=== PATIENT | male | born 1945 ===

== ENCOUNTER 2017-11-23 15:23 | Inpatient (IN) | payer MEDICARE, OTHER ==
--- NOTE | 2017-11-23 16:34 | RAD ---
Date of service: 11/23/2017 PROCEDURE: CHEST RADIOGRAPH, 1 VIEW HISTORY: Detox/Psy COMPARISON: None available. FINDINGS: LUNGS: Clear. PLEURA: No pneumothorax or pleural fluid seen. CARDIOVASCULAR: Atherosclerotic aortic calcifications. Cardiomediastinal silhouette enlarged. OSSEOUS STRUCTURES: Degenerative changes. VISUALIZED UPPER ABDOMEN: Normal. OTHER FINDINGS: None. IMPRESSION: No active disease.
--- NOTE | 2017-11-23 17:21 | C.PDOC ---
History Of Present Illness 72 y/o male,w/PMhx of dementia, brought to ER from shelter for evaluation of agitation. Patient denies having other complaints. Of note, HPI is limited because patient has dementia. Time Seen by Provider: 11/23/17 15:46 Chief Complaint (Nursing): Psychiatric Evaluation History Per: Patient History/Exam Limitations: clinical condition Onset/Duration Of Symptoms: Days Current Symptoms Are (Timing): Still Present Severity: Moderate Past Medical History Reviewed: Historical Data, Nursing Documentation, Vital Signs Vital Signs: Last Vital Signs Temp 97.6 F 11/23/17 16:14 Pulse 126 H 11/23/17 16:14 Resp 20 11/23/17 16:14 BP 98/71 L 11/23/17 16:14 Pulse Ox 100 11/23/17 18:14 - Medical History PMH: Anemia Surgical History: No Surg Hx Family History: States: No Known Family Hx - Social History Hx Alcohol Use: No Hx Substance Use: No - Immunization History Hx Tetanus Toxoid Vaccination: No Hx Influenza Vaccination: No Review Of Systems Review Of Systems: ROS cannot be obtained secondary to pt's inabilty to answer questions. Physical Exam - Physical Exam Appears: Other (alert, not oriented x3) Skin: Normal Color, Warm, Dry Head: Atraumatic, Normacephalic Eye(s): bilateral: Normal Inspection Nose: Normal Oral Mucosa: Moist Neck: Supple Chest: Symmetrical Cardiovascular: Rhythm Regular Respiratory: Normal Breath Sounds, No Rales, No Rhonchi, No Wheezing Gastrointestinal/Abdominal: Normal Exam, Soft, No Tenderness, No Guarding, No Rebound Neurological/Psych: Other (alert, not oriented x3) ED Course And Treatment - Laboratory Results Result Diagrams: 11/23/17 17:29 11/23/17 17:29 ECG: Interpreted By Me, Viewed By Me ECG Rhythm: Atrial Fibrillation Interpretation Of ECG: Afib with normal intervals, normal axises, and non- specific ST/ T wave changes Rate From EC O2 Sat by Pulse Oximetry: 100 (RA) Pulse Ox Interpretation: Normal - Radiology CXR: Interpreted by Me, Viewed By Me CXR Interpretation: Yes: No Acute Disease Medical Decision Making Medical Decision Making: Assessment: Aggressive Behavior Plan: --Labs --UA --EKG --CXR --CT- Head Disposition Discussed With : Reza Hernandes Doctor Will See Patient In The: Hospital Counseled Patient/Family Regarding: Studies Performed, Diagnosis - Disposition Disposition: HOSPITALIZED Disposition Time: 18:13 Condition: FAIR - Clinical Impression Clinical Impression: Change in mental status, UTI (urinary tract infection) - Scribe Statement The provider has reviewed the documentation as recorded by the Scribe Dharmesh Reddy Provider Attestation: All medical record entries made by the Scribe were at my direction and personally dictated by me. I have reviewed the chart and agree that the record accurately reflects my personal performance of the history, physical exam, medical decision making, and the department course for this patient. I have also personally directed, reviewed, and agree with the discharge instructions and disposition.
[2017-11-23 17:35] LABS: BASO # 0.1 K/uL (0.0-0.2); EOS # 0.1 K/uL (0.0-0.7); EOS % 1.7 % (0.0-4.0); HEMOGLOBIN 9.3 g/dL (12.0-18.0); LYMPH # 1.4 K/uL (1.0-4.3); LYMPH % 22.9 % (20.0-40.0); MEAN CELL VOLUME 86.1 fL (80.0-94.0); MEAN CORPUSCULAR HEMOGLOBIN 27.6 pg (27.0-31.0); MEAN PLATELET VOLUME 6.6 fL (7.2-11.7); MONO # 0.7 K/uL (0.0-0.8); MONO % 11.3 % (0.0-10.0); NEUT # 3.7 K/uL (1.8-7.0); NEUT % 63.1 % (50.0-75.0); NRBC % 0.1 % (0.0-2.0); RBC 3.39 Mil/uL (4.40-5.90); RED CELL DISTRIBUTION WIDTH 14.5 % (11.5-14.5); WHITE BLOOD COUNT 5.9 K/uL (4.8-10.8)
[2017-11-23 17:56] LABS: SQUAMOUS EPITHIAL 3 /hpf (0-5); URINE BILIRUBIN NEGATIVE (NEGATIVE); URINE BLOOD 2+ (NEGATIVE); URINE CLARITY Turbid (Clear); URINE COLOR Yellow (YELLOW); URINE GLUCOSE (UA) NORMAL (Normal); URINE LEUKOCYTE ESTERASE 3+ Leu/uL (Negative); URINE PROTEIN 2+ mg/dL (NEGATIVE); URINE UROBILINOGEN NORMAL mg/dL (0.2-1.0); WBC CLUMPS MANY /hpf
[2017-11-23 18:10] LABS: ALBUMIN 4.1 g/dL (3.5-5.0); ALT/SGPT 22 U/L (21-72); AST/SGOT 17 U/L (17-59); BLOOD UREA NITROGEN 77 mg/dL (9-20); CALCIUM 9.3 mg/dl (8.6-10.4); GFR AFRICAN-AMERICAN 16; GFR NON-AFRICAN AMERICAN 13
[2017-11-23 18:16] LABS: BARBITURATES, UR NEGATIVE (NEGATIVE); BENZODIAZEPINES, UR NEGATIVE (NEGATIVE); OPIATES, UR NEGATIVE (NEGATIVE); PHENCYCLIDINE, UR NEGATIVE (NEGATIVE)
--- NOTE | 2017-11-23 18:18 | CT ---
Date of service: 11/23/2017 PROCEDURE: CT HEAD WITHOUT CONTRAST. HISTORY: dizziness COMPARISON: None available. TECHNIQUE: Axial computed tomography images were obtained through the head/brain without intravenous contrast. Coronal and sagittal reconstructed images. Radiation dose: Total exam DLP = 1036.70 mGy-cm. This CT exam was performed using one or more of the following dose reduction techniques: Automated exposure control, adjustment of the mA and/or kV according to patient size, and/or use of iterative reconstruction technique. FINDINGS: HEMORRHAGE: No intracranial hemorrhage. BRAIN: No mass effect or edema. Cortical and cerebellar atrophy, periventricular small vessel disease. Small discrete infarcts 2 left cerebellar hemisphere, mesial temporal region on the left, internal capsule on the right. VENTRICLES: Unremarkable. No hydrocephalus. CALVARIUM: Unremarkable. PARANASAL SINUSES: Unremarkable as visualized. No significant inflammatory changes. MASTOID AIR CELLS: Unremarkable as visualized. No inflammatory changes. OTHER FINDINGS: None. IMPRESSION: No acute intracranial abnormalities. No significant findings to account for the clinical presentation. Additional benign and/or incidental findings described above.
[2017-11-23] MEDS ORDERED: Dextrose 50% SYRINGE Inj (50 ml) IV STA (18:23)
[2017-11-23] MEDS ORDERED: (Novolin R) Insulin Human Regular 100 units/ml vial IV ONE (18:23)
[2017-11-23] MEDS ORDERED: Calcium Gluconate 4.65 mEq/10 ml Inj IVP ONE (18:23)
[2017-11-23] MEDS ORDERED: Sod Polystyrene Sulf 15 gm/60 ml Susp PO ONE (18:23)
[2017-11-23] MEDS ORDERED: Calcium Gluconate 4.65 mEq/10 ml Inj ONE (18:50)
[2017-11-23] MEDS ORDERED: (Novolin R) Insulin Human Regular 100 units/ml vial ONE (18:50)
[2017-11-23] MEDS ORDERED: Dextrose 50% SYRINGE Inj (50 ml) ONE (18:51)
[2017-11-23] MEDS ORDERED: cefTRIAXone IV 1 gm in Dextros 50 ML IVPB ONE (18:58)
[2017-11-23] MEDS ORDERED: Sod Polystyrene Sulf 15 gm/60 ml Susp ONE (19:06)
--- NOTE | 2017-11-23 22:39 | CP.PCM.HP ---
Past Patient History - Past Social History Smoking Status: unknown - NEUROLOGICAL Other/Comment: AMS, Convulsions,Dementia - ENDOCRINE/METABOLIC Other/Comment: hyperglycemia, - HEMATOLOGICAL/ONCOLOGICAL Hx Anemia: Yes - PSYCHIATRIC Hx Substance Use: No - SURGICAL HISTORY Other/Comment: unable to obtain informations - ANESTHESIA Hx Anesthesia: No Hx Anesthesia Reactions: No Meds Allergies/Adverse Reactions: Allergies Allergy/AdvReac Type Severity Reaction Status Date / Time No Known Allergies Allergy Unverified 11/23/17 15:49 Results - Vital Signs Recent Vital Signs: Last Vital Signs Temp 36.3 F L 11/23/17 22:15 Pulse 86 11/23/17 22:15 Resp 18 11/23/17 22:15 BP 131/63 11/23/17 22:15 Pulse Ox 96 11/23/17 22:15 - Labs Result Diagrams: 11/23/17 17:29 11/23/17 17:29 Labs: Laboratory Results - last 24 hr 11/23/17 11/23/17 11/23/17 17:29 17:29 17:29 WBC 5.9 RBC 3.39 L Hgb 9.3 L Hct 29.2 L MCV 86.1 MCH 27.6 MCHC 32.0 L RDW 14.5 Plt Count 304 MPV 6.6 L Neut % (Auto) 63.1 Lymph % (Auto) 22.9 [place] % (Auto) 11.3 H Eos % (Auto) 1.7 Baso % (Auto) 1.0 Neut # (Auto) 3.7 Lymph # (Auto) 1.4 [place] # (Auto) 0.7 Eos # (Auto) 0.1 Baso # (Auto) 0.1 Sodium 140 Potassium 6.3 H* Chloride 107 Carbon Dioxide 17 L Anion Gap 23 H BUN 77 H Creatinine 4.5 H Est GFR ( Amer) 16 Est GFR (Non-Af Amer) 13 POC Glucose (mg/dL) Random Glucose 158 H Calcium 9.3 Total Bilirubin 0.4 AST 17 ALT 22 Alkaline Phosphatase 126 Troponin I 0.0120 Total Protein 8.3 Albumin 4.1 Globulin 4.2 H Albumin/Globulin Ratio 1.0 Urine Color Urine Clarity Urine pH Ur Specific [place] Urine Protein Urine Glucose (UA) Urine Ketones Urine Blood Urine Nitrate Urine Bilirubin Urine Urobilinogen Ur Leukocyte Esterase Urine WBC (Auto) Urine RBC (Auto) Urine WBC Clumps (Auto) Ur Squamous Epith Cells Urine Opiates Screen Urine Methadone Screen Ur Barbiturates Screen Valproic Acid 11.5 L Ur Phencyclidine Scrn Ur Amphetamines Screen U Benzodiazepines Scrn U Oth Cocaine Metabols U Cannabinoids Screen Alcohol, Quantitative < 10 11/23/17 11/23/17 11/23/17 17:48 17:48 19:30 WBC RBC Hgb Hct MCV MCH MCHC RDW Plt Count MPV Neut % (Auto) Lymph % (Auto) [place] % (Auto) Eos % (Auto) Baso % (Auto) Neut # (Auto) Lymph # (Auto) [place] # (Auto) Eos # (Auto) Baso # (Auto) Sodium Potassium Chloride Carbon Dioxide Anion Gap BUN Creatinine Est GFR ( Amer) Est GFR (Non-Af Amer) POC Glucose (mg/dL) 194 H Random Glucose Calcium Total Bilirubin AST ALT Alkaline Phosphatase Troponin I Total Protein Albumin Globulin Albumin/Globulin Ratio Urine Color Yellow Urine Clarity Turbid Urine pH 6.0 Ur Specific [place] 1.011 Urine Protein 2+ H Urine Glucose (UA) Normal Urine Ketones Negative Urine Blood 2+ H Urine Nitrate Negative Urine Bilirubin Negative Urine Urobilinogen Normal Ur Leukocyte Esterase 3+ H Urine WBC (Auto) 5922 H Urine RBC (Auto) 15 H Urine WBC Clumps (Auto) Many H Ur Squamous Epith Cells 3 Urine Opiates Screen Negative Urine Methadone Screen Negative Ur Barbiturates Screen Negative Valproic Acid Ur Phencyclidine Scrn Negative Ur Amphetamines Screen Negative U Benzodiazepines Scrn Negative U Oth Cocaine Metabols Negative U Cannabinoids Screen Negative Alcohol, Quantitative
[2017-11-24 00:57] LABS: ALBUMIN 4.1 g/dL (3.5-5.0); CALCIUM 9.4 mg/dl (8.6-10.4)
[2017-11-24] MEDS ORDERED: Enoxaparin 40 mg Syringe SC SCH (10:00)
--- NOTE | 2017-11-24 11:11 | PCM.PSYCH ---
Initial Psychiatric Evaluation - Initial Psychiatric Evaluation Type of Admission: Voluntary Legal Status: Capacity History of Present Illness and Precipitating Events: Patient is a 72 year old male that was brought to the hospital yesterday from the [facility] because of agitation. Psychiatry was consulted for patient's change in mental status. The patient was seen at bedside with a staff member who translated into Serbian. A mini mental status exam was attempted however the patient did not respond to the questions. The patient repeatedly kept asking for cigarettes in response to questioning. He is not oriented to place and time. The patient was not able to provide any history as a result. As per staff the patient has been agitated and irritated. He was not able to feed himself and is currently assigned to a one to one because of fall risk. The staff informed that the patient has a UTI and is being treated. Current Medications: Active Medications Generic Name Dose Route Start Last Admin Trade Name Freq PRN Reason Stop Dose Admin Diphenhydramine HCl 25 mg 11/24/17 02:19 Benadryl IVP Q8 PRN Agitation Heparin Sodium (Porcine) 5,000 units 11/24/17 10:00 11/24/17 10:40 Heparin SC 5,000 units Q12 NEL Administration Ceftriaxone Sodium 1 gm/ 100 mls @ 100 mls/hr 11/24/17 10:00 11/24/17 10:42 Sodium Chloride IVPB 100 mls/hr DAILY NEL Administration Protocol Insulin Human Regular 0 unit 11/24/17 11:30 Novolin R SC ACHS NEL Protocol Lorazepam 1 mg 11/24/17 01:58 11/24/17 02:14 Ativan IVP 1 mg Q8H PRN Administration Anxiety Past Psychiatric History - Past Psychiatric History Pertinent Medical Hx (Current Medical&Sleep Prob, Allergies): Allergies Allergy/AdvReac Type Severity Reaction Status Date / Time No Known Allergies Allergy Unverified 11/23/17 15:49 Acetaminophen [Tylenol] 11/24/17 Divalproex [Depakote Sprinkles] 200 mg PO HS 11/24/17 Famotidine [Pepcid] 11/24/17 Insulin Detemir [Levemir] 11/24/17 Insulin Human Regular [HumuLIN R] 100 units SC STAT 11/24/17 LORazepam [Ativan] 1 mg PO 11/24/17 Lactobacillus Rhamnosus GG [Culturelle] 11/24/17 Magnesium Hydroxide [Milk Of Magnesia] 11/24/17 Metoprolol Tartrate [Lopressor] 1 tab PO Q12 11/24/17 Mirtazapine [Remeron] 1 PO DAILY 11/24/17 Risperidone [Risperdal] 11/24/17 Tamsulosin [Flomax] 0.4 mg PO DAILY 11/24/17 Ubidecarenone [Coenzyme Q-10] 200 mg PO 11/24/17 metFORMIN [glucOPHAGE] 11/24/17 Review of Systems - Review of Systems Systems not reviewed;Unavailable: Dementia Mental Status Examination - Affect Affect: Flat - Motor Activity Motor Activity: Psychomotor Retardation - Reliability in Providing Information Reliability in Providing Information: Poor, due to cognitve impairment - Mood Mood: Depressed - Cognitive Functions Orientation: Person Sensorium: Lethargic Estimate of Intelligence: Below average Judgement: Imparied, as evidence by: Lack of insight into illness - Risk Risk: Falls, Diminished functioning DSM 5 DX - DSM 5 DSM 5 Diagnosis: Acute altered mental status Dementia - Recommended/Plan of Treatment Treatment Recommendations and Plan of Treatment: Start Depakote 125 mg BID Ativan 1 mg Q8 Mirtazapine 7.5 mg Risperdal 1 mg Monitor patient's mental status Continue antibiotic treatment of UTI
[2017-11-24] MEDS ORDERED: (Novolin R) Insulin Human Regular 100 units/ml vial SC SCH (11:30)
[2017-11-24] MEDS ORDERED: Dextrose 50% SYRINGE Inj (50 ml) IV PRN (13:34)
[2017-11-24] MEDS ORDERED: Glucagon Recombinant 1 mg Inj IM PRN (13:34)
[2017-11-24] MEDS: (Novolog) Insulin Aspart, Recombinant 100 u/ml 10 ml vial SC SCH ×2 (17:14→22:13)
[2017-11-24] MEDS: Divalproex 125 mg Sprinkle Capsule PO SCH (18:04)
--- NOTE | 2017-11-24 20:49 | CP.PCM.PN ---
Subjective - Date & Time of Evaluation Date of Evaluation: 11/24/17 Time of Evaluation: 11:00 - Subjective Subjective: clinically same Objective - Vital Signs/Intake and Output Vital Signs (last 24 hours): Temp Pulse Resp BP Pulse Ox 98.1 F 93 H 20 109/74 100 11/24/17 07:00 11/24/17 07:55 11/24/17 07:00 11/24/17 18:07 11/24/17 07:00 Intake and Output: 11/24/17 11/25/17 18:59 06:59 Intake Total 460 Balance 460 - Medications Medications: Current Medications Acetaminophen (Tylenol 325mg Tab) 650 mg PO Q6 PRN PRN Reason: Pain, Mild (1-3) Dextrose (Dextrose 50% Inj) 0 ml IV STAT PRN; Protocol PRN Reason: Hypoglycemia Protocol Dextrose (Glutose 15) 15 gm PO ONCE PRN; Protocol PRN Reason: Hypoglycemia Protocol Diphenhydramine HCl (Benadryl) 25 mg IVP Q8 PRN PRN Reason: Agitation Divalproex Sodium (Depakote Sprinkles) 125 mg PO BID [facility] Last Admin: 11/24/17 18:04 Dose: 125 mg Famotidine (Pepcid) 20 mg PO DAILY [facility] Glucagon (Glucagen Diagnostic Kit) 1 mg IM STAT PRN; Protocol PRN Reason: Hypoglycemia Protocol Heparin Sodium (Porcine) (Heparin) 5,000 units SC Q12 [facility] Last Admin: 11/24/17 10:40 Dose: 5,000 units Ceftriaxone Sodium 1 gm/ (Sodium Chloride) 100 mls @ 100 mls/hr IVPB DAILY [facility] PRN Reason: Protocol Last Admin: 11/24/17 10:42 Dose: 100 mls/hr Dextrose (Dextrose 5% In Water 1000 Ml) 1,000 mls @ 0 mls/hr IV .Q0M PRN; Protocol; Per Protocol PRN Reason: Hypoglycemia Protocol Insulin Aspart (Novolog) 0 unit SC ACHS [facility] PRN Reason: Protocol Last Admin: 11/24/17 17:14 Dose: Not Given Insulin Glargine (Lantus) 15 unit SC HS [facility] Lorazepam (Ativan) 1 mg IVP Q8H PRN PRN Reason: Anxiety Last Admin: 11/24/17 15:01 Dose: 1 mg Metoprolol Tartrate (Lopressor) 25 mg PO BID [facility] Last Admin: 11/24/17 18:07 Dose: 25 mg Mirtazapine (Remeron) 7.5 mg PO HS NEL Risperidone (Risperdal Tab) 1 mg PO DAILY NEL Tamsulosin HCl (Flomax) 0.4 mg PO DAILY [facility] - Labs Labs: 11/23/17 17:29 11/23/17 23:18 - Constitutional Appears: Well - Head Exam Head Exam: ATRAUMATIC, NORMAL INSPECTION, NORMOCEPHALIC - Eye Exam Eye Exam: EOMI, Normal appearance, PERRL Pupil Exam: NORMAL ACCOMODATION, PERRL - ENT Exam ENT Exam: Mucous Membranes Moist, Normal Exam - Neck Exam Neck Exam: Full ROM, Normal Inspection. absent: Lymphadenopathy - Respiratory Exam Respiratory Exam: Decreased Breath Sounds - Cardiovascular Exam Cardiovascular Exam: REGULAR RHYTHM, +S1, +S2 - GI/Abdominal Exam GI & Abdominal Exam: Soft, Diminished Bowel Sounds - Rectal Exam Rectal Exam: Deferred Assessment and Plan - Assessment and Plan (Free Text) Plan: gram neg prudence id ending on rocephin as ordered
[2017-11-24] MEDS ORDERED: Divalproex 125 mg Sprinkle Capsule PO SCH (22:00)
[2017-11-24] MEDS: (Lantus) Insulin Glargine, Recombinant SC SCH (22:24)
[2017-11-25] MEDS: (Novolog) Insulin Aspart, Recombinant 100 u/ml 10 ml vial SC SCH ×4 (07:20→21:45)
[2017-11-25 08:50] LABS: BASO # 0.1 K/uL (0.0-0.2); BASO % 0.9 % (0.0-2.0); EOS # 0.2 K/uL (0.0-0.7); EOS % 2.4 % (0.0-4.0); HEMOGLOBIN 10.8 g/dL (12.0-18.0); LYMPH % 15.1 % (20.0-40.0); MEAN CELL VOLUME 84.9 fL (80.0-94.0); MEAN CORPUSCULAR HEMOGLOBIN 28.5 pg (27.0-31.0); MEAN CORPUSCULAR HGB CONC 33.6 g/dL (33.0-37.0); MEAN PLATELET VOLUME 7.2 fL (7.2-11.7); MONO # 0.7 K/uL (0.0-0.8); MONO % 10.1 % (0.0-10.0); NEUT # 4.9 K/uL (1.8-7.0); NEUT % 71.5 % (50.0-75.0); RBC 3.79 Mil/uL (4.40-5.90); RED CELL DISTRIBUTION WIDTH 14.1 % (11.5-14.5); WHITE BLOOD COUNT 6.9 K/uL (4.8-10.8)
[2017-11-25 09:04] LABS: CALCIUM 9.3 mg/dl (8.6-10.4)
--- NOTE | 2017-11-25 12:20 | CARD ---
APPROVED REPORT Date of service: 11/23/2017 EKG Measurement Heart [id number] <Conclusion> Atrial flutter with variable AV block Nonspecific ST and T wave abnormality Abnormal ECG
[2017-11-25] MEDS: Divalproex 125 mg Sprinkle Capsule PO SCH ×2 (12:50→19:11)
--- NOTE | 2017-11-25 14:31 | CP.PCM.PN ---
Subjective - Date & Time of Evaluation Date of Evaluation: 11/25/17 Time of Evaluation: 11:30 - Subjective Subjective: clinically same Objective - Vital Signs/Intake and Output Vital Signs (last 24 hours): Temp Pulse Resp BP Pulse Ox 97.7 F 120 H 18 102/84 99 11/25/17 07:30 11/25/17 11:36 11/25/17 07:30 11/25/17 11:38 11/25/17 07:30 Intake and Output: 11/25/17 11/25/17 06:59 18:59 Intake Total 400 Balance 400 - Medications Medications: Current Medications Acetaminophen (Tylenol 325mg Tab) 650 mg PO Q6 PRN PRN Reason: Pain, Mild (1-3) Dextrose (Dextrose 50% Inj) 0 ml IV STAT PRN; Protocol PRN Reason: Hypoglycemia Protocol Dextrose (Glutose 15) 15 gm PO ONCE PRN; Protocol PRN Reason: Hypoglycemia Protocol Diphenhydramine HCl (Benadryl) 25 mg IVP Q8 PRN PRN Reason: Agitation Divalproex Sodium (Depakote Sprinkles) 125 mg PO BID [facility] Last Admin: 11/25/17 12:50 Dose: 125 mg Famotidine (Pepcid) 20 mg PO DAILY [facility] Last Admin: 11/25/17 11:38 Dose: 20 mg Glucagon (Glucagen Diagnostic Kit) 1 mg IM STAT PRN; Protocol PRN Reason: Hypoglycemia Protocol Heparin Sodium (Porcine) (Heparin) 5,000 units SC Q12 [facility] Last Admin: 11/25/17 11:39 Dose: 5,000 units Ceftriaxone Sodium 1 gm/ (Sodium Chloride) 100 mls @ 100 mls/hr IVPB DAILY [facility] PRN Reason: Protocol Last Admin: 11/25/17 11:39 Dose: 100 mls/hr Dextrose (Dextrose 5% In Water 1000 Ml) 1,000 mls @ 0 mls/hr IV .Q0M PRN; Protocol; Per Protocol PRN Reason: Hypoglycemia Protocol Insulin Aspart (Novolog) 0 unit SC ACHS [facility] PRN Reason: Protocol Last Admin: 11/25/17 11:52 Dose: Not Given Insulin Glargine (Lantus) 15 unit SC HS [facility] Last Admin: 11/24/17 22:24 Dose: 15 unit Lorazepam (Ativan) 1 mg IVP Q8H PRN PRN Reason: Anxiety Last Admin: 11/25/17 02:47 Dose: 1 mg Metoprolol Tartrate (Lopressor) 25 mg PO BID [facility] Last Admin: 11/25/17 11:38 Dose: 25 mg Mirtazapine (Remeron) 7.5 mg PO HS [facility] Last Admin: 11/24/17 21:35 Dose: 7.5 mg Risperidone (Risperdal Tab) 1 mg PO DAILY [facility] Last Admin: 11/25/17 11:38 Dose: 1 mg Tamsulosin HCl (Flomax) 0.4 mg PO DAILY [facility] Last Admin: 11/25/17 11:38 Dose: 0.4 mg - Labs Labs: 11/25/17 08:32 11/25/17 08:32 - Constitutional Appears: Well - Head Exam Head Exam: ATRAUMATIC, NORMAL INSPECTION, NORMOCEPHALIC - Eye Exam Eye Exam: EOMI, Normal appearance, PERRL Pupil Exam: NORMAL ACCOMODATION, PERRL - ENT Exam ENT Exam: Mucous Membranes Moist, Normal Exam - Neck Exam Neck Exam: Full ROM, Normal Inspection. absent: Lymphadenopathy - Respiratory Exam Respiratory Exam: Decreased Breath Sounds - Cardiovascular Exam Cardiovascular Exam: REGULAR RHYTHM, +S1, +S2 - GI/Abdominal Exam GI & Abdominal Exam: Soft, Diminished Bowel Sounds - Rectal Exam Rectal Exam: Deferred
--- NOTE | 2017-11-25 14:39 | CP.PCM.CON ---
History of Present Illness - History of Present Illness History of Present Illness: dictated Past Patient History - Past Medical History & Family History Past Medical History?: Yes - Past Social History Smoking Status: Unknown If Ever Smoked - PULMONARY Hx Respiratory Disorders: Yes - NEUROLOGICAL Hx Neurological Disorder: Yes Hx Dementia: Yes Other/Comment: AMS, Convulsions,Dementia - HEENT Hx HEENT Problems: No - RENAL Hx Chronic Kidney Disease: No - ENDOCRINE/METABOLIC Hx Endocrine Disorders: Yes Hx Diabetes Mellitus Type 2: Yes Other/Comment: hyperglycemia, - HEMATOLOGICAL/ONCOLOGICAL Hx Blood Disorders: Yes Hx Anemia: Yes - INTEGUMENTARY Hx Dermatological Problems: No - MUSCULOSKELETAL/RHEUMATOLOGICAL Hx Falls: No - GASTROINTESTINAL Hx Gastrointestinal Disorders: No - GENITOURINARY/GYNECOLOGICAL Hx Genitourinary Disorders: No - PSYCHIATRIC Hx Psychophysiologic Disorder: No Hx Substance Use: No - SURGICAL HISTORY Hx Surgeries: No Other/Comment: unable to obtain informations - ANESTHESIA Hx Anesthesia: No Hx Anesthesia Reactions: No Meds Allergies/Adverse Reactions: Allergies Allergy/AdvReac Type Severity Reaction Status Date / Time No Known Allergies Allergy Unverified 11/23/17 15:49 - Medications Medications: Current Medications Acetaminophen (Tylenol 325mg Tab) 650 mg PO Q6 PRN PRN Reason: Pain, Mild (1-3) Dextrose (Dextrose 50% Inj) 0 ml IV STAT PRN; Protocol PRN Reason: Hypoglycemia Protocol Dextrose (Glutose 15) 15 gm PO ONCE PRN; Protocol PRN Reason: Hypoglycemia Protocol Diphenhydramine HCl (Benadryl) 25 mg IVP Q8 PRN PRN Reason: Agitation Divalproex Sodium (Depakote Sprinkles) 125 mg PO BID [facility] Last Admin: 11/25/17 12:50 Dose: 125 mg Famotidine (Pepcid) 20 mg PO DAILY NEL Last Admin: 11/25/17 11:38 Dose: 20 mg Glucagon (Glucagen Diagnostic Kit) 1 mg IM STAT PRN; Protocol PRN Reason: Hypoglycemia Protocol Heparin Sodium (Porcine) (Heparin) 5,000 units SC Q12 NEL Last Admin: 11/25/17 11:39 Dose: 5,000 units Ceftriaxone Sodium 1 gm/ (Sodium Chloride) 100 mls @ 100 mls/hr IVPB DAILY NEL PRN Reason: Protocol Last Admin: 11/25/17 11:39 Dose: 100 mls/hr Dextrose (Dextrose 5% In Water 1000 Ml) 1,000 mls @ 0 mls/hr IV .Q0M PRN; Protocol; Per Protocol PRN Reason: Hypoglycemia Protocol Insulin Aspart (Novolog) 0 unit SC ACHS [facility] PRN Reason: Protocol Last Admin: 11/25/17 11:52 Dose: Not Given Insulin Glargine (Lantus) 15 unit SC HS [facility] Last Admin: 11/24/17 22:24 Dose: 15 unit Lorazepam (Ativan) 1 mg IVP Q8H PRN PRN Reason: Anxiety Last Admin: 11/25/17 02:47 Dose: 1 mg Metoprolol Tartrate (Lopressor) 25 mg PO BID [facility] Last Admin: 11/25/17 11:38 Dose: 25 mg Mirtazapine (Remeron) 7.5 mg PO HS [facility] Last Admin: 11/24/17 21:35 Dose: 7.5 mg Risperidone (Risperdal Tab) 1 mg PO DAILY [facility] Last Admin: 11/25/17 11:38 Dose: 1 mg Tamsulosin HCl (Flomax) 0.4 mg PO DAILY [facility] Last Admin: 11/25/17 11:38 Dose: 0.4 mg Results - Vital Signs Recent Vital Signs: Last Vital Signs Temp 97.7 F 11/25/17 07:30 Pulse 120 H 11/25/17 11:36 Resp 18 11/25/17 07:30 BP 102/84 11/25/17 11:38 Pulse Ox 99 11/25/17 07:30 - Labs Result Diagrams: 11/25/17 08:32 11/25/17 08:32 Labs: Laboratory Results - last 24 hr 11/24/17 11/25/17 11/25/17 21:33 06:20 08:32 WBC 6.9 RBC 3.79 L Hgb 10.8 L Hct 32.2 L MCV 84.9 MCH 28.5 MCHC 33.6 RDW 14.1 Plt Count 319 MPV 7.2 Neut % (Auto) 71.5 Lymph % (Auto) 15.1 L [place] % (Auto) 10.1 H Eos % (Auto) 2.4 Baso % (Auto) 0.9 Neut # (Auto) 4.9 Lymph # (Auto) 1.0 [place] # (Auto) 0.7 Eos # (Auto) 0.2 Baso # (Auto) 0.1 Sodium Potassium Chloride Carbon Dioxide Anion Gap BUN Creatinine Est GFR ( Amer) Est GFR (Non-Af Amer) POC Glucose (mg/dL) 183 H 137 H Random Glucose Calcium 11/25/17 11/25/17 08:32 11:47 WBC RBC Hgb Hct MCV MCH MCHC RDW Plt Count MPV Neut % (Auto) Lymph % (Auto) [place] % (Auto) Eos % (Auto) Baso % (Auto) Neut # (Auto) Lymph # (Auto) [place] # (Auto) Eos # (Auto) Baso # (Auto) Sodium 144 Potassium 5.6 H Chloride 113 H Carbon Dioxide 16 L Anion Gap 22 H BUN 66 H Creatinine 2.4 H Est GFR ( Amer) 32 Est GFR (Non-Af Amer) 27 POC Glucose (mg/dL) 142 H Random Glucose 136 H Calcium 9.3
[2017-11-25] MEDS ORDERED: Vancomycin 1 gm/NS 200 ml 1 GM/200 ML BAG IVPB SCH (15:00)
[2017-11-25] MEDS ORDERED: DAPTOMYCIN IV SCH (15:45)
[2017-11-25] MEDS ORDERED: SODIUM CHLORIDE 0.9% IV SCH (15:45)
[2017-11-25] MEDS: Ciprofloxacin 400mg/200ml D5W 400 MG/200 ML BAG IVPB SCH (17:03)
[2017-11-25] MEDS ORDERED: Sod Polystyrene Sulf 15 gm/60 ml Susp PO ONE ×2 (18:28→18:42)
--- NOTE | 2017-11-25 18:30 | PQF ---
PROVIDER RESPONSE TEXT: Acute Kidney Failure with Acute Tubular Necrosis REVIEWER QUERY TEXT: Kidney Failure, Acute - Associated Conditions Please specify the associated condition (including probable or suspected) Such as: -- Acute Tubular Necrosis -- Cortical Necrosis -- Papillary or Medullary Necrosis -- Traumatic Anuria -- None are likely contributors -- Other, please specify The patient's Clinical Indicators include: ?72 y/o male, brought to ER for agitation. Of note, HPI is limited because patient has dementia?. BUN: 77 - Crea: 4.5 - GFR: 16 Creat: 4.5/3.9/2.4 Please consider verify and document JOY as below, if agree. Query created by: Adolph Bello on 11/25/2017 11:38 AM Electronically signed by: Reza STAHL 11/25/2017 6:27 PM
[2017-11-25] MEDS: (Lantus) Insulin Glargine, Recombinant SC SCH (21:51)
--- NOTE | 2017-11-26 08:18 | CON ---
DATE: 11/25/2017 INFECTIOUS DISEASE CONSULT REQUESTED BY: Mir Hernandes MD HISTORY OF PRESENT ILLNESS: The patient is a 72-year-old male. He comes from the care home. He is sent here because he was getting very agitated and was having change of mental status. The patient is arousable, but he does not respond to any questions. The patient is on one-to-one right now. He was seen by the Psych. He is not oriented to place or time. I am asked to see him because his blood cultures came out positive, and there is a urine culture which needs to be treated at this time. The patient is not able to give any history. Most of the history is taken from the chart. He was sent here for psych eval and has dementia. PAST MEDICAL HISTORY: Unknown. Endocrine bear, he has hyperglycemia, history of anemia. No substance abuse. He was brought here with agitation. No anesthesia. FAMILY HISTORY: Not known. SOCIAL HISTORY: Negative for smoking and drinking, but it seems he was asking for cigarettes before according to the psychiatrist's notes, so I am not sure if he smokes. So he is one-to-one at this time. ALLERGIES: NOT ALLERGIC TO ANY MEDICINE. His vitals In the ER was 36.3, 86, 18, 131/63, he had pulse of 96. Blood cultures are positive at this time and urine culture is positive. He does have a TAXUS catheter which was placed, and drug screen was done which was negative. His urine showed 2+ blood, and 5922 wbc's, so he really has a UTI. MEDICATIONS: I have placed him on Cipro at this time and daptomycin as the cultures are positive, and he is also on IV dextrose, he is not on it, but it is written. He is on Benadryl for agitation p.o. every 8 hours, on Depakote 125 mg p.o. b.i.d., famotidine (Pepcid), heparin subcu, NovoLog, Lantus, Lopressor, Remeron, Risperdal 1 mg daily. He is on tamsulosin. So he does have a history of BPH it seems. He was getting Rocephin before I saw him. PHYSICAL EXAMINATION: VITAL SIGNS: His temperature is 97.3, heart rate of 118, blood pressure 118/72, respirations are 20. GENERAL: He is confused and not responding to any questions, but he is arousable. HEENT: Head is atraumatic, normocephalic. Tongue is moist. NECK: Supple. LUNGS: Clear. No crackles or rales present. HEART: S1, S2 are regular. Tachycardia present. ABDOMEN: Soft, nontender. No guarding, no rigidity present. EXTREMITIES: Have no edema, clubbing, or cyanosis. He does have a TAXUS catheter at this time. LABORATORY DATA: White count is 6.9, hemoglobin 10.8, hematocrit 32.2, platelet count is 319. Sodium is 144, potassium is 5.6, chloride is 113, CO2 is 16, anion gap is 22, and his creatinine is 2.4. His sugar was 142, and calcium is 9.3. Cultures came out, and both blood cultures are positive for GPC, both sets, which was venous and urine has Enterobacter cloacae, and this Enterobacter cloacae was resistant to cefazolin, cefepime, Zosyn, Bactrim, and intermediate to nitrofurantoin, and is sensitive to gentamicin and Cipro, but I cannot give him any gentamicin. I have continued on Cipro and that also once a day because of his renal failure, and he also had a head CT and a chest x-ray. The chest x-ray shows no active disease. The head CT shows no acute intracranial abnormality. IMPRESSION: This patient is admitted with altered mental status, agitation, history of dementia, also has two sets of blood cultures positive. He comes from the care home. It is unclear whether they are real or contaminant. We will repeat the cultures at this time and start him on daptomycin and it seems he has no history of any surgeries that are listed, and he has no pacemaker, and he has only a peripheral intravenous. We will follow, wait for the identification and sensitivity. I have not ordered an echocardiogram at this time, but we will do so and also he has urine culture positive for Enterobacter and he has prostate hypertrophy. We will continue with Cipro intravenous. We will follow. He is diabetic, and he is on coverage. He is on heparin subcutaneous for deep venous thrombosis prophylaxis. We will follow with Dr. Mir Hernandes, and we will also order an echocardiogram since two sets are positive. We are waiting for the identification and sensitivity of the organisms. 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 Teresa Barnett MD
[2017-11-26] MEDS: (Novolog) Insulin Aspart, Recombinant 100 u/ml 10 ml vial SC SCH ×4 (08:36→21:43)
[2017-11-26] MEDS: Divalproex 125 mg Sprinkle Capsule PO SCH ×2 (11:09→18:14)
[2017-11-26] MEDS: Dextrose 5%/0.45% NS 1,000 ML IV SCH (11:12)
--- NOTE | 2017-11-26 17:21 | CP.PCM.PN ---
Subjective - Date & Time of Evaluation Date of Evaluation: 11/26/17 Time of Evaluation: 04:25 - Subjective Subjective: dictated Objective - Vital Signs/Intake and Output Vital Signs (last 24 hours): Temp Pulse Resp BP Pulse Ox 97.8 F 96 H 20 112/72 98 11/26/17 15:55 11/26/17 15:55 11/26/17 15:55 11/26/17 11:08 11/26/17 15:55 Intake and Output: 11/26/17 11/26/17 06:59 18:59 Intake Total 700 Balance 700 - Medications Medications: Current Medications Acetaminophen (Tylenol 325mg Tab) 650 mg PO Q6 PRN PRN Reason: Pain, Mild (1-3) Last Admin: 11/25/17 21:50 Dose: 650 mg Dextrose (Dextrose 50% Inj) 0 ml IV STAT PRN; Protocol PRN Reason: Hypoglycemia Protocol Dextrose (Glutose 15) 15 gm PO ONCE PRN; Protocol PRN Reason: Hypoglycemia Protocol Diphenhydramine HCl (Benadryl) 25 mg IVP Q8 PRN PRN Reason: Agitation Divalproex Sodium (Depakote Sprinkles) 125 mg PO BID [facility] Last Admin: 11/26/17 11:09 Dose: 125 mg Famotidine (Pepcid) 20 mg PO DAILY [facility] Last Admin: 11/26/17 11:09 Dose: 20 mg Glucagon (Glucagen Diagnostic Kit) 1 mg IM STAT PRN; Protocol PRN Reason: Hypoglycemia Protocol Heparin Sodium (Porcine) (Heparin) 5,000 units SC Q12 [facility] Last Admin: 11/26/17 11:09 Dose: 5,000 units Dextrose (Dextrose 5% In Water 1000 Ml) 1,000 mls @ 0 mls/hr IV .Q0M PRN; Protocol; Per Protocol PRN Reason: Hypoglycemia Protocol Ciprofloxacin (Cipro 400mg/200ml Dsw) 400 mg in 200 mls @ 133 mls/hr IVPB Q24H [facility] PRN Reason: Protocol Last Admin: 11/25/17 17:03 Dose: 133 mls/hr Daptomycin 468 mg/ Sodium (Chloride) 100 mls @ 100 mls/hr IV Q48H [facility] PRN Reason: Protocol Stop: 11/30/17 15:46 Last Admin: 11/25/17 18:00 Dose: 100 mls/hr Dextrose/Sodium Chloride (Dextrose 5%/0.45% Ns 1000 Ml) 1,000 mls @ 60 mls/hr IV .[id number] [facility] Last Admin: 11/26/17 11:12 Dose: 60 mls/hr Insulin Aspart (Novolog) 0 unit SC [facility] PRN Reason: Protocol Last Admin: 11/26/17 12:39 Dose: 2 unit Insulin Glargine (Lantus) 15 unit SC [facility] Last Admin: 11/25/17 21:51 Dose: 15 unit Metoprolol Tartrate (Lopressor) 25 mg PO BID [facility] Last Admin: 11/26/17 11:08 Dose: 25 mg Mirtazapine (Remeron) 7.5 mg PO [facility] Last Admin: 11/25/17 22:26 Dose: 7.5 mg Risperidone (Risperdal Tab) 1 mg PO DAILY [facility] Last Admin: 11/26/17 11:08 Dose: 1 mg Tamsulosin HCl (Flomax) 0.4 mg PO DAILY [facility] Last Admin: 11/26/17 11:09 Dose: 0.4 mg - Labs Labs: 11/25/17 08:32 11/26/17 11:05
[2017-11-26] MEDS: Ciprofloxacin 400mg/200ml D5W 400 MG/200 ML BAG IVPB SCH (18:13)
--- NOTE | 2017-11-26 20:44 | CP.PCM.PN ---
Subjective - Date & Time of Evaluation Date of Evaluation: 11/26/17 Time of Evaluation: 12:15 - Subjective Subjective: clinically same Objective - Vital Signs/Intake and Output Vital Signs (last 24 hours): Temp Pulse Resp BP Pulse Ox 97.8 F 96 H 20 113/74 98 11/26/17 15:55 11/26/17 15:55 11/26/17 15:55 11/26/17 18:13 11/26/17 15:55 - Medications Medications: Current Medications Acetaminophen (Tylenol 325mg Tab) 650 mg PO Q6 PRN PRN Reason: Pain, Mild (1-3) Last Admin: 11/25/17 21:50 Dose: 650 mg Dextrose (Dextrose 50% Inj) 0 ml IV STAT PRN; Protocol PRN Reason: Hypoglycemia Protocol Dextrose (Glutose 15) 15 gm PO ONCE PRN; Protocol PRN Reason: Hypoglycemia Protocol Diphenhydramine HCl (Benadryl) 25 mg IVP Q8 PRN PRN Reason: Agitation Divalproex Sodium (Depakote Sprinkles) 125 mg PO BID [facility] Last Admin: 11/26/17 18:14 Dose: 125 mg Famotidine (Pepcid) 20 mg PO DAILY [facility] Last Admin: 11/26/17 11:09 Dose: 20 mg Glucagon (Glucagen Diagnostic Kit) 1 mg IM STAT PRN; Protocol PRN Reason: Hypoglycemia Protocol Heparin Sodium (Porcine) (Heparin) 5,000 units SC Q12 [facility] Last Admin: 11/26/17 11:09 Dose: 5,000 units Dextrose (Dextrose 5% In Water 1000 Ml) 1,000 mls @ 0 mls/hr IV .Q0M PRN; Protocol; Per Protocol PRN Reason: Hypoglycemia Protocol Ciprofloxacin (Cipro 400mg/200ml Dsw) 400 mg in 200 mls @ 133 mls/hr IVPB Q24H [facility] PRN Reason: Protocol Last Admin: 11/26/17 18:13 Dose: 133 mls/hr Dextrose/Sodium Chloride (Dextrose 5%/0.45% Ns 1000 Ml) 1,000 mls @ 60 mls/hr IV .[id number] [facility] Last Admin: 11/26/17 11:12 Dose: 60 mls/hr Insulin Aspart (Novolog) 0 unit SC ACHS [facility] PRN Reason: Protocol Last Admin: 11/26/17 17:30 Dose: 2 unit Insulin Glargine (Lantus) 15 unit SC HS [facility] Last Admin: 11/25/17 21:51 Dose: 15 unit Metoprolol Tartrate (Lopressor) 25 mg PO BID [facility] Last Admin: 11/26/17 18:13 Dose: 25 mg Mirtazapine (Remeron) 7.5 mg PO HS [facility] Last Admin: 11/25/17 22:26 Dose: 7.5 mg Risperidone (Risperdal Tab) 1 mg PO DAILY [facility] Last Admin: 11/26/17 11:08 Dose: 1 mg Tamsulosin HCl (Flomax) 0.4 mg PO DAILY [facility] Last Admin: 11/26/17 11:09 Dose: 0.4 mg - Labs Labs: 11/25/17 08:32 11/26/17 11:05
[2017-11-26] MEDS ORDERED: Sod Polystyrene Sulf 15 gm/60 ml Susp PO ONE (21:11)
[2017-11-26] MEDS: (Lantus) Insulin Glargine, Recombinant SC SCH (22:00)
--- NOTE | 2017-11-26 22:40 | PN ---
DATE: 11/26/2017 SUBJECTIVE: The patient is confused. He remains in bed. He is comfortable otherwise. PHYSICAL EXAMINATION: VITAL SIGNS: T-max is 97.8, pulse is 96, respirations are 20, saturation is 98%. HEENT: Head is atraumatic, normocephalic. NECK: Supple. LUNGS: Clear. HEART: S1, S2 are regular. ABDOMEN: Soft, nontender. He has a [place] catheter. EXTREMITIES: Have no edema. LABORATORY DATA: Labs are noted. Labs show white count from yesterday 5.4. Creatinine is 2.5, it remains high. He had blood cultures, which grew coagulase-negative staph, probably skin contaminant. Repeat cultures are negative from 11/25/2017, which we did prior to giving two anaerobic bottles. Enterobacter was present in the urine, which we are covering with Cipro at this time, but he has renal insufficiency. He had a head CT and chest x-ray which are negative. He is on medications. ASSESSMENT AND PLAN: He has history of benign prostatic hypertrophy. He is on Flomax. So, at this time, I will continue with his probably daptomycin. Chest x-ray shows no active disease. I doubt he has coagulase-negative staphylococci causing infection at this time. We will discontinue daptomycin and continue the Cipro for the Enterobacter. We will follow. We will follow with the primary. The patient was transferred because of altered mental status, agitation, and has urinary tract infection and benign prostatic hypertrophy. He is to be followed by Psychiatry. Teresa Barnett MD
[2017-11-27] MEDS: Dextrose 5%/0.45% NS 1,000 ML IV SCH ×2 (01:40→05:40)
[2017-11-27] MEDS: (Novolog) Insulin Aspart, Recombinant 100 u/ml 10 ml vial SC SCH ×4 (07:52→22:13)
[2017-11-27] MEDS: DiphenhydrAMINE 50 mg/ml Inj IVP PRN (09:13)
[2017-11-27] MEDS: Divalproex 125 mg Sprinkle Capsule PO SCH ×2 (11:39→17:45)
[2017-11-27 12:32] LABS: CALCIUM 9.1 mg/dl (8.6-10.4)
--- NOTE | 2017-11-27 13:37 | CP.PCM.PN ---
Subjective - Date & Time of Evaluation Date of Evaluation: 11/27/17 Time of Evaluation: 01:20 - Subjective Subjective: dictated Objective - Vital Signs/Intake and Output Vital Signs (last 24 hours): Temp Pulse Resp BP Pulse Ox 97.6 F 125 H 18 126/70 100 11/27/17 08:15 11/27/17 08:15 11/27/17 08:15 11/27/17 09:09 11/27/17 08:15 Intake and Output: 11/27/17 11/27/17 06:59 18:59 Intake Total 1630 Output Total 2100 Balance -470 - Medications Medications: Current Medications Acetaminophen (Tylenol 325mg Tab) 650 mg PO Q6 PRN PRN Reason: Pain, Mild (1-3) Last Admin: 11/25/17 21:50 Dose: 650 mg Dextrose (Dextrose 50% Inj) 0 ml IV STAT PRN; Protocol PRN Reason: Hypoglycemia Protocol Dextrose (Glutose 15) 15 gm PO ONCE PRN; Protocol PRN Reason: Hypoglycemia Protocol Diphenhydramine HCl (Benadryl) 25 mg IVP Q8 PRN PRN Reason: Agitation Last Admin: 11/27/17 09:13 Dose: 25 mg Divalproex Sodium (Depakote Sprinkles) 125 mg PO BID [facility] Last Admin: 11/27/17 11:39 Dose: 125 mg Famotidine (Pepcid) 20 mg PO DAILY [facility] Last Admin: 11/27/17 09:11 Dose: 20 mg Glucagon (Glucagen Diagnostic Kit) 1 mg IM STAT PRN; Protocol PRN Reason: Hypoglycemia Protocol Dextrose (Dextrose 5% In Water 1000 Ml) 1,000 mls @ 0 mls/hr IV .Q0M PRN; Protocol; Per Protocol PRN Reason: Hypoglycemia Protocol Ciprofloxacin (Cipro 400mg/200ml Dsw) 400 mg in 200 mls @ 133 mls/hr IVPB Q24H [facility] PRN Reason: Protocol Last Admin: 11/26/17 18:13 Dose: 133 mls/hr Dextrose/Sodium Chloride (Dextrose 5%/0.45% Ns 1000 Ml) 1,000 mls @ 60 mls/hr IV .[id number] [facility] Last Admin: 11/27/17 05:40 Dose: 60 mls/hr Insulin Aspart (Novolog) 0 unit SC ACHS [facility] PRN Reason: Protocol Last Admin: 11/27/17 12:05 Dose: 2 unit Insulin Glargine (Lantus) 15 unit SC HS [facility] Last Admin: 11/26/17 22:00 Dose: 15 unit Metoprolol Tartrate (Lopressor) 25 mg PO BID [facility] Last Admin: 11/27/17 09:09 Dose: 25 mg Mirtazapine (Remeron) 7.5 mg PO HS [facility] Last Admin: 11/26/17 22:49 Dose: 7.5 mg Risperidone (Risperdal Tab) 1 mg PO DAILY [facility] Last Admin: 11/27/17 09:08 Dose: 1 mg Tamsulosin HCl (Flomax) 0.4 mg PO DAILY [facility] Last Admin: 11/27/17 09:08 Dose: 0.4 mg - Labs Labs: 11/25/17 08:32 11/27/17 12:07
--- NOTE | 2017-11-27 15:02 | CP.PCM.PN ---
Subjective - Date & Time of Evaluation Date of Evaluation: 11/27/17 Time of Evaluation: 11:00 - Subjective Subjective: clinically same Objective - Vital Signs/Intake and Output Vital Signs (last 24 hours): Temp Pulse Resp BP Pulse Ox 97.6 F 125 H 18 126/70 100 11/27/17 08:15 11/27/17 08:15 11/27/17 08:15 11/27/17 09:09 11/27/17 08:15 Intake and Output: 11/27/17 11/27/17 06:59 18:59 Intake Total 1630 Output Total 2100 Balance -470 - Medications Medications: Current Medications Acetaminophen (Tylenol 325mg Tab) 650 mg PO Q6 PRN PRN Reason: Pain, Mild (1-3) Last Admin: 11/25/17 21:50 Dose: 650 mg Dextrose (Dextrose 50% Inj) 0 ml IV STAT PRN; Protocol PRN Reason: Hypoglycemia Protocol Dextrose (Glutose 15) 15 gm PO ONCE PRN; Protocol PRN Reason: Hypoglycemia Protocol Diphenhydramine HCl (Benadryl) 25 mg IVP Q8 PRN PRN Reason: Agitation Last Admin: 11/27/17 09:13 Dose: 25 mg Divalproex Sodium (Depakote Sprinkles) 125 mg PO BID [facility] Last Admin: 11/27/17 11:39 Dose: 125 mg Famotidine (Pepcid) 20 mg PO DAILY [facility] Last Admin: 11/27/17 09:11 Dose: 20 mg Glucagon (Glucagen Diagnostic Kit) 1 mg IM STAT PRN; Protocol PRN Reason: Hypoglycemia Protocol Ciprofloxacin (Cipro 400mg/200ml Dsw) 400 mg in 200 mls @ 133 mls/hr IVPB Q24H [facility] PRN Reason: Protocol Last Admin: 11/26/17 18:13 Dose: 133 mls/hr Dextrose/Sodium Chloride (Dextrose 5%/0.45% Ns 1000 Ml) 1,000 mls @ 60 mls/hr IV .[id number] [facility] Last Admin: 11/27/17 05:40 Dose: 60 mls/hr Insulin Aspart (Novolog) 0 unit SC ACHS [facility] PRN Reason: Protocol Last Admin: 11/27/17 12:05 Dose: 2 unit Insulin Glargine (Lantus) 15 unit SC HS [facility] Last Admin: 11/26/17 22:00 Dose: 15 unit Metoprolol Tartrate (Lopressor) 25 mg PO BID [facility] Last Admin: 11/27/17 09:09 Dose: 25 mg Mirtazapine (Remeron) 7.5 mg PO HS [facility] Last Admin: 11/26/17 22:49 Dose: 7.5 mg Risperidone (Risperdal Tab) 1 mg PO DAILY [facility] Last Admin: 11/27/17 09:08 Dose: 1 mg Tamsulosin HCl (Flomax) 0.4 mg PO DAILY [facility] Last Admin: 11/27/17 09:08 Dose: 0.4 mg - Labs Labs: 11/25/17 08:32 11/27/17 12:07 - Constitutional Appears: Well - Head Exam Head Exam: ATRAUMATIC, NORMAL INSPECTION, NORMOCEPHALIC - Eye Exam Eye Exam: EOMI, Normal appearance, PERRL Pupil Exam: NORMAL ACCOMODATION, PERRL - ENT Exam ENT Exam: Mucous Membranes Moist, Normal Exam - Neck Exam Neck Exam: Full ROM, Normal Inspection. absent: Lymphadenopathy - Respiratory Exam Respiratory Exam: Decreased Breath Sounds - Cardiovascular Exam Cardiovascular Exam: REGULAR RHYTHM, +S1, +S2 - GI/Abdominal Exam GI & Abdominal Exam: Soft, Diminished Bowel Sounds - Rectal Exam Rectal Exam: Deferred
[2017-11-27] MEDS: Ciprofloxacin 400mg/200ml D5W 400 MG/200 ML BAG IVPB SCH (16:03)
--- NOTE | 2017-11-27 18:24 | PN ---
DATE: 11/27/2017 SUBJECTIVE: The patient is lying in bed. He has taken off his clothes. He is confused. He does not communicate to me or focused when I am talking to him. PHYSICAL EXAMINATION: VITAL SIGNS: Otherwise, he is afebrile. T-max is 97.6, heart rate is 125, has increased, blood pressure 104/63, respirations are 18. HEENT: Head is atraumatic and normocephalic. NECK: Supple. LUNGS: Clear. HEART: S1 and S2 regular. ABDOMEN: Soft and nontender. EXTREMITIES: Has no edema. LABORATORY DATA: White count is . There is a chemistry today, which shows BUN is 59, creatinine remains at 2.5. His blood cultures were negative with daptomycin and he has UTI for which he is getting antibiotic with his Cipro 400 once a day. We will order UA, urine, C and S if possible to repeat. ASSESSMENT AND PLAN: We will continue with Cipro at this time. He did come in with agitation and is being followed by the Psychiatry. He has renal insufficiency acute, which is chronic and he is getting intravenous fluids for that. Teresa Barnett MD
[2017-11-27] MEDS: (Lantus) Insulin Glargine, Recombinant SC SCH (22:45)
[2017-11-28] MEDS: (Novolog) Insulin Aspart, Recombinant 100 u/ml 10 ml vial SC SCH ×4 (08:00→22:14)
[2017-11-28] MEDS: Divalproex 125 mg Sprinkle Capsule PO SCH ×2 (09:56→17:50)
[2017-11-28] MEDS: DiphenhydrAMINE 50 mg/ml Inj IVP PRN (10:52)
[2017-11-28] MEDS: Dextrose 5%/0.45% NS 1,000 ML IV SCH (13:16)
--- NOTE | 2017-11-28 14:28 | CARD ---
APPROVED REPORT Date of service: 11/26/2017 EXAM: Two-dimensional and M-mode echocardiogram with Doppler and color Doppler. Other Information Quality : GoodRhythm : INDICATION Infection:Rule out subacute bacterial endocarditis 2D DIMENSIONS IVSd1.3 (0.7-1.1cm)LVDd5.0 (3.9-5.9cm) PWd1.0 (0.7-1.1cm)LVDs4.3 (2.5-4.0cm) FS (%) 13.0 %LVEF (%)27.8 (>50%) M-Mode DIMENSIONS RVDd1.63 (2.1-3.2cm)Left Atrium (MM)4.50 (2.5-4.0cm) IVSd1.32 (0.7-1.1cm)Aortic Root2.91 (2.2-3.7cm) LVDd5.17 (4.0-5.6cm)Aortic Cusp Exc.1.67 (1.5-2.0cm) PWd1.04 (0.7-1.1cm)FS (%) 13 % LVDs4.51 (2.0-3.8cm)LVEF (%)27 (>50%) Mitral Valve MV E Kvlwwicn39.9cm/sE/A ratio0.0 TDI E/Lateral E'0.0E/Medial E'0.0 Tricuspid Valve TR Peak [id number]/sTR Peak [id number] <Conclusion> tds.pt appears in a,fib, poor window. la is moderately dilated. normal size ra,rv & lv. mild concnetric lvh., severe global lv systolic dysfunciton with lvef of <20%. lv diastolic funciton is undetermined. sclerotic mitral & calcified trileaflet aortic valve. mild mr,tr with normal pulmonary systolic pressures of 15 mm of hg. no pericardial effusion seen.
[2017-11-28] MEDS: Ciprofloxacin 400mg/200ml D5W 400 MG/200 ML BAG IVPB SCH (14:50)
--- NOTE | 2017-11-28 16:50 | CP.PCM.PN ---
Subjective - Date & Time of Evaluation Date of Evaluation: 11/28/17 Time of Evaluation: 16:46 - Subjective Subjective: CHART REVIEWED. PT SEEN AND EXAMINED, COVERING DR Wade OSULLIVNA. PT CONFUSED. ROS ; UNOBTAINABLE. Objective - Vital Signs/Intake and Output Vital Signs (last 24 hours): Temp Pulse Resp BP Pulse Ox 98 F 71 20 112/74 96 11/28/17 15:00 11/28/17 15:00 11/28/17 15:00 11/28/17 15:00 11/28/17 15:00 - Medications Medications: Current Medications Acetaminophen (Tylenol 325mg Tab) 650 mg PO Q6 PRN PRN Reason: Pain, Mild (1-3) Last Admin: 11/25/17 21:50 Dose: 650 mg Dextrose (Dextrose 50% Inj) 0 ml IV STAT PRN; Protocol PRN Reason: Hypoglycemia Protocol Dextrose (Glutose 15) 15 gm PO ONCE PRN; Protocol PRN Reason: Hypoglycemia Protocol Diphenhydramine HCl (Benadryl) 25 mg IVP Q8 PRN PRN Reason: Agitation Last Admin: 11/28/17 10:52 Dose: 25 mg Divalproex Sodium (Depakote Sprinkles) 125 mg PO BID [facility] Last Admin: 11/28/17 09:56 Dose: 125 mg Famotidine (Pepcid) 20 mg PO DAILY [facility] Last Admin: 11/28/17 09:56 Dose: 20 mg Glucagon (Glucagen Diagnostic Kit) 1 mg IM STAT PRN; Protocol PRN Reason: Hypoglycemia Protocol Ciprofloxacin (Cipro 400mg/200ml Dsw) 400 mg in 200 mls @ 133 mls/hr IVPB Q24H [facility] PRN Reason: Protocol Last Admin: 11/28/17 14:50 Dose: 133 mls/hr Dextrose/Sodium Chloride (Dextrose 5%/0.45% Ns 1000 Ml) 1,000 mls @ 60 mls/hr IV .[id number] [facility] Last Admin: 11/28/17 13:16 Dose: Not Given Insulin Aspart (Novolog) 0 unit SC ACHS [facility] PRN Reason: Protocol Last Admin: 11/28/17 13:06 Dose: Not Given Insulin Glargine (Lantus) 15 unit SC HS [facility] Last Admin: 11/27/17 22:45 Dose: 15 unit Metoprolol Tartrate (Lopressor) 25 mg PO BID [facility] Last Admin: 11/28/17 09:56 Dose: 25 mg Mirtazapine (Remeron) 7.5 mg PO HS [facility] Last Admin: 11/27/17 22:45 Dose: 7.5 mg Risperidone (Risperdal Tab) 1 mg PO DAILY [facility] Last Admin: 11/28/17 09:56 Dose: 1 mg Tamsulosin HCl (Flomax) 0.4 mg PO DAILY [facility] Last Admin: 11/28/17 09:55 Dose: 0.4 mg - Labs Labs: 11/25/17 08:32 11/27/17 12:07 - Constitutional Appears: Agitated, Chronically Ill - Head Exam Head Exam: ATRAUMATIC, NORMOCEPHALIC - Eye Exam Eye Exam: EOMI, Normal appearance - Neck Exam Neck Exam: Normal Inspection - Respiratory Exam Respiratory Exam: Decreased Breath Sounds - Cardiovascular Exam Cardiovascular Exam: RRR, +S1, +S2 - GI/Abdominal Exam GI & Abdominal Exam: Soft - Rectal Exam Rectal Exam: Deferred - Extremities Exam Extremities Exam: absent: Pedal Edema - Neurological Exam Neurological Exam: absent: Oriented x3 Additional comments: MOVES EXT. - Psychiatric Exam Psychiatric exam: Agitated Assessment and Plan (1) JOY (acute kidney injury) Status: Acute (2) Anemia Status: Acute (3) Dementia Status: Acute (4) Afib Status: Acute - Assessment and Plan (Free Text) Assessment: RESP STATUS UNLABORED, CONT PULM TOILET., ADEQ OXYGENATION., CXR REVIEWED. CONT IVF. CONT AB PER ID., ON 1;1. PROG POOR. DISCUSSED WITH STAFF.
[2017-11-28] MEDS: (Lantus) Insulin Glargine, Recombinant SC SCH (22:25)
[2017-11-29] MEDS: (Novolog) Insulin Aspart, Recombinant 100 u/ml 10 ml vial SC SCH ×4 (08:25→21:50)
[2017-11-29] MEDS: Divalproex 125 mg Sprinkle Capsule PO SCH ×2 (10:54→18:26)
[2017-11-29 11:33] LABS: BASO % 0.3 % (0.0-2.0); EOS # 0.3 K/uL (0.0-0.7); EOS % 4.9 % (0.0-4.0); HEMOGLOBIN 9.8 g/dL (12.0-18.0); LYMPH # 1.5 K/uL (1.0-4.3); LYMPH % 21.3 % (20.0-40.0); MEAN CELL VOLUME 85.9 fL (80.0-94.0); MEAN CORPUSCULAR HEMOGLOBIN 33.9 pg (27.0-31.0); MEAN CORPUSCULAR HGB CONC 39.5 g/dL (33.0-37.0); MEAN PLATELET VOLUME 8.2 fL (7.2-11.7); MONO # 0.4 K/uL (0.0-0.8); MONO % 5.8 % (0.0-10.0); NEUT # 4.8 K/uL (1.8-7.0); NEUT % 67.7 % (50.0-75.0); NRBC % 0.3 % (0.0-2.0); RBC 2.9 Mil/uL (4.40-5.90); RED CELL DISTRIBUTION WIDTH 14.9 % (11.5-14.5); WHITE BLOOD COUNT 7.1 K/uL (4.8-10.8)
[2017-11-29 11:44] LABS: CALCIUM 8.8 mg/dl (8.6-10.4)
--- NOTE | 2017-11-29 13:27 | CP.PCM.PN ---
Subjective - Date & Time of Evaluation Date of Evaluation: 11/29/17 Time of Evaluation: 13:24 - Subjective Subjective: COVERING DR Wade OSULLIVAN PT AWAKE., CONFUSED., NO DISTRES. ROS; UNOBTAINABLE. Objective - Vital Signs/Intake and Output Vital Signs (last 24 hours): Temp Pulse Resp BP Pulse Ox 97.5 F L 94 H 18 101/54 L 98 11/29/17 07:15 11/29/17 07:15 11/29/17 07:15 11/29/17 10:53 11/29/17 07:15 - Medications Medications: Current Medications Acetaminophen (Tylenol 325mg Tab) 650 mg PO Q6 PRN PRN Reason: Pain, Mild (1-3) Last Admin: 11/25/17 21:50 Dose: 650 mg Ciprofloxacin (Cipro) 500 mg PO Q24H [facility] Dextrose (Dextrose 50% Inj) 0 ml IV STAT PRN; Protocol PRN Reason: Hypoglycemia Protocol Dextrose (Glutose 15) 15 gm PO ONCE PRN; Protocol PRN Reason: Hypoglycemia Protocol Diphenhydramine HCl (Benadryl) 25 mg IVP Q8 PRN PRN Reason: Agitation Last Admin: 11/28/17 10:52 Dose: 25 mg Divalproex Sodium (Depakote Sprinkles) 125 mg PO BID [facility] Last Admin: 11/29/17 10:54 Dose: 125 mg Famotidine (Pepcid) 20 mg PO DAILY [facility] Last Admin: 11/29/17 10:53 Dose: 20 mg Glucagon (Glucagen Diagnostic Kit) 1 mg IM STAT PRN; Protocol PRN Reason: Hypoglycemia Protocol Insulin Aspart (Novolog) 0 unit SC ACHS [facility] PRN Reason: Protocol Last Admin: 11/29/17 08:25 Dose: Not Given Insulin Glargine (Lantus) 15 unit SC HS [facility] Last Admin: 11/28/17 22:25 Dose: 15 unit Lorazepam (Ativan) 1 mg PO TID PRN PRN Reason: Agitation Metoprolol Tartrate (Lopressor) 25 mg PO BID [facility] Last Admin: 11/29/17 10:53 Dose: 25 mg Mirtazapine (Remeron) 7.5 mg PO HS [facility] Last Admin: 11/28/17 22:15 Dose: 7.5 mg Risperidone (Risperdal Tab) 1 mg PO DAILY [facility] Last Admin: 11/29/17 10:53 Dose: 1 mg Tamsulosin HCl (Flomax) 0.4 mg PO DAILY [facility] Last Admin: 11/29/17 10:53 Dose: 0.4 mg - Labs Labs: 11/29/17 11:18 11/29/17 11:18 - Constitutional Appears: No Acute Distress, Cachectic, Chronically Ill - Head Exam Head Exam: ATRAUMATIC, NORMOCEPHALIC - Eye Exam Eye Exam: EOMI, Normal appearance - ENT Exam ENT Exam: Mucous Membranes Moist - Neck Exam Neck Exam: Normal Inspection - Respiratory Exam Respiratory Exam: Decreased Breath Sounds. absent: Wheezes, Respiratory Distress - Cardiovascular Exam Cardiovascular Exam: RRR, +S1, +S2 - GI/Abdominal Exam GI & Abdominal Exam: Soft - Rectal Exam Rectal Exam: Deferred - Extremities Exam Extremities Exam: absent: Calf Tenderness, Pedal Edema - Neurological Exam Neurological Exam: Awake. absent: Oriented x3 Additional comments: NONFOCAL - Psychiatric Exam Psychiatric exam: Agitated - Skin Skin Exam: absent: Rash Assessment and Plan (1) JOY (acute kidney injury) Status: Acute (2) Anemia Status: Acute (3) Dementia Status: Acute (4) Afib Status: Acute - Assessment and Plan (Free Text) Assessment: RESP STATUS NO SIG CHANGE., CONT PULM TOILET., AFEBRILE ON AB., CXR REVIEWED. ON , PROG POOR. DISCUSSED WITH STAFF.
[2017-11-29] MEDS ORDERED: Sod Polystyrene Sulf 15 gm/60 ml Susp PO ONE (15:30)
--- NOTE | 2017-11-29 19:11 | CP.PCM.PN ---
Subjective - Date & Time of Evaluation Date of Evaluation: 11/29/17 Time of Evaluation: 02:30 - Subjective Subjective: dictated Objective - Vital Signs/Intake and Output Vital Signs (last 24 hours): Temp Pulse Resp BP Pulse Ox 97.4 F L 60 20 138/74 100 11/29/17 15:34 11/29/17 15:34 11/29/17 15:34 11/29/17 18:27 11/29/17 15:34 - Medications Medications: Current Medications Acetaminophen (Tylenol 325mg Tab) 650 mg PO Q6 PRN PRN Reason: Pain, Mild (1-3) Last Admin: 11/25/17 21:50 Dose: 650 mg Ciprofloxacin (Cipro) 500 mg PO Q24H [facility] Last Admin: 11/29/17 18:27 Dose: 500 mg Dextrose (Dextrose 50% Inj) 0 ml IV STAT PRN; Protocol PRN Reason: Hypoglycemia Protocol Dextrose (Glutose 15) 15 gm PO ONCE PRN; Protocol PRN Reason: Hypoglycemia Protocol Diphenhydramine HCl (Benadryl) 25 mg IVP Q8 PRN PRN Reason: Agitation Last Admin: 11/28/17 10:52 Dose: 25 mg Divalproex Sodium (Depakote Sprinkles) 125 mg PO BID [facility] Last Admin: 11/29/17 18:26 Dose: 125 mg Famotidine (Pepcid) 20 mg PO DAILY [facility] Last Admin: 11/29/17 10:53 Dose: 20 mg Glucagon (Glucagen Diagnostic Kit) 1 mg IM STAT PRN; Protocol PRN Reason: Hypoglycemia Protocol Insulin Aspart (Novolog) 0 unit SC [facility] PRN Reason: Protocol Last Admin: 11/29/17 13:23 Dose: 4 unit Insulin Glargine (Lantus) 15 unit SC HS [facility] Last Admin: 11/28/17 22:25 Dose: 15 unit Lorazepam (Ativan) 1 mg PO TID PRN PRN Reason: Agitation Last Admin: 11/29/17 18:26 Dose: 1 mg Metoprolol Tartrate (Lopressor) 25 mg PO BID [facility] Last Admin: 11/29/17 18:27 Dose: 25 mg Mirtazapine (Remeron) 7.5 mg PO HS [facility] Last Admin: 11/28/17 22:15 Dose: 7.5 mg Risperidone (Risperdal Tab) 1 mg PO DAILY [facility] Last Admin: 11/29/17 10:53 Dose: 1 mg Tamsulosin HCl (Flomax) 0.4 mg PO DAILY [facility] Last Admin: 11/29/17 10:53 Dose: 0.4 mg - Labs Labs: 11/29/17 11:18 11/29/17 11:18
[2017-11-29] MEDS: (Lantus) Insulin Glargine, Recombinant SC SCH (22:02)
--- NOTE | 2017-11-30 00:50 | PN ---
DATE: 11/29/2017 SUBJECTIVE: The patient is lying in bed. He is on one to one. He does not want to communicate. Remains confused. Offers no new complaints. OBJECTIVE: VITAL SIGNS: His temperature is 97.4, pulse 60, blood pressure 114/80, respirations are 20. HEENT: Head is atraumatic, normocephalic. NECK: Supple. LUNGS: Clear. HEART: S1, S2 is regular. ABDOMEN: Soft, nontender. No guarding, no rigidity present. EXTREMITIES: Have no edema. MEDICATION: Cipro was made p.o. by the pharmacy. LABORATORY DATA: White count is 7.1, hemoglobin 9.8, hematocrit 24.9, platelet count is 308. His potassium was 5.4 today and creatinine is 2.9. ASSESSMENT AND PLAN: He remains with renal insufficiency. He has no Mendes catheter at this time. His sugar was before 298, but now it is 131. I had requested a urine culture, but I guess he did not give one and he is on Cipro from the time I have been seeing him which is on the , so he got 5 days of Cipro. We will give it for two more days and then it can be discontinued. The patient remains with his altered mental status, confusion and is on one to one and needs to be followed up with Psychiatry. Teresa Barnett MD
[2017-11-30] MEDS: Dextrose 5%/0.45% NS 1,000 ML IV SCH (03:40)
[2017-11-30] MEDS: (Novolog) Insulin Aspart, Recombinant 100 u/ml 10 ml vial SC SCH ×4 (08:28→21:49)
--- NOTE | 2017-11-30 10:18 | CP.PCM.PN ---
Subjective - Date & Time of Evaluation Date of Evaluation: 11/30/17 Time of Evaluation: 10:16 - Subjective Subjective: COVERING DR Wade OSULLIVAN. PT CONFUSED. NO DISTRESS. ROS; UNOBTAINABLE. Objective - Vital Signs/Intake and Output Vital Signs (last 24 hours): Temp Pulse Resp BP Pulse Ox 97.3 F L 123 H 20 137/80 99 11/30/17 07:30 11/30/17 07:30 11/30/17 07:30 11/30/17 07:30 11/30/17 07:30 - Medications Medications: Current Medications Acetaminophen (Tylenol 325mg Tab) 650 mg PO Q6 PRN PRN Reason: Pain, Mild (1-3) Last Admin: 11/25/17 21:50 Dose: 650 mg Ciprofloxacin (Cipro) 500 mg PO Q24H [facility] Last Admin: 11/29/17 18:27 Dose: 500 mg Dextrose (Dextrose 50% Inj) 0 ml IV STAT PRN; Protocol PRN Reason: Hypoglycemia Protocol Dextrose (Glutose 15) 15 gm PO ONCE PRN; Protocol PRN Reason: Hypoglycemia Protocol Diphenhydramine HCl (Benadryl) 25 mg IVP Q8 PRN PRN Reason: Agitation Last Admin: 11/28/17 10:52 Dose: 25 mg Divalproex Sodium (Depakote Sprinkles) 125 mg PO BID [facility] Last Admin: 11/29/17 18:26 Dose: 125 mg Famotidine (Pepcid) 20 mg PO DAILY [facility] Last Admin: 11/29/17 10:53 Dose: 20 mg Glucagon (Glucagen Diagnostic Kit) 1 mg IM STAT PRN; Protocol PRN Reason: Hypoglycemia Protocol Insulin Aspart (Novolog) 0 unit SC [facility] PRN Reason: Protocol Last Admin: 11/30/17 08:28 Dose: Not Given Insulin Glargine (Lantus) 15 unit SC HS [facility] Last Admin: 11/29/17 22:02 Dose: 15 unit Lorazepam (Ativan) 1 mg PO TID PRN PRN Reason: Agitation Last Admin: 11/29/17 18:26 Dose: 1 mg Metoprolol Tartrate (Lopressor) 25 mg PO BID [facility] Last Admin: 11/29/17 18:27 Dose: 25 mg Mirtazapine (Remeron) 7.5 mg PO HS [facility] Last Admin: 11/29/17 22:01 Dose: 7.5 mg Risperidone (Risperdal Tab) 1 mg PO DAILY [facility] Last Admin: 11/29/17 10:53 Dose: 1 mg Tamsulosin HCl (Flomax) 0.4 mg PO DAILY [facility] Last Admin: 11/29/17 10:53 Dose: 0.4 mg - Labs Labs: 11/29/17 11:18 11/29/17 11:18 - Constitutional Appears: No Acute Distress, Cachectic, Chronically Ill - Head Exam Head Exam: ATRAUMATIC, NORMOCEPHALIC - Eye Exam Eye Exam: Normal appearance - ENT Exam ENT Exam: Mucous Membranes Moist - Neck Exam Neck Exam: Normal Inspection - Respiratory Exam Respiratory Exam: Decreased Breath Sounds. absent: Respiratory Distress - Cardiovascular Exam Cardiovascular Exam: Irregular Rhythm, +S1, +S2 - GI/Abdominal Exam GI & Abdominal Exam: Soft - Rectal Exam Rectal Exam: Deferred - Extremities Exam Extremities Exam: absent: Calf Tenderness, Pedal Edema - Back Exam Back Exam: absent: CVA tenderness (L), CVA tenderness (R) - Neurological Exam Additional comments: CONFUSED, MOVES EXT. - Psychiatric Exam Psychiatric exam: Agitated - Skin Skin Exam: absent: Rash Assessment and Plan (1) JOY (acute kidney injury) Status: Acute (2) Anemia Status: Acute (3) Dementia Status: Acute (4) Afib Status: Acute - Assessment and Plan (Free Text) Assessment: RESP STATUS UNLABORED., CONT PULM TOILET., ASP PRECAUTIONS., CXR REVIEWED. ON IVF., RENAL EVAL. PROG POOR. ON 1;1 . DISCUSSED WITH STAFF.
[2017-11-30] MEDS: Divalproex 125 mg Sprinkle Capsule PO SCH ×2 (10:58→18:08)
--- NOTE | 2017-11-30 13:24 | CP.PCM.PN ---
Subjective - Date & Time of Evaluation Date of Evaluation: 11/30/17 Time of Evaluation: 12:40 - Subjective Subjective: dictated Objective - Vital Signs/Intake and Output Vital Signs (last 24 hours): Temp Pulse Resp BP Pulse Ox 97.3 F L 123 H 20 139/74 99 11/30/17 07:30 11/30/17 07:30 11/30/17 07:30 11/30/17 10:58 11/30/17 07:30 - Medications Medications: Current Medications Acetaminophen (Tylenol 325mg Tab) 650 mg PO Q6 PRN PRN Reason: Pain, Mild (1-3) Last Admin: 11/25/17 21:50 Dose: 650 mg Ciprofloxacin (Cipro) 500 mg PO Q24H [facility] Last Admin: 11/29/17 18:27 Dose: 500 mg Dextrose (Dextrose 50% Inj) 0 ml IV STAT PRN; Protocol PRN Reason: Hypoglycemia Protocol Dextrose (Glutose 15) 15 gm PO ONCE PRN; Protocol PRN Reason: Hypoglycemia Protocol Diphenhydramine HCl (Benadryl) 25 mg IVP Q8 PRN PRN Reason: Agitation Last Admin: 11/28/17 10:52 Dose: 25 mg Divalproex Sodium (Depakote Sprinkles) 125 mg PO BID [facility] Last Admin: 11/30/17 10:58 Dose: 125 mg Famotidine (Pepcid) 20 mg PO DAILY [facility] Last Admin: 11/30/17 10:59 Dose: 20 mg Glucagon (Glucagen Diagnostic Kit) 1 mg IM STAT PRN; Protocol PRN Reason: Hypoglycemia Protocol Insulin Aspart (Novolog) 0 unit SC [facility] PRN Reason: Protocol Last Admin: 11/30/17 12:32 Dose: 2 unit Insulin Glargine (Lantus) 15 unit SC [facility] Last Admin: 11/29/17 22:02 Dose: 15 unit Lorazepam (Ativan) 1 mg PO TID PRN PRN Reason: Agitation Last Admin: 11/29/17 18:26 Dose: 1 mg Metoprolol Tartrate (Lopressor) 25 mg PO BID [facility] Last Admin: 11/30/17 10:58 Dose: 25 mg Mirtazapine (Remeron) 7.5 mg PO [facility] Last Admin: 11/29/17 22:01 Dose: 7.5 mg Risperidone (Risperdal Tab) 1 mg PO DAILY [facility] Last Admin: 11/30/17 10:58 Dose: 1 mg Tamsulosin HCl (Flomax) 0.4 mg PO DAILY [facility] Last Admin: 11/30/17 10:58 Dose: 0.4 mg - Labs Labs: 11/29/17 11:18 11/29/17 11:18
[2017-11-30 14:16] LABS: BASO # 0.1 K/uL (0.0-0.2); BASO % 1.2 % (0.0-2.0); EOS # 0.2 K/uL (0.0-0.7); EOS % 3.9 % (0.0-4.0); HEMOGLOBIN 10.2 g/dL (12.0-18.0); LYMPH # 1.3 K/uL (1.0-4.3); LYMPH % 23.2 % (20.0-40.0); MEAN CELL VOLUME 85.2 fL (80.0-94.0); MEAN CORPUSCULAR HEMOGLOBIN 28.5 pg (27.0-31.0); MEAN CORPUSCULAR HGB CONC 33.4 g/dL (33.0-37.0); MEAN PLATELET VOLUME 7.3 fL (7.2-11.7); MONO # 0.4 K/uL (0.0-0.8); MONO % 7.2 % (0.0-10.0); NEUT # 3.6 K/uL (1.8-7.0); NEUT % 64.5 % (50.0-75.0); RBC 3.59 Mil/uL (4.40-5.90); RED CELL DISTRIBUTION WIDTH 14.5 % (11.5-14.5); WHITE BLOOD COUNT 5.5 K/uL (4.8-10.8)
[2017-11-30 14:26] LABS: CALCIUM 9.2 mg/dl (8.6-10.4)
[2017-11-30] MEDS ORDERED: Sod Polystyrene Sulf 15 gm/60 ml Susp PO ONE (15:30)
--- NOTE | 2017-11-30 19:03 | PN ---
DATE: 11/30/2017 SUBJECTIVE: The patient remains confused. He is trying to get out of bed and we tried to hold him back and he is trying to hit people. PHYSICAL EXAMINATION: VITAL SIGNS: T-max is 97.3, heart rate 123, blood pressure 137/80, and respirations are 20. GENERAL: He appears to be in no acute respiratory distress. HEENT: Head is atraumatic. NECK: Supple. LUNGS: Clear. HEART: S1 and S2 is regular. He is agitated and so his heart rate went up. ABDOMEN: Soft and nontender. EXTREMITIES: Have no edema. MEDICATION: He has received Cipro for several days, now I will discontinue it. They were not able to collect urine because he is aggressive and does not unable to get that. LABORATORY DATA: Labs were done yesterday. White count is okay. Potassium is 5.8 and creatinine is 2.9. ASSESSMENT AND PLAN: He has renal insufficiency. He will be seen by a renal attending. We will follow. The patient has urinary tract infection probably a contaminant. He has no metal in his body and no wires and I will follow. Teresa Barnett MD
[2017-11-30] MEDS: (Lantus) Insulin Glargine, Recombinant SC SCH (21:35)
[2017-12-01 07:16] LABS: BASO # 0.1 K/uL (0.0-0.2); BASO % 1.3 % (0.0-2.0); EOS # 0.3 K/uL (0.0-0.7); EOS % 4.8 % (0.0-4.0); HEMOGLOBIN 10.6 g/dL (12.0-18.0); LYMPH # 1.5 K/uL (1.0-4.3); LYMPH % 23.8 % (20.0-40.0); MEAN CELL VOLUME 85.3 fL (80.0-94.0); MEAN CORPUSCULAR HEMOGLOBIN 28.3 pg (27.0-31.0); MEAN CORPUSCULAR HGB CONC 33.2 g/dL (33.0-37.0); MEAN PLATELET VOLUME 7.4 fL (7.2-11.7); MONO # 0.5 K/uL (0.0-0.8); MONO % 7.9 % (0.0-10.0); NEUT # 3.9 K/uL (1.8-7.0); NEUT % 62.2 % (50.0-75.0); RBC 3.74 Mil/uL (4.40-5.90); RED CELL DISTRIBUTION WIDTH 14.6 % (11.5-14.5); WHITE BLOOD COUNT 6.3 K/uL (4.8-10.8)
[2017-12-01 07:26] LABS: CALCIUM 9.6 mg/dl (8.6-10.4)
--- NOTE | 2017-12-01 08:16 | CP.PCM.CON ---
History of Present Illness - History of Present Illness History of Present Illness: 72 yo male with history of dementia, diabetes, bph, colostomy. Resides in [place], admitted several days ago for deliurium superimposed on dementia. Currently being treated for UTI. Pt with creatinine of 4.5 on admit, now at 2.9. Unknown previous renal status.Pt also with hyperkalemic metabolic acidosis. Pt noted to have colostomy as well. Unable to obtain history from patient due to mental status. Currently not on nephrotoxic medicines. Review of Systems - Review of Systems Systems not reviewed;Unavailable: Dementia Past Patient History - Past Medical History & Family History Past Medical History?: Yes - Past Social History Smoking Status: Unknown If Ever Smoked Home Situation {Lives}: [facility] - PULMONARY Hx Respiratory Disorders: Yes - NEUROLOGICAL Hx Neurological Disorder: Yes Hx Dementia: Yes Other/Comment: AMS, Convulsions,Dementia - HEENT Hx HEENT Problems: No - RENAL Hx Chronic Kidney Disease: No - ENDOCRINE/METABOLIC Hx Diabetes Mellitus Type 2: Yes - HEMATOLOGICAL/ONCOLOGICAL Hx Blood Disorders: Yes Hx Anemia: Yes - INTEGUMENTARY Hx Dermatological Problems: No - MUSCULOSKELETAL/RHEUMATOLOGICAL Hx Falls: No - GASTROINTESTINAL Hx Gastrointestinal Disorders: No Hx Colostomy: Yes - GENITOURINARY/GYNECOLOGICAL Hx Genitourinary Disorders: No - PSYCHIATRIC Hx Psychophysiologic Disorder: No Hx Substance Use: No - SURGICAL HISTORY Hx Surgeries: No Other/Comment: unable to obtain informations - ANESTHESIA Hx Anesthesia: No Hx Anesthesia Reactions: No Meds Allergies/Adverse Reactions: Allergies Allergy/AdvReac Type Severity Reaction Status Date / Time No Known Allergies Allergy Unverified 11/23/17 15:49 - Medications Medications: Current Medications Acetaminophen (Tylenol 325mg Tab) 650 mg PO Q6 PRN PRN Reason: Pain, Mild (1-3) Last Admin: 11/25/17 21:50 Dose: 650 mg Ciprofloxacin (Cipro) 500 mg PO Q24H [facility] PRN Reason: Protocol Last Admin: 11/30/17 15:55 Dose: 500 mg Dextrose (Dextrose 50% Inj) 0 ml IV STAT PRN; Protocol PRN Reason: Hypoglycemia Protocol Dextrose (Glutose 15) 15 gm PO ONCE PRN; Protocol PRN Reason: Hypoglycemia Protocol Diphenhydramine HCl (Benadryl) 25 mg IVP Q8 PRN PRN Reason: Agitation Last Admin: 11/28/17 10:52 Dose: 25 mg Divalproex Sodium (Depakote Sprinkles) 125 mg PO BID [facility] Last Admin: 11/30/17 18:08 Dose: 125 mg Famotidine (Pepcid) 20 mg PO DAILY [facility] Last Admin: 11/30/17 10:59 Dose: 20 mg Glucagon (Glucagen Diagnostic Kit) 1 mg IM STAT PRN; Protocol PRN Reason: Hypoglycemia Protocol Sodium Chloride (Sodium Chloride 0.45%) 1,000 mls @ 75 mls/hr IV .[id number] [facility] Insulin Aspart (Novolog) 0 unit SC ACHS [facility] PRN Reason: Protocol Last Admin: 11/30/17 21:49 Dose: Not Given Insulin Glargine (Lantus) 15 unit SC [facility] Last Admin: 11/30/17 21:35 Dose: 15 unit Lorazepam (Ativan) 1 mg PO TID PRN PRN Reason: Agitation Last Admin: 11/30/17 15:48 Dose: 1 mg Metoprolol Tartrate (Lopressor) 25 mg PO BID [facility] Last Admin: 11/30/17 18:07 Dose: 25 mg Mirtazapine (Remeron) 7.5 mg PO HS [facility] Last Admin: 11/30/17 21:35 Dose: 7.5 mg Risperidone (Risperdal Tab) 1 mg PO DAILY [facility] Last Admin: 11/30/17 10:58 Dose: 1 mg Sodium Bicarbonate (Sodium Bicarbonate Tab) 650 mg PO Q6 [facility] Tamsulosin HCl (Flomax) 0.4 mg PO DAILY [facility] Last Admin: 11/30/17 10:58 Dose: 0.4 mg Physical Exam - Constitutional Appears: No Acute Distress, Chronically Ill - Head Exam Head Exam: ATRAUMATIC, NORMAL INSPECTION - Eye Exam Eye Exam: EOMI, Normal appearance - ENT Exam ENT Exam: Mucous Membranes Moist - Neck Exam Neck exam: Positive for: Full Rom. Negative for: Lymphadenopathy - Respiratory Exam Respiratory Exam: Clear to Auscultation Bilateral. absent: Accessory Muscle Use - Cardiovascular Exam Cardiovascular Exam: REGULAR RHYTHM. absent: Rubs - GI/Abdominal Exam GI & Abdominal Exam: Distended. absent: Tenderness Additional comments: ostomy with large amount of stool - Extremities Exam Extremities exam: Negative for: pedal edema - Neurological Exam Neurological exam: Alert - Psychiatric Exam Psychiatric exam: Agitated Results - Vital Signs Recent Vital Signs: Last Vital Signs Temp 97.8 F 11/30/17 23:10 Pulse 122 H 11/30/17 23:10 Resp 20 11/30/17 23:10 BP 108/69 11/30/17 23:10 Pulse Ox 99 11/30/17 23:10 - Labs Result Diagrams: 12/01/17 07:01 12/01/17 07:01 Labs: Laboratory Results - last 24 hr 11/30/17 11/30/17 11/30/17 11:16 13:45 13:45 WBC 5.5 RBC 3.59 L Hgb 10.2 L Hct 30.6 L MCV 85.2 MCH 28.5 MCHC 33.4 RDW 14.5 Plt Count 318 MPV 7.3 Neut % (Auto) 64.5 Lymph % (Auto) 23.2 [place] % (Auto) 7.2 Eos % (Auto) 3.9 Baso % (Auto) 1.2 Neut # (Auto) 3.6 Lymph # (Auto) 1.3 [place] # (Auto) 0.4 Eos # (Auto) 0.2 Baso # (Auto) 0.1 Sodium 140 Potassium 5.9 H Chloride 109 H Carbon Dioxide 15 L Anion Gap 22 H BUN 67 H Creatinine 2.8 H Est GFR ( Amer) 27 Est GFR (Non-Af Amer) 22 POC Glucose (mg/dL) 169 H Random Glucose 184 H Calcium 9.2 11/30/17 12/01/17 12/01/17 16:42 07:01 07:01 WBC 6.3 RBC 3.74 L Hgb 10.6 L Hct 31.9 L MCV 85.3 MCH 28.3 MCHC 33.2 RDW 14.6 H Plt Count 331 MPV 7.4 Neut % (Auto) 62.2 Lymph % (Auto) 23.8 [place] % (Auto) 7.9 Eos % (Auto) 4.8 H Baso % (Auto) 1.3 Neut # (Auto) 3.9 Lymph # (Auto) 1.5 [place] # (Auto) 0.5 Eos # (Auto) 0.3 Baso # (Auto) 0.1 Sodium 141 Potassium 5.7 H Chloride 110 H Carbon Dioxide 17 L Anion Gap 20 BUN 72 H Creatinine 2.9 H Est GFR ( Amer) 26 Est GFR (Non-Af Amer) 21 POC Glucose (mg/dL) 189 H Random Glucose 117 H Calcium 9.6 Assessment & Plan - Assessment and Plan (Free Text) Assessment: suspected kristy on ckd check us of bladder and kidney type 4 rta, check urine electrolytes k restrict in diet start oral hco3 ivf, suspect losses due to ostomy
[2017-12-01] MEDS: (Novolog) Insulin Aspart, Recombinant 100 u/ml 10 ml vial SC SCH ×4 (08:24→21:58)
[2017-12-01] MEDS: Divalproex 125 mg Sprinkle Capsule PO SCH ×2 (11:28→17:38)
[2017-12-01] MEDS: Sodium Chloride 0.45% 1,000 ML IV SCH ×2 (11:52→23:50)
--- NOTE | 2017-12-01 12:17 | CP.PCM.PN ---
Subjective - Date & Time of Evaluation Date of Evaluation: 12/01/17 Time of Evaluation: 12:14 - Subjective Subjective: COVERING DR Wade OSULLIVAN PT AWAKE, NO DISTRESS. ROS; UNOBTAINABLE. Objective - Vital Signs/Intake and Output Vital Signs (last 24 hours): Temp Pulse Resp BP Pulse Ox 97.2 F L 114 H 20 155/82 H 98 12/01/17 07:00 12/01/17 07:00 12/01/17 07:00 12/01/17 11:22 12/01/17 07:00 - Medications Medications: Current Medications Acetaminophen (Tylenol 325mg Tab) 650 mg PO Q6 PRN PRN Reason: Pain, Mild (1-3) Last Admin: 11/25/17 21:50 Dose: 650 mg Ciprofloxacin (Cipro) 500 mg PO Q24H [facility] PRN Reason: Protocol Last Admin: 11/30/17 15:55 Dose: 500 mg Dextrose (Dextrose 50% Inj) 0 ml IV STAT PRN; Protocol PRN Reason: Hypoglycemia Protocol Dextrose (Glutose 15) 15 gm PO ONCE PRN; Protocol PRN Reason: Hypoglycemia Protocol Diphenhydramine HCl (Benadryl) 25 mg IVP Q8 PRN PRN Reason: Agitation Last Admin: 11/28/17 10:52 Dose: 25 mg Divalproex Sodium (Depakote Sprinkles) 125 mg PO BID [facility] Last Admin: 12/01/17 11:28 Dose: 125 mg Famotidine (Pepcid) 20 mg PO DAILY [facility] Last Admin: 12/01/17 11:21 Dose: 20 mg Glucagon (Glucagen Diagnostic Kit) 1 mg IM STAT PRN; Protocol PRN Reason: Hypoglycemia Protocol Sodium Chloride (Sodium Chloride 0.45%) 1,000 mls @ 75 mls/hr IV .[id number] [facility] Last Admin: 12/01/17 11:52 Dose: 75 mls/hr Insulin Aspart (Novolog) 0 unit SC ACHS [facility] PRN Reason: Protocol Last Admin: 12/01/17 08:24 Dose: Not Given Insulin Glargine (Lantus) 15 unit SC HS [facility] Last Admin: 11/30/17 21:35 Dose: 15 unit Lorazepam (Ativan) 1 mg PO TID PRN PRN Reason: Agitation Last Admin: 12/01/17 11:22 Dose: 1 mg Metoprolol Tartrate (Lopressor) 25 mg PO BID [facility] Last Admin: 12/01/17 11:22 Dose: 25 mg Mirtazapine (Remeron) 7.5 mg PO HS [facility] Last Admin: 11/30/17 21:35 Dose: 7.5 mg Risperidone (Risperdal Tab) 1 mg PO DAILY [facility] Last Admin: 12/01/17 11:22 Dose: 1 mg Sodium Bicarbonate (Sodium Bicarbonate Tab) 650 mg PO Q6 [facility] Last Admin: 12/01/17 11:22 Dose: 650 mg Tamsulosin HCl (Flomax) 0.4 mg PO DAILY [facility] Last Admin: 12/01/17 11:22 Dose: 0.4 mg - Labs Labs: 12/01/17 07:01 12/01/17 07:01 - Constitutional Appears: No Acute Distress, Cachectic, Chronically Ill - Head Exam Head Exam: ATRAUMATIC, NORMOCEPHALIC - Eye Exam Eye Exam: EOMI, Normal appearance - ENT Exam ENT Exam: Mucous Membranes Moist - Neck Exam Neck Exam: Normal Inspection - Respiratory Exam Respiratory Exam: absent: Wheezes, Respiratory Distress - Cardiovascular Exam Cardiovascular Exam: RRR, +S1, +S2 - GI/Abdominal Exam GI & Abdominal Exam: Soft. absent: Tenderness - Rectal Exam Rectal Exam: Deferred - Extremities Exam Extremities Exam: absent: Calf Tenderness, Pedal Edema - Back Exam Back Exam: absent: CVA tenderness (L), CVA tenderness (R) - Neurological Exam Neurological Exam: Awake, CN II-XII Intact. absent: Oriented x3 - Psychiatric Exam Psychiatric exam: Flat Affect - Skin Skin Exam: absent: Rash Assessment and Plan (1) JOY (acute kidney injury) Status: Acute (2) Anemia Status: Acute (3) Dementia Status: Acute (4) Afib Status: Acute - Assessment and Plan (Free Text) Assessment: RESP STATUS NO SIG CHANGE . AFEBRILE. CONT PULM TOILET., ADEQ OXYGENATION., CXR REVIEWED. RENAL EVAL APPRECIATED., W/U IN PROGRESS. PROG POOR., ON 1. DISCUSSED WITH STAFF AT LENGTH.
--- NOTE | 2017-12-01 13:40 | US ---
Date of service: 12/01/2017 PROCEDURE: Ultrasound of the Kidneys HISTORY: renal failure COMPARISON: None available. TECHNIQUE: Sonogram of the kidneys. FINDINGS: RIGHT KIDNEY: Measures: 10.6 x 5.8 x 5.5 cm. Moderate hydronephrosis identified without renal parenchymal cystic or solid mass appreciable. There is poor corticomedullary differentiation which may indicate an element of intrinsic medical renal disease. Overall renal size is normal with smooth peripheral contour identified. No perinephric fluid collection appreciable. LEFT KIDNEY: Measures: 11.0 x 5.5 x 5.3 cm. Moderate hydronephrosis identified without renal parenchymal cyst or solid mass appreciable. There is poor corticomedullary differentiation which may indicate an element of intrinsic medical renal disease. Overall renal size is normal with smooth peripheral contour identified. No perinephric fluid collection appreciable. OTHER FINDINGS: Interrogation of the urinary bladder reveals no intracystic urolithiasis grossly. Urinary bladder is distended to 380 cc volume with left focal diffuse prominent mural thickening appreciable. Patient was unable to void and postvoid residual was consequently not obtained. IMPRESSION: Moderate bilateral hydronephrosis is identified of indeterminate cause, potentially as a function of hydrostatic pressure from a distended urinary bladder. This is not definite. The patient is unable to void and postvoid residual was not performed as result. No urolithiasis identified throughout urinary bladder or either kidney with renal parenchyma remarkable for potential intrinsic medical renal disease as described above.
[2017-12-01 14:51] LABS: SQUAMOUS EPITHIAL < 1 /hpf (0-5); URINE BILIRUBIN NEGATIVE (NEGATIVE); URINE BLOOD 3+ (NEGATIVE); URINE CLARITY Hazy (Clear); URINE COLOR Yellow (YELLOW); URINE GLUCOSE (UA) NORMAL (Normal); URINE HYALINE CAST 0-2 /lpf (0-2); URINE LEUKOCYTE ESTERASE 3+ Leu/uL (Negative); URINE PROTEIN 1+ mg/dL (NEGATIVE); URINE UROBILINOGEN NORMAL mg/dL (0.2-1.0)
[2017-12-01] MEDS ORDERED: Sod Polystyrene Sulf 15 gm/60 ml Susp PO ONE ×2 (14:51→16:12)
--- NOTE | 2017-12-01 19:04 | CP.PCM.PN ---
Subjective - Date & Time of Evaluation Date of Evaluation: 12/01/17 Time of Evaluation: 03:00 - Subjective Subjective: dictated Objective - Vital Signs/Intake and Output Vital Signs (last 24 hours): Temp Pulse Resp BP Pulse Ox 97.4 F L 114 H 20 142/86 98 12/01/17 15:02 12/01/17 15:02 12/01/17 15:02 12/01/17 17:38 12/01/17 07:00 Intake and Output: 12/01/17 12/02/17 18:59 06:59 Intake Total 600 Output Total 300 Balance 300 - Medications Medications: Current Medications Acetaminophen (Tylenol 325mg Tab) 650 mg PO Q6 PRN PRN Reason: Pain, Mild (1-3) Last Admin: 11/25/17 21:50 Dose: 650 mg Ciprofloxacin (Cipro) 500 mg PO Q24H NEL PRN Reason: Protocol Last Admin: 12/01/17 16:28 Dose: 500 mg Dextrose (Dextrose 50% Inj) 0 ml IV STAT PRN; Protocol PRN Reason: Hypoglycemia Protocol Dextrose (Glutose 15) 15 gm PO ONCE PRN; Protocol PRN Reason: Hypoglycemia Protocol Diphenhydramine HCl (Benadryl) 25 mg IVP Q8 PRN PRN Reason: Agitation Last Admin: 11/28/17 10:52 Dose: 25 mg Divalproex Sodium (Depakote Sprinkles) 125 mg PO BID [facility] Last Admin: 12/01/17 17:38 Dose: 125 mg Famotidine (Pepcid) 20 mg PO DAILY [facility] Last Admin: 12/01/17 11:21 Dose: 20 mg Glucagon (Glucagen Diagnostic Kit) 1 mg IM STAT PRN; Protocol PRN Reason: Hypoglycemia Protocol Sodium Chloride (Sodium Chloride 0.45%) 1,000 mls @ 75 mls/hr IV .[id number] [facility] Last Admin: 12/01/17 11:52 Dose: 75 mls/hr Insulin Aspart (Novolog) 0 unit SC ACHS NEL PRN Reason: Protocol Last Admin: 12/01/17 17:37 Dose: 3 unit Insulin Glargine (Lantus) 15 unit SC HS [facility] Last Admin: 11/30/17 21:35 Dose: 15 unit Lorazepam (Ativan) 1 mg PO TID PRN PRN Reason: Agitation Last Admin: 12/01/17 11:22 Dose: 1 mg Metoprolol Tartrate (Lopressor) 25 mg PO BID [facility]EL Last Admin: 12/01/17 17:38 Dose: 25 mg Mirtazapine (Remeron) 7.5 mg PO HS [facility] Last Admin: 11/30/17 21:35 Dose: 7.5 mg Risperidone (Risperdal Tab) 1 mg PO DAILY [facility] Last Admin: 12/01/17 11:22 Dose: 1 mg Sodium Bicarbonate (Sodium Bicarbonate Tab) 650 mg PO Q6 [facility]EL Last Admin: 12/01/17 17:38 Dose: 650 mg Tamsulosin HCl (Flomax) 0.4 mg PO DAILY [facility] Last Admin: 12/01/17 11:22 Dose: 0.4 mg - Labs Labs: 12/01/17 07:01 12/01/17 07:01
--- NOTE | 2017-12-01 20:44 | PCM.PYCHPN ---
Psychiatric Progress Note - Psychiatric Progress Note Patient seen today, length of contact: 16 min Patient Chief Complaint: No c/c Seen for psych follow up per PA's request for clearance Problems Identified/Issues Discussed: The pt is seen, chart reviewed He is still delirious: he was talking to his visual hallucinations up in the ceiling when met He does not make sense He is disoriented Likely due to renal failure Medication Change: Yes (use ativan rarely) Medical Record Reviewed: Yes Mental Status Examination - Cognitive Function Orientation: Situation (totaly disoriented) Memory: Impaired Attention: Poor Concentration: Poor Association: Loose Fund of Knowledge: Poor - Mood Mood: Other (labile) - Affect Affect: Flat - Speech Speech: Slurred - Formal Thought Process Formal Thought Process: Loosening of associations Goal/Treatment Plan - Goal/Treatment Plan Need for Continued Stay: Other (medical treatment) Progress Toward Problem(s) and Goals/Treatment Plan: prn meds for agitation 1:1 for safety Continue medical treatment Not ready for d/c
[2017-12-01] MEDS: (Lantus) Insulin Glargine, Recombinant SC SCH (21:24)
--- NOTE | 2017-12-02 00:38 | PN ---
DATE: 12/01/2017 SUBJECTIVE: The patient was seen by the software installation engineer today. The patient remains with agitation. He remains agitated. He yells and he says bad words. However, they were trying to pull them down and get a straight cath to get a UA and urine culture. PHYSICAL EXAMINATION: VITAL SIGNS: T-max is 97.4, heart rate of 114, blood pressure 142/86, respirations are 20. HEENT: Head is atraumatic, normocephalic. NECK: Supple. LUNGS: Clear. HEART: S1, S2 tachycardic. ABDOMEN: Soft, nontender. He resist exam. EXTREMITIES: Have no edema. He does have a colostomy bag. He was getting Cipro since admission, and I have continued it before the UTI as he had Enterobacter, and we will await for the urine culture if the urine culture is collected. Otherwise, I was planning to discontinue antibiotics. Actually, they did get the urine when I am writing and urine still has 3+ leukocytes, wbc's 278, rbc's are 103. The patient remains on Cipro at this time with renal insufficiency, dementia, benign prostatic hypertrophy, and we will await for the culture report and Cipro was made p.o. as he was not letting them give it. We will follow. I am not sure if he took the pills or not. He does have a followup with psychiatrist as needed. Teresa Barnett MD
[2017-12-02] MEDS: (Novolog) Insulin Aspart, Recombinant 100 u/ml 10 ml vial SC SCH ×4 (08:38→22:01)
--- NOTE | 2017-12-02 09:52 | CP.PCM.PN ---
Subjective - Date & Time of Evaluation Date of Evaluation: 12/02/17 Time of Evaluation: 09:49 - Subjective Subjective: remains poorly responsive ostomy noted JOY sl improved with IV fluids, oral bicarb Renal US shows bilat hydro, but also changed consistent with CKD Objective - Vital Signs/Intake and Output Vital Signs (last 24 hours): Temp Pulse Resp BP Pulse Ox 97.8 F 115 H 20 114/78 99 12/02/17 07:15 12/02/17 07:15 12/02/17 07:15 12/02/17 07:15 12/02/17 07:15 Intake and Output: 12/02/17 12/02/17 06:59 18:59 Intake Total 1550 Output Total 50 Balance 1500 - Medications Medications: Current Medications Acetaminophen (Tylenol 325mg Tab) 650 mg PO Q6 PRN PRN Reason: Pain, Mild (1-3) Last Admin: 11/25/17 21:50 Dose: 650 mg Ciprofloxacin (Cipro) 500 mg PO Q24H NEL PRN Reason: Protocol Last Admin: 12/01/17 16:28 Dose: 500 mg Dextrose (Dextrose 50% Inj) 0 ml IV STAT PRN; Protocol PRN Reason: Hypoglycemia Protocol Dextrose (Glutose 15) 15 gm PO ONCE PRN; Protocol PRN Reason: Hypoglycemia Protocol Diphenhydramine HCl (Benadryl) 25 mg IVP Q8 PRN PRN Reason: Agitation Last Admin: 11/28/17 10:52 Dose: 25 mg Divalproex Sodium (Depakote Sprinkles) 125 mg PO BID [facility] Last Admin: 12/01/17 17:38 Dose: 125 mg Famotidine (Pepcid) 20 mg PO DAILY [facility] Last Admin: 12/01/17 11:21 Dose: 20 mg Glucagon (Glucagen Diagnostic Kit) 1 mg IM STAT PRN; Protocol PRN Reason: Hypoglycemia Protocol Sodium Chloride (Sodium Chloride 0.45%) 1,000 mls @ 75 mls/hr IV .[id number] [facility] Last Admin: 12/01/17 23:50 Dose: Not Given Insulin Aspart (Novolog) 0 unit SC ACHS NEL PRN Reason: Protocol Last Admin: 12/02/17 08:38 Dose: Not Given Insulin Glargine (Lantus) 15 unit SC HS [facility] Last Admin: 07/18/18 21:24 Dose: 15 unit Lorazepam (Ativan) 1 mg PO TID PRN PRN Reason: Agitation Last Admin: 12/01/17 21:42 Dose: 1 mg Metoprolol Tartrate (Lopressor) 25 mg PO BID [facility] Last Admin: 12/01/17 17:38 Dose: 25 mg Mirtazapine (Remeron) 7.5 mg PO HS [facility] Last Admin: 12/01/17 21:24 Dose: 7.5 mg Risperidone (Risperdal Tab) 1 mg PO DAILY [facility] Last Admin: 12/01/17 11:22 Dose: 1 mg Sodium Bicarbonate (Sodium Bicarbonate Tab) 650 mg PO Q6 [facility] Last Admin: 12/02/17 06:43 Dose: Not Given Tamsulosin HCl (Flomax) 0.4 mg PO DAILY [facility] Last Admin: 12/01/17 11:22 Dose: 0.4 mg - Labs Labs: 12/01/17 07:01 12/01/17 07:01 - Constitutional Appears: No Acute Distress, Cachectic, Chronically Ill - Head Exam Head Exam: ATRAUMATIC, NORMAL INSPECTION - Eye Exam Eye Exam: EOMI, Normal appearance - Neck Exam Neck Exam: Normal Inspection. absent: Tenderness - Respiratory Exam Respiratory Exam: Clear to Ausculation Bilateral, NORMAL BREATHING PATTERN - Cardiovascular Exam Cardiovascular Exam: REGULAR RHYTHM, +S1 - GI/Abdominal Exam GI & Abdominal Exam: Soft. absent: Tenderness - Extremities Exam Extremities Exam: Normal Inspection. absent: Tenderness - Neurological Exam Neurological Exam: Altered - Psychiatric Exam Psychiatric exam: Flat Affect - Skin Skin Exam: Dry, Warm Assessment and Plan (1) CKD (chronic kidney disease) stage 4, GFR 15-29 ml/min Status: Acute (2) JOY (acute kidney injury) Status: Acute (3) Dementia Status: Acute (4) Bilateral hydronephrosis Status: Acute - Assessment and Plan (Free Text) Plan: Increase fluid rehydration, na bicarb renal functio nuclear scan- evaluate significance of hydro- likely has CKD 4 though follow up hyperkalemia
[2017-12-02] MEDS: Divalproex 125 mg Sprinkle Capsule PO SCH ×2 (11:21→17:58)
[2017-12-02] MEDS: DiphenhydrAMINE 50 mg/ml Inj IVP PRN (11:21)
[2017-12-02] MEDS: Sodium Chloride 0.45% 1,000 ML IV SCH ×2 (11:22→22:20)
[2017-12-02 14:02] LABS: CALCIUM 9.2 mg/dl (8.6-10.4)
--- NOTE | 2017-12-02 14:54 | CP.PCM.PN ---
Subjective - Date & Time of Evaluation Date of Evaluation: 12/02/17 Time of Evaluation: 09:45 - Subjective Subjective: clinically same Objective - Vital Signs/Intake and Output Vital Signs (last 24 hours): Temp Pulse Resp BP Pulse Ox 97.8 F 115 H 20 119/78 99 12/02/17 07:15 12/02/17 07:15 12/02/17 07:15 12/02/17 11:13 12/02/17 07:15 Intake and Output: 12/02/17 12/02/17 06:59 18:59 Intake Total 1550 Output Total 50 Balance 1500 - Medications Medications: Current Medications Acetaminophen (Tylenol 325mg Tab) 650 mg PO Q6 PRN PRN Reason: Pain, Mild (1-3) Last Admin: 11/25/17 21:50 Dose: 650 mg Ciprofloxacin (Cipro) 500 mg PO Q24H NEL PRN Reason: Protocol Last Admin: 12/01/17 16:28 Dose: 500 mg Dextrose (Dextrose 50% Inj) 0 ml IV STAT PRN; Protocol PRN Reason: Hypoglycemia Protocol Dextrose (Glutose 15) 15 gm PO ONCE PRN; Protocol PRN Reason: Hypoglycemia Protocol Diphenhydramine HCl (Benadryl) 25 mg IVP Q8 PRN PRN Reason: Agitation Last Admin: 12/02/17 11:21 Dose: 25 mg Divalproex Sodium (Depakote Sprinkles) 125 mg PO BID [facility] Last Admin: 12/02/17 11:21 Dose: 125 mg Famotidine (Pepcid) 20 mg PO DAILY [facility] Last Admin: 12/02/17 11:13 Dose: 20 mg Glucagon (Glucagen Diagnostic Kit) 1 mg IM STAT PRN; Protocol PRN Reason: Hypoglycemia Protocol Sodium Chloride (Sodium Chloride 0.45%) 1,000 mls @ 100 mls/hr IV .Q10H [facility] Last Admin: 12/02/17 11:22 Dose: 100 mls/hr Insulin Aspart (Novolog) 0 unit SC ACHS NEL PRN Reason: Protocol Last Admin: 12/02/17 12:41 Dose: Not Given Insulin Glargine (Lantus) 15 unit SC HS [facility] Last Admin: 12/01/17 21:24 Dose: 15 unit Lorazepam (Ativan) 1 mg PO TID PRN PRN Reason: Agitation Last Admin: 12/02/17 11:13 Dose: 1 mg Metoprolol Tartrate (Lopressor) 25 mg PO BID [facility] Last Admin: 12/02/17 11:13 Dose: 25 mg Mirtazapine (Remeron) 7.5 mg PO HS [facility] Last Admin: 12/01/17 21:24 Dose: 7.5 mg Risperidone (Risperdal Tab) 1 mg PO DAILY [facility] Last Admin: 12/02/17 11:14 Dose: 1 mg Sodium Bicarbonate (Sodium Bicarbonate Tab) 650 mg PO Q6 [facility] Last Admin: 12/02/17 11:14 Dose: 650 mg Tamsulosin HCl (Flomax) 0.4 mg PO DAILY [facility] Last Admin: 12/02/17 11:14 Dose: 0.4 mg - Labs Labs: 12/01/17 07:01 12/02/17 13:41 - Constitutional Appears: Well - Head Exam Head Exam: ATRAUMATIC, NORMAL INSPECTION, NORMOCEPHALIC - Eye Exam Eye Exam: EOMI, Normal appearance, PERRL Pupil Exam: NORMAL ACCOMODATION, PERRL - ENT Exam ENT Exam: Mucous Membranes Moist, Normal Exam - Neck Exam Neck Exam: Full ROM, Normal Inspection. absent: Lymphadenopathy - Respiratory Exam Respiratory Exam: Decreased Breath Sounds - Cardiovascular Exam Cardiovascular Exam: REGULAR RHYTHM, +S1, +S2 - GI/Abdominal Exam GI & Abdominal Exam: Soft, Diminished Bowel Sounds - Rectal Exam Rectal Exam: Deferred
[2017-12-02] MEDS ORDERED: Sod Polystyrene Sulf 15 gm/60 ml Susp PO ONE ×2 (17:43→19:51)
[2017-12-02] MEDS: (Lantus) Insulin Glargine, Recombinant SC SCH (22:02)
[2017-12-03] MEDS: (Novolog) Insulin Aspart, Recombinant 100 u/ml 10 ml vial SC SCH ×4 (07:20→21:29)
[2017-12-03] MEDS: Divalproex 125 mg Sprinkle Capsule PO SCH ×2 (09:50→18:26)
[2017-12-03 11:36] LABS: ALBUMIN 3.9 g/dL (3.5-5.0); CALCIUM 8.9 mg/dl (8.6-10.4)
[2017-12-03] MEDS ORDERED: Sod Polystyrene Sulf 15 gm/60 ml Susp PO ONE (11:57)
[2017-12-03] MEDS: Sodium Chloride 0.45% 1,000 ML IV SCH ×2 (12:40→18:38)
--- NOTE | 2017-12-03 13:37 | CP.PCM.PN ---
Subjective - Date & Time of Evaluation Date of Evaluation: 12/03/17 Time of Evaluation: 13:34 - Subjective Subjective: appears same renal function stable with IV fluids and oral bicarb renal function scan ordered - awaiting results bilateral hydro likely chronic azotemia, lytes stable Objective - Vital Signs/Intake and Output Vital Signs (last 24 hours): Temp Pulse Resp BP Pulse Ox 97.4 F L 94 H 20 107/61 98 12/02/17 15:07 12/03/17 09:46 12/02/17 15:07 12/03/17 09:54 12/02/17 15:07 - Medications Medications: Current Medications Acetaminophen (Tylenol 325mg Tab) 650 mg PO Q6 PRN PRN Reason: Pain, Mild (1-3) Last Admin: 11/25/17 21:50 Dose: 650 mg Ciprofloxacin (Cipro) 500 mg PO Q24H NEL PRN Reason: Protocol Last Admin: 12/02/17 16:21 Dose: 500 mg Dextrose (Dextrose 50% Inj) 0 ml IV STAT PRN; Protocol PRN Reason: Hypoglycemia Protocol Dextrose (Glutose 15) 15 gm PO ONCE PRN; Protocol PRN Reason: Hypoglycemia Protocol Diphenhydramine HCl (Benadryl) 25 mg IVP Q8 PRN PRN Reason: Agitation Last Admin: 12/02/17 11:21 Dose: 25 mg Divalproex Sodium (Depakote Sprinkles) 125 mg PO BID [facility] Last Admin: 12/03/17 09:50 Dose: 125 mg Famotidine (Pepcid) 20 mg PO DAILY [facility] Last Admin: 12/03/17 09:50 Dose: 20 mg Glucagon (Glucagen Diagnostic Kit) 1 mg IM STAT PRN; Protocol PRN Reason: Hypoglycemia Protocol Sodium Chloride (Sodium Chloride 0.45%) 1,000 mls @ 100 mls/hr IV .Q10H [facility] Last Admin: 12/03/17 12:40 Dose: 100 mls/hr Insulin Aspart (Novolog) 0 unit SC ACHS NEL PRN Reason: Protocol Last Admin: 12/03/17 11:54 Dose: Not Given Insulin Glargine (Lantus) 15 unit SC HS [facility] Last Admin: 12/02/17 22:02 Dose: Not Given Lorazepam (Ativan) 1 mg PO TID PRN PRN Reason: Agitation Last Admin: 12/02/17 11:13 Dose: 1 mg Metoprolol Tartrate (Lopressor) 25 mg PO BID [facility] Last Admin: 12/03/17 09:54 Dose: 25 mg Mirtazapine (Remeron) 7.5 mg PO HS [facility] Last Admin: 12/02/17 22:17 Dose: 7.5 mg Risperidone (Risperdal Tab) 1 mg PO DAILY [facility] Last Admin: 12/03/17 09:50 Dose: Not Given Sodium Bicarbonate (Sodium Bicarbonate Tab) 650 mg PO Q6 [facility] Last Admin: 12/03/17 12:29 Dose: 650 mg Tamsulosin HCl (Flomax) 0.4 mg PO DAILY [facility] Last Admin: 12/03/17 09:50 Dose: 0.4 mg - Labs Labs: 12/01/17 07:01 12/03/17 11:05 - Constitutional Appears: No Acute Distress, Chronically Ill - Head Exam Head Exam: ATRAUMATIC, NORMAL INSPECTION - Eye Exam Eye Exam: EOMI, Normal appearance - Neck Exam Neck Exam: Normal Inspection. absent: Tenderness - Respiratory Exam Respiratory Exam: Clear to Ausculation Bilateral, NORMAL BREATHING PATTERN - Cardiovascular Exam Cardiovascular Exam: REGULAR RHYTHM, +S1 - GI/Abdominal Exam GI & Abdominal Exam: Soft. absent: Tenderness - Extremities Exam Extremities Exam: Normal Inspection. absent: Tenderness - Neurological Exam Neurological Exam: Awake, CN II-XII Intact - Skin Skin Exam: Dry, Warm Assessment and Plan (1) CKD (chronic kidney disease) stage 4, GFR 15-29 ml/min Status: Acute (2) JOY (acute kidney injury) Status: Acute (3) Dementia Status: Acute (4) Bilateral hydronephrosis Status: Acute - Assessment and Plan (Free Text) Plan: repeat chemistries IV fluids, oral bicarb renal function scan same other meds
--- NOTE | 2017-12-03 18:15 | NM ---
Date of service: 12/02/2017 PROCEDURE: Nuclear medicine Renal Scan HISTORY: evaluate function, has hydro COMPARISON: Comparison is made with the previous ultrasound of the kidneys dated 12/01/2017 TECHNIQUE: 21.3 mCi of technetium DTPA was administered intravenously. Sequential flow images of the kidneys were obtained for 90 secs, 3 secs a frame. Perfusion images were performed over 30 mins, 1 min/frame. Finally, delayed images were obtained 30 mins post tracer injection. FINDINGS: There is delayed in the tracer uptake by the right kidney. There is also delayed in the excoriation of the radial activity in the collecting system on the right comparing to the left. The right kidney appears smaller than the left. Peak Time (mins): LEFT and RIGHT kidneys: 14.5 and 22.5, respectively. Differential Perfusion: LEFT and RIGHT kidneys: 54 percent and 46 percent, respectively. IMPRESSION: Mild delayed tracer uptake and excretion by the right kidney compared to the left. Mild decrease in the right kidney function comparing to the left.
--- NOTE | 2017-12-03 20:15 | CP.PCM.PN ---
Subjective - Date & Time of Evaluation Date of Evaluation: 12/03/17 Time of Evaluation: 02:25 - Subjective Subjective: dictated Objective - Vital Signs/Intake and Output Vital Signs (last 24 hours): Temp Pulse Resp BP Pulse Ox 97.6 F 118 H 20 132/63 97 12/03/17 15:00 12/03/17 15:00 12/03/17 15:00 12/03/17 18:27 12/03/17 15:00 Intake and Output: 12/03/17 12/04/17 18:59 06:59 Intake Total 1050 Output Total 475 Balance 575 - Medications Medications: Current Medications Acetaminophen (Tylenol 325mg Tab) 650 mg PO Q6 PRN PRN Reason: Pain, Mild (1-3) Last Admin: 11/25/17 21:50 Dose: 650 mg Ciprofloxacin (Cipro) 500 mg PO Q24H NEL PRN Reason: Protocol Last Admin: 12/03/17 14:40 Dose: 500 mg Dextrose (Dextrose 50% Inj) 0 ml IV STAT PRN; Protocol PRN Reason: Hypoglycemia Protocol Dextrose (Glutose 15) 15 gm PO ONCE PRN; Protocol PRN Reason: Hypoglycemia Protocol Diphenhydramine HCl (Benadryl) 25 mg IVP Q8 PRN PRN Reason: Agitation Last Admin: 12/02/17 11:21 Dose: 25 mg Divalproex Sodium (Depakote Sprinkles) 125 mg PO BID [facility] Last Admin: 12/03/17 18:26 Dose: 125 mg Famotidine (Pepcid) 20 mg PO DAILY [facility] Last Admin: 12/03/17 09:50 Dose: 20 mg Glucagon (Glucagen Diagnostic Kit) 1 mg IM STAT PRN; Protocol PRN Reason: Hypoglycemia Protocol Sodium Chloride (Sodium Chloride 0.45%) 1,000 mls @ 100 mls/hr IV .Q10H [facility] Last Admin: 12/03/17 18:38 Dose: Not Given Insulin Aspart (Novolog) 0 unit SC ACHS NEL PRN Reason: Protocol Last Admin: 12/03/17 18:25 Dose: 2 unit Insulin Glargine (Lantus) 15 unit SC HS [facility] Last Admin: 12/02/17 22:02 Dose: Not Given Lorazepam (Ativan) 1 mg PO TID PRN PRN Reason: Agitation Last Admin: 12/03/17 16:49 Dose: 1 mg Metoprolol Tartrate (Lopressor) 25 mg PO BID [facility] Last Admin: 12/03/17 18:27 Dose: 25 mg Mirtazapine (Remeron) 7.5 mg PO HS [facility] Last Admin: 12/02/17 22:17 Dose: 7.5 mg Risperidone (Risperdal Tab) 1 mg PO DAILY [facility] Last Admin: 12/03/17 09:50 Dose: Not Given Sodium Bicarbonate (Sodium Bicarbonate Tab) 650 mg PO Q6 [facility] Last Admin: 12/03/17 18:26 Dose: 650 mg Tamsulosin HCl (Flomax) 0.4 mg PO DAILY [facility] Last Admin: 12/03/17 09:50 Dose: 0.4 mg - Labs Labs: 12/01/17 07:01 12/03/17 11:05
--- NOTE | 2017-12-03 20:49 | CP.PCM.PN ---
Subjective - Date & Time of Evaluation Date of Evaluation: 12/03/17 Time of Evaluation: 09:15 - Subjective Subjective: clinically same Objective - Vital Signs/Intake and Output Vital Signs (last 24 hours): Temp Pulse Resp BP Pulse Ox 97.6 F 118 H 20 132/63 97 12/03/17 15:00 12/03/17 15:00 12/03/17 15:00 12/03/17 18:27 12/03/17 15:00 Intake and Output: 12/03/17 12/04/17 18:59 06:59 Intake Total 1050 Output Total 475 Balance 575 - Medications Medications: Current Medications Acetaminophen (Tylenol 325mg Tab) 650 mg PO Q6 PRN PRN Reason: Pain, Mild (1-3) Last Admin: 11/25/17 21:50 Dose: 650 mg Ciprofloxacin (Cipro) 500 mg PO Q24H NEL PRN Reason: Protocol Last Admin: 12/03/17 14:40 Dose: 500 mg Dextrose (Dextrose 50% Inj) 0 ml IV STAT PRN; Protocol PRN Reason: Hypoglycemia Protocol Dextrose (Glutose 15) 15 gm PO ONCE PRN; Protocol PRN Reason: Hypoglycemia Protocol Diphenhydramine HCl (Benadryl) 25 mg IVP Q8 PRN PRN Reason: Agitation Last Admin: 12/02/17 11:21 Dose: 25 mg Divalproex Sodium (Depakote Sprinkles) 125 mg PO BID [facility] Last Admin: 12/03/17 18:26 Dose: 125 mg Famotidine (Pepcid) 20 mg PO DAILY [facility] Last Admin: 12/03/17 09:50 Dose: 20 mg Glucagon (Glucagen Diagnostic Kit) 1 mg IM STAT PRN; Protocol PRN Reason: Hypoglycemia Protocol Sodium Chloride (Sodium Chloride 0.45%) 1,000 mls @ 100 mls/hr IV .Q10H [facility] Last Admin: 12/03/17 18:38 Dose: Not Given Insulin Aspart (Novolog) 0 unit SC ACHS NEL PRN Reason: Protocol Last Admin: 12/03/17 18:25 Dose: 2 unit Insulin Glargine (Lantus) 15 unit SC HS [facility] Last Admin: 12/02/17 22:02 Dose: Not Given Lorazepam (Ativan) 1 mg PO TID PRN PRN Reason: Agitation Last Admin: 12/03/17 16:49 Dose: 1 mg Metoprolol Tartrate (Lopressor) 25 mg PO BID [facility] Last Admin: 12/03/17 18:27 Dose: 25 mg Mirtazapine (Remeron) 7.5 mg PO HS [facility] Last Admin: 12/02/17 22:17 Dose: 7.5 mg Risperidone (Risperdal Tab) 1 mg PO DAILY [facility] Last Admin: 12/03/17 09:50 Dose: Not Given Sodium Bicarbonate (Sodium Bicarbonate Tab) 650 mg PO Q6 [facility] Last Admin: 12/03/17 18:26 Dose: 650 mg Tamsulosin HCl (Flomax) 0.4 mg PO DAILY [facility] Last Admin: 12/03/17 09:50 Dose: 0.4 mg - Labs Labs: 12/01/17 07:01 12/03/17 11:05 - Constitutional Appears: Well - Head Exam Head Exam: ATRAUMATIC, NORMAL INSPECTION, NORMOCEPHALIC - Eye Exam Eye Exam: EOMI, Normal appearance, PERRL Pupil Exam: NORMAL ACCOMODATION, PERRL - ENT Exam ENT Exam: Mucous Membranes Moist, Normal Exam - Neck Exam Neck Exam: Full ROM, Normal Inspection. absent: Lymphadenopathy - Respiratory Exam Respiratory Exam: Decreased Breath Sounds - Cardiovascular Exam Cardiovascular Exam: REGULAR RHYTHM, +S1, +S2 - GI/Abdominal Exam GI & Abdominal Exam: Soft, Diminished Bowel Sounds - Rectal Exam Rectal Exam: Deferred
[2017-12-03] MEDS: (Lantus) Insulin Glargine, Recombinant SC SCH (22:18)
--- NOTE | 2017-12-03 23:56 | PN ---
DATE: 12/03/2017 SUBJECTIVE: The patient still remains confused and agitated. He is restrained and is on one to one. OBJECTIVE: VITAL SIGNS: T-max is 97.6, heart rate of 118, blood pressure 107/70, respirations are 20. HEENT: Head is atraumatic, normocephalic. NECK: Supple, limited exam. LUNGS: Clear. HEART: S1, S2 is regular. He has a colostomy bag. EXTREMITIES: Have no edema. LABORATORY DATA: Labs are noted. Urine culture came out negative. Blood cultures are negative. He did the coagulase negative which was probably a contaminant and had a urine culture which had Enterobacter. IMAGING STUDIES: He had a renal scan result, which is back now and he has bilateral hydronephrosis, which the renal attending think that is chronic. He did a renal scan and the renal scan shows mild delayed trace uptake in its region by the right kidney compared to the left. The left is 54% and right is 46% and mild decrease in the right kidney functions. ASSESSMENT AND PLAN: So, both kidneys are functioning. He has probably chronic hydronephrosis. He is on Cipro and he has been on Cipro antibiotic since he came to the hospital. So, we will continue for now and discuss the plan with the renal attending. Teresa Barnett MD
[2017-12-04] MEDS: Sodium Chloride 0.45% 1,000 ML IV SCH ×2 (01:57→21:45)
[2017-12-04] MEDS: (Novolog) Insulin Aspart, Recombinant 100 u/ml 10 ml vial SC SCH ×4 (07:41→21:40)
--- NOTE | 2017-12-04 07:59 | CP.PCM.PN ---
Subjective - Date & Time of Evaluation Date of Evaluation: 12/04/17 Time of Evaluation: 07:56 - Subjective Subjective: Azotemia about same Renal scan in conjunction with ultrasound likely significant for CKD- from chronic hydro BP controlled pt alert, no new complaint K remains elevated despite IV fluids and oral bicarb Objective - Vital Signs/Intake and Output Vital Signs (last 24 hours): Temp Pulse Resp BP Pulse Ox 97.8 F 81 20 100/57 L 97 12/03/17 23:10 12/03/17 23:10 12/03/17 23:10 12/03/17 23:10 12/03/17 23:10 Intake and Output: 12/04/17 12/04/17 06:59 18:59 Intake Total 1120 Output Total 400 Balance 720 - Medications Medications: Current Medications Acetaminophen (Tylenol 325mg Tab) 650 mg PO Q6 PRN PRN Reason: Pain, Mild (1-3) Last Admin: 11/25/17 21:50 Dose: 650 mg Ciprofloxacin (Cipro) 500 mg PO Q24H [facility] PRN Reason: Protocol Last Admin: 12/03/17 14:40 Dose: 500 mg Dextrose (Dextrose 50% Inj) 0 ml IV STAT PRN; Protocol PRN Reason: Hypoglycemia Protocol Dextrose (Glutose 15) 15 gm PO ONCE PRN; Protocol PRN Reason: Hypoglycemia Protocol Diphenhydramine HCl (Benadryl) 25 mg IVP Q8 PRN PRN Reason: Agitation Last Admin: 12/02/17 11:21 Dose: 25 mg Divalproex Sodium (Depakote Sprinkles) 125 mg PO BID [facility] Last Admin: 12/03/17 18:26 Dose: 125 mg Famotidine (Pepcid) 20 mg PO DAILY [facility] Last Admin: 12/03/17 09:50 Dose: 20 mg Glucagon (Glucagen Diagnostic Kit) 1 mg IM STAT PRN; Protocol PRN Reason: Hypoglycemia Protocol Sodium Chloride (Sodium Chloride 0.45%) 1,000 mls @ 100 mls/hr IV .Q10H [facility] Last Admin: 12/04/17 01:57 Dose: Not Given Insulin Aspart (Novolog) 0 unit SC ACHS [facility] PRN Reason: Protocol Last Admin: 12/04/17 07:41 Dose: Not Given Insulin Glargine (Lantus) 15 unit SC HS [facility] Last Admin: 12/03/17 22:18 Dose: 15 unit Lorazepam (Ativan) 1 mg PO TID PRN PRN Reason: Agitation Last Admin: 12/03/17 16:49 Dose: 1 mg Metoprolol Tartrate (Lopressor) 25 mg PO BID [facility] Last Admin: 12/03/17 18:27 Dose: 25 mg Mirtazapine (Remeron) 7.5 mg PO HS [facility] Last Admin: 12/03/17 22:18 Dose: 7.5 mg Risperidone (Risperdal Tab) 1 mg PO DAILY [facility] Last Admin: 12/03/17 09:50 Dose: Not Given Sodium Bicarbonate (Sodium Bicarbonate Tab) 650 mg PO Q6 [facility] Last Admin: 12/04/17 06:06 Dose: 650 mg Tamsulosin HCl (Flomax) 0.4 mg PO DAILY [facility] Last Admin: 12/03/17 09:50 Dose: 0.4 mg - Labs Labs: 12/01/17 07:01 12/03/17 11:05 - Constitutional Appears: No Acute Distress, Chronically Ill - Head Exam Head Exam: ATRAUMATIC, NORMAL INSPECTION - Eye Exam Eye Exam: EOMI, Normal appearance - Neck Exam Neck Exam: Normal Inspection. absent: Tenderness - Respiratory Exam Respiratory Exam: Clear to Ausculation Bilateral, NORMAL BREATHING PATTERN - Cardiovascular Exam Cardiovascular Exam: REGULAR RHYTHM, +S1 - GI/Abdominal Exam GI & Abdominal Exam: Soft. absent: Tenderness - Extremities Exam Extremities Exam: Normal Inspection. absent: Tenderness - Neurological Exam Neurological Exam: Awake, CN II-XII Intact - Skin Skin Exam: Dry, Warm Assessment and Plan (1) CKD (chronic kidney disease) stage 4, GFR 15-29 ml/min Status: Acute (2) JOY (acute kidney injury) Status: Acute (3) Dementia Status: Acute (4) Bilateral hydronephrosis Status: Acute - Assessment and Plan (Free Text) Plan: Add kayexalate follow up chemistries
[2017-12-04 08:04] LABS: ALB/GLOB RATIO 0.9 (1.0-2.1); ALBUMIN 3.6 g/dL (3.5-5.0); CALCIUM 8.7 mg/dl (8.6-10.4)
[2017-12-04] MEDS: Sod Polystyrene Sulf 15 gm/60 ml Susp PO SCH (10:01)
[2017-12-04] MEDS: Divalproex 125 mg Sprinkle Capsule PO SCH ×2 (10:02→18:47)
--- NOTE | 2017-12-04 15:32 | CP.PCM.PN ---
Subjective - Date & Time of Evaluation Date of Evaluation: 12/04/17 Time of Evaluation: 09:30 - Subjective Subjective: clinically same Objective - Vital Signs/Intake and Output Vital Signs (last 24 hours): Temp Pulse Resp BP Pulse Ox 97.7 F 77 20 111/61 96 12/04/17 07:00 12/04/17 07:00 12/04/17 07:00 12/04/17 10:02 12/04/17 07:00 Intake and Output: 12/04/17 12/04/17 06:59 18:59 Intake Total 1120 Output Total 400 Balance 720 - Medications Medications: Current Medications Acetaminophen (Tylenol 325mg Tab) 650 mg PO Q6 PRN PRN Reason: Pain, Mild (1-3) Last Admin: 11/25/17 21:50 Dose: 650 mg Ciprofloxacin (Cipro) 500 mg PO Q24H [facility] PRN Reason: Protocol Last Admin: 12/04/17 14:50 Dose: 500 mg Dextrose (Dextrose 50% Inj) 0 ml IV STAT PRN; Protocol PRN Reason: Hypoglycemia Protocol Dextrose (Glutose 15) 15 gm PO ONCE PRN; Protocol PRN Reason: Hypoglycemia Protocol Diphenhydramine HCl (Benadryl) 25 mg IVP Q8 PRN PRN Reason: Agitation Last Admin: 12/02/17 11:21 Dose: 25 mg Divalproex Sodium (Depakote Sprinkles) 125 mg PO BID [facility] Last Admin: 12/04/17 10:02 Dose: 125 mg Famotidine (Pepcid) 20 mg PO DAILY [facility] Last Admin: 12/04/17 10:02 Dose: 20 mg Glucagon (Glucagen Diagnostic Kit) 1 mg IM STAT PRN; Protocol PRN Reason: Hypoglycemia Protocol Sodium Chloride (Sodium Chloride 0.45%) 1,000 mls @ 100 mls/hr IV .Q10H [facility] Last Admin: 12/04/17 01:57 Dose: Not Given Insulin Aspart (Novolog) 0 unit SC ACHS NEL PRN Reason: Protocol Last Admin: 12/04/17 12:57 Dose: 2 unit Insulin Glargine (Lantus) 15 unit SC HS [facility] Last Admin: 12/03/17 22:18 Dose: 15 unit Lorazepam (Ativan) 1 mg PO TID PRN PRN Reason: Agitation Last Admin: 12/04/17 10:05 Dose: 1 mg Metoprolol Tartrate (Lopressor) 25 mg PO BID [facility] Last Admin: 12/04/17 10:02 Dose: 25 mg Mirtazapine (Remeron) 7.5 mg PO HS [facility] Last Admin: 12/03/17 22:18 Dose: 7.5 mg Risperidone (Risperdal Tab) 1 mg PO DAILY [facility] Last Admin: 12/04/17 10:01 Dose: 1 mg Sodium Bicarbonate (Sodium Bicarbonate Tab) 650 mg PO Q6 [facility] Last Admin: 12/04/17 12:57 Dose: 650 mg Sodium Polystyrene Sulfonate (Kayexalate Susp) 15 gm PO DAILY [facility] Last Admin: 12/04/17 10:01 Dose: 15 gm Tamsulosin HCl (Flomax) 0.4 mg PO DAILY [facility] Last Admin: 12/04/17 10:02 Dose: 0.4 mg - Labs Labs: 12/01/17 07:01 12/04/17 07:36 - Constitutional Appears: Well - Head Exam Head Exam: ATRAUMATIC, NORMAL INSPECTION, NORMOCEPHALIC - Eye Exam Eye Exam: EOMI, Normal appearance, PERRL Pupil Exam: NORMAL ACCOMODATION, PERRL - ENT Exam ENT Exam: Mucous Membranes Moist, Normal Exam - Neck Exam Neck Exam: Full ROM, Normal Inspection. absent: Lymphadenopathy - Respiratory Exam Respiratory Exam: Decreased Breath Sounds - Cardiovascular Exam Cardiovascular Exam: REGULAR RHYTHM, +S1, +S2 - GI/Abdominal Exam GI & Abdominal Exam: Soft, Diminished Bowel Sounds - Rectal Exam Rectal Exam: Deferred
[2017-12-04] MEDS: (Lantus) Insulin Glargine, Recombinant SC SCH (21:43)
[2017-12-05] MEDS: (Novolog) Insulin Aspart, Recombinant 100 u/ml 10 ml vial SC SCH ×4 (08:17→21:30)
[2017-12-05 09:27] LABS: ALB/GLOB RATIO 1.1 (1.0-2.1); ALBUMIN 3.9 g/dL (3.5-5.0)
[2017-12-05] MEDS: Divalproex 125 mg Sprinkle Capsule PO SCH ×2 (10:58→18:13)
[2017-12-05] MEDS: Sod Polystyrene Sulf 15 gm/60 ml Susp PO SCH (10:59)
[2017-12-05] MEDS: Sodium Chloride 0.45% 1,000 ML IV SCH ×2 (10:59→18:30)
--- NOTE | 2017-12-05 17:33 | CP.PCM.PN ---
Subjective - Date & Time of Evaluation Date of Evaluation: 12/05/17 Time of Evaluation: 08:45 - Subjective Subjective: clinically same Objective - Vital Signs/Intake and Output Vital Signs (last 24 hours): Temp Pulse Resp BP Pulse Ox 97.3 F L 123 H 22 144/79 96 12/05/17 16:00 12/05/17 16:00 12/05/17 16:00 12/05/17 16:00 12/05/17 16:00 Intake and Output: 12/05/17 12/05/17 06:59 18:59 Intake Total 1520 Output Total 2500 Balance -980 - Medications Medications: Current Medications Acetaminophen (Tylenol 325mg Tab) 650 mg PO Q6 PRN PRN Reason: Pain, Mild (1-3) Last Admin: 11/25/17 21:50 Dose: 650 mg Dextrose (Dextrose 50% Inj) 0 ml IV STAT PRN; Protocol PRN Reason: Hypoglycemia Protocol Dextrose (Glutose 15) 15 gm PO ONCE PRN; Protocol PRN Reason: Hypoglycemia Protocol Diphenhydramine HCl (Benadryl) 25 mg IVP Q8 PRN PRN Reason: Agitation Last Admin: 12/02/17 11:21 Dose: 25 mg Divalproex Sodium (Depakote Sprinkles) 125 mg PO BID [facility] Last Admin: 12/05/17 10:58 Dose: 125 mg Famotidine (Pepcid) 20 mg PO DAILY [facility] Last Admin: 12/05/17 11:24 Dose: Not Given Glucagon (Glucagen Diagnostic Kit) 1 mg IM STAT PRN; Protocol PRN Reason: Hypoglycemia Protocol Sodium Chloride (Sodium Chloride 0.45%) 1,000 mls @ 100 mls/hr IV .Q10H [facility] Last Admin: 12/05/17 10:59 Dose: 100 mls/hr Insulin Aspart (Novolog) 0 unit SC ACHS NEL PRN Reason: Protocol Last Admin: 12/05/17 12:18 Dose: Not Given Insulin Glargine (Lantus) 15 unit SC HS [facility] Last Admin: 12/04/17 21:43 Dose: 15 unit Lorazepam (Ativan) 1 mg PO TID PRN PRN Reason: Agitation Last Admin: 12/05/17 13:59 Dose: 1 mg Metoprolol Tartrate (Lopressor) 25 mg PO BID [facility] Last Admin: 12/05/17 10:58 Dose: 25 mg Mirtazapine (Remeron) 7.5 mg PO HS [facility] Last Admin: 12/04/17 21:44 Dose: 7.5 mg Risperidone (Risperdal Tab) 1 mg PO DAILY [facility] Last Admin: 12/05/17 10:58 Dose: 1 mg Sodium Bicarbonate (Sodium Bicarbonate Tab) 650 mg PO Q6 [facility] Last Admin: 12/05/17 10:59 Dose: 650 mg Sodium Polystyrene Sulfonate (Kayexalate Susp) 15 gm PO DAILY [facility] Last Admin: 12/05/17 10:59 Dose: 15 gm Tamsulosin HCl (Flomax) 0.4 mg PO DAILY [facility] Last Admin: 12/05/17 10:58 Dose: 0.4 mg - Labs Labs: 12/01/17 07:01 12/05/17 08:42 - Constitutional Appears: Well - Head Exam Head Exam: ATRAUMATIC, NORMAL INSPECTION, NORMOCEPHALIC - Eye Exam Eye Exam: EOMI, Normal appearance, PERRL Pupil Exam: NORMAL ACCOMODATION, PERRL - ENT Exam ENT Exam: Mucous Membranes Moist, Normal Exam - Neck Exam Neck Exam: Full ROM, Normal Inspection. absent: Lymphadenopathy - Respiratory Exam Respiratory Exam: Decreased Breath Sounds - Cardiovascular Exam Cardiovascular Exam: REGULAR RHYTHM, +S1, +S2 - GI/Abdominal Exam GI & Abdominal Exam: Soft, Diminished Bowel Sounds - Rectal Exam Rectal Exam: Deferred
[2017-12-05] MEDS: (Lantus) Insulin Glargine, Recombinant SC SCH (21:28)
[2017-12-05] MEDS: DiphenhydrAMINE 50 mg/ml Inj IVP PRN (21:29)
[2017-12-06] MEDS: Sodium Chloride 0.45% 1,000 ML IV SCH (04:00)
[2017-12-06] MEDS: (Novolog) Insulin Aspart, Recombinant 100 u/ml 10 ml vial SC SCH ×4 (07:30→21:20)
[2017-12-06] MEDS: Divalproex 125 mg Sprinkle Capsule PO SCH ×2 (10:06→18:16)
[2017-12-06] MEDS: Sod Polystyrene Sulf 15 gm/60 ml Susp PO SCH (10:06)
--- NOTE | 2017-12-06 11:31 | CP.PCM.PN ---
Subjective - Date & Time of Evaluation Date of Evaluation: 12/06/17 Time of Evaluation: 11:29 - Subjective Subjective: alert; no new complaint UO- 3100ml Azotemia improved with fluid hydration more alert Objective - Vital Signs/Intake and Output Vital Signs (last 24 hours): Temp Pulse Resp BP Pulse Ox 97.7 F 118 H 18 115/63 98 12/06/17 07:30 12/05/17 23:05 12/06/17 07:30 12/06/17 10:10 12/06/17 07:30 Intake and Output: 12/06/17 12/06/17 06:59 18:59 Intake Total 1600 Output Total 2325 Balance -725 - Medications Medications: Current Medications Acetaminophen (Tylenol 325mg Tab) 650 mg PO Q6 PRN PRN Reason: Pain, Mild (1-3) Last Admin: 11/25/17 21:50 Dose: 650 mg Ciprofloxacin (Cipro) 250 mg PO DAILY [facility] PRN Reason: Protocol Dextrose (Dextrose 50% Inj) 0 ml IV STAT PRN; Protocol PRN Reason: Hypoglycemia Protocol Last Admin: 12/06/17 06:53 Dose: 50 ml Dextrose (Glutose 15) 15 gm PO ONCE PRN; Protocol PRN Reason: Hypoglycemia Protocol Diphenhydramine HCl (Benadryl) 25 mg IVP Q8 PRN PRN Reason: Agitation Last Admin: 12/05/17 21:29 Dose: 25 mg Divalproex Sodium (Depakote Sprinkles) 125 mg PO BID [facility] Last Admin: 12/06/17 10:06 Dose: 125 mg Famotidine (Pepcid) 20 mg PO DAILY [facility] Last Admin: 12/06/17 10:05 Dose: 20 mg Glucagon (Glucagen Diagnostic Kit) 1 mg IM STAT PRN; Protocol PRN Reason: Hypoglycemia Protocol Sodium Chloride (Sodium Chloride 0.45%) 1,000 mls @ 100 mls/hr IV .Q10H [facility] Last Admin: 12/06/17 04:00 Dose: 100 mls/hr Insulin Aspart (Novolog) 0 unit SC ACHS [facility] PRN Reason: Protocol Last Admin: 12/06/17 07:30 Dose: Not Given Insulin Glargine (Lantus) 15 unit SC HS [facility] Last Admin: 12/05/17 21:28 Dose: 15 unit Metoprolol Tartrate (Lopressor) 25 mg PO BID [facility] Last Admin: 12/06/17 10:10 Dose: 25 mg Mirtazapine (Remeron) 7.5 mg PO HS [facility] Last Admin: 12/05/17 21:29 Dose: 7.5 mg Risperidone (Risperdal Tab) 1 mg PO DAILY [facility] Last Admin: 12/06/17 10:04 Dose: 1 mg Sodium Bicarbonate (Sodium Bicarbonate Tab) 650 mg PO Q6 [facility] Last Admin: 12/06/17 06:29 Dose: Not Given Sodium Polystyrene Sulfonate (Kayexalate Susp) 15 gm PO DAILY [facility] Last Admin: 12/06/17 10:06 Dose: 15 gm Tamsulosin HCl (Flomax) 0.4 mg PO DAILY [facility] Last Admin: 12/06/17 10:05 Dose: 0.4 mg - Labs Labs: 12/01/17 07:01 12/05/17 08:42 - Constitutional Appears: No Acute Distress, Chronically Ill - Head Exam Head Exam: ATRAUMATIC, NORMAL INSPECTION - Eye Exam Eye Exam: EOMI, Normal appearance - Neck Exam Neck Exam: Normal Inspection. absent: Tenderness - Respiratory Exam Respiratory Exam: Clear to Ausculation Bilateral, NORMAL BREATHING PATTERN - Cardiovascular Exam Cardiovascular Exam: REGULAR RHYTHM, +S1 - GI/Abdominal Exam GI & Abdominal Exam: Soft. absent: Tenderness - Extremities Exam Extremities Exam: Normal Inspection. absent: Tenderness - Neurological Exam Neurological Exam: Altered, CN II-XII Intact - Skin Skin Exam: Dry, Warm Assessment and Plan (1) CKD (chronic kidney disease) stage 4, GFR 15-29 ml/min Status: Acute (2) JOY (acute kidney injury) Status: Acute (3) Dementia Status: Acute (4) Bilateral hydronephrosis Status: Acute - Assessment and Plan (Free Text) Plan: Continue mild IV hydration, oral na bicarb BP controlled- continue to monitor monitor chemistries
[2017-12-06 11:54] LABS: ALB/GLOB RATIO 1.1 (1.0-2.1); ALBUMIN 3.7 g/dL (3.5-5.0); CALCIUM 9.2 mg/dl (8.6-10.4)
--- NOTE | 2017-12-06 13:44 | CP.PCM.PN ---
Subjective - Date & Time of Evaluation Date of Evaluation: 12/06/17 Time of Evaluation: 01:30 - Subjective Subjective: dictated Objective - Vital Signs/Intake and Output Vital Signs (last 24 hours): Temp Pulse Resp BP Pulse Ox 97.7 F 118 H 18 115/63 98 12/06/17 07:30 12/05/17 23:05 12/06/17 07:30 12/06/17 10:10 12/06/17 07:30 Intake and Output: 12/06/17 12/06/17 06:59 18:59 Intake Total 1600 Output Total 2325 Balance -725 - Medications Medications: Current Medications Acetaminophen (Tylenol 325mg Tab) 650 mg PO Q6 PRN PRN Reason: Pain, Mild (1-3) Last Admin: 11/25/17 21:50 Dose: 650 mg Ciprofloxacin (Cipro) 250 mg PO DAILY [facility] PRN Reason: Protocol Dextrose (Dextrose 50% Inj) 0 ml IV STAT PRN; Protocol PRN Reason: Hypoglycemia Protocol Last Admin: 12/06/17 06:53 Dose: 50 ml Dextrose (Glutose 15) 15 gm PO ONCE PRN; Protocol PRN Reason: Hypoglycemia Protocol Diphenhydramine HCl (Benadryl) 25 mg IVP Q8 PRN PRN Reason: Agitation Last Admin: 12/05/17 21:29 Dose: 25 mg Divalproex Sodium (Depakote Sprinkles) 125 mg PO BID [facility] Last Admin: 12/06/17 10:06 Dose: 125 mg Famotidine (Pepcid) 20 mg PO DAILY [facility] Last Admin: 12/06/17 10:05 Dose: 20 mg Glucagon (Glucagen Diagnostic Kit) 1 mg IM STAT PRN; Protocol PRN Reason: Hypoglycemia Protocol Sodium Chloride (Sodium Chloride 0.45%) 1,000 mls @ 100 mls/hr IV .Q10H [facility] Last Admin: 12/06/17 04:00 Dose: 100 mls/hr Insulin Aspart (Novolog) 0 unit SC ACHS [facility] PRN Reason: Protocol Last Admin: 12/06/17 12:27 Dose: Not Given Insulin Glargine (Lantus) 15 unit SC HS [facility] Last Admin: 12/05/17 21:28 Dose: 15 unit Metoprolol Tartrate (Lopressor) 25 mg PO BID [facility] Last Admin: 12/06/17 10:10 Dose: 25 mg Mirtazapine (Remeron) 7.5 mg PO HS [facility] Last Admin: 12/05/17 21:29 Dose: 7.5 mg Risperidone (Risperdal Tab) 1 mg PO DAILY [facility] Last Admin: 12/06/17 10:04 Dose: 1 mg Sodium Bicarbonate (Sodium Bicarbonate Tab) 650 mg PO Q6 [facility] Last Admin: 12/06/17 11:44 Dose: 650 mg Sodium Polystyrene Sulfonate (Kayexalate Susp) 15 gm PO DAILY [facility] Last Admin: 12/06/17 10:06 Dose: 15 gm Tamsulosin HCl (Flomax) 0.4 mg PO DAILY [facility] Last Admin: 12/06/17 10:05 Dose: 0.4 mg - Labs Labs: 12/01/17 07:01 12/06/17 11:22
--- NOTE | 2017-12-06 19:02 | CP.PCM.PN ---
Subjective - Date & Time of Evaluation Date of Evaluation: 12/06/17 Time of Evaluation: 08:45 - Subjective Subjective: clinically same Objective - Vital Signs/Intake and Output Vital Signs (last 24 hours): Temp Pulse Resp BP Pulse Ox 97.7 F 118 H 18 115/63 98 12/06/17 07:30 12/05/17 23:05 12/06/17 07:30 12/06/17 18:17 12/06/17 07:30 Intake and Output: 12/06/17 12/07/17 18:59 06:59 Intake Total 1160 Output Total 590 Balance 570 - Medications Medications: Current Medications Acetaminophen (Tylenol 325mg Tab) 650 mg PO Q6 PRN PRN Reason: Pain, Mild (1-3) Last Admin: 11/25/17 21:50 Dose: 650 mg Dextrose (Dextrose 50% Inj) 0 ml IV STAT PRN; Protocol PRN Reason: Hypoglycemia Protocol Last Admin: 12/06/17 06:53 Dose: 50 ml Dextrose (Glutose 15) 15 gm PO ONCE PRN; Protocol PRN Reason: Hypoglycemia Protocol Diphenhydramine HCl (Benadryl) 25 mg IVP Q8 PRN PRN Reason: Agitation Last Admin: 12/05/17 21:29 Dose: 25 mg Divalproex Sodium (Depakote Sprinkles) 125 mg PO BID [facility] Last Admin: 12/06/17 18:16 Dose: 125 mg Famotidine (Pepcid) 20 mg PO DAILY [facility] Last Admin: 12/06/17 10:05 Dose: 20 mg Glucagon (Glucagen Diagnostic Kit) 1 mg IM STAT PRN; Protocol PRN Reason: Hypoglycemia Protocol Sodium Chloride (Sodium Chloride 0.45%) 1,000 mls @ 100 mls/hr IV .Q10H [facility] Last Admin: 12/06/17 04:00 Dose: 100 mls/hr Insulin Aspart (Novolog) 0 unit SC ACHS [facility] PRN Reason: Protocol Last Admin: 12/06/17 12:27 Dose: Not Given Insulin Glargine (Lantus) 15 unit SC HS [facility] Last Admin: 12/05/17 21:28 Dose: 15 unit Metoprolol Tartrate (Lopressor) 25 mg PO BID [facility] Last Admin: 12/06/17 18:17 Dose: 25 mg Mirtazapine (Remeron) 7.5 mg PO HS [facility] Last Admin: 12/05/17 21:29 Dose: 7.5 mg Risperidone (Risperdal Tab) 1 mg PO DAILY [facility] Last Admin: 12/06/17 10:04 Dose: 1 mg Sodium Bicarbonate (Sodium Bicarbonate Tab) 650 mg PO Q6 [facility] Last Admin: 12/06/17 18:16 Dose: 650 mg Sodium Polystyrene Sulfonate (Kayexalate Susp) 15 gm PO DAILY [facility] Last Admin: 12/06/17 10:06 Dose: 15 gm Tamsulosin HCl (Flomax) 0.4 mg PO DAILY [facility] Last Admin: 12/06/17 10:05 Dose: 0.4 mg - Labs Labs: 12/01/17 07:01 12/06/17 11:22 - Constitutional Appears: Well - Head Exam Head Exam: ATRAUMATIC, NORMAL INSPECTION, NORMOCEPHALIC - Eye Exam Eye Exam: EOMI, Normal appearance, PERRL Pupil Exam: NORMAL ACCOMODATION, PERRL - ENT Exam ENT Exam: Mucous Membranes Moist, Normal Exam - Neck Exam Neck Exam: Full ROM, Normal Inspection. absent: Lymphadenopathy - Respiratory Exam Respiratory Exam: Decreased Breath Sounds - Cardiovascular Exam Cardiovascular Exam: REGULAR RHYTHM, +S1, +S2 - GI/Abdominal Exam GI & Abdominal Exam: Soft, Diminished Bowel Sounds - Rectal Exam Rectal Exam: Deferred
--- NOTE | 2017-12-06 19:47 | PN ---
DATE: 12/06/2017 PHYSICAL EXAMINATION: VITAL SIGNS: The patient is afebrile. Vitals are stable. HEENT: Head is atraumatic. NECK: Supple. LUNGS: Clear. HEART: S1 and S2 regular, but he does not allow to examine well. He is still with the __agitation___ and he is verbalizing in Vietnamese. EXTREMITIES: He is moving all his extremities. He is on one-to-one. LABORATORY DATA: His potassium is 5.5 and creatinine is 2. ASSESSMENT AND PLAN: I will discontinue the Cipro today as he does have chronic hydronephrosis and urine culture now is negative and blood cultures with coagulase negative Staph contaminant even though they were present in both of these. We will discontinue Cipro. The patient is still with hyperkalemia and needs to be monitored by the Renal and ___for__ agitation. Teresa Barnett MD MTDMaricarmen
[2017-12-06] MEDS: (Lantus) Insulin Glargine, Recombinant SC SCH (22:24)
[2017-12-07] MEDS: DiphenhydrAMINE 50 mg/ml Inj IVP PRN ×2 (00:10→16:54)
[2017-12-07] MEDS: Sodium Chloride 0.45% 1,000 ML IV SCH ×2 (00:10→09:58)
--- NOTE | 2017-12-07 07:53 | CP.PCM.PN ---
Subjective - Date & Time of Evaluation Date of Evaluation: 12/07/17 Time of Evaluation: 07:50 - Subjective Subjective: seen and examined labs noted renal scan noted has ostomy pt is confused, sitter reports adequate po intake. incontinent Objective - Vital Signs/Intake and Output Vital Signs (last 24 hours): Temp Pulse Resp BP Pulse Ox 97.8 F 123 H 20 113/76 98 12/06/17 23:20 12/06/17 23:20 12/06/17 23:20 12/06/17 23:20 12/06/17 23:20 Intake and Output: 12/07/17 12/07/17 06:59 18:59 Intake Total 1900 Output Total 1300 Balance 600 - Medications Medications: Current Medications Acetaminophen (Tylenol 325mg Tab) 650 mg PO Q6 PRN PRN Reason: Pain, Mild (1-3) Last Admin: 11/25/17 21:50 Dose: 650 mg Dextrose (Dextrose 50% Inj) 0 ml IV STAT PRN; Protocol PRN Reason: Hypoglycemia Protocol Last Admin: 12/06/17 06:53 Dose: 50 ml Dextrose (Glutose 15) 15 gm PO ONCE PRN; Protocol PRN Reason: Hypoglycemia Protocol Diphenhydramine HCl (Benadryl) 25 mg IVP Q8 PRN PRN Reason: Agitation Last Admin: 12/07/17 00:10 Dose: 25 mg Divalproex Sodium (Depakote Sprinkles) 125 mg PO BID [facility] Last Admin: 12/06/17 18:16 Dose: 125 mg Famotidine (Pepcid) 20 mg PO DAILY [facility] Last Admin: 12/06/17 10:05 Dose: 20 mg Glucagon (Glucagen Diagnostic Kit) 1 mg IM STAT PRN; Protocol PRN Reason: Hypoglycemia Protocol Sodium Chloride (Sodium Chloride 0.45%) 1,000 mls @ 100 mls/hr IV .Q10H [facility] Last Admin: 12/07/17 00:10 Dose: Not Given Insulin Aspart (Novolog) 0 unit SC ACHS [facility] PRN Reason: Protocol Last Admin: 12/06/17 21:20 Dose: Not Given Insulin Glargine (Lantus) 15 unit SC HS [facility] Last Admin: 12/06/17 22:24 Dose: 15 unit Metoprolol Tartrate (Lopressor) 25 mg PO BID [facility] Last Admin: 12/06/17 18:17 Dose: 25 mg Mirtazapine (Remeron) 7.5 mg PO HS [facility] Last Admin: 12/06/17 22:25 Dose: 7.5 mg Risperidone (Risperdal Tab) 1 mg PO DAILY [facility] Last Admin: 12/06/17 10:04 Dose: 1 mg Sodium Bicarbonate (Sodium Bicarbonate Tab) 650 mg PO Q6 [facility] Last Admin: 12/07/17 06:39 Dose: Not Given Sodium Polystyrene Sulfonate (Kayexalate Susp) 15 gm PO DAILY [facility] Last Admin: 12/06/17 10:06 Dose: 15 gm Tamsulosin HCl (Flomax) 0.4 mg PO DAILY [facility] Last Admin: 12/06/17 10:05 Dose: 0.4 mg - Labs Labs: 12/01/17 07:01 12/06/17 11:22 - Constitutional Appears: No Acute Distress, Chronically Ill - Head Exam Head Exam: NORMAL INSPECTION, NORMOCEPHALIC - Eye Exam Eye Exam: Normal appearance, PERRL - ENT Exam ENT Exam: Mucous Membranes Moist, Normal Exam - Neck Exam Neck Exam: Full ROM, Normal Inspection - Respiratory Exam Respiratory Exam: Clear to Ausculation Bilateral, NORMAL BREATHING PATTERN - Cardiovascular Exam Cardiovascular Exam: REGULAR RHYTHM, RRR - GI/Abdominal Exam GI & Abdominal Exam: Distended, Soft Additional comments: colostomy - Extremities Exam Extremities Exam: Normal Inspection - Neurological Exam Neurological Exam: Awake (confused) - Skin Skin Exam: Intact, Normal Color Assessment and Plan (1) Metabolic acidosis Status: Acute (2) Bilateral hydronephrosis Status: Acute (3) CKD (chronic kidney disease) stage 4, GFR 15-29 ml/min Status: Acute (4) Dementia Status: Acute (5) UTI (urinary tract infection) Status: Acute - Assessment and Plan (Free Text) Assessment: maintain po bicarb low k diet gentle iv fluids started on po kayexelate, watch k
[2017-12-07] MEDS: (Novolog) Insulin Aspart, Recombinant 100 u/ml 10 ml vial SC SCH ×4 (08:15→21:46)
[2017-12-07] MEDS: Divalproex 125 mg Sprinkle Capsule PO SCH ×2 (09:54→17:12)
[2017-12-07] MEDS: Sod Polystyrene Sulf 15 gm/60 ml Susp PO SCH (09:56)
[2017-12-07 11:23] LABS: ALB/GLOB RATIO 1.1 (1.0-2.1); ALBUMIN 3.7 g/dL (3.5-5.0); CALCIUM 8.9 mg/dl (8.6-10.4)
--- NOTE | 2017-12-07 18:00 | CP.PCM.PN ---
Subjective - Date & Time of Evaluation Date of Evaluation: 12/07/17 Time of Evaluation: 09:00 - Subjective Subjective: clinically same Objective - Vital Signs/Intake and Output Vital Signs (last 24 hours): Temp Pulse Resp BP Pulse Ox 98.1 F 126 H 20 131/72 96 12/07/17 15:06 12/07/17 15:06 12/07/17 15:06 12/07/17 17:15 12/07/17 15:06 Intake and Output: 12/07/17 12/07/17 06:59 18:59 Intake Total 1900 Output Total 1300 Balance 600 - Medications Medications: Current Medications Acetaminophen (Tylenol 325mg Tab) 650 mg PO Q6 PRN PRN Reason: Pain, Mild (1-3) Last Admin: 11/25/17 21:50 Dose: 650 mg Dextrose (Dextrose 50% Inj) 0 ml IV STAT PRN; Protocol PRN Reason: Hypoglycemia Protocol Last Admin: 12/06/17 06:53 Dose: 50 ml Dextrose (Glutose 15) 15 gm PO ONCE PRN; Protocol PRN Reason: Hypoglycemia Protocol Diphenhydramine HCl (Benadryl) 25 mg IVP Q8 PRN PRN Reason: Agitation Last Admin: 12/07/17 16:54 Dose: 25 mg Divalproex Sodium (Depakote Sprinkles) 125 mg PO BID [facility] Last Admin: 12/07/17 17:12 Dose: 125 mg Famotidine (Pepcid) 20 mg PO DAILY [facility] Last Admin: 12/07/17 09:59 Dose: 20 mg Glucagon (Glucagen Diagnostic Kit) 1 mg IM STAT PRN; Protocol PRN Reason: Hypoglycemia Protocol Sodium Chloride (Sodium Chloride 0.45%) 1,000 mls @ 100 mls/hr IV .Q10H [facility] Last Admin: 12/07/17 09:58 Dose: Not Given Insulin Aspart (Novolog) 0 unit SC ACHS [facility] PRN Reason: Protocol Last Admin: 12/07/17 17:12 Dose: 2 unit Insulin Glargine (Lantus) 15 unit SC HS [facility] Last Admin: 12/06/17 22:24 Dose: 15 unit Metoprolol Tartrate (Lopressor) 25 mg PO BID [facility] Last Admin: 12/07/17 17:15 Dose: 25 mg Mirtazapine (Remeron) 7.5 mg PO HS [facility] Last Admin: 12/06/17 22:25 Dose: 7.5 mg Risperidone (Risperdal Tab) 1 mg PO DAILY [facility] Last Admin: 12/07/17 09:55 Dose: 1 mg Sodium Bicarbonate (Sodium Bicarbonate Tab) 650 mg PO Q6 [facility] Last Admin: 12/07/17 17:12 Dose: 650 mg Sodium Polystyrene Sulfonate (Kayexalate Susp) 15 gm PO DAILY [facility] Last Admin: 12/07/17 09:56 Dose: 15 gm Tamsulosin HCl (Flomax) 0.4 mg PO DAILY [facility] Last Admin: 12/07/17 09:55 Dose: 0.4 mg - Labs Labs: 12/01/17 07:01 12/07/17 10:58 - Constitutional Appears: Well - Head Exam Head Exam: ATRAUMATIC, NORMAL INSPECTION, NORMOCEPHALIC - Eye Exam Eye Exam: EOMI, Normal appearance, PERRL Pupil Exam: NORMAL ACCOMODATION, PERRL - ENT Exam ENT Exam: Mucous Membranes Moist, Normal Exam - Neck Exam Neck Exam: Full ROM, Normal Inspection. absent: Lymphadenopathy - Respiratory Exam Respiratory Exam: Decreased Breath Sounds - Cardiovascular Exam Cardiovascular Exam: REGULAR RHYTHM, +S1, +S2 - GI/Abdominal Exam GI & Abdominal Exam: Soft, Diminished Bowel Sounds - Rectal Exam Rectal Exam: Deferred
[2017-12-07] MEDS: (Lantus) Insulin Glargine, Recombinant SC SCH (21:45)
--- NOTE | 2017-12-07 23:40 | PQF ---
PROVIDER RESPONSE TEXT: Acute on Chronic Systolic CHF REVIEWER QUERY TEXT: CHF Acuity and Type Congestive Heart Failure is documented in the Medical Record. Please document the type and acuity (in cludes probable or suspected) Such as: Type: -- Systolic -- Diastolic -- Combined -- Other, please specify Acuity: -- Acute -- Chronic -- Acute on chronic -- Other, please specify Also please document the underlying cause of the CHF (includes probable or suspected) The patient's Clinical Indicators include: LA is moderately dilated. Normal size RA,RV and LV. Mild concnetric LVH. Severe global LV systolic dysfunciton with LVEF of <20%. LV diastolic funciton is undetermined. Please consider verify and document Query created by: Adolph Bello on 12/07/2017 5:13 PM Electronically signed by: Reza STAHL 12/07/2017 11:37 PM
[2017-12-08] MEDS: Sodium Chloride 0.45% 1,000 ML IV SCH ×2 (06:26→12:50)
[2017-12-08 07:48] LABS: ALB/GLOB RATIO 1.1 (1.0-2.1); ALBUMIN 3.7 g/dL (3.5-5.0); CALCIUM 9.2 mg/dl (8.6-10.4)
[2017-12-08] MEDS: (Novolog) Insulin Aspart, Recombinant 100 u/ml 10 ml vial SC SCH ×4 (08:20→22:32)
[2017-12-08] MEDS: Sod Polystyrene Sulf 15 gm/60 ml Susp PO SCH (11:30)
[2017-12-08] MEDS: Divalproex 125 mg Sprinkle Capsule PO SCH ×2 (11:30→18:04)
--- NOTE | 2017-12-08 12:46 | CP.PCM.PN ---
Subjective - Date & Time of Evaluation Date of Evaluation: 12/08/17 Time of Evaluation: 12:44 - Subjective Subjective: Alert, same mental status UO- 1000ml Azotemia stable Has moderate ostomy losses- maintain on fluids, decrease rate Objective - Vital Signs/Intake and Output Vital Signs (last 24 hours): Temp Pulse Resp BP Pulse Ox 97.7 F 129 H 20 126/79 98 12/07/17 23:05 12/07/17 23:05 12/07/17 23:05 12/08/17 11:31 12/07/17 23:05 Intake and Output: 12/08/17 12/08/17 06:59 18:59 Intake Total 100 Output Total 250 Balance -150 - Medications Medications: Current Medications Acetaminophen (Tylenol 325mg Tab) 650 mg PO Q6 PRN PRN Reason: Pain, Mild (1-3) Last Admin: 11/25/17 21:50 Dose: 650 mg Dextrose (Dextrose 50% Inj) 0 ml IV STAT PRN; Protocol PRN Reason: Hypoglycemia Protocol Last Admin: 12/06/17 06:53 Dose: 50 ml Dextrose (Glutose 15) 15 gm PO ONCE PRN; Protocol PRN Reason: Hypoglycemia Protocol Diphenhydramine HCl (Benadryl) 25 mg IVP Q8 PRN PRN Reason: Agitation Last Admin: 12/07/17 16:54 Dose: 25 mg Divalproex Sodium (Depakote Sprinkles) 125 mg PO BID [facility] Last Admin: 12/08/17 11:30 Dose: 125 mg Famotidine (Pepcid) 20 mg PO DAILY [facility] Last Admin: 12/08/17 11:31 Dose: 20 mg Glucagon (Glucagen Diagnostic Kit) 1 mg IM STAT PRN; Protocol PRN Reason: Hypoglycemia Protocol Sodium Chloride (Sodium Chloride 0.45%) 1,000 mls @ 100 mls/hr IV .Q10H [facility] Last Admin: 12/08/17 06:26 Dose: Not Given Insulin Aspart (Novolog) 0 unit SC ACHS [facility] PRN Reason: Protocol Last Admin: 12/08/17 12:22 Dose: 2 unit Insulin Glargine (Lantus) 15 unit SC HS [facility] Last Admin: 12/07/17 21:45 Dose: 15 unit Metoprolol Tartrate (Lopressor) 25 mg PO BID [facility] Last Admin: 12/08/17 11:31 Dose: 25 mg Mirtazapine (Remeron) 7.5 mg PO HS [facility] Last Admin: 12/07/17 21:45 Dose: 7.5 mg Risperidone (Risperdal Tab) 1 mg PO DAILY [facility] Last Admin: 12/08/17 11:31 Dose: 1 mg Sodium Bicarbonate (Sodium Bicarbonate Tab) 650 mg PO Q6 [facility] Last Admin: 12/08/17 11:30 Dose: 650 mg Sodium Polystyrene Sulfonate (Kayexalate Susp) 15 gm PO DAILY [facility] Last Admin: 12/08/17 11:30 Dose: 15 gm Tamsulosin HCl (Flomax) 0.4 mg PO DAILY [facility] Last Admin: 12/08/17 11:31 Dose: 0.4 mg - Labs Labs: 12/01/17 07:01 12/08/17 07:27 - Constitutional Appears: No Acute Distress, Chronically Ill - Head Exam Head Exam: ATRAUMATIC, NORMAL INSPECTION - Eye Exam Eye Exam: EOMI, Normal appearance - Neck Exam Neck Exam: Normal Inspection. absent: Tenderness - Respiratory Exam Respiratory Exam: Clear to Ausculation Bilateral, NORMAL BREATHING PATTERN - Cardiovascular Exam Cardiovascular Exam: REGULAR RHYTHM, +S1 - GI/Abdominal Exam GI & Abdominal Exam: Soft. absent: Tenderness - Extremities Exam Extremities Exam: Normal Inspection. absent: Tenderness - Neurological Exam Neurological Exam: Altered - Skin Skin Exam: Dry, Warm Assessment and Plan (1) CKD (chronic kidney disease) stage 4, GFR 15-29 ml/min Status: Acute (2) JOY (acute kidney injury) Status: Acute (3) Dementia Status: Acute (4) Bilateral hydronephrosis Status: Acute - Assessment and Plan (Free Text) Plan: IV fluids- decrease rate continue na bicarb
--- NOTE | 2017-12-08 17:52 | CP.PCM.PN ---
Subjective - Date & Time of Evaluation Date of Evaluation: 12/08/17 Time of Evaluation: 08:40 - Subjective Subjective: clinically same Objective - Vital Signs/Intake and Output Vital Signs (last 24 hours): Temp Pulse Resp BP Pulse Ox 97.7 F 129 H 20 126/79 98 12/07/17 23:05 12/07/17 23:05 12/07/17 23:05 12/08/17 11:31 12/07/17 23:05 Intake and Output: 12/08/17 12/08/17 06:59 18:59 Intake Total 100 Output Total 250 Balance -150 - Medications Medications: Current Medications Acetaminophen (Tylenol 325mg Tab) 650 mg PO Q6 PRN PRN Reason: Pain, Mild (1-3) Last Admin: 11/25/17 21:50 Dose: 650 mg Dextrose (Dextrose 50% Inj) 0 ml IV STAT PRN; Protocol PRN Reason: Hypoglycemia Protocol Last Admin: 12/06/17 06:53 Dose: 50 ml Dextrose (Glutose 15) 15 gm PO ONCE PRN; Protocol PRN Reason: Hypoglycemia Protocol Diphenhydramine HCl (Benadryl) 25 mg IVP Q8 PRN PRN Reason: Agitation Last Admin: 12/07/17 16:54 Dose: 25 mg Divalproex Sodium (Depakote Sprinkles) 125 mg PO BID [facility] Last Admin: 12/08/17 11:30 Dose: 125 mg Famotidine (Pepcid) 20 mg PO DAILY [facility] Last Admin: 12/08/17 11:31 Dose: 20 mg Glucagon (Glucagen Diagnostic Kit) 1 mg IM STAT PRN; Protocol PRN Reason: Hypoglycemia Protocol Sodium Chloride (Sodium Chloride 0.45%) 1,000 mls @ 50 mls/hr IV .Q20H [facility] Last Admin: 12/08/17 12:50 Dose: 50 mls/hr Insulin Aspart (Novolog) 0 unit SC ACHS [facility] PRN Reason: Protocol Last Admin: 12/08/17 17:16 Dose: Not Given Insulin Glargine (Lantus) 15 unit SC HS [facility] Last Admin: 12/07/17 21:45 Dose: 15 unit Metoprolol Tartrate (Lopressor) 25 mg PO BID [facility] Last Admin: 12/08/17 11:31 Dose: 25 mg Mirtazapine (Remeron) 7.5 mg PO HS [facility] Last Admin: 12/07/17 21:45 Dose: 7.5 mg Risperidone (Risperdal Tab) 1 mg PO DAILY [facility] Last Admin: 12/08/17 11:31 Dose: 1 mg Sodium Bicarbonate (Sodium Bicarbonate Tab) 650 mg PO Q6 [facility] Last Admin: 12/08/17 11:30 Dose: 650 mg Sodium Polystyrene Sulfonate (Kayexalate Susp) 15 gm PO DAILY [facility] Last Admin: 12/08/17 11:30 Dose: 15 gm Tamsulosin HCl (Flomax) 0.4 mg PO DAILY [facility] Last Admin: 12/08/17 11:31 Dose: 0.4 mg - Labs Labs: 12/01/17 07:01 12/08/17 07:27 - Constitutional Appears: Well - Head Exam Head Exam: ATRAUMATIC, NORMAL INSPECTION, NORMOCEPHALIC - Eye Exam Eye Exam: EOMI, Normal appearance, PERRL Pupil Exam: NORMAL ACCOMODATION, PERRL - ENT Exam ENT Exam: Mucous Membranes Moist, Normal Exam - Neck Exam Neck Exam: Full ROM, Normal Inspection. absent: Lymphadenopathy - Respiratory Exam Respiratory Exam: Decreased Breath Sounds - Cardiovascular Exam Cardiovascular Exam: REGULAR RHYTHM, +S1, +S2 - GI/Abdominal Exam GI & Abdominal Exam: Soft, Diminished Bowel Sounds - Rectal Exam Rectal Exam: Deferred
[2017-12-08] MEDS: DiphenhydrAMINE 50 mg/ml Inj IVP PRN (22:28)
[2017-12-08] MEDS: (Lantus) Insulin Glargine, Recombinant SC SCH (22:41)
[2017-12-09] MEDS: (Novolog) Insulin Aspart, Recombinant 100 u/ml 10 ml vial SC SCH ×4 (07:19→22:04)
[2017-12-09 08:14] LABS: BASO # 0.1 K/uL (0.0-0.2); BASO % 1.2 % (0.0-2.0); EOS # 0.3 K/uL (0.0-0.7); HEMOGLOBIN 9.6 g/dL (12.0-18.0); LYMPH # 1.3 K/uL (1.0-4.3); LYMPH % 22.3 % (20.0-40.0); MEAN CELL VOLUME 84.9 fL (80.0-94.0); MEAN PLATELET VOLUME 7.6 fL (7.2-11.7); MONO # 0.6 K/uL (0.0-0.8); MONO % 10.6 % (0.0-10.0); NEUT # 3.5 K/uL (1.8-7.0); NEUT % 59.9 % (50.0-75.0); RBC 3.44 Mil/uL (4.40-5.90); RED CELL DISTRIBUTION WIDTH 14.8 % (11.5-14.5); WHITE BLOOD COUNT 5.8 K/uL (4.8-10.8)
[2017-12-09 08:27] LABS: CALCIUM 9.2 mg/dl (8.6-10.4)
--- NOTE | 2017-12-09 09:17 | CP.PCM.PN ---
Subjective - Date & Time of Evaluation Date of Evaluation: 12/09/17 Time of Evaluation: 09:15 - Subjective Subjective: Appears same UO not recorded chemistries acceptable BP controlled Objective - Vital Signs/Intake and Output Vital Signs (last 24 hours): Temp Pulse Resp BP Pulse Ox 98.1 F 101 H 20 122/68 98 12/09/17 07:30 12/09/17 07:30 12/09/17 07:30 12/09/17 07:30 12/09/17 07:30 Intake and Output: 12/09/17 12/09/17 06:59 18:59 Intake Total 650 Output Total 300 Balance 350 - Medications Medications: Current Medications Acetaminophen (Tylenol 325mg Tab) 650 mg PO Q6 PRN PRN Reason: Pain, Mild (1-3) Last Admin: 11/25/17 21:50 Dose: 650 mg Dextrose (Dextrose 50% Inj) 0 ml IV STAT PRN; Protocol PRN Reason: Hypoglycemia Protocol Last Admin: 12/06/17 06:53 Dose: 50 ml Dextrose (Glutose 15) 15 gm PO ONCE PRN; Protocol PRN Reason: Hypoglycemia Protocol Diphenhydramine HCl (Benadryl) 25 mg IVP Q8 PRN PRN Reason: Agitation Last Admin: 12/08/17 22:28 Dose: 25 mg Divalproex Sodium (Depakote Sprinkles) 125 mg PO BID [facility] Last Admin: 12/08/17 18:04 Dose: 125 mg Famotidine (Pepcid) 20 mg PO DAILY [facility] Last Admin: 12/08/17 11:31 Dose: 20 mg Glucagon (Glucagen Diagnostic Kit) 1 mg IM STAT PRN; Protocol PRN Reason: Hypoglycemia Protocol Sodium Chloride (Sodium Chloride 0.45%) 1,000 mls @ 50 mls/hr IV .Q20H [facility] Last Admin: 12/08/17 12:50 Dose: 50 mls/hr Insulin Aspart (Novolog) 0 unit SC ACHS [facility] PRN Reason: Protocol Last Admin: 12/09/17 07:19 Dose: Not Given Insulin Glargine (Lantus) 15 unit SC HS [facility] Last Admin: 12/08/17 22:41 Dose: 15 unit Metoprolol Tartrate (Lopressor) 25 mg PO BID [facility] Last Admin: 12/08/17 18:05 Dose: 25 mg Mirtazapine (Remeron) 7.5 mg PO HS [facility] Last Admin: 12/08/17 22:28 Dose: 7.5 mg Risperidone (Risperdal Tab) 1 mg PO DAILY [facility] Last Admin: 12/08/17 11:31 Dose: 1 mg Sodium Bicarbonate (Sodium Bicarbonate Tab) 650 mg PO Q6 [facility] Last Admin: 12/09/17 06:41 Dose: 650 mg Sodium Polystyrene Sulfonate (Kayexalate Susp) 15 gm PO DAILY [facility] Last Admin: 12/08/17 11:30 Dose: 15 gm Tamsulosin HCl (Flomax) 0.4 mg PO DAILY [facility] Last Admin: 12/08/17 11:31 Dose: 0.4 mg - Labs Labs: 12/09/17 08:05 12/09/17 08:05 - Constitutional Appears: No Acute Distress, Chronically Ill - Head Exam Head Exam: ATRAUMATIC, NORMAL INSPECTION - Eye Exam Eye Exam: EOMI, Normal appearance - Neck Exam Neck Exam: Normal Inspection. absent: Tenderness - Respiratory Exam Respiratory Exam: Clear to Ausculation Bilateral, NORMAL BREATHING PATTERN - Cardiovascular Exam Cardiovascular Exam: REGULAR RHYTHM, +S1 - GI/Abdominal Exam GI & Abdominal Exam: Soft. absent: Tenderness - Extremities Exam Extremities Exam: Normal Inspection. absent: Tenderness - Neurological Exam Neurological Exam: Awake, CN II-XII Intact - Skin Skin Exam: Dry, Warm Assessment and Plan (1) CKD (chronic kidney disease) stage 4, GFR 15-29 ml/min Status: Acute (2) JOY (acute kidney injury) Status: Acute (3) Dementia Status: Acute (4) Bilateral hydronephrosis Status: Acute - Assessment and Plan (Free Text) Plan: Same fluids, na bicarb monitor chemistries
[2017-12-09] MEDS: Divalproex 125 mg Sprinkle Capsule PO SCH ×2 (10:28→17:44)
[2017-12-09] MEDS: Sod Polystyrene Sulf 15 gm/60 ml Susp PO SCH (10:54)
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
--- NOTE | 2017-12-09 16:57 | CP.PCM.PN ---
Subjective - Date & Time of Evaluation Date of Evaluation: 12/09/17 Time of Evaluation: 09:20 - Subjective Subjective: clinically same Objective - Vital Signs/Intake and Output Vital Signs (last 24 hours): Temp Pulse Resp BP Pulse Ox 98.1 F 134 H 20 101/67 98 12/09/17 15:25 12/09/17 15:25 12/09/17 15:25 12/09/17 15:25 12/09/17 07:30 Intake and Output: 12/09/17 12/09/17 06:59 18:59 Intake Total 650 Output Total 300 Balance 350 - Medications Medications: Current Medications Acetaminophen (Tylenol 325mg Tab) 650 mg PO Q6 PRN PRN Reason: Pain, Mild (1-3) Last Admin: 11/25/17 21:50 Dose: 650 mg Benztropine Mesylate (Cogentin) 0.5 mg PO BID [facility] Dextrose (Dextrose 50% Inj) 0 ml IV STAT PRN; Protocol PRN Reason: Hypoglycemia Protocol Last Admin: 12/06/17 06:53 Dose: 50 ml Dextrose (Glutose 15) 15 gm PO ONCE PRN; Protocol PRN Reason: Hypoglycemia Protocol Diphenhydramine HCl (Benadryl) 25 mg IVP Q8 PRN PRN Reason: Agitation Last Admin: 12/08/17 22:28 Dose: 25 mg Divalproex Sodium (Depakote Sprinkles) 125 mg PO BID [facility] Last Admin: 12/09/17 10:28 Dose: 125 mg Famotidine (Pepcid) 20 mg PO DAILY [facility] Last Admin: 12/09/17 10:28 Dose: 20 mg Glucagon (Glucagen Diagnostic Kit) 1 mg IM STAT PRN; Protocol PRN Reason: Hypoglycemia Protocol Sodium Chloride (Sodium Chloride 0.45%) 1,000 mls @ 50 mls/hr IV .Q20H [facility] Last Admin: 12/08/17 12:50 Dose: 50 mls/hr Insulin Aspart (Novolog) 0 unit SC ACHS [facility] PRN Reason: Protocol Last Admin: 12/09/17 12:48 Dose: 2 unit Insulin Glargine (Lantus) 15 unit SC HS [facility] Last Admin: 12/08/17 22:41 Dose: 15 unit Metoprolol Tartrate (Lopressor) 25 mg PO BID [facility] Last Admin: 12/09/17 10:29 Dose: 25 mg Mirtazapine (Remeron) 7.5 mg PO HS [facility] Last Admin: 12/08/17 22:28 Dose: 7.5 mg Risperidone (Risperdal Tab) 1 mg PO BID [facility] Sodium Bicarbonate (Sodium Bicarbonate Tab) 650 mg PO Q6 [facility] Last Admin: 12/09/17 12:48 Dose: 650 mg Sodium Polystyrene Sulfonate (Kayexalate Susp) 15 gm PO DAILY [facility] Last Admin: 12/09/17 10:54 Dose: 15 gm Tamsulosin HCl (Flomax) 0.4 mg PO DAILY [facility] Last Admin: 12/09/17 10:28 Dose: 0.4 mg - Labs Labs: 12/09/17 08:05 12/09/17 08:05 - Constitutional Appears: Well - Head Exam Head Exam: ATRAUMATIC, NORMAL INSPECTION, NORMOCEPHALIC - Eye Exam Eye Exam: EOMI, Normal appearance, PERRL Pupil Exam: NORMAL ACCOMODATION, PERRL - ENT Exam ENT Exam: Mucous Membranes Moist, Normal Exam - Neck Exam Neck Exam: Full ROM, Normal Inspection. absent: Lymphadenopathy - Respiratory Exam Respiratory Exam: Decreased Breath Sounds - Cardiovascular Exam Cardiovascular Exam: REGULAR RHYTHM, +S1, +S2 - GI/Abdominal Exam GI & Abdominal Exam: Soft, Diminished Bowel Sounds - Rectal Exam Rectal Exam: Deferred
[2017-12-09] MEDS: (Lantus) Insulin Glargine, Recombinant SC SCH (22:03)
[2017-12-10] MEDS: Sodium Chloride 0.45% 1,000 ML IV SCH ×2 (05:56→05:57)
[2017-12-10] MEDS: (Novolog) Insulin Aspart, Recombinant 100 u/ml 10 ml vial SC SCH ×4 (08:34→21:32)
[2017-12-10] MEDS: Sod Polystyrene Sulf 15 gm/60 ml Susp PO SCH (10:41)
[2017-12-10] MEDS: Divalproex 125 mg Sprinkle Capsule PO SCH ×2 (10:41→18:15)
--- NOTE | 2017-12-10 13:19 | CP.PCM.PN ---
Subjective - Date & Time of Evaluation Date of Evaluation: 12/10/17 Time of Evaluation: 13:17 - Subjective Subjective: Alert; maintained on IV fluids No new changes; cannot verbalize much repeat chemistries stable- azotemia same, metabolic acidosis improved Objective - Vital Signs/Intake and Output Vital Signs (last 24 hours): Temp Pulse Resp BP Pulse Ox 98.2 F 60 20 122/68 97 12/09/17 23:00 12/09/17 23:00 12/09/17 23:00 12/10/17 10:43 12/09/17 23:00 Intake and Output: 12/10/17 12/10/17 06:59 18:59 Intake Total 400 Output Total 800 Balance -400 - Medications Medications: Current Medications Acetaminophen (Tylenol 325mg Tab) 650 mg PO Q6 PRN PRN Reason: Pain, Mild (1-3) Last Admin: 11/25/17 21:50 Dose: 650 mg Benztropine Mesylate (Cogentin) 0.5 mg PO BID [facility] Last Admin: 12/10/17 10:43 Dose: 0.5 mg Dextrose (Dextrose 50% Inj) 0 ml IV STAT PRN; Protocol PRN Reason: Hypoglycemia Protocol Last Admin: 12/06/17 06:53 Dose: 50 ml Dextrose (Glutose 15) 15 gm PO ONCE PRN; Protocol PRN Reason: Hypoglycemia Protocol Diphenhydramine HCl (Benadryl) 25 mg IVP Q8 PRN PRN Reason: Agitation Last Admin: 12/08/17 22:28 Dose: 25 mg Divalproex Sodium (Depakote Sprinkles) 125 mg PO BID [facility] Last Admin: 12/10/17 10:41 Dose: 125 mg Famotidine (Pepcid) 20 mg PO DAILY [facility] Last Admin: 12/10/17 10:41 Dose: 20 mg Glucagon (Glucagen Diagnostic Kit) 1 mg IM STAT PRN; Protocol PRN Reason: Hypoglycemia Protocol Sodium Chloride (Sodium Chloride 0.45%) 1,000 mls @ 50 mls/hr IV .Q20H [facility] Last Admin: 12/10/17 05:57 Dose: Not Given Insulin Aspart (Novolog) 0 unit SC ACHS [facility] PRN Reason: Protocol Last Admin: 12/10/17 12:07 Dose: Not Given Insulin Glargine (Lantus) 15 unit SC HS [facility] Last Admin: 12/09/17 22:03 Dose: 15 unit Metoprolol Tartrate (Lopressor) 25 mg PO BID [facility] Last Admin: 12/10/17 10:43 Dose: 25 mg Mirtazapine (Remeron) 7.5 mg PO HS [facility] Last Admin: 12/09/17 22:00 Dose: 7.5 mg Risperidone (Risperdal Tab) 1 mg PO BID [facility] Last Admin: 12/10/17 10:41 Dose: 1 mg Sodium Bicarbonate (Sodium Bicarbonate Tab) 650 mg PO Q6 [facility] Last Admin: 12/10/17 12:56 Dose: 650 mg Sodium Polystyrene Sulfonate (Kayexalate Susp) 15 gm PO DAILY [facility] Last Admin: 12/10/17 10:41 Dose: 15 gm Tamsulosin HCl (Flomax) 0.4 mg PO DAILY [facility] Last Admin: 12/10/17 10:41 Dose: 0.4 mg - Labs Labs: 12/09/17 08:05 12/09/17 08:05 - Constitutional Appears: No Acute Distress, Chronically Ill - Head Exam Head Exam: ATRAUMATIC, NORMAL INSPECTION - Eye Exam Eye Exam: EOMI, Normal appearance - Neck Exam Neck Exam: Normal Inspection. absent: Tenderness - Respiratory Exam Respiratory Exam: Clear to Ausculation Bilateral, NORMAL BREATHING PATTERN - Cardiovascular Exam Cardiovascular Exam: REGULAR RHYTHM, +S1 - GI/Abdominal Exam GI & Abdominal Exam: Soft. absent: Tenderness - Extremities Exam Extremities Exam: Normal Inspection. absent: Tenderness - Neurological Exam Neurological Exam: Altered, CN II-XII Intact - Skin Skin Exam: Dry, Warm Assessment and Plan (1) CKD (chronic kidney disease) stage 4, GFR 15-29 ml/min Status: Acute (2) JOY (acute kidney injury) Status: Acute (3) Dementia Status: Acute (4) Bilateral hydronephrosis Status: Acute - Assessment and Plan (Free Text) Plan: Same IV fluids- mild hydration serial chemistries same meds
--- NOTE | 2017-12-10 19:01 | CP.PCM.PN ---
Subjective - Date & Time of Evaluation Date of Evaluation: 12/10/17 Time of Evaluation: 09:00 - Subjective Subjective: clinically same Objective - Vital Signs/Intake and Output Vital Signs (last 24 hours): Temp Pulse Resp BP Pulse Ox 98.2 F 60 20 103/74 97 12/09/17 23:00 12/09/17 23:00 12/09/17 23:00 12/10/17 18:15 12/09/17 23:00 Intake and Output: 12/10/17 12/10/17 06:59 18:59 Intake Total 400 Output Total 800 Balance -400 - Medications Medications: Current Medications Acetaminophen (Tylenol 325mg Tab) 650 mg PO Q6 PRN PRN Reason: Pain, Mild (1-3) Last Admin: 11/25/17 21:50 Dose: 650 mg Benztropine Mesylate (Cogentin) 0.5 mg PO BID [facility] Last Admin: 12/10/17 18:15 Dose: 0.5 mg Dextrose (Dextrose 50% Inj) 0 ml IV STAT PRN; Protocol PRN Reason: Hypoglycemia Protocol Last Admin: 12/06/17 06:53 Dose: 50 ml Dextrose (Glutose 15) 15 gm PO ONCE PRN; Protocol PRN Reason: Hypoglycemia Protocol Diphenhydramine HCl (Benadryl) 25 mg IVP Q8 PRN PRN Reason: Agitation Last Admin: 12/08/17 22:28 Dose: 25 mg Divalproex Sodium (Depakote Sprinkles) 125 mg PO BID [facility] Last Admin: 12/10/17 18:15 Dose: 125 mg Famotidine (Pepcid) 20 mg PO DAILY [facility] Last Admin: 12/10/17 10:41 Dose: 20 mg Glucagon (Glucagen Diagnostic Kit) 1 mg IM STAT PRN; Protocol PRN Reason: Hypoglycemia Protocol Sodium Chloride (Sodium Chloride 0.45%) 1,000 mls @ 50 mls/hr IV .Q20H [facility] Last Admin: 12/10/17 05:57 Dose: Not Given Insulin Aspart (Novolog) 0 unit SC ACHS [facility] PRN Reason: Protocol Last Admin: 12/10/17 18:29 Dose: 3 unit Insulin Glargine (Lantus) 15 unit SC HS [facility] Last Admin: 12/09/17 22:03 Dose: 15 unit Metoprolol Tartrate (Lopressor) 25 mg PO BID [facility] Last Admin: 12/10/17 18:15 Dose: 25 mg Mirtazapine (Remeron) 7.5 mg PO HS [facility] Last Admin: 12/09/17 22:00 Dose: 7.5 mg Risperidone (Risperdal Tab) 1 mg PO BID [facility] Last Admin: 12/10/17 18:15 Dose: 1 mg Sodium Bicarbonate (Sodium Bicarbonate Tab) 650 mg PO Q6 [facility] Last Admin: 12/10/17 18:15 Dose: 650 mg Sodium Polystyrene Sulfonate (Kayexalate Susp) 15 gm PO DAILY [facility] Last Admin: 12/10/17 10:41 Dose: 15 gm Tamsulosin HCl (Flomax) 0.4 mg PO DAILY [facility] Last Admin: 12/10/17 10:41 Dose: 0.4 mg - Labs Labs: 12/09/17 08:05 12/09/17 08:05 - Constitutional Appears: Well - Head Exam Head Exam: ATRAUMATIC, NORMAL INSPECTION, NORMOCEPHALIC - Eye Exam Eye Exam: EOMI, Normal appearance, PERRL Pupil Exam: NORMAL ACCOMODATION, PERRL - ENT Exam ENT Exam: Mucous Membranes Moist, Normal Exam - Neck Exam Neck Exam: Full ROM, Normal Inspection. absent: Lymphadenopathy - Respiratory Exam Respiratory Exam: Decreased Breath Sounds - Cardiovascular Exam Cardiovascular Exam: REGULAR RHYTHM, +S1, +S2 - GI/Abdominal Exam GI & Abdominal Exam: Diminished Bowel Sounds - Rectal Exam Rectal Exam: Deferred
[2017-12-10] MEDS: (Lantus) Insulin Glargine, Recombinant SC SCH (22:07)
[2017-12-11] MEDS: Sodium Chloride 0.45% 1,000 ML IV SCH (01:15)
[2017-12-11] MEDS: (Novolog) Insulin Aspart, Recombinant 100 u/ml 10 ml vial SC SCH ×4 (08:44→21:37)
[2017-12-11] MEDS: Sod Polystyrene Sulf 15 gm/60 ml Susp PO SCH (09:45)
[2017-12-11] MEDS: Divalproex 125 mg Sprinkle Capsule PO SCH ×2 (09:46→17:48)
--- NOTE | 2017-12-11 10:18 | CP.PCM.PN ---
Subjective - Date & Time of Evaluation Date of Evaluation: 12/11/17 Time of Evaluation: 10:15 - Subjective Subjective: pt seen and examined on 1:1 observation alta in mits confused on IV fluids- 1/2 NS ROS- unable to obtain as patient confused Objective - Vital Signs/Intake and Output Vital Signs (last 24 hours): Temp Pulse Resp BP Pulse Ox 97.4 F L 120 H 20 151/78 H 98 12/11/17 08:00 12/11/17 08:00 12/11/17 08:00 12/11/17 09:45 12/11/17 08:00 Intake and Output: 12/11/17 12/11/17 06:59 18:59 Intake Total 650 Output Total 600 Balance 50 - Medications Medications: Current Medications Acetaminophen (Tylenol 325mg Tab) 650 mg PO Q6 PRN PRN Reason: Pain, Mild (1-3) Last Admin: 11/25/17 21:50 Dose: 650 mg Benztropine Mesylate (Cogentin) 0.5 mg PO BID [facility] Last Admin: 12/11/17 09:45 Dose: 0.5 mg Dextrose (Dextrose 50% Inj) 0 ml IV STAT PRN; Protocol PRN Reason: Hypoglycemia Protocol Last Admin: 12/06/17 06:53 Dose: 50 ml Dextrose (Glutose 15) 15 gm PO ONCE PRN; Protocol PRN Reason: Hypoglycemia Protocol Diphenhydramine HCl (Benadryl) 25 mg IVP Q8 PRN PRN Reason: Agitation Last Admin: 12/08/17 22:28 Dose: 25 mg Divalproex Sodium (Depakote Sprinkles) 125 mg PO BID [facility] Last Admin: 12/11/17 09:46 Dose: 125 mg Famotidine (Pepcid) 20 mg PO DAILY [facility] Last Admin: 12/11/17 09:45 Dose: 20 mg Glucagon (Glucagen Diagnostic Kit) 1 mg IM STAT PRN; Protocol PRN Reason: Hypoglycemia Protocol Sodium Chloride (Sodium Chloride 0.45%) 1,000 mls @ 50 mls/hr IV .Q20H [facility] Last Admin: 12/11/17 01:15 Dose: 50 mls/hr Insulin Aspart (Novolog) 0 unit SC ACHS [facility] PRN Reason: Protocol Last Admin: 12/11/17 08:44 Dose: 3 unit Insulin Glargine (Lantus) 15 unit SC HS [facility] Last Admin: 12/10/17 22:07 Dose: 15 unit Metoprolol Tartrate (Lopressor) 25 mg PO BID [facility] Last Admin: 12/11/17 09:45 Dose: 25 mg Mirtazapine (Remeron) 7.5 mg PO HS [facility] Last Admin: 12/10/17 22:07 Dose: 7.5 mg Risperidone (Risperdal Tab) 1 mg PO BID [facility] Last Admin: 12/11/17 09:45 Dose: 1 mg Sodium Bicarbonate (Sodium Bicarbonate Tab) 650 mg PO Q6 [facility] Last Admin: 12/11/17 06:09 Dose: 650 mg Sodium Polystyrene Sulfonate (Kayexalate Susp) 15 gm PO DAILY [facility] Last Admin: 12/11/17 09:45 Dose: 15 gm Tamsulosin HCl (Flomax) 0.4 mg PO DAILY [facility] Last Admin: 12/11/17 09:45 Dose: 0.4 mg - Labs Labs: 12/09/17 08:05 12/09/17 08:05 - Constitutional Appears: Non-toxic, Chronically Ill - Head Exam Head Exam: ATRAUMATIC, NORMOCEPHALIC - Eye Exam Eye Exam: EOMI, PERRL - ENT Exam ENT Exam: Mucous Membranes Moist - Neck Exam Neck Exam: Full ROM - Respiratory Exam Respiratory Exam: Clear to Ausculation Bilateral. absent: Rhonchi, Wheezes - Cardiovascular Exam Cardiovascular Exam: REGULAR RHYTHM, +S1, +S2 - GI/Abdominal Exam GI & Abdominal Exam: Soft. absent: Tenderness - Extremities Exam Extremities Exam: absent: Joint Swelling, Pedal Edema - Neurological Exam Neurological Exam: Awake. absent: Alert, Oriented x3 - Psychiatric Exam Psychiatric exam: Flat Affect - Skin Skin Exam: Dry, Warm Assessment and Plan (1) Anemia Status: Acute (2) CKD (chronic kidney disease) stage 4, GFR 15-29 ml/min Status: Acute (3) Dementia Status: Acute (4) Metabolic acidosis Status: Acute - Assessment and Plan (Free Text) Plan: Cr stable acidosis improve off iv bicarb maintain low rate fluids no labs for 2 days- check labs
[2017-12-11] MEDS: DiphenhydrAMINE 50 mg/ml Inj IVP PRN ×2 (10:31→16:35)
--- NOTE | 2017-12-11 18:13 | CP.PCM.PN ---
Subjective - Date & Time of Evaluation Date of Evaluation: 12/11/17 Time of Evaluation: 09:40 - Subjective Subjective: clinically same Objective - Vital Signs/Intake and Output Vital Signs (last 24 hours): Temp Pulse Resp BP Pulse Ox 97.8 F 125 H 20 132/75 95 12/11/17 15:12 12/11/17 15:12 12/11/17 15:12 12/11/17 17:48 12/11/17 15:12 Intake and Output: 12/11/17 12/11/17 06:59 18:59 Intake Total 650 Output Total 600 1700 Balance 50 -1700 - Medications Medications: Current Medications Acetaminophen (Tylenol 325mg Tab) 650 mg PO Q6 PRN PRN Reason: Pain, Mild (1-3) Last Admin: 11/25/17 21:50 Dose: 650 mg Benztropine Mesylate (Cogentin) 0.5 mg PO BID [facility] Last Admin: 12/11/17 17:48 Dose: 0.5 mg Dextrose (Dextrose 50% Inj) 0 ml IV STAT PRN; Protocol PRN Reason: Hypoglycemia Protocol Last Admin: 12/06/17 06:53 Dose: 50 ml Dextrose (Glutose 15) 15 gm PO ONCE PRN; Protocol PRN Reason: Hypoglycemia Protocol Diphenhydramine HCl (Benadryl) 25 mg IVP Q8 PRN PRN Reason: Agitation Last Admin: 12/11/17 16:35 Dose: 25 mg Divalproex Sodium (Depakote Sprinkles) 125 mg PO BID [facility] Last Admin: 12/11/17 17:48 Dose: 125 mg Famotidine (Pepcid) 20 mg PO DAILY [facility] Last Admin: 12/11/17 09:45 Dose: 20 mg Glucagon (Glucagen Diagnostic Kit) 1 mg IM STAT PRN; Protocol PRN Reason: Hypoglycemia Protocol Insulin Aspart (Novolog) 0 unit SC [facility] PRN Reason: Protocol Last Admin: 12/11/17 17:48 Dose: 2 unit Insulin Glargine (Lantus) 15 unit SC [facility] Last Admin: 12/10/17 22:07 Dose: 15 unit Metoprolol Tartrate (Lopressor) 25 mg PO BID [facility] Last Admin: 12/11/17 17:48 Dose: 25 mg Mirtazapine (Remeron) 7.5 mg PO HS [facility] Last Admin: 12/10/17 22:07 Dose: 7.5 mg Risperidone (Risperdal Tab) 1 mg PO BID [facility] Last Admin: 12/11/17 17:48 Dose: 1 mg Sodium Bicarbonate (Sodium Bicarbonate Tab) 650 mg PO Q6 [facility] Last Admin: 12/11/17 17:48 Dose: 650 mg Sodium Polystyrene Sulfonate (Kayexalate Susp) 15 gm PO DAILY [facility] Last Admin: 12/11/17 09:45 Dose: 15 gm Tamsulosin HCl (Flomax) 0.4 mg PO DAILY [facility] Last Admin: 12/11/17 09:45 Dose: 0.4 mg - Labs Labs: 12/09/17 08:05 12/09/17 08:05 - Constitutional Appears: Well - Head Exam Head Exam: ATRAUMATIC, NORMAL INSPECTION, NORMOCEPHALIC - Eye Exam Eye Exam: EOMI, Normal appearance, PERRL Pupil Exam: NORMAL ACCOMODATION, PERRL - ENT Exam ENT Exam: Mucous Membranes Moist, Normal Exam - Neck Exam Neck Exam: Full ROM, Normal Inspection. absent: Lymphadenopathy - Respiratory Exam Respiratory Exam: Decreased Breath Sounds - Cardiovascular Exam Cardiovascular Exam: REGULAR RHYTHM, +S1, +S2 - GI/Abdominal Exam GI & Abdominal Exam: Soft, Diminished Bowel Sounds - Rectal Exam Rectal Exam: Deferred
[2017-12-11] MEDS: (Lantus) Insulin Glargine, Recombinant SC SCH (21:42)
[2017-12-12] MEDS: DiphenhydrAMINE 50 mg/ml Inj IVP PRN ×2 (00:34→16:44)
[2017-12-12] MEDS: (Novolog) Insulin Aspart, Recombinant 100 u/ml 10 ml vial SC SCH ×4 (07:24→21:15)
[2017-12-12 08:48] LABS: CALCIUM 9.2 mg/dl (8.6-10.4)
[2017-12-12] MEDS: Sod Polystyrene Sulf 15 gm/60 ml Susp PO SCH (09:39)
[2017-12-12] MEDS: Divalproex 125 mg Sprinkle Capsule PO SCH ×2 (09:39→17:43)
--- NOTE | 2017-12-12 14:46 | CP.PCM.PN ---
Subjective - Date & Time of Evaluation Date of Evaluation: 12/12/17 Time of Evaluation: 11:00 - Subjective Subjective: clinically same Objective - Vital Signs/Intake and Output Vital Signs (last 24 hours): Temp Pulse Resp BP Pulse Ox 98.1 F 84 20 115/75 94 L 12/12/17 00:00 12/12/17 00:00 12/12/17 00:00 12/12/17 09:39 12/12/17 00:00 Intake and Output: 12/12/17 12/12/17 06:59 18:59 Intake Total 400 800 Output Total 400 Balance 0 800 - Medications Medications: Current Medications Acetaminophen (Tylenol 325mg Tab) 650 mg PO Q6 PRN PRN Reason: Pain, Mild (1-3) Last Admin: 11/25/17 21:50 Dose: 650 mg Benztropine Mesylate (Cogentin) 0.5 mg PO BID [facility] Last Admin: 12/12/17 09:38 Dose: 0.5 mg Dextrose (Dextrose 50% Inj) 0 ml IV STAT PRN; Protocol PRN Reason: Hypoglycemia Protocol Last Admin: 12/06/17 06:53 Dose: 50 ml Dextrose (Glutose 15) 15 gm PO ONCE PRN; Protocol PRN Reason: Hypoglycemia Protocol Diphenhydramine HCl (Benadryl) 25 mg IVP Q8 PRN PRN Reason: Agitation Last Admin: 12/12/17 00:34 Dose: 25 mg Divalproex Sodium (Depakote Sprinkles) 125 mg PO BID [facility] Last Admin: 12/12/17 09:39 Dose: 125 mg Famotidine (Pepcid) 20 mg PO DAILY [facility] Last Admin: 12/12/17 09:38 Dose: 20 mg Glucagon (Glucagen Diagnostic Kit) 1 mg IM STAT PRN; Protocol PRN Reason: Hypoglycemia Protocol Insulin Aspart (Novolog) 0 unit SC [facility] PRN Reason: Protocol Last Admin: 12/12/17 12:58 Dose: 2 unit Insulin Glargine (Lantus) 15 unit SC HS [facility] Last Admin: 12/11/17 21:42 Dose: 15 unit Metoprolol Tartrate (Lopressor) 25 mg PO BID [facility] Last Admin: 12/12/17 09:39 Dose: 25 mg Mirtazapine (Remeron) 7.5 mg PO HS [facility] Last Admin: 12/11/17 21:42 Dose: 7.5 mg Risperidone (Risperdal Tab) 1 mg PO BID [facility] Last Admin: 12/12/17 09:39 Dose: 1 mg Sodium Bicarbonate (Sodium Bicarbonate Tab) 650 mg PO Q6 [facility] Last Admin: 12/12/17 13:00 Dose: 650 mg Sodium Polystyrene Sulfonate (Kayexalate Susp) 15 gm PO DAILY [facility] Last Admin: 12/12/17 09:39 Dose: 15 gm Tamsulosin HCl (Flomax) 0.4 mg PO DAILY [facility] Last Admin: 12/12/17 09:39 Dose: 0.4 mg - Labs Labs: 12/09/17 08:05 12/12/17 08:10 - Constitutional Appears: Well - Head Exam Head Exam: ATRAUMATIC, NORMAL INSPECTION, NORMOCEPHALIC - Eye Exam Eye Exam: EOMI, Normal appearance, PERRL Pupil Exam: NORMAL ACCOMODATION, PERRL - ENT Exam ENT Exam: Mucous Membranes Moist, Normal Exam - Neck Exam Neck Exam: Full ROM, Normal Inspection. absent: Lymphadenopathy - Respiratory Exam Respiratory Exam: Decreased Breath Sounds - Cardiovascular Exam Cardiovascular Exam: REGULAR RHYTHM, +S1, +S2 - GI/Abdominal Exam GI & Abdominal Exam: Soft, Diminished Bowel Sounds - Rectal Exam Rectal Exam: Deferred
[2017-12-12] MEDS: (Lantus) Insulin Glargine, Recombinant SC SCH (21:53)
[2017-12-13] MEDS: (Novolog) Insulin Aspart, Recombinant 100 u/ml 10 ml vial SC SCH ×4 (08:24→21:21)
[2017-12-13] MEDS: Sod Polystyrene Sulf 15 gm/60 ml Susp PO SCH (10:48)
[2017-12-13] MEDS: Divalproex 125 mg Sprinkle Capsule PO SCH ×2 (10:48→17:45)
[2017-12-13] MEDS: Sodium Chloride 0.45% 1,000 ML IV SCH ×2 (10:52→15:49)
--- NOTE | 2017-12-13 11:06 | CP.PCM.PN ---
Subjective - Date & Time of Evaluation Date of Evaluation: 12/13/17 Time of Evaluation: 11:04 - Subjective Subjective: Appears same CKD degree same lytes acceptable same confused mental status Objective - Vital Signs/Intake and Output Vital Signs (last 24 hours): Temp Pulse Resp BP Pulse Ox 97.5 F L 86 20 112/82 96 12/13/17 07:45 12/13/17 07:45 12/13/17 07:45 12/13/17 10:47 12/13/17 07:45 Intake and Output: 12/13/17 12/13/17 06:59 18:59 Intake Total 550 Output Total 1600 Balance -1050 - Medications Medications: Current Medications Acetaminophen (Tylenol 325mg Tab) 650 mg PO Q6 PRN PRN Reason: Pain, Mild (1-3) Last Admin: 11/25/17 21:50 Dose: 650 mg Benztropine Mesylate (Cogentin) 0.5 mg PO BID [facility] Last Admin: 12/13/17 10:48 Dose: 0.5 mg Dextrose (Dextrose 50% Inj) 0 ml IV STAT PRN; Protocol PRN Reason: Hypoglycemia Protocol Last Admin: 12/06/17 06:53 Dose: 50 ml Dextrose (Glutose 15) 15 gm PO ONCE PRN; Protocol PRN Reason: Hypoglycemia Protocol Diphenhydramine HCl (Benadryl) 25 mg IVP Q8 PRN PRN Reason: Agitation Last Admin: 12/12/17 16:44 Dose: 25 mg Divalproex Sodium (Depakote Sprinkles) 125 mg PO BID [facility] Last Admin: 12/13/17 10:48 Dose: 125 mg Famotidine (Pepcid) 20 mg PO DAILY [facility] Last Admin: 12/13/17 10:46 Dose: 20 mg Glucagon (Glucagen Diagnostic Kit) 1 mg IM STAT PRN; Protocol PRN Reason: Hypoglycemia Protocol Insulin Aspart (Novolog) 0 unit SC [facility] PRN Reason: Protocol Last Admin: 12/13/17 08:24 Dose: Not Given Insulin Glargine (Lantus) 15 unit SC HS [facility] Last Admin: 12/12/17 21:53 Dose: 15 unit Metoprolol Tartrate (Lopressor) 25 mg PO BID [facility] Last Admin: 12/13/17 10:47 Dose: 25 mg Mirtazapine (Remeron) 7.5 mg PO HS [facility] Last Admin: 12/12/17 21:53 Dose: 7.5 mg Risperidone (Risperdal Tab) 1 mg PO BID [facility] Last Admin: 12/13/17 10:48 Dose: 1 mg Sodium Bicarbonate (Sodium Bicarbonate Tab) 650 mg PO Q6 [facility] Last Admin: 12/13/17 06:33 Dose: Not Given Sodium Polystyrene Sulfonate (Kayexalate Susp) 15 gm PO DAILY [facility] Last Admin: 12/13/17 10:48 Dose: 15 gm Tamsulosin HCl (Flomax) 0.4 mg PO DAILY [facility] Last Admin: 12/13/17 10:47 Dose: 0.4 mg - Labs Labs: 12/09/17 08:05 12/12/17 08:10 - Constitutional Appears: No Acute Distress, Confused, Chronically Ill - Head Exam Head Exam: ATRAUMATIC, NORMAL INSPECTION - Eye Exam Eye Exam: EOMI, Normal appearance - Neck Exam Neck Exam: Tenderness. absent: Normal Inspection - Respiratory Exam Respiratory Exam: Clear to Ausculation Bilateral, NORMAL BREATHING PATTERN - Cardiovascular Exam Cardiovascular Exam: REGULAR RHYTHM, +S1 - GI/Abdominal Exam GI & Abdominal Exam: Soft. absent: Tenderness - Extremities Exam Extremities Exam: Normal Inspection. absent: Tenderness - Neurological Exam Neurological Exam: Altered, CN II-XII Intact - Skin Skin Exam: Dry, Warm Assessment and Plan (1) CKD (chronic kidney disease) stage 4, GFR 15-29 ml/min Status: Acute (2) JOY (acute kidney injury) Status: Acute (3) Dementia Status: Acute (4) Bilateral hydronephrosis Status: Acute - Assessment and Plan (Free Text) Plan: Same mild hydrattion due to excess ostomy losses same oral bicarb monitor; renal function periodically
--- NOTE | 2017-12-13 19:08 | CP.PCM.PN ---
Subjective - Date & Time of Evaluation Date of Evaluation: 12/13/17 Time of Evaluation: 09:20 - Subjective Subjective: clinically same Objective - Vital Signs/Intake and Output Vital Signs (last 24 hours): Temp Pulse Resp BP Pulse Ox 98.5 F 132 H 20 113/66 99 12/13/17 15:00 12/13/17 15:00 12/13/17 15:00 12/13/17 17:45 12/13/17 15:00 Intake and Output: 12/13/17 12/14/17 18:59 06:59 Intake Total 550 Output Total 500 Balance 50 - Medications Medications: Current Medications Acetaminophen (Tylenol 325mg Tab) 650 mg PO Q6 PRN PRN Reason: Pain, Mild (1-3) Last Admin: 11/25/17 21:50 Dose: 650 mg Benztropine Mesylate (Cogentin) 0.5 mg PO BID [facility] Last Admin: 12/13/17 17:45 Dose: 0.5 mg Dextrose (Dextrose 50% Inj) 0 ml IV STAT PRN; Protocol PRN Reason: Hypoglycemia Protocol Last Admin: 12/06/17 06:53 Dose: 50 ml Dextrose (Glutose 15) 15 gm PO ONCE PRN; Protocol PRN Reason: Hypoglycemia Protocol Diphenhydramine HCl (Benadryl) 25 mg IVP Q8 PRN PRN Reason: Agitation Last Admin: 12/12/17 16:44 Dose: 25 mg Divalproex Sodium (Depakote Sprinkles) 125 mg PO BID [facility] Last Admin: 12/13/17 17:45 Dose: 125 mg Famotidine (Pepcid) 20 mg PO DAILY [facility] Last Admin: 12/13/17 10:46 Dose: 20 mg Glucagon (Glucagen Diagnostic Kit) 1 mg IM STAT PRN; Protocol PRN Reason: Hypoglycemia Protocol Sodium Chloride (Sodium Chloride 0.45%) 1,000 mls @ 50 mls/hr IV .Q20H [facility] Last Admin: 12/13/17 15:49 Dose: 50 mls/hr Insulin Aspart (Novolog) 0 unit SC ACHS [facility] PRN Reason: Protocol Last Admin: 12/13/17 16:44 Dose: Not Given Insulin Glargine (Lantus) 15 unit SC HS [facility] Last Admin: 12/12/17 21:53 Dose: 15 unit Metoprolol Tartrate (Lopressor) 25 mg PO BID [facility] Last Admin: 12/13/17 17:45 Dose: 25 mg Mirtazapine (Remeron) 7.5 mg PO HS [facility] Last Admin: 12/12/17 21:53 Dose: 7.5 mg Risperidone (Risperdal Tab) 1 mg PO BID [facility] Last Admin: 12/13/17 17:54 Dose: 1 mg Sodium Bicarbonate (Sodium Bicarbonate Tab) 650 mg PO Q6 [facility] Last Admin: 12/13/17 17:45 Dose: 650 mg Sodium Polystyrene Sulfonate (Kayexalate Susp) 15 gm PO DAILY [facility] Last Admin: 12/13/17 10:48 Dose: 15 gm Tamsulosin HCl (Flomax) 0.4 mg PO DAILY [facility] Last Admin: 12/13/17 10:47 Dose: 0.4 mg - Labs Labs: 12/09/17 08:05 12/12/17 08:10 - Constitutional Appears: Well - Head Exam Head Exam: ATRAUMATIC, NORMAL INSPECTION, NORMOCEPHALIC - Eye Exam Eye Exam: EOMI, Normal appearance, PERRL Pupil Exam: NORMAL ACCOMODATION, PERRL - ENT Exam ENT Exam: Mucous Membranes Moist, Normal Exam - Neck Exam Neck Exam: Full ROM, Normal Inspection. absent: Lymphadenopathy - Respiratory Exam Respiratory Exam: Decreased Breath Sounds - Cardiovascular Exam Cardiovascular Exam: REGULAR RHYTHM, +S1, +S2 - GI/Abdominal Exam GI & Abdominal Exam: Soft, Diminished Bowel Sounds - Rectal Exam Rectal Exam: Deferred
[2017-12-13] MEDS: (Lantus) Insulin Glargine, Recombinant SC SCH (21:21)
[2017-12-14] MEDS: (Novolog) Insulin Aspart, Recombinant 100 u/ml 10 ml vial SC SCH ×4 (08:24→21:10)
[2017-12-14] MEDS: Sod Polystyrene Sulf 15 gm/60 ml Susp PO SCH (09:33)
[2017-12-14] MEDS: Divalproex 125 mg Sprinkle Capsule PO SCH ×2 (09:43→17:41)
--- NOTE | 2017-12-14 10:40 | CP.PCM.PN ---
Subjective - Date & Time of Evaluation Date of Evaluation: 12/14/17 Time of Evaluation: 10:39 - Subjective Subjective: seen and examined pt is confused no labs today on iv fluids Objective - Vital Signs/Intake and Output Vital Signs (last 24 hours): Temp Pulse Resp BP Pulse Ox 97.7 F 112 H 20 113/81 96 12/14/17 08:47 12/14/17 08:47 12/14/17 08:47 12/14/17 09:33 12/14/17 08:47 Intake and Output: 12/14/17 12/14/17 06:59 18:59 Intake Total 870 Output Total 200 Balance 670 - Medications Medications: Current Medications Acetaminophen (Tylenol 325mg Tab) 650 mg PO Q6 PRN PRN Reason: Pain, Mild (1-3) Last Admin: 11/25/17 21:50 Dose: 650 mg Benztropine Mesylate (Cogentin) 0.5 mg PO BID [facility] Last Admin: 12/14/17 09:33 Dose: 0.5 mg Dextrose (Dextrose 50% Inj) 0 ml IV STAT PRN; Protocol PRN Reason: Hypoglycemia Protocol Last Admin: 12/06/17 06:53 Dose: 50 ml Dextrose (Glutose 15) 15 gm PO ONCE PRN; Protocol PRN Reason: Hypoglycemia Protocol Diphenhydramine HCl (Benadryl) 25 mg IVP Q8 PRN PRN Reason: Agitation Last Admin: 12/12/17 16:44 Dose: 25 mg Divalproex Sodium (Depakote Sprinkles) 125 mg PO BID [facility] Last Admin: 12/14/17 09:43 Dose: 125 mg Famotidine (Pepcid) 20 mg PO DAILY [facility] Last Admin: 12/14/17 09:44 Dose: 20 mg Glucagon (Glucagen Diagnostic Kit) 1 mg IM STAT PRN; Protocol PRN Reason: Hypoglycemia Protocol Sodium Chloride (Sodium Chloride 0.45%) 1,000 mls @ 50 mls/hr IV .Q20H [facility] Last Admin: 12/13/17 15:49 Dose: 50 mls/hr Insulin Aspart (Novolog) 0 unit SC A[facility]S [facility] PRN Reason: Protocol Last Admin: 12/14/17 08:24 Dose: Not Given Insulin Glargine (Lantus) 15 unit SC HS [facility] Last Admin: 12/13/17 21:21 Dose: 15 unit Metoprolol Tartrate (Lopressor) 25 mg PO BID [facility] Last Admin: 12/14/17 09:33 Dose: 25 mg Mirtazapine (Remeron) 7.5 mg PO HS [facility] Last Admin: 12/13/17 21:21 Dose: 7.5 mg Risperidone (Risperdal Tab) 1 mg PO BID [facility] Last Admin: 12/14/17 09:33 Dose: 1 mg Sodium Bicarbonate (Sodium Bicarbonate Tab) 650 mg PO Q6 [facility] Last Admin: 12/14/17 05:52 Dose: 650 mg Tamsulosin HCl (Flomax) 0.4 mg PO DAILY [facility] Last Admin: 12/14/17 09:33 Dose: 0.4 mg - Labs Labs: 12/09/17 08:05 12/12/17 08:10 - Constitutional Appears: Non-toxic, No Acute Distress, Chronically Ill - Head Exam Head Exam: NORMAL INSPECTION, NORMOCEPHALIC - Eye Exam Eye Exam: Normal appearance, PERRL - ENT Exam ENT Exam: Mucous Membranes Moist, Normal Exam - Neck Exam Neck Exam: Normal Inspection - Respiratory Exam Respiratory Exam: Clear to Ausculation Bilateral, NORMAL BREATHING PATTERN - Cardiovascular Exam Cardiovascular Exam: REGULAR RHYTHM, RRR - GI/Abdominal Exam GI & Abdominal Exam: Soft, Normal Bowel Sounds - Extremities Exam Extremities Exam: Normal Inspection - Neurological Exam Neurological Exam: Altered, Awake. absent: Alert - Skin Skin Exam: Dry, Intact, Warm Assessment and Plan (1) Metabolic acidosis Status: Acute (2) Bilateral hydronephrosis Status: Acute (3) CKD (chronic kidney disease) stage 4, GFR 15-29 ml/min Status: Acute (4) Dementia Status: Acute (5) UTI (urinary tract infection) Status: Acute - Assessment and Plan (Free Text) Assessment: pending labs today dc kayexelate monitor daily chems on iv fluids
[2017-12-14 11:06] LABS: BASO # 0.1 K/uL (0.0-0.2); BASO % 1.4 % (0.0-2.0); EOS # 0.3 K/uL (0.0-0.7); EOS % 5.7 % (0.0-4.0); HEMOGLOBIN 9.3 g/dL (12.0-18.0); LYMPH # 1.1 K/uL (1.0-4.3); LYMPH % 22.1 % (20.0-40.0); MEAN CELL VOLUME 84.6 fL (80.0-94.0); MEAN CORPUSCULAR HEMOGLOBIN 28.1 pg (27.0-31.0); MEAN CORPUSCULAR HGB CONC 33.2 g/dL (33.0-37.0); MEAN PLATELET VOLUME 7.5 fL (7.2-11.7); MONO # 0.8 K/uL (0.0-0.8); MONO % 15.9 % (0.0-10.0); NEUT # 2.7 K/uL (1.8-7.0); NEUT % 54.9 % (50.0-75.0); NRBC % 0.1 % (0.0-2.0); RBC 3.31 Mil/uL (4.40-5.90); RED CELL DISTRIBUTION WIDTH 14.6 % (11.5-14.5); WHITE BLOOD COUNT 4.8 K/uL (4.8-10.8)
[2017-12-14 11:20] LABS: CALCIUM 8.8 mg/dl (8.6-10.4)
[2017-12-14] MEDS: Sodium Chloride 0.45% 1,000 ML IV SCH ×2 (13:17→17:40)
--- NOTE | 2017-12-14 17:37 | CP.PCM.PN ---
Subjective - Date & Time of Evaluation Date of Evaluation: 12/14/17 Time of Evaluation: 08:40 - Subjective Subjective: clinically same Objective - Vital Signs/Intake and Output Vital Signs (last 24 hours): Temp Pulse Resp BP Pulse Ox 97.5 F L 139 H 20 109/63 96 12/14/17 15:08 12/14/17 15:08 12/14/17 15:08 12/14/17 15:08 12/14/17 08:47 Intake and Output: 12/14/17 12/14/17 06:59 18:59 Intake Total 870 Output Total 200 Balance 670 - Medications Medications: Current Medications Acetaminophen (Tylenol 325mg Tab) 650 mg PO Q6 PRN PRN Reason: Pain, Mild (1-3) Last Admin: 11/25/17 21:50 Dose: 650 mg Benztropine Mesylate (Cogentin) 0.5 mg PO BID [facility] Last Admin: 12/14/17 09:33 Dose: 0.5 mg Dextrose (Dextrose 50% Inj) 0 ml IV STAT PRN; Protocol PRN Reason: Hypoglycemia Protocol Last Admin: 12/06/17 06:53 Dose: 50 ml Dextrose (Glutose 15) 15 gm PO ONCE PRN; Protocol PRN Reason: Hypoglycemia Protocol Diphenhydramine HCl (Benadryl) 25 mg IVP Q8 PRN PRN Reason: Agitation Last Admin: 12/12/17 16:44 Dose: 25 mg Divalproex Sodium (Depakote Sprinkles) 250 mg PO BID [facility] Famotidine (Pepcid) 20 mg PO DAILY [facility] Last Admin: 12/14/17 09:44 Dose: 20 mg Glucagon (Glucagen Diagnostic Kit) 1 mg IM STAT PRN; Protocol PRN Reason: Hypoglycemia Protocol Sodium Chloride (Sodium Chloride 0.45%) 1,000 mls @ 50 mls/hr IV .Q20H [facility] Last Admin: 12/14/17 13:17 Dose: Not Given Insulin Aspart (Novolog) 0 unit SC ACHS [facility] PRN Reason: Protocol Last Admin: 12/14/17 12:33 Dose: 2 unit Insulin Glargine (Lantus) 15 unit SC HS [facility] Last Admin: 12/13/17 21:21 Dose: 15 unit Metoprolol Tartrate (Lopressor) 25 mg PO BID [facility] Last Admin: 12/14/17 09:33 Dose: 25 mg Risperidone (Risperdal Tab) 1 mg PO BID [facility] Last Admin: 12/14/17 09:33 Dose: 1 mg Sodium Bicarbonate (Sodium Bicarbonate Tab) 650 mg PO Q6 [facility] Last Admin: 12/14/17 12:34 Dose: 650 mg Tamsulosin HCl (Flomax) 0.4 mg PO DAILY [facility] Last Admin: 12/14/17 09:33 Dose: 0.4 mg - Labs Labs: 12/14/17 11:00 12/14/17 11:00 - Constitutional Appears: Well - Head Exam Head Exam: ATRAUMATIC, NORMAL INSPECTION, NORMOCEPHALIC - Eye Exam Eye Exam: EOMI, Normal appearance, PERRL Pupil Exam: NORMAL ACCOMODATION, PERRL - ENT Exam ENT Exam: Mucous Membranes Moist, Normal Exam - Neck Exam Neck Exam: Full ROM, Normal Inspection. absent: Lymphadenopathy - Respiratory Exam Respiratory Exam: Decreased Breath Sounds - Cardiovascular Exam Cardiovascular Exam: REGULAR RHYTHM, +S1, +S2 - GI/Abdominal Exam GI & Abdominal Exam: Soft, Diminished Bowel Sounds - Rectal Exam Rectal Exam: Deferred
[2017-12-14] MEDS: DiphenhydrAMINE 50 mg/ml Inj IVP PRN (17:41)
[2017-12-14] MEDS: (Lantus) Insulin Glargine, Recombinant SC SCH (21:58)
[2017-12-15] MEDS: (Novolog) Insulin Aspart, Recombinant 100 u/ml 10 ml vial SC SCH ×3 (08:06→17:39)
[2017-12-15] MEDS: Sodium Chloride 0.45% 1,000 ML IV SCH ×2 (08:07→18:00)
[2017-12-15 08:25] LABS: CALCIUM 8.8 mg/dl (8.6-10.4)
[2017-12-15] MEDS: Divalproex 125 mg Sprinkle Capsule PO SCH ×2 (09:57→18:28)
--- NOTE | 2017-12-15 10:32 | CP.PCM.PN ---
Subjective - Date & Time of Evaluation Date of Evaluation: 12/15/17 Time of Evaluation: 07:00 - Subjective Subjective: PGY2 Progress note for Dr. Hernandes Patient seen and examined at bedside and in no acute distress. Patient responds " I don't know" when asked where he is or his name. Patient is smiling, but looking into hallway and will not maintain eye contact. ROS unobtainable due to patient's current status. Objective - Vital Signs/Intake and Output Vital Signs (last 24 hours): Temp Pulse Resp BP Pulse Ox 97.4 F L 70 20 109/78 94 L 12/15/17 08:28 12/15/17 08:28 12/15/17 08:28 12/15/17 09:58 12/15/17 08:28 Intake and Output: 12/15/17 12/15/17 06:59 18:59 Intake Total 2100 Output Total 600 Balance 1500 - Medications Medications: Current Medications Acetaminophen (Tylenol 325mg Tab) 650 mg PO Q6 PRN PRN Reason: Pain, Mild (1-3) Last Admin: 11/25/17 21:50 Dose: 650 mg Benztropine Mesylate (Cogentin) 0.5 mg PO BID [facility] Last Admin: 12/15/17 09:57 Dose: 0.5 mg Dextrose (Dextrose 50% Inj) 0 ml IV STAT PRN; Protocol PRN Reason: Hypoglycemia Protocol Last Admin: 12/06/17 06:53 Dose: 50 ml Dextrose (Glutose 15) 15 gm PO ONCE PRN; Protocol PRN Reason: Hypoglycemia Protocol Diphenhydramine HCl (Benadryl) 25 mg IVP Q8 PRN PRN Reason: Agitation Last Admin: 12/14/17 17:41 Dose: 25 mg Divalproex Sodium (Depakote Sprinkles) 250 mg PO BID [facility] Last Admin: 12/15/17 09:57 Dose: 250 mg Famotidine (Pepcid) 20 mg PO DAILY [facility] Last Admin: 12/15/17 09:58 Dose: 20 mg Glucagon (Glucagen Diagnostic Kit) 1 mg IM STAT PRN; Protocol PRN Reason: Hypoglycemia Protocol Sodium Chloride (Sodium Chloride 0.45%) 1,000 mls @ 50 mls/hr IV .Q20H [facility] Last Admin: 12/15/17 08:07 Dose: Not Given Insulin Aspart (Novolog) [address] [facility] PRN Reason: Protocol Last Admin: 12/15/17 08:06 Dose: Not Given Insulin Glargine (Lantus) 15 unit SC [facility] Last Admin: 12/14/17 21:58 Dose: 15 unit Metoprolol Tartrate (Lopressor) 25 mg PO BID [facility] Last Admin: 12/15/17 09:58 Dose: 25 mg Risperidone (Risperdal Tab) 1 mg PO BID [facility] Last Admin: 12/15/17 09:58 Dose: 1 mg Sodium Bicarbonate (Sodium Bicarbonate Tab) 650 mg PO Q6 [facility] Last Admin: 12/15/17 06:07 Dose: 650 mg Tamsulosin HCl (Flomax) 0.4 mg PO DAILY [facility] Last Admin: 12/15/17 09:58 Dose: 0.4 mg - Labs Labs: 12/14/17 11:00 12/15/17 07:56 - Constitutional Appears: Non-toxic, No Acute Distress - Head Exam Head Exam: ATRAUMATIC, NORMAL INSPECTION, NORMOCEPHALIC - Eye Exam Eye Exam: EOMI, Normal appearance - ENT Exam ENT Exam: Mucous Membranes Moist - Respiratory Exam Respiratory Exam: Clear to Ausculation Bilateral, NORMAL BREATHING PATTERN - Cardiovascular Exam Cardiovascular Exam: REGULAR RHYTHM, RRR, +S1, +S2 - GI/Abdominal Exam GI & Abdominal Exam: Soft, Normal Bowel Sounds. absent: Tenderness Additional comments: ostomy - Extremities Exam Extremities Exam: Normal Inspection - Neurological Exam Neurological Exam: Alert, Awake. absent: Oriented x3 - Psychiatric Exam Psychiatric exam: Normal Affect, Normal Mood Assessment and Plan - Assessment and Plan (Free Text) Assessment: CKD, stage 4 1/2 NS at 50 cc/ hr Sodium Bicarb 650mg po q6h monitor electrolytes UTI, resolved urine cultures on 12/01: negative blood cultures 11/25: negative HTN Lopressor 25mg po BID Dementia Depakote 250mg po BID Cogentin .5mg po BID Risperidone 1mg po BID DMII Accuchecks ISS Lantus 15 u sc hypoglycemia protocol BPH Flomax .4mg po daily Prophylaxis Pepcid 20mg po daily 1/2 NS at 50 cc/ hr
--- NOTE | 2017-12-15 14:24 | CP.PCM.PN ---
Subjective - Date & Time of Evaluation Date of Evaluation: 12/15/17 Time of Evaluation: 14:22 - Subjective Subjective: Same confusional state remains on fluids Azotemia about same HTN controlled Objective - Vital Signs/Intake and Output Vital Signs (last 24 hours): Temp Pulse Resp BP Pulse Ox 97.4 F L 70 20 109/78 94 L 12/15/17 08:28 12/15/17 08:28 12/15/17 08:28 12/15/17 09:58 12/15/17 08:28 Intake and Output: 12/15/17 12/15/17 06:59 18:59 Intake Total 2100 Output Total 600 Balance 1500 - Medications Medications: Current Medications Acetaminophen (Tylenol 325mg Tab) 650 mg PO Q6 PRN PRN Reason: Pain, Mild (1-3) Last Admin: 11/25/17 21:50 Dose: 650 mg Benztropine Mesylate (Cogentin) 0.5 mg PO BID [facility] Last Admin: 12/15/17 09:57 Dose: 0.5 mg Dextrose (Dextrose 50% Inj) 0 ml IV STAT PRN; Protocol PRN Reason: Hypoglycemia Protocol Last Admin: 12/06/17 06:53 Dose: 50 ml Dextrose (Glutose 15) 15 gm PO ONCE PRN; Protocol PRN Reason: Hypoglycemia Protocol Diphenhydramine HCl (Benadryl) 25 mg IVP Q8 PRN PRN Reason: Agitation Last Admin: 12/14/17 17:41 Dose: 25 mg Divalproex Sodium (Depakote Sprinkles) 250 mg PO BID [facility] Last Admin: 12/15/17 09:57 Dose: 250 mg Famotidine (Pepcid) 20 mg PO DAILY [facility] Last Admin: 12/15/17 09:58 Dose: 20 mg Glucagon (Glucagen Diagnostic Kit) 1 mg IM STAT PRN; Protocol PRN Reason: Hypoglycemia Protocol Sodium Chloride (Sodium Chloride 0.45%) 1,000 mls @ 50 mls/hr IV .Q20H [facility] Last Admin: 12/15/17 08:07 Dose: Not Given Insulin Aspart (Novolog) 0 unit SC ACHS [facility] PRN Reason: Protocol Last Admin: 12/15/17 12:20 Dose: 2 unit Insulin Glargine (Lantus) 15 unit SC HS [facility] Last Admin: 07/31/18 21:58 Dose: 15 unit Metoprolol Tartrate (Lopressor) 25 mg PO BID [facility] Last Admin: 12/15/17 09:58 Dose: 25 mg Risperidone (Risperdal Tab) 1 mg PO BID [facility] Last Admin: 12/15/17 09:58 Dose: 1 mg Sodium Bicarbonate (Sodium Bicarbonate Tab) 650 mg PO Q6 [facility] Last Admin: 12/15/17 12:20 Dose: 650 mg Tamsulosin HCl (Flomax) 0.4 mg PO DAILY [facility] Last Admin: 12/15/17 09:58 Dose: 0.4 mg - Labs Labs: 12/14/17 11:00 12/15/17 07:56 - Constitutional Appears: No Acute Distress, Chronically Ill - Head Exam Head Exam: ATRAUMATIC, NORMAL INSPECTION - Eye Exam Eye Exam: EOMI, Normal appearance - Neck Exam Neck Exam: Normal Inspection. absent: Tenderness - Respiratory Exam Respiratory Exam: Clear to Ausculation Bilateral, NORMAL BREATHING PATTERN - Cardiovascular Exam Cardiovascular Exam: REGULAR RHYTHM, +S1 - GI/Abdominal Exam GI & Abdominal Exam: Soft. absent: Tenderness - Extremities Exam Extremities Exam: Normal Inspection. absent: Tenderness - Neurological Exam Neurological Exam: Altered, CN II-XII Intact - Skin Skin Exam: Dry, Warm Assessment and Plan (1) CKD (chronic kidney disease) stage 4, GFR 15-29 ml/min Status: Acute (2) JOY (acute kidney injury) Status: Acute (3) Dementia Status: Acute (4) Bilateral hydronephrosis Status: Acute - Assessment and Plan (Free Text) Plan: Mild IV hydration periodically follow labs
[2017-12-15] MEDS: DiphenhydrAMINE 50 mg/ml Inj IVP PRN (18:28)
--- NOTE | 2017-12-15 19:25 | CP.PCM.PN ---
Subjective - Date & Time of Evaluation Date of Evaluation: 12/15/17 Time of Evaluation: 08:40 - Subjective Subjective: clinically same Objective - Vital Signs/Intake and Output Vital Signs (last 24 hours): Temp Pulse Resp BP Pulse Ox 97.9 F 125 H 20 121/74 96 12/15/17 15:10 12/15/17 15:10 12/15/17 15:10 12/15/17 18:28 12/15/17 15:10 - Medications Medications: Current Medications Acetaminophen (Tylenol 325mg Tab) 650 mg PO Q6 PRN PRN Reason: Pain, Mild (1-3) Last Admin: 11/25/17 21:50 Dose: 650 mg Benztropine Mesylate (Cogentin) 0.5 mg PO BID [facility] Last Admin: 12/15/17 18:28 Dose: 0.5 mg Dextrose (Dextrose 50% Inj) 0 ml IV STAT PRN; Protocol PRN Reason: Hypoglycemia Protocol Last Admin: 12/06/17 06:53 Dose: 50 ml Dextrose (Glutose 15) 15 gm PO ONCE PRN; Protocol PRN Reason: Hypoglycemia Protocol Diphenhydramine HCl (Benadryl) 25 mg IVP Q8 PRN PRN Reason: Agitation Last Admin: 12/15/17 18:28 Dose: 25 mg Divalproex Sodium (Depakote Sprinkles) 250 mg PO BID [facility] Last Admin: 12/15/17 18:28 Dose: 250 mg Famotidine (Pepcid) 20 mg PO DAILY [facility] Last Admin: 12/15/17 09:58 Dose: 20 mg Glucagon (Glucagen Diagnostic Kit) 1 mg IM STAT PRN; Protocol PRN Reason: Hypoglycemia Protocol Sodium Chloride (Sodium Chloride 0.45%) 1,000 mls @ 50 mls/hr IV .Q20H [facility] Last Admin: 12/15/17 08:07 Dose: Not Given Insulin Aspart (Novolog) 0 unit SC ACHS [facility] PRN Reason: Protocol Last Admin: 12/15/17 17:39 Dose: Not Given Insulin Glargine (Lantus) 15 unit SC HS [facility] Last Admin: 12/14/17 21:58 Dose: 15 unit Metoprolol Tartrate (Lopressor) 25 mg PO BID [facility] Last Admin: 12/15/17 18:28 Dose: 25 mg Risperidone (Risperdal Tab) 1 mg PO BID [facility] Last Admin: 12/15/17 18:28 Dose: 1 mg Sodium Bicarbonate (Sodium Bicarbonate Tab) 650 mg PO Q6 [facility] Last Admin: 12/15/17 18:28 Dose: 650 mg Tamsulosin HCl (Flomax) 0.4 mg PO DAILY [facility] Last Admin: 12/15/17 09:58 Dose: 0.4 mg - Labs Labs: 12/14/17 11:00 12/15/17 07:56 - Constitutional Appears: Non-toxic - Head Exam Head Exam: NORMAL INSPECTION - Eye Exam Eye Exam: Normal appearance - ENT Exam ENT Exam: Mucous Membranes Moist - Neck Exam Neck Exam: Normal Inspection - Respiratory Exam Respiratory Exam: Decreased Breath Sounds - Cardiovascular Exam Cardiovascular Exam: REGULAR RHYTHM - GI/Abdominal Exam GI & Abdominal Exam: Diminished Bowel Sounds - Rectal Exam Rectal Exam: Deferred
[2017-12-15] MEDS: (Lantus) Insulin Glargine, Recombinant SC SCH (23:02)
[2017-12-16] MEDS: DiphenhydrAMINE 50 mg/ml Inj IVP PRN ×2 (02:30→11:08)
[2017-12-16] MEDS: Sodium Chloride 0.45% 1,000 ML IV SCH ×2 (05:15→10:05)
[2017-12-16 06:19] LABS: BASO # 0.1 K/uL (0.0-0.2); BASO % 1.7 % (0.0-2.0); EOS # 0.3 K/uL (0.0-0.7); EOS % 5.5 % (0.0-4.0); HEMOGLOBIN 8.9 g/dL (12.0-18.0); LYMPH # 1.2 K/uL (1.0-4.3); LYMPH % 23.6 % (20.0-40.0); MEAN CELL VOLUME 84.3 fL (80.0-94.0); MEAN CORPUSCULAR HEMOGLOBIN 28.2 pg (27.0-31.0); MEAN CORPUSCULAR HGB CONC 33.4 g/dL (33.0-37.0); MEAN PLATELET VOLUME 6.9 fL (7.2-11.7); MONO # 0.7 K/uL (0.0-0.8); MONO % 13.5 % (0.0-10.0); NEUT # 2.8 K/uL (1.8-7.0); NEUT % 55.7 % (50.0-75.0); NRBC % 0.1 % (0.0-2.0); RBC 3.16 Mil/uL (4.40-5.90); RED CELL DISTRIBUTION WIDTH 14.5 % (11.5-14.5); WHITE BLOOD COUNT 5.1 K/uL (4.8-10.8)
[2017-12-16 06:39] LABS: ALB/GLOB RATIO 1.1 (1.0-2.1); ALBUMIN 3.7 g/dL (3.5-5.0); CALCIUM 9.1 mg/dl (8.6-10.4)
--- NOTE | 2017-12-16 07:22 | CP.PCM.PN ---
Subjective - Date & Time of Evaluation Date of Evaluation: 12/16/17 Time of Evaluation: 07:22 - Subjective Subjective: PGY2- Progress note for Dr. Wade Hernandes Patient was seen and examined at bedside in no acute distress. Patient is awake , but disoriented and does not follow commands. Review of systems is limited due to patient's mental status. Objective - Vital Signs/Intake and Output Vital Signs (last 24 hours): Temp Pulse Resp BP Pulse Ox 98.6 F 112 H 20 107/71 97 12/15/17 23:10 12/15/17 23:10 12/15/17 23:10 12/15/17 23:10 12/15/17 23:10 Intake and Output: 12/16/17 12/16/17 06:59 18:59 Intake Total 1200 Output Total 550 Balance 650 - Medications Medications: Current Medications Acetaminophen (Tylenol 325mg Tab) 650 mg PO Q6 PRN PRN Reason: Pain, Mild (1-3) Last Admin: 11/25/17 21:50 Dose: 650 mg Benztropine Mesylate (Cogentin) 0.5 mg PO BID [facility] Last Admin: 12/15/17 18:28 Dose: 0.5 mg Dextrose (Dextrose 50% Inj) 0 ml IV STAT PRN; Protocol PRN Reason: Hypoglycemia Protocol Last Admin: 12/06/17 06:53 Dose: 50 ml Dextrose (Glutose 15) 15 gm PO ONCE PRN; Protocol PRN Reason: Hypoglycemia Protocol Diphenhydramine HCl (Benadryl) 25 mg IVP Q8 PRN PRN Reason: Agitation Last Admin: 12/16/17 02:30 Dose: 25 mg Divalproex Sodium (Depakote Sprinkles) 250 mg PO BID [facility] Last Admin: 12/15/17 18:28 Dose: 250 mg Famotidine (Pepcid) 20 mg PO DAILY [facility] Last Admin: 12/15/17 09:58 Dose: 20 mg Glucagon (Glucagen Diagnostic Kit) 1 mg IM STAT PRN; Protocol PRN Reason: Hypoglycemia Protocol Sodium Chloride (Sodium Chloride 0.45%) 1,000 mls @ 50 mls/hr IV .Q20H [facility] Last Admin: 12/16/17 05:15 Dose: Not Given Insulin Aspart (Novolog) 0 unit SC ACHS [facility] PRN Reason: Protocol Last Admin: 12/15/17 17:39 Dose: Not Given Insulin Glargine (Lantus) 15 unit SC HS [facility] Last Admin: 12/15/17 23:02 Dose: 15 unit Metoprolol Tartrate (Lopressor) 25 mg PO BID [facility] Last Admin: 12/15/17 18:28 Dose: 25 mg Risperidone (Risperdal Tab) 1 mg PO BID [facility] Last Admin: 12/15/17 18:28 Dose: 1 mg Sodium Bicarbonate (Sodium Bicarbonate Tab) 650 mg PO Q6 [facility] Last Admin: 12/16/17 05:09 Dose: 650 mg Tamsulosin HCl (Flomax) 0.4 mg PO DAILY [facility] Last Admin: 12/15/17 09:58 Dose: 0.4 mg - Labs Labs: 12/16/17 06:11 12/16/17 06:11 - Constitutional Appears: No Acute Distress - Head Exam Head Exam: ATRAUMATIC, NORMAL INSPECTION - Eye Exam Eye Exam: EOMI, Normal appearance - ENT Exam ENT Exam: Mucous Membranes Moist - Respiratory Exam Respiratory Exam: Clear to Ausculation Bilateral, NORMAL BREATHING PATTERN. absent: Rales, Rhonchi, Wheezes, Respiratory Distress - Cardiovascular Exam Cardiovascular Exam: REGULAR RHYTHM, +S1, +S2 - GI/Abdominal Exam GI & Abdominal Exam: Soft, Normal Bowel Sounds. absent: Distended, Firm, Tenderness Additional comments: Colostomy bag in place; stool noted. - Extremities Exam Extremities Exam: Normal Inspection. absent: Pedal Edema, Tenderness - Neurological Exam Neurological Exam: Awake. absent: Oriented x3 - Psychiatric Exam Psychiatric exam: Normal Affect - Skin Skin Exam: Dry, Intact, Normal Color, Warm Additional comments: no sacral wounds noted Assessment and Plan - Assessment and Plan (Free Text) Plan: CKD, stage 4 1/2 NS at 50 cc/ hr Sodium Bicarb 650mg PO q6h Monitor electrolytes HTN Well controlled Lopressor 25mg po BID Dementia Depakote 250mg po BID Cogentin .5mg po BID Risperidone 1mg po BID DMII Accuchecks ISS Lantus 15 u sc HS Hypoglycemia protocol UTI, resolved Urine cultures on 12/01: negative Blood cultures 11/25: negative BPH Flomax .4mg po daily Prophylaxis Pepcid 20mg po daily 1/2 NS at 50 cc/ hr Case discussed with Dr. Wade Hernandes. Management per Dr. Wade Hernandes.
[2017-12-16] MEDS: (Novolog) Insulin Aspart, Recombinant 100 u/ml 10 ml vial SC SCH ×4 (07:49→22:01)
--- NOTE | 2017-12-16 09:49 | CP.PCM.PN ---
Subjective - Date & Time of Evaluation Date of Evaluation: 12/16/17 Time of Evaluation: 09:46 - Subjective Subjective: appears same reviewed labs- chemistries same no new changes HTN controlled Objective - Vital Signs/Intake and Output Vital Signs (last 24 hours): Temp Pulse Resp BP Pulse Ox 98 F 87 20 122/80 97 12/16/17 08:12 12/16/17 08:12 12/16/17 08:12 12/16/17 08:12 12/16/17 08:12 Intake and Output: 12/16/17 12/16/17 06:59 18:59 Intake Total 1200 Output Total 550 Balance 650 - Medications Medications: Current Medications Acetaminophen (Tylenol 325mg Tab) 650 mg PO Q6 PRN PRN Reason: Pain, Mild (1-3) Last Admin: 11/25/17 21:50 Dose: 650 mg Benztropine Mesylate (Cogentin) 0.5 mg PO BID [facility] Last Admin: 12/15/17 18:28 Dose: 0.5 mg Dextrose (Dextrose 50% Inj) 0 ml IV STAT PRN; Protocol PRN Reason: Hypoglycemia Protocol Last Admin: 12/06/17 06:53 Dose: 50 ml Dextrose (Glutose 15) 15 gm PO ONCE PRN; Protocol PRN Reason: Hypoglycemia Protocol Diphenhydramine HCl (Benadryl) 25 mg IVP Q8 PRN PRN Reason: Agitation Last Admin: 12/16/17 02:30 Dose: 25 mg Divalproex Sodium (Depakote Sprinkles) 250 mg PO BID [facility] Last Admin: 12/15/17 18:28 Dose: 250 mg Famotidine (Pepcid) 20 mg PO DAILY [facility] Last Admin: 12/15/17 09:58 Dose: 20 mg Glucagon (Glucagen Diagnostic Kit) 1 mg IM STAT PRN; Protocol PRN Reason: Hypoglycemia Protocol Sodium Chloride (Sodium Chloride 0.45%) 1,000 mls @ 50 mls/hr IV .Q20H [facility] Last Admin: 12/16/17 05:15 Dose: Not Given Insulin Aspart (Novolog) 0 unit SC ACHS [facility] PRN Reason: Protocol Last Admin: 12/16/17 07:49 Dose: Not Given Insulin Glargine (Lantus) 15 unit SC HS [facility] Last Admin: 12/15/17 23:02 Dose: 15 unit Metoprolol Tartrate (Lopressor) 25 mg PO BID [facility] Last Admin: 12/15/17 18:28 Dose: 25 mg Risperidone (Risperdal Tab) 1 mg PO BID [facility] Last Admin: 12/15/17 18:28 Dose: 1 mg Sodium Bicarbonate (Sodium Bicarbonate Tab) 650 mg PO Q6 [facility] Last Admin: 12/16/17 05:09 Dose: 650 mg Tamsulosin HCl (Flomax) 0.4 mg PO DAILY [facility] Last Admin: 12/15/17 09:58 Dose: 0.4 mg - Labs Labs: 12/16/17 06:11 12/16/17 06:11 - Constitutional Appears: No Acute Distress, Confused, Chronically Ill - Head Exam Head Exam: ATRAUMATIC, NORMAL INSPECTION - Eye Exam Eye Exam: EOMI, Normal appearance - Neck Exam Neck Exam: Normal Inspection. absent: Tenderness - Respiratory Exam Respiratory Exam: Clear to Ausculation Bilateral, NORMAL BREATHING PATTERN - Cardiovascular Exam Cardiovascular Exam: REGULAR RHYTHM, +S1 - GI/Abdominal Exam GI & Abdominal Exam: Soft. absent: Tenderness - Extremities Exam Extremities Exam: Normal Inspection. absent: Tenderness - Neurological Exam Neurological Exam: Awake, CN II-XII Intact - Skin Skin Exam: Dry, Warm Assessment and Plan (1) CKD (chronic kidney disease) stage 4, GFR 15-29 ml/min Status: Acute (2) JOY (acute kidney injury) Status: Acute (3) Dementia Status: Acute (4) Bilateral hydronephrosis Status: Acute - Assessment and Plan (Free Text) Plan: same mild hydration, same oral bicarb periodically follow lytes
[2017-12-16] MEDS: Divalproex 125 mg Sprinkle Capsule PO SCH ×2 (09:57→18:27)
--- NOTE | 2017-12-16 20:15 | CP.PCM.PN ---
Subjective - Date & Time of Evaluation Date of Evaluation: 12/16/17 Time of Evaluation: 09:00 - Subjective Subjective: clinically same Objective - Vital Signs/Intake and Output Vital Signs (last 24 hours): Temp Pulse Resp BP Pulse Ox 97.9 F 110 H 20 125/74 95 12/16/17 15:27 12/16/17 15:27 12/16/17 15:27 12/16/17 18:27 12/16/17 15:27 Intake and Output: 12/16/17 12/17/17 18:59 06:59 Intake Total 224 Balance 224 - Medications Medications: Current Medications Acetaminophen (Tylenol 325mg Tab) 650 mg PO Q6 PRN PRN Reason: Pain, Mild (1-3) Last Admin: 11/25/17 21:50 Dose: 650 mg Benztropine Mesylate (Cogentin) 0.5 mg PO BID [facility] Last Admin: 12/16/17 18:27 Dose: 0.5 mg Dextrose (Dextrose 50% Inj) 0 ml IV STAT PRN; Protocol PRN Reason: Hypoglycemia Protocol Last Admin: 12/06/17 06:53 Dose: 50 ml Dextrose (Glutose 15) 15 gm PO ONCE PRN; Protocol PRN Reason: Hypoglycemia Protocol Diphenhydramine HCl (Benadryl) 25 mg IVP Q8 PRN PRN Reason: Agitation Last Admin: 12/16/17 11:08 Dose: 25 mg Divalproex Sodium (Depakote Sprinkles) 250 mg PO BID [facility] Last Admin: 12/16/17 18:27 Dose: 250 mg Famotidine (Pepcid) 20 mg PO DAILY [facility] Last Admin: 12/16/17 09:57 Dose: 20 mg Glucagon (Glucagen Diagnostic Kit) 1 mg IM STAT PRN; Protocol PRN Reason: Hypoglycemia Protocol Sodium Chloride (Sodium Chloride 0.45%) 1,000 mls @ 50 mls/hr IV .Q20H [facility] Last Admin: 12/16/17 10:05 Dose: 50 mls/hr Insulin Aspart (Novolog) 0 unit SC ACHS [facility] PRN Reason: Protocol Last Admin: 12/16/17 16:50 Dose: Not Given Insulin Glargine (Lantus) 15 unit SC HS [facility] Last Admin: 12/15/17 23:02 Dose: 15 unit Metoprolol Tartrate (Lopressor) 25 mg PO BID [facility] Last Admin: 12/16/17 18:27 Dose: 25 mg Risperidone (Risperdal Tab) 1 mg PO BID [facility] Last Admin: 12/16/17 18:27 Dose: 1 mg Sodium Bicarbonate (Sodium Bicarbonate Tab) 650 mg PO Q6 [facility] Last Admin: 12/16/17 18:27 Dose: 650 mg Tamsulosin HCl (Flomax) 0.4 mg PO DAILY [facility] Last Admin: 12/16/17 09:57 Dose: 0.4 mg - Labs Labs: 12/16/17 06:11 12/16/17 06:11 - Constitutional Appears: Well - Head Exam Head Exam: ATRAUMATIC, NORMAL INSPECTION, NORMOCEPHALIC - Eye Exam Eye Exam: EOMI, Normal appearance, PERRL Pupil Exam: NORMAL ACCOMODATION, PERRL - ENT Exam ENT Exam: Mucous Membranes Moist, Normal Exam - Neck Exam Neck Exam: Full ROM, Normal Inspection. absent: Lymphadenopathy - Respiratory Exam Respiratory Exam: Decreased Breath Sounds - Cardiovascular Exam Cardiovascular Exam: REGULAR RHYTHM, +S1, +S2 - GI/Abdominal Exam GI & Abdominal Exam: Soft, Diminished Bowel Sounds - Rectal Exam Rectal Exam: Deferred
[2017-12-16] MEDS: (Lantus) Insulin Glargine, Recombinant SC SCH (22:00)
[2017-12-17] MEDS: Sodium Chloride 0.45% 1,000 ML IV SCH ×2 (05:29→13:05)
[2017-12-17 06:49] LABS: BASO # 0.1 K/uL (0.0-0.2); BASO % 0.8 % (0.0-2.0); EOS # 0.1 K/uL (0.0-0.7); EOS % 1.4 % (0.0-4.0); HEMOGLOBIN 9.2 g/dL (12.0-18.0); LYMPH # 0.6 K/uL (1.0-4.3); LYMPH % 6.2 % (20.0-40.0); MEAN CELL VOLUME 84.1 fL (80.0-94.0); MEAN CORPUSCULAR HGB CONC 33.2 g/dL (33.0-37.0); MEAN PLATELET VOLUME 7.2 fL (7.2-11.7); MONO # 0.8 K/uL (0.0-0.8); MONO % 7.7 % (0.0-10.0); NEUT # 8.6 K/uL (1.8-7.0); NEUT % 83.9 % (50.0-75.0); PLATELET COUNT 316 K/uL (130-400); RBC 3.28 Mil/uL (4.40-5.90); RED CELL DISTRIBUTION WIDTH 14.6 % (11.5-14.5); WHITE BLOOD COUNT 10.2 K/uL (4.8-10.8)
[2017-12-17 07:03] LABS: ALBUMIN 3.7 g/dL (3.5-5.0); CALCIUM 8.9 mg/dl (8.6-10.4)
[2017-12-17] MEDS: (Novolog) Insulin Aspart, Recombinant 100 u/ml 10 ml vial SC SCH ×4 (08:30→22:13)
[2017-12-17 09:46] LABS: BANDS 12 % (0-2); BASOPHIL 1 % (0-2); LYMPHOCYTE 7 % (20-40); MONOCYTE 7 % (0-10); NEUTROPHIL 73 % (50-75); TOTAL CELLS COUNTED 100
[2017-12-17 09:50] LABS: PLATELET ESTIMATE NORMAL (NORMAL)
[2017-12-17 09:51] LABS: POIKILOCYTOSIS SLIGHT; TOXIC GRANULATION PRESENT
[2017-12-17] MEDS: Divalproex 125 mg Sprinkle Capsule PO SCH ×2 (10:14→18:29)
--- NOTE | 2017-12-17 12:59 | CP.PCM.PN ---
Subjective - Date & Time of Evaluation Date of Evaluation: 12/17/17 Time of Evaluation: 12:56 - Subjective Subjective: Not eating well today and lethargic Not verbalizing HTN stable Azotemia stable- has improved with hydration Objective - Vital Signs/Intake and Output Vital Signs (last 24 hours): Temp Pulse Resp BP Pulse Ox 99.2 F 133 H 18 110/74 97 12/17/17 08:40 12/17/17 08:40 12/17/17 08:40 12/17/17 08:50 12/17/17 08:40 Intake and Output: 12/17/17 12/17/17 06:59 18:59 Intake Total 640 120 Balance 640 120 - Medications Medications: Current Medications Acetaminophen (Tylenol 325mg Tab) 650 mg PO Q6 PRN PRN Reason: Pain, Mild (1-3) Last Admin: 11/25/17 21:50 Dose: 650 mg Benztropine Mesylate (Cogentin) 0.5 mg PO BID [facility] Last Admin: 12/17/17 10:51 Dose: Not Given Dextrose (Dextrose 50% Inj) 0 ml IV STAT PRN; Protocol PRN Reason: Hypoglycemia Protocol Last Admin: 12/06/17 06:53 Dose: 50 ml Dextrose (Glutose 15) 15 gm PO ONCE PRN; Protocol PRN Reason: Hypoglycemia Protocol Diphenhydramine HCl (Benadryl) 25 mg IVP Q8 PRN PRN Reason: Agitation Last Admin: 12/16/17 11:08 Dose: 25 mg Divalproex Sodium (Depakote Sprinkles) 250 mg PO BID [facility] Last Admin: 12/17/17 10:14 Dose: Not Given Famotidine (Pepcid) 20 mg PO DAILY [facility] Last Admin: 12/17/17 10:50 Dose: 20 mg Glucagon (Glucagen Diagnostic Kit) 1 mg IM STAT PRN; Protocol PRN Reason: Hypoglycemia Protocol Sodium Chloride (Sodium Chloride 0.45%) 1,000 mls @ 50 mls/hr IV .Q20H [facility] Last Admin: 12/17/17 05:29 Dose: 50 mls/hr Insulin Aspart (Novolog) 0 unit SC ACHS [facility] PRN Reason: Protocol Last Admin: 12/17/17 12:26 Dose: Not Given Insulin Glargine (Lantus) 15 unit SC HS [facility] Last Admin: 12/16/17 22:00 Dose: Not Given Metoprolol Tartrate (Lopressor) 25 mg PO BID [facility] Last Admin: 12/17/17 10:14 Dose: Not Given Risperidone (Risperdal Tab) 1 mg PO BID [facility] Last Admin: 12/17/17 10:52 Dose: Not Given Sodium Bicarbonate (Sodium Bicarbonate Tab) 650 mg PO Q6 [facility] Last Admin: 12/17/17 12:27 Dose: Not Given Tamsulosin HCl (Flomax) 0.4 mg PO DAILY [facility] Last Admin: 12/17/17 10:50 Dose: 0.4 mg - Labs Labs: 12/17/17 06:35 12/17/17 06:35 - Constitutional Appears: Cachectic, Chronically Ill - Head Exam Head Exam: ATRAUMATIC, NORMAL INSPECTION - Eye Exam Eye Exam: EOMI, Normal appearance - Neck Exam Neck Exam: Normal Inspection. absent: Tenderness - Respiratory Exam Respiratory Exam: Clear to Ausculation Bilateral, NORMAL BREATHING PATTERN - Cardiovascular Exam Cardiovascular Exam: REGULAR RHYTHM, +S1 - GI/Abdominal Exam GI & Abdominal Exam: Soft. absent: Tenderness - Extremities Exam Extremities Exam: Normal Inspection. absent: Tenderness - Neurological Exam Neurological Exam: Alert, CN II-XII Intact - Skin Skin Exam: Dry, Warm Assessment and Plan (1) CKD (chronic kidney disease) stage 4, GFR 15-29 ml/min Status: Acute (2) JOY (acute kidney injury) Status: Acute (3) Dementia Status: Acute (4) Bilateral hydronephrosis Status: Acute - Assessment and Plan (Free Text) Plan: Same mild fluid hydration oral bicarb monitor mental status
--- NOTE | 2017-12-17 13:42 | RAD ---
Date of service: 12/17/2017 HISTORY: leukocytosis COMPARISON: 11/23/2017. FINDINGS: LUNGS: The lungs are well inflated. There is mild pulmonary venous congestion. PLEURA: No significant pleural effusion identified, no pneumothorax apparent. CARDIOVASCULAR: There is moderate cardiomegaly. OSSEOUS STRUCTURES: No significant abnormalities. VISUALIZED UPPER ABDOMEN: Normal. OTHER FINDINGS: None. IMPRESSION: Moderate cardiomegaly and mild pulmonary venous congestion. No active pulmonary disease.
[2017-12-17 13:46] LABS: HEMOGLOBIN 8.9 g/dL (12.0-18.0); MEAN CORPUSCULAR HEMOGLOBIN 27.9 pg (27.0-31.0); MEAN CORPUSCULAR HGB CONC 33.3 g/dL (33.0-37.0); MEAN PLATELET VOLUME 6.8 fL (7.2-11.7); RBC 3.17 Mil/uL (4.40-5.90); RED CELL DISTRIBUTION WIDTH 15.1 % (11.5-14.5); WHITE BLOOD COUNT 9.2 K/uL (4.8-10.8)
[2017-12-17] MEDS ORDERED: Cefepime IV 2 gm in Dextrose 2 GM/100 ML BAG IVPB ONE (14:00)
[2017-12-17 14:04] LABS: ALBUMIN 3.6 g/dL (3.5-5.0); CALCIUM 8.2 mg/dl (8.6-10.4)
[2017-12-17] MEDS ORDERED: Sod Polystyrene Sulf 15 gm/60 ml Susp PO ONE ×2 (14:21→16:30)
--- NOTE | 2017-12-17 14:43 | CP.PCM.PN ---
Subjective - Date & Time of Evaluation Date of Evaluation: 12/17/17 Time of Evaluation: 02:40 - Subjective Subjective: dictated Objective - Vital Signs/Intake and Output Vital Signs (last 24 hours): Temp Pulse Resp BP Pulse Ox 99.7 F H 77 20 101/61 96 12/17/17 13:15 12/17/17 13:15 12/17/17 13:15 12/17/17 13:15 12/17/17 13:15 Intake and Output: 12/17/17 12/17/17 06:59 18:59 Intake Total 640 120 Balance 640 120 - Medications Medications: Current Medications Acetaminophen (Tylenol 325mg Tab) 650 mg PO Q6 PRN PRN Reason: Pain, Mild (1-3) Last Admin: 11/25/17 21:50 Dose: 650 mg Benztropine Mesylate (Cogentin) 0.5 mg PO BID [facility] Last Admin: 12/17/17 10:51 Dose: Not Given Dextrose (Dextrose 50% Inj) 0 ml IV STAT PRN; Protocol PRN Reason: Hypoglycemia Protocol Last Admin: 12/06/17 06:53 Dose: 50 ml Dextrose (Glutose 15) 15 gm PO ONCE PRN; Protocol PRN Reason: Hypoglycemia Protocol Diphenhydramine HCl (Benadryl) 25 mg IVP Q8 PRN PRN Reason: Agitation Last Admin: 12/16/17 11:08 Dose: 25 mg Divalproex Sodium (Depakote Sprinkles) 250 mg PO BID [facility] Last Admin: 12/17/17 10:14 Dose: Not Given Famotidine (Pepcid) 20 mg PO DAILY [facility] Last Admin: 12/17/17 10:50 Dose: 20 mg Glucagon (Glucagen Diagnostic Kit) 1 mg IM STAT PRN; Protocol PRN Reason: Hypoglycemia Protocol Sodium Chloride (Sodium Chloride 0.45%) 1,000 mls @ 80 mls/hr IV .[id number] [facility] Last Admin: 12/17/17 13:05 Dose: 80 mls/hr Linezolid (Zyvox 600mg/300ml D5w) 600 mg in 300 mls @ 200 mls/hr IVPB Q12H [facility] PRN Reason: Protocol Ciprofloxacin (Cipro 400mg/200ml Dsw) 400 mg in 200 mls @ 133 mls/hr IVPB Q24H [facility] PRN Reason: Protocol Acetaminophen 1,000 mg/ (Miscellaneous) 100 mls @ 400 mls/hr IV Q6 PRN PRN Reason: Fever >100.4 F Stop: 12/18/17 14:42 Insulin Aspart (Novolog) 0 unit SC ACHS [facility] PRN Reason: Protocol Last Admin: 12/17/17 12:26 Dose: Not Given Insulin Glargine (Lantus) 15 unit SC HS [facility] Last Admin: 12/16/17 22:00 Dose: Not Given Metoprolol Tartrate (Lopressor) 25 mg PO BID [facility] Last Admin: 12/17/17 10:14 Dose: Not Given Risperidone (Risperdal Tab) 1 mg PO BID [facility] Last Admin: 12/17/17 10:52 Dose: Not Given Sodium Bicarbonate (Sodium Bicarbonate Tab) 650 mg PO Q6 [facility] Last Admin: 12/17/17 12:27 Dose: Not Given Sodium Polystyrene Sulfonate (Kayexalate Susp) 15 gm PO ONCE ONE Stop: 12/17/17 16:31 Tamsulosin HCl (Flomax) 0.4 mg PO DAILY [facility] Last Admin: 12/17/17 10:50 Dose: 0.4 mg - Labs Labs: 12/17/17 13:37 12/17/17 13:37
[2017-12-17] MEDS ORDERED: Ciprofloxacin 400mg/200ml D5W 400 MG/200 ML BAG IVPB SCH (15:00)
[2017-12-17] MEDS ORDERED: Linezolid 600 mg in D5W 300 ml 600 MG/300 ML BAG IVPB SCH (15:30)
[2017-12-17] MEDS: Ciprofloxacin 400mg/200ml D5W 400 MG/200 ML BAG IVPB SCH (17:40)
[2017-12-17] MEDS: Linezolid 600 mg in D5W 300 ml 600 MG/300 ML BAG IVPB SCH (18:40)
--- NOTE | 2017-12-17 19:37 | CP.PCM.PN ---
Subjective - Date & Time of Evaluation Date of Evaluation: 12/17/17 Time of Evaluation: 09:00 - Subjective Subjective: clinically same Objective - Vital Signs/Intake and Output Vital Signs (last 24 hours): Temp Pulse Resp BP Pulse Ox 99.7 F H 115 H 20 100/64 95 12/17/17 15:00 12/17/17 15:00 12/17/17 15:00 12/17/17 18:30 12/17/17 15:00 Intake and Output: 12/17/17 12/18/17 18:59 06:59 Intake Total 630 Output Total 150 Balance 480 - Medications Medications: Current Medications Acetaminophen (Tylenol 325mg Tab) 650 mg PO Q6 PRN PRN Reason: Pain, Mild (1-3) Last Admin: 11/25/17 21:50 Dose: 650 mg Benztropine Mesylate (Cogentin) 0.5 mg PO BID [facility] Last Admin: 12/17/17 18:28 Dose: Not Given Dextrose (Dextrose 50% Inj) 0 ml IV STAT PRN; Protocol PRN Reason: Hypoglycemia Protocol Last Admin: 12/06/17 06:53 Dose: 50 ml Dextrose (Glutose 15) 15 gm PO ONCE PRN; Protocol PRN Reason: Hypoglycemia Protocol Diphenhydramine HCl (Benadryl) 25 mg IVP Q8 PRN PRN Reason: Agitation Last Admin: 12/16/17 11:08 Dose: 25 mg Divalproex Sodium (Depakote Sprinkles) 250 mg PO BID [facility] Last Admin: 12/17/17 18:29 Dose: Not Given Famotidine (Pepcid) 20 mg PO DAILY [facility] Last Admin: 12/17/17 10:50 Dose: 20 mg Glucagon (Glucagen Diagnostic Kit) 1 mg IM STAT PRN; Protocol PRN Reason: Hypoglycemia Protocol Sodium Chloride (Sodium Chloride 0.45%) 1,000 mls @ 80 mls/hr IV .[id number] [facility] Last Admin: 12/17/17 13:05 Dose: 80 mls/hr Acetaminophen (Ofirmev) 100 mls @ 400 mls/hr IV Q6 PRN PRN Reason: Fever >100.4 F Stop: 12/18/17 16:01 Ciprofloxacin (Cipro 400mg/200ml Dsw) 400 mg in 200 mls @ 133 mls/hr IVPB Q24H [facility] PRN Reason: Protocol Last Admin: 12/17/17 17:40 Dose: 133 mls/hr Linezolid (Zyvox 600mg/300ml D5w) 600 mg in 300 mls @ 200 mls/hr IVPB Q12H [facility] PRN Reason: Protocol Last Admin: 12/17/17 18:40 Dose: 200 mls/hr Insulin Aspart (Novolog) 0 unit SC ACHS [facility] PRN Reason: Protocol Last Admin: 12/17/17 16:27 Dose: Not Given Insulin Glargine (Lantus) 15 unit SC HS [facility] Last Admin: 12/16/17 22:00 Dose: Not Given Metoprolol Tartrate (Lopressor) 25 mg PO BID [facility] Last Admin: 12/17/17 18:30 Dose: Not Given Risperidone (Risperdal Tab) 1 mg PO BID [facility] Last Admin: 12/17/17 18:29 Dose: Not Given Sodium Bicarbonate (Sodium Bicarbonate Tab) 650 mg PO Q6 [facility] Last Admin: 12/17/17 18:28 Dose: Not Given Tamsulosin HCl (Flomax) 0.4 mg PO DAILY [facility] Last Admin: 12/17/17 10:50 Dose: 0.4 mg - Labs Labs: 12/17/17 13:37 12/17/17 13:37 - Constitutional Appears: Well - Head Exam Head Exam: ATRAUMATIC, NORMAL INSPECTION, NORMOCEPHALIC - Eye Exam Eye Exam: EOMI, Normal appearance, PERRL Pupil Exam: NORMAL ACCOMODATION, PERRL - ENT Exam ENT Exam: Mucous Membranes Moist, Normal Exam - Neck Exam Neck Exam: Full ROM, Normal Inspection. absent: Lymphadenopathy - Respiratory Exam Respiratory Exam: Decreased Breath Sounds - Cardiovascular Exam Cardiovascular Exam: REGULAR RHYTHM, +S1, +S2 - GI/Abdominal Exam GI & Abdominal Exam: Soft, Diminished Bowel Sounds - Rectal Exam Rectal Exam: Deferred
[2017-12-17] MEDS: (Lantus) Insulin Glargine, Recombinant SC SCH (22:13)
[2017-12-17 23:03] LABS: URINE BACTERIA MOD (<OCC)
[2017-12-17 23:04] LABS: URINE BILIRUBIN NEGATIVE (NEGATIVE); URINE BLOOD 2+ (NEGATIVE); URINE CLARITY Hazy (Clear); URINE COLOR Yellow (YELLOW); URINE GLUCOSE (UA) NORMAL (Normal); URINE LEUKOCYTE ESTERASE 3+ Leu/uL (Negative); URINE PROTEIN 1+ mg/dL (NEGATIVE); URINE UROBILINOGEN NORMAL mg/dL (0.2-1.0)
[2017-12-18] MEDS: Sodium Chloride 0.45% 1,000 ML IV SCH ×2 (00:01→01:28)
--- NOTE | 2017-12-18 02:18 | PN ---
Copied To: Teresa Barnett MD Attending MD: Teresa Barnett MD DATE: 12/17/2017 SUBJECTIVE: I received a call from the nurse that he has been running fevers. I had stopped seeing him as he was off antibiotics. It was more of a psych problems that he had, and he also had renal insufficiency. Today, I went to see him. PHYSICAL EXAMINATION: VITAL SIGNS: He had a fever of 100.3, and now, it is 99.7; pulse is 115; blood pressure of 100/64; respirations 20. GENERAL: The patient was very drowsy, poorly responsive. He appeared to be as if he was sleeping with oxygen on. He was in no distress. HEENT: Head is atraumatic. NECK: Supple. JVP flat. LUNGS: Clear. HEART: S1, S2 are regular. ABDOMEN: Soft, nontender. He has a colostomy bag in the right lower quadrant. EXTREMITIES: Had no edema. In the forearm, he had an area of redness with some induration which may be a previous IV site, which was red and warm, and may be the source of fever. LABORATORY DATA: At this time, we did labs. White count is 9.2, hemoglobin 8.9, hematocrit 26.7, platelet count is 293, and his sodium was 138, potassium 5.4, chlorides are 106, BUN is 20, creatinine was 2.5, random sugar was 181, and alk phos is 123. He had Enterobacter in the urine before, as I decided to put him back on Cipro, and I gave him Zyvox because he has severe renal insufficiency and he is being followed by renal attending, so we gave him Zyvox and Cipro at this time, and did a chest x-ray. Chest x-ray did not show any infiltrate, and the patient is with phlebitis which may be giving him fevers, and if his mental status does not improve or he does not wake up, I think, we should get a CAT scan of the head. ASSESSMENT AND PLAN: He has renal insufficiency. He did have a urinary tract infection. He has a change in mental status, and we will follow. Teresa Barnett MD
[2017-12-18] MEDS: Linezolid 600 mg in D5W 300 ml 600 MG/300 ML BAG IVPB SCH ×2 (06:02→19:07)
[2017-12-18] MEDS: (Novolog) Insulin Aspart, Recombinant 100 u/ml 10 ml vial SC SCH ×4 (08:06→22:06)
[2017-12-18] MEDS: Divalproex 125 mg Sprinkle Capsule PO SCH ×2 (10:00→17:32)
--- NOTE | 2017-12-18 10:15 | CT ---
Date of service: 12/18/2017 PROCEDURE: CT HEAD WITHOUT CONTRAST. HISTORY: LETHARGIC COMPARISON: Noncontrast head CT 11/23/2017. TECHNIQUE: Axial computed tomography images were obtained through the head/brain without intravenous contrast. Radiation dose: Total exam DLP = 995.85 mGy-cm. This CT exam was performed using one or more of the following dose reduction techniques: Automated exposure control, adjustment of the mA and/or kV according to patient size, and/or use of iterative reconstruction technique. FINDINGS: HEMORRHAGE: No intracranial hemorrhage. BRAIN: Good corticomedullary differentiation is seen. Reiterated diffuse cerebral atrophy and chronic microangiopathy. No suspicious extra-axial fluid collection is identified and the midline brain anatomy appears grossly nonfocal as imaged there is no mass effect identified. Chronic lacune reiterated superior right basal ganglia as well as left cerebellum. VENTRICLES: Unremarkable. No hydrocephalus. CALVARIUM: Unremarkable. PARANASAL SINUSES: Unremarkable as visualized. No significant inflammatory changes. MASTOID AIR CELLS: Unremarkable as visualized. No inflammatory changes. OTHER FINDINGS: None. IMPRESSION: Stable age related neuro degenerative changes lag. Chronic lacune right basal ganglia and left cerebellum.
--- NOTE | 2017-12-18 10:24 | CP.PCM.PN ---
Subjective - Date & Time of Evaluation Date of Evaluation: 12/18/17 Time of Evaluation: 10:20 - Subjective Subjective: More lethargic, not eating much now Lethargy possibly from psych meds? Renal function worse Will need increase IV fluids Objective - Vital Signs/Intake and Output Vital Signs (last 24 hours): Temp Pulse Resp BP Pulse Ox 98.2 F 100 H 20 99/63 L 98 12/18/17 07:40 12/18/17 07:40 12/18/17 07:40 12/18/17 07:40 12/18/17 07:40 Intake and Output: 12/18/17 12/18/17 06:59 18:59 Intake Total 1500 Output Total 500 Balance 1000 - Medications Medications: Current Medications Acetaminophen (Tylenol 325mg Tab) 650 mg PO Q6 PRN PRN Reason: Pain, Mild (1-3) Last Admin: 11/25/17 21:50 Dose: 650 mg Benztropine Mesylate (Cogentin) 0.5 mg PO BID [facility] Last Admin: 12/17/17 18:28 Dose: Not Given Dextrose (Dextrose 50% Inj) 0 ml IV STAT PRN; Protocol PRN Reason: Hypoglycemia Protocol Last Admin: 12/06/17 06:53 Dose: 50 ml Dextrose (Glutose 15) 15 gm PO ONCE PRN; Protocol PRN Reason: Hypoglycemia Protocol Diphenhydramine HCl (Benadryl) 25 mg IVP Q8 PRN PRN Reason: Agitation Last Admin: 12/16/17 11:08 Dose: 25 mg Divalproex Sodium (Depakote Sprinkles) 250 mg PO BID [facility] Last Admin: 12/17/17 18:29 Dose: Not Given Famotidine (Pepcid) 20 mg PO DAILY [facility] Last Admin: 12/17/17 10:50 Dose: 20 mg Glucagon (Glucagen Diagnostic Kit) 1 mg IM STAT PRN; Protocol PRN Reason: Hypoglycemia Protocol Sodium Chloride (Sodium Chloride 0.45%) 1,000 mls @ 80 mls/hr IV .[id number] [facility] Last Admin: 12/18/17 01:28 Dose: Not Given Acetaminophen (Ofirmev) 100 mls @ 400 mls/hr IV Q6 PRN PRN Reason: Fever >100.4 F Stop: 12/18/17 16:01 Ciprofloxacin (Cipro 400mg/200ml Dsw) 400 mg in 200 mls @ 133 mls/hr IVPB Q24H [facility] PRN Reason: Protocol Last Admin: 12/17/17 17:40 Dose: 133 mls/hr Linezolid (Zyvox 600mg/300ml D5w) 600 mg in 300 mls @ 200 mls/hr IVPB Q12H [facility] PRN Reason: Protocol Last Admin: 12/18/17 06:02 Dose: 200 mls/hr Insulin Aspart (Novolog) 0 unit SC ACHS [facility] PRN Reason: Protocol Last Admin: 12/18/17 08:06 Dose: Not Given Insulin Glargine (Lantus) 15 unit SC HS [facility] Last Admin: 12/17/17 22:13 Dose: Not Given Metoprolol Tartrate (Lopressor) 25 mg PO BID [facility] Last Admin: 12/17/17 18:30 Dose: Not Given Risperidone (Risperdal Tab) 1 mg PO BID [facility] Last Admin: 12/17/17 18:29 Dose: Not Given Sodium Bicarbonate (Sodium Bicarbonate Tab) 650 mg PO Q6 [facility] Last Admin: 12/18/17 05:35 Dose: Not Given Tamsulosin HCl (Flomax) 0.4 mg PO DAILY [facility] Last Admin: 12/17/17 10:50 Dose: 0.4 mg - Labs Labs: 12/17/17 13:37 12/17/17 13:37 - Constitutional Appears: No Acute Distress, Confused - Head Exam Head Exam: ATRAUMATIC, NORMAL INSPECTION - Neck Exam Neck Exam: Normal Inspection. absent: Tenderness - Respiratory Exam Respiratory Exam: Clear to Ausculation Bilateral, NORMAL BREATHING PATTERN - Cardiovascular Exam Cardiovascular Exam: REGULAR RHYTHM, +S1 - GI/Abdominal Exam GI & Abdominal Exam: Soft. absent: Tenderness - Extremities Exam Extremities Exam: Normal Inspection. absent: Tenderness - Neurological Exam Neurological Exam: Altered - Skin Skin Exam: Dry, Warm Assessment and Plan (1) CKD (chronic kidney disease) stage 4, GFR 15-29 ml/min Status: Acute (2) JOY (acute kidney injury) Status: Acute (3) Dementia Status: Acute (4) Bilateral hydronephrosis Status: Acute - Assessment and Plan (Free Text) Plan: Increase IV fluid rate- add na bicarb IV' hold oral bicarb Repeat chemistries psych follow up about meds
[2017-12-18] MEDS ORDERED: SODIUM BICARBONATE IV SCH (10:27)
[2017-12-18] MEDS ORDERED: SODIUM CHLORIDE IV SCH (10:27)
[2017-12-18 12:07] LABS: HEMOGLOBIN 8.6 g/dL (12.0-18.0); MEAN CELL VOLUME 84.1 fL (80.0-94.0); MEAN CORPUSCULAR HEMOGLOBIN 28.2 pg (27.0-31.0); MEAN CORPUSCULAR HGB CONC 33.6 g/dL (33.0-37.0); MEAN PLATELET VOLUME 7.4 fL (7.2-11.7); RBC 3.06 Mil/uL (4.40-5.90); RED CELL DISTRIBUTION WIDTH 15.1 % (11.5-14.5)
[2017-12-18 12:09] LABS: WHITE BLOOD COUNT 4.5 K/uL (4.8-10.8)
[2017-12-18 12:40] LABS: CALCIUM 8.6 mg/dl (8.6-10.4)
--- NOTE | 2017-12-18 13:10 | CP.PCM.PN ---
Subjective - Date & Time of Evaluation Date of Evaluation: 12/18/17 Time of Evaluation: 09:00 - Subjective Subjective: clinically same Objective - Vital Signs/Intake and Output Vital Signs (last 24 hours): Temp Pulse Resp BP Pulse Ox 98.9 F 100 H 20 108/65 98 12/18/17 12:30 12/18/17 12:30 12/18/17 12:30 12/18/17 12:30 12/18/17 12:30 Intake and Output: 12/18/17 12/18/17 06:59 18:59 Intake Total 1500 Output Total 500 Balance 1000 - Medications Medications: Current Medications Acetaminophen (Tylenol 325mg Tab) 650 mg PO Q6 PRN PRN Reason: Pain, Mild (1-3) Last Admin: 11/25/17 21:50 Dose: 650 mg Benztropine Mesylate (Cogentin) 0.5 mg PO BID [facility] Last Admin: 12/18/17 10:00 Dose: Not Given Dextrose (Dextrose 50% Inj) 0 ml IV STAT PRN; Protocol PRN Reason: Hypoglycemia Protocol Last Admin: 12/06/17 06:53 Dose: 50 ml Dextrose (Glutose 15) 15 gm PO ONCE PRN; Protocol PRN Reason: Hypoglycemia Protocol Diphenhydramine HCl (Benadryl) 25 mg IVP Q8 PRN PRN Reason: Agitation Last Admin: 12/16/17 11:08 Dose: 25 mg Divalproex Sodium (Depakote Sprinkles) 125 mg PO BID [facility] Famotidine (Pepcid) 20 mg PO DAILY [facility] Last Admin: 12/17/17 10:50 Dose: 20 mg Glucagon (Glucagen Diagnostic Kit) 1 mg IM STAT PRN; Protocol PRN Reason: Hypoglycemia Protocol Acetaminophen (Ofirmev) 100 mls @ 400 mls/hr IV Q6 PRN PRN Reason: Fever >100.4 F Stop: 12/18/17 16:01 Ciprofloxacin (Cipro 400mg/200ml Dsw) 400 mg in 200 mls @ 133 mls/hr IVPB Q24H [facility] PRN Reason: Protocol Last Admin: 12/17/17 17:40 Dose: 133 mls/hr Linezolid (Zyvox 600mg/300ml D5w) 600 mg in 300 mls @ 200 mls/hr IVPB Q12H [facility] PRN Reason: Protocol Last Admin: 12/18/17 06:02 Dose: 200 mls/hr Sodium Bicarbonate 50 ml/ (Sodium Chloride) 1,000 mls @ 125 mls/hr IV .Q8H [facility] Insulin Aspart (Novolog) 0 unit SC ACHS [facility] PRN Reason: Protocol Last Admin: 12/18/17 12:35 Dose: Not Given Insulin Glargine (Lantus) 15 unit SC HS [facility] Last Admin: 12/17/17 22:13 Dose: Not Given Metoprolol Tartrate (Lopressor) 25 mg PO BID [facility] Last Admin: 12/18/17 10:00 Dose: Not Given Risperidone (Risperdal Tab) 0.5 mg PO BID [facility] Tamsulosin HCl (Flomax) 0.4 mg PO DAILY [facility] Last Admin: 12/17/17 10:50 Dose: 0.4 mg - Labs Labs: 12/18/17 11:56 12/18/17 11:56 - Constitutional Appears: Well - Head Exam Head Exam: ATRAUMATIC, NORMAL INSPECTION, NORMOCEPHALIC - Eye Exam Eye Exam: EOMI, Normal appearance, PERRL Pupil Exam: NORMAL ACCOMODATION, PERRL - ENT Exam ENT Exam: Mucous Membranes Moist, Normal Exam - Neck Exam Neck Exam: Full ROM, Normal Inspection. absent: Lymphadenopathy - Respiratory Exam Respiratory Exam: Decreased Breath Sounds - Cardiovascular Exam Cardiovascular Exam: REGULAR RHYTHM, +S1, +S2 - GI/Abdominal Exam GI & Abdominal Exam: Soft, Diminished Bowel Sounds - Rectal Exam Rectal Exam: Deferred
[2017-12-18] MEDS: SODIUM BICARBONATE IV SCH ×2 (13:34→21:06)
[2017-12-18] MEDS: SODIUM CHLORIDE IV SCH ×2 (13:34→21:06)
--- NOTE | 2017-12-18 13:58 | CP.PCM.PN ---
Subjective - Date & Time of Evaluation Date of Evaluation: 12/18/17 Time of Evaluation: 12:00 - Subjective Subjective: dictated Objective - Vital Signs/Intake and Output Vital Signs (last 24 hours): Temp Pulse Resp BP Pulse Ox 98.9 F 100 H 20 108/65 98 12/18/17 12:30 12/18/17 12:30 12/18/17 12:30 12/18/17 12:30 12/18/17 12:30 Intake and Output: 12/18/17 12/18/17 06:59 18:59 Intake Total 1500 Output Total 500 Balance 1000 - Medications Medications: Current Medications Acetaminophen (Tylenol 325mg Tab) 650 mg PO Q6 PRN PRN Reason: Pain, Mild (1-3) Last Admin: 12/18/17 13:31 Dose: 650 mg Benztropine Mesylate (Cogentin) 0.5 mg PO BID [facility] Last Admin: 12/18/17 10:00 Dose: Not Given Dextrose (Dextrose 50% Inj) 0 ml IV STAT PRN; Protocol PRN Reason: Hypoglycemia Protocol Last Admin: 12/06/17 06:53 Dose: 50 ml Dextrose (Glutose 15) 15 gm PO ONCE PRN; Protocol PRN Reason: Hypoglycemia Protocol Diphenhydramine HCl (Benadryl) 25 mg IVP Q8 PRN PRN Reason: Agitation Last Admin: 12/16/17 11:08 Dose: 25 mg Divalproex Sodium (Depakote Sprinkles) 125 mg PO BID [facility] Famotidine (Pepcid) 20 mg PO DAILY [facility] Last Admin: 12/18/17 13:32 Dose: 20 mg Glucagon (Glucagen Diagnostic Kit) 1 mg IM STAT PRN; Protocol PRN Reason: Hypoglycemia Protocol Acetaminophen (Ofirmev) 100 mls @ 400 mls/hr IV Q6 PRN PRN Reason: Fever >100.4 F Stop: 12/18/17 16:01 Ciprofloxacin (Cipro 400mg/200ml Dsw) 400 mg in 200 mls @ 133 mls/hr IVPB Q24H [facility] PRN Reason: Protocol Last Admin: 12/17/17 17:40 Dose: 133 mls/hr Linezolid (Zyvox 600mg/300ml D5w) 600 mg in 300 mls @ 200 mls/hr IVPB Q12H [facility] PRN Reason: Protocol Last Admin: 12/18/17 06:02 Dose: 200 mls/hr Sodium Bicarbonate 50 ml/ (Sodium Chloride) 1,000 mls @ 125 mls/hr IV .Q8H [facility] Last Admin: 12/18/17 13:34 Dose: 125 mls/hr Insulin Aspart (Novolog) 0 unit SC ACHS [facility] PRN Reason: Protocol Last Admin: 12/18/17 12:35 Dose: Not Given Insulin Glargine (Lantus) 15 unit SC HS [facility] Last Admin: 12/17/17 22:13 Dose: Not Given Metoprolol Tartrate (Lopressor) 25 mg PO BID [facility] Last Admin: 12/18/17 10:00 Dose: Not Given Risperidone (Risperdal Tab) 0.5 mg PO BID [facility] Tamsulosin HCl (Flomax) 0.4 mg PO DAILY [facility] Last Admin: 12/18/17 13:33 Dose: 0.4 mg - Labs Labs: 12/18/17 11:56 12/18/17 11:56
[2017-12-18] MEDS: Ciprofloxacin 400mg/200ml D5W 400 MG/200 ML BAG IVPB SCH (17:31)
--- NOTE | 2017-12-18 19:35 | PN ---
Copied To: Teresa Barnett MD Attending MD: Teresa Barnett MD DATE: 12/18/2017 SUBJECTIVE: The patient is more awake now. The nurse told me that he went for CAT scan before, and the CAT scan shows atrophic changes and not much change. He is more awake at this time but falls of to sleep. He also tells me that the psychiatrist is decreasing his psych meds, maybe they are also causing him to be very drowsy, but he fell off to sleep in front of me. PHYSICAL EXAMINATION: VITAL SIGNS: Temperature is 98.9 today. He is afebrile. His pulse is 100, blood pressure 108/65, respirations 20. HEENT: Head is atraumatic. NECK: Supple. LUNGS: Clear. No crackles or rales present. HEART: S1 and S2 present. ABDOMEN: Soft, nontender. Colostomy is present. EXTREMITIES: Left forearm, there is an area which is red and cellulitic and may have an abscess underneath, and we are keeping an eye on that. No edema, clubbing, or cyanosis as such other than this problem. LABORATORY DATA: Labs are noted. Labs show white count is 4.5, hemoglobin 8.6, hematocrit 25.7, and platelet count is 271,000. Sodium is 136, potassium 4.5, chloride 105, CO2 19, anion gap is 16, creatinine has increased to 2.7, BUN is 45. His blood culture came out negative but the urine had a lot of wbc's and 3+ leukocytes. Bacteria moderate. It may grow some bacteria. ASSESSMENT AND PLAN: Right now, the patient is on Zyvox and Cipro, and he is also on bicarb drip and getting 50 every eight hours and we will follow. He has psych issues. Teresa Barnett MD
[2017-12-18] MEDS: (Lantus) Insulin Glargine, Recombinant SC SCH (22:05)
[2017-12-19] MEDS: SODIUM CHLORIDE IV SCH (05:52)
[2017-12-19] MEDS: SODIUM BICARBONATE IV SCH ×3 (05:52→23:02)
[2017-12-19] MEDS: Linezolid 600 mg in D5W 300 ml 600 MG/300 ML BAG IVPB SCH ×2 (06:02→19:38)
[2017-12-19] MEDS: (Novolog) Insulin Aspart, Recombinant 100 u/ml 10 ml vial SC SCH ×4 (08:11→22:37)
[2017-12-19 09:12] LABS: ALBUMIN 3.6 g/dL (3.5-5.0); CALCIUM 8.8 mg/dl (8.6-10.4)
[2017-12-19] MEDS: Divalproex 125 mg Sprinkle Capsule PO SCH ×2 (09:20→18:06)
[2017-12-19] MEDS: DiphenhydrAMINE 50 mg/ml Inj IVP PRN (09:21)
[2017-12-19] MEDS: SODIUM CHLORIDE 0.45% IV SCH ×2 (13:15→23:02)
--- NOTE | 2017-12-19 13:31 | CP.PCM.PN ---
Subjective - Date & Time of Evaluation Date of Evaluation: 12/19/17 Time of Evaluation: 09:00 - Subjective Subjective: clinically same Objective - Vital Signs/Intake and Output Vital Signs (last 24 hours): Temp Pulse Resp BP Pulse Ox 97.5 F L 90 20 113/73 95 12/19/17 07:35 12/19/17 07:35 12/19/17 07:35 12/19/17 09:21 12/19/17 07:35 Intake and Output: 12/19/17 12/19/17 06:59 18:59 Intake Total 1240 Balance 1240 - Medications Medications: Current Medications Acetaminophen (Tylenol 325mg Tab) 650 mg PO Q6 PRN PRN Reason: Pain, Mild (1-3) Last Admin: 12/18/17 13:31 Dose: 650 mg Benztropine Mesylate (Cogentin) 0.5 mg PO BID [facility] Last Admin: 12/19/17 09:20 Dose: 0.5 mg Dextrose (Dextrose 50% Inj) 0 ml IV STAT PRN; Protocol PRN Reason: Hypoglycemia Protocol Last Admin: 12/06/17 06:53 Dose: 50 ml Dextrose (Glutose 15) 15 gm PO ONCE PRN; Protocol PRN Reason: Hypoglycemia Protocol Diphenhydramine HCl (Benadryl) 25 mg IVP Q8 PRN PRN Reason: Agitation Last Admin: 12/19/17 09:21 Dose: 25 mg Divalproex Sodium (Depakote Sprinkles) 125 mg PO BID [facility] Last Admin: 12/19/17 09:20 Dose: 125 mg Famotidine (Pepcid) 20 mg PO DAILY [facility] Last Admin: 12/19/17 09:21 Dose: 20 mg Glucagon (Glucagen Diagnostic Kit) 1 mg IM STAT PRN; Protocol PRN Reason: Hypoglycemia Protocol Ciprofloxacin (Cipro 400mg/200ml Dsw) 400 mg in 200 mls @ 133 mls/hr IVPB Q24H [facility] PRN Reason: Protocol Last Admin: 12/18/17 17:31 Dose: 133 mls/hr Linezolid (Zyvox 600mg/300ml D5w) 600 mg in 300 mls @ 200 mls/hr IVPB Q12H [facility] PRN Reason: Protocol Last Admin: 12/19/17 06:02 Dose: 200 mls/hr Sodium Bicarbonate 50 meq/ (Sodium Chloride) 1,000 mls @ 125 mls/hr IV .Q8H [facility] Insulin Aspart (Novolog) 0 unit SC ACHS [facility] PRN Reason: Protocol Last Admin: 12/19/17 12:45 Dose: 2 unit Insulin Glargine (Lantus) 15 unit SC HS [facility] Last Admin: 12/18/17 22:05 Dose: Not Given Metoprolol Tartrate (Lopressor) 25 mg PO BID [facility] Last Admin: 12/19/17 09:21 Dose: 25 mg Risperidone (Risperdal Tab) 0.5 mg PO BID [facility] Last Admin: 12/19/17 09:20 Dose: 0.5 mg Tamsulosin HCl (Flomax) 0.4 mg PO DAILY [facility] Last Admin: 12/19/17 09:21 Dose: 0.4 mg - Labs Labs: 12/18/17 11:56 12/19/17 08:41 - Constitutional Appears: Well - Head Exam Head Exam: ATRAUMATIC, NORMAL INSPECTION, NORMOCEPHALIC - Eye Exam Eye Exam: EOMI, Normal appearance, PERRL Pupil Exam: NORMAL ACCOMODATION, PERRL - ENT Exam ENT Exam: Mucous Membranes Moist, Normal Exam - Neck Exam Neck Exam: Full ROM, Normal Inspection. absent: Lymphadenopathy - Respiratory Exam Respiratory Exam: Decreased Breath Sounds - Cardiovascular Exam Cardiovascular Exam: REGULAR RHYTHM, +S1, +S2 - GI/Abdominal Exam GI & Abdominal Exam: Soft, Diminished Bowel Sounds - Rectal Exam Rectal Exam: Deferred
--- NOTE | 2017-12-19 18:30 | CP.PCM.PN ---
Subjective - Date & Time of Evaluation Date of Evaluation: 12/19/17 Time of Evaluation: 02:40 - Subjective Subjective: dictated Objective - Vital Signs/Intake and Output Vital Signs (last 24 hours): Temp Pulse Resp BP Pulse Ox 97.5 F L 90 20 113/73 95 12/19/17 07:35 12/19/17 07:35 12/19/17 07:35 12/19/17 09:21 12/19/17 07:35 Intake and Output: 12/19/17 12/19/17 06:59 18:59 Intake Total 1240 Balance 1240 - Medications Medications: Current Medications Acetaminophen (Tylenol 325mg Tab) 650 mg PO Q6 PRN PRN Reason: Pain, Mild (1-3) Last Admin: 12/18/17 13:31 Dose: 650 mg Benztropine Mesylate (Cogentin) 0.5 mg PO BID [facility] Last Admin: 12/19/17 09:20 Dose: 0.5 mg Dextrose (Dextrose 50% Inj) 0 ml IV STAT PRN; Protocol PRN Reason: Hypoglycemia Protocol Last Admin: 12/06/17 06:53 Dose: 50 ml Dextrose (Glutose 15) 15 gm PO ONCE PRN; Protocol PRN Reason: Hypoglycemia Protocol Diphenhydramine HCl (Benadryl) 25 mg IVP Q8 PRN PRN Reason: Agitation Last Admin: 12/19/17 09:21 Dose: 25 mg Divalproex Sodium (Depakote Sprinkles) 125 mg PO BID [facility] Last Admin: 12/19/17 09:20 Dose: 125 mg Famotidine (Pepcid) 20 mg PO DAILY [facility] Last Admin: 12/19/17 09:21 Dose: 20 mg Glucagon (Glucagen Diagnostic Kit) 1 mg IM STAT PRN; Protocol PRN Reason: Hypoglycemia Protocol Ciprofloxacin (Cipro 400mg/200ml Dsw) 400 mg in 200 mls @ 133 mls/hr IVPB Q24H [facility] PRN Reason: Protocol Last Admin: 12/18/17 17:31 Dose: 133 mls/hr Linezolid (Zyvox 600mg/300ml D5w) 600 mg in 300 mls @ 200 mls/hr IVPB Q12H [facility] PRN Reason: Protocol Last Admin: 12/19/17 06:02 Dose: 200 mls/hr Sodium Bicarbonate 50 meq/ (Sodium Chloride) 1,000 mls @ 125 mls/hr IV .Q8H [facility] Last Admin: 12/19/17 13:15 Dose: 125 mls/hr Insulin Aspart (Novolog) [address] [facility] PRN Reason: Protocol Last Admin: 12/19/17 12:45 Dose: 2 unit Insulin Glargine (Lantus) 15 unit SC HS [facility] Last Admin: 12/18/17 22:05 Dose: Not Given Metoprolol Tartrate (Lopressor) 25 mg PO BID [facility] Last Admin: 12/19/17 09:21 Dose: 25 mg Risperidone (Risperdal Tab) 0.5 mg PO BID [facility] Last Admin: 12/19/17 09:20 Dose: 0.5 mg Tamsulosin HCl (Flomax) 0.4 mg PO DAILY [facility] Last Admin: 12/19/17 09:21 Dose: 0.4 mg - Labs Labs: 12/18/17 11:56 12/19/17 08:41
[2017-12-19] MEDS: Ciprofloxacin 400mg/200ml D5W 400 MG/200 ML BAG IVPB SCH (21:04)
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
[2017-12-19] MEDS: (Lantus) Insulin Glargine, Recombinant SC SCH (23:03)
[2017-12-20] MEDS: SODIUM CHLORIDE 0.45% IV SCH ×2 (06:15→18:35)
[2017-12-20] MEDS: SODIUM BICARBONATE IV SCH ×2 (06:15→18:35)
[2017-12-20] MEDS: Linezolid 600 mg in D5W 300 ml 600 MG/300 ML BAG IVPB SCH (07:03)
[2017-12-20] MEDS: (Novolog) Insulin Aspart, Recombinant 100 u/ml 10 ml vial SC SCH ×4 (09:09→23:24)
[2017-12-20] MEDS: Divalproex 125 mg Sprinkle Capsule PO SCH ×2 (09:31→17:09)
--- NOTE | 2017-12-20 12:50 | CP.PCM.PN ---
Subjective - Date & Time of Evaluation Date of Evaluation: 12/20/17 Time of Evaluation: 12:48 - Subjective Subjective: more alert no new complaints eating well now creat still higher at 2.5 lytes acceptable Objective - Vital Signs/Intake and Output Vital Signs (last 24 hours): Temp Pulse Resp BP Pulse Ox 98.0 F 99 H 20 141/84 97 12/20/17 07:00 12/20/17 07:00 12/20/17 07:00 12/20/17 09:30 12/20/17 07:00 - Medications Medications: Current Medications Acetaminophen (Tylenol 325mg Tab) 650 mg PO Q6 PRN PRN Reason: Pain, Mild (1-3) Last Admin: 12/18/17 13:31 Dose: 650 mg Benztropine Mesylate (Cogentin) 0.5 mg PO BID [facility] Last Admin: 12/20/17 09:31 Dose: 0.5 mg Dextrose (Dextrose 50% Inj) 0 ml IV STAT PRN; Protocol PRN Reason: Hypoglycemia Protocol Last Admin: 12/06/17 06:53 Dose: 50 ml Dextrose (Glutose 15) 15 gm PO ONCE PRN; Protocol PRN Reason: Hypoglycemia Protocol Diphenhydramine HCl (Benadryl) 25 mg IVP Q8 PRN PRN Reason: Agitation Last Admin: 12/19/17 09:21 Dose: 25 mg Divalproex Sodium (Depakote Sprinkles) 125 mg PO BID [facility] Last Admin: 12/20/17 09:31 Dose: 125 mg Famotidine (Pepcid) 20 mg PO DAILY [facility] Last Admin: 12/20/17 09:31 Dose: 20 mg Glucagon (Glucagen Diagnostic Kit) 1 mg IM STAT PRN; Protocol PRN Reason: Hypoglycemia Protocol Ciprofloxacin (Cipro 400mg/200ml Dsw) 400 mg in 200 mls @ 133 mls/hr IVPB Q24H [facility] PRN Reason: Protocol Last Admin: 12/19/17 21:04 Dose: 133 mls/hr Sodium Bicarbonate 50 meq/ (Sodium Chloride) 1,000 mls @ 125 mls/hr IV .Q8H [facility] Last Admin: 12/20/17 06:15 Dose: 125 mls/hr Insulin Aspart (Novolog) 0 unit SC ACHS [facility] PRN Reason: Protocol Last Admin: 12/20/17 12:24 Dose: 6 unit Insulin Glargine (Lantus) 15 unit SC HS [facility] Last Admin: 12/19/17 23:03 Dose: 15 unit Linezolid (Zyvox) 600 mg PO Q12H [facility] Metoprolol Tartrate (Lopressor) 25 mg PO BID [facility] Last Admin: 12/20/17 09:30 Dose: 25 mg Risperidone (Risperdal Tab) 0.5 mg PO BID [facility] Last Admin: 12/20/17 09:31 Dose: 0.5 mg Tamsulosin HCl (Flomax) 0.4 mg PO DAILY [facility] Last Admin: 12/20/17 09:31 Dose: 0.4 mg - Labs Labs: 12/18/17 11:56 12/19/17 08:41 - Constitutional Appears: Non-toxic, No Acute Distress, Confused, Chronically Ill - Head Exam Head Exam: NORMAL INSPECTION, NORMOCEPHALIC - Eye Exam Eye Exam: EOMI, Normal appearance - Neck Exam Neck Exam: Normal Inspection. absent: Tenderness - Respiratory Exam Respiratory Exam: Clear to Ausculation Bilateral, NORMAL BREATHING PATTERN - Cardiovascular Exam Cardiovascular Exam: REGULAR RHYTHM, +S1 - GI/Abdominal Exam GI & Abdominal Exam: Soft. absent: Tenderness - Neurological Exam Neurological Exam: Alert, CN II-XII Intact - Skin Skin Exam: Dry, Warm Assessment and Plan (1) CKD (chronic kidney disease) stage 4, GFR 15-29 ml/min Status: Acute (2) JOY (acute kidney injury) Status: Acute (3) Dementia Status: Acute (4) Bilateral hydronephrosis Status: Acute - Assessment and Plan (Free Text) Plan: Same fluids for now If azotemia improves then decrease IV fluids
[2017-12-20] MEDS: Ciprofloxacin 400mg/200ml D5W 400 MG/200 ML BAG IVPB SCH (16:47)
--- NOTE | 2017-12-20 18:47 | CP.PCM.PN ---
Subjective - Date & Time of Evaluation Date of Evaluation: 12/20/17 Time of Evaluation: 02:15 - Subjective Subjective: dictated Objective - Vital Signs/Intake and Output Vital Signs (last 24 hours): Temp Pulse Resp BP Pulse Ox 98.0 F 99 H 20 154/95 H 97 12/20/17 07:00 12/20/17 07:00 12/20/17 07:00 12/20/17 17:13 12/20/17 07:00 Intake and Output: 12/20/17 12/20/17 06:59 18:59 Intake Total 750 Balance 750 - Medications Medications: Current Medications Acetaminophen (Tylenol 325mg Tab) 650 mg PO Q6 PRN PRN Reason: Pain, Mild (1-3) Last Admin: 12/18/17 13:31 Dose: 650 mg Benztropine Mesylate (Cogentin) 0.5 mg PO BID [facility] Last Admin: 12/20/17 17:09 Dose: 0.5 mg Dextrose (Dextrose 50% Inj) 0 ml IV STAT PRN; Protocol PRN Reason: Hypoglycemia Protocol Last Admin: 12/06/17 06:53 Dose: 50 ml Dextrose (Glutose 15) 15 gm PO ONCE PRN; Protocol PRN Reason: Hypoglycemia Protocol Diphenhydramine HCl (Benadryl) 25 mg IVP Q8 PRN PRN Reason: Agitation Last Admin: 12/19/17 09:21 Dose: 25 mg Divalproex Sodium (Depakote Sprinkles) 125 mg PO BID [facility] Last Admin: 12/20/17 17:09 Dose: 125 mg Famotidine (Pepcid) 20 mg PO DAILY [facility] Last Admin: 12/20/17 09:31 Dose: 20 mg Glucagon (Glucagen Diagnostic Kit) 1 mg IM STAT PRN; Protocol PRN Reason: Hypoglycemia Protocol Ciprofloxacin (Cipro 400mg/200ml Dsw) 400 mg in 200 mls @ 133 mls/hr IVPB Q24H [facility] PRN Reason: Protocol Last Admin: 12/20/17 16:47 Dose: 133 mls/hr Sodium Bicarbonate 50 meq/ (Sodium Chloride) 1,000 mls @ 125 mls/hr IV .Q8H [facility] Last Admin: 12/20/17 18:35 Dose: 125 mls/hr Insulin Aspart (Novolog) 0 unit SC ACHS [facility] PRN Reason: Protocol Last Admin: 12/20/17 17:47 Dose: Not Given Insulin Glargine (Lantus) 15 unit SC HS [facility] Last Admin: 12/19/17 23:03 Dose: 15 unit Linezolid (Zyvox) 600 mg PO Q12H [facility] Last Admin: 12/20/17 18:34 Dose: 600 mg Metoprolol Tartrate (Lopressor) 25 mg PO BID [facility] Last Admin: 12/20/17 17:13 Dose: 25 mg Risperidone (Risperdal Tab) 0.5 mg PO BID [facility] Last Admin: 12/20/17 17:09 Dose: 0.5 mg Tamsulosin HCl (Flomax) 0.4 mg PO DAILY [facility] Last Admin: 12/20/17 09:31 Dose: 0.4 mg - Labs Labs: 12/18/17 11:56 12/19/17 08:41
--- NOTE | 2017-12-20 19:18 | CP.PCM.PN ---
Subjective - Date & Time of Evaluation Date of Evaluation: 12/20/17 Time of Evaluation: 09:20 - Subjective Subjective: clinically same Objective - Vital Signs/Intake and Output Vital Signs (last 24 hours): Temp Pulse Resp BP Pulse Ox 98.0 F 99 H 20 154/95 H 97 12/20/17 07:00 12/20/17 07:00 12/20/17 07:00 12/20/17 17:13 12/20/17 07:00 Intake and Output: 12/20/17 12/21/17 18:59 06:59 Intake Total 750 Balance 750 - Medications Medications: Current Medications Acetaminophen (Tylenol 325mg Tab) 650 mg PO Q6 PRN PRN Reason: Pain, Mild (1-3) Last Admin: 12/18/17 13:31 Dose: 650 mg Benztropine Mesylate (Cogentin) 0.5 mg PO BID [facility] Last Admin: 12/20/17 17:09 Dose: 0.5 mg Dextrose (Dextrose 50% Inj) 0 ml IV STAT PRN; Protocol PRN Reason: Hypoglycemia Protocol Last Admin: 12/06/17 06:53 Dose: 50 ml Dextrose (Glutose 15) 15 gm PO ONCE PRN; Protocol PRN Reason: Hypoglycemia Protocol Diphenhydramine HCl (Benadryl) 25 mg IVP Q8 PRN PRN Reason: Agitation Last Admin: 12/19/17 09:21 Dose: 25 mg Divalproex Sodium (Depakote Sprinkles) 125 mg PO BID [facility] Last Admin: 12/20/17 17:09 Dose: 125 mg Famotidine (Pepcid) 20 mg PO DAILY [facility] Last Admin: 12/20/17 09:31 Dose: 20 mg Glucagon (Glucagen Diagnostic Kit) 1 mg IM STAT PRN; Protocol PRN Reason: Hypoglycemia Protocol Sodium Bicarbonate 50 meq/ (Sodium Chloride) 1,000 mls @ 125 mls/hr IV .Q8H [facility] Last Admin: 12/20/17 18:35 Dose: 125 mls/hr Insulin Aspart (Novolog) 0 unit SC ACHS [facility] PRN Reason: Protocol Last Admin: 12/20/17 17:47 Dose: Not Given Insulin Glargine (Lantus) 15 unit SC HS [facility] Last Admin: 12/19/17 23:03 Dose: 15 unit Linezolid (Zyvox) 600 mg PO Q12H [facility] Last Admin: 12/20/17 18:34 Dose: 600 mg Metoprolol Tartrate (Lopressor) 25 mg PO BID [facility] Last Admin: 12/20/17 17:13 Dose: 25 mg Risperidone (Risperdal Tab) 0.5 mg PO BID [facility] Last Admin: 12/20/17 17:09 Dose: 0.5 mg Tamsulosin HCl (Flomax) 0.4 mg PO DAILY [facility] Last Admin: 12/20/17 09:31 Dose: 0.4 mg - Labs Labs: 12/18/17 11:56 12/19/17 08:41 - Constitutional Appears: Well - Head Exam Head Exam: ATRAUMATIC, NORMAL INSPECTION, NORMOCEPHALIC - Eye Exam Eye Exam: EOMI, Normal appearance, PERRL Pupil Exam: NORMAL ACCOMODATION, PERRL - ENT Exam ENT Exam: Mucous Membranes Moist, Normal Exam - Neck Exam Neck Exam: Full ROM, Normal Inspection. absent: Lymphadenopathy - Respiratory Exam Respiratory Exam: Decreased Breath Sounds - Cardiovascular Exam Cardiovascular Exam: REGULAR RHYTHM, +S1, +S2 - GI/Abdominal Exam GI & Abdominal Exam: Soft, Diminished Bowel Sounds - Rectal Exam Rectal Exam: Deferred
[2017-12-20] MEDS: (Lantus) Insulin Glargine, Recombinant SC SCH (22:23)
--- NOTE | 2017-12-21 01:12 | PN ---
Copied To: Teresa Barnett MD Attending MD: Teresa Barnett MD DATE: 12/20/2017 SUBJECTIVE: The patient was more alert today. He was making some sense in talking, and he said he ate well. He denied any pain anywhere. His forearm had IV site which was ballooning, so we have to switch it off but his right upper arm abscess was improving. There was a small area of induration left. PHYSICAL EXAMINATION: GENERAL: He was still on one-to-one. VITAL SIGNS: T-max is 98, pulse 99, blood pressure 141/84, respirations are 20. HEAD: Atraumatic. NECK: Supple. LUNGS: Clear. HEART: S1 and S2, regular. ABDOMEN: Soft, had a limited exam. EXTREMITIES: No edema. MEDICATIONS: He is on Cipro and Zyvox at this time. LABORATORY DATA: Cultures: Urine culture came out enterococcus faecalis, and he is on Zyvox. So we will discontinue the Cipro at this time, and will follow. The patient still has renal insufficiency and renal attending is following. The patient received Zyvox if is active but I want to see. I started it from 12/17/2017, so it is the third day of Zyvox at this time, and we will continue that and discontinue the Cipro. We will follow. The patient has urinary tract infection. His behavior is also getting a little better. He does have renal insufficiency and has psych disorder. Teresa Barnett MD
[2017-12-21] MEDS: SODIUM CHLORIDE 0.45% IV SCH (04:42)
[2017-12-21] MEDS: SODIUM BICARBONATE IV SCH (04:42)
[2017-12-21 07:53] LABS: ALBUMIN 3.5 g/dL (3.5-5.0); CALCIUM 8.7 mg/dl (8.6-10.4)
[2017-12-21] MEDS: (Novolog) Insulin Aspart, Recombinant 100 u/ml 10 ml vial SC SCH ×5 (08:27→21:15)
--- NOTE | 2017-12-21 10:14 | CP.PCM.PN ---
Subjective - Date & Time of Evaluation Date of Evaluation: 12/21/17 Time of Evaluation: 10:13 - Subjective Subjective: pt seen and examined confused per sitter- good uop incontinent labs noted Objective - Vital Signs/Intake and Output Vital Signs (last 24 hours): Temp Pulse Resp BP Pulse Ox 97.6 F 123 H 20 137/82 98 12/21/17 07:35 12/21/17 07:35 12/21/17 07:35 12/21/17 07:35 12/21/17 07:35 Intake and Output: 12/21/17 12/21/17 06:59 18:59 Intake Total 1100 Balance 1100 - Medications Medications: Current Medications Acetaminophen (Tylenol 325mg Tab) 650 mg PO Q6 PRN PRN Reason: Pain, Mild (1-3) Last Admin: 12/18/17 13:31 Dose: 650 mg Benztropine Mesylate (Cogentin) 0.5 mg PO BID [facility] Last Admin: 12/20/17 17:09 Dose: 0.5 mg Dextrose (Dextrose 50% Inj) 0 ml IV STAT PRN; Protocol PRN Reason: Hypoglycemia Protocol Last Admin: 12/06/17 06:53 Dose: 50 ml Dextrose (Glutose 15) 15 gm PO ONCE PRN; Protocol PRN Reason: Hypoglycemia Protocol Diphenhydramine HCl (Benadryl) 25 mg IVP Q8 PRN PRN Reason: Agitation Last Admin: 12/19/17 09:21 Dose: 25 mg Divalproex Sodium (Depakote Sprinkles) 125 mg PO BID [facility] Last Admin: 12/20/17 17:09 Dose: 125 mg Famotidine (Pepcid) 20 mg PO DAILY [facility] Last Admin: 12/20/17 09:31 Dose: 20 mg Glucagon (Glucagen Diagnostic Kit) 1 mg IM STAT PRN; Protocol PRN Reason: Hypoglycemia Protocol Insulin Aspart (Novolog) 0 unit SC ACHS [facility] PRN Reason: Protocol Last Admin: 12/21/17 08:27 Dose: Not Given Insulin Glargine (Lantus) 15 unit SC HS [facility] Last Admin: 12/20/17 22:23 Dose: 15 unit Linezolid (Zyvox) 600 mg PO Q12H [facility] Last Admin: 12/21/17 08:49 Dose: 600 mg Metoprolol Tartrate (Lopressor) 25 mg PO BID [facility] Last Admin: 12/20/17 17:13 Dose: 25 mg Risperidone (Risperdal Tab) 0.5 mg PO BID [facility] Last Admin: 12/20/17 17:09 Dose: 0.5 mg Tamsulosin HCl (Flomax) 0.4 mg PO DAILY [facility] Last Admin: 12/20/17 09:31 Dose: 0.4 mg - Labs Labs: 12/18/17 11:56 12/21/17 07:22 - Constitutional Appears: Non-toxic, No Acute Distress, Chronically Ill - Head Exam Head Exam: NORMAL INSPECTION, NORMOCEPHALIC - Eye Exam Eye Exam: Normal appearance, PERRL - ENT Exam ENT Exam: Mucous Membranes Moist, Normal Exam - Neck Exam Neck Exam: Normal Inspection - Respiratory Exam Respiratory Exam: Clear to Ausculation Bilateral, NORMAL BREATHING PATTERN - Cardiovascular Exam Cardiovascular Exam: REGULAR RHYTHM, RRR - GI/Abdominal Exam GI & Abdominal Exam: Distended (colostomy), Soft - Extremities Exam Extremities Exam: Normal Inspection - Neurological Exam Neurological Exam: Awake - Skin Skin Exam: Dry, Intact Assessment and Plan (1) Metabolic acidosis Status: Acute (2) Bilateral hydronephrosis Status: Acute (3) CKD (chronic kidney disease) stage 4, GFR 15-29 ml/min Status: Acute (4) Dementia Status: Acute (5) UTI (urinary tract infection) Status: Acute - Assessment and Plan (Free Text) Assessment: improving renal function dc bicarb, lower if fluids
[2017-12-21] MEDS: Divalproex 125 mg Sprinkle Capsule PO SCH ×2 (10:51→17:40)
[2017-12-21] MEDS: Sodium Chloride 0.45% 1,000 ML IV SCH (14:32)
--- NOTE | 2017-12-21 16:00 | CP.PCM.PN ---
Subjective - Date & Time of Evaluation Date of Evaluation: 12/17/17 Time of Evaluation: 16:00 - Subjective Subjective: DISCUSSED WITH DR. Wade OSULLIVAN POSSIBLE D/C TODAY TO [facility] AT . PER DR. OSULLIVAN, PT TO BE D/C ONLY IF CLEARED BY PSYCH. DR. DAI ON THE CASE; LAST NOTE WRITTEN ON 12/09/17. I [address] SHAH OF POSSIBLE D/C BUT HE IS NOT CLEARING THE PT TODAY FOR D/C. HE WILL F/U WITH THE PT AND MAKE FURTHER RECS. DR. OSULLIVAN , SW, AND CM MADE AWARE OF HOLD IN D/C UNTIL PSYCH CLEARS. NO FURTHER ORDERS. Objective - Vital Signs/Intake and Output Vital Signs (last 24 hours): Temp Pulse Resp BP Pulse Ox 97.6 F 123 H 20 137/82 98 12/21/17 07:35 12/21/17 07:35 12/21/17 07:35 12/21/17 10:50 12/21/17 07:35 Intake and Output: 12/21/17 12/21/17 06:59 18:59 Intake Total 1100 800 Balance 1100 800 - Medications Medications: Current Medications Acetaminophen (Tylenol 325mg Tab) 650 mg PO Q6 PRN PRN Reason: Pain, Mild (1-3) Last Admin: 12/18/17 13:31 Dose: 650 mg Benztropine Mesylate (Cogentin) 0.5 mg PO BID [facility] Last Admin: 12/21/17 10:51 Dose: 0.5 mg Dextrose (Dextrose 50% Inj) 0 ml IV STAT PRN; Protocol PRN Reason: Hypoglycemia Protocol Last Admin: 12/06/17 06:53 Dose: 50 ml Dextrose (Glutose 15) 15 gm PO ONCE PRN; Protocol PRN Reason: Hypoglycemia Protocol Diphenhydramine HCl (Benadryl) 25 mg IVP Q8 PRN PRN Reason: Agitation Last Admin: 12/19/17 09:21 Dose: 25 mg Divalproex Sodium (Depakote Sprinkles) 125 mg PO BID [facility] Last Admin: 12/21/17 10:51 Dose: 125 mg Famotidine (Pepcid) 20 mg PO DAILY [facility] Last Admin: 12/21/17 10:50 Dose: 20 mg Glucagon (Glucagen Diagnostic Kit) 1 mg IM STAT PRN; Protocol PRN Reason: Hypoglycemia Protocol Sodium Chloride (Sodium Chloride 0.45%) 1,000 mls @ 60 mls/hr IV .[id number] [facility] Last Admin: 12/21/17 14:32 Dose: 60 mls/hr Insulin Aspart (Novolog) 0 unit SC [facility] PRN Reason: Protocol Last Admin: 12/21/17 12:00 Dose: Not Given Insulin Glargine (Lantus) 15 unit SC HS [facility] Last Admin: 12/20/17 22:23 Dose: 15 unit Linezolid (Zyvox) 600 mg PO Q12H [facility] Last Admin: 12/21/17 08:49 Dose: 600 mg Metoprolol Tartrate (Lopressor) 25 mg PO BID [facility] Last Admin: 12/21/17 10:50 Dose: 25 mg Risperidone (Risperdal Tab) 0.5 mg PO BID [facility] Last Admin: 12/21/17 10:51 Dose: 0.5 mg Tamsulosin HCl (Flomax) 0.4 mg PO DAILY [facility] Last Admin: 12/21/17 10:50 Dose: 0.4 mg - Labs Labs: 12/18/17 11:56 12/21/17 07:22
--- NOTE | 2017-12-21 20:37 | CP.PCM.PN ---
Subjective - Date & Time of Evaluation Date of Evaluation: 12/21/17 Time of Evaluation: 10:20 - Subjective Subjective: clinically same Objective - Vital Signs/Intake and Output Vital Signs (last 24 hours): Temp Pulse Resp BP Pulse Ox 97.6 F 65 20 117/75 100 12/21/17 15:00 12/21/17 15:00 12/21/17 15:00 12/21/17 17:42 12/21/17 15:00 Intake and Output: 12/21/17 12/22/17 18:59 06:59 Intake Total 800 Balance 800 - Medications Medications: Current Medications Acetaminophen (Tylenol 325mg Tab) 650 mg PO Q6 PRN PRN Reason: Pain, Mild (1-3) Last Admin: 12/18/17 13:31 Dose: 650 mg Benztropine Mesylate (Cogentin) 0.5 mg PO BID [facility] Last Admin: 12/21/17 17:41 Dose: 0.5 mg Dextrose (Dextrose 50% Inj) 0 ml IV STAT PRN; Protocol PRN Reason: Hypoglycemia Protocol Last Admin: 12/06/17 06:53 Dose: 50 ml Dextrose (Glutose 15) 15 gm PO ONCE PRN; Protocol PRN Reason: Hypoglycemia Protocol Diphenhydramine HCl (Benadryl) 25 mg IVP Q8 PRN PRN Reason: Agitation Last Admin: 12/19/17 09:21 Dose: 25 mg Divalproex Sodium (Depakote Sprinkles) 125 mg PO BID [facility] Last Admin: 12/21/17 17:40 Dose: 125 mg Famotidine (Pepcid) 20 mg PO DAILY [facility] Last Admin: 12/21/17 10:50 Dose: 20 mg Glucagon (Glucagen Diagnostic Kit) 1 mg IM STAT PRN; Protocol PRN Reason: Hypoglycemia Protocol Sodium Chloride (Sodium Chloride 0.45%) 1,000 mls @ 60 mls/hr IV .[id number] [facility] Last Admin: 12/21/17 14:32 Dose: 60 mls/hr Insulin Aspart (Novolog) 0 unit SC ACHS [facility] PRN Reason: Protocol Last Admin: 12/21/17 17:41 Dose: 2 unit Insulin Glargine (Lantus) 15 unit SC HS [facility] Last Admin: 12/20/17 22:23 Dose: 15 unit Linezolid (Zyvox) 600 mg PO Q12H [facility] Last Admin: 12/21/17 19:03 Dose: 600 mg Metoprolol Tartrate (Lopressor) 25 mg PO BID [facility] Last Admin: 12/21/17 17:42 Dose: 25 mg Risperidone (Risperdal Tab) 0.5 mg PO BID [facility] Last Admin: 12/21/17 17:41 Dose: 0.5 mg Tamsulosin HCl (Flomax) 0.4 mg PO DAILY [facility] Last Admin: 12/21/17 10:50 Dose: 0.4 mg - Labs Labs: 12/18/17 11:56 12/21/17 07:22 - Constitutional Appears: Well - Head Exam Head Exam: ATRAUMATIC, NORMAL INSPECTION, NORMOCEPHALIC - Eye Exam Eye Exam: EOMI, Normal appearance, PERRL Pupil Exam: NORMAL ACCOMODATION, PERRL - ENT Exam ENT Exam: Mucous Membranes Moist, Normal Exam - Neck Exam Neck Exam: Full ROM, Normal Inspection. absent: Lymphadenopathy - Respiratory Exam Respiratory Exam: Decreased Breath Sounds - Cardiovascular Exam Cardiovascular Exam: REGULAR RHYTHM, +S1, +S2 - GI/Abdominal Exam GI & Abdominal Exam: Soft, Diminished Bowel Sounds - Rectal Exam Rectal Exam: Deferred
[2017-12-21] MEDS: (Lantus) Insulin Glargine, Recombinant SC SCH (21:16)
[2017-12-22] MEDS: Sodium Chloride 0.45% 1,000 ML IV SCH ×2 (07:15→21:30)
[2017-12-22] MEDS: (Novolog) Insulin Aspart, Recombinant 100 u/ml 10 ml vial SC SCH ×4 (07:54→21:28)
[2017-12-22] MEDS: Divalproex 125 mg Sprinkle Capsule PO SCH ×2 (09:46→17:48)
--- NOTE | 2017-12-22 12:36 | CP.PCM.PN ---
Subjective - Date & Time of Evaluation Date of Evaluation: 12/22/17 Time of Evaluation: 10:40 - Subjective Subjective: clinically same Objective - Vital Signs/Intake and Output Vital Signs (last 24 hours): Temp Pulse Resp BP Pulse Ox 97.8 F 100 H 18 108/71 100 12/22/17 07:00 12/22/17 07:00 12/22/17 07:00 12/22/17 09:46 12/22/17 07:00 Intake and Output: 12/22/17 12/22/17 06:59 18:59 Intake Total 720 Output Total 550 Balance 170 - Medications Medications: Current Medications Acetaminophen (Tylenol 325mg Tab) 650 mg PO Q6 PRN PRN Reason: Pain, Mild (1-3) Last Admin: 12/18/17 13:31 Dose: 650 mg Benztropine Mesylate (Cogentin) 0.5 mg PO BID [facility] Last Admin: 12/22/17 09:50 Dose: 0.5 mg Dextrose (Dextrose 50% Inj) 0 ml IV STAT PRN; Protocol PRN Reason: Hypoglycemia Protocol Last Admin: 12/06/17 06:53 Dose: 50 ml Dextrose (Glutose 15) 15 gm PO ONCE PRN; Protocol PRN Reason: Hypoglycemia Protocol Diphenhydramine HCl (Benadryl) 25 mg IVP Q8 PRN PRN Reason: Agitation Last Admin: 12/19/17 09:21 Dose: 25 mg Divalproex Sodium (Depakote Sprinkles) 125 mg PO BID [facility] Last Admin: 12/22/17 09:46 Dose: 125 mg Famotidine (Pepcid) 20 mg PO DAILY [facility] Last Admin: 12/22/17 09:51 Dose: 20 mg Glucagon (Glucagen Diagnostic Kit) 1 mg IM STAT PRN; Protocol PRN Reason: Hypoglycemia Protocol Sodium Chloride (Sodium Chloride 0.45%) 1,000 mls @ 60 mls/hr IV .[id number] [facility] Last Admin: 12/21/17 14:32 Dose: 60 mls/hr Insulin Aspart (Novolog) 0 unit SC ACHS [facility] PRN Reason: Protocol Last Admin: 12/22/17 11:49 Dose: 3 unit Insulin Glargine (Lantus) 15 unit SC HS [facility] Last Admin: 12/21/17 21:16 Dose: Not Given Linezolid (Zyvox) 600 mg PO Q12H [facility] Last Admin: 12/22/17 06:14 Dose: 600 mg Metoprolol Tartrate (Lopressor) 25 mg PO BID [facility] Last Admin: 12/22/17 09:46 Dose: 25 mg Risperidone (Risperdal Tab) 0.5 mg PO BID [facility] Last Admin: 12/22/17 09:46 Dose: 0.5 mg Tamsulosin HCl (Flomax) 0.4 mg PO DAILY [facility] Last Admin: 12/22/17 09:46 Dose: 0.4 mg - Labs Labs: 12/18/17 11:56 12/21/17 07:22
--- NOTE | 2017-12-22 13:04 | CP.PCM.PN ---
Subjective - Date & Time of Evaluation Date of Evaluation: 12/22/17 Time of Evaluation: 13:03 - Subjective Subjective: alert, eating better JOY improved maintained on mild IV hydrationno new complaint Objective - Vital Signs/Intake and Output Vital Signs (last 24 hours): Temp Pulse Resp BP Pulse Ox 97.8 F 100 H 18 108/71 100 12/22/17 07:00 12/22/17 07:00 12/22/17 07:00 12/22/17 09:46 12/22/17 07:00 Intake and Output: 12/22/17 12/22/17 06:59 18:59 Intake Total 720 Output Total 550 Balance 170 - Medications Medications: Current Medications Acetaminophen (Tylenol 325mg Tab) 650 mg PO Q6 PRN PRN Reason: Pain, Mild (1-3) Last Admin: 12/18/17 13:31 Dose: 650 mg Benztropine Mesylate (Cogentin) 0.5 mg PO BID [facility] Last Admin: 12/22/17 09:50 Dose: 0.5 mg Dextrose (Dextrose 50% Inj) 0 ml IV STAT PRN; Protocol PRN Reason: Hypoglycemia Protocol Last Admin: 12/06/17 06:53 Dose: 50 ml Dextrose (Glutose 15) 15 gm PO ONCE PRN; Protocol PRN Reason: Hypoglycemia Protocol Diphenhydramine HCl (Benadryl) 25 mg IVP Q8 PRN PRN Reason: Agitation Last Admin: 12/19/17 09:21 Dose: 25 mg Divalproex Sodium (Depakote Sprinkles) 125 mg PO BID [facility] Last Admin: 12/22/17 09:46 Dose: 125 mg Famotidine (Pepcid) 20 mg PO DAILY [facility] Last Admin: 12/22/17 09:51 Dose: 20 mg Glucagon (Glucagen Diagnostic Kit) 1 mg IM STAT PRN; Protocol PRN Reason: Hypoglycemia Protocol Sodium Chloride (Sodium Chloride 0.45%) 1,000 mls @ 60 mls/hr IV .[id number] [facility] Last Admin: 12/21/17 14:32 Dose: 60 mls/hr Insulin Aspart (Novolog) 0 unit SC ACHS [facility] PRN Reason: Protocol Last Admin: 12/22/17 11:49 Dose: 3 unit Insulin Glargine (Lantus) 15 unit SC HS [facility] Last Admin: 12/21/17 21:16 Dose: Not Given Linezolid (Zyvox) 600 mg PO Q12H [facility] Last Admin: 12/22/17 06:14 Dose: 600 mg Metoprolol Tartrate (Lopressor) 25 mg PO BID [facility] Last Admin: 12/22/17 09:46 Dose: 25 mg Risperidone (Risperdal Tab) 0.5 mg PO BID [facility] Last Admin: 12/22/17 09:46 Dose: 0.5 mg Tamsulosin HCl (Flomax) 0.4 mg PO DAILY [facility] Last Admin: 12/22/17 09:46 Dose: 0.4 mg - Labs Labs: 12/18/17 11:56 12/21/17 07:22 - Constitutional Appears: No Acute Distress, Chronically Ill - Head Exam Head Exam: ATRAUMATIC, NORMAL INSPECTION - Eye Exam Eye Exam: EOMI, Normal appearance - Neck Exam Neck Exam: Normal Inspection. absent: Tenderness - Respiratory Exam Respiratory Exam: Clear to Ausculation Bilateral, NORMAL BREATHING PATTERN - Cardiovascular Exam Cardiovascular Exam: REGULAR RHYTHM, +S1 - GI/Abdominal Exam GI & Abdominal Exam: Soft. absent: Tenderness - Extremities Exam Extremities Exam: Normal Inspection. absent: Tenderness - Neurological Exam Neurological Exam: Awake, CN II-XII Intact - Skin Skin Exam: Dry, Warm Assessment and Plan (1) CKD (chronic kidney disease) stage 4, GFR 15-29 ml/min Status: Acute (2) JOY (acute kidney injury) Status: Acute (3) Dementia Status: Acute (4) Bilateral hydronephrosis Status: Acute - Assessment and Plan (Free Text) Plan: mild IV hydration periodically follow up chemistries
[2017-12-22] MEDS: DiphenhydrAMINE 50 mg/ml Inj IVP PRN ×2 (14:41→22:49)
--- NOTE | 2017-12-22 15:11 | CP.PCM.PN ---
Subjective - Date & Time of Evaluation Date of Evaluation: 12/22/17 Time of Evaluation: 15:00 - Subjective Subjective: [employer] NOT[employer] Patient seen today, awake, alert, calm, eating good as per nursing staff, calm today , no agitation noted, sleeping most of time d/W Dr. Granados, recommends to d/c mittens and monitor patient if pt not combative without mittens can be discharged back to [place] in am Discussed with RN Objective - Vital Signs/Intake and Output Vital Signs (last 24 hours): Temp Pulse Resp BP Pulse Ox 97.8 F 100 H 18 108/71 100 12/22/17 07:00 12/22/17 07:00 12/22/17 07:00 12/22/17 09:46 12/22/17 07:00 Intake and Output: 12/22/17 12/22/17 06:59 18:59 Intake Total 720 880 Output Total 550 100 Balance 170 780 - Medications Medications: Current Medications Acetaminophen (Tylenol 325mg Tab) 650 mg PO Q6 PRN PRN Reason: Pain, Mild (1-3) Last Admin: 12/18/17 13:31 Dose: 650 mg Benztropine Mesylate (Cogentin) 0.5 mg PO BID [facility] Last Admin: 12/22/17 09:50 Dose: 0.5 mg Dextrose (Dextrose 50% Inj) 0 ml IV STAT PRN; Protocol PRN Reason: Hypoglycemia Protocol Last Admin: 12/06/17 06:53 Dose: 50 ml Dextrose (Glutose 15) 15 gm PO ONCE PRN; Protocol PRN Reason: Hypoglycemia Protocol Diphenhydramine HCl (Benadryl) 25 mg IVP Q8 PRN PRN Reason: Agitation Last Admin: 12/22/17 14:41 Dose: 25 mg Divalproex Sodium (Depakote Sprinkles) 125 mg PO BID [facility] Last Admin: 12/22/17 09:46 Dose: 125 mg Famotidine (Pepcid) 20 mg PO DAILY [facility] Last Admin: 12/22/17 09:51 Dose: 20 mg Glucagon (Glucagen Diagnostic Kit) 1 mg IM STAT PRN; Protocol PRN Reason: Hypoglycemia Protocol Sodium Chloride (Sodium Chloride 0.45%) 1,000 mls @ 60 mls/hr IV .[id number] [facility] Last Admin: 12/22/17 07:15 Dose: 60 mls/hr Insulin Aspart (Novolog) 0 unit SC [facility] PRN Reason: Protocol Last Admin: 12/22/17 11:49 Dose: 3 unit Insulin Glargine (Lantus) 15 unit SC [facility] Last Admin: 12/21/17 21:16 Dose: Not Given Linezolid (Zyvox) 600 mg PO Q12H [facility] Last Admin: 12/22/17 06:14 Dose: 600 mg Metoprolol Tartrate (Lopressor) 25 mg PO BID [facility] Last Admin: 12/22/17 09:46 Dose: 25 mg Risperidone (Risperdal Tab) 0.5 mg PO BID [facility] Last Admin: 12/22/17 09:46 Dose: 0.5 mg Tamsulosin HCl (Flomax) 0.4 mg PO DAILY [facility] Last Admin: 12/22/17 09:46 Dose: 0.4 mg - Labs Labs: 12/18/17 11:56 12/21/17 07:22
[2017-12-22] MEDS: (Lantus) Insulin Glargine, Recombinant SC SCH (21:30)
--- NOTE | 2017-12-22 22:33 | CP.PCM.PN ---
Subjective - Date & Time of Evaluation Date of Evaluation: 12/22/17 Time of Evaluation: 14:30 - Subjective Subjective: dictated Objective - Vital Signs/Intake and Output Vital Signs (last 24 hours): Temp Pulse Resp BP Pulse Ox 97.2 F L 122 H 20 138/79 100 12/22/17 15:00 12/22/17 15:00 12/22/17 15:00 12/22/17 17:48 12/22/17 15:00 Intake and Output: 12/22/17 12/23/17 18:59 06:59 Intake Total 880 630 Output Total 100 1800 Balance 780 -1170 - Medications Medications: Current Medications Acetaminophen (Tylenol 325mg Tab) 650 mg PO Q6 PRN PRN Reason: Pain, Mild (1-3) Last Admin: 12/18/17 13:31 Dose: 650 mg Benztropine Mesylate (Cogentin) 0.5 mg PO BID [facility] Last Admin: 12/22/17 17:48 Dose: 0.5 mg Dextrose (Dextrose 50% Inj) 0 ml IV STAT PRN; Protocol PRN Reason: Hypoglycemia Protocol Last Admin: 12/06/17 06:53 Dose: 50 ml Dextrose (Glutose 15) 15 gm PO ONCE PRN; Protocol PRN Reason: Hypoglycemia Protocol Diphenhydramine HCl (Benadryl) 25 mg IVP Q8 PRN PRN Reason: Agitation Last Admin: 12/22/17 14:41 Dose: 25 mg Divalproex Sodium (Depakote Sprinkles) 125 mg PO BID [facility] Last Admin: 12/22/17 17:48 Dose: 125 mg Famotidine (Pepcid) 20 mg PO DAILY [facility] Last Admin: 12/22/17 09:51 Dose: 20 mg Glucagon (Glucagen Diagnostic Kit) 1 mg IM STAT PRN; Protocol PRN Reason: Hypoglycemia Protocol Sodium Chloride (Sodium Chloride 0.45%) 1,000 mls @ 60 mls/hr IV .[id number] [facility] Last Admin: 12/22/17 21:30 Dose: 60 mls/hr Insulin Aspart (Novolog) 0 unit SC ACHS [facility] PRN Reason: Protocol Last Admin: 12/22/17 21:28 Dose: Not Given Insulin Glargine (Lantus) 15 unit SC HS [facility] Last Admin: 12/22/17 21:30 Dose: 15 unit Linezolid (Zyvox) 600 mg PO Q12H [facility] Last Admin: 12/22/17 19:30 Dose: 600 mg Metoprolol Tartrate (Lopressor) 25 mg PO BID [facility] Last Admin: 12/22/17 17:48 Dose: 25 mg Risperidone (Risperdal Tab) 0.5 mg PO BID [facility] Last Admin: 12/22/17 17:48 Dose: 0.5 mg Tamsulosin HCl (Flomax) 0.4 mg PO DAILY [facility] Last Admin: 12/22/17 09:46 Dose: 0.4 mg - Labs Labs: 12/18/17 11:56 12/21/17 07:22
--- NOTE | 2017-12-23 04:02 | PN ---
Copied To: Teresa Barnett MD Attending MD: Teresa Barnett MD DATE: 12/22/2017 SUBJECTIVE: The patient was seen today. He was nice. He was smiling and he looked good. It was lot of personality change today. PHYSICAL EXAMINATION: VITAL SIGNS: T-max is 97.2. However, his heart rate reported here is 122. Blood pressure 138/79, respirations are 20. He still had . HEENT: Head is atraumatic. NECK: Supple. LUNGS: Clear. HEART: S1 and S2, tachy. ABDOMEN: Soft. He has a colostomy bag. EXTREMITIES: No edema. It was a limited exam, as he does not allow much. LABORATORY DATA: I would repeat his labs tomorrow if possible, so that he could be discharged as I see that there are recommendations by the psychiatrist and he did receive medications. Zyvox for the urine and I am not sure if they would be able to send another urine, but definitely he looks better except for the tachycardia. I want to see the labs tomorrow. ASSESSMENT AND PLAN: He has been agitated most of the time. Renal failure, status post colostomy and he had urinary tract infection initially with Enterobacter and now Gram-positive cocci, which is Enterococcus. He is on Cogentin, though. Teresa Barnett MD
[2017-12-23 08:06] LABS: BASO # 0.1 K/uL (0.0-0.2); BASO % 1.3 % (0.0-2.0); EOS # 0.2 K/uL (0.0-0.7); EOS % 5.1 % (0.0-4.0); HEMOGLOBIN 8.3 g/dL (12.0-18.0); LYMPH % 23.1 % (20.0-40.0); MEAN CELL VOLUME 84.5 fL (80.0-94.0); MEAN CORPUSCULAR HEMOGLOBIN 27.8 pg (27.0-31.0); MEAN PLATELET VOLUME 7.1 fL (7.2-11.7); MONO # 0.5 K/uL (0.0-0.8); MONO % 11.3 % (0.0-10.0); NEUT # 2.7 K/uL (1.8-7.0); NEUT % 59.2 % (50.0-75.0); NRBC % 0.1 % (0.0-2.0); RBC 2.96 Mil/uL (4.40-5.90); RED CELL DISTRIBUTION WIDTH 14.5 % (11.5-14.5); WHITE BLOOD COUNT 4.5 K/uL (4.8-10.8)
[2017-12-23 08:27] LABS: ALB/GLOB RATIO 1.1 (1.0-2.1); ALBUMIN 3.6 g/dL (3.5-5.0); CALCIUM 8.7 mg/dl (8.6-10.4)
[2017-12-23] MEDS: (Novolog) Insulin Aspart, Recombinant 100 u/ml 10 ml vial SC SCH ×4 (08:30→21:42)
--- NOTE | 2017-12-23 09:48 | CP.PCM.PN ---
Subjective - Date & Time of Evaluation Date of Evaluation: 12/23/17 Time of Evaluation: 09:46 - Subjective Subjective: appears same increase ostomy output remains on mild IV hydration Azotemia same lytes acceptable Objective - Vital Signs/Intake and Output Vital Signs (last 24 hours): Temp Pulse Resp BP Pulse Ox 97.2 F L 80 18 137/80 99 12/23/17 08:08 12/23/17 08:08 12/23/17 08:08 12/23/17 08:08 12/23/17 08:08 Intake and Output: 12/23/17 12/23/17 06:59 18:59 Intake Total 1110 Output Total 1800 Balance -690 - Medications Medications: Current Medications Acetaminophen (Tylenol 325mg Tab) 650 mg PO Q6 PRN PRN Reason: Pain, Mild (1-3) Last Admin: 12/18/17 13:31 Dose: 650 mg Benztropine Mesylate (Cogentin) 0.5 mg PO BID [facility] Last Admin: 12/22/17 17:48 Dose: 0.5 mg Dextrose (Dextrose 50% Inj) 0 ml IV STAT PRN; Protocol PRN Reason: Hypoglycemia Protocol Last Admin: 12/06/17 06:53 Dose: 50 ml Dextrose (Glutose 15) 15 gm PO ONCE PRN; Protocol PRN Reason: Hypoglycemia Protocol Diphenhydramine HCl (Benadryl) 25 mg IVP Q8 PRN PRN Reason: Agitation Last Admin: 12/22/17 22:49 Dose: 25 mg Divalproex Sodium (Depakote Sprinkles) 125 mg PO BID [facility] Last Admin: 12/22/17 17:48 Dose: 125 mg Famotidine (Pepcid) 20 mg PO DAILY [facility] Last Admin: 12/22/17 09:51 Dose: 20 mg Glucagon (Glucagen Diagnostic Kit) 1 mg IM STAT PRN; Protocol PRN Reason: Hypoglycemia Protocol Sodium Chloride (Sodium Chloride 0.45%) 1,000 mls @ 60 mls/hr IV .[id number] [facility] Last Admin: 12/22/17 21:30 Dose: 60 mls/hr Insulin Aspart (Novolog) 0 unit SC ACHS [facility] PRN Reason: Protocol Last Admin: 12/23/17 08:30 Dose: 2 unit Insulin Glargine (Lantus) 15 unit SC HS [facility] Last Admin: 12/22/17 21:30 Dose: 15 unit Linezolid (Zyvox) 600 mg PO Q12H [facility] Last Admin: 12/23/17 06:20 Dose: 600 mg Metoprolol Tartrate (Lopressor) 25 mg PO BID [facility] Last Admin: 12/22/17 17:48 Dose: 25 mg Risperidone (Risperdal Tab) 0.5 mg PO BID [facility] Last Admin: 12/22/17 17:48 Dose: 0.5 mg Tamsulosin HCl (Flomax) 0.4 mg PO DAILY [facility] Last Admin: 12/22/17 09:46 Dose: 0.4 mg - Labs Labs: 12/23/17 07:48 12/23/17 07:48 - Constitutional Appears: No Acute Distress, Confused - Head Exam Head Exam: NORMAL INSPECTION, NORMOCEPHALIC - Eye Exam Eye Exam: EOMI, Normal appearance - Neck Exam Neck Exam: Normal Inspection. absent: Tenderness - Respiratory Exam Respiratory Exam: Clear to Ausculation Bilateral, NORMAL BREATHING PATTERN - Cardiovascular Exam Cardiovascular Exam: REGULAR RHYTHM, +S1 - GI/Abdominal Exam GI & Abdominal Exam: Soft. absent: Tenderness - Extremities Exam Extremities Exam: Normal Inspection. absent: Tenderness - Neurological Exam Neurological Exam: Awake, CN II-XII Intact - Skin Skin Exam: Dry, Warm Assessment and Plan (1) CKD (chronic kidney disease) stage 4, GFR 15-29 ml/min Status: Acute (2) JOY (acute kidney injury) Status: Acute (3) Dementia Status: Acute (4) Bilateral hydronephrosis Status: Acute - Assessment and Plan (Free Text) Plan: Same IV hydration Check iron stores as anemia worse
[2017-12-23] MEDS: Divalproex 125 mg Sprinkle Capsule PO SCH ×2 (10:50→18:03)
[2017-12-23 12:50] LABS: URINE BACTERIA FEW (<OCC); URINE BILIRUBIN NEGATIVE (NEGATIVE); URINE BLOOD 2+ (NEGATIVE); URINE CLARITY Hazy (Clear); URINE COLOR Yellow (YELLOW); URINE GLUCOSE (UA) NORMAL (Normal); URINE LEUKOCYTE ESTERASE 3+ Leu/uL (Negative); URINE PROTEIN 1+ mg/dL (NEGATIVE); URINE UROBILINOGEN NORMAL mg/dL (0.2-1.0)
[2017-12-23] MEDS: Sodium Chloride 0.45% 1,000 ML IV SCH (17:07)
--- NOTE | 2017-12-23 17:21 | CP.PCM.PN ---
Subjective - Date & Time of Evaluation Date of Evaluation: 12/23/17 Time of Evaluation: 08:00 - Subjective Subjective: clinically same Objective - Vital Signs/Intake and Output Vital Signs (last 24 hours): Temp Pulse Resp BP Pulse Ox 97.2 F L 61 18 125/67 99 12/23/17 08:08 12/23/17 10:50 12/23/17 08:08 12/23/17 10:50 12/23/17 08:08 Intake and Output: 12/23/17 12/23/17 06:59 18:59 Intake Total 1110 Output Total 1800 Balance -690 - Medications Medications: Current Medications Acetaminophen (Tylenol 325mg Tab) 650 mg PO Q6 PRN PRN Reason: Pain, Mild (1-3) Last Admin: 12/18/17 13:31 Dose: 650 mg Benztropine Mesylate (Cogentin) 0.5 mg PO BID [facility] Last Admin: 12/23/17 10:50 Dose: 0.5 mg Dextrose (Dextrose 50% Inj) 0 ml IV STAT PRN; Protocol PRN Reason: Hypoglycemia Protocol Last Admin: 12/06/17 06:53 Dose: 50 ml Dextrose (Glutose 15) 15 gm PO ONCE PRN; Protocol PRN Reason: Hypoglycemia Protocol Diphenhydramine HCl (Benadryl) 25 mg IVP Q8 PRN PRN Reason: Agitation Last Admin: 12/22/17 22:49 Dose: 25 mg Divalproex Sodium (Depakote Sprinkles) 125 mg PO BID [facility] Last Admin: 12/23/17 10:50 Dose: 125 mg Famotidine (Pepcid) 20 mg PO DAILY [facility] Last Admin: 12/23/17 10:50 Dose: 20 mg Glucagon (Glucagen Diagnostic Kit) 1 mg IM STAT PRN; Protocol PRN Reason: Hypoglycemia Protocol Sodium Chloride (Sodium Chloride 0.45%) 1,000 mls @ 60 mls/hr IV .[id number] [facility] Last Admin: 12/23/17 17:07 Dose: 60 mls/hr Insulin Aspart (Novolog) 0 unit SC ACHS [facility] PRN Reason: Protocol Last Admin: 12/23/17 16:25 Dose: Not Given Insulin Glargine (Lantus) 15 unit SC HS [facility] Last Admin: 12/22/17 21:30 Dose: 15 unit Linezolid (Zyvox) 600 mg PO Q12H [facility] Last Admin: 12/23/17 06:20 Dose: 600 mg Metoprolol Tartrate (Lopressor) 25 mg PO BID [facility] Last Admin: 12/23/17 10:50 Dose: 25 mg Risperidone (Risperdal Tab) 0.5 mg PO BID [facility] Last Admin: 12/23/17 10:50 Dose: 0.5 mg Tamsulosin HCl (Flomax) 0.4 mg PO DAILY [facility] Last Admin: 12/23/17 10:50 Dose: 0.4 mg - Labs Labs: 12/23/17 07:48 12/23/17 07:48 - Constitutional Appears: Well - Head Exam Head Exam: ATRAUMATIC, NORMAL INSPECTION, NORMOCEPHALIC - Eye Exam Eye Exam: EOMI, Normal appearance, PERRL Pupil Exam: NORMAL ACCOMODATION, PERRL - ENT Exam ENT Exam: Mucous Membranes Moist, Normal Exam - Neck Exam Neck Exam: Full ROM, Normal Inspection. absent: Lymphadenopathy - Respiratory Exam Respiratory Exam: Decreased Breath Sounds - Cardiovascular Exam Cardiovascular Exam: REGULAR RHYTHM, +S1, +S2 - GI/Abdominal Exam GI & Abdominal Exam: Soft, Diminished Bowel Sounds - Rectal Exam Rectal Exam: Deferred
--- NOTE | 2017-12-23 20:10 | CP.PCM.PN ---
Subjective - Date & Time of Evaluation Date of Evaluation: 12/23/17 Time of Evaluation: 16:15 - Subjective Subjective: dictated Objective - Vital Signs/Intake and Output Vital Signs (last 24 hours): Temp Pulse Resp BP Pulse Ox 97.2 F L 110 H 20 129/76 99 12/23/17 08:08 12/23/17 17:58 12/23/17 17:58 12/23/17 18:03 12/23/17 08:08 - Medications Medications: Current Medications Acetaminophen (Tylenol 325mg Tab) 650 mg PO Q6 PRN PRN Reason: Pain, Mild (1-3) Last Admin: 12/18/17 13:31 Dose: 650 mg Benztropine Mesylate (Cogentin) 0.5 mg PO BID [facility] Last Admin: 12/23/17 18:03 Dose: 0.5 mg Dextrose (Dextrose 50% Inj) 0 ml IV STAT PRN; Protocol PRN Reason: Hypoglycemia Protocol Last Admin: 12/06/17 06:53 Dose: 50 ml Dextrose (Glutose 15) 15 gm PO ONCE PRN; Protocol PRN Reason: Hypoglycemia Protocol Diphenhydramine HCl (Benadryl) 25 mg IVP Q8 PRN PRN Reason: Agitation Last Admin: 12/22/17 22:49 Dose: 25 mg Divalproex Sodium (Depakote Sprinkles) 125 mg PO BID [facility] Last Admin: 12/23/17 18:03 Dose: 125 mg Famotidine (Pepcid) 20 mg PO DAILY [facility] Last Admin: 12/23/17 10:50 Dose: 20 mg Glucagon (Glucagen Diagnostic Kit) 1 mg IM STAT PRN; Protocol PRN Reason: Hypoglycemia Protocol Sodium Chloride (Sodium Chloride 0.45%) 1,000 mls @ 60 mls/hr IV .[id number] [facility] Last Admin: 12/23/17 17:07 Dose: 60 mls/hr Insulin Aspart (Novolog) 0 unit SC ACHS [facility] PRN Reason: Protocol Last Admin: 12/23/17 16:25 Dose: Not Given Insulin Glargine (Lantus) 15 unit SC HS [facility] Last Admin: 12/22/17 21:30 Dose: 15 unit Linezolid (Zyvox) 600 mg PO Q12H [facility] Last Admin: 12/23/17 19:32 Dose: 600 mg Metoprolol Tartrate (Lopressor) 25 mg PO BID [facility] Last Admin: 12/23/17 18:03 Dose: 25 mg Risperidone (Risperdal Tab) 0.5 mg PO BID [facility] Last Admin: 12/23/17 18:03 Dose: 0.5 mg Tamsulosin HCl (Flomax) 0.4 mg PO DAILY [facility] Last Admin: 12/23/17 10:50 Dose: 0.4 mg - Labs Labs: 12/23/17 07:48 12/23/17 07:48
[2017-12-23] MEDS: (Lantus) Insulin Glargine, Recombinant SC SCH (21:43)
--- NOTE | 2017-12-24 00:38 | PN ---
Copied To: Teresa Barnett MD Attending MD: Teresa Barnett MD DATE: 12/23/2017 SUBJECTIVE: The patient was being on one-to-one. He was in a different room today, still on isolation, single room. PHYSICAL EXAMINATION: GENERAL: He was drowsy. HEENT: Head was atraumatic. NECK: Supple. LUNGS: Clear. HEART: S1, S2 are regular. ABDOMEN: Soft. He did have a [place] catheter, and the bag had urine present. EXTREMITIES: Had no edema. LABORATORY DATA: Labs are noted. Labs show white count is 4.5, hemoglobin 8.3, hematocrit 25, platelet count is 271. BUN is 27, creatinine is now 1.8. UA was also done and it shows 2+ blood, 3+ leukocytes, wbc's 519. ASSESSMENT AND PLAN: Still remains with lot of pyuria. I think, he probably has chronic obstruction, but his kidney functions are better, so he is continuing to have persistent pyuria. Remains confused and on one-to-one. We will follow urine culture report and continue Zyvox for now. He has renal failure. We will follow. Teresa Barnett MD
[2017-12-24] MEDS: Sodium Chloride 0.45% 1,000 ML IV SCH (04:45)
[2017-12-24 07:38] LABS: HEMOGLOBIN 8.3 g/dL (12.0-18.0); MEAN CELL VOLUME 84.2 fL (80.0-94.0); MEAN CORPUSCULAR HEMOGLOBIN 27.9 pg (27.0-31.0); MEAN CORPUSCULAR HGB CONC 33.1 g/dL (33.0-37.0); MEAN PLATELET VOLUME 6.8 fL (7.2-11.7); RBC 2.98 Mil/uL (4.40-5.90); RED CELL DISTRIBUTION WIDTH 14.5 % (11.5-14.5); WHITE BLOOD COUNT 4.8 K/uL (4.8-10.8)
[2017-12-24] MEDS: Divalproex 125 mg Sprinkle Capsule PO SCH ×2 (10:33→17:02)
[2017-12-24] MEDS: (Novolog) Insulin Aspart, Recombinant 100 u/ml 10 ml vial SC SCH ×4 (10:33→23:43)
--- NOTE | 2017-12-24 12:20 | CP.PCM.PN ---
Subjective - Date & Time of Evaluation Date of Evaluation: 12/24/17 Time of Evaluation: 12:18 - Subjective Subjective: alert, confused as before\ eating well no new chemistries today HTN controlled Objective - Vital Signs/Intake and Output Vital Signs (last 24 hours): Temp Pulse Resp BP Pulse Ox 97.6 F 70 20 132/78 95 12/23/17 23:15 12/23/17 23:15 12/23/17 23:15 12/24/17 10:32 12/23/17 23:15 Intake and Output: 12/24/17 12/24/17 06:59 18:59 Intake Total 720 Output Total 700 Balance 20 - Medications Medications: Current Medications Acetaminophen (Tylenol 325mg Tab) 650 mg PO Q6 PRN PRN Reason: Pain, Mild (1-3) Last Admin: 12/18/17 13:31 Dose: 650 mg Benztropine Mesylate (Cogentin) 0.5 mg PO BID [facility] Last Admin: 12/24/17 10:33 Dose: 0.5 mg Dextrose (Dextrose 50% Inj) 0 ml IV STAT PRN; Protocol PRN Reason: Hypoglycemia Protocol Last Admin: 12/06/17 06:53 Dose: 50 ml Dextrose (Glutose 15) 15 gm PO ONCE PRN; Protocol PRN Reason: Hypoglycemia Protocol Diphenhydramine HCl (Benadryl) 25 mg IVP Q8 PRN PRN Reason: Agitation Last Admin: 12/22/17 22:49 Dose: 25 mg Divalproex Sodium (Depakote Sprinkles) 125 mg PO BID [facility] Last Admin: 12/24/17 10:33 Dose: 125 mg Famotidine (Pepcid) 20 mg PO DAILY [facility] Last Admin: 12/24/17 10:32 Dose: 20 mg Glucagon (Glucagen Diagnostic Kit) 1 mg IM STAT PRN; Protocol PRN Reason: Hypoglycemia Protocol Sodium Chloride (Sodium Chloride 0.45%) 1,000 mls @ 60 mls/hr IV .[id number] [facility] Last Admin: 12/24/17 04:45 Dose: Not Given Insulin Aspart (Novolog) 0 unit SC ACHS [facility] PRN Reason: Protocol Last Admin: 12/24/17 12:05 Dose: 2 unit Insulin Glargine (Lantus) 15 unit SC HS [facility] Last Admin: 12/23/17 21:43 Dose: Not Given Linezolid (Zyvox) 600 mg PO Q12H [facility] Last Admin: 12/24/17 07:10 Dose: 600 mg Metoprolol Tartrate (Lopressor) 25 mg PO BID [facility] Last Admin: 12/24/17 10:32 Dose: 25 mg Risperidone (Risperdal Tab) 0.5 mg PO BID [facility] Last Admin: 12/24/17 10:32 Dose: 0.5 mg Tamsulosin HCl (Flomax) 0.4 mg PO DAILY [facility] Last Admin: 12/24/17 10:33 Dose: 0.4 mg - Labs Labs: 12/24/17 07:33 12/23/17 07:48 - Constitutional Appears: No Acute Distress, Chronically Ill - Head Exam Head Exam: ATRAUMATIC, NORMAL INSPECTION - Eye Exam Eye Exam: EOMI, Normal appearance - Neck Exam Neck Exam: Normal Inspection. absent: Tenderness - Respiratory Exam Respiratory Exam: Clear to Ausculation Bilateral, NORMAL BREATHING PATTERN - Cardiovascular Exam Cardiovascular Exam: REGULAR RHYTHM, +S1 - GI/Abdominal Exam GI & Abdominal Exam: Soft. absent: Tenderness - Extremities Exam Extremities Exam: Normal Inspection. absent: Tenderness - Neurological Exam Neurological Exam: Alert, CN II-XII Intact - Skin Skin Exam: Dry, Warm Assessment and Plan (1) CKD (chronic kidney disease) stage 4, GFR 15-29 ml/min Status: Acute (2) JOY (acute kidney injury) Status: Acute (3) Dementia Status: Acute (4) Bilateral hydronephrosis Status: Acute - Assessment and Plan (Free Text) Plan: recheck chemistries same mild fluid hydration
[2017-12-24] MEDS: DiphenhydrAMINE 50 mg/ml Inj IVP PRN (16:30)
--- NOTE | 2017-12-24 19:33 | CP.PCM.PN ---
Subjective - Date & Time of Evaluation Date of Evaluation: 12/24/17 Time of Evaluation: 07:45 - Subjective Subjective: clinically same Objective - Vital Signs/Intake and Output Vital Signs (last 24 hours): Temp Pulse Resp BP Pulse Ox 97.9 F 86 20 144/84 100 12/24/17 16:14 12/24/17 16:14 12/24/17 16:14 12/24/17 17:03 12/24/17 16:14 Intake and Output: 12/24/17 12/25/17 18:59 06:59 Intake Total 300 Output Total 500 Balance -200 - Medications Medications: Current Medications Acetaminophen (Tylenol 325mg Tab) 650 mg PO Q6 PRN PRN Reason: Pain, Mild (1-3) Last Admin: 12/18/17 13:31 Dose: 650 mg Benztropine Mesylate (Cogentin) 0.5 mg PO BID [facility] Last Admin: 12/24/17 17:03 Dose: 0.5 mg Dextrose (Dextrose 50% Inj) 0 ml IV STAT PRN; Protocol PRN Reason: Hypoglycemia Protocol Last Admin: 12/06/17 06:53 Dose: 50 ml Dextrose (Glutose 15) 15 gm PO ONCE PRN; Protocol PRN Reason: Hypoglycemia Protocol Diphenhydramine HCl (Benadryl) 25 mg IVP Q8 PRN PRN Reason: Agitation Last Admin: 12/24/17 16:30 Dose: 25 mg Divalproex Sodium (Depakote Sprinkles) 125 mg PO BID [facility] Last Admin: 12/24/17 17:02 Dose: 125 mg Famotidine (Pepcid) 20 mg PO DAILY [facility] Last Admin: 12/24/17 10:32 Dose: 20 mg Glucagon (Glucagen Diagnostic Kit) 1 mg IM STAT PRN; Protocol PRN Reason: Hypoglycemia Protocol Sodium Chloride (Sodium Chloride 0.45%) 1,000 mls @ 60 mls/hr IV .[id number] [facility] Last Admin: 12/24/17 04:45 Dose: Not Given Insulin Aspart (Novolog) 0 unit SC ACHS [facility] PRN Reason: Protocol Last Admin: 12/24/17 17:02 Dose: 2 unit Insulin Glargine (Lantus) 15 unit SC HS [facility] Last Admin: 12/23/17 21:43 Dose: Not Given Linezolid (Zyvox) 600 mg PO Q12H [facility] Last Admin: 12/24/17 19:14 Dose: 600 mg Metoprolol Tartrate (Lopressor) 25 mg PO BID [facility] Last Admin: 12/24/17 17:03 Dose: 25 mg Risperidone (Risperdal Tab) 0.5 mg PO BID [facility] Last Admin: 12/24/17 17:02 Dose: 0.5 mg Tamsulosin HCl (Flomax) 0.4 mg PO DAILY [facility] Last Admin: 12/24/17 10:33 Dose: 0.4 mg - Labs Labs: 12/24/17 07:33 12/23/17 07:48 - Constitutional Appears: Well - Head Exam Head Exam: ATRAUMATIC, NORMAL INSPECTION, NORMOCEPHALIC - Eye Exam Eye Exam: EOMI, Normal appearance, PERRL Pupil Exam: NORMAL ACCOMODATION, PERRL - ENT Exam ENT Exam: Mucous Membranes Moist, Normal Exam - Neck Exam Neck Exam: Full ROM, Normal Inspection. absent: Lymphadenopathy - Respiratory Exam Respiratory Exam: Decreased Breath Sounds - Cardiovascular Exam Cardiovascular Exam: REGULAR RHYTHM, +S1, +S2 - GI/Abdominal Exam GI & Abdominal Exam: Soft, Diminished Bowel Sounds - Rectal Exam Rectal Exam: Deferred
--- NOTE | 2017-12-24 22:11 | CP.PCM.PN ---
Subjective - Date & Time of Evaluation Date of Evaluation: 12/31/17 Time of Evaluation: 15:00 - Subjective Subjective: dictated Objective - Vital Signs/Intake and Output Vital Signs (last 24 hours): Temp Pulse Resp BP Pulse Ox 97.9 F 86 20 144/84 100 12/24/17 16:14 12/24/17 16:14 12/24/17 16:14 12/24/17 17:03 12/24/17 16:14 Intake and Output: 12/24/17 12/25/17 18:59 06:59 Intake Total 300 Output Total 500 Balance -200 - Medications Medications: Current Medications Acetaminophen (Tylenol 325mg Tab) 650 mg PO Q6 PRN PRN Reason: Pain, Mild (1-3) Last Admin: 12/18/17 13:31 Dose: 650 mg Benztropine Mesylate (Cogentin) 0.5 mg PO BID [facility] Last Admin: 12/24/17 17:03 Dose: 0.5 mg Dextrose (Dextrose 50% Inj) 0 ml IV STAT PRN; Protocol PRN Reason: Hypoglycemia Protocol Last Admin: 12/06/17 06:53 Dose: 50 ml Dextrose (Glutose 15) 15 gm PO ONCE PRN; Protocol PRN Reason: Hypoglycemia Protocol Diphenhydramine HCl (Benadryl) 25 mg IVP Q8 PRN PRN Reason: Agitation Last Admin: 12/24/17 16:30 Dose: 25 mg Divalproex Sodium (Depakote Sprinkles) 125 mg PO BID [facility] Last Admin: 12/24/17 17:02 Dose: 125 mg Famotidine (Pepcid) 20 mg PO DAILY [facility] Last Admin: 12/24/17 10:32 Dose: 20 mg Glucagon (Glucagen Diagnostic Kit) 1 mg IM STAT PRN; Protocol PRN Reason: Hypoglycemia Protocol Insulin Aspart (Novolog) 0 unit SC ACHS [facility] PRN Reason: Protocol Last Admin: 12/24/17 17:02 Dose: 2 unit Insulin Glargine (Lantus) 15 unit SC HS [facility] Last Admin: 12/23/17 21:43 Dose: Not Given Metoprolol Tartrate (Lopressor) 25 mg PO BID [facility] Last Admin: 12/24/17 17:03 Dose: 25 mg Risperidone (Risperdal Tab) 0.5 mg PO BID [facility] Last Admin: 12/24/17 17:02 Dose: 0.5 mg Tamsulosin HCl (Flomax) 0.4 mg PO DAILY [facility] Last Admin: 12/24/17 10:33 Dose: 0.4 mg - Labs Labs: 12/24/17 07:33 12/23/17 07:48
[2017-12-24] MEDS: (Lantus) Insulin Glargine, Recombinant SC SCH (23:42)
--- NOTE | 2017-12-25 01:22 | PN ---
Copied To: Teresa Barnett MD Attending MD: Teresa Barnett MD DATE: 12/24/2017 SUBJECTIVE: The patient remains awake. He was agitated. He was cursing the nurse, and his mental status still remains lousy. PHYSICAL EXAMINATION: VITAL SIGNS: T-max is 97.9, pulse 86, blood pressure 145/86, respirations are 20. GENERAL: He does not follow whatever we tell him to do. HEENT: Head is atraumatic. NECK: Supple. LUNGS: Mostly clear. HEART: S1 and S2 are regular. ABDOMEN: Soft and nontender. Has a colostomy bag. EXTREMITIES: Have no edema. LABORATORY DATA: His urine culture came out negative now, and I am going to discontinue the Zyvox. White count is 4.8, hemoglobin 8.3, hematocrit 25.1, and platelet count is 282. ASSESSMENT AND PLAN: The patient received Zyvox for Enterococcus faecalis in the urine and is afebrile and stable at this time and will be off antibiotics. The patient has urinary tract infection. He has renal failure. He has psychiatric issues with agitation. He is status post colostomy. Teresa Barnett MD
[2017-12-25] MEDS: (Novolog) Insulin Aspart, Recombinant 100 u/ml 10 ml vial SC SCH ×4 (08:12→21:54)
[2017-12-25] MEDS: Divalproex 125 mg Sprinkle Capsule PO SCH ×2 (09:42→17:45)
--- NOTE | 2017-12-25 11:11 | CP.PCM.PN ---
Subjective - Date & Time of Evaluation Date of Evaluation: 12/25/17 Time of Evaluation: 11:15 - Subjective Subjective: bp stable afebrile no new chems awake comfortable not answering questions or following commands ate reakfast according to aide ROS not obtainable.not answering questions Objective - Vital Signs/Intake and Output Vital Signs (last 24 hours): Temp Pulse Resp BP Pulse Ox 97.6 F 120 H 22 122/74 98 12/25/17 08:40 12/25/17 08:40 12/25/17 08:40 12/25/17 09:42 12/25/17 08:40 Intake and Output: 12/25/17 12/25/17 06:59 18:59 Intake Total 120 240 Output Total 400 Balance 120 -160 - Medications Medications: Current Medications Acetaminophen (Tylenol 325mg Tab) 650 mg PO Q6 PRN PRN Reason: Pain, Mild (1-3) Last Admin: 12/18/17 13:31 Dose: 650 mg Benztropine Mesylate (Cogentin) 0.5 mg PO BID [facility] Last Admin: 12/25/17 09:42 Dose: 0.5 mg Dextrose (Dextrose 50% Inj) 0 ml IV STAT PRN; Protocol PRN Reason: Hypoglycemia Protocol Last Admin: 12/06/17 06:53 Dose: 50 ml Dextrose (Glutose 15) 15 gm PO ONCE PRN; Protocol PRN Reason: Hypoglycemia Protocol Diphenhydramine HCl (Benadryl) 25 mg IVP Q8 PRN PRN Reason: Agitation Last Admin: 12/24/17 16:30 Dose: 25 mg Divalproex Sodium (Depakote Sprinkles) 125 mg PO BID [facility] Last Admin: 12/25/17 09:42 Dose: 125 mg Famotidine (Pepcid) 20 mg PO DAILY [facility] Last Admin: 12/25/17 09:42 Dose: 20 mg Glucagon (Glucagen Diagnostic Kit) 1 mg IM STAT PRN; Protocol PRN Reason: Hypoglycemia Protocol Insulin Aspart (Novolog) 0 unit SC ACHS [facility] PRN Reason: Protocol Last Admin: 12/25/17 08:12 Dose: Not Given Insulin Glargine (Lantus) 15 unit SC HS [facility] Last Admin: 12/24/17 23:42 Dose: Not Given Metoprolol Tartrate (Lopressor) 25 mg PO BID [facility] Last Admin: 12/25/17 09:42 Dose: 25 mg Risperidone (Risperdal Tab) 0.5 mg PO BID [facility] Last Admin: 12/25/17 09:42 Dose: 0.5 mg Tamsulosin HCl (Flomax) 0.4 mg PO DAILY [facility] Last Admin: 12/25/17 09:42 Dose: 0.4 mg - Labs Labs: 12/24/17 07:33 12/23/17 07:48 - Constitutional Appears: No Acute Distress - Eye Exam Eye Exam: Normal appearance - Respiratory Exam Respiratory Exam: Clear to Ausculation Bilateral - Cardiovascular Exam Cardiovascular Exam: REGULAR RHYTHM - GI/Abdominal Exam GI & Abdominal Exam: Soft. absent: Distended, Tenderness Additional comments: colostomy in place - Extremities Exam Extremities Exam: absent: Calf Tenderness - Back Exam Back Exam: absent: CVA tenderness (L) Assessment and Plan (1) JOY (acute kidney injury) Status: Acute (2) CKD (chronic kidney disease) stage 4, GFR 15-29 ml/min Status: Acute (3) Dementia Status: Acute - Assessment and Plan (Free Text) Plan: reorder chems continue supportive care
[2017-12-25 11:59] LABS: ALB/GLOB RATIO 1.1 (1.0-2.1); ALBUMIN 3.7 g/dL (3.5-5.0); CALCIUM 9.1 mg/dl (8.6-10.4)
--- NOTE | 2017-12-25 15:29 | CP.PCM.PN ---
Subjective - Date & Time of Evaluation Date of Evaluation: 12/25/17 Time of Evaluation: 07:00 - Subjective Subjective: clinically same Objective - Vital Signs/Intake and Output Vital Signs (last 24 hours): Temp Pulse Resp BP Pulse Ox 97.6 F 120 H 22 122/74 98 12/25/17 08:40 12/25/17 08:40 12/25/17 08:40 12/25/17 09:42 12/25/17 08:40 Intake and Output: 12/25/17 12/25/17 06:59 18:59 Intake Total 120 240 Output Total 400 Balance 120 -160 - Medications Medications: Current Medications Acetaminophen (Tylenol 325mg Tab) 650 mg PO Q6 PRN PRN Reason: Pain, Mild (1-3) Last Admin: 12/18/17 13:31 Dose: 650 mg Benztropine Mesylate (Cogentin) 0.5 mg PO BID [facility] Last Admin: 12/25/17 09:42 Dose: 0.5 mg Dextrose (Dextrose 50% Inj) 0 ml IV STAT PRN; Protocol PRN Reason: Hypoglycemia Protocol Last Admin: 12/06/17 06:53 Dose: 50 ml Dextrose (Glutose 15) 15 gm PO ONCE PRN; Protocol PRN Reason: Hypoglycemia Protocol Diphenhydramine HCl (Benadryl) 25 mg IVP Q8 PRN PRN Reason: Agitation Last Admin: 12/24/17 16:30 Dose: 25 mg Divalproex Sodium (Depakote Sprinkles) 125 mg PO BID [facility] Last Admin: 12/25/17 09:42 Dose: 125 mg Famotidine (Pepcid) 20 mg PO DAILY [facility] Last Admin: 12/25/17 09:42 Dose: 20 mg Glucagon (Glucagen Diagnostic Kit) 1 mg IM STAT PRN; Protocol PRN Reason: Hypoglycemia Protocol Insulin Aspart (Novolog) 0 unit SC ACHS [facility] PRN Reason: Protocol Last Admin: 12/25/17 12:58 Dose: 2 unit Insulin Glargine (Lantus) 15 unit SC HS [facility] Last Admin: 12/24/17 23:42 Dose: Not Given Metoprolol Tartrate (Lopressor) 25 mg PO BID [facility] Last Admin: 12/25/17 09:42 Dose: 25 mg Risperidone (Risperdal Tab) 0.5 mg PO BID [facility] Last Admin: 12/25/17 09:42 Dose: 0.5 mg Tamsulosin HCl (Flomax) 0.4 mg PO DAILY [facility] Last Admin: 12/25/17 09:42 Dose: 0.4 mg - Labs Labs: 12/24/17 07:33 12/25/17 11:30 - Constitutional Appears: Well - Head Exam Head Exam: ATRAUMATIC, NORMAL INSPECTION, NORMOCEPHALIC - Eye Exam Eye Exam: EOMI, Normal appearance, PERRL Pupil Exam: NORMAL ACCOMODATION, PERRL - ENT Exam ENT Exam: Mucous Membranes Moist, Normal Exam - Neck Exam Neck Exam: Full ROM, Normal Inspection. absent: Lymphadenopathy - Respiratory Exam Respiratory Exam: Decreased Breath Sounds - Cardiovascular Exam Cardiovascular Exam: REGULAR RHYTHM, +S1, +S2 - GI/Abdominal Exam GI & Abdominal Exam: Soft, Diminished Bowel Sounds - Rectal Exam Rectal Exam: Deferred
[2017-12-25] MEDS: (Lantus) Insulin Glargine, Recombinant SC SCH (21:51)
[2017-12-26 01:07] VITALS: RESP 20
[2017-12-26] MEDS: (Novolog) Insulin Aspart, Recombinant 100 u/ml 10 ml vial SC SCH ×4 (07:57→22:13)
[2017-12-26] MEDS: Divalproex 125 mg Sprinkle Capsule PO SCH ×2 (09:36→17:14)
--- NOTE | 2017-12-26 12:50 | CP.PCM.PN ---
Subjective - Date & Time of Evaluation Date of Evaluation: 12/26/17 Time of Evaluation: 07:00 - Subjective Subjective: clinically same Objective - Vital Signs/Intake and Output Vital Signs (last 24 hours): Temp Pulse Resp BP Pulse Ox 97.9 F 76 20 131/84 98 12/26/17 07:00 12/26/17 07:00 12/26/17 07:00 12/26/17 09:35 12/26/17 07:00 Intake and Output: 12/26/17 12/26/17 06:59 18:59 Intake Total 200 220 Output Total 300 Balance 200 -80 - Medications Medications: Current Medications Acetaminophen (Tylenol 325mg Tab) 650 mg PO Q6 PRN PRN Reason: Pain, Mild (1-3) Last Admin: 12/18/17 13:31 Dose: 650 mg Benztropine Mesylate (Cogentin) 0.5 mg PO BID [facility] Last Admin: 12/26/17 09:36 Dose: 0.5 mg Dextrose (Dextrose 50% Inj) 0 ml IV STAT PRN; Protocol PRN Reason: Hypoglycemia Protocol Last Admin: 12/06/17 06:53 Dose: 50 ml Dextrose (Glutose 15) 15 gm PO ONCE PRN; Protocol PRN Reason: Hypoglycemia Protocol Diphenhydramine HCl (Benadryl) 25 mg IVP Q8 PRN PRN Reason: Agitation Last Admin: 12/24/17 16:30 Dose: 25 mg Divalproex Sodium (Depakote Sprinkles) 125 mg PO BID [facility] Last Admin: 12/26/17 09:36 Dose: 125 mg Famotidine (Pepcid) 20 mg PO DAILY [facility] Last Admin: 12/26/17 09:36 Dose: 20 mg Glucagon (Glucagen Diagnostic Kit) 1 mg IM STAT PRN; Protocol PRN Reason: Hypoglycemia Protocol Insulin Aspart (Novolog) 0 unit SC ACHS [facility] PRN Reason: Protocol Last Admin: 12/26/17 12:05 Dose: 2 unit Insulin Glargine (Lantus) 15 unit SC HS [facility] Last Admin: 12/25/17 21:51 Dose: 15 unit Metoprolol Tartrate (Lopressor) 25 mg PO BID [facility] Last Admin: 12/26/17 09:35 Dose: 25 mg Risperidone (Risperdal Tab) 0.5 mg PO BID [facility] Last Admin: 12/26/17 09:37 Dose: 0.5 mg Tamsulosin HCl (Flomax) 0.4 mg PO DAILY [facility] Last Admin: 12/26/17 09:35 Dose: 0.4 mg - Labs Labs: 12/24/17 07:33 12/25/17 11:30 - Constitutional Appears: Well - Head Exam Head Exam: ATRAUMATIC, NORMAL INSPECTION, NORMOCEPHALIC - Eye Exam Eye Exam: EOMI, Normal appearance, PERRL Pupil Exam: NORMAL ACCOMODATION, PERRL - ENT Exam ENT Exam: Mucous Membranes Moist, Normal Exam - Neck Exam Neck Exam: Full ROM, Normal Inspection. absent: Lymphadenopathy - Respiratory Exam Respiratory Exam: Decreased Breath Sounds - Cardiovascular Exam Cardiovascular Exam: REGULAR RHYTHM, +S1, +S2 - GI/Abdominal Exam GI & Abdominal Exam: Soft, Diminished Bowel Sounds - Rectal Exam Rectal Exam: Deferred
[2017-12-26] MEDS: (Lantus) Insulin Glargine, Recombinant SC SCH (22:13)
[2017-12-27] MEDS: (Novolog) Insulin Aspart, Recombinant 100 u/ml 10 ml vial SC SCH ×4 (07:30→21:35)
[2017-12-27] MEDS: Divalproex 125 mg Sprinkle Capsule PO SCH ×2 (11:00→17:36)
--- NOTE | 2017-12-27 12:13 | CP.PCM.PN ---
Subjective - Date & Time of Evaluation Date of Evaluation: 12/27/17 Time of Evaluation: 12:11 - Subjective Subjective: Remains confused, cannot answer questions No dyspnea, n, v, fevers, diarrhea Eats ok as per aide creat stable at 1.9 BP controlled Objective - Vital Signs/Intake and Output Vital Signs (last 24 hours): Temp Pulse Resp BP Pulse Ox 98.2 F 113 H 20 125/84 98 12/27/17 07:05 12/27/17 07:05 12/27/17 07:05 12/27/17 11:00 12/27/17 07:05 Intake and Output: 12/27/17 12/27/17 06:59 18:59 Intake Total 300 Output Total 400 Balance -100 - Medications Medications: Current Medications Acetaminophen (Tylenol 325mg Tab) 650 mg PO Q6 PRN PRN Reason: Pain, Mild (1-3) Last Admin: 12/18/17 13:31 Dose: 650 mg Benztropine Mesylate (Cogentin) 0.5 mg PO BID [facility] Last Admin: 12/27/17 11:00 Dose: 0.5 mg Dextrose (Dextrose 50% Inj) 0 ml IV STAT PRN; Protocol PRN Reason: Hypoglycemia Protocol Last Admin: 12/06/17 06:53 Dose: 50 ml Dextrose (Glutose 15) 15 gm PO ONCE PRN; Protocol PRN Reason: Hypoglycemia Protocol Diphenhydramine HCl (Benadryl) 25 mg IVP Q8 PRN PRN Reason: Agitation Last Admin: 12/24/17 16:30 Dose: 25 mg Divalproex Sodium (Depakote Sprinkles) 125 mg PO BID [facility] Last Admin: 12/27/17 11:00 Dose: 125 mg Famotidine (Pepcid) 20 mg PO DAILY [facility] Last Admin: 12/27/17 11:00 Dose: 20 mg Glucagon (Glucagen Diagnostic Kit) 1 mg IM STAT PRN; Protocol PRN Reason: Hypoglycemia Protocol Insulin Aspart (Novolog) [address] [facility] PRN Reason: Protocol Last Admin: 12/27/17 07:30 Dose: Not Given Insulin Glargine (Lantus) 15 unit SC HS [facility] Last Admin: 12/26/17 22:13 Dose: 15 unit Metoprolol Tartrate (Lopressor) 25 mg PO BID [facility] Last Admin: 12/27/17 11:00 Dose: 25 mg Risperidone (Risperdal Tab) 0.5 mg PO BID [facility] Last Admin: 12/27/17 11:00 Dose: 0.5 mg Tamsulosin HCl (Flomax) 0.4 mg PO DAILY [facility] Last Admin: 12/27/17 11:00 Dose: 0.4 mg - Labs Labs: 12/24/17 07:33 12/25/17 11:30 - Constitutional Appears: No Acute Distress, Chronically Ill - Head Exam Head Exam: ATRAUMATIC, NORMAL INSPECTION - Eye Exam Eye Exam: EOMI, Normal appearance - Neck Exam Neck Exam: Normal Inspection. absent: Tenderness - Respiratory Exam Respiratory Exam: Clear to Ausculation Bilateral, NORMAL BREATHING PATTERN - Cardiovascular Exam Cardiovascular Exam: REGULAR RHYTHM, +S1 - GI/Abdominal Exam GI & Abdominal Exam: Soft. absent: Tenderness - Extremities Exam Extremities Exam: Normal Inspection. absent: Tenderness - Neurological Exam Neurological Exam: Altered - Skin Skin Exam: Dry, Warm Assessment and Plan (1) CKD (chronic kidney disease) stage 4, GFR 15-29 ml/min Status: Acute (2) JOY (acute kidney injury) Status: Acute (3) Dementia Status: Acute (4) Bilateral hydronephrosis Status: Acute - Assessment and Plan (Free Text) Plan: Continue to monitor BP and renal function, lytes
--- NOTE | 2017-12-27 13:06 | PCM.PYCHPN ---
Psychiatric Progress Note - Psychiatric Progress Note Patient seen today, length of contact: 16 min Patient Chief Complaint: yeni Problems Identified/Issues Discussed: Patient seen and evaluated, chart reviewed and discussed with the nurse. Pt was seen with the help of a orchestra conductor. Pt remained disorganized and at times internally preoccupied, imitable and agitated. He appeared delusional and paranoid. He is wearing soft gloves. Patient is compliant with medications and denies any side effects. Symptoms are improving but pt needs more time to stabilize. Support and psychoeducation given. Medication Change: Yes (use ativan rarely) Medical Record Reviewed: Yes Mental Status Examination - Cognitive Function Orientation: Person Attention: Poor Concentration: Poor Association: Loose Fund of Knowledge: Poor - Mood Mood: Depressed - Affect Affect: Flat - Speech Speech: Slurred - Formal Thought Process Formal Thought Process: Loosening of associations - Suicidal Ideation Suicidal Ideation: No - Homicidal Ideation Homicidal Ideation: No Goal/Treatment Plan - Goal/Treatment Plan Need for Continued Stay: Other (medical treatment) Progress Toward Problem(s) and Goals/Treatment Plan: -Depakote 125 mg BID -Ativan 1 mg Q 6 prn -Start Seroquel 50 mg PO qHS -D/C Cogentin 0.5 mg po BID -D/C Risperdal 0.5 mg DC Remeron -Monitor patient's mental status
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
--- NOTE | 2017-12-27 17:44 | CP.PCM.PN ---
Subjective - Date & Time of Evaluation Date of Evaluation: 12/27/17 Time of Evaluation: 07:00 - Subjective Subjective: clinically same Objective - Vital Signs/Intake and Output Vital Signs (last 24 hours): Temp Pulse Resp BP Pulse Ox 97.2 F L 122 H 20 122/76 98 12/27/17 15:39 12/27/17 15:39 12/27/17 15:39 12/27/17 17:35 12/27/17 15:39 Intake and Output: 12/27/17 12/27/17 06:59 18:59 Intake Total 300 280 Output Total 400 300 Balance -100 -20 - Medications Medications: Current Medications Acetaminophen (Tylenol 325mg Tab) 650 mg PO Q6 PRN PRN Reason: Pain, Mild (1-3) Last Admin: 12/18/17 13:31 Dose: 650 mg Dextrose (Dextrose 50% Inj) 0 ml IV STAT PRN; Protocol PRN Reason: Hypoglycemia Protocol Last Admin: 12/06/17 06:53 Dose: 50 ml Dextrose (Glutose 15) 15 gm PO ONCE PRN; Protocol PRN Reason: Hypoglycemia Protocol Diphenhydramine HCl (Benadryl) 25 mg IVP Q8 PRN PRN Reason: Agitation Last Admin: 12/24/17 16:30 Dose: 25 mg Divalproex Sodium (Depakote Sprinkles) 125 mg PO BID [facility] Last Admin: 12/27/17 17:36 Dose: 125 mg Famotidine (Pepcid) 20 mg PO DAILY [facility] Last Admin: 12/27/17 11:00 Dose: 20 mg Glucagon (Glucagen Diagnostic Kit) 1 mg IM STAT PRN; Protocol PRN Reason: Hypoglycemia Protocol Insulin Aspart (Novolog) 0 unit SC [facility] PRN Reason: Protocol Last Admin: 12/27/17 16:57 Dose: Not Given Insulin Glargine (Lantus) 15 unit SC HS [facility] Last Admin: 12/26/17 22:13 Dose: 15 unit Lorazepam (Ativan) 0.5 mg PO Q6 PRN PRN Reason: Agitation Metoprolol Tartrate (Lopressor) 25 mg PO BID [facility] Last Admin: 12/27/17 17:35 Dose: 25 mg Quetiapine Fumarate (Seroquel) 50 mg PO HS [facility] Tamsulosin HCl (Flomax) 0.4 mg PO DAILY [facility] Last Admin: 12/27/17 11:00 Dose: 0.4 mg - Labs Labs: 12/24/17 07:33 12/25/17 11:30 - Constitutional Appears: Well - Head Exam Head Exam: ATRAUMATIC, NORMAL INSPECTION, NORMOCEPHALIC - Eye Exam Eye Exam: EOMI, Normal appearance, PERRL Pupil Exam: NORMAL ACCOMODATION, PERRL - ENT Exam ENT Exam: Mucous Membranes Moist, Normal Exam - Neck Exam Neck Exam: Full ROM, Normal Inspection. absent: Lymphadenopathy - Respiratory Exam Respiratory Exam: Decreased Breath Sounds - Cardiovascular Exam Cardiovascular Exam: REGULAR RHYTHM, +S1, +S2 - GI/Abdominal Exam GI & Abdominal Exam: Soft, Diminished Bowel Sounds - Rectal Exam Rectal Exam: Deferred
[2017-12-27] MEDS: (Lantus) Insulin Glargine, Recombinant SC SCH (21:27)
[2017-12-28] MEDS: (Novolog) Insulin Aspart, Recombinant 100 u/ml 10 ml vial SC SCH ×4 (08:17→21:22)
[2017-12-28] MEDS: Divalproex 125 mg Sprinkle Capsule PO SCH ×2 (10:42→17:26)
--- NOTE | 2017-12-28 13:10 | CP.PCM.PN ---
Subjective - Date & Time of Evaluation Date of Evaluation: 12/28/17 Time of Evaluation: 13:08 - Subjective Subjective: seen and examined confused unable to provide any history afebrile, bp noted no labs today Objective - Vital Signs/Intake and Output Vital Signs (last 24 hours): Temp Pulse Resp BP Pulse Ox 98.0 F 74 20 127/77 96 12/28/17 08:28 12/28/17 08:28 12/28/17 08:28 12/28/17 10:41 12/28/17 08:28 Intake and Output: 12/28/17 12/28/17 06:59 18:59 Intake Total 180 Output Total 100 Balance 80 - Medications Medications: Current Medications Acetaminophen (Tylenol 325mg Tab) 650 mg PO Q6 PRN PRN Reason: Pain, Mild (1-3) Last Admin: 12/18/17 13:31 Dose: 650 mg Dextrose (Dextrose 50% Inj) 0 ml IV STAT PRN; Protocol PRN Reason: Hypoglycemia Protocol Last Admin: 12/06/17 06:53 Dose: 50 ml Dextrose (Glutose 15) 15 gm PO ONCE PRN; Protocol PRN Reason: Hypoglycemia Protocol Diphenhydramine HCl (Benadryl) 25 mg IVP Q8 PRN PRN Reason: Agitation Last Admin: 12/24/17 16:30 Dose: 25 mg Divalproex Sodium (Depakote Sprinkles) 125 mg PO BID [facility] Last Admin: 12/28/17 10:42 Dose: 125 mg Famotidine (Pepcid) 20 mg PO DAILY [facility] Last Admin: 12/28/17 10:42 Dose: 20 mg Glucagon (Glucagen Diagnostic Kit) 1 mg IM STAT PRN; Protocol PRN Reason: Hypoglycemia Protocol Insulin Aspart (Novolog) 0 unit SC [facility] PRN Reason: Protocol Last Admin: 12/28/17 12:00 Dose: Not Given Insulin Glargine (Lantus) 15 unit SC [facility] Last Admin: 12/27/17 21:27 Dose: 15 unit Lorazepam (Ativan) 0.5 mg PO Q6 PRN PRN Reason: Agitation Metoprolol Tartrate (Lopressor) 25 mg PO BID [facility] Last Admin: 12/28/17 10:41 Dose: 25 mg Quetiapine Fumarate (Seroquel) 50 mg PO [facility] Last Admin: 12/27/17 21:26 Dose: 50 mg Tamsulosin HCl (Flomax) 0.4 mg PO DAILY [facility] Last Admin: 12/28/17 10:42 Dose: 0.4 mg - Labs Labs: 12/24/17 07:33 12/25/17 11:30 - Constitutional Appears: Non-toxic, No Acute Distress, Chronically Ill - Head Exam Head Exam: NORMAL INSPECTION, NORMOCEPHALIC - Eye Exam Eye Exam: Normal appearance, PERRL - ENT Exam ENT Exam: Mucous Membranes Moist, Normal Exam - Neck Exam Neck Exam: Full ROM, Normal Inspection - Respiratory Exam Respiratory Exam: Clear to Ausculation Bilateral, NORMAL BREATHING PATTERN - Cardiovascular Exam Cardiovascular Exam: REGULAR RHYTHM, RRR - GI/Abdominal Exam GI & Abdominal Exam: Distended, Soft, Normal Bowel Sounds - Extremities Exam Extremities Exam: Normal Inspection - Neurological Exam Neurological Exam: Awake. absent: Alert, Oriented x3 - Skin Skin Exam: Dry, Intact Assessment and Plan (1) Metabolic acidosis Status: Acute (2) Bilateral hydronephrosis Status: Acute (3) CKD (chronic kidney disease) stage 4, GFR 15-29 ml/min Status: Acute (4) Dementia Status: Acute (5) UTI (urinary tract infection) Status: Acute - Assessment and Plan (Free Text) Assessment: labs ordered for tomorrow, follow chems bp acceptable
--- NOTE | 2017-12-28 19:08 | CP.PCM.PN ---
Subjective - Date & Time of Evaluation Date of Evaluation: 12/28/17 Time of Evaluation: 07:00 - Subjective Subjective: clinically same Objective - Vital Signs/Intake and Output Vital Signs (last 24 hours): Temp Pulse Resp BP Pulse Ox 97.3 F L 99 H 20 109/76 98 12/28/17 15:00 12/28/17 15:00 12/28/17 15:00 12/28/17 17:27 12/28/17 15:00 Intake and Output: 12/28/17 12/29/17 18:59 06:59 Intake Total 360 Output Total 50 Balance 310 - Medications Medications: Current Medications Acetaminophen (Tylenol 325mg Tab) 650 mg PO Q6 PRN PRN Reason: Pain, Mild (1-3) Last Admin: 12/18/17 13:31 Dose: 650 mg Dextrose (Dextrose 50% Inj) 0 ml IV STAT PRN; Protocol PRN Reason: Hypoglycemia Protocol Last Admin: 12/06/17 06:53 Dose: 50 ml Dextrose (Glutose 15) 15 gm PO ONCE PRN; Protocol PRN Reason: Hypoglycemia Protocol Diphenhydramine HCl (Benadryl) 25 mg IVP Q8 PRN PRN Reason: Agitation Last Admin: 12/24/17 16:30 Dose: 25 mg Divalproex Sodium (Depakote Sprinkles) 125 mg PO BID [facility] Last Admin: 12/28/17 17:26 Dose: 125 mg Famotidine (Pepcid) 20 mg PO DAILY [facility] Last Admin: 12/28/17 10:42 Dose: 20 mg Glucagon (Glucagen Diagnostic Kit) 1 mg IM STAT PRN; Protocol PRN Reason: Hypoglycemia Protocol Insulin Aspart (Novolog) 0 unit SC [facility] PRN Reason: Protocol Last Admin: 12/28/17 17:26 Dose: Not Given Insulin Glargine (Lantus) 15 unit SC HS [facility] Last Admin: 12/27/17 21:27 Dose: 15 unit Lorazepam (Ativan) 0.5 mg PO Q6 PRN PRN Reason: Agitation Metoprolol Tartrate (Lopressor) 25 mg PO BID [facility] Last Admin: 12/28/17 17:27 Dose: 25 mg Quetiapine Fumarate (Seroquel) 50 mg PO HS [facility] Last Admin: 12/27/17 21:26 Dose: 50 mg Tamsulosin HCl (Flomax) 0.4 mg PO DAILY [facility] Last Admin: 12/28/17 10:42 Dose: 0.4 mg - Labs Labs: 12/24/17 07:33 12/25/17 11:30 - Constitutional Appears: Well - Head Exam Head Exam: ATRAUMATIC, NORMAL INSPECTION, NORMOCEPHALIC - Eye Exam Eye Exam: EOMI, Normal appearance, PERRL Pupil Exam: NORMAL ACCOMODATION, PERRL - ENT Exam ENT Exam: Mucous Membranes Moist, Normal Exam - Neck Exam Neck Exam: Full ROM, Normal Inspection. absent: Lymphadenopathy - Respiratory Exam Respiratory Exam: Decreased Breath Sounds - Cardiovascular Exam Cardiovascular Exam: REGULAR RHYTHM, +S1, +S2 - GI/Abdominal Exam GI & Abdominal Exam: Soft, Diminished Bowel Sounds - Rectal Exam Rectal Exam: Deferred
[2017-12-28] MEDS: (Lantus) Insulin Glargine, Recombinant SC SCH (21:44)
[2017-12-29 07:16] LABS: BASO # 0.1 K/uL (0.0-0.2); BASO % 0.6 % (0.0-2.0); EOS # 0.2 K/uL (0.0-0.7); EOS % 1.7 % (0.0-4.0); HEMOGLOBIN 9.3 g/dL (12.0-18.0); LYMPH # 1.2 K/uL (1.0-4.3); LYMPH % 12.5 % (20.0-40.0); MEAN CELL VOLUME 83.5 fL (80.0-94.0); MEAN CORPUSCULAR HEMOGLOBIN 28.4 pg (27.0-31.0); MEAN CORPUSCULAR HGB CONC 34.1 g/dL (33.0-37.0); MEAN PLATELET VOLUME 6.8 fL (7.2-11.7); MONO # 1.6 K/uL (0.0-0.8); NEUT # 6.5 K/uL (1.8-7.0); NEUT % 68.2 % (50.0-75.0); NRBC % 0.2 % (0.0-2.0); RBC 3.27 Mil/uL (4.40-5.90); RED CELL DISTRIBUTION WIDTH 14.9 % (11.5-14.5)
[2017-12-29 07:19] LABS: WHITE BLOOD COUNT 9.6 K/uL (4.8-10.8)
[2017-12-29 07:40] LABS: ALB/GLOB RATIO 1.2 (1.0-2.1); ALBUMIN 4.2 g/dL (3.5-5.0); CALCIUM 9.3 mg/dl (8.6-10.4)
[2017-12-29] MEDS: (Novolog) Insulin Aspart, Recombinant 100 u/ml 10 ml vial SC SCH ×4 (08:26→21:31)
[2017-12-29] MEDS: Divalproex 125 mg Sprinkle Capsule PO SCH ×2 (10:51→17:47)
--- NOTE | 2017-12-29 13:09 | CP.PCM.PN ---
Subjective - Date & Time of Evaluation Date of Evaluation: 12/29/17 Time of Evaluation: 13:06 - Subjective Subjective: on respirator via trach wearing mittens on hands on 1:1 labs noted s/p HD yesterday unable to obtain ROS Objective - Vital Signs/Intake and Output Vital Signs (last 24 hours): Temp Pulse Resp BP Pulse Ox 98.7 F 110 H 20 111/70 96 12/29/17 07:00 12/29/17 07:00 12/29/17 07:00 12/29/17 10:52 12/29/17 07:00 Intake and Output: 12/29/17 12/29/17 06:59 18:59 Intake Total 150 Output Total 100 Balance 50 - Medications Medications: Current Medications Acetaminophen (Tylenol 325mg Tab) 650 mg PO Q6 PRN PRN Reason: Pain, Mild (1-3) Last Admin: 12/18/17 13:31 Dose: 650 mg Dextrose (Dextrose 50% Inj) 0 ml IV STAT PRN; Protocol PRN Reason: Hypoglycemia Protocol Last Admin: 12/06/17 06:53 Dose: 50 ml Dextrose (Glutose 15) 15 gm PO ONCE PRN; Protocol PRN Reason: Hypoglycemia Protocol Diphenhydramine HCl (Benadryl) 25 mg IVP Q8 PRN PRN Reason: Agitation Last Admin: 12/24/17 16:30 Dose: 25 mg Divalproex Sodium (Depakote Sprinkles) 125 mg PO BID [facility] Last Admin: 12/29/17 10:51 Dose: 125 mg Famotidine (Pepcid) 20 mg PO DAILY [facility] Last Admin: 12/29/17 10:51 Dose: 20 mg Glucagon (Glucagen Diagnostic Kit) 1 mg IM STAT PRN; Protocol PRN Reason: Hypoglycemia Protocol Insulin Aspart (Novolog) 0 unit SC [facility] PRN Reason: Protocol Last Admin: 12/29/17 12:23 Dose: 2 unit Insulin Glargine (Lantus) 15 unit SC [facility] Last Admin: 12/28/17 21:44 Dose: Not Given Lorazepam (Ativan) 0.5 mg PO Q6 PRN PRN Reason: Agitation Metoprolol Tartrate (Lopressor) 25 mg PO BID [facility] Last Admin: 12/29/17 10:52 Dose: 25 mg Quetiapine Fumarate (Seroquel) 50 mg PO HS [facility] Last Admin: 12/28/17 21:22 Dose: 50 mg Tamsulosin HCl (Flomax) 0.4 mg PO DAILY [facility] Last Admin: 12/29/17 10:51 Dose: 0.4 mg - Labs Labs: 12/29/17 07:11 12/29/17 07:11 - Constitutional Appears: Confused, Chronically Ill - Head Exam Head Exam: ATRAUMATIC - Neck Exam Additional comments: trach + - Respiratory Exam Respiratory Exam: Decreased Breath Sounds. absent: Accessory Muscle Use - GI/Abdominal Exam GI & Abdominal Exam: Soft, Normal Bowel Sounds. absent: Tenderness - Neurological Exam Neurological Exam: Awake. absent: Oriented x3 Assessment and Plan - Assessment and Plan (Free Text) Plan: vent dependent creatinine quite low hold on HD for now establish dialysis requirements HD unit made aware to hold
--- NOTE | 2017-12-29 17:27 | CP.PCM.PN ---
Subjective - Date & Time of Evaluation Date of Evaluation: 12/29/17 Time of Evaluation: 07:00 - Subjective Subjective: clinically same Objective - Vital Signs/Intake and Output Vital Signs (last 24 hours): Temp Pulse Resp BP Pulse Ox 98.6 F 128 H 20 137/76 97 12/29/17 16:00 12/29/17 16:00 12/29/17 16:00 12/29/17 16:00 12/29/17 16:00 Intake and Output: 12/29/17 12/29/17 06:59 18:59 Intake Total 150 360 Output Total 100 250 Balance 50 110 - Medications Medications: Current Medications Acetaminophen (Tylenol 325mg Tab) 650 mg PO Q6 PRN PRN Reason: Pain, Mild (1-3) Last Admin: 12/18/17 13:31 Dose: 650 mg Dextrose (Dextrose 50% Inj) 0 ml IV STAT PRN; Protocol PRN Reason: Hypoglycemia Protocol Last Admin: 12/06/17 06:53 Dose: 50 ml Dextrose (Glutose 15) 15 gm PO ONCE PRN; Protocol PRN Reason: Hypoglycemia Protocol Diphenhydramine HCl (Benadryl) 25 mg IVP Q8 PRN PRN Reason: Agitation Last Admin: 12/24/17 16:30 Dose: 25 mg Divalproex Sodium (Depakote Sprinkles) 125 mg PO BID [facility] Last Admin: 12/29/17 10:51 Dose: 125 mg Famotidine (Pepcid) 20 mg PO DAILY [facility] Last Admin: 12/29/17 10:51 Dose: 20 mg Glucagon (Glucagen Diagnostic Kit) 1 mg IM STAT PRN; Protocol PRN Reason: Hypoglycemia Protocol Insulin Aspart (Novolog) 0 unit SC [facility] PRN Reason: Protocol Last Admin: 12/29/17 12:23 Dose: 2 unit Insulin Glargine (Lantus) 15 unit SC HS [facility] Last Admin: 12/28/17 21:44 Dose: Not Given Lorazepam (Ativan) 0.5 mg PO Q6 PRN PRN Reason: Agitation Metoprolol Tartrate (Lopressor) 25 mg PO BID [facility] Last Admin: 12/29/17 10:52 Dose: 25 mg Quetiapine Fumarate (Seroquel) 50 mg PO HS [facility] Last Admin: 12/28/17 21:22 Dose: 50 mg Tamsulosin HCl (Flomax) 0.4 mg PO DAILY [facility] Last Admin: 12/29/17 10:51 Dose: 0.4 mg - Labs Labs: 12/29/17 07:11 12/29/17 07:11 - Constitutional Appears: Well - Head Exam Head Exam: ATRAUMATIC, NORMAL INSPECTION, NORMOCEPHALIC - Eye Exam Eye Exam: EOMI, Normal appearance, PERRL Pupil Exam: NORMAL ACCOMODATION, PERRL - ENT Exam ENT Exam: Mucous Membranes Moist, Normal Exam - Neck Exam Neck Exam: Full ROM, Normal Inspection. absent: Lymphadenopathy - Respiratory Exam Respiratory Exam: Decreased Breath Sounds - Cardiovascular Exam Cardiovascular Exam: REGULAR RHYTHM, +S1, +S2 - GI/Abdominal Exam GI & Abdominal Exam: Soft, Diminished Bowel Sounds - Rectal Exam Rectal Exam: Deferred
[2017-12-29] MEDS: (Lantus) Insulin Glargine, Recombinant SC SCH (21:35)
[2017-12-30] MEDS: (Novolog) Insulin Aspart, Recombinant 100 u/ml 10 ml vial SC SCH ×4 (08:30→21:37)
[2017-12-30 08:33] LABS: BASO # 0.1 K/uL (0.0-0.2); BASO % 0.4 % (0.0-2.0); EOS % 0.3 % (0.0-4.0); HEMOGLOBIN 9.2 g/dL (12.0-18.0); LYMPH # 1.1 K/uL (1.0-4.3); LYMPH % 8.7 % (20.0-40.0); MEAN CELL VOLUME 83.7 fL (80.0-94.0); MEAN CORPUSCULAR HEMOGLOBIN 27.4 pg (27.0-31.0); MEAN CORPUSCULAR HGB CONC 32.8 g/dL (33.0-37.0); MEAN PLATELET VOLUME 7.1 fL (7.2-11.7); MONO # 1.9 K/uL (0.0-0.8); MONO % 14.7 % (0.0-10.0); NEUT # 9.7 K/uL (1.8-7.0); NEUT % 75.9 % (50.0-75.0); PLATELET COUNT 291 K/uL (130-400); RBC 3.35 Mil/uL (4.40-5.90); RED CELL DISTRIBUTION WIDTH 15.3 % (11.5-14.5); WHITE BLOOD COUNT 12.8 K/uL (4.8-10.8)
[2017-12-30 09:07] LABS: ALBUMIN 3.9 g/dL (3.5-5.0); CALCIUM 9.3 mg/dl (8.6-10.4)
--- NOTE | 2017-12-30 09:19 | CP.PCM.PN ---
Subjective - Date & Time of Evaluation Date of Evaluation: 12/30/17 Time of Evaluation: 09:17 - Subjective Subjective: More lethargic, not eating well Creat increasing again Unable to converse Objective - Vital Signs/Intake and Output Vital Signs (last 24 hours): Temp Pulse Resp BP Pulse Ox 98.5 F 119 H 20 112/69 95 12/30/17 08:45 12/30/17 08:45 12/30/17 08:45 12/30/17 08:45 12/30/17 08:45 Intake and Output: 12/30/17 12/30/17 06:59 18:59 Intake Total 250 Output Total 200 Balance 50 - Medications Medications: Current Medications Acetaminophen (Tylenol 325mg Tab) 650 mg PO Q6 PRN PRN Reason: Pain, Mild (1-3) Last Admin: 12/18/17 13:31 Dose: 650 mg Dextrose (Dextrose 50% Inj) 0 ml IV STAT PRN; Protocol PRN Reason: Hypoglycemia Protocol Last Admin: 12/06/17 06:53 Dose: 50 ml Dextrose (Glutose 15) 15 gm PO ONCE PRN; Protocol PRN Reason: Hypoglycemia Protocol Diphenhydramine HCl (Benadryl) 25 mg IVP Q8 PRN PRN Reason: Agitation Last Admin: 12/24/17 16:30 Dose: 25 mg Divalproex Sodium (Depakote Sprinkles) 125 mg PO BID [facility] Last Admin: 12/29/17 17:47 Dose: 125 mg Famotidine (Pepcid) 20 mg PO DAILY [facility] Last Admin: 12/29/17 10:51 Dose: 20 mg Glucagon (Glucagen Diagnostic Kit) 1 mg IM STAT PRN; Protocol PRN Reason: Hypoglycemia Protocol Insulin Aspart (Novolog) 0 unit SC [facility] PRN Reason: Protocol Last Admin: 12/30/17 08:30 Dose: 2 unit Insulin Glargine (Lantus) 15 unit SC [facility] Last Admin: 12/29/17 21:35 Dose: 15 unit Lorazepam (Ativan) 0.5 mg PO Q6 PRN PRN Reason: Agitation Metoprolol Tartrate (Lopressor) 25 mg PO BID [facility] Last Admin: 12/29/17 17:47 Dose: 25 mg Quetiapine Fumarate (Seroquel) 50 mg PO HS [facility] Last Admin: 12/29/17 21:35 Dose: 50 mg Tamsulosin HCl (Flomax) 0.4 mg PO DAILY [facility] Last Admin: 12/29/17 10:51 Dose: 0.4 mg - Labs Labs: 12/30/17 08:27 12/30/17 08:27 - Constitutional Appears: Confused, Cachectic, Chronically Ill - Head Exam Head Exam: ATRAUMATIC, NORMAL INSPECTION - Neck Exam Neck Exam: Normal Inspection. absent: Tenderness - Respiratory Exam Respiratory Exam: Clear to Ausculation Bilateral - Cardiovascular Exam Cardiovascular Exam: REGULAR RHYTHM, +S1 - GI/Abdominal Exam GI & Abdominal Exam: Soft. absent: Tenderness - Extremities Exam Extremities Exam: Normal Inspection. absent: Tenderness - Neurological Exam Neurological Exam: Altered - Skin Skin Exam: Dry, Warm Assessment and Plan (1) CKD (chronic kidney disease) stage 4, GFR 15-29 ml/min Status: Acute (2) JOY (acute kidney injury) Status: Acute (3) Dementia Status: Acute (4) Bilateral hydronephrosis Status: Acute - Assessment and Plan (Free Text) Plan: Resume IV fluids repeat labs
[2017-12-30] MEDS ORDERED: Sodium Chloride 0.45% 1,000 ML IV SCH (09:30)
[2017-12-30 09:31] LABS: EOSINOPHIL 1 % (0-4); LYMPHOCYTE 9 % (20-40); MONOCYTE 12 % (0-10); NEUTROPHIL 78 % (50-75); TOTAL CELLS COUNTED 100
[2017-12-30 09:32] LABS: ANISOCYTOSIS SLIGHT; HYPOCHROMIC SLIGHT; PLATELET ESTIMATE NORMAL (NORMAL); POIKILOCYTOSIS SLIGHT; TARGET CELLS SLIGHT
[2017-12-30] MEDS: Divalproex 125 mg Sprinkle Capsule PO SCH ×2 (11:00→17:19)
--- NOTE | 2017-12-30 12:20 | CP.PCM.CON ---
History of Present Illness - History of Present Illness History of Present Illness: We have been asked to see this patient by Dr. Leticia Hernandes for evaluation of tachycardia on EKG. He is not in any distress No volume overload noted No signs of pallor, cyanosis Normal cardiac auscultation No fever or chills History unobtainable from patient due to baseline AMS PMHX: PSYCH History Dementia HTN DM Anemia CKD UTI + Colsostomy Unknown cardiac history.\ Unknown social history Review of Systems - Review of Systems Systems not reviewed;Unavailable: Other (Unable to obtain hx due to AMS) Past Patient History - Past Medical History & Family History Past Medical History?: Yes - Past Social History Smoking Status: Unknown If Ever Smoked Home Situation {Lives}: Intermediate - PULMONARY Hx Respiratory Disorders: Yes - NEUROLOGICAL Hx Neurological Disorder: Yes Hx Dementia: Yes Other/Comment: AMS, Convulsions,Dementia - HEENT Hx HEENT Problems: No - RENAL Hx Chronic Kidney Disease: No - ENDOCRINE/METABOLIC Hx Diabetes Mellitus Type 2: Yes - HEMATOLOGICAL/ONCOLOGICAL Hx Blood Disorders: Yes Hx Anemia: Yes - INTEGUMENTARY Hx Dermatological Problems: No - MUSCULOSKELETAL/RHEUMATOLOGICAL Hx Falls: No - GASTROINTESTINAL Hx Gastrointestinal Disorders: No Hx Colostomy: Yes - GENITOURINARY/GYNECOLOGICAL Hx Genitourinary Disorders: No - PSYCHIATRIC Hx Psychophysiologic Disorder: No Hx Substance Use: No - SURGICAL HISTORY Hx Surgeries: No Other/Comment: unable to obtain informations - ANESTHESIA Hx Anesthesia: No Hx Anesthesia Reactions: No Meds Home Medications: Home Medication List Medication Instructions Recorded Confirmed Type Divalproex [Depakote Sprinkles] 125 mg PO BID capsule 12/30/17 Rx Insulin Aspart, Recombinant 0 unit SC ACHS unit 12/30/17 Rx [Novolog] Insulin Glargine, Recombina 15 unit SC HS unit 12/30/17 Rx [Lantus] QUEtiapine [SEROquel] 50 mg PO HS tab 12/30/17 Rx Allergies/Adverse Reactions: Allergies Allergy/AdvReac Type Severity Reaction Status Date / Time No Known Allergies Allergy Unverified 11/23/17 15:49 - Medications Medications: Current Medications Acetaminophen (Tylenol 325mg Tab) 650 mg PO Q6 PRN PRN Reason: Pain, Mild (1-3) Last Admin: 12/18/17 13:31 Dose: 650 mg Dextrose (Dextrose 50% Inj) 0 ml IV STAT PRN; Protocol PRN Reason: Hypoglycemia Protocol Last Admin: 12/06/17 06:53 Dose: 50 ml Dextrose (Glutose 15) 15 gm PO ONCE PRN; Protocol PRN Reason: Hypoglycemia Protocol Diphenhydramine HCl (Benadryl) 25 mg IVP Q8 PRN PRN Reason: Agitation Last Admin: 12/24/17 16:30 Dose: 25 mg Divalproex Sodium (Depakote Sprinkles) 125 mg PO BID [facility] Last Admin: 12/30/17 11:00 Dose: 125 mg Famotidine (Pepcid) 20 mg PO DAILY [facility] Last Admin: 12/30/17 11:00 Dose: 20 mg Glucagon (Glucagen Diagnostic Kit) 1 mg IM STAT PRN; Protocol PRN Reason: Hypoglycemia Protocol Sodium Chloride (Sodium Chloride 0.45%) 1,000 mls @ 75 mls/hr IV .[id number] [facility] Last Admin: 12/30/17 10:00 Dose: Not Given Insulin Aspart (Novolog) 0 unit SC ACHS [facility] PRN Reason: Protocol Last Admin: 12/30/17 08:30 Dose: 2 unit Insulin Glargine (Lantus) 15 unit SC HS [facility] Last Admin: 12/29/17 21:35 Dose: 15 unit Lorazepam (Ativan) 0.5 mg PO Q6 PRN PRN Reason: Agitation Metoprolol Tartrate (Lopressor) 25 mg PO BID [facility] Last Admin: 12/30/17 11:00 Dose: 25 mg Quetiapine Fumarate (Seroquel) 50 mg PO HS [facility] Last Admin: 12/29/17 21:35 Dose: 50 mg Tamsulosin HCl (Flomax) 0.4 mg PO DAILY [facility] Last Admin: 12/30/17 11:00 Dose: 0.4 mg Physical Exam - Head Exam Head Exam: ATRAUMATIC, NORMAL INSPECTION, NORMOCEPHALIC - Eye Exam Eye Exam: Normal appearance - ENT Exam ENT Exam: Mucous Membranes Moist, Normal Oropharynx - Neck Exam Neck exam: Positive for: Normal Inspection - Respiratory Exam Respiratory Exam: Clear to Auscultation Bilateral. absent: Rhonchi, Wheezes - Cardiovascular Exam Cardiovascular Exam: Tachycardia, REGULAR RHYTHM, +S1, +S2. absent: Gallop, Rubs, +S4, Systolic Murmur - GI/Abdominal Exam GI & Abdominal Exam: Soft. absent: Tenderness - Extremities Exam Extremities exam: Positive for: normal inspection. Negative for: calf tenderness, pedal edema - Neurological Exam Neurological exam: Altered - Skin Skin Exam: Normal Color, Warm Results - Vital Signs Recent Vital Signs: Last Vital Signs Temp 98.5 F 12/30/17 08:45 Pulse 119 H 12/30/17 08:45 Resp 20 12/30/17 08:45 BP 112/69 12/30/17 11:00 Pulse Ox 95 12/30/17 08:45 - Labs Result Diagrams: 12/30/17 08:27 12/30/17 08:27 Labs: Laboratory Results - last 24 hr 12/29/17 12/29/17 12/30/17 16:45 21:14 07:31 WBC RBC Hgb Hct MCV MCH MCHC RDW Plt Count MPV Neut % (Auto) Lymph % (Auto) [place] % (Auto) Eos % (Auto) Baso % (Auto) Neut # (Auto) Lymph # (Auto) [place] # (Auto) Eos # (Auto) Baso # (Auto) Neutrophils % (Manual) Lymphocytes % (Manual) Monocytes % (Manual) Eosinophils % (Manual) Platelet Estimate Hypochromasia (manual) Poikilocytosis (manual Anisocytosis (manual) Target Cells Sodium Potassium Chloride Carbon Dioxide Anion Gap BUN Creatinine Est GFR ( Amer) Est GFR (Non-Af Amer) POC Glucose (mg/dL) 162 H 160 H 152 H Random Glucose Calcium Total Bilirubin AST ALT Alkaline Phosphatase Total Protein Albumin Globulin Albumin/Globulin Ratio 12/30/17 12/30/17 12/30/17 08:27 08:27 11:17 WBC 12.8 H RBC 3.35 L Hgb 9.2 L Hct 28.0 L MCV 83.7 MCH 27.4 MCHC 32.8 L RDW 15.3 H Plt Count 291 MPV 7.1 L Neut % (Auto) 75.9 H Lymph % (Auto) 8.7 L [place] % (Auto) 14.7 H Eos % (Auto) 0.3 Baso % (Auto) 0.4 Neut # (Auto) 9.7 H Lymph # (Auto) 1.1 [place] # (Auto) 1.9 H Eos # (Auto) 0.0 Baso # (Auto) 0.1 Neutrophils % (Manual) 78 H Lymphocytes % (Manual) 9 L Monocytes % (Manual) 12 H Eosinophils % (Manual) 1 Platelet Estimate Normal Hypochromasia (manual) Slight Poikilocytosis (manual Slight Anisocytosis (manual) Slight Target Cells Slight Sodium 145 Potassium 4.2 Chloride 107 Carbon Dioxide 23 Anion Gap 19 BUN 41 H Creatinine 2.5 H Est GFR ( Amer) 31 Est GFR (Non-Af Amer) 26 POC Glucose (mg/dL) 129 H Random Glucose 138 H Calcium 9.3 Total Bilirubin 0.8 AST 16 L D ALT 30 Alkaline Phosphatase 137 H Total Protein 7.7 Albumin 3.9 Globulin 3.8 Albumin/Globulin Ratio 1.0 - EKG Data EKG Interpreted by: Myself EKG shows normal: Sinus rhythm, ST-T waves (non-specific changes) Rate: Tachycardia Assessment & Plan - Assessment and Plan (Free Text) Assessment: 72 y/o man with psyhiatric history and dementia who originally presented on 11/23 for UTI and delerium/dementia/AMS He was found to have elevated creatinine 4.5 now 2.5 seen by nephrology. TACHYCARDIA > sinus tachy on EKG > may related to multifactorial issues (UTI/inc sympathetic tone/dehydration/ anemia) He is on metoprolol 25: suggest inc to 50 plan echo to eval cardiac structure and function and wall motion
--- NOTE | 2017-12-30 16:21 | CP.PCM.PN ---
Subjective - Date & Time of Evaluation Date of Evaluation: 12/30/17 Time of Evaluation: 11:00 - Subjective Subjective: confused, awake, no agitation, po intake is fair. Objective - Vital Signs/Intake and Output Vital Signs (last 24 hours): Temp Pulse Resp BP Pulse Ox 99.4 F 119 H 20 117/69 94 L 12/30/17 15:00 12/30/17 15:00 12/30/17 15:00 12/30/17 15:00 12/30/17 15:00 Intake and Output: 12/30/17 12/30/17 06:59 18:59 Intake Total 250 Output Total 200 Balance 50 - Medications Medications: Current Medications Acetaminophen (Tylenol 325mg Tab) 650 mg PO Q6 PRN PRN Reason: Pain, Mild (1-3) Last Admin: 12/18/17 13:31 Dose: 650 mg Dextrose (Dextrose 50% Inj) 0 ml IV STAT PRN; Protocol PRN Reason: Hypoglycemia Protocol Last Admin: 12/06/17 06:53 Dose: 50 ml Dextrose (Glutose 15) 15 gm PO ONCE PRN; Protocol PRN Reason: Hypoglycemia Protocol Diphenhydramine HCl (Benadryl) 25 mg IVP Q8 PRN PRN Reason: Agitation Last Admin: 12/24/17 16:30 Dose: 25 mg Divalproex Sodium (Depakote Sprinkles) 125 mg PO BID [facility] Last Admin: 12/30/17 11:00 Dose: 125 mg Famotidine (Pepcid) 20 mg PO DAILY [facility] Last Admin: 12/30/17 11:00 Dose: 20 mg Glucagon (Glucagen Diagnostic Kit) 1 mg IM STAT PRN; Protocol PRN Reason: Hypoglycemia Protocol Sodium Chloride (Sodium Chloride 0.45%) 1,000 mls @ 75 mls/hr IV .[id number] [facility] Last Admin: 12/30/17 10:00 Dose: Not Given Insulin Aspart (Novolog) 0 unit SC ACHS [facility] PRN Reason: Protocol Last Admin: 12/30/17 12:00 Dose: Not Given Insulin Glargine (Lantus) 15 unit SC HS [facility] Last Admin: 12/29/17 21:35 Dose: 15 unit Lorazepam (Ativan) 0.5 mg PO Q6 PRN PRN Reason: Agitation Metoprolol Tartrate (Lopressor) 50 mg PO BID [facility] Quetiapine Fumarate (Seroquel) 50 mg PO HS [facility] Last Admin: 12/29/17 21:35 Dose: 50 mg Tamsulosin HCl (Flomax) 0.4 mg PO DAILY [facility] Last Admin: 12/30/17 11:00 Dose: 0.4 mg - Labs Labs: 12/30/17 08:27 12/30/17 08:27 Assessment and Plan - Assessment and Plan (Free Text) Assessment: Patient with dementia, colostomy, inpatient for 37days, sleepy but arousable . No acute agitation noted. Oral intake is fair, cleared by psyche for discharge to [facility].
--- NOTE | 2017-12-30 19:59 | CP.PCM.PN ---
Subjective - Date & Time of Evaluation Date of Evaluation: 12/30/17 Time of Evaluation: 07:00 - Subjective Subjective: clinically same Objective - Vital Signs/Intake and Output Vital Signs (last 24 hours): Temp Pulse Resp BP Pulse Ox 99.4 F 119 H 20 132/72 94 L 12/30/17 15:00 12/30/17 15:00 12/30/17 15:00 12/30/17 16:18 12/30/17 15:00 Intake and Output: 12/30/17 12/31/17 18:59 06:59 Intake Total 200 Output Total 100 Balance 100 - Medications Medications: Current Medications Acetaminophen (Tylenol 325mg Tab) 650 mg PO Q6 PRN PRN Reason: Pain, Mild (1-3) Last Admin: 12/18/17 13:31 Dose: 650 mg Dextrose (Dextrose 50% Inj) 0 ml IV STAT PRN; Protocol PRN Reason: Hypoglycemia Protocol Last Admin: 12/06/17 06:53 Dose: 50 ml Dextrose (Glutose 15) 15 gm PO ONCE PRN; Protocol PRN Reason: Hypoglycemia Protocol Diphenhydramine HCl (Benadryl) 25 mg IVP Q8 PRN PRN Reason: Agitation Last Admin: 12/24/17 16:30 Dose: 25 mg Divalproex Sodium (Depakote Sprinkles) 125 mg PO BID [facility] Last Admin: 12/30/17 17:19 Dose: 125 mg Famotidine (Pepcid) 20 mg PO DAILY [facility] Last Admin: 12/30/17 11:00 Dose: 20 mg Glucagon (Glucagen Diagnostic Kit) 1 mg IM STAT PRN; Protocol PRN Reason: Hypoglycemia Protocol Sodium Chloride (Sodium Chloride 0.45%) 1,000 mls @ 75 mls/hr IV .[id number] [facility] Last Admin: 12/30/17 10:00 Dose: Not Given Insulin Aspart (Novolog) 0 unit SC ACHS [facility] PRN Reason: Protocol Last Admin: 12/30/17 16:39 Dose: Not Given Insulin Glargine (Lantus) 15 unit SC HS [facility] Last Admin: 12/29/17 21:35 Dose: 15 unit Lorazepam (Ativan) 0.5 mg PO Q6 PRN PRN Reason: Agitation Metoprolol Tartrate (Lopressor) 50 mg PO BID [facility] Last Admin: 12/30/17 17:19 Dose: Not Given Quetiapine Fumarate (Seroquel) 50 mg PO HS [facility] Last Admin: 12/29/17 21:35 Dose: 50 mg Tamsulosin HCl (Flomax) 0.4 mg PO DAILY [facility] Last Admin: 12/30/17 11:00 Dose: 0.4 mg - Labs Labs: 12/30/17 08:27 12/30/17 08:27 - Constitutional Appears: Well - Head Exam Head Exam: ATRAUMATIC, NORMAL INSPECTION, NORMOCEPHALIC - Eye Exam Eye Exam: EOMI, Normal appearance, PERRL Pupil Exam: NORMAL ACCOMODATION, PERRL - ENT Exam ENT Exam: Mucous Membranes Moist, Normal Exam - Neck Exam Neck Exam: Full ROM, Normal Inspection. absent: Lymphadenopathy - Respiratory Exam Respiratory Exam: Decreased Breath Sounds - Cardiovascular Exam Cardiovascular Exam: REGULAR RHYTHM, +S1, +S2 - GI/Abdominal Exam GI & Abdominal Exam: Soft, Diminished Bowel Sounds - Rectal Exam Rectal Exam: Deferred
[2017-12-30] MEDS: (Lantus) Insulin Glargine, Recombinant SC SCH (22:16)
[2017-12-31 00:11] VITALS: BP 129/71; PULSE 109; TEMP 99.1; O2SAT 95
--- NOTE | 2017-12-31 00:14 | PCM.PYCHPN ---
Psychiatric Progress Note - Psychiatric Progress Note Patient seen today, length of contact: 16 min Patient Chief Complaint: yeni.' Problems Identified/Issues Discussed: Patient seen and evaluated, chart reviewed and discussed with the nurse. Pt was seen with the help of a department chair. Pt appeared more organized and less internally preoccupied than before. As per the staff, he was less imitable and agitated than before, so soft restraints were removed. Patient is compliant with medications and denies any side effects. Symptoms are improving but pt needs more time to stabilize. Support and psychoeducation given. Medication Change: No Medical Record Reviewed: Yes Mental Status Examination - Cognitive Function Orientation: Person Memory: Impaired Attention: WNL Concentration: Poor Association: Loose Fund of Knowledge: Poor - Mood Mood: Depressed, Anxious - Affect Affect: Flat - Speech Speech: Slurred - Formal Thought Process Formal Thought Process: Loosening of associations - Suicidal Ideation Suicidal Ideation: No - Homicidal Ideation Homicidal Ideation: No Goal/Treatment Plan - Goal/Treatment Plan Need for Continued Stay: Other (medical treatment) Progress Toward Problem(s) and Goals/Treatment Plan: Depakote 125 mg BID Ativan 0.5 mg Q8 Seroquel 50 mg PO QHS Monitor patient's mental status Pt psychiatrically stable and clear for discharge to the half-way.
== END 2017-12-30 23:55 | DRG 871 ==
LOC: C.ER 15:23 → C.9E 18:12 → C.6T 22:11 → C.5S 12-23 03:28 → C.3T 12-24 22:44
PROVIDERS: ADMIT Internal Medicine Nephrology; ATTEND Internal Medicine Nephrology
DX: A41.9 Sepsis, unspecified organism (principal); I50.23 Acute on chronic systolic (congestive) heart failure; N39.0 Urinary tract infection, site not specified; N18.4 Chronic kidney disease, stage 4 (severe); L02.413 Cutaneous abscess of right upper limb; I13.0 Hypertensive heart and chronic kidney disease with heart failure and stage 1 through stage 4 chronic kidney disease, or unspecified chronic kidney disease; E87.2 Acidosis; I48.91 Unspecified atrial fibrillation; N40.0 Benign prostatic hyperplasia without lower urinary tract symptoms; Z78.1 Physical restraint status; Z79.4 Long term (current) use of insulin; Z91.81 History of falling; Z93.3 Colostomy status; E87.5 Hyperkalemia; F03.90 Unspecified dementia, unspecified severity, without behavioral disturbance, psychotic disturbance, mood disturbance, and anxiety; E86.0 Dehydration; E11.22 Type 2 diabetes mellitus with diabetic chronic kidney disease; D64.9 Anemia, unspecified

== ENCOUNTER 2018-01-13 16:58 | Inpatient (IN) | payer MEDICARE, OTHER ==
[2018-01-13 17:51] LABS: BASO # 0.1 K/uL (0.0-0.2); BASO % 0.5 % (0.0-2.0); EOS # 0.1 K/uL (0.0-0.7); EOS % 0.4 % (0.0-4.0); HEMOGLOBIN 10.6 g/dL (12.0-18.0); LYMPH # 1.1 K/uL (1.0-4.3); LYMPH % 7.4 % (20.0-40.0); MEAN CELL VOLUME 83.1 fL (80.0-94.0); MEAN CORPUSCULAR HEMOGLOBIN 27.2 pg (27.0-31.0); MEAN CORPUSCULAR HGB CONC 32.7 g/dL (33.0-37.0); MEAN PLATELET VOLUME 7.4 fL (7.2-11.7); MONO # 0.8 K/uL (0.0-0.8); MONO % 5.3 % (0.0-10.0); NEUT # 13.3 K/uL (1.8-7.0); NEUT % 86.4 % (50.0-75.0); NRBC % 0.1 % (0.0-2.0); PLATELET COUNT 691 K/uL (130-400); RED CELL DISTRIBUTION WIDTH 17.2 % (11.5-14.5); WHITE BLOOD COUNT 15.4 K/uL (4.8-10.8)
[2018-01-13 17:52] LABS: VENOUS BLOOD GAS BASE EXCESS -11.6 mmol/L (0.0-2.0); VENOUS BLOOD GAS PCO2 28 mmHg (40-60); VENOUS BLOOD GAS PO2 78 mm/Hg (30-55); VENOUS BLOOD PH 7.29 (7.32-7.43)
[2018-01-13 17:58] LABS: INR 1.3
[2018-01-13] MEDS ORDERED: Lactated Ringer's 2,000 ML ONE (17:58)
--- NOTE | 2018-01-13 18:01 | RAD ---
Date of service: 01/13/2018 PROCEDURE: CHEST RADIOGRAPH, 1 VIEW HISTORY: Possible sepsis COMPARISON: Chest radiograph dated 12/17/2017. FINDINGS: LUNGS: Clear. PLEURA: No pneumothorax or pleural fluid seen. CARDIOVASCULAR: Atherosclerotic aortic calcifications. Cardiomediastinal silhouette stably enlarged. OSSEOUS STRUCTURES: Unchanged. VISUALIZED UPPER ABDOMEN: Normal. OTHER FINDINGS: None. IMPRESSION: No active disease.
[2018-01-13 18:18] LABS: ALB/GLOB RATIO 0.7 (1.0-2.1); ALBUMIN 4.2 g/dL (3.5-5.0); CALCIUM 11.1 mg/dl (8.6-10.4)
--- NOTE | 2018-01-13 18:29 | C.PDOC ---
Chief Complaint (Nursing): Altered Mental Status Past Medical History Vital Signs: Last Vital Signs Temp 97 F L 01/13/18 18:03 Pulse 133 H 01/13/18 18:03 Resp 22 01/13/18 18:03 BP 120/70 01/13/18 18:03 Pulse Ox 99 01/13/18 18:03 - Medical History PMH: Anemia, Dementia Denies: Chronic Kidney Disease - Social History Hx Alcohol Use: No Hx Substance Use: No - Immunization History Hx Tetanus Toxoid Vaccination: No Hx Influenza Vaccination: No Hx Pneumococcal Vaccination: No ED Course And Treatment - Laboratory Results Result Diagrams: 01/13/18 17:42 01/13/18 17:42 O2 Sat by Pulse Oximetry: 99 Disposition - Disposition Forms: [employer] ([place]ian)
--- NOTE | 2018-01-13 18:31 | C.PDOC ---
History Of Present Illness 72 y/o male, w/PMhx of diabetes and dementia, brought to ER from senior care for evaluation after he refused to eat and take his medications. Patient has a colostomy bag for an unknown reason. Of note, HPI is limited because patient is nonverbal. Chief Complaint (Nursing): Altered Mental Status History Per: Patient History/Exam Limitations: Other (non-verbal) Onset/Duration Of Symptoms: Days Current Symptoms Are (Timing): Still Present Past Medical History Reviewed: Historical Data, Nursing Documentation, Vital Signs Vital Signs: Last Vital Signs Temp 98.3 F 01/19/18 08:00 Pulse 61 01/19/18 08:00 Resp 18 01/19/18 08:00 BP 121/55 L 01/19/18 08:00 Pulse Ox 100 01/19/18 08:00 - Medical History PMH: Anemia, Dementia Denies: Chronic Kidney Disease Surgical History: No Surg Hx Family History: States: No Known Family Hx - Social History Hx Alcohol Use: No Hx Substance Use: No - Immunization History Hx Tetanus Toxoid Vaccination: No Hx Influenza Vaccination: No Hx Pneumococcal Vaccination: No Review Of Systems Review Of Systems: ROS cannot be obtained secondary to pt's inabilty to answer questions. Physical Exam - Physical Exam Appears: No Acute Distress, Other (awake, nonverbal, obtunded) Skin: Normal Color, Warm, Dry Head: Atraumatic, Normacephalic Eye(s): bilateral: Normal Inspection, Other (pinpoint pupils, non- reactive to light) Nose: Normal Oral Mucosa: Moist Neck: Supple Chest: Symmetrical Cardiovascular: Rhythm Regular Respiratory: Normal Breath Sounds, No Rales, No Rhonchi, No Wheezing Gastrointestinal/Abdominal: Soft, No Tenderness, No Guarding, No Rebound, Other (RLQ- colostomy bag) Extremity: No Normal ROM (left arm-contracted), No Pedal Edema Neurological/Psych: Oriented x3, Normal Speech ED Course And Treatment - Laboratory Results Result Diagrams: 01/19/18 05:54 01/19/18 05:54 O2 Sat by Pulse Oximetry: 99 (RA) Pulse Ox Interpretation: Normal - Other Rad CXR X-Ray: Viewed By Me, Read By Radiologist Interpretation: Date of service: 01/13/2018. PROCEDURE: CHEST RADIOGRAPH, 1 VIEW. HISTORY: Possible sepsis. COMPARISON: Chest radiograph dated 2017. FINDINGS: LUNGS: Clear. PLEURA: No pneumothorax or pleural fluid seen. CARDIOVASCULAR: Atherosclerotic aortic calcifications. Cardiomediastinal silhouette stably enlarged. OSSEOUS STRUCTURES: Unchanged. VISUALIZED UPPER ABDOMEN: Normal. OTHER FINDINGS: None. IMPRESSION: No active disease. - CT Scan/US CT-Head Other Rad Studies (CT/US): Read By Radiologist, Radiology Report Reviewed CT/US Interpretation: Date of service: 01/13/2018. PROCEDURE: CT HEAD WITHOUT CONTRAST. HISTORY: possible sepsis. COMPARISON: CT head dated 2017. TECHNIQUE: Axial computed tomography images were obtained through the head/brain without intravenous contrast. Radiation dose: Total exam DLP = 863.4 mGy-cm. This CT exam was performed using one or more of the following dose reduction techniques: Automated exposure control, adjustment of the mA and/ or kV according to patient size, and/or use of iterative reconstruction technique. FINDINGS: HEMORRHAGE: No intracranial hemorrhage. BRAIN: No mass effect or edema. Atrophy. Chronic microvascular ischemic changes. Bilateral basal ganglia lacunar infarctions redemonstrated. 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 VENTRICLES: Unremarkable. No hydrocephalus. CALVARIUM: Unremarkable. PARANASAL SINUSES: Left frontal sinus osteoma redemonstrated. No significant inflammatory changes. MASTOID AIR CELLS: Unremarkable as visualized. No inflammatory changes. OTHER FINDINGS: None. IMPRESSION: No acute intracranial pathology. Age- related changes. No significant interval change. Medical Decision Making Medical Decision Making: Impression: Stroke vs DKA Plan: --Labs --ECG --CXR -- CT- Head Disposition - Disposition Disposition: HOSPITALIZED Disposition Time: 20:27 Condition: CRITICAL - POA Core Measure Indicators: Code Sepsis - Clinical Impression Clinical Impression: Change in mental status, UTI (urinary tract infection), JOY (acute kidney injury), Electrolyte imbalance - Scribe Statement The provider has reviewed the documentation as recorded by the Juanibraza Reddy Provider Attestation: All medical record entries made by the Scribe were at my direction and personally dictated by me. I have reviewed the chart and agree that the record accurately reflects my personal performance of the history, physical exam, medical decision making, and the department course for this patient. I have also personally directed, reviewed, and agree with the discharge instructions and disposition.
--- NOTE | 2018-01-13 18:36 | CT ---
Date of service: 01/13/2018 PROCEDURE: CT HEAD WITHOUT CONTRAST. HISTORY: possible sepsis COMPARISON: CT head dated 12/18/2017 TECHNIQUE: Axial computed tomography images were obtained through the head/brain without intravenous contrast. Radiation dose: Total exam DLP = 863.4 mGy-cm. This CT exam was performed using one or more of the following dose reduction techniques: Automated exposure control, adjustment of the mA and/or kV according to patient size, and/or use of iterative reconstruction technique. FINDINGS: HEMORRHAGE: No intracranial hemorrhage. BRAIN: No mass effect or edema. Atrophy. Chronic microvascular ischemic changes. Bilateral basal ganglia lacunar infarctions redemonstrated. 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 VENTRICLES: Unremarkable. No hydrocephalus. CALVARIUM: Unremarkable. PARANASAL SINUSES: Left frontal sinus osteoma redemonstrated. No significant inflammatory changes. MASTOID AIR CELLS: Unremarkable as visualized. No inflammatory changes. OTHER FINDINGS: None. IMPRESSION: No acute intracranial pathology. Age-related changes. No significant interval change.
[2018-01-13 18:38] LABS: BANDS 1 % (0-2); EOSINOPHIL 1 % (0-4); LYMPHOCYTE 10 % (20-40); MONOCYTE 3 % (0-10); NEUTROPHIL 85 % (50-75); TOTAL CELLS COUNTED 100
[2018-01-13 18:39] LABS: PLATELET CLUMPS PRESENT; PLATELET ESTIMATE MARKEDLY INCREASED (NORMAL)
[2018-01-13 18:42] LABS: HYPOCHROMIC SLIGHT
[2018-01-13] MEDS ORDERED: Naloxone 0.4 mg/ml Inj (Adult) IVP ONE (18:44)
[2018-01-13] MEDS ORDERED: Sodium Bicarbonate (8.4%) 50 Meq Syringe IVP ONE (18:51)
[2018-01-13] MEDS ORDERED: Dextrose 50% SYRINGE Inj (50 ml) IV STA (18:51)
[2018-01-13] MEDS ORDERED: (Novolin R) Insulin Human Regular 100 units/ml vial IV ONE (18:52)
[2018-01-13 18:56] LABS: URINE BILIRUBIN NEGATIVE (NEGATIVE); URINE BLOOD 3+ (NEGATIVE); URINE CLARITY Turbid (Clear); URINE COLOR Amber (YELLOW); URINE GLUCOSE (UA) NORMAL (Normal); URINE LEUKOCYTE ESTERASE 3+ Leu/uL (Negative); URINE PROTEIN 2+ mg/dL (NEGATIVE); URINE UROBILINOGEN NORMAL mg/dL (0.2-1.0); WBC CLUMPS MANY /hpf
[2018-01-13] MEDS ORDERED: Sod Polystyrene Sulf 15 gm/60 ml Susp PO ONE (18:56)
[2018-01-13] MEDS ORDERED: Sodium Chloride 0.9% 1,000 ML IV SCH (19:00)
[2018-01-13] MEDS ORDERED: Sodium Bicarbonate 8.4% 150 MEQ in Dextrose 5% In Water 1,000 ML IV SCH (19:00)
[2018-01-13] MEDS ORDERED: Naloxone 0.4 mg/ml Inj (Adult) ONE (19:00)
[2018-01-13] MEDS ORDERED: Albuterol-Ipratrop 3 mg / 0.5 (3 ml) UD INH SCH (20:00)
[2018-01-13 20:10] LABS: ALB/GLOB RATIO 0.9 (1.0-2.1); ALBUMIN 3.3 g/dL (3.5-5.0)
[2018-01-13 20:10] LABS: OSMOLALITY,URINE 475 mosm/kg (300-1000)
[2018-01-13 20:20] LABS: BARBITURATES, UR NEGATIVE (NEGATIVE); BENZODIAZEPINES, UR NEGATIVE (NEGATIVE); OPIATES, UR NEGATIVE (NEGATIVE); PHENCYCLIDINE, UR NEGATIVE (NEGATIVE)
[2018-01-13 20:26] LABS: VENOUS BLOOD GAS PCO2 42 mmHg (40-60); VENOUS BLOOD GAS PO2 19 mm/Hg (30-55); VENOUS BLOOD PH 7.24 (7.32-7.43)
[2018-01-13] MEDS ORDERED: cefTRIAXone IV 1 gm in Dextros 50 ML IVPB STA (20:37)
[2018-01-13 21:15] LABS: CK-MB 2.69 ng/mL (0.0-3.38); TROPONIN I 0.073 ng/mL (0.00-0.120)
--- NOTE | 2018-01-13 21:42 | CP.PCM.HP ---
History of Present Illness - History of Present Illness History of Present Illness: 72-year-old male patient with PMH of diabetes, anemia, dementia was brought to the ER from [facility] for evaluation after he refused to take his medications and to eat. Further HPI of the patient is limited as the patient is nonverbal. Present on Admission - Present on Admission Any Indicators Present on Admission: No Past Patient History - Infectious Disease Hx of Infectious Diseases: None - Past Medical History & Family History Past Medical History?: Yes - Past Social History Smoking Status: Unknown If Ever Smoked - PULMONARY Hx Respiratory Disorders: Yes - NEUROLOGICAL Hx Dementia: Yes - HEENT Hx HEENT Problems: No - RENAL Hx Chronic Kidney Disease: No - ENDOCRINE/METABOLIC Hx Diabetes Mellitus Type 2: Yes - HEMATOLOGICAL/ONCOLOGICAL Hx Anemia: Yes - INTEGUMENTARY Hx Dermatological Problems: No - MUSCULOSKELETAL/RHEUMATOLOGICAL Hx Falls: No - GASTROINTESTINAL Hx Gastrointestinal Disorders: No Hx Colostomy: Yes - GENITOURINARY/GYNECOLOGICAL Hx Genitourinary Disorders: No - PSYCHIATRIC Hx Substance Use: No - SURGICAL HISTORY Hx Surgeries: No Other/Comment: unable to obtain informations - ANESTHESIA Hx Anesthesia: No Hx Anesthesia Reactions: No Meds Allergies/Adverse Reactions: Allergies Allergy/AdvReac Type Severity Reaction Status Date / Time No Known Allergies Allergy Verified 01/13/18 17:08 Results - Vital Signs Recent Vital Signs: Last Vital Signs Temp 98.1 F 01/13/18 21:07 Pulse 130 H 01/13/18 21:07 Resp 16 01/13/18 21:07 BP 127/78 01/13/18 21:07 Pulse Ox 95 01/13/18 20:07 - Labs Result Diagrams: 02/15/18 16:30 02/15/18 16:30 Labs: Laboratory Results - last 24 hr 01/13/18 01/13/18 01/13/18 17:08 17:42 17:42 WBC 15.4 H RBC 3.90 L Hgb 10.6 L Hct 32.4 L MCV 83.1 MCH 27.2 MCHC 32.7 L RDW 17.2 H Plt Count 691 H D MPV 7.4 Neut % (Auto) 86.4 H Lymph % (Auto) 7.4 L [place] % (Auto) 5.3 Eos % (Auto) 0.4 Baso % (Auto) 0.5 Neut # (Auto) 13.3 H Lymph # (Auto) 1.1 [place] # (Auto) 0.8 Eos # (Auto) 0.1 Baso # (Auto) 0.1 Neutrophils % (Manual) 85 H Band Neutrophils % 1 Lymphocytes % (Manual) 10 L Monocytes % (Manual) 3 Eosinophils % (Manual) 1 Platelet Estimate Markedly increased H Plt Clumps, EDTA Present Hypochromasia (manual) Slight PT 14.0 H INR 1.3 APTT 30 pO2 VBG pH VBG pCO2 VBG HCO3 VBG Total CO2 VBG O2 Sat (Calc) VBG Base Excess VBG Potassium Glucose Lactate FiO2 Crit Value Called To Crit Value Called By Crit Value Read Back Blood Gas Notified Time Sodium Potassium Chloride Carbon Dioxide Anion Gap BUN Creatinine Est GFR ( Amer) Est GFR (Non-Af Amer) POC Glucose (mg/dL) 153 H Random Glucose Lactic Acid Calcium Phosphorus Magnesium Total Bilirubin AST ALT Alkaline Phosphatase Ammonia Total Creatine Kinase CK-MB (Mass) Troponin I Total Protein Albumin Globulin Albumin/Globulin Ratio Venous Blood Potassium Urine Color Urine Clarity Urine pH Ur Specific [place] Urine Protein Urine Glucose (UA) Urine Ketones Urine Blood Urine Nitrate Urine Bilirubin Urine Urobilinogen Ur Leukocyte Esterase Urine WBC (Auto) Urine RBC (Auto) Urine WBC Clumps (Auto) Urine Osmolality Ur Random Creatinine Ur Random Sodium Ur Random Urea Nitrogn Urine Opiates Screen Urine Methadone Screen Ur Barbiturates Screen Valproic Acid Ur Phencyclidine Scrn Ur Amphetamines Screen U Benzodiazepines Scrn U Oth Cocaine Metabols U Cannabinoids Screen 01/13/18 01/13/18 01/13/18 17:42 17:42 17:45 WBC RBC Hgb Hct MCV MCH MCHC RDW Plt Count MPV Neut % (Auto) Lymph % (Auto) [place] % (Auto) Eos % (Auto) Baso % (Auto) Neut # (Auto) Lymph # (Auto) [place] # (Auto) Eos # (Auto) Baso # (Auto) Neutrophils % (Manual) Band Neutrophils % Lymphocytes % (Manual) Monocytes % (Manual) Eosinophils % (Manual) Platelet Estimate Plt Clumps, EDTA Hypochromasia (manual) PT INR APTT pO2 78 H VBG pH 7.29 L VBG pCO2 28 L VBG HCO3 15.8 VBG Total CO2 14.4 L VBG O2 Sat (Calc) 96.8 H VBG Base Excess -11.6 L VBG Potassium 8.0 H* Glucose 184 H Lactate 1.3 FiO2 Crit Value Called To Renny broderick do Crit Value Called By José Miguel jain improvement intern Crit Value Read Back Y Blood Gas Notified Time 1755 Sodium 156 H 150.0 H Potassium 8.0 H* D Chloride 114 H 117.0 H Carbon Dioxide 9 L* D Anion Gap 40 H BUN 219 H* D Creatinine 10.7 H* D Est GFR ( Amer) 6 Est GFR (Non-Af Amer) 5 POC Glucose (mg/dL) Random Glucose 195 H Lactic Acid Calcium 11.1 H Phosphorus 12.0 H Magnesium 4.2 H Total Bilirubin 0.7 AST 55 ALT 68 Alkaline Phosphatase 322 H D Ammonia 17 Total Creatine Kinase CK-MB (Mass) Troponin I Total Protein 9.9 H Albumin 4.2 Globulin 5.8 H Albumin/Globulin Ratio 0.7 L Venous Blood Potassium 8.0 H* Urine Color Urine Clarity Urine pH Ur Specific [place] Urine Protein Urine Glucose (UA) Urine Ketones Urine Blood Urine Nitrate Urine Bilirubin Urine Urobilinogen Ur Leukocyte Esterase Urine WBC (Auto) Urine RBC (Auto) Urine WBC Clumps (Auto) Urine Osmolality Ur Random Creatinine Ur Random Sodium Ur Random Urea Nitrogn Urine Opiates Screen Urine Methadone Screen Ur Barbiturates Screen Valproic Acid Ur Phencyclidine Scrn Ur Amphetamines Screen U Benzodiazepines Scrn U Oth Cocaine Metabols U Cannabinoids Screen 01/13/18 01/13/18 01/13/18 18:47 19:42 19:53 WBC RBC Hgb Hct MCV MCH MCHC RDW Plt Count MPV Neut % (Auto) Lymph % (Auto) [place] % (Auto) Eos % (Auto) Baso % (Auto) Neut # (Auto) Lymph # (Auto) [place] # (Auto) Eos # (Auto) Baso # (Auto) Neutrophils % (Manual) Band Neutrophils % Lymphocytes % (Manual) Monocytes % (Manual) Eosinophils % (Manual) Platelet Estimate Plt Clumps, EDTA Hypochromasia (manual) PT INR APTT pO2 VBG pH VBG pCO2 VBG HCO3 VBG Total CO2 VBG O2 Sat (Calc) VBG Base Excess VBG Potassium Glucose Lactate FiO2 Crit Value Called To Crit Value Called By Crit Value Read Back Blood Gas Notified Time Sodium 153 H Potassium 5.7 H Chloride 116 H Carbon Dioxide 15 L Anion Gap 27 H BUN 212 H* Creatinine 9.0 H* Est GFR ( Amer) 7 Est GFR (Non-Af Amer) 6 POC Glucose (mg/dL) Random Glucose 294 H Lactic Acid Calcium 9.0 Phosphorus Magnesium Total Bilirubin 0.6 AST 38 ALT 43 Alkaline Phosphatase 216 H D Ammonia Total Creatine Kinase CK-MB (Mass) Troponin I Total Protein 7.2 Albumin 3.3 L D Globulin 3.9 Albumin/Globulin Ratio 0.9 L Venous Blood Potassium Urine Color No Urine Clarity Turbid Urine pH 6.0 Ur Specific [place] 1.015 Urine Protein 2+ H Urine Glucose (UA) Normal Urine Ketones Negative Urine Blood 3+ H Urine Nitrate Negative Urine Bilirubin Negative Urine Urobilinogen Normal Ur Leukocyte Esterase 3+ H Urine WBC (Auto) 2628 H Urine RBC (Auto) 78 H Urine WBC Clumps (Auto) Many H Urine Osmolality 475 Ur Random Creatinine 94.0 Ur Random Sodium 64 Ur Random Urea Nitrogn 476 Urine Opiates Screen Negative Urine Methadone Screen Negative Ur Barbiturates Screen Negative Valproic Acid Ur Phencyclidine Scrn Negative Ur Amphetamines Screen Negative U Benzodiazepines Scrn Negative U Oth Cocaine Metabols Negative U Cannabinoids Screen Negative 01/13/18 01/13/18 01/13/18 20:20 20:30 21:10 WBC RBC Hgb Hct MCV MCH MCHC RDW Plt Count MPV Neut % (Auto) Lymph % (Auto) [place] % (Auto) Eos % (Auto) Baso % (Auto) Neut # (Auto) Lymph # (Auto) [place] # (Auto) Eos # (Auto) Baso # (Auto) Neutrophils % (Manual) Band Neutrophils % Lymphocytes % (Manual) Monocytes % (Manual) Eosinophils % (Manual) Platelet Estimate Plt Clumps, EDTA Hypochromasia (manual) PT INR APTT pO2 19 L VBG pH 7.24 L VBG pCO2 42 VBG HCO3 15.8 VBG Total CO2 19.3 L VBG O2 Sat (Calc) 41.6 VBG Base Excess -9.0 L VBG Potassium 5.9 H Glucose 225 H Lactate 2.0 FiO2 21.0 Crit Value Called To Crit Value Called By Crit Value Read Back Blood Gas Notified Time Sodium 153.0 H Potassium Chloride 122.0 H Carbon Dioxide Anion Gap BUN Creatinine Est GFR ( Amer) Est GFR (Non-Af Amer) POC Glucose (mg/dL) Random Glucose Lactic Acid Calcium Phosphorus Magnesium Total Bilirubin AST ALT Alkaline Phosphatase Ammonia 22 D Total Creatine Kinase 1091 H CK-MB (Mass) 2.69 Troponin I 0.0730 Total Protein Albumin Globulin Albumin/Globulin Ratio Venous Blood Potassium 5.9 H Urine Color Urine Clarity Urine pH Ur Specific [place] Urine Protein Urine Glucose (UA) Urine Ketones Urine Blood Urine Nitrate Urine Bilirubin Urine Urobilinogen Ur Leukocyte Esterase Urine WBC (Auto) Urine RBC (Auto) Urine WBC Clumps (Auto) Urine Osmolality Ur Random Creatinine Ur Random Sodium Ur Random Urea Nitrogn Urine Opiates Screen Urine Methadone Screen Ur Barbiturates Screen Valproic Acid Ur Phencyclidine Scrn Ur Amphetamines Screen U Benzodiazepines Scrn U Oth Cocaine Metabols U Cannabinoids Screen 01/13/18 01/13/18 21:12 21:12 WBC RBC Hgb Hct MCV MCH MCHC RDW Plt Count MPV Neut % (Auto) Lymph % (Auto) [place] % (Auto) Eos % (Auto) Baso % (Auto) Neut # (Auto) Lymph # (Auto) [place] # (Auto) Eos # (Auto) Baso # (Auto) Neutrophils % (Manual) Band Neutrophils % Lymphocytes % (Manual) Monocytes % (Manual) Eosinophils % (Manual) Platelet Estimate Plt Clumps, EDTA Hypochromasia (manual) PT INR APTT pO2 VBG pH VBG pCO2 VBG HCO3 VBG Total CO2 VBG O2 Sat (Calc) VBG Base Excess VBG Potassium Glucose Lactate FiO2 Crit Value Called To Crit Value Called By Crit Value Read Back Blood Gas Notified Time Sodium Potassium Chloride Carbon Dioxide Anion Gap BUN Creatinine Est GFR ( Amer) Est GFR (Non-Af Amer) POC Glucose (mg/dL) Random Glucose Lactic Acid 1.9 Calcium Phosphorus Magnesium Total Bilirubin AST ALT Alkaline Phosphatase Ammonia Total Creatine Kinase CK-MB (Mass) Troponin I Total Protein Albumin Globulin Albumin/Globulin Ratio Venous Blood Potassium Urine Color Urine Clarity Urine pH Ur Specific [place] Urine Protein Urine Glucose (UA) Urine Ketones Urine Blood Urine Nitrate Urine Bilirubin Urine Urobilinogen Ur Leukocyte Esterase Urine WBC (Auto) Urine RBC (Auto) Urine WBC Clumps (Auto) Urine Osmolality Ur Random Creatinine Ur Random Sodium Ur Random Urea Nitrogn Urine Opiates Screen Urine Methadone Screen Ur Barbiturates Screen Valproic Acid < 10.0 L Ur Phencyclidine Scrn Ur Amphetamines Screen U Benzodiazepines Scrn U Oth Cocaine Metabols U Cannabinoids Screen Assessment & Plan (1) JOY (acute kidney injury) Status: Acute (2) Change in mental status Status: Acute (3) Electrolyte imbalance Status: Acute (4) MRSA (methicillin resistant Staphylococcus aureus) septicemia Status: Acute (5) NSTEMI (non-ST elevated myocardial infarction) Status: Acute (6) Prophylactic measure Status: Acute (7) UTI (urinary tract infection) Status: Acute (8) CHF (congestive heart failure) Status: Chronic (9) CKD (chronic kidney disease) Status: Chronic (10) Diabetes mellitus Status: Chronic (11) Afib Status: Acute (12) Anemia Status: Acute (13) Bilateral hydronephrosis Status: Acute (14) CKD (chronic kidney disease) stage 4, GFR 15-29 ml/min Status: Acute (15) Metabolic acidosis Status: Acute (16) Dementia Status: Chronic - Assessment and Plan (Free Text) Plan: Patient seen and examined at bedside Labs and meds reviewed Leukocytosis Low hemoglobin Monitor H&H CT head report noted No acute intracranial pathology Chest x-ray shows no active disease Core sepsis Multiple cultures Monitor vitals Follow-up with labs
[2018-01-14] MEDS ORDERED: Aztreonam 1 GM in Sodium Chloride 0.9% 100 ML IVPB SCH
[2018-01-14] MEDS: Albuterol-Ipratrop 3 mg / 0.5 (3 ml) UD INH SCH ×4 (00:25→05:38)
--- NOTE | 2018-01-14 01:15 | CP.PCM.CON ---
History of Present Illness - History of Present Illness History of Present Illness: 72 y/o male admitted from residential with AMS. PAtient was drowsy, not able to provide any history. Incidental fingind revealed high creatinine nad high potassium. ICU consulted for above. PMX: dementia, DM, BPH, CKD Psurg hx: s/p colostomy allergeis: NKDA ROS: limited 2nd patient's mental status Patient previously admitted to [facility] for similar clinial scenario Review of Systems - Review of Systems Review of Systems: limited ROS 2nd AMS Past Patient History - Infectious Disease Hx of Infectious Diseases: None - Tetanus Immunizations Tetanus Immunization: Unknown - Past Medical History & Family History Past Medical History?: Yes - Past Social History Smoking Status: Unknown If Ever Smoked - PULMONARY Hx Respiratory Disorders: Yes - NEUROLOGICAL Hx Dementia: Yes - HEENT Hx HEENT Problems: No - RENAL Hx Chronic Kidney Disease: No - ENDOCRINE/METABOLIC Hx Diabetes Mellitus Type 2: Yes - HEMATOLOGICAL/ONCOLOGICAL Hx Anemia: Yes - INTEGUMENTARY Hx Dermatological Problems: No - MUSCULOSKELETAL/RHEUMATOLOGICAL Hx Falls: No - GASTROINTESTINAL Hx Gastrointestinal Disorders: No Hx Colostomy: Yes - GENITOURINARY/GYNECOLOGICAL Hx Genitourinary Disorders: No - PSYCHIATRIC Hx Substance Use: No - SURGICAL HISTORY Hx Surgeries: No Other/Comment: unable to obtain informations - ANESTHESIA Hx Anesthesia: No Hx Anesthesia Reactions: No Meds Allergies/Adverse Reactions: Allergies Allergy/AdvReac Type Severity Reaction Status Date / Time No Known Allergies Allergy Verified 01/13/18 17:08 - Medications Medications: Current Medications Albuterol/Ipratropium (Duoneb 3 Mg/0.5 Mg (3 Ml) Ud) 3 ml INH RQ2 NEL Stop: 01/14/18 06:01 Last Admin: 01/14/18 00:25 Dose: 3 ml Sodium Bicarbonate 150 meq/ (Dextrose) 1,150 mls @ 75 mls/hr IV .[id number] [facility] Last Admin: 01/13/18 20:03 Dose: 75 mls/hr Sodium Chloride (Sodium Chloride 0.9%) 1,000 mls @ 150 mls/hr IV .[id number] [facility] Last Admin: 01/13/18 19:13 Dose: 150 mls/hr Aztreonam 1 gm/ Sodium (Chloride) 100 mls @ 200 mls/hr IVPB Q24H NEL PRN Reason: Protocol Last Admin: 01/14/18 00:20 Dose: 200 mls/hr Meropenem 500 mg/ Sodium (Chloride) 100 mls @ 100 mls/hr IVPB Q24H NEL PRN Reason: Protocol Tamsulosin HCl (Flomax) 0.4 mg PO DAILY NEL Physical Exam - Head Exam Head Exam: ATRAUMATIC, NORMAL INSPECTION, NORMOCEPHALIC - Eye Exam Eye Exam: EOMI Pupil Exam: PERRL - ENT Exam ENT Exam: Mucous Membranes Dry - Respiratory Exam Respiratory Exam: Clear to Auscultation Bilateral, NORMAL BREATHING PATTERN - Cardiovascular Exam Cardiovascular Exam: +S1, +S2, Systolic Murmur - GI/Abdominal Exam GI & Abdominal Exam: Normal Bowel Sounds, Soft Additional comments: (+)ostomy tube - Extremities Exam Extremities exam: Positive for: normal inspection. Negative for: tenderness - Skin Skin Exam: Normal Color Results - Vital Signs Recent Vital Signs: Last Vital Signs Temp 98.1 F 01/13/18 21:07 Pulse 130 H 01/13/18 21:07 Resp 16 01/13/18 21:07 BP 127/78 01/13/18 21:07 Pulse Ox 95 01/13/18 20:07 - Labs Result Diagrams: 01/13/18 17:42 01/13/18 19:42 Labs: Laboratory Results - last 24 hr 01/13/18 01/13/18 01/13/18 17:08 17:42 17:42 WBC 15.4 H RBC 3.90 L Hgb 10.6 L Hct 32.4 L MCV 83.1 MCH 27.2 MCHC 32.7 L RDW 17.2 H Plt Count 691 H D MPV 7.4 Neut % (Auto) 86.4 H Lymph % (Auto) 7.4 L Pope % (Auto) 5.3 Eos % (Auto) 0.4 Baso % (Auto) 0.5 Neut # (Auto) 13.3 H Lymph # (Auto) 1.1 Pope # (Auto) 0.8 Eos # (Auto) 0.1 Baso # (Auto) 0.1 Neutrophils % (Manual) 85 H Band Neutrophils % 1 Lymphocytes % (Manual) 10 L Monocytes % (Manual) 3 Eosinophils % (Manual) 1 Platelet Estimate Markedly increased H Plt Clumps, EDTA Present Hypochromasia (manual) Slight PT 14.0 H INR 1.3 APTT 30 pO2 VBG pH VBG pCO2 VBG HCO3 VBG Total CO2 VBG O2 Sat (Calc) VBG Base Excess VBG Potassium Glucose Lactate FiO2 Crit Value Called To Crit Value Called By Crit Value Read Back Blood Gas Notified Time Sodium Potassium Chloride Carbon Dioxide Anion Gap BUN Creatinine Est GFR ( Amer) Est GFR (Non-Af Amer) POC Glucose (mg/dL) 153 H Random Glucose Serum Osmolality Lactic Acid Calcium Phosphorus Magnesium Total Bilirubin AST ALT Alkaline Phosphatase Ammonia Total Creatine Kinase CK-MB (Mass) Troponin I NT-Pro-B Natriuret Pep Total Protein Albumin Globulin Albumin/Globulin Ratio TSH 3rd Generation Venous Blood Potassium Urine Color Urine Clarity Urine pH Ur Specific [place] Urine Protein Urine Glucose (UA) Urine Ketones Urine Blood Urine Nitrate Urine Bilirubin Urine Urobilinogen Ur Leukocyte Esterase Urine WBC (Auto) Urine RBC (Auto) Urine WBC Clumps (Auto) Urine Osmolality Ur Random Creatinine Ur Random Sodium Ur Random Urea Nitrogn Urine Opiates Screen Urine Methadone Screen Ur Barbiturates Screen Valproic Acid Ur Phencyclidine Scrn Ur Amphetamines Screen U Benzodiazepines Scrn U Oth Cocaine Metabols U Cannabinoids Screen 01/13/18 01/13/18 01/13/18 17:42 17:42 17:45 WBC RBC Hgb Hct MCV MCH MCHC RDW Plt Count MPV Neut % (Auto) Lymph % (Auto) Pope % (Auto) Eos % (Auto) Baso % (Auto) Neut # (Auto) Lymph # (Auto) Pope # (Auto) Eos # (Auto) Baso # (Auto) Neutrophils % (Manual) Band Neutrophils % Lymphocytes % (Manual) Monocytes % (Manual) Eosinophils % (Manual) Platelet Estimate Plt Clumps, EDTA Hypochromasia (manual) PT INR APTT pO2 78 H VBG pH 7.29 L VBG pCO2 28 L VBG HCO3 15.8 VBG Total CO2 14.4 L VBG O2 Sat (Calc) 96.8 H VBG Base Excess -11.6 L VBG Potassium 8.0 H* Glucose 184 H Lactate 1.3 FiO2 Crit Value Called To Renny broderick do Crit Value Called By José Miguel jain cement mixer Crit Value Read Back Y Blood Gas Notified Time 1755 Sodium 156 H 150.0 H Potassium 8.0 H* D Chloride 114 H 117.0 H Carbon Dioxide 9 L* D Anion Gap 40 H BUN 219 H* D Creatinine 10.7 H* D Est GFR ( Amer) 6 Est GFR (Non-Af Amer) 5 POC Glucose (mg/dL) Random Glucose 195 H Serum Osmolality Lactic Acid Calcium 11.1 H Phosphorus 12.0 H Magnesium 4.2 H Total Bilirubin 0.7 AST 55 ALT 68 Alkaline Phosphatase 322 H D Ammonia 17 Total Creatine Kinase CK-MB (Mass) Troponin I NT-Pro-B Natriuret Pep Total Protein 9.9 H Albumin 4.2 Globulin 5.8 H Albumin/Globulin Ratio 0.7 L TSH 3rd Generation Venous Blood Potassium 8.0 H* Urine Color Urine Clarity Urine pH Ur Specific [place] Urine Protein Urine Glucose (UA) Urine Ketones Urine Blood Urine Nitrate Urine Bilirubin Urine Urobilinogen Ur Leukocyte Esterase Urine WBC (Auto) Urine RBC (Auto) Urine WBC Clumps (Auto) Urine Osmolality Ur Random Creatinine Ur Random Sodium Ur Random Urea Nitrogn Urine Opiates Screen Urine Methadone Screen Ur Barbiturates Screen Valproic Acid Ur Phencyclidine Scrn Ur Amphetamines Screen U Benzodiazepines Scrn U Oth Cocaine Metabols U Cannabinoids Screen 01/13/18 01/13/18 01/13/18 18:47 19:42 19:53 WBC RBC Hgb Hct MCV MCH MCHC RDW Plt Count MPV Neut % (Auto) Lymph % (Auto) Pope % (Auto) Eos % (Auto) Baso % (Auto) Neut # (Auto) Lymph # (Auto) Pope # (Auto) Eos # (Auto) Baso # (Auto) Neutrophils % (Manual) Band Neutrophils % Lymphocytes % (Manual) Monocytes % (Manual) Eosinophils % (Manual) Platelet Estimate Plt Clumps, EDTA Hypochromasia (manual) PT INR APTT pO2 VBG pH VBG pCO2 VBG HCO3 VBG Total CO2 VBG O2 Sat (Calc) VBG Base Excess VBG Potassium Glucose Lactate FiO2 Crit Value Called To Crit Value Called By Crit Value Read Back Blood Gas Notified Time Sodium 153 H Potassium 5.7 H Chloride 116 H Carbon Dioxide 15 L Anion Gap 27 H BUN 212 H* Creatinine 9.0 H* Est GFR ( Amer) 7 Est GFR (Non-Af Amer) 6 POC Glucose (mg/dL) Random Glucose 294 H Serum Osmolality Lactic Acid Calcium 9.0 Phosphorus Magnesium Total Bilirubin 0.6 AST 38 ALT 43 Alkaline Phosphatase 216 H D Ammonia Total Creatine Kinase CK-MB (Mass) Troponin I NT-Pro-B Natriuret Pep Total Protein 7.2 Albumin 3.3 L D Globulin 3.9 Albumin/Globulin Ratio 0.9 L TSH 3rd Generation Venous Blood Potassium Urine Color No Urine Clarity Turbid Urine pH 6.0 Ur Specific [place] 1.015 Urine Protein 2+ H Urine Glucose (UA) Normal Urine Ketones Negative Urine Blood 3+ H Urine Nitrate Negative Urine Bilirubin Negative Urine Urobilinogen Normal Ur Leukocyte Esterase 3+ H Urine WBC (Auto) 2628 H Urine RBC (Auto) 78 H Urine WBC Clumps (Auto) Many H Urine Osmolality 475 Ur Random Creatinine 94.0 Ur Random Sodium 64 Ur Random Urea Nitrogn 476 Urine Opiates Screen Negative Urine Methadone Screen Negative Ur Barbiturates Screen Negative Valproic Acid Ur Phencyclidine Scrn Negative Ur Amphetamines Screen Negative U Benzodiazepines Scrn Negative U Oth Cocaine Metabols Negative U Cannabinoids Screen Negative 01/13/18 01/13/18 01/13/18 20:20 20:30 21:10 WBC RBC Hgb Hct MCV MCH MCHC RDW Plt Count MPV Neut % (Auto) Lymph % (Auto) Pope % (Auto) Eos % (Auto) Baso % (Auto) Neut # (Auto) Lymph # (Auto) Pope # (Auto) Eos # (Auto) Baso # (Auto) Neutrophils % (Manual) Band Neutrophils % Lymphocytes % (Manual) Monocytes % (Manual) Eosinophils % (Manual) Platelet Estimate Plt Clumps, EDTA Hypochromasia (manual) PT INR APTT pO2 19 L VBG pH 7.24 L VBG pCO2 42 VBG HCO3 15.8 VBG Total CO2 19.3 L VBG O2 Sat (Calc) 41.6 VBG Base Excess -9.0 L VBG Potassium 5.9 H Glucose 225 H Lactate 2.0 FiO2 21.0 Crit Value Called To Crit Value Called By Crit Value Read Back Blood Gas Notified Time Sodium 153.0 H Potassium Chloride 122.0 H Carbon Dioxide Anion Gap BUN Creatinine Est GFR ( Amer) Est GFR (Non-Af Amer) POC Glucose (mg/dL) Random Glucose Serum Osmolality Lactic Acid Calcium Phosphorus Magnesium Total Bilirubin AST ALT Alkaline Phosphatase Ammonia 22 D Total Creatine Kinase 1091 H CK-MB (Mass) 2.69 Troponin I 0.0730 NT-Pro-B Natriuret Pep Total Protein Albumin Globulin Albumin/Globulin Ratio TSH 3rd Generation Venous Blood Potassium 5.9 H Urine Color Urine Clarity Urine pH Ur Specific [place] Urine Protein Urine Glucose (UA) Urine Ketones Urine Blood Urine Nitrate Urine Bilirubin Urine Urobilinogen Ur Leukocyte Esterase Urine WBC (Auto) Urine RBC (Auto) Urine WBC Clumps (Auto) Urine Osmolality Ur Random Creatinine Ur Random Sodium Ur Random Urea Nitrogn Urine Opiates Screen Urine Methadone Screen Ur Barbiturates Screen Valproic Acid Ur Phencyclidine Scrn Ur Amphetamines Screen U Benzodiazepines Scrn U Oth Cocaine Metabols U Cannabinoids Screen 01/13/18 01/13/18 01/13/18 21:12 21:12 22:34 WBC RBC Hgb Hct MCV MCH MCHC RDW Plt Count MPV Neut % (Auto) Lymph % (Auto) Pope % (Auto) Eos % (Auto) Baso % (Auto) Neut # (Auto) Lymph # (Auto) Pope # (Auto) Eos # (Auto) Baso # (Auto) Neutrophils % (Manual) Band Neutrophils % Lymphocytes % (Manual) Monocytes % (Manual) Eosinophils % (Manual) Platelet Estimate Plt Clumps, EDTA Hypochromasia (manual) PT INR APTT pO2 VBG pH VBG pCO2 VBG HCO3 VBG Total CO2 VBG O2 Sat (Calc) VBG Base Excess VBG Potassium Glucose Lactate FiO2 Crit Value Called To Crit Value Called By Crit Value Read Back Blood Gas Notified Time Sodium Potassium Chloride Carbon Dioxide Anion Gap BUN Creatinine Est GFR ( Amer) Est GFR (Non-Af Amer) POC Glucose (mg/dL) Random Glucose Serum Osmolality Lactic Acid 1.9 1.7 Calcium Phosphorus Magnesium Total Bilirubin AST ALT Alkaline Phosphatase Ammonia Total Creatine Kinase CK-MB (Mass) Troponin I NT-Pro-B Natriuret Pep Total Protein Albumin Globulin Albumin/Globulin Ratio TSH 3rd Generation Venous Blood Potassium Urine Color Urine Clarity Urine pH Ur Specific [place] Urine Protein Urine Glucose (UA) Urine Ketones Urine Blood Urine Nitrate Urine Bilirubin Urine Urobilinogen Ur Leukocyte Esterase Urine WBC (Auto) Urine RBC (Auto) Urine WBC Clumps (Auto) Urine Osmolality Ur Random Creatinine Ur Random Sodium Ur Random Urea Nitrogn Urine Opiates Screen Urine Methadone Screen Ur Barbiturates Screen Valproic Acid < 10.0 L Ur Phencyclidine Scrn Ur Amphetamines Screen U Benzodiazepines Scrn U Oth Cocaine Metabols U Cannabinoids Screen 01/13/18 01/13/18 22:34 22:34 WBC RBC Hgb Hct MCV MCH MCHC RDW Plt Count MPV Neut % (Auto) Lymph % (Auto) Pope % (Auto) Eos % (Auto) Baso % (Auto) Neut # (Auto) Lymph # (Auto) Pope # (Auto) Eos # (Auto) Baso # (Auto) Neutrophils % (Manual) Band Neutrophils % Lymphocytes % (Manual) Monocytes % (Manual) Eosinophils % (Manual) Platelet Estimate Plt Clumps, EDTA Hypochromasia (manual) PT INR APTT pO2 VBG pH VBG pCO2 VBG HCO3 VBG Total CO2 VBG O2 Sat (Calc) VBG Base Excess VBG Potassium Glucose Lactate FiO2 Crit Value Called To Crit Value Called By Crit Value Read Back Blood Gas Notified Time Sodium Potassium Chloride Carbon Dioxide Anion Gap BUN Creatinine Est GFR ( Amer) Est GFR (Non-Af Amer) POC Glucose (mg/dL) Random Glucose Serum Osmolality 410 H Lactic Acid Calcium Phosphorus Magnesium Total Bilirubin AST ALT Alkaline Phosphatase Ammonia Total Creatine Kinase CK-MB (Mass) Troponin I NT-Pro-B Natriuret Pep 8010 H Total Protein Albumin Globulin Albumin/Globulin Ratio TSH 3rd Generation 2.63 Venous Blood Potassium Urine Color Urine Clarity Urine pH Ur Specific [place] Urine Protein Urine Glucose (UA) Urine Ketones Urine Blood Urine Nitrate Urine Bilirubin Urine Urobilinogen Ur Leukocyte Esterase Urine WBC (Auto) Urine RBC (Auto) Urine WBC Clumps (Auto) Urine Osmolality Ur Random Creatinine Ur Random Sodium Ur Random Urea Nitrogn Urine Opiates Screen Urine Methadone Screen Ur Barbiturates Screen Valproic Acid Ur Phencyclidine Scrn Ur Amphetamines Screen U Benzodiazepines Scrn U Oth Cocaine Metabols U Cannabinoids Screen - EKG Data EKG shows normal: Sinus rhythm Rate: Tachycardia Assessment & Plan - Assessment and Plan (Free Text) Assessment: -Hyperpotassmia:will start with IV calcium gluconate, oral kayexelate, IV glucose and IV insulin + IV bicarb, obtain urine osmol, US abdomen and urine lytes JOY:suspeect acute on chronic renal failure:base line creatinine ~2.5 -AMS;uremia -Leukocytosis: likely sepsis, kendrick culture, start doxycycline, zosyn 2.25 q8hrs and serial lactic, source likely urine -Chronic systolic heart failure: check echo, BNP and trop q8hrs, repeat EKG, not a candidate for ACEi nd renal failure -dvt ppx heparin sq -BGM q6hrs, IS aspart -Hypernatremia/hyperosmolar state- suspect 2nd dehydration, will start oral diet when mental statu more awake -PUD ppx protonix -will keep NPO until mental status improves -AMS: check utox, patient was on valproic acid, check level -US abdomen pending patient's has significant electrolyte imbalance requring ICU monitoring. cc time 50 minutes Multiple diagnostic testing pending. Prognosis poor - Date & Time Date: 01/13/18 Time: 22:00
[2018-01-14] MEDS: Meropenem 500 MG in Sodium Chloride 0.9% 100 ML IVPB SCH (01:25)
[2018-01-14] MEDS ORDERED: Piperacillin/Tazobact 2.25 gm Inj IV SCH (01:30)
[2018-01-14] MEDS: Sodium Chloride 0.45% 1,000 ML IV SCH ×2 (02:25→22:44)
[2018-01-14] MEDS: Sodium Bicarbonate 8.4% 150 MEQ in Dextrose 5% In Water 1,000 ML IV SCH ×2 (02:35→12:18)
[2018-01-14 06:32] LABS: CK-MB 2.93 ng/mL (0.0-3.38); TROPONIN I 0.071 ng/mL (0.00-0.120)
[2018-01-14 06:43] LABS: ALB/GLOB RATIO 0.9 (1.0-2.1); ALBUMIN 3.5 g/dL (3.5-5.0); CALCIUM 9.1 mg/dl (8.6-10.4)
[2018-01-14 06:44] LABS: BASO % 0.1 % (0.0-2.0); EOS # 0.2 K/uL (0.0-0.7); EOS % 1.7 % (0.0-4.0); LYMPH # 0.8 K/uL (1.0-4.3); LYMPH % 8.5 % (20.0-40.0); MEAN CELL VOLUME 82.2 fL (80.0-94.0); MEAN CORPUSCULAR HEMOGLOBIN 26.2 pg (27.0-31.0); MEAN CORPUSCULAR HGB CONC 31.9 g/dL (33.0-37.0); MEAN PLATELET VOLUME 7.7 fL (7.2-11.7); MONO # 0.5 K/uL (0.0-0.8); MONO % 5.2 % (0.0-10.0); NEUT # 8.3 K/uL (1.8-7.0); NEUT % 84.5 % (50.0-75.0); PLATELET COUNT 448 K/uL (130-400); RED CELL DISTRIBUTION WIDTH 17.2 % (11.5-14.5); WHITE BLOOD COUNT 9.8 K/uL (4.8-10.8)
[2018-01-14] MEDS: (Novolog) Insulin Aspart, Recombinant 100 u/ml 10 ml vial SC SCH ×3 (06:50→18:15)
[2018-01-14 06:53] LABS: HEMOGLOBIN 8.1 g/dL (12.0-18.0)
[2018-01-14 07:15] LABS: BASO % 0.4 % (0.0-2.0); EOS # 0.2 K/uL (0.0-0.7); EOS % 1.6 % (0.0-4.0); HEMOGLOBIN 8.2 g/dL (12.0-18.0); LYMPH # 1.2 K/uL (1.0-4.3); LYMPH % 11.9 % (20.0-40.0); MEAN CELL VOLUME 82.7 fL (80.0-94.0); MEAN CORPUSCULAR HEMOGLOBIN 26.5 pg (27.0-31.0); MEAN PLATELET VOLUME 7.5 fL (7.2-11.7); MONO # 0.6 K/uL (0.0-0.8); MONO % 5.8 % (0.0-10.0); NEUT # 8.4 K/uL (1.8-7.0); NEUT % 80.3 % (50.0-75.0); RBC 3.11 Mil/uL (4.40-5.90); RED CELL DISTRIBUTION WIDTH 17.2 % (11.5-14.5); WHITE BLOOD COUNT 10.5 K/uL (4.8-10.8)
--- NOTE | 2018-01-14 08:23 | US ---
Abdominal ultrasound History: Abdominal pain. Comparison: None available. Technique: Real-time sonography was performed through the abdomen. Findings: Liver: 18.5 centimeters in length. Increased echogenicity of the hepatic parenchymal cortex suggestive for fatty infiltration versus hepatic parenchymal disease. Clinical correlation. Gallbladder: No calculi or sludge. Top normal wall thickness of 3 millimeters. Negative sonographic Voss's sign. Common bile duct measures 3.8 millimeters, within normal limits. Limited visualization of the pancreas. Spleen measures 10.9 centimeters in length, within normal limits. Limited visualization of the aorta and IVC. Mildly ectatic abdominal aorta noted distally measuring up to 2.9 centimeters. Right kidney: 10.7 x 4.2 x 4.2 centimeters. No calculi or hydronephrosis. Lower pole hypoechoic cysts measuring 1.4 x 2.0 x 1.9 centimeters and 1.4 x 1.3 x 1.4 centimeters. Left Kidney: 10.7 x 5.3 x 4.7 centimeters. No calculi or hydronephrosis. Mid to upper pole hypoechoic cyst measuring 2.2 x 2.3 x 2.3 centimeters. Impression: Limited study secondary to portable technique. Increased echogenicity of the hepatic parenchymal cortex suggestive for fatty infiltration versus hepatic parenchymal disease. Clinical correlation. Top normal wall thickness of the gallbladder measuring 3 millimeters. Clinical correlation. Limited visualization of the pancreas. Mildly ectatic and prominent distal abdominal aorta measuring up to 2.9 centimeters. Clinical correlation. Bilateral renal cysts. These findings were preliminarily reported at 11:41 p.m. on 01/13/[address] Shanell Moore from [facility].
[2018-01-14 08:36] LABS: ANISOCYTOSIS SLIGHT; HYPOCHROMIC SLIGHT; LYMPHOCYTE 9 % (20-40); MONOCYTE 5 % (0-10); NEUTROPHIL 85 % (50-75); PLATELET ESTIMATE SLIGHTLY INCREASED (NORMAL); REACTIVE LYMPHOCYTES 1 % (0-0); TOTAL CELLS COUNTED 100
--- NOTE | 2018-01-14 09:04 | CP.CCUPN ---
CCU Subjective - Physician Review Subjective (Free Text): 01/14/18 13:08 ICU Progress note Patient seen and examined at bedside. Unable to get history from patient, unsure if secondary to patient's history of dementia. 01/14/18 17:17 CCU Objective - Vital Signs / Intake & Output Vital Signs (Last 4 hours): Vital Signs Pulse Resp BP Pulse Ox 01/14/18 07:01 92/53 L 01/14/18 07:00 130 H 23 100 01/14/18 06:01 131 H 17 95/62 L 97 Intake and Output (Last 8hrs): Intake & Output 01/13/18 01/14/18 01/14/18 22:59 06:59 14:59 Intake Total 225 1075 100 Output Total 275 1975 100 Balance -50 -900 0 Weight 145 lb 11.609 oz Intake: Intake, IV Amount 225 1075 100 Left Forearm 75 475 50 Left Forearm Y-site 150 600 50 Output: Urine 275 1974 Urethral (Mendes) 275 1974 Stool 100 Other: Voiding Method Indwelling Catheter - Physical Exam Physical Exam Limitations: Positive for: Altered Mental Status, Other (History of dementia) Head: Positive for: Atraumatic, Normocephalic Pupils: Positive for: PERRL Extroacular Muscles: Positive for: Other (Unable to assess extraocular movement since patient unable to follow commands) Mouth: Positive for: Dry Neck: Positive for: Normal Range of Motion Respiratory/Chest: Positive for: Decreased Breath Sounds. Negative for: Respiratory Distress, Accessory Muscle Use Cardiovascular: Positive for: Normal S1, S2 Abdomen: Positive for: Normal Bowel Sounds, Other ((+) ostomy bag noted in right lower quadrant. no evidence of infection around ostomy site. ). Negative for: Tenderness Upper Extremity: Positive for: NORMAL PULSES, Capillary Refill < 2s Lower Extremity: Positive for: NORMAL PULSES, Capillary Refill < 2 s. Negative for: CALF TENDERNESS Skin: Positive for: Warm, Dry Psychiatric: Positive for: Other (Unable to determine since patient is demented and altered. ) - Medications Active Medications: Active Medications Generic Name Dose Route Start Last Admin Trade Name Freq PRN Reason Stop Dose Admin Heparin Sodium (Porcine) 5,000 units 01/14/18 01:45 01/14/18 02:30 Heparin SC 5,000 units Q12H NEL Administration Aztreonam 1 gm/ Sodium 100 mls @ 200 mls/hr 01/14/18 00:00 01/14/18 00:20 Chloride IVPB 200 mls/hr Q24H NEL Administration Protocol Meropenem 500 mg/ Sodium 100 mls @ 100 mls/hr 01/14/18 01:00 01/14/18 01:25 Chloride IVPB 100 mls/hr Q24H NEL Administration Protocol Sodium Chloride 1,000 mls @ 50 mls/hr 01/14/18 01:45 01/14/18 02:25 Sodium Chloride 0.45% IV 50 mls/hr .Q20H NEL Administration Sodium Bicarbonate 150 meq/ 1,150 mls @ 50 mls/hr 01/14/18 02:36 01/14/18 02: 35 Dextrose IV 50 mls/hr .Q23H NEL Administration Insulin Aspart 0 unit 01/14/18 06:00 01/14/18 06:50 Novolog SC 2 u Q6 NEL Administration Protocol Pantoprazole Sodium 40 mg 01/14/18 01:45 01/14/18 02:30 Protonix Inj IVP 40 mg Q12H NEL Administration Tamsulosin HCl 0.4 mg 01/14/18 10:00 Flomax PO DAILY NEL - Patient Studies Lab Studies: Lab Studies 01/14/18 01/14/18 01/14/18 Range/Units 07:06 06:05 06:02 WBC 10.5 9.8 (4.8-10.8) K/uL RBC 3.11 L 3.10 L (4.40-5.90) Mil/uL Hgb 8.2 L 8.1 L D (12.0-18.0) g/dL Hct 25.7 L 25.5 L (35.0-51.0) % MCV 82.7 82.2 (80.0-94.0) fL MCH 26.5 L 26.2 L (27.0-31.0) pg MCHC 32.0 L 31.9 L (33.0-37.0) g/dL RDW 17.2 H 17.2 H (11.5-14.5) % Plt Count 470 H 448 H D (130-400) K/uL MPV 7.5 7.7 (7.2-11.7) fL Neut % (Auto) 80.3 H 84.5 H (50.0-75.0) % Lymph % (Auto) 11.9 L 8.5 L (20.0-40.0) % Tyrrell % (Auto) 5.8 5.2 (0.0-10.0) % Eos % (Auto) 1.6 1.7 (0.0-4.0) % Baso % (Auto) 0.4 0.1 (0.0-2.0) % Neut # (Auto) 8.4 H 8.3 H (1.8-7.0) K/uL Lymph # (Auto) 1.2 0.8 L (1.0-4.3) K/uL Tyrrell # (Auto) 0.6 0.5 (0.0-0.8) K/uL Eos # (Auto) 0.2 0.2 (0.0-0.7) K/uL Baso # (Auto) 0.0 0.0 (0.0-0.2) K/uL Neutrophils % (Manual) 85 H (50-75) % Band Neutrophils % (0-2) % Lymphocytes % (Manual) 9 L (20-40) % Reactive Lymphs % 1 H (0-0) % Monocytes % (Manual) 5 (0-10) % Eosinophils % (Manual) (0-4) % Platelet Estimate Slightly increased H (NORMAL) Plt Clumps, EDTA Hypochromasia (manual) Slight Anisocytosis (manual) Slight PT (9.7-12.2) SECONDS INR APTT (21-34) SECONDS pO2 (30-55) mm/Hg VBG pH (7.32-7.43) VBG pCO2 (40-60) mmHg VBG HCO3 mmol/L VBG Total CO2 (22-28) mmol/L VBG O2 Sat (Calc) (40-65) % VBG Base Excess (0.0-2.0) mmol/L VBG Potassium (3.6-5.2) mmol/L Glucose (75-110) mg/dl Lactate (0.7-2.1) mmol/L FiO2 % Crit Value Called To Crit Value Called By Crit Value Read Back Blood Gas Notified Time Sodium (132-148) mmol/L Potassium (3.6-5.2) mmol/L Chloride (98-107) mmol/L Carbon Dioxide (22-30) mmol/L Anion Gap (10-20) BUN (9-20) mg/dL Creatinine (0.8-1.5) mg/dL Est GFR ( Amer) Est GFR (Non-Af Amer) POC Glucose (mg/dL) (65-110) mg/dL Random Glucose (75-110) mg/dL Serum Osmolality (272-300) mosm/kg Lactic Acid 1.4 (0.7-2.1) mmol/L Calcium (8.6-10.4) mg/dl Phosphorus (2.5-4.5) mg/dL Magnesium (1.6-2.3) mg/dL Total Bilirubin (0.2-1.3) mg/dL AST (17-59) U/L ALT (21-72) U/L Alkaline Phosphatase (38-126) U/L Ammonia (9-33) umol/L Total Creatine Kinase (55-170) U/L CK-MB (Mass) (0.0-3.38) ng/mL Troponin I (0.00-0.120) ng/mL NT-Pro-B Natriuret Pep (0-900) pg/mL Total Protein (6.3-8.3) g/dL Albumin (3.5-5.0) g/dL Globulin (2.2-3.9) gm/dL Albumin/Globulin Ratio (1.0-2.1) TSH 3rd Generation (0.46-4.68) mIU/L Venous Blood Potassium (3.6-5.2) mmol/L Urine Color (YELLOW) Urine Clarity (Clear) Urine pH (5.0-8.0) Ur Specific Morgan (1.003-1.030) Urine Protein (NEGATIVE) mg/dL Urine Glucose (UA) (Normal) mg/dL Urine Ketones (NEGATIVE) mg/dL Urine Blood (NEGATIVE) Urine Nitrate (NEGATIVE) Urine Bilirubin (NEGATIVE) Urine Urobilinogen (0.2-1.0) mg/dL Ur Leukocyte Esterase (Negative) Shazia/uL Urine WBC (Auto) (0-5) /hpf Urine RBC (Auto) (0-3) /hpf Urine WBC Clumps (Auto) (NONE) /hpf Urine Osmolality (300-1000) mosm/kg Ur Random Creatinine mg/dL Ur Random Sodium mmol/L Ur Random Urea Nitrogn mg/dL Urine Opiates Screen (NEGATIVE) Urine Methadone Screen (NEGATIVE) Ur Barbiturates Screen (NEGATIVE) Valproic Acid (50.0-100.0) ug/mL Ur Phencyclidine Scrn (NEGATIVE) Ur Amphetamines Screen (NEGATIVE) U Benzodiazepines Scrn (NEGATIVE) U Oth Cocaine Metabols (NEGATIVE) U Cannabinoids Screen (NEGATIVE) 01/14/18 01/13/18 01/13/18 Range/Units 06:01 22:34 22:34 WBC (4.8-10.8) K/uL RBC (4.40-5.90) Mil/uL Hgb (12.0-18.0) g/dL Hct (35.0-51.0) % MCV (80.0-94.0) fL MCH (27.0-31.0) pg MCHC (33.0-37.0) g/dL RDW (11.5-14.5) % Plt Count (130-400) K/uL MPV (7.2-11.7) fL Neut % (Auto) (50.0-75.0) % Lymph % (Auto) (20.0-40.0) % Tyrrell % (Auto) (0.0-10.0) % Eos % (Auto) (0.0-4.0) % Baso % (Auto) (0.0-2.0) % Neut # (Auto) (1.8-7.0) K/uL Lymph # (Auto) (1.0-4.3) K/uL Tyrrell # (Auto) (0.0-0.8) K/uL Eos # (Auto) (0.0-0.7) K/uL Baso # (Auto) (0.0-0.2) K/uL Neutrophils % (Manual) (50-75) % Band Neutrophils % (0-2) % Lymphocytes % (Manual) (20-40) % Reactive Lymphs % (0-0) % Monocytes % (Manual) (0-10) % Eosinophils % (Manual) (0-4) % Platelet Estimate (NORMAL) Plt Clumps, EDTA Hypochromasia (manual) Anisocytosis (manual) PT (9.7-12.2) SECONDS INR APTT (21-34) SECONDS pO2 (30-55) mm/Hg VBG pH (7.32-7.43) VBG pCO2 (40-60) mmHg VBG HCO3 mmol/L VBG Total CO2 (22-28) mmol/L VBG O2 Sat (Calc) (40-65) % VBG Base Excess (0.0-2.0) mmol/L VBG Potassium (3.6-5.2) mmol/L Glucose (75-110) mg/dl Lactate (0.7-2.1) mmol/L FiO2 % Crit Value Called To Crit Value Called By Crit Value Read Back Blood Gas Notified Time Sodium 159 H (132-148) mmol/L Potassium 4.9 (3.6-5.2) mmol/L Chloride 119 H (98-107) mmol/L Carbon Dioxide 19 L (22-30) mmol/L Anion Gap 25 H (10-20) BUN 179 H* (9-20) mg/dL Creatinine 7.6 H* (0.8-1.5) mg/dL Est GFR ( Amer) 9 Est GFR (Non-Af Amer) 7 POC Glucose (mg/dL) (65-110) mg/dL Random Glucose 251 H (75-110) mg/dL Serum Osmolality 410 H (272-300) mosm/kg Lactic Acid (0.7-2.1) mmol/L Calcium 9.1 (8.6-10.4) mg/dl Phosphorus 8.2 H (2.5-4.5) mg/dL Magnesium 3.1 H (1.6-2.3) mg/dL Total Bilirubin 0.5 (0.2-1.3) mg/dL AST 66 H D (17-59) U/L ALT 47 (21-72) U/L Alkaline Phosphatase 212 H (38-126) U/L Ammonia (9-33) umol/L Total Creatine Kinase 977 H (55-170) U/L CK-MB (Mass) 2.93 (0.0-3.38) ng/mL Troponin I 0.0710 (0.00-0.120) ng/mL NT-Pro-B Natriuret Pep 8010 H (0-900) pg/mL Total Protein 7.5 (6.3-8.3) g/dL Albumin 3.5 (3.5-5.0) g/dL Globulin 4.0 H (2.2-3.9) gm/dL Albumin/Globulin Ratio 0.9 L (1.0-2.1) TSH 3rd Generation 2.63 (0.46-4.68) mIU/L Venous Blood Potassium (3.6-5.2) mmol/L Urine Color (YELLOW) Urine Clarity (Clear) Urine pH (5.0-8.0) Ur Specific Morgan (1.003-1.030) Urine Protein (NEGATIVE) mg/dL Urine Glucose (UA) (Normal) mg/dL Urine Ketones (NEGATIVE) mg/dL Urine Blood (NEGATIVE) Urine Nitrate (NEGATIVE) Urine Bilirubin (NEGATIVE) Urine Urobilinogen (0.2-1.0) mg/dL Ur Leukocyte Esterase (Negative) Shazia/uL Urine WBC (Auto) (0-5) /hpf Urine RBC (Auto) (0-3) /hpf Urine WBC Clumps (Auto) (NONE) /hpf Urine Osmolality (300-1000) mosm/kg Ur Random Creatinine mg/dL Ur Random Sodium mmol/L Ur Random Urea Nitrogn mg/dL Urine Opiates Screen (NEGATIVE) Urine Methadone Screen (NEGATIVE) Ur Barbiturates Screen (NEGATIVE) Valproic Acid (50.0-100.0) ug/mL Ur Phencyclidine Scrn (NEGATIVE) Ur Amphetamines Screen (NEGATIVE) U Benzodiazepines Scrn (NEGATIVE) U Oth Cocaine Metabols (NEGATIVE) U Cannabinoids Screen (NEGATIVE) 01/13/18 01/13/18 01/13/18 Range/Units 22:34 21:12 21:12 WBC (4.8-10.8) K/uL RBC (4.40-5.90) Mil/uL Hgb (12.0-18.0) g/dL Hct (35.0-51.0) % MCV (80.0-94.0) fL MCH (27.0-31.0) pg MCHC (33.0-37.0) g/dL RDW (11.5-14.5) % Plt Count (130-400) K/uL MPV (7.2-11.7) fL Neut % (Auto) (50.0-75.0) % Lymph % (Auto) (20.0-40.0) % Tyrrell % (Auto) (0.0-10.0) % Eos % (Auto) (0.0-4.0) % Baso % (Auto) (0.0-2.0) % Neut # (Auto) (1.8-7.0) K/uL Lymph # (Auto) (1.0-4.3) K/uL Tyrrell # (Auto) (0.0-0.8) K/uL Eos # (Auto) (0.0-0.7) K/uL Baso # (Auto) (0.0-0.2) K/uL Neutrophils % (Manual) (50-75) % Band Neutrophils % (0-2) % Lymphocytes % (Manual) (20-40) % Reactive Lymphs % (0-0) % Monocytes % (Manual) (0-10) % Eosinophils % (Manual) (0-4) % Platelet Estimate (NORMAL) Plt Clumps, EDTA Hypochromasia (manual) Anisocytosis (manual) PT (9.7-12.2) SECONDS INR APTT (21-34) SECONDS pO2 (30-55) mm/Hg VBG pH (7.32-7.43) VBG pCO2 (40-60) mmHg VBG HCO3 mmol/L VBG Total CO2 (22-28) mmol/L VBG O2 Sat (Calc) (40-65) % VBG Base Excess (0.0-2.0) mmol/L VBG Potassium (3.6-5.2) mmol/L Glucose (75-110) mg/dl Lactate (0.7-2.1) mmol/L FiO2 % Crit Value Called To Crit Value Called By Crit Value Read Back Blood Gas Notified Time Sodium (132-148) mmol/L Potassium (3.6-5.2) mmol/L Chloride (98-107) mmol/L Carbon Dioxide (22-30) mmol/L Anion Gap (10-20) BUN (9-20) mg/dL Creatinine (0.8-1.5) mg/dL Est GFR ( Amer) Est GFR (Non-Af Amer) POC Glucose (mg/dL) (65-110) mg/dL Random Glucose (75-110) mg/dL Serum Osmolality (272-300) mosm/kg Lactic Acid 1.7 1.9 (0.7-2.1) mmol/L Calcium (8.6-10.4) mg/dl Phosphorus (2.5-4.5) mg/dL Magnesium (1.6-2.3) mg/dL Total Bilirubin (0.2-1.3) mg/dL AST (17-59) U/L ALT (21-72) U/L Alkaline Phosphatase (38-126) U/L Ammonia (9-33) umol/L Total Creatine Kinase (55-170) U/L CK-MB (Mass) (0.0-3.38) ng/mL Troponin I (0.00-0.120) ng/mL NT-Pro-B Natriuret Pep (0-900) pg/mL Total Protein (6.3-8.3) g/dL Albumin (3.5-5.0) g/dL Globulin (2.2-3.9) gm/dL Albumin/Globulin Ratio (1.0-2.1) TSH 3rd Generation (0.46-4.68) mIU/L Venous Blood Potassium (3.6-5.2) mmol/L Urine Color (YELLOW) Urine Clarity (Clear) Urine pH (5.0-8.0) Ur Specific Morgan (1.003-1.030) Urine Protein (NEGATIVE) mg/dL Urine Glucose (UA) (Normal) mg/dL Urine Ketones (NEGATIVE) mg/dL Urine Blood (NEGATIVE) Urine Nitrate (NEGATIVE) Urine Bilirubin (NEGATIVE) Urine Urobilinogen (0.2-1.0) mg/dL Ur Leukocyte Esterase (Negative) Shazia/uL Urine WBC (Auto) (0-5) /hpf Urine RBC (Auto) (0-3) /hpf Urine WBC Clumps (Auto) (NONE) /hpf Urine Osmolality (300-1000) mosm/kg Ur Random Creatinine mg/dL Ur Random Sodium mmol/L Ur Random Urea Nitrogn mg/dL Urine Opiates Screen (NEGATIVE) Urine Methadone Screen (NEGATIVE) Ur Barbiturates Screen (NEGATIVE) Valproic Acid < 10.0 L (50.0-100.0) ug/mL Ur Phencyclidine Scrn (NEGATIVE) Ur Amphetamines Screen (NEGATIVE) U Benzodiazepines Scrn (NEGATIVE) U Oth Cocaine Metabols (NEGATIVE) U Cannabinoids Screen (NEGATIVE) 08/30/18 08/30/18 08/30/18 Range/Units 21:10 20:30 20:20 WBC (4.8-10.8) K/uL RBC (4.40-5.90) Mil/uL Hgb (12.0-18.0) g/dL Hct (35.0-51.0) % MCV (80.0-94.0) fL MCH (27.0-31.0) pg MCHC (33.0-37.0) g/dL RDW (11.5-14.5) % Plt Count (130-400) K/uL MPV (7.2-11.7) fL Neut % (Auto) (50.0-75.0) % Lymph % (Auto) (20.0-40.0) % Tyrrell % (Auto) (0.0-10.0) % Eos % (Auto) (0.0-4.0) % Baso % (Auto) (0.0-2.0) % Neut # (Auto) (1.8-7.0) K/uL Lymph # (Auto) (1.0-4.3) K/uL Tyrrell # (Auto) (0.0-0.8) K/uL Eos # (Auto) (0.0-0.7) K/uL Baso # (Auto) (0.0-0.2) K/uL Neutrophils % (Manual) (50-75) % Band Neutrophils % (0-2) % Lymphocytes % (Manual) (20-40) % Reactive Lymphs % (0-0) % Monocytes % (Manual) (0-10) % Eosinophils % (Manual) (0-4) % Platelet Estimate (NORMAL) Plt Clumps, EDTA Hypochromasia (manual) Anisocytosis (manual) PT (9.7-12.2) SECONDS INR APTT (21-34) SECONDS pO2 19 L (30-55) mm/Hg VBG pH 7.24 L (7.32-7.43) VBG pCO2 42 (40-60) mmHg VBG HCO3 15.8 mmol/L VBG Total CO2 19.3 L (22-28) mmol/L VBG O2 Sat (Calc) 41.6 (40-65) % VBG Base Excess -9.0 L (0.0-2.0) mmol/L VBG Potassium 5.9 H (3.6-5.2) mmol/L Glucose 225 H (75-110) mg/dl Lactate 2.0 (0.7-2.1) mmol/L FiO2 21.0 % Crit Value Called To Crit Value Called By Crit Value Read Back Blood Gas Notified Time Sodium 153.0 H (132-148) mmol/L Potassium (3.6-5.2) mmol/L Chloride 122.0 H (98-107) mmol/L Carbon Dioxide (22-30) mmol/L Anion Gap (10-20) BUN (9-20) mg/dL Creatinine (0.8-1.5) mg/dL Est GFR ( Amer) Est GFR (Non-Af Amer) POC Glucose (mg/dL) (65-110) mg/dL Random Glucose (75-110) mg/dL Serum Osmolality (272-300) mosm/kg Lactic Acid (0.7-2.1) mmol/L Calcium (8.6-10.4) mg/dl Phosphorus (2.5-4.5) mg/dL Magnesium (1.6-2.3) mg/dL Total Bilirubin (0.2-1.3) mg/dL AST (17-59) U/L ALT (21-72) U/L Alkaline Phosphatase (38-126) U/L Ammonia 22 D (9-33) umol/L Total Creatine Kinase 1091 H (55-170) U/L CK-MB (Mass) 2.69 (0.0-3.38) ng/mL Troponin I 0.0730 (0.00-0.120) ng/mL NT-Pro-B Natriuret Pep (0-900) pg/mL Total Protein (6.3-8.3) g/dL Albumin (3.5-5.0) g/dL Globulin (2.2-3.9) gm/dL Albumin/Globulin Ratio (1.0-2.1) TSH 3rd Generation (0.46-4.68) mIU/L Venous Blood Potassium 5.9 H (3.6-5.2) mmol/L Urine Color (YELLOW) Urine Clarity (Clear) Urine pH (5.0-8.0) Ur Specific Morgan (1.003-1.030) Urine Protein (NEGATIVE) mg/dL Urine Glucose (UA) (Normal) mg/dL Urine Ketones (NEGATIVE) mg/dL Urine Blood (NEGATIVE) Urine Nitrate (NEGATIVE) Urine Bilirubin (NEGATIVE) Urine Urobilinogen (0.2-1.0) mg/dL Ur Leukocyte Esterase (Negative) Shazia/uL Urine WBC (Auto) (0-5) /hpf Urine RBC (Auto) (0-3) /hpf Urine WBC Clumps (Auto) (NONE) /hpf Urine Osmolality (300-1000) mosm/kg Ur Random Creatinine mg/dL Ur Random Sodium mmol/L Ur Random Urea Nitrogn mg/dL Urine Opiates Screen (NEGATIVE) Urine Methadone Screen (NEGATIVE) Ur Barbiturates Screen (NEGATIVE) Valproic Acid (50.0-100.0) ug/mL Ur Phencyclidine Scrn (NEGATIVE) Ur Amphetamines Screen (NEGATIVE) U Benzodiazepines Scrn (NEGATIVE) U Oth Cocaine Metabols (NEGATIVE) U Cannabinoids Screen (NEGATIVE) 01/13/18 01/13/18 01/13/18 Range/Units 19:53 19:42 18:47 WBC (4.8-10.8) K/uL RBC (4.40-5.90) Mil/uL Hgb (12.0-18.0) g/dL Hct (35.0-51.0) % MCV (80.0-94.0) fL MCH (27.0-31.0) pg MCHC (33.0-37.0) g/dL RDW (11.5-14.5) % Plt Count (130-400) K/uL MPV (7.2-11.7) fL Neut % (Auto) (50.0-75.0) % Lymph % (Auto) (20.0-40.0) % Tyrrell % (Auto) (0.0-10.0) % Eos % (Auto) (0.0-4.0) % Baso % (Auto) (0.0-2.0) % Neut # (Auto) (1.8-7.0) K/uL Lymph # (Auto) (1.0-4.3) K/uL Tyrrell # (Auto) (0.0-0.8) K/uL Eos # (Auto) (0.0-0.7) K/uL Baso # (Auto) (0.0-0.2) K/uL Neutrophils % (Manual) (50-75) % Band Neutrophils % (0-2) % Lymphocytes % (Manual) (20-40) % Reactive Lymphs % (0-0) % Monocytes % (Manual) (0-10) % Eosinophils % (Manual) (0-4) % Platelet Estimate (NORMAL) Plt Clumps, EDTA Hypochromasia (manual) Anisocytosis (manual) PT (9.7-12.2) SECONDS INR APTT (21-34) SECONDS pO2 (30-55) mm/Hg VBG pH (7.32-7.43) VBG pCO2 (40-60) mmHg VBG HCO3 mmol/L VBG Total CO2 (22-28) mmol/L VBG O2 Sat (Calc) (40-65) % VBG Base Excess (0.0-2.0) mmol/L VBG Potassium (3.6-5.2) mmol/L Glucose (75-110) mg/dl Lactate (0.7-2.1) mmol/L FiO2 % Crit Value Called To Crit Value Called By Crit Value Read Back Blood Gas Notified Time Sodium 153 H (132-148) mmol/L Potassium 5.7 H (3.6-5.2) mmol/L Chloride 116 H (98-107) mmol/L Carbon Dioxide 15 L (22-30) mmol/L Anion Gap 27 H (10-20) BUN 212 H* (9-20) mg/dL Creatinine 9.0 H* (0.8-1.5) mg/dL Est GFR ( Amer) 7 Est GFR (Non-Af Amer) 6 POC Glucose (mg/dL) (65-110) mg/dL Random Glucose 294 H (75-110) mg/dL Serum Osmolality (272-300) mosm/kg Lactic Acid (0.7-2.1) mmol/L Calcium 9.0 (8.6-10.4) mg/dl Phosphorus (2.5-4.5) mg/dL Magnesium (1.6-2.3) mg/dL Total Bilirubin 0.6 (0.2-1.3) mg/dL AST 38 (17-59) U/L ALT 43 (21-72) U/L Alkaline Phosphatase 216 H D (38-126) U/L Ammonia (9-33) umol/L Total Creatine Kinase (55-170) U/L CK-MB (Mass) (0.0-3.38) ng/mL Troponin I (0.00-0.120) ng/mL NT-Pro-B Natriuret Pep (0-900) pg/mL Total Protein 7.2 (6.3-8.3) g/dL Albumin 3.3 L D (3.5-5.0) g/dL Globulin 3.9 (2.2-3.9) gm/dL Albumin/Globulin Ratio 0.9 L (1.0-2.1) TSH 3rd Generation (0.46-4.68) mIU/L Venous Blood Potassium (3.6-5.2) mmol/L Urine Color No (YELLOW) Urine Clarity Turbid (Clear) Urine pH 6.0 (5.0-8.0) Ur Specific Morgan 1.015 (1.003-1.030) Urine Protein 2+ H (NEGATIVE) mg/dL Urine Glucose (UA) Normal (Normal) mg/dL Urine Ketones Negative (NEGATIVE) mg/dL Urine Blood 3+ H (NEGATIVE) Urine Nitrate Negative (NEGATIVE) Urine Bilirubin Negative (NEGATIVE) Urine Urobilinogen Normal (0.2-1.0) mg/dL Ur Leukocyte Esterase 3+ H (Negative) Shazia/uL Urine WBC (Auto) 2628 H (0-5) /hpf Urine RBC (Auto) 78 H (0-3) /hpf Urine WBC Clumps (Auto) Many H (NONE) /hpf Urine Osmolality 475 (300-1000) mosm/kg Ur Random Creatinine 94.0 mg/dL Ur Random Sodium 64 mmol/L Ur Random Urea Nitrogn 476 mg/dL Urine Opiates Screen Negative (NEGATIVE) Urine Methadone Screen Negative (NEGATIVE) Ur Barbiturates Screen Negative (NEGATIVE) Valproic Acid (50.0-100.0) ug/mL Ur Phencyclidine Scrn Negative (NEGATIVE) Ur Amphetamines Screen Negative (NEGATIVE) U Benzodiazepines Scrn Negative (NEGATIVE) U Oth Cocaine Metabols Negative (NEGATIVE) U Cannabinoids Screen Negative (NEGATIVE) 01/13/18 01/13/18 01/13/18 Range/Units 17:45 17:42 17:42 WBC (4.8-10.8) K/uL RBC (4.40-5.90) Mil/uL Hgb (12.0-18.0) g/dL Hct (35.0-51.0) % MCV (80.0-94.0) fL MCH (27.0-31.0) pg MCHC (33.0-37.0) g/dL RDW (11.5-14.5) % Plt Count (130-400) K/uL MPV (7.2-11.7) fL Neut % (Auto) (50.0-75.0) % Lymph % (Auto) (20.0-40.0) % Tyrrell % (Auto) (0.0-10.0) % Eos % (Auto) (0.0-4.0) % Baso % (Auto) (0.0-2.0) % Neut # (Auto) (1.8-7.0) K/uL Lymph # (Auto) (1.0-4.3) K/uL Tyrrell # (Auto) (0.0-0.8) K/uL Eos # (Auto) (0.0-0.7) K/uL Baso # (Auto) (0.0-0.2) K/uL Neutrophils % (Manual) (50-75) % Band Neutrophils % (0-2) % Lymphocytes % (Manual) (20-40) % Reactive Lymphs % (0-0) % Monocytes % (Manual) (0-10) % Eosinophils % (Manual) (0-4) % Platelet Estimate (NORMAL) Plt Clumps, EDTA Hypochromasia (manual) Anisocytosis (manual) PT (9.7-12.2) SECONDS INR APTT (21-34) SECONDS pO2 78 H (30-55) mm/Hg VBG pH 7.29 L (7.32-7.43) VBG pCO2 28 L (40-60) mmHg VBG HCO3 15.8 mmol/L VBG Total CO2 14.4 L (22-28) mmol/L VBG O2 Sat (Calc) 96.8 H (40-65) % VBG Base Excess -11.6 L (0.0-2.0) mmol/L VBG Potassium 8.0 H* (3.6-5.2) mmol/L Glucose 184 H (75-110) mg/dl Lactate 1.3 (0.7-2.1) mmol/L FiO2 % Crit Value Called To Renny broderick do Crit Value Called By José Miguel jain [employer] sales specialist Crit Value Read Back Y Blood Gas Notified Time 1755 Sodium 150.0 H 156 H (132-148) mmol/L Potassium 8.0 H* D (3.6-5.2) mmol/L Chloride 117.0 H 114 H (98-107) mmol/L Carbon Dioxide 9 L* D (22-30) mmol/L Anion Gap 40 H (10-20) BUN 219 H* D (9-20) mg/dL Creatinine 10.7 H* D (0.8-1.5) mg/dL Est GFR ( Amer) 6 Est GFR (Non-Af Amer) 5 POC Glucose (mg/dL) (65-110) mg/dL Random Glucose 195 H (75-110) mg/dL Serum Osmolality (272-300) mosm/kg Lactic Acid (0.7-2.1) mmol/L Calcium 11.1 H (8.6-10.4) mg/dl Phosphorus 12.0 H (2.5-4.5) mg/dL Magnesium 4.2 H (1.6-2.3) mg/dL Total Bilirubin 0.7 (0.2-1.3) mg/dL AST 55 (17-59) U/L ALT 68 (21-72) U/L Alkaline Phosphatase 322 H D (38-126) U/L Ammonia 17 (9-33) umol/L Total Creatine Kinase (55-170) U/L CK-MB (Mass) (0.0-3.38) ng/mL Troponin I (0.00-0.120) ng/mL NT-Pro-B Natriuret Pep (0-900) pg/mL Total Protein 9.9 H (6.3-8.3) g/dL Albumin 4.2 (3.5-5.0) g/dL Globulin 5.8 H (2.2-3.9) gm/dL Albumin/Globulin Ratio 0.7 L (1.0-2.1) TSH 3rd Generation (0.46-4.68) mIU/L Venous Blood Potassium 8.0 H* (3.6-5.2) mmol/L Urine Color (YELLOW) Urine Clarity (Clear) Urine pH (5.0-8.0) Ur Specific Morgan (1.003-1.030) Urine Protein (NEGATIVE) mg/dL Urine Glucose (UA) (Normal) mg/dL Urine Ketones (NEGATIVE) mg/dL Urine Blood (NEGATIVE) Urine Nitrate (NEGATIVE) Urine Bilirubin (NEGATIVE) Urine Urobilinogen (0.2-1.0) mg/dL Ur Leukocyte Esterase (Negative) Shazia/uL Urine WBC (Auto) (0-5) /hpf Urine RBC (Auto) (0-3) /hpf Urine WBC Clumps (Auto) (NONE) /hpf Urine Osmolality (300-1000) mosm/kg Ur Random Creatinine mg/dL Ur Random Sodium mmol/L Ur Random Urea Nitrogn mg/dL Urine Opiates Screen (NEGATIVE) Urine Methadone Screen (NEGATIVE) Ur Barbiturates Screen (NEGATIVE) Valproic Acid (50.0-100.0) ug/mL Ur Phencyclidine Scrn (NEGATIVE) Ur Amphetamines Screen (NEGATIVE) U Benzodiazepines Scrn (NEGATIVE) U Oth Cocaine Metabols (NEGATIVE) U Cannabinoids Screen (NEGATIVE) 01/13/18 01/13/18 01/13/18 Range/Units 17:42 17:42 17:08 WBC 15.4 H (4.8-10.8) K/uL RBC 3.90 L (4.40-5.90) Mil/uL Hgb 10.6 L (12.0-18.0) g/dL Hct 32.4 L (35.0-51.0) % MCV 83.1 (80.0-94.0) fL MCH 27.2 (27.0-31.0) pg MCHC 32.7 L (33.0-37.0) g/dL RDW 17.2 H (11.5-14.5) % Plt Count 691 H D (130-400) K/uL MPV 7.4 (7.2-11.7) fL Neut % (Auto) 86.4 H (50.0-75.0) % Lymph % (Auto) 7.4 L (20.0-40.0) % Tyrrell % (Auto) 5.3 (0.0-10.0) % Eos % (Auto) 0.4 (0.0-4.0) % Baso % (Auto) 0.5 (0.0-2.0) % Neut # (Auto) 13.3 H (1.8-7.0) K/uL Lymph # (Auto) 1.1 (1.0-4.3) K/uL Tyrrell # (Auto) 0.8 (0.0-0.8) K/uL Eos # (Auto) 0.1 (0.0-0.7) K/uL Baso # (Auto) 0.1 (0.0-0.2) K/uL Neutrophils % (Manual) 85 H (50-75) % Band Neutrophils % 1 (0-2) % Lymphocytes % (Manual) 10 L (20-40) % Reactive Lymphs % (0-0) % Monocytes % (Manual) 3 (0-10) % Eosinophils % (Manual) 1 (0-4) % Platelet Estimate Markedly increased H (NORMAL) Plt Clumps, EDTA Present Hypochromasia (manual) Slight Anisocytosis (manual) PT 14.0 H (9.7-12.2) SECONDS INR 1.3 APTT 30 (21-34) SECONDS pO2 (30-55) mm/Hg VBG pH (7.32-7.43) VBG pCO2 (40-60) mmHg VBG HCO3 mmol/L VBG Total CO2 (22-28) mmol/L VBG O2 Sat (Calc) (40-65) % VBG Base Excess (0.0-2.0) mmol/L VBG Potassium (3.6-5.2) mmol/L Glucose (75-110) mg/dl Lactate (0.7-2.1) mmol/L FiO2 % Crit Value Called To Crit Value Called By Crit Value Read Back Blood Gas Notified Time Sodium (132-148) mmol/L Potassium (3.6-5.2) mmol/L Chloride (98-107) mmol/L Carbon Dioxide (22-30) mmol/L Anion Gap (10-20) BUN (9-20) mg/dL Creatinine (0.8-1.5) mg/dL Est GFR ( Amer) Est GFR (Non-Af Amer) POC Glucose (mg/dL) 153 H (65-110) mg/dL Random Glucose (75-110) mg/dL Serum Osmolality (272-300) mosm/kg Lactic Acid (0.7-2.1) mmol/L Calcium (8.6-10.4) mg/dl Phosphorus (2.5-4.5) mg/dL Magnesium (1.6-2.3) mg/dL Total Bilirubin (0.2-1.3) mg/dL AST (17-59) U/L ALT (21-72) U/L Alkaline Phosphatase (38-126) U/L Ammonia (9-33) umol/L Total Creatine Kinase (55-170) U/L CK-MB (Mass) (0.0-3.38) ng/mL Troponin I (0.00-0.120) ng/mL NT-Pro-B Natriuret Pep (0-900) pg/mL Total Protein (6.3-8.3) g/dL Albumin (3.5-5.0) g/dL Globulin (2.2-3.9) gm/dL Albumin/Globulin Ratio (1.0-2.1) TSH 3rd Generation (0.46-4.68) mIU/L Venous Blood Potassium (3.6-5.2) mmol/L Urine Color (YELLOW) Urine Clarity (Clear) Urine pH (5.0-8.0) Ur Specific Morgan (1.003-1.030) Urine Protein (NEGATIVE) mg/dL Urine Glucose (UA) (Normal) mg/dL Urine Ketones (NEGATIVE) mg/dL Urine Blood (NEGATIVE) Urine Nitrate (NEGATIVE) Urine Bilirubin (NEGATIVE) Urine Urobilinogen (0.2-1.0) mg/dL Ur Leukocyte Esterase (Negative) Shazia/uL Urine WBC (Auto) (0-5) /hpf Urine RBC (Auto) (0-3) /hpf Urine WBC Clumps (Auto) (NONE) /hpf Urine Osmolality (300-1000) mosm/kg Ur Random Creatinine mg/dL Ur Random Sodium mmol/L Ur Random Urea Nitrogn mg/dL Urine Opiates Screen (NEGATIVE) Urine Methadone Screen (NEGATIVE) Ur Barbiturates Screen (NEGATIVE) Valproic Acid (50.0-100.0) ug/mL Ur Phencyclidine Scrn (NEGATIVE) Ur Amphetamines Screen (NEGATIVE) U Benzodiazepines Scrn (NEGATIVE) U Oth Cocaine Metabols (NEGATIVE) U Cannabinoids Screen (NEGATIVE) Laboratory Results - last 24 hr 01/13/18 01/13/18 01/13/18 17:08 17:42 17:42 WBC 15.4 H RBC 3.90 L Hgb 10.6 L Hct 32.4 L MCV 83.1 MCH 27.2 MCHC 32.7 L RDW 17.2 H Plt Count 691 H D MPV 7.4 Neut % (Auto) 86.4 H Lymph % (Auto) 7.4 L Tyrrell % (Auto) 5.3 Eos % (Auto) 0.4 Baso % (Auto) 0.5 Neut # (Auto) 13.3 H Lymph # (Auto) 1.1 Tyrrell # (Auto) 0.8 Eos # (Auto) 0.1 Baso # (Auto) 0.1 Neutrophils % (Manual) 85 H Band Neutrophils % 1 Lymphocytes % (Manual) 10 L Reactive Lymphs % Monocytes % (Manual) 3 Eosinophils % (Manual) 1 Platelet Estimate Markedly increased H Plt Clumps, EDTA Present Hypochromasia (manual) Slight Anisocytosis (manual) PT 14.0 H INR 1.3 APTT 30 pO2 VBG pH VBG pCO2 VBG HCO3 VBG Total CO2 VBG O2 Sat (Calc) VBG Base Excess VBG Potassium Glucose Lactate FiO2 Crit Value Called To Crit Value Called By Crit Value Read Back Blood Gas Notified Time Sodium Potassium Chloride Carbon Dioxide Anion Gap BUN Creatinine Est GFR ( Amer) Est GFR (Non-Af Amer) POC Glucose (mg/dL) 153 H Random Glucose Serum Osmolality Lactic Acid Calcium Phosphorus Magnesium Total Bilirubin AST ALT Alkaline Phosphatase Ammonia Total Creatine Kinase CK-MB (Mass) Troponin I NT-Pro-B Natriuret Pep Total Protein Albumin Globulin Albumin/Globulin Ratio TSH 3rd Generation Venous Blood Potassium Urine Color Urine Clarity Urine pH Ur Specific Morgan Urine Protein Urine Glucose (UA) Urine Ketones Urine Blood Urine Nitrate Urine Bilirubin Urine Urobilinogen Ur Leukocyte Esterase Urine WBC (Auto) Urine RBC (Auto) Urine WBC Clumps (Auto) Urine Osmolality Ur Random Creatinine Ur Random Sodium Ur Random Urea Nitrogn Urine Opiates Screen Urine Methadone Screen Ur Barbiturates Screen Valproic Acid Ur Phencyclidine Scrn Ur Amphetamines Screen U Benzodiazepines Scrn U Oth Cocaine Metabols U Cannabinoids Screen 01/13/18 01/13/18 01/13/18 17:42 17:42 17:45 WBC RBC Hgb Hct MCV MCH MCHC RDW Plt Count MPV Neut % (Auto) Lymph % (Auto) Tyrrell % (Auto) Eos % (Auto) Baso % (Auto) Neut # (Auto) Lymph # (Auto) Tyrrell # (Auto) Eos # (Auto) Baso # (Auto) Neutrophils % (Manual) Band Neutrophils % Lymphocytes % (Manual) Reactive Lymphs % Monocytes % (Manual) Eosinophils % (Manual) Platelet Estimate Plt Clumps, EDTA Hypochromasia (manual) Anisocytosis (manual) PT INR APTT pO2 78 H VBG pH 7.29 L VBG pCO2 28 L VBG HCO3 15.8 VBG Total CO2 14.4 L VBG O2 Sat (Calc) 96.8 H VBG Base Excess -11.6 L VBG Potassium 8.0 H* Glucose 184 H Lactate 1.3 FiO2 Crit Value Called To Renny broderick do Crit Value Called By José Miguel jain [employer] sales specialist Crit Value Read Back Y Blood Gas Notified Time 1755 Sodium 156 H 150.0 H Potassium 8.0 H* D Chloride 114 H 117.0 H Carbon Dioxide 9 L* D Anion Gap 40 H BUN 219 H* D Creatinine 10.7 H* D Est GFR ( Amer) 6 Est GFR (Non-Af Amer) 5 POC Glucose (mg/dL) Random Glucose 195 H Serum Osmolality Lactic Acid Calcium 11.1 H Phosphorus 12.0 H Magnesium 4.2 H Total Bilirubin 0.7 AST 55 ALT 68 Alkaline Phosphatase 322 H D Ammonia 17 Total Creatine Kinase CK-MB (Mass) Troponin I NT-Pro-B Natriuret Pep Total Protein 9.9 H Albumin 4.2 Globulin 5.8 H Albumin/Globulin Ratio 0.7 L TSH 3rd Generation Venous Blood Potassium 8.0 H* Urine Color Urine Clarity Urine pH Ur Specific Morgan Urine Protein Urine Glucose (UA) Urine Ketones Urine Blood Urine Nitrate Urine Bilirubin Urine Urobilinogen Ur Leukocyte Esterase Urine WBC (Auto) Urine RBC (Auto) Urine WBC Clumps (Auto) Urine Osmolality Ur Random Creatinine Ur Random Sodium Ur Random Urea Nitrogn Urine Opiates Screen Urine Methadone Screen Ur Barbiturates Screen Valproic Acid Ur Phencyclidine Scrn Ur Amphetamines Screen U Benzodiazepines Scrn U Oth Cocaine Metabols U Cannabinoids Screen 01/13/18 01/13/18 01/13/18 18:47 19:42 19:53 WBC RBC Hgb Hct MCV MCH MCHC RDW Plt Count MPV Neut % (Auto) Lymph % (Auto) Tyrrell % (Auto) Eos % (Auto) Baso % (Auto) Neut # (Auto) Lymph # (Auto) Tyrrell # (Auto) Eos # (Auto) Baso # (Auto) Neutrophils % (Manual) Band Neutrophils % Lymphocytes % (Manual) Reactive Lymphs % Monocytes % (Manual) Eosinophils % (Manual) Platelet Estimate Plt Clumps, EDTA Hypochromasia (manual) Anisocytosis (manual) PT INR APTT pO2 VBG pH VBG pCO2 VBG HCO3 VBG Total CO2 VBG O2 Sat (Calc) VBG Base Excess VBG Potassium Glucose Lactate FiO2 Crit Value Called To Crit Value Called By Crit Value Read Back Blood Gas Notified Time Sodium 153 H Potassium 5.7 H Chloride 116 H Carbon Dioxide 15 L Anion Gap 27 H BUN 212 H* Creatinine 9.0 H* Est GFR ( Amer) 7 Est GFR (Non-Af Amer) 6 POC Glucose (mg/dL) Random Glucose 294 H Serum Osmolality Lactic Acid Calcium 9.0 Phosphorus Magnesium Total Bilirubin 0.6 AST 38 ALT 43 Alkaline Phosphatase 216 H D Ammonia Total Creatine Kinase CK-MB (Mass) Troponin I NT-Pro-B Natriuret Pep Total Protein 7.2 Albumin 3.3 L D Globulin 3.9 Albumin/Globulin Ratio 0.9 L TSH 3rd Generation Venous Blood Potassium Urine Color No Urine Clarity Turbid Urine pH 6.0 Ur Specific Morgan 1.015 Urine Protein 2+ H Urine Glucose (UA) Normal Urine Ketones Negative Urine Blood 3+ H Urine Nitrate Negative Urine Bilirubin Negative Urine Urobilinogen Normal Ur Leukocyte Esterase 3+ H Urine WBC (Auto) 2628 H Urine RBC (Auto) 78 H Urine WBC Clumps (Auto) Many H Urine Osmolality 475 Ur Random Creatinine 94.0 Ur Random Sodium 64 Ur Random Urea Nitrogn 476 Urine Opiates Screen Negative Urine Methadone Screen Negative Ur Barbiturates Screen Negative Valproic Acid Ur Phencyclidine Scrn Negative Ur Amphetamines Screen Negative U Benzodiazepines Scrn Negative U Oth Cocaine Metabols Negative U Cannabinoids Screen Negative 01/13/18 01/13/18 01/13/18 20:20 20:30 21:10 WBC RBC Hgb Hct MCV MCH MCHC RDW Plt Count MPV Neut % (Auto) Lymph % (Auto) Tyrrell % (Auto) Eos % (Auto) Baso % (Auto) Neut # (Auto) Lymph # (Auto) Tyrrell # (Auto) Eos # (Auto) Baso # (Auto) Neutrophils % (Manual) Band Neutrophils % Lymphocytes % (Manual) Reactive Lymphs % Monocytes % (Manual) Eosinophils % (Manual) Platelet Estimate Plt Clumps, EDTA Hypochromasia (manual) Anisocytosis (manual) PT INR APTT pO2 19 L VBG pH 7.24 L VBG pCO2 42 VBG HCO3 15.8 VBG Total CO2 19.3 L VBG O2 Sat (Calc) 41.6 VBG Base Excess -9.0 L VBG Potassium 5.9 H Glucose 225 H Lactate 2.0 FiO2 21.0 Crit Value Called To Crit Value Called By Crit Value Read Back Blood Gas Notified Time Sodium 153.0 H Potassium Chloride 122.0 H Carbon Dioxide Anion Gap BUN Creatinine Est GFR ( Amer) Est GFR (Non-Af Amer) POC Glucose (mg/dL) Random Glucose Serum Osmolality Lactic Acid Calcium Phosphorus Magnesium Total Bilirubin AST ALT Alkaline Phosphatase Ammonia 22 D Total Creatine Kinase 1091 H CK-MB (Mass) 2.69 Troponin I 0.0730 NT-Pro-B Natriuret Pep Total Protein Albumin Globulin Albumin/Globulin Ratio TSH 3rd Generation Venous Blood Potassium 5.9 H Urine Color Urine Clarity Urine pH Ur Specific Morgan Urine Protein Urine Glucose (UA) Urine Ketones Urine Blood Urine Nitrate Urine Bilirubin Urine Urobilinogen Ur Leukocyte Esterase Urine WBC (Auto) Urine RBC (Auto) Urine WBC Clumps (Auto) Urine Osmolality Ur Random Creatinine Ur Random Sodium Ur Random Urea Nitrogn Urine Opiates Screen Urine Methadone Screen Ur Barbiturates Screen Valproic Acid Ur Phencyclidine Scrn Ur Amphetamines Screen U Benzodiazepines Scrn U Oth Cocaine Metabols U Cannabinoids Screen 01/13/18 01/13/18 01/13/18 21:12 21:12 22:34 WBC RBC Hgb Hct MCV MCH MCHC RDW Plt Count MPV Neut % (Auto) Lymph % (Auto) Tyrrell % (Auto) Eos % (Auto) Baso % (Auto) Neut # (Auto) Lymph # (Auto) Tyrrell # (Auto) Eos # (Auto) Baso # (Auto) Neutrophils % (Manual) Band Neutrophils % Lymphocytes % (Manual) Reactive Lymphs % Monocytes % (Manual) Eosinophils % (Manual) Platelet Estimate Plt Clumps, EDTA Hypochromasia (manual) Anisocytosis (manual) PT INR APTT pO2 VBG pH VBG pCO2 VBG HCO3 VBG Total CO2 VBG O2 Sat (Calc) VBG Base Excess VBG Potassium Glucose Lactate FiO2 Crit Value Called To Crit Value Called By Crit Value Read Back Blood Gas Notified Time Sodium Potassium Chloride Carbon Dioxide Anion Gap BUN Creatinine Est GFR ( Amer) Est GFR (Non-Af Amer) POC Glucose (mg/dL) Random Glucose Serum Osmolality Lactic Acid 1.9 1.7 Calcium Phosphorus Magnesium Total Bilirubin AST ALT Alkaline Phosphatase Ammonia Total Creatine Kinase CK-MB (Mass) Troponin I NT-Pro-B Natriuret Pep Total Protein Albumin Globulin Albumin/Globulin Ratio TSH 3rd Generation Venous Blood Potassium Urine Color Urine Clarity Urine pH Ur Specific Morgan Urine Protein Urine Glucose (UA) Urine Ketones Urine Blood Urine Nitrate Urine Bilirubin Urine Urobilinogen Ur Leukocyte Esterase Urine WBC (Auto) Urine RBC (Auto) Urine WBC Clumps (Auto) Urine Osmolality Ur Random Creatinine Ur Random Sodium Ur Random Urea Nitrogn Urine Opiates Screen Urine Methadone Screen Ur Barbiturates Screen Valproic Acid < 10.0 L Ur Phencyclidine Scrn Ur Amphetamines Screen U Benzodiazepines Scrn U Oth Cocaine Metabols U Cannabinoids Screen 01/13/18 01/13/18 01/14/18 22:34 22:34 06:01 WBC RBC Hgb Hct MCV MCH MCHC RDW Plt Count MPV Neut % (Auto) Lymph % (Auto) Tyrrell % (Auto) Eos % (Auto) Baso % (Auto) Neut # (Auto) Lymph # (Auto) Tyrrell # (Auto) Eos # (Auto) Baso # (Auto) Neutrophils % (Manual) Band Neutrophils % Lymphocytes % (Manual) Reactive Lymphs % Monocytes % (Manual) Eosinophils % (Manual) Platelet Estimate Plt Clumps, EDTA Hypochromasia (manual) Anisocytosis (manual) PT INR APTT pO2 VBG pH VBG pCO2 VBG HCO3 VBG Total CO2 VBG O2 Sat (Calc) VBG Base Excess VBG Potassium Glucose Lactate FiO2 Crit Value Called To Crit Value Called By Crit Value Read Back Blood Gas Notified Time Sodium 159 H Potassium 4.9 Chloride 119 H Carbon Dioxide 19 L Anion Gap 25 H BUN 179 H* Creatinine 7.6 H* Est GFR ( Amer) 9 Est GFR (Non-Af Amer) 7 POC Glucose (mg/dL) Random Glucose 251 H Serum Osmolality 410 H Lactic Acid Calcium 9.1 Phosphorus 8.2 H Magnesium 3.1 H Total Bilirubin 0.5 AST 66 H D ALT 47 Alkaline Phosphatase 212 H Ammonia Total Creatine Kinase 977 H CK-MB (Mass) 2.93 Troponin I 0.0710 NT-Pro-B Natriuret Pep 8010 H Total Protein 7.5 Albumin 3.5 Globulin 4.0 H Albumin/Globulin Ratio 0.9 L TSH 3rd Generation 2.63 Venous Blood Potassium Urine Color Urine Clarity Urine pH Ur Specific Morgan Urine Protein Urine Glucose (UA) Urine Ketones Urine Blood Urine Nitrate Urine Bilirubin Urine Urobilinogen Ur Leukocyte Esterase Urine WBC (Auto) Urine RBC (Auto) Urine WBC Clumps (Auto) Urine Osmolality Ur Random Creatinine Ur Random Sodium Ur Random Urea Nitrogn Urine Opiates Screen Urine Methadone Screen Ur Barbiturates Screen Valproic Acid Ur Phencyclidine Scrn Ur Amphetamines Screen U Benzodiazepines Scrn U Oth Cocaine Metabols U Cannabinoids Screen 01/14/18 01/14/18 01/14/18 06:02 06:05 07:06 WBC 9.8 10.5 RBC 3.10 L 3.11 L Hgb 8.1 L D 8.2 L Hct 25.5 L 25.7 L MCV 82.2 82.7 MCH 26.2 L 26.5 L MCHC 31.9 L 32.0 L RDW 17.2 H 17.2 H Plt Count 448 H D 470 H MPV 7.7 7.5 Neut % (Auto) 84.5 H 80.3 H Lymph % (Auto) 8.5 L 11.9 L Tyrrell % (Auto) 5.2 5.8 Eos % (Auto) 1.7 1.6 Baso % (Auto) 0.1 0.4 Neut # (Auto) 8.3 H 8.4 H Lymph # (Auto) 0.8 L 1.2 Tyrrell # (Auto) 0.5 0.6 Eos # (Auto) 0.2 0.2 Baso # (Auto) 0.0 0.0 Neutrophils % (Manual) 85 H Band Neutrophils % Lymphocytes % (Manual) 9 L Reactive Lymphs % 1 H Monocytes % (Manual) 5 Eosinophils % (Manual) Platelet Estimate Slightly increased H Plt Clumps, EDTA Hypochromasia (manual) Slight Anisocytosis (manual) Slight PT INR APTT pO2 VBG pH VBG pCO2 VBG HCO3 VBG Total CO2 VBG O2 Sat (Calc) VBG Base Excess VBG Potassium Glucose Lactate FiO2 Crit Value Called To Crit Value Called By Crit Value Read Back Blood Gas Notified Time Sodium Potassium Chloride Carbon Dioxide Anion Gap BUN Creatinine Est GFR ( Amer) Est GFR (Non-Af Amer) POC Glucose (mg/dL) Random Glucose Serum Osmolality Lactic Acid 1.4 Calcium Phosphorus Magnesium Total Bilirubin AST ALT Alkaline Phosphatase Ammonia Total Creatine Kinase CK-MB (Mass) Troponin I NT-Pro-B Natriuret Pep Total Protein Albumin Globulin Albumin/Globulin Ratio TSH 3rd Generation Venous Blood Potassium Urine Color Urine Clarity Urine pH Ur Specific Morgan Urine Protein Urine Glucose (UA) Urine Ketones Urine Blood Urine Nitrate Urine Bilirubin Urine Urobilinogen Ur Leukocyte Esterase Urine WBC (Auto) Urine RBC (Auto) Urine WBC Clumps (Auto) Urine Osmolality Ur Random Creatinine Ur Random Sodium Ur Random Urea Nitrogn Urine Opiates Screen Urine Methadone Screen Ur Barbiturates Screen Valproic Acid Ur Phencyclidine Scrn Ur Amphetamines Screen U Benzodiazepines Scrn U Oth Cocaine Metabols U Cannabinoids Screen EKG/Cardiology Studies: Cardiology / EKG Studies 01/13/18 17:33 ELECTROCARDIOGRAM Stat Comment: Mode Of Transportation: Reason For Exam: Sepsis Patient Fingerstick Blood Sugar Results: 236 Review of Systems - Review of Systems Systems not reviewed;Unavailable: Altered Mental Status Critical Care Progress Note - Nutrition Nutrition: Nutrition Category Date Time Status NPO Diet [DIET] Diets 01/14/18 Breakfast Active Assessment/Plan - Assessment and Plan (Free Text) Assessment: 72 year old male with history of dementia, DM, BPH and CKD who was sent in from care home after he was found altered after he had been refusing to eat. Patient is altered and unable to provide history. Patient was found to be hyperkalemic, and in acute kidney injury with abnormal Cr and BUN. ICU consulted for management of significant electrolyte imbalances. Plan: Neuro: Altered mental status Head CT: No acute intracranial pathology. Age-related changes. No significant interval change. Keep NPO until mental status improves U Tox: negative Valproic acid <10.0 Cardiovascular: Chronic systolic heart failure proBNP 8010 Troponin 0.0730 -->0.0710 -->0.0550 f/u ECHO BP 88/56 NS 500 IV bolus x3 given Pulmonary: Currently on O2 via NC 2L CXR: no acute disease GI: Protonix 40mg Q12 IV Abd US Limited study secondary to portable technique. Increased echogenicity of the hepatic parenchymal cortex suggestive for fatty infiltration versus hepatic parenchymal disease. Clinical correlation. Top normal wall thickness of the gallbladder measuring 3 millimeters. Clinical correlation. Limited visualization of the pancreas. Mildly ectatic and prominent distal abdominal aorta measuring up to 2.9 centimeters. Clinical correlation. Bilateral renal cysts. These findings were preliminarily reported at 11:41 p.m. on 01/13/[address] Shanell Moore from [facility]. Stool occult negative for blood Renal: Acute kidney injury BUN 179 --> 157 Cr 7.6 -->6.2 Serum osmolarity 410 Urine osmolality 475 Ur random Cr 94 Urine Na 64 urine urea nitrogen 476 Continue to monitor Na levels Initial Na 159 K 4.9 --> Na 155 K 4.5 [place] 150mEq drip @ 50cc/hr 1/2 NS @ 50cc/hr Received 500ml IV bolus x3 ID white count 10.5 Dr. Barnett consulted, help appreciated Avelox 400mg IV, Meropenem as per ID Blood culture GP cocci urine culture prelim GP cocci, Vanco 1 g IV x1 given. UA: 3+ LE 3+ blood 2+ protein Lactate 1.3 --> 2.0 Heme H/H 8.2 /25.7 PT 14.0 INR 1.3 Endo Levemir 10unit SC HS Continue to monitor blood glucose levels. PPX:SCDs, Heparin 5000SC Q12 Case discussed with Dr. Stern
[2018-01-14] MEDS ORDERED: Sodium Chloride 0.9% 500 ML IV ONE ×3 (09:36→17:31)
[2018-01-14] MEDS ORDERED: Vancomycin 1 gm/NS 200 ml 1 GM/200 ML BAG IVPB ONE (12:00)
[2018-01-14 13:51] LABS: CALCIUM 7.9 mg/dl (8.6-10.4)
[2018-01-14 13:58] LABS: CK-MB 2.14 ng/mL (0.0-3.38); TROPONIN I 0.055 ng/mL (0.00-0.120)
--- NOTE | 2018-01-14 14:28 | CP.PCM.CON ---
History of Present Illness - History of Present Illness History of Present Illness: dictated Past Patient History - Infectious Disease Hx of Infectious Diseases: None - Tetanus Immunizations Tetanus Immunization: Unknown - Past Medical History & Family History Past Medical History?: Yes - Past Social History Smoking Status: Unknown If Ever Smoked - CARDIAC Hx Cardiac Disorders: Yes Hx Hypertension: Yes - PULMONARY Hx Respiratory Disorders: Yes - NEUROLOGICAL Hx Dementia: Yes - HEENT Hx HEENT Problems: No - RENAL Hx Chronic Kidney Disease: No - ENDOCRINE/METABOLIC Hx Diabetes Mellitus Type 2: Yes - HEMATOLOGICAL/ONCOLOGICAL Hx Anemia: Yes - INTEGUMENTARY Hx Dermatological Problems: No - MUSCULOSKELETAL/RHEUMATOLOGICAL Hx Falls: No - GASTROINTESTINAL Hx Gastrointestinal Disorders: No Hx Colostomy: Yes - GENITOURINARY/GYNECOLOGICAL Hx Genitourinary Disorders: No - PSYCHIATRIC Hx Substance Use: No - SURGICAL HISTORY Hx Surgeries: No Other/Comment: unable to obtain informations - ANESTHESIA Hx Anesthesia: No Hx Anesthesia Reactions: No Meds Allergies/Adverse Reactions: Allergies Allergy/AdvReac Type Severity Reaction Status Date / Time No Known Allergies Allergy Verified 01/13/18 17:08 - Medications Medications: Current Medications Heparin Sodium (Porcine) (Heparin) 5,000 units SC Q12H [facility] Last Admin: 01/14/18 13:36 Dose: 5,000 units Meropenem 500 mg/ Sodium (Chloride) 100 mls @ 100 mls/hr IVPB Q24H NEL PRN Reason: Protocol Last Admin: 01/14/18 01:25 Dose: 100 mls/hr Sodium Chloride (Sodium Chloride 0.45%) 1,000 mls @ 50 mls/hr IV .Q20H [facility] Last Admin: 01/14/18 02:25 Dose: 50 mls/hr Sodium Bicarbonate 150 meq/ (Dextrose) 1,150 mls @ 50 mls/hr IV .Q23H [facility] Last Admin: 01/14/18 12:18 Dose: 50 mls/hr Moxifloxacin HCl (Avelox Iv 400mg/250ml Ns) 400 mg in 250 mls @ 167 mls/hr IVPB Q24H NEL PRN Reason: Protocol Insulin Aspart (Novolog) 0 unit SC Q6 NEL PRN Reason: Protocol Last Admin: 01/14/18 12:47 Dose: 4 u Pantoprazole Sodium (Protonix Inj) 40 mg IVP Q12H [facility] Last Admin: 01/14/18 13:36 Dose: 40 mg Tamsulosin HCl (Flomax) 0.4 mg PO DAILY [facility] Last Admin: 01/14/18 10:13 Dose: Not Given Results - Vital Signs Recent Vital Signs: Last Vital Signs Temp 97.4 F L 01/14/18 08:00 Pulse 127 H 01/14/18 12:01 Resp 18 01/14/18 12:01 BP 103/56 L 01/14/18 12:01 Pulse Ox 100 01/14/18 12:01 - Labs Result Diagrams: 01/14/18 07:06 01/14/18 13:19 Labs: Laboratory Results - last 24 hr 01/13/18 01/13/18 01/13/18 17:08 17:42 17:42 WBC 15.4 H RBC 3.90 L Hgb 10.6 L Hct 32.4 L MCV 83.1 MCH 27.2 MCHC 32.7 L RDW 17.2 H Plt Count 691 H D MPV 7.4 Neut % (Auto) 86.4 H Lymph % (Auto) 7.4 L [place] % (Auto) 5.3 Eos % (Auto) 0.4 Baso % (Auto) 0.5 Neut # (Auto) 13.3 H Lymph # (Auto) 1.1 [place] # (Auto) 0.8 Eos # (Auto) 0.1 Baso # (Auto) 0.1 Neutrophils % (Manual) 85 H Band Neutrophils % 1 Lymphocytes % (Manual) 10 L Reactive Lymphs % Monocytes % (Manual) 3 Eosinophils % (Manual) 1 Platelet Estimate Markedly increased H Plt Clumps, EDTA Present Hypochromasia (manual) Slight Anisocytosis (manual) PT 14.0 H INR 1.3 APTT 30 pO2 VBG pH VBG pCO2 VBG HCO3 VBG Total CO2 VBG O2 Sat (Calc) VBG Base Excess VBG Potassium Glucose Lactate FiO2 Crit Value Called To Crit Value Called By Crit Value Read Back Blood Gas Notified Time Sodium Potassium Chloride Carbon Dioxide Anion Gap BUN Creatinine Est GFR ( Amer) Est GFR (Non-Af Amer) POC Glucose (mg/dL) 153 H Random Glucose Serum Osmolality Lactic Acid Calcium Phosphorus Magnesium Total Bilirubin AST ALT Alkaline Phosphatase Ammonia Total Creatine Kinase CK-MB (Mass) Troponin I NT-Pro-B Natriuret Pep Total Protein Albumin Globulin Albumin/Globulin Ratio TSH 3rd Generation Venous Blood Potassium Urine Color Urine Clarity Urine pH Ur Specific Deputy Urine Protein Urine Glucose (UA) Urine Ketones Urine Blood Urine Nitrate Urine Bilirubin Urine Urobilinogen Ur Leukocyte Esterase Urine WBC (Auto) Urine RBC (Auto) Urine WBC Clumps (Auto) Urine Osmolality Ur Random Creatinine Ur Random Sodium Ur Random Urea Nitrogn Stool Occult Blood Urine Opiates Screen Urine Methadone Screen Ur Barbiturates Screen Valproic Acid Ur Phencyclidine Scrn Ur Amphetamines Screen U Benzodiazepines Scrn U Oth Cocaine Metabols U Cannabinoids Screen 01/13/18 01/13/18 01/13/18 17:42 17:42 17:45 WBC RBC Hgb Hct MCV MCH MCHC RDW Plt Count MPV Neut % (Auto) Lymph % (Auto) [place] % (Auto) Eos % (Auto) Baso % (Auto) Neut # (Auto) Lymph # (Auto) [place] # (Auto) Eos # (Auto) Baso # (Auto) Neutrophils % (Manual) Band Neutrophils % Lymphocytes % (Manual) Reactive Lymphs % Monocytes % (Manual) Eosinophils % (Manual) Platelet Estimate Plt Clumps, EDTA Hypochromasia (manual) Anisocytosis (manual) PT INR APTT pO2 78 H VBG pH 7.29 L VBG pCO2 28 L VBG HCO3 15.8 VBG Total CO2 14.4 L VBG O2 Sat (Calc) 96.8 H VBG Base Excess -11.6 L VBG Potassium 8.0 H* Glucose 184 H Lactate 1.3 FiO2 Crit Value Called To Renny broderick do Crit Value Called By José Miguel jain area representative Crit Value Read Back Y Blood Gas Notified Time 1755 Sodium 156 H 150.0 H Potassium 8.0 H* D Chloride 114 H 117.0 H Carbon Dioxide 9 L* D Anion Gap 40 H BUN 219 H* D Creatinine 10.7 H* D Est GFR ( Amer) 6 Est GFR (Non-Af Amer) 5 POC Glucose (mg/dL) Random Glucose 195 H Serum Osmolality Lactic Acid Calcium 11.1 H Phosphorus 12.0 H Magnesium 4.2 H Total Bilirubin 0.7 AST 55 ALT 68 Alkaline Phosphatase 322 H D Ammonia 17 Total Creatine Kinase CK-MB (Mass) Troponin I NT-Pro-B Natriuret Pep Total Protein 9.9 H Albumin 4.2 Globulin 5.8 H Albumin/Globulin Ratio 0.7 L TSH 3rd Generation Venous Blood Potassium 8.0 H* Urine Color Urine Clarity Urine pH Ur Specific Deputy Urine Protein Urine Glucose (UA) Urine Ketones Urine Blood Urine Nitrate Urine Bilirubin Urine Urobilinogen Ur Leukocyte Esterase Urine WBC (Auto) Urine RBC (Auto) Urine WBC Clumps (Auto) Urine Osmolality Ur Random Creatinine Ur Random Sodium Ur Random Urea Nitrogn Stool Occult Blood Urine Opiates Screen Urine Methadone Screen Ur Barbiturates Screen Valproic Acid Ur Phencyclidine Scrn Ur Amphetamines Screen U Benzodiazepines Scrn U Oth Cocaine Metabols U Cannabinoids Screen 01/13/18 01/13/18 01/13/18 18:47 19:42 19:53 WBC RBC Hgb Hct MCV MCH MCHC RDW Plt Count MPV Neut % (Auto) Lymph % (Auto) [place] % (Auto) Eos % (Auto) Baso % (Auto) Neut # (Auto) Lymph # (Auto) [place] # (Auto) Eos # (Auto) Baso # (Auto) Neutrophils % (Manual) Band Neutrophils % Lymphocytes % (Manual) Reactive Lymphs % Monocytes % (Manual) Eosinophils % (Manual) Platelet Estimate Plt Clumps, EDTA Hypochromasia (manual) Anisocytosis (manual) PT INR APTT pO2 VBG pH VBG pCO2 VBG HCO3 VBG Total CO2 VBG O2 Sat (Calc) VBG Base Excess VBG Potassium Glucose Lactate FiO2 Crit Value Called To Crit Value Called By Crit Value Read Back Blood Gas Notified Time Sodium 153 H Potassium 5.7 H Chloride 116 H Carbon Dioxide 15 L Anion Gap 27 H BUN 212 H* Creatinine 9.0 H* Est GFR ( Amer) 7 Est GFR (Non-Af Amer) 6 POC Glucose (mg/dL) Random Glucose 294 H Serum Osmolality Lactic Acid Calcium 9.0 Phosphorus Magnesium Total Bilirubin 0.6 AST 38 ALT 43 Alkaline Phosphatase 216 H D Ammonia Total Creatine Kinase CK-MB (Mass) Troponin I NT-Pro-B Natriuret Pep Total Protein 7.2 Albumin 3.3 L D Globulin 3.9 Albumin/Globulin Ratio 0.9 L TSH 3rd Generation Venous Blood Potassium Urine Color No Urine Clarity Turbid Urine pH 6.0 Ur Specific Deputy 1.015 Urine Protein 2+ H Urine Glucose (UA) Normal Urine Ketones Negative Urine Blood 3+ H Urine Nitrate Negative Urine Bilirubin Negative Urine Urobilinogen Normal Ur Leukocyte Esterase 3+ H Urine WBC (Auto) 2628 H Urine RBC (Auto) 78 H Urine WBC Clumps (Auto) Many H Urine Osmolality 475 Ur Random Creatinine 94.0 Ur Random Sodium 64 Ur Random Urea Nitrogn 476 Stool Occult Blood Urine Opiates Screen Negative Urine Methadone Screen Negative Ur Barbiturates Screen Negative Valproic Acid Ur Phencyclidine Scrn Negative Ur Amphetamines Screen Negative U Benzodiazepines Scrn Negative U Oth Cocaine Metabols Negative U Cannabinoids Screen Negative 01/13/18 01/13/18 01/13/18 20:20 20:30 21:10 WBC RBC Hgb Hct MCV MCH MCHC RDW Plt Count MPV Neut % (Auto) Lymph % (Auto) [place] % (Auto) Eos % (Auto) Baso % (Auto) Neut # (Auto) Lymph # (Auto) [place] # (Auto) Eos # (Auto) Baso # (Auto) Neutrophils % (Manual) Band Neutrophils % Lymphocytes % (Manual) Reactive Lymphs % Monocytes % (Manual) Eosinophils % (Manual) Platelet Estimate Plt Clumps, EDTA Hypochromasia (manual) Anisocytosis (manual) PT INR APTT pO2 19 L VBG pH 7.24 L VBG pCO2 42 VBG HCO3 15.8 VBG Total CO2 19.3 L VBG O2 Sat (Calc) 41.6 VBG Base Excess -9.0 L VBG Potassium 5.9 H Glucose 225 H Lactate 2.0 FiO2 21.0 Crit Value Called To Crit Value Called By Crit Value Read Back Blood Gas Notified Time Sodium 153.0 H Potassium Chloride 122.0 H Carbon Dioxide Anion Gap BUN Creatinine Est GFR ( Amer) Est GFR (Non-Af Amer) POC Glucose (mg/dL) Random Glucose Serum Osmolality Lactic Acid Calcium Phosphorus Magnesium Total Bilirubin AST ALT Alkaline Phosphatase Ammonia 22 D Total Creatine Kinase 1091 H CK-MB (Mass) 2.69 Troponin I 0.0730 NT-Pro-B Natriuret Pep Total Protein Albumin Globulin Albumin/Globulin Ratio TSH 3rd Generation Venous Blood Potassium 5.9 H Urine Color Urine Clarity Urine pH Ur Specific Deputy Urine Protein Urine Glucose (UA) Urine Ketones Urine Blood Urine Nitrate Urine Bilirubin Urine Urobilinogen Ur Leukocyte Esterase Urine WBC (Auto) Urine RBC (Auto) Urine WBC Clumps (Auto) Urine Osmolality Ur Random Creatinine Ur Random Sodium Ur Random Urea Nitrogn Stool Occult Blood Urine Opiates Screen Urine Methadone Screen Ur Barbiturates Screen Valproic Acid Ur Phencyclidine Scrn Ur Amphetamines Screen U Benzodiazepines Scrn U Oth Cocaine Metabols U Cannabinoids Screen 01/13/18 01/13/18 01/13/18 21:12 21:12 22:34 WBC RBC Hgb Hct MCV MCH MCHC RDW Plt Count MPV Neut % (Auto) Lymph % (Auto) [place] % (Auto) Eos % (Auto) Baso % (Auto) Neut # (Auto) Lymph # (Auto) [place] # (Auto) Eos # (Auto) Baso # (Auto) Neutrophils % (Manual) Band Neutrophils % Lymphocytes % (Manual) Reactive Lymphs % Monocytes % (Manual) Eosinophils % (Manual) Platelet Estimate Plt Clumps, EDTA Hypochromasia (manual) Anisocytosis (manual) PT INR APTT pO2 VBG pH VBG pCO2 VBG HCO3 VBG Total CO2 VBG O2 Sat (Calc) VBG Base Excess VBG Potassium Glucose Lactate FiO2 Crit Value Called To Crit Value Called By Crit Value Read Back Blood Gas Notified Time Sodium Potassium Chloride Carbon Dioxide Anion Gap BUN Creatinine Est GFR ( Amer) Est GFR (Non-Af Amer) POC Glucose (mg/dL) Random Glucose Serum Osmolality Lactic Acid 1.9 1.7 Calcium Phosphorus Magnesium Total Bilirubin AST ALT Alkaline Phosphatase Ammonia Total Creatine Kinase CK-MB (Mass) Troponin I NT-Pro-B Natriuret Pep Total Protein Albumin Globulin Albumin/Globulin Ratio TSH 3rd Generation Venous Blood Potassium Urine Color Urine Clarity Urine pH Ur Specific Deputy Urine Protein Urine Glucose (UA) Urine Ketones Urine Blood Urine Nitrate Urine Bilirubin Urine Urobilinogen Ur Leukocyte Esterase Urine WBC (Auto) Urine RBC (Auto) Urine WBC Clumps (Auto) Urine Osmolality Ur Random Creatinine Ur Random Sodium Ur Random Urea Nitrogn Stool Occult Blood Urine Opiates Screen Urine Methadone Screen Ur Barbiturates Screen Valproic Acid < 10.0 L Ur Phencyclidine Scrn Ur Amphetamines Screen U Benzodiazepines Scrn U Oth Cocaine Metabols U Cannabinoids Screen 01/13/18 01/13/18 01/14/18 22:34 22:34 00:04 WBC RBC Hgb Hct MCV MCH MCHC RDW Plt Count MPV Neut % (Auto) Lymph % (Auto) [place] % (Auto) Eos % (Auto) Baso % (Auto) Neut # (Auto) Lymph # (Auto) [place] # (Auto) Eos # (Auto) Baso # (Auto) Neutrophils % (Manual) Band Neutrophils % Lymphocytes % (Manual) Reactive Lymphs % Monocytes % (Manual) Eosinophils % (Manual) Platelet Estimate Plt Clumps, EDTA Hypochromasia (manual) Anisocytosis (manual) PT INR APTT pO2 VBG pH VBG pCO2 VBG HCO3 VBG Total CO2 VBG O2 Sat (Calc) VBG Base Excess VBG Potassium Glucose Lactate FiO2 Crit Value Called To Crit Value Called By Crit Value Read Back Blood Gas Notified Time Sodium Potassium Chloride Carbon Dioxide Anion Gap BUN Creatinine Est GFR ( Amer) Est GFR (Non-Af Amer) POC Glucose (mg/dL) 185 H Random Glucose Serum Osmolality 410 H Lactic Acid Calcium Phosphorus Magnesium Total Bilirubin AST ALT Alkaline Phosphatase Ammonia Total Creatine Kinase CK-MB (Mass) Troponin I NT-Pro-B Natriuret Pep 8010 H Total Protein Albumin Globulin Albumin/Globulin Ratio TSH 3rd Generation 2.63 Venous Blood Potassium Urine Color Urine Clarity Urine pH Ur Specific Deputy Urine Protein Urine Glucose (UA) Urine Ketones Urine Blood Urine Nitrate Urine Bilirubin Urine Urobilinogen Ur Leukocyte Esterase Urine WBC (Auto) Urine RBC (Auto) Urine WBC Clumps (Auto) Urine Osmolality Ur Random Creatinine Ur Random Sodium Ur Random Urea Nitrogn Stool Occult Blood Urine Opiates Screen Urine Methadone Screen Ur Barbiturates Screen Valproic Acid Ur Phencyclidine Scrn Ur Amphetamines Screen U Benzodiazepines Scrn U Oth Cocaine Metabols U Cannabinoids Screen 01/14/18 01/14/18 01/14/18 05:58 06:01 06:02 WBC 9.8 RBC 3.10 L Hgb 8.1 L D Hct 25.5 L MCV 82.2 MCH 26.2 L MCHC 31.9 L RDW 17.2 H Plt Count 448 H D MPV 7.7 Neut % (Auto) 84.5 H Lymph % (Auto) 8.5 L [place] % (Auto) 5.2 Eos % (Auto) 1.7 Baso % (Auto) 0.1 Neut # (Auto) 8.3 H Lymph # (Auto) 0.8 L [place] # (Auto) 0.5 Eos # (Auto) 0.2 Baso # (Auto) 0.0 Neutrophils % (Manual) 85 H Band Neutrophils % Lymphocytes % (Manual) 9 L Reactive Lymphs % 1 H Monocytes % (Manual) 5 Eosinophils % (Manual) Platelet Estimate Slightly increased H Plt Clumps, EDTA Hypochromasia (manual) Slight Anisocytosis (manual) Slight PT INR APTT pO2 VBG pH VBG pCO2 VBG HCO3 VBG Total CO2 VBG O2 Sat (Calc) VBG Base Excess VBG Potassium Glucose Lactate FiO2 Crit Value Called To Crit Value Called By Crit Value Read Back Blood Gas Notified Time Sodium 159 H Potassium 4.9 Chloride 119 H Carbon Dioxide 19 L Anion Gap 25 H BUN 179 H* Creatinine 7.6 H* Est GFR ( Amer) 9 Est GFR (Non-Af Amer) 7 POC Glucose (mg/dL) 236 H Random Glucose 251 H Serum Osmolality Lactic Acid Calcium 9.1 Phosphorus 8.2 H Magnesium 3.1 H Total Bilirubin 0.5 AST 66 H D ALT 47 Alkaline Phosphatase 212 H Ammonia Total Creatine Kinase 977 H CK-MB (Mass) 2.93 Troponin I 0.0710 NT-Pro-B Natriuret Pep Total Protein 7.5 Albumin 3.5 Globulin 4.0 H Albumin/Globulin Ratio 0.9 L TSH 3rd Generation Venous Blood Potassium Urine Color Urine Clarity Urine pH Ur Specific Deputy Urine Protein Urine Glucose (UA) Urine Ketones Urine Blood Urine Nitrate Urine Bilirubin Urine Urobilinogen Ur Leukocyte Esterase Urine WBC (Auto) Urine RBC (Auto) Urine WBC Clumps (Auto) Urine Osmolality Ur Random Creatinine Ur Random Sodium Ur Random Urea Nitrogn Stool Occult Blood Urine Opiates Screen Urine Methadone Screen Ur Barbiturates Screen Valproic Acid Ur Phencyclidine Scrn Ur Amphetamines Screen U Benzodiazepines Scrn U Oth Cocaine Metabols U Cannabinoids Screen 01/14/18 01/14/18 01/14/18 06:05 07:06 09:11 WBC 10.5 RBC 3.11 L Hgb 8.2 L Hct 25.7 L MCV 82.7 MCH 26.5 L MCHC 32.0 L RDW 17.2 H Plt Count 470 H MPV 7.5 Neut % (Auto) 80.3 H Lymph % (Auto) 11.9 L [place] % (Auto) 5.8 Eos % (Auto) 1.6 Baso % (Auto) 0.4 Neut # (Auto) 8.4 H Lymph # (Auto) 1.2 [place] # (Auto) 0.6 Eos # (Auto) 0.2 Baso # (Auto) 0.0 Neutrophils % (Manual) Band Neutrophils % Lymphocytes % (Manual) Reactive Lymphs % Monocytes % (Manual) Eosinophils % (Manual) Platelet Estimate Plt Clumps, EDTA Hypochromasia (manual) Anisocytosis (manual) PT INR APTT pO2 VBG pH VBG pCO2 VBG HCO3 VBG Total CO2 VBG O2 Sat (Calc) VBG Base Excess VBG Potassium Glucose Lactate FiO2 Crit Value Called To Crit Value Called By Crit Value Read Back Blood Gas Notified Time Sodium Potassium Chloride Carbon Dioxide Anion Gap BUN Creatinine Est GFR ( Amer) Est GFR (Non-Af Amer) POC Glucose (mg/dL) Random Glucose Serum Osmolality Lactic Acid 1.4 1.8 Calcium Phosphorus Magnesium Total Bilirubin AST ALT Alkaline Phosphatase Ammonia Total Creatine Kinase CK-MB (Mass) Troponin I NT-Pro-B Natriuret Pep Total Protein Albumin Globulin Albumin/Globulin Ratio TSH 3rd Generation Venous Blood Potassium Urine Color Urine Clarity Urine pH Ur Specific Deputy Urine Protein Urine Glucose (UA) Urine Ketones Urine Blood Urine Nitrate Urine Bilirubin Urine Urobilinogen Ur Leukocyte Esterase Urine WBC (Auto) Urine RBC (Auto) Urine WBC Clumps (Auto) Urine Osmolality Ur Random Creatinine Ur Random Sodium Ur Random Urea Nitrogn Stool Occult Blood Urine Opiates Screen Urine Methadone Screen Ur Barbiturates Screen Valproic Acid Ur Phencyclidine Scrn Ur Amphetamines Screen U Benzodiazepines Scrn U Oth Cocaine Metabols U Cannabinoids Screen 01/14/18 01/14/18 01/14/18 12:24 13:19 13:19 WBC RBC Hgb Hct MCV MCH MCHC RDW Plt Count MPV Neut % (Auto) Lymph % (Auto) [place] % (Auto) Eos % (Auto) Baso % (Auto) Neut # (Auto) Lymph # (Auto) [place] # (Auto) Eos # (Auto) Baso # (Auto) Neutrophils % (Manual) Band Neutrophils % Lymphocytes % (Manual) Reactive Lymphs % Monocytes % (Manual) Eosinophils % (Manual) Platelet Estimate Plt Clumps, EDTA Hypochromasia (manual) Anisocytosis (manual) PT INR APTT pO2 VBG pH VBG pCO2 VBG HCO3 VBG Total CO2 VBG O2 Sat (Calc) VBG Base Excess VBG Potassium Glucose Lactate FiO2 Crit Value Called To Crit Value Called By Crit Value Read Back Blood Gas Notified Time Sodium 155 H Potassium 4.5 Chloride 109 H Carbon Dioxide 29 Anion Gap 21 H BUN Creatinine 6.2 H Est GFR ( Amer) 11 Est GFR (Non-Af Amer) 9 POC Glucose (mg/dL) 341 H Random Glucose Serum Osmolality Lactic Acid Calcium 7.9 L Phosphorus Magnesium Total Bilirubin AST ALT Alkaline Phosphatase Ammonia Total Creatine Kinase 645 H CK-MB (Mass) 2.14 Troponin I 0.0550 NT-Pro-B Natriuret Pep Total Protein Albumin Globulin Albumin/Globulin Ratio TSH 3rd Generation Venous Blood Potassium Urine Color Urine Clarity Urine pH Ur Specific Deputy Urine Protein Urine Glucose (UA) Urine Ketones Urine Blood Urine Nitrate Urine Bilirubin Urine Urobilinogen Ur Leukocyte Esterase Urine WBC (Auto) Urine RBC (Auto) Urine WBC Clumps (Auto) Urine Osmolality Ur Random Creatinine Ur Random Sodium Ur Random Urea Nitrogn Stool Occult Blood Negative Urine Opiates Screen Urine Methadone Screen Ur Barbiturates Screen Valproic Acid Ur Phencyclidine Scrn Ur Amphetamines Screen U Benzodiazepines Scrn U Oth Cocaine Metabols U Cannabinoids Screen
[2018-01-14] MEDS ORDERED: Dextrose 50% SYRINGE Inj (50 ml) IV PRN (15:10)
[2018-01-14] MEDS ORDERED: Glucagon Recombinant 1 mg Inj IM PRN (15:10)
[2018-01-14] MEDS ORDERED: Moxifloxacin IV 400mg/250ml NS 400 MG/250 ML BAG IVPB SCH (16:00)
[2018-01-14] MEDS: Moxifloxacin IV 400mg/250ml NS 400 MG/250 ML BAG IVPB SCH (17:12)
[2018-01-14 19:06] LABS: CALCIUM 8.5 mg/dl (8.6-10.4)
--- NOTE | 2018-01-14 19:30 | CP.PCM.PN ---
Subjective - Date & Time of Evaluation Date of Evaluation: 01/14/18 Time of Evaluation: 10:45 - Subjective Subjective: clinically same Objective - Vital Signs/Intake and Output Vital Signs (last 24 hours): Temp Pulse Resp BP Pulse Ox 97.5 F L 126 H 18 92/55 L 100 01/14/18 16:00 01/14/18 17:59 01/14/18 17:59 01/14/18 17:59 01/14/18 17:59 Intake and Output: 01/14/18 01/15/18 18:59 06:59 Intake Total 2900 Output Total 1850 Balance 1050 - Medications Medications: Current Medications Dextrose (Dextrose 50% Inj) 0 ml IV STAT PRN; Protocol PRN Reason: Hypoglycemia Protocol Dextrose (Glutose 15) 0 gm PO ONCE PRN; Protocol PRN Reason: Hypoglycemia Protocol Glucagon (Glucagen Diagnostic Kit) 0 mg IM STAT PRN; Protocol PRN Reason: Hypoglycemia Protocol Heparin Sodium (Porcine) (Heparin) 5,000 units SC Q12H [facility]S [facility]CLUDE 234 BEDS AT [facility] Last Admin: 01/14/18 13:36 Dose: 5,000 units Meropenem 500 mg/ Sodium (Chloride) 100 mls @ 100 mls/hr IVPB Q24H NEL PRN Reason: Protocol Last Admin: 01/14/18 01:25 Dose: 100 mls/hr Sodium Chloride (Sodium Chloride 0.45%) 1,000 mls @ 50 mls/hr IV .Q20H COUNTS INCLUDE 234 BEDS AT THE [facility] Last Admin: 01/14/18 02:25 Dose: 50 mls/hr Sodium Bicarbonate 150 meq/ (Dextrose) 1,150 mls @ 50 mls/hr IV .Q23H COUNTS INCLUDE 234 BEDS AT THE [facility] Last Admin: 01/14/18 12:18 Dose: 50 mls/hr Dextrose (Dextrose 5% In Water 1000 Ml) 1,000 mls @ 0 mls/hr IV .Q0M PRN; Protocol; Per Protocol PRN Reason: Hypoglycemia Protocol Moxifloxacin HCl (Avelox Iv 400mg/250ml Ns) 400 mg in 250 mls @ 167 mls/hr IVPB Q24H NEL PRN Reason: Protocol Last Admin: 01/14/18 17:12 Dose: 167 mls/hr Insulin Aspart (Novolog) 0 unit SC Q6 NEL PRN Reason: Protocol Last Admin: 01/14/18 18:15 Dose: 2 u Insulin Detemir (Levemir) [address] [facility] Pantoprazole Sodium (Protonix Inj) 40 mg IVP Q12H COUNTS INCLUDE 234 BEDS AT THE [facility] Last Admin: 01/14/18 13:36 Dose: 40 mg Tamsulosin HCl (Flomax) 0.4 mg PO DAILY COUNTS INCLUDE 234 BEDS AT THE [facility] Last Admin: 01/14/18 10:13 Dose: Not Given - Labs Labs: 01/14/18 07:06 01/14/18 18:33 PT 14.0 SECONDS (9.7-12.2) H 01/13/18 17:42 INR 1.3 01/13/18 17:42 APTT 30 SECONDS (21-34) 01/13/18 17:42 - Constitutional Appears: Well - Head Exam Head Exam: ATRAUMATIC, NORMAL INSPECTION, NORMOCEPHALIC - Eye Exam Eye Exam: EOMI, Normal appearance, PERRL Pupil Exam: NORMAL ACCOMODATION, PERRL - ENT Exam ENT Exam: Mucous Membranes Moist, Normal Exam - Neck Exam Neck Exam: Full ROM, Normal Inspection. absent: Lymphadenopathy - Respiratory Exam Respiratory Exam: Decreased Breath Sounds - Cardiovascular Exam Cardiovascular Exam: REGULAR RHYTHM, +S1, +S2 - GI/Abdominal Exam GI & Abdominal Exam: Soft, Diminished Bowel Sounds - Rectal Exam Rectal Exam: Deferred Assessment and Plan (1) JOY (acute kidney injury) Status: Acute (2) Change in mental status Status: Acute (3) Electrolyte imbalance Status: Acute (4) MRSA (methicillin resistant Staphylococcus aureus) septicemia Status: Acute (5) NSTEMI (non-ST elevated myocardial infarction) Status: Acute (6) Prophylactic measure Status: Acute (7) UTI (urinary tract infection) Status: Acute (8) CHF (congestive heart failure) Status: Chronic (9) CKD (chronic kidney disease) Status: Chronic (10) Diabetes mellitus Status: Chronic (11) Afib Status: Acute (12) Anemia Status: Acute (13) Bilateral hydronephrosis Status: Acute (14) CKD (chronic kidney disease) stage 4, GFR 15-29 ml/min Status: Acute (15) Metabolic acidosis Status: Acute (16) Dementia Status: Chronic - Assessment and Plan (Free Text) Plan: patient seen and examined at bedside meds and labs reviewed ams low Hb O2 via NC Rqastogi consult antibiotics accuchecks tight glycemic control prednisone tacrolimus blood pressure control dvt/gi px fup with labs
--- NOTE | 2018-01-14 19:49 | CARD ---
APPROVED REPORT Date of service: 01/13/2018 EKG Measurement Heart [id number] HI [id number] [id number] <Conclusion> Svt,probably flutter ST & T wave abnormality, consider lateral ischemia Abnormal ECG
[2018-01-14] MEDS ORDERED: Albumin Human 5% (12.5 gm/250 ml) IV SCH (20:30)
[2018-01-14] MEDS: Insulin Detemir 100 units/ml Vial (Levemir) SC SCH (22:51)
[2018-01-15] MEDS: (Novolog) Insulin Aspart, Recombinant 100 u/ml 10 ml vial SC SCH ×4 (00:57→18:51)
[2018-01-15] MEDS: Meropenem 500 MG in Sodium Chloride 0.9% 100 ML IVPB SCH (01:01)
[2018-01-15] MEDS: Sodium Bicarbonate 8.4% 150 MEQ in Dextrose 5% In Water 1,000 ML IV SCH (02:38)
[2018-01-15 07:19] LABS: BASO % 0.5 % (0.0-2.0); EOS # 0.2 K/uL (0.0-0.7); EOS % 2.8 % (0.0-4.0); LYMPH # 0.7 K/uL (1.0-4.3); LYMPH % 8.6 % (20.0-40.0); MEAN CELL VOLUME 81.7 fL (80.0-94.0); MEAN CORPUSCULAR HEMOGLOBIN 26.5 pg (27.0-31.0); MEAN CORPUSCULAR HGB CONC 32.5 g/dL (33.0-37.0); MEAN PLATELET VOLUME 7.8 fL (7.2-11.7); MONO # 0.4 K/uL (0.0-0.8); MONO % 4.5 % (0.0-10.0); NEUT # 6.9 K/uL (1.8-7.0); NEUT % 83.6 % (50.0-75.0); NRBC % 0.2 % (0.0-2.0); PLATELET COUNT 357 K/uL (130-400); RBC 2.44 Mil/uL (4.40-5.90); WHITE BLOOD COUNT 8.3 K/uL (4.8-10.8)
[2018-01-15 07:22] LABS: ALBUMIN 3.6 g/dL (3.5-5.0); CALCIUM 8.6 mg/dl (8.6-10.4)
[2018-01-15 07:24] LABS: HEMOGLOBIN 6.5 g/dL (12.0-18.0)
[2018-01-15 09:19] LABS: EOSINOPHIL 1 % (0-4); LYMPHOCYTE 11 % (20-40); MONOCYTE 1 % (0-10); NEUTROPHIL 87 % (50-75); TOTAL CELLS COUNTED 100
[2018-01-15 09:20] LABS: ANISOCYTOSIS SLIGHT; PLATELET ESTIMATE NORMAL (NORMAL)
[2018-01-15 09:21] LABS: HYPOCHROMIC SLIGHT
--- NOTE | 2018-01-15 10:48 | CP.PCM.PN ---
Subjective - Date & Time of Evaluation Date of Evaluation: 01/15/18 Time of Evaluation: 10:45 - Subjective Subjective: clinically same Objective - Vital Signs/Intake and Output Vital Signs (last 24 hours): Temp Pulse Resp BP Pulse Ox 97.4 F L 128 H 13 102/61 100 01/15/18 08:00 01/15/18 10:00 01/15/18 10:00 01/15/18 10:00 01/15/18 10:00 Intake and Output: 01/15/18 01/15/18 06:59 18:59 Intake Total 2350 400 Output Total 1780 250 Balance 570 150 - Medications Medications: Current Medications Dextrose (Dextrose 50% Inj) 0 ml IV STAT PRN; Protocol PRN Reason: Hypoglycemia Protocol Dextrose (Glutose 15) 0 gm PO ONCE PRN; Protocol PRN Reason: Hypoglycemia Protocol Glucagon (Glucagen Diagnostic Kit) 0 mg IM STAT PRN; Protocol PRN Reason: Hypoglycemia Protocol Heparin Sodium (Porcine) (Heparin) 5,000 units SC Q12H [facility] Last Admin: 01/15/18 02:22 Dose: 5,000 units Meropenem 500 mg/ Sodium (Chloride) 100 mls @ 100 mls/hr IVPB Q24H [facility] PRN Reason: Protocol Last Admin: 01/15/18 01:01 Dose: 100 mls/hr Sodium Chloride (Sodium Chloride 0.45%) 1,000 mls @ 50 mls/hr IV .Q20H [facility] Last Admin: 01/14/18 22:44 Dose: 50 mls/hr Sodium Bicarbonate 150 meq/ (Dextrose) 1,150 mls @ 50 mls/hr IV .Q23H [facility] Last Admin: 01/15/18 02:38 Dose: 50 mls/hr Dextrose (Dextrose 5% In Water 1000 Ml) 1,000 mls @ 0 mls/hr IV .Q0M PRN; Protocol; Per Protocol PRN Reason: Hypoglycemia Protocol Moxifloxacin HCl (Avelox Iv 400mg/250ml Ns) 400 mg in 250 mls @ 167 mls/hr IVPB Q24H [facility] PRN Reason: Protocol Last Admin: 01/14/18 17:12 Dose: 167 mls/hr Albumin Human (Albutein 5% 500 Ml) 500 mls @ 250 mls/hr IVPB Q6H [facility] Stop: 01/15/18 16:59 Last Admin: 01/15/18 10:18 Dose: 250 mls/hr Daptomycin 400 mg/ Sodium (Chloride) 100 mls @ 100 mls/hr IV Q48H [facility] PRN Reason: Protocol Stop: 01/19/18 23:01 Last Admin: 01/14/18 23:46 Dose: 100 mls/hr Insulin Aspart (Novolog) 0 unit SC Q6 [facility] PRN Reason: Protocol Last Admin: 01/15/18 06:47 Dose: Not Given Insulin Detemir (Levemir) 10 unit SC HS [facility] Last Admin: 01/14/18 22:51 Dose: 10 u Pantoprazole Sodium (Protonix Inj) 40 mg IVP Q12H [facility] Last Admin: 01/15/18 02:21 Dose: 40 mg Tamsulosin HCl (Flomax) 0.4 mg PO DAILY [facility] Last Admin: 01/15/18 10:05 Dose: 0.4 mg - Labs Labs: 01/15/18 06:34 01/15/18 06:28 PT 14.0 SECONDS (9.7-12.2) H 01/13/18 17:42 INR 1.3 01/13/18 17:42 APTT 30 SECONDS (21-34) 01/13/18 17:42 - Constitutional Appears: Well - Head Exam Head Exam: ATRAUMATIC, NORMAL INSPECTION, NORMOCEPHALIC - Eye Exam Eye Exam: EOMI, Normal appearance, PERRL Pupil Exam: NORMAL ACCOMODATION, PERRL - ENT Exam ENT Exam: Mucous Membranes Moist, Normal Exam - Neck Exam Neck Exam: Full ROM, Normal Inspection. absent: Lymphadenopathy - Respiratory Exam Respiratory Exam: Decreased Breath Sounds - Cardiovascular Exam Cardiovascular Exam: REGULAR RHYTHM, +S1, +S2 - GI/Abdominal Exam GI & Abdominal Exam: Soft, Diminished Bowel Sounds - Rectal Exam Rectal Exam: Deferred Assessment and Plan (1) JOY (acute kidney injury) Status: Acute (2) Change in mental status Status: Acute (3) Electrolyte imbalance Status: Acute (4) MRSA (methicillin resistant Staphylococcus aureus) septicemia Status: Acute (5) NSTEMI (non-ST elevated myocardial infarction) Status: Acute (6) Prophylactic measure Status: Acute (7) UTI (urinary tract infection) Status: Acute (8) CHF (congestive heart failure) Status: Chronic (9) CKD (chronic kidney disease) Status: Chronic (10) Diabetes mellitus Status: Chronic (11) Afib Status: Acute (12) Anemia Status: Acute (13) Bilateral hydronephrosis Status: Acute (14) CKD (chronic kidney disease) stage 4, GFR 15-29 ml/min Status: Acute (15) Metabolic acidosis Status: Acute (16) Dementia Status: Chronic - Assessment and Plan (Free Text) Plan: pt seen and examined at bedside overnight events noted very low Hb pRBC transfusion if consented O2 via NC ID followup antibiotics accuchecks tight glycemic control prednisone tacrolimus blood pressure control dvt/gi px fup with labs cardio followup
--- NOTE | 2018-01-15 11:38 | CP.CCUPN ---
<Raimundo Yost - Last Filed: 01/15/18 11:27> CCU Subjective - Physician Review Subjective (Free Text): 01/15/18 11:38 Patient seen and examined at bedside in ICU. Remains altered, speaking incoherently. No acute events reported overnight. This AM, labs acutely concerning for Hgb 6.5, downtrending from 10.6 on arrival 01/03/18. Fecal occult blood negative, and in setting of poor PO intake/significant metabolic derangement while continuing to receive IVF, possibly represents dilutional drop 2/2 correction of hemoconcentration, rather than acute bleed. Remains tachycardic at 120's, consistently at this rate since presentation. BP remains 90's/60's, consistent within the range patient has displayed for last 36 hours ( 90's-110's/40's-70's). Call placed out to legally-appointed guardian to obtain telephone consent for blood transfusion as patient lacks capacity to consent himself, and this is a non-emergent transfusion; still awaiting call-back. If patient becomes hemodynamically unstable begins to actively bleed, will transfuse under assumed consent for emergency condition. CCU Objective - Vital Signs / Intake & Output Vital Signs (Last 4 hours): Vital Signs Temp Pulse Resp BP Pulse Ox 01/15/18 11:00 128 H 11 L 99/63 L 100 01/15/18 10:00 128 H 13 102/61 100 01/15/18 09:01 129 H 14 102/60 100 01/15/18 09:00 129 H 15 100 01/15/18 08:00 97.4 F L 128 H 12 102/61 100 Intake and Output (Last 8hrs): Intake & Output 01/14/18 01/15/18 01/15/18 22:59 06:59 14:59 Intake Total 1800 1500 500 Output Total 1175 1355 250 Balance 625 145 250 Weight 66.31 kg Intake: Intake, IV Amount 1800 1500 500 Left Forearm 1250 700 Left Forearm Y-site 150 400 250 Right Hand 50 Right Wrist 350 400 250 Output: Urine 1025 1325 250 Urethral ([place]es) 1025 1325 250 Stool 150 30 Other: # Bowel Movements 0 - Physical Exam Physical Exam Limitations: Positive for: Other (altered mental status, weakness , not following any commands) Head: Positive for: Atraumatic, Normocephalic Pupils: Negative for: Pinpoint Extroacular Muscles: Positive for: Other (Unable to assess extraocular movement since patient unable to follow commands, but able to track staff across room, so some EOMI intact) Conjunctiva: Positive for: Normal. Negative for: Injected, Icteric Mouth: Positive for: Moist Mucous Membranes. Negative for: Drooling Nose (External): Positive for: Atraumatic. Negative for: Abrasion, Contusion, Laceration Nose (Internal): Positive for: No Active Bleeding. Negative for: Epistaxis Neck: Positive for: Normal Range of Motion (passive ROM intact, not following commands to assess active ROM), Trachea Midline. Negative for: JVD Respiratory/Chest: Positive for: Clear to Auscultation, Other (limited exam as not following commands to take deep breaths, but no appreciable rales/wheezes/ ronchi). Negative for: Respiratory Distress, Accessory Muscle Use, Wheezes, Rales, Rhonchi Cardiovascular: Positive for: Normal S1, S2, Peripheal Pulses Present (+2 dorsalis pedis bilaterally, unable to assess bilateral radials due to mitts), Tachycardic. Negative for: Irregular Rhythm, Bradycardic Abdomen: Positive for: Normal Bowel Sounds, Other (ostomy bag at RLQ, ostomy appears pink/patent, no surrounding erythema). Negative for: Distention Upper Extremity: Positive for: Other (wearing mitts to prevent pulling IVs). Negative for: Cyanosis, Edema, Swelling, Erythema, Deformity Lower Extremity: Positive for: Normal Inspection, NORMAL PULSES, Capillary Refill < 2 s. Negative for: Edema, CALF TENDERNESS, Cyanosis, Swelling, Erythema, Deformity Neurological: Positive for: Motor Func Grossly Intact (not following commands, but no obvious deficits apparent in spontaneous movements of extremities, no facial droop appreciated). Negative for: GCS=15 (GCS 12 ([id number])) Skin: Positive for: Warm, Dry Psychiatric: Positive for: Other (Unable to determine since patient is demented and altered, speaking unintelligibly or with inappropriate words) - Medications Active Medications: Active Medications Generic Name Dose Route Start Last Admin Trade Name Freq PRN Reason Stop Dose Admin Dextrose 0 ml 01/14/18 15:10 Dextrose 50% Inj IV STAT PRN Hypoglycemia Protocol Protocol Dextrose 0 gm 01/14/18 15:10 Glutose 15 PO ONCE PRN Hypoglycemia Protocol Protocol Glucagon 0 mg 01/14/18 15:10 Glucagen Diagnostic Kit IM STAT PRN Hypoglycemia Protocol Protocol Heparin Sodium (Porcine) 5,000 units 01/14/18 01:45 01/15/18 02:22 Heparin SC 5,000 units Q12H NEL Administration Meropenem 500 mg/ Sodium 100 mls @ 100 mls/hr 01/14/18 01:00 01/15/18 01:01 Chloride IVPB 100 mls/hr Q24H NEL Administration Protocol Sodium Chloride 1,000 mls @ 50 mls/hr 01/14/18 01:45 01/14/18 22:44 Sodium Chloride 0.45% IV 50 mls/hr .Q20H NEL Administration Sodium Bicarbonate 150 meq/ 1,150 mls @ 50 mls/hr 01/14/18 02:36 01/15/18 02: 38 Dextrose IV 50 mls/hr .Q23H NEL Administration Dextrose 1,000 mls @ 0 mls/hr 01/14/18 15:10 Dextrose 5% In Water 1000 Ml IV .Q0M PRN Hypoglycemia Protocol Protocol Per Protocol Moxifloxacin HCl 400 mg in 250 mls @ 167 mls/hr 01/14/18 17:00 01/14/18 17:12 Avelox Iv 400mg/250ml Ns IVPB 167 mls/hr Q24H NEL Administration Protocol Albumin Human 500 mls @ 250 mls/hr 01/14/18 21:00 01/15/18 10:18 Albutein 5% 500 Ml IVPB 01/15/18 16:59 250 mls/hr Q6H NEL Administration Daptomycin 400 mg/ Sodium 100 mls @ 100 mls/hr 01/14/18 23:00 01/14/18 23:46 Chloride IV 01/19/18 23:01 100 mls/hr Q48H NEL Administration Protocol Insulin Aspart 0 unit 01/14/18 06:00 01/15/18 06:47 Novolog SC Not Given Q6 NEL Protocol Insulin Detemir 10 unit 01/14/18 22:00 01/14/18 22:51 Levemir SC 10 u HS NEL Administration Pantoprazole Sodium 40 mg 01/14/18 01:45 01/15/18 02:21 Protonix Inj IVP 40 mg Q12H NEL Administration Tamsulosin HCl 0.4 mg 01/14/18 10:00 01/15/18 10:05 Flomax PO 0.4 mg DAILY NEL Administration - Patient Studies Lab Studies: Microbiology Studies 01/13/18 19:53 Urine Culture - Final Urine Methicillin Resistant S Aureus 01/13/18 17:40 Blood Culture - Preliminary Blood Gram Positive Cocci Gram Stain - Final 01/13/18 17:40 S.aureus & Coag-Neg Staph PNA FISH - Final Blood Blood Culture - Preliminary Gram Positive Cocci Gram Stain - Final Lab Studies 01/15/18 01/15/18 01/15/18 Range/Units 06:34 06:33 06:28 WBC 8.3 (4.8-10.8) K/uL RBC 2.44 L (4.40-5.90) Mil/uL Hgb 6.5 L* (12.0-18.0) g/dL Hct 20.0 L (35.0-51.0) % MCV 81.7 (80.0-94.0) fL MCH 26.5 L (27.0-31.0) pg MCHC 32.5 L (33.0-37.0) g/dL RDW 17.0 H (11.5-14.5) % Plt Count 357 D (130-400) K/uL MPV 7.8 (7.2-11.7) fL Neut % (Auto) 83.6 H (50.0-75.0) % Lymph % (Auto) 8.6 L (20.0-40.0) % [place] % (Auto) 4.5 (0.0-10.0) % Eos % (Auto) 2.8 (0.0-4.0) % Baso % (Auto) 0.5 (0.0-2.0) % Neut # (Auto) 6.9 (1.8-7.0) K/uL Lymph # (Auto) 0.7 L (1.0-4.3) K/uL [place] # (Auto) 0.4 (0.0-0.8) K/uL Eos # (Auto) 0.2 (0.0-0.7) K/uL Baso # (Auto) 0.0 (0.0-0.2) K/uL Neutrophils % (Manual) 87 H (50-75) % Lymphocytes % (Manual) 11 L (20-40) % Monocytes % (Manual) 1 (0-10) % Eosinophils % (Manual) 1 (0-4) % Platelet Estimate Normal (NORMAL) Hypochromasia (manual) Slight Anisocytosis (manual) Slight Sodium 161 H* (132-148) mmol/L Potassium 4.0 (3.6-5.2) mmol/L Chloride 118 H (98-107) mmol/L Carbon Dioxide 26 (22-30) mmol/L Anion Gap 21 H (10-20) BUN 133 H* (9-20) mg/dL Creatinine 4.4 H (0.8-1.5) mg/dL Est GFR ( Amer) 16 Est GFR (Non-Af Amer) 13 POC Glucose (mg/dL) (65-110) mg/dL Random Glucose 106 (75-110) mg/dL Calcium 8.6 (8.6-10.4) mg/dl Magnesium 2.4 H (1.6-2.3) mg/dL Total Bilirubin 0.5 (0.2-1.3) mg/dL AST 29 (17-59) U/L ALT 33 (21-72) U/L Alkaline Phosphatase 146 H D (38-126) U/L Total Creatine Kinase (55-170) U/L CK-MB (Mass) (0.0-3.38) ng/mL Troponin I (0.00-0.120) ng/mL Total Protein 7.2 (6.3-8.3) g/dL Albumin 3.6 (3.5-5.0) g/dL Globulin 3.6 (2.2-3.9) gm/dL Albumin/Globulin Ratio 1.0 (1.0-2.1) Stool Occult Blood (NEGATIVE) Random Vancomycin 10.0 ug/mL 01/14/18 01/14/18 01/14/18 Range/Units 22:49 18:33 17:57 WBC (4.8-10.8) K/uL RBC (4.40-5.90) Mil/uL Hgb (12.0-18.0) g/dL Hct (35.0-51.0) % MCV (80.0-94.0) fL MCH (27.0-31.0) pg MCHC (33.0-37.0) g/dL RDW (11.5-14.5) % Plt Count (130-400) K/uL MPV (7.2-11.7) fL Neut % (Auto) (50.0-75.0) % Lymph % (Auto) (20.0-40.0) % [place] % (Auto) (0.0-10.0) % Eos % (Auto) (0.0-4.0) % Baso % (Auto) (0.0-2.0) % Neut # (Auto) (1.8-7.0) K/uL Lymph # (Auto) (1.0-4.3) K/uL [place] # (Auto) (0.0-0.8) K/uL Eos # (Auto) (0.0-0.7) K/uL Baso # (Auto) (0.0-0.2) K/uL Neutrophils % (Manual) (50-75) % Lymphocytes % (Manual) (20-40) % Monocytes % (Manual) (0-10) % Eosinophils % (Manual) (0-4) % Platelet Estimate (NORMAL) Hypochromasia (manual) Anisocytosis (manual) Sodium 159 H (132-148) mmol/L Potassium 4.9 (3.6-5.2) mmol/L Chloride 118 H (98-107) mmol/L Carbon Dioxide 23 (22-30) mmol/L Anion Gap 22 H (10-20) BUN 154 H* (9-20) mg/dL Creatinine 5.8 H (0.8-1.5) mg/dL Est GFR ( Amer) 12 Est GFR (Non-Af Amer) 10 POC Glucose (mg/dL) 194 H 246 H (65-110) mg/dL Random Glucose 246 H (75-110) mg/dL Calcium 8.5 L (8.6-10.4) mg/dl Magnesium (1.6-2.3) mg/dL Total Bilirubin (0.2-1.3) mg/dL AST (17-59) U/L ALT (21-72) U/L Alkaline Phosphatase (38-126) U/L Total Creatine Kinase (55-170) U/L CK-MB (Mass) (0.0-3.38) ng/mL Troponin I (0.00-0.120) ng/mL Total Protein (6.3-8.3) g/dL Albumin (3.5-5.0) g/dL Globulin (2.2-3.9) gm/dL Albumin/Globulin Ratio (1.0-2.1) Stool Occult Blood (NEGATIVE) Random Vancomycin ug/mL 01/14/18 01/14/18 01/14/18 Range/Units 13:19 13:19 12:24 WBC (4.8-10.8) K/uL RBC (4.40-5.90) Mil/uL Hgb (12.0-18.0) g/dL Hct (35.0-51.0) % MCV (80.0-94.0) fL MCH (27.0-31.0) pg MCHC (33.0-37.0) g/dL RDW (11.5-14.5) % Plt Count (130-400) K/uL MPV (7.2-11.7) fL Neut % (Auto) (50.0-75.0) % Lymph % (Auto) (20.0-40.0) % [place] % (Auto) (0.0-10.0) % Eos % (Auto) (0.0-4.0) % Baso % (Auto) (0.0-2.0) % Neut # (Auto) (1.8-7.0) K/uL Lymph # (Auto) (1.0-4.3) K/uL [place] # (Auto) (0.0-0.8) K/uL Eos # (Auto) (0.0-0.7) K/uL Baso # (Auto) (0.0-0.2) K/uL Neutrophils % (Manual) (50-75) % Lymphocytes % (Manual) (20-40) % Monocytes % (Manual) (0-10) % Eosinophils % (Manual) (0-4) % Platelet Estimate (NORMAL) Hypochromasia (manual) Anisocytosis (manual) Sodium 155 H (132-148) mmol/L Potassium 4.5 (3.6-5.2) mmol/L Chloride 109 H (98-107) mmol/L Carbon Dioxide 29 (22-30) mmol/L Anion Gap 21 H (10-20) BUN 157 H* (9-20) mg/dL Creatinine 6.2 H (0.8-1.5) mg/dL Est GFR ( Amer) 11 Est GFR (Non-Af Amer) 9 POC Glucose (mg/dL) 341 H (65-110) mg/dL Random Glucose 574 H* D (75-110) mg/dL Calcium 7.9 L (8.6-10.4) mg/dl Magnesium (1.6-2.3) mg/dL Total Bilirubin (0.2-1.3) mg/dL AST (17-59) U/L ALT (21-72) U/L Alkaline Phosphatase (38-126) U/L Total Creatine Kinase 645 H (55-170) U/L CK-MB (Mass) 2.14 (0.0-3.38) ng/mL Troponin I 0.0550 (0.00-0.120) ng/mL Total Protein (6.3-8.3) g/dL Albumin (3.5-5.0) g/dL Globulin (2.2-3.9) gm/dL Albumin/Globulin Ratio (1.0-2.1) Stool Occult Blood Negative (NEGATIVE) Random Vancomycin ug/mL Laboratory Results - last 24 hr 01/14/18 01/14/18 01/14/18 12:24 13:19 13:19 WBC RBC Hgb Hct MCV MCH MCHC RDW Plt Count MPV Neut % (Auto) Lymph % (Auto) [place] % (Auto) Eos % (Auto) Baso % (Auto) Neut # (Auto) Lymph # (Auto) [place] # (Auto) Eos # (Auto) Baso # (Auto) Neutrophils % (Manual) Lymphocytes % (Manual) Monocytes % (Manual) Eosinophils % (Manual) Platelet Estimate Hypochromasia (manual) Anisocytosis (manual) Sodium 155 H Potassium 4.5 Chloride 109 H Carbon Dioxide 29 Anion Gap 21 H BUN 157 H* Creatinine 6.2 H Est GFR ( Amer) 11 Est GFR (Non-Af Amer) 9 POC Glucose (mg/dL) 341 H Random Glucose 574 H* D Calcium 7.9 L Magnesium Total Bilirubin AST ALT Alkaline Phosphatase Total Creatine Kinase 645 H CK-MB (Mass) 2.14 Troponin I 0.0550 Total Protein Albumin Globulin Albumin/Globulin Ratio Stool Occult Blood Negative Random Vancomycin 01/14/18 01/14/18 01/14/18 17:57 18:33 22:49 WBC RBC Hgb Hct MCV MCH MCHC RDW Plt Count MPV Neut % (Auto) Lymph % (Auto) [place] % (Auto) Eos % (Auto) Baso % (Auto) Neut # (Auto) Lymph # (Auto) [place] # (Auto) Eos # (Auto) Baso # (Auto) Neutrophils % (Manual) Lymphocytes % (Manual) Monocytes % (Manual) Eosinophils % (Manual) Platelet Estimate Hypochromasia (manual) Anisocytosis (manual) Sodium 159 H Potassium 4.9 Chloride 118 H Carbon Dioxide 23 Anion Gap 22 H BUN 154 H* Creatinine 5.8 H Est GFR ( Amer) 12 Est GFR (Non-Af Amer) 10 POC Glucose (mg/dL) 246 H 194 H Random Glucose 246 H Calcium 8.5 L Magnesium Total Bilirubin AST ALT Alkaline Phosphatase Total Creatine Kinase CK-MB (Mass) Troponin I Total Protein Albumin Globulin Albumin/Globulin Ratio Stool Occult Blood Random Vancomycin 01/15/18 01/15/18 01/15/18 06:28 06:33 06:34 WBC 8.3 RBC 2.44 L Hgb 6.5 L* Hct 20.0 L MCV 81.7 MCH 26.5 L MCHC 32.5 L RDW 17.0 H Plt Count 357 D MPV 7.8 Neut % (Auto) 83.6 H Lymph % (Auto) 8.6 L [place] % (Auto) 4.5 Eos % (Auto) 2.8 Baso % (Auto) 0.5 Neut # (Auto) 6.9 Lymph # (Auto) 0.7 L [place] # (Auto) 0.4 Eos # (Auto) 0.2 Baso # (Auto) 0.0 Neutrophils % (Manual) 87 H Lymphocytes % (Manual) 11 L Monocytes % (Manual) 1 Eosinophils % (Manual) 1 Platelet Estimate Normal Hypochromasia (manual) Slight Anisocytosis (manual) Slight Sodium 161 H* Potassium 4.0 Chloride 118 H Carbon Dioxide 26 Anion Gap 21 H BUN 133 H* Creatinine 4.4 H Est GFR ( Amer) 16 Est GFR (Non-Af Amer) 13 POC Glucose (mg/dL) Random Glucose 106 Calcium 8.6 Magnesium 2.4 H Total Bilirubin 0.5 AST 29 ALT 33 Alkaline Phosphatase 146 H D Total Creatine Kinase CK-MB (Mass) Troponin I Total Protein 7.2 Albumin 3.6 Globulin 3.6 Albumin/Globulin Ratio 1.0 Stool Occult Blood Random Vancomycin 10.0 Fingerstick Blood Sugar Results: 112 Review of Systems - Review of Systems Systems not reviewed;Unavailable: Dementia Critical Care Progress Note - Nutrition Nutrition: Nutrition Category Date Time Status NPO Diet [DIET] Diets 01/14/18 Breakfast Active Assessment/Plan - Assessment and Plan (Free Text) Assessment: 72 year old male with history of dementia, DM, BPH and CKD who was sent in from [facility] after he was found altered after he had been refusing to eat. Patient is altered and unable to provide history. Patient was found to be hyperkalemic, and in acute kidney injury with abnormal Cr and BUN. ICU consulted for management of significant electrolyte imbalances. JOY is improving, but electrolyte abnormalities continue to persist, and patient has acute anemia with Hgb < 7 on AM labs today. Plan: Neuro: -Altered mental status -Head CT: No acute intracranial pathology. Age-related changes. No significant interval change. -Keep NPO until mental status improves -U Tox: negative -Valproic acid <10.0, unsurprising in context of patient refusing meds at [facility] Cardiovascular: -Chronic systolic heart failure, admission proBNP 8010 -Troponin 0.0730 -->0.0710 -->0.0550 -Echo obtained, pending read -BP improved, 90's-110's/40's-70's in 24 hr period; remains tachycardic in 120's -Continue NS 50cc/hr, albumin 5%/500ml q6 (bag 3 of 4 currently) -Strict I's and O's; put out 3350cc yesterday via [place], already excreted 1075 cc urine today (at last check) -Hgb downtrending (10.6 -> 8.2 -> 6.5) while on fluids, maintaining same HR and BP and stool occult negative for blood, so more likely dilutional component than bleeding; pending consent from court-appointed guardian to transfuse 1 unit pRBCs Pulmonary: -Currently on O2 via NC 2L, satting well -CXR: no acute disease GI: -Protonix 40mg Q12 IV -Abd US: Limited study; Increased echogenicity of the hepatic parenchymal cortex suggestive for fatty infiltration versus hepatic parenchymal disease; top normal wall thickness of the gallbladder measuring 3 millimeters; mildly ectatic and prominent distal abdominal aorta measuring up to 2.9 centimeters; bilateral renal cysts -Stool occult negative for blood Renal: -Acute kidney injury on CKD, likely 2/2 refusing PO intake; improving -BUN 219 on admission, 133 today -Cr 10.7 on admission, 4.4 today -Serum osmolarity 410, Urine osmolality 475 -Ur random Cr 94 Urine Na 64 urine urea nitrogen 476 -Known hx of CKD, so FeNa unreliable -Initial Na 156, K 8 --> today: Na 161, K 4; Na worsening despite 1/2 NS and albumin DDAVP not currently an option due to eGFR < 50 (Creatinine Clearance via Cockcroft-Gault for this pt is 14) -continue Bicarb 150mEq drip @ 50cc/hr, 1/2 NS @ 50cc/hr ID -WBCs improved to 8.3 today -ID (Dr. Barnett) consulted, help appreciated -continue Avelox 400mg IV, Meropenem as per ID -Blood cx x1 positive for G+ cocci in chains, Blood cx x1 positive for G+ cocci in clusters, and urine culture positive for MRSA > 100k CFUs -UA: 3+ LE 3+ blood 2+ protein -VBG lactate 1.3 --> 2.0 (on 01/13), serum lactate 1.8 (on 01/14) Heme -H/H decreased to 6.5/20 -no signs of acute bleeding (consistent HR and BP for last 24 hrs), stool occult negative, more likely dilutional effect from IVF in patient who was likely hemoconcetrated 2/2 minimal PO intake -pending consent from state-appointed guardian for blood transfusion, will transfuse 1 unit pRBCs when obtained and will follow up H&H after Endo -continue Levemir 10unit SC HS, continue accuchecks Dispo: ICU, pending consent for blood transfusion for Hgb 6.5, continuing management for persistent metabolic derangements and JOY on CKD FEN: NPO, 1/2 NS 50cc/hr, Bicarb drip at 50cc/hr Access: Peripheral IVs Consults: ICU, ID Ppx: Protonix for GI, SCDs for DVT (no AC in setting of anemia requiring transfusion) Code Status: Unknown, so Full by default Reviewed and discussed with attending, Dr. Greenfield. <Joaquin Greenfield - Last Filed: 01/17/18 12:03> CCU Objective - Vital Signs / Intake & Output Vital Signs (Last 4 hours): Vital Signs Pulse Resp BP Pulse Ox 01/17/18 11:58 57 L 25 H 136/50 L 100 01/17/18 11:00 60 12 98 01/17/18 10:58 58 L 19 146/57 L 99 01/17/18 10:00 60 19 99 01/17/18 09:58 63 21 143/54 L 100 01/17/18 09:00 63 10 L 99 01/17/18 08:58 58 L 17 137/87 100 Intake and Output (Last 8hrs): Intake & Output 01/16/18 01/17/18 01/17/18 22:59 06:59 14:59 Intake Total 900 1000 200 Output Total 640 725 175 Balance 260 275 25 Weight 164 lb 3 oz Intake: Intake, IV Amount 900 1000 200 Left Forearm 100 150 Left Forearm Y-site 400 400 100 Right Hand 50 Right Wrist 400 400 100 Output: Urine 640 675 175 Urethral ([place]) 640 675 175 Stool 50 - Medications Active Medications: Active Medications Generic Name Dose Route Start Last Admin Trade Name Freq PRN Reason Stop Dose Admin Dextrose 0 ml 01/14/18 15:10 Dextrose 50% Inj IV STAT PRN Hypoglycemia Protocol Protocol Dextrose 0 gm 01/14/18 15:10 Glutose 15 PO ONCE PRN Hypoglycemia Protocol Protocol Glucagon 0 mg 01/14/18 15:10 Glucagen Diagnostic Kit IM STAT PRN Hypoglycemia Protocol Protocol Heparin Sodium (Porcine) 5,000 units 01/14/18 01:45 01/17/18 02:19 Heparin SC 5,000 units Q12H NEL Administration Dextrose 1,000 mls @ 0 mls/hr 01/14/18 15:10 Dextrose 5% In Water 1000 Ml IV .Q0M PRN Hypoglycemia Protocol Protocol Per Protocol Daptomycin 400 mg/ Sodium 100 mls @ 100 mls/hr 01/14/18 23:00 01/16/18 23:49 Chloride IV 01/19/18 23:01 100 mls/hr Q48H NEL Administration Protocol Desmopressin Acetate 26 mcg/ 56.5 mls @ 100 mls/hr 01/17/18 11:58 Sodium Chloride IV 01/17/18 12:27 ONCE ONE Dextrose 500 mls @ 50 mls/hr 01/17/18 12:00 Dextrose 5% In Water IV 01/19/18 12:01 .Q10H NEL Insulin Aspart 0 unit 01/14/18 06:00 01/17/18 05:54 Novolog SC Not Given Q6 [facility] Protocol Insulin Detemir 10 unit 01/14/18 22:00 01/16/18 21:58 Levemir SC 10 u HS NEL Administration Pantoprazole Sodium 40 mg 01/18/18 10:00 Protonix Inj IVP DAILY [facility] Tamsulosin HCl 0.4 mg 01/14/18 10:00 01/17/18 10:23 Flomax PO 0.4 mg DAILY NEL Administration - Patient Studies Lab Studies: Microbiology Studies 01/13/18 17:40 S.aureus & Coag-Neg Staph PNA FISH - Final Blood Blood Culture - Final Enterococcus Faecalis Methicillin Resistant S Aureus Gram Stain - Final 01/13/18 17:40 Blood Culture - Final Blood Methicillin Resistant S Aureus Gram Stain - Final Lab Studies 01/17/18 01/17/18 01/17/18 Range/Units 11:49 06:36 06:33 WBC 11.3 H (4.8-10.8) K/uL RBC 2.90 L (4.40-5.90) Mil/uL Hgb 7.7 L (12.0-18.0) g/dL Hct 24.7 L (35.0-51.0) % MCV 85.0 D (80.0-94.0) fL MCH 26.5 L (27.0-31.0) pg MCHC 31.2 L (33.0-37.0) g/dL RDW 16.5 H (11.5-14.5) % Plt Count 337 (130-400) K/uL MPV 8.0 (7.2-11.7) fL Neut % (Auto) 86.1 H (50.0-75.0) % Lymph % (Auto) 6.9 L (20.0-40.0) % [place] % (Auto) 5.5 (0.0-10.0) % Eos % (Auto) 0.5 (0.0-4.0) % Baso % (Auto) 1.0 (0.0-2.0) % Neut # (Auto) 9.7 H (1.8-7.0) K/uL Lymph # (Auto) 0.8 L (1.0-4.3) K/uL [place] # (Auto) 0.6 (0.0-0.8) K/uL Eos # (Auto) 0.1 (0.0-0.7) K/uL Baso # (Auto) 0.1 (0.0-0.2) K/uL Neutrophils % (Manual) 84 H (50-75) % Band Neutrophils % 3 H (0-2) % Lymphocytes % (Manual) 7 L (20-40) % Monocytes % (Manual) 5 (0-10) % Eosinophils % (Manual) 1 (0-4) % Platelet Estimate Normal (NORMAL) Hypochromasia (manual) Slight Anisocytosis (manual) Slight Sodium 163 H* (132-148) mmol/L Potassium 3.3 L (3.6-5.2) mmol/L Chloride 115 H (98-107) mmol/L Carbon Dioxide 34 H (22-30) mmol/L Anion Gap 17 (10-20) BUN 67 H (9-20) mg/dL Creatinine 2.6 H (0.8-1.5) mg/dL Est GFR ( Amer) 30 Est GFR (Non-Af Amer) 24 POC Glucose (mg/dL) 140 H (65-110) mg/dL Random Glucose 153 H (75-110) mg/dL Calcium 9.0 (8.6-10.4) mg/dl Phosphorus (2.5-4.5) mg/dL Magnesium 2.0 (1.6-2.3) mg/dL Total Bilirubin 0.8 (0.2-1.3) mg/dL AST 38 (17-59) U/L ALT 25 (21-72) U/L Alkaline Phosphatase 128 H (38-126) U/L Total Protein 7.7 (6.3-8.3) g/dL Albumin 3.8 (3.5-5.0) g/dL Globulin 3.9 (2.2-3.9) gm/dL Albumin/Globulin Ratio 1.0 (1.0-2.1) Opiates (GC/MS) Methadone (GC/MS) Propoxyphenes Barbiturates Phencyclidine (PCP) Amphetamines Benzodiazepines Cocaine & Metabolite Marijuana Drugs of Abuse Comment 01/17/18 01/16/18 01/16/18 Range/Units 05:21 23:59 21:01 WBC (4.8-10.8) K/uL RBC (4.40-5.90) Mil/uL Hgb (12.0-18.0) g/dL Hct (35.0-51.0) % MCV (80.0-94.0) fL MCH (27.0-31.0) pg MCHC (33.0-37.0) g/dL RDW (11.5-14.5) % Plt Count (130-400) K/uL MPV (7.2-11.7) fL Neut % (Auto) (50.0-75.0) % Lymph % (Auto) (20.0-40.0) % [place] % (Auto) (0.0-10.0) % Eos % (Auto) (0.0-4.0) % Baso % (Auto) (0.0-2.0) % Neut # (Auto) (1.8-7.0) K/uL Lymph # (Auto) (1.0-4.3) K/uL [place] # (Auto) (0.0-0.8) K/uL Eos # (Auto) (0.0-0.7) K/uL Baso # (Auto) (0.0-0.2) K/uL Neutrophils % (Manual) (50-75) % Band Neutrophils % (0-2) % Lymphocytes % (Manual) (20-40) % Monocytes % (Manual) (0-10) % Eosinophils % (Manual) (0-4) % Platelet Estimate (NORMAL) Hypochromasia (manual) Anisocytosis (manual) Sodium (132-148) mmol/L Potassium (3.6-5.2) mmol/L Chloride (98-107) mmol/L Carbon Dioxide (22-30) mmol/L Anion Gap (10-20) BUN (9-20) mg/dL Creatinine (0.8-1.5) mg/dL Est GFR ( Amer) Est GFR (Non-Af Amer) POC Glucose (mg/dL) 154 H 185 H 182 H (65-110) mg/dL Random Glucose (75-110) mg/dL Calcium (8.6-10.4) mg/dl Phosphorus (2.5-4.5) mg/dL Magnesium (1.6-2.3) mg/dL Total Bilirubin (0.2-1.3) mg/dL AST (17-59) U/L ALT (21-72) U/L Alkaline Phosphatase (38-126) U/L Total Protein (6.3-8.3) g/dL Albumin (3.5-5.0) g/dL Globulin (2.2-3.9) gm/dL Albumin/Globulin Ratio (1.0-2.1) Opiates (GC/MS) Methadone (GC/MS) Propoxyphenes Barbiturates Phencyclidine (PCP) Amphetamines Benzodiazepines Cocaine & Metabolite Marijuana Drugs of Abuse Comment 01/16/18 01/16/18 01/16/18 Range/Units 18:06 17:30 13:33 WBC (4.8-10.8) K/uL RBC (4.40-5.90) Mil/uL Hgb (12.0-18.0) g/dL Hct (35.0-51.0) % MCV (80.0-94.0) fL MCH (27.0-31.0) pg MCHC (33.0-37.0) g/dL RDW (11.5-14.5) % Plt Count (130-400) K/uL MPV (7.2-11.7) fL Neut % (Auto) (50.0-75.0) % Lymph % (Auto) (20.0-40.0) % [place] % (Auto) (0.0-10.0) % Eos % (Auto) (0.0-4.0) % Baso % (Auto) (0.0-2.0) % Neut # (Auto) (1.8-7.0) K/uL Lymph # (Auto) (1.0-4.3) K/uL [place] # (Auto) (0.0-0.8) K/uL Eos # (Auto) (0.0-0.7) K/uL Baso # (Auto) (0.0-0.2) K/uL Neutrophils % (Manual) (50-75) % Band Neutrophils % (0-2) % Lymphocytes % (Manual) (20-40) % Monocytes % (Manual) (0-10) % Eosinophils % (Manual) (0-4) % Platelet Estimate (NORMAL) Hypochromasia (manual) Anisocytosis (manual) Sodium 160 H* (132-148) mmol/L Potassium 3.8 3.3 L (3.6-5.2) mmol/L Chloride 114 H (98-107) mmol/L Carbon Dioxide 29 (22-30) mmol/L Anion Gap 20 (10-20) BUN 77 H (9-20) mg/dL Creatinine 3.0 H (0.8-1.5) mg/dL Est GFR ( Amer) 25 Est GFR (Non-Af Amer) 21 POC Glucose (mg/dL) 213 H (65-110) mg/dL Random Glucose 205 H (75-110) mg/dL Calcium 8.7 8.9 (8.6-10.4) mg/dl Phosphorus 4.0 (2.5-4.5) mg/dL Magnesium 1.9 (1.6-2.3) mg/dL Total Bilirubin (0.2-1.3) mg/dL AST (17-59) U/L ALT (21-72) U/L Alkaline Phosphatase (38-126) U/L Total Protein (6.3-8.3) g/dL Albumin 3.8 (3.5-5.0) g/dL Globulin (2.2-3.9) gm/dL Albumin/Globulin Ratio (1.0-2.1) Opiates (GC/MS) Methadone (GC/MS) Propoxyphenes Barbiturates Phencyclidine (PCP) Amphetamines Benzodiazepines Cocaine & Metabolite Marijuana Drugs of Abuse Comment 01/16/18 01/13/18 Range/Units 12:06 22:34 WBC (4.8-10.8) K/uL RBC (4.40-5.90) Mil/uL Hgb (12.0-18.0) g/dL Hct (35.0-51.0) % MCV (80.0-94.0) fL MCH (27.0-31.0) pg MCHC (33.0-37.0) g/dL RDW (11.5-14.5) % Plt Count (130-400) K/uL MPV (7.2-11.7) fL Neut % (Auto) (50.0-75.0) % Lymph % (Auto) (20.0-40.0) % [place] % (Auto) (0.0-10.0) % Eos % (Auto) (0.0-4.0) % Baso % (Auto) (0.0-2.0) % Neut # (Auto) (1.8-7.0) K/uL Lymph # (Auto) (1.0-4.3) K/uL [place] # (Auto) (0.0-0.8) K/uL Eos # (Auto) (0.0-0.7) K/uL Baso # (Auto) (0.0-0.2) K/uL Neutrophils % (Manual) (50-75) % Band Neutrophils % (0-2) % Lymphocytes % (Manual) (20-40) % Monocytes % (Manual) (0-10) % Eosinophils % (Manual) (0-4) % Platelet Estimate (NORMAL) Hypochromasia (manual) Anisocytosis (manual) Sodium (132-148) mmol/L Potassium (3.6-5.2) mmol/L Chloride (98-107) mmol/L Carbon Dioxide (22-30) mmol/L Anion Gap (10-20) BUN (9-20) mg/dL Creatinine (0.8-1.5) mg/dL Est GFR ( Amer) Est GFR (Non-Af Amer) POC Glucose (mg/dL) 185 H (65-110) mg/dL Random Glucose (75-110) mg/dL Calcium (8.6-10.4) mg/dl Phosphorus (2.5-4.5) mg/dL Magnesium (1.6-2.3) mg/dL Total Bilirubin (0.2-1.3) mg/dL AST (17-59) U/L ALT (21-72) U/L Alkaline Phosphatase (38-126) U/L Total Protein (6.3-8.3) g/dL Albumin (3.5-5.0) g/dL Globulin (2.2-3.9) gm/dL Albumin/Globulin Ratio (1.0-2.1) Opiates (GC/MS) negative Methadone (GC/MS) negative Propoxyphenes negative Barbiturates negative Phencyclidine (PCP) negative Amphetamines negative Benzodiazepines negative Cocaine & Metabolite negative Marijuana negative Drugs of Abuse Comment See note Laboratory Results - last 24 hr 01/13/18 01/16/18 01/16/18 22:34 12:06 13:33 WBC RBC Hgb Hct MCV MCH MCHC RDW Plt Count MPV Neut % (Auto) Lymph % (Auto) [place] % (Auto) Eos % (Auto) Baso % (Auto) Neut # (Auto) Lymph # (Auto) [place] # (Auto) Eos # (Auto) Baso # (Auto) Neutrophils % (Manual) Band Neutrophils % Lymphocytes % (Manual) Monocytes % (Manual) Eosinophils % (Manual) Platelet Estimate Hypochromasia (manual) Anisocytosis (manual) Sodium 160 H* Potassium 3.3 L Chloride 114 H Carbon Dioxide 29 Anion Gap 20 BUN 77 H Creatinine 3.0 H Est GFR ( Amer) 25 Est GFR (Non-Af Amer) 21 POC Glucose (mg/dL) 185 H Random Glucose 205 H Calcium 8.9 Phosphorus Magnesium Total Bilirubin AST ALT Alkaline Phosphatase Total Protein Albumin Globulin Albumin/Globulin Ratio Opiates (GC/MS) negative Methadone (GC/MS) negative Propoxyphenes negative Barbiturates negative Phencyclidine (PCP) negative Amphetamines negative Benzodiazepines negative Cocaine & Metabolite negative Marijuana negative Drugs of Abuse Comment See note 01/16/18 01/16/18 01/16/18 17:30 18:06 21:01 WBC RBC Hgb Hct MCV MCH MCHC RDW Plt Count MPV Neut % (Auto) Lymph % (Auto) [place] % (Auto) Eos % (Auto) Baso % (Auto) Neut # (Auto) Lymph # (Auto) [place] # (Auto) Eos # (Auto) Baso # (Auto) Neutrophils % (Manual) Band Neutrophils % Lymphocytes % (Manual) Monocytes % (Manual) Eosinophils % (Manual) Platelet Estimate Hypochromasia (manual) Anisocytosis (manual) Sodium Potassium 3.8 Chloride Carbon Dioxide Anion Gap BUN Creatinine Est GFR ( Amer) Est GFR (Non-Af Amer) POC Glucose (mg/dL) 213 H 182 H Random Glucose Calcium 8.7 Phosphorus 4.0 Magnesium 1.9 Total Bilirubin AST ALT Alkaline Phosphatase Total Protein Albumin 3.8 Globulin Albumin/Globulin Ratio Opiates (GC/MS) Methadone (GC/MS) Propoxyphenes Barbiturates Phencyclidine (PCP) Amphetamines Benzodiazepines Cocaine & Metabolite Marijuana Drugs of Abuse Comment 01/16/18 01/17/18 01/17/18 23:59 05:21 06:33 WBC RBC Hgb Hct MCV MCH MCHC RDW Plt Count MPV Neut % (Auto) Lymph % (Auto) [place] % (Auto) Eos % (Auto) Baso % (Auto) Neut # (Auto) Lymph # (Auto) [place] # (Auto) Eos # (Auto) Baso # (Auto) Neutrophils % (Manual) Band Neutrophils % Lymphocytes % (Manual) Monocytes % (Manual) Eosinophils % (Manual) Platelet Estimate Hypochromasia (manual) Anisocytosis (manual) Sodium 163 H* Potassium 3.3 L Chloride 115 H Carbon Dioxide 34 H Anion Gap 17 BUN 67 H Creatinine 2.6 H Est GFR ( Amer) 30 Est GFR (Non-Af Amer) 24 POC Glucose (mg/dL) 185 H 154 H Random Glucose 153 H Calcium 9.0 Phosphorus Magnesium 2.0 Total Bilirubin 0.8 AST 38 ALT 25 Alkaline Phosphatase 128 H Total Protein 7.7 Albumin 3.8 Globulin 3.9 Albumin/Globulin Ratio 1.0 Opiates (GC/MS) Methadone (GC/MS) Propoxyphenes Barbiturates Phencyclidine (PCP) Amphetamines Benzodiazepines Cocaine & Metabolite Marijuana Drugs of Abuse Comment 01/17/18 01/17/18 06:36 11:49 WBC 11.3 H RBC 2.90 L Hgb 7.7 L Hct 24.7 L MCV 85.0 D MCH 26.5 L MCHC 31.2 L RDW 16.5 H Plt Count 337 MPV 8.0 Neut % (Auto) 86.1 H Lymph % (Auto) 6.9 L [place] % (Auto) 5.5 Eos % (Auto) 0.5 Baso % (Auto) 1.0 Neut # (Auto) 9.7 H Lymph # (Auto) 0.8 L [place] # (Auto) 0.6 Eos # (Auto) 0.1 Baso # (Auto) 0.1 Neutrophils % (Manual) 84 H Band Neutrophils % 3 H Lymphocytes % (Manual) 7 L Monocytes % (Manual) 5 Eosinophils % (Manual) 1 Platelet Estimate Normal Hypochromasia (manual) Slight Anisocytosis (manual) Slight Sodium Potassium Chloride Carbon Dioxide Anion Gap BUN Creatinine Est GFR ( Amer) Est GFR (Non-Af Amer) POC Glucose (mg/dL) 140 H Random Glucose Calcium Phosphorus Magnesium Total Bilirubin AST ALT Alkaline Phosphatase Total Protein Albumin Globulin Albumin/Globulin Ratio Opiates (GC/MS) Methadone (GC/MS) Propoxyphenes Barbiturates Phencyclidine (PCP) Amphetamines Benzodiazepines Cocaine & Metabolite Marijuana Drugs of Abuse Comment EKG/Cardiology Studies: Cardiology / EKG Studies 01/16/18 17:43 EKG [ELECTROCARDIOGRAM] Stat Comment: Mode Of Transportation: Reason For Exam: abrupt bradycardia, possible AV block Critical Care Progress Note - Nutrition Nutrition: Nutrition Category Date Time Status NPO Diet [DIET] Diets 01/14/18 Breakfast Active Attending/Attestation - Attestation I have personally seen and examined this patient.: Yes I have fully participated in the care of the patient.: Yes I have reviewed all pertinent clinical information: Yes
--- NOTE | 2018-01-15 12:50 | CON ---
Copied To: Teresa Barnett MD Attending MD: Teresa Barnett MD DATE: 01/14/2018 INFECTIOUS DISEASE CONSULT REQUESTED BY: Mir Hernandes MD This consult was requested of Dr. Conner and I am covering him. HISTORY OF PRESENT ILLNESS: This patient is a 72-year-old male. He has a history of diabetes and dementia. He was here before also. He refuses to take his medication and he had similar problems in the past. He is transferred because of altered mental status and he has some psych issues. He has a colostomy bag and it is unclear. He came in with severe renal insufficiency, altered mental status. He verbalizes, but in the past he has been agitated and has had one-to-one in the past and has had UTIs in the past and I had seen him on infectious disease consult before. PAST MEDICAL HISTORY: Significant for anemia, dementia and there is no history of chronic kidney disease, but his kidney functions have been worse and he does have chronic kidney insufficiency that I know, but not as bad as he came with. PAST SURGICAL HISTORY: No previous surgeries except for a colostomy bag. FAMILY HISTORY: Not known. SOCIAL HISTORY: Negative for smoking or drinking. I would like to see my own consult from the last admissions and the patient was having fevers and came in with I think he had a high lactic acid level. There is an altered mental status and was admitted to the ICU as he was acutely ill. REVIEW OF SYSTEM: We are not able to obtain them due to inability to get any response from him. He is very drowsy and obtunded, may be because his renal functions are so worsened. LABORATORY DATA: He has a BUN of 219, creatinine of 10.7, glucose of 195. Sodium of 156, potassium was 8 and he was given all the cocktail to decrease the hyperkalemia last night and also his white count was 15.4, platelets was 691, hence ID consult was obtained and he had a chest x-ray, which showed no active disease and he had a CT ultrasound, which showed no acute intracranial pathology, age related changes. MEDICATIONS: Now he is on albumin, he is on dextrose, he is on glucagon, these are not given, but there, heparin subcu every 12 hours. He is on insulin coverage. We restarted him on meropenem and moxifloxacin as they called me with the blood culture having GPCs in groups and then they again called that he has in clusters. He had received a dose of vancomycin today I am told and he is on meropenem and moxifloxacin and he did receive Azactam before which I discontinued and I was told he received a vancomycin 1 g this morning at 12:19, so he is well covered at this time. PHYSICAL EXAMINATION: VITAL SIGNS: He is lethargic, on oxygen, heart rate of 127, blood pressure 96/69, temperature of 97.4, and 100% saturation on nasal O2. HEENT: Head is atraumatic, normocephalic. Eyes are barely opened reacting to light, but unable to assess any eye movements, but mouth is totally dry. NECK: Supple. LUNGS: Decreased breath sounds bilaterally. No crackles or rales heard. HEART: S1 and S2 is regular. No murmur appreciated. ABDOMEN: Soft. There is an ostomy, colostomy bag on the right lower quadrant. No guarding. No rigidity present. No tenderness. EXTREMITIES: Have no edema, clubbing or cyanosis present. SKIN: Warm to touch. He does have psych issues in the past. Labs are noted. White count today is 10.5, hemoglobin 8.2, hematocrit 25.7, platelet count is 470, band neutrophils are 85, bands are 9. Sodium was 159 yesterday and it is now repeated. BUN was 179, creatinine was 7.6 now, the BUN is 154, creatinine is 5.8 and glucose is 246, calcium is 8.5, and total CPK 645. Stool occult blood is negative. Micro bear, the blood cultures, urine culture everything is positive for GPCs and he is in severe dehydration, renal failure and he has a colostomy bag. probably from the urine. He has Enterococcus faecalis, blood culture positive and critical value, so right now it seems to be Enterococcus. I am going to put him on Cubicin and we will follow. He may have VRE and his weight is 140 pounds. We will give him . We will follow. Prognosis remains guarded and we will follow with you. Teresa Barnett MD
[2018-01-15 17:02] LABS: BASO # 0.1 K/uL (0.0-0.2); BASO % 1.4 % (0.0-2.0); EOS # 0.1 K/uL (0.0-0.7); EOS % 1.5 % (0.0-4.0); LYMPH # 0.8 K/uL (1.0-4.3); LYMPH % 9.2 % (20.0-40.0); MEAN CELL VOLUME 83.9 fL (80.0-94.0); MEAN CORPUSCULAR HEMOGLOBIN 27.8 pg (27.0-31.0); MEAN CORPUSCULAR HGB CONC 33.2 g/dL (33.0-37.0); MEAN PLATELET VOLUME 7.2 fL (7.2-11.7); MONO # 0.3 K/uL (0.0-0.8); MONO % 3.6 % (0.0-10.0); NEUT # 7.7 K/uL (1.8-7.0); NEUT % 84.3 % (50.0-75.0); NRBC % 0.1 % (0.0-2.0); PLATELET COUNT 329 K/uL (130-400); RBC 2.34 Mil/uL (4.40-5.90); RED CELL DISTRIBUTION WIDTH 16.9 % (11.5-14.5); WHITE BLOOD COUNT 9.1 K/uL (4.8-10.8)
--- NOTE | 2018-01-15 18:05 | CT ---
Date of service: 01/15/2018 PROCEDURE: CT Chest, Abdomen and Pelvis without intravenous contrast HISTORY: Sepsis COMPARISON: None available. TECHNIQUE: Radiation dose: Total exam DLP = 943.86 the mGy-cm. This CT exam was performed using one or more of the following dose reduction techniques: Automated exposure control, adjustment of the mA and/or kV according to patient size, and/or use of iterative reconstruction technique. FINDINGS: CT CHEST WITHOUT CONTRAST: LUNGS: Bibasilar atelectasis left greater than right. Developing lower lobe infiltrates could be excluded followup radiographs. MEDIASTINUM: Heart is enlarged. No significant pericardial effusion. Central airways midline and patent. No large central endoluminal lesions. LYMPH NODES: There are multiple small nonspecific mediastinal lymph nodes evaluation for hilar adenopathy limited due the lack of circulating intravenous contrast material. PLEURA: Unremarkable. No pneumothorax. No pleural fluid. BONES: Mild multilevel degenerative spondylosis of the thoracic spine. There are no acute compression fractures no retropulsed fragments. No destructive lesions are identified. OTHER FINDINGS: Changes of bilateral gynecomastia. TheNone. CT ABDOMEN AND PELVIS: LIVER: Liver is upper limits of normal measuring nearly 18 cm in CC dimension. No obvious hepatic mass or collection GALLBLADDER AND BILE DUCTS: The gallbladder is physiologically distended. No obvious intraluminal gallbladder calculi. PANCREAS: Pancreas appears atrophic and fatty replaced. SPLEEN: Unremarkable. ADRENALS: No obvious adrenal lesions. KIDNEYS AND URETERS: The kidneys demonstrate relatively symmetric size. There is an exophytic cyst seen arising from anterolateral cortex upper/midpole left kidney with a smaller cyst posterolateral cortex upper pole. . The ureter urothelium in both renal pelves and proximal ureters are thickened in appearance suggesting UTI. Clinical correlation with urinalysis recommended. VASCULATURE: Unremarkable. No aortic aneurysm. BOWEL: Un evaluation of the bowel is limited due to the lack of oral contrast material. The stomach is incompletely distended. Visualized loops of small bowel exhibit normal contour and caliber. No evidence of acute mechanical small bowel obstruction. There is an ostomy site in the right lower quadrant of the abdomen with metallic clips in the perirectal region. Clinical correlation recommended surgical history. . . APPENDIX: Appendix is not visualized on this exam PERITONEUM: Unremarkable. No free fluid. No free air. LYMPH NODES: Unremarkable. No enlarged lymph nodes. BLADDER: The urinary bladder is collapsed about an in situ Mendes catheter. Urinary bladder wall is quite thickened in part due to collapse and likely muscular hypertrophy however the possibility of a urinary tract infection must be considered given the presence of a intraluminal air that a could be secondary to infection or instrumentation. Clinical correlation with urinalysis. REPRODUCTIVE: Prostate gland is mildly enlarged. BONES: No acute fracture. OTHER FINDINGS: None. IMPRESSION: There is marked wall thickening of the urinary bladder with intraluminal urinary bladder air in part due to the presence of an in situ unclamped Mendes catheter however the possibility of a UTI must be considered. There is also on dense appearance of the urothelium in both renal pelves and proximal ureters also suggesting UTI. Clinical correlation with urinalysis recommended. . Bibasilar atelectasis right greater than left. Rule out developing infiltrate. Cardiomegaly. See above discussion for additional details and findings. Right lower quadrant ostomy. Clinical correlation with surgical history recommended
[2018-01-15 18:27] LABS: EOSINOPHIL 1 % (0-4); LYMPHOCYTE 9 % (20-40); MONOCYTE 6 % (0-10); NEUTROPHIL 84 % (50-75); TOTAL CELLS COUNTED 100
[2018-01-15 18:28] LABS: HYPOCHROMIC SLIGHT; PLATELET ESTIMATE NORMAL (NORMAL)
[2018-01-15] MEDS: Moxifloxacin IV 400mg/250ml NS 400 MG/250 ML BAG IVPB SCH (21:16)
[2018-01-15] MEDS: Sodium Chloride 0.45% 1,000 ML IV SCH (21:19)
--- NOTE | 2018-01-15 22:36 | CP.PCM.PN ---
Subjective - Date & Time of Evaluation Date of Evaluation: 01/15/18 Time of Evaluation: 17:20 - Subjective Subjective: dictated Objective - Vital Signs/Intake and Output Vital Signs (last 24 hours): Temp Pulse Resp BP Pulse Ox 97.5 F L 112 H 18 125/71 100 01/15/18 20:00 01/15/18 21:00 01/15/18 21:00 01/15/18 20:58 01/15/18 21:00 Intake and Output: 01/15/18 01/16/18 18:59 06:59 Intake Total 1230 595 Output Total 2475 350 Balance -1245 245 - Medications Medications: Current Medications Dextrose (Dextrose 50% Inj) 0 ml IV STAT PRN; Protocol PRN Reason: Hypoglycemia Protocol Dextrose (Glutose 15) 0 gm PO ONCE PRN; Protocol PRN Reason: Hypoglycemia Protocol Glucagon (Glucagen Diagnostic Kit) 0 mg IM STAT PRN; Protocol PRN Reason: Hypoglycemia Protocol Heparin Sodium (Porcine) (Heparin) 5,000 units SC Q12H [facility] Last Admin: 01/15/18 15:19 Dose: Not Given Meropenem 500 mg/ Sodium (Chloride) 100 mls @ 100 mls/hr IVPB Q24H [facility] PRN Reason: Protocol Last Admin: 01/15/18 01:01 Dose: 100 mls/hr Sodium Chloride (Sodium Chloride 0.45%) 1,000 mls @ 50 mls/hr IV .Q20H [facility] Last Admin: 01/15/18 21:19 Dose: 50 mls/hr Sodium Bicarbonate 150 meq/ (Dextrose) 1,150 mls @ 50 mls/hr IV .Q23H [facility] Last Admin: 01/15/18 02:38 Dose: 50 mls/hr Dextrose (Dextrose 5% In Water 1000 Ml) 1,000 mls @ 0 mls/hr IV .Q0M PRN; Protocol; Per Protocol PRN Reason: Hypoglycemia Protocol Moxifloxacin HCl (Avelox Iv 400mg/250ml Ns) 400 mg in 250 mls @ 167 mls/hr IVPB Q24H [facility] PRN Reason: Protocol Last Admin: 01/15/18 21:16 Dose: 167 mls/hr Daptomycin 400 mg/ Sodium (Chloride) 100 mls @ 100 mls/hr IV Q48H [facility] PRN Reason: Protocol Stop: 01/19/18 23:01 Last Admin: 01/14/18 23:46 Dose: 100 mls/hr Insulin Aspart (Novolog) 0 unit SC Q6 [facility] PRN Reason: Protocol Last Admin: 01/15/18 18:51 Dose: Not Given Insulin Detemir (Levemir) 10 unit SC HS [facility] Last Admin: 01/14/18 22:51 Dose: 10 u Pantoprazole Sodium (Protonix Inj) 40 mg IVP Q12H [facility] Last Admin: 01/15/18 15:29 Dose: 40 mg Tamsulosin HCl (Flomax) 0.4 mg PO DAILY [facility] Last Admin: 01/15/18 10:05 Dose: 0.4 mg - Labs Labs: 01/15/18 16:59 01/15/18 06:28 PT 14.0 SECONDS (9.7-12.2) H 01/13/18 17:42 INR 1.3 01/13/18 17:42 APTT 30 SECONDS (21-34) 01/13/18 17:42
[2018-01-15 22:55] LABS: HEMOGLOBIN 6.5 g/dL (12.0-18.0)
[2018-01-15] MEDS: Insulin Detemir 100 units/ml Vial (Levemir) SC SCH (22:56)
[2018-01-16] MEDS: Meropenem 500 MG in Sodium Chloride 0.9% 100 ML IVPB SCH (01:00)
--- NOTE | 2018-01-16 01:00 | PN ---
Copied To: Teresa Barnett MD Attending MD: Teresa Barnett MD DATE: 01/15/2018 SUBJECTIVE: The patient remains afebrile. He is opening his eyes. He does not appear to be in much respiratory distress at this time even though he has oxygen on. PHYSICAL EXAMINATION: VITAL SIGNS: T-max is 97.5, heart rate of 110, blood pressure is 126/78 and respirations are 12. HEENT: Head is atraumatic and normocephalic. NECK: Supple. LUNGS: Clear. Decreased breath sounds bilaterally. ABDOMEN: Soft and nontender. He has a colostomy bag. Mendes catheter is present. EXTREMITIES: Have no edema. LABORATORY DATA: Labs are noted, White count is 9.1, hemoglobin 6.5, hematocrit 19.6, platelet count is 329. He remains severely anemic. Sodium 161, potassium 4, chloride 118, CO2 is 26, BUN 133, creatinine is 4.4. So, he came in with severe renal failure and with sepsis and his blood culture is positive and blood culture is GPCs in clusters, final ID is pending on one set. The blood culture showed enterococcus by PNA FISH and ID and sensitivity of which was pending and the urine culture is MRSA. ASSESSMENT AND PLAN: So he has methicillin-resistant Staphylococcus aureus and he has enterococcus and I had left him on his medications. He is on daptomycin at this time 400 every 48 hours for the enterococcus and I left him on meropenem and Avelox. We are waiting for the further ID and sensitivity of the organisms and since he with severe uremia and came in with high potassium, renal failures, septic shock and has blood cultures positive. Echocardiogram is pending. We will continue IV antibiotics and we will deescalate once we know the sensitivity of the organism. The patient is also severely anemic, may need transfusion. Teresa Barnett MD
[2018-01-16] MEDS: Sodium Bicarbonate 8.4% 150 MEQ in Dextrose 5% In Water 1,000 ML IV SCH ×2 (02:29→23:48)
[2018-01-16] MEDS: (Novolog) Insulin Aspart, Recombinant 100 u/ml 10 ml vial SC SCH ×4 (06:00→18:41)
[2018-01-16 06:59] LABS: ALB/GLOB RATIO 1.1 (1.0-2.1)
[2018-01-16 07:25] LABS: BASO % 0.3 % (0.0-2.0); EOS # 0.1 K/uL (0.0-0.7); HEMOGLOBIN 8.1 g/dL (12.0-18.0); LYMPH # 0.8 K/uL (1.0-4.3); LYMPH % 7.1 % (20.0-40.0); MEAN CORPUSCULAR HEMOGLOBIN 26.9 pg (27.0-31.0); MEAN CORPUSCULAR HGB CONC 32.4 g/dL (33.0-37.0); MONO # 0.6 K/uL (0.0-0.8); NEUT # 9.7 K/uL (1.8-7.0); NEUT % 86.6 % (50.0-75.0); PLATELET COUNT 365 K/uL (130-400); RBC 3.02 Mil/uL (4.40-5.90); RED CELL DISTRIBUTION WIDTH 16.4 % (11.5-14.5); WHITE BLOOD COUNT 11.2 K/uL (4.8-10.8)
[2018-01-16 08:19] LABS: EOSINOPHIL 1 % (0-4); LYMPHOCYTE 9 % (20-40); MONOCYTE 7 % (0-10); NEUTROPHIL 83 % (50-75); TOTAL CELLS COUNTED 100
[2018-01-16 08:20] LABS: ANISOCYTOSIS SLIGHT; HYPOCHROMIC SLIGHT; OVALOCYTES SLIGHT; PLATELET ESTIMATE NORMAL (NORMAL); POIKILOCYTOSIS SLIGHT; POLYCHROMIC SLIGHT
[2018-01-16 08:21] LABS: BURR CELLS SLIGHT
[2018-01-16] MEDS ORDERED: SODIUM CHLORIDE 0.9% IV ONE (08:53)
[2018-01-16] MEDS ORDERED: DESMOPRESSIN IV ONE (08:53)
[2018-01-16 12:58] VITALS: PULSE 132
[2018-01-16] MEDS ORDERED: Digoxin 500 mcg/2ml (0.5 mg/2ml) Inj IVP ONE ×2 (13:00→17:22)
--- NOTE | 2018-01-16 13:41 | CP.CCUPN ---
<Raimundo Yost - Last Filed: 01/16/18 17:19> CCU Subjective - Physician Review Subjective (Free Text): 01/16/18 17:19 Patient seen and examined at bedside in ICU. Remains altered, now moaning incoherently, few words. No acute events reported overnight. Hgb improved today s/p 1 unit pRBC transfusion, Hgb 8.1. Patient's BPs borderline hypotensive early this AM, but improved now. CCU Objective - Vital Signs / Intake & Output Vital Signs (Last 4 hours): Vital Signs Pulse Resp BP Pulse Ox 01/16/18 13:28 117/68 01/16/18 13:27 126 H 23 99 01/16/18 13:14 132 H 17 111/68 98 01/16/18 13:00 132 H 18 99 01/16/18 12:58 133 H 18 110/66 99 01/16/18 12:43 133 H 13 116/66 98 01/16/18 12:28 133 H 19 106/67 99 01/16/18 12:13 132 H 18 110/62 98 01/16/18 12:00 133 H 16 98 01/16/18 11:58 133 H 22 104/58 L 98 01/16/18 11:43 132 H 16 109/63 98 01/16/18 11:28 133 H 16 100/61 98 01/16/18 11:13 132 H 19 89/59 L 98 01/16/18 11:00 132 H 23 98 01/16/18 10:58 133 H 13 94/58 L 98 01/16/18 10:43 133 H 15 95/52 L 98 01/16/18 10:28 134 H 14 94/57 L 97 01/16/18 10:13 132 H 26 H 91/54 L 99 01/16/18 10:00 137 H 17 99 01/16/18 09:58 136 H 23 97/55 L 99 01/16/18 09:43 136 H 26 H 100/55 L 99 Intake and Output (Last 8hrs): Intake & Output 01/15/18 01/16/18 01/16/18 22:59 06:59 14:59 Intake Total 1545 800 700 Output Total 1800 1200 635 Balance -255 -400 65 Weight 66.48 kg Intake: Intake, IV Amount 900 800 700 Left Forearm 200 100 Left Forearm Y-site 300 350 350 Right Wrist 400 350 350 Blood Product 320 Red Blood Cells Cpd As1 0 Lr Unit [id number] Other 325 Red Blood Cells Cpd As1 325 Lr Unit [id number] Output: Urine 1800 1150 635 Urethral (Mendes) 1800 1150 635 Stool 50 - Physical Exam Head: Positive for: Atraumatic, Normocephalic Pupils: Positive for: PERRL. Negative for: Sluggish, Non-Reactive Extroacular Muscles: Negative for: EOMI (not following commands for EOMI testing ) Conjunctiva: Positive for: Normal. Negative for: Injected, Icteric Mouth: Positive for: Moist Mucous Membranes. Negative for: Drooling Nose (External): Positive for: Atraumatic. Negative for: Abrasion, Contusion, Laceration Nose (Internal): Positive for: No Active Bleeding. Negative for: Epistaxis Neck: Positive for: Normal Range of Motion (passive ROM intact, not following commands to assess active ROM), Trachea Midline. Negative for: JVD Respiratory/Chest: Positive for: Clear to Auscultation, Other (limited exam as not following commands to take deep breaths, but no appreciable rales/wheezes/ ronchi). Negative for: Respiratory Distress, Accessory Muscle Use, Wheezes, Rales, Rhonchi Cardiovascular: Positive for: Normal S1, S2, Peripheal Pulses Present (+2 dorsalis pedis and radials bilaterally), Tachycardic. Negative for: Irregular Rhythm, Bradycardic Abdomen: Positive for: Normal Bowel Sounds, Other (ostomy bag at RLQ, ostomy appears pink/patent, no surrounding erythema). Negative for: Distention Upper Extremity: Positive for: NORMAL PULSES, Other (wearing mitts to prevent pulling IVs). Negative for: Cyanosis, Edema, Swelling, Erythema, Deformity Lower Extremity: Positive for: Normal Inspection, NORMAL PULSES. Negative for: Edema, CALF TENDERNESS, Cyanosis, Swelling, Erythema, Deformity Neurological: Positive for: Motor Func Grossly Intact (not following commands, but no obvious deficits apparent in spontaneous movements of extremities, no facial droop appreciated). Negative for: GCS=15 (GCS 9 ([id number])) Skin: Positive for: Warm, Dry Psychiatric: Positive for: Other (Unable to determine since patient is demented and altered, speaking unintelligibly or with inappropriate words) - Medications Active Medications: Active Medications Generic Name Dose Route Start Last Admin Trade Name Freq PRN Reason Stop Dose Admin Dextrose 0 ml 01/14/18 15:10 Dextrose 50% Inj IV STAT PRN Hypoglycemia Protocol Protocol Dextrose 0 gm 01/14/18 15:10 Glutose 15 PO ONCE PRN Hypoglycemia Protocol Protocol Glucagon 0 mg 01/14/18 15:10 Glucagen Diagnostic Kit IM STAT PRN Hypoglycemia Protocol Protocol Heparin Sodium (Porcine) 5,000 units 01/14/18 01:45 01/16/18 12:58 Heparin SC 5,000 units Q12H NEL Administration Meropenem 500 mg/ Sodium 100 mls @ 100 mls/hr 01/14/18 01:00 01/16/18 01:00 Chloride IVPB 100 mls/hr Q24H NEL Administration Protocol Sodium Chloride 1,000 mls @ 50 mls/hr 01/14/18 01:45 01/15/18 21:19 Sodium Chloride 0.45% IV 50 mls/hr .Q20H NEL Administration Sodium Bicarbonate 150 meq/ 1,150 mls @ 50 mls/hr 01/14/18 02:36 01/16/18 02: 29 Dextrose IV 50 mls/hr .Q23H NEL Administration Dextrose 1,000 mls @ 0 mls/hr 01/14/18 15:10 Dextrose 5% In Water 1000 Ml IV .Q0M PRN Hypoglycemia Protocol Protocol Per Protocol Moxifloxacin HCl 400 mg in 250 mls @ 167 mls/hr 01/14/18 17:00 01/15/18 21:16 Avelox Iv 400mg/250ml Ns IVPB 167 mls/hr Q24H NEL Administration Protocol Daptomycin 400 mg/ Sodium 100 mls @ 100 mls/hr 01/14/18 23:00 01/14/18 23:46 Chloride IV 01/19/18 23:01 100 mls/hr Q48H NEL Administration Protocol Insulin Aspart 0 unit 01/14/18 06:00 01/16/18 12:41 Novolog SC Not Given Q6 NEL Protocol Insulin Detemir 10 unit 01/14/18 22:00 01/15/18 22:56 Levemir SC Not Given HS NEL Pantoprazole Sodium 40 mg 01/14/18 01:45 09/02/18 02:31 Protonix Inj IVP 40 mg Q12H NEL Administration Tamsulosin HCl 0.4 mg 01/14/18 10:00 01/16/18 09:37 Flomax PO Not Given DAILY NEL - Patient Studies Lab Studies: Microbiology Studies 01/13/18 17:40 S.aureus & Coag-Neg Staph PNA FISH - Final Blood Blood Culture - Final Enterococcus Faecalis Methicillin Resistant S Aureus Gram Stain - Final 01/13/18 17:40 Blood Culture - Final Blood Methicillin Resistant S Aureus Gram Stain - Final 01/14/18 06:07 MRSA Culture (Admit) - Final Nose MRSA DETECTED Lab Studies 01/16/18 01/16/18 01/16/18 Range/Units 12:06 06:32 06:32 WBC 11.2 H (4.8-10.8) K/uL RBC 3.02 L (4.40-5.90) Mil/uL Hgb 8.1 L (12.0-18.0) g/dL Hct 25.1 L (35.0-51.0) % MCV 83.0 (80.0-94.0) fL MCH 26.9 L (27.0-31.0) pg MCHC 32.4 L (33.0-37.0) g/dL RDW 16.4 H (11.5-14.5) % Plt Count 365 (130-400) K/uL MPV 8.0 (7.2-11.7) fL Neut % (Auto) 86.6 H (50.0-75.0) % Lymph % (Auto) 7.1 L (20.0-40.0) % [place] % (Auto) 5.0 (0.0-10.0) % Eos % (Auto) 1.0 (0.0-4.0) % Baso % (Auto) 0.3 (0.0-2.0) % Neut # (Auto) 9.7 H (1.8-7.0) K/uL Lymph # (Auto) 0.8 L (1.0-4.3) K/uL [place] # (Auto) 0.6 (0.0-0.8) K/uL Eos # (Auto) 0.1 (0.0-0.7) K/uL Baso # (Auto) 0.0 (0.0-0.2) K/uL Neutrophils % (Manual) 83 H (50-75) % Lymphocytes % (Manual) 9 L (20-40) % Monocytes % (Manual) 7 (0-10) % Eosinophils % (Manual) 1 (0-4) % Platelet Estimate Normal (NORMAL) Polychromasia Slight Hypochromasia (manual) Slight Poikilocytosis (manual Slight Anisocytosis (manual) Slight Ovalocytes Slight Teresa Cells Slight Sodium 162 H* (132-148) mmol/L Potassium 3.2 L (3.6-5.2) mmol/L Chloride 115 H (98-107) mmol/L Carbon Dioxide 30 (22-30) mmol/L Anion Gap 20 (10-20) BUN 87 H (9-20) mg/dL Creatinine 3.1 H (0.8-1.5) mg/dL Est GFR ( Amer) 24 Est GFR (Non-Af Amer) 20 POC Glucose (mg/dL) 185 H (65-110) mg/dL Random Glucose 127 H (75-110) mg/dL Calcium 9.0 (8.6-10.4) mg/dl Magnesium 2.0 (1.6-2.3) mg/dL Total Bilirubin 0.8 (0.2-1.3) mg/dL AST 28 (17-59) U/L ALT 28 (21-72) U/L Alkaline Phosphatase 139 H (38-126) U/L Total Protein 7.7 (6.3-8.3) g/dL Albumin 4.0 (3.5-5.0) g/dL Globulin 3.7 (2.2-3.9) gm/dL Albumin/Globulin Ratio 1.1 (1.0-2.1) Blood Type Antibody Screen 01/16/18 01/15/18 01/15/18 Range/Units 05:22 23:33 21:06 WBC (4.8-10.8) K/uL RBC (4.40-5.90) Mil/uL Hgb (12.0-18.0) g/dL Hct (35.0-51.0) % MCV (80.0-94.0) fL MCH (27.0-31.0) pg MCHC (33.0-37.0) g/dL RDW (11.5-14.5) % Plt Count (130-400) K/uL MPV (7.2-11.7) fL Neut % (Auto) (50.0-75.0) % Lymph % (Auto) (20.0-40.0) % [place] % (Auto) (0.0-10.0) % Eos % (Auto) (0.0-4.0) % Baso % (Auto) (0.0-2.0) % Neut # (Auto) (1.8-7.0) K/uL Lymph # (Auto) (1.0-4.3) K/uL [place] # (Auto) (0.0-0.8) K/uL Eos # (Auto) (0.0-0.7) K/uL Baso # (Auto) (0.0-0.2) K/uL Neutrophils % (Manual) (50-75) % Lymphocytes % (Manual) (20-40) % Monocytes % (Manual) (0-10) % Eosinophils % (Manual) (0-4) % Platelet Estimate (NORMAL) Polychromasia Hypochromasia (manual) Poikilocytosis (manual Anisocytosis (manual) Ovalocytes Teresa Cells Sodium (132-148) mmol/L Potassium (3.6-5.2) mmol/L Chloride (98-107) mmol/L Carbon Dioxide (22-30) mmol/L Anion Gap (10-20) BUN (9-20) mg/dL Creatinine (0.8-1.5) mg/dL Est GFR ( Amer) Est GFR (Non-Af Amer) POC Glucose (mg/dL) 118 H 93 97 (65-110) mg/dL Random Glucose (75-110) mg/dL Calcium (8.6-10.4) mg/dl Magnesium (1.6-2.3) mg/dL Total Bilirubin (0.2-1.3) mg/dL AST (17-59) U/L ALT (21-72) U/L Alkaline Phosphatase (38-126) U/L Total Protein (6.3-8.3) g/dL Albumin (3.5-5.0) g/dL Globulin (2.2-3.9) gm/dL Albumin/Globulin Ratio (1.0-2.1) Blood Type Antibody Screen 01/15/18 01/15/18 01/15/18 Range/Units 18:41 16:59 13:39 WBC 9.1 (4.8-10.8) K/uL RBC 2.34 L (4.40-5.90) Mil/uL Hgb 6.5 L* (12.0-18.0) g/dL Hct 19.6 L (35.0-51.0) % MCV 83.9 D (80.0-94.0) fL MCH 27.8 (27.0-31.0) pg MCHC 33.2 (33.0-37.0) g/dL RDW 16.9 H (11.5-14.5) % Plt Count 329 (130-400) K/uL MPV 7.2 (7.2-11.7) fL Neut % (Auto) 84.3 H (50.0-75.0) % Lymph % (Auto) 9.2 L (20.0-40.0) % [place] % (Auto) 3.6 (0.0-10.0) % Eos % (Auto) 1.5 (0.0-4.0) % Baso % (Auto) 1.4 (0.0-2.0) % Neut # (Auto) 7.7 H (1.8-7.0) K/uL Lymph # (Auto) 0.8 L (1.0-4.3) K/uL [place] # (Auto) 0.3 (0.0-0.8) K/uL Eos # (Auto) 0.1 (0.0-0.7) K/uL Baso # (Auto) 0.1 (0.0-0.2) K/uL Neutrophils % (Manual) 84 H (50-75) % Lymphocytes % (Manual) 9 L (20-40) % Monocytes % (Manual) 6 (0-10) % Eosinophils % (Manual) 1 (0-4) % Platelet Estimate Normal (NORMAL) Polychromasia Hypochromasia (manual) Slight Poikilocytosis (manual Anisocytosis (manual) Ovalocytes Teresa Cells Sodium (132-148) mmol/L Potassium (3.6-5.2) mmol/L Chloride (98-107) mmol/L Carbon Dioxide (22-30) mmol/L Anion Gap (10-20) BUN (9-20) mg/dL Creatinine (0.8-1.5) mg/dL Est GFR ( Amer) Est GFR (Non-Af Amer) POC Glucose (mg/dL) 87 (65-110) mg/dL Random Glucose (75-110) mg/dL Calcium (8.6-10.4) mg/dl Magnesium (1.6-2.3) mg/dL Total Bilirubin (0.2-1.3) mg/dL AST (17-59) U/L ALT (21-72) U/L Alkaline Phosphatase (38-126) U/L Total Protein (6.3-8.3) g/dL Albumin (3.5-5.0) g/dL Globulin (2.2-3.9) gm/dL Albumin/Globulin Ratio (1.0-2.1) Blood Type O POSITIVE Antibody Screen Negative 01/15/18 Range/Units 11:57 WBC (4.8-10.8) K/uL RBC (4.40-5.90) Mil/uL Hgb (12.0-18.0) g/dL Hct (35.0-51.0) % MCV (80.0-94.0) fL MCH (27.0-31.0) pg MCHC (33.0-37.0) g/dL RDW (11.5-14.5) % Plt Count (130-400) K/uL MPV (7.2-11.7) fL Neut % (Auto) (50.0-75.0) % Lymph % (Auto) (20.0-40.0) % [place] % (Auto) (0.0-10.0) % Eos % (Auto) (0.0-4.0) % Baso % (Auto) (0.0-2.0) % Neut # (Auto) (1.8-7.0) K/uL Lymph # (Auto) (1.0-4.3) K/uL [place] # (Auto) (0.0-0.8) K/uL Eos # (Auto) (0.0-0.7) K/uL Baso # (Auto) (0.0-0.2) K/uL Neutrophils % (Manual) (50-75) % Lymphocytes % (Manual) (20-40) % Monocytes % (Manual) (0-10) % Eosinophils % (Manual) (0-4) % Platelet Estimate (NORMAL) Polychromasia Hypochromasia (manual) Poikilocytosis (manual Anisocytosis (manual) Ovalocytes [place] Cells Sodium (132-148) mmol/L Potassium (3.6-5.2) mmol/L Chloride (98-107) mmol/L Carbon Dioxide (22-30) mmol/L Anion Gap (10-20) BUN (9-20) mg/dL Creatinine (0.8-1.5) mg/dL Est GFR ( Amer) Est GFR (Non-Af Amer) POC Glucose (mg/dL) 76 (65-110) mg/dL Random Glucose (75-110) mg/dL Calcium (8.6-10.4) mg/dl Magnesium (1.6-2.3) mg/dL Total Bilirubin (0.2-1.3) mg/dL AST (17-59) U/L ALT (21-72) U/L Alkaline Phosphatase (38-126) U/L Total Protein (6.3-8.3) g/dL Albumin (3.5-5.0) g/dL Globulin (2.2-3.9) gm/dL Albumin/Globulin Ratio (1.0-2.1) Blood Type Antibody Screen Laboratory Results - last 24 hr 01/15/18 01/15/18 01/15/18 11:57 13:39 16:59 WBC 9.1 RBC 2.34 L Hgb 6.5 L* Hct 19.6 L MCV 83.9 D MCH 27.8 MCHC 33.2 RDW 16.9 H Plt Count 329 MPV 7.2 Neut % (Auto) 84.3 H Lymph % (Auto) 9.2 L [place] % (Auto) 3.6 Eos % (Auto) 1.5 Baso % (Auto) 1.4 Neut # (Auto) 7.7 H Lymph # (Auto) 0.8 L [place] # (Auto) 0.3 Eos # (Auto) 0.1 Baso # (Auto) 0.1 Neutrophils % (Manual) 84 H Lymphocytes % (Manual) 9 L Monocytes % (Manual) 6 Eosinophils % (Manual) 1 Platelet Estimate Normal Polychromasia Hypochromasia (manual) Slight Poikilocytosis (manual Anisocytosis (manual) Ovalocytes [place] Cells Sodium Potassium Chloride Carbon Dioxide Anion Gap BUN Creatinine Est GFR ( Amer) Est GFR (Non-Af Amer) POC Glucose (mg/dL) 76 Random Glucose Calcium Magnesium Total Bilirubin AST ALT Alkaline Phosphatase Total Protein Albumin Globulin Albumin/Globulin Ratio Blood Type O POSITIVE Antibody Screen Negative 01/15/18 01/15/18 01/15/18 18:41 21:06 23:33 WBC RBC Hgb Hct MCV MCH MCHC RDW Plt Count MPV Neut % (Auto) Lymph % (Auto) [place] % (Auto) Eos % (Auto) Baso % (Auto) Neut # (Auto) Lymph # (Auto) [place] # (Auto) Eos # (Auto) Baso # (Auto) Neutrophils % (Manual) Lymphocytes % (Manual) Monocytes % (Manual) Eosinophils % (Manual) Platelet Estimate Polychromasia Hypochromasia (manual) Poikilocytosis (manual Anisocytosis (manual) Ovalocytes Teresa Cells Sodium Potassium Chloride Carbon Dioxide Anion Gap BUN Creatinine Est GFR ( Amer) Est GFR (Non-Af Amer) POC Glucose (mg/dL) 87 97 93 Random Glucose Calcium Magnesium Total Bilirubin AST ALT Alkaline Phosphatase Total Protein Albumin Globulin Albumin/Globulin Ratio Blood Type Antibody Screen 01/16/18 01/16/18 01/16/18 05:22 06:32 06:32 WBC 11.2 H RBC 3.02 L Hgb 8.1 L Hct 25.1 L MCV 83.0 MCH 26.9 L MCHC 32.4 L RDW 16.4 H Plt Count 365 MPV 8.0 Neut % (Auto) 86.6 H Lymph % (Auto) 7.1 L [place] % (Auto) 5.0 Eos % (Auto) 1.0 Baso % (Auto) 0.3 Neut # (Auto) 9.7 H Lymph # (Auto) 0.8 L [place] # (Auto) 0.6 Eos # (Auto) 0.1 Baso # (Auto) 0.0 Neutrophils % (Manual) 83 H Lymphocytes % (Manual) 9 L Monocytes % (Manual) 7 Eosinophils % (Manual) 1 Platelet Estimate Normal Polychromasia Slight Hypochromasia (manual) Slight Poikilocytosis (manual Slight Anisocytosis (manual) Slight Ovalocytes Slight Teresa Cells Slight Sodium 162 H* Potassium 3.2 L Chloride 115 H Carbon Dioxide 30 Anion Gap 20 BUN 87 H Creatinine 3.1 H Est GFR ( Amer) 24 Est GFR (Non-Af Amer) 20 POC Glucose (mg/dL) 118 H Random Glucose 127 H Calcium 9.0 Magnesium 2.0 Total Bilirubin 0.8 AST 28 ALT 28 Alkaline Phosphatase 139 H Total Protein 7.7 Albumin 4.0 Globulin 3.7 Albumin/Globulin Ratio 1.1 Blood Type Antibody Screen 01/16/18 12:06 WBC RBC Hgb Hct MCV MCH MCHC RDW Plt Count MPV Neut % (Auto) Lymph % (Auto) [place] % (Auto) Eos % (Auto) Baso % (Auto) Neut # (Auto) Lymph # (Auto) [place] # (Auto) Eos # (Auto) Baso # (Auto) Neutrophils % (Manual) Lymphocytes % (Manual) Monocytes % (Manual) Eosinophils % (Manual) Platelet Estimate Polychromasia Hypochromasia (manual) Poikilocytosis (manual Anisocytosis (manual) Ovalocytes Teresa Cells Sodium Potassium Chloride Carbon Dioxide Anion Gap BUN Creatinine Est GFR ( Amer) Est GFR (Non-Af Amer) POC Glucose (mg/dL) 185 H Random Glucose Calcium Magnesium Total Bilirubin AST ALT Alkaline Phosphatase Total Protein Albumin Globulin Albumin/Globulin Ratio Blood Type Antibody Screen Fingerstick Blood Sugar Results: 118 Review of Systems - Review of Systems Systems not reviewed;Unavailable: Altered Mental Status Critical Care Progress Note - Nutrition Nutrition: Nutrition Category Date Time Status NPO Diet [DIET] Diets 01/14/18 Breakfast Active Assessment/Plan - Assessment and Plan (Free Text) Assessment: 72 year old male with history of dementia, DM, BPH and CKD [facility] was found altered after he had been refusing to eat. Patient is altered and unable to provide history. Patient was found to be hyperkalemic, and in acute kidney injury with abnormal Cr and BUN. ICU consulted for management of significant electrolyte imbalances. JOY is improving, but electrolyte abnormalities continue to persist. Hgb improved post- transfusion. Plan: Neuro: -Altered mental status -Head CT: No acute intracranial pathology. Age-related changes. No significant interval change. -Keep NPO until mental status improves -U Tox: negative -Valproic acid <10.0, unsurprising in context of patient refusing meds at [facility] Cardiovascular: -Chronic systolic heart failure, admission proBNP 8010 -Troponin 0.0730 -->0.0710 -->0.0550 -Echo notable for EF 15-20%, indeterminate diastolic function, severe LV global hypokinesia, moderately reduced RV systolic fxn, LA mildly dilated, mild MR/TR -Tachy to 130s persistently today with mildly decreased BP, appeared sinus tachy , Digoxin x1 0.25mg IV given for rate control, rate improved to 90's-110's, then abruptly decreased to 60's, irregular but with P waves on monitor Concerning for AV block, further digoxin held, STAT EKG ordered, will f/u STAT Mg, Phos, K, Ca, and Albumin levels ordered, will f/u -Strict I's and O's -Hgb improved from 6.5 to 8.1 s/p 1 unit pRBCs, no indication for further transfusion Pulmonary: -Currently on O2 via NC 2L, satting well -CXR: no acute disease GI: -Protonix 40mg Q12 IV -Abd US: Limited study; Increased echogenicity of the hepatic parenchymal cortex suggestive for fatty infiltration versus hepatic parenchymal disease; top normal wall thickness of the gallbladder measuring 3 millimeters; mildly ectatic and prominent distal abdominal aorta measuring up to 2.9 centimeters; bilateral renal cysts -Stool occult negative for blood Renal: -Acute kidney injury on CKD, likely 2/2 refusing PO intake; improving -BUN 219 on admission, 77 today -Cr 10.7 on admission, 3.0 today -Serum osmolarity 410, Urine osmolality 475 -Ur random Cr 94 Urine Na 64 urine urea nitrogen 476 -Known hx of CKD, so FeNa unreliable -Initial Na 156, K 8 --> today: Na 162, K 3.3; Na worsening despite 1/2 NS and albumin DDAVP not normally considered for GFR < 50, but given persistently worsening sodium, will trial 1 dose at 0.4 mcg/kg dosing and reassess -continue Bicarb 150mEq drip @ 50cc/hr, 1/2 NS @ 50cc/hr ID -WBCs increased to 11.2 today -ID (Dr. Barnett) consulted, help appreciated -switched to Daptomycin QOD, continue -Blood cx x2 positive for MRSA, 1x blood cx also positive for E faecalis, urine culture positive for MRSA > 100k CFUs -UA: 3+ LE 3+ blood 2+ protein -VBG lactate 1.3 --> 2.0 (on 01/13), serum lactate 1.8 (on 01/14) Heme -Hgb improved from 6.5 to 8.1 s/p 1 unit pRBCs, appropriate response -no signs of acute bleeding and stool occult negative, more likely dilutional effect from IVF in patient who was likely hemoconcetrated 2/2 minimal PO intake Endo -continue Levemir 10unit SC HS, continue accuchecks Dispo: ICU, s/p DDAVP, pending reassessment of sodium levels, pending STAT EKG for acute arrhythmia, FEN: NPO, 1/2 NS 50cc/hr, Bicarb drip at 50cc/hr Access: Peripheral IVs Consults: ICU, ID Ppx: Protonix for GI, SCDs for DVT (no AC in setting of anemia requiring transfusion) Code Status: Unknown, so Full by default Reviewed and discussed with attending, Dr. Greenfield. <Joaquin Greenfield - Last Filed: 01/17/18 12:04> CCU Objective - Vital Signs / Intake & Output Vital Signs (Last 4 hours): Vital Signs Pulse Resp BP Pulse Ox 01/17/18 11:58 57 L 25 H 136/50 L 100 01/17/18 11:00 60 12 98 01/17/18 10:58 58 L 19 146/57 L 99 01/17/18 10:00 60 19 99 01/17/18 09:58 63 21 143/54 L 100 01/17/18 09:00 63 10 L 99 01/17/18 08:58 58 L 17 137/87 100 Intake and Output (Last 8hrs): Intake & Output 01/16/18 01/17/18 01/17/18 22:59 06:59 14:59 Intake Total 900 1000 200 Output Total 640 725 175 Balance 260 275 25 Weight 164 lb 3 oz Intake: Intake, IV Amount 900 1000 200 Left Forearm 100 150 Left Forearm Y-site 400 400 100 Right Hand 50 Right Wrist 400 400 100 Output: Urine 640 675 175 Urethral ([place]) 640 675 175 Stool 50 - Medications Active Medications: Active Medications Generic Name Dose Route Start Last Admin Trade Name Freq PRN Reason Stop Dose Admin Dextrose 0 ml 01/14/18 15:10 Dextrose 50% Inj IV STAT PRN Hypoglycemia Protocol Protocol Dextrose 0 gm 01/14/18 15:10 Glutose 15 PO ONCE PRN Hypoglycemia Protocol Protocol Glucagon 0 mg 01/14/18 15:10 Glucagen Diagnostic Kit IM STAT PRN Hypoglycemia Protocol Protocol Heparin Sodium (Porcine) 5,000 units 01/14/18 01:45 01/17/18 02:19 Heparin SC 5,000 units Q12H NEL Administration Dextrose 1,000 mls @ 0 mls/hr 01/14/18 15:10 Dextrose 5% In Water 1000 Ml IV .Q0M PRN Hypoglycemia Protocol Protocol Per Protocol Daptomycin 400 mg/ Sodium 100 mls @ 100 mls/hr 01/14/18 23:00 01/16/18 23:49 Chloride IV 01/19/18 23:01 100 mls/hr Q48H NEL Administration Protocol Desmopressin Acetate 26 mcg/ 56.5 mls @ 100 mls/hr 01/17/18 12:15 Sodium Chloride IV 01/17/18 12:48 ONCE ONE Dextrose 500 mls @ 50 mls/hr 01/17/18 12:00 Dextrose 5% In Water IV 01/19/18 12:01 .Q10H NEL Insulin Aspart 0 unit 01/14/18 06:00 01/17/18 05:54 Novolog SC Not Given Q6 [facility] Protocol Insulin Detemir 10 unit 01/14/18 22:00 01/16/18 21:58 Levemir SC 10 u HS NEL Administration Pantoprazole Sodium 40 mg 01/18/18 10:00 Protonix Inj IVP DAILY NEL Tamsulosin HCl 0.4 mg 01/14/18 10:00 01/17/18 10:23 Flomax PO 0.4 mg DAILY NEL Administration - Patient Studies Lab Studies: Microbiology Studies 01/13/18 17:40 S.aureus & Coag-Neg Staph PNA FISH - Final Blood Blood Culture - Final Enterococcus Faecalis Methicillin Resistant S Aureus Gram Stain - Final 01/13/18 17:40 Blood Culture - Final Blood Methicillin Resistant S Aureus Gram Stain - Final Lab Studies 01/17/18 01/17/18 01/17/18 Range/Units 11:49 06:36 06:33 WBC 11.3 H (4.8-10.8) K/uL RBC 2.90 L (4.40-5.90) Mil/uL Hgb 7.7 L (12.0-18.0) g/dL Hct 24.7 L (35.0-51.0) % MCV 85.0 D (80.0-94.0) fL MCH 26.5 L (27.0-31.0) pg MCHC 31.2 L (33.0-37.0) g/dL RDW 16.5 H (11.5-14.5) % Plt Count 337 (130-400) K/uL MPV 8.0 (7.2-11.7) fL Neut % (Auto) 86.1 H (50.0-75.0) % Lymph % (Auto) 6.9 L (20.0-40.0) % [place] % (Auto) 5.5 (0.0-10.0) % Eos % (Auto) 0.5 (0.0-4.0) % Baso % (Auto) 1.0 (0.0-2.0) % Neut # (Auto) 9.7 H (1.8-7.0) K/uL Lymph # (Auto) 0.8 L (1.0-4.3) K/uL [place] # (Auto) 0.6 (0.0-0.8) K/uL Eos # (Auto) 0.1 (0.0-0.7) K/uL Baso # (Auto) 0.1 (0.0-0.2) K/uL Neutrophils % (Manual) 84 H (50-75) % Band Neutrophils % 3 H (0-2) % Lymphocytes % (Manual) 7 L (20-40) % Monocytes % (Manual) 5 (0-10) % Eosinophils % (Manual) 1 (0-4) % Platelet Estimate Normal (NORMAL) Hypochromasia (manual) Slight Anisocytosis (manual) Slight Sodium 163 H* (132-148) mmol/L Potassium 3.3 L (3.6-5.2) mmol/L Chloride 115 H (98-107) mmol/L Carbon Dioxide 34 H (22-30) mmol/L Anion Gap 17 (10-20) BUN 67 H (9-20) mg/dL Creatinine 2.6 H (0.8-1.5) mg/dL Est GFR ( Amer) 30 Est GFR (Non-Af Amer) 24 POC Glucose (mg/dL) 140 H (65-110) mg/dL Random Glucose 153 H (75-110) mg/dL Calcium 9.0 (8.6-10.4) mg/dl Phosphorus (2.5-4.5) mg/dL Magnesium 2.0 (1.6-2.3) mg/dL Total Bilirubin 0.8 (0.2-1.3) mg/dL AST 38 (17-59) U/L ALT 25 (21-72) U/L Alkaline Phosphatase 128 H (38-126) U/L Total Protein 7.7 (6.3-8.3) g/dL Albumin 3.8 (3.5-5.0) g/dL Globulin 3.9 (2.2-3.9) gm/dL Albumin/Globulin Ratio 1.0 (1.0-2.1) Opiates (GC/MS) Methadone (GC/MS) Propoxyphenes Barbiturates Phencyclidine (PCP) Amphetamines Benzodiazepines Cocaine & Metabolite Marijuana Drugs of Abuse Comment 01/17/18 01/16/18 01/16/18 Range/Units 05:21 23:59 21:01 WBC (4.8-10.8) K/uL RBC (4.40-5.90) Mil/uL Hgb (12.0-18.0) g/dL Hct (35.0-51.0) % MCV (80.0-94.0) fL MCH (27.0-31.0) pg MCHC (33.0-37.0) g/dL RDW (11.5-14.5) % Plt Count (130-400) K/uL MPV (7.2-11.7) fL Neut % (Auto) (50.0-75.0) % Lymph % (Auto) (20.0-40.0) % [place] % (Auto) (0.0-10.0) % Eos % (Auto) (0.0-4.0) % Baso % (Auto) (0.0-2.0) % Neut # (Auto) (1.8-7.0) K/uL Lymph # (Auto) (1.0-4.3) K/uL [place] # (Auto) (0.0-0.8) K/uL Eos # (Auto) (0.0-0.7) K/uL Baso # (Auto) (0.0-0.2) K/uL Neutrophils % (Manual) (50-75) % Band Neutrophils % (0-2) % Lymphocytes % (Manual) (20-40) % Monocytes % (Manual) (0-10) % Eosinophils % (Manual) (0-4) % Platelet Estimate (NORMAL) Hypochromasia (manual) Anisocytosis (manual) Sodium (132-148) mmol/L Potassium (3.6-5.2) mmol/L Chloride (98-107) mmol/L Carbon Dioxide (22-30) mmol/L Anion Gap (10-20) BUN (9-20) mg/dL Creatinine (0.8-1.5) mg/dL Est GFR ( Amer) Est GFR (Non-Af Amer) POC Glucose (mg/dL) 154 H 185 H 182 H (65-110) mg/dL Random Glucose (75-110) mg/dL Calcium (8.6-10.4) mg/dl Phosphorus (2.5-4.5) mg/dL Magnesium (1.6-2.3) mg/dL Total Bilirubin (0.2-1.3) mg/dL AST (17-59) U/L ALT (21-72) U/L Alkaline Phosphatase (38-126) U/L Total Protein (6.3-8.3) g/dL Albumin (3.5-5.0) g/dL Globulin (2.2-3.9) gm/dL Albumin/Globulin Ratio (1.0-2.1) Opiates (GC/MS) Methadone (GC/MS) Propoxyphenes Barbiturates Phencyclidine (PCP) Amphetamines Benzodiazepines Cocaine & Metabolite Marijuana Drugs of Abuse Comment 01/16/18 01/16/18 01/16/18 Range/Units 18:06 17:30 13:33 WBC (4.8-10.8) K/uL RBC (4.40-5.90) Mil/uL Hgb (12.0-18.0) g/dL Hct (35.0-51.0) % MCV (80.0-94.0) fL MCH (27.0-31.0) pg MCHC (33.0-37.0) g/dL RDW (11.5-14.5) % Plt Count (130-400) K/uL MPV (7.2-11.7) fL Neut % (Auto) (50.0-75.0) % Lymph % (Auto) (20.0-40.0) % [place] % (Auto) (0.0-10.0) % Eos % (Auto) (0.0-4.0) % Baso % (Auto) (0.0-2.0) % Neut # (Auto) (1.8-7.0) K/uL Lymph # (Auto) (1.0-4.3) K/uL [place] # (Auto) (0.0-0.8) K/uL Eos # (Auto) (0.0-0.7) K/uL Baso # (Auto) (0.0-0.2) K/uL Neutrophils % (Manual) (50-75) % Band Neutrophils % (0-2) % Lymphocytes % (Manual) (20-40) % Monocytes % (Manual) (0-10) % Eosinophils % (Manual) (0-4) % Platelet Estimate (NORMAL) Hypochromasia (manual) Anisocytosis (manual) Sodium 160 H* (132-148) mmol/L Potassium 3.8 3.3 L (3.6-5.2) mmol/L Chloride 114 H (98-107) mmol/L Carbon Dioxide 29 (22-30) mmol/L Anion Gap 20 (10-20) BUN 77 H (9-20) mg/dL Creatinine 3.0 H (0.8-1.5) mg/dL Est GFR ( Amer) 25 Est GFR (Non-Af Amer) 21 POC Glucose (mg/dL) 213 H (65-110) mg/dL Random Glucose 205 H (75-110) mg/dL Calcium 8.7 8.9 (8.6-10.4) mg/dl Phosphorus 4.0 (2.5-4.5) mg/dL Magnesium 1.9 (1.6-2.3) mg/dL Total Bilirubin (0.2-1.3) mg/dL AST (17-59) U/L ALT (21-72) U/L Alkaline Phosphatase (38-126) U/L Total Protein (6.3-8.3) g/dL Albumin 3.8 (3.5-5.0) g/dL Globulin (2.2-3.9) gm/dL Albumin/Globulin Ratio (1.0-2.1) Opiates (GC/MS) Methadone (GC/MS) Propoxyphenes Barbiturates Phencyclidine (PCP) Amphetamines Benzodiazepines Cocaine & Metabolite Marijuana Drugs of Abuse Comment 01/16/18 01/13/18 Range/Units 12:06 22:34 WBC (4.8-10.8) K/uL RBC (4.40-5.90) Mil/uL Hgb (12.0-18.0) g/dL Hct (35.0-51.0) % MCV (80.0-94.0) fL MCH (27.0-31.0) pg MCHC (33.0-37.0) g/dL RDW (11.5-14.5) % Plt Count (130-400) K/uL MPV (7.2-11.7) fL Neut % (Auto) (50.0-75.0) % Lymph % (Auto) (20.0-40.0) % [place] % (Auto) (0.0-10.0) % Eos % (Auto) (0.0-4.0) % Baso % (Auto) (0.0-2.0) % Neut # (Auto) (1.8-7.0) K/uL Lymph # (Auto) (1.0-4.3) K/uL [place] # (Auto) (0.0-0.8) K/uL Eos # (Auto) (0.0-0.7) K/uL Baso # (Auto) (0.0-0.2) K/uL Neutrophils % (Manual) (50-75) % Band Neutrophils % (0-2) % Lymphocytes % (Manual) (20-40) % Monocytes % (Manual) (0-10) % Eosinophils % (Manual) (0-4) % Platelet Estimate (NORMAL) Hypochromasia (manual) Anisocytosis (manual) Sodium (132-148) mmol/L Potassium (3.6-5.2) mmol/L Chloride (98-107) mmol/L Carbon Dioxide (22-30) mmol/L Anion Gap (10-20) BUN (9-20) mg/dL Creatinine (0.8-1.5) mg/dL Est GFR ( Amer) Est GFR (Non-Af Amer) POC Glucose (mg/dL) 185 H (65-110) mg/dL Random Glucose (75-110) mg/dL Calcium (8.6-10.4) mg/dl Phosphorus (2.5-4.5) mg/dL Magnesium (1.6-2.3) mg/dL Total Bilirubin (0.2-1.3) mg/dL AST (17-59) U/L ALT (21-72) U/L Alkaline Phosphatase (38-126) U/L Total Protein (6.3-8.3) g/dL Albumin (3.5-5.0) g/dL Globulin (2.2-3.9) gm/dL Albumin/Globulin Ratio (1.0-2.1) Opiates (GC/MS) negative Methadone (GC/MS) negative Propoxyphenes negative Barbiturates negative Phencyclidine (PCP) negative Amphetamines negative Benzodiazepines negative Cocaine & Metabolite negative Marijuana negative Drugs of Abuse Comment See note Laboratory Results - last 24 hr 01/13/18 01/16/18 01/16/18 22:34 12:06 13:33 WBC RBC Hgb Hct MCV MCH MCHC RDW Plt Count MPV Neut % (Auto) Lymph % (Auto) [place] % (Auto) Eos % (Auto) Baso % (Auto) Neut # (Auto) Lymph # (Auto) [place] # (Auto) Eos # (Auto) Baso # (Auto) Neutrophils % (Manual) Band Neutrophils % Lymphocytes % (Manual) Monocytes % (Manual) Eosinophils % (Manual) Platelet Estimate Hypochromasia (manual) Anisocytosis (manual) Sodium 160 H* Potassium 3.3 L Chloride 114 H Carbon Dioxide 29 Anion Gap 20 BUN 77 H Creatinine 3.0 H Est GFR ( Amer) 25 Est GFR (Non-Af Amer) 21 POC Glucose (mg/dL) 185 H Random Glucose 205 H Calcium 8.9 Phosphorus Magnesium Total Bilirubin AST ALT Alkaline Phosphatase Total Protein Albumin Globulin Albumin/Globulin Ratio Opiates (GC/MS) negative Methadone (GC/MS) negative Propoxyphenes negative Barbiturates negative Phencyclidine (PCP) negative Amphetamines negative Benzodiazepines negative Cocaine & Metabolite negative Marijuana negative Drugs of Abuse Comment See note 01/16/18 01/16/18 01/16/18 17:30 18:06 21:01 WBC RBC Hgb Hct MCV MCH MCHC RDW Plt Count MPV Neut % (Auto) Lymph % (Auto) [place] % (Auto) Eos % (Auto) Baso % (Auto) Neut # (Auto) Lymph # (Auto) [place] # (Auto) Eos # (Auto) Baso # (Auto) Neutrophils % (Manual) Band Neutrophils % Lymphocytes % (Manual) Monocytes % (Manual) Eosinophils % (Manual) Platelet Estimate Hypochromasia (manual) Anisocytosis (manual) Sodium Potassium 3.8 Chloride Carbon Dioxide Anion Gap BUN Creatinine Est GFR ( Amer) Est GFR (Non-Af Amer) POC Glucose (mg/dL) 213 H 182 H Random Glucose Calcium 8.7 Phosphorus 4.0 Magnesium 1.9 Total Bilirubin AST ALT Alkaline Phosphatase Total Protein Albumin 3.8 Globulin Albumin/Globulin Ratio Opiates (GC/MS) Methadone (GC/MS) Propoxyphenes Barbiturates Phencyclidine (PCP) Amphetamines Benzodiazepines Cocaine & Metabolite Marijuana Drugs of Abuse Comment 01/16/18 01/17/18 01/17/18 23:59 05:21 06:33 WBC RBC Hgb Hct MCV MCH MCHC RDW Plt Count MPV Neut % (Auto) Lymph % (Auto) [place] % (Auto) Eos % (Auto) Baso % (Auto) Neut # (Auto) Lymph # (Auto) [place] # (Auto) Eos # (Auto) Baso # (Auto) Neutrophils % (Manual) Band Neutrophils % Lymphocytes % (Manual) Monocytes % (Manual) Eosinophils % (Manual) Platelet Estimate Hypochromasia (manual) Anisocytosis (manual) Sodium 163 H* Potassium 3.3 L Chloride 115 H Carbon Dioxide 34 H Anion Gap 17 BUN 67 H Creatinine 2.6 H Est GFR ( Amer) 30 Est GFR (Non-Af Amer) 24 POC Glucose (mg/dL) 185 H 154 H Random Glucose 153 H Calcium 9.0 Phosphorus Magnesium 2.0 Total Bilirubin 0.8 AST 38 ALT 25 Alkaline Phosphatase 128 H Total Protein 7.7 Albumin 3.8 Globulin 3.9 Albumin/Globulin Ratio 1.0 Opiates (GC/MS) Methadone (GC/MS) Propoxyphenes Barbiturates Phencyclidine (PCP) Amphetamines Benzodiazepines Cocaine & Metabolite Marijuana Drugs of Abuse Comment 01/17/18 01/17/18 06:36 11:49 WBC 11.3 H RBC 2.90 L Hgb 7.7 L Hct 24.7 L MCV 85.0 D MCH 26.5 L MCHC 31.2 L RDW 16.5 H Plt Count 337 MPV 8.0 Neut % (Auto) 86.1 H Lymph % (Auto) 6.9 L [place] % (Auto) 5.5 Eos % (Auto) 0.5 Baso % (Auto) 1.0 Neut # (Auto) 9.7 H Lymph # (Auto) 0.8 L [place] # (Auto) 0.6 Eos # (Auto) 0.1 Baso # (Auto) 0.1 Neutrophils % (Manual) 84 H Band Neutrophils % 3 H Lymphocytes % (Manual) 7 L Monocytes % (Manual) 5 Eosinophils % (Manual) 1 Platelet Estimate Normal Hypochromasia (manual) Slight Anisocytosis (manual) Slight Sodium Potassium Chloride Carbon Dioxide Anion Gap BUN Creatinine Est GFR ( Amer) Est GFR (Non-Af Amer) POC Glucose (mg/dL) 140 H Random Glucose Calcium Phosphorus Magnesium Total Bilirubin AST ALT Alkaline Phosphatase Total Protein Albumin Globulin Albumin/Globulin Ratio Opiates (GC/MS) Methadone (GC/MS) Propoxyphenes Barbiturates Phencyclidine (PCP) Amphetamines Benzodiazepines Cocaine & Metabolite Marijuana Drugs of Abuse Comment EKG/Cardiology Studies: Cardiology / EKG Studies 01/16/18 17:43 EKG [ELECTROCARDIOGRAM] Stat Comment: Mode Of Transportation: Reason For Exam: abrupt bradycardia, possible AV block Critical Care Progress Note - Nutrition Nutrition: Nutrition Category Date Time Status NPO Diet [DIET] Diets 01/14/18 Breakfast Active Attending/Attestation - Attestation I have personally seen and examined this patient.: Yes I have fully participated in the care of the patient.: Yes I have reviewed all pertinent clinical information: Yes
[2018-01-16 14:00] LABS: CALCIUM 8.9 mg/dl (8.6-10.4)
--- NOTE | 2018-01-16 15:21 | CP.PCM.CON ---
History of Present Illness - History of Present Illness History of Present Illness: 72 y/o male, w/PMhx of diabetes and dementia, brought to ER from [place] [facility] for evaluation after he refused to eat and take his medications. Patient has a colostomy bag for an unknown reason. Of note, HPI is limited because patient is nonverbal. on Vanco/ merrem avelox blood growing MRSA and enterococcus CXR clear - Medical History PMH: Anemia, Dementia Denies: Chronic Kidney Disease Surgical History: No Surg Hx Family History: States: No Known Family Hx Review of Systems - Review of Systems All systems: reviewed and no additional remarkable complaints except Past Patient History - Infectious Disease Hx of Infectious Diseases: None - Tetanus Immunizations Tetanus Immunization: Unknown - Past Medical History & Family History Past Medical History?: Yes - Past Social History Smoking Status: Unknown If Ever Smoked - CARDIAC Hx Cardiac Disorders: Yes Hx Hypertension: Yes - PULMONARY Hx Respiratory Disorders: Yes - NEUROLOGICAL Hx Dementia: Yes - HEENT Hx HEENT Problems: No - RENAL Hx Chronic Kidney Disease: No - ENDOCRINE/METABOLIC Hx Diabetes Mellitus Type 2: Yes - HEMATOLOGICAL/ONCOLOGICAL Hx Anemia: Yes - INTEGUMENTARY Hx Dermatological Problems: No - MUSCULOSKELETAL/RHEUMATOLOGICAL Hx Falls: No - GASTROINTESTINAL Hx Gastrointestinal Disorders: No Hx Colostomy: Yes - GENITOURINARY/GYNECOLOGICAL Hx Genitourinary Disorders: No - PSYCHIATRIC Hx Substance Use: No - SURGICAL HISTORY Hx Surgeries: No Other/Comment: unable to obtain informations - ANESTHESIA Hx Anesthesia: No Hx Anesthesia Reactions: No Meds Allergies/Adverse Reactions: Allergies Allergy/AdvReac Type Severity Reaction Status Date / Time No Known Allergies Allergy Verified 01/13/18 17:08 - Medications Medications: Current Medications Dextrose (Dextrose 50% Inj) 0 ml IV STAT PRN; Protocol PRN Reason: Hypoglycemia Protocol Dextrose (Glutose 15) 0 gm PO ONCE PRN; Protocol PRN Reason: Hypoglycemia Protocol Glucagon (Glucagen Diagnostic Kit) 0 mg IM STAT PRN; Protocol PRN Reason: Hypoglycemia Protocol Heparin Sodium (Porcine) (Heparin) 5,000 units SC Q12H [facility] Last Admin: 01/16/18 12:58 Dose: 5,000 units Sodium Chloride (Sodium Chloride 0.45%) 1,000 mls @ 50 mls/hr IV .Q20H [facility] Last Admin: 01/15/18 21:19 Dose: 50 mls/hr Sodium Bicarbonate 150 meq/ (Dextrose) 1,150 mls @ 50 mls/hr IV .Q23H [facility] Last Admin: 01/16/18 02:29 Dose: 50 mls/hr Dextrose (Dextrose 5% In Water 1000 Ml) 1,000 mls @ 0 mls/hr IV .Q0M PRN; Protocol; Per Protocol PRN Reason: Hypoglycemia Protocol Daptomycin 400 mg/ Sodium (Chloride) 100 mls @ 100 mls/hr IV Q48H [facility] PRN Reason: Protocol Stop: 01/19/18 23:01 Last Admin: 01/14/18 23:46 Dose: 100 mls/hr Insulin Aspart (Novolog) 0 unit SC Q6 [facility] PRN Reason: Protocol Last Admin: 01/16/18 12:41 Dose: Not Given Insulin Detemir (Levemir) 10 unit SC HS [facility] Last Admin: 01/15/18 22:56 Dose: Not Given Pantoprazole Sodium (Protonix Inj) 40 mg IVP Q12H [facility] Last Admin: 01/16/18 02:31 Dose: 40 mg Tamsulosin HCl (Flomax) 0.4 mg PO DAILY [facility] Last Admin: 01/16/18 09:37 Dose: Not Given Physical Exam - Constitutional Appears: Confused, Cachectic, Chronically Ill - Head Exam Head Exam: ATRAUMATIC, NORMOCEPHALIC - Eye Exam Eye Exam: PERRL Pupil Exam: NORMAL ACCOMODATION - ENT Exam ENT Exam: Mucous Membranes Dry - Neck Exam Neck exam: Negative for: Lymphadenopathy - Respiratory Exam Respiratory Exam: Decreased Breath Sounds, Clear to Auscultation Bilateral - Cardiovascular Exam Cardiovascular Exam: REGULAR RHYTHM, +S1, +S2 - GI/Abdominal Exam GI & Abdominal Exam: Diminished Bowel Sounds, Distended, Soft. absent: Tenderness Additional comments: ostomy + - Rectal Exam Rectal Exam: Deferred - Exam Exam: NORMAL INSPECTION - Extremities Exam Extremities exam: Negative for: pedal edema - Back Exam Back exam: absent: CVA tenderness (L), CVA tenderness (R) - Neurological Exam Neurological exam: Altered - Psychiatric Exam Psychiatric exam: Depressed - Skin Skin Exam: Dry Results - Vital Signs Recent Vital Signs: Last Vital Signs Temp 98.9 F 01/16/18 08:00 Pulse 129 H 01/16/18 14:28 Resp 28 H 01/16/18 14:28 BP 119/72 01/16/18 14:28 Pulse Ox 98 01/16/18 14:28 - Labs Result Diagrams: 01/16/18 06:32 01/16/18 13:33 Labs: Laboratory Results - last 24 hr 01/15/18 01/15/18 01/15/18 11:57 13:39 16:59 WBC 9.1 RBC 2.34 L Hgb 6.5 L* Hct 19.6 L MCV 83.9 D MCH 27.8 MCHC 33.2 RDW 16.9 H Plt Count 329 MPV 7.2 Neut % (Auto) 84.3 H Lymph % (Auto) 9.2 L [place] % (Auto) 3.6 Eos % (Auto) 1.5 Baso % (Auto) 1.4 Neut # (Auto) 7.7 H Lymph # (Auto) 0.8 L [place] # (Auto) 0.3 Eos # (Auto) 0.1 Baso # (Auto) 0.1 Neutrophils % (Manual) 84 H Lymphocytes % (Manual) 9 L Monocytes % (Manual) 6 Eosinophils % (Manual) 1 Platelet Estimate Normal Polychromasia Hypochromasia (manual) Slight Poikilocytosis (manual Anisocytosis (manual) Ovalocytes [place] Cells Sodium Potassium Chloride Carbon Dioxide Anion Gap BUN Creatinine Est GFR ( Amer) Est GFR (Non-Af Amer) POC Glucose (mg/dL) 76 Random Glucose Calcium Magnesium Total Bilirubin AST ALT Alkaline Phosphatase Total Protein Albumin Globulin Albumin/Globulin Ratio Blood Type O POSITIVE Antibody Screen Negative 01/15/18 01/15/18 01/15/18 18:41 21:06 23:33 WBC RBC Hgb Hct MCV MCH MCHC RDW Plt Count MPV Neut % (Auto) Lymph % (Auto) [place] % (Auto) Eos % (Auto) Baso % (Auto) Neut # (Auto) Lymph # (Auto) [place] # (Auto) Eos # (Auto) Baso # (Auto) Neutrophils % (Manual) Lymphocytes % (Manual) Monocytes % (Manual) Eosinophils % (Manual) Platelet Estimate Polychromasia Hypochromasia (manual) Poikilocytosis (manual Anisocytosis (manual) Ovalocytes [place] Cells Sodium Potassium Chloride Carbon Dioxide Anion Gap BUN Creatinine Est GFR ( Amer) Est GFR (Non-Af Amer) POC Glucose (mg/dL) 87 97 93 Random Glucose Calcium Magnesium Total Bilirubin AST ALT Alkaline Phosphatase Total Protein Albumin Globulin Albumin/Globulin Ratio Blood Type Antibody Screen 01/16/18 01/16/18 01/16/18 05:22 06:32 06:32 WBC 11.2 H RBC 3.02 L Hgb 8.1 L Hct 25.1 L MCV 83.0 MCH 26.9 L MCHC 32.4 L RDW 16.4 H Plt Count 365 MPV 8.0 Neut % (Auto) 86.6 H Lymph % (Auto) 7.1 L [place] % (Auto) 5.0 Eos % (Auto) 1.0 Baso % (Auto) 0.3 Neut # (Auto) 9.7 H Lymph # (Auto) 0.8 L [place] # (Auto) 0.6 Eos # (Auto) 0.1 Baso # (Auto) 0.0 Neutrophils % (Manual) 83 H Lymphocytes % (Manual) 9 L Monocytes % (Manual) 7 Eosinophils % (Manual) 1 Platelet Estimate Normal Polychromasia Slight Hypochromasia (manual) Slight Poikilocytosis (manual Slight Anisocytosis (manual) Slight Ovalocytes Slight [place] Cells Slight Sodium 162 H* Potassium 3.2 L Chloride 115 H Carbon Dioxide 30 Anion Gap 20 BUN 87 H Creatinine 3.1 H Est GFR ( Amer) 24 Est GFR (Non-Af Amer) 20 POC Glucose (mg/dL) 118 H Random Glucose 127 H Calcium 9.0 Magnesium 2.0 Total Bilirubin 0.8 AST 28 ALT 28 Alkaline Phosphatase 139 H Total Protein 7.7 Albumin 4.0 Globulin 3.7 Albumin/Globulin Ratio 1.1 Blood Type Antibody Screen 01/16/18 01/16/18 12:06 13:33 WBC RBC Hgb Hct MCV MCH MCHC RDW Plt Count MPV Neut % (Auto) Lymph % (Auto) [place] % (Auto) Eos % (Auto) Baso % (Auto) Neut # (Auto) Lymph # (Auto) [place] # (Auto) Eos # (Auto) Baso # (Auto) Neutrophils % (Manual) Lymphocytes % (Manual) Monocytes % (Manual) Eosinophils % (Manual) Platelet Estimate Polychromasia Hypochromasia (manual) Poikilocytosis (manual Anisocytosis (manual) Ovalocytes [place] Cells Sodium 160 H* Potassium 3.3 L Chloride 114 H Carbon Dioxide 29 Anion Gap 20 BUN 77 H Creatinine 3.0 H Est GFR ( Amer) 25 Est GFR (Non-Af Amer) 21 POC Glucose (mg/dL) 185 H Random Glucose 205 H Calcium 8.9 Magnesium Total Bilirubin AST ALT Alkaline Phosphatase Total Protein Albumin Globulin Albumin/Globulin Ratio Blood Type Antibody Screen
--- NOTE | 2018-01-16 15:28 | CARD ---
APPROVED REPORT Date of service: 01/14/2018 EXAM: Two-dimensional and M-mode echocardiogram with Doppler and color Doppler. Other Information Quality : GoodRhythm : INDICATION Atrial Fibrillation GPC R/O ENDOCARDITIS 2D DIMENSIONS IVSd1.0 (0.7-1.1cm)LVDd4.8 (3.9-5.9cm) LVOT Diameter1.9 (1.8-2.4cm)PWd1.0 (0.7-1.1cm) LVDs4.4 (2.5-4.0cm)FS (%) 7.1 % LVEF (%)15.9 (>50%) M-Mode DIMENSIONS Left Atrium (MM)4.37 (2.5-4.0cm)Aortic Root3.40 (2.2-3.7cm) Aortic Cusp Exc.1.39 (1.5-2.0cm) Mitral Valve MV E Dgxfwlxf987.0cm/sMV A Bmrqshym34.5cm/sMV [id number] E/A ratio2.0MVA (PHT)3.97cm2 TDI E/Lateral E'0.0E/Medial E'0.0 Pulmonary Valve PV Peak Ekwncgrb03.7cm/sPV Peak Grad.2mmHg Tricuspid Valve TR Peak Cmsxsdrh781vb/sTR Peak [id number] LEFT VENTRICLE The left ventricle is normal size. There is normal left ventricular wall thickness. The Ejection Fraction is 15-20%. severe lv global hypokinesia. indeterminate diastolic funciton. RIGHT VENTRICLE The right ventricle is normal size. rv Systolic function is moderately reduced. ATRIA The left atrium is mildly dilated. The right atrium size is normal. The interatrial septum is intact with no evidence for an atrial septal defect. AORTIC VALVE The aortic valve is moderately calcified. The aortic valve is trileaflet. There is trace aortic regurgitation. MITRAL VALVE The mitral valve is mildly thickened. Mitral regurgitation is trace. TRICUSPID VALVE The tricuspid valve is normal in structure. There is mild tricuspid regurgitation. Right ventricular systolic pressure is estimated at 26 mmHg. There is no pulmonary hypertension. PULMONIC VALVE probably normal [place] The aortic root is normal size. The aortic root displays moderate sclerocalcific changes of the aortic root. The IVC is normal in size and collapses >50% with inspiration. PERICARDIAL EFFUSION There is no pericardial effusion. <Conclusion> The left ventricle is normal size. The Ejection Fraction is 15-20%. indeterminate diastolic funciton. severe lv global hypokinesia. rv Systolic function is moderately reduced. The left atrium is mildly dilated. There is mild tricuspid regurgitation. Right ventricular systolic pressure is estimated at 26 mmHg. There is no pulmonary hypertension. The aortic root is normal size. The aortic root displays moderate sclerocalcific changes of the aortic root. The IVC is normal in size and collapses >50% with inspiration.
[2018-01-16 18:26] LABS: ALBUMIN 3.8 g/dL (3.5-5.0); CALCIUM 8.7 mg/dl (8.6-10.4)
--- NOTE | 2018-01-16 19:55 | CP.PCM.PN ---
Subjective - Date & Time of Evaluation Date of Evaluation: 01/16/18 Time of Evaluation: 11:45 - Subjective Subjective: clinically same Objective - Vital Signs/Intake and Output Vital Signs (last 24 hours): Temp Pulse Resp BP Pulse Ox 98.3 F 88 12 103/43 L 98 01/16/18 16:00 01/16/18 19:00 01/16/18 19:00 01/16/18 18:58 01/16/18 19:00 Intake and Output: 01/16/18 01/17/18 18:59 06:59 Intake Total 1200 200 Output Total 1175 100 Balance 25 100 - Medications Medications: Current Medications Dextrose (Dextrose 50% Inj) 0 ml IV STAT PRN; Protocol PRN Reason: Hypoglycemia Protocol Dextrose (Glutose 15) 0 gm PO ONCE PRN; Protocol PRN Reason: Hypoglycemia Protocol Glucagon (Glucagen Diagnostic Kit) 0 mg IM STAT PRN; Protocol PRN Reason: Hypoglycemia Protocol Heparin Sodium (Porcine) (Heparin) 5,000 units SC Q12H [facility] Last Admin: 01/16/18 12:58 Dose: 5,000 units Sodium Chloride (Sodium Chloride 0.45%) 1,000 mls @ 50 mls/hr IV .Q20H [facility] Last Admin: 01/15/18 21:19 Dose: 50 mls/hr Sodium Bicarbonate 150 meq/ (Dextrose) 1,150 mls @ 50 mls/hr IV .Q23H [facility] Last Admin: 01/16/18 02:29 Dose: 50 mls/hr Dextrose (Dextrose 5% In Water 1000 Ml) 1,000 mls @ 0 mls/hr IV .Q0M PRN; Protocol; Per Protocol PRN Reason: Hypoglycemia Protocol Daptomycin 400 mg/ Sodium (Chloride) 100 mls @ 100 mls/hr IV Q48H [facility] PRN Reason: Protocol Stop: 01/19/18 23:01 Last Admin: 01/14/18 23:46 Dose: 100 mls/hr Potassium Chloride (Potassium Chloride 20 Meq/100 Ml) 20 meq in 100 mls @ 50 mls/hr IVPB Q3H [facility] Stop: 01/16/18 22:59 Last Admin: 01/16/18 18:41 Dose: 50 mls/hr Insulin Aspart (Novolog) 0 unit SC Q6 [facility] PRN Reason: Protocol Last Admin: 09/02/18 18:41 Dose: 2 u Insulin Detemir (Levemir) 10 unit SC [facility] Last Admin: 01/15/18 22:56 Dose: Not Given Pantoprazole Sodium (Protonix Inj) 40 mg IVP Q12H [facility] Last Admin: 01/16/18 15:31 Dose: 40 mg Tamsulosin HCl (Flomax) 0.4 mg PO DAILY [facility] Last Admin: 01/16/18 09:37 Dose: Not Given - Labs Labs: 01/16/18 06:32 01/16/18 18:06 PT 14.0 SECONDS (9.7-12.2) H 01/13/18 17:42 INR 1.3 01/13/18 17:42 APTT 30 SECONDS (21-34) 01/13/18 17:42 - Constitutional Appears: Well - Head Exam Head Exam: ATRAUMATIC, NORMAL INSPECTION, NORMOCEPHALIC - Eye Exam Eye Exam: EOMI, Normal appearance, PERRL Pupil Exam: NORMAL ACCOMODATION, PERRL - ENT Exam ENT Exam: Mucous Membranes Moist, Normal Exam - Neck Exam Neck Exam: Full ROM, Normal Inspection. absent: Lymphadenopathy - Respiratory Exam Respiratory Exam: Decreased Breath Sounds - Cardiovascular Exam Cardiovascular Exam: REGULAR RHYTHM, +S1, +S2 - GI/Abdominal Exam GI & Abdominal Exam: Soft, Diminished Bowel Sounds - Rectal Exam Rectal Exam: Deferred Assessment and Plan (1) JOY (acute kidney injury) Status: Acute (2) Change in mental status Status: Acute (3) Electrolyte imbalance Status: Acute (4) MRSA (methicillin resistant Staphylococcus aureus) septicemia Status: Acute (5) NSTEMI (non-ST elevated myocardial infarction) Status: Acute (6) Prophylactic measure Status: Acute (7) UTI (urinary tract infection) Status: Acute (8) CHF (congestive heart failure) Status: Chronic (9) CKD (chronic kidney disease) Status: Chronic (10) Diabetes mellitus Status: Chronic (11) Afib Status: Acute (12) Anemia Status: Acute (13) Bilateral hydronephrosis Status: Acute (14) CKD (chronic kidney disease) stage 4, GFR 15-29 ml/min Status: Acute (15) Metabolic acidosis Status: Acute (16) Dementia Status: Chronic - Assessment and Plan (Free Text) Plan: pt seen and examined at bedside overnight events noted non-verbal hypernatremia azotemia O2 via NC IV fluids ID followup daptomycin accuchecks tight glycemic control prednisone tacrolimus blood pressure control dvt/gi px fup with labs
[2018-01-16] MEDS: Insulin Detemir 100 units/ml Vial (Levemir) SC SCH (21:58)
[2018-01-16] MEDS: Sodium Chloride 0.45% 1,000 ML IV SCH (22:01)
[2018-01-17] MEDS: (Novolog) Insulin Aspart, Recombinant 100 u/ml 10 ml vial SC SCH ×4 (05:54→18:03)
[2018-01-17 06:53] LABS: BASO # 0.1 K/uL (0.0-0.2); EOS # 0.1 K/uL (0.0-0.7); EOS % 0.5 % (0.0-4.0); HEMOGLOBIN 7.7 g/dL (12.0-18.0); LYMPH # 0.8 K/uL (1.0-4.3); LYMPH % 6.9 % (20.0-40.0); MEAN CORPUSCULAR HEMOGLOBIN 26.5 pg (27.0-31.0); MEAN CORPUSCULAR HGB CONC 31.2 g/dL (33.0-37.0); MONO # 0.6 K/uL (0.0-0.8); MONO % 5.5 % (0.0-10.0); NEUT # 9.7 K/uL (1.8-7.0); NEUT % 86.1 % (50.0-75.0); PLATELET COUNT 337 K/uL (130-400); RED CELL DISTRIBUTION WIDTH 16.5 % (11.5-14.5); WHITE BLOOD COUNT 11.3 K/uL (4.8-10.8)
[2018-01-17 07:02] LABS: ALBUMIN 3.8 g/dL (3.5-5.0)
--- NOTE | 2018-01-17 07:03 | CP.PCM.CON ---
History of Present Illness - History of Present Illness History of Present Illness: Patient seen and evaluated Non verbal Not in distress Physical Examination - Constitutional Appears: Non-toxic, No Acute Distress - Head Exam Head Exam: ATRAUMATIC, NORMAL INSPECTION - Eye Exam Eye Exam: EOMI, Normal appearance, PERRL Pupil Exam: NORMAL ACCOMODATION - ENT Exam ENT Exam: Mucous Membranes Moist - Neck Exam Neck Exam: Full ROM - Respiratory Exam Respiratory Exam: NORMAL BREATHING PATTERN - Cardiovascular Exam Cardiovascular Exam: +S1, +S2 - GI/Abdominal Exam GI & Abdominal Exam: Soft, Normal Bowel Sounds - Extremities Exam Extremities Exam: Full ROM - Back Exam Back Exam: Full ROM, NORMAL INSPECTION - Neurological Exam Neurological Exam: Alert, Awake, Oriented x3 - Psychiatric Exam Psychiatric exam: Normal Affect, Normal Mood - Skin Skin Exam: Dry, Intact, Normal Color, Warm Past Patient History - Infectious Disease Hx of Infectious Diseases: None - Tetanus Immunizations Tetanus Immunization: Unknown - Past Medical History & Family History Past Medical History?: Yes - Past Social History Smoking Status: Unknown If Ever Smoked - CARDIAC Hx Cardiac Disorders: Yes Hx Hypertension: Yes - PULMONARY Hx Respiratory Disorders: Yes - NEUROLOGICAL Hx Dementia: Yes - HEENT Hx HEENT Problems: No - RENAL Hx Chronic Kidney Disease: No - ENDOCRINE/METABOLIC Hx Diabetes Mellitus Type 2: Yes - HEMATOLOGICAL/ONCOLOGICAL Hx Anemia: Yes - INTEGUMENTARY Hx Dermatological Problems: No - MUSCULOSKELETAL/RHEUMATOLOGICAL Hx Falls: No - GASTROINTESTINAL Hx Gastrointestinal Disorders: No Hx Colostomy: Yes - GENITOURINARY/GYNECOLOGICAL Hx Genitourinary Disorders: No - PSYCHIATRIC Hx Substance Use: No - SURGICAL HISTORY Hx Surgeries: No Other/Comment: unable to obtain informations - ANESTHESIA Hx Anesthesia: No Hx Anesthesia Reactions: No Meds Allergies/Adverse Reactions: Allergies Allergy/AdvReac Type Severity Reaction Status Date / Time No Known Allergies Allergy Verified 01/13/18 17:08 - Medications Medications: Current Medications Dextrose (Dextrose 50% Inj) 0 ml IV STAT PRN; Protocol PRN Reason: Hypoglycemia Protocol Dextrose (Glutose 15) 0 gm PO ONCE PRN; Protocol PRN Reason: Hypoglycemia Protocol Glucagon (Glucagen Diagnostic Kit) 0 mg IM STAT PRN; Protocol PRN Reason: Hypoglycemia Protocol Heparin Sodium (Porcine) (Heparin) 5,000 units SC Q12H NEL Last Admin: 01/17/18 02:19 Dose: 5,000 units Sodium Chloride (Sodium Chloride 0.45%) 1,000 mls @ 50 mls/hr IV .Q20H [facility] Last Admin: 01/16/18 22:01 Dose: 50 mls/hr Sodium Bicarbonate 150 meq/ (Dextrose) 1,150 mls @ 50 mls/hr IV .Q23H [facility] Last Admin: 01/16/18 23:48 Dose: 50 mls/hr Dextrose (Dextrose 5% In Water 1000 Ml) 1,000 mls @ 0 mls/hr IV .Q0M PRN; Protocol; Per Protocol PRN Reason: Hypoglycemia Protocol Daptomycin 400 mg/ Sodium (Chloride) 100 mls @ 100 mls/hr IV Q48H [facility] PRN Reason: Protocol Stop: 01/19/18 23:01 Last Admin: 01/16/18 23:49 Dose: 100 mls/hr Insulin Aspart (Novolog) 0 unit SC Q6 [facility] PRN Reason: Protocol Last Admin: 01/17/18 05:54 Dose: Not Given Insulin Detemir (Levemir) 10 unit SC HS [facility] Last Admin: 01/16/18 21:58 Dose: 10 u Pantoprazole Sodium (Protonix Inj) 40 mg IVP Q12H [facility] Last Admin: 01/17/18 02:18 Dose: 40 mg Tamsulosin HCl (Flomax) 0.4 mg PO DAILY [facility] Last Admin: 01/16/18 09:37 Dose: Not Given Results - Vital Signs Recent Vital Signs: Last Vital Signs Temp 98.5 F 01/17/18 04:00 Pulse 63 01/17/18 07:00 Resp 14 01/17/18 07:00 BP 142/56 L 01/17/18 06:39 Pulse Ox 98 01/17/18 07:00 - Labs Result Diagrams: 01/20/18 14:15 01/20/18 14:15 Labs: Laboratory Results - last 24 hr 01/16/18 01/16/18 01/16/18 06:32 12:06 13:33 WBC 11.2 H RBC 3.02 L Hgb 8.1 L Hct 25.1 L MCV 83.0 MCH 26.9 L MCHC 32.4 L RDW 16.4 H Plt Count 365 MPV 8.0 Neut % (Auto) 86.6 H Lymph % (Auto) 7.1 L Cedar % (Auto) 5.0 Eos % (Auto) 1.0 Baso % (Auto) 0.3 Neut # (Auto) 9.7 H Lymph # (Auto) 0.8 L Cedar # (Auto) 0.6 Eos # (Auto) 0.1 Baso # (Auto) 0.0 Neutrophils % (Manual) 83 H Lymphocytes % (Manual) 9 L Monocytes % (Manual) 7 Eosinophils % (Manual) 1 Platelet Estimate Normal Polychromasia Slight Hypochromasia (manual) Slight Poikilocytosis (manual Slight Anisocytosis (manual) Slight Ovalocytes Slight Palmer Cells Slight Sodium 160 H* Potassium 3.3 L Chloride 114 H Carbon Dioxide 29 Anion Gap 20 BUN 77 H Creatinine 3.0 H Est GFR ( Amer) 25 Est GFR (Non-Af Amer) 21 POC Glucose (mg/dL) 185 H Random Glucose 205 H Calcium 8.9 Phosphorus Magnesium Total Bilirubin AST ALT Alkaline Phosphatase Total Protein Albumin Globulin Albumin/Globulin Ratio 01/16/18 01/16/18 01/16/18 17:30 18:06 21:01 WBC RBC Hgb Hct MCV MCH MCHC RDW Plt Count MPV Neut % (Auto) Lymph % (Auto) Cedar % (Auto) Eos % (Auto) Baso % (Auto) Neut # (Auto) Lymph # (Auto) Cedar # (Auto) Eos # (Auto) Baso # (Auto) Neutrophils % (Manual) Lymphocytes % (Manual) Monocytes % (Manual) Eosinophils % (Manual) Platelet Estimate Polychromasia Hypochromasia (manual) Poikilocytosis (manual Anisocytosis (manual) Ovalocytes Palmer Cells Sodium Potassium 3.8 Chloride Carbon Dioxide Anion Gap BUN Creatinine Est GFR ( Amer) Est GFR (Non-Af Amer) POC Glucose (mg/dL) 213 H 182 H Random Glucose Calcium 8.7 Phosphorus 4.0 Magnesium 1.9 Total Bilirubin AST ALT Alkaline Phosphatase Total Protein Albumin 3.8 Globulin Albumin/Globulin Ratio 01/16/18 01/17/18 01/17/18 23:59 05:21 06:33 WBC RBC Hgb Hct MCV MCH MCHC RDW Plt Count MPV Neut % (Auto) Lymph % (Auto) Cedar % (Auto) Eos % (Auto) Baso % (Auto) Neut # (Auto) Lymph # (Auto) Cedar # (Auto) Eos # (Auto) Baso # (Auto) Neutrophils % (Manual) Lymphocytes % (Manual) Monocytes % (Manual) Eosinophils % (Manual) Platelet Estimate Polychromasia Hypochromasia (manual) Poikilocytosis (manual Anisocytosis (manual) Ovalocytes Teresa Cells Sodium 163 H* Potassium 3.3 L Chloride 115 H Carbon Dioxide 34 H Anion Gap 17 BUN 67 H Creatinine 2.6 H Est GFR ( Amer) 30 Est GFR (Non-Af Amer) 24 POC Glucose (mg/dL) 185 H 154 H Random Glucose 153 H Calcium 9.0 Phosphorus Magnesium 2.0 Total Bilirubin 0.8 AST 38 ALT 25 Alkaline Phosphatase 128 H Total Protein 7.7 Albumin 3.8 Globulin 3.9 Albumin/Globulin Ratio 1.0 01/17/18 06:36 WBC 11.3 H RBC 2.90 L Hgb 7.7 L Hct 24.7 L MCV 85.0 D MCH 26.5 L MCHC 31.2 L RDW 16.5 H Plt Count 337 MPV 8.0 Neut % (Auto) 86.1 H Lymph % (Auto) 6.9 L [place] % (Auto) 5.5 Eos % (Auto) 0.5 Baso % (Auto) 1.0 Neut # (Auto) 9.7 H Lymph # (Auto) 0.8 L [place] # (Auto) 0.6 Eos # (Auto) 0.1 Baso # (Auto) 0.1 Neutrophils % (Manual) Lymphocytes % (Manual) Monocytes % (Manual) Eosinophils % (Manual) Platelet Estimate Polychromasia Hypochromasia (manual) Poikilocytosis (manual Anisocytosis (manual) Ovalocytes Teresa Cells Sodium Potassium Chloride Carbon Dioxide Anion Gap BUN Creatinine Est GFR ( Amer) Est GFR (Non-Af Amer) POC Glucose (mg/dL) Random Glucose Calcium Phosphorus Magnesium Total Bilirubin AST ALT Alkaline Phosphatase Total Protein Albumin Globulin Albumin/Globulin Ratio Assessment & Plan - Assessment and Plan (Free Text) Assessment: Assessment and Plan (1) CHF (congestive heart failure) Assessment & Plan: EF approx 15-20% with noted severe LV global hypokinesia. Diastolic dysfunction cannot be determined. Moderately reduced systolic function. Refer to complete report. Will review whether patient has had a LifeVest before. Status: Chronic (2) Diabetes mellitus Assessment & Plan: On ISS Accuchecks Continued management Status: Chronic (3) Electrolyte imbalance Assessment & Plan: Replete as needed Status: Acute (4) Dementia Assessment & Plan: May need some form of maintenance therapy. Continued management per primary Status: Chronic (5) Prophylactic measure Assessment & Plan: PPI 40 mg IV daily SCDs Heparin 5,000 SC Q12 Status: Acute
[2018-01-17 09:47] LABS: ANISOCYTOSIS SLIGHT; BANDS 3 % (0-2); EOSINOPHIL 1 % (0-4); HYPOCHROMIC SLIGHT; LYMPHOCYTE 7 % (20-40); MONOCYTE 5 % (0-10); NEUTROPHIL 84 % (50-75); PLATELET ESTIMATE NORMAL (NORMAL); TOTAL CELLS COUNTED 100
--- NOTE | 2018-01-17 12:03 | CP.CCUPN ---
CCU Subjective - Physician Review Events Since Last Encounter (Free Text): 01/17/18 12:03 Patient with a history of dementia, diabetes, BPH, chronic kidney disease Status post colostomy. Patient admitted with GI bleed. Also admitted with the atrial flutter fibrillation. Also admitted with worsening renal failure Patient did recently transfusion 2 days ago. Currently patient has a regular heart rate, rate controlled well. He was having polyuria, after the DDAVP the urine output is slightly better. Patient sodium level is still on the high side Patient is alert awake today. Comfortable. Not in any distress. But he is confused Labs reviewed Assessment: 72 male with worsening hypernatremia, renal insufficiency. GI bleed Colostomy. Dementia. Hypertension We'll continue to monitor. One more dose of DDAVP Discontinue bicarbonate Start dextrose solution. Aspiration precaution. Will follow the patient Critical Care Time Spent (in minutes): 45 CCU Objective - Vital Signs / Intake & Output Vital Signs (Last 4 hours): Vital Signs Pulse Resp BP Pulse Ox 01/17/18 11:58 57 L 25 H 136/50 L 100 01/17/18 11:00 60 12 98 01/17/18 10:58 58 L 19 146/57 L 99 01/17/18 10:00 60 19 99 01/17/18 09:58 63 21 143/54 L 100 01/17/18 09:00 63 10 L 99 01/17/18 08:58 58 L 17 137/87 100 Intake and Output (Last 8hrs): Intake & Output 01/16/18 01/17/18 01/17/18 22:59 06:59 14:59 Intake Total 900 1000 200 Output Total 640 725 175 Balance 260 275 25 Weight 164 lb 3 oz Intake: Intake, IV Amount 900 1000 200 Left Forearm 100 150 Left Forearm Y-site 400 400 100 Right Hand 50 Right Wrist 400 400 100 Output: Urine 640 675 175 Urethral (Mendes) 640 675 175 Stool 50 - Physical Exam Head: Positive for: Atraumatic, Normocephalic Pupils: Positive for: PERRL. Negative for: Sluggish, Non-Reactive Extroacular Muscles: Negative for: EOMI (not following commands for EOMI testing ) Conjunctiva: Positive for: Normal. Negative for: Injected, Icteric Mouth: Positive for: Moist Mucous Membranes. Negative for: Drooling Nose (External): Positive for: Atraumatic. Negative for: Abrasion, Contusion, Laceration Nose (Internal): Positive for: No Active Bleeding. Negative for: Epistaxis Neck: Positive for: Normal Range of Motion (passive ROM intact, not following commands to assess active ROM), Trachea Midline. Negative for: JVD Respiratory/Chest: Positive for: Clear to Auscultation, Other (limited exam as not following commands to take deep breaths, but no appreciable rales/wheezes/ ronchi). Negative for: Respiratory Distress, Accessory Muscle Use, Wheezes, Rales, Rhonchi Cardiovascular: Positive for: Normal S1, S2, Peripheal Pulses Present (+2 dorsalis pedis and radials bilaterally), Tachycardic. Negative for: Irregular Rhythm, Bradycardic Abdomen: Positive for: Normal Bowel Sounds, Other (ostomy bag at RLQ, ostomy appears pink/patent, no surrounding erythema). Negative for: Distention Upper Extremity: Positive for: NORMAL PULSES, Other (wearing mitts to prevent pulling IVs). Negative for: Cyanosis, Edema, Swelling, Erythema, Deformity Lower Extremity: Positive for: Normal Inspection, NORMAL PULSES. Negative for: Edema, CALF TENDERNESS, Cyanosis, Swelling, Erythema, Deformity Neurological: Positive for: Motor Func Grossly Intact (not following commands, but no obvious deficits apparent in spontaneous movements of extremities, no facial droop appreciated). Negative for: GCS=15 (GCS 9 ([id number])) Skin: Positive for: Warm, Dry Psychiatric: Positive for: Other (Unable to determine since patient is demented and altered, speaking unintelligibly or with inappropriate words) - Medications Active Medications: Active Medications Generic Name Dose Route Start Last Admin Trade Name Freq PRN Reason Stop Dose Admin Dextrose 0 ml 01/14/18 15:10 Dextrose 50% Inj IV STAT PRN Hypoglycemia Protocol Protocol Dextrose 0 gm 01/14/18 15:10 Glutose 15 PO ONCE PRN Hypoglycemia Protocol Protocol Glucagon 0 mg 01/14/18 15:10 Glucagen Diagnostic Kit IM STAT PRN Hypoglycemia Protocol Protocol Heparin Sodium (Porcine) 5,000 units 01/14/18 01:45 01/17/18 02:19 Heparin SC 5,000 units Q12H NEL Administration Dextrose 1,000 mls @ 0 mls/hr 01/14/18 15:10 Dextrose 5% In Water 1000 Ml IV .Q0M PRN Hypoglycemia Protocol Protocol Per Protocol Daptomycin 400 mg/ Sodium 100 mls @ 100 mls/hr 01/14/18 23:00 01/16/18 23:49 Chloride IV 01/19/18 23:01 100 mls/hr Q48H NEL Administration Protocol Desmopressin Acetate 26 mcg/ 56.5 mls @ 100 mls/hr 01/17/18 11:58 Sodium Chloride IV 01/17/18 12:27 ONCE ONE Dextrose 500 mls @ 50 mls/hr 01/17/18 12:00 Dextrose 5% In Water IV 01/19/18 12:01 .Q10H NEL Insulin Aspart 0 unit 01/14/18 06:00 01/17/18 05:54 Novolog SC Not Given Q6 NEL Protocol Insulin Detemir 10 unit 01/14/18 22:00 01/16/18 21:58 Levemir SC 10 u HS NEL Administration Pantoprazole Sodium 40 mg 01/18/18 10:00 Protonix Inj IVP DAILY NEL Tamsulosin HCl 0.4 mg 01/14/18 10:00 01/17/18 10:23 Flomax PO 0.4 mg DAILY NEL Administration - Patient Studies Lab Studies: Microbiology Studies 01/13/18 17:40 S.aureus & Coag-Neg Staph PNA FISH - Final Blood Blood Culture - Final Enterococcus Faecalis Methicillin Resistant S Aureus Gram Stain - Final 01/13/18 17:40 Blood Culture - Final Blood Methicillin Resistant S Aureus Gram Stain - Final Lab Studies 01/17/18 01/17/18 01/17/18 Range/Units 11:49 06:36 06:33 WBC 11.3 H (4.8-10.8) K/uL RBC 2.90 L (4.40-5.90) Mil/uL Hgb 7.7 L (12.0-18.0) g/dL Hct 24.7 L (35.0-51.0) % MCV 85.0 D (80.0-94.0) fL MCH 26.5 L (27.0-31.0) pg MCHC 31.2 L (33.0-37.0) g/dL RDW 16.5 H (11.5-14.5) % Plt Count 337 (130-400) K/uL MPV 8.0 (7.2-11.7) fL Neut % (Auto) 86.1 H (50.0-75.0) % Lymph % (Auto) 6.9 L (20.0-40.0) % [place]cho % (Auto) 5.5 (0.0-10.0) % Eos % (Auto) 0.5 (0.0-4.0) % Baso % (Auto) 1.0 (0.0-2.0) % Neut # (Auto) 9.7 H (1.8-7.0) K/uL Lymph # (Auto) 0.8 L (1.0-4.3) K/uL [place] # (Auto) 0.6 (0.0-0.8) K/uL Eos # (Auto) 0.1 (0.0-0.7) K/uL Baso # (Auto) 0.1 (0.0-0.2) K/uL Neutrophils % (Manual) 84 H (50-75) % Band Neutrophils % 3 H (0-2) % Lymphocytes % (Manual) 7 L (20-40) % Monocytes % (Manual) 5 (0-10) % Eosinophils % (Manual) 1 (0-4) % Platelet Estimate Normal (NORMAL) Hypochromasia (manual) Slight Anisocytosis (manual) Slight Sodium 163 H* (132-148) mmol/L Potassium 3.3 L (3.6-5.2) mmol/L Chloride 115 H (98-107) mmol/L Carbon Dioxide 34 H (22-30) mmol/L Anion Gap 17 (10-20) BUN 67 H (9-20) mg/dL Creatinine 2.6 H (0.8-1.5) mg/dL Est GFR ( Amer) 30 Est GFR (Non-Af Amer) 24 POC Glucose (mg/dL) 140 H (65-110) mg/dL Random Glucose 153 H (75-110) mg/dL Calcium 9.0 (8.6-10.4) mg/dl Phosphorus (2.5-4.5) mg/dL Magnesium 2.0 (1.6-2.3) mg/dL Total Bilirubin 0.8 (0.2-1.3) mg/dL AST 38 (17-59) U/L ALT 25 (21-72) U/L Alkaline Phosphatase 128 H (38-126) U/L Total Protein 7.7 (6.3-8.3) g/dL Albumin 3.8 (3.5-5.0) g/dL Globulin 3.9 (2.2-3.9) gm/dL Albumin/Globulin Ratio 1.0 (1.0-2.1) Opiates (GC/MS) Methadone (GC/MS) Propoxyphenes Barbiturates Phencyclidine (PCP) Amphetamines Benzodiazepines Cocaine & Metabolite Marijuana Drugs of Abuse Comment 01/17/18 01/16/18 01/16/18 Range/Units 05:21 23:59 21:01 WBC (4.8-10.8) K/uL RBC (4.40-5.90) Mil/uL Hgb (12.0-18.0) g/dL Hct (35.0-51.0) % MCV (80.0-94.0) fL MCH (27.0-31.0) pg MCHC (33.0-37.0) g/dL RDW (11.5-14.5) % Plt Count (130-400) K/uL MPV (7.2-11.7) fL Neut % (Auto) (50.0-75.0) % Lymph % (Auto) (20.0-40.0) % [place] % (Auto) (0.0-10.0) % Eos % (Auto) (0.0-4.0) % Baso % (Auto) (0.0-2.0) % Neut # (Auto) (1.8-7.0) K/uL Lymph # (Auto) (1.0-4.3) K/uL [place] # (Auto) (0.0-0.8) K/uL Eos # (Auto) (0.0-0.7) K/uL Baso # (Auto) (0.0-0.2) K/uL Neutrophils % (Manual) (50-75) % Band Neutrophils % (0-2) % Lymphocytes % (Manual) (20-40) % Monocytes % (Manual) (0-10) % Eosinophils % (Manual) (0-4) % Platelet Estimate (NORMAL) Hypochromasia (manual) Anisocytosis (manual) Sodium (132-148) mmol/L Potassium (3.6-5.2) mmol/L Chloride (98-107) mmol/L Carbon Dioxide (22-30) mmol/L Anion Gap (10-20) BUN (9-20) mg/dL Creatinine (0.8-1.5) mg/dL Est GFR ( Amer) Est GFR (Non-Af Amer) POC Glucose (mg/dL) 154 H 185 H 182 H (65-110) mg/dL Random Glucose (75-110) mg/dL Calcium (8.6-10.4) mg/dl Phosphorus (2.5-4.5) mg/dL Magnesium (1.6-2.3) mg/dL Total Bilirubin (0.2-1.3) mg/dL AST (17-59) U/L ALT (21-72) U/L Alkaline Phosphatase (38-126) U/L Total Protein (6.3-8.3) g/dL Albumin (3.5-5.0) g/dL Globulin (2.2-3.9) gm/dL Albumin/Globulin Ratio (1.0-2.1) Opiates (GC/MS) Methadone (GC/MS) Propoxyphenes Barbiturates Phencyclidine (PCP) Amphetamines Benzodiazepines Cocaine & Metabolite Marijuana Drugs of Abuse Comment 01/16/18 01/16/18 01/16/18 Range/Units 18:06 17:30 13:33 WBC (4.8-10.8) K/uL RBC (4.40-5.90) Mil/uL Hgb (12.0-18.0) g/dL Hct (35.0-51.0) % MCV (80.0-94.0) fL MCH (27.0-31.0) pg MCHC (33.0-37.0) g/dL RDW (11.5-14.5) % Plt Count (130-400) K/uL MPV (7.2-11.7) fL Neut % (Auto) (50.0-75.0) % Lymph % (Auto) (20.0-40.0) % [place] % (Auto) (0.0-10.0) % Eos % (Auto) (0.0-4.0) % Baso % (Auto) (0.0-2.0) % Neut # (Auto) (1.8-7.0) K/uL Lymph # (Auto) (1.0-4.3) K/uL Concho # (Auto) (0.0-0.8) K/uL Eos # (Auto) (0.0-0.7) K/uL Baso # (Auto) (0.0-0.2) K/uL Neutrophils % (Manual) (50-75) % Band Neutrophils % (0-2) % Lymphocytes % (Manual) (20-40) % Monocytes % (Manual) (0-10) % Eosinophils % (Manual) (0-4) % Platelet Estimate (NORMAL) Hypochromasia (manual) Anisocytosis (manual) Sodium 160 H* (132-148) mmol/L Potassium 3.8 3.3 L (3.6-5.2) mmol/L Chloride 114 H (98-107) mmol/L Carbon Dioxide 29 (22-30) mmol/L Anion Gap 20 (10-20) BUN 77 H (9-20) mg/dL Creatinine 3.0 H (0.8-1.5) mg/dL Est GFR ( Amer) 25 Est GFR (Non-Af Amer) 21 POC Glucose (mg/dL) 213 H (65-110) mg/dL Random Glucose 205 H (75-110) mg/dL Calcium 8.7 8.9 (8.6-10.4) mg/dl Phosphorus 4.0 (2.5-4.5) mg/dL Magnesium 1.9 (1.6-2.3) mg/dL Total Bilirubin (0.2-1.3) mg/dL AST (17-59) U/L ALT (21-72) U/L Alkaline Phosphatase (38-126) U/L Total Protein (6.3-8.3) g/dL Albumin 3.8 (3.5-5.0) g/dL Globulin (2.2-3.9) gm/dL Albumin/Globulin Ratio (1.0-2.1) Opiates (GC/MS) Methadone (GC/MS) Propoxyphenes Barbiturates Phencyclidine (PCP) Amphetamines Benzodiazepines Cocaine & Metabolite Marijuana Drugs of Abuse Comment 01/16/18 01/13/18 Range/Units 12:06 22:34 WBC (4.8-10.8) K/uL RBC (4.40-5.90) Mil/uL Hgb (12.0-18.0) g/dL Hct (35.0-51.0) % MCV (80.0-94.0) fL MCH (27.0-31.0) pg MCHC (33.0-37.0) g/dL RDW (11.5-14.5) % Plt Count (130-400) K/uL MPV (7.2-11.7) fL Neut % (Auto) (50.0-75.0) % Lymph % (Auto) (20.0-40.0) % [place] % (Auto) (0.0-10.0) % Eos % (Auto) (0.0-4.0) % Baso % (Auto) (0.0-2.0) % Neut # (Auto) (1.8-7.0) K/uL Lymph # (Auto) (1.0-4.3) K/uL [place]cho # (Auto) (0.0-0.8) K/uL Eos # (Auto) (0.0-0.7) K/uL Baso # (Auto) (0.0-0.2) K/uL Neutrophils % (Manual) (50-75) % Band Neutrophils % (0-2) % Lymphocytes % (Manual) (20-40) % Monocytes % (Manual) (0-10) % Eosinophils % (Manual) (0-4) % Platelet Estimate (NORMAL) Hypochromasia (manual) Anisocytosis (manual) Sodium (132-148) mmol/L Potassium (3.6-5.2) mmol/L Chloride (98-107) mmol/L Carbon Dioxide (22-30) mmol/L Anion Gap (10-20) BUN (9-20) mg/dL Creatinine (0.8-1.5) mg/dL Est GFR ( Amer) Est GFR (Non-Af Amer) POC Glucose (mg/dL) 185 H (65-110) mg/dL Random Glucose (75-110) mg/dL Calcium (8.6-10.4) mg/dl Phosphorus (2.5-4.5) mg/dL Magnesium (1.6-2.3) mg/dL Total Bilirubin (0.2-1.3) mg/dL AST (17-59) U/L ALT (21-72) U/L Alkaline Phosphatase (38-126) U/L Total Protein (6.3-8.3) g/dL Albumin (3.5-5.0) g/dL Globulin (2.2-3.9) gm/dL Albumin/Globulin Ratio (1.0-2.1) Opiates (GC/MS) negative Methadone (GC/MS) negative Propoxyphenes negative Barbiturates negative Phencyclidine (PCP) negative Amphetamines negative Benzodiazepines negative Cocaine & Metabolite negative Marijuana negative Drugs of Abuse Comment See note Laboratory Results - last 24 hr 01/13/18 01/16/18 01/16/18 22:34 12:06 13:33 WBC RBC Hgb Hct MCV MCH MCHC RDW Plt Count MPV Neut % (Auto) Lymph % (Auto) [place] % (Auto) Eos % (Auto) Baso % (Auto) Neut # (Auto) Lymph # (Auto) [place] # (Auto) Eos # (Auto) Baso # (Auto) Neutrophils % (Manual) Band Neutrophils % Lymphocytes % (Manual) Monocytes % (Manual) Eosinophils % (Manual) Platelet Estimate Hypochromasia (manual) Anisocytosis (manual) Sodium 160 H* Potassium 3.3 L Chloride 114 H Carbon Dioxide 29 Anion Gap 20 BUN 77 H Creatinine 3.0 H Est GFR ( Amer) 25 Est GFR (Non-Af Amer) 21 POC Glucose (mg/dL) 185 H Random Glucose 205 H Calcium 8.9 Phosphorus Magnesium Total Bilirubin AST ALT Alkaline Phosphatase Total Protein Albumin Globulin Albumin/Globulin Ratio Opiates (GC/MS) negative Methadone (GC/MS) negative Propoxyphenes negative Barbiturates negative Phencyclidine (PCP) negative Amphetamines negative Benzodiazepines negative Cocaine & Metabolite negative Marijuana negative Drugs of Abuse Comment See note 01/16/18 01/16/18 01/16/18 17:30 18:06 21:01 WBC RBC Hgb Hct MCV MCH MCHC RDW Plt Count MPV Neut % (Auto) Lymph % (Auto) [place] % (Auto) Eos % (Auto) Baso % (Auto) Neut # (Auto) Lymph # (Auto) [place] # (Auto) Eos # (Auto) Baso # (Auto) Neutrophils % (Manual) Band Neutrophils % Lymphocytes % (Manual) Monocytes % (Manual) Eosinophils % (Manual) Platelet Estimate Hypochromasia (manual) Anisocytosis (manual) Sodium Potassium 3.8 Chloride Carbon Dioxide Anion Gap BUN Creatinine Est GFR ( Amer) Est GFR (Non-Af Amer) POC Glucose (mg/dL) 213 H 182 H Random Glucose Calcium 8.7 Phosphorus 4.0 Magnesium 1.9 Total Bilirubin AST ALT Alkaline Phosphatase Total Protein Albumin 3.8 Globulin Albumin/Globulin Ratio Opiates (GC/MS) Methadone (GC/MS) Propoxyphenes Barbiturates Phencyclidine (PCP) Amphetamines Benzodiazepines Cocaine & Metabolite Marijuana Drugs of Abuse Comment 01/16/18 01/17/18 01/17/18 23:59 05:21 06:33 WBC RBC Hgb Hct MCV MCH MCHC RDW Plt Count MPV Neut % (Auto) Lymph % (Auto) [place] % (Auto) Eos % (Auto) Baso % (Auto) Neut # (Auto) Lymph # (Auto) [place] # (Auto) Eos # (Auto) Baso # (Auto) Neutrophils % (Manual) Band Neutrophils % Lymphocytes % (Manual) Monocytes % (Manual) Eosinophils % (Manual) Platelet Estimate Hypochromasia (manual) Anisocytosis (manual) Sodium 163 H* Potassium 3.3 L Chloride 115 H Carbon Dioxide 34 H Anion Gap 17 BUN 67 H Creatinine 2.6 H Est GFR ( Amer) 30 Est GFR (Non-Af Amer) 24 POC Glucose (mg/dL) 185 H 154 H Random Glucose 153 H Calcium 9.0 Phosphorus Magnesium 2.0 Total Bilirubin 0.8 AST 38 ALT 25 Alkaline Phosphatase 128 H Total Protein 7.7 Albumin 3.8 Globulin 3.9 Albumin/Globulin Ratio 1.0 Opiates (GC/MS) Methadone (GC/MS) Propoxyphenes Barbiturates Phencyclidine (PCP) Amphetamines Benzodiazepines Cocaine & Metabolite Marijuana Drugs of Abuse Comment 01/17/18 01/17/18 06:36 11:49 WBC 11.3 H RBC 2.90 L Hgb 7.7 L Hct 24.7 L MCV 85.0 D MCH 26.5 L MCHC 31.2 L RDW 16.5 H Plt Count 337 MPV 8.0 Neut % (Auto) 86.1 H Lymph % (Auto) 6.9 L [place] % (Auto) 5.5 Eos % (Auto) 0.5 Baso % (Auto) 1.0 Neut # (Auto) 9.7 H Lymph # (Auto) 0.8 L [place] # (Auto) 0.6 Eos # (Auto) 0.1 Baso # (Auto) 0.1 Neutrophils % (Manual) 84 H Band Neutrophils % 3 H Lymphocytes % (Manual) 7 L Monocytes % (Manual) 5 Eosinophils % (Manual) 1 Platelet Estimate Normal Hypochromasia (manual) Slight Anisocytosis (manual) Slight Sodium Potassium Chloride Carbon Dioxide Anion Gap BUN Creatinine Est GFR ( Amer) Est GFR (Non-Af Amer) POC Glucose (mg/dL) 140 H Random Glucose Calcium Phosphorus Magnesium Total Bilirubin AST ALT Alkaline Phosphatase Total Protein Albumin Globulin Albumin/Globulin Ratio Opiates (GC/MS) Methadone (GC/MS) Propoxyphenes Barbiturates Phencyclidine (PCP) Amphetamines Benzodiazepines Cocaine & Metabolite Marijuana Drugs of Abuse Comment EKG/Cardiology Studies: Cardiology / EKG Studies 01/16/18 17:43 EKG [ELECTROCARDIOGRAM] Stat Comment: Mode Of Transportation: Reason For Exam: abrupt bradycardia, possible AV block Fingerstick Blood Sugar Results: 154 Critical Care Progress Note - Nutrition Nutrition: Nutrition Category Date Time Status NPO Diet [DIET] Diets 01/14/18 Breakfast Active
[2018-01-17] MEDS ORDERED: Digoxin 500 mcg/2ml (0.5 mg/2ml) Inj IVP SCH (18:00)
--- NOTE | 2018-01-17 19:18 | CP.PCM.PN ---
Subjective - Date & Time of Evaluation Date of Evaluation: 01/17/18 Time of Evaluation: 11:00 - Subjective Subjective: clinically same Objective - Vital Signs/Intake and Output Vital Signs (last 24 hours): Temp Pulse Resp BP Pulse Ox 98.7 F 70 13 151/59 H 95 01/17/18 16:00 01/17/18 19:00 01/17/18 19:00 01/17/18 18:58 01/17/18 19:00 Intake and Output: 01/17/18 01/18/18 18:59 06:59 Intake Total 900 50 Output Total 1285 90 Balance -385 -40 - Medications Medications: Current Medications Dextrose (Dextrose 50% Inj) 0 ml IV STAT PRN; Protocol PRN Reason: Hypoglycemia Protocol Dextrose (Glutose 15) 0 gm PO ONCE PRN; Protocol PRN Reason: Hypoglycemia Protocol Glucagon (Glucagen Diagnostic Kit) 0 mg IM STAT PRN; Protocol PRN Reason: Hypoglycemia Protocol Heparin Sodium (Porcine) (Heparin) 5,000 units SC Q12H [facility] Last Admin: 01/17/18 14:06 Dose: 5,000 units Dextrose (Dextrose 5% In Water 1000 Ml) 1,000 mls @ 0 mls/hr IV .Q0M PRN; Protocol; Per Protocol PRN Reason: Hypoglycemia Protocol Daptomycin 400 mg/ Sodium (Chloride) 100 mls @ 100 mls/hr IV Q48H [facility] PRN Reason: Protocol Stop: 01/19/18 23:01 Last Admin: 01/16/18 23:49 Dose: 100 mls/hr Dextrose (Dextrose 5% In Water) 500 mls @ 50 mls/hr IV .Q10H [facility] Stop: 01/19/18 12:31 Last Admin: 01/17/18 12:33 Dose: 50 mls/hr Insulin Aspart (Novolog) 0 unit SC Q6 [facility] PRN Reason: Protocol Last Admin: 01/17/18 18:03 Dose: 2 u Insulin Detemir (Levemir) 10 unit SC HS [facility] Last Admin: 01/16/18 21:58 Dose: 10 u Pantoprazole Sodium (Protonix Inj) 40 mg IVP DAILY [facility] Tamsulosin HCl (Flomax) 0.4 mg PO DAILY [facility] Last Admin: 01/17/18 12:05 Dose: Not Given - Labs Labs: 01/17/18 06:36 01/17/18 06:33 PT 14.0 SECONDS (9.7-12.2) H 01/13/18 17:42 INR 1.3 01/13/18 17:42 APTT 30 SECONDS (21-34) 01/13/18 17:42 - Constitutional Appears: Well - Head Exam Head Exam: ATRAUMATIC, NORMAL INSPECTION, NORMOCEPHALIC - Eye Exam Eye Exam: EOMI, Normal appearance, PERRL Pupil Exam: NORMAL ACCOMODATION, PERRL - ENT Exam ENT Exam: Mucous Membranes Moist, Normal Exam - Neck Exam Neck Exam: Full ROM, Normal Inspection. absent: Lymphadenopathy - Respiratory Exam Respiratory Exam: Decreased Breath Sounds - Cardiovascular Exam Cardiovascular Exam: REGULAR RHYTHM, +S1, +S2 - GI/Abdominal Exam GI & Abdominal Exam: Soft, Diminished Bowel Sounds - Rectal Exam Rectal Exam: Deferred Assessment and Plan (1) JOY (acute kidney injury) Status: Acute (2) Change in mental status Status: Acute (3) Electrolyte imbalance Status: Acute (4) MRSA (methicillin resistant Staphylococcus aureus) septicemia Status: Acute (5) NSTEMI (non-ST elevated myocardial infarction) Status: Acute (6) Prophylactic measure Status: Acute (7) UTI (urinary tract infection) Status: Acute (8) CHF (congestive heart failure) Status: Chronic (9) CKD (chronic kidney disease) Status: Chronic (10) Diabetes mellitus Status: Chronic (11) Afib Status: Acute (12) Anemia Status: Acute (13) Bilateral hydronephrosis Status: Acute (14) CKD (chronic kidney disease) stage 4, GFR 15-29 ml/min Status: Acute (15) Metabolic acidosis Status: Acute (16) Dementia Status: Chronic - Assessment and Plan (Free Text) Plan: pt seen and examined at bedside overnight events noted very low Hb hypernatremmia IV hydration ID followup antibiotics accuchecks tight glycemic control blood pressure control dvt/gi px fup with labs monitor electrolytes
[2018-01-17 20:28] LABS: BASO # 0.1 K/uL (0.0-0.2); BASO % 0.6 % (0.0-2.0); EOS # 0.1 K/uL (0.0-0.7); HEMOGLOBIN 8.4 g/dL (12.0-18.0); LYMPH # 0.8 K/uL (1.0-4.3); LYMPH % 6.2 % (20.0-40.0); MEAN CELL VOLUME 86.5 fL (80.0-94.0); MEAN CORPUSCULAR HGB CONC 31.3 g/dL (33.0-37.0); MEAN PLATELET VOLUME 7.7 fL (7.2-11.7); MONO # 0.4 K/uL (0.0-0.8); MONO % 3.5 % (0.0-10.0); NEUT # 10.9 K/uL (1.8-7.0); NEUT % 88.7 % (50.0-75.0); PLATELET COUNT 333 K/uL (130-400); RBC 3.12 Mil/uL (4.40-5.90); RED CELL DISTRIBUTION WIDTH 17.1 % (11.5-14.5); WHITE BLOOD COUNT 12.3 K/uL (4.8-10.8)
[2018-01-17 20:48] LABS: EOSINOPHIL 1 % (0-4); LYMPHOCYTE 5 % (20-40); MONOCYTE 1 % (0-10); NEUTROPHIL 93 % (50-75); PLATELET ESTIMATE NORMAL (NORMAL); TOTAL CELLS COUNTED 100
[2018-01-17 20:50] LABS: ANISOCYTOSIS SLIGHT; HYPOCHROMIC SLIGHT; MICROCYTOSIS SLIGHT; POIKILOCYTOSIS SLIGHT; TARGET CELLS SLIGHT
--- NOTE | 2018-01-17 21:03 | CP.PCM.PN ---
Subjective - Date & Time of Evaluation Date of Evaluation: 01/17/18 Time of Evaluation: 16:30 - Subjective Subjective: dictated Objective - Vital Signs/Intake and Output Vital Signs (last 24 hours): Temp Pulse Resp BP Pulse Ox 98.9 F 61 17 148/56 L 100 01/17/18 20:00 01/17/18 20:00 01/17/18 20:00 01/17/18 19:58 01/17/18 20:00 Intake and Output: 01/17/18 01/18/18 18:59 06:59 Intake Total 900 100 Output Total 1285 190 Balance -385 -90 - Medications Medications: Current Medications Dextrose (Dextrose 50% Inj) 0 ml IV STAT PRN; Protocol PRN Reason: Hypoglycemia Protocol Dextrose (Glutose 15) 0 gm PO ONCE PRN; Protocol PRN Reason: Hypoglycemia Protocol Glucagon (Glucagen Diagnostic Kit) 0 mg IM STAT PRN; Protocol PRN Reason: Hypoglycemia Protocol Heparin Sodium (Porcine) (Heparin) 5,000 units SC Q12H [facility] Last Admin: 01/17/18 14:06 Dose: 5,000 units Dextrose (Dextrose 5% In Water 1000 Ml) 1,000 mls @ 0 mls/hr IV .Q0M PRN; Protocol; Per Protocol PRN Reason: Hypoglycemia Protocol Daptomycin 400 mg/ Sodium (Chloride) 100 mls @ 100 mls/hr IV Q48H [facility] PRN Reason: Protocol Stop: 01/19/18 23:01 Last Admin: 01/16/18 23:49 Dose: 100 mls/hr Dextrose (Dextrose 5% In Water) 500 mls @ 50 mls/hr IV .Q10H [facility] Stop: 01/19/18 12:31 Last Admin: 01/17/18 12:33 Dose: 50 mls/hr Insulin Aspart (Novolog) 0 unit SC Q6 [facility] PRN Reason: Protocol Last Admin: 01/17/18 18:03 Dose: 2 u Insulin Detemir (Levemir) 10 unit SC HS [facility] Last Admin: 01/16/18 21:58 Dose: 10 u Pantoprazole Sodium (Protonix Inj) 40 mg IVP DAILY [facility] Tamsulosin HCl (Flomax) 0.4 mg PO DAILY [facility] Last Admin: 01/17/18 12:05 Dose: Not Given - Labs Labs: 01/17/18 20:25 01/17/18 06:33 PT 14.0 SECONDS (9.7-12.2) H 01/13/18 17:42 INR 1.3 01/13/18 17:42 APTT 30 SECONDS (21-34) 01/13/18 17:42
[2018-01-17] MEDS: Insulin Detemir 100 units/ml Vial (Levemir) SC SCH (21:37)
--- NOTE | 2018-01-17 23:28 | CP.PCM.PN ---
Subjective - Date & Time of Evaluation Date of Evaluation: 01/17/18 Time of Evaluation: 16:30 - Subjective Subjective: Patient seen and evaluated. No new events noted Physical Examination - Constitutional Appears: Non-toxic, No Acute Distress - Head Exam Head Exam: ATRAUMATIC, NORMAL INSPECTION - Eye Exam Eye Exam: EOMI, Normal appearance, PERRL Pupil Exam: NORMAL ACCOMODATION - ENT Exam ENT Exam: Mucous Membranes Moist - Neck Exam Neck Exam: Full ROM - Respiratory Exam Respiratory Exam: NORMAL BREATHING PATTERN - Cardiovascular Exam Cardiovascular Exam: +S1, +S2 - GI/Abdominal Exam GI & Abdominal Exam: Soft, Normal Bowel Sounds - Extremities Exam Extremities Exam: Full ROM - Back Exam Back Exam: Full ROM, NORMAL INSPECTION - Neurological Exam Neurological Exam: Alert, Awake, Oriented x3 - Psychiatric Exam Psychiatric exam: Normal Affect, Normal Mood - Skin Skin Exam: Dry, Intact, Normal Color, Warm Objective - Vital Signs/Intake and Output Vital Signs (last 24 hours): Temp Pulse Resp BP Pulse Ox 98.9 F 60 19 151/57 H 100 01/17/18 20:00 01/17/18 22:00 01/17/18 22:00 01/17/18 21:58 01/17/18 22:00 Intake and Output: 01/17/18 01/18/18 18:59 06:59 Intake Total 900 225 Output Total 1285 340 Balance -385 -115 - Medications Medications: Current Medications Dextrose (Dextrose 50% Inj) 0 ml IV STAT PRN; Protocol PRN Reason: Hypoglycemia Protocol Dextrose (Glutose 15) 0 gm PO ONCE PRN; Protocol PRN Reason: Hypoglycemia Protocol Glucagon (Glucagen Diagnostic Kit) 0 mg IM STAT PRN; Protocol PRN Reason: Hypoglycemia Protocol Heparin Sodium (Porcine) (Heparin) 5,000 units SC Q12H [facility] Last Admin: 01/17/18 14:06 Dose: 5,000 units Dextrose (Dextrose 5% In Water 1000 Ml) 1,000 mls @ 0 mls/hr IV .Q0M PRN; Protocol; Per Protocol PRN Reason: Hypoglycemia Protocol Daptomycin 400 mg/ Sodium (Chloride) 100 mls @ 100 mls/hr IV Q48H [facility] PRN Reason: Protocol Stop: 01/19/18 23:01 Last Admin: 01/16/18 23:49 Dose: 100 mls/hr Dextrose (Dextrose 5% In Water 1000 Ml) 1,000 mls @ 75 mls/hr IV .[id number] [facility] Last Admin: 01/17/18 22:58 Dose: 75 mls/hr Insulin Aspart (Novolog) 0 unit SC Q6 [facility] PRN Reason: Protocol Last Admin: 01/17/18 18:03 Dose: 2 u Insulin Detemir (Levemir) 10 unit SC HS [facility] Last Admin: 01/17/18 21:37 Dose: 10 u Pantoprazole Sodium (Protonix Inj) 40 mg IVP DAILY [facility] Tamsulosin HCl (Flomax) 0.4 mg PO DAILY [facility] Last Admin: 01/17/18 12:05 Dose: Not Given - Labs Labs: 01/17/18 20:25 01/17/18 06:33 PT 14.0 SECONDS (9.7-12.2) H 01/13/18 17:42 INR 1.3 01/13/18 17:42 APTT 30 SECONDS (21-34) 01/13/18 17:42 Assessment and Plan - Assessment and Plan (Free Text) Assessment: Assessment and Plan (1) CHF (congestive heart failure) Assessment & Plan: EF approx 15-20% with noted severe LV global hypokinesia. Diastolic dysfunction cannot be determined. Moderately reduced systolic function. Refer to complete report. Will review whether patient has had a LifeVest before. Status: Chronic (2) Diabetes mellitus Assessment & Plan: On ISS Accuchecks Continued management Status: Chronic (3) Electrolyte imbalance Assessment & Plan: Replete as needed Status: Acute (4) Dementia Assessment & Plan: May need some form of maintenance therapy. Continued management per primary Status: Chronic (5) Prophylactic measure Assessment & Plan: PPI 40 mg IV daily [facility] Heparin 5,000 SC Q12 Status: Acute
[2018-01-18] MEDS: (Novolog) Insulin Aspart, Recombinant 100 u/ml 10 ml vial SC SCH ×4 (00:47→18:24)
[2018-01-18 06:13] LABS: BASO % 0.3 % (0.0-2.0); EOS # 0.2 K/uL (0.0-0.7); EOS % 1.3 % (0.0-4.0); LYMPH # 0.7 K/uL (1.0-4.3); LYMPH % 5.6 % (20.0-40.0); MEAN CELL VOLUME 85.7 fL (80.0-94.0); MEAN CORPUSCULAR HEMOGLOBIN 27.4 pg (27.0-31.0); MEAN CORPUSCULAR HGB CONC 31.9 g/dL (33.0-37.0); MEAN PLATELET VOLUME 8.3 fL (7.2-11.7); MONO # 0.4 K/uL (0.0-0.8); MONO % 3.6 % (0.0-10.0); NEUT # 10.7 K/uL (1.8-7.0); NEUT % 89.2 % (50.0-75.0); PLATELET COUNT 309 K/uL (130-400); RBC 2.93 Mil/uL (4.40-5.90); RED CELL DISTRIBUTION WIDTH 17.1 % (11.5-14.5)
[2018-01-18 06:39] LABS: ALBUMIN 3.9 g/dL (3.5-5.0)
[2018-01-18 07:00] LABS: CALCIUM 9.4 mg/dl (8.6-10.4)
[2018-01-18 08:17] LABS: ANISOCYTOSIS SLIGHT; EOSINOPHIL 2 % (0-4); HYPOCHROMIC SLIGHT; LYMPHOCYTE 8 % (20-40); MONOCYTE 5 % (0-10); NEUTROPHIL 85 % (50-75); PLATELET ESTIMATE NORMAL (NORMAL); POIKILOCYTOSIS SLIGHT; TOTAL CELLS COUNTED 100
--- NOTE | 2018-01-18 08:56 | PN ---
Copied To: Teresa Barnett MD Attending MD: Teresa Barnett MD DATE: 01/17/2018 SUBJECTIVE: Patient remains lethargic. He has a history of dementia, BPH. He has a colostomy. At this time, he presented with MRSA septicemia and was seen by the Intensive Care Unit. They are saying that he was admitted with GI bleed, admitted with atrial flutter and fibrillation, admitted with worsening renal failure and he is having polyuria and they gave DDAVP and after that, the urine output is slightly better. Sodium level is still on the high side. PHYSICAL EXAMINATION: VITAL SIGNS: T-max is 98.9, pulse , blood pressure is 148/56, respirations are 17 and patient is on oxygen. GENERAL: He remains lethargic. NECK: Supple. LUNGS: Clear. HEART: S1 and S2 regular. ABDOMEN: Soft and nontender. Colostomy is present. He has a Mendes. EXTREMITIES: Have no edema. LABORATORY DATA: Labs are noted, but computer got disconnected now. PLAN: We will continue antibiotics. He is on daptomycin for Staph aureus, which was present in the urine also. We did CAT scan, the report of which I wanted to review; but disconnection is just giving me too much trouble. We will follow. We need to reconnect and we will look into the culture reports, and we will continue with daptomycin, and we will follow with the strategic planning consultant. Patient however has a history of dementia and still remains in a poor condition. Teresa Barnett MD
[2018-01-18] MEDS ORDERED: Sodium Chloride 0.45% 1,000 ML IV ONE (09:39)
--- NOTE | 2018-01-18 10:06 | CP.PCM.PN ---
<Paris Diamond - Last Filed: 01/18/18 17:05> Subjective - Date & Time of Evaluation Date of Evaluation: 01/18/18 Time of Evaluation: 12:05 - Subjective Subjective: Cardiology Progress Note- Dr. Thompson's service Patient seen and examined in no apparent acute distress. Patient apparently very drowsy per last nursing shift. Patient not able to comply with ROS at the moment due to altered mentation. Objective - Vital Signs/Intake and Output Vital Signs (last 24 hours): Temp Pulse Resp BP Pulse Ox 98.2 F 59 L 13 128/49 L 100 01/18/18 08:00 01/18/18 09:00 01/18/18 09:00 01/18/18 08:58 01/18/18 09:00 Intake and Output: 01/18/18 01/18/18 06:59 18:59 Intake Total 825 225 Output Total 1175 150 Balance -350 75 - Medications Medications: Current Medications Dextrose (Dextrose 50% Inj) 0 ml IV STAT PRN; Protocol PRN Reason: Hypoglycemia Protocol Dextrose (Glutose 15) 0 gm PO ONCE PRN; Protocol PRN Reason: Hypoglycemia Protocol Glucagon (Glucagen Diagnostic Kit) 0 mg IM STAT PRN; Protocol PRN Reason: Hypoglycemia Protocol Heparin Sodium (Porcine) (Heparin) 5,000 units SC Q12H [facility] Last Admin: 01/18/18 01:28 Dose: 5,000 units Dextrose (Dextrose 5% In Water 1000 Ml) 1,000 mls @ 0 mls/hr IV .Q0M PRN; Protocol; Per Protocol PRN Reason: Hypoglycemia Protocol Daptomycin 400 mg/ Sodium (Chloride) 100 mls @ 100 mls/hr IV Q48H [facility] PRN Reason: Protocol Stop: 01/19/18 23:01 Last Admin: 01/16/18 23:49 Dose: 100 mls/hr Dextrose (Dextrose 5% In Water 1000 Ml) 1,000 mls @ 75 mls/hr IV .[id number] [facility] Last Admin: 01/17/18 22:58 Dose: 75 mls/hr Sodium Chloride (Sodium Chloride 0.45%) 1,000 mls @ 100 mls/hr IV .Q10H [facility] Stop: 01/18/18 19:38 Last Admin: 01/18/18 09:50 Dose: 100 mls/hr Potassium Chloride (Potassium Chloride 10 Meq/100 Ml) 10 meq in 100 mls @ 100 mls/hr IVPB Q1H [facility] Stop: 01/18/18 13:59 Last Admin: 01/18/18 09:51 Dose: 100 mls/hr Insulin Aspart (Novolog) 0 unit SC Q6 [facility] PRN Reason: Protocol Last Admin: 01/18/18 05:56 Dose: 1 u Insulin Detemir (Levemir) 10 unit SC HS [facility] Last Admin: 01/17/18 21:37 Dose: 10 u Pantoprazole Sodium (Protonix Inj) 40 mg IVP DAILY [facility] Tamsulosin HCl (Flomax) 0.4 mg PO DAILY [facility] Last Admin: 01/17/18 12:05 Dose: Not Given - Labs Labs: 01/18/18 05:59 01/18/18 05:59 PT 14.0 SECONDS (9.7-12.2) H 01/13/18 17:42 INR 1.3 01/13/18 17:42 APTT 30 SECONDS (21-34) 01/13/18 17:42 - Constitutional Appears: Non-toxic, No Acute Distress - Head Exam Head Exam: ATRAUMATIC, NORMAL INSPECTION - Eye Exam Eye Exam: EOMI, Normal appearance, PERRL Pupil Exam: NORMAL ACCOMODATION - ENT Exam ENT Exam: Mucous Membranes Moist - Neck Exam Neck Exam: Full ROM - Respiratory Exam Respiratory Exam: NORMAL BREATHING PATTERN - Cardiovascular Exam Cardiovascular Exam: +S1, +S2 - GI/Abdominal Exam GI & Abdominal Exam: Soft, Normal Bowel Sounds - Extremities Exam Extremities Exam: Full ROM - Back Exam Back Exam: Full ROM, NORMAL INSPECTION - Neurological Exam Neurological Exam: Alert, Awake, Oriented x3 - Psychiatric Exam Psychiatric exam: Normal Affect, Normal Mood - Skin Skin Exam: Dry, Intact, Normal Color, Warm Assessment and Plan (1) CHF (congestive heart failure) Assessment & Plan: EF approx 15-20% with noted severe LV global hypokinesia. Diastolic dysfunction cannot be determined. Moderately reduced systolic function. Refer to complete report. Will review whether patient has had a LifeVest before. Status: Chronic (2) Diabetes mellitus Assessment & Plan: On ISS Accuchecks Continued management Status: Chronic (3) Electrolyte imbalance Assessment & Plan: Replete as needed Status: Acute (4) Dementia Assessment & Plan: May need some form of maintenance therapy. Continued management per primary Status: Chronic (5) Prophylactic measure Assessment & Plan: PPI 40 mg IV daily [facility] Heparin 5,000 SC Q12 Status: Acute <Real Thompson - Last Filed: 01/18/18 22:33> Objective - Vital Signs/Intake and Output Vital Signs (last 24 hours): Temp Pulse Resp BP Pulse Ox 87.6 F L 65 25 H 148/56 L 96 01/18/18 15:43 01/18/18 21:00 01/18/18 21:00 01/18/18 20:58 01/18/18 21:00 Intake and Output: 01/18/18 01/19/18 18:59 06:59 Intake Total 1725 535 Output Total 700 475 Balance 1025 60 - Medications Medications: Current Medications Dextrose (Dextrose 50% Inj) 0 ml IV STAT PRN; Protocol PRN Reason: Hypoglycemia Protocol Dextrose (Glutose 15) 0 gm PO ONCE PRN; Protocol PRN Reason: Hypoglycemia Protocol Glucagon (Glucagen Diagnostic Kit) 0 mg IM STAT PRN; Protocol PRN Reason: Hypoglycemia Protocol Heparin Sodium (Porcine) (Heparin) 5,000 units SC Q12H [facility] Last Admin: 01/18/18 13:17 Dose: 5,000 units Dextrose (Dextrose 5% In Water 1000 Ml) 1,000 mls @ 0 mls/hr IV .Q0M PRN; Protocol; Per Protocol PRN Reason: Hypoglycemia Protocol Daptomycin 400 mg/ Sodium (Chloride) 100 mls @ 100 mls/hr IV Q48H [facility] PRN Reason: Protocol Stop: 01/19/18 23:01 Last Admin: 01/18/18 22:16 Dose: 100 mls/hr Sodium Chloride (Sodium Chloride 0.45%) 1,000 mls @ 100 mls/hr IV .Q10H [facility] Last Admin: 01/18/18 21:13 Dose: 100 mls/hr Insulin Aspart (Novolog) 0 unit SC Q6 [facility] PRN Reason: Protocol Last Admin: 01/18/18 18:24 Dose: Not Given Insulin Detemir (Levemir) 10 unit SC HS [facility] Last Admin: 01/18/18 21:19 Dose: 10 u Pantoprazole Sodium (Protonix Inj) 40 mg IVP DAILY [facility] Last Admin: 01/18/18 13:20 Dose: 40 mg Tamsulosin HCl (Flomax) 0.4 mg PO DAILY [facility] Last Admin: 01/18/18 10:00 Dose: Not Given - Labs Labs: 01/18/18 05:59 01/18/18 15:38 PT 14.0 SECONDS (9.7-12.2) H 01/13/18 17:42 INR 1.3 01/13/18 17:42 APTT 30 SECONDS (21-34) 01/13/18 17:42 Assessment and Plan - Assessment and Plan (Free Text) Assessment: Patient seen and evaluated personally by me Plan of care d/w the resident and as documented
--- NOTE | 2018-01-18 10:30 | CP.CCUPN ---
<Gary Rajan - Last Filed: 01/18/18 16:16> CCU Subjective - Physician Review Subjective (Free Text): 01/14/18 13:08 ICU Progress note Patient seen and examined at bedside. Patient is unable to provide history and does not respond to questions. CCU Objective - Vital Signs / Intake & Output Vital Signs (Last 4 hours): Vital Signs Temp Pulse Resp BP Pulse Ox 01/18/18 09:00 59 L 13 100 01/18/18 08:58 60 17 128/49 L 100 01/18/18 08:00 98.2 F 60 10 L 135/54 L 100 01/18/18 07:58 58 L 19 135/54 L 01/18/18 07:00 66 17 100 01/18/18 06:59 56 L 9 L 140/52 L 98 Intake and Output (Last 8hrs): Intake & Output 01/17/18 01/18/18 01/18/18 22:59 06:59 14:59 Intake Total 425 600 225 Output Total 1010 835 150 Balance -585 -235 75 Weight 163 lb 2.273 oz Intake: Intake, IV Amount 425 600 225 Left Forearm Y-site 250 Left Hand 175 600 225 Output: Urine 810 535 150 Urethral (Mendes) 810 535 150 Stool 200 300 - Physical Exam Head: Positive for: Atraumatic, Normocephalic Pupils: Positive for: PERRL. Negative for: Sluggish, Non-Reactive Extroacular Muscles: Negative for: EOMI (not following commands for EOMI testing ) Conjunctiva: Positive for: Normal. Negative for: Injected, Icteric Mouth: Positive for: Moist Mucous Membranes. Negative for: Drooling Nose (External): Positive for: Atraumatic. Negative for: Abrasion, Contusion, Laceration Nose (Internal): Positive for: No Active Bleeding. Negative for: Epistaxis Neck: Negative for: JVD Respiratory/Chest: Positive for: Clear to Auscultation, Other (no notable rales/ wheezes/ronchi). Negative for: Respiratory Distress, Accessory Muscle Use, Wheezes, Rales, Rhonchi Cardiovascular: Positive for: Normal S1, S2, Peripheal Pulses Present (+2 dorsalis pedis and radials bilaterally), Tachycardic. Negative for: Irregular Rhythm, Bradycardic Abdomen: Positive for: Normal Bowel Sounds, Other (ostomy bag at RLQ, ostomy appears pink/patent, no surrounding erythema). Negative for: Distention Upper Extremity: Positive for: NORMAL PULSES. Negative for: Cyanosis, Edema, Swelling, Erythema, Deformity Lower Extremity: Positive for: Normal Inspection, NORMAL PULSES. Negative for: Edema, CALF TENDERNESS, Cyanosis, Swelling, Erythema, Deformity Neurological: Positive for: Motor Func Grossly Intact (not following commands. ) . Negative for: GCS=15 (GCS 9 ([id number])) Skin: Positive for: Warm, Dry Psychiatric: Positive for: Other (Unable to determine since patient is demented and altered) - Medications Active Medications: Active Medications Generic Name Dose Route Start Last Admin Trade Name Freq PRN Reason Stop Dose Admin Dextrose 0 ml 01/14/18 15:10 Dextrose 50% Inj IV STAT PRN Hypoglycemia Protocol Protocol Dextrose 0 gm 01/14/18 15:10 Glutose 15 PO ONCE PRN Hypoglycemia Protocol Protocol Glucagon 0 mg 01/14/18 15:10 Glucagen Diagnostic Kit IM STAT PRN Hypoglycemia Protocol Protocol Heparin Sodium (Porcine) 5,000 units 01/14/18 01:45 01/18/18 01:28 Heparin SC 5,000 units Q12H NEL Administration Dextrose 1,000 mls @ 0 mls/hr 01/14/18 15:10 Dextrose 5% In Water 1000 Ml IV .Q0M PRN Hypoglycemia Protocol Protocol Per Protocol Daptomycin 400 mg/ Sodium 100 mls @ 100 mls/hr 01/14/18 23:00 01/16/18 23:49 Chloride IV 01/19/18 23:01 100 mls/hr Q48H NEL Administration Protocol Dextrose 1,000 mls @ 75 mls/hr 01/17/18 22:00 01/17/18 22:58 Dextrose 5% In Water 1000 Ml IV 75 mls/hr .[id number] NEL Administration Sodium Chloride 1,000 mls @ 100 mls/hr 01/18/18 09:39 01/18/18 09:50 Sodium Chloride 0.45% IV 01/18/18 19:38 100 mls/hr .Q10H ONE Administration Potassium Chloride 10 meq in 100 mls @ 100 mls/hr 01/18/18 10:00 01/18/18 09: 51 Potassium Chloride 10 Meq/100 Ml IVPB 01/18/18 13:59 100 mls/hr Q1H NEL Administration Insulin Aspart 0 unit 01/14/18 06:00 01/18/18 05:56 Novolog SC 1 u Q6 NEL Administration Protocol Insulin Detemir 10 unit 01/14/18 22:00 01/17/18 21:37 Levemir SC 10 u HS NEL Administration Pantoprazole Sodium 40 mg 01/18/18 10:00 Protonix Inj IVP DAILY NEL Tamsulosin HCl 0.4 mg 01/14/18 10:00 01/17/18 12:05 Flomax PO Not Given DAILY NEL - Patient Studies Lab Studies: Lab Studies 01/18/18 01/18/18 01/18/18 Range/Units 05:59 05:59 04:59 WBC 12.0 H (4.8-10.8) K/uL RBC 2.93 L (4.40-5.90) Mil/uL Hgb 8.0 L (12.0-18.0) g/dL Hct 25.2 L (35.0-51.0) % MCV 85.7 (80.0-94.0) fL MCH 27.4 (27.0-31.0) pg MCHC 31.9 L (33.0-37.0) g/dL RDW 17.1 H (11.5-14.5) % Plt Count 309 (130-400) K/uL MPV 8.3 (7.2-11.7) fL Neut % (Auto) 89.2 H (50.0-75.0) % Lymph % (Auto) 5.6 L (20.0-40.0) % [place] % (Auto) 3.6 (0.0-10.0) % Eos % (Auto) 1.3 (0.0-4.0) % Baso % (Auto) 0.3 (0.0-2.0) % Neut # (Auto) 10.7 H (1.8-7.0) K/uL Lymph # (Auto) 0.7 L (1.0-4.3) K/uL [place] # (Auto) 0.4 (0.0-0.8) K/uL Eos # (Auto) 0.2 (0.0-0.7) K/uL Baso # (Auto) 0.0 (0.0-0.2) K/uL Neutrophils % (Manual) 85 H (50-75) % Lymphocytes % (Manual) 8 L (20-40) % Monocytes % (Manual) 5 (0-10) % Eosinophils % (Manual) 2 (0-4) % Platelet Estimate Normal (NORMAL) Hypochromasia (manual) Slight Poikilocytosis (manual Slight Anisocytosis (manual) Slight Microcytosis (manual) Target Cells Sodium 161 H* (132-148) mmol/L Potassium 3.2 L (3.6-5.2) mmol/L Chloride 114 H (98-107) mmol/L Carbon Dioxide 33 H (22-30) mmol/L Anion Gap 18 (10-20) BUN 52 H (9-20) mg/dL Creatinine 2.0 H (0.8-1.5) mg/dL Est GFR ( Amer) 40 Est GFR (Non-Af Amer) 33 POC Glucose (mg/dL) 170 H (65-110) mg/dL Random Glucose 171 H (75-110) mg/dL Calcium 9.4 (8.6-10.4) mg/dl Magnesium 2.0 (1.6-2.3) mg/dL Total Bilirubin 1.0 (0.2-1.3) mg/dL AST 47 (17-59) U/L ALT 28 (21-72) U/L Alkaline Phosphatase 138 H (38-126) U/L Total Protein 7.6 (6.3-8.3) g/dL Albumin 3.9 (3.5-5.0) g/dL Globulin 3.8 (2.2-3.9) gm/dL Albumin/Globulin Ratio 1.0 (1.0-2.1) 01/18/18 01/17/18 01/17/18 Range/Units 00:31 20:25 17:42 WBC 12.3 H (4.8-10.8) K/uL RBC 3.12 L (4.40-5.90) Mil/uL Hgb 8.4 L (12.0-18.0) g/dL Hct 27.0 L (35.0-51.0) % MCV 86.5 (80.0-94.0) fL MCH 27.0 (27.0-31.0) pg MCHC 31.3 L (33.0-37.0) g/dL RDW 17.1 H (11.5-14.5) % Plt Count 333 (130-400) K/uL MPV 7.7 (7.2-11.7) fL Neut % (Auto) 88.7 H (50.0-75.0) % Lymph % (Auto) 6.2 L (20.0-40.0) % [place] % (Auto) 3.5 (0.0-10.0) % Eos % (Auto) 1.0 (0.0-4.0) % Baso % (Auto) 0.6 (0.0-2.0) % Neut # (Auto) 10.9 H (1.8-7.0) K/uL Lymph # (Auto) 0.8 L (1.0-4.3) K/uL [place] # (Auto) 0.4 (0.0-0.8) K/uL Eos # (Auto) 0.1 (0.0-0.7) K/uL Baso # (Auto) 0.1 (0.0-0.2) K/uL Neutrophils % (Manual) 93 H (50-75) % Lymphocytes % (Manual) 5 L (20-40) % Monocytes % (Manual) 1 (0-10) % Eosinophils % (Manual) 1 (0-4) % Platelet Estimate Normal (NORMAL) Hypochromasia (manual) Slight Poikilocytosis (manual Slight Anisocytosis (manual) Slight Microcytosis (manual) Slight Target Cells Slight Sodium (132-148) mmol/L Potassium (3.6-5.2) mmol/L Chloride (98-107) mmol/L Carbon Dioxide (22-30) mmol/L Anion Gap (10-20) BUN (9-20) mg/dL Creatinine (0.8-1.5) mg/dL Est GFR ( Amer) Est GFR (Non-Af Amer) POC Glucose (mg/dL) 185 H 208 H (65-110) mg/dL Random Glucose (75-110) mg/dL Calcium (8.6-10.4) mg/dl Magnesium (1.6-2.3) mg/dL Total Bilirubin (0.2-1.3) mg/dL AST (17-59) U/L ALT (21-72) U/L Alkaline Phosphatase (38-126) U/L Total Protein (6.3-8.3) g/dL Albumin (3.5-5.0) g/dL Globulin (2.2-3.9) gm/dL Albumin/Globulin Ratio (1.0-2.1) 01/17/18 Range/Units 11:49 WBC (4.8-10.8) K/uL RBC (4.40-5.90) Mil/uL Hgb (12.0-18.0) g/dL Hct (35.0-51.0) % MCV (80.0-94.0) fL MCH (27.0-31.0) pg MCHC (33.0-37.0) g/dL RDW (11.5-14.5) % Plt Count (130-400) K/uL MPV (7.2-11.7) fL Neut % (Auto) (50.0-75.0) % Lymph % (Auto) (20.0-40.0) % [place] % (Auto) (0.0-10.0) % Eos % (Auto) (0.0-4.0) % Baso % (Auto) (0.0-2.0) % Neut # (Auto) (1.8-7.0) K/uL Lymph # (Auto) (1.0-4.3) K/uL [place] # (Auto) (0.0-0.8) K/uL Eos # (Auto) (0.0-0.7) K/uL Baso # (Auto) (0.0-0.2) K/uL Neutrophils % (Manual) (50-75) % Lymphocytes % (Manual) (20-40) % Monocytes % (Manual) (0-10) % Eosinophils % (Manual) (0-4) % Platelet Estimate (NORMAL) Hypochromasia (manual) Poikilocytosis (manual Anisocytosis (manual) Microcytosis (manual) Target Cells Sodium (132-148) mmol/L Potassium (3.6-5.2) mmol/L Chloride (98-107) mmol/L Carbon Dioxide (22-30) mmol/L Anion Gap (10-20) BUN (9-20) mg/dL Creatinine (0.8-1.5) mg/dL Est GFR ( Amer) Est GFR (Non-Af Amer) POC Glucose (mg/dL) 140 H (65-110) mg/dL Random Glucose (75-110) mg/dL Calcium (8.6-10.4) mg/dl Magnesium (1.6-2.3) mg/dL Total Bilirubin (0.2-1.3) mg/dL AST (17-59) U/L ALT (21-72) U/L Alkaline Phosphatase (38-126) U/L Total Protein (6.3-8.3) g/dL Albumin (3.5-5.0) g/dL Globulin (2.2-3.9) gm/dL Albumin/Globulin Ratio (1.0-2.1) Laboratory Results - last 24 hr 01/17/18 01/17/18 01/17/18 11:49 17:42 20:25 WBC 12.3 H RBC 3.12 L Hgb 8.4 L Hct 27.0 L MCV 86.5 MCH 27.0 MCHC 31.3 L RDW 17.1 H Plt Count 333 MPV 7.7 Neut % (Auto) 88.7 H Lymph % (Auto) 6.2 L [place] % (Auto) 3.5 Eos % (Auto) 1.0 Baso % (Auto) 0.6 Neut # (Auto) 10.9 H Lymph # (Auto) 0.8 L [place] # (Auto) 0.4 Eos # (Auto) 0.1 Baso # (Auto) 0.1 Neutrophils % (Manual) 93 H Lymphocytes % (Manual) 5 L Monocytes % (Manual) 1 Eosinophils % (Manual) 1 Platelet Estimate Normal Hypochromasia (manual) Slight Poikilocytosis (manual Slight Anisocytosis (manual) Slight Microcytosis (manual) Slight Target Cells Slight Sodium Potassium Chloride Carbon Dioxide Anion Gap BUN Creatinine Est GFR ( Amer) Est GFR (Non-Af Amer) POC Glucose (mg/dL) 140 H 208 H Random Glucose Calcium Magnesium Total Bilirubin AST ALT Alkaline Phosphatase Total Protein Albumin Globulin Albumin/Globulin Ratio 01/18/18 01/18/18 01/18/18 00:31 04:59 05:59 WBC 12.0 H RBC 2.93 L Hgb 8.0 L Hct 25.2 L MCV 85.7 MCH 27.4 MCHC 31.9 L RDW 17.1 H Plt Count 309 MPV 8.3 Neut % (Auto) 89.2 H Lymph % (Auto) 5.6 L [place] % (Auto) 3.6 Eos % (Auto) 1.3 Baso % (Auto) 0.3 Neut # (Auto) 10.7 H Lymph # (Auto) 0.7 L [place] # (Auto) 0.4 Eos # (Auto) 0.2 Baso # (Auto) 0.0 Neutrophils % (Manual) 85 H Lymphocytes % (Manual) 8 L Monocytes % (Manual) 5 Eosinophils % (Manual) 2 Platelet Estimate Normal Hypochromasia (manual) Slight Poikilocytosis (manual Slight Anisocytosis (manual) Slight Microcytosis (manual) Target Cells Sodium Potassium Chloride Carbon Dioxide Anion Gap BUN Creatinine Est GFR ( Amer) Est GFR (Non-Af Amer) POC Glucose (mg/dL) 185 H 170 H Random Glucose Calcium Magnesium Total Bilirubin AST ALT Alkaline Phosphatase Total Protein Albumin Globulin Albumin/Globulin Ratio 01/18/18 05:59 WBC RBC Hgb Hct MCV MCH MCHC RDW Plt Count MPV Neut % (Auto) Lymph % (Auto) [place] % (Auto) Eos % (Auto) Baso % (Auto) Neut # (Auto) Lymph # (Auto) [place] # (Auto) Eos # (Auto) Baso # (Auto) Neutrophils % (Manual) Lymphocytes % (Manual) Monocytes % (Manual) Eosinophils % (Manual) Platelet Estimate Hypochromasia (manual) Poikilocytosis (manual Anisocytosis (manual) Microcytosis (manual) Target Cells Sodium 161 H* Potassium 3.2 L Chloride 114 H Carbon Dioxide 33 H Anion Gap 18 BUN 52 H Creatinine 2.0 H Est GFR ( Amer) 40 Est GFR (Non-Af Amer) 33 POC Glucose (mg/dL) Random Glucose 171 H Calcium 9.4 Magnesium 2.0 Total Bilirubin 1.0 AST 47 ALT 28 Alkaline Phosphatase 138 H Total Protein 7.6 Albumin 3.9 Globulin 3.8 Albumin/Globulin Ratio 1.0 Fingerstick Blood Sugar Results: 170 Review of Systems - Review of Systems Systems not reviewed;Unavailable: Altered Mental Status Critical Care Progress Note - Nutrition Nutrition: Nutrition Category Date Time Status NPO Diet [DIET] Diets 01/14/18 Breakfast Active Assessment/Plan - Assessment and Plan (Free Text) Assessment: 72 year old male with history of dementia, DM, BPH and CKD who [facility] he was found altered after he had been refusing to eat. Patient is altered and unable to provide history. Patient was found to be hyperkalemic, and in acute kidney injury with abnormal Cr and BUN. ICU consulted for management of significant electrolyte imbalances. JOY is improving, but electrolyte abnormalities persist and patient is hypernatremic. Plan: Neuro: -Altered mental status -Head CT: No acute intracranial pathology. Age-related changes. No significant interval change. -Keep NPO until mental status improves -U Tox: negative -Valproic acid <10.0 Cardiovascular: -Chronic systolic heart failure, admission proBNP 8010 -Troponin 0.0730 -->0.0710 -->0.0550 -Echo notable for EF 15-20%, indeterminate diastolic function, severe LV global hypokinesia, moderately reduced RV systolic fxn, LA mildly dilated, mild MR/TR -HR currently in 50s -Strict I's and O's - Cardiology Dr. Thompson consulted, help appreciated Pulmonary: -Currently on O2 via NC 2L, satting well -CXR: no acute disease GI: -Protonix 40mg Q12 IV -Abd US: Limited study; Increased echogenicity of the hepatic parenchymal cortex suggestive for fatty infiltration versus hepatic parenchymal disease; top normal wall thickness of the gallbladder measuring 3 millimeters; mildly ectatic and prominent distal abdominal aorta measuring up to 2.9 centimeters; bilateral renal cysts -Stool occult negative for blood -CT chest abd/pelvis There is marked wall thickening of the urinary bladder with intraluminal urinary bladder air in part due to the presence of an in situ unclamped Mendes catheter however the possibility of a UTI must be considered. There is also on dense appearance of the urothelium in both renal pelves and proximal ureters also suggesting UTI. Clinical correlation with urinalysis recommended. . Bibasilar atelectasis right greater than left. Rule out developing infiltrate. Cardiomegaly. See above discussion for additional details and findings. Right lower quadrant ostomy. Clinical correlation with surgical history recommended Renal: -Acute kidney injury on CKD, improving currently -BUN 219 on admission, 52 today -Cr 10.7 on admission, 2.0 today -Serum osmolarity 410, Urine osmolality 475 -Ur random Cr 94 Urine Na 64 urine urea nitrogen 476 -Initial Na 156, K 8 --> today: Na 161, K 3.2; K repleted - 1/2 NS IV fluids, repeat BMP at 15:00 revealed Na at 157, improved from 161 earlier today ID -WBCs increased to 12.0 -ID (Dr. Barnett) consulted, help appreciated -switched to Daptomycin QOD, continue -Blood cx x2 positive for MRSA, 1x blood cx also positive for E faecalis, urine culture positive for MRSA > 100k CFUs -UA: 3+ LE 3+ blood 2+ protein -VBG lactate 1.3 --> 2.0 (on 01/13), serum lactate 1.8 (on 01/14) Heme -Hb currently stable at 8.0/Hct 25.2 -no signs of acute bleeding and stool occult negative Endo -continue Levemir 10unit SC HS, continue accuchecks PPX: Heparin 5000 unit SC Q12, Protonix 40mg IV Case discussed with Dr. Stern <Elder Stern S - Last Filed: 01/18/18 17:59> CCU Subjective - Physician Review Critical Care Time Spent (in minutes): 30 CCU Objective - Vital Signs / Intake & Output Vital Signs (Last 4 hours): Vital Signs Temp Pulse Resp BP Pulse Ox 01/18/18 16:00 57 L 18 99 01/18/18 15:58 50 L 11 L 150/54 L 98 01/18/18 15:46 54 L 23 136/52 L 96 01/18/18 15:43 87.6 F L 56 L 16 136/52 L 100 01/18/18 15:00 59 L 16 98 01/18/18 14:59 58 L 19 149/56 L 98 01/18/18 14:00 54 L 17 99 01/18/18 13:59 70 12 145/57 L 99 Intake and Output (Last 8hrs): Intake & Output 01/18/18 01/18/18 01/18/18 06:59 14:59 22:59 Intake Total 600 1325 300 Output Total 835 260 240 Balance -235 1065 60 Weight 163 lb 2.273 oz Intake: Intake, IV Amount 600 1125 300 Left Hand 600 725 300 piggyback left hand IV 400 Oral 0 0 Other 200 Output: Urine 535 260 240 Urethral (Mendes) 535 260 240 Stool 300 - Medications Active Medications: Active Medications Generic Name Dose Route Start Last Admin Trade Name Freq PRN Reason Stop Dose Admin Dextrose 0 ml 01/14/18 15:10 Dextrose 50% Inj IV STAT PRN Hypoglycemia Protocol Protocol Dextrose 0 gm 01/14/18 15:10 Glutose 15 PO ONCE PRN Hypoglycemia Protocol Protocol Glucagon 0 mg 01/14/18 15:10 Glucagen Diagnostic Kit IM STAT PRN Hypoglycemia Protocol Protocol Heparin Sodium (Porcine) 5,000 units 01/14/18 01:45 01/18/18 13:17 Heparin SC 5,000 units Q12H NEL Administration Dextrose 1,000 mls @ 0 mls/hr 01/14/18 15:10 Dextrose 5% In Water 1000 Ml IV .Q0M PRN Hypoglycemia Protocol Protocol Per Protocol Daptomycin 400 mg/ Sodium 100 mls @ 100 mls/hr 01/14/18 23:00 01/16/18 23:49 Chloride IV 01/19/18 23:01 100 mls/hr Q48H NEL Administration Protocol Sodium Chloride 1,000 mls @ 100 mls/hr 01/18/18 09:39 01/18/18 09:50 Sodium Chloride 0.45% IV 01/18/18 19:38 100 mls/hr .Q10H ONE Administration Insulin Aspart 0 unit 01/14/18 06:00 01/18/18 12:00 Novolog SC Not Given Q6 NEL Protocol Insulin Detemir 10 unit 01/14/18 22:00 01/17/18 21:37 Levemir SC 10 u HS NEL Administration Pantoprazole Sodium 40 mg 01/18/18 10:00 01/18/18 13:20 Protonix Inj IVP 40 mg DAILY NEL Administration Tamsulosin HCl 0.4 mg 01/14/18 10:00 01/18/18 10:00 Flomax PO Not Given DAILY NEL - Patient Studies Lab Studies: Lab Studies 01/18/18 01/18/18 01/18/18 Range/Units 17:32 15:38 11:52 WBC (4.8-10.8) K/uL RBC (4.40-5.90) Mil/uL Hgb (12.0-18.0) g/dL Hct (35.0-51.0) % MCV (80.0-94.0) fL MCH (27.0-31.0) pg MCHC (33.0-37.0) g/dL RDW (11.5-14.5) % Plt Count (130-400) K/uL MPV (7.2-11.7) fL Neut % (Auto) (50.0-75.0) % Lymph % (Auto) (20.0-40.0) % [place] % (Auto) (0.0-10.0) % Eos % (Auto) (0.0-4.0) % Baso % (Auto) (0.0-2.0) % Neut # (Auto) (1.8-7.0) K/uL Lymph # (Auto) (1.0-4.3) K/uL [place] # (Auto) (0.0-0.8) K/uL Eos # (Auto) (0.0-0.7) K/uL Baso # (Auto) (0.0-0.2) K/uL Neutrophils % (Manual) (50-75) % Lymphocytes % (Manual) (20-40) % Monocytes % (Manual) (0-10) % Eosinophils % (Manual) (0-4) % Platelet Estimate (NORMAL) Hypochromasia (manual) Poikilocytosis (manual Anisocytosis (manual) Microcytosis (manual) Target Cells Sodium 157 H (132-148) mmol/L Potassium 3.7 (3.6-5.2) mmol/L Chloride 113 H (98-107) mmol/L Carbon Dioxide 31 H (22-30) mmol/L Anion Gap 17 (10-20) BUN 46 H (9-20) mg/dL Creatinine 1.9 H (0.8-1.5) mg/dL Est GFR ( Amer) 42 Est GFR (Non-Af Amer) 35 POC Glucose (mg/dL) 133 H 133 H (65-110) mg/dL Random Glucose 135 H (75-110) mg/dL Calcium 9.3 (8.6-10.4) mg/dl Magnesium (1.6-2.3) mg/dL Total Bilirubin (0.2-1.3) mg/dL AST (17-59) U/L ALT (21-72) U/L Alkaline Phosphatase (38-126) U/L Total Protein (6.3-8.3) g/dL Albumin (3.5-5.0) g/dL Globulin (2.2-3.9) gm/dL Albumin/Globulin Ratio (1.0-2.1) 01/18/18 01/18/18 01/18/18 Range/Units 05:59 05:59 04:59 WBC 12.0 H (4.8-10.8) K/uL RBC 2.93 L (4.40-5.90) Mil/uL Hgb 8.0 L (12.0-18.0) g/dL Hct 25.2 L (35.0-51.0) % MCV 85.7 (80.0-94.0) fL MCH 27.4 (27.0-31.0) pg MCHC 31.9 L (33.0-37.0) g/dL RDW 17.1 H (11.5-14.5) % Plt Count 309 (130-400) K/uL MPV 8.3 (7.2-11.7) fL Neut % (Auto) 89.2 H (50.0-75.0) % Lymph % (Auto) 5.6 L (20.0-40.0) % [place] % (Auto) 3.6 (0.0-10.0) % Eos % (Auto) 1.3 (0.0-4.0) % Baso % (Auto) 0.3 (0.0-2.0) % Neut # (Auto) 10.7 H (1.8-7.0) K/uL Lymph # (Auto) 0.7 L (1.0-4.3) K/uL [place] # (Auto) 0.4 (0.0-0.8) K/uL Eos # (Auto) 0.2 (0.0-0.7) K/uL Baso # (Auto) 0.0 (0.0-0.2) K/uL Neutrophils % (Manual) 85 H (50-75) % Lymphocytes % (Manual) 8 L (20-40) % Monocytes % (Manual) 5 (0-10) % Eosinophils % (Manual) 2 (0-4) % Platelet Estimate Normal (NORMAL) Hypochromasia (manual) Slight Poikilocytosis (manual Slight Anisocytosis (manual) Slight Microcytosis (manual) Target Cells Sodium 161 H* (132-148) mmol/L Potassium 3.2 L (3.6-5.2) mmol/L Chloride 114 H (98-107) mmol/L Carbon Dioxide 33 H (22-30) mmol/L Anion Gap 18 (10-20) BUN 52 H (9-20) mg/dL Creatinine 2.0 H (0.8-1.5) mg/dL Est GFR ( Amer) 40 Est GFR (Non-Af Amer) 33 POC Glucose (mg/dL) 170 H (65-110) mg/dL Random Glucose 171 H (75-110) mg/dL Calcium 9.4 (8.6-10.4) mg/dl Magnesium 2.0 (1.6-2.3) mg/dL Total Bilirubin 1.0 (0.2-1.3) mg/dL AST 47 (17-59) U/L ALT 28 (21-72) U/L Alkaline Phosphatase 138 H (38-126) U/L Total Protein 7.6 (6.3-8.3) g/dL Albumin 3.9 (3.5-5.0) g/dL Globulin 3.8 (2.2-3.9) gm/dL Albumin/Globulin Ratio 1.0 (1.0-2.1) 01/18/18 01/17/18 01/17/18 Range/Units 00:31 20:25 17:42 WBC 12.3 H (4.8-10.8) K/uL RBC 3.12 L (4.40-5.90) Mil/uL Hgb 8.4 L (12.0-18.0) g/dL Hct 27.0 L (35.0-51.0) % MCV 86.5 (80.0-94.0) fL MCH 27.0 (27.0-31.0) pg MCHC 31.3 L (33.0-37.0) g/dL RDW 17.1 H (11.5-14.5) % Plt Count 333 (130-400) K/uL MPV 7.7 (7.2-11.7) fL Neut % (Auto) 88.7 H (50.0-75.0) % Lymph % (Auto) 6.2 L (20.0-40.0) % [place] % (Auto) 3.5 (0.0-10.0) % Eos % (Auto) 1.0 (0.0-4.0) % Baso % (Auto) 0.6 (0.0-2.0) % Neut # (Auto) 10.9 H (1.8-7.0) K/uL Lymph # (Auto) 0.8 L (1.0-4.3) K/uL [place] # (Auto) 0.4 (0.0-0.8) K/uL Eos # (Auto) 0.1 (0.0-0.7) K/uL Baso # (Auto) 0.1 (0.0-0.2) K/uL Neutrophils % (Manual) 93 H (50-75) % Lymphocytes % (Manual) 5 L (20-40) % Monocytes % (Manual) 1 (0-10) % Eosinophils % (Manual) 1 (0-4) % Platelet Estimate Normal (NORMAL) Hypochromasia (manual) Slight Poikilocytosis (manual Slight Anisocytosis (manual) Slight Microcytosis (manual) Slight Target Cells Slight Sodium (132-148) mmol/L Potassium (3.6-5.2) mmol/L Chloride (98-107) mmol/L Carbon Dioxide (22-30) mmol/L Anion Gap (10-20) BUN (9-20) mg/dL Creatinine (0.8-1.5) mg/dL Est GFR ( Amer) Est GFR (Non-Af Amer) POC Glucose (mg/dL) 185 H 208 H (65-110) mg/dL Random Glucose (75-110) mg/dL Calcium (8.6-10.4) mg/dl Magnesium (1.6-2.3) mg/dL Total Bilirubin (0.2-1.3) mg/dL AST (17-59) U/L ALT (21-72) U/L Alkaline Phosphatase (38-126) U/L Total Protein (6.3-8.3) g/dL Albumin (3.5-5.0) g/dL Globulin (2.2-3.9) gm/dL Albumin/Globulin Ratio (1.0-2.1) Laboratory Results - last 24 hr 01/17/18 01/17/18 01/18/18 17:42 20:25 00:31 WBC 12.3 H RBC 3.12 L Hgb 8.4 L Hct 27.0 L MCV 86.5 MCH 27.0 MCHC 31.3 L RDW 17.1 H Plt Count 333 MPV 7.7 Neut % (Auto) 88.7 H Lymph % (Auto) 6.2 L [place] % (Auto) 3.5 Eos % (Auto) 1.0 Baso % (Auto) 0.6 Neut # (Auto) 10.9 H Lymph # (Auto) 0.8 L [place] # (Auto) 0.4 Eos # (Auto) 0.1 Baso # (Auto) 0.1 Neutrophils % (Manual) 93 H Lymphocytes % (Manual) 5 L Monocytes % (Manual) 1 Eosinophils % (Manual) 1 Platelet Estimate Normal Hypochromasia (manual) Slight Poikilocytosis (manual Slight Anisocytosis (manual) Slight Microcytosis (manual) Slight Target Cells Slight Sodium Potassium Chloride Carbon Dioxide Anion Gap BUN Creatinine Est GFR ( Amer) Est GFR (Non-Af Amer) POC Glucose (mg/dL) 208 H 185 H Random Glucose Calcium Magnesium Total Bilirubin AST ALT Alkaline Phosphatase Total Protein Albumin Globulin Albumin/Globulin Ratio 01/18/18 01/18/18 01/18/18 04:59 05:59 05:59 WBC 12.0 H RBC 2.93 L Hgb 8.0 L Hct 25.2 L MCV 85.7 MCH 27.4 MCHC 31.9 L RDW 17.1 H Plt Count 309 MPV 8.3 Neut % (Auto) 89.2 H Lymph % (Auto) 5.6 L [place] % (Auto) 3.6 Eos % (Auto) 1.3 Baso % (Auto) 0.3 Neut # (Auto) 10.7 H Lymph # (Auto) 0.7 L [place] # (Auto) 0.4 Eos # (Auto) 0.2 Baso # (Auto) 0.0 Neutrophils % (Manual) 85 H Lymphocytes % (Manual) 8 L Monocytes % (Manual) 5 Eosinophils % (Manual) 2 Platelet Estimate Normal Hypochromasia (manual) Slight Poikilocytosis (manual Slight Anisocytosis (manual) Slight Microcytosis (manual) Target Cells Sodium 161 H* Potassium 3.2 L Chloride 114 H Carbon Dioxide 33 H Anion Gap 18 BUN 52 H Creatinine 2.0 H Est GFR ( Amer) 40 Est GFR (Non-Af Amer) 33 POC Glucose (mg/dL) 170 H Random Glucose 171 H Calcium 9.4 Magnesium 2.0 Total Bilirubin 1.0 AST 47 ALT 28 Alkaline Phosphatase 138 H Total Protein 7.6 Albumin 3.9 Globulin 3.8 Albumin/Globulin Ratio 1.0 01/18/18 01/18/18 01/18/18 11:52 15:38 17:32 WBC RBC Hgb Hct MCV MCH MCHC RDW Plt Count MPV Neut % (Auto) Lymph % (Auto) [place] % (Auto) Eos % (Auto) Baso % (Auto) Neut # (Auto) Lymph # (Auto) [place] # (Auto) Eos # (Auto) Baso # (Auto) Neutrophils % (Manual) Lymphocytes % (Manual) Monocytes % (Manual) Eosinophils % (Manual) Platelet Estimate Hypochromasia (manual) Poikilocytosis (manual Anisocytosis (manual) Microcytosis (manual) Target Cells Sodium 157 H Potassium 3.7 Chloride 113 H Carbon Dioxide 31 H Anion Gap 17 BUN 46 H Creatinine 1.9 H Est GFR ( Amer) 42 Est GFR (Non-Af Amer) 35 POC Glucose (mg/dL) 133 H 133 H Random Glucose 135 H Calcium 9.3 Magnesium Total Bilirubin AST ALT Alkaline Phosphatase Total Protein Albumin Globulin Albumin/Globulin Ratio Critical Care Progress Note - Nutrition Nutrition: Nutrition Category Date Time Status NPO Diet [DIET] Diets 01/14/18 Breakfast Active Attending/Attestation - Attestation I have personally seen and examined this patient.: Yes I have fully participated in the care of the patient.: Yes I have reviewed all pertinent clinical information: Yes Notes (Text): 01/18/18 17:58 patient seen and examined Significant improvement in renal function Patient started on half-normal saline for hyponatremia NG tube feeding and free water Continue present treatment for now
--- NOTE | 2018-01-18 15:48 | CARD ---
APPROVED REPORT Date of service: 01/16/2018 EKG Measurement Heart [id number] <Conclusion> Sinus rhythm with PVCs and junctional escape beats Nonspecific T wave abnormality Abnormal ECG
[2018-01-18 16:01] LABS: CALCIUM 9.3 mg/dl (8.6-10.4)
--- NOTE | 2018-01-18 19:27 | CP.PCM.PN ---
Subjective - Date & Time of Evaluation Date of Evaluation: 01/18/18 Time of Evaluation: 14:15 - Subjective Subjective: clinically same Objective - Vital Signs/Intake and Output Vital Signs (last 24 hours): Temp Pulse Resp BP Pulse Ox 87.6 F L 57 L 0 L 151/65 H 97 01/18/18 15:43 01/18/18 18:00 01/18/18 18:00 01/18/18 17:58 01/18/18 18:00 Intake and Output: 01/18/18 01/19/18 18:59 06:59 Intake Total 1725 Output Total 700 Balance 1025 - Medications Medications: Current Medications Dextrose (Dextrose 50% Inj) 0 ml IV STAT PRN; Protocol PRN Reason: Hypoglycemia Protocol Dextrose (Glutose 15) 0 gm PO ONCE PRN; Protocol PRN Reason: Hypoglycemia Protocol Glucagon (Glucagen Diagnostic Kit) 0 mg IM STAT PRN; Protocol PRN Reason: Hypoglycemia Protocol Heparin Sodium (Porcine) (Heparin) 5,000 units SC Q12H [facility] Last Admin: 01/18/18 13:17 Dose: 5,000 units Dextrose (Dextrose 5% In Water 1000 Ml) 1,000 mls @ 0 mls/hr IV .Q0M PRN; Protocol; Per Protocol PRN Reason: Hypoglycemia Protocol Daptomycin 400 mg/ Sodium (Chloride) 100 mls @ 100 mls/hr IV Q48H [facility] PRN Reason: Protocol Stop: 01/19/18 23:01 Last Admin: 01/16/18 23:49 Dose: 100 mls/hr Sodium Chloride (Sodium Chloride 0.45%) 1,000 mls @ 100 mls/hr IV .Q10H ONE Stop: 01/18/18 19:38 Last Admin: 01/18/18 09:50 Dose: 100 mls/hr Insulin Aspart (Novolog) 0 unit SC Q6 [facility] PRN Reason: Protocol Last Admin: 01/18/18 18:24 Dose: Not Given Insulin Detemir (Levemir) 10 unit SC HS [facility] Last Admin: 01/17/18 21:37 Dose: 10 u Pantoprazole Sodium (Protonix Inj) 40 mg IVP DAILY [facility] Last Admin: 01/18/18 13:20 Dose: 40 mg Tamsulosin HCl (Flomax) 0.4 mg PO DAILY [facility] Last Admin: 01/18/18 10:00 Dose: Not Given - Labs Labs: 01/18/18 05:59 01/18/18 15:38 PT 14.0 SECONDS (9.7-12.2) H 01/13/18 17:42 INR 1.3 01/13/18 17:42 APTT 30 SECONDS (21-34) 01/13/18 17:42 - Constitutional Appears: Well - Head Exam Head Exam: ATRAUMATIC, NORMAL INSPECTION, NORMOCEPHALIC - Eye Exam Eye Exam: EOMI, Normal appearance, PERRL Pupil Exam: NORMAL ACCOMODATION, PERRL - ENT Exam ENT Exam: Mucous Membranes Moist, Normal Exam - Neck Exam Neck Exam: Full ROM, Normal Inspection. absent: Lymphadenopathy - Respiratory Exam Respiratory Exam: Decreased Breath Sounds - Cardiovascular Exam Cardiovascular Exam: REGULAR RHYTHM, +S1, +S2 - GI/Abdominal Exam GI & Abdominal Exam: Soft, Diminished Bowel Sounds - Rectal Exam Rectal Exam: Deferred Assessment and Plan (1) JOY (acute kidney injury) Status: Acute (2) Change in mental status Status: Acute (3) Electrolyte imbalance Status: Acute (4) MRSA (methicillin resistant Staphylococcus aureus) septicemia Status: Acute (5) NSTEMI (non-ST elevated myocardial infarction) Status: Acute (6) Prophylactic measure Status: Acute (7) UTI (urinary tract infection) Status: Acute (8) CHF (congestive heart failure) Status: Chronic (9) CKD (chronic kidney disease) Status: Chronic (10) Diabetes mellitus Status: Chronic (11) Afib Status: Acute (12) Anemia Status: Acute (13) Bilateral hydronephrosis Status: Acute (14) CKD (chronic kidney disease) stage 4, GFR 15-29 ml/min Status: Acute (15) Metabolic acidosis Status: Acute (16) Dementia Status: Chronic - Assessment and Plan (Free Text) Plan: Patient seen and examined bedside,no apparent acute distress. 1) CHF- cardiology consulted, help appreciated -sever LV hypokinesia, EF 15-20% 2) DM- ISS accuchecks 3) electrolte imbalance- Na- 157, and decreasing GI and DVT ppx
[2018-01-18] MEDS: Sodium Chloride 0.45% 1,000 ML IV SCH (21:13)
[2018-01-18] MEDS: Insulin Detemir 100 units/ml Vial (Levemir) SC SCH (21:19)
[2018-01-19] MEDS: (Novolog) Insulin Aspart, Recombinant 100 u/ml 10 ml vial SC SCH ×4 (00:18→17:37)
[2018-01-19 06:00] LABS: BASO # 0.1 K/uL (0.0-0.2); BASO % 0.5 % (0.0-2.0); EOS # 0.3 K/uL (0.0-0.7); HEMOGLOBIN 8.4 g/dL (12.0-18.0); LYMPH % 7.8 % (20.0-40.0); MEAN CELL VOLUME 86.5 fL (80.0-94.0); MEAN CORPUSCULAR HEMOGLOBIN 27.1 pg (27.0-31.0); MEAN CORPUSCULAR HGB CONC 31.3 g/dL (33.0-37.0); MEAN PLATELET VOLUME 8.6 fL (7.2-11.7); MONO # 0.6 K/uL (0.0-0.8); MONO % 4.6 % (0.0-10.0); NEUT # 10.6 K/uL (1.8-7.0); NEUT % 85.1 % (50.0-75.0); PLATELET COUNT 314 K/uL (130-400); RBC 3.09 Mil/uL (4.40-5.90); RED CELL DISTRIBUTION WIDTH 17.1 % (11.5-14.5); WHITE BLOOD COUNT 12.5 K/uL (4.8-10.8)
[2018-01-19 06:24] LABS: ALBUMIN 3.9 g/dL (3.5-5.0); CALCIUM 9.4 mg/dl (8.6-10.4)
[2018-01-19] MEDS: Sodium Chloride 0.45% 1,000 ML IV SCH ×2 (07:00→16:43)
[2018-01-19] MEDS ORDERED: Potassium Chloride 20 mEq/15 ml LIQ UD PO ONE (07:29)
--- NOTE | 2018-01-19 07:46 | CP.PCM.PN ---
<Paris Diamond - Last Filed: 01/19/18 15:56> Subjective - Date & Time of Evaluation Date of Evaluation: 01/19/18 Time of Evaluation: 09:22 - Subjective Subjective: Cardiology Progress Note- Dr. Thompson's service Patient seen and examined in no apparent acute distress. Patient remains drowsy but arousable per nursing staff. Patient not able to comply with ROS at the moment due to altered mentation. Objective - Vital Signs/Intake and Output Vital Signs (last 24 hours): Temp Pulse Resp BP Pulse Ox 98.5 F 58 L 11 L 120/52 L 98 01/19/18 04:00 01/19/18 07:00 01/19/18 07:00 01/19/18 06:59 01/19/18 07:00 Intake and Output: 01/19/18 01/19/18 06:59 18:59 Intake Total 1840 135 Output Total 2365 Balance -525 135 - Medications Medications: Current Medications Dextrose (Dextrose 50% Inj) 0 ml IV STAT PRN; Protocol PRN Reason: Hypoglycemia Protocol Dextrose (Glutose 15) 0 gm PO ONCE PRN; Protocol PRN Reason: Hypoglycemia Protocol Glucagon (Glucagen Diagnostic Kit) 0 mg IM STAT PRN; Protocol PRN Reason: Hypoglycemia Protocol Heparin Sodium (Porcine) (Heparin) 5,000 units SC Q12H [facility] Last Admin: 01/19/18 01:49 Dose: 5,000 units Dextrose (Dextrose 5% In Water 1000 Ml) 1,000 mls @ 0 mls/hr IV .Q0M PRN; Protocol; Per Protocol PRN Reason: Hypoglycemia Protocol Daptomycin 400 mg/ Sodium (Chloride) 100 mls @ 100 mls/hr IV Q48H [facility] PRN Reason: Protocol Stop: 01/19/18 23:01 Last Admin: 01/18/18 22:16 Dose: 100 mls/hr Sodium Chloride (Sodium Chloride 0.45%) 1,000 mls @ 100 mls/hr IV .Q10H [facility] Last Admin: 01/19/18 07:00 Dose: 100 mls/hr Insulin Aspart (Novolog) 0 unit SC Q6 [facility] PRN Reason: Protocol Last Admin: 01/19/18 06:57 Dose: Not Given Insulin Detemir (Levemir) 10 unit SC [facility] Last Admin: 01/18/18 21:19 Dose: 10 u Pantoprazole Sodium (Protonix Inj) 40 mg IVP DAILY [facility] Last Admin: 01/18/18 13:20 Dose: 40 mg Tamsulosin HCl (Flomax) 0.4 mg PO DAILY [facility] Last Admin: 01/18/18 10:00 Dose: Not Given - Labs Labs: 01/19/18 05:54 01/19/18 05:54 PT 14.0 SECONDS (9.7-12.2) H 01/13/18 17:42 INR 1.3 01/13/18 17:42 APTT 30 SECONDS (21-34) 01/13/18 17:42 - Constitutional Appears: Non-toxic, Confused, Chronically Ill - Head Exam Head Exam: ATRAUMATIC - Eye Exam Eye Exam: PERRL - ENT Exam ENT Exam: Mucous Membranes Moist - Respiratory Exam Respiratory Exam: NORMAL BREATHING PATTERN - Cardiovascular Exam Cardiovascular Exam: +S1, +S2. absent: JVD - GI/Abdominal Exam GI & Abdominal Exam: Soft, Normal Bowel Sounds - Neurological Exam Neurological Exam: Altered - Skin Skin Exam: Dry, Warm Assessment and Plan (1) CHF (congestive heart failure) Status: Chronic (2) Diabetes mellitus Status: Chronic (3) Electrolyte imbalance Status: Acute (4) Dementia Status: Chronic (5) Prophylactic measure Status: Acute - Assessment and Plan (Free Text) Assessment: Bacteremia Assessment & Plan: MRSA positive blood/urine cultures On antibiotic therapy ID on the case. Status: Chronic CHF (congestive heart failure) Assessment & Plan: EF approx 15-20% with noted severe LV global hypokinesia. Diastolic dysfunction cannot be determined. Moderately reduced systolic function. Refer to complete report. Will review whether patient has had a LifeVest before. Will have to follow up with long term or patient's family members for more information. Will medically optimize in light of chronic illness. Has been hypotensive- closely monitor BP at this time - Recommendations to continue treating underlying infection. Continue Status: Chronic Diabetes mellitus Assessment & Plan: On ISS Accuchecks Continued management Status: Chronic Electrolyte imbalance Assessment & Plan: Replete as needed Status: Acute Dementia Assessment & Plan: May need some form of maintenance therapy. Continued management per primary Status: Chronic Prophylactic measure Assessment & Plan: PPI 40 mg IV daily SCDs Heparin 5,000 SC Q12 Status: Acute <Real Thompson - Last Filed: 01/19/18 22:00> Objective - Vital Signs/Intake and Output Vital Signs (last 24 hours): Temp Pulse Resp BP Pulse Ox 99.9 F H 73 14 104/41 L 97 01/19/18 20:00 01/19/18 20:00 01/19/18 20:00 01/19/18 19:58 01/19/18 20:00 Intake and Output: 01/19/18 01/20/18 18:59 06:59 Intake Total 1820 270 Output Total 815 25 Balance 1005 245 - Medications Medications: Current Medications Dextrose (Dextrose 50% Inj) 0 ml IV STAT PRN; Protocol PRN Reason: Hypoglycemia Protocol Dextrose (Glutose 15) 0 gm PO ONCE PRN; Protocol PRN Reason: Hypoglycemia Protocol Glucagon (Glucagen Diagnostic Kit) 0 mg IM STAT PRN; Protocol PRN Reason: Hypoglycemia Protocol Heparin Sodium (Porcine) (Heparin) 5,000 units SC Q12 [facility] Last Admin: 01/19/18 21:13 Dose: 5,000 units Sodium Chloride (Sodium Chloride 0.45%) 1,000 mls @ 100 mls/hr IV .Q10H [facility] Last Admin: 01/19/18 16:43 Dose: 100 mls/hr Daptomycin 400 mg/ Sodium (Chloride) 100 mls @ 100 mls/hr IV Q24H [facility] PRN Reason: Protocol Stop: 01/24/18 21:01 Last Admin: 01/19/18 21:00 Dose: 100 mls/hr Insulin Aspart (Novolog) 0 unit SC Q6 [facility] PRN Reason: Protocol Last Admin: 01/19/18 17:37 Dose: 1 u Insulin Detemir (Levemir) 10 unit SC HS [facility] Last Admin: 01/19/18 21:13 Dose: 10 u Pantoprazole Sodium (Protonix Inj) 40 mg IVP DAILY [facility] Last Admin: 01/19/18 09:57 Dose: 40 mg Tamsulosin HCl (Flomax) 0.4 mg PO DAILY [facility] Last Admin: 01/19/18 09:57 Dose: 0.4 mg - Labs Labs: 01/19/18 05:54 01/19/18 05:54 PT 14.0 SECONDS (9.7-12.2) H 01/13/18 17:42 INR 1.3 01/13/18 17:42 APTT 30 SECONDS (21-34) 01/13/18 17:42 Assessment and Plan - Assessment and Plan (Free Text) Assessment: Patient seen and evaluated personally by me. Plan of care d/w the medical coding instructor and as documented
[2018-01-19 08:28] LABS: ANISOCYTOSIS SLIGHT; EOSINOPHIL 1 % (0-4); HYPOCHROMIC SLIGHT; LYMPHOCYTE 8 % (20-40); MONOCYTE 3 % (0-10); NEUTROPHIL 88 % (50-75); PLATELET ESTIMATE NORMAL (NORMAL); POIKILOCYTOSIS SLIGHT; TOTAL CELLS COUNTED 100
[2018-01-19 08:29] LABS: LARGE PLATELETS PRESENT; OVALOCYTES SLIGHT; TARGET CELLS SLIGHT
--- NOTE | 2018-01-19 10:36 | CP.CCUPN ---
<Gary Rajan - Last Filed: 01/19/18 17:09> CCU Subjective - Physician Review Subjective (Free Text): 01/14/18 13:08 ICU Progress note Patient seen and examined at bedside. Patient is unable to provide history and does not respond to questions. Patient's eyes are open however he does not respond to commands. CCU Objective - Vital Signs / Intake & Output Vital Signs (Last 4 hours): Vital Signs Temp Pulse Resp BP Pulse Ox 01/19/18 10:33 99 01/19/18 08:00 98.3 F 54 L 28 H 121/55 L 96 01/19/18 07:00 58 L 11 L 98 01/19/18 06:59 66 27 H 120/52 L 97 Intake and Output (Last 8hrs): Intake & Output 01/18/18 01/19/18 01/19/18 22:59 06:59 14:59 Intake Total 1050 1190 270 Output Total 975 1830 Balance 75 -640 270 Weight 164 lb Intake: Intake, IV Amount 800 800 200 Left Hand 800 800 200 Oral 0 Tube Feeding 50 190 70 Other 200 200 Output: Urine 975 330 Urethral (Mendes) 975 330 Stool 1500 - Physical Exam Head: Positive for: Atraumatic, Normocephalic Pupils: Positive for: PERRL. Negative for: Sluggish, Non-Reactive Extroacular Muscles: Negative for: EOMI (not following commands for EOMI testing ) Conjunctiva: Positive for: Normal. Negative for: Injected, Icteric Mouth: Positive for: Moist Mucous Membranes. Negative for: Drooling Nose (External): Positive for: Atraumatic. Negative for: Abrasion, Contusion, Laceration Nose (Internal): Positive for: No Active Bleeding. Negative for: Epistaxis Neck: Negative for: JVD Respiratory/Chest: Positive for: Clear to Auscultation, Other (no notable rales/ wheezes/ronchi). Negative for: Respiratory Distress, Accessory Muscle Use, Wheezes, Rales, Rhonchi Cardiovascular: Positive for: Normal S1, S2, Peripheal Pulses Present (+2 dorsalis pedis and radials bilaterally). Negative for: Irregular Rhythm, Bradycardic Abdomen: Positive for: Normal Bowel Sounds, Other (ostomy bag at RLQ, ostomy appears pink/patent, no surrounding erythema). Negative for: Distention Upper Extremity: Positive for: NORMAL PULSES. Negative for: Cyanosis, Edema, Swelling, Erythema, Deformity Lower Extremity: Positive for: Normal Inspection, NORMAL PULSES. Negative for: Edema, CALF TENDERNESS, Cyanosis, Swelling, Erythema, Deformity Neurological: Positive for: Motor Func Grossly Intact (not following commands. ) . Negative for: GCS=15 (GCS 9 ([id number])) Skin: Positive for: Warm, Dry Psychiatric: Positive for: Other (Unable to determine since patient is not speaking) - Medications Active Medications: Active Medications Generic Name Dose Route Start Last Admin Trade Name Freq PRN Reason Stop Dose Admin Dextrose 0 ml 01/14/18 15:10 Dextrose 50% Inj IV STAT PRN Hypoglycemia Protocol Protocol Dextrose 0 gm 01/14/18 15:10 Glutose 15 PO ONCE PRN Hypoglycemia Protocol Protocol Glucagon 0 mg 01/14/18 15:10 Glucagen Diagnostic Kit IM STAT PRN Hypoglycemia Protocol Protocol Heparin Sodium (Porcine) 5,000 units 01/14/18 01:45 01/19/18 01:49 Heparin SC 5,000 units Q12H NEL Administration Dextrose 1,000 mls @ 0 mls/hr 01/14/18 15:10 Dextrose 5% In Water 1000 Ml IV .Q0M PRN Hypoglycemia Protocol Protocol Per Protocol Daptomycin 400 mg/ Sodium 100 mls @ 100 mls/hr 01/14/18 23:00 01/18/18 22:16 Chloride IV 01/19/18 23:01 100 mls/hr Q48H NEL Administration Protocol Sodium Chloride 1,000 mls @ 100 mls/hr 01/18/18 21:15 01/19/18 07:00 Sodium Chloride 0.45% IV 100 mls/hr .Q10H NEL Administration Potassium Chloride 20 meq in 100 mls @ 50 mls/hr 01/19/18 10:00 01/19/18 10: 03 Potassium Chloride 20 Meq/100 Ml IVPB 01/19/18 13:59 50 mls/hr Q2 NEL Administration Insulin Aspart 0 unit 01/14/18 06:00 01/19/18 06:57 Novolog SC Not Given Q6 NEL Protocol Insulin Detemir 10 unit 01/14/18 22:00 01/18/18 21:19 Levemir SC 10 u HS NEL Administration Pantoprazole Sodium 40 mg 01/18/18 10:00 01/19/18 09:57 Protonix Inj IVP 40 mg DAILY NEL Administration Tamsulosin HCl 0.4 mg 01/14/18 10:00 01/19/18 09:57 Flomax PO 0.4 mg DAILY NEL Administration - Patient Studies Lab Studies: Microbiology Studies 01/18/18 05:00 Blood Culture - Preliminary Blood-Venous NO GROWTH AFTER 24 HOURS 01/18/18 04:30 Blood Culture - Preliminary Blood-Venous NO GROWTH AFTER 24 HOURS Lab Studies 01/19/18 01/19/18 01/19/18 Range/Units 05:54 05:54 05:45 WBC 12.5 H (4.8-10.8) K/uL RBC 3.09 L (4.40-5.90) Mil/uL Hgb 8.4 L (12.0-18.0) g/dL Hct 26.7 L (35.0-51.0) % MCV 86.5 (80.0-94.0) fL MCH 27.1 (27.0-31.0) pg MCHC 31.3 L (33.0-37.0) g/dL RDW 17.1 H (11.5-14.5) % Plt Count 314 (130-400) K/uL MPV 8.6 (7.2-11.7) fL Neut % (Auto) 85.1 H (50.0-75.0) % Lymph % (Auto) 7.8 L (20.0-40.0) % [place] % (Auto) 4.6 (0.0-10.0) % Eos % (Auto) 2.0 (0.0-4.0) % Baso % (Auto) 0.5 (0.0-2.0) % Neut # (Auto) 10.6 H (1.8-7.0) K/uL Lymph # (Auto) 1.0 (1.0-4.3) K/uL [place] # (Auto) 0.6 (0.0-0.8) K/uL Eos # (Auto) 0.3 (0.0-0.7) K/uL Baso # (Auto) 0.1 (0.0-0.2) K/uL Neutrophils % (Manual) 88 H (50-75) % Lymphocytes % (Manual) 8 L (20-40) % Monocytes % (Manual) 3 (0-10) % Eosinophils % (Manual) 1 (0-4) % Platelet Estimate Normal (NORMAL) Large Platelets Present Hypochromasia (manual) Slight Poikilocytosis (manual Slight Anisocytosis (manual) Slight Target Cells Slight Ovalocytes Slight Sodium 154 H (132-148) mmol/L Potassium 3.1 L (3.6-5.2) mmol/L Chloride 113 H (98-107) mmol/L Carbon Dioxide 28 (22-30) mmol/L Anion Gap 17 (10-20) BUN 45 H (9-20) mg/dL Creatinine 1.7 H (0.8-1.5) mg/dL Est GFR ( Amer) 48 Est GFR (Non-Af Amer) 40 POC Glucose (mg/dL) 121 H (65-110) mg/dL Random Glucose 129 H (75-110) mg/dL Calcium 9.4 (8.6-10.4) mg/dl Phosphorus 2.0 L (2.5-4.5) mg/dL Magnesium 2.0 (1.6-2.3) mg/dL Total Bilirubin 0.9 (0.2-1.3) mg/dL AST 59 D (17-59) U/L ALT 40 (21-72) U/L Alkaline Phosphatase 160 H (38-126) U/L Total Protein 7.9 (6.3-8.3) g/dL Albumin 3.9 (3.5-5.0) g/dL Globulin 4.0 H (2.2-3.9) gm/dL Albumin/Globulin Ratio 1.0 (1.0-2.1) 01/18/18 01/18/18 01/18/18 Range/Units 17:32 15:38 11:52 WBC (4.8-10.8) K/uL RBC (4.40-5.90) Mil/uL Hgb (12.0-18.0) g/dL Hct (35.0-51.0) % MCV (80.0-94.0) fL MCH (27.0-31.0) pg MCHC (33.0-37.0) g/dL RDW (11.5-14.5) % Plt Count (130-400) K/uL MPV (7.2-11.7) fL Neut % (Auto) (50.0-75.0) % Lymph % (Auto) (20.0-40.0) % [place] % (Auto) (0.0-10.0) % Eos % (Auto) (0.0-4.0) % Baso % (Auto) (0.0-2.0) % Neut # (Auto) (1.8-7.0) K/uL Lymph # (Auto) (1.0-4.3) K/uL [place] # (Auto) (0.0-0.8) K/uL Eos # (Auto) (0.0-0.7) K/uL Baso # (Auto) (0.0-0.2) K/uL Neutrophils % (Manual) (50-75) % Lymphocytes % (Manual) (20-40) % Monocytes % (Manual) (0-10) % Eosinophils % (Manual) (0-4) % Platelet Estimate (NORMAL) Large Platelets Hypochromasia (manual) Poikilocytosis (manual Anisocytosis (manual) Target Cells Ovalocytes Sodium 157 H (132-148) mmol/L Potassium 3.7 (3.6-5.2) mmol/L Chloride 113 H (98-107) mmol/L Carbon Dioxide 31 H (22-30) mmol/L Anion Gap 17 (10-20) BUN 46 H (9-20) mg/dL Creatinine 1.9 H (0.8-1.5) mg/dL Est GFR ( Amer) 42 Est GFR (Non-Af Amer) 35 POC Glucose (mg/dL) 133 H 133 H (65-110) mg/dL Random Glucose 135 H (75-110) mg/dL Calcium 9.3 (8.6-10.4) mg/dl Phosphorus (2.5-4.5) mg/dL Magnesium (1.6-2.3) mg/dL Total Bilirubin (0.2-1.3) mg/dL AST (17-59) U/L ALT (21-72) U/L Alkaline Phosphatase (38-126) U/L Total Protein (6.3-8.3) g/dL Albumin (3.5-5.0) g/dL Globulin (2.2-3.9) gm/dL Albumin/Globulin Ratio (1.0-2.1) Laboratory Results - last 24 hr 01/18/18 01/18/18 01/18/18 11:52 15:38 17:32 WBC RBC Hgb Hct MCV MCH MCHC RDW Plt Count MPV Neut % (Auto) Lymph % (Auto) [place] % (Auto) Eos % (Auto) Baso % (Auto) Neut # (Auto) Lymph # (Auto) [place] # (Auto) Eos # (Auto) Baso # (Auto) Neutrophils % (Manual) Lymphocytes % (Manual) Monocytes % (Manual) Eosinophils % (Manual) Platelet Estimate Large Platelets Hypochromasia (manual) Poikilocytosis (manual Anisocytosis (manual) Target Cells Ovalocytes Sodium 157 H Potassium 3.7 Chloride 113 H Carbon Dioxide 31 H Anion Gap 17 BUN 46 H Creatinine 1.9 H Est GFR ( Amer) 42 Est GFR (Non-Af Amer) 35 POC Glucose (mg/dL) 133 H 133 H Random Glucose 135 H Calcium 9.3 Phosphorus Magnesium Total Bilirubin AST ALT Alkaline Phosphatase Total Protein Albumin Globulin Albumin/Globulin Ratio 01/19/18 01/19/18 01/19/18 05:45 05:54 05:54 WBC 12.5 H RBC 3.09 L Hgb 8.4 L Hct 26.7 L MCV 86.5 MCH 27.1 MCHC 31.3 L RDW 17.1 H Plt Count 314 MPV 8.6 Neut % (Auto) 85.1 H Lymph % (Auto) 7.8 L [place] % (Auto) 4.6 Eos % (Auto) 2.0 Baso % (Auto) 0.5 Neut # (Auto) 10.6 H Lymph # (Auto) 1.0 [place] # (Auto) 0.6 Eos # (Auto) 0.3 Baso # (Auto) 0.1 Neutrophils % (Manual) 88 H Lymphocytes % (Manual) 8 L Monocytes % (Manual) 3 Eosinophils % (Manual) 1 Platelet Estimate Normal Large Platelets Present Hypochromasia (manual) Slight Poikilocytosis (manual Slight Anisocytosis (manual) Slight Target Cells Slight Ovalocytes Slight Sodium 154 H Potassium 3.1 L Chloride 113 H Carbon Dioxide 28 Anion Gap 17 BUN 45 H Creatinine 1.7 H Est GFR ( Amer) 48 Est GFR (Non-Af Amer) 40 POC Glucose (mg/dL) 121 H Random Glucose 129 H Calcium 9.4 Phosphorus 2.0 L Magnesium 2.0 Total Bilirubin 0.9 AST 59 D ALT 40 Alkaline Phosphatase 160 H Total Protein 7.9 Albumin 3.9 Globulin 4.0 H Albumin/Globulin Ratio 1.0 Fingerstick Blood Sugar Results: 121 Review of Systems - Review of Systems Systems not reviewed;Unavailable: Altered Mental Status Critical Care Progress Note - Nutrition Nutrition: Nutrition Category Date Time Status NPO Diet [DIET] Diets 01/14/18 Breakfast Active Assessment/Plan - Assessment and Plan (Free Text) Assessment: 72 year old male with history of dementia, DM, BPH and CKD who was sent in from care home after he was found altered after he had been refusing to eat. Patient is altered and unable to provide history. Patient was found to be hyperkalemic, and in acute kidney injury with abnormal Cr and BUN. ICU consulted for management of significant electrolyte imbalances. JOY is improving, but electrolyte abnormalities persist. Plan: Neuro: -Altered mental status -Head CT: No acute intracranial pathology. Age-related changes. No significant interval change. -Keep NPO until mental status improves -U Tox: negative -Valproic acid <10.0 Cardiovascular: -Chronic systolic heart failure, admission proBNP 8010 -Troponin 0.0730 -->0.0710 -->0.0550 -Echo notable for EF 15-20%, indeterminate diastolic function, severe LV global hypokinesia, moderately reduced RV systolic fxn, LA mildly dilated, mild MR/TR -HR currently in 50s -Strict I's and O's -Cardiology Dr. Thompson consulted, help appreciated Pulmonary: -Currently on RA, saturating well. -CXR: no acute disease GI: -Protonix 40mg Q12 IV -Abd US: Limited study; Increased echogenicity of the hepatic parenchymal cortex suggestive for fatty infiltration versus hepatic parenchymal disease; top normal wall thickness of the gallbladder measuring 3 millimeters; mildly ectatic and prominent distal abdominal aorta measuring up to 2.9 centimeters; bilateral renal cysts -Stool occult negative for blood -CT chest abd/pelvis There is marked wall thickening of the urinary bladder with intraluminal urinary bladder air in part due to the presence of an in situ unclamped Mendes catheter however the possibility of a UTI must be considered. There is also on dense appearance of the urothelium in both renal pelves and proximal ureters also suggesting UTI. Clinical correlation with urinalysis recommended. . Bibasilar atelectasis right greater than left. Rule out developing infiltrate. Cardiomegaly. See above discussion for additional details and findings. Right lower quadrant ostomy. Clinical correlation with surgical history recommended Renal: -Acute kidney injury on CKD, improving currently -BUN 219 on admission, 45 today -Cr 10.7 on admission, 1.7 today -Serum osmolarity 410, Urine osmolality 475 -Ur random Cr 94 Urine Na 64 urine urea nitrogen 476 -Initial Na 156, K 8 --> today: Na 154, K 3.1; K repleted -Continue 1/2 NS IV fluids ID -WBCs 12.5 -ID (Dr. Barnett) consulted, help appreciated -switched to Daptomycin QOD, continue -Blood cx x2 positive for MRSA, 1x blood cx also positive for E faecalis, urine culture positive for MRSA > 100k CFUs -UA: 3+ LE 3+ blood 2+ protein -VBG lactate 1.3 --> 2.0 (on 01/13), serum lactate 1.8 (on 01/14) Heme -Hb currently stable at 8.4/Hct 26.7 -no signs of acute bleeding and stool occult negative Endo -continue Levemir 10unit SC HS, continue accuchecks PPX: Heparin 5000 unit SC Q12, Protonix 40mg IV Case discussed with Dr. Stern <Elder Stern - Last Filed: 01/19/18 18:00> CCU Subjective - Physician Review Critical Care Time Spent (in minutes): 30 CCU Objective - Vital Signs / Intake & Output Vital Signs (Last 4 hours): Vital Signs Temp Pulse Resp BP Pulse Ox 01/19/18 17:00 60 17 121/57 L 97 01/19/18 16:00 97.9 F 65 13 126/50 L 96 01/19/18 15:00 61 23 99/48 L 96 01/19/18 14:00 66 19 119/58 L 96 Intake and Output (Last 8hrs): Intake & Output 01/19/18 01/19/18 01/19/18 06:59 14:59 22:59 Intake Total 1190 1080 570 Output Total 1830 205 80 Balance -640 875 490 Weight 164 lb Intake: Intake, IV Amount 800 800 300 Left Hand 800 800 300 Tube Feeding 190 280 70 Other 200 200 Output: Urine 330 205 80 Urethral (Mendes) 330 205 80 Stool 1500 - Medications Active Medications: Active Medications Generic Name Dose Route Start Last Admin Trade Name Freq PRN Reason Stop Dose Admin Dextrose 0 ml 01/14/18 15:10 Dextrose 50% Inj IV STAT PRN Hypoglycemia Protocol Protocol Dextrose 0 gm 01/14/18 15:10 Glutose 15 PO ONCE PRN Hypoglycemia Protocol Protocol Glucagon 0 mg 01/14/18 15:10 Glucagen Diagnostic Kit IM STAT PRN Hypoglycemia Protocol Protocol Heparin Sodium (Porcine) 5,000 units 01/19/18 13:30 01/19/18 14:24 Heparin SC 5,000 units Q12 NEL Administration Dextrose 1,000 mls @ 0 mls/hr 01/14/18 15:10 Dextrose 5% In Water 1000 Ml IV .Q0M PRN Hypoglycemia Protocol Protocol Per Protocol Daptomycin 400 mg/ Sodium 100 mls @ 100 mls/hr 01/14/18 23:00 01/18/18 22:16 Chloride IV 01/19/18 23:01 100 mls/hr Q48H NEL Administration Protocol Sodium Chloride 1,000 mls @ 100 mls/hr 01/18/18 21:15 01/19/18 16:43 Sodium Chloride 0.45% IV 100 mls/hr .Q10H NEL Administration Insulin Aspart 0 unit 01/14/18 06:00 01/19/18 17:37 Novolog SC 1 u Q6 NEL Administration Protocol Insulin Detemir 10 unit 01/14/18 22:00 01/18/18 21:19 Levemir SC 10 u HS NEL Administration Pantoprazole Sodium 40 mg 01/18/18 10:00 01/19/18 09:57 Protonix Inj IVP 40 mg DAILY NEL Administration Tamsulosin HCl 0.4 mg 01/14/18 10:00 01/19/18 09:57 Flomax PO 0.4 mg DAILY NEL Administration - Patient Studies Lab Studies: Microbiology Studies 01/18/18 04:30 S.aureus & Coag-Neg Staph PNA FISH - Final Blood-Venous TEST NOT PERFORMED Blood Culture - Preliminary Gram Positive Cocci Gram Stain - Final 01/18/18 05:00 Blood Culture - Preliminary Blood-Venous NO GROWTH AFTER 24 HOURS Lab Studies 01/19/18 01/19/18 01/19/18 Range/Units 12:24 05:54 05:54 WBC 12.5 H (4.8-10.8) K/uL RBC 3.09 L (4.40-5.90) Mil/uL Hgb 8.4 L (12.0-18.0) g/dL Hct 26.7 L (35.0-51.0) % MCV 86.5 (80.0-94.0) fL MCH 27.1 (27.0-31.0) pg MCHC 31.3 L (33.0-37.0) g/dL RDW 17.1 H (11.5-14.5) % Plt Count 314 (130-400) K/uL MPV 8.6 (7.2-11.7) fL Neut % (Auto) 85.1 H (50.0-75.0) % Lymph % (Auto) 7.8 L (20.0-40.0) % [place] % (Auto) 4.6 (0.0-10.0) % Eos % (Auto) 2.0 (0.0-4.0) % Baso % (Auto) 0.5 (0.0-2.0) % Neut # (Auto) 10.6 H (1.8-7.0) K/uL Lymph # (Auto) 1.0 (1.0-4.3) K/uL [place] # (Auto) 0.6 (0.0-0.8) K/uL Eos # (Auto) 0.3 (0.0-0.7) K/uL Baso # (Auto) 0.1 (0.0-0.2) K/uL Neutrophils % (Manual) 88 H (50-75) % Lymphocytes % (Manual) 8 L (20-40) % Monocytes % (Manual) 3 (0-10) % Eosinophils % (Manual) 1 (0-4) % Platelet Estimate Normal (NORMAL) Large Platelets Present Hypochromasia (manual) Slight Poikilocytosis (manual Slight Anisocytosis (manual) Slight Target Cells Slight Ovalocytes Slight Sodium 154 H (132-148) mmol/L Potassium 3.1 L (3.6-5.2) mmol/L Chloride 113 H (98-107) mmol/L Carbon Dioxide 28 (22-30) mmol/L Anion Gap 17 (10-20) BUN 45 H (9-20) mg/dL Creatinine 1.7 H (0.8-1.5) mg/dL Est GFR ( Amer) 48 Est GFR (Non-Af Amer) 40 POC Glucose (mg/dL) 183 H (65-110) mg/dL Random Glucose 129 H (75-110) mg/dL Calcium 9.4 (8.6-10.4) mg/dl Phosphorus 2.0 L (2.5-4.5) mg/dL Magnesium 2.0 (1.6-2.3) mg/dL Total Bilirubin 0.9 (0.2-1.3) mg/dL AST 59 D (17-59) U/L ALT 40 (21-72) U/L Alkaline Phosphatase 160 H (38-126) U/L Total Protein 7.9 (6.3-8.3) g/dL Albumin 3.9 (3.5-5.0) g/dL Globulin 4.0 H (2.2-3.9) gm/dL Albumin/Globulin Ratio 1.0 (1.0-2.1) 01/19/18 Range/Units 05:45 WBC (4.8-10.8) K/uL RBC (4.40-5.90) Mil/uL Hgb (12.0-18.0) g/dL Hct (35.0-51.0) % MCV (80.0-94.0) fL MCH (27.0-31.0) pg MCHC (33.0-37.0) g/dL RDW (11.5-14.5) % Plt Count (130-400) K/uL MPV (7.2-11.7) fL Neut % (Auto) (50.0-75.0) % Lymph % (Auto) (20.0-40.0) % [place] % (Auto) (0.0-10.0) % Eos % (Auto) (0.0-4.0) % Baso % (Auto) (0.0-2.0) % Neut # (Auto) (1.8-7.0) K/uL Lymph # (Auto) (1.0-4.3) K/uL [place] # (Auto) (0.0-0.8) K/uL Eos # (Auto) (0.0-0.7) K/uL Baso # (Auto) (0.0-0.2) K/uL Neutrophils % (Manual) (50-75) % Lymphocytes % (Manual) (20-40) % Monocytes % (Manual) (0-10) % Eosinophils % (Manual) (0-4) % Platelet Estimate (NORMAL) Large Platelets Hypochromasia (manual) Poikilocytosis (manual Anisocytosis (manual) Target Cells Ovalocytes Sodium (132-148) mmol/L Potassium (3.6-5.2) mmol/L Chloride (98-107) mmol/L Carbon Dioxide (22-30) mmol/L Anion Gap (10-20) BUN (9-20) mg/dL Creatinine (0.8-1.5) mg/dL Est GFR ( Amer) Est GFR (Non-Af Amer) POC Glucose (mg/dL) 121 H (65-110) mg/dL Random Glucose (75-110) mg/dL Calcium (8.6-10.4) mg/dl Phosphorus (2.5-4.5) mg/dL Magnesium (1.6-2.3) mg/dL Total Bilirubin (0.2-1.3) mg/dL AST (17-59) U/L ALT (21-72) U/L Alkaline Phosphatase (38-126) U/L Total Protein (6.3-8.3) g/dL Albumin (3.5-5.0) g/dL Globulin (2.2-3.9) gm/dL Albumin/Globulin Ratio (1.0-2.1) Laboratory Results - last 24 hr 01/19/18 01/19/18 01/19/18 05:45 05:54 05:54 WBC 12.5 H RBC 3.09 L Hgb 8.4 L Hct 26.7 L MCV 86.5 MCH 27.1 MCHC 31.3 L RDW 17.1 H Plt Count 314 MPV 8.6 Neut % (Auto) 85.1 H Lymph % (Auto) 7.8 L [place] % (Auto) 4.6 Eos % (Auto) 2.0 Baso % (Auto) 0.5 Neut # (Auto) 10.6 H Lymph # (Auto) 1.0 [place] # (Auto) 0.6 Eos # (Auto) 0.3 Baso # (Auto) 0.1 Neutrophils % (Manual) 88 H Lymphocytes % (Manual) 8 L Monocytes % (Manual) 3 Eosinophils % (Manual) 1 Platelet Estimate Normal Large Platelets Present Hypochromasia (manual) Slight Poikilocytosis (manual Slight Anisocytosis (manual) Slight Target Cells Slight Ovalocytes Slight Sodium 154 H Potassium 3.1 L Chloride 113 H Carbon Dioxide 28 Anion Gap 17 BUN 45 H Creatinine 1.7 H Est GFR ( Amer) 48 Est GFR (Non-Af Amer) 40 POC Glucose (mg/dL) 121 H Random Glucose 129 H Calcium 9.4 Phosphorus 2.0 L Magnesium 2.0 Total Bilirubin 0.9 AST 59 D ALT 40 Alkaline Phosphatase 160 H Total Protein 7.9 Albumin 3.9 Globulin 4.0 H Albumin/Globulin Ratio 1.0 01/19/18 12:24 WBC RBC Hgb Hct MCV MCH MCHC RDW Plt Count MPV Neut % (Auto) Lymph % (Auto) [place] % (Auto) Eos % (Auto) Baso % (Auto) Neut # (Auto) Lymph # (Auto) [place] # (Auto) Eos # (Auto) Baso # (Auto) Neutrophils % (Manual) Lymphocytes % (Manual) Monocytes % (Manual) Eosinophils % (Manual) Platelet Estimate Large Platelets Hypochromasia (manual) Poikilocytosis (manual Anisocytosis (manual) Target Cells Ovalocytes Sodium Potassium Chloride Carbon Dioxide Anion Gap BUN Creatinine Est GFR ( Amer) Est GFR (Non-Af Amer) POC Glucose (mg/dL) 183 H Random Glucose Calcium Phosphorus Magnesium Total Bilirubin AST ALT Alkaline Phosphatase Total Protein Albumin Globulin Albumin/Globulin Ratio Critical Care Progress Note - Nutrition Nutrition: Nutrition Category Date Time Status NPO Diet [DIET] Diets 01/14/18 Breakfast Active Attending/Attestation - Attestation I have personally seen and examined this patient.: Yes I have fully participated in the care of the patient.: Yes I have reviewed all pertinent clinical information: Yes Notes (Text): 01/19/18 17:58 Patient seen and examined in the intensive care unit. Continue present treatment for now Improving renal function and sodium Possible transfer to floor
--- NOTE | 2018-01-19 19:47 | CP.PCM.PN ---
Subjective - Date & Time of Evaluation Date of Evaluation: 01/19/18 Time of Evaluation: 12:15 - Subjective Subjective: dictated Objective - Vital Signs/Intake and Output Vital Signs (last 24 hours): Temp Pulse Resp BP Pulse Ox 97.9 F 62 18 121/55 L 99 01/19/18 16:00 01/19/18 19:00 01/19/18 19:00 01/19/18 19:00 01/19/18 19:00 Intake and Output: 01/19/18 01/20/18 18:59 06:59 Intake Total 1820 135 Output Total 815 Balance 1005 135 - Medications Medications: Current Medications Dextrose (Dextrose 50% Inj) 0 ml IV STAT PRN; Protocol PRN Reason: Hypoglycemia Protocol Dextrose (Glutose 15) 0 gm PO ONCE PRN; Protocol PRN Reason: Hypoglycemia Protocol Glucagon (Glucagen Diagnostic Kit) 0 mg IM STAT PRN; Protocol PRN Reason: Hypoglycemia Protocol Heparin Sodium (Porcine) (Heparin) 5,000 units SC Q12 [facility] Last Admin: 01/19/18 14:24 Dose: 5,000 units Daptomycin 400 mg/ Sodium (Chloride) 100 mls @ 100 mls/hr IV Q48H NEL PRN Reason: Protocol Stop: 01/19/18 23:01 Last Admin: 01/18/18 22:16 Dose: 100 mls/hr Sodium Chloride (Sodium Chloride 0.45%) 1,000 mls @ 100 mls/hr IV .Q10H [facility] Last Admin: 01/19/18 16:43 Dose: 100 mls/hr Potassium Chloride (Potassium Chloride 20 Meq/100 Ml) 20 meq in 100 mls @ 50 mls/hr IVPB ONCE ONE Stop: 01/19/18 21:29 Insulin Aspart (Novolog) 0 unit SC Q6 NEL PRN Reason: Protocol Last Admin: 01/19/18 17:37 Dose: 1 u Insulin Detemir (Levemir) 10 unit SC HS [facility] Last Admin: 01/18/18 21:19 Dose: 10 u Pantoprazole Sodium (Protonix Inj) 40 mg IVP DAILY [facility] Last Admin: 01/19/18 09:57 Dose: 40 mg Tamsulosin HCl (Flomax) 0.4 mg PO DAILY [facility] Last Admin: 01/19/18 09:57 Dose: 0.4 mg - Labs Labs: 01/19/18 05:54 09/05/18 05:54 PT 14.0 SECONDS (9.7-12.2) H 01/13/18 17:42 INR 1.3 01/13/18 17:42 APTT 30 SECONDS (21-34) 01/13/18 17:42
[2018-01-19] MEDS: Insulin Detemir 100 units/ml Vial (Levemir) SC SCH (21:13)
--- NOTE | 2018-01-19 21:58 | CP.PCM.PN ---
Subjective - Date & Time of Evaluation Date of Evaluation: 01/19/18 Time of Evaluation: 12:45 - Subjective Subjective: clinically same Objective - Vital Signs/Intake and Output Vital Signs (last 24 hours): Temp Pulse Resp BP Pulse Ox 99.9 F H 73 14 104/41 L 97 01/19/18 20:00 01/19/18 20:00 01/19/18 20:00 01/19/18 19:58 01/19/18 20:00 Intake and Output: 01/19/18 01/20/18 18:59 06:59 Intake Total 1820 270 Output Total 815 25 Balance 1005 245 - Medications Medications: Current Medications Dextrose (Dextrose 50% Inj) 0 ml IV STAT PRN; Protocol PRN Reason: Hypoglycemia Protocol Dextrose (Glutose 15) 0 gm PO ONCE PRN; Protocol PRN Reason: Hypoglycemia Protocol Glucagon (Glucagen Diagnostic Kit) 0 mg IM STAT PRN; Protocol PRN Reason: Hypoglycemia Protocol Heparin Sodium (Porcine) (Heparin) 5,000 units SC Q12 [facility] Last Admin: 01/19/18 21:13 Dose: 5,000 units Sodium Chloride (Sodium Chloride 0.45%) 1,000 mls @ 100 mls/hr IV .Q10H [facility] Last Admin: 01/19/18 16:43 Dose: 100 mls/hr Daptomycin 400 mg/ Sodium (Chloride) 100 mls @ 100 mls/hr IV Q24H NEL PRN Reason: Protocol Stop: 01/24/18 21:01 Last Admin: 01/19/18 21:00 Dose: 100 mls/hr Insulin Aspart (Novolog) 0 unit SC Q6 NEL PRN Reason: Protocol Last Admin: 01/19/18 17:37 Dose: 1 u Insulin Detemir (Levemir) 10 unit SC HS [facility] Last Admin: 01/19/18 21:13 Dose: 10 u Pantoprazole Sodium (Protonix Inj) 40 mg IVP DAILY [facility] Last Admin: 01/19/18 09:57 Dose: 40 mg Tamsulosin HCl (Flomax) 0.4 mg PO DAILY [facility] Last Admin: 01/19/18 09:57 Dose: 0.4 mg - Labs Labs: 01/19/18 05:54 01/19/18 05:54 PT 14.0 SECONDS (9.7-12.2) H 01/13/18 17:42 INR 1.3 01/13/18 17:42 APTT 30 SECONDS (21-34) 01/13/18 17:42 - Constitutional Appears: Well - Head Exam Head Exam: ATRAUMATIC, NORMAL INSPECTION, NORMOCEPHALIC - Eye Exam Eye Exam: EOMI, Normal appearance, PERRL Pupil Exam: NORMAL ACCOMODATION, PERRL - ENT Exam ENT Exam: Mucous Membranes Moist, Normal Exam - Neck Exam Neck Exam: Full ROM, Normal Inspection. absent: Lymphadenopathy - Respiratory Exam Respiratory Exam: Decreased Breath Sounds - Cardiovascular Exam Cardiovascular Exam: REGULAR RHYTHM, +S1, +S2 - GI/Abdominal Exam GI & Abdominal Exam: Soft, Diminished Bowel Sounds - Rectal Exam Rectal Exam: Deferred Assessment and Plan (1) JOY (acute kidney injury) Status: Acute (2) Change in mental status Status: Acute (3) Electrolyte imbalance Status: Acute (4) MRSA (methicillin resistant Staphylococcus aureus) septicemia Status: Acute (5) NSTEMI (non-ST elevated myocardial infarction) Status: Acute (6) Prophylactic measure Status: Acute (7) UTI (urinary tract infection) Status: Acute (8) CHF (congestive heart failure) Status: Chronic (9) CKD (chronic kidney disease) Status: Chronic (10) Diabetes mellitus Status: Chronic (11) Afib Status: Acute (12) Anemia Status: Acute (13) Bilateral hydronephrosis Status: Acute (14) CKD (chronic kidney disease) stage 4, GFR 15-29 ml/min Status: Acute (15) Metabolic acidosis Status: Acute (16) Dementia Status: Chronic - Assessment and Plan (Free Text) Plan: pt seen and examined at bedside in ICU overnight events noted ams low Hb monitor H&H monitor input and output IV hydration ID followup antibiotics accuchecks tight glycemic control blood pressure control dvt/gi px monitor electrolytes
[2018-01-20] MEDS: (Novolog) Insulin Aspart, Recombinant 100 u/ml 10 ml vial SC SCH ×4 (00:31→17:49)
--- NOTE | 2018-01-20 02:51 | PN ---
DATE: 01/19/2018 SUBJECTIVE: The patient was seen today. He remains confused. He opens his eyes but does not follow much command. He remains lethargic. He is afebrile. PHYSICAL EXAMINATION: VITAL SIGNS: T-max is 97.9, pulse 61, blood pressure 121/55, respirations are 16. HEENT: Head is atraumatic and normocephalic. NECK: Supple. LUNGS: Clear. No crackles or rales present. HEART: S1, S2 are regular. No murmurs appreciated. ABDOMEN: Soft, nontender. No guarding, no rigidity present. He has a colostomy. EXTREMITIES: Have no edema. He has a Mendes catheter. LABORATORY DATA: Labs are noted. Labs show white count is 12.5 today, hemoglobin 8.4, hematocrit 26.7, platelet count is 314. Sodium is 154, potassium is 3.1, chlorides are 113. Creatinine remains 1.7, so creatinine is little better than before. ASSESSMENT AND PLAN: He had actually methicillin-resistant Staphylococcus aureus in the urine as well as in the blood, and his blood culture on 01/18/2018 still remains positive. He is on Cubicin. I want to make sure he is getting Cubicin as his cultures are not improving. He is on daptomycin 400 mg. His creatinine is 1.7, and so we can give daptomycin daily as his creatinine has improved. We will follow. The patient has methicillin-resistant Staphylococcus aureus septicemia with urinary tract infection. Has chronic cystitis. We did a CAT scan of the abdomen and pelvis, and it showed the urinary bladder is collapsed around the Mendes catheter, and there is a possibility it could be secondary urinary bladder is quite collapsed and thickened, so may have cystitis. Kidney is demonstrated, there is an exophytic cyst anterolateral cortex, upper mid pole left kidney with a smaller cyst but does not mention anything about the kidney having any hydronephrosis, but this time he did come with methicillin-resistant Staphylococcus aureus septicemia with urinary tract infection, rule out endocarditis and will increase the Cubicin to daily dose as the bacteremia is not clearing, he is also a candidate for endocarditis and may need transesophageal echocardiography. We will follow. Sadhna Ericka, MD
[2018-01-20] MEDS: Sodium Chloride 0.45% 1,000 ML IV SCH ×2 (03:52→13:30)
[2018-01-20 06:00] LABS: BASO # 0.1 K/uL (0.0-0.2); BASO % 0.6 % (0.0-2.0); EOS # 0.2 K/uL (0.0-0.7); EOS % 2.4 % (0.0-4.0); HEMOGLOBIN 9.2 g/dL (12.0-18.0); LYMPH % 9.9 % (20.0-40.0); MEAN CELL VOLUME 85.7 fL (80.0-94.0); MEAN CORPUSCULAR HEMOGLOBIN 27.8 pg (27.0-31.0); MEAN CORPUSCULAR HGB CONC 32.4 g/dL (33.0-37.0); MEAN PLATELET VOLUME 8.7 fL (7.2-11.7); MONO # 0.4 K/uL (0.0-0.8); MONO % 4.3 % (0.0-10.0); NEUT # 8.5 K/uL (1.8-7.0); NEUT % 82.8 % (50.0-75.0); PLATELET COUNT 328 K/uL (130-400); RBC 3.31 Mil/uL (4.40-5.90); RED CELL DISTRIBUTION WIDTH 17.2 % (11.5-14.5); WHITE BLOOD COUNT 10.3 K/uL (4.8-10.8)
[2018-01-20 06:22] LABS: ALB/GLOB RATIO 0.9 (1.0-2.1); CALCIUM 9.8 mg/dl (8.6-10.4)
[2018-01-20 08:38] LABS: BASOPHIL 1 % (0-2); EOSINOPHIL 4 % (0-4); LYMPHOCYTE 7 % (20-40); MONOCYTE 3 % (0-10); NEUTROPHIL 85 % (50-75); PLATELET ESTIMATE NORMAL (NORMAL); TOTAL CELLS COUNTED 100
[2018-01-20 08:39] LABS: ANISOCYTOSIS SLIGHT; HYPOCHROMIC SLIGHT; POIKILOCYTOSIS SLIGHT; TARGET CELLS SLIGHT
[2018-01-20 08:40] LABS: LARGE PLATELETS PRESENT
[2018-01-20] MEDS ORDERED: Sodium Chloride 0.9% 500 ML IV ONE (12:32)
[2018-01-20 14:20] LABS: BASO # 0.1 K/uL (0.0-0.2); EOS # 0.2 K/uL (0.0-0.7); EOS % 2.4 % (0.0-4.0); HEMOGLOBIN 8.6 g/dL (12.0-18.0); MEAN CELL VOLUME 85.6 fL (80.0-94.0); MEAN CORPUSCULAR HEMOGLOBIN 27.7 pg (27.0-31.0); MEAN CORPUSCULAR HGB CONC 32.3 g/dL (33.0-37.0); MEAN PLATELET VOLUME 8.1 fL (7.2-11.7); MONO # 0.5 K/uL (0.0-0.8); MONO % 4.8 % (0.0-10.0); NEUT # 8.1 K/uL (1.8-7.0); NEUT % 81.8 % (50.0-75.0); RBC 3.1 Mil/uL (4.40-5.90); WHITE BLOOD COUNT 9.9 K/uL (4.8-10.8)
--- NOTE | 2018-01-20 14:46 | CP.CCUPN ---
<Gary Rajan - Last Filed: 01/20/18 16:53> CCU Subjective - Physician Review Subjective (Free Text): 01/14/18 13:08 ICU Progress note Patient seen and examined at bedside. Patient is unable to provide history and does not respond to questions. Patient's eyes are open however he does not respond to commands. CCU Objective - Vital Signs / Intake & Output Vital Signs (Last 4 hours): Vital Signs Temp Pulse Resp BP Pulse Ox 01/20/18 14:00 74 30 H 88/55 L 97 01/20/18 13:00 66 18 95/45 L 97 01/20/18 12:00 98.2 F 77 18 88/52 L 97 01/20/18 11:07 70 13 01/20/18 11:00 72 18 90/52 L 97 Intake and Output (Last 8hrs): Intake & Output 01/19/18 01/20/18 01/20/18 22:59 06:59 14:59 Intake Total 1280 1525 1560 Output Total 670 1670 Balance 610 -145 1560 Weight 139 lb 12.369 oz Intake: Intake, IV Amount 869 010 5231 Left Hand 819 008 9189 Tube Feeding 280 325 360 Other 200 400 Output: Urine 170 20 Urethral (Mendes) 170 20 Stool 500 1650 - Physical Exam Head: Positive for: Atraumatic, Normocephalic Pupils: Positive for: PERRL. Negative for: Sluggish, Non-Reactive Extroacular Muscles: Negative for: EOMI (not following commands for EOMI testing ) Conjunctiva: Positive for: Normal. Negative for: Injected, Icteric Mouth: Positive for: Moist Mucous Membranes. Negative for: Drooling Nose (External): Positive for: Atraumatic. Negative for: Abrasion, Contusion, Laceration Nose (Internal): Positive for: No Active Bleeding. Negative for: Epistaxis Neck: Negative for: JVD Respiratory/Chest: Positive for: Clear to Auscultation, Other (no notable rales/ wheezes/ronchi). Negative for: Respiratory Distress, Accessory Muscle Use, Wheezes, Rales, Rhonchi Cardiovascular: Positive for: Normal S1, S2, Peripheal Pulses Present (+2 dorsalis pedis and radials bilaterally). Negative for: Irregular Rhythm, Bradycardic Abdomen: Positive for: Normal Bowel Sounds, Other (ostomy bag at RLQ, ostomy appears pink/patent, no surrounding erythema). Negative for: Distention Upper Extremity: Positive for: NORMAL PULSES. Negative for: Cyanosis, Edema, Swelling, Erythema, Deformity Lower Extremity: Positive for: Normal Inspection, NORMAL PULSES. Negative for: Edema, CALF TENDERNESS, Cyanosis, Swelling, Erythema, Deformity Neurological: Positive for: Motor Func Grossly Intact (not following commands. ) . Negative for: GCS=15 (GCS 9 ([id number])) Skin: Positive for: Warm, Dry Psychiatric: Positive for: Other (Unable to determine since patient is not speaking) - Medications Active Medications: Active Medications Generic Name Dose Route Start Last Admin Trade Name Freq PRN Reason Stop Dose Admin Dextrose 0 ml 01/14/18 15:10 Dextrose 50% Inj IV STAT PRN Hypoglycemia Protocol Protocol Dextrose 0 gm 01/14/18 15:10 Glutose 15 PO ONCE PRN Hypoglycemia Protocol Protocol Glucagon 0 mg 01/14/18 15:10 Glucagen Diagnostic Kit IM STAT PRN Hypoglycemia Protocol Protocol Heparin Sodium (Porcine) 5,000 units 01/19/18 13:30 01/20/18 09:30 Heparin SC 5,000 units Q12 NEL Administration Sodium Chloride 1,000 mls @ 100 mls/hr 01/18/18 21:15 01/20/18 03:52 Sodium Chloride 0.45% IV 100 mls/hr .Q10H NEL Administration Daptomycin 400 mg/ Sodium 100 mls @ 100 mls/hr 01/19/18 21:00 01/19/18 21:00 Chloride IV 01/24/18 21:01 100 mls/hr Q24H NEL Administration Protocol Insulin Aspart 0 unit 01/14/18 06:00 01/20/18 12:15 Novolog SC 2 u Q6 NEL Administration Protocol Insulin Detemir 10 unit 01/14/18 22:00 01/19/18 21:13 Levemir SC 10 u HS NEL Administration Pantoprazole Sodium 40 mg 01/18/18 10:00 01/20/18 09:30 Protonix Inj IVP 40 mg DAILY NEL Administration Tamsulosin HCl 0.4 mg 01/14/18 10:00 01/20/18 09:30 Flomax PO 0.4 mg DAILY NEL Administration - Patient Studies Lab Studies: Microbiology Studies 01/18/18 05:00 Blood Culture - Preliminary Blood-Venous Gram Positive Cocci Gram Stain - Final 01/18/18 04:30 S.aureus & Coag-Neg Staph PNA FISH - Final Blood-Venous TEST NOT PERFORMED Blood Culture - Preliminary Gram Positive Cocci Gram Stain - Final Lab Studies 01/20/18 01/20/18 01/20/18 Range/Units 14:15 11:44 05:51 WBC 9.9 (4.8-10.8) K/uL RBC 3.10 L (4.40-5.90) Mil/uL Hgb 8.6 L (12.0-18.0) g/dL Hct 26.5 L (35.0-51.0) % MCV 85.6 (80.0-94.0) fL MCH 27.7 (27.0-31.0) pg MCHC 32.3 L (33.0-37.0) g/dL RDW 17.0 H (11.5-14.5) % Plt Count 295 (130-400) K/uL MPV 8.1 (7.2-11.7) fL Neut % (Auto) 81.8 H (50.0-75.0) % Lymph % (Auto) 10.0 L (20.0-40.0) % [place] % (Auto) 4.8 (0.0-10.0) % Eos % (Auto) 2.4 (0.0-4.0) % Baso % (Auto) 1.0 (0.0-2.0) % Neut # (Auto) 8.1 H (1.8-7.0) K/uL Lymph # (Auto) 1.0 (1.0-4.3) K/uL [place] # (Auto) 0.5 (0.0-0.8) K/uL Eos # (Auto) 0.2 (0.0-0.7) K/uL Baso # (Auto) 0.1 (0.0-0.2) K/uL Neutrophils % (Manual) (50-75) % Lymphocytes % (Manual) (20-40) % Monocytes % (Manual) (0-10) % Eosinophils % (Manual) (0-4) % Basophils % (Manual) (0-2) % Platelet Estimate (NORMAL) Large Platelets Hypochromasia (manual) Poikilocytosis (manual Anisocytosis (manual) Target Cells Sodium 149 H (132-148) mmol/L Potassium 4.0 (3.6-5.2) mmol/L Chloride 112 H (98-107) mmol/L Carbon Dioxide 21 L (22-30) mmol/L Anion Gap 20 (10-20) BUN 59 H (9-20) mg/dL Creatinine 2.8 H (0.8-1.5) mg/dL Est GFR ( Amer) 27 Est GFR (Non-Af Amer) 22 POC Glucose (mg/dL) 218 H (65-110) mg/dL Random Glucose 203 H (75-110) mg/dL Calcium 9.8 (8.6-10.4) mg/dl Phosphorus 1.8 L (2.5-4.5) mg/dL Magnesium 2.2 (1.6-2.3) mg/dL Total Bilirubin 0.7 (0.2-1.3) mg/dL AST 37 (17-59) U/L ALT 34 (21-72) U/L Alkaline Phosphatase 180 H (38-126) U/L Total Protein 8.4 H (6.3-8.3) g/dL Albumin 4.0 (3.5-5.0) g/dL Globulin 4.3 H (2.2-3.9) gm/dL Albumin/Globulin Ratio 0.9 L (1.0-2.1) Ethanolamine Toxicology Panel (()) Methyl Alcohol Level Isopropanol Acetone Level 01/20/18 01/20/18 01/19/18 Range/Units 05:51 04:57 23:44 WBC 10.3 (4.8-10.8) K/uL RBC 3.31 L (4.40-5.90) Mil/uL Hgb 9.2 L (12.0-18.0) g/dL Hct 28.4 L (35.0-51.0) % MCV 85.7 (80.0-94.0) fL MCH 27.8 (27.0-31.0) pg MCHC 32.4 L (33.0-37.0) g/dL RDW 17.2 H (11.5-14.5) % Plt Count 328 (130-400) K/uL MPV 8.7 (7.2-11.7) fL Neut % (Auto) 82.8 H (50.0-75.0) % Lymph % (Auto) 9.9 L (20.0-40.0) % [place] % (Auto) 4.3 (0.0-10.0) % Eos % (Auto) 2.4 (0.0-4.0) % Baso % (Auto) 0.6 (0.0-2.0) % Neut # (Auto) 8.5 H (1.8-7.0) K/uL Lymph # (Auto) 1.0 (1.0-4.3) K/uL [place] # (Auto) 0.4 (0.0-0.8) K/uL Eos # (Auto) 0.2 (0.0-0.7) K/uL Baso # (Auto) 0.1 (0.0-0.2) K/uL Neutrophils % (Manual) 85 H (50-75) % Lymphocytes % (Manual) 7 L (20-40) % Monocytes % (Manual) 3 (0-10) % Eosinophils % (Manual) 4 (0-4) % Basophils % (Manual) 1 (0-2) % Platelet Estimate Normal (NORMAL) Large Platelets Present Hypochromasia (manual) Slight Poikilocytosis (manual Slight Anisocytosis (manual) Slight Target Cells Slight Sodium (132-148) mmol/L Potassium (3.6-5.2) mmol/L Chloride (98-107) mmol/L Carbon Dioxide (22-30) mmol/L Anion Gap (10-20) BUN (9-20) mg/dL Creatinine (0.8-1.5) mg/dL Est GFR ( Amer) Est GFR (Non-Af Amer) POC Glucose (mg/dL) 215 H 201 H (65-110) mg/dL Random Glucose (75-110) mg/dL Calcium (8.6-10.4) mg/dl Phosphorus (2.5-4.5) mg/dL Magnesium (1.6-2.3) mg/dL Total Bilirubin (0.2-1.3) mg/dL AST (17-59) U/L ALT (21-72) U/L Alkaline Phosphatase (38-126) U/L Total Protein (6.3-8.3) g/dL Albumin (3.5-5.0) g/dL Globulin (2.2-3.9) gm/dL Albumin/Globulin Ratio (1.0-2.1) Ethanolamine Toxicology Panel (()) Methyl Alcohol Level Isopropanol Acetone Level 01/19/18 01/13/18 Range/Units 17:35 22:34 WBC (4.8-10.8) K/uL RBC (4.40-5.90) Mil/uL Hgb (12.0-18.0) g/dL Hct (35.0-51.0) % MCV (80.0-94.0) fL MCH (27.0-31.0) pg MCHC (33.0-37.0) g/dL RDW (11.5-14.5) % Plt Count (130-400) K/uL MPV (7.2-11.7) fL Neut % (Auto) (50.0-75.0) % Lymph % (Auto) (20.0-40.0) % [place] % (Auto) (0.0-10.0) % Eos % (Auto) (0.0-4.0) % Baso % (Auto) (0.0-2.0) % Neut # (Auto) (1.8-7.0) K/uL Lymph # (Auto) (1.0-4.3) K/uL [place] # (Auto) (0.0-0.8) K/uL Eos # (Auto) (0.0-0.7) K/uL Baso # (Auto) (0.0-0.2) K/uL Neutrophils % (Manual) (50-75) % Lymphocytes % (Manual) (20-40) % Monocytes % (Manual) (0-10) % Eosinophils % (Manual) (0-4) % Basophils % (Manual) (0-2) % Platelet Estimate (NORMAL) Large Platelets Hypochromasia (manual) Poikilocytosis (manual Anisocytosis (manual) Target Cells Sodium (132-148) mmol/L Potassium (3.6-5.2) mmol/L Chloride (98-107) mmol/L Carbon Dioxide (22-30) mmol/L Anion Gap (10-20) BUN (9-20) mg/dL Creatinine (0.8-1.5) mg/dL Est GFR ( Amer) Est GFR (Non-Af Amer) POC Glucose (mg/dL) 167 H (65-110) mg/dL Random Glucose (75-110) mg/dL Calcium (8.6-10.4) mg/dl Phosphorus (2.5-4.5) mg/dL Magnesium (1.6-2.3) mg/dL Total Bilirubin (0.2-1.3) mg/dL AST (17-59) U/L ALT (21-72) U/L Alkaline Phosphatase (38-126) U/L Total Protein (6.3-8.3) g/dL Albumin (3.5-5.0) g/dL Globulin (2.2-3.9) gm/dL Albumin/Globulin Ratio (1.0-2.1) Ethanolamine None detected Toxicology Panel see note (()) Methyl Alcohol Level None detected Isopropanol None detected Acetone Level None detected Laboratory Results - last 24 hr 01/13/18 01/19/18 01/19/18 22:34 17:35 23:44 WBC RBC Hgb Hct MCV MCH MCHC RDW Plt Count MPV Neut % (Auto) Lymph % (Auto) [place] % (Auto) Eos % (Auto) Baso % (Auto) Neut # (Auto) Lymph # (Auto) [place] # (Auto) Eos # (Auto) Baso # (Auto) Neutrophils % (Manual) Lymphocytes % (Manual) Monocytes % (Manual) Eosinophils % (Manual) Basophils % (Manual) Platelet Estimate Large Platelets Hypochromasia (manual) Poikilocytosis (manual Anisocytosis (manual) Target Cells Sodium Potassium Chloride Carbon Dioxide Anion Gap BUN Creatinine Est GFR ( Amer) Est GFR (Non-Af Amer) POC Glucose (mg/dL) 167 H 201 H Random Glucose Calcium Phosphorus Magnesium Total Bilirubin AST ALT Alkaline Phosphatase Total Protein Albumin Globulin Albumin/Globulin Ratio Ethanolamine None detected Toxicology Panel see note Methyl Alcohol Level None detected Isopropanol None detected Acetone Level None detected 01/20/18 01/20/18 01/20/18 04:57 05:51 05:51 WBC 10.3 RBC 3.31 L Hgb 9.2 L Hct 28.4 L MCV 85.7 MCH 27.8 MCHC 32.4 L RDW 17.2 H Plt Count 328 MPV 8.7 Neut % (Auto) 82.8 H Lymph % (Auto) 9.9 L [place] % (Auto) 4.3 Eos % (Auto) 2.4 Baso % (Auto) 0.6 Neut # (Auto) 8.5 H Lymph # (Auto) 1.0 [place] # (Auto) 0.4 Eos # (Auto) 0.2 Baso # (Auto) 0.1 Neutrophils % (Manual) 85 H Lymphocytes % (Manual) 7 L Monocytes % (Manual) 3 Eosinophils % (Manual) 4 Basophils % (Manual) 1 Platelet Estimate Normal Large Platelets Present Hypochromasia (manual) Slight Poikilocytosis (manual Slight Anisocytosis (manual) Slight Target Cells Slight Sodium 149 H Potassium 4.0 Chloride 112 H Carbon Dioxide 21 L Anion Gap 20 BUN 59 H Creatinine 2.8 H Est GFR ( Amer) 27 Est GFR (Non-Af Amer) 22 POC Glucose (mg/dL) 215 H Random Glucose 203 H Calcium 9.8 Phosphorus 1.8 L Magnesium 2.2 Total Bilirubin 0.7 AST 37 ALT 34 Alkaline Phosphatase 180 H Total Protein 8.4 H Albumin 4.0 Globulin 4.3 H Albumin/Globulin Ratio 0.9 L Ethanolamine Toxicology Panel Methyl Alcohol Level Isopropanol Acetone Level 01/20/18 01/20/18 11:44 14:15 WBC 9.9 RBC 3.10 L Hgb 8.6 L Hct 26.5 L MCV 85.6 MCH 27.7 MCHC 32.3 L RDW 17.0 H Plt Count 295 MPV 8.1 Neut % (Auto) 81.8 H Lymph % (Auto) 10.0 L [place] % (Auto) 4.8 Eos % (Auto) 2.4 Baso % (Auto) 1.0 Neut # (Auto) 8.1 H Lymph # (Auto) 1.0 [place] # (Auto) 0.5 Eos # (Auto) 0.2 Baso # (Auto) 0.1 Neutrophils % (Manual) Lymphocytes % (Manual) Monocytes % (Manual) Eosinophils % (Manual) Basophils % (Manual) Platelet Estimate Large Platelets Hypochromasia (manual) Poikilocytosis (manual Anisocytosis (manual) Target Cells Sodium Potassium Chloride Carbon Dioxide Anion Gap BUN Creatinine Est GFR ( Amer) Est GFR (Non-Af Amer) POC Glucose (mg/dL) 218 H Random Glucose Calcium Phosphorus Magnesium Total Bilirubin AST ALT Alkaline Phosphatase Total Protein Albumin Globulin Albumin/Globulin Ratio Ethanolamine Toxicology Panel Methyl Alcohol Level Isopropanol Acetone Level Fingerstick Blood Sugar Results: 218 Review of Systems - Review of Systems Systems not reviewed;Unavailable: Altered Mental Status Critical Care Progress Note - Nutrition Nutrition: Nutrition Category Date Time Status NPO Diet [DIET] Diets 01/14/18 Breakfast Active Assessment/Plan - Assessment and Plan (Free Text) Assessment: 72 year old male with history of dementia, DM, BPH and CKD who was sent in from assisted after he was found altered after he had been refusing to eat. Patient is altered and unable to provide history. Patient was found to be hyperkalemic, and in acute kidney injury with abnormal Cr and BUN. ICU consulted for management of significant electrolyte imbalances. Plan: Neuro: -Altered mental status -Head CT: No acute intracranial pathology. Age-related changes. No significant interval change. -Keep NPO until mental status improves -U Tox: negative -Valproic acid <10.0 Cardiovascular: -Chronic systolic heart failure, admission proBNP 8010 -Troponin 0.0730 -->0.0710 -->0.0550 -Echo notable for EF 15-20%, indeterminate diastolic function, severe LV global hypokinesia, moderately reduced RV systolic fxn, LA mildly dilated, mild MR/TR -HR currently in 60s -Strict I's and O's -Cardiology Dr. Thompson consulted, help appreciated Pulmonary: -Currently on RA, saturating well. -CXR: no acute disease GI: -Protonix 40mg Q12 IV -Abd US: Limited study; Increased echogenicity of the hepatic parenchymal cortex suggestive for fatty infiltration versus hepatic parenchymal disease; top normal wall thickness of the gallbladder measuring 3 millimeters; mildly ectatic and prominent distal abdominal aorta measuring up to 2.9 centimeters; bilateral renal cysts -Stool occult negative for blood -CT chest abd/pelvis There is marked wall thickening of the urinary bladder with intraluminal urinary bladder air in part due to the presence of an in situ unclamped Mendes catheter however the possibility of a UTI must be considered. There is also on dense appearance of the urothelium in both renal pelves and proximal ureters also suggesting UTI. Clinical correlation with urinalysis recommended. . Bibasilar atelectasis right greater than left. Rule out developing infiltrate. Cardiomegaly. See above discussion for additional details and findings. Right lower quadrant ostomy. Clinical correlation with surgical history recommended Renal: -Acute kidney injury on CKD, improving currently -BUN 219 on admission, 59 today -Cr 10.7 on admission, 2.8 today -Serum osmolarity 410, Urine osmolality 475 -Ur random Cr 94 Urine Na 64 urine urea nitrogen 476 -Initial Na 156, K 8 --> today: Na 149, K 4.0 -Continue 1/2 NS IV fluids - Renal US ordered. ID -WBCs 12.5 -ID (Dr. Barnett) consulted, help appreciated -switched to Daptomycin Q48 hours given upward trend of Creatinine -Blood cx x2 positive for MRSA, 1x blood cx also positive for E faecalis, urine culture positive for MRSA > 100k CFUs -UA: 3+ LE 3+ blood 2+ protein -VBG lactate 1.3 --> 2.0 (on 01/13), serum lactate 1.8 (on 01/14) Heme -Hb currently stable at 8.4/Hct 26.7 -no signs of acute bleeding and stool occult negative Endo -continue Levemir 10unit SC HS, continue accuchecks PPX: Heparin 5000 unit SC Q12, Protonix 40mg IV Case discussed with Dr. Levin <Dale Levin - Last Filed: 01/20/18 18:56> CCU Objective - Vital Signs / Intake & Output Vital Signs (Last 4 hours): Vital Signs Temp Pulse Resp BP Pulse Ox 01/20/18 18:00 68 11 L 98/50 L 94 L 01/20/18 17:00 71 15 86/46 L 96 01/20/18 16:00 99.1 F 64 32 H 92/40 L 95 01/20/18 15:00 67 15 99/40 L 98 Intake and Output (Last 8hrs): Intake & Output 01/20/18 01/20/18 01/20/18 06:59 14:59 22:59 Intake Total 1525 1560 580 Output Total 1670 1085 50 Balance -145 475 530 Weight 139 lb 12.369 oz Intake: Intake, IV Amount 800 1200 400 Left Hand 800 1200 400 Tube Feeding 325 360 180 Other 400 Output: Urine 20 85 50 Urethral (Mendes) 20 85 50 Stool 1650 1000 - Medications Active Medications: Active Medications Generic Name Dose Route Start Last Admin Trade Name Freq PRN Reason Stop Dose Admin Dextrose 0 ml 01/14/18 15:10 Dextrose 50% Inj IV STAT PRN Hypoglycemia Protocol Protocol Dextrose 0 gm 01/14/18 15:10 Glutose 15 PO ONCE PRN Hypoglycemia Protocol Protocol Glucagon 0 mg 01/14/18 15:10 Glucagen Diagnostic Kit IM STAT PRN Hypoglycemia Protocol Protocol Heparin Sodium (Porcine) 5,000 units 01/19/18 13:30 01/20/18 09:30 Heparin SC 5,000 units Q12 NEL Administration Sodium Chloride 1,000 mls @ 100 mls/hr 01/18/18 21:15 01/20/18 13:30 Sodium Chloride 0.45% IV 100 mls/hr .Q10H NEL Administration Daptomycin 400 mg/ Sodium 100 mls @ 100 mls/hr 01/19/18 21:00 01/19/18 21:00 Chloride IV 01/24/18 21:01 100 mls/hr Q24H NEL Administration Protocol Vancomycin/Sodium Chloride 1 gm in 200 mls @ 133 mls/hr 01/20/18 18:00 18:28 Vancomycin 1 Gm/Ns 200 Ml IVPB 01/20/18 19:30 133 mls/hr STAT ONE Administration Protocol Insulin Aspart 0 unit 01/14/18 06:00 01/20/18 17:49 Novolog SC 2 u Q6 NEL Administration Protocol Insulin Detemir 10 unit 01/14/18 22:00 01/19/18 21:13 Levemir SC 10 u HS NEL Administration Pantoprazole Sodium 40 mg 01/18/18 10:00 01/20/18 09:30 Protonix Inj IVP 40 mg DAILY NEL Administration Tamsulosin HCl 0.4 mg 01/14/18 10:00 01/20/18 09:30 Flomax PO 0.4 mg DAILY NEL Administration - Patient Studies Lab Studies: Microbiology Studies 01/18/18 04:30 Blood Culture - Preliminary Blood-Venous Staphylococcus Aureus Gram Stain - Final 01/18/18 05:00 Blood Culture - Preliminary Blood-Venous Gram Positive Cocci Gram Stain - Final Lab Studies 01/20/18 01/20/18 01/20/18 Range/Units 14:15 14:15 11:44 WBC 9.9 (4.8-10.8) K/uL RBC 3.10 L (4.40-5.90) Mil/uL Hgb 8.6 L (12.0-18.0) g/dL Hct 26.5 L (35.0-51.0) % MCV 85.6 (80.0-94.0) fL MCH 27.7 (27.0-31.0) pg MCHC 32.3 L (33.0-37.0) g/dL RDW 17.0 H (11.5-14.5) % Plt Count 295 (130-400) K/uL MPV 8.1 (7.2-11.7) fL Neut % (Auto) 81.8 H (50.0-75.0) % Lymph % (Auto) 10.0 L (20.0-40.0) % [place] % (Auto) 4.8 (0.0-10.0) % Eos % (Auto) 2.4 (0.0-4.0) % Baso % (Auto) 1.0 (0.0-2.0) % Neut # (Auto) 8.1 H (1.8-7.0) K/uL Lymph # (Auto) 1.0 (1.0-4.3) K/uL [place] # (Auto) 0.5 (0.0-0.8) K/uL Eos # (Auto) 0.2 (0.0-0.7) K/uL Baso # (Auto) 0.1 (0.0-0.2) K/uL Neutrophils % (Manual) (50-75) % Lymphocytes % (Manual) (20-40) % Monocytes % (Manual) (0-10) % Eosinophils % (Manual) (0-4) % Basophils % (Manual) (0-2) % Platelet Estimate (NORMAL) Large Platelets Hypochromasia (manual) Poikilocytosis (manual Anisocytosis (manual) Target Cells Sodium 144 (132-148) mmol/L Potassium 4.2 (3.6-5.2) mmol/L Chloride 110 H (98-107) mmol/L Carbon Dioxide 17 L (22-30) mmol/L Anion Gap 22 H (10-20) BUN 62 H (9-20) mg/dL Creatinine 3.1 H (0.8-1.5) mg/dL Est GFR ( Amer) 24 Est GFR (Non-Af Amer) 20 POC Glucose (mg/dL) 218 H (65-110) mg/dL Random Glucose 206 H (75-110) mg/dL Calcium 9.0 (8.6-10.4) mg/dl Phosphorus 1.8 L (2.5-4.5) mg/dL Magnesium 2.2 (1.6-2.3) mg/dL Total Bilirubin 0.6 (0.2-1.3) mg/dL AST 20 (17-59) U/L ALT 30 (21-72) U/L Alkaline Phosphatase 167 H (38-126) U/L Total Protein 7.9 (6.3-8.3) g/dL Albumin 3.7 (3.5-5.0) g/dL Globulin 4.2 H (2.2-3.9) gm/dL Albumin/Globulin Ratio 0.9 L (1.0-2.1) Ethanolamine Toxicology Panel (()) Methyl Alcohol Level Isopropanol Acetone Level 01/20/18 01/20/18 01/20/18 Range/Units 05:51 05:51 04:57 WBC 10.3 (4.8-10.8) K/uL RBC 3.31 L (4.40-5.90) Mil/uL Hgb 9.2 L (12.0-18.0) g/dL Hct 28.4 L (35.0-51.0) % MCV 85.7 (80.0-94.0) fL MCH 27.8 (27.0-31.0) pg MCHC 32.4 L (33.0-37.0) g/dL RDW 17.2 H (11.5-14.5) % Plt Count 328 (130-400) K/uL MPV 8.7 (7.2-11.7) fL Neut % (Auto) 82.8 H (50.0-75.0) % Lymph % (Auto) 9.9 L (20.0-40.0) % [place] % (Auto) 4.3 (0.0-10.0) % Eos % (Auto) 2.4 (0.0-4.0) % Baso % (Auto) 0.6 (0.0-2.0) % Neut # (Auto) 8.5 H (1.8-7.0) K/uL Lymph # (Auto) 1.0 (1.0-4.3) K/uL [place] # (Auto) 0.4 (0.0-0.8) K/uL Eos # (Auto) 0.2 (0.0-0.7) K/uL Baso # (Auto) 0.1 (0.0-0.2) K/uL Neutrophils % (Manual) 85 H (50-75) % Lymphocytes % (Manual) 7 L (20-40) % Monocytes % (Manual) 3 (0-10) % Eosinophils % (Manual) 4 (0-4) % Basophils % (Manual) 1 (0-2) % Platelet Estimate Normal (NORMAL) Large Platelets Present Hypochromasia (manual) Slight Poikilocytosis (manual Slight Anisocytosis (manual) Slight Target Cells Slight Sodium 149 H (132-148) mmol/L Potassium 4.0 (3.6-5.2) mmol/L Chloride 112 H (98-107) mmol/L Carbon Dioxide 21 L (22-30) mmol/L Anion Gap 20 (10-20) BUN 59 H (9-20) mg/dL Creatinine 2.8 H (0.8-1.5) mg/dL Est GFR ( Amer) 27 Est GFR (Non-Af Amer) 22 POC Glucose (mg/dL) 215 H (65-110) mg/dL Random Glucose 203 H (75-110) mg/dL Calcium 9.8 (8.6-10.4) mg/dl Phosphorus 1.8 L (2.5-4.5) mg/dL Magnesium 2.2 (1.6-2.3) mg/dL Total Bilirubin 0.7 (0.2-1.3) mg/dL AST 37 (17-59) U/L ALT 34 (21-72) U/L Alkaline Phosphatase 180 H (38-126) U/L Total Protein 8.4 H (6.3-8.3) g/dL Albumin 4.0 (3.5-5.0) g/dL Globulin 4.3 H (2.2-3.9) gm/dL Albumin/Globulin Ratio 0.9 L (1.0-2.1) Ethanolamine Toxicology Panel (()) Methyl Alcohol Level Isopropanol Acetone Level 01/19/18 01/19/18 01/13/18 Range/Units 23:44 17:35 22:34 WBC (4.8-10.8) K/uL RBC (4.40-5.90) Mil/uL Hgb (12.0-18.0) g/dL Hct (35.0-51.0) % MCV (80.0-94.0) fL MCH (27.0-31.0) pg MCHC (33.0-37.0) g/dL RDW (11.5-14.5) % Plt Count (130-400) K/uL MPV (7.2-11.7) fL Neut % (Auto) (50.0-75.0) % Lymph % (Auto) (20.0-40.0) % [place] % (Auto) (0.0-10.0) % Eos % (Auto) (0.0-4.0) % Baso % (Auto) (0.0-2.0) % Neut # (Auto) (1.8-7.0) K/uL Lymph # (Auto) (1.0-4.3) K/uL [place] # (Auto) (0.0-0.8) K/uL Eos # (Auto) (0.0-0.7) K/uL Baso # (Auto) (0.0-0.2) K/uL Neutrophils % (Manual) (50-75) % Lymphocytes % (Manual) (20-40) % Monocytes % (Manual) (0-10) % Eosinophils % (Manual) (0-4) % Basophils % (Manual) (0-2) % Platelet Estimate (NORMAL) Large Platelets Hypochromasia (manual) Poikilocytosis (manual Anisocytosis (manual) Target Cells Sodium (132-148) mmol/L Potassium (3.6-5.2) mmol/L Chloride (98-107) mmol/L Carbon Dioxide (22-30) mmol/L Anion Gap (10-20) BUN (9-20) mg/dL Creatinine (0.8-1.5) mg/dL Est GFR ( Amer) Est GFR (Non-Af Amer) POC Glucose (mg/dL) 201 H 167 H (65-110) mg/dL Random Glucose (75-110) mg/dL Calcium (8.6-10.4) mg/dl Phosphorus (2.5-4.5) mg/dL Magnesium (1.6-2.3) mg/dL Total Bilirubin (0.2-1.3) mg/dL AST (17-59) U/L ALT (21-72) U/L Alkaline Phosphatase (38-126) U/L Total Protein (6.3-8.3) g/dL Albumin (3.5-5.0) g/dL Globulin (2.2-3.9) gm/dL Albumin/Globulin Ratio (1.0-2.1) Ethanolamine None detected Toxicology Panel see note (()) Methyl Alcohol Level None detected Isopropanol None detected Acetone Level None detected Laboratory Results - last 24 hr 01/13/18 01/19/18 01/19/18 22:34 17:35 23:44 WBC RBC Hgb Hct MCV MCH MCHC RDW Plt Count MPV Neut % (Auto) Lymph % (Auto) [place] % (Auto) Eos % (Auto) Baso % (Auto) Neut # (Auto) Lymph # (Auto) [place] # (Auto) Eos # (Auto) Baso # (Auto) Neutrophils % (Manual) Lymphocytes % (Manual) Monocytes % (Manual) Eosinophils % (Manual) Basophils % (Manual) Platelet Estimate Large Platelets Hypochromasia (manual) Poikilocytosis (manual Anisocytosis (manual) Target Cells Sodium Potassium Chloride Carbon Dioxide Anion Gap BUN Creatinine Est GFR ( Amer) Est GFR (Non-Af Amer) POC Glucose (mg/dL) 167 H 201 H Random Glucose Calcium Phosphorus Magnesium Total Bilirubin AST ALT Alkaline Phosphatase Total Protein Albumin Globulin Albumin/Globulin Ratio Ethanolamine None detected Toxicology Panel see note Methyl Alcohol Level None detected Isopropanol None detected Acetone Level None detected 01/20/18 01/20/18 01/20/18 04:57 05:51 05:51 WBC 10.3 RBC 3.31 L Hgb 9.2 L Hct 28.4 L MCV 85.7 MCH 27.8 MCHC 32.4 L RDW 17.2 H Plt Count 328 MPV 8.7 Neut % (Auto) 82.8 H Lymph % (Auto) 9.9 L [place] % (Auto) 4.3 Eos % (Auto) 2.4 Baso % (Auto) 0.6 Neut # (Auto) 8.5 H Lymph # (Auto) 1.0 [place] # (Auto) 0.4 Eos # (Auto) 0.2 Baso # (Auto) 0.1 Neutrophils % (Manual) 85 H Lymphocytes % (Manual) 7 L Monocytes % (Manual) 3 Eosinophils % (Manual) 4 Basophils % (Manual) 1 Platelet Estimate Normal Large Platelets Present Hypochromasia (manual) Slight Poikilocytosis (manual Slight Anisocytosis (manual) Slight Target Cells Slight Sodium 149 H Potassium 4.0 Chloride 112 H Carbon Dioxide 21 L Anion Gap 20 BUN 59 H Creatinine 2.8 H Est GFR ( Amer) 27 Est GFR (Non-Af Amer) 22 POC Glucose (mg/dL) 215 H Random Glucose 203 H Calcium 9.8 Phosphorus 1.8 L Magnesium 2.2 Total Bilirubin 0.7 AST 37 ALT 34 Alkaline Phosphatase 180 H Total Protein 8.4 H Albumin 4.0 Globulin 4.3 H Albumin/Globulin Ratio 0.9 L Ethanolamine Toxicology Panel Methyl Alcohol Level Isopropanol Acetone Level 01/20/18 01/20/18 01/20/18 11:44 14:15 14:15 WBC 9.9 RBC 3.10 L Hgb 8.6 L Hct 26.5 L MCV 85.6 MCH 27.7 MCHC 32.3 L RDW 17.0 H Plt Count 295 MPV 8.1 Neut % (Auto) 81.8 H Lymph % (Auto) 10.0 L [place] % (Auto) 4.8 Eos % (Auto) 2.4 Baso % (Auto) 1.0 Neut # (Auto) 8.1 H Lymph # (Auto) 1.0 [place] # (Auto) 0.5 Eos # (Auto) 0.2 Baso # (Auto) 0.1 Neutrophils % (Manual) Lymphocytes % (Manual) Monocytes % (Manual) Eosinophils % (Manual) Basophils % (Manual) Platelet Estimate Large Platelets Hypochromasia (manual) Poikilocytosis (manual Anisocytosis (manual) Target Cells Sodium 144 Potassium 4.2 Chloride 110 H Carbon Dioxide 17 L Anion Gap 22 H BUN 62 H Creatinine 3.1 H Est GFR ( Amer) 24 Est GFR (Non-Af Amer) 20 POC Glucose (mg/dL) 218 H Random Glucose 206 H Calcium 9.0 Phosphorus 1.8 L Magnesium 2.2 Total Bilirubin 0.6 AST 20 ALT 30 Alkaline Phosphatase 167 H Total Protein 7.9 Albumin 3.7 Globulin 4.2 H Albumin/Globulin Ratio 0.9 L Ethanolamine Toxicology Panel Methyl Alcohol Level Isopropanol Acetone Level Critical Care Progress Note - Nutrition Nutrition: Nutrition Category Date Time Status NPO Diet [DIET] Diets 01/14/18 Breakfast Active Attending/Attestation - Attestation I have personally seen and examined this patient.: Yes I have fully participated in the care of the patient.: Yes I have reviewed all pertinent clinical information: Yes Notes (Text): 01/20/18 18:56 Today: January The Patient was seen and examined at the bedside, Medical records reviewed, and management issues were discussed and formulated with the house staff. I have reviewed all the relevant clinical, laboratory, hemodynamic, radiographic data and medications Events reviewed Pain issues, skin care, head of the bed elevation, glycemic control were addressed. Agree with above resident's assessment and treatment plans of care as transcribed in Dr. Rajan's note.
[2018-01-20 14:47] LABS: ALB/GLOB RATIO 0.9 (1.0-2.1); ALBUMIN 3.7 g/dL (3.5-5.0)
--- NOTE | 2018-01-20 14:48 | CP.PCM.PN ---
<Merlene Winston E - Last Filed: 01/20/18 16:17> Subjective - Date & Time of Evaluation Date of Evaluation: 01/20/18 Time of Evaluation: 10:20 - Subjective Subjective: Cardiology progress note (Dr. Thompson' service) Patient was seen and examined at bedside. Patient is moderately drowsy but still arousable. As per staff, no acute issues overnight. Objective - Vital Signs/Intake and Output Vital Signs (last 24 hours): Temp Pulse Resp BP Pulse Ox 98.2 F 75 20 88/55 L 96 01/20/18 12:00 01/20/18 14:00 01/20/18 14:00 01/20/18 14:00 01/20/18 14:00 Intake and Output: 01/20/18 01/20/18 06:59 18:59 Intake Total 2065 1560 Output Total 1730 Balance 335 1560 - Medications Medications: Current Medications Dextrose (Dextrose 50% Inj) 0 ml IV STAT PRN; Protocol PRN Reason: Hypoglycemia Protocol Dextrose (Glutose 15) 0 gm PO ONCE PRN; Protocol PRN Reason: Hypoglycemia Protocol Glucagon (Glucagen Diagnostic Kit) 0 mg IM STAT PRN; Protocol PRN Reason: Hypoglycemia Protocol Heparin Sodium (Porcine) (Heparin) 5,000 units SC Q12 [facility] Last Admin: 01/20/18 09:30 Dose: 5,000 units Sodium Chloride (Sodium Chloride 0.45%) 1,000 mls @ 100 mls/hr IV .Q10H [facility] Last Admin: 01/20/18 03:52 Dose: 100 mls/hr Daptomycin 400 mg/ Sodium (Chloride) 100 mls @ 100 mls/hr IV Q24H [facility] PRN Reason: Protocol Stop: 01/24/18 21:01 Last Admin: 01/19/18 21:00 Dose: 100 mls/hr Insulin Aspart (Novolog) 0 unit SC Q6 [facility] PRN Reason: Protocol Last Admin: 01/20/18 12:15 Dose: 2 u Insulin Detemir (Levemir) 10 unit SC HS [facility] Last Admin: 01/19/18 21:13 Dose: 10 u Pantoprazole Sodium (Protonix Inj) 40 mg IVP DAILY [facility] Last Admin: 01/20/18 09:30 Dose: 40 mg Tamsulosin HCl (Flomax) 0.4 mg PO DAILY [facility] Last Admin: 01/20/18 09:30 Dose: 0.4 mg - Labs Labs: 01/20/18 14:15 01/20/18 14:15 PT 14.0 SECONDS (9.7-12.2) H 01/13/18 17:42 INR 1.3 01/13/18 17:42 APTT 30 SECONDS (21-34) 01/13/18 17:42 Assessment and Plan (1) CHF (congestive heart failure) Assessment & Plan: EF approx 15-20% with noted severe LV global hypokinesia. Diastolic dysfunction cannot be determined. Moderately reduced systolic function. Refer to complete report. Will review whether patient has had a LifeVest before. Will have to follow up with longterm or patient's family members for more information. Will medically optimize in light of chronic illness. Has been hypotensive- closely monitor BP at this time - Recommendations to continue treating underlying infection. Status: Chronic (2) Diabetes mellitus Assessment & Plan: ISS- low dose Levemir 10 units SC HS Accuchecks Status: Chronic (3) Dementia Assessment & Plan: Recommendation for maintenance therapy Status: Chronic (4) Prophylactic measure Assessment & Plan: GI: Protonix 40mg IV daily DVT: Heparin 5,000 units SC Q12H Status: Acute <Real Thompson - Last Filed: 01/20/18 21:35> Objective - Vital Signs/Intake and Output Vital Signs (last 24 hours): Temp Pulse Resp BP Pulse Ox 98.6 F 75 22 119/44 L 96 01/20/18 20:00 01/20/18 20:00 01/20/18 20:00 01/20/18 19:58 01/20/18 20:00 Intake and Output: 01/20/18 01/21/18 18:59 06:59 Intake Total 2140 655 Output Total 1535 15 Balance 605 640 - Medications Medications: Current Medications Dextrose (Dextrose 50% Inj) 0 ml IV STAT PRN; Protocol PRN Reason: Hypoglycemia Protocol Dextrose (Glutose 15) 0 gm PO ONCE PRN; Protocol PRN Reason: Hypoglycemia Protocol Glucagon (Glucagen Diagnostic Kit) 0 mg IM STAT PRN; Protocol PRN Reason: Hypoglycemia Protocol Heparin Sodium (Porcine) (Heparin) 5,000 units SC Q12 [facility] Last Admin: 01/20/18 21:20 Dose: 5,000 units Sodium Chloride (Sodium Chloride 0.45%) 1,000 mls @ 100 mls/hr IV .Q10H [facility] Last Admin: 01/20/18 13:30 Dose: 100 mls/hr Daptomycin 400 mg/ Sodium (Chloride) 100 mls @ 100 mls/hr IV Q24H [facility] PRN Reason: Protocol Stop: 01/24/18 21:01 Last Admin: 01/19/18 21:00 Dose: 100 mls/hr Insulin Aspart (Novolog) 0 unit SC Q6 [facility] PRN Reason: Protocol Last Admin: 01/20/18 17:49 Dose: 2 u Insulin Detemir (Levemir) 10 unit SC HS [facility] Last Admin: 01/20/18 21:19 Dose: 10 u Pantoprazole Sodium (Protonix Inj) 40 mg IVP DAILY [facility] Last Admin: 01/20/18 09:30 Dose: 40 mg Tamsulosin HCl (Flomax) 0.4 mg PO DAILY [facility] Last Admin: 01/20/18 09:30 Dose: 0.4 mg - Labs Labs: 01/20/18 14:15 01/20/18 14:15 PT 14.0 SECONDS (9.7-12.2) H 01/13/18 17:42 INR 1.3 01/13/18 17:42 APTT 30 SECONDS (21-34) 01/13/18 17:42 Assessment and Plan - Assessment and Plan (Free Text) Assessment: Patient seen and evaluated personally by [place] Plan of care d/w the medical device sales and as documented
--- NOTE | 2018-01-20 15:22 | US ---
Date of service: 01/20/2018 PROCEDURE: Ultrasound of the Kidneys HISTORY: acute kidney injury COMPARISON: 01/13/2018 abdominal ultrasound. 01/15/2018 CT abdomen and pelvis. TECHNIQUE: Sonogram of the kidneys. FINDINGS: RIGHT KIDNEY: Measures: 3.7 x 9.6 cm. Normal in size, contour and echogenicity. No stone, solid mass lesion or hydronephrosis visualized. Upper pole cyst 2.2 x 1.9 cm LEFT KIDNEY: Measures: 5.5 x 10.1 cm. Normal in size, contour and echogenicity. No stone, solid mass lesion or hydronephrosis visualized. Exophytic cyst upper pole left kidney 2.2 x 1.9 cm OTHER FINDINGS: Aneurysmal dilatation of the distal abdominal aorta 2.6 x 3.1 cm IMPRESSION: No significant or acute findings to account for/ related to the clinical presentation. Additional benign and/or incidental findings described above. No significant interval change compared to the prior examination(s).
--- NOTE | 2018-01-20 15:42 | CP.PCM.PN ---
Subjective - Date & Time of Evaluation Date of Evaluation: 01/20/18 Time of Evaluation: 12:15 - Subjective Subjective: clinically same Objective - Vital Signs/Intake and Output Vital Signs (last 24 hours): Temp Pulse Resp BP Pulse Ox 98.2 F 75 20 88/55 L 96 01/20/18 12:00 01/20/18 14:00 01/20/18 14:00 01/20/18 14:00 01/20/18 14:00 Intake and Output: 01/20/18 01/20/18 06:59 18:59 Intake Total 2065 1560 Output Total 1730 Balance 335 1560 - Medications Medications: Current Medications Dextrose (Dextrose 50% Inj) 0 ml IV STAT PRN; Protocol PRN Reason: Hypoglycemia Protocol Dextrose (Glutose 15) 0 gm PO ONCE PRN; Protocol PRN Reason: Hypoglycemia Protocol Glucagon (Glucagen Diagnostic Kit) 0 mg IM STAT PRN; Protocol PRN Reason: Hypoglycemia Protocol Heparin Sodium (Porcine) (Heparin) 5,000 units SC Q12 [facility] Last Admin: 01/20/18 09:30 Dose: 5,000 units Sodium Chloride (Sodium Chloride 0.45%) 1,000 mls @ 100 mls/hr IV .Q10H [facility] Last Admin: 01/20/18 03:52 Dose: 100 mls/hr Daptomycin 400 mg/ Sodium (Chloride) 100 mls @ 100 mls/hr IV Q24H [facility] PRN Reason: Protocol Stop: 01/24/18 21:01 Last Admin: 01/19/18 21:00 Dose: 100 mls/hr Insulin Aspart (Novolog) 0 unit SC Q6 [facility] PRN Reason: Protocol Last Admin: 01/20/18 12:15 Dose: 2 u Insulin Detemir (Levemir) 10 unit SC HS [facility] Last Admin: 01/19/18 21:13 Dose: 10 u Pantoprazole Sodium (Protonix Inj) 40 mg IVP DAILY [facility] Last Admin: 01/20/18 09:30 Dose: 40 mg Tamsulosin HCl (Flomax) 0.4 mg PO DAILY [facility] Last Admin: 01/20/18 09:30 Dose: 0.4 mg - Labs Labs: 01/20/18 14:15 01/20/18 14:15 PT 14.0 SECONDS (9.7-12.2) H 01/13/18 17:42 INR 1.3 08/30/18 17:42 APTT 30 SECONDS (21-34) 01/13/18 17:42 - Constitutional Appears: Non-toxic, No Acute Distress - Head Exam Head Exam: ATRAUMATIC, NORMAL INSPECTION - Eye Exam Eye Exam: EOMI, Normal appearance - ENT Exam ENT Exam: Mucous Membranes Moist - Neck Exam Neck Exam: Normal Inspection - Respiratory Exam Respiratory Exam: Decreased Breath Sounds - Cardiovascular Exam Cardiovascular Exam: +S1, +S2 - GI/Abdominal Exam GI & Abdominal Exam: Diminished Bowel Sounds - Rectal Exam Rectal Exam: Deferred Assessment and Plan (1) JOY (acute kidney injury) Status: Acute (2) Change in mental status Status: Acute (3) Electrolyte imbalance Status: Acute (4) MRSA (methicillin resistant Staphylococcus aureus) septicemia Status: Acute (5) NSTEMI (non-ST elevated myocardial infarction) Status: Acute (6) Prophylactic measure Status: Acute (7) UTI (urinary tract infection) Status: Acute (8) CHF (congestive heart failure) Status: Chronic (9) CKD (chronic kidney disease) Status: Chronic (10) Diabetes mellitus Status: Chronic (11) Afib Status: Acute (12) Anemia Status: Acute (13) Bilateral hydronephrosis Status: Acute (14) CKD (chronic kidney disease) stage 4, GFR 15-29 ml/min Status: Acute (15) Metabolic acidosis Status: Acute (16) Dementia Status: Chronic - Assessment and Plan (Free Text) Plan: pt seen and examined at bedside overnight events noted labs and meds reviewed IV hydration ID followup antibiotics accuchecks tight glycemic control blood pressure control dvt/gi px fup with labs monitor electrolytes
--- NOTE | 2018-01-20 17:44 | CP.PCM.CON ---
History of Present Illness - History of Present Illness History of Present Illness: 72 y/o male [facility] with [facility]. PAtient was drowsy, not able to provide any history. Incidental fingind revealed high creatinine nad high potassium. despite optimal antibiotics pt remains bacteremic PMX: dementia, DM, BPH, CKD Psurg hx: s/p colostomy allergeis: NKDA Review of Systems - Review of Systems Systems not reviewed;Unavailable: Altered Mental Status Past Patient History - Infectious Disease Hx of Infectious Diseases: None - Tetanus Immunizations Tetanus Immunization: Unknown - Past Medical History & Family History Past Medical History?: Yes - Past Social History Smoking Status: Unknown If Ever Smoked - CARDIAC Hx Cardiac Disorders: Yes Hx Hypertension: Yes - PULMONARY Hx Respiratory Disorders: Yes - NEUROLOGICAL Hx Dementia: Yes - HEENT Hx HEENT Problems: No - RENAL Hx Chronic Kidney Disease: No - ENDOCRINE/METABOLIC Hx Diabetes Mellitus Type 2: Yes - HEMATOLOGICAL/ONCOLOGICAL Hx Anemia: Yes - INTEGUMENTARY Hx Dermatological Problems: No - MUSCULOSKELETAL/RHEUMATOLOGICAL Hx Falls: No - GASTROINTESTINAL Hx Gastrointestinal Disorders: No Hx Colostomy: Yes - GENITOURINARY/GYNECOLOGICAL Hx Genitourinary Disorders: No - PSYCHIATRIC Hx Substance Use: No - SURGICAL HISTORY Hx Surgeries: No Other/Comment: unable to obtain informations - ANESTHESIA Hx Anesthesia: No Hx Anesthesia Reactions: No Meds Allergies/Adverse Reactions: Allergies Allergy/AdvReac Type Severity Reaction Status Date / Time No Known Allergies Allergy Verified 01/13/18 17:08 - Medications Medications: Current Medications Dextrose (Dextrose 50% Inj) 0 ml IV STAT PRN; Protocol PRN Reason: Hypoglycemia Protocol Dextrose (Glutose 15) 0 gm PO ONCE PRN; Protocol PRN Reason: Hypoglycemia Protocol Glucagon (Glucagen Diagnostic Kit) 0 mg IM STAT PRN; Protocol PRN Reason: Hypoglycemia Protocol Heparin Sodium (Porcine) (Heparin) 5,000 units SC Q12 [facility] Last Admin: 01/20/18 09:30 Dose: 5,000 units Sodium Chloride (Sodium Chloride 0.45%) 1,000 mls @ 100 mls/hr IV .Q10H [facility] Last Admin: 01/20/18 13:30 Dose: 100 mls/hr Daptomycin 400 mg/ Sodium (Chloride) 100 mls @ 100 mls/hr IV Q24H [facility] PRN Reason: Protocol Stop: 01/24/18 21:01 Last Admin: 01/19/18 21:00 Dose: 100 mls/hr Insulin Aspart (Novolog) 0 unit SC Q6 [facility] PRN Reason: Protocol Last Admin: 01/20/18 12:15 Dose: 2 u Insulin Detemir (Levemir) 10 unit SC HS [facility] Last Admin: 01/19/18 21:13 Dose: 10 u Pantoprazole Sodium (Protonix Inj) 40 mg IVP DAILY [facility] Last Admin: 01/20/18 09:30 Dose: 40 mg Tamsulosin HCl (Flomax) 0.4 mg PO DAILY [facility] Last Admin: 01/20/18 09:30 Dose: 0.4 mg Physical Exam - Constitutional Appears: Confused, Cachectic, Chronically Ill - Head Exam Head Exam: ATRAUMATIC - Eye Exam Eye Exam: absent: Scleral icterus - ENT Exam ENT Exam: Mucous Membranes Dry - Neck Exam Neck exam: Negative for: Lymphadenopathy - Respiratory Exam Respiratory Exam: Decreased Breath Sounds, Rhonchi - Cardiovascular Exam Cardiovascular Exam: REGULAR RHYTHM, +S1, +S2 - GI/Abdominal Exam GI & Abdominal Exam: Diminished Bowel Sounds, Soft Additional comments: Ileostomy + - Rectal Exam Rectal Exam: Deferred - Exam Exam: NORMAL INSPECTION - Extremities Exam Extremities exam: Negative for: pedal edema - Back Exam Back exam: absent: CVA tenderness (L), CVA tenderness (R) - Neurological Exam Neurological exam: Altered - Psychiatric Exam Psychiatric exam: Depressed - Skin Skin Exam: Dry Results - Vital Signs Recent Vital Signs: Last Vital Signs Temp 99.1 F 01/20/18 16:00 Pulse 67 01/20/18 17:00 Resp 20 01/20/18 17:00 BP 86/46 L 01/20/18 17:00 Pulse Ox 95 01/20/18 17:00 - Labs Result Diagrams: 01/20/18 14:15 01/20/18 14:15 Labs: Laboratory Results - last 24 hr 01/13/18 01/19/18 01/19/18 22:34 17:35 23:44 WBC RBC Hgb Hct MCV MCH MCHC RDW Plt Count MPV Neut % (Auto) Lymph % (Auto) [place] % (Auto) Eos % (Auto) Baso % (Auto) Neut # (Auto) Lymph # (Auto) [place] # (Auto) Eos # (Auto) Baso # (Auto) Neutrophils % (Manual) Lymphocytes % (Manual) Monocytes % (Manual) Eosinophils % (Manual) Basophils % (Manual) Platelet Estimate Large Platelets Hypochromasia (manual) Poikilocytosis (manual Anisocytosis (manual) Target Cells Sodium Potassium Chloride Carbon Dioxide Anion Gap BUN Creatinine Est GFR ( Amer) Est GFR (Non-Af Amer) POC Glucose (mg/dL) 167 H 201 H Random Glucose Calcium Phosphorus Magnesium Total Bilirubin AST ALT Alkaline Phosphatase Total Protein Albumin Globulin Albumin/Globulin Ratio Ethanolamine None detected Toxicology Panel see note Methyl Alcohol Level None detected Isopropanol None detected Acetone Level None detected 01/20/18 01/20/18 01/20/18 04:57 05:51 05:51 WBC 10.3 RBC 3.31 L Hgb 9.2 L Hct 28.4 L MCV 85.7 MCH 27.8 MCHC 32.4 L RDW 17.2 H Plt Count 328 MPV 8.7 Neut % (Auto) 82.8 H Lymph % (Auto) 9.9 L [place] % (Auto) 4.3 Eos % (Auto) 2.4 Baso % (Auto) 0.6 Neut # (Auto) 8.5 H Lymph # (Auto) 1.0 [place] # (Auto) 0.4 Eos # (Auto) 0.2 Baso # (Auto) 0.1 Neutrophils % (Manual) 85 H Lymphocytes % (Manual) 7 L Monocytes % (Manual) 3 Eosinophils % (Manual) 4 Basophils % (Manual) 1 Platelet Estimate Normal Large Platelets Present Hypochromasia (manual) Slight Poikilocytosis (manual Slight Anisocytosis (manual) Slight Target Cells Slight Sodium 149 H Potassium 4.0 Chloride 112 H Carbon Dioxide 21 L Anion Gap 20 BUN 59 H Creatinine 2.8 H Est GFR ( Amer) 27 Est GFR (Non-Af Amer) 22 POC Glucose (mg/dL) 215 H Random Glucose 203 H Calcium 9.8 Phosphorus 1.8 L Magnesium 2.2 Total Bilirubin 0.7 AST 37 ALT 34 Alkaline Phosphatase 180 H Total Protein 8.4 H Albumin 4.0 Globulin 4.3 H Albumin/Globulin Ratio 0.9 L Ethanolamine Toxicology Panel Methyl Alcohol Level Isopropanol Acetone Level 01/20/18 01/20/18 01/20/18 11:44 14:15 14:15 WBC 9.9 RBC 3.10 L Hgb 8.6 L Hct 26.5 L MCV 85.6 MCH 27.7 MCHC 32.3 L RDW 17.0 H Plt Count 295 MPV 8.1 Neut % (Auto) 81.8 H Lymph % (Auto) 10.0 L [place] % (Auto) 4.8 Eos % (Auto) 2.4 Baso % (Auto) 1.0 Neut # (Auto) 8.1 H Lymph # (Auto) 1.0 [place] # (Auto) 0.5 Eos # (Auto) 0.2 Baso # (Auto) 0.1 Neutrophils % (Manual) Lymphocytes % (Manual) Monocytes % (Manual) Eosinophils % (Manual) Basophils % (Manual) Platelet Estimate Large Platelets Hypochromasia (manual) Poikilocytosis (manual Anisocytosis (manual) Target Cells Sodium 144 Potassium 4.2 Chloride 110 H Carbon Dioxide 17 L Anion Gap 22 H BUN 62 H Creatinine 3.1 H Est GFR ( Amer) 24 Est GFR (Non-Af Amer) 20 POC Glucose (mg/dL) 218 H Random Glucose 206 H Calcium 9.0 Phosphorus 1.8 L Magnesium 2.2 Total Bilirubin 0.6 AST 20 ALT 30 Alkaline Phosphatase 167 H Total Protein 7.9 Albumin 3.7 Globulin 4.2 H Albumin/Globulin Ratio 0.9 L Ethanolamine Toxicology Panel Methyl Alcohol Level Isopropanol Acetone Level Assessment & Plan (1) MRSA (methicillin resistant Staphylococcus aureus) septicemia Status: Acute - Assessment and Plan (Free Text) Assessment: persistent MRSA bacteremia- source unclear ( all lines are peripheral ) UTI suspected initially but has not cleared consider echo / EMILIANO if feasible will repeat blood cultures follow up cxr poor prognosis from outset
[2018-01-20] MEDS ORDERED: Vancomycin 1 gm/NS 200 ml 1 GM/200 ML BAG IVPB ONE (18:00)
[2018-01-20] MEDS: Insulin Detemir 100 units/ml Vial (Levemir) SC SCH (21:19)
[2018-01-21] MEDS: (Novolog) Insulin Aspart, Recombinant 100 u/ml 10 ml vial SC SCH ×4 (00:27→18:27)
[2018-01-21] MEDS: Sodium Chloride 0.45% 1,000 ML IV SCH ×2 (01:23→10:00)
[2018-01-21 06:51] LABS: BASO # 0.1 K/uL (0.0-0.2); EOS # 0.3 K/uL (0.0-0.7); HEMOGLOBIN 8.1 g/dL (12.0-18.0); LYMPH # 1.6 K/uL (1.0-4.3); LYMPH % 12.3 % (20.0-40.0); MEAN CELL VOLUME 86.6 fL (80.0-94.0); MEAN CORPUSCULAR HEMOGLOBIN 27.3 pg (27.0-31.0); MEAN CORPUSCULAR HGB CONC 31.6 g/dL (33.0-37.0); MEAN PLATELET VOLUME 9.4 fL (7.2-11.7); MONO # 0.5 K/uL (0.0-0.8); MONO % 3.6 % (0.0-10.0); NEUT # 10.5 K/uL (1.8-7.0); NEUT % 81.1 % (50.0-75.0); NRBC % 0.1 % (0.0-2.0); RBC 2.98 Mil/uL (4.40-5.90); RED CELL DISTRIBUTION WIDTH 16.9 % (11.5-14.5)
[2018-01-21 07:06] LABS: ALB/GLOB RATIO 0.9 (1.0-2.1); ALBUMIN 3.7 g/dL (3.5-5.0)
--- NOTE | 2018-01-21 09:23 | RAD ---
Chest x-ray single frontal view History: Pneumonia. Comparison: 01/13/2018 Findings: NG tube extending into the stomach. Deformity of a lower left lateral rib. Biapical pleural thickening with upper lobe granulomatous changes. Nodular density at the right lung base may represent confluence shadows with ribs and vessels. Mild venous congestion. Right hilar prominence. Degenerative changes in the spine and shoulders. Impression: NG tube extending into the stomach. Deformity of a lower left lateral rib. Biapical pleural thickening with upper lobe granulomatous changes. Nodular density at the right lung base may represent confluence shadows with ribs and vessels. Mild venous congestion. Right hilar prominence.
--- NOTE | 2018-01-21 10:07 | CP.PCM.PN ---
Subjective - Date & Time of Evaluation Date of Evaluation: 01/21/18 Time of Evaluation: 14:30 - Subjective Subjective: clinically same Objective - Vital Signs/Intake and Output Vital Signs (last 24 hours): Temp Pulse Resp BP Pulse Ox 98.0 F 59 L 28 H 90/48 L 95 01/21/18 08:00 01/21/18 09:00 01/21/18 09:00 01/21/18 08:19 01/21/18 09:00 Intake and Output: 01/21/18 01/21/18 06:59 18:59 Intake Total 2290 415 Output Total 825 Balance 1465 415 - Medications Medications: Current Medications Dextrose (Dextrose 50% Inj) 0 ml IV STAT PRN; Protocol PRN Reason: Hypoglycemia Protocol Dextrose (Glutose 15) 0 gm PO ONCE PRN; Protocol PRN Reason: Hypoglycemia Protocol Glucagon (Glucagen Diagnostic Kit) 0 mg IM STAT PRN; Protocol PRN Reason: Hypoglycemia Protocol Heparin Sodium (Porcine) (Heparin) 5,000 units SC Q12 [facility] Last Admin: 01/21/18 09:30 Dose: 5,000 units Daptomycin 400 mg/ Sodium (Chloride) 100 mls @ 100 mls/hr IV Q24H [facility] PRN Reason: Protocol Stop: 01/24/18 21:01 Last Admin: 01/19/18 21:00 Dose: 100 mls/hr Sodium Bicarbonate 75 meq/ (Sodium Chloride) 1,000 mls @ 42 mls/hr IV .[id number] [facility] Insulin Aspart (Novolog) 0 unit SC Q6 [facility] PRN Reason: Protocol Last Admin: 01/21/18 06:05 Dose: 1 u Insulin Detemir (Levemir) 10 unit SC HS [facility] Last Admin: 01/20/18 21:19 Dose: 10 u Pantoprazole Sodium (Protonix Inj) 40 mg IVP DAILY [facility] Last Admin: 01/21/18 09:30 Dose: 40 mg Sodium Bicarbonate (Sodium Bicarbonate Tab) 650 mg PO TID [facility] Tamsulosin HCl (Flomax) 0.4 mg PO DAILY [facility] Last Admin: 01/21/18 09:30 Dose: 0.4 mg - Labs Labs: 01/21/18 06:23 01/21/18 06:23 PT 14.0 SECONDS (9.7-12.2) H 01/13/18 17:42 INR 1.3 01/13/18 17:42 APTT 30 SECONDS (21-34) 01/13/18 17:42 - Constitutional Appears: Well - Head Exam Head Exam: ATRAUMATIC, NORMAL INSPECTION, NORMOCEPHALIC - Eye Exam Eye Exam: EOMI, Normal appearance, PERRL Pupil Exam: NORMAL ACCOMODATION, PERRL - ENT Exam ENT Exam: Mucous Membranes Moist, Normal Exam - Neck Exam Neck Exam: Full ROM, Normal Inspection. absent: Lymphadenopathy - Respiratory Exam Respiratory Exam: Decreased Breath Sounds - Cardiovascular Exam Cardiovascular Exam: REGULAR RHYTHM, +S1, +S2 - GI/Abdominal Exam GI & Abdominal Exam: Soft, Diminished Bowel Sounds - Rectal Exam Rectal Exam: Deferred Assessment and Plan (1) JOY (acute kidney injury) Status: Acute (2) Change in mental status Status: Acute (3) Electrolyte imbalance Status: Acute (4) MRSA (methicillin resistant Staphylococcus aureus) septicemia Status: Acute (5) NSTEMI (non-ST elevated myocardial infarction) Status: Acute (6) Prophylactic measure Status: Acute (7) UTI (urinary tract infection) Status: Acute (8) CHF (congestive heart failure) Status: Chronic (9) CKD (chronic kidney disease) Status: Chronic (10) Diabetes mellitus Status: Chronic (11) Afib Status: Acute (12) Anemia Status: Acute (13) Bilateral hydronephrosis Status: Acute (14) CKD (chronic kidney disease) stage 4, GFR 15-29 ml/min Status: Acute (15) Metabolic acidosis Status: Acute (16) Dementia Status: Chronic - Assessment and Plan (Free Text) Plan: pt seen and examined at bedside overnight events noted labs and meds reviewed creatand BUn still high MRSA + ID followup antibiotics accuchecks tight glycemic control blood pressure control dvt/gi px fup with labs monitor electrolytes monitor input and output
[2018-01-21] MEDS: Sodium Bicarbonate 8.4% 75 MEQ in Sodium Chloride 0.45% 925 ML IV SCH (10:45)
--- NOTE | 2018-01-21 11:12 | CP.CCUPN ---
<Gary Rajan - Last Filed: 01/21/18 12:18> CCU Subjective - Physician Review Subjective (Free Text): ICU Progress note Patient seen and examined at bedside. Patient is unable to provide history and does not respond to questions. Patient's eyes are open however he does not respond to commands. 01/21/18 12:19 CCU Objective - Vital Signs / Intake & Output Vital Signs (Last 4 hours): Vital Signs Temp Pulse Resp BP Pulse Ox 01/21/18 09:00 59 L 28 H 95 01/21/18 08:58 71 20 96 01/21/18 08:19 60 29 H 90/48 L 96 01/21/18 08:00 98.0 F 60 28 H 98 01/21/18 07:59 68 25 H 97/47 L 99 Intake and Output (Last 8hrs): Intake & Output 01/20/18 01/21/18 01/21/18 22:59 06:59 14:59 Intake Total 1460 1410 415 Output Total 615 660 Balance 845 750 415 Weight 149 lb 14.629 oz Intake: Intake, IV Amount 800 800 300 Left Hand 800 800 300 Tube Feeding 260 210 115 Other 400 400 Output: Urine 215 260 Urethral (Mendes) 215 260 Stool 400 400 - Physical Exam Head: Positive for: Atraumatic, Normocephalic Pupils: Positive for: PERRL. Negative for: Sluggish, Non-Reactive Extroacular Muscles: Negative for: EOMI (not following commands for EOMI testing ) Conjunctiva: Positive for: Normal. Negative for: Injected, Icteric Mouth: Positive for: Moist Mucous Membranes. Negative for: Drooling Nose (External): Positive for: Atraumatic. Negative for: Abrasion, Contusion, Laceration Nose (Internal): Positive for: No Active Bleeding. Negative for: Epistaxis Neck: Negative for: JVD Respiratory/Chest: Positive for: Clear to Auscultation, Other (no notable rales/ wheezes/ronchi). Negative for: Respiratory Distress, Accessory Muscle Use, Wheezes, Rales, Rhonchi Cardiovascular: Positive for: Normal S1, S2, Peripheal Pulses Present (+2 dorsalis pedis and radials bilaterally). Negative for: Irregular Rhythm, Bradycardic Abdomen: Positive for: Normal Bowel Sounds, Other (ostomy bag at RLQ, ostomy appears pink/patent, no surrounding erythema). Negative for: Distention Genitourinary Male: Positive for: Lesions (penile ulcer noted underneath foreskin), Other (Mendes in place) Upper Extremity: Positive for: NORMAL PULSES. Negative for: Cyanosis, Edema, Swelling, Erythema, Deformity Lower Extremity: Positive for: Normal Inspection, NORMAL PULSES. Negative for: Edema, CALF TENDERNESS, Cyanosis, Swelling, Erythema, Deformity Neurological: Positive for: Motor Func Grossly Intact (not following commands. ) . Negative for: GCS=15 (GCS 9 ([id number])) Skin: Positive for: Warm, Dry Psychiatric: Positive for: Other (Unable to determine since patient is not speaking) - Medications Active Medications: Active Medications Generic Name Dose Route Start Last Admin Trade Name Freq PRN Reason Stop Dose Admin Dextrose 0 ml 01/14/18 15:10 Dextrose 50% Inj IV STAT PRN Hypoglycemia Protocol Protocol Dextrose 0 gm 01/14/18 15:10 Glutose 15 PO ONCE PRN Hypoglycemia Protocol Protocol Glucagon 0 mg 01/14/18 15:10 Glucagen Diagnostic Kit IM STAT PRN Hypoglycemia Protocol Protocol Heparin Sodium (Porcine) 5,000 units 01/19/18 13:30 01/21/18 09:30 Heparin SC 5,000 units Q12 NEL Administration Daptomycin 400 mg/ Sodium 100 mls @ 100 mls/hr 01/19/18 21:00 01/19/18 21:00 Chloride IV 01/24/18 21:01 100 mls/hr Q24H NEL Administration Protocol Sodium Bicarbonate 75 meq/ 1,000 mls @ 42 mls/hr 01/21/18 10:30 Sodium Chloride IV .[id number] NEL Insulin Aspart 0 unit 01/14/18 06:00 01/21/18 06:05 Novolog SC 1 u Q6 NEL Administration Protocol Insulin Detemir 10 unit 01/14/18 22:00 01/20/18 21:19 Levemir SC 10 u HS NEL Administration Pantoprazole Sodium 40 mg 01/18/18 10:00 01/21/18 09:30 Protonix Inj IVP 40 mg DAILY NEL Administration Sodium Bicarbonate 650 mg 01/21/18 10:00 Sodium Bicarbonate Tab PO TID NEL Tamsulosin HCl 0.4 mg 01/14/18 10:00 01/21/18 09:30 Flomax PO 0.4 mg DAILY NEL Administration - Patient Studies Lab Studies: Microbiology Studies 01/18/18 04:30 Blood Culture - Preliminary Blood-Venous Methicillin Resistant S Aureus Gram Stain - Final 01/18/18 05:00 Blood Culture - Preliminary Blood-Venous Gram Positive Cocci Gram Stain - Final Lab Studies 01/21/18 01/21/18 01/21/18 Range/Units 06:23 06:23 05:18 WBC 13.0 H (4.8-10.8) K/uL RBC 2.98 L (4.40-5.90) Mil/uL Hgb 8.1 L (12.0-18.0) g/dL Hct 25.8 L (35.0-51.0) % MCV 86.6 (80.0-94.0) fL MCH 27.3 (27.0-31.0) pg MCHC 31.6 L (33.0-37.0) g/dL RDW 16.9 H (11.5-14.5) % Plt Count 364 (130-400) K/uL MPV 9.4 (7.2-11.7) fL Neut % (Auto) 81.1 H (50.0-75.0) % Lymph % (Auto) 12.3 L (20.0-40.0) % Wirt % (Auto) 3.6 (0.0-10.0) % Eos % (Auto) 2.0 (0.0-4.0) % Baso % (Auto) 1.0 (0.0-2.0) % Neut # (Auto) 10.5 H (1.8-7.0) K/uL Lymph # (Auto) 1.6 (1.0-4.3) K/uL Wirt # (Auto) 0.5 (0.0-0.8) K/uL Eos # (Auto) 0.3 (0.0-0.7) K/uL Baso # (Auto) 0.1 (0.0-0.2) K/uL Sodium 144 (132-148) mmol/L Potassium 4.5 (3.6-5.2) mmol/L Chloride 112 H (98-107) mmol/L Carbon Dioxide 16 L (22-30) mmol/L Anion Gap 20 (10-20) BUN 71 H (9-20) mg/dL Creatinine 3.0 H (0.8-1.5) mg/dL Est GFR ( Amer) 25 Est GFR (Non-Af Amer) 21 POC Glucose (mg/dL) 167 H (65-110) mg/dL Random Glucose 158 H (75-110) mg/dL Calcium 9.0 (8.6-10.4) mg/dl Phosphorus 2.2 L (2.5-4.5) mg/dL Magnesium 2.2 (1.6-2.3) mg/dL Total Bilirubin 0.5 (0.2-1.3) mg/dL AST 24 (17-59) U/L ALT 27 (21-72) U/L Alkaline Phosphatase 166 H (38-126) U/L Total Protein 7.6 (6.3-8.3) g/dL Albumin 3.7 (3.5-5.0) g/dL Globulin 3.9 (2.2-3.9) gm/dL Albumin/Globulin Ratio 0.9 L (1.0-2.1) 01/21/18 01/20/18 01/20/18 Range/Units 00:21 17:46 14:15 WBC (4.8-10.8) K/uL RBC (4.40-5.90) Mil/uL Hgb (12.0-18.0) g/dL Hct (35.0-51.0) % MCV (80.0-94.0) fL MCH (27.0-31.0) pg MCHC (33.0-37.0) g/dL RDW (11.5-14.5) % Plt Count (130-400) K/uL MPV (7.2-11.7) fL Neut % (Auto) (50.0-75.0) % Lymph % (Auto) (20.0-40.0) % Wirt % (Auto) (0.0-10.0) % Eos % (Auto) (0.0-4.0) % Baso % (Auto) (0.0-2.0) % Neut # (Auto) (1.8-7.0) K/uL Lymph # (Auto) (1.0-4.3) K/uL Wirt # (Auto) (0.0-0.8) K/uL Eos # (Auto) (0.0-0.7) K/uL Baso # (Auto) (0.0-0.2) K/uL Sodium 144 (132-148) mmol/L Potassium 4.2 (3.6-5.2) mmol/L Chloride 110 H (98-107) mmol/L Carbon Dioxide 17 L (22-30) mmol/L Anion Gap 22 H (10-20) BUN 62 H (9-20) mg/dL Creatinine 3.1 H (0.8-1.5) mg/dL Est GFR ( Amer) 24 Est GFR (Non-Af Amer) 20 POC Glucose (mg/dL) 218 H 234 H (65-110) mg/dL Random Glucose 206 H (75-110) mg/dL Calcium 9.0 (8.6-10.4) mg/dl Phosphorus 1.8 L (2.5-4.5) mg/dL Magnesium 2.2 (1.6-2.3) mg/dL Total Bilirubin 0.6 (0.2-1.3) mg/dL AST 20 (17-59) U/L ALT 30 (21-72) U/L Alkaline Phosphatase 167 H (38-126) U/L Total Protein 7.9 (6.3-8.3) g/dL Albumin 3.7 (3.5-5.0) g/dL Globulin 4.2 H (2.2-3.9) gm/dL Albumin/Globulin Ratio 0.9 L (1.0-2.1) 01/20/18 01/20/18 Range/Units 14:15 11:44 WBC 9.9 (4.8-10.8) K/uL RBC 3.10 L (4.40-5.90) Mil/uL Hgb 8.6 L (12.0-18.0) g/dL Hct 26.5 L (35.0-51.0) % MCV 85.6 (80.0-94.0) fL MCH 27.7 (27.0-31.0) pg MCHC 32.3 L (33.0-37.0) g/dL RDW 17.0 H (11.5-14.5) % Plt Count 295 (130-400) K/uL MPV 8.1 (7.2-11.7) fL Neut % (Auto) 81.8 H (50.0-75.0) % Lymph % (Auto) 10.0 L (20.0-40.0) % Wirt % (Auto) 4.8 (0.0-10.0) % Eos % (Auto) 2.4 (0.0-4.0) % Baso % (Auto) 1.0 (0.0-2.0) % Neut # (Auto) 8.1 H (1.8-7.0) K/uL Lymph # (Auto) 1.0 (1.0-4.3) K/uL Wirt # (Auto) 0.5 (0.0-0.8) K/uL Eos # (Auto) 0.2 (0.0-0.7) K/uL Baso # (Auto) 0.1 (0.0-0.2) K/uL Sodium (132-148) mmol/L Potassium (3.6-5.2) mmol/L Chloride (98-107) mmol/L Carbon Dioxide (22-30) mmol/L Anion Gap (10-20) BUN (9-20) mg/dL Creatinine (0.8-1.5) mg/dL Est GFR ( Amer) Est GFR (Non-Af Amer) POC Glucose (mg/dL) 218 H (65-110) mg/dL Random Glucose (75-110) mg/dL Calcium (8.6-10.4) mg/dl Phosphorus (2.5-4.5) mg/dL Magnesium (1.6-2.3) mg/dL Total Bilirubin (0.2-1.3) mg/dL AST (17-59) U/L ALT (21-72) U/L Alkaline Phosphatase (38-126) U/L Total Protein (6.3-8.3) g/dL Albumin (3.5-5.0) g/dL Globulin (2.2-3.9) gm/dL Albumin/Globulin Ratio (1.0-2.1) Laboratory Results - last 24 hr 01/20/18 01/20/18 01/20/18 11:44 14:15 14:15 WBC 9.9 RBC 3.10 L Hgb 8.6 L Hct 26.5 L MCV 85.6 MCH 27.7 MCHC 32.3 L RDW 17.0 H Plt Count 295 MPV 8.1 Neut % (Auto) 81.8 H Lymph % (Auto) 10.0 L Wirt % (Auto) 4.8 Eos % (Auto) 2.4 Baso % (Auto) 1.0 Neut # (Auto) 8.1 H Lymph # (Auto) 1.0 Wirt # (Auto) 0.5 Eos # (Auto) 0.2 Baso # (Auto) 0.1 Sodium 144 Potassium 4.2 Chloride 110 H Carbon Dioxide 17 L Anion Gap 22 H BUN 62 H Creatinine 3.1 H Est GFR ( Amer) 24 Est GFR (Non-Af Amer) 20 POC Glucose (mg/dL) 218 H Random Glucose 206 H Calcium 9.0 Phosphorus 1.8 L Magnesium 2.2 Total Bilirubin 0.6 AST 20 ALT 30 Alkaline Phosphatase 167 H Total Protein 7.9 Albumin 3.7 Globulin 4.2 H Albumin/Globulin Ratio 0.9 L 01/20/18 01/21/18 01/21/18 17:46 00:21 05:18 WBC RBC Hgb Hct MCV MCH MCHC RDW Plt Count MPV Neut % (Auto) Lymph % (Auto) Wirt % (Auto) Eos % (Auto) Baso % (Auto) Neut # (Auto) Lymph # (Auto) Wirt # (Auto) Eos # (Auto) Baso # (Auto) Sodium Potassium Chloride Carbon Dioxide Anion Gap BUN Creatinine Est GFR ( Amer) Est GFR (Non-Af Amer) POC Glucose (mg/dL) 234 H 218 H 167 H Random Glucose Calcium Phosphorus Magnesium Total Bilirubin AST ALT Alkaline Phosphatase Total Protein Albumin Globulin Albumin/Globulin Ratio 01/21/18 01/21/18 06:23 06:23 WBC 13.0 H RBC 2.98 L Hgb 8.1 L Hct 25.8 L MCV 86.6 MCH 27.3 MCHC 31.6 L RDW 16.9 H Plt Count 364 MPV 9.4 Neut % (Auto) 81.1 H Lymph % (Auto) 12.3 L Wirt % (Auto) 3.6 Eos % (Auto) 2.0 Baso % (Auto) 1.0 Neut # (Auto) 10.5 H Lymph # (Auto) 1.6 Wirt # (Auto) 0.5 Eos # (Auto) 0.3 Baso # (Auto) 0.1 Sodium 144 Potassium 4.5 Chloride 112 H Carbon Dioxide 16 L Anion Gap 20 BUN 71 H Creatinine 3.0 H Est GFR ( Amer) 25 Est GFR (Non-Af Amer) 21 POC Glucose (mg/dL) Random Glucose 158 H Calcium 9.0 Phosphorus 2.2 L Magnesium 2.2 Total Bilirubin 0.5 AST 24 ALT 27 Alkaline Phosphatase 166 H Total Protein 7.6 Albumin 3.7 Globulin 3.9 Albumin/Globulin Ratio 0.9 L Fingerstick Blood Sugar Results: 167 Critical Care Progress Note - Nutrition Nutrition: Nutrition Category Date Time Status NPO Diet [DIET] Diets 01/14/18 Breakfast Active Assessment/Plan - Assessment and Plan (Free Text) Assessment: 72 year old male with history of dementia, DM, BPH and CKD who was sent in from halfway after he was found altered after he had been refusing to eat. Patient is altered and unable to provide history. Patient was found to be hyperkalemic, and in acute kidney injury with abnormal Cr and BUN. ICU consulted for management of significant electrolyte imbalances. Plan: Neuro: -Altered mental status -Head CT: No acute intracranial pathology. Age-related changes. No significant interval change. -Keep NPO until mental status improves -U Tox: negative -Valproic acid <10.0 Cardiovascular: -Chronic systolic heart failure, admission proBNP 8010 -Troponin 0.0730 -->0.0710 -->0.0550 -Echo notable for EF 15-20%, indeterminate diastolic function, severe LV global hypokinesia, moderately reduced RV systolic fxn, LA mildly dilated, mild MR/TR -HR currently in 60s -Strict I's and O's -Cardiology Dr. Thompson consulted, help appreciated -EMILIANO ordered given blood cultures + MRSA - f/u venous dopplers Pulmonary: -Currently on RA, saturating well. -CXR: no acute disease GI: -Protonix 40mg Q12 IV -Abd US: Limited study; Increased echogenicity of the hepatic parenchymal cortex suggestive for fatty infiltration versus hepatic parenchymal disease; top normal wall thickness of the gallbladder measuring 3 millimeters; mildly ectatic and prominent distal abdominal aorta measuring up to 2.9 centimeters; bilateral renal cysts -Stool occult negative for blood -CT chest abd/pelvis There is marked wall thickening of the urinary bladder with intraluminal urinary bladder air in part due to the presence of an in situ unclamped Mendes catheter however the possibility of a UTI must be considered. There is also on dense appearance of the urothelium in both renal pelves and proximal ureters also suggesting UTI. Clinical correlation with urinalysis recommended. . Bibasilar atelectasis right greater than left. Rule out developing infiltrate. Cardiomegaly. See above discussion for additional details and findings. Right lower quadrant ostomy. Clinical correlation with surgical history recommended Renal: -Acute kidney injury on CKD, improving currently -BUN 219 on admission, 71 today -Cr 10.7 on admission, 3.0 today. -Serum osmolarity 410, Urine osmolality 475 -Ur random Cr 94 Urine Na 64 urine urea nitrogen 476 -Initial Na 156, K 8 --> today: Na 144, K 4.5 - Renal US no acute findings. - I&Os 2440cc - Urologist Dr. Chiu consulted ID -WBCs 13.0 -ID (Dr. Barnett) consulted, help appreciated -switched to Daptomycin Q48 hours given upward trend of Creatinine -01/13 Blood cx x2 positive for MRSA, 1x blood cx also positive for E faecalis, urine culture positive for MRSA > 100k CFUs -01/18 Blood cx positive for MRSA -UA: 3+ LE 3+ blood 2+ protein -f/u Vanco level - Started on bicarb drip and Bicarb 650mg TID Heme -Hb currently stable -no signs of acute bleeding and stool occult negative Endo -continue Levemir 10unit SC HS, continue accuchecks PPX: Heparin 5000 unit SC Q12, Protonix 40mg IV Dispo: Transferred to Telemetry. <Nevaeh Hernandes - Last Filed: 01/21/18 18:09> CCU Objective - Vital Signs / Intake & Output Vital Signs (Last 4 hours): Vital Signs Temp Pulse Resp BP Pulse Ox 01/21/18 16:00 98.4 F 57 L 28 H 97 01/21/18 15:59 57 L 28 H 111/40 L 97 01/21/18 15:00 67 14 98 01/21/18 14:59 65 20 104/28 L 96 Intake and Output (Last 8hrs): Intake & Output 01/21/18 01/21/18 01/21/18 06:59 14:59 22:59 Intake Total 1410 883 256 Output Total 660 470 180 Balance 750 413 76 Weight 149 lb 14.629 oz Intake: Intake, IV Amount 800 568 126 Left Hand 800 568 126 Tube Feeding 210 315 130 Other 400 Output: Urine 260 470 180 Urethral (Mendes) 260 470 180 Stool 400 - Medications Active Medications: Active Medications Generic Name Dose Route Start Last Admin Trade Name Freq PRN Reason Stop Dose Admin Dextrose 0 ml 01/14/18 15:10 Dextrose 50% Inj IV STAT PRN Hypoglycemia Protocol Protocol Dextrose 0 gm 01/14/18 15:10 Glutose 15 PO ONCE PRN Hypoglycemia Protocol Protocol Glucagon 0 mg 01/14/18 15:10 Glucagen Diagnostic Kit IM STAT PRN Hypoglycemia Protocol Protocol Heparin Sodium (Porcine) 5,000 units 01/19/18 13:30 01/21/18 09:30 Heparin SC 5,000 units Q12 NEL Administration Daptomycin 400 mg/ Sodium 100 mls @ 100 mls/hr 01/19/18 21:00 01/19/18 21:00 Chloride IV 01/24/18 21:01 100 mls/hr Q24H NEL Administration Protocol Sodium Bicarbonate 75 meq/ 1,000 mls @ 42 mls/hr 01/21/18 10:30 01/21/18 10: 45 Sodium Chloride IV 42 mls/hr .[id number] NEL Administration Insulin Aspart 0 unit 01/14/18 06:00 01/21/18 11:31 Novolog SC 1 u Q6 NEL Administration Protocol Insulin Detemir 10 unit 01/14/18 22:00 01/20/18 21:19 Levemir SC 10 u HS NEL Administration Pantoprazole Sodium 40 mg 01/18/18 10:00 01/21/18 09:30 Protonix Inj IVP 40 mg DAILY NEL Administration Sodium Bicarbonate 650 mg 01/21/18 10:00 01/21/18 17:43 Sodium Bicarbonate Tab PO 650 mg TID NEL Administration Tamsulosin HCl 0.4 mg 01/14/18 10:00 01/21/18 09:30 Flomax PO 0.4 mg DAILY NEL Administration - Patient Studies Lab Studies: Microbiology Studies 01/18/18 04:30 Blood Culture - Final Blood-Venous Methicillin Resistant S Aureus Gram Stain - Final Lab Studies 01/21/18 01/21/18 01/21/18 Range/Units 11:25 11:03 06:23 WBC (4.8-10.8) K/uL RBC (4.40-5.90) Mil/uL Hgb (12.0-18.0) g/dL Hct (35.0-51.0) % MCV (80.0-94.0) fL MCH (27.0-31.0) pg MCHC (33.0-37.0) g/dL RDW (11.5-14.5) % Plt Count (130-400) K/uL MPV (7.2-11.7) fL Neut % (Auto) (50.0-75.0) % Lymph % (Auto) (20.0-40.0) % Wirt % (Auto) (0.0-10.0) % Eos % (Auto) (0.0-4.0) % Baso % (Auto) (0.0-2.0) % Neut # (Auto) (1.8-7.0) K/uL Lymph # (Auto) (1.0-4.3) K/uL Wirt # (Auto) (0.0-0.8) K/uL Eos # (Auto) (0.0-0.7) K/uL Baso # (Auto) (0.0-0.2) K/uL Sodium 144 (132-148) mmol/L Potassium 4.5 (3.6-5.2) mmol/L Chloride 112 H (98-107) mmol/L Carbon Dioxide 16 L (22-30) mmol/L Anion Gap 20 (10-20) BUN 71 H (9-20) mg/dL Creatinine 3.0 H (0.8-1.5) mg/dL Est GFR ( Amer) 25 Est GFR (Non-Af Amer) 21 POC Glucose (mg/dL) 199 H (65-110) mg/dL Random Glucose 158 H (75-110) mg/dL Calcium 9.0 (8.6-10.4) mg/dl Phosphorus 2.2 L (2.5-4.5) mg/dL Magnesium 2.2 (1.6-2.3) mg/dL Total Bilirubin 0.5 (0.2-1.3) mg/dL AST 24 (17-59) U/L ALT 27 (21-72) U/L Alkaline Phosphatase 166 H (38-126) U/L Total Protein 7.6 (6.3-8.3) g/dL Albumin 3.7 (3.5-5.0) g/dL Globulin 3.9 (2.2-3.9) gm/dL Albumin/Globulin Ratio 0.9 L (1.0-2.1) Random Vancomycin 10.4 ug/mL 01/21/18 01/21/18 01/21/18 Range/Units 06:23 05:18 00:21 WBC 13.0 H (4.8-10.8) K/uL RBC 2.98 L (4.40-5.90) Mil/uL Hgb 8.1 L (12.0-18.0) g/dL Hct 25.8 L (35.0-51.0) % MCV 86.6 (80.0-94.0) fL MCH 27.3 (27.0-31.0) pg MCHC 31.6 L (33.0-37.0) g/dL RDW 16.9 H (11.5-14.5) % Plt Count 364 (130-400) K/uL MPV 9.4 (7.2-11.7) fL Neut % (Auto) 81.1 H (50.0-75.0) % Lymph % (Auto) 12.3 L (20.0-40.0) % Wirt % (Auto) 3.6 (0.0-10.0) % Eos % (Auto) 2.0 (0.0-4.0) % Baso % (Auto) 1.0 (0.0-2.0) % Neut # (Auto) 10.5 H (1.8-7.0) K/uL Lymph # (Auto) 1.6 (1.0-4.3) K/uL Wirt # (Auto) 0.5 (0.0-0.8) K/uL Eos # (Auto) 0.3 (0.0-0.7) K/uL Baso # (Auto) 0.1 (0.0-0.2) K/uL Sodium (132-148) mmol/L Potassium (3.6-5.2) mmol/L Chloride (98-107) mmol/L Carbon Dioxide (22-30) mmol/L Anion Gap (10-20) BUN (9-20) mg/dL Creatinine (0.8-1.5) mg/dL Est GFR ( Amer) Est GFR (Non-Af Amer) POC Glucose (mg/dL) 167 H 218 H (65-110) mg/dL Random Glucose (75-110) mg/dL Calcium (8.6-10.4) mg/dl Phosphorus (2.5-4.5) mg/dL Magnesium (1.6-2.3) mg/dL Total Bilirubin (0.2-1.3) mg/dL AST (17-59) U/L ALT (21-72) U/L Alkaline Phosphatase (38-126) U/L Total Protein (6.3-8.3) g/dL Albumin (3.5-5.0) g/dL Globulin (2.2-3.9) gm/dL Albumin/Globulin Ratio (1.0-2.1) Random Vancomycin ug/mL 01/20/18 Range/Units 17:46 WBC (4.8-10.8) K/uL RBC (4.40-5.90) Mil/uL Hgb (12.0-18.0) g/dL Hct (35.0-51.0) % MCV (80.0-94.0) fL MCH (27.0-31.0) pg MCHC (33.0-37.0) g/dL RDW (11.5-14.5) % Plt Count (130-400) K/uL MPV (7.2-11.7) fL Neut % (Auto) (50.0-75.0) % Lymph % (Auto) (20.0-40.0) % Wirt % (Auto) (0.0-10.0) % Eos % (Auto) (0.0-4.0) % Baso % (Auto) (0.0-2.0) % Neut # (Auto) (1.8-7.0) K/uL Lymph # (Auto) (1.0-4.3) K/uL Wirt # (Auto) (0.0-0.8) K/uL Eos # (Auto) (0.0-0.7) K/uL Baso # (Auto) (0.0-0.2) K/uL Sodium (132-148) mmol/L Potassium (3.6-5.2) mmol/L Chloride (98-107) mmol/L Carbon Dioxide (22-30) mmol/L Anion Gap (10-20) BUN (9-20) mg/dL Creatinine (0.8-1.5) mg/dL Est GFR ( Amer) Est GFR (Non-Af Amer) POC Glucose (mg/dL) 234 H (65-110) mg/dL Random Glucose (75-110) mg/dL Calcium (8.6-10.4) mg/dl Phosphorus (2.5-4.5) mg/dL Magnesium (1.6-2.3) mg/dL Total Bilirubin (0.2-1.3) mg/dL AST (17-59) U/L ALT (21-72) U/L Alkaline Phosphatase (38-126) U/L Total Protein (6.3-8.3) g/dL Albumin (3.5-5.0) g/dL Globulin (2.2-3.9) gm/dL Albumin/Globulin Ratio (1.0-2.1) Random Vancomycin ug/mL Laboratory Results - last 24 hr 01/20/18 01/21/18 01/21/18 17:46 00:21 05:18 WBC RBC Hgb Hct MCV MCH MCHC RDW Plt Count MPV Neut % (Auto) Lymph % (Auto) Wirt % (Auto) Eos % (Auto) Baso % (Auto) Neut # (Auto) Lymph # (Auto) Wirt # (Auto) Eos # (Auto) Baso # (Auto) Sodium Potassium Chloride Carbon Dioxide Anion Gap BUN Creatinine Est GFR ( Amer) Est GFR (Non-Af Amer) POC Glucose (mg/dL) 234 H 218 H 167 H Random Glucose Calcium Phosphorus Magnesium Total Bilirubin AST ALT Alkaline Phosphatase Total Protein Albumin Globulin Albumin/Globulin Ratio Random Vancomycin 01/21/18 01/21/18 01/21/18 06:23 06:23 11:03 WBC 13.0 H RBC 2.98 L Hgb 8.1 L Hct 25.8 L MCV 86.6 MCH 27.3 MCHC 31.6 L RDW 16.9 H Plt Count 364 MPV 9.4 Neut % (Auto) 81.1 H Lymph % (Auto) 12.3 L Wirt % (Auto) 3.6 Eos % (Auto) 2.0 Baso % (Auto) 1.0 Neut # (Auto) 10.5 H Lymph # (Auto) 1.6 Wirt # (Auto) 0.5 Eos # (Auto) 0.3 Baso # (Auto) 0.1 Sodium 144 Potassium 4.5 Chloride 112 H Carbon Dioxide 16 L Anion Gap 20 BUN 71 H Creatinine 3.0 H Est GFR ( Amer) 25 Est GFR (Non-Af Amer) 21 POC Glucose (mg/dL) Random Glucose 158 H Calcium 9.0 Phosphorus 2.2 L Magnesium 2.2 Total Bilirubin 0.5 AST 24 ALT 27 Alkaline Phosphatase 166 H Total Protein 7.6 Albumin 3.7 Globulin 3.9 Albumin/Globulin Ratio 0.9 L Random Vancomycin 10.4 01/21/18 11:25 WBC RBC Hgb Hct MCV MCH MCHC RDW Plt Count MPV Neut % (Auto) Lymph % (Auto) Wirt % (Auto) Eos % (Auto) Baso % (Auto) Neut # (Auto) Lymph # (Auto) Wirt # (Auto) Eos # (Auto) Baso # (Auto) Sodium Potassium Chloride Carbon Dioxide Anion Gap BUN Creatinine Est GFR ( Amer) Est GFR (Non-Af Amer) POC Glucose (mg/dL) 199 H Random Glucose Calcium Phosphorus Magnesium Total Bilirubin AST ALT Alkaline Phosphatase Total Protein Albumin Globulin Albumin/Globulin Ratio Random Vancomycin Critical Care Progress Note - Nutrition Nutrition: Nutrition Category Date Time Status NPO Diet [DIET] Diets 01/14/18 Breakfast Active Assessment/Plan - Assessment and Plan (Free Text) Plan: Above patient seen and examined at bedside. patient wiht MRSA bacteremia, CKD and dehydration -MRSA sepsis: repeat Bcx, r/o DVT, r/o EMILIANO IE, continue abx as per ID -Dehydrsation: resolved -metabolic acidosis: continue oral and IV bicarb -CKD; Cr near baseline -Patient has basline dementia -obtain speach and swalloe -currently on NG tube -Patient remains hemodynamically stable - Date & Time Date: 01/21/18 Time: 18:09
--- NOTE | 2018-01-21 13:38 | CP.PCM.PN ---
Subjective - Date & Time of Evaluation Date of Evaluation: 01/21/18 Time of Evaluation: 13:31 - Subjective Subjective: Asked to see pt. Regarding elective suprapubic cystotomy Pt was admitted from group home pt is unresponsive he has a geronimo in place. confirmed to be in good position on ct he is presently unresponsive and cannot cooperate with verbal comands he is on Heparin. A PT is not a canidate for ellective SP cystotomy at this time. When pt is stabalized,off heparin and you fell can procede with iv sedation or is capable of cooperating with procedure please notify me Apple Objective - Vital Signs/Intake and Output Vital Signs (last 24 hours): Temp Pulse Resp BP Pulse Ox 98.0 F 76 13 132/49 L 98 01/21/18 08:00 01/21/18 12:00 01/21/18 12:00 01/21/18 11:59 01/21/18 12:00 Intake and Output: 01/21/18 01/21/18 06:59 18:59 Intake Total 2290 719 Output Total 825 350 Balance 1465 369 - Medications Medications: Current Medications Dextrose (Dextrose 50% Inj) 0 ml IV STAT PRN; Protocol PRN Reason: Hypoglycemia Protocol Dextrose (Glutose 15) 0 gm PO ONCE PRN; Protocol PRN Reason: Hypoglycemia Protocol Glucagon (Glucagen Diagnostic Kit) 0 mg IM STAT PRN; Protocol PRN Reason: Hypoglycemia Protocol Heparin Sodium (Porcine) (Heparin) 5,000 units SC Q12 [facility] Last Admin: 01/21/18 09:30 Dose: 5,000 units Daptomycin 400 mg/ Sodium (Chloride) 100 mls @ 100 mls/hr IV Q24H [facility] PRN Reason: Protocol Stop: 01/24/18 21:01 Last Admin: 01/19/18 21:00 Dose: 100 mls/hr Sodium Bicarbonate 75 meq/ (Sodium Chloride) 1,000 mls @ 42 mls/hr IV .[id number] [facility] Last Admin: 01/21/18 10:45 Dose: 42 mls/hr Insulin Aspart (Novolog) 0 unit SC Q6 NEL PRN Reason: Protocol Last Admin: 01/21/18 11:31 Dose: 1 u Insulin Detemir (Levemir) 10 unit SC HS [facility] Last Admin: 01/20/18 21:19 Dose: 10 u Pantoprazole Sodium (Protonix Inj) 40 mg IVP DAILY [facility] Last Admin: 01/21/18 09:30 Dose: 40 mg Sodium Bicarbonate (Sodium Bicarbonate Tab) 650 mg PO TID [facility] Last Admin: 01/21/18 10:39 Dose: 650 mg Tamsulosin HCl (Flomax) 0.4 mg PO DAILY [facility] Last Admin: 01/21/18 09:30 Dose: 0.4 mg - Labs Labs: 01/21/18 06:23 01/21/18 06:23 PT 14.0 SECONDS (9.7-12.2) H 01/13/18 17:42 INR 1.3 01/13/18 17:42 APTT 30 SECONDS (21-34) 01/13/18 17:42
--- NOTE | 2018-01-21 16:25 | CP.PCM.PN ---
Subjective - Date & Time of Evaluation Date of Evaluation: 01/21/18 Time of Evaluation: 08:00 - Subjective Subjective: persistent MRSA bacteremia- likely from urine but blood c/s not cleared yet on board IV rx in progress Objective - Vital Signs/Intake and Output Vital Signs (last 24 hours): Temp Pulse Resp BP Pulse Ox 98.0 F 76 13 132/49 L 98 01/21/18 08:00 01/21/18 12:00 01/21/18 12:00 01/21/18 11:59 01/21/18 12:00 Intake and Output: 01/21/18 01/21/18 06:59 18:59 Intake Total 2290 719 Output Total 825 350 Balance 1465 369 - Medications Medications: Current Medications Dextrose (Dextrose 50% Inj) 0 ml IV STAT PRN; Protocol PRN Reason: Hypoglycemia Protocol Dextrose (Glutose 15) 0 gm PO ONCE PRN; Protocol PRN Reason: Hypoglycemia Protocol Glucagon (Glucagen Diagnostic Kit) 0 mg IM STAT PRN; Protocol PRN Reason: Hypoglycemia Protocol Heparin Sodium (Porcine) (Heparin) 5,000 units SC Q12 [facility] Last Admin: 01/21/18 09:30 Dose: 5,000 units Daptomycin 400 mg/ Sodium (Chloride) 100 mls @ 100 mls/hr IV Q24H [facility] PRN Reason: Protocol Stop: 01/24/18 21:01 Last Admin: 01/19/18 21:00 Dose: 100 mls/hr Sodium Bicarbonate 75 meq/ (Sodium Chloride) 1,000 mls @ 42 mls/hr IV .[id number] [facility] Last Admin: 01/21/18 10:45 Dose: 42 mls/hr Insulin Aspart (Novolog) 0 unit SC Q6 [facility] PRN Reason: Protocol Last Admin: 01/21/18 11:31 Dose: 1 u Insulin Detemir (Levemir) 10 unit SC HS [facility] Last Admin: 01/20/18 21:19 Dose: 10 u Pantoprazole Sodium (Protonix Inj) 40 mg IVP DAILY [facility] Last Admin: 01/21/18 09:30 Dose: 40 mg Sodium Bicarbonate (Sodium Bicarbonate Tab) 650 mg PO TID [facility] Last Admin: 01/21/18 14:08 Dose: 650 mg Tamsulosin HCl (Flomax) 0.4 mg PO DAILY [facility] Last Admin: 01/21/18 09:30 Dose: 0.4 mg - Labs Labs: 01/21/18 06:23 01/21/18 06:23 PT 14.0 SECONDS (9.7-12.2) H 01/13/18 17:42 INR 1.3 01/13/18 17:42 APTT 30 SECONDS (21-34) 01/13/18 17:42 - Constitutional Appears: Cachectic, Chronically Ill - Head Exam Head Exam: NORMOCEPHALIC - Eye Exam Eye Exam: PERRL - ENT Exam ENT Exam: Normal External Ear Exam - Neck Exam Neck Exam: absent: Lymphadenopathy - Respiratory Exam Respiratory Exam: Decreased Breath Sounds - Cardiovascular Exam Cardiovascular Exam: REGULAR RHYTHM - GI/Abdominal Exam GI & Abdominal Exam: Distended, Soft - Rectal Exam Rectal Exam: Deferred - Exam Exam: NORMAL INSPECTION - Extremities Exam Extremities Exam: absent: Pedal Edema - Back Exam Back Exam: absent: CVA tenderness (L), CVA tenderness (R) - Neurological Exam Neurological Exam: Altered Assessment and Plan (1) MRSA (methicillin resistant Staphylococcus aureus) septicemia Status: Acute - Assessment and Plan (Free Text) Assessment: MRSA bacteremia / sepsis UTI suspected initially but has not cleared consider echo / EMILIANO if feasible will repeat blood cultures
--- NOTE | 2018-01-21 16:47 | CP.PCM.PN ---
<Paris Diamond - Last Filed: 01/21/18 16:44> Subjective - Date & Time of Evaluation Date of Evaluation: 01/21/18 Time of Evaluation: 14:40 - Subjective Subjective: Cardiology Progress Note- Dr. Thompson's service Patient seen and examined. Patient remains altered. Cannot obtain an ROS at this time due to presentation. Objective - Vital Signs/Intake and Output Vital Signs (last 24 hours): Temp Pulse Resp BP Pulse Ox 98.4 F 57 L 28 H 111/40 L 97 01/21/18 16:00 01/21/18 16:00 01/21/18 16:00 01/21/18 15:59 01/21/18 16:00 Intake and Output: 01/21/18 01/21/18 06:59 18:59 Intake Total 2290 1052 Output Total 825 590 Balance 1465 462 - Medications Medications: Current Medications Dextrose (Dextrose 50% Inj) 0 ml IV STAT PRN; Protocol PRN Reason: Hypoglycemia Protocol Dextrose (Glutose 15) 0 gm PO ONCE PRN; Protocol PRN Reason: Hypoglycemia Protocol Glucagon (Glucagen Diagnostic Kit) 0 mg IM STAT PRN; Protocol PRN Reason: Hypoglycemia Protocol Heparin Sodium (Porcine) (Heparin) 5,000 units SC Q12 [facility] Last Admin: 01/21/18 09:30 Dose: 5,000 units Daptomycin 400 mg/ Sodium (Chloride) 100 mls @ 100 mls/hr IV Q24H [facility] PRN Reason: Protocol Stop: 01/24/18 21:01 Last Admin: 01/19/18 21:00 Dose: 100 mls/hr Sodium Bicarbonate 75 meq/ (Sodium Chloride) 1,000 mls @ 42 mls/hr IV .[id number] [facility] Last Admin: 01/21/18 10:45 Dose: 42 mls/hr Insulin Aspart (Novolog) 0 unit SC Q6 [facility] PRN Reason: Protocol Last Admin: 01/21/18 11:31 Dose: 1 u Insulin Detemir (Levemir) 10 unit SC HS [facility] Last Admin: 01/20/18 21:19 Dose: 10 u Pantoprazole Sodium (Protonix Inj) 40 mg IVP DAILY [facility] Last Admin: 01/21/18 09:30 Dose: 40 mg Sodium Bicarbonate (Sodium Bicarbonate Tab) 650 mg PO TID [facility] Last Admin: 01/21/18 14:08 Dose: 650 mg Tamsulosin HCl (Flomax) 0.4 mg PO DAILY [facility] Last Admin: 01/21/18 09:30 Dose: 0.4 mg - Labs Labs: 01/21/18 06:23 01/21/18 06:23 PT 14.0 SECONDS (9.7-12.2) H 01/13/18 17:42 INR 1.3 01/13/18 17:42 APTT 30 SECONDS (21-34) 01/13/18 17:42 - Constitutional Appears: Non-toxic, Confused, Chronically Ill - Head Exam Head Exam: ATRAUMATIC - Eye Exam Eye Exam: EOMI - ENT Exam ENT Exam: Mucous Membranes Moist - Neck Exam Neck Exam: Full ROM - Respiratory Exam Respiratory Exam: NORMAL BREATHING PATTERN - Cardiovascular Exam Cardiovascular Exam: +S1, +S2. absent: JVD - GI/Abdominal Exam GI & Abdominal Exam: Soft, Normal Bowel Sounds - Extremities Exam Extremities Exam: Full ROM - Neurological Exam Neurological Exam: Altered - Skin Skin Exam: Dry, Warm Assessment and Plan (1) CHF (congestive heart failure) Status: Chronic (2) Diabetes mellitus Status: Chronic (3) Electrolyte imbalance Status: Acute (4) Dementia Status: Chronic (5) Prophylactic measure Status: Acute - Assessment and Plan (Free Text) Assessment: CHF (congestive heart failure) Assessment & Plan: EF approx 15-20% with noted severe LV global hypokinesia. Diastolic dysfunction cannot be determined. Moderately reduced systolic function. Refer to complete report. Will review whether patient has had a LifeVest before. Will have to follow up with [facility] or patient's family members for more information. Will medically optimize in light of chronic illness. Has been hypotensive- closely monitor BP at this time - Recommendations to continue treating underlying infection. Continue Status: Chronic Bacteremia Assessment & Plan: MRSA positive blood/urine cultures. Repeat cultures. On antibiotic therapy ID on the case. Status: Chronic Diabetes mellitus Assessment & Plan: On ISS Accuchecks Continued management Status: Chronic Electrolyte imbalance Assessment & Plan: Monitor. Replete as needed Status: Acute Dementia Assessment & Plan: May need some form of maintenance therapy. Continued management per primary Status: Chronic Prophylactic measure Assessment & Plan: PPI 40 mg IV daily SCDs Heparin 5,000 SC Q12 Status: Acute <Real Thompson - Last Filed: 09/07/18 22:18> Objective - Vital Signs/Intake and Output Vital Signs (last 24 hours): Temp Pulse Resp BP Pulse Ox 98.4 F 69 17 128/47 L 96 01/21/18 20:00 01/21/18 18:00 01/21/18 18:00 01/21/18 17:59 01/21/18 18:00 Intake and Output: 01/21/18 01/22/18 18:59 06:59 Intake Total 1226 Output Total 700 Balance 526 - Medications Medications: Current Medications Dextrose (Dextrose 50% Inj) 0 ml IV STAT PRN; Protocol PRN Reason: Hypoglycemia Protocol Dextrose (Glutose 15) 0 gm PO ONCE PRN; Protocol PRN Reason: Hypoglycemia Protocol Glucagon (Glucagen Diagnostic Kit) 0 mg IM STAT PRN; Protocol PRN Reason: Hypoglycemia Protocol Heparin Sodium (Porcine) (Heparin) 5,000 units SC Q12 [facility] Last Admin: 01/21/18 21:30 Dose: 5,000 units Daptomycin 400 mg/ Sodium (Chloride) 100 mls @ 100 mls/hr IV Q24H [facility] PRN Reason: Protocol Stop: 01/24/18 21:01 Last Admin: 01/19/18 21:00 Dose: 100 mls/hr Sodium Bicarbonate 75 meq/ (Sodium Chloride) 1,000 mls @ 42 mls/hr IV .[id number] [facility] Last Admin: 01/21/18 10:45 Dose: 42 mls/hr Insulin Aspart (Novolog) 0 unit SC Q6 [facility] PRN Reason: Protocol Last Admin: 01/21/18 18:27 Dose: 2 u Insulin Detemir (Levemir) 10 unit SC HS [facility] Last Admin: 01/21/18 21:29 Dose: 10 u Pantoprazole Sodium (Protonix Inj) 40 mg IVP DAILY [facility] Last Admin: 01/21/18 09:30 Dose: 40 mg Sodium Bicarbonate (Sodium Bicarbonate Tab) 650 mg PO TID [facility] Last Admin: 01/21/18 17:43 Dose: 650 mg Tamsulosin HCl (Flomax) 0.4 mg PO DAILY [facility] Last Admin: 01/21/18 09:30 Dose: 0.4 mg - Labs Labs: 01/21/18 06:23 01/21/18 06:23 PT 14.0 SECONDS (9.7-12.2) H 01/13/18 17:42 INR 1.3 01/13/18 17:42 APTT 30 SECONDS (21-34) 01/13/18 17:42 Assessment and Plan - Assessment and Plan (Free Text) Assessment: Patient seen and evaluated personally by me. Plan of care d/w the resident and as documented
[2018-01-21] MEDS: Insulin Detemir 100 units/ml Vial (Levemir) SC SCH (21:29)
[2018-01-22] MEDS: (Novolog) Insulin Aspart, Recombinant 100 u/ml 10 ml vial SC SCH ×4 (06:02→18:06)
[2018-01-22 06:20] LABS: BASO # 0.1 K/uL (0.0-0.2); BASO % 0.7 % (0.0-2.0); EOS # 0.2 K/uL (0.0-0.7); HEMOGLOBIN 7.9 g/dL (12.0-18.0); LYMPH % 11.3 % (20.0-40.0); MEAN CELL VOLUME 84.4 fL (80.0-94.0); MEAN CORPUSCULAR HEMOGLOBIN 27.7 pg (27.0-31.0); MEAN CORPUSCULAR HGB CONC 32.8 g/dL (33.0-37.0); MEAN PLATELET VOLUME 8.7 fL (7.2-11.7); MONO # 0.6 K/uL (0.0-0.8); MONO % 6.4 % (0.0-10.0); NEUT # 7.1 K/uL (1.8-7.0); NEUT % 79.6 % (50.0-75.0); RBC 2.84 Mil/uL (4.40-5.90); WHITE BLOOD COUNT 8.9 K/uL (4.8-10.8)
[2018-01-22 06:47] LABS: ALB/GLOB RATIO 0.8 (1.0-2.1); ALBUMIN 3.4 g/dL (3.5-5.0); CALCIUM 8.8 mg/dl (8.6-10.4)
[2018-01-22] MEDS: Sodium Bicarbonate 8.4% 75 MEQ in Sodium Chloride 0.45% 925 ML IV SCH (10:24)
[2018-01-22] MEDS: Insulin Detemir 100 units/ml Vial (Levemir) SC SCH (22:56)
--- NOTE | 2018-01-22 23:23 | CP.PCM.PN ---
Subjective - Date & Time of Evaluation Date of Evaluation: 01/22/18 Time of Evaluation: 12:30 - Subjective Subjective: clinically same Objective - Vital Signs/Intake and Output Vital Signs (last 24 hours): Temp Pulse Resp BP Pulse Ox 97.3 F L 64 18 113/35 L 96 01/22/18 20:00 01/22/18 20:00 01/22/18 20:00 01/22/18 20:00 01/22/18 20:00 Intake and Output: 01/22/18 01/23/18 18:59 06:59 Intake Total 1672 460 Output Total 1320 80 Balance 352 380 - Medications Medications: Current Medications Dextrose (Dextrose 50% Inj) 0 ml IV STAT PRN; Protocol PRN Reason: Hypoglycemia Protocol Dextrose (Glutose 15) 0 gm PO ONCE PRN; Protocol PRN Reason: Hypoglycemia Protocol Glucagon (Glucagen Diagnostic Kit) 0 mg IM STAT PRN; Protocol PRN Reason: Hypoglycemia Protocol Heparin Sodium (Porcine) (Heparin) 5,000 units SC Q12H [facility] Last Admin: 01/22/18 22:52 Dose: 5,000 units Daptomycin 400 mg/ Sodium (Chloride) 100 mls @ 100 mls/hr IV Q24H [facility] PRN Reason: Protocol Stop: 01/24/18 21:01 Last Admin: 01/19/18 21:00 Dose: 100 mls/hr Sodium Bicarbonate 75 meq/ (Sodium Chloride) 1,000 mls @ 42 mls/hr IV .[id number] [facility] Last Admin: 01/22/18 10:24 Dose: 42 mls/hr Daptomycin 400 mg/ Sodium (Chloride) 100 mls @ 100 mls/hr IV Q24H [facility] PRN Reason: Protocol Stop: 01/27/18 10:01 Last Admin: 01/22/18 10:22 Dose: 100 mls/hr Insulin Aspart (Novolog) 0 unit SC Q6 [facility] PRN Reason: Protocol Last Admin: 01/22/18 18:06 Dose: 1 u Insulin Detemir (Levemir) 10 unit SC HS [facility] Last Admin: 01/22/18 22:56 Dose: 10 u Pantoprazole Sodium (Protonix Inj) 40 mg IVP DAILY [facility] Last Admin: 01/22/18 10:25 Dose: 40 mg Sodium Bicarbonate (Sodium Bicarbonate Tab) 650 mg PO TID [facility] Last Admin: 01/22/18 18:07 Dose: 650 mg Tamsulosin HCl (Flomax) 0.4 mg PO DAILY [facility] Last Admin: 01/22/18 10:23 Dose: 0.4 mg - Labs Labs: 01/22/18 06:14 01/22/18 06:14 PT 14.0 SECONDS (9.7-12.2) H 01/13/18 17:42 INR 1.3 01/13/18 17:42 APTT 30 SECONDS (21-34) 01/13/18 17:42 - Constitutional Appears: Well - Head Exam Head Exam: ATRAUMATIC, NORMAL INSPECTION, NORMOCEPHALIC - Eye Exam Eye Exam: EOMI, Normal appearance, PERRL Pupil Exam: NORMAL ACCOMODATION, PERRL - ENT Exam ENT Exam: Mucous Membranes Moist, Normal Exam - Neck Exam Neck Exam: Full ROM, Normal Inspection. absent: Lymphadenopathy - Respiratory Exam Respiratory Exam: Decreased Breath Sounds - Cardiovascular Exam Cardiovascular Exam: REGULAR RHYTHM, +S1, +S2 - GI/Abdominal Exam GI & Abdominal Exam: Soft, Diminished Bowel Sounds - Rectal Exam Rectal Exam: NORMAL INSPECTION Assessment and Plan (1) JOY (acute kidney injury) Status: Acute (2) Change in mental status Status: Acute (3) Electrolyte imbalance Status: Acute (4) MRSA (methicillin resistant Staphylococcus aureus) septicemia Status: Acute (5) NSTEMI (non-ST elevated myocardial infarction) Status: Acute (6) Prophylactic measure Status: Acute (7) UTI (urinary tract infection) Status: Acute (8) CHF (congestive heart failure) Status: Chronic (9) CKD (chronic kidney disease) Status: Chronic (10) Diabetes mellitus Status: Chronic (11) Afib Status: Acute (12) Anemia Status: Acute (13) Bilateral hydronephrosis Status: Acute (14) CKD (chronic kidney disease) stage 4, GFR 15-29 ml/min Status: Acute (15) Metabolic acidosis Status: Acute (16) Dementia Status: Chronic - Assessment and Plan (Free Text) Plan: pt seen and examined at bedside overnight events noted ams-ROS cant be obtained labs and meds reviewed IV hydration antibiotics per ID accuchecks tight glycemic control blood pressure control dvt/gi px fup with labs monitor electrolytes repeat blood cultures
--- NOTE | 2018-01-23 00:06 | CP.PCM.PN ---
Subjective - Date & Time of Evaluation Date of Evaluation: 01/22/18 Time of Evaluation: 17:50 - Subjective Subjective: Patient seen and examined. Patient remains altered. Cannot obtain an ROS at this time due to presentation. Physical examination - Constitutional Appears: Non-toxic, Confused, Chronically Ill - Head Exam Head Exam: ATRAUMATIC - Eye Exam Eye Exam: EOMI - ENT Exam ENT Exam: Mucous Membranes Moist - Neck Exam Neck Exam: Full ROM - Respiratory Exam Respiratory Exam: NORMAL BREATHING PATTERN - Cardiovascular Exam Cardiovascular Exam: +S1, +S2. absent: JVD - GI/Abdominal Exam GI & Abdominal Exam: Soft, Normal Bowel Sounds - Extremities Exam Extremities Exam: Full ROM - Neurological Exam Neurological Exam: Altered - Skin Skin Exam: Dry, Warm Assessment and Plan Objective - Vital Signs/Intake and Output Vital Signs (last 24 hours): Temp Pulse Resp BP Pulse Ox 97.3 F L 64 18 113/35 L 96 01/22/18 20:00 01/22/18 20:00 01/22/18 20:00 01/22/18 20:00 01/22/18 20:00 Intake and Output: 01/22/18 01/23/18 18:59 06:59 Intake Total 1672 460 Output Total 1320 80 Balance 352 380 - Medications Medications: Current Medications Dextrose (Dextrose 50% Inj) 0 ml IV STAT PRN; Protocol PRN Reason: Hypoglycemia Protocol Dextrose (Glutose 15) 0 gm PO ONCE PRN; Protocol PRN Reason: Hypoglycemia Protocol Glucagon (Glucagen Diagnostic Kit) 0 mg IM STAT PRN; Protocol PRN Reason: Hypoglycemia Protocol Heparin Sodium (Porcine) (Heparin) 5,000 units SC Q12H [facility] Last Admin: 01/22/18 22:52 Dose: 5,000 units Daptomycin 400 mg/ Sodium (Chloride) 100 mls @ 100 mls/hr IV Q24H [facility] PRN Reason: Protocol Stop: 01/24/18 21:01 Last Admin: 01/19/18 21:00 Dose: 100 mls/hr Sodium Bicarbonate 75 meq/ (Sodium Chloride) 1,000 mls @ 42 mls/hr IV .[id number] [facility] Last Admin: 01/22/18 10:24 Dose: 42 mls/hr Daptomycin 400 mg/ Sodium (Chloride) 100 mls @ 100 mls/hr IV Q24H [facility] PRN Reason: Protocol Stop: 01/27/18 10:01 Last Admin: 01/22/18 10:22 Dose: 100 mls/hr Insulin Aspart (Novolog) 0 unit SC Q6 [facility] PRN Reason: Protocol Last Admin: 01/22/18 18:06 Dose: 1 u Insulin Detemir (Levemir) 10 unit SC HS [facility] Last Admin: 01/22/18 22:56 Dose: 10 u Pantoprazole Sodium (Protonix Inj) 40 mg IVP DAILY [facility] Last Admin: 01/22/18 10:25 Dose: 40 mg Sodium Bicarbonate (Sodium Bicarbonate Tab) 650 mg PO TID [facility] Last Admin: 01/22/18 18:07 Dose: 650 mg Tamsulosin HCl (Flomax) 0.4 mg PO DAILY [facility] Last Admin: 01/22/18 10:23 Dose: 0.4 mg - Labs Labs: 01/22/18 06:14 01/22/18 06:14 PT 14.0 SECONDS (9.7-12.2) H 01/13/18 17:42 INR 1.3 01/13/18 17:42 APTT 30 SECONDS (21-34) 01/13/18 17:42 Assessment and Plan - Assessment and Plan (Free Text) Assessment: (1) CHF (congestive heart failure) Status: Chronic (2) Diabetes mellitus Status: Chronic (3) Electrolyte imbalance Status: Acute (4) Dementia Status: Chronic (5) Prophylactic measure Status: Acute - Assessment and Plan (Free Text) Assessment: CHF (congestive heart failure) Assessment & Plan: EF approx 15-20% with noted severe LV global hypokinesia. Diastolic dysfunction cannot be determined. Moderately reduced systolic function. Refer to complete report. Will review whether patient has had a LifeVest before. Will have to follow up with senior care or patient's family members for more information. Will medically optimize in light of chronic illness. Has been hypotensive- closely monitor BP at this time - Recommendations to continue treating underlying infection. Continue Status: Chronic Bacteremia Assessment & Plan: MRSA positive blood/urine cultures. Repeat cultures. On antibiotic therapy ID on the case. Status: Chronic Diabetes mellitus Assessment & Plan: On ISS Accuchecks Continued management Status: Chronic Electrolyte imbalance Assessment & Plan: Monitor. Replete as needed Status: Acute Dementia Assessment & Plan: Continued management per primary Status: Chronic Prophylactic measure Assessment & Plan: PPI 40 mg IV daily SCDs Heparin 5,000 SC Q12 Status: Acute
[2018-01-23] MEDS: (Novolog) Insulin Aspart, Recombinant 100 u/ml 10 ml vial SC SCH ×4 (00:32→18:13)
[2018-01-23 06:57] LABS: ALB/GLOB RATIO 0.8 (1.0-2.1); ALBUMIN 3.3 g/dL (3.5-5.0); CALCIUM 8.8 mg/dl (8.6-10.4)
[2018-01-23 07:07] LABS: BASO % 0.6 % (0.0-2.0); EOS # 0.2 K/uL (0.0-0.7); EOS % 2.3 % (0.0-4.0); HEMOGLOBIN 7.4 g/dL (12.0-18.0); LYMPH # 0.9 K/uL (1.0-4.3); MONO # 0.5 K/uL (0.0-0.8); NEUT # 6.1 K/uL (1.8-7.0)
[2018-01-23 07:11] LABS: BASO # 0.1 K/uL (0.0-0.2); LYMPH % 11.5 % (20.0-40.0); MEAN CELL VOLUME 83.2 fL (80.0-94.0); MEAN CORPUSCULAR HEMOGLOBIN 27.2 pg (27.0-31.0); MEAN CORPUSCULAR HGB CONC 32.7 g/dL (33.0-37.0); MEAN PLATELET VOLUME 8.9 fL (7.2-11.7); MONO % 6.6 % (0.0-10.0); RBC 2.71 Mil/uL (4.40-5.90); WHITE BLOOD COUNT 7.8 K/uL (4.8-10.8)
--- NOTE | 2018-01-23 11:26 | CP.PCM.PN ---
Subjective - Date & Time of Evaluation Date of Evaluation: 01/23/18 Time of Evaluation: 13:30 - Subjective Subjective: clinically same Objective - Vital Signs/Intake and Output Vital Signs (last 24 hours): Temp Pulse Resp BP Pulse Ox 98.1 F 67 20 115/47 L 96 01/23/18 04:00 01/23/18 04:00 01/23/18 04:00 01/23/18 04:00 01/23/18 04:00 Intake and Output: 01/23/18 01/23/18 06:59 18:59 Intake Total 1104 92 Output Total 710 60 Balance 394 32 - Medications Medications: Current Medications Dextrose (Dextrose 50% Inj) 0 ml IV STAT PRN; Protocol PRN Reason: Hypoglycemia Protocol Dextrose (Glutose 15) 0 gm PO ONCE PRN; Protocol PRN Reason: Hypoglycemia Protocol Glucagon (Glucagen Diagnostic Kit) 0 mg IM STAT PRN; Protocol PRN Reason: Hypoglycemia Protocol Heparin Sodium (Porcine) (Heparin) 5,000 units SC Q12H [facility] Last Admin: 01/23/18 09:14 Dose: 5,000 units Daptomycin 400 mg/ Sodium (Chloride) 100 mls @ 100 mls/hr IV Q24H [facility] PRN Reason: Protocol Stop: 01/24/18 21:01 Last Admin: 01/19/18 21:00 Dose: 100 mls/hr Sodium Bicarbonate 75 meq/ (Sodium Chloride) 1,000 mls @ 42 mls/hr IV .[id number] [facility] Last Admin: 01/22/18 10:24 Dose: 42 mls/hr Daptomycin 400 mg/ Sodium (Chloride) 100 mls @ 100 mls/hr IV Q24H [facility] PRN Reason: Protocol Stop: 01/27/18 10:01 Last Admin: 01/23/18 09:33 Dose: 100 mls/hr Insulin Aspart (Novolog) 0 unit SC Q6 [facility] PRN Reason: Protocol Last Admin: 01/23/18 07:00 Dose: 2 u Insulin Detemir (Levemir) 10 unit SC HS [facility] Last Admin: 01/22/18 22:56 Dose: 10 u Pantoprazole Sodium (Protonix Inj) 40 mg IVP DAILY [facility] Last Admin: 01/23/18 09:14 Dose: 40 mg Sodium Bicarbonate (Sodium Bicarbonate Tab) 650 mg PO TID [facility] Last Admin: 01/23/18 09:14 Dose: 650 mg Tamsulosin HCl (Flomax) 0.4 mg PO DAILY [facility] Last Admin: 01/23/18 09:14 Dose: 0.4 mg - Labs Labs: 01/23/18 06:30 01/23/18 06:30 PT 14.0 SECONDS (9.7-12.2) H 01/13/18 17:42 INR 1.3 01/13/18 17:42 APTT 30 SECONDS (21-34) 01/13/18 17:42 - Constitutional Appears: Well - Head Exam Head Exam: ATRAUMATIC, NORMAL INSPECTION, NORMOCEPHALIC - Eye Exam Eye Exam: EOMI, Normal appearance, PERRL Pupil Exam: NORMAL ACCOMODATION, PERRL - ENT Exam ENT Exam: Mucous Membranes Moist, Normal Exam - Neck Exam Neck Exam: Full ROM, Normal Inspection. absent: Lymphadenopathy - Respiratory Exam Respiratory Exam: Decreased Breath Sounds - Cardiovascular Exam Cardiovascular Exam: REGULAR RHYTHM, +S1, +S2 - GI/Abdominal Exam GI & Abdominal Exam: Soft, Diminished Bowel Sounds - Rectal Exam Rectal Exam: Deferred Assessment and Plan (1) JOY (acute kidney injury) Status: Acute (2) Change in mental status Status: Acute (3) Electrolyte imbalance Status: Acute (4) MRSA (methicillin resistant Staphylococcus aureus) septicemia Status: Acute (5) NSTEMI (non-ST elevated myocardial infarction) Status: Acute (6) Prophylactic measure Status: Acute (7) UTI (urinary tract infection) Status: Acute (8) CHF (congestive heart failure) Status: Chronic (9) CKD (chronic kidney disease) Status: Chronic (10) Diabetes mellitus Status: Chronic (11) Afib Status: Acute (12) Anemia Status: Acute (13) Bilateral hydronephrosis Status: Acute (14) CKD (chronic kidney disease) stage 4, GFR 15-29 ml/min Status: Acute (15) Metabolic acidosis Status: Acute (16) Dementia Status: Chronic - Assessment and Plan (Free Text) Plan: pt seen and examined at bedside overnight events noted labs and meds reviewed IV hydration Daptomycin accuchecks tight glycemic control blood pressure control dvt/gi px fup with labs monitor inpit and output monitor CMP CBC
[2018-01-23] MEDS: Sodium Bicarbonate 8.4% 75 MEQ in Sodium Chloride 0.45% 925 ML IV SCH (12:02)
--- NOTE | 2018-01-23 14:35 | CP.PCM.PN ---
Subjective - Date & Time of Evaluation Date of Evaluation: 01/23/18 Time of Evaluation: 07:00 - Subjective Subjective: remains bacteremic with MRSA source unclear- UTI suspected on admission endocarditis to be ruled out dr Thompson on board Cubicin reordered CXR neg for gross infiltrate CT abd / pelvis neg for abscess no implanted devices as per hx and only peripheral access Objective - Vital Signs/Intake and Output Vital Signs (last 24 hours): Temp Pulse Resp BP Pulse Ox 98.1 F 84 18 115/47 L 98 01/23/18 12:00 01/23/18 12:00 01/23/18 12:00 01/23/18 04:00 01/23/18 12:00 Intake and Output: 01/23/18 01/23/18 06:59 18:59 Intake Total 1104 644 Output Total 710 390 Balance 394 254 - Medications Medications: Current Medications Dextrose (Dextrose 50% Inj) 0 ml IV STAT PRN; Protocol PRN Reason: Hypoglycemia Protocol Dextrose (Glutose 15) 0 gm PO ONCE PRN; Protocol PRN Reason: Hypoglycemia Protocol Glucagon (Glucagen Diagnostic Kit) 0 mg IM STAT PRN; Protocol PRN Reason: Hypoglycemia Protocol Heparin Sodium (Porcine) (Heparin) 5,000 units SC Q12H [facility] Last Admin: 01/23/18 09:14 Dose: 5,000 units Daptomycin 400 mg/ Sodium (Chloride) 100 mls @ 100 mls/hr IV Q24H [facility] PRN Reason: Protocol Stop: 01/24/18 21:01 Last Admin: 01/19/18 21:00 Dose: 100 mls/hr Sodium Bicarbonate 75 meq/ (Sodium Chloride) 1,000 mls @ 42 mls/hr IV .[id number] [facility] Last Admin: 01/22/18 10:24 Dose: 42 mls/hr Daptomycin 400 mg/ Sodium (Chloride) 100 mls @ 100 mls/hr IV Q24H [facility] PRN Reason: Protocol Stop: 01/27/18 10:01 Last Admin: 01/23/18 09:33 Dose: 100 mls/hr Insulin Aspart (Novolog) 0 unit SC Q6 [facility] PRN Reason: Protocol Last Admin: 01/23/18 12:00 Dose: Not Given Insulin Detemir (Levemir) 10 unit SC HS [facility] Last Admin: 01/22/18 22:56 Dose: 10 u Pantoprazole Sodium (Protonix Susp) 40 mg PO DAILY [facility] Sodium Bicarbonate (Sodium Bicarbonate Tab) 650 mg PO TID [facility] Last Admin: 01/23/18 14:26 Dose: 650 mg Tamsulosin HCl (Flomax) 0.4 mg PO DAILY [facility] Last Admin: 01/23/18 09:14 Dose: 0.4 mg - Labs Labs: 01/23/18 06:30 01/23/18 06:30 PT 14.0 SECONDS (9.7-12.2) H 01/13/18 17:42 INR 1.3 01/13/18 17:42 APTT 30 SECONDS (21-34) 01/13/18 17:42 - Constitutional Appears: Confused, Cachectic, Chronically Ill - Head Exam Head Exam: NORMOCEPHALIC - Eye Exam Eye Exam: absent: Scleral icterus - ENT Exam ENT Exam: Mucous Membranes Dry - Neck Exam Neck Exam: absent: Lymphadenopathy - Respiratory Exam Respiratory Exam: Decreased Breath Sounds - Cardiovascular Exam Cardiovascular Exam: REGULAR RHYTHM - GI/Abdominal Exam GI & Abdominal Exam: Distended, Soft Additional comments: ileostomy + - Rectal Exam Rectal Exam: Deferred - Exam Exam: NORMAL INSPECTION - Extremities Exam Extremities Exam: absent: Pedal Edema - Back Exam Back Exam: absent: CVA tenderness (L), CVA tenderness (R) - Neurological Exam Neurological Exam: Altered Assessment and Plan (1) MRSA (methicillin resistant Staphylococcus aureus) septicemia Status: Acute - Assessment and Plan (Free Text) Assessment: remains bacteremic with MRSA source unclear- UTI suspected on admission endocarditis to be ruled out dr Thompson on board Cubicin reordered CXR neg for gross infiltrate CT abd / pelvis neg for abscess no implanted devices as per hx and only peripheral access
[2018-01-23] MEDS: Insulin Detemir 100 units/ml Vial (Levemir) SC SCH (21:07)
--- NOTE | 2018-01-23 21:08 | PQF ---
PROVIDER RESPONSE TEXT: Acute on Chronic Systolic CHF REVIEWER QUERY TEXT: CHF Acuity and Type Congestive Heart Failure is documented in the Medical Record. Please document the type and acuity (in cludes probable or suspected) Such as: Type: -- Systolic -- Diastolic -- Combined -- Other, please specify Acuity: -- Acute -- Chronic -- Acute on chronic -- Other, please specify Also please document the underlying cause of the CHF (includes probable or suspected) The patient's Clinical Indicators include: ?72 y/o male, w/PMhx of diabetes and dementia, brought to ER from group home for evaluation after h e refused to eat and take his medications. Patient has a colostomy bag for an unknown reason?. EKG: SVT, probably flutter ST, T wave abnormality, consider lateral ischemia. ECHO: The left ventricle is normal size. The Ejection Fraction is 15-20%. Indeterminate diastolic function. Query created by: Adolph Bello on 01/18/2018 9:40 AM Electronically signed by: Reza STAHL 01/23/2018 9:05 PM
--- NOTE | 2018-01-23 22:41 | CP.PCM.PN ---
Subjective - Date & Time of Evaluation Date of Evaluation: 01/23/18 Time of Evaluation: 22:40 - Subjective Subjective: Patient seen and examined. Patient remains altered. Cannot obtain an ROS at this time due to presentation. Physical examination - Constitutional Appears: Non-toxic, Confused, Chronically Ill - Head Exam Head Exam: ATRAUMATIC - Eye Exam Eye Exam: EOMI - ENT Exam ENT Exam: Mucous Membranes Moist - Neck Exam Neck Exam: Full ROM - Respiratory Exam Respiratory Exam: NORMAL BREATHING PATTERN - Cardiovascular Exam Cardiovascular Exam: +S1, +S2. absent: JVD - GI/Abdominal Exam GI & Abdominal Exam: Soft, Normal Bowel Sounds - Extremities Exam Extremities Exam: Full ROM - Neurological Exam Neurological Exam: Altered - Skin Skin Exam: Dry, Warm Objective - Vital Signs/Intake and Output Vital Signs (last 24 hours): Temp Pulse Resp BP Pulse Ox 97.3 F L 80 18 115/47 L 97 01/23/18 20:00 01/23/18 16:00 01/23/18 16:00 01/23/18 04:00 01/23/18 16:00 Intake and Output: 01/23/18 01/24/18 18:59 06:59 Intake Total 1104 368 Output Total 890 Balance 214 368 - Medications Medications: Current Medications Dextrose (Dextrose 50% Inj) 0 ml IV STAT PRN; Protocol PRN Reason: Hypoglycemia Protocol Dextrose (Glutose 15) 0 gm PO ONCE PRN; Protocol PRN Reason: Hypoglycemia Protocol Glucagon (Glucagen Diagnostic Kit) 0 mg IM STAT PRN; Protocol PRN Reason: Hypoglycemia Protocol Heparin Sodium (Porcine) (Heparin) 5,000 units SC Q12H [facility] Last Admin: 01/23/18 21:07 Dose: 5,000 units Daptomycin 400 mg/ Sodium (Chloride) 100 mls @ 100 mls/hr IV Q24H [facility] PRN Reason: Protocol Stop: 01/24/18 21:01 Last Admin: 01/19/18 21:00 Dose: 100 mls/hr Sodium Bicarbonate 75 meq/ (Sodium Chloride) 1,000 mls @ 42 mls/hr IV .[id number] [facility] Last Admin: 01/23/18 12:02 Dose: 42 mls/hr Daptomycin 400 mg/ Sodium (Chloride) 100 mls @ 100 mls/hr IV Q24H [facility] PRN Reason: Protocol Stop: 01/27/18 10:01 Last Admin: 01/23/18 09:33 Dose: 100 mls/hr Insulin Aspart (Novolog) 0 unit SC Q6 [facility] PRN Reason: Protocol Last Admin: 01/23/18 18:13 Dose: 2 u Insulin Detemir (Levemir) 10 unit SC HS [facility] Last Admin: 01/23/18 21:07 Dose: 10 u Pantoprazole Sodium (Protonix Susp) 40 mg PO DAILY [facility] Sodium Bicarbonate (Sodium Bicarbonate Tab) 650 mg PO TID [facility] Last Admin: 01/23/18 18:02 Dose: 650 mg Tamsulosin HCl (Flomax) 0.4 mg PO DAILY [facility] Last Admin: 01/23/18 09:14 Dose: 0.4 mg - Labs Labs: 01/23/18 06:30 01/23/18 06:30 PT 14.0 SECONDS (9.7-12.2) H 01/13/18 17:42 INR 1.3 01/13/18 17:42 APTT 30 SECONDS (21-34) 01/13/18 17:42 Assessment and Plan - Assessment and Plan (Free Text) Assessment: CHF (congestive heart failure) Assessment & Plan: EF approx 15-20% with noted severe LV global hypokinesia. Diastolic dysfunction cannot be determined. Moderately reduced systolic function. Refer to complete report. Will review whether patient has had a LifeVest before. Will have to follow up with [facility] or patient's family members for more information. Will medically optimize in light of chronic illness. Has been hypotensive- closely monitor BP at this time - Recommendations to continue treating underlying infection. Continue Status: Chronic Bacteremia Assessment & Plan: MRSA positive blood/urine cultures. Repeat cultures. On antibiotic therapy ID on the case. Status: Chronic Diabetes mellitus Assessment & Plan: On ISS Accuchecks Continued management Status: Chronic Electrolyte imbalance Assessment & Plan: Monitor. Replete as needed Status: Acute Dementia Assessment & Plan: Continued management per primary Status: Chronic Prophylactic measure Assessment & Plan: PPI 40 mg IV daily SCDs Heparin 5,000 SC Q12 Status: Acute
[2018-01-24] MEDS: (Novolog) Insulin Aspart, Recombinant 100 u/ml 10 ml vial SC SCH ×4 (00:30→18:27)
[2018-01-24] MEDS: Pantoprazole 40 mg Susp UD PO SCH (09:41)
[2018-01-24] MEDS: Sodium Bicarbonate 8.4% 75 MEQ in Sodium Chloride 0.45% 925 ML IV SCH (09:46)
--- NOTE | 2018-01-24 19:09 | CP.PCM.PN ---
Subjective - Date & Time of Evaluation Date of Evaluation: 01/24/18 Time of Evaluation: 12:15 - Subjective Subjective: clinically same Objective - Vital Signs/Intake and Output Vital Signs (last 24 hours): Temp Pulse Resp BP Pulse Ox 97.6 F 74 21 130/83 97 01/24/18 12:00 01/24/18 18:47 01/24/18 12:00 01/24/18 12:00 01/24/18 12:00 Intake and Output: 01/24/18 01/25/18 18:59 06:59 Intake Total 1228 Balance 1228 - Medications Medications: Current Medications Dextrose (Dextrose 50% Inj) 0 ml IV STAT PRN; Protocol PRN Reason: Hypoglycemia Protocol Dextrose (Glutose 15) 0 gm PO ONCE PRN; Protocol PRN Reason: Hypoglycemia Protocol Glucagon (Glucagen Diagnostic Kit) 0 mg IM STAT PRN; Protocol PRN Reason: Hypoglycemia Protocol Heparin Sodium (Porcine) (Heparin) 5,000 units SC Q12H [facility] Last Admin: 01/24/18 09:40 Dose: 5,000 units Daptomycin 400 mg/ Sodium (Chloride) 100 mls @ 100 mls/hr IV Q24H [facility] PRN Reason: Protocol Stop: 01/24/18 21:01 Last Admin: 01/19/18 21:00 Dose: 100 mls/hr Daptomycin 400 mg/ Sodium (Chloride) 100 mls @ 100 mls/hr IV Q24H [facility] PRN Reason: Protocol Stop: 01/27/18 10:01 Last Admin: 01/24/18 09:40 Dose: 100 mls/hr Insulin Aspart (Novolog) 0 unit SC Q6 [facility] PRN Reason: Protocol Last Admin: 01/24/18 18:27 Dose: 4 u Insulin Detemir (Levemir) 10 unit SC HS [facility] Last Admin: 01/23/18 21:07 Dose: 10 u Pantoprazole Sodium (Protonix Susp) 40 mg PO DAILY [facility] Last Admin: 01/24/18 09:41 Dose: 40 mg Sodium Bicarbonate (Sodium Bicarbonate Tab) 650 mg PO TID [facility] Last Admin: 01/24/18 18:27 Dose: 650 mg Tamsulosin HCl (Flomax) 0.4 mg PO DAILY [facility] Last Admin: 01/24/18 09:40 Dose: 0.4 mg - Labs Labs: 01/23/18 06:30 01/23/18 06:30 PT 14.0 SECONDS (9.7-12.2) H 01/13/18 17:42 INR 1.3 01/13/18 17:42 APTT 30 SECONDS (21-34) 01/13/18 17:42 - Constitutional Appears: Well - Head Exam Head Exam: ATRAUMATIC, NORMAL INSPECTION, NORMOCEPHALIC - Eye Exam Eye Exam: EOMI, Normal appearance, PERRL Pupil Exam: NORMAL ACCOMODATION, PERRL - ENT Exam ENT Exam: Mucous Membranes Moist, Normal Exam - Neck Exam Neck Exam: Full ROM, Normal Inspection. absent: Lymphadenopathy - Respiratory Exam Respiratory Exam: Decreased Breath Sounds - Cardiovascular Exam Cardiovascular Exam: REGULAR RHYTHM, +S1, +S2 - GI/Abdominal Exam GI & Abdominal Exam: Soft, Diminished Bowel Sounds - Rectal Exam Rectal Exam: Deferred Assessment and Plan (1) JOY (acute kidney injury) Status: Acute (2) Change in mental status Status: Acute (3) Electrolyte imbalance Status: Acute (4) MRSA (methicillin resistant Staphylococcus aureus) septicemia Status: Acute (5) NSTEMI (non-ST elevated myocardial infarction) Status: Acute (6) Prophylactic measure Status: Acute (7) UTI (urinary tract infection) Status: Acute (8) CHF (congestive heart failure) Status: Chronic (9) CKD (chronic kidney disease) Status: Chronic (10) Diabetes mellitus Status: Chronic (11) Afib Status: Acute (12) Anemia Status: Acute (13) Bilateral hydronephrosis Status: Acute (14) CKD (chronic kidney disease) stage 4, GFR 15-29 ml/min Status: Acute (15) Metabolic acidosis Status: Acute (16) Dementia Status: Chronic - Assessment and Plan (Free Text) Plan: pt seen and examined at bedside overnight events noted labs and meds reviewed Low Hb monitor H/H IV hydration ID followup josy antibiotics accuchecks tight glycemic control blood pressure control dvt/gi px fup with labs monitor CBC CMP
--- NOTE | 2018-01-24 19:21 | CP.PCM.PN ---
<Merlene Winston - Last Filed: 01/24/18 19:12> Subjective - Date & Time of Evaluation Date of Evaluation: 01/24/18 Time of Evaluation: 09:45 - Subjective Subjective: Cardiology progress note - Dr. Thompson's service Patient was seen and examined at bedside. Patient is extubated and more alert and awake but not oriented. Patient denies any discomfort. Objective - Vital Signs/Intake and Output Vital Signs (last 24 hours): Temp Pulse Resp BP Pulse Ox 97.6 F 74 21 130/83 97 01/24/18 12:00 01/24/18 18:47 01/24/18 12:00 01/24/18 12:00 01/24/18 12:00 Intake and Output: 01/24/18 01/25/18 18:59 06:59 Intake Total 1228 Balance 1228 - Medications Medications: Current Medications Dextrose (Dextrose 50% Inj) 0 ml IV STAT PRN; Protocol PRN Reason: Hypoglycemia Protocol Dextrose (Glutose 15) 0 gm PO ONCE PRN; Protocol PRN Reason: Hypoglycemia Protocol Glucagon (Glucagen Diagnostic Kit) 0 mg IM STAT PRN; Protocol PRN Reason: Hypoglycemia Protocol Heparin Sodium (Porcine) (Heparin) 5,000 units SC Q12H [facility] Last Admin: 01/24/18 09:40 Dose: 5,000 units Daptomycin 400 mg/ Sodium (Chloride) 100 mls @ 100 mls/hr IV Q24H [facility] PRN Reason: Protocol Stop: 01/24/18 21:01 Last Admin: 01/19/18 21:00 Dose: 100 mls/hr Daptomycin 400 mg/ Sodium (Chloride) 100 mls @ 100 mls/hr IV Q24H [facility] PRN Reason: Protocol Stop: 01/27/18 10:01 Last Admin: 01/24/18 09:40 Dose: 100 mls/hr Insulin Aspart (Novolog) 0 unit SC Q6 [facility] PRN Reason: Protocol Last Admin: 01/24/18 18:27 Dose: 4 u Insulin Detemir (Levemir) 10 unit SC HS [facility] Last Admin: 01/23/18 21:07 Dose: 10 u Pantoprazole Sodium (Protonix Susp) 40 mg PO DAILY [facility] Last Admin: 01/24/18 09:41 Dose: 40 mg Sodium Bicarbonate (Sodium Bicarbonate Tab) 650 mg PO TID [facility] Last Admin: 01/24/18 18:27 Dose: 650 mg Tamsulosin HCl (Flomax) 0.4 mg PO DAILY [facility] Last Admin: 01/24/18 09:40 Dose: 0.4 mg - Labs Labs: 01/23/18 06:30 01/23/18 06:30 PT 14.0 SECONDS (9.7-12.2) H 01/13/18 17:42 INR 1.3 01/13/18 17:42 APTT 30 SECONDS (21-34) 01/13/18 17:42 - Constitutional Appears: No Acute Distress - Head Exam Head Exam: ATRAUMATIC - Eye Exam Eye Exam: EOMI - ENT Exam Additional comments: NGT in place Assessment and Plan (1) CHF (congestive heart failure) Assessment & Plan: EF approx 15-20% with noted severe LV global hypokinesia. Diastolic dysfunction cannot be determined. Moderately reduced systolic function. Refer to complete report. Will review whether patient has had a LifeVest before. Will have to follow up with longterm or patient's family members for more information. Will medically optimize in light of chronic illness. Has been hypotensive- closely monitor BP at this time - Recommendations to continue treating underlying infection. Continue Status: Chronic (2) MRSA (methicillin resistant Staphylococcus aureus) septicemia Assessment & Plan: Daptomycin 400mg IV q24h Status: Acute (3) Diabetes mellitus Assessment & Plan: On ISS Accuchecks Continued management Status: Chronic (4) Dementia Assessment & Plan: May need some form of maintenance therapy. Continued management per primary Status: Chronic (5) Prophylactic measure Assessment & Plan: PPI 40 mg IV daily SCDs Heparin 5,000 SC Q12 No further cardiac intervention at this time All plans and management discussed with Dr. Thompson Status: Acute <Real Thompson - Last Filed: 01/24/18 21:38> Objective - Vital Signs/Intake and Output Vital Signs (last 24 hours): Temp Pulse Resp BP Pulse Ox 97.6 F 74 21 130/83 97 01/24/18 12:00 01/24/18 18:47 01/24/18 12:00 01/24/18 12:00 01/24/18 12:00 Intake and Output: 01/24/18 01/25/18 18:59 06:59 Intake Total 1228 Balance 1228 - Medications Medications: Current Medications Dextrose (Dextrose 50% Inj) 0 ml IV STAT PRN; Protocol PRN Reason: Hypoglycemia Protocol Dextrose (Glutose 15) 0 gm PO ONCE PRN; Protocol PRN Reason: Hypoglycemia Protocol Glucagon (Glucagen Diagnostic Kit) 0 mg IM STAT PRN; Protocol PRN Reason: Hypoglycemia Protocol Heparin Sodium (Porcine) (Heparin) 5,000 units SC Q12H [facility] Last Admin: 01/24/18 09:40 Dose: 5,000 units Daptomycin 400 mg/ Sodium (Chloride) 100 mls @ 100 mls/hr IV Q24H [facility] PRN Reason: Protocol Stop: 01/27/18 10:01 Last Admin: 01/24/18 09:40 Dose: 100 mls/hr Insulin Aspart (Novolog) 0 unit SC Q6 [facility] PRN Reason: Protocol Last Admin: 01/24/18 18:27 Dose: 4 u Insulin Detemir (Levemir) 10 unit SC HS [facility] Last Admin: 01/23/18 21:07 Dose: 10 u Pantoprazole Sodium (Protonix Susp) 40 mg PO DAILY [facility] Last Admin: 01/24/18 09:41 Dose: 40 mg Sodium Bicarbonate (Sodium Bicarbonate Tab) 650 mg PO TID [facility] Last Admin: 01/24/18 18:27 Dose: 650 mg Tamsulosin HCl (Flomax) 0.4 mg PO DAILY [facility] Last Admin: 01/24/18 09:40 Dose: 0.4 mg - Labs Labs: 01/23/18 06:30 01/23/18 06:30 PT 14.0 SECONDS (9.7-12.2) H 01/13/18 17:42 INR 1.3 01/13/18 17:42 APTT 30 SECONDS (21-34) 01/13/18 17:42 Assessment and Plan - Assessment and Plan (Free Text) Assessment: Patient seen and evaluated personally by sc Plan of care d/w the resident and as documented
[2018-01-24] MEDS: Insulin Detemir 100 units/ml Vial (Levemir) SC SCH (21:47)
[2018-01-25] MEDS: (Novolog) Insulin Aspart, Recombinant 100 u/ml 10 ml vial SC SCH ×4 (00:01→19:00)
[2018-01-25 06:28] LABS: BASO # 0.1 K/uL (0.0-0.2); BASO % 0.9 % (0.0-2.0); EOS # 0.2 K/uL (0.0-0.7); EOS % 2.6 % (0.0-4.0); HEMOGLOBIN 7.6 g/dL (12.0-18.0); LYMPH % 16.9 % (20.0-40.0); MEAN CELL VOLUME 84.6 fL (80.0-94.0); MEAN CORPUSCULAR HEMOGLOBIN 27.5 pg (27.0-31.0); MEAN CORPUSCULAR HGB CONC 32.6 g/dL (33.0-37.0); MEAN PLATELET VOLUME 8.5 fL (7.2-11.7); MONO # 0.3 K/uL (0.0-0.8); MONO % 5.1 % (0.0-10.0); NEUT # 4.6 K/uL (1.8-7.0); NEUT % 74.5 % (50.0-75.0); PLATELET COUNT 413 K/uL (130-400); RBC 2.76 Mil/uL (4.40-5.90); WHITE BLOOD COUNT 6.2 K/uL (4.8-10.8)
[2018-01-25 06:45] LABS: ALB/GLOB RATIO 0.9 (1.0-2.1); ALBUMIN 3.4 g/dL (3.5-5.0); ALT/SGPT 33 U/L (21-72); AST/SGOT 29 U/L (17-59); BLOOD UREA NITROGEN 37 mg/dL (9-20); GFR NON-AFRICAN AMERICAN 60
[2018-01-25 09:13] LABS: ERYTHROCYTE SEDIMENTATION RATE > 140 mm/hr (0-15)
[2018-01-25] MEDS: Pantoprazole 40 mg Susp UD PO SCH (11:14)
--- NOTE | 2018-01-25 12:59 | CP.PCM.PN ---
Subjective - Date & Time of Evaluation Date of Evaluation: 01/25/18 Time of Evaluation: 12:00 - Subjective Subjective: clinically same Objective - Vital Signs/Intake and Output Vital Signs (last 24 hours): Temp Pulse Resp BP Pulse Ox 97.8 F 70 21 132/43 L 97 01/25/18 12:00 01/25/18 12:00 01/25/18 12:00 01/25/18 12:00 01/25/18 12:00 Intake and Output: 01/25/18 01/25/18 06:59 18:59 Intake Total 1272 234 Output Total 1400 300 Balance -128 -66 - Medications Medications: Current Medications Dextrose (Dextrose 50% Inj) 0 ml IV STAT PRN; Protocol PRN Reason: Hypoglycemia Protocol Dextrose (Glutose 15) 0 gm PO ONCE PRN; Protocol PRN Reason: Hypoglycemia Protocol Glucagon (Glucagen Diagnostic Kit) 0 mg IM STAT PRN; Protocol PRN Reason: Hypoglycemia Protocol Heparin Sodium (Porcine) (Heparin) 5,000 units SC Q12H [facility] Last Admin: 01/25/18 11:14 Dose: 5,000 units Daptomycin 400 mg/ Sodium (Chloride) 100 mls @ 100 mls/hr IV Q24H [facility] PRN Reason: Protocol Stop: 01/27/18 10:01 Last Admin: 01/25/18 11:13 Dose: 100 mls/hr Insulin Aspart (Novolog) 0 unit SC Q6 [facility] PRN Reason: Protocol Last Admin: 01/25/18 05:36 Dose: 3 u Insulin Detemir (Levemir) 10 unit SC HS [facility] Last Admin: 01/24/18 21:47 Dose: 10 u Pantoprazole Sodium (Protonix Susp) 40 mg PO DAILY [facility] Last Admin: 01/25/18 11:14 Dose: 40 mg Sodium Bicarbonate (Sodium Bicarbonate Tab) 650 mg PO TID [facility] Last Admin: 01/25/18 11:14 Dose: 650 mg Tamsulosin HCl (Flomax) 0.4 mg PO DAILY [facility] Last Admin: 01/25/18 11:14 Dose: 0.4 mg - Labs Labs: 01/25/18 06:19 01/25/18 06:17 PT 14.0 SECONDS (9.7-12.2) H 01/13/18 17:42 INR 1.3 01/13/18 17:42 APTT 30 SECONDS (21-34) 01/13/18 17:42 - Constitutional Appears: Well - Head Exam Head Exam: ATRAUMATIC, NORMAL INSPECTION, NORMOCEPHALIC - Eye Exam Eye Exam: EOMI, Normal appearance, PERRL Pupil Exam: NORMAL ACCOMODATION, PERRL - ENT Exam ENT Exam: Mucous Membranes Moist, Normal Exam - Neck Exam Neck Exam: Full ROM, Normal Inspection. absent: Lymphadenopathy - Respiratory Exam Respiratory Exam: Decreased Breath Sounds - Cardiovascular Exam Cardiovascular Exam: REGULAR RHYTHM, +S1, +S2 - GI/Abdominal Exam GI & Abdominal Exam: Soft, Diminished Bowel Sounds - Rectal Exam Rectal Exam: Deferred Assessment and Plan (1) JOY (acute kidney injury) Status: Acute (2) Change in mental status Status: Acute (3) Electrolyte imbalance Status: Acute (4) MRSA (methicillin resistant Staphylococcus aureus) septicemia Status: Acute (5) NSTEMI (non-ST elevated myocardial infarction) Status: Acute (6) Prophylactic measure Status: Acute (7) UTI (urinary tract infection) Status: Acute (8) CHF (congestive heart failure) Status: Chronic (9) CKD (chronic kidney disease) Status: Chronic (10) Diabetes mellitus Status: Chronic (11) Afib Status: Acute (12) Anemia Status: Acute (13) Bilateral hydronephrosis Status: Acute (14) CKD (chronic kidney disease) stage 4, GFR 15-29 ml/min Status: Acute (15) Metabolic acidosis Status: Acute (16) Dementia Status: Chronic - Assessment and Plan (Free Text) Plan: pt seen and examined at bedside overnight events noted MRSA +ve labs and meds reviewed cardio followup IV hydration ID followup antibiotics as per ID accuchecks tight glycemic control blood pressure control dvt/gi px fup with labs monitor CMP
--- NOTE | 2018-01-25 14:07 | VASCLAB ---
Date of service: 01/21/2018 PROCEDURE: Lower Extremity Venous Duplex Exam. HISTORY: r/o dvt PRIORS: None. TECHNIQUE: Bilateral common femoral, femoral, popliteal and posterior tibial, peroneal and great saphenous veins were evaluated. Flow was assessed with color Doppler, compressibility, assessment of phasic flow and augmentation response. Report prepared by Jamari Hobson, BS, RVT FINDINGS: RIGHT: 1. Common Femoral Vein: 1.1. Compressibility - Fully compressible: Thrombus - None : Flow - Phasic: Augmentation -Normal: Reflux - None. 2. Femoral Vein: 2.1. Compressibility - Fully compressible: Thrombus - None : Flow - Phasic: Augmentation -Normal: Reflux - None. 3. Popliteal Vein: 3.1. Compressibility - Fully compressible: Thrombus - None : Flow - Phasic: Augmentation -Normal: Reflux - None. 4. Posterior Tibial Vein: 4.1. Compressibility - Fully compressible: Thrombus - None: Flow - Phasic: Augmentation -Normal: Reflux - None. 5. Peroneal Vein: 5.1. Compressibility - Fully compressible: Thrombus - None: Flow - Phasic: Augmentation -Normal: Reflux - None. 6. Great Saphenous Vein: 6.1. Compressibility - Fully compressible: Thrombus - None: Flow - Phasic: Augmentation - Normal: Reflux - None. LEFT: 1. Common Femoral Vein: 1.1. Compressibility - Fully compressible: Thrombus - None: Flow - Phasic: Augmentation -Normal: Reflux - None. 2. Femoral Vein: 2.1. Compressibility - Fully compressible: Thrombus - None: Flow - Phasic: Augmentation -Normal: Reflux - None. 3. Popliteal Vein: 3.1. Compressibility - Fully compressible: Thrombus - None : Flow - Phasic: Augmentation -Normal: Reflux - None. 4. Posterior Tibial Vein: 4.1. Compressibility - Fully compressible: Thrombus - None: Flow - Phasic: Augmentation -Normal: Reflux - None. 5. Peroneal Vein: 5.1. Compressibility - Fully compressible: Thrombus - None: Flow - Phasic: Augmentation -Normal: Reflux - None. 6. Great Saphenous Vein: 6.1. Compressibility - Fully compressible: Thrombus - None: Flow - Phasic: Augmentation - Normal: Reflux - None. OTHER FINDINGS: Right: None significant. Left: None significant. IMPRESSION: Right: No evidence of deep or superficial vein thrombosis of the right lower extremity. Normal valve function noted of the right side. Left: No evidence of deep or superficial vein thrombosis of the left lower extremity. Normal valve function noted of the left side.
--- NOTE | 2018-01-25 15:28 | CP.PCM.PN ---
Subjective - Date & Time of Evaluation Date of Evaluation: 01/25/18 Time of Evaluation: 15:00 - Subjective Subjective: dictated Objective - Vital Signs/Intake and Output Vital Signs (last 24 hours): Temp Pulse Resp BP Pulse Ox 97.8 F 70 21 132/43 L 97 01/25/18 12:00 01/25/18 12:00 01/25/18 12:00 01/25/18 12:00 01/25/18 12:00 Intake and Output: 01/25/18 01/25/18 06:59 18:59 Intake Total 1272 354 Output Total 1400 300 Balance -128 54 - Medications Medications: Current Medications Dextrose (Dextrose 50% Inj) 0 ml IV STAT PRN; Protocol PRN Reason: Hypoglycemia Protocol Dextrose (Glutose 15) 0 gm PO ONCE PRN; Protocol PRN Reason: Hypoglycemia Protocol Glucagon (Glucagen Diagnostic Kit) 0 mg IM STAT PRN; Protocol PRN Reason: Hypoglycemia Protocol Heparin Sodium (Porcine) (Heparin) 5,000 units SC Q12H [facility] Last Admin: 01/25/18 11:14 Dose: 5,000 units Daptomycin 400 mg/ Sodium (Chloride) 100 mls @ 100 mls/hr IV Q24H [facility] PRN Reason: Protocol Stop: 01/27/18 10:01 Last Admin: 01/25/18 11:13 Dose: 100 mls/hr Insulin Aspart (Novolog) 0 unit SC Q6 [facility] PRN Reason: Protocol Last Admin: 01/25/18 12:00 Dose: Not Given Insulin Detemir (Levemir) 10 unit SC HS [facility] Last Admin: 01/24/18 21:47 Dose: 10 u Pantoprazole Sodium (Protonix Susp) 40 mg PO DAILY [facility] Last Admin: 01/25/18 11:14 Dose: 40 mg Sodium Bicarbonate (Sodium Bicarbonate Tab) 650 mg PO TID [facility] Last Admin: 01/25/18 13:53 Dose: 650 mg Tamsulosin HCl (Flomax) 0.4 mg PO DAILY [facility] Last Admin: 01/25/18 11:14 Dose: 0.4 mg - Labs Labs: 01/25/18 06:19 01/25/18 06:17 PT 14.0 SECONDS (9.7-12.2) H 01/13/18 17:42 INR 1.3 01/13/18 17:42 APTT 30 SECONDS (21-34) 01/13/18 17:42
--- NOTE | 2018-01-25 19:34 | CP.PCM.PN ---
<Merlene Winston E - Last Filed: 01/25/18 19:32> Subjective - Date & Time of Evaluation Date of Evaluation: 01/25/18 Time of Evaluation: 07:30 - Subjective Subjective: Cardiology progress note - Dr. Thompson's service Patient was seen and examined at bedside. Patient is extubated and more alert and awake but not oriented. Patient denies any discomfort. Objective - Vital Signs/Intake and Output Vital Signs (last 24 hours): Temp Pulse Resp BP Pulse Ox 97.6 F 72 20 141/71 96 01/25/18 18:57 01/25/18 18:57 01/25/18 18:57 01/25/18 18:57 01/25/18 18:57 Intake and Output: 01/25/18 01/26/18 18:59 06:59 Intake Total 834 Output Total 850 Balance -16 - Medications Medications: Current Medications Dextrose (Dextrose 50% Inj) 0 ml IV STAT PRN; Protocol PRN Reason: Hypoglycemia Protocol Dextrose (Glutose 15) 0 gm PO ONCE PRN; Protocol PRN Reason: Hypoglycemia Protocol Glucagon (Glucagen Diagnostic Kit) 0 mg IM STAT PRN; Protocol PRN Reason: Hypoglycemia Protocol Heparin Sodium (Porcine) (Heparin) 5,000 units SC Q12H [facility] Last Admin: 01/25/18 11:14 Dose: 5,000 units Daptomycin 400 mg/ Sodium (Chloride) 100 mls @ 100 mls/hr IV Q24H NEL PRN Reason: Protocol Stop: 01/27/18 10:01 Last Admin: 01/25/18 11:13 Dose: 100 mls/hr Insulin Aspart (Novolog) 0 unit SC Q6 NEL PRN Reason: Protocol Last Admin: 01/25/18 12:00 Dose: Not Given Insulin Detemir (Levemir) 10 unit SC HS [facility] Last Admin: 01/24/18 21:47 Dose: 10 u Pantoprazole Sodium (Protonix Susp) 40 mg PO DAILY [facility] Last Admin: 01/25/18 11:14 Dose: 40 mg Sodium Bicarbonate (Sodium Bicarbonate Tab) 650 mg PO TID [facility] Last Admin: 01/25/18 13:53 Dose: 650 mg Tamsulosin HCl (Flomax) 0.4 mg PO DAILY [facility] Last Admin: 01/25/18 11:14 Dose: 0.4 mg - Labs Labs: 01/25/18 06:19 09/11/18 06:17 PT 14.0 SECONDS (9.7-12.2) H 01/13/18 17:42 INR 1.3 01/13/18 17:42 APTT 30 SECONDS (21-34) 01/13/18 17:42 - Constitutional Appears: Well, No Acute Distress - Head Exam Head Exam: ATRAUMATIC, NORMAL INSPECTION - Eye Exam Eye Exam: EOMI, Normal appearance - ENT Exam ENT Exam: Mucous Membranes Moist - Respiratory Exam Respiratory Exam: NORMAL BREATHING PATTERN - Cardiovascular Exam Cardiovascular Exam: REGULAR RHYTHM - GI/Abdominal Exam GI & Abdominal Exam: Soft, Normal Bowel Sounds - Extremities Exam Extremities Exam: Normal Inspection - Neurological Exam Neurological Exam: Alert, Awake, Oriented x3 - Psychiatric Exam Psychiatric exam: Normal Affect Assessment and Plan (1) CHF (congestive heart failure) Assessment & Plan: EF approx 15-20% with noted severe LV global hypokinesia. Diastolic dysfunction cannot be determined. Moderately reduced systolic function. Refer to complete report. Patient is not a good candidate for lifevest due to severe dementia, will reevaluate Will have to follow up with care home or patient's family members for more information. Will medically optimize in light of chronic illness. Has been hypotensive- closely monitor BP at this time - Recommendations to continue treating underlying infection. Continue Status: Chronic (2) MRSA (methicillin resistant Staphylococcus aureus) septicemia Assessment & Plan: Daptomycin 400mg IV q24h Status: Acute (3) Diabetes mellitus Assessment & Plan: On ISS Accuchecks Continued management Status: Chronic (4) Dementia Assessment & Plan: May need some form of maintenance therapy. Continued management per primary Status: Chronic (5) Prophylactic measure Assessment & Plan: PPI 40 mg IV daily SCDs Heparin 5,000 SC Q12 No further cardiac intervention at this time All plans and management discussed with Dr. Thompson Status: Acute <Real Thompson - Last Filed: 01/25/18 22:20> Objective - Vital Signs/Intake and Output Vital Signs (last 24 hours): Temp Pulse Resp BP Pulse Ox 97.6 F 72 20 141/71 96 01/25/18 18:57 01/25/18 18:57 01/25/18 18:57 01/25/18 18:57 01/25/18 18:57 Intake and Output: 01/25/18 01/26/18 18:59 06:59 Intake Total 834 Output Total 850 Balance -16 - Medications Medications: Current Medications Dextrose (Dextrose 50% Inj) 0 ml IV STAT PRN; Protocol PRN Reason: Hypoglycemia Protocol Dextrose (Glutose 15) 0 gm PO ONCE PRN; Protocol PRN Reason: Hypoglycemia Protocol Glucagon (Glucagen Diagnostic Kit) 0 mg IM STAT PRN; Protocol PRN Reason: Hypoglycemia Protocol Heparin Sodium (Porcine) (Heparin) 5,000 units SC Q12H [facility] Last Admin: 01/25/18 21:52 Dose: 5,000 units Daptomycin 400 mg/ Sodium (Chloride) 100 mls @ 100 mls/hr IV Q24H NEL PRN Reason: Protocol Stop: 01/27/18 10:01 Last Admin: 01/25/18 11:13 Dose: 100 mls/hr Insulin Aspart (Novolog) 0 unit SC Q6 NEL PRN Reason: Protocol Last Admin: 01/25/18 19:00 Dose: 3 units Insulin Detemir (Levemir) 10 unit SC HS [facility] Last Admin: 01/25/18 21:53 Dose: 10 u Pantoprazole Sodium (Protonix Susp) 40 mg PO DAILY [facility] Last Admin: 01/25/18 11:14 Dose: 40 mg Sodium Bicarbonate (Sodium Bicarbonate Tab) 650 mg PO TID [facility] Last Admin: 01/25/18 19:00 Dose: 650 mg Tamsulosin HCl (Flomax) 0.4 mg PO DAILY [facility] Last Admin: 01/25/18 11:14 Dose: 0.4 mg - Labs Labs: 01/25/18 06:19 01/25/18 06:17 PT 14.0 SECONDS (9.7-12.2) H 01/13/18 17:42 INR 1.3 01/13/18 17:42 APTT 30 SECONDS (21-34) 01/13/18 17:42 Assessment and Plan - Assessment and Plan (Free Text) Assessment: Patient seen and evaluated personally by mn Plan of care d/w the medical psychotherapist and as documented
[2018-01-25] MEDS: Insulin Detemir 100 units/ml Vial (Levemir) SC SCH (21:53)
[2018-01-26] MEDS: (Novolog) Insulin Aspart, Recombinant 100 u/ml 10 ml vial SC SCH ×4 (00:30→18:00)
[2018-01-26] MEDS: Pantoprazole 40 mg Susp UD PO SCH (10:57)
--- NOTE | 2018-01-26 12:53 | CP.PCM.PN ---
Subjective - Date & Time of Evaluation Date of Evaluation: 01/26/18 Time of Evaluation: 07:15 - Subjective Subjective: clinically same Objective - Vital Signs/Intake and Output Vital Signs (last 24 hours): Temp Pulse Resp BP Pulse Ox 98.1 F 98 H 20 140/72 98 01/26/18 07:00 01/26/18 07:00 01/26/18 07:00 01/26/18 07:00 01/26/18 07:00 Intake and Output: 01/26/18 01/26/18 06:59 18:59 Intake Total 120 Output Total 50 Balance 70 - Medications Medications: Current Medications Dextrose (Dextrose 50% Inj) 0 ml IV STAT PRN; Protocol PRN Reason: Hypoglycemia Protocol Dextrose (Glutose 15) 0 gm PO ONCE PRN; Protocol PRN Reason: Hypoglycemia Protocol Glucagon (Glucagen Diagnostic Kit) 0 mg IM STAT PRN; Protocol PRN Reason: Hypoglycemia Protocol Heparin Sodium (Porcine) (Heparin) 5,000 units SC Q12H [facility] Last Admin: 01/26/18 10:57 Dose: 5,000 units Daptomycin 400 mg/ Sodium (Chloride) 100 mls @ 100 mls/hr IV Q24H NEL PRN Reason: Protocol Stop: 01/27/18 10:01 Last Admin: 01/26/18 11:11 Dose: 100 mls/hr Insulin Aspart (Novolog) 0 unit SC Q6 NEL PRN Reason: Protocol Last Admin: 01/26/18 11:54 Dose: Not Given Insulin Detemir (Levemir) 10 unit SC HS [facility] Last Admin: 01/25/18 21:53 Dose: 10 u Pantoprazole Sodium (Protonix Susp) 40 mg PO DAILY [facility] Last Admin: 01/26/18 10:57 Dose: 40 mg Sodium Bicarbonate (Sodium Bicarbonate Tab) 650 mg PO TID [facility] Last Admin: 01/26/18 10:57 Dose: 650 mg Tamsulosin HCl (Flomax) 0.4 mg PO DAILY [facility] Last Admin: 01/26/18 10:57 Dose: 0.4 mg - Labs Labs: 01/25/18 06:19 01/25/18 06:17 PT 14.0 SECONDS (9.7-12.2) H 01/13/18 17:42 INR 1.3 01/13/18 17:42 APTT 30 SECONDS (21-34) 01/13/18 17:42 - Constitutional Appears: Non-toxic, No Acute Distress - Head Exam Head Exam: ATRAUMATIC - Eye Exam Eye Exam: Normal appearance - ENT Exam ENT Exam: Mucous Membranes Moist, Normal Exam - Neck Exam Neck Exam: Normal Inspection - Respiratory Exam Respiratory Exam: Decreased Breath Sounds - Cardiovascular Exam Cardiovascular Exam: +S1, +S2 - GI/Abdominal Exam GI & Abdominal Exam: Diminished Bowel Sounds - Rectal Exam Rectal Exam: Deferred Assessment and Plan (1) JOY (acute kidney injury) Status: Acute (2) Change in mental status Status: Acute (3) Electrolyte imbalance Status: Acute (4) MRSA (methicillin resistant Staphylococcus aureus) septicemia Status: Acute (5) NSTEMI (non-ST elevated myocardial infarction) Status: Acute (6) Prophylactic measure Status: Acute (7) UTI (urinary tract infection) Status: Acute (8) CHF (congestive heart failure) Status: Chronic (9) CKD (chronic kidney disease) Status: Chronic (10) Diabetes mellitus Status: Chronic (11) Afib Status: Acute (12) Anemia Status: Acute (13) Bilateral hydronephrosis Status: Acute (14) CKD (chronic kidney disease) stage 4, GFR 15-29 ml/min Status: Acute (15) Metabolic acidosis Status: Acute (16) Dementia Status: Chronic - Assessment and Plan (Free Text) Plan: pt seen and examined at bedside overnight events noted labs and meds reviewed creat back to Norm, BUN still high IV hydration ID followup antibiotics accuchecks tight glycemic control blood pressure control dvt/gi px fup with labs monitor electrolytes
--- NOTE | 2018-01-26 14:08 | NM ---
Date of service: 01/26/2018 PROCEDURE: Three-phase Bone Scan HISTORY: sacral ulcer,heel ulcer r/o osteomyelitis COMPARISON: 01/15/2018 CT abdomen and pelvis including sacrum, presacral region TECHNIQUE: Following administration of 23.0 miCu of Tc MDP lower extremity three-phase bone scan performed. . FINDINGS: Flow component: Symmetrical, increase flow to both lower extremities Blood pool component: Accumulation of radionuclide within the soft tissues at the level of both calcanei. Delayed images at 3:00: Increased uptake in the right 2nd metatarsal. Additional abnormalities, posttraumatic or degenerative changes in both knees. On the blood pool and delayed images no abnormalities identified with suspected visible osseous structures. Other findings: None. IMPRESSION: Findings consistent with cellulitis both lower extremity without acute osseous abnormality. No evidence of sacral/pelvic osseous abnormality is to suggest an acute inflammatory process.
--- NOTE | 2018-01-26 14:11 | CP.PCM.PN ---
<CatrachitoSalomelo E - Last Filed: 01/26/18 14:28> Subjective - Date & Time of Evaluation Date of Evaluation: 01/26/18 Time of Evaluation: 10:00 - Subjective Subjective: Cardiology progress note ( Dr. Thompson's service) Patient was seen and examined at bedside. Patient is clinically the same with no acute issues as per nursing. Patient is alert, awake but not oriented. Patient denies any complaints. Objective - Vital Signs/Intake and Output Vital Signs (last 24 hours): Temp Pulse Resp BP Pulse Ox 98.1 F 98 H 20 140/72 98 01/26/18 07:00 01/26/18 07:00 01/26/18 07:00 01/26/18 07:00 01/26/18 07:00 Intake and Output: 01/26/18 01/26/18 06:59 18:59 Intake Total 120 Output Total 50 Balance 70 - Medications Medications: Current Medications Dextrose (Dextrose 50% Inj) 0 ml IV STAT PRN; Protocol PRN Reason: Hypoglycemia Protocol Dextrose (Glutose 15) 0 gm PO ONCE PRN; Protocol PRN Reason: Hypoglycemia Protocol Glucagon (Glucagen Diagnostic Kit) 0 mg IM STAT PRN; Protocol PRN Reason: Hypoglycemia Protocol Heparin Sodium (Porcine) (Heparin) 5,000 units SC Q12H [facility] Last Admin: 01/26/18 10:57 Dose: 5,000 units Daptomycin 400 mg/ Sodium (Chloride) 100 mls @ 100 mls/hr IV Q24H NEL PRN Reason: Protocol Stop: 01/27/18 10:01 Last Admin: 01/26/18 11:11 Dose: 100 mls/hr Insulin Aspart (Novolog) 0 unit SC Q6 NEL PRN Reason: Protocol Last Admin: 01/26/18 11:54 Dose: Not Given Insulin Detemir (Levemir) 10 unit SC HS [facility] Last Admin: 01/25/18 21:53 Dose: 10 u Pantoprazole Sodium (Protonix Susp) 40 mg PO DAILY [facility] Last Admin: 01/26/18 10:57 Dose: 40 mg Sodium Bicarbonate (Sodium Bicarbonate Tab) 650 mg PO TID [facility] Last Admin: 01/26/18 10:57 Dose: 650 mg Tamsulosin HCl (Flomax) 0.4 mg PO DAILY [facility] Last Admin: 01/26/18 10:57 Dose: 0.4 mg - Labs Labs: 01/25/18 06:19 01/25/18 06:17 PT 14.0 SECONDS (9.7-12.2) H 01/13/18 17:42 INR 1.3 01/13/18 17:42 APTT 30 SECONDS (21-34) 01/13/18 17:42 - Constitutional Appears: No Acute Distress - Head Exam Head Exam: ATRAUMATIC - Eye Exam Eye Exam: EOMI - Respiratory Exam Respiratory Exam: NORMAL BREATHING PATTERN - Cardiovascular Exam Cardiovascular Exam: REGULAR RHYTHM, +S1, +S2 - Extremities Exam Extremities Exam: absent: Calf Tenderness, Pedal Edema - Neurological Exam Neurological Exam: Alert, Awake. absent: Oriented x3 Assessment and Plan (1) CHF (congestive heart failure) Assessment & Plan: EF approx 15-20% with noted severe LV global hypokinesia. Diastolic dysfunction cannot be determined. Moderately reduced systolic function. Refer to complete report. Patient is not a good candidate for lifevest due to severe dementia. We start heart failure therapy as patient is no longer hypotensive: * Cozaar 25mg PO daily * ASA 81mg PO daily * Lopressor 12.5 mg PO BID Status: Chronic (2) MRSA (methicillin resistant Staphylococcus aureus) septicemia Assessment & Plan: Daptomycin 400mg IV q24h Status: Acute (3) Diabetes mellitus Assessment & Plan: Accuchecks Levemir 10 units SC HS ISS- Medium dose Status: Chronic (4) Dementia Assessment & Plan: May need some form of maintenance therapy. Continued management per primary Status: Chronic (5) Prophylactic measure Assessment & Plan: PPI 40 mg IV daily SCDs Heparin 5,000 SC Q12 No further cardiac intervention at this time All plans and management discussed with Dr. Thompson Status: Acute <Real Thompson - Last Filed: 01/26/18 22:40> Objective - Vital Signs/Intake and Output Vital Signs (last 24 hours): Temp Pulse Resp BP Pulse Ox 97.6 F 71 20 140/65 98 01/26/18 16:00 01/26/18 16:00 01/26/18 16:00 01/26/18 16:00 01/26/18 16:00 Intake and Output: 01/26/18 01/27/18 18:59 06:59 Intake Total 600 250 Output Total 300 Balance 300 250 - Medications Medications: Current Medications Aspirin (Aspirin Chewable) 81 mg PO DAILY [facility] Dextrose (Dextrose 50% Inj) 0 ml IV STAT PRN; Protocol PRN Reason: Hypoglycemia Protocol Dextrose (Glutose 15) 0 gm PO ONCE PRN; Protocol PRN Reason: Hypoglycemia Protocol Glucagon (Glucagen Diagnostic Kit) 0 mg IM STAT PRN; Protocol PRN Reason: Hypoglycemia Protocol Heparin Sodium (Porcine) (Heparin) 5,000 units SC Q12H [facility] Last Admin: 01/26/18 21:47 Dose: 5,000 units Daptomycin 400 mg/ Sodium (Chloride) 100 mls @ 100 mls/hr IV Q24H [facility]EL PRN Reason: Protocol Stop: 01/27/18 10:01 Last Admin: 01/26/18 11:11 Dose: 100 mls/hr Insulin Aspart (Novolog) 0 unit SC Q6 [facility] PRN Reason: Protocol Last Admin: 01/26/18 18:00 Dose: Not Given Insulin Detemir (Levemir) 10 unit SC HS [facility] Last Admin: 01/26/18 21:48 Dose: 10 u Losartan Potassium (Cozaar) 25 mg PO DAILY [facility] Metoprolol Tartrate (Lopressor) 12.5 mg PO BID [facility] Last Admin: 01/26/18 17:42 Dose: 12.5 mg Pantoprazole Sodium (Protonix Susp) 40 mg PO DAILY [facility] Last Admin: 01/26/18 10:57 Dose: 40 mg Sodium Bicarbonate (Sodium Bicarbonate Tab) 650 mg PO TID [facility] Last Admin: 01/26/18 17:42 Dose: 650 mg Tamsulosin HCl (Flomax) 0.4 mg PO DAILY [facility] Last Admin: 01/26/18 10:57 Dose: 0.4 mg - Labs Labs: 01/25/18 06:19 01/25/18 06:17 PT 14.0 SECONDS (9.7-12.2) H 01/13/18 17:42 INR 1.3 01/13/18 17:42 APTT 30 SECONDS (21-34) 01/13/18 17:42 Assessment and Plan - Assessment and Plan (Free Text) Assessment: Patient seen and evaluated personally by [place] Plan of care d/w the medical cash poster and as documented
[2018-01-26] MEDS: Insulin Detemir 100 units/ml Vial (Levemir) SC SCH (21:48)
[2018-01-27] MEDS: (Novolog) Insulin Aspart, Recombinant 100 u/ml 10 ml vial SC SCH ×4 (00:41→18:38)
[2018-01-27] MEDS: Pantoprazole 40 mg Susp UD PO SCH (09:41)
--- NOTE | 2018-01-27 10:25 | CP.PCM.PN ---
Subjective - Date & Time of Evaluation Date of Evaluation: 01/27/18 Time of Evaluation: 07:00 - Subjective Subjective: clinically same Objective - Vital Signs/Intake and Output Vital Signs (last 24 hours): Temp Pulse Resp BP Pulse Ox 98.9 F 66 20 132/71 94 L 01/27/18 07:46 01/27/18 07:46 01/27/18 07:46 01/27/18 07:46 01/27/18 00:00 Intake and Output: 01/27/18 01/27/18 06:59 18:59 Intake Total 300 700 Balance 300 700 - Medications Medications: Current Medications Acetaminophen (Tylenol 325mg Tab) 650 mg PO Q6 PRN PRN Reason: Fever >100.4 F Last Admin: 01/27/18 03:58 Dose: 650 mg Aspirin (Aspirin Chewable) 81 mg PO DAILY [facility] Last Admin: 01/27/18 09:42 Dose: 81 mg Dextrose (Dextrose 50% Inj) 0 ml IV STAT PRN; Protocol PRN Reason: Hypoglycemia Protocol Dextrose (Glutose 15) 0 gm PO ONCE PRN; Protocol PRN Reason: Hypoglycemia Protocol Glucagon (Glucagen Diagnostic Kit) 0 mg IM STAT PRN; Protocol PRN Reason: Hypoglycemia Protocol Heparin Sodium (Porcine) (Heparin) 5,000 units SC Q12H [facility] Last Admin: 01/27/18 09:41 Dose: 5,000 units Insulin Aspart (Novolog) 0 unit SC Q6 [facility] PRN Reason: Protocol Last Admin: 01/27/18 06:50 Dose: Not Given Insulin Detemir (Levemir) 10 unit SC HS [facility] Last Admin: 01/26/18 21:48 Dose: 10 u Losartan Potassium (Cozaar) 25 mg PO DAILY [facility] Last Admin: 01/27/18 09:42 Dose: 25 mg Metoprolol Tartrate (Lopressor) 12.5 mg PO BID [facility] Last Admin: 01/27/18 09:42 Dose: 12.5 mg Pantoprazole Sodium (Protonix Susp) 40 mg PO DAILY [facility] Last Admin: 01/27/18 09:41 Dose: 40 mg Sodium Bicarbonate (Sodium Bicarbonate Tab) 650 mg PO TID [facility] Last Admin: 01/27/18 09:42 Dose: 650 mg Tamsulosin HCl (Flomax) 0.4 mg PO DAILY [facility] Last Admin: 01/27/18 09:42 Dose: 0.4 mg - Labs Labs: 01/25/18 06:19 01/25/18 06:17 PT 14.0 SECONDS (9.7-12.2) H 01/13/18 17:42 INR 1.3 01/13/18 17:42 APTT 30 SECONDS (21-34) 01/13/18 17:42 - Constitutional Appears: Non-toxic, No Acute Distress - Head Exam Head Exam: NORMAL INSPECTION - Eye Exam Eye Exam: Normal appearance - ENT Exam ENT Exam: Mucous Membranes Moist, Normal Exam - Neck Exam Neck Exam: Normal Inspection - Respiratory Exam Respiratory Exam: Decreased Breath Sounds - Cardiovascular Exam Cardiovascular Exam: +S1, +S2 - GI/Abdominal Exam GI & Abdominal Exam: Diminished Bowel Sounds - Rectal Exam Rectal Exam: Deferred Assessment and Plan (1) JOY (acute kidney injury) Status: Acute (2) Change in mental status Status: Acute (3) Electrolyte imbalance Status: Acute (4) MRSA (methicillin resistant Staphylococcus aureus) septicemia Status: Acute (5) NSTEMI (non-ST elevated myocardial infarction) Status: Acute (6) Prophylactic measure Status: Acute (7) UTI (urinary tract infection) Status: Acute (8) CHF (congestive heart failure) Status: Chronic (9) CKD (chronic kidney disease) Status: Chronic (10) Diabetes mellitus Status: Chronic (11) Afib Status: Acute (12) Anemia Status: Acute (13) Bilateral hydronephrosis Status: Acute (14) CKD (chronic kidney disease) stage 4, GFR 15-29 ml/min Status: Acute (15) Metabolic acidosis Status: Acute (16) Dementia Status: Chronic - Assessment and Plan (Free Text) Plan: Patient seen and examined at bedside Labs noted Low hemoglobin level Monitor H&H Monitor input and output Heparin Soda bicarb Continue aspirin Levemir Blood pressure meds monitor electrolytes
--- NOTE | 2018-01-27 19:22 | CP.PCM.PN ---
Subjective - Date & Time of Evaluation Date of Evaluation: 01/27/18 Time of Evaluation: 19:15 - Subjective Subjective: Pt was seen on 01/21 pt is still is disoriented. urine and blood + MRSA.cardiology eval shows 15% ejection fraction ct shows nonspecific findings consistant with infection. A MRSA uti. The pts cardiac status precludes instrumention at time treat MRSA sepsis with full course course of antibiotics Change geronimo on last day of treatment No further gu RX unless pt can be cleared cardiac bear Objective - Vital Signs/Intake and Output Vital Signs (last 24 hours): Temp Pulse Resp BP Pulse Ox 97.7 F 66 20 142/78 100 01/27/18 16:00 01/27/18 16:00 01/27/18 16:00 01/27/18 16:00 01/27/18 16:00 Intake and Output: 01/27/18 01/28/18 18:59 06:59 Intake Total 1100 Output Total 300 Balance 800 - Medications Medications: Current Medications Acetaminophen (Tylenol 325mg Tab) 650 mg PO Q6 PRN PRN Reason: Fever >100.4 F Last Admin: 01/27/18 03:58 Dose: 650 mg Aspirin (Aspirin Chewable) 81 mg PO DAILY [facility] Last Admin: 01/27/18 09:42 Dose: 81 mg Dextrose (Dextrose 50% Inj) 0 ml IV STAT PRN; Protocol PRN Reason: Hypoglycemia Protocol Dextrose (Glutose 15) 0 gm PO ONCE PRN; Protocol PRN Reason: Hypoglycemia Protocol Glucagon (Glucagen Diagnostic Kit) 0 mg IM STAT PRN; Protocol PRN Reason: Hypoglycemia Protocol Heparin Sodium (Porcine) (Heparin) 5,000 units SC Q12H [facility] Last Admin: 01/27/18 09:41 Dose: 5,000 units Insulin Aspart (Novolog) 0 unit SC Q6 [facility] PRN Reason: Protocol Last Admin: 01/27/18 18:38 Dose: 2 units Insulin Detemir (Levemir) 10 unit SC HS [facility] Last Admin: 01/26/18 21:48 Dose: 10 u Losartan Potassium (Cozaar) 25 mg PO DAILY [facility] Last Admin: 01/27/18 09:42 Dose: 25 mg Metoprolol Tartrate (Lopressor) 12.5 mg PO BID [facility] Last Admin: 01/27/18 17:47 Dose: 12.5 mg Pantoprazole Sodium (Protonix Susp) 40 mg PO DAILY [facility] Last Admin: 01/27/18 09:41 Dose: 40 mg Sodium Bicarbonate (Sodium Bicarbonate Tab) 650 mg PO TID [facility] Last Admin: 01/27/18 17:47 Dose: 650 mg Tamsulosin HCl (Flomax) 0.4 mg PO DAILY [facility] Last Admin: 01/27/18 09:42 Dose: 0.4 mg - Labs Labs: 01/25/18 06:19 01/25/18 06:17 PT 14.0 SECONDS (9.7-12.2) H 01/13/18 17:42 INR 1.3 01/13/18 17:42 APTT 30 SECONDS (21-34) 01/13/18 17:42
[2018-01-27] MEDS: Insulin Detemir 100 units/ml Vial (Levemir) SC SCH (21:08)
[2018-01-28] MEDS: (Novolog) Insulin Aspart, Recombinant 100 u/ml 10 ml vial SC SCH ×4 (01:00→18:13)
[2018-01-28 08:07] LABS: BASO # 0.1 K/uL (0.0-0.2); BASO % 0.9 % (0.0-2.0); EOS # 0.2 K/uL (0.0-0.7); EOS % 2.9 % (0.0-4.0); LYMPH # 1.2 K/uL (1.0-4.3); LYMPH % 15.7 % (20.0-40.0); MEAN CELL VOLUME 85.6 fL (80.0-94.0); MEAN CORPUSCULAR HEMOGLOBIN 28.4 pg (27.0-31.0); MEAN CORPUSCULAR HGB CONC 33.2 g/dL (33.0-37.0); MEAN PLATELET VOLUME 7.3 fL (7.2-11.7); MONO # 0.5 K/uL (0.0-0.8); MONO % 6.7 % (0.0-10.0); NEUT # 5.8 K/uL (1.8-7.0); NEUT % 73.8 % (50.0-75.0); NRBC % 0.1 % (0.0-2.0); RBC 3.68 Mil/uL (4.40-5.90); RED CELL DISTRIBUTION WIDTH 16.7 % (11.5-14.5); WHITE BLOOD COUNT 7.8 K/uL (4.8-10.8)
[2018-01-28 08:31] LABS: HEMOGLOBIN 10.5 g/dL (12.0-18.0)
[2018-01-28 08:34] LABS: CALCIUM 10.3 mg/dl (8.6-10.4)
[2018-01-28] MEDS: Pantoprazole 40 mg Susp UD PO SCH (10:40)
--- NOTE | 2018-01-28 13:45 | CP.PCM.PN ---
Subjective - Date & Time of Evaluation Date of Evaluation: 01/28/18 Time of Evaluation: 13:00 - Subjective Subjective: dictated Objective - Vital Signs/Intake and Output Vital Signs (last 24 hours): Temp Pulse Resp BP Pulse Ox 97.5 F L 75 18 141/71 99 01/28/18 08:23 01/28/18 08:23 01/28/18 08:23 01/28/18 08:23 01/28/18 08:23 Intake and Output: 01/28/18 01/28/18 06:59 18:59 Intake Total 200 Balance 200 - Medications Medications: Current Medications Acetaminophen (Tylenol 325mg Tab) 650 mg PO Q6 PRN PRN Reason: Fever >100.4 F Last Admin: 01/27/18 03:58 Dose: 650 mg Aspirin (Aspirin Chewable) 81 mg PO DAILY [facility] Last Admin: 01/28/18 10:40 Dose: 81 mg Dextrose (Dextrose 50% Inj) 0 ml IV STAT PRN; Protocol PRN Reason: Hypoglycemia Protocol Dextrose (Glutose 15) 0 gm PO ONCE PRN; Protocol PRN Reason: Hypoglycemia Protocol Glucagon (Glucagen Diagnostic Kit) 0 mg IM STAT PRN; Protocol PRN Reason: Hypoglycemia Protocol Daptomycin 400 mg/ Sodium (Chloride) 100 mls @ 100 mls/hr IV Q24H [facility] PRN Reason: Protocol Stop: 02/02/18 16:01 Telavancin 750 mg/ Dextrose 100 mls @ 100 mls/hr IVPB Q24H [facility] PRN Reason: Protocol Insulin Aspart (Novolog) 0 unit SC Q6 [facility] PRN Reason: Protocol Last Admin: 01/28/18 11:59 Dose: Not Given Insulin Detemir (Levemir) 10 unit SC HS [facility] Last Admin: 01/27/18 21:08 Dose: 10 u Losartan Potassium (Cozaar) 25 mg PO DAILY [facility] Last Admin: 01/28/18 10:40 Dose: 25 mg Metoprolol Tartrate (Lopressor) 12.5 mg PO BID [facility] Last Admin: 01/28/18 10:40 Dose: 12.5 mg Pantoprazole Sodium (Protonix Susp) 40 mg PO DAILY [facility] Last Admin: 01/28/18 10:40 Dose: 40 mg Sodium Bicarbonate (Sodium Bicarbonate Tab) 650 mg PO TID [facility] Last Admin: 01/28/18 13:25 Dose: 650 mg Tamsulosin HCl (Flomax) 0.4 mg PO DAILY [facility] Last Admin: 01/28/18 10:40 Dose: 0.4 mg - Labs Labs: 01/28/18 07:48 01/28/18 07:48 PT 14.0 SECONDS (9.7-12.2) H 01/13/18 17:42 INR 1.3 01/13/18 17:42 APTT 30 SECONDS (21-34) 01/13/18 17:42
--- NOTE | 2018-01-28 15:42 | CP.PCM.PN ---
Subjective - Date & Time of Evaluation Date of Evaluation: 01/28/18 Time of Evaluation: 09:00 - Subjective Subjective: clinically same Objective - Vital Signs/Intake and Output Vital Signs (last 24 hours): Temp Pulse Resp BP Pulse Ox 97.5 F L 75 18 141/71 99 01/28/18 08:23 01/28/18 08:23 01/28/18 08:23 01/28/18 08:23 01/28/18 08:23 Intake and Output: 01/28/18 01/28/18 06:59 18:59 Intake Total 200 Output Total 450 Balance 200 -450 - Medications Medications: Current Medications Acetaminophen (Tylenol 325mg Tab) 650 mg PO Q6 PRN PRN Reason: Fever >100.4 F Last Admin: 01/27/18 03:58 Dose: 650 mg Aspirin (Aspirin Chewable) 81 mg PO DAILY [facility] Last Admin: 01/28/18 10:40 Dose: 81 mg Dextrose (Dextrose 50% Inj) 0 ml IV STAT PRN; Protocol PRN Reason: Hypoglycemia Protocol Dextrose (Glutose 15) 0 gm PO ONCE PRN; Protocol PRN Reason: Hypoglycemia Protocol Glucagon (Glucagen Diagnostic Kit) 0 mg IM STAT PRN; Protocol PRN Reason: Hypoglycemia Protocol Daptomycin 400 mg/ Sodium (Chloride) 100 mls @ 100 mls/hr IV Q24H [facility] PRN Reason: Protocol Stop: 02/02/18 16:01 Telavancin 750 mg/ Dextrose 100 mls @ 100 mls/hr IVPB Q24H [facility] PRN Reason: Protocol Insulin Aspart (Novolog) 0 unit SC Q6 [facility] PRN Reason: Protocol Last Admin: 01/28/18 11:59 Dose: Not Given Insulin Detemir (Levemir) 10 unit SC HS [facility] Last Admin: 01/27/18 21:08 Dose: 10 u Losartan Potassium (Cozaar) 25 mg PO DAILY [facility] Last Admin: 01/28/18 10:40 Dose: 25 mg Metoprolol Tartrate (Lopressor) 12.5 mg PO BID [facility] Last Admin: 01/28/18 10:40 Dose: 12.5 mg Pantoprazole Sodium (Protonix Susp) 40 mg PO DAILY [facility] Last Admin: 01/28/18 10:40 Dose: 40 mg Sodium Bicarbonate (Sodium Bicarbonate Tab) 650 mg PO TID [facility] Last Admin: 01/28/18 13:25 Dose: 650 mg Tamsulosin HCl (Flomax) 0.4 mg PO DAILY [facility] Last Admin: 01/28/18 10:40 Dose: 0.4 mg - Labs Labs: 01/28/18 07:48 01/28/18 07:48 PT 14.0 SECONDS (9.7-12.2) H 01/13/18 17:42 INR 1.3 01/13/18 17:42 APTT 30 SECONDS (21-34) 01/13/18 17:42 Assessment and Plan (1) JOY (acute kidney injury) Status: Acute (2) Change in mental status Status: Acute (3) Electrolyte imbalance Status: Acute (4) MRSA (methicillin resistant Staphylococcus aureus) septicemia Status: Acute (5) NSTEMI (non-ST elevated myocardial infarction) Status: Acute (6) Prophylactic measure Status: Acute (7) UTI (urinary tract infection) Status: Acute (8) CHF (congestive heart failure) Status: Chronic (9) CKD (chronic kidney disease) Status: Chronic (10) Diabetes mellitus Status: Chronic (11) Afib Status: Acute (12) Anemia Status: Acute (13) Bilateral hydronephrosis Status: Acute (14) CKD (chronic kidney disease) stage 4, GFR 15-29 ml/min Status: Acute (15) Metabolic acidosis Status: Acute (16) Dementia Status: Chronic - Assessment and Plan (Free Text) Plan: Patient seen and examined at bedside Labs and meds reviewed Events noted Monitor vitals Monitor input and output Hemoglobin better 10.5 Uncontrolled blood sugar level Diabetic meds Blood pressure control Monitor electrolytes
[2018-01-28] MEDS ORDERED: Telavancin Hydrochloride 750 MG in Dextrose 5% In Water 100 ML IVPB ONE (18:00)
[2018-01-28] MEDS: Potassium Ch 20mEq in D5W 1,000 ML IV SCH (20:57)
[2018-01-28] MEDS: Insulin Detemir 100 units/ml Vial (Levemir) SC SCH (22:28)
--- NOTE | 2018-01-29 00:39 | PN ---
DATE: 01/28/2018 SUBJECTIVE: The patient is afebrile. He was very lethargic; however, I have been trying to reach his POA as I called and the machine was full for the number I was given for NOEMI, and so it was very difficult. I would want a EMILIANO done. Blood culture today still came out positive. Hence, I have added telavancin and I may have to decrease the dose pharmacy says. I would leave him on Cubicin. He has had MRSA in the urine. 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 Urologist is not planning anything because of his poor ejection fraction. I am not sure if I will be able to eradicate MRSA. As he remains persistently septic and may probably have endocarditis right now, I have added another medication and will follow. However, the patient remains lethargic. He is on one-to-one. He did eat his breakfast, he just told me. PHYSICAL EXAMINATION: VITAL SIGNS: T-max is today 97.7, pulse 69, blood pressure 135/67, respirations are 20. HEENT: Head is atraumatic and normocephalic. NECK: Supple. LUNGS: Clear. HEART: S1, S2 are regular. ABDOMEN: Soft. Nontender. He has a colostomy. EXTREMITIES: Have no edema. ASSESSMENT AND PLAN: He remains on daptomycin, which we restarted as it fell off, but he did get it . We gave him telavancin today 750 mg, and I am going to order it at 500 mg as suggested by the pharmacy because of his renal issues. Impression is, he has persistent methicillin-resistant Staphylococcus aureus, rule out endocarditis, probably secondary to urinary tract infection and prostatitis. The patient is noncommunicable. Hence, we do not have much of a history. We will keep him on telavancin 500 mg daily. We will follow. Also to continue with Cubicin double coverage because we are not able to get his bacteremia cleared. We will follow. Teresa Barnett MD
[2018-01-29] MEDS: (Novolog) Insulin Aspart, Recombinant 100 u/ml 10 ml vial SC SCH ×4 (00:46→17:47)
[2018-01-29] MEDS: Pantoprazole 40 mg Susp UD PO SCH (11:36)
[2018-01-29] MEDS: Potassium Ch 20mEq in D5W 1,000 ML IV SCH (13:49)
--- NOTE | 2018-01-29 15:34 | CP.PCM.PN ---
Subjective - Date & Time of Evaluation Date of Evaluation: 01/29/18 Time of Evaluation: 09:45 - Subjective Subjective: clinically same Objective - Vital Signs/Intake and Output Vital Signs (last 24 hours): Temp Pulse Resp BP Pulse Ox 98.3 F 83 18 135/69 98 01/29/18 07:00 01/29/18 07:00 01/29/18 07:00 01/29/18 07:00 01/29/18 07:00 Intake and Output: 01/29/18 01/29/18 06:59 18:59 Intake Total 980 Output Total 200 Balance 780 - Medications Medications: Current Medications Acetaminophen (Tylenol 325mg Tab) 650 mg PO Q6 PRN PRN Reason: Fever >100.4 F Last Admin: 01/27/18 03:58 Dose: 650 mg Aspirin (Aspirin Chewable) 81 mg PO DAILY [facility] Last Admin: 01/29/18 11:36 Dose: 81 mg Daptomycin 400 mg/ Sodium (Chloride) 100 mls @ 100 mls/hr IV Q24H [facility] PRN Reason: Protocol Stop: 02/02/18 16:01 Last Admin: 01/28/18 17:21 Dose: 100 mls/hr Potassium Chloride/Dextrose (Potassium Chl 20 Meq In D5w) 1,000 mls @ 60 mls/hr IV .[id number] [facility] Last Admin: 01/29/18 13:49 Dose: 60 mls/hr Telavancin 500 mg/ Sodium (Chloride) 100 mls @ 100 mls/hr IVPB Q24H [facility] PRN Reason: Protocol Insulin Aspart (Novolog) 0 unit SC Q6 [facility] PRN Reason: Protocol Last Admin: 01/29/18 13:49 Dose: 4 units Insulin Detemir (Levemir) 10 unit SC HS [facility] Last Admin: 01/28/18 22:28 Dose: 10 u Losartan Potassium (Cozaar) 25 mg PO DAILY [facility] Last Admin: 01/29/18 11:36 Dose: 25 mg Metoprolol Tartrate (Lopressor) 12.5 mg PO BID [facility] Last Admin: 01/29/18 11:36 Dose: 12.5 mg Pantoprazole Sodium (Protonix Susp) 40 mg PO DAILY [facility] Last Admin: 01/29/18 11:36 Dose: 40 mg Sodium Bicarbonate (Sodium Bicarbonate Tab) 650 mg PO TID [facility] Last Admin: 01/29/18 14:14 Dose: Not Given Tamsulosin HCl (Flomax) 0.4 mg PO DAILY [facility] Last Admin: 01/29/18 11:36 Dose: 0.4 mg - Labs Labs: 01/28/18 07:48 01/28/18 07:48 PT 14.0 SECONDS (9.7-12.2) H 01/13/18 17:42 INR 1.3 01/13/18 17:42 APTT 30 SECONDS (21-34) 01/13/18 17:42 - Constitutional Appears: Well - Head Exam Head Exam: ATRAUMATIC, NORMAL INSPECTION, NORMOCEPHALIC - Eye Exam Eye Exam: EOMI, Normal appearance, PERRL Pupil Exam: NORMAL ACCOMODATION, PERRL - ENT Exam ENT Exam: Mucous Membranes Moist, Normal Exam - Neck Exam Neck Exam: Full ROM, Normal Inspection. absent: Lymphadenopathy - Respiratory Exam Respiratory Exam: Decreased Breath Sounds - Cardiovascular Exam Cardiovascular Exam: REGULAR RHYTHM, +S1, +S2 - GI/Abdominal Exam GI & Abdominal Exam: Soft, Diminished Bowel Sounds - Rectal Exam Rectal Exam: Deferred Assessment and Plan - Assessment and Plan (Free Text) Plan: Patient seen and examined at bedside Events noted Discussed with staff Edson Allen Potassium supplement Monitor CMP Monitor CBC Continue aspirin Antibiotics as per ID Supportive care
--- NOTE | 2018-01-29 20:04 | CP.PCM.PN ---
Subjective - Date & Time of Evaluation Date of Evaluation: 01/29/18 Time of Evaluation: 15:00 - Subjective Subjective: dictated Objective - Vital Signs/Intake and Output Vital Signs (last 24 hours): Temp Pulse Resp BP Pulse Ox 97.2 F L 66 20 132/63 100 01/29/18 17:14 01/29/18 17:14 01/29/18 17:14 01/29/18 17:14 01/29/18 17:14 - Medications Medications: Current Medications Acetaminophen (Tylenol 325mg Tab) 650 mg PO Q6 PRN PRN Reason: Fever >100.4 F Last Admin: 01/27/18 03:58 Dose: 650 mg Aspirin (Aspirin Chewable) 81 mg PO DAILY [facility] Last Admin: 01/29/18 11:36 Dose: 81 mg Daptomycin 400 mg/ Sodium (Chloride) 100 mls @ 100 mls/hr IV Q24H [facility] PRN Reason: Protocol Stop: 02/02/18 16:01 Last Admin: 01/29/18 17:46 Dose: 100 mls/hr Potassium Chloride/Dextrose (Potassium Chl 20 Meq In D5w) 1,000 mls @ 60 mls/hr IV .[id number] [facility] Last Admin: 01/29/18 13:49 Dose: 60 mls/hr Telavancin 500 mg/ Sodium (Chloride) 100 mls @ 100 mls/hr IVPB Q24H [facility] PRN Reason: Protocol Insulin Aspart (Novolog) 0 unit SC Q6 [facility] PRN Reason: Protocol Last Admin: 01/29/18 17:47 Dose: 6 units Insulin Detemir (Levemir) 10 unit SC HS [facility] Last Admin: 01/28/18 22:28 Dose: 10 u Losartan Potassium (Cozaar) 25 mg PO DAILY [facility] Last Admin: 01/29/18 11:36 Dose: 25 mg Metoprolol Tartrate (Lopressor) 12.5 mg PO BID [facility] Last Admin: 01/29/18 17:46 Dose: 12.5 mg Pantoprazole Sodium (Protonix Susp) 40 mg PO DAILY [facility] Last Admin: 01/29/18 11:36 Dose: 40 mg Sodium Bicarbonate (Sodium Bicarbonate Tab) 650 mg PO TID [facility] Last Admin: 01/29/18 17:46 Dose: 650 mg Tamsulosin HCl (Flomax) 0.4 mg PO DAILY [facility] Last Admin: 01/29/18 11:36 Dose: 0.4 mg - Labs Labs: 01/28/18 07:48 01/28/18 07:48 PT 14.0 SECONDS (9.7-12.2) H 01/13/18 17:42 INR 1.3 01/13/18 17:42 APTT 30 SECONDS (21-34) 01/13/18 17:42
[2018-01-29] MEDS: Insulin Detemir 100 units/ml Vial (Levemir) SC SCH (21:39)
[2018-01-29] MEDS: TELAVANCIN HYDROCHLORIDE IVPB SCH (21:40)
[2018-01-29] MEDS: SODIUM CHLORIDE 0.9% IVPB SCH (21:40)
--- NOTE | 2018-01-29 22:50 | CP.PCM.PN ---
Subjective - Date & Time of Evaluation Date of Evaluation: 01/29/18 Time of Evaluation: 08:30 - Subjective Subjective: Patient seen and evaluated No cardiac events noted For EMILIANO Wednesday Objective - Vital Signs/Intake and Output Vital Signs (last 24 hours): Temp Pulse Resp BP Pulse Ox 97.2 F L 66 20 132/63 100 01/29/18 17:14 01/29/18 17:14 01/29/18 17:14 01/29/18 17:14 01/29/18 17:14 Intake and Output: 01/29/18 01/30/18 18:59 06:59 Intake Total 1440 Balance 1440 - Medications Medications: Current Medications Acetaminophen (Tylenol 325mg Tab) 650 mg PO Q6 PRN PRN Reason: Fever >100.4 F Last Admin: 01/27/18 03:58 Dose: 650 mg Aspirin (Aspirin Chewable) 81 mg PO DAILY [facility] Last Admin: 01/29/18 11:36 Dose: 81 mg Daptomycin 400 mg/ Sodium (Chloride) 100 mls @ 100 mls/hr IV Q24H [facility] PRN Reason: Protocol Stop: 02/02/18 16:01 Last Admin: 01/29/18 17:46 Dose: 100 mls/hr Potassium Chloride/Dextrose (Potassium Chl 20 Meq In D5w) 1,000 mls @ 60 mls/ hr IV .[id number] [facility] Last Admin: 01/29/18 13:49 Dose: 60 mls/hr Telavancin 500 mg/ Sodium (Chloride) 100 mls @ 100 mls/hr IVPB Q24H [facility] PRN Reason: Protocol Last Admin: 01/29/18 21:40 Dose: 100 mls/hr Insulin Aspart (Novolog) 0 unit SC Q6 [facility] PRN Reason: Protocol Last Admin: 01/29/18 17:47 Dose: 6 units Insulin Detemir (Levemir) 10 unit SC HS [facility] Last Admin: 01/29/18 21:39 Dose: 10 u Losartan Potassium (Cozaar) 25 mg PO DAILY [facility] Last Admin: 01/29/18 11:36 Dose: 25 mg Metoprolol Tartrate (Lopressor) 12.5 mg PO BID [facility] Last Admin: 01/29/18 17:46 Dose: 12.5 mg Pantoprazole Sodium (Protonix Susp) 40 mg PO DAILY [facility] Last Admin: 01/29/18 11:36 Dose: 40 mg Sodium Bicarbonate (Sodium Bicarbonate Tab) 650 mg PO TID [facility] Last Admin: 01/29/18 17:46 Dose: 650 mg Tamsulosin HCl (Flomax) 0.4 mg PO DAILY [facility] Last Admin: 01/29/18 11:36 Dose: 0.4 mg - Labs Labs: 01/28/18 07:48 01/28/18 07:48 PT 14.0 SECONDS (9.7-12.2) H 01/13/18 17:42 INR 1.3 01/13/18 17:42 APTT 30 SECONDS (21-34) 01/13/18 17:42
--- NOTE | 2018-01-29 23:15 | PN ---
DATE: 01/29/2018 The patient was seen today. He was very drowsy. I have been trying to reach the POA who I tried on Wednesday. Her voicemail was full, and I could not leave anymore message, but this patient needs EMILIANO as he has persistent infection. His last blood cultures are still positive for Staphylococcus aureus. He was seen by the urologist. He has significant cardiomyopathy. He probably has Staph infection from chronic prostatitis because it came from the urine. I am unable to clear it in spite of, and I have added now telavancin as well as Cubicin at this time and hoping to resolve it, but he may have chronic prostatitis, which may be deadly. I wanted to discuss with POA. He would also need a EMILIANO. 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 Teresa Barnett MD
[2018-01-30] MEDS: Potassium Ch 20mEq in D5W 1,000 ML IV SCH ×2 (04:55→21:16)
[2018-01-30] MEDS: (Novolog) Insulin Aspart, Recombinant 100 u/ml 10 ml vial SC SCH ×5 (05:53→20:08)
[2018-01-30] MEDS: Pantoprazole 40 mg Susp UD PO SCH (12:37)
--- NOTE | 2018-01-30 14:05 | CP.PCM.PN ---
Subjective - Date & Time of Evaluation Date of Evaluation: 01/30/18 Time of Evaluation: 10:30 - Subjective Subjective: clinically same Objective - Vital Signs/Intake and Output Vital Signs (last 24 hours): Temp Pulse Resp BP Pulse Ox 97.3 F L 82 20 121/62 97 01/30/18 07:30 01/30/18 07:30 01/30/18 07:30 01/30/18 07:30 01/30/18 07:30 Intake and Output: 01/30/18 01/30/18 06:59 18:59 Intake Total 1440 200 Balance 1440 200 - Medications Medications: Current Medications Acetaminophen (Tylenol 325mg Tab) 650 mg PO Q6 PRN PRN Reason: Fever >100.4 F Last Admin: 01/27/18 03:58 Dose: 650 mg Aspirin (Aspirin Chewable) 81 mg PO DAILY [facility] Last Admin: 01/30/18 10:16 Dose: 81 mg Daptomycin 400 mg/ Sodium (Chloride) 100 mls @ 100 mls/hr IV Q24H [facility] PRN Reason: Protocol Stop: 02/02/18 16:01 Last Admin: 01/29/18 17:46 Dose: 100 mls/hr Potassium Chloride/Dextrose (Potassium Chl 20 Meq In D5w) 1,000 mls @ 60 mls/ hr IV .[id number] [facility] Last Admin: 01/30/18 04:55 Dose: 60 mls/hr Telavancin 500 mg/ Sodium (Chloride) 100 mls @ 100 mls/hr IVPB Q24H [facility] PRN Reason: Protocol Last Admin: 01/29/18 21:40 Dose: 100 mls/hr Insulin Aspart (Novolog) 0 unit SC Q6 [facility] PRN Reason: Protocol Last Admin: 01/30/18 12:39 Dose: 3 units Insulin Detemir (Levemir) 10 unit SC HS [facility] Last Admin: 01/29/18 21:39 Dose: 10 u Losartan Potassium (Cozaar) 25 mg PO DAILY [facility] Last Admin: 01/30/18 10:16 Dose: 25 mg Metoprolol Tartrate (Lopressor) 12.5 mg PO BID [facility] Last Admin: 01/30/18 10:16 Dose: 12.5 mg Pantoprazole Sodium (Protonix Susp) 40 mg PO DAILY [facility] Last Admin: 01/30/18 12:37 Dose: 40 mg Sodium Bicarbonate (Sodium Bicarbonate Tab) 650 mg PO TID [facility] Last Admin: 01/30/18 12:37 Dose: 650 mg Tamsulosin HCl (Flomax) 0.4 mg PO DAILY [facility] Last Admin: 01/30/18 12:37 Dose: 0.4 mg - Labs Labs: 01/28/18 07:48 01/28/18 07:48 PT 14.0 SECONDS (9.7-12.2) H 01/13/18 17:42 INR 1.3 01/13/18 17:42 APTT 30 SECONDS (21-34) 01/13/18 17:42 - Constitutional Appears: Well - Head Exam Head Exam: ATRAUMATIC, NORMAL INSPECTION, NORMOCEPHALIC - Eye Exam Eye Exam: EOMI, Normal appearance, PERRL Pupil Exam: NORMAL ACCOMODATION, PERRL - ENT Exam ENT Exam: Mucous Membranes Moist, Normal Exam - Neck Exam Neck Exam: Full ROM, Normal Inspection. absent: Lymphadenopathy - Respiratory Exam Respiratory Exam: Decreased Breath Sounds - Cardiovascular Exam Cardiovascular Exam: REGULAR RHYTHM, +S1, +S2 - GI/Abdominal Exam GI & Abdominal Exam: Soft, Diminished Bowel Sounds - Rectal Exam Rectal Exam: Deferred Assessment and Plan - Assessment and Plan (Free Text) Plan: Continue aspirin continue losartan continue daptomycin continue ID consult continue psych consult continue sodium bicarbonate continue telavancin Continue as usual Spoke to spoke to benny evangelista who is public guardian psych consult grant tomorrow at 1 Pm
[2018-01-30 17:29] LABS: BASO # 0.1 K/uL (0.0-0.2); BASO % 0.8 % (0.0-2.0); EOS # 0.2 K/uL (0.0-0.7); EOS % 3.1 % (0.0-4.0); HEMOGLOBIN 9.3 g/dL (12.0-18.0); LYMPH # 1.2 K/uL (1.0-4.3); LYMPH % 16.5 % (20.0-40.0); MEAN CORPUSCULAR HEMOGLOBIN 27.7 pg (27.0-31.0); MEAN CORPUSCULAR HGB CONC 32.2 g/dL (33.0-37.0); MEAN PLATELET VOLUME 7.3 fL (7.2-11.7); MONO # 0.4 K/uL (0.0-0.8); MONO % 5.4 % (0.0-10.0); NEUT # 5.5 K/uL (1.8-7.0); NEUT % 74.2 % (50.0-75.0); NRBC % 0.1 % (0.0-2.0); RBC 3.38 Mil/uL (4.40-5.90); WHITE BLOOD COUNT 7.4 K/uL (4.8-10.8)
[2018-01-30 17:42] LABS: ALB/GLOB RATIO 0.8 (1.0-2.1); ALBUMIN 3.5 g/dL (3.5-5.0)
--- NOTE | 2018-01-30 19:50 | CP.PCM.PN ---
Subjective - Date & Time of Evaluation Date of Evaluation: 01/30/18 Time of Evaluation: 18:30 - Subjective Subjective: Patient seen and evaluated No cardiac events noted For EMILIANO tomorrow at 1pm NPO after MN except meds Consent needs to be taken from the public guardian Objective - Vital Signs/Intake and Output Vital Signs (last 24 hours): Temp Pulse Resp BP Pulse Ox 98.1 F 81 20 108/52 L 97 01/30/18 15:00 01/30/18 15:00 01/30/18 15:00 01/30/18 15:00 01/30/18 15:00 Intake and Output: 01/30/18 01/31/18 18:59 06:59 Intake Total 400 Balance 400 - Medications Medications: Current Medications Acetaminophen (Tylenol 325mg Tab) 650 mg PO Q6 PRN PRN Reason: Fever >100.4 F Last Admin: 01/27/18 03:58 Dose: 650 mg Aspirin (Aspirin Chewable) 81 mg PO DAILY [facility] Last Admin: 01/30/18 10:16 Dose: 81 mg Daptomycin 400 mg/ Sodium (Chloride) 100 mls @ 100 mls/hr IV Q24H [facility] PRN Reason: Protocol Stop: 02/02/18 16:01 Last Admin: 01/29/18 17:46 Dose: 100 mls/hr Potassium Chloride/Dextrose (Potassium Chl 20 Meq In D5w) 1,000 mls @ 60 mls/ hr IV .[id number] [facility] Last Admin: 01/30/18 04:55 Dose: 60 mls/hr Telavancin 500 mg/ Sodium (Chloride) 100 mls @ 100 mls/hr IVPB Q24H [facility] PRN Reason: Protocol Last Admin: 01/29/18 21:40 Dose: 100 mls/hr Insulin Aspart (Novolog) 0 unit SC Q6 [facility] PRN Reason: Protocol Last Admin: 01/30/18 12:39 Dose: 3 units Insulin Detemir (Levemir) 10 unit SC HS [facility] Last Admin: 01/29/18 21:39 Dose: 10 u Losartan Potassium (Cozaar) 25 mg PO DAILY [facility] Last Admin: 01/30/18 10:16 Dose: 25 mg Metoprolol Tartrate (Lopressor) 12.5 mg PO BID [facility] Last Admin: 01/30/18 10:16 Dose: 12.5 mg Pantoprazole Sodium (Protonix Susp) 40 mg PO DAILY [facility] Last Admin: 01/30/18 12:37 Dose: 40 mg Sodium Bicarbonate (Sodium Bicarbonate Tab) 650 mg PO TID [facility] Last Admin: 01/30/18 15:07 Dose: 650 mg Tamsulosin HCl (Flomax) 0.4 mg PO DAILY [facility] Last Admin: 01/30/18 12:37 Dose: 0.4 mg - Labs Labs: 01/30/18 17:13 01/30/18 17:13 PT 14.0 SECONDS (9.7-12.2) H 01/13/18 17:42 INR 1.3 01/13/18 17:42 APTT 30 SECONDS (21-34) 01/13/18 17:42
[2018-01-30] MEDS: SODIUM CHLORIDE 0.9% IVPB SCH (20:09)
[2018-01-30] MEDS: TELAVANCIN HYDROCHLORIDE IVPB SCH (20:09)
[2018-01-30] MEDS: Insulin Detemir 100 units/ml Vial (Levemir) SC SCH (21:25)
[2018-01-31] MEDS: (Novolog) Insulin Aspart, Recombinant 100 u/ml 10 ml vial SC SCH ×4 (00:33→18:04)
[2018-01-31 08:16] LABS: MEAN CELL VOLUME 86.3 fL (80.0-94.0); MEAN CORPUSCULAR HEMOGLOBIN 28.4 pg (27.0-31.0); MEAN CORPUSCULAR HGB CONC 32.9 g/dL (33.0-37.0); MEAN PLATELET VOLUME 7.4 fL (7.2-11.7); RBC 3.16 Mil/uL (4.40-5.90); RED CELL DISTRIBUTION WIDTH 17.3 % (11.5-14.5); WHITE BLOOD COUNT 7.3 K/uL (4.8-10.8)
[2018-01-31 08:20] LABS: INR 1.3; PROTHROMBIN TIME 14.1 SECONDS (9.7-12.2)
[2018-01-31 08:35] LABS: CALCIUM 9.9 mg/dl (8.6-10.4)
[2018-01-31] MEDS: Pantoprazole 40 mg Susp UD PO SCH (10:26)
--- NOTE | 2018-01-31 11:31 | CP.PCM.PCO ---
Physician Communication Note - Physician Communication Note Physician Communication Note: Patient refused to talk despite multiple attempts
[2018-01-31] MEDS ORDERED: Midazolam 2 MG/2 ML VIAL ONE (13:01)
[2018-01-31] MEDS ORDERED: Propofol 10 mg/ml Inj (20 ML) ONE (13:02)
[2018-01-31] MEDS ORDERED: Etomidate 20 mg/10ml Inj IV ONE (13:05)
[2018-01-31] MEDS ORDERED: Lidocaine 2 Grams in D5W 2,000 MG/500 ML BAG IV ONE (13:05)
[2018-01-31] MEDS ORDERED: ePHEDrine 50 mg/ml Inj ONE (13:46)
--- NOTE | 2018-01-31 15:19 | CP.PCM.PN ---
Subjective - Date & Time of Evaluation Date of Evaluation: 01/31/18 Time of Evaluation: 09:45 - Subjective Subjective: clinically same Objective - Vital Signs/Intake and Output Vital Signs (last 24 hours): Temp Pulse Resp BP Pulse Ox 97.8 F 86 18 103/54 L 94 L 01/31/18 14:58 01/31/18 14:58 01/31/18 14:58 01/31/18 14:58 01/31/18 14:58 Intake and Output: 01/31/18 01/31/18 06:59 18:59 Intake Total 480 60 Output Total 500 Balance -20 60 - Medications Medications: Current Medications Acetaminophen (Tylenol 325mg Tab) 650 mg PO Q6 PRN PRN Reason: Fever >100.4 F Last Admin: 01/27/18 03:58 Dose: 650 mg Aspirin (Aspirin Chewable) 81 mg PO DAILY [facility] Last Admin: 01/31/18 10:27 Dose: 81 mg Daptomycin 400 mg/ Sodium (Chloride) 100 mls @ 100 mls/hr IV Q24H [facility] PRN Reason: Protocol Stop: 02/02/18 16:01 Last Admin: 01/30/18 20:03 Dose: 100 mls/hr Telavancin 500 mg/ Sodium (Chloride) 100 mls @ 100 mls/hr IVPB Q24H [facility] PRN Reason: Protocol Last Admin: 01/30/18 20:09 Dose: 100 mls/hr Insulin Aspart (Novolog) 0 unit SC Q6 [facility] PRN Reason: Protocol Last Admin: 01/31/18 14:04 Dose: Not Given Insulin Detemir (Levemir) 10 unit SC [facility] Last Admin: 01/30/18 21:25 Dose: 10 u Losartan Potassium (Cozaar) 25 mg PO DAILY [facility] Last Admin: 01/31/18 10:26 Dose: 25 mg Metoprolol Tartrate (Lopressor) 12.5 mg PO BID [facility] Last Admin: 01/31/18 10:27 Dose: 12.5 mg Pantoprazole Sodium (Protonix Susp) 40 mg PO DAILY [facility] Last Admin: 01/31/18 10:26 Dose: 40 mg Sodium Bicarbonate (Sodium Bicarbonate Tab) 650 mg PO TID [facility] Last Admin: 01/31/18 14:04 Dose: Not Given Tamsulosin HCl (Flomax) 0.4 mg PO DAILY [facility] Last Admin: 01/31/18 10:27 Dose: 0.4 mg - Labs Labs: 01/31/18 08:01 01/31/18 08:01 PT 14.1 SECONDS (9.7-12.2) H 01/31/18 08:01 INR 1.3 01/31/18 08:01 APTT 30 SECONDS (21-34) 01/13/18 17:42 - Constitutional Appears: Well - Head Exam Head Exam: ATRAUMATIC, NORMAL INSPECTION, NORMOCEPHALIC - Eye Exam Eye Exam: EOMI, Normal appearance, PERRL Pupil Exam: NORMAL ACCOMODATION, PERRL - ENT Exam ENT Exam: Mucous Membranes Moist, Normal Exam - Neck Exam Neck Exam: Full ROM, Normal Inspection. absent: Lymphadenopathy - Respiratory Exam Respiratory Exam: Decreased Breath Sounds - Cardiovascular Exam Cardiovascular Exam: REGULAR RHYTHM, +S1, +S2 - GI/Abdominal Exam GI & Abdominal Exam: Soft, Diminished Bowel Sounds - Rectal Exam Rectal Exam: Deferred Assessment and Plan (1) JOY (acute kidney injury) Status: Acute (2) Change in mental status Status: Acute (3) Electrolyte imbalance Status: Acute (4) MRSA (methicillin resistant Staphylococcus aureus) septicemia Status: Acute (5) NSTEMI (non-ST elevated myocardial infarction) Status: Acute (6) Prophylactic measure Status: Acute (7) UTI (urinary tract infection) Status: Acute (8) CHF (congestive heart failure) Status: Chronic (9) CKD (chronic kidney disease) Status: Chronic (10) Diabetes mellitus Status: Chronic (11) Afib Status: Acute (12) Anemia Status: Acute (13) Bilateral hydronephrosis Status: Acute (14) CKD (chronic kidney disease) stage 4, GFR 15-29 ml/min Status: Acute (15) Metabolic acidosis Status: Acute (16) Dementia Status: Chronic - Assessment and Plan (Free Text) Plan: Patient hemodynamically stable No acute event overnight Continue as advised Antibiotics as per ID Insurance Monitor electrolytes Tight glycemic control Continue aspirin Cozaar Lopressor DVT/GI prophylaxis
[2018-01-31 15:53] LABS: TOTAL PSA 0.2 ng/mL (< or = 4.0)
--- NOTE | 2018-01-31 19:42 | CP.PCM.PN ---
Subjective - Date & Time of Evaluation Date of Evaluation: 01/31/18 Time of Evaluation: 11:40 - Subjective Subjective: dictated Objective - Vital Signs/Intake and Output Vital Signs (last 24 hours): Temp Pulse Resp BP Pulse Ox 98.3 F 77 20 99/57 L 96 01/31/18 15:32 01/31/18 18:08 01/31/18 15:32 01/31/18 18:08 01/31/18 15:32 Intake and Output: 01/31/18 02/01/18 18:59 06:59 Intake Total 60 Balance 60 - Medications Medications: Current Medications Acetaminophen (Tylenol 325mg Tab) 650 mg PO Q6 PRN PRN Reason: Fever >100.4 F Last Admin: 01/27/18 03:58 Dose: 650 mg Aspirin (Aspirin Chewable) 81 mg PO DAILY [facility] Last Admin: 01/31/18 10:27 Dose: 81 mg Daptomycin 400 mg/ Sodium (Chloride) 100 mls @ 100 mls/hr IV Q24H [facility] PRN Reason: Protocol Stop: 02/02/18 16:01 Last Admin: 01/31/18 17:00 Dose: 100 mls/hr Telavancin 500 mg/ Sodium (Chloride) 100 mls @ 100 mls/hr IVPB Q24H [facility] PRN Reason: Protocol Last Admin: 01/30/18 20:09 Dose: 100 mls/hr Insulin Aspart (Novolog) 0 unit SC Q6 [facility]EL PRN Reason: Protocol Last Admin: 01/31/18 18:04 Dose: 4 units Insulin Detemir (Levemir) 10 unit SC HS [facility] Last Admin: 01/30/18 21:25 Dose: 10 u Losartan Potassium (Cozaar) 25 mg PO DAILY [facility] Last Admin: 01/31/18 10:26 Dose: 25 mg Metoprolol Tartrate (Lopressor) 12.5 mg PO BID [facility] Last Admin: 01/31/18 18:03 Dose: Not Given Pantoprazole Sodium (Protonix Susp) 40 mg PO DAILY [facility] Last Admin: 01/31/18 10:26 Dose: 40 mg Sodium Bicarbonate (Sodium Bicarbonate Tab) 650 mg PO TID [facility] Last Admin: 01/31/18 18:04 Dose: 650 mg Tamsulosin HCl (Flomax) 0.4 mg PO DAILY [facility] Last Admin: 01/31/18 10:27 Dose: 0.4 mg - Labs Labs: 01/31/18 08:01 01/31/18 08:01 PT 14.1 SECONDS (9.7-12.2) H 01/31/18 08:01 INR 1.3 01/31/18 08:01 APTT 30 SECONDS (21-34) 01/13/18 17:42
[2018-01-31] MEDS: TELAVANCIN HYDROCHLORIDE IVPB SCH (20:02)
[2018-01-31] MEDS: SODIUM CHLORIDE 0.9% IVPB SCH (20:02)
--- NOTE | 2018-01-31 20:46 | CARD ---
APPROVED REPORT Date of service: 01/31/2018 EXAM: Transesophageal echocardiogram with color flow Doppler. INDICATION Infection : Rule out subacute bacterial endocarditis Reason For Test : Rule out endocarditis. PROCEDURE After obtaining informed consent, patient underwent transesophageal echo in the [employer]. Type of Sedation : Sedation was provided by anesthesiologist. Sedation was achieved with intravenously. Transesophageal probe was inserted and advanced into esophagus without difficulty. The EMILIANO was performed without complications. Throughout the procedure, the blood pressure, pulse oximetry, cardiac rhythm, and rate were monitored. The patient tolerated the procedure without adverse effects. Recovery from conscious sedation was uneventful and vital signs were stable. LEFT VENTRICLE The left ventricle is normal size. There is normal left ventricular wall thickness. Left ventricle systolic function is severely impaired. There is global hypokinesis of the left ventricle. No left ventricle thrombus noted on this study. RIGHT VENTRICLE The right ventricle is normal size. There is normal right ventricular wall thickness. The right ventricular systolic function is normal. ATRIA The left atrium size is normal. The right atrium size is normal. AORTIC VALVE The aortic valve is normal in structure. No aortic regurgitation is present. There is no aortic valvular stenosis. MITRAL VALVE The mitral valve is normal in structure. There is no mitral valve stenosis. There is no mitral valve regurgitation noted. TRICUSPID VALVE The tricuspid valve is normal in structure. There is no tricuspid valve regurgitation noted. PULMONIC VALVE The pulmonary valve is normal in structure. There is no pulmonic valvular regurgitation. GREAT VESSELS The aortic root is normal in size. PERICARDIAL EFFUSION There is no pericardial effusion. <Conclusion> No vegitation seen
[2018-01-31] MEDS: Insulin Detemir 100 units/ml Vial (Levemir) SC SCH (21:50)
--- NOTE | 2018-02-01 00:31 | PN ---
DATE: 01/31/2018 SUBJECTIVE: The patient remains lethargic, he is supposed to have EMILIANO done, but it has been pending due to his lack of consent and the patient is also being followed by the psych. The patient is drowsy on one to one. PHYSICAL EXAMINATION: VITAL SIGNS: T max is 98.3, pulse 77, blood pressure 113/58, respirations . GENERAL: He is sedated. HEENT: Head is atraumatic. NECK: Supple. LUNGS: Clear. No crackles or rales present. HEART: S1, S1 are regular. ABDOMEN: Soft. Nontender. No guarding. No rigidity present. Has a colostomy bag. EXTREMITIES: Have no edema. LABORATORY DATA: White count 7.3, hemoglobin 9, hematocrit 27.3, platelet count is 566. BUN is 56, creatinine is 2.3. ASSESSMENT AND PLAN: The pharmacy keeps calling because I am giving two drugs, but this patient has had persistent bacteremia with methicillin-resistant Staphylococcus aureus and in spite of giving adequate IV antibiotics it is not recovering and he needs transesophageal echocardiography to rule out endocarditis and this is probably coming from the bladder or the prostate because he did come in with methicillin-resistant Staphylococcus aureus in the urine, but I read the urology note which did not plan to do anything at this time. We may need to get back to them once we get transesophageal echocardiography done. We will follow. Teresa Barnett MD
[2018-02-01] MEDS: (Novolog) Insulin Aspart, Recombinant 100 u/ml 10 ml vial SC SCH ×4 (00:34→17:09)
--- NOTE | 2018-02-01 05:44 | CP.PCM.PN ---
Subjective - Date & Time of Evaluation Date of Evaluation: 01/31/18 Time of Evaluation: 17:30 - Subjective Subjective: Patient was seen and examined at bedside. Patient is clinically the same with no acute issues as per nursing. Patient is alert, awake but not oriented. Patient denies any complaints. Physical examination - Constitutional Appears: No Acute Distress - Head Exam Head Exam: ATRAUMATIC - Eye Exam Eye Exam: EOMI - Respiratory Exam Respiratory Exam: NORMAL BREATHING PATTERN - Cardiovascular Exam Cardiovascular Exam: REGULAR RHYTHM, +S1, +S2 - Extremities Exam Extremities Exam: absent: Calf Tenderness, Pedal Edema - Neurological Exam Neurological Exam: Alert, Awake. absent: Oriented x3 Assessment and Plan (1) CHF (congestive heart failure) Assessment & Plan: EF approx 15-20% with noted severe LV global hypokinesia. Diastolic dysfunction cannot be determined. Moderately reduced systolic function. Refer to complete report. Patient is not a good candidate for lifevest due to severe dementia. We start heart failure therapy as patient is no longer hypotensive: * Cozaar 25mg PO daily * ASA 81mg PO daily * Lopressor 12.5 mg PO BID Status: Chronic (2) MRSA (methicillin resistant Staphylococcus aureus) septicemia Assessment & Plan: Daptomycin 400mg IV q24h Status: Acute (3) Diabetes mellitus Assessment & Plan: Accuchecks Levemir 10 units SC HS ISS- Medium dose Status: Chronic (4) Dementia Assessment & Plan: May need some form of maintenance therapy. Continued management per primary Status: Chronic (5) Prophylactic measure Assessment & Plan: PPI 40 mg IV daily SCDs Heparin 5,000 SC Q12 S/P EMILIANO: No vegetation seen No further cardiac intervention at this time Thank you Objective - Vital Signs/Intake and Output Vital Signs (last 24 hours): Temp Pulse Resp BP Pulse Ox 97.8 F 86 20 108/61 97 01/31/18 23:30 01/31/18 23:30 01/31/18 23:30 01/31/18 23:30 01/31/18 23:30 Intake and Output: 01/31/18 02/01/18 18:59 06:59 Intake Total 60 300 Output Total 300 Balance 60 0 - Medications Medications: Current Medications Acetaminophen (Tylenol 325mg Tab) 650 mg PO Q6 PRN PRN Reason: Fever >100.4 F Last Admin: 09/13/18 03:58 Dose: 650 mg Aspirin (Aspirin Chewable) 81 mg PO DAILY [facility] Last Admin: 01/31/18 10:27 Dose: 81 mg Daptomycin 400 mg/ Sodium (Chloride) 100 mls @ 100 mls/hr IV Q24H [facility] PRN Reason: Protocol Stop: 02/02/18 16:01 Last Admin: 01/31/18 17:00 Dose: 100 mls/hr Telavancin 500 mg/ Sodium (Chloride) 100 mls @ 100 mls/hr IVPB Q24H [facility] PRN Reason: Protocol Last Admin: 01/31/18 20:02 Dose: 100 mls/hr Insulin Aspart (Novolog) 0 unit SC Q6 [facility] PRN Reason: Protocol Last Admin: 02/01/18 00:34 Dose: 2 units Insulin Detemir (Levemir) 10 unit SC HS [facility] Last Admin: 01/31/18 21:50 Dose: 10 u Losartan Potassium (Cozaar) 25 mg PO DAILY [facility] Last Admin: 01/31/18 10:26 Dose: 25 mg Metoprolol Tartrate (Lopressor) 12.5 mg PO BID [facility] Last Admin: 01/31/18 18:03 Dose: Not Given Pantoprazole Sodium (Protonix Susp) 40 mg PO DAILY [facility] Last Admin: 01/31/18 10:26 Dose: 40 mg Sodium Bicarbonate (Sodium Bicarbonate Tab) 650 mg PO TID [facility] Last Admin: 01/31/18 18:04 Dose: 650 mg Tamsulosin HCl (Flomax) 0.4 mg PO DAILY [facility] Last Admin: 01/31/18 10:27 Dose: 0.4 mg - Labs Labs: 01/31/18 08:01 01/31/18 08:01 PT 14.1 SECONDS (9.7-12.2) H 01/31/18 08:01 INR 1.3 01/31/18 08:01 APTT 30 SECONDS (21-34) 01/13/18 17:42
[2018-02-01 07:40] LABS: HEMOGLOBIN 8.7 g/dL (12.0-18.0); MEAN CELL VOLUME 85.4 fL (80.0-94.0); MEAN CORPUSCULAR HEMOGLOBIN 28.2 pg (27.0-31.0); MEAN PLATELET VOLUME 7.3 fL (7.2-11.7); RBC 3.09 Mil/uL (4.40-5.90); WHITE BLOOD COUNT 7.6 K/uL (4.8-10.8)
[2018-02-01 07:48] LABS: CALCIUM 10.2 mg/dl (8.6-10.4)
[2018-02-01] MEDS: Pantoprazole 40 mg Susp UD PO SCH (09:24)
[2018-02-01] MEDS: Metoprolol Succinate 12.5 mg XL Tab PO SCH (09:28)
[2018-02-01] MEDS ORDERED: Sod Polystyrene Sulf 15 gm/60 ml Susp PO ONE (12:00)
--- NOTE | 2018-02-01 13:30 | CP.PCM.PCO ---
Physician Communication Note - Physician Communication Note Physician Communication Note: Last attempt - Still not communicating.
--- NOTE | 2018-02-01 16:57 | CP.PCM.PN ---
Subjective - Date & Time of Evaluation Date of Evaluation: 02/01/18 Time of Evaluation: 09:45 - Subjective Subjective: clinically same Objective - Vital Signs/Intake and Output Vital Signs (last 24 hours): Temp Pulse Resp BP Pulse Ox 97.3 F L 84 20 112/58 L 96 02/01/18 15:00 02/01/18 15:00 02/01/18 15:00 02/01/18 15:00 02/01/18 15:00 Intake and Output: 02/01/18 02/01/18 06:59 18:59 Intake Total 300 Output Total 300 400 Balance 0 -400 - Medications Medications: Current Medications Acetaminophen (Tylenol 325mg Tab) 650 mg PO Q6 PRN PRN Reason: Fever >100.4 F Last Admin: 01/27/18 03:58 Dose: 650 mg Aspirin (Aspirin Chewable) 81 mg PO DAILY [facility] Last Admin: 02/01/18 09:25 Dose: 81 mg Daptomycin 400 mg/ Sodium (Chloride) 100 mls @ 100 mls/hr IV Q24H [facility] PRN Reason: Protocol Stop: 02/02/18 16:01 Last Admin: 02/01/18 16:25 Dose: 100 mls/hr Telavancin 500 mg/ Sodium (Chloride) 100 mls @ 100 mls/hr IVPB Q24H [facility] PRN Reason: Protocol Last Admin: 01/31/18 20:02 Dose: 100 mls/hr Insulin Aspart (Novolog) 0 unit SC Q6 [facility] PRN Reason: Protocol Last Admin: 02/01/18 12:40 Dose: 6 units Insulin Detemir (Levemir) 10 unit SC [facility] Last Admin: 01/31/18 21:50 Dose: 10 u Losartan Potassium (Cozaar) 25 mg PO DAILY [facility] Last Admin: 02/01/18 09:24 Dose: 25 mg Metoprolol Succinate (Toprol Xl) 12.5 mg PO DAILY [facility] Last Admin: 02/01/18 09:28 Dose: 12.5 mg Pantoprazole Sodium (Protonix Susp) 40 mg PO DAILY [facility] Last Admin: 02/01/18 09:24 Dose: 40 mg Sodium Bicarbonate (Sodium Bicarbonate Tab) 650 mg PO TID [facility] Last Admin: 02/01/18 14:16 Dose: 650 mg Tamsulosin HCl (Flomax) 0.4 mg PO DAILY [facility] Last Admin: 02/01/18 09:25 Dose: 0.4 mg - Labs Labs: 02/01/18 07:25 02/01/18 07:25 PT 14.1 SECONDS (9.7-12.2) H 01/31/18 08:01 INR 1.3 01/31/18 08:01 APTT 30 SECONDS (21-34) 01/13/18 17:42 - Constitutional Appears: Well - Head Exam Head Exam: ATRAUMATIC, NORMAL INSPECTION, NORMOCEPHALIC - Eye Exam Eye Exam: EOMI, Normal appearance, PERRL Pupil Exam: NORMAL ACCOMODATION, PERRL - ENT Exam ENT Exam: Mucous Membranes Moist, Normal Exam - Neck Exam Neck Exam: Full ROM, Normal Inspection. absent: Lymphadenopathy - Respiratory Exam Respiratory Exam: Decreased Breath Sounds - Cardiovascular Exam Cardiovascular Exam: REGULAR RHYTHM, +S1, +S2 - GI/Abdominal Exam GI & Abdominal Exam: Soft, Diminished Bowel Sounds - Rectal Exam Rectal Exam: Deferred Assessment and Plan (1) JOY (acute kidney injury) Status: Acute (2) Change in mental status Status: Acute (3) Electrolyte imbalance Status: Acute (4) MRSA (methicillin resistant Staphylococcus aureus) septicemia Status: Acute (5) NSTEMI (non-ST elevated myocardial infarction) Status: Acute (6) Prophylactic measure Status: Acute (7) UTI (urinary tract infection) Status: Acute (8) CHF (congestive heart failure) Status: Chronic (9) CKD (chronic kidney disease) Status: Chronic (10) Diabetes mellitus Status: Chronic (11) Afib Status: Acute (12) Anemia Status: Acute (13) Bilateral hydronephrosis Status: Acute (14) CKD (chronic kidney disease) stage 4, GFR 15-29 ml/min Status: Acute (15) Metabolic acidosis Status: Acute (16) Dementia Status: Chronic - Assessment and Plan (Free Text) Plan: Patient seen and examined at bedside Labs and meds reviewed Overnight events noted Repeat blood cultures awaited Daptomycin Telavancin Blood pressure meds DVT/GI prophylaxis ID on board Follow-up with labs
[2018-02-01] MEDS: TELAVANCIN HYDROCHLORIDE IVPB SCH (20:04)
[2018-02-01] MEDS: SODIUM CHLORIDE 0.9% IVPB SCH (20:04)
[2018-02-01] MEDS: Insulin Detemir 100 units/ml Vial (Levemir) SC SCH (22:30)
--- NOTE | 2018-02-01 22:51 | CP.PCM.PN ---
Subjective - Date & Time of Evaluation Date of Evaluation: 02/01/18 Time of Evaluation: 14:40 - Subjective Subjective: dictated Objective - Vital Signs/Intake and Output Vital Signs (last 24 hours): Temp Pulse Resp BP Pulse Ox 97.3 F L 84 20 112/58 L 96 02/01/18 15:00 02/01/18 15:00 02/01/18 15:00 02/01/18 15:00 02/01/18 15:00 Intake and Output: 02/01/18 02/02/18 18:59 06:59 Output Total 400 Balance -400 - Medications Medications: Current Medications Acetaminophen (Tylenol 325mg Tab) 650 mg PO Q6 PRN PRN Reason: Fever >100.4 F Last Admin: 01/27/18 03:58 Dose: 650 mg Aspirin (Aspirin Chewable) 81 mg PO DAILY [facility] Last Admin: 02/01/18 09:25 Dose: 81 mg Daptomycin 400 mg/ Sodium (Chloride) 100 mls @ 100 mls/hr IV Q24H [facility] PRN Reason: Protocol Stop: 02/02/18 16:01 Last Admin: 02/01/18 16:25 Dose: 100 mls/hr Telavancin 500 mg/ Sodium (Chloride) 100 mls @ 100 mls/hr IVPB Q24H [facility] PRN Reason: Protocol Last Admin: 02/01/18 20:04 Dose: 100 mls/hr Insulin Aspart (Novolog) 0 unit SC Q6 [facility] PRN Reason: Protocol Last Admin: 02/01/18 17:09 Dose: 8 units Insulin Detemir (Levemir) 10 unit SC HS [facility] Last Admin: 02/01/18 22:30 Dose: 10 u Losartan Potassium (Cozaar) 25 mg PO DAILY [facility] Last Admin: 02/01/18 09:24 Dose: 25 mg Metoprolol Succinate (Toprol Xl) 12.5 mg PO DAILY [facility] Last Admin: 02/01/18 09:28 Dose: 12.5 mg Pantoprazole Sodium (Protonix Susp) 40 mg PO DAILY [facility] Last Admin: 02/01/18 09:24 Dose: 40 mg Sodium Bicarbonate (Sodium Bicarbonate Tab) 650 mg PO TID [facility] Last Admin: 02/01/18 17:11 Dose: 650 mg Tamsulosin HCl (Flomax) 0.4 mg PO DAILY [facility] Last Admin: 02/01/18 09:25 Dose: 0.4 mg - Labs Labs: 02/01/18 07:25 02/01/18 07:25 PT 14.1 SECONDS (9.7-12.2) H 01/31/18 08:01 INR 1.3 01/31/18 08:01 APTT 30 SECONDS (21-34) 01/13/18 17:42
[2018-02-02] MEDS: (Novolog) Insulin Aspart, Recombinant 100 u/ml 10 ml vial SC SCH ×4 (00:11→18:31)
--- NOTE | 2018-02-02 02:43 | PN ---
DATE: 02/01/2018 The patient's bus assistant tells me that he ate well, but he keeps out to me. He appears very drowsy. He does not respond much. He is practically not there and not able to communicate much. I have been waiting to get his EMILIANO done. Actually, he had a EMILIANO done. There was no agitation seen on EMILIANO. No further cardiac intervention is needed according to Dr. Thompson's note from yesterday, but he has had persistent MRSA on 01/31/2018, finally the cultures are negative. We will continue present treatment for the next two weeks following the negative culture. As he has had so many cultures positive, I think he is having it in the prostate or in the bladder. We will continue with the medications but closely monitor his creatinine as the creatinine has been increasing and potassium is also increasing. He may end up on dialysis, so needs a renal evaluation. Dr. Leticia Hernandes is following. We will see if he has any other ideas. Pharmacy keeps calling me to change the daptomycin to every 48 hours. If creatinine increases further, I may have to do so. Impression is persistent methicillin-resistant Staphylococcus aureus septicemia in a patient who has dementia and remains acutely ill; however, transesophageal echocardiography is negative. Teresa Barnett MD
[2018-02-02] MEDS: Metoprolol Succinate 12.5 mg XL Tab PO SCH (09:34)
[2018-02-02] MEDS: Pantoprazole 40 mg Susp UD PO SCH (09:34)
[2018-02-02 14:15] LABS: ALB/GLOB RATIO 0.8 (1.0-2.1); ALBUMIN 3.8 g/dL (3.5-5.0); CALCIUM 10.6 mg/dl (8.6-10.4)
--- NOTE | 2018-02-02 14:17 | CP.PCM.PN ---
Subjective - Date & Time of Evaluation Date of Evaluation: 02/02/18 Time of Evaluation: 14:00 - Subjective Subjective: dictated Objective - Vital Signs/Intake and Output Vital Signs (last 24 hours): Temp Pulse Resp BP Pulse Ox 97.8 F 104 H 20 98/51 L 95 02/02/18 07:00 02/02/18 07:00 02/02/18 07:00 02/02/18 07:00 02/02/18 07:00 Intake and Output: 02/02/18 02/02/18 06:59 18:59 Intake Total 0 360 Output Total 100 400 Balance -100 -40 - Medications Medications: Current Medications Acetaminophen (Tylenol 325mg Tab) 650 mg PO Q6 PRN PRN Reason: Fever >100.4 F Last Admin: 01/27/18 03:58 Dose: 650 mg Aspirin (Aspirin Chewable) 81 mg PO DAILY [facility] Last Admin: 02/02/18 09:34 Dose: 81 mg Daptomycin 400 mg/ Sodium (Chloride) 100 mls @ 100 mls/hr IV Q24H [facility] PRN Reason: Protocol Stop: 02/02/18 16:01 Last Admin: 02/01/18 16:25 Dose: 100 mls/hr Telavancin 500 mg/ Sodium (Chloride) 100 mls @ 100 mls/hr IVPB Q24H [facility] PRN Reason: Protocol Last Admin: 02/01/18 20:04 Dose: 100 mls/hr Insulin Aspart (Novolog) 0 unit SC Q6 [facility] PRN Reason: Protocol Last Admin: 02/02/18 12:19 Dose: Not Given Insulin Detemir (Levemir) 10 unit SC [facility] Last Admin: 02/01/18 22:30 Dose: 10 u Losartan Potassium (Cozaar) 25 mg PO DAILY [facility] Last Admin: 02/02/18 09:34 Dose: 25 mg Metoprolol Succinate (Toprol Xl) 12.5 mg PO DAILY [facility] Last Admin: 02/02/18 09:34 Dose: 12.5 mg Pantoprazole Sodium (Protonix Susp) 40 mg PO DAILY [facility] Last Admin: 02/02/18 09:34 Dose: 40 mg Sodium Bicarbonate (Sodium Bicarbonate Tab) 650 mg PO TID [facility] Last Admin: 02/02/18 13:34 Dose: 650 mg Tamsulosin HCl (Flomax) 0.4 mg PO DAILY [facility] Last Admin: 02/02/18 09:34 Dose: 0.4 mg - Labs Labs: 02/01/18 07:25 02/02/18 13:34 PT 14.1 SECONDS (9.7-12.2) H 01/31/18 08:01 INR 1.3 01/31/18 08:01 APTT 30 SECONDS (21-34) 01/13/18 17:42
[2018-02-02] MEDS: Sodium Chloride 0.45% 1,000 ML IV SCH (18:39)
[2018-02-02] MEDS: TELAVANCIN HYDROCHLORIDE IVPB SCH (19:49)
[2018-02-02] MEDS: SODIUM CHLORIDE 0.9% IVPB SCH (19:49)
--- NOTE | 2018-02-02 20:29 | CP.PCM.PN ---
Subjective - Date & Time of Evaluation Date of Evaluation: 02/02/18 Time of Evaluation: 09:00 - Subjective Subjective: clinically same Objective - Vital Signs/Intake and Output Vital Signs (last 24 hours): Temp Pulse Resp BP Pulse Ox 97.2 F L 115 H 20 113/57 L 96 02/02/18 15:00 02/02/18 15:00 02/02/18 15:00 02/02/18 15:00 02/02/18 15:00 Intake and Output: 02/02/18 02/03/18 18:59 06:59 Intake Total 360 Output Total 400 Balance -40 - Medications Medications: Current Medications Acetaminophen (Tylenol 325mg Tab) 650 mg PO Q6 PRN PRN Reason: Fever >100.4 F Last Admin: 01/27/18 03:58 Dose: 650 mg Aspirin (Aspirin Chewable) 81 mg PO DAILY [facility] Last Admin: 02/02/18 09:34 Dose: 81 mg Telavancin 500 mg/ Sodium (Chloride) 100 mls @ 100 mls/hr IVPB Q24H [facility] PRN Reason: Protocol Last Admin: 02/02/18 19:49 Dose: 100 mls/hr Sodium Chloride (Sodium Chloride 0.45%) 1,000 mls @ 70 mls/hr IV .[id number] [facility] Last Admin: 02/02/18 18:39 Dose: 70 mls/hr Insulin Aspart (Novolog) 0 unit SC Q6 [facility] PRN Reason: Protocol Last Admin: 02/02/18 18:31 Dose: Not Given Insulin Detemir (Levemir) 10 unit SC HS [facility] Last Admin: 02/01/18 22:30 Dose: 10 u Losartan Potassium (Cozaar) 25 mg PO DAILY [facility] Last Admin: 02/02/18 09:34 Dose: 25 mg Metoprolol Succinate (Toprol Xl) 12.5 mg PO DAILY [facility] Last Admin: 02/02/18 09:34 Dose: 12.5 mg Pantoprazole Sodium (Protonix Susp) 40 mg PO DAILY [facility] Last Admin: 02/02/18 09:34 Dose: 40 mg Sodium Bicarbonate (Sodium Bicarbonate Tab) 650 mg PO TID [facility] Last Admin: 02/02/18 18:31 Dose: Not Given Tamsulosin HCl (Flomax) 0.4 mg PO DAILY [facility] Last Admin: 02/02/18 09:34 Dose: 0.4 mg - Labs Labs: 02/01/18 07:25 02/02/18 13:34 PT 14.1 SECONDS (9.7-12.2) H 01/31/18 08:01 INR 1.3 01/31/18 08:01 APTT 30 SECONDS (21-34) 01/13/18 17:42 - Constitutional Appears: Non-toxic, No Acute Distress - Head Exam Head Exam: ATRAUMATIC - Eye Exam Eye Exam: Normal appearance - ENT Exam ENT Exam: Mucous Membranes Moist - Respiratory Exam Respiratory Exam: Decreased Breath Sounds - Cardiovascular Exam Cardiovascular Exam: +S1, +S2 - GI/Abdominal Exam GI & Abdominal Exam: Diminished Bowel Sounds - Rectal Exam Rectal Exam: Deferred Assessment and Plan (1) JOY (acute kidney injury) Status: Acute (2) Change in mental status Status: Acute (3) Electrolyte imbalance Status: Acute (4) MRSA (methicillin resistant Staphylococcus aureus) septicemia Status: Acute (5) NSTEMI (non-ST elevated myocardial infarction) Status: Acute (6) Prophylactic measure Status: Acute (7) UTI (urinary tract infection) Status: Acute (8) CHF (congestive heart failure) Status: Chronic (9) CKD (chronic kidney disease) Status: Chronic (10) Diabetes mellitus Status: Chronic (11) Afib Status: Acute (12) Anemia Status: Acute (13) Bilateral hydronephrosis Status: Acute (14) CKD (chronic kidney disease) stage 4, GFR 15-29 ml/min Status: Acute (15) Metabolic acidosis Status: Acute (16) Dementia Status: Chronic - Assessment and Plan (Free Text) Plan: Patient hemodynamically stable Discussed with staff Overnight events noted Talked to Dr. Ericka Sandhu Toprol-XL Antibiotics as per ID DVT/GI prophylaxis monitor input and output Follow-up with labs
[2018-02-02] MEDS: Insulin Detemir 100 units/ml Vial (Levemir) SC SCH (22:53)
[2018-02-03] MEDS: (Novolog) Insulin Aspart, Recombinant 100 u/ml 10 ml vial SC SCH ×4 (00:45→18:29)
[2018-02-03] MEDS: Sodium Chloride 0.45% 1,000 ML IV SCH ×2 (10:16→22:48)
[2018-02-03] MEDS: Pantoprazole 40 mg Susp UD PO SCH (10:16)
[2018-02-03] MEDS: Metoprolol Succinate 12.5 mg XL Tab PO SCH (10:16)
[2018-02-03 14:10] LABS: BASO % 0.6 % (0.0-2.0); EOS # 0.2 K/uL (0.0-0.7); EOS % 2.2 % (0.0-4.0); HEMOGLOBIN 8.8 g/dL (12.0-18.0); LYMPH % 12.2 % (20.0-40.0); MEAN CELL VOLUME 84.9 fL (80.0-94.0); MEAN CORPUSCULAR HEMOGLOBIN 28.5 pg (27.0-31.0); MEAN CORPUSCULAR HGB CONC 33.6 g/dL (33.0-37.0); MEAN PLATELET VOLUME 7.6 fL (7.2-11.7); MONO # 0.7 K/uL (0.0-0.8); MONO % 8.4 % (0.0-10.0); NEUT # 6.3 K/uL (1.8-7.0); NEUT % 76.6 % (50.0-75.0); RBC 3.09 Mil/uL (4.40-5.90); RED CELL DISTRIBUTION WIDTH 16.9 % (11.5-14.5); WHITE BLOOD COUNT 8.2 K/uL (4.8-10.8)
--- NOTE | 2018-02-03 14:14 | CP.PCM.PN ---
Subjective - Date & Time of Evaluation Date of Evaluation: 02/03/18 Time of Evaluation: 14:10 - Subjective Subjective: dictated Objective - Vital Signs/Intake and Output Vital Signs (last 24 hours): Temp Pulse Resp BP Pulse Ox 98.8 F 104 H 20 119/79 97 02/03/18 07:44 02/03/18 07:44 02/03/18 07:44 02/03/18 07:44 02/03/18 07:44 Intake and Output: 02/03/18 02/03/18 06:59 18:59 Intake Total 560 Output Total 400 Balance 160 - Medications Medications: Current Medications Acetaminophen (Tylenol 325mg Tab) 650 mg PO Q6 PRN PRN Reason: Fever >100.4 F Last Admin: 01/27/18 03:58 Dose: 650 mg Aspirin (Aspirin Chewable) 81 mg PO DAILY [facility] Last Admin: 02/03/18 10:16 Dose: 81 mg Sodium Chloride (Sodium Chloride 0.45%) 1,000 mls @ 70 mls/hr IV .[id number] [facility] Last Admin: 02/03/18 10:16 Dose: 70 mls/hr Telavancin 500 mg/ Sodium (Chloride) 100 mls @ 100 mls/hr IVPB Q24H [facility] PRN Reason: Protocol Stop: 02/08/18 20:01 Daptomycin 400 mg/ Sodium (Chloride) 100 mls @ 100 mls/hr IV Q24H [facility] PRN Reason: Protocol Stop: 02/08/18 16:01 Insulin Aspart (Novolog) 0 unit SC Q6 [facility] PRN Reason: Protocol Last Admin: 02/03/18 13:29 Dose: 4 units Insulin Detemir (Levemir) 10 unit SC HS [facility] Last Admin: 02/02/18 22:53 Dose: Not Given Losartan Potassium (Cozaar) 25 mg PO DAILY [facility] Last Admin: 02/03/18 10:16 Dose: 25 mg Metoprolol Succinate (Toprol Xl) 12.5 mg PO DAILY [facility] Last Admin: 02/03/18 10:16 Dose: 12.5 mg Pantoprazole Sodium (Protonix Susp) 40 mg PO DAILY [facility] Last Admin: 02/03/18 10:16 Dose: 40 mg Sodium Bicarbonate (Sodium Bicarbonate Tab) 650 mg PO TID [facility] Last Admin: 02/03/18 13:30 Dose: 650 mg Tamsulosin HCl (Flomax) 0.4 mg PO DAILY [facility] Last Admin: 02/03/18 10:16 Dose: 0.4 mg - Labs Labs: 02/03/18 13:53 02/02/18 13:34 PT 14.1 SECONDS (9.7-12.2) H 01/31/18 08:01 INR 1.3 01/31/18 08:01 APTT 30 SECONDS (21-34) 01/13/18 17:42
[2018-02-03 14:18] LABS: ALB/GLOB RATIO 0.8 (1.0-2.1); ALBUMIN 3.6 g/dL (3.5-5.0); CALCIUM 10.2 mg/dl (8.6-10.4)
--- NOTE | 2018-02-03 16:08 | CP.PCM.PN ---
Subjective - Date & Time of Evaluation Date of Evaluation: 02/03/18 Time of Evaluation: 09:00 - Subjective Subjective: clinically same Objective - Vital Signs/Intake and Output Vital Signs (last 24 hours): Temp Pulse Resp BP Pulse Ox 98.8 F 104 H 20 119/79 97 02/03/18 07:44 02/03/18 07:44 02/03/18 07:44 02/03/18 07:44 02/03/18 07:44 Intake and Output: 02/03/18 02/03/18 06:59 18:59 Intake Total 560 1160 Output Total 400 Balance 160 1160 - Medications Medications: Current Medications Acetaminophen (Tylenol 325mg Tab) 650 mg PO Q6 PRN PRN Reason: Fever >100.4 F Last Admin: 01/27/18 03:58 Dose: 650 mg Aspirin (Aspirin Chewable) 81 mg PO DAILY [facility] Last Admin: 02/03/18 10:16 Dose: 81 mg Sodium Chloride (Sodium Chloride 0.45%) 1,000 mls @ 70 mls/hr IV .[id number] [facility] Last Admin: 02/03/18 10:16 Dose: 70 mls/hr Telavancin 500 mg/ Sodium (Chloride) 100 mls @ 100 mls/hr IVPB Q24H [facility] PRN Reason: Protocol Stop: 02/08/18 20:01 Daptomycin 400 mg/ Sodium (Chloride) 100 mls @ 100 mls/hr IV Q24H [facility] PRN Reason: Protocol Stop: 02/08/18 16:01 Insulin Aspart (Novolog) 0 unit SC Q6 [facility] PRN Reason: Protocol Last Admin: 02/03/18 13:29 Dose: 4 units Insulin Detemir (Levemir) 10 unit SC HS [facility] Last Admin: 02/02/18 22:53 Dose: Not Given Losartan Potassium (Cozaar) 25 mg PO DAILY [facility] Last Admin: 02/03/18 10:16 Dose: 25 mg Metoprolol Succinate (Toprol Xl) 12.5 mg PO DAILY [facility] Last Admin: 02/03/18 10:16 Dose: 12.5 mg Pantoprazole Sodium (Protonix Susp) 40 mg PO DAILY [facility] Last Admin: 02/03/18 10:16 Dose: 40 mg Sodium Bicarbonate (Sodium Bicarbonate Tab) 650 mg PO TID [facility] Last Admin: 02/03/18 13:30 Dose: 650 mg Tamsulosin HCl (Flomax) 0.4 mg PO DAILY [facility] Last Admin: 02/03/18 10:16 Dose: 0.4 mg - Labs Labs: 02/03/18 13:53 02/03/18 13:53 PT 14.1 SECONDS (9.7-12.2) H 01/31/18 08:01 INR 1.3 01/31/18 08:01 APTT 30 SECONDS (21-34) 01/13/18 17:42 Assessment and Plan (1) JOY (acute kidney injury) Status: Acute (2) Change in mental status Status: Acute (3) Electrolyte imbalance Status: Acute (4) MRSA (methicillin resistant Staphylococcus aureus) septicemia Status: Acute (5) NSTEMI (non-ST elevated myocardial infarction) Status: Acute (6) Prophylactic measure Status: Acute (7) UTI (urinary tract infection) Status: Acute (8) CHF (congestive heart failure) Status: Chronic (9) CKD (chronic kidney disease) Status: Chronic (10) Diabetes mellitus Status: Chronic (11) Afib Status: Acute (12) Anemia Status: Acute (13) Bilateral hydronephrosis Status: Acute (14) CKD (chronic kidney disease) stage 4, GFR 15-29 ml/min Status: Acute (15) Metabolic acidosis Status: Acute (16) Dementia Status: Chronic - Assessment and Plan (Free Text) Plan: Patient seen and examined at bedside Labs and meds reviewed Overnight events noted Accu-Cheks Insulins Blood pressure meds Continue as advised Monitor labs
[2018-02-03] MEDS: TELAVANCIN HYDROCHLORIDE IVPB SCH (19:31)
[2018-02-03] MEDS: SODIUM CHLORIDE 0.9% IVPB SCH (19:31)
[2018-02-03] MEDS: Insulin Detemir 100 units/ml Vial (Levemir) SC SCH (21:21)
--- NOTE | 2018-02-03 23:06 | PN ---
DATE: 02/03/2018 SUBJECTIVE: The patient remains drowsy. Even if his eyes are open, he does not communicate much. His blood cultures remain positive. He has a poor ejection fraction, and Dr. Chiu wants the cardiology clearance, and cultures are persistently positive. However, we have done EMILIANO which is negative and his Ceretec scan is negative. MRSA suggests either there is a malignancy in the body somewhere or maybe in the bladder or in the GI tract. Nothing showed up on the CAT scans that I have done, so at this time, he has been on two antibiotics which treat MRSA, bacteriemia, and still he has persistence of organism, and he has renal insufficiency, so cannot give vancomycin. So at this time I am thinking that this patient should be discuss with the POA, and should be made hospice, and we will then at that point, put him on Zyvox p.o. and let him go to the retirement back. We will discuss this plan with Dr. Leticia Hernandes tomorrow. PHYSICAL EXAMINATION: VITAL SIGNS: T-max is 98.4, pulse 95. He is afebrile. Blood pressure 124/67, respirations are 20. He has no respiratory issues. GENERAL: He is always with the mittens. HEENT: Head is atraumatic. NECK: Supple. LUNGS: Clear. HEART: S1 and S2 are regular. ABDOMEN: Soft and nontender. Colostomy is functioning. EXTREMITIES: Have no edema. He did have some back wounds and I did a sacral to rule out osteomyelitis or discitis, I did not find anything on those, so at this time, I am running out of any options. Teresa Barnett MD
[2018-02-04] MEDS: (Novolog) Insulin Aspart, Recombinant 100 u/ml 10 ml vial SC SCH ×4 (00:20→17:12)
[2018-02-04] MEDS: Sodium Chloride 0.45% 1,000 ML IV SCH ×3 (02:00→15:54)
[2018-02-04] MEDS: Metoprolol Succinate 12.5 mg XL Tab PO SCH (11:02)
[2018-02-04] MEDS: Pantoprazole 40 mg Susp UD PO SCH (11:02)
--- NOTE | 2018-02-04 12:16 | CP.PCM.PN ---
Subjective - Date & Time of Evaluation Date of Evaluation: 02/04/18 Time of Evaluation: 08:15 - Subjective Subjective: clinically same Objective - Vital Signs/Intake and Output Vital Signs (last 24 hours): Temp Pulse Resp BP Pulse Ox 98.9 F 116 H 20 134/69 100 02/04/18 08:00 02/04/18 08:00 02/04/18 08:00 02/04/18 08:00 02/04/18 08:00 Intake and Output: 02/04/18 02/04/18 06:59 18:59 Intake Total 1180 400 Output Total 300 Balance 1180 100 - Medications Medications: Current Medications Acetaminophen (Tylenol 325mg Tab) 650 mg PO Q6 PRN PRN Reason: Fever >100.4 F Last Admin: 01/27/18 03:58 Dose: 650 mg Aspirin (Aspirin Chewable) 81 mg PO DAILY [facility] Last Admin: 02/04/18 11:02 Dose: 81 mg Sodium Chloride (Sodium Chloride 0.45%) 1,000 mls @ 70 mls/hr IV .[id number] [facility] Last Admin: 02/04/18 02:00 Dose: 70 mls/hr Telavancin 500 mg/ Sodium (Chloride) 100 mls @ 100 mls/hr IVPB Q24H [facility] PRN Reason: Protocol Stop: 02/08/18 20:01 Last Admin: 02/03/18 19:31 Dose: 100 mls/hr Daptomycin 400 mg/ Sodium (Chloride) 100 mls @ 100 mls/hr IV Q24H [facility] PRN Reason: Protocol Stop: 02/08/18 16:01 Last Admin: 02/03/18 16:42 Dose: 100 mls/hr Insulin Aspart (Novolog) 0 unit SC Q6 [facility] PRN Reason: Protocol Last Admin: 02/04/18 10:51 Dose: Not Given Insulin Detemir (Levemir) 10 unit SC HS [facility] Last Admin: 02/03/18 21:21 Dose: 10 u Losartan Potassium (Cozaar) 25 mg PO DAILY [facility] Last Admin: 02/04/18 11:02 Dose: 25 mg Metoprolol Succinate (Toprol Xl) 12.5 mg PO DAILY [facility] Last Admin: 02/04/18 11:02 Dose: 12.5 mg Pantoprazole Sodium (Protonix Susp) 40 mg PO DAILY [facility] Last Admin: 02/04/18 11:02 Dose: 40 mg Sodium Bicarbonate (Sodium Bicarbonate Tab) 650 mg PO TID [facility] Last Admin: 02/04/18 11:02 Dose: 650 mg Tamsulosin HCl (Flomax) 0.4 mg PO DAILY [facility] Last Admin: 02/04/18 11:02 Dose: 0.4 mg - Labs Labs: 02/03/18 13:53 02/03/18 13:53 PT 14.1 SECONDS (9.7-12.2) H 01/31/18 08:01 INR 1.3 01/31/18 08:01 APTT 30 SECONDS (21-34) 01/13/18 17:42 - Constitutional Appears: Non-toxic - Head Exam Head Exam: ATRAUMATIC, NORMOCEPHALIC - Eye Exam Eye Exam: Normal appearance - ENT Exam ENT Exam: Mucous Membranes Moist, Normal Exam - Neck Exam Neck Exam: Normal Inspection - Respiratory Exam Respiratory Exam: Decreased Breath Sounds - Cardiovascular Exam Cardiovascular Exam: +S1, +S2 - GI/Abdominal Exam GI & Abdominal Exam: Diminished Bowel Sounds - Rectal Exam Rectal Exam: Deferred Assessment and Plan (1) JOY (acute kidney injury) Status: Acute (2) Change in mental status Status: Acute (3) Electrolyte imbalance Status: Acute (4) MRSA (methicillin resistant Staphylococcus aureus) septicemia Status: Acute (5) NSTEMI (non-ST elevated myocardial infarction) Status: Acute (6) Prophylactic measure Status: Acute (7) UTI (urinary tract infection) Status: Acute (8) CHF (congestive heart failure) Status: Chronic (9) CKD (chronic kidney disease) Status: Chronic (10) Diabetes mellitus Status: Chronic (11) Afib Status: Acute (12) Anemia Status: Acute (13) Bilateral hydronephrosis Status: Acute (14) CKD (chronic kidney disease) stage 4, GFR 15-29 ml/min Status: Acute (15) Metabolic acidosis Status: Acute (16) Dementia Status: Chronic - Assessment and Plan (Free Text) Plan: Patient seen and examined at bedside Discussed with staff Overnight events noted Labs and meds reviewed Repeat culture MRSA positive Discussed with Dr. Barnett Blood pressure and sugar control Soda bicarb Flomax Antibiotics as per ID
[2018-02-04] MEDS: SODIUM CHLORIDE 0.9% IVPB SCH (19:23)
[2018-02-04] MEDS: TELAVANCIN HYDROCHLORIDE IVPB SCH (19:23)
--- NOTE | 2018-02-04 19:42 | CP.PCM.PN ---
Subjective - Date & Time of Evaluation Date of Evaluation: 02/04/18 Time of Evaluation: 15:00 - Subjective Subjective: dictated Objective - Vital Signs/Intake and Output Vital Signs (last 24 hours): Temp Pulse Resp BP Pulse Ox 97.8 F 100 H 20 108/60 96 02/04/18 15:56 02/04/18 15:56 02/04/18 15:56 02/04/18 15:56 02/04/18 15:56 Intake and Output: 02/04/18 02/05/18 18:59 06:59 Intake Total 400 Output Total 300 Balance 100 - Medications Medications: Current Medications Acetaminophen (Tylenol 325mg Tab) 650 mg PO Q6 PRN PRN Reason: Fever >100.4 F Last Admin: 01/27/18 03:58 Dose: 650 mg Aspirin (Aspirin Chewable) 81 mg PO DAILY [facility] Last Admin: 02/04/18 11:02 Dose: 81 mg Sodium Chloride (Sodium Chloride 0.45%) 1,000 mls @ 70 mls/hr IV .[id number] [facility] Last Admin: 02/04/18 15:54 Dose: 70 mls/hr Telavancin 500 mg/ Sodium (Chloride) 100 mls @ 100 mls/hr IVPB Q24H [facility] PRN Reason: Protocol Stop: 02/08/18 20:01 Last Admin: 02/04/18 19:23 Dose: 100 mls/hr Daptomycin 400 mg/ Sodium (Chloride) 100 mls @ 100 mls/hr IV Q24H [facility] PRN Reason: Protocol Stop: 02/08/18 16:01 Last Admin: 02/04/18 15:54 Dose: 100 mls/hr Insulin Aspart (Novolog) 0 unit SC Q6 [facility] PRN Reason: Protocol Last Admin: 02/04/18 17:12 Dose: Not Given Insulin Detemir (Levemir) 10 unit SC HS [facility] Last Admin: 02/03/18 21:21 Dose: 10 u Losartan Potassium (Cozaar) 25 mg PO DAILY [facility] Last Admin: 02/04/18 11:02 Dose: 25 mg Metoprolol Succinate (Toprol Xl) 12.5 mg PO DAILY [facility] Last Admin: 02/04/18 11:02 Dose: 12.5 mg Pantoprazole Sodium (Protonix Susp) 40 mg PO DAILY [facility] Last Admin: 02/04/18 11:02 Dose: 40 mg Sodium Bicarbonate (Sodium Bicarbonate Tab) 650 mg PO TID [facility] Last Admin: 02/04/18 18:28 Dose: 650 mg Tamsulosin HCl (Flomax) 0.4 mg PO DAILY [facility] Last Admin: 02/04/18 11:02 Dose: 0.4 mg - Labs Labs: 02/03/18 13:53 02/03/18 13:53 PT 14.1 SECONDS (9.7-12.2) H 01/31/18 08:01 INR 1.3 01/31/18 08:01 APTT 30 SECONDS (21-34) 01/13/18 17:42
[2018-02-04] MEDS: Insulin Detemir 100 units/ml Vial (Levemir) SC SCH (21:19)
--- NOTE | 2018-02-05 00:32 | PN ---
DATE: 02/04/2018 SUBJECTIVE: The patient remains lethargic and not able to communicate. He has really poor quality of life. He has psych issues. Not able to verbalize, not able to communicate. Remains with renal insufficiency. Has septicemia which seems to persist. He has a poor ejection fraction. PHYSICAL EXAMINATION: VITAL SIGNS: T-max is 97.8, heart rate is 100, blood pressure is 108/60, respirations are 20. LUNGS: Clear. Occasional rhonchi. HEART: S1 and S2 are regular. ABDOMEN: Soft. Has a colostomy bag. EXTREMITIES: Have no edema. He has a [place] catheter. ASSESSMENT AND PLAN: Micro bear, the cultures are persistent with methicillin-resistant Staphylococcus aureus and at this time sensitivity, it is sensitive to Bactrim, vancomycin and linezolid. His creatinine was 2.4 or 2.5 yesterday, so, I do not think that I can give him vancomycin. Prognosis remains guarded. The patient should be a hospice patient. Teresa Barnett MD
[2018-02-05] MEDS: (Novolog) Insulin Aspart, Recombinant 100 u/ml 10 ml vial SC SCH ×5 (01:39→23:47)
[2018-02-05] MEDS: Sodium Chloride 0.45% 1,000 ML IV SCH ×2 (08:27→16:44)
[2018-02-05 11:00] LABS: BASO % 0.6 % (0.0-2.0); EOS # 0.1 K/uL (0.0-0.7); EOS % 1.8 % (0.0-4.0); HEMOGLOBIN 8.2 g/dL (12.0-18.0); LYMPH # 0.9 K/uL (1.0-4.3); LYMPH % 12.3 % (20.0-40.0); MEAN CELL VOLUME 84.9 fL (80.0-94.0); MEAN CORPUSCULAR HEMOGLOBIN 28.5 pg (27.0-31.0); MEAN CORPUSCULAR HGB CONC 33.6 g/dL (33.0-37.0); MEAN PLATELET VOLUME 7.4 fL (7.2-11.7); MONO # 0.6 K/uL (0.0-0.8); MONO % 7.8 % (0.0-10.0); NEUT # 5.9 K/uL (1.8-7.0); NEUT % 77.5 % (50.0-75.0); NRBC % 0.1 % (0.0-2.0); RBC 2.89 Mil/uL (4.40-5.90); WHITE BLOOD COUNT 7.6 K/uL (4.8-10.8)
[2018-02-05] MEDS: Pantoprazole 40 mg Susp UD PO SCH (11:00)
[2018-02-05] MEDS: Metoprolol Succinate 12.5 mg XL Tab PO SCH (11:00)
[2018-02-05 11:14] LABS: ALB/GLOB RATIO 0.8 (1.0-2.1); ALBUMIN 3.7 g/dL (3.5-5.0); CALCIUM 10.4 mg/dl (8.6-10.4)
--- NOTE | 2018-02-05 18:41 | CP.PCM.PN ---
Subjective - Date & Time of Evaluation Date of Evaluation: 02/05/18 Time of Evaluation: 16:00 - Subjective Subjective: DICTATED Objective - Vital Signs/Intake and Output Vital Signs (last 24 hours): Temp Pulse Resp BP Pulse Ox 99.1 F 90 20 113/64 98 02/05/18 15:00 02/05/18 15:00 02/05/18 15:00 02/05/18 15:00 02/05/18 15:00 Intake and Output: 02/05/18 02/05/18 06:59 18:59 Intake Total 1250 300 Output Total 600 Balance 650 300 - Medications Medications: Current Medications Acetaminophen (Tylenol 325mg Tab) 650 mg PO Q6 PRN PRN Reason: Fever >100.4 F Last Admin: 01/27/18 03:58 Dose: 650 mg Aspirin (Aspirin Chewable) 81 mg PO DAILY [facility] Last Admin: 02/05/18 11:00 Dose: 81 mg Telavancin 500 mg/ Sodium (Chloride) 100 mls @ 100 mls/hr IVPB Q24H [facility] PRN Reason: Protocol Stop: 02/08/18 20:01 Last Admin: 02/04/18 19:23 Dose: 100 mls/hr Daptomycin 400 mg/ Sodium (Chloride) 100 mls @ 100 mls/hr IV Q24H [facility] PRN Reason: Protocol Stop: 02/08/18 16:01 Last Admin: 02/05/18 15:35 Dose: 100 mls/hr Insulin Aspart (Novolog) 0 unit SC Q6 [facility] PRN Reason: Protocol Last Admin: 02/05/18 17:05 Dose: Not Given Insulin Detemir (Levemir) 10 unit SC [facility] Last Admin: 02/04/18 21:19 Dose: 10 units Losartan Potassium (Cozaar) 25 mg PO DAILY [facility] Last Admin: 02/05/18 11:00 Dose: 25 mg Metoprolol Succinate (Toprol Xl) 12.5 mg PO DAILY [facility] Last Admin: 02/05/18 11:00 Dose: 12.5 mg Pantoprazole Sodium (Protonix Susp) 40 mg PO DAILY [facility] Last Admin: 02/05/18 11:00 Dose: 40 mg Sodium Bicarbonate (Sodium Bicarbonate Tab) 650 mg PO TID [facility] Last Admin: 02/05/18 17:22 Dose: 650 mg Tamsulosin HCl (Flomax) 0.4 mg PO DAILY [facility] Last Admin: 02/05/18 11:00 Dose: 0.4 mg - Labs Labs: 02/05/18 10:56 02/05/18 10:56 PT 14.1 SECONDS (9.7-12.2) H 01/31/18 08:01 INR 1.3 01/31/18 08:01 APTT 30 SECONDS (21-34) 01/13/18 17:42
[2018-02-05] MEDS: TELAVANCIN HYDROCHLORIDE IVPB SCH (19:27)
[2018-02-05] MEDS: SODIUM CHLORIDE 0.9% IVPB SCH (19:27)
--- NOTE | 2018-02-05 20:12 | CP.PCM.PN ---
Subjective - Date & Time of Evaluation Date of Evaluation: 02/05/18 Time of Evaluation: 08:00 - Subjective Subjective: clinically same Objective - Vital Signs/Intake and Output Vital Signs (last 24 hours): Temp Pulse Resp BP Pulse Ox 98.9 F 94 H 20 110/58 L 98 02/05/18 19:52 02/05/18 19:52 02/05/18 15:00 02/05/18 19:52 02/05/18 15:00 Intake and Output: 02/05/18 02/06/18 18:59 06:59 Intake Total 300 Balance 300 - Medications Medications: Current Medications Acetaminophen (Tylenol 325mg Tab) 650 mg PO Q6 PRN PRN Reason: Fever >100.4 F Last Admin: 01/27/18 03:58 Dose: 650 mg Aspirin (Aspirin Chewable) 81 mg PO DAILY [facility] Last Admin: 02/05/18 11:00 Dose: 81 mg Telavancin 500 mg/ Sodium (Chloride) 100 mls @ 100 mls/hr IVPB Q24H [facility] PRN Reason: Protocol Stop: 02/08/18 20:01 Last Admin: 02/05/18 19:27 Dose: 100 mls/hr Daptomycin 400 mg/ Sodium (Chloride) 100 mls @ 100 mls/hr IV Q24H [facility] PRN Reason: Protocol Stop: 02/08/18 16:01 Last Admin: 02/05/18 15:35 Dose: 100 mls/hr Insulin Aspart (Novolog) 0 unit SC Q6 [facility] PRN Reason: Protocol Last Admin: 02/05/18 17:05 Dose: Not Given Insulin Detemir (Levemir) [address] [facility] Last Admin: 02/04/18 21:19 Dose: 10 units Losartan Potassium (Cozaar) 25 mg PO DAILY [facility] Last Admin: 02/05/18 11:00 Dose: 25 mg Metoprolol Succinate (Toprol Xl) 12.5 mg PO DAILY [facility] Last Admin: 02/05/18 11:00 Dose: 12.5 mg Pantoprazole Sodium (Protonix Susp) 40 mg PO DAILY [facility] Last Admin: 02/05/18 11:00 Dose: 40 mg Sodium Bicarbonate (Sodium Bicarbonate Tab) 650 mg PO TID [facility] Last Admin: 02/05/18 17:22 Dose: 650 mg Tamsulosin HCl (Flomax) 0.4 mg PO DAILY [facility] Last Admin: 02/05/18 11:00 Dose: 0.4 mg - Labs Labs: 02/05/18 10:56 02/05/18 10:56 PT 14.1 SECONDS (9.7-12.2) H 01/31/18 08:01 INR 1.3 01/31/18 08:01 APTT 30 SECONDS (21-34) 01/13/18 17:42 - Constitutional Appears: Non-toxic, No Acute Distress - Head Exam Head Exam: NORMAL INSPECTION - Eye Exam Eye Exam: Normal appearance - ENT Exam ENT Exam: Mucous Membranes Moist - Neck Exam Neck Exam: Normal Inspection - Respiratory Exam Respiratory Exam: Decreased Breath Sounds - Cardiovascular Exam Cardiovascular Exam: +S1, +S2 - GI/Abdominal Exam GI & Abdominal Exam: Diminished Bowel Sounds - Rectal Exam Rectal Exam: Deferred Assessment and Plan (1) JOY (acute kidney injury) Status: Acute (2) Change in mental status Status: Acute (3) Electrolyte imbalance Status: Acute (4) MRSA (methicillin resistant Staphylococcus aureus) septicemia Status: Acute (5) NSTEMI (non-ST elevated myocardial infarction) Status: Acute (6) Prophylactic measure Status: Acute (7) UTI (urinary tract infection) Status: Acute (8) CHF (congestive heart failure) Status: Chronic (9) CKD (chronic kidney disease) Status: Chronic (10) Diabetes mellitus Status: Chronic (11) Afib Status: Acute (12) Anemia Status: Acute (13) Bilateral hydronephrosis Status: Acute (14) CKD (chronic kidney disease) stage 4, GFR 15-29 ml/min Status: Acute (15) Metabolic acidosis Status: Acute (16) Dementia Status: Chronic - Assessment and Plan (Free Text) Plan: Patient seen and examined at bedside Labs and meds reviewed Discussed with Dr. Barnett Hemoglobin 8.2 BUN and creat is high Accu-Cheks Glycemic control Blood pressure meds Soda bicarb Continue aspirin Antibiotics as per ID
--- NOTE | 2018-02-05 21:23 | PN ---
DATE: 02/05/2018 The patient is afebrile, but he does not want to communicate. He still remains with bacteremia. He has a peripheral IV. His colostomy seems to be functioning. linezolid and is sensitive to few things. He is on medications. He is on daptomycin and telavancin, and we are giving it every day which just does not seem to work. He probably has endovascular lesions somewhere or deep bone, may be I should do a bone scan, but I did a Ceretec scan which did not light up for any. His creatinine is 2.3, and we are continuing these treatment, unclear, and he has received it from several days. He has been on this treatment from 01/15/2018 and today is almost 02/05/2018, three weeks of treatment. We will repeat the cultures on Wednesday, and if they do not clear, I am going to put him on Zyvox for 10 days and would let him go back to the rehab or we can have him evaluated by another, I may ask Dr. Conner to look into it and also I will order serum teichoic acid level to see if he has deep sedated infection with MRSA. We will follow. The patient has persistent Staphylococcus aureus, MRSA infection. Etiology is unclear. I know he does have wounds, may be those needed to be debrided both heels and there may be persistence of infection or it is the bladder. Teresa Barnett MD
[2018-02-05] MEDS: Insulin Detemir 100 units/ml Vial (Levemir) SC SCH (21:29)
[2018-02-06] MEDS: (Novolog) Insulin Aspart, Recombinant 100 u/ml 10 ml vial SC SCH ×4 (06:41→23:59)
[2018-02-06] MEDS: Metoprolol Succinate 12.5 mg XL Tab PO SCH (10:42)
[2018-02-06] MEDS: Pantoprazole 40 mg Susp UD PO SCH (10:44)
--- NOTE | 2018-02-06 18:07 | CP.PCM.PN ---
Subjective - Date & Time of Evaluation Date of Evaluation: 02/06/18 Time of Evaluation: 08:00 - Subjective Subjective: clinically same Objective - Vital Signs/Intake and Output Vital Signs (last 24 hours): Temp Pulse Resp BP Pulse Ox 98 F 90 20 117/63 96 02/06/18 16:43 02/06/18 16:43 02/06/18 16:43 02/06/18 16:43 02/06/18 16:43 Intake and Output: 02/06/18 02/06/18 06:59 18:59 Intake Total 1140 Output Total 150 Balance 990 - Medications Medications: Current Medications Acetaminophen (Tylenol 325mg Tab) 650 mg PO Q6 PRN PRN Reason: Fever >100.4 F Last Admin: 01/27/18 03:58 Dose: 650 mg Aspirin (Aspirin Chewable) 81 mg PO DAILY [facility] Last Admin: 02/06/18 10:42 Dose: 81 mg Telavancin 500 mg/ Sodium (Chloride) 100 mls @ 100 mls/hr IVPB Q24H [facility] PRN Reason: Protocol Stop: 02/08/18 20:01 Last Admin: 02/05/18 19:27 Dose: 100 mls/hr Daptomycin 400 mg/ Sodium (Chloride) 100 mls @ 100 mls/hr IV Q24H [facility] PRN Reason: Protocol Stop: 02/08/18 16:01 Last Admin: 02/06/18 16:20 Dose: 100 mls/hr Insulin Aspart (Novolog) 0 unit SC Q6 [facility] PRN Reason: Protocol Last Admin: 02/06/18 12:44 Dose: 2 units Insulin Detemir (Levemir) 10 unit SC HS [facility] Last Admin: 02/05/18 21:29 Dose: 10 units Losartan Potassium (Cozaar) 25 mg PO DAILY [facility] Last Admin: 02/06/18 10:43 Dose: 25 mg Metoprolol Succinate (Toprol Xl) 12.5 mg PO DAILY [facility] Last Admin: 02/06/18 10:42 Dose: 12.5 mg Pantoprazole Sodium (Protonix Susp) 40 mg PO DAILY [facility] Last Admin: 02/06/18 10:44 Dose: 40 mg Sodium Bicarbonate (Sodium Bicarbonate Tab) 650 mg PO TID [facility] Last Admin: 02/06/18 13:53 Dose: 650 mg Tamsulosin HCl (Flomax) 0.4 mg PO DAILY [facility] Last Admin: 02/06/18 10:42 Dose: 0.4 mg - Labs Labs: 02/05/18 10:56 02/05/18 10:56 PT 14.1 SECONDS (9.7-12.2) H 01/31/18 08:01 INR 1.3 01/31/18 08:01 APTT 30 SECONDS (21-34) 01/13/18 17:42 - Constitutional Appears: Non-toxic, No Acute Distress - Head Exam Head Exam: ATRAUMATIC - Eye Exam Eye Exam: Normal appearance - ENT Exam ENT Exam: Mucous Membranes Moist, Normal Exam - Neck Exam Neck Exam: Normal Inspection - Respiratory Exam Respiratory Exam: Decreased Breath Sounds - Cardiovascular Exam Cardiovascular Exam: +S1, +S2 - GI/Abdominal Exam GI & Abdominal Exam: Diminished Bowel Sounds - Rectal Exam Rectal Exam: Deferred Assessment and Plan (1) JOY (acute kidney injury) Status: Acute (2) Change in mental status Status: Acute (3) Electrolyte imbalance Status: Acute (4) MRSA (methicillin resistant Staphylococcus aureus) septicemia Status: Acute (5) NSTEMI (non-ST elevated myocardial infarction) Status: Acute (6) Prophylactic measure Status: Acute (7) UTI (urinary tract infection) Status: Acute (8) CHF (congestive heart failure) Status: Chronic (9) CKD (chronic kidney disease) Status: Chronic (10) Diabetes mellitus Status: Chronic (11) Afib Status: Acute (12) Anemia Status: Acute (13) Bilateral hydronephrosis Status: Acute (14) CKD (chronic kidney disease) stage 4, GFR 15-29 ml/min Status: Acute (15) Metabolic acidosis Status: Acute (16) Dementia Status: Chronic - Assessment and Plan (Free Text) Plan: Patient hemodynamically stable Labs and meds reviewed Overnight events noted Meds as advised Daptomycin Telavancin Accu-Cheks Insulins Flomax Monitor labs
[2018-02-06] MEDS: SODIUM CHLORIDE 0.9% IVPB SCH (20:20)
[2018-02-06] MEDS: TELAVANCIN HYDROCHLORIDE IVPB SCH (20:20)
[2018-02-06] MEDS: Insulin Detemir 100 units/ml Vial (Levemir) SC SCH (21:54)
[2018-02-07] MEDS: (Novolog) Insulin Aspart, Recombinant 100 u/ml 10 ml vial SC SCH ×3 (06:42→17:49)
[2018-02-07] MEDS: Metoprolol Succinate 12.5 mg XL Tab PO SCH (09:32)
[2018-02-07] MEDS: Pantoprazole 40 mg Susp UD PO SCH (10:44)
[2018-02-07 12:31] LABS: BASO % 0.7 % (0.0-2.0); EOS # 0.1 K/uL (0.0-0.7); EOS % 1.7 % (0.0-4.0); HEMOGLOBIN 8.3 g/dL (12.0-18.0); LYMPH # 0.7 K/uL (1.0-4.3); LYMPH % 10.5 % (20.0-40.0); MEAN CELL VOLUME 84.8 fL (80.0-94.0); MEAN CORPUSCULAR HEMOGLOBIN 28.8 pg (27.0-31.0); MEAN PLATELET VOLUME 7.6 fL (7.2-11.7); MONO # 0.6 K/uL (0.0-0.8); MONO % 8.3 % (0.0-10.0); NEUT # 5.6 K/uL (1.8-7.0); NEUT % 78.8 % (50.0-75.0); RBC 2.88 Mil/uL (4.40-5.90); RED CELL DISTRIBUTION WIDTH 16.5 % (11.5-14.5); WHITE BLOOD COUNT 7.1 K/uL (4.8-10.8)
[2018-02-07 12:49] LABS: ALB/GLOB RATIO 0.8 (1.0-2.1); ALBUMIN 3.6 g/dL (3.5-5.0); CALCIUM 10.2 mg/dl (8.6-10.4)
--- NOTE | 2018-02-07 15:39 | CP.PCM.PN ---
Subjective - Date & Time of Evaluation Date of Evaluation: 02/07/18 Time of Evaluation: 03:00 - Subjective Subjective: dictated Objective - Vital Signs/Intake and Output Vital Signs (last 24 hours): Temp Pulse Resp BP Pulse Ox 98.1 F 112 H 20 134/69 95 02/07/18 07:30 02/07/18 09:34 02/07/18 07:30 02/07/18 09:34 02/07/18 07:30 Intake and Output: 02/07/18 02/07/18 06:59 18:59 Intake Total 200 Balance 200 - Medications Medications: Current Medications Acetaminophen (Tylenol 325mg Tab) 650 mg PO Q6 PRN PRN Reason: Fever >100.4 F Last Admin: 01/27/18 03:58 Dose: 650 mg Aspirin (Aspirin Chewable) 81 mg PO DAILY [facility] Last Admin: 02/07/18 09:32 Dose: 81 mg Telavancin 500 mg/ Sodium (Chloride) 100 mls @ 100 mls/hr IVPB Q24H [facility] PRN Reason: Protocol Stop: 02/08/18 20:01 Last Admin: 02/06/18 20:20 Dose: 100 mls/hr Daptomycin 400 mg/ Sodium (Chloride) 100 mls @ 100 mls/hr IV Q24H [facility] PRN Reason: Protocol Stop: 02/08/18 16:01 Last Admin: 02/06/18 16:20 Dose: 100 mls/hr Insulin Aspart (Novolog) 0 unit SC Q6 [facility] PRN Reason: Protocol Last Admin: 02/07/18 12:36 Dose: 3 units Insulin Detemir (Levemir) 10 unit SC HS [facility] Last Admin: 02/06/18 21:54 Dose: 10 units Losartan Potassium (Cozaar) 25 mg PO DAILY [facility] Last Admin: 02/07/18 09:32 Dose: 25 mg Metoprolol Succinate (Toprol Xl) 12.5 mg PO DAILY [facility] Last Admin: 02/07/18 09:32 Dose: 12.5 mg Pantoprazole Sodium (Protonix Susp) 40 mg PO DAILY [facility] Last Admin: 02/07/18 10:44 Dose: Not Given Sodium Bicarbonate (Sodium Bicarbonate Tab) 650 mg PO TID [facility] Last Admin: 02/07/18 13:35 Dose: 650 mg Tamsulosin HCl (Flomax) 0.4 mg PO DAILY [facility] Last Admin: 02/07/18 09:32 Dose: 0.4 mg - Labs Labs: 02/07/18 12:20 02/07/18 12:20 PT 14.1 SECONDS (9.7-12.2) H 01/31/18 08:01 INR 1.3 01/31/18 08:01 APTT 30 SECONDS (21-34) 01/13/18 17:42
--- NOTE | 2018-02-07 18:26 | CP.PCM.PN ---
Subjective - Date & Time of Evaluation Date of Evaluation: 02/07/18 Time of Evaluation: 08:00 - Subjective Subjective: clinically same Objective - Vital Signs/Intake and Output Vital Signs (last 24 hours): Temp Pulse Resp BP Pulse Ox 97.7 F 96 H 20 111/65 94 L 02/07/18 18:09 02/07/18 18:09 02/07/18 18:09 02/07/18 18:09 02/07/18 18:09 Intake and Output: 02/07/18 02/07/18 06:59 18:59 Intake Total 200 Balance 200 - Medications Medications: Current Medications Acetaminophen (Tylenol 325mg Tab) 650 mg PO Q6 PRN PRN Reason: Fever >100.4 F Last Admin: 01/27/18 03:58 Dose: 650 mg Aspirin (Aspirin Chewable) 81 mg PO DAILY [facility] Last Admin: 02/07/18 09:32 Dose: 81 mg Telavancin 500 mg/ Sodium (Chloride) 100 mls @ 100 mls/hr IVPB Q24H [facility] PRN Reason: Protocol Stop: 02/08/18 20:01 Last Admin: 02/06/18 20:20 Dose: 100 mls/hr Daptomycin 400 mg/ Sodium (Chloride) 100 mls @ 100 mls/hr IV Q24H [facility] PRN Reason: Protocol Stop: 02/08/18 16:01 Last Admin: 02/07/18 16:44 Dose: 100 mls/hr Insulin Aspart (Novolog) 0 unit SC Q6 [facility] PRN Reason: Protocol Last Admin: 02/07/18 17:49 Dose: 2 units Insulin Detemir (Levemir) 10 unit SC HS [facility] Last Admin: 02/06/18 21:54 Dose: 10 units Losartan Potassium (Cozaar) 25 mg PO DAILY [facility] Last Admin: 02/07/18 09:32 Dose: 25 mg Metoprolol Succinate (Toprol Xl) 12.5 mg PO DAILY [facility] Last Admin: 02/07/18 09:32 Dose: 12.5 mg Pantoprazole Sodium (Protonix Susp) 40 mg PO DAILY [facility] Last Admin: 02/07/18 10:44 Dose: Not Given Sodium Bicarbonate (Sodium Bicarbonate Tab) 650 mg PO TID [facility] Last Admin: 02/07/18 17:50 Dose: 650 mg Tamsulosin HCl (Flomax) 0.4 mg PO DAILY [facility] Last Admin: 02/07/18 09:32 Dose: 0.4 mg - Labs Labs: 02/07/18 12:20 02/07/18 12:20 PT 14.1 SECONDS (9.7-12.2) H 01/31/18 08:01 INR 1.3 01/31/18 08:01 APTT 30 SECONDS (21-34) 01/13/18 17:42 - Constitutional Appears: Non-toxic, No Acute Distress - Head Exam Head Exam: ATRAUMATIC - Eye Exam Eye Exam: Normal appearance - ENT Exam ENT Exam: Mucous Membranes Moist - Neck Exam Neck Exam: Normal Inspection - Respiratory Exam Respiratory Exam: Decreased Breath Sounds - Cardiovascular Exam Cardiovascular Exam: +S1, +S2 - GI/Abdominal Exam GI & Abdominal Exam: Diminished Bowel Sounds - Rectal Exam Rectal Exam: Deferred Assessment and Plan (1) JOY (acute kidney injury) Status: Acute (2) Change in mental status Status: Acute (3) Electrolyte imbalance Status: Acute (4) MRSA (methicillin resistant Staphylococcus aureus) septicemia Status: Acute (5) NSTEMI (non-ST elevated myocardial infarction) Status: Acute (6) Prophylactic measure Status: Acute (7) UTI (urinary tract infection) Status: Acute (8) CHF (congestive heart failure) Status: Chronic (9) CKD (chronic kidney disease) Status: Chronic (10) Diabetes mellitus Status: Chronic (11) Afib Status: Acute (12) Anemia Status: Acute (13) Bilateral hydronephrosis Status: Acute (14) CKD (chronic kidney disease) stage 4, GFR 15-29 ml/min Status: Acute (15) Metabolic acidosis Status: Acute (16) Dementia Status: Chronic - Assessment and Plan (Free Text) Plan: Patient hemodynamically stable Labs and meds reviewed Vitals noted Discussed with ID Hemoglobin still low 8.3 Blood pressure control Blood sugar monitoring Continue antibiotics as per ID Follow-up with labs
[2018-02-07] MEDS: SODIUM CHLORIDE 0.9% IVPB SCH (20:31)
[2018-02-07] MEDS: TELAVANCIN HYDROCHLORIDE IVPB SCH (20:31)
[2018-02-07] MEDS: Insulin Detemir 100 units/ml Vial (Levemir) SC SCH (21:13)
[2018-02-08] MEDS: (Novolog) Insulin Aspart, Recombinant 100 u/ml 10 ml vial SC SCH ×4 (00:48→18:34)
--- NOTE | 2018-02-08 02:41 | PN ---
DATE: 02/07/2018 INFECTIOUS DISEASE FOLLOWUP SUBJECTIVE: The patient was drowsy, seemed like awake but did not want to communicate. He has some mental issues. PHYSICAL EXAMINATION: VITAL SIGNS: T-max is 97.7, pulse 96, blood pressure 111/65, respirations are 20. HEENT: Head is atraumatic and normocephalic. NECK: Supple. Has a peripheral IV. LUNGS: Clear. Occasional rhonchi. HEART: S1 and S2 are regular. ABDOMEN: Soft. Colostomy present. EXTREMITIES: I looked up the heels, look unremarkable. He does have foot protectors. There is no open wound. LABORATORY DATA: White count is 7.1, hemoglobin 8.3, hematocrit 24.4, platelet count is 369. BUN is 47. Creatinine is 2.1, remains high. His blood cultures from 01/06/2018 came out negative. ASSESSMENT AND PLAN: Right now, he has had persistent methicillin-resistant Staphylococcus aureus for so many days and had at least seven blood cultures positive from methicillin-resistant Staphylococcus aureus. He has persistent bacteremia. We will need antibiotics for at least six weeks for both of them. He came in with urinary tract infection and cystitis, probably has chronic prostatitis which is giving him this persistent bacteremia. I am told he has cardiac issues. Urology is following. Hopefully, this will remain negative. Otherwise, it is hard to clear his methicillin-resistant Staphylococcus aureus. He is on two effective antibiotics at the same time to clear it, but it has been hard and we have and the etiology remains unclear except for the genitourinary source. Teresa Barnett MD
[2018-02-08] MEDS: Pantoprazole 40 mg Susp UD PO SCH (09:45)
[2018-02-08] MEDS: Metoprolol Succinate 12.5 mg XL Tab PO SCH (09:45)
--- NOTE | 2018-02-08 15:23 | CP.PCM.PN ---
Subjective - Date & Time of Evaluation Date of Evaluation: 02/08/18 Time of Evaluation: 14:15 - Subjective Subjective: dictated Objective - Vital Signs/Intake and Output Vital Signs (last 24 hours): Temp Pulse Resp BP Pulse Ox 98.7 F 90 20 108/61 98 02/08/18 07:00 02/08/18 07:00 02/08/18 07:00 02/08/18 07:00 02/08/18 07:00 Intake and Output: 02/08/18 02/08/18 06:59 18:59 Output Total 50 Balance -50 - Medications Medications: Current Medications Acetaminophen (Tylenol 325mg Tab) 650 mg PO Q6 PRN PRN Reason: Fever >100.4 F Last Admin: 01/27/18 03:58 Dose: 650 mg Aspirin (Aspirin Chewable) 81 mg PO DAILY [facility] Last Admin: 02/08/18 09:45 Dose: 81 mg Telavancin 500 mg/ Sodium (Chloride) 100 mls @ 100 mls/hr IVPB Q24H [facility]; Protocol Stop: 02/08/18 20:01 Last Admin: 02/07/18 20:31 Dose: 100 mls/hr Daptomycin 400 mg/ Sodium (Chloride) 100 mls @ 100 mls/hr IV Q24H [facility]; Protocol Stop: 02/08/18 16:01 Last Admin: 02/07/18 16:44 Dose: 100 mls/hr Insulin Aspart (Novolog) 0 unit SC Q6 [facility]; Protocol Last Admin: 02/08/18 12:08 Dose: Not Given Insulin Detemir (Levemir) 10 unit SC HS [facility] Last Admin: 02/07/18 21:13 Dose: 10 units Losartan Potassium (Cozaar) 25 mg PO DAILY [facility] Last Admin: 02/08/18 09:45 Dose: 25 mg Metoprolol Succinate (Toprol Xl) 12.5 mg PO DAILY [facility] Last Admin: 02/08/18 09:45 Dose: 12.5 mg Pantoprazole Sodium (Protonix Susp) 40 mg PO DAILY [facility] Last Admin: 02/08/18 09:45 Dose: 40 mg Sodium Bicarbonate (Sodium Bicarbonate Tab) 650 mg PO TID [facility] Last Admin: 02/08/18 13:42 Dose: 650 mg Tamsulosin HCl (Flomax) 0.4 mg PO DAILY [facility] Last Admin: 02/08/18 09:45 Dose: 0.4 mg - Labs Labs: 02/07/18 12:20 02/07/18 12:20 PT 14.1 SECONDS (9.7-12.2) H 01/31/18 08:01 INR 1.3 01/31/18 08:01 APTT 30 SECONDS (21-34) 01/13/18 17:42
--- NOTE | 2018-02-08 17:27 | CP.PCM.PN ---
Subjective - Date & Time of Evaluation Date of Evaluation: 02/08/18 Time of Evaluation: 08:00 - Subjective Subjective: clinically same Objective - Vital Signs/Intake and Output Vital Signs (last 24 hours): Temp Pulse Resp BP Pulse Ox 98.7 F 119 H 20 146/68 99 02/08/18 15:00 02/08/18 15:00 02/08/18 15:00 02/08/18 15:00 02/08/18 15:00 Intake and Output: 02/08/18 02/08/18 06:59 18:59 Output Total 50 Balance -50 - Medications Medications: Current Medications Acetaminophen (Tylenol 325mg Tab) 650 mg PO Q6 PRN PRN Reason: Fever >100.4 F Last Admin: 01/27/18 03:58 Dose: 650 mg Aspirin (Aspirin Chewable) 81 mg PO DAILY [facility] Last Admin: 02/08/18 09:45 Dose: 81 mg Telavancin 500 mg/ Sodium (Chloride) 100 mls @ 100 mls/hr IVPB Q24H [facility]; Protocol Stop: 02/08/18 20:01 Last Admin: 02/07/18 20:31 Dose: 100 mls/hr Insulin Aspart (Novolog) 0 unit SC Q6 [facility]; Protocol Last Admin: 02/08/18 12:08 Dose: Not Given Insulin Detemir (Levemir) 10 unit SC [facility] Last Admin: 02/07/18 21:13 Dose: 10 units Losartan Potassium (Cozaar) 25 mg PO DAILY [facility] Last Admin: 02/08/18 09:45 Dose: 25 mg Metoprolol Succinate (Toprol Xl) 12.5 mg PO DAILY [facility] Last Admin: 02/08/18 09:45 Dose: 12.5 mg Pantoprazole Sodium (Protonix Susp) 40 mg PO DAILY [facility] Last Admin: 02/08/18 09:45 Dose: 40 mg Sodium Bicarbonate (Sodium Bicarbonate Tab) 650 mg PO TID [facility] Last Admin: 02/08/18 13:42 Dose: 650 mg Tamsulosin HCl (Flomax) 0.4 mg PO DAILY [facility] Last Admin: 02/08/18 09:45 Dose: 0.4 mg - Labs Labs: 02/07/18 12:20 02/07/18 12:20 PT 14.1 SECONDS (9.7-12.2) H 01/31/18 08:01 INR 1.3 01/31/18 08:01 APTT 30 SECONDS (21-34) 01/13/18 17:42 - Constitutional Appears: Well - Head Exam Head Exam: ATRAUMATIC, NORMAL INSPECTION, NORMOCEPHALIC - Eye Exam Eye Exam: EOMI, Normal appearance, PERRL Pupil Exam: NORMAL ACCOMODATION, PERRL - ENT Exam ENT Exam: Mucous Membranes Moist, Normal Exam - Neck Exam Neck Exam: Full ROM, Normal Inspection. absent: Lymphadenopathy - Respiratory Exam Respiratory Exam: Decreased Breath Sounds - Cardiovascular Exam Cardiovascular Exam: REGULAR RHYTHM, +S1, +S2 - GI/Abdominal Exam GI & Abdominal Exam: Soft, Diminished Bowel Sounds - Rectal Exam Rectal Exam: Deferred Assessment and Plan (1) JOY (acute kidney injury) Status: Acute (2) Change in mental status Status: Acute (3) Electrolyte imbalance Status: Acute (4) MRSA (methicillin resistant Staphylococcus aureus) septicemia Status: Acute (5) NSTEMI (non-ST elevated myocardial infarction) Status: Acute (6) Prophylactic measure Status: Acute (7) UTI (urinary tract infection) Status: Acute (8) CHF (congestive heart failure) Status: Chronic (9) CKD (chronic kidney disease) Status: Chronic (10) Diabetes mellitus Status: Chronic (11) Afib Status: Acute (12) Anemia Status: Acute (13) Bilateral hydronephrosis Status: Acute (14) CKD (chronic kidney disease) stage 4, GFR 15-29 ml/min Status: Acute (15) Metabolic acidosis Status: Acute (16) Dementia Status: Chronic - Assessment and Plan (Free Text) Plan: Patient seen and examined at bedside Discussed with staff Overnight events noted Labs and meds reviewed Continue as advised Continue blood pressure meds DVT/GI prophylaxis Antibiotics as per ID Close monitoring
[2018-02-08] MEDS: SODIUM CHLORIDE 0.9% IVPB SCH (20:28)
[2018-02-08] MEDS: TELAVANCIN HYDROCHLORIDE IVPB SCH (20:28)
[2018-02-08] MEDS: Insulin Detemir 100 units/ml Vial (Levemir) SC SCH (21:29)
--- NOTE | 2018-02-09 06:16 | PN ---
DATE: 02/08/2018 SUBJECTIVE: The patient is awake but does not communicate much. He remains afebrile. They were giving him his medications and cleaning him. We tried to look over. PHYSICAL EXAMINATION: VITAL SIGNS: T-max is 98.7, heart rate is 119, blood pressure is 146/68, respirations are 20. HEENT: Head is atraumatic and normocephalic. NECK: Supple. LUNGS: Clear. No crackles or rales present. HEART: S1 and S2 are regular. ABDOMEN: Soft and nontender. He has a colostomy. EXTREMITIES: He has on the left lateral malleolus blackish scab and some blackish scab on the heel; otherwise, all the wounds have healed and in the sacral area, there is a healing wound. There is not much going on. LABORATORY DATA: Labs are noted. The last blood cultures finally are negative for 48 hours. ASSESSMENT AND PLAN: He is on telavancin as well as Cubicin. I want to make sure these things. I need to renew the telavancin and Cubicin. I am not sure who discontinued them, but it needs to be continued. We will need these antibiotics to be given for total of six weeks. I will put him back on Cubicin. We will follow. The patient had methicillin-resistant Staphylococcus aureus infection which was persistent and probably has deep-seated infection which we are not able to detect. Hence, he needs six weeks of treatment for unknown etiology of methicillin-resistant Staphylococcus aureus or it could be the chronic prostatitis and cystitis. We will continue with the antibiotics. Teresa Barnett MD
[2018-02-09] MEDS: (Novolog) Insulin Aspart, Recombinant 100 u/ml 10 ml vial SC SCH ×4 (06:29→17:34)
[2018-02-09 07:10] LABS: BASO # 0.1 K/uL (0.0-0.2); BASO % 0.9 % (0.0-2.0); EOS # 0.1 K/uL (0.0-0.7); EOS % 1.8 % (0.0-4.0); HEMOGLOBIN 7.7 g/dL (12.0-18.0); LYMPH # 1.1 K/uL (1.0-4.3); LYMPH % 14.4 % (20.0-40.0); MEAN CELL VOLUME 86.4 fL (80.0-94.0); MEAN CORPUSCULAR HEMOGLOBIN 28.8 pg (27.0-31.0); MEAN CORPUSCULAR HGB CONC 33.3 g/dL (33.0-37.0); MEAN PLATELET VOLUME 7.5 fL (7.2-11.7); MONO # 0.6 K/uL (0.0-0.8); MONO % 8.2 % (0.0-10.0); NEUT # 5.8 K/uL (1.8-7.0); NEUT % 74.7 % (50.0-75.0); NRBC % 0.1 % (0.0-2.0); RBC 2.68 Mil/uL (4.40-5.90); RED CELL DISTRIBUTION WIDTH 17.1 % (11.5-14.5); WHITE BLOOD COUNT 7.7 K/uL (4.8-10.8)
[2018-02-09 07:43] LABS: ALB/GLOB RATIO 0.7 (1.0-2.1); ALBUMIN 3.5 g/dL (3.5-5.0); CALCIUM 10.6 mg/dl (8.6-10.4)
[2018-02-09] MEDS: Metoprolol Succinate 12.5 mg XL Tab PO SCH (10:48)
[2018-02-09] MEDS: Pantoprazole 40 mg Susp UD PO SCH (10:48)
[2018-02-09] MEDS ORDERED: Sod Polystyrene Sulf 15 gm/60 ml Susp PO ONE (11:45)
--- NOTE | 2018-02-09 18:26 | CP.PCM.PN ---
Subjective - Date & Time of Evaluation Date of Evaluation: 02/09/18 Time of Evaluation: 08:00 - Subjective Subjective: clinically same Objective - Vital Signs/Intake and Output Vital Signs (last 24 hours): Temp Pulse Resp BP Pulse Ox 97.8 F 105 H 20 105/66 96 02/09/18 15:00 02/09/18 15:00 02/09/18 15:00 02/09/18 15:00 02/09/18 15:00 Intake and Output: 02/09/18 02/09/18 06:59 18:59 Intake Total 550 Output Total 450 350 Balance 100 -350 - Medications Medications: Current Medications Acetaminophen (Tylenol 325mg Tab) 650 mg PO Q6 PRN PRN Reason: Fever >100.4 F Last Admin: 01/27/18 03:58 Dose: 650 mg Aspirin (Aspirin Chewable) 81 mg PO DAILY [facility] Last Admin: 02/09/18 10:48 Dose: 81 mg Daptomycin 400 mg/ Sodium (Chloride) 100 mls @ 100 mls/hr IV Q24H [facility]; Protocol Stop: 02/14/18 17:01 Last Admin: 02/09/18 16:58 Dose: 100 mls/hr Telavancin 750 mg/ Dextrose 100 mls @ 100 mls/hr IVPB Q24H [facility]; Protocol Insulin Aspart (Novolog) 0 unit SC Q6 [facility]; Protocol Last Admin: 02/09/18 17:34 Dose: 2 units Insulin Detemir (Levemir) 10 unit SC HS [facility] Last Admin: 02/08/18 21:29 Dose: 10 units Losartan Potassium (Cozaar) 25 mg PO DAILY [facility] Last Admin: 02/09/18 10:48 Dose: 25 mg Metoprolol Succinate (Toprol Xl) 12.5 mg PO DAILY [facility] Last Admin: 02/09/18 10:48 Dose: 12.5 mg Pantoprazole Sodium (Protonix Susp) 40 mg PO DAILY [facility] Last Admin: 02/09/18 10:48 Dose: 40 mg Sodium Bicarbonate (Sodium Bicarbonate Tab) 650 mg PO TID [facility] Last Admin: 02/09/18 17:33 Dose: 650 mg Tamsulosin HCl (Flomax) 0.4 mg PO DAILY [facility] Last Admin: 02/09/18 10:48 Dose: 0.4 mg - Labs Labs: 02/09/18 06:29 02/09/18 06:29 PT 14.1 SECONDS (9.7-12.2) H 01/31/18 08:01 INR 1.3 01/31/18 08:01 APTT 30 SECONDS (21-34) 01/13/18 17:42 - Constitutional Appears: Non-toxic, No Acute Distress - Head Exam Head Exam: NORMAL INSPECTION - Eye Exam Eye Exam: Periorbital tenderness - ENT Exam ENT Exam: Mucous Membranes Moist, Normal Exam - Neck Exam Neck Exam: Normal Inspection - Respiratory Exam Respiratory Exam: Decreased Breath Sounds - Cardiovascular Exam Cardiovascular Exam: +S1, +S2 - GI/Abdominal Exam GI & Abdominal Exam: Diminished Bowel Sounds - Rectal Exam Rectal Exam: Deferred Assessment and Plan (1) JOY (acute kidney injury) Status: Acute (2) Change in mental status Status: Acute (3) Electrolyte imbalance Status: Acute (4) MRSA (methicillin resistant Staphylococcus aureus) septicemia Status: Acute (5) NSTEMI (non-ST elevated myocardial infarction) Status: Acute (6) Prophylactic measure Status: Acute (7) UTI (urinary tract infection) Status: Acute (8) CHF (congestive heart failure) Status: Chronic (9) CKD (chronic kidney disease) Status: Chronic (10) Diabetes mellitus Status: Chronic (11) Afib Status: Acute (12) Anemia Status: Acute (13) Bilateral hydronephrosis Status: Acute (14) CKD (chronic kidney disease) stage 4, GFR 15-29 ml/min Status: Acute (15) Metabolic acidosis Status: Acute (16) Dementia Status: Chronic - Assessment and Plan (Free Text) Plan: Patient hemodynamically stable Labs and meds reviewed Hemoglobin 7.7 BUN creatinine high Antibiotics Accu-Cheks Repeat blood culture no growth till date DVT/GI prophylaxis Close monitoring
[2018-02-09] MEDS ORDERED: Telavancin Hydrochloride 750 MG in Dextrose 5% In Water 100 ML IVPB SCH (20:30)
--- NOTE | 2018-02-09 21:10 | CP.PCM.PN ---
Subjective - Date & Time of Evaluation Date of Evaluation: 02/09/18 Time of Evaluation: 13:15 - Subjective Subjective: dictated Objective - Vital Signs/Intake and Output Vital Signs (last 24 hours): Temp Pulse Resp BP Pulse Ox 97.8 F 105 H 20 105/66 96 02/09/18 15:00 02/09/18 15:00 02/09/18 15:00 02/09/18 15:00 02/09/18 15:00 Intake and Output: 02/09/18 02/10/18 18:59 06:59 Output Total 750 Balance -750 - Medications Medications: Current Medications Acetaminophen (Tylenol 325mg Tab) 650 mg PO Q6 PRN PRN Reason: Fever >100.4 F Last Admin: 01/27/18 03:58 Dose: 650 mg Aspirin (Aspirin Chewable) 81 mg PO DAILY [facility] Last Admin: 02/09/18 10:48 Dose: 81 mg Daptomycin 400 mg/ Sodium (Chloride) 100 mls @ 100 mls/hr IV Q24H [facility]; Protocol Stop: 02/14/18 17:01 Last Admin: 02/09/18 16:58 Dose: 100 mls/hr Telavancin 750 mg/ Dextrose 100 mls @ 100 mls/hr IVPB Q24H [facility]; Protocol Last Admin: 02/09/18 19:47 Dose: 100 mls/hr Insulin Aspart (Novolog) 0 unit SC Q6 [facility]; Protocol Last Admin: 02/09/18 17:34 Dose: 2 units Insulin Detemir (Levemir) 10 unit SC HS [facility] Last Admin: 02/08/18 21:29 Dose: 10 units Losartan Potassium (Cozaar) 25 mg PO DAILY [facility] Last Admin: 02/09/18 10:48 Dose: 25 mg Metoprolol Succinate (Toprol Xl) 12.5 mg PO DAILY [facility] Last Admin: 02/09/18 10:48 Dose: 12.5 mg Pantoprazole Sodium (Protonix Susp) 40 mg PO DAILY [facility] Last Admin: 02/09/18 10:48 Dose: 40 mg Sodium Bicarbonate (Sodium Bicarbonate Tab) 650 mg PO TID [facility] Last Admin: 02/09/18 17:33 Dose: 650 mg Tamsulosin HCl (Flomax) 0.4 mg PO DAILY [facility] Last Admin: 02/09/18 10:48 Dose: 0.4 mg - Labs Labs: 02/09/18 06:29 02/09/18 06:29 PT 14.1 SECONDS (9.7-12.2) H 01/31/18 08:01 INR 1.3 01/31/18 08:01 APTT 30 SECONDS (21-34) 01/13/18 17:42
[2018-02-09] MEDS: Insulin Detemir 100 units/ml Vial (Levemir) SC SCH (21:20)
[2018-02-10] MEDS: (Novolog) Insulin Aspart, Recombinant 100 u/ml 10 ml vial SC SCH ×4 (00:25→18:03)
--- NOTE | 2018-02-10 02:17 | PN ---
DATE: 02/09/2018 SUBJECTIVE: The patient was kind of awake but he did not want to communicate. He was not even watching TV even though the TV was on and it is seems he lives in his own world. PHYSICAL EXAMINATION: VITAL SIGNS: He remains afebrile. HEENT: He is atraumatic. NECK: Supple. LUNGS: Clear. HEART: S1, S2 are regular. ABDOMEN: Soft. Has a colostomy bag. EXTREMITIES: Remain without any edema, wears a diaper. LABORATORY DATA: White count is 7.7, hemoglobin 7.7, hematocrit 23.1, platelet count is 389, BUN is 67 and creatinine is 3.9. ASSESSMENT AND PLAN: Finally, his cultures are negative and he is getting antibiotics and plan is to give to 6 weeks of this treatment . So it seems like I may have to cutdown these medicines make them every 48 hours as his creatinine is increasing, so we will do so as otherwise he will end up on dialysis. We will follow. Teresa Barnett MD
[2018-02-10] MEDS ORDERED: WATER IVPB SCH (10:00)
[2018-02-10] MEDS ORDERED: DEXTROSE 5% IVPB SCH (10:00)
[2018-02-10] MEDS ORDERED: TELAVANCIN HYDROCHLORIDE IVPB SCH (10:00)
[2018-02-10 10:57] LABS: MEAN CELL VOLUME 85.8 fL (80.0-94.0); MEAN CORPUSCULAR HEMOGLOBIN 28.8 pg (27.0-31.0); MEAN CORPUSCULAR HGB CONC 33.6 g/dL (33.0-37.0); MEAN PLATELET VOLUME 7.1 fL (7.2-11.7); RBC 3.46 Mil/uL (4.40-5.90); RED CELL DISTRIBUTION WIDTH 16.3 % (11.5-14.5)
[2018-02-10 11:00] LABS: HEMOGLOBIN 9.9 g/dL (12.0-18.0)
[2018-02-10] MEDS: Pantoprazole 40 mg Susp UD PO SCH (11:00)
[2018-02-10] MEDS: Metoprolol Succinate 12.5 mg XL Tab PO SCH (11:00)
[2018-02-10 11:22] LABS: ALB/GLOB RATIO 0.7 (1.0-2.1); ALBUMIN 3.8 g/dL (3.5-5.0)
[2018-02-10] MEDS ORDERED: Sod Polystyrene Sulf 15 gm/60 ml Susp PO ONE (14:22)
[2018-02-10] MEDS: Sodium Chloride 0.9% 1,000 ML IV SCH (14:37)
--- NOTE | 2018-02-10 16:14 | CP.PCM.PN ---
Subjective - Date & Time of Evaluation Date of Evaluation: 02/10/18 Time of Evaluation: 08:15 - Subjective Subjective: clinically same Objective - Vital Signs/Intake and Output Vital Signs (last 24 hours): Temp Pulse Resp BP Pulse Ox 97.8 F 100 H 20 113/66 95 02/10/18 08:17 02/10/18 10:50 02/10/18 08:17 02/10/18 10:50 02/10/18 08:17 Intake and Output: 02/10/18 02/10/18 06:59 18:59 Intake Total 375 335 Output Total 600 Balance -225 335 - Medications Medications: Current Medications Acetaminophen (Tylenol 325mg Tab) 650 mg PO Q6 PRN PRN Reason: Fever >100.4 F Last Admin: 01/27/18 03:58 Dose: 650 mg Aspirin (Aspirin Chewable) 81 mg PO DAILY [facility] Last Admin: 02/10/18 11:00 Dose: 81 mg Telavancin 500 mg/ Dextrose 100 mls @ 100 mls/hr IVPB [facility]; Protocol Last Admin: 02/10/18 11:00 Dose: 100 mls/hr Daptomycin 400 mg/ Sodium (Chloride) 100 mls @ 100 mls/hr IV [facility]WF [facility]; Protocol Stop: 02/16/18 09:01 Sodium Chloride (Sodium Chloride 0.9%) 1,000 mls @ 70 mls/hr IV .[id number] [facility] Last Admin: 02/10/18 14:37 Dose: 70 mls/hr Insulin Aspart (Novolog) 0 unit SC Q6 [facility]; Protocol Last Admin: 02/10/18 12:22 Dose: Not Given Insulin Detemir (Levemir) 10 unit SC HS [facility] Last Admin: 02/09/18 21:20 Dose: 10 units Losartan Potassium (Cozaar) 25 mg PO DAILY [facility] Last Admin: 02/10/18 11:00 Dose: 25 mg Metoprolol Succinate (Toprol Xl) 12.5 mg PO DAILY [facility] Last Admin: 02/10/18 11:00 Dose: 12.5 mg Pantoprazole Sodium (Protonix Susp) 40 mg PO DAILY [facility] Last Admin: 02/10/18 11:00 Dose: 40 mg Sodium Bicarbonate (Sodium Bicarbonate Tab) 650 mg PO TID [facility] Last Admin: 02/10/18 13:09 Dose: 650 mg Tamsulosin HCl (Flomax) 0.4 mg PO DAILY [facility] Last Admin: 02/10/18 11:00 Dose: 0.4 mg - Labs Labs: 02/10/18 10:52 02/10/18 10:52 PT 14.1 SECONDS (9.7-12.2) H 01/31/18 08:01 INR 1.3 01/31/18 08:01 APTT 30 SECONDS (21-34) 01/13/18 17:42 - Constitutional Appears: Well - Head Exam Head Exam: ATRAUMATIC, NORMAL INSPECTION, NORMOCEPHALIC - Eye Exam Eye Exam: EOMI, Normal appearance, PERRL Pupil Exam: NORMAL ACCOMODATION, PERRL - ENT Exam ENT Exam: Mucous Membranes Moist, Normal Exam - Neck Exam Neck Exam: Full ROM, Normal Inspection. absent: Lymphadenopathy - Respiratory Exam Respiratory Exam: Decreased Breath Sounds - Cardiovascular Exam Cardiovascular Exam: REGULAR RHYTHM, +S1, +S2 - GI/Abdominal Exam GI & Abdominal Exam: Soft, Diminished Bowel Sounds - Rectal Exam Rectal Exam: Deferred Assessment and Plan (1) JOY (acute kidney injury) Status: Acute (2) Change in mental status Status: Acute (3) Electrolyte imbalance Status: Acute (4) MRSA (methicillin resistant Staphylococcus aureus) septicemia Status: Acute (5) NSTEMI (non-ST elevated myocardial infarction) Status: Acute (6) Prophylactic measure Status: Acute (7) UTI (urinary tract infection) Status: Acute (8) CHF (congestive heart failure) Status: Chronic (9) CKD (chronic kidney disease) Status: Chronic (10) Diabetes mellitus Status: Chronic (11) Afib Status: Acute (12) Anemia Status: Acute (13) Bilateral hydronephrosis Status: Acute (14) CKD (chronic kidney disease) stage 4, GFR 15-29 ml/min Status: Acute (15) Metabolic acidosis Status: Acute (16) Dementia Status: Chronic - Assessment and Plan (Free Text) Plan: Patient seen and examined at bedside Discussed with staff Charts reviewed Continue current medicines Daptomycin Telavancin Repeat blood culture shows no growth till date Monitor CBC Monitor CMP
--- NOTE | 2018-02-10 17:45 | CP.PCM.PN ---
Subjective - Date & Time of Evaluation Date of Evaluation: 02/10/18 Time of Evaluation: 15:30 - Subjective Subjective: dictated Objective - Vital Signs/Intake and Output Vital Signs (last 24 hours): Temp Pulse Resp BP Pulse Ox 98.2 F 110 H 20 124/71 95 02/10/18 15:00 02/10/18 15:00 02/10/18 15:00 02/10/18 15:00 02/10/18 15:00 Intake and Output: 02/10/18 02/10/18 06:59 18:59 Intake Total 375 335 Output Total 600 Balance -225 335 - Medications Medications: Current Medications Acetaminophen (Tylenol 325mg Tab) 650 mg PO Q6 PRN PRN Reason: Fever >100.4 F Last Admin: 01/27/18 03:58 Dose: 650 mg Aspirin (Aspirin Chewable) 81 mg PO DAILY [facility] Last Admin: 02/10/18 11:00 Dose: 81 mg Telavancin 500 mg/ Dextrose 100 mls @ 100 mls/hr IVPB TTS [facility]; Protocol Last Admin: 02/10/18 11:00 Dose: 100 mls/hr Daptomycin 400 mg/ Sodium (Chloride) 100 mls @ 100 mls/hr IV MWF [facility]; Protocol Stop: 02/16/18 09:01 Sodium Chloride (Sodium Chloride 0.9%) 1,000 mls @ 70 mls/hr IV .[id number] [facility] Last Admin: 02/10/18 14:37 Dose: 70 mls/hr Insulin Aspart (Novolog) 0 unit SC Q6 [facility]; Protocol Last Admin: 02/10/18 12:22 Dose: Not Given Insulin Detemir (Levemir) 10 unit SC HS [facility] Last Admin: 02/09/18 21:20 Dose: 10 units Losartan Potassium (Cozaar) 25 mg PO DAILY [facility] Last Admin: 02/10/18 11:00 Dose: 25 mg Metoprolol Succinate (Toprol Xl) 12.5 mg PO DAILY [facility] Last Admin: 02/10/18 11:00 Dose: 12.5 mg Pantoprazole Sodium (Protonix Susp) 40 mg PO DAILY [facility] Last Admin: 02/10/18 11:00 Dose: 40 mg Sodium Bicarbonate (Sodium Bicarbonate Tab) 650 mg PO TID [facility] Last Admin: 02/10/18 17:21 Dose: 650 mg Tamsulosin HCl (Flomax) 0.4 mg PO DAILY [facility] Last Admin: 02/10/18 11:00 Dose: 0.4 mg - Labs Labs: 02/10/18 10:52 02/10/18 10:52 PT 14.1 SECONDS (9.7-12.2) H 01/31/18 08:01 INR 1.3 01/31/18 08:01 APTT 30 SECONDS (21-34) 01/13/18 17:42
[2018-02-10] MEDS: Insulin Detemir 100 units/ml Vial (Levemir) SC SCH (21:22)
--- NOTE | 2018-02-10 22:36 | PN ---
DATE: 02/10/2018 SUBJECTIVE: The patient, Bravo Sánchez, was seen today. He remains afebrile. He remains confused and does not communicate. PHYSICAL EXAMINATION: HEENT: Head is atraumatic. NECK: Supple. LUNGS: Clear. HEART: Remains tachycardic. ABDOMEN: Soft. Colostomy bag present. EXTREMITIES: Have no edema. He does have some scabs over the old wounds. LABORATORY DATA: White count today is 11, hemoglobin is 9.9, hematocrit 29.6, platelet count is 476, so his white count is increasing. Sodium is 149, potassium is 5.7. He remains dry. Creatinine is 4.7, BUN is 76, could be related to dehydration as well as to medications. His total protein is 9.1. ASSESSMENT AND PLAN: I think we have done a human immunodeficiency virus test on him. I would just want to make sure that he remains dehydrated. We will add intravenous fluids. I have changed the antibiotics to alternate days for now and may have to discontinue telavancin if the creatinine increases further. We will follow. Also, I would want to do another human immunodeficiency virus test tomorrow. He is on intravenous fluids at this time and also on Kayexalate. Teresa Barnett MD
[2018-02-11] MEDS: (Novolog) Insulin Aspart, Recombinant 100 u/ml 10 ml vial SC SCH ×4 (00:55→17:15)
[2018-02-11] MEDS: Sodium Chloride 0.9% 1,000 ML IV SCH (04:27)
[2018-02-11 06:35] LABS: BASO # 0.1 K/uL (0.0-0.2); BASO % 0.8 % (0.0-2.0); EOS # 0.2 K/uL (0.0-0.7); LYMPH % 11.7 % (20.0-40.0); MEAN CELL VOLUME 87.2 fL (80.0-94.0); MEAN CORPUSCULAR HEMOGLOBIN 28.5 pg (27.0-31.0); MEAN CORPUSCULAR HGB CONC 32.7 g/dL (33.0-37.0); MEAN PLATELET VOLUME 7.4 fL (7.2-11.7); MONO # 0.6 K/uL (0.0-0.8); MONO % 7.1 % (0.0-10.0); NEUT # 6.8 K/uL (1.8-7.0); NEUT % 78.4 % (50.0-75.0); RBC 3.15 Mil/uL (4.40-5.90); RED CELL DISTRIBUTION WIDTH 16.7 % (11.5-14.5); WHITE BLOOD COUNT 8.7 K/uL (4.8-10.8)
[2018-02-11 06:48] LABS: ALB/GLOB RATIO 0.8 (1.0-2.1); ALBUMIN 3.6 g/dL (3.5-5.0); CALCIUM 10.4 mg/dl (8.6-10.4)
[2018-02-11] MEDS: Sodium Chloride 0.45% 1,000 ML IV SCH ×2 (08:41→21:59)
[2018-02-11] MEDS ORDERED: Sod Polystyrene Sulf 15 gm/60 ml Susp PO ONE (08:57)
[2018-02-11] MEDS: Pantoprazole 40 mg Susp UD PO SCH (09:15)
[2018-02-11] MEDS: Metoprolol Succinate 12.5 mg XL Tab PO SCH (09:16)
--- NOTE | 2018-02-11 10:40 | CP.PCM.PN ---
Subjective - Date & Time of Evaluation Date of Evaluation: 02/11/18 Time of Evaluation: 08:30 - Subjective Subjective: clinically same Objective - Vital Signs/Intake and Output Vital Signs (last 24 hours): Temp Pulse Resp BP Pulse Ox 97.7 F 98 H 18 146/78 96 02/11/18 08:10 02/11/18 09:14 02/11/18 08:10 02/11/18 09:14 02/11/18 08:10 Intake and Output: 02/11/18 02/11/18 06:59 18:59 Intake Total 300 120 Output Total 500 300 Balance -200 -180 - Medications Medications: Current Medications Acetaminophen (Tylenol 325mg Tab) 650 mg PO Q6 PRN PRN Reason: Fever >100.4 F Last Admin: 01/27/18 03:58 Dose: 650 mg Aspirin (Aspirin Chewable) 81 mg PO DAILY [facility] Last Admin: 02/11/18 09:16 Dose: 81 mg Telavancin 500 mg/ Dextrose 100 mls @ 100 mls/hr IVPB TTS [facility]; Protocol Last Admin: 02/10/18 11:00 Dose: 100 mls/hr Daptomycin 400 mg/ Sodium (Chloride) 100 mls @ 100 mls/hr IV MWF [facility]; Protocol Stop: 02/16/18 09:01 Last Admin: 02/11/18 08:22 Dose: 100 mls/hr Sodium Chloride (Sodium Chloride 0.45%) 1,000 mls @ 70 mls/hr IV .[id number] [facility] Last Admin: 02/11/18 08:41 Dose: 70 mls/hr Insulin Aspart (Novolog) 0 unit SC Q6 [facility]; Protocol Last Admin: 02/11/18 06:45 Dose: Not Given Insulin Detemir (Levemir) 10 unit SC HS [facility] Last Admin: 02/10/18 21:22 Dose: 10 units Losartan Potassium (Cozaar) 25 mg PO DAILY [facility] Last Admin: 02/11/18 09:16 Dose: 25 mg Metoprolol Succinate (Toprol Xl) 12.5 mg PO DAILY [facility] Last Admin: 02/11/18 09:16 Dose: 12.5 mg Pantoprazole Sodium (Protonix Susp) 40 mg PO DAILY [facility] Last Admin: 02/11/18 09:15 Dose: 40 mg Sodium Bicarbonate (Sodium Bicarbonate Tab) 650 mg PO TID [facility] Last Admin: 02/11/18 09:16 Dose: 650 mg Tamsulosin HCl (Flomax) 0.4 mg PO DAILY [facility] Last Admin: 02/11/18 09:16 Dose: 0.4 mg - Labs Labs: 02/11/18 06:15 02/11/18 06:15 PT 14.1 SECONDS (9.7-12.2) H 01/31/18 08:01 INR 1.3 01/31/18 08:01 APTT 30 SECONDS (21-34) 01/13/18 17:42 - Constitutional Appears: Well - Head Exam Head Exam: ATRAUMATIC, NORMAL INSPECTION, NORMOCEPHALIC - Eye Exam Eye Exam: EOMI, Normal appearance, PERRL Pupil Exam: NORMAL ACCOMODATION, PERRL - ENT Exam ENT Exam: Mucous Membranes Moist, Normal Exam - Neck Exam Neck Exam: Full ROM, Normal Inspection. absent: Lymphadenopathy - Respiratory Exam Respiratory Exam: Decreased Breath Sounds - Cardiovascular Exam Cardiovascular Exam: REGULAR RHYTHM, +S1, +S2 - GI/Abdominal Exam GI & Abdominal Exam: Soft, Diminished Bowel Sounds - Rectal Exam Rectal Exam: Deferred Assessment and Plan (1) JOY (acute kidney injury) Status: Acute (2) Change in mental status Status: Acute (3) Electrolyte imbalance Status: Acute (4) MRSA (methicillin resistant Staphylococcus aureus) septicemia Status: Acute (5) NSTEMI (non-ST elevated myocardial infarction) Status: Acute (6) Prophylactic measure Status: Acute (7) UTI (urinary tract infection) Status: Acute (8) CHF (congestive heart failure) Status: Chronic (9) CKD (chronic kidney disease) Status: Chronic (10) Diabetes mellitus Status: Chronic (11) Afib Status: Acute (12) Anemia Status: Acute (13) Bilateral hydronephrosis Status: Acute (14) CKD (chronic kidney disease) stage 4, GFR 15-29 ml/min Status: Acute (15) Metabolic acidosis Status: Acute (16) Dementia Status: Chronic - Assessment and Plan (Free Text) Plan: Patient seen and examined at bedside Discussed with staff Charts reviewed Create worsening 4.7 Overnight events noted Meds as advised Blood pressure control Tight glycemic control Continue same Monitor CMP
--- NOTE | 2018-02-11 19:36 | CP.PCM.PN ---
Subjective - Date & Time of Evaluation Date of Evaluation: 02/11/18 Time of Evaluation: 13:00 - Subjective Subjective: dictated Objective - Vital Signs/Intake and Output Vital Signs (last 24 hours): Temp Pulse Resp BP Pulse Ox 98.4 F 104 H 20 119/60 96 02/11/18 16:00 02/11/18 16:00 02/11/18 16:00 02/11/18 16:00 02/11/18 16:00 Intake and Output: 02/11/18 02/12/18 18:59 06:59 Intake Total 120 Output Total 300 Balance -180 - Medications Medications: Current Medications Acetaminophen (Tylenol 325mg Tab) 650 mg PO Q6 PRN PRN Reason: Fever >100.4 F Last Admin: 01/27/18 03:58 Dose: 650 mg Aspirin (Aspirin Chewable) 81 mg PO DAILY [facility] Last Admin: 02/11/18 09:16 Dose: 81 mg Telavancin 500 mg/ Dextrose 100 mls @ 100 mls/hr IVPB TTS [facility]; Protocol Last Admin: 02/10/18 11:00 Dose: 100 mls/hr Daptomycin 400 mg/ Sodium (Chloride) 100 mls @ 100 mls/hr IV MWF [facility]; Protocol Stop: 02/16/18 09:01 Last Admin: 02/11/18 08:22 Dose: 100 mls/hr Sodium Chloride (Sodium Chloride 0.45%) 1,000 mls @ 70 mls/hr IV .[id number] [facility] Last Admin: 02/11/18 08:41 Dose: 70 mls/hr Influenza Virus Vaccine (Fluzone Quad [id number]) 60 mcg IM .ONCE ONE Stop: 02/13/18 10:01 Insulin Aspart (Novolog) 0 unit SC Q6 [facility]; Protocol Last Admin: 02/11/18 17:15 Dose: Not Given Insulin Detemir (Levemir) 10 unit SC HS [facility] Last Admin: 02/10/18 21:22 Dose: 10 units Losartan Potassium (Cozaar) 25 mg PO DAILY [facility] Last Admin: 02/11/18 09:16 Dose: 25 mg Metoprolol Succinate (Toprol Xl) 12.5 mg PO DAILY [facility] Last Admin: 02/11/18 09:16 Dose: 12.5 mg Pantoprazole Sodium (Protonix Susp) 40 mg PO DAILY [facility] Last Admin: 02/11/18 09:15 Dose: 40 mg Sodium Bicarbonate (Sodium Bicarbonate Tab) 650 mg PO TID [facility] Last Admin: 02/11/18 17:11 Dose: 650 mg Tamsulosin HCl (Flomax) 0.4 mg PO DAILY [facility] Last Admin: 02/11/18 09:16 Dose: 0.4 mg - Labs Labs: 02/11/18 06:15 02/11/18 06:15 PT 14.1 SECONDS (9.7-12.2) H 01/31/18 08:01 INR 1.3 01/31/18 08:01 APTT 30 SECONDS (21-34) 01/13/18 17:42
[2018-02-11] MEDS: Insulin Detemir 100 units/ml Vial (Levemir) SC SCH (21:58)
[2018-02-12] MEDS: (Novolog) Insulin Aspart, Recombinant 100 u/ml 10 ml vial SC SCH ×4 (00:14→17:39)
[2018-02-12] MEDS: Pantoprazole 40 mg Susp UD PO SCH (09:32)
[2018-02-12] MEDS: Metoprolol Succinate 12.5 mg XL Tab PO SCH (09:34)
--- NOTE | 2018-02-12 10:35 | CP.PCM.PN ---
Subjective - Date & Time of Evaluation Date of Evaluation: 02/12/18 Time of Evaluation: 08:15 - Subjective Subjective: clinically same Objective - Vital Signs/Intake and Output Vital Signs (last 24 hours): Temp Pulse Resp BP Pulse Ox 98.4 F 77 20 97/71 L 97 02/12/18 07:20 02/12/18 07:20 02/12/18 07:20 02/12/18 07:20 02/12/18 07:20 Intake and Output: 02/12/18 02/12/18 06:59 18:59 Intake Total 560 Balance 560 - Medications Medications: Current Medications Acetaminophen (Tylenol 325mg Tab) 650 mg PO Q6 PRN PRN Reason: Fever >100.4 F Last Admin: 01/27/18 03:58 Dose: 650 mg Aspirin (Aspirin Chewable) 81 mg PO DAILY [facility] Last Admin: 02/12/18 09:32 Dose: 81 mg Daptomycin 400 mg/ Sodium (Chloride) 100 mls @ 100 mls/hr IV MWF [facility]; Protocol Stop: 02/16/18 09:01 Last Admin: 02/11/18 08:22 Dose: 100 mls/hr Sodium Chloride (Sodium Chloride 0.45%) 1,000 mls @ 70 mls/hr IV .[id number] [facility] Last Admin: 02/11/18 21:59 Dose: 70 mls/hr Influenza Virus Vaccine (Fluzone Quad [id number]) 60 mcg IM .ONCE ONE Stop: 02/13/18 10:01 Insulin Aspart (Novolog) 0 unit SC Q6 [facility]; Protocol Last Admin: 02/12/18 06:08 Dose: 2 units Insulin Detemir (Levemir) 10 unit SC HS [facility] Last Admin: 02/11/18 21:58 Dose: 10 units Losartan Potassium (Cozaar) 25 mg PO DAILY [facility] Last Admin: 02/12/18 09:32 Dose: Not Given Metoprolol Succinate (Toprol Xl) 12.5 mg PO DAILY [facility] Last Admin: 02/12/18 09:34 Dose: 12.5 mg Pantoprazole Sodium (Protonix Susp) 40 mg PO DAILY [facility] Last Admin: 02/12/18 09:32 Dose: 40 mg Sodium Bicarbonate (Sodium Bicarbonate Tab) 650 mg PO TID [facility] Last Admin: 02/12/18 09:32 Dose: 650 mg Tamsulosin HCl (Flomax) 0.4 mg PO DAILY [facility] Last Admin: 02/12/18 09:32 Dose: 0.4 mg - Labs Labs: 02/11/18 06:15 02/11/18 06:15 PT 14.1 SECONDS (9.7-12.2) H 01/31/18 08:01 INR 1.3 01/31/18 08:01 APTT 30 SECONDS (21-34) 01/13/18 17:42 - Constitutional Appears: Well - Head Exam Head Exam: ATRAUMATIC, NORMAL INSPECTION, NORMOCEPHALIC - Eye Exam Eye Exam: EOMI, Normal appearance, PERRL Pupil Exam: NORMAL ACCOMODATION, PERRL - ENT Exam ENT Exam: Mucous Membranes Moist, Normal Exam - Neck Exam Neck Exam: Full ROM, Normal Inspection. absent: Lymphadenopathy - Respiratory Exam Respiratory Exam: Decreased Breath Sounds - Cardiovascular Exam Cardiovascular Exam: REGULAR RHYTHM, +S1, +S2 - GI/Abdominal Exam GI & Abdominal Exam: Soft, Diminished Bowel Sounds - Rectal Exam Rectal Exam: Deferred Assessment and Plan (1) JOY (acute kidney injury) Status: Acute (2) Change in mental status Status: Acute (3) Electrolyte imbalance Status: Acute (4) MRSA (methicillin resistant Staphylococcus aureus) septicemia Status: Acute (5) NSTEMI (non-ST elevated myocardial infarction) Status: Acute (6) Prophylactic measure Status: Acute (7) UTI (urinary tract infection) Status: Acute (8) CHF (congestive heart failure) Status: Chronic (9) CKD (chronic kidney disease) Status: Chronic (10) Diabetes mellitus Status: Chronic (11) Afib Status: Acute (12) Anemia Status: Acute (13) Bilateral hydronephrosis Status: Acute (14) CKD (chronic kidney disease) stage 4, GFR 15-29 ml/min Status: Acute (15) Metabolic acidosis Status: Acute (16) Dementia Status: Chronic - Assessment and Plan (Free Text) Plan: Patient hemodynamically stable Labs and meds reviewed Overnight events noted Accu-Cheks Blood pressure monitoring Antibiotics as per ID DVT prophylaxis GI prophylaxis PT/OT
[2018-02-12 12:22] LABS: ALB/GLOB RATIO 0.7 (1.0-2.1); ALBUMIN 3.4 g/dL (3.5-5.0); CALCIUM 10.3 mg/dl (8.6-10.4)
[2018-02-12 12:35] LABS: BASO % 0.3 % (0.0-2.0); EOS # 0.1 K/uL (0.0-0.7); HEMOGLOBIN 9.7 g/dL (12.0-18.0); LYMPH # 1.1 K/uL (1.0-4.3); LYMPH % 14.9 % (20.0-40.0); MEAN CELL VOLUME 87.3 fL (80.0-94.0); MEAN CORPUSCULAR HEMOGLOBIN 28.7 pg (27.0-31.0); MEAN CORPUSCULAR HGB CONC 32.8 g/dL (33.0-37.0); MEAN PLATELET VOLUME 8.7 fL (7.2-11.7); MONO # 0.3 K/uL (0.0-0.8); MONO % 3.5 % (0.0-10.0); NEUT # 5.6 K/uL (1.8-7.0); NEUT % 79.3 % (50.0-75.0); NRBC % 0.2 % (0.0-2.0); RBC 3.37 Mil/uL (4.40-5.90); RED CELL DISTRIBUTION WIDTH 16.9 % (11.5-14.5); WHITE BLOOD COUNT 7.1 K/uL (4.8-10.8)
[2018-02-12] MEDS ORDERED: Sod Polystyrene Sulf 15 gm/60 ml Susp PO ONE ×2 (13:19→18:00)
[2018-02-12] MEDS: Sodium Chloride 0.45% 1,000 ML IV SCH (13:33)
[2018-02-12] MEDS: Insulin Detemir 100 units/ml Vial (Levemir) SC SCH (22:08)
[2018-02-13] MEDS: (Novolog) Insulin Aspart, Recombinant 100 u/ml 10 ml vial SC SCH ×4 (00:10→17:28)
[2018-02-13] MEDS: Sodium Chloride 0.45% 1,000 ML IV SCH ×3 (03:25→21:17)
--- NOTE | 2018-02-13 09:53 | CP.PCM.PN ---
Subjective - Date & Time of Evaluation Date of Evaluation: 02/13/18 Time of Evaluation: 09:53 Objective - Vital Signs/Intake and Output Vital Signs (last 24 hours): Temp Pulse Resp BP Pulse Ox 98.9 F 69 20 100/70 96 02/13/18 07:47 02/13/18 07:47 02/13/18 07:47 02/13/18 07:47 02/13/18 07:47 Intake and Output: 02/13/18 02/13/18 06:59 18:59 Output Total 200 Balance -200 - Medications Medications: Current Medications Acetaminophen (Tylenol 325mg Tab) 650 mg PO Q6 PRN PRN Reason: Fever >100.4 F Last Admin: 01/27/18 03:58 Dose: 650 mg Aspirin (Aspirin Chewable) 81 mg PO DAILY [facility] Last Admin: 02/12/18 09:32 Dose: 81 mg Daptomycin 400 mg/ Sodium (Chloride) 100 mls @ 100 mls/hr IV MWF [facility]; Protocol Stop: 02/16/18 09:01 Last Admin: 02/11/18 08:22 Dose: 100 mls/hr Sodium Chloride (Sodium Chloride 0.45%) 1,000 mls @ 70 mls/hr IV .[id number] [facility] Last Admin: 02/13/18 05:43 Dose: 70 mls/hr Influenza Virus Vaccine (Fluzone Quad [id number]) 60 mcg IM .ONCE ONE Stop: 02/13/18 10:01 Insulin Aspart (Novolog) 0 unit SC Q6 [facility]; Protocol Last Admin: 02/13/18 06:51 Dose: Not Given Insulin Detemir (Levemir) 10 unit SC HS [facility] Last Admin: 02/12/18 22:08 Dose: 10 units Losartan Potassium (Cozaar) 25 mg PO DAILY [facility] Last Admin: 02/12/18 09:32 Dose: Not Given Metoprolol Succinate (Toprol Xl) 12.5 mg PO DAILY [facility] Last Admin: 02/12/18 09:34 Dose: 12.5 mg Pantoprazole Sodium (Protonix Susp) 40 mg PO DAILY [facility] Last Admin: 02/12/18 09:32 Dose: 40 mg Sodium Bicarbonate (Sodium Bicarbonate Tab) 650 mg PO TID [facility] Last Admin: 02/12/18 17:38 Dose: 650 mg Tamsulosin HCl (Flomax) 0.4 mg PO DAILY [facility] Last Admin: 02/12/18 09:32 Dose: 0.4 mg - Labs Labs: 02/12/18 11:50 02/12/18 11:50 PT 14.1 SECONDS (9.7-12.2) H 01/31/18 08:01 INR 1.3 01/31/18 08:01 APTT 30 SECONDS (21-34) 01/13/18 17:42
[2018-02-13] MEDS ORDERED: Influenza Vaccine 60 MCG/0.5 ML SYR (3 yr & up) IM ONE (10:00)
[2018-02-13] MEDS: Pantoprazole 40 mg Susp UD PO SCH (10:11)
[2018-02-13] MEDS: Metoprolol Succinate 12.5 mg XL Tab PO SCH (10:12)
[2018-02-13] MEDS: Insulin Detemir 100 units/ml Vial (Levemir) SC SCH (21:58)
[2018-02-14] MEDS: (Novolog) Insulin Aspart, Recombinant 100 u/ml 10 ml vial SC SCH ×4 (00:20→17:30)
--- NOTE | 2018-02-14 07:41 | PN ---
DATE: 02/11/2018 SUBJECTIVE: The patient remains afebrile but his kidney functions are deteriorating. He has been started on IV fluids. He is with altered mental status, confused and does not talk much, he has psych issues. PHYSICAL EXAMINATION: VITAL SIGNS: His T max is 104, blood pressure 119/60, respirations are 20. Stable, otherwise. LUNGS: Clear. HEART: S1, S2 are regular. ABDOMEN: Soft. Nontender. No guarding. No rigidity present. He has A colostomy and he wears a diaper. EXTREMITIES: Have no edema. ASSESSMENT AND PLAN: Since his cultures are now negative, I am going to take away the telavancin , but right now since his kidney functions have worsened, we will discontinue it and continue with the Cubicin every other day and we will follow. The patient had methicillin-resistant Staphylococcus aureus, septicemia with urinary tract infection and cystitis which was persistent, probably deep-seated infection . The patient will be continued on Cubicin every other day and also needs hydration for now for kidney functions to improve and we gave him Kayexalate yesterday, but potassium is still high and sodium is still high. So, he needs to be followed up for his kidney function. Teresa Barnett MD
[2018-02-14] MEDS: Sodium Chloride 0.45% 1,000 ML IV SCH ×2 (08:00→10:00)
[2018-02-14] MEDS: Pantoprazole 40 mg Susp UD PO SCH (09:58)
[2018-02-14] MEDS: Metoprolol Succinate 12.5 mg XL Tab PO SCH (10:00)
[2018-02-14 11:52] LABS: BASO # 0.1 K/uL (0.0-0.2); BASO % 0.8 % (0.0-2.0); EOS # 0.2 K/uL (0.0-0.7); EOS % 2.1 % (0.0-4.0); HEMOGLOBIN 8.9 g/dL (12.0-18.0); LYMPH # 1.3 K/uL (1.0-4.3); MEAN CELL VOLUME 87.5 fL (80.0-94.0); MEAN CORPUSCULAR HGB CONC 33.1 g/dL (33.0-37.0); MEAN PLATELET VOLUME 7.3 fL (7.2-11.7); MONO # 0.6 K/uL (0.0-0.8); MONO % 5.2 % (0.0-10.0); NEUT # 8.8 K/uL (1.8-7.0); NEUT % 79.9 % (50.0-75.0); NRBC % 0.1 % (0.0-2.0); RBC 3.08 Mil/uL (4.40-5.90)
[2018-02-14 12:10] LABS: ALB/GLOB RATIO 0.7 (1.0-2.1); ALBUMIN 3.5 g/dL (3.5-5.0); CALCIUM 10.3 mg/dl (8.6-10.4)
[2018-02-14] MEDS ORDERED: Sod Polystyrene Sulf 15 gm/60 ml Susp PO ONE (13:57)
--- NOTE | 2018-02-14 19:44 | CP.PCM.PN ---
Subjective - Date & Time of Evaluation Date of Evaluation: 02/14/18 Time of Evaluation: 19:44 Objective - Vital Signs/Intake and Output Vital Signs (last 24 hours): Temp Pulse Resp BP Pulse Ox 97.5 F L 131 H 20 100/62 96 02/14/18 16:14 02/14/18 16:14 02/14/18 16:14 02/14/18 16:14 02/14/18 16:14 Intake and Output: 02/14/18 02/15/18 18:59 06:59 Intake Total 420 Balance 420 - Medications Medications: Current Medications Acetaminophen (Tylenol 325mg Tab) 650 mg PO Q6 PRN PRN Reason: Fever >100.4 F Last Admin: 01/27/18 03:58 Dose: 650 mg Aspirin (Aspirin Chewable) 81 mg PO DAILY [facility] Last Admin: 02/14/18 09:58 Dose: 81 mg Daptomycin 400 mg/ Sodium (Chloride) 100 mls @ 100 mls/hr IV MWF [facility]; Protocol Stop: 02/16/18 09:01 Last Admin: 02/14/18 09:58 Dose: 100 mls/hr Insulin Aspart (Novolog) 0 unit SC Q6 [facility]; Protocol Last Admin: 02/14/18 17:30 Dose: Not Given Insulin Detemir (Levemir) 10 unit SC HS [facility] Last Admin: 02/13/18 21:58 Dose: 10 units Losartan Potassium (Cozaar) 25 mg PO DAILY [facility] Last Admin: 02/14/18 09:59 Dose: Not Given Metoprolol Succinate (Toprol Xl) 12.5 mg PO DAILY [facility] Last Admin: 02/14/18 10:00 Dose: Not Given Pantoprazole Sodium (Protonix Susp) 40 mg PO DAILY [facility] Last Admin: 02/14/18 09:58 Dose: 40 mg Tamsulosin HCl (Flomax) 0.4 mg PO DAILY [facility] Last Admin: 02/14/18 09:58 Dose: 0.4 mg - Labs Labs: 02/14/18 11:44 02/14/18 11:44 PT 14.1 SECONDS (9.7-12.2) H 01/31/18 08:01 INR 1.3 01/31/18 08:01 APTT 30 SECONDS (21-34) 01/13/18 17:42
--- NOTE | 2018-02-14 20:54 | CP.PCM.PN ---
Subjective - Date & Time of Evaluation Date of Evaluation: 02/14/18 Time of Evaluation: 16:30 - Subjective Subjective: dictated Objective - Vital Signs/Intake and Output Vital Signs (last 24 hours): Temp Pulse Resp BP Pulse Ox 97.5 F L 131 H 20 100/62 96 02/14/18 16:14 02/14/18 16:14 02/14/18 16:14 02/14/18 16:14 02/14/18 16:14 Intake and Output: 02/14/18 02/15/18 18:59 06:59 Intake Total 420 Balance 420 - Medications Medications: Current Medications Acetaminophen (Tylenol 325mg Tab) 650 mg PO Q6 PRN PRN Reason: Fever >100.4 F Last Admin: 01/27/18 03:58 Dose: 650 mg Aspirin (Aspirin Chewable) 81 mg PO DAILY [facility] Last Admin: 02/14/18 09:58 Dose: 81 mg Daptomycin 400 mg/ Sodium (Chloride) 100 mls @ 100 mls/hr IV MWF [facility]; Protocol Stop: 02/16/18 09:01 Last Admin: 02/14/18 09:58 Dose: 100 mls/hr Insulin Aspart (Novolog) 0 unit SC Q6 [facility]; Protocol Last Admin: 02/14/18 17:30 Dose: Not Given Insulin Detemir (Levemir) 10 unit SC HS [facility] Last Admin: 02/13/18 21:58 Dose: 10 units Losartan Potassium (Cozaar) 25 mg PO DAILY [facility] Last Admin: 02/14/18 09:59 Dose: Not Given Metoprolol Succinate (Toprol Xl) 12.5 mg PO DAILY [facility] Last Admin: 02/14/18 10:00 Dose: Not Given Pantoprazole Sodium (Protonix Susp) 40 mg PO DAILY [facility] Last Admin: 02/14/18 09:58 Dose: 40 mg Tamsulosin HCl (Flomax) 0.4 mg PO DAILY [facility] Last Admin: 02/14/18 09:58 Dose: 0.4 mg - Labs Labs: 02/14/18 11:44 02/14/18 11:44 PT 14.1 SECONDS (9.7-12.2) H 01/31/18 08:01 INR 1.3 01/31/18 08:01 APTT 30 SECONDS (21-34) 01/13/18 17:42
[2018-02-14] MEDS: Insulin Detemir 100 units/ml Vial (Levemir) SC SCH (21:24)
[2018-02-15] MEDS: (Novolog) Insulin Aspart, Recombinant 100 u/ml 10 ml vial SC SCH ×4 (00:37→19:21)
--- NOTE | 2018-02-15 01:13 | PN ---
DATE: 02/14/2018 SUBJECTIVE: The patient appears alert, awake, but he does not communicate. He is with mental issues, confused. OBJECTIVE: VITAL SIGNS: T-max is 97.5, heart rate was 131, blood pressure 100/62, respirations are 20. HEENT: Head is atraumatic, normocephalic. NECK: Supple. LUNGS: Clear. No rhonchi. HEART: S1, S2 regular. ABDOMEN: Soft. He has a colostomy. EXTREMITIES: Have no edema. Wears a diaper. Labs are noted today. White count is 11, hemoglobin 8.9, hematocrit 26.9, platelet count is 488, neutrophils are 79.9. His sodium remains elevated at 151, potassium at 5.5, and creatinine is 4.1. He is with renal failure, dehydration, sepsis with MRSA septicemia; and he is presently on Wednesday, Wednesday, Wednesday Cubicin, and also think he is on hydration but while he was on sodium tablets which has been discontinued, so hopefully, his sodium will get better and need to be followed and primary is following that. The patient is on Cubicin. If his kidney function improved further, he needs the IV fluids with D5W . He did receive Kayexalate for his potassium, and he is on Cubicin for MRSA. We will follow. Teresa Barnett MD
[2018-02-15] MEDS: Metoprolol Succinate 12.5 mg XL Tab PO SCH (11:13)
[2018-02-15] MEDS: Pantoprazole 40 mg Susp UD PO SCH (11:13)
--- NOTE | 2018-02-15 12:21 | CP.PCM.CON ---
History of Present Illness - History of Present Illness History of Present Illness: History from chart, pt is non verbal 72 y/o male admitted from [facility] with AMS and non specific symptoms last month. Currently on cubicin for non healing leg ulcer MRSA bacteremia. echo neg for vegetations. Found to have elevated creatinine in 4 range and elevated potassium - nephrology consulted. REcent prior hospitalization last month, requiring hd briefly for joy. Baseline creatinine unclear, but likely ckd 4 hx of cmp, EF 15-20% on recent echo. PMX: dementia, DM, BPH, CKD4 Psurg hx: s/p colostomy allergeis: NKDA Review of Systems - Review of Systems Systems not reviewed;Unavailable: Altered Mental Status Past Patient History - Infectious Disease Hx of Infectious Diseases: None - Tetanus Immunizations Tetanus Immunization: Unknown - Past Medical History & Family History Past Medical History?: Yes - Past Social History Smoking Status: Unknown If Ever Smoked - CARDIAC Hx Cardiac Disorders: Yes Hx Hypertension: Yes - PULMONARY Hx Respiratory Disorders: Yes - NEUROLOGICAL Hx Dementia: Yes - HEENT Hx HEENT Problems: No - RENAL Hx Chronic Kidney Disease: No - ENDOCRINE/METABOLIC Hx Diabetes Mellitus Type 2: Yes - HEMATOLOGICAL/ONCOLOGICAL Hx Anemia: Yes - INTEGUMENTARY Hx Dermatological Problems: No - MUSCULOSKELETAL/RHEUMATOLOGICAL Hx Falls: No - GASTROINTESTINAL Hx Gastrointestinal Disorders: No Hx Colostomy: Yes - GENITOURINARY/GYNECOLOGICAL Hx Genitourinary Disorders: No - PSYCHIATRIC Hx Substance Use: No - SURGICAL HISTORY Hx Surgeries: No Other/Comment: unable to obtain informations - ANESTHESIA Hx Anesthesia: No Hx Anesthesia Reactions: No Meds Allergies/Adverse Reactions: Allergies Allergy/AdvReac Type Severity Reaction Status Date / Time No Known Allergies Allergy Verified 01/13/18 17:08 - Medications Medications: Current Medications Acetaminophen (Tylenol 325mg Tab) 650 mg PO Q6 PRN PRN Reason: Fever >100.4 F Last Admin: 01/27/18 03:58 Dose: 650 mg Aspirin (Aspirin Chewable) 81 mg PO DAILY [facility] Last Admin: 02/15/18 11:13 Dose: 81 mg Famotidine (Pepcid) 20 mg PO BID [facility] Daptomycin 400 mg/ Sodium (Chloride) 100 mls @ 100 mls/hr IV F [facility]; Protocol Stop: 02/16/18 09:01 Last Admin: 02/14/18 09:58 Dose: 100 mls/hr Sodium Chloride (Sodium Chloride 0.45%) 1,000 mls @ 70 mls/hr IV .[id number] [facility] Insulin Aspart (Novolog) 0 unit SC Q6 [facility]; Protocol Last Admin: 02/15/18 06:35 Dose: 2 units Insulin Detemir (Levemir) 10 unit SC HS [facility] Last Admin: 02/14/18 21:24 Dose: 10 units Metoprolol Succinate (Toprol Xl) 12.5 mg PO DAILY [facility] Last Admin: 02/15/18 11:13 Dose: Not Given Tamsulosin HCl (Flomax) 0.4 mg PO DAILY [facility] Last Admin: 02/15/18 11:12 Dose: 0.4 mg Physical Exam - Constitutional Appears: No Acute Distress, Unkempt, Cachectic, Chronically Ill - Head Exam Head Exam: NORMAL INSPECTION, NORMOCEPHALIC - Eye Exam Eye Exam: Normal appearance Pupil Exam: PERRL - ENT Exam ENT Exam: Mucous Membranes Moist, Normal Exam - Neck Exam Neck exam: Positive for: Normal Inspection - Respiratory Exam Respiratory Exam: Clear to Auscultation Bilateral, NORMAL BREATHING PATTERN - Cardiovascular Exam Cardiovascular Exam: REGULAR RHYTHM, RRR - GI/Abdominal Exam GI & Abdominal Exam: Distended, Soft Additional comments: colostomy - Extremities Exam Extremities exam: Positive for: normal inspection - Neurological Exam Neurological exam: Alert - Psychiatric Exam Psychiatric exam: Normal Affect - Skin Skin Exam: Dry, Warm Results - Vital Signs Recent Vital Signs: Last Vital Signs Temp 97.0 F L 02/15/18 07:35 Pulse 107 H 02/15/18 07:35 Resp 20 02/15/18 07:35 BP 93/66 L 02/15/18 07:35 Pulse Ox 96 02/15/18 07:35 - Labs Result Diagrams: 02/14/18 11:44 02/14/18 11:44 Labs: Laboratory Results - last 24 hr 02/14/18 02/15/18 02/15/18 17:23 00:06 06:06 POC Glucose (mg/dL) 116 H 278 H 163 H Assessment & Plan (1) JOY (acute kidney injury) Status: Acute (2) Electrolyte imbalance Status: Acute (3) MRSA (methicillin resistant Staphylococcus aureus) septicemia Status: Acute (4) CHF (congestive heart failure) Status: Chronic (5) Diabetes mellitus Status: Chronic (6) Afib Status: Acute (7) Anemia Status: Acute - Assessment and Plan (Free Text) Assessment: # JOY - ? volume depletion / atn/ AIN. r/o urinary retention / obstruction. ARB dysautoregulation contributary # ckd 4, previously on hd briefly # hyperkalemia # leg ulcer # dm # hypernatremia plan: hypotonic iv fluids low k diet, may give nepro supplement renal and bladder US urinalysis strict I/O, may need geronimo dc PPI, famotidine ordered DC losartan may need HD, will follow along.
[2018-02-15] MEDS: Sodium Chloride 0.45% 1,000 ML IV SCH (13:15)
--- NOTE | 2018-02-15 15:54 | CP.PCM.PN ---
Subjective - Date & Time of Evaluation Date of Evaluation: 02/15/18 Time of Evaluation: 08:00 - Subjective Subjective: clinically same Objective - Vital Signs/Intake and Output Vital Signs (last 24 hours): Temp Pulse Resp BP Pulse Ox 97.0 F L 107 H 20 93/66 L 96 02/15/18 07:35 02/15/18 07:35 02/15/18 07:35 02/15/18 07:35 02/15/18 07:35 Intake and Output: 02/15/18 02/15/18 06:59 18:59 Intake Total 400 Output Total 350 Balance 50 - Medications Medications: Current Medications Acetaminophen (Tylenol 325mg Tab) 650 mg PO Q6 PRN PRN Reason: Fever >100.4 F Last Admin: 01/27/18 03:58 Dose: 650 mg Aspirin (Aspirin Chewable) 81 mg PO DAILY [facility] Last Admin: 02/15/18 11:13 Dose: 81 mg Famotidine (Pepcid) 20 mg PO BID [facility] Daptomycin 400 mg/ Sodium (Chloride) 100 mls @ 100 mls/hr IV MWF [facility]; Protocol Stop: 02/16/18 09:01 Last Admin: 02/14/18 09:58 Dose: 100 mls/hr Sodium Chloride (Sodium Chloride 0.45%) 1,000 mls @ 70 mls/hr IV .[id number] [facility] Last Admin: 02/15/18 13:15 Dose: 70 mls/hr Insulin Aspart (Novolog) 0 unit SC Q6 [facility]; Protocol Last Admin: 02/15/18 12:55 Dose: Not Given Insulin Detemir (Levemir) 10 unit SC HS [facility] Last Admin: 02/14/18 21:24 Dose: 10 units Metoprolol Succinate (Toprol Xl) 12.5 mg PO DAILY [facility] Last Admin: 02/15/18 11:13 Dose: Not Given Tamsulosin HCl (Flomax) 0.4 mg PO DAILY [facility] Last Admin: 02/15/18 11:12 Dose: 0.4 mg - Labs Labs: 02/14/18 11:44 02/14/18 11:44 PT 14.1 SECONDS (9.7-12.2) H 01/31/18 08:01 INR 1.3 01/31/18 08:01 APTT 30 SECONDS (21-34) 01/13/18 17:42 - Constitutional Appears: Well - Head Exam Head Exam: ATRAUMATIC, NORMAL INSPECTION, NORMOCEPHALIC - Eye Exam Eye Exam: EOMI, Normal appearance, PERRL Pupil Exam: NORMAL ACCOMODATION, PERRL - ENT Exam ENT Exam: Mucous Membranes Moist, Normal Exam - Neck Exam Neck Exam: Full ROM, Normal Inspection. absent: Lymphadenopathy - Respiratory Exam Respiratory Exam: Decreased Breath Sounds - Cardiovascular Exam Cardiovascular Exam: REGULAR RHYTHM, +S1, +S2 - GI/Abdominal Exam GI & Abdominal Exam: Soft, Diminished Bowel Sounds - Rectal Exam Rectal Exam: Deferred Assessment and Plan (1) JOY (acute kidney injury) Status: Acute (2) Change in mental status Status: Acute (3) Electrolyte imbalance Status: Acute (4) MRSA (methicillin resistant Staphylococcus aureus) septicemia Status: Acute (5) NSTEMI (non-ST elevated myocardial infarction) Status: Acute (6) Prophylactic measure Status: Acute (7) UTI (urinary tract infection) Status: Acute (8) CHF (congestive heart failure) Status: Chronic (9) CKD (chronic kidney disease) Status: Chronic (10) Diabetes mellitus Status: Chronic (11) Afib Status: Acute (12) Anemia Status: Acute (13) Bilateral hydronephrosis Status: Acute (14) CKD (chronic kidney disease) stage 4, GFR 15-29 ml/min Status: Acute (15) Metabolic acidosis Status: Acute (16) Dementia Status: Chronic
[2018-02-15 16:36] LABS: BASO # 0.1 K/uL (0.0-0.2); BASO % 0.7 % (0.0-2.0); EOS # 0.2 K/uL (0.0-0.7); EOS % 2.3 % (0.0-4.0); HEMOGLOBIN 9.9 g/dL (12.0-18.0); LYMPH # 1.3 K/uL (1.0-4.3); LYMPH % 13.2 % (20.0-40.0); MEAN CELL VOLUME 88.4 fL (80.0-94.0); MEAN CORPUSCULAR HEMOGLOBIN 28.8 pg (27.0-31.0); MEAN CORPUSCULAR HGB CONC 32.6 g/dL (33.0-37.0); MEAN PLATELET VOLUME 7.1 fL (7.2-11.7); MONO # 0.5 K/uL (0.0-0.8); MONO % 5.1 % (0.0-10.0); NEUT # 7.8 K/uL (1.8-7.0); NEUT % 78.7 % (50.0-75.0); NRBC % 0.2 % (0.0-2.0); RBC 3.45 Mil/uL (4.40-5.90); RED CELL DISTRIBUTION WIDTH 17.3 % (11.5-14.5)
[2018-02-15 17:05] LABS: ALB/GLOB RATIO 0.7 (1.0-2.1); ALBUMIN 3.7 g/dL (3.5-5.0); CALCIUM 10.5 mg/dl (8.6-10.4)
--- NOTE | 2018-02-15 22:09 | CP.PCM.PN ---
Subjective - Date & Time of Evaluation Date of Evaluation: 02/15/18 Time of Evaluation: 14:00 - Subjective Subjective: dictated Objective - Vital Signs/Intake and Output Vital Signs (last 24 hours): Temp Pulse Resp BP Pulse Ox 98 F 130 H 20 92/59 L 96 02/15/18 15:54 02/15/18 15:54 02/15/18 15:54 02/15/18 15:54 02/15/18 15:54 - Medications Medications: Current Medications Acetaminophen (Tylenol 325mg Tab) 650 mg PO Q6 PRN PRN Reason: Fever >100.4 F Last Admin: 01/27/18 03:58 Dose: 650 mg Aspirin (Aspirin Chewable) 81 mg PO DAILY [facility] Last Admin: 02/15/18 11:13 Dose: 81 mg Famotidine (Pepcid) 20 mg PO DAILY [facility] Last Admin: 02/15/18 16:20 Dose: 20 mg Daptomycin 400 mg/ Sodium (Chloride) 100 mls @ 100 mls/hr IV MWF [facility]; Protocol Stop: 02/16/18 09:01 Last Admin: 02/14/18 09:58 Dose: 100 mls/hr Sodium Chloride (Sodium Chloride 0.45%) 1,000 mls @ 70 mls/hr IV .[id number] [facility] Last Admin: 02/15/18 13:15 Dose: 70 mls/hr Insulin Aspart (Novolog) 0 unit SC Q6 [facility]; Protocol Last Admin: 02/15/18 19:21 Dose: Not Given Insulin Detemir (Levemir) 10 unit SC HS [facility] Last Admin: 02/14/18 21:24 Dose: 10 units Metoprolol Succinate (Toprol Xl) 12.5 mg PO DAILY [facility] Last Admin: 02/15/18 11:13 Dose: Not Given Tamsulosin HCl (Flomax) 0.4 mg PO DAILY [facility] Last Admin: 02/15/18 11:12 Dose: 0.4 mg - Labs Labs: 02/15/18 16:30 02/15/18 16:30 PT 14.1 SECONDS (9.7-12.2) H 01/31/18 08:01 INR 1.3 01/31/18 08:01 APTT 30 SECONDS (21-34) 01/13/18 17:42
[2018-02-15] MEDS: Insulin Detemir 100 units/ml Vial (Levemir) SC SCH (22:15)
[2018-02-15 22:23] LABS: URINE BACTERIA MANY (<OCC); URINE BILIRUBIN NEGATIVE (NEGATIVE); URINE BLOOD 1+ (NEGATIVE); URINE CLARITY Turbid (Clear); URINE COLOR Yellow (YELLOW); URINE GLUCOSE (UA) NORMAL (Normal); URINE LEUKOCYTE ESTERASE 3+ Leu/uL (Negative); URINE PROTEIN 2+ mg/dL (NEGATIVE); URINE UROBILINOGEN NORMAL mg/dL (0.2-1.0); WBC CLUMPS MANY /hpf
[2018-02-16] MEDS: (Novolog) Insulin Aspart, Recombinant 100 u/ml 10 ml vial SC SCH ×4 (00:03→19:42)
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
[2018-02-16] MEDS: Sodium Chloride 0.45% 1,000 ML IV SCH (02:30)
[2018-02-16] MEDS: Metoprolol Succinate 12.5 mg XL Tab PO SCH (10:19)
[2018-02-16 11:06] LABS: HEMOGLOBIN 9.3 g/dL (12.0-18.0); MEAN CELL VOLUME 88.4 fL (80.0-94.0); MEAN CORPUSCULAR HEMOGLOBIN 28.6 pg (27.0-31.0); MEAN CORPUSCULAR HGB CONC 32.4 g/dL (33.0-37.0); MEAN PLATELET VOLUME 7.4 fL (7.2-11.7); RBC 3.24 Mil/uL (4.40-5.90); RED CELL DISTRIBUTION WIDTH 17.1 % (11.5-14.5); WHITE BLOOD COUNT 14.1 K/uL (4.8-10.8)
--- NOTE | 2018-02-16 11:08 | US ---
Date of service: 02/15/2018 PROCEDURE: Ultrasound of the Kidneys HISTORY: acute renal failure COMPARISON: Renal/ urinary bladder us performed 01/20/18 TECHNIQUE: Sonogram of the kidneys. FINDINGS: Examination markedly limited due to patient condition. RIGHT KIDNEY: Measures: 9.5 x 4.5 x 5.1 cm. Right renal cysts measuring approximately 0.5 by 0.5 x 0.4 cm and 0.5 x 0.4 x 0.4 cm in the upper pole and 1.8 x 1.3 x 1.7 cm in the lower pole. Right perinephric fluid. Mild right-sided hydronephrosis. No obstructing calculus identified. LEFT KIDNEY: Measures: 10.3 x 5.0 x 4.5 cm. 2.6 x 2.0 x 2.0 cm left upper pole renal cyst. Left-sided hydronephrosis. No obstructing calculus identified. OTHER FINDINGS: Prevoid urinary bladder measures approximately 8.9 x 7.6 x 7.1 cm, volume 252.7 mL. The patient is unable to void. Left ureteral jet identified. The right ureteral jet is not visualized. Debris is noted within the urinary bladder. Aneurysmal dilatation of the distal aorta measuring approximately 3.4 x 2.5 cm. IMPRESSION: Limited study. Bilateral renal cysts. Bilateral hydronephrosis. Echogenic debris within the urinary bladder. Right perinephric fluid. Aneurysmal dilatation of the distal aorta measuring approximately 3.4 x 2.5 cm. Preliminary impression was provided by [facility].
[2018-02-16 11:27] LABS: CALCIUM 10.6 mg/dl (8.6-10.4)
[2018-02-16] MEDS ORDERED: Metoprolol 1 mg/ml Inj IVP ONE (13:15)
--- NOTE | 2018-02-16 14:12 | CP.PCM.PN ---
Subjective - Date & Time of Evaluation Date of Evaluation: 02/16/18 Time of Evaluation: 14:08 - Subjective Subjective: Called to see patient with advanced azotemia Patient confused, cannot provide any hx Recent sonogram shows bilateral hydro, has h/o JOY Has dementia On 1S, but Na levels increasing K elevated- needs treatment Objective - Vital Signs/Intake and Output Vital Signs (last 24 hours): Temp Pulse Resp BP Pulse Ox 97.8 F 142 H 20 122/78 98 02/16/18 08:00 02/16/18 13:49 02/16/18 08:00 02/16/18 13:49 02/16/18 08:00 Intake and Output: 02/16/18 02/16/18 06:59 18:59 Output Total 150 Balance -150 - Medications Medications: Current Medications Acetaminophen (Tylenol 325mg Tab) 650 mg PO Q6 PRN PRN Reason: Fever >100.4 F Last Admin: 01/27/18 03:58 Dose: 650 mg Aspirin (Aspirin Chewable) 81 mg PO DAILY [facility] Last Admin: 02/16/18 10:19 Dose: 81 mg Famotidine (Pepcid) 20 mg PO DAILY [facility] Last Admin: 02/16/18 10:19 Dose: 20 mg Sodium Chloride (Sodium Chloride 0.45%) 1,000 mls @ 70 mls/hr IV .[id number] [facility] Last Admin: 02/16/18 02:30 Dose: 70 mls/hr Insulin Aspart (Novolog) 0 unit SC Q6 [facility]; Protocol Last Admin: 02/16/18 12:13 Dose: 3 units Insulin Detemir (Levemir) 10 unit SC HS [facility] Last Admin: 02/15/18 22:15 Dose: 10 units Metoprolol Succinate (Toprol Xl) 12.5 mg PO DAILY [facility] Last Admin: 02/16/18 10:19 Dose: 12.5 mg Tamsulosin HCl (Flomax) 0.4 mg PO DAILY [facility] Last Admin: 02/16/18 10:19 Dose: 0.4 mg - Labs Labs: 02/16/18 10:58 02/16/18 10:58 PT 14.1 SECONDS (9.7-12.2) H 01/31/18 08:01 INR 1.3 01/31/18 08:01 APTT 30 SECONDS (21-34) 01/13/18 17:42 - Constitutional Appears: Confused, Chronically Ill - Head Exam Head Exam: ATRAUMATIC, NORMAL INSPECTION - Eye Exam Eye Exam: EOMI, Normal appearance - Neck Exam Neck Exam: Normal Inspection. absent: Tenderness - Respiratory Exam Respiratory Exam: Decreased Breath Sounds, NORMAL BREATHING PATTERN - Cardiovascular Exam Cardiovascular Exam: Tachycardia, +S1 - GI/Abdominal Exam GI & Abdominal Exam: Soft. absent: Tenderness - Extremities Exam Extremities Exam: Normal Inspection. absent: Tenderness - Neurological Exam Neurological Exam: Altered - Skin Skin Exam: Dry, Warm Assessment and Plan (1) JOY (acute kidney injury) Status: Acute (2) Change in mental status Status: Acute (3) Diabetes mellitus Status: Chronic (4) Bilateral hydronephrosis Status: Acute - Assessment and Plan (Free Text) Plan: Change to D5W fluids nsulin a sneeded Kayexalate Recommend PNT or stent to treat urinary obstruction [employer] as last resort if above could not be accomplished
[2018-02-16] MEDS ORDERED: Sod Polystyrene Sulf 15 gm/60 ml Susp PO ONE (14:30)
--- NOTE | 2018-02-16 15:18 | CP.PCM.CON ---
History of Present Illness - History of Present Illness History of Present Illness: EP Consult Reason for consult: tachycardia HPI: History from chart, pt is non verbal Patient is a 72 yo man with history of dementia, DM, BPH, stage 4 CKD who is admitted for altered mental status and found to have leg ulcer, UTI, hydronephrosis and persistent MRSA bacteremia. Echo showed severe LV dysfunction with EF 20-25%. EMILIANO on 01/31/18 was negative for vegetations. He is now in a persistent atrial flutter/atrial tachycardia with HR in 150's. EP is consulted by Dr. Thompson. ROS: unable to obtain due to dementia PMX: dementia, DM, BPH, CKD4 Psurg hx: s/p colostomy meds: reviewed allergeis: KAMDA Past Patient History - Infectious Disease Hx of Infectious Diseases: None - Tetanus Immunizations Tetanus Immunization: Unknown - Past Medical History & Family History Past Medical History?: Yes - Past Social History Smoking Status: Unknown If Ever Smoked - CARDIAC Hx Cardiac Disorders: Yes Hx Hypertension: Yes - PULMONARY Hx Respiratory Disorders: Yes - NEUROLOGICAL Hx Dementia: Yes - HEENT Hx HEENT Problems: No - RENAL Hx Chronic Kidney Disease: No - ENDOCRINE/METABOLIC Hx Diabetes Mellitus Type 2: Yes - HEMATOLOGICAL/ONCOLOGICAL Hx Anemia: Yes - INTEGUMENTARY Hx Dermatological Problems: No - MUSCULOSKELETAL/RHEUMATOLOGICAL Hx Falls: No - GASTROINTESTINAL Hx Gastrointestinal Disorders: No Hx Colostomy: Yes - GENITOURINARY/GYNECOLOGICAL Hx Genitourinary Disorders: No - PSYCHIATRIC Hx Substance Use: No - SURGICAL HISTORY Hx Surgeries: No Other/Comment: unable to obtain informations - ANESTHESIA Hx Anesthesia: No Hx Anesthesia Reactions: No Meds Allergies/Adverse Reactions: Allergies Allergy/AdvReac Type Severity Reaction Status Date / Time No Known Allergies Allergy Verified 01/13/18 17:08 - Medications Medications: Current Medications Acetaminophen (Tylenol 325mg Tab) 650 mg PO Q6 PRN PRN Reason: Fever >100.4 F Last Admin: 01/27/18 03:58 Dose: 650 mg Aspirin (Aspirin Chewable) 81 mg PO DAILY [facility] Last Admin: 02/16/18 10:19 Dose: 81 mg Famotidine (Pepcid) 20 mg PO DAILY [facility] Last Admin: 02/16/18 10:19 Dose: 20 mg Dextrose (Dextrose 5% In Water 1000 Ml) 1,000 mls @ 50 mls/hr IV .Q20H [facility] Last Admin: 02/16/18 14:44 Dose: 50 mls/hr Insulin Aspart (Novolog) 0 unit SC Q6 [facility]; Protocol Last Admin: 02/16/18 12:13 Dose: 3 units Insulin Detemir (Levemir) 10 unit SC HS [facility] Last Admin: 02/15/18 22:15 Dose: 10 units Metoprolol Succinate (Toprol Xl) 12.5 mg PO DAILY [facility] Last Admin: 02/16/18 10:19 Dose: 12.5 mg Tamsulosin HCl (Flomax) 0.4 mg PO DAILY [facility] Last Admin: 02/16/18 10:19 Dose: 0.4 mg Physical Exam - Constitutional Appears: Well - Head Exam Head Exam: ATRAUMATIC - ENT Exam ENT Exam: Mucous Membranes Moist - Respiratory Exam Respiratory Exam: Clear to Auscultation Bilateral - Cardiovascular Exam Cardiovascular Exam: Irregular Rhythm, +S1, +S2. absent: Systolic Murmur - GI/Abdominal Exam GI & Abdominal Exam: Soft. absent: Tenderness - Psychiatric Exam Psychiatric exam: Flat Affect - Skin Skin Exam: Warm Results - Vital Signs Recent Vital Signs: Last Vital Signs Temp 97.8 F 02/16/18 08:00 Pulse 142 H 02/16/18 13:49 Resp 20 02/16/18 08:00 BP 122/78 02/16/18 13:49 Pulse Ox 98 02/16/18 08:00 - Labs Result Diagrams: 02/16/18 10:58 02/16/18 10:58 Labs: Laboratory Results - last 24 hr 02/15/18 02/15/18 02/15/18 16:30 16:30 18:35 WBC 10.0 RBC 3.45 L Hgb 9.9 L Hct 30.5 L MCV 88.4 MCH 28.8 MCHC 32.6 L RDW 17.3 H Plt Count 470 H MPV 7.1 L Neut % (Auto) 78.7 H Lymph % (Auto) 13.2 L Mcmullen % (Auto) 5.1 Eos % (Auto) 2.3 Baso % (Auto) 0.7 Neut # (Auto) 7.8 H Lymph # (Auto) 1.3 Mcmullen # (Auto) 0.5 Eos # (Auto) 0.2 Baso # (Auto) 0.1 Sodium 150 H Potassium 5.8 H Chloride 112 H Carbon Dioxide 21 L Anion Gap 22 H BUN 102 H* Creatinine 4.5 H Est GFR ( Amer) 16 Est GFR (Non-Af Amer) 13 POC Glucose (mg/dL) 140 H Random Glucose 155 H Calcium 10.5 H Phosphorus 5.5 H Magnesium 2.7 H Total Bilirubin 0.6 AST 29 ALT 50 Alkaline Phosphatase 260 H Total Protein 8.6 H Albumin 3.7 Globulin 4.9 H Albumin/Globulin Ratio 0.7 L Urine Color Urine Clarity Urine pH Ur Specific Crawford Urine Protein Urine Glucose (UA) Urine Ketones Urine Blood Urine Nitrate Urine Bilirubin Urine Urobilinogen Ur Leukocyte Esterase Urine WBC (Auto) Urine RBC (Auto) Urine WBC Clumps (Auto) Urine Bacteria 02/15/18 02/16/18 02/16/18 22:10 00:00 06:07 WBC RBC Hgb Hct MCV MCH MCHC RDW Plt Count MPV Neut % (Auto) Lymph % (Auto) Mcmullen % (Auto) Eos % (Auto) Baso % (Auto) Neut # (Auto) Lymph # (Auto) Mcmullen # (Auto) Eos # (Auto) Baso # (Auto) Sodium Potassium Chloride Carbon Dioxide Anion Gap BUN Creatinine Est GFR ( Amer) Est GFR (Non-Af Amer) POC Glucose (mg/dL) 282 H 159 H Random Glucose Calcium Phosphorus Magnesium Total Bilirubin AST ALT Alkaline Phosphatase Total Protein Albumin Globulin Albumin/Globulin Ratio Urine Color Yellow Urine Clarity Turbid Urine pH 7.0 Ur Specific Crawford 1.016 Urine Protein 2+ H Urine Glucose (UA) Normal Urine Ketones Negative Urine Blood 1+ H Urine Nitrate Negative Urine Bilirubin Negative Urine Urobilinogen Normal Ur Leukocyte Esterase 3+ H Urine WBC (Auto) 80064 H Urine RBC (Auto) 97 H Urine WBC Clumps (Auto) Many H Urine Bacteria Many H 02/16/18 02/16/18 02/16/18 10:58 10:58 11:35 WBC 14.1 H RBC 3.24 L Hgb 9.3 L Hct 28.6 L MCV 88.4 MCH 28.6 MCHC 32.4 L RDW 17.1 H Plt Count 558 H MPV 7.4 Neut % (Auto) Lymph % (Auto) Mcmullen % (Auto) Eos % (Auto) Baso % (Auto) Neut # (Auto) Lymph # (Auto) Mcmullen # (Auto) Eos # (Auto) Baso # (Auto) Sodium 152 H Potassium 5.6 H Chloride 111 H Carbon Dioxide 23 Anion Gap 23 H BUN 107 H* Creatinine 4.8 H Est GFR ( Amer) 15 Est GFR (Non-Af Amer) 12 POC Glucose (mg/dL) 219 H Random Glucose 134 H Calcium 10.6 H Phosphorus Magnesium Total Bilirubin AST ALT Alkaline Phosphatase Total Protein Albumin Globulin Albumin/Globulin Ratio Urine Color Urine Clarity Urine pH Ur Specific Crawford Urine Protein Urine Glucose (UA) Urine Ketones Urine Blood Urine Nitrate Urine Bilirubin Urine Urobilinogen Ur Leukocyte Esterase Urine WBC (Auto) Urine RBC (Auto) Urine WBC Clumps (Auto) Urine Bacteria - Impressions Impression: EKG: atrial flutter versus 2:1 atrial tachycardia, NSST's Assessment & Plan - Assessment and Plan (Free Text) Assessment: 1. Persistent atrial flutter/atrial tachycardia with RVR -- Being driven by underlying MRSA sepsis 2. Severe LV dysfunction EF 20-25% 3. MRSA sepsis 4. JOY with hydronephrosis 5. Hyponatremia 6. Hyperkalemia Plan: 1. Atrial flutter is being driven by underlying MRSA sepsis, and will improve with treatment of his sepsis 2. Patient is unlikely to remain in sinus rhythm with an electric cardiover pamela, as he is still septic 3. Ablation is not advised due to his current septic state 4. At this time, I recommend fluid resuscitation and low dose metoprolol 12.5mg BID 5. If pt becomes hemodynamically unstable, then certainly a cardioversion would be advised 6. Start heparin drip for stroke prevention Further cardiac care will be with Dr. Jay Thompson will contact me with any additional EP related questions
--- NOTE | 2018-02-16 15:33 | RAD ---
Date of service: 02/16/2018 PROCEDURE: CHEST RADIOGRAPH, 1 VIEW HISTORY: f/u COMPARISON: 01/21/2018 FINDINGS: LUNGS: Clear. PLEURA: No pneumothorax or pleural fluid seen. CARDIOVASCULAR: Normal. OSSEOUS STRUCTURES: No significant abnormalities. VISUALIZED UPPER ABDOMEN: Normal. OTHER FINDINGS: None. IMPRESSION: No active disease.
--- NOTE | 2018-02-16 21:08 | CP.PCM.PN ---
Subjective - Date & Time of Evaluation Date of Evaluation: 02/16/18 Time of Evaluation: 08:00 - Subjective Subjective: clinically same Objective - Vital Signs/Intake and Output Vital Signs (last 24 hours): Temp Pulse Resp BP Pulse Ox 97.6 F 120 H 20 101/65 100 02/16/18 15:30 02/16/18 15:30 02/16/18 15:30 02/16/18 15:30 02/16/18 15:30 Intake and Output: 02/16/18 02/17/18 18:59 06:59 Output Total 150 Balance -150 - Medications Medications: Current Medications Acetaminophen (Tylenol 325mg Tab) 650 mg PO Q6 PRN PRN Reason: Fever >100.4 F Last Admin: 01/27/18 03:58 Dose: 650 mg Aspirin (Aspirin Chewable) 81 mg PO DAILY [facility] Last Admin: 02/16/18 10:19 Dose: 81 mg Famotidine (Pepcid) 20 mg PO DAILY [facility] Last Admin: 02/16/18 10:19 Dose: 20 mg Dextrose (Dextrose 5% In Water 1000 Ml) 1,000 mls @ 50 mls/hr IV .Q20H [facility] Last Admin: 02/16/18 14:44 Dose: 50 mls/hr Insulin Aspart (Novolog) 0 unit SC Q6 [facility]; Protocol Last Admin: 02/16/18 19:42 Dose: 3 units Insulin Detemir (Levemir) 10 unit SC HS [facility] Last Admin: 02/15/18 22:15 Dose: 10 units Metoprolol Succinate (Toprol Xl) 12.5 mg PO DAILY [facility] Last Admin: 02/16/18 10:19 Dose: 12.5 mg Tamsulosin HCl (Flomax) 0.4 mg PO DAILY [facility] Last Admin: 02/16/18 10:19 Dose: 0.4 mg - Labs Labs: 02/16/18 10:58 02/16/18 10:58 PT 14.1 SECONDS (9.7-12.2) H 01/31/18 08:01 INR 1.3 01/31/18 08:01 APTT 30 SECONDS (21-34) 01/13/18 17:42 Assessment and Plan (1) JOY (acute kidney injury) Status: Acute (2) Change in mental status Status: Acute (3) Electrolyte imbalance Status: Acute (4) MRSA (methicillin resistant Staphylococcus aureus) septicemia Status: Acute (5) NSTEMI (non-ST elevated myocardial infarction) Status: Acute (6) Prophylactic measure Status: Acute (7) UTI (urinary tract infection) Status: Acute (8) CHF (congestive heart failure) Status: Chronic (9) CKD (chronic kidney disease) Status: Chronic (10) Diabetes mellitus Status: Chronic (11) Afib Status: Acute (12) Anemia Status: Acute (13) Bilateral hydronephrosis Status: Acute (14) CKD (chronic kidney disease) stage 4, GFR 15-29 ml/min Status: Acute (15) Metabolic acidosis Status: Acute (16) Dementia Status: Chronic
--- NOTE | 2018-02-16 21:55 | CP.PCM.PN ---
Subjective - Date & Time of Evaluation Date of Evaluation: 02/16/18 Time of Evaluation: 17:10 - Subjective Subjective: Physical Exam - Constitutional Appears: Well - Head Exam Head Exam: ATRAUMATIC - ENT Exam ENT Exam: Mucous Membranes Moist - Respiratory Exam Respiratory Exam: Clear to Auscultation Bilateral - Cardiovascular Exam Cardiovascular Exam: Irregular Rhythm, +S1, +S2. absent: Systolic Murmur - GI/Abdominal Exam GI & Abdominal Exam: Soft. absent: Tenderness - Psychiatric Exam Psychiatric exam: Flat Affect - Skin Skin Exam: Warm - Impressions Impression: EKG: atrial flutter versus 2:1 atrial tachycardia, NSST's Assessment & Plan - Assessment and Plan (Free Text) Assessment: EP consult appreciated 1. Persistent atrial flutter/atrial tachycardia with RVR -- Being driven by underlying MRSA sepsis 2. Severe LV dysfunction EF 20-25% 3. MRSA sepsis 4. JOY with hydronephrosis 5. Hyponatremia 6. Hyperkalemia Due to so many Cardiac and non cardiac comorbid conditions Patient is considered high cardiac risk for any surgical procedures including Nephrostomy tube If the benefit outweighs the risk please proceed with the needed surgical procedures Thank you Objective - Vital Signs/Intake and Output Vital Signs (last 24 hours): Temp Pulse Resp BP Pulse Ox 97.6 F 120 H 20 101/65 100 02/16/18 15:30 02/16/18 15:30 02/16/18 15:30 02/16/18 15:30 02/16/18 15:30 Intake and Output: 02/16/18 02/17/18 18:59 06:59 Output Total 150 Balance -150 - Medications Medications: Current Medications Acetaminophen (Tylenol 325mg Tab) 650 mg PO Q6 PRN PRN Reason: Fever >100.4 F Last Admin: 01/27/18 03:58 Dose: 650 mg Aspirin (Aspirin Chewable) 81 mg PO DAILY [facility] Last Admin: 02/16/18 10:19 Dose: 81 mg Famotidine (Pepcid) 20 mg PO DAILY [facility] Last Admin: 02/16/18 10:19 Dose: 20 mg Dextrose (Dextrose 5% In Water 1000 Ml) 1,000 mls @ 50 mls/hr IV .Q20H [facility] Last Admin: 02/16/18 14:44 Dose: 50 mls/hr Insulin Aspart (Novolog) 0 unit SC Q6 [facility]; Protocol Last Admin: 02/16/18 19:42 Dose: 3 units Insulin Detemir (Levemir) 10 unit SC HS [facility] Last Admin: 02/15/18 22:15 Dose: 10 units Metoprolol Succinate (Toprol Xl) 25 mg PO BID [facility] Tamsulosin HCl (Flomax) 0.4 mg PO DAILY [facility] Last Admin: 02/16/18 10:19 Dose: 0.4 mg - Labs Labs: 02/16/18 10:58 02/16/18 10:58 PT 14.1 SECONDS (9.7-12.2) H 01/31/18 08:01 INR 1.3 01/31/18 08:01 APTT 30 SECONDS (21-34) 01/13/18 17:42
--- NOTE | 2018-02-16 21:55 | CP.PCM.PN ---
Subjective - Date & Time of Evaluation Date of Evaluation: 02/16/18 Time of Evaluation: 02:25 - Subjective Subjective: dictated Objective - Vital Signs/Intake and Output Vital Signs (last 24 hours): Temp Pulse Resp BP Pulse Ox 97.6 F 120 H 20 101/65 100 02/16/18 15:30 02/16/18 15:30 02/16/18 15:30 02/16/18 15:30 02/16/18 15:30 Intake and Output: 02/16/18 02/17/18 18:59 06:59 Output Total 150 Balance -150 - Medications Medications: Current Medications Acetaminophen (Tylenol 325mg Tab) 650 mg PO Q6 PRN PRN Reason: Fever >100.4 F Last Admin: 01/27/18 03:58 Dose: 650 mg Aspirin (Aspirin Chewable) 81 mg PO DAILY [facility] Last Admin: 02/16/18 10:19 Dose: 81 mg Famotidine (Pepcid) 20 mg PO DAILY [facility] Last Admin: 02/16/18 10:19 Dose: 20 mg Dextrose (Dextrose 5% In Water 1000 Ml) 1,000 mls @ 50 mls/hr IV .Q20H [facility] Last Admin: 02/16/18 14:44 Dose: 50 mls/hr Insulin Aspart (Novolog) 0 unit SC Q6 [facility]; Protocol Last Admin: 02/16/18 19:42 Dose: 3 units Insulin Detemir (Levemir) 10 unit SC HS [facility] Last Admin: 02/15/18 22:15 Dose: 10 units Metoprolol Succinate (Toprol Xl) 25 mg PO BID [facility] Tamsulosin HCl (Flomax) 0.4 mg PO DAILY [facility] Last Admin: 02/16/18 10:19 Dose: 0.4 mg - Labs Labs: 02/16/18 10:58 02/16/18 10:58 PT 14.1 SECONDS (9.7-12.2) H 01/31/18 08:01 INR 1.3 01/31/18 08:01 APTT 30 SECONDS (21-34) 01/13/18 17:42
[2018-02-16] MEDS: Insulin Detemir 100 units/ml Vial (Levemir) SC SCH (22:16)
[2018-02-16] MEDS: Meropenem 500 MG in Sodium Chloride 0.9% 100 ML IVPB SCH (22:35)
[2018-02-17] MEDS: (Novolog) Insulin Aspart, Recombinant 100 u/ml 10 ml vial SC SCH ×4 (00:23→18:18)
--- NOTE | 2018-02-17 02:13 | PN ---
DATE: 02/16/2018 SUBJECTIVE: The patient was seen this afternoon, he appeared to be unremarkable. He was awake, confused mumbling to himself. He did not appear any different than he looks every day. PHYSICAL EXAMINATION: VITAL SIGNS: His temperature was 97, 98, heart rate was tachycardic, blood pressure is on low side 92/59, respirations 20. HEENT: Head is atraumatic. NECK: Supple. LUNGS: Clear. HEART: S1, tachycardia. ABDOMEN: Soft, nontender, has colostomy. EXTREMITIES: Have dry skin and no edema. He has been appearing very dry. He was on fluids, Dr. Jean has been called in as his creatinine has increased and he has severe azotemia, remains confused. He has been on Cubicin and lately he had MRSA negative and his potassium also is elevated. LABORATORY DATA: Labs are noted today. Labs white count was 14 increased from 10 and hemoglobin 9.3, hematocrit 28.6, platelet count is 558. Chemistry shows BUN is 107, creatinine 4.8, and sodium is 152, potassium is 5.6. He has severe renal issues and his urine came out with severe pyuria as I ordered it earlier before writing my note for today and shows wbc 17,313, wbc many, bacteria many. He is already still on the treatment for MRSA, he has been on Cubicin which we have still continued and Cubicin just , so we will renew it, but it is MWF, so I am sure he got it today, otherwise, I am going to go back on it. His lactic acid is high, so we are looking for the urine culture again, getting a stool for C. diff, blood cultures have been recently negative. 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 Chiu does not want to do surgery and the surprising part is that in spite of having white count, he never runs a fever here and so will follow. As I was just planning to get him on oral antibiotics for the methicillin-resistant Staphylococcus aureus, he has received more than 4 weeks of treatment and still wanted to cover two more weeks. We will follow. Teresa Barnett MD [facility] # [id number]
[2018-02-17] MEDS ORDERED: Verapamil 2 ML ONE (03:28)
[2018-02-17] MEDS: Metoprolol Succinate 25 mg XL Tab PO SCH ×3 (06:48→17:08)
--- NOTE | 2018-02-17 10:16 | CP.PCM.PN ---
Subjective - Date & Time of Evaluation Date of Evaluation: 02/17/18 Time of Evaluation: 10:12 - Subjective Subjective: Remains confused; did not allow lab drawing this AM Remains with increased VR-130s Discussed with MEDICAL RECORDS COORDINATOR on floor- would be best to place ureteral stent or percutaneous nephrostomy fo urinary obstruction Awaiting plans outlined by MEDICAL RECORDS COORDINATOR- trying to get PNT placed by IR Recommending IV D5W fluids now Needs repeat chemistries Objective - Vital Signs/Intake and Output Vital Signs (last 24 hours): Temp Pulse Resp BP Pulse Ox 97.7 F 130 H 20 101/64 96 02/17/18 08:07 02/17/18 08:07 02/17/18 08:07 02/17/18 08:07 02/17/18 08:07 - Medications Medications: Current Medications Acetaminophen (Tylenol 325mg Tab) 650 mg PO Q6 PRN PRN Reason: Fever >100.4 F Last Admin: 01/27/18 03:58 Dose: 650 mg Aspirin (Aspirin Chewable) 81 mg PO DAILY [facility] Last Admin: 02/16/18 10:19 Dose: 81 mg Famotidine (Pepcid) 20 mg PO DAILY [facility] Last Admin: 02/16/18 10:19 Dose: 20 mg Dextrose (Dextrose 5% In Water 1000 Ml) 1,000 mls @ 50 mls/hr IV .Q20H [facility] Last Admin: 02/16/18 14:44 Dose: 50 mls/hr Meropenem 500 mg/ Sodium (Chloride) 100 mls @ 100 mls/hr IVPB DAILY [facility]; Protocol Last Admin: 02/16/18 22:35 Dose: 100 mls/hr Daptomycin 400 mg/ Sodium (Chloride) 100 mls @ 100 mls/hr IV MWF [facility]; Protocol Stop: 02/23/18 09:01 Insulin Aspart (Novolog) 0 unit SC Q6 [facility]; Protocol Last Admin: 02/17/18 06:23 Dose: Not Given Insulin Detemir (Levemir) 10 unit SC HS [facility] Last Admin: 02/16/18 22:16 Dose: 10 units Metoprolol Succinate (Toprol Xl) 25 mg PO BID [facility] Last Admin: 02/17/18 06:48 Dose: 25 mg Tamsulosin HCl (Flomax) 0.4 mg PO DAILY [facility] Last Admin: 02/16/18 10:19 Dose: 0.4 mg - Labs Labs: 02/16/18 10:58 02/16/18 10:58 PT 14.1 SECONDS (9.7-12.2) H 01/31/18 08:01 INR 1.3 01/31/18 08:01 APTT 30 SECONDS (21-34) 01/13/18 17:42 - Constitutional Appears: In Acute Distress, Confused, Chronically Ill - Head Exam Head Exam: ATRAUMATIC, NORMAL INSPECTION - Eye Exam Eye Exam: EOMI, Normal appearance - Neck Exam Neck Exam: Normal Inspection. absent: Tenderness - Respiratory Exam Respiratory Exam: Clear to Ausculation Bilateral, NORMAL BREATHING PATTERN - Cardiovascular Exam Cardiovascular Exam: Tachycardia, Irregular Rhythm - GI/Abdominal Exam GI & Abdominal Exam: Soft. absent: Tenderness - Extremities Exam Extremities Exam: Normal Inspection. absent: Tenderness - Neurological Exam Neurological Exam: Awake, CN II-XII Intact - Skin Skin Exam: Dry, Warm Assessment and Plan (1) JOY (acute kidney injury) Status: Acute (2) Change in mental status Status: Acute (3) Diabetes mellitus Status: Chronic (4) Bilateral hydronephrosis Status: Acute - Assessment and Plan (Free Text) Plan: Needs chemistries Recommend ureteral stent or PNT placement IV D5W fluids for now
[2018-02-17] MEDS: Meropenem 500 MG in Sodium Chloride 0.9% 100 ML IVPB SCH (10:29)
[2018-02-17 10:55] LABS: HEMOGLOBIN 8.8 g/dL (12.0-18.0); MEAN CELL VOLUME 87.8 fL (80.0-94.0); MEAN CORPUSCULAR HEMOGLOBIN 27.7 pg (27.0-31.0); MEAN CORPUSCULAR HGB CONC 31.5 g/dL (33.0-37.0); MEAN PLATELET VOLUME 7.4 fL (7.2-11.7); RBC 3.17 Mil/uL (4.40-5.90); RED CELL DISTRIBUTION WIDTH 16.6 % (11.5-14.5); WHITE BLOOD COUNT 12.1 K/uL (4.8-10.8)
[2018-02-17 12:03] LABS: CALCIUM 10.4 mg/dl (8.6-10.4)
[2018-02-17] MEDS ORDERED: Sod Polystyrene Sulf 15 gm/60 ml Susp PO ONE (14:47)
--- NOTE | 2018-02-17 19:37 | CP.PCM.PN ---
Subjective - Date & Time of Evaluation Date of Evaluation: 02/17/18 Time of Evaluation: 08:00 - Subjective Subjective: clinically same Objective - Vital Signs/Intake and Output Vital Signs (last 24 hours): Temp Pulse Resp BP Pulse Ox 98.4 F 129 H 20 119/74 95 02/17/18 16:03 02/17/18 16:03 02/17/18 16:03 02/17/18 16:03 02/17/18 16:03 Intake and Output: 02/17/18 02/18/18 18:59 06:59 Intake Total 500 Balance 500 - Medications Medications: Current Medications Acetaminophen (Tylenol 325mg Tab) 650 mg PO Q6 PRN PRN Reason: Fever >100.4 F Last Admin: 01/27/18 03:58 Dose: 650 mg Aspirin (Aspirin Chewable) 81 mg PO DAILY [facility] Last Admin: 02/17/18 10:27 Dose: 81 mg Famotidine (Pepcid) 20 mg PO DAILY [facility] Last Admin: 02/17/18 10:27 Dose: 20 mg Dextrose (Dextrose 5% In Water 1000 Ml) 1,000 mls @ 50 mls/hr IV .Q20H [facility] Last Admin: 02/17/18 10:28 Dose: Not Given Meropenem 500 mg/ Sodium (Chloride) 100 mls @ 100 mls/hr IVPB DAILY [facility]; Protocol Last Admin: 02/17/18 10:29 Dose: 100 mls/hr Daptomycin 400 mg/ Sodium (Chloride) 100 mls @ 100 mls/hr IV MWF [facility]; Protocol Stop: 02/23/18 09:01 Insulin Aspart (Novolog) 0 unit SC Q6 [facility]; Protocol Last Admin: 02/17/18 18:18 Dose: 4 units Insulin Detemir (Levemir) 10 unit SC HS [facility] Last Admin: 02/16/18 22:16 Dose: 10 units Metoprolol Succinate (Toprol Xl) 25 mg PO BID [facility] Last Admin: 02/17/18 17:08 Dose: 25 mg Tamsulosin HCl (Flomax) 0.4 mg PO DAILY [facility] Last Admin: 02/17/18 10:28 Dose: 0.4 mg - Labs Labs: 02/17/18 10:48 02/17/18 10:48 PT 14.1 SECONDS (9.7-12.2) H 01/31/18 08:01 INR 1.3 01/31/18 08:01 APTT 30 SECONDS (21-34) 01/13/18 17:42 - Constitutional Appears: Well - Head Exam Head Exam: ATRAUMATIC, NORMAL INSPECTION, NORMOCEPHALIC - Eye Exam Eye Exam: EOMI, Normal appearance, PERRL Pupil Exam: NORMAL ACCOMODATION, PERRL - ENT Exam ENT Exam: Mucous Membranes Moist, Normal Exam - Neck Exam Neck Exam: Full ROM, Normal Inspection. absent: Lymphadenopathy - Respiratory Exam Respiratory Exam: Decreased Breath Sounds - Cardiovascular Exam Cardiovascular Exam: REGULAR RHYTHM, +S1, +S2 - GI/Abdominal Exam GI & Abdominal Exam: Soft, Diminished Bowel Sounds - Rectal Exam Rectal Exam: Deferred Assessment and Plan (1) JOY (acute kidney injury) Status: Acute (2) Change in mental status Status: Acute (3) Electrolyte imbalance Status: Acute (4) MRSA (methicillin resistant Staphylococcus aureus) septicemia Status: Acute (5) NSTEMI (non-ST elevated myocardial infarction) Status: Acute (6) Prophylactic measure Status: Acute (7) UTI (urinary tract infection) Status: Acute (8) CHF (congestive heart failure) Status: Chronic (9) CKD (chronic kidney disease) Status: Chronic (10) Diabetes mellitus Status: Chronic (11) Afib Status: Acute (12) Anemia Status: Acute (13) Bilateral hydronephrosis Status: Acute (14) CKD (chronic kidney disease) stage 4, GFR 15-29 ml/min Status: Acute (15) Metabolic acidosis Status: Acute (16) Dementia Status: Chronic
[2018-02-17] MEDS: Insulin Detemir 100 units/ml Vial (Levemir) SC SCH (22:08)
--- NOTE | 2018-02-17 22:28 | CP.PCM.PN ---
Subjective - Date & Time of Evaluation Date of Evaluation: 02/17/18 Time of Evaluation: 14:00 - Subjective Subjective: dictated Objective - Vital Signs/Intake and Output Vital Signs (last 24 hours): Temp Pulse Resp BP Pulse Ox 98.4 F 145 H 20 119/74 95 02/17/18 16:03 02/17/18 18:00 02/17/18 16:03 02/17/18 16:03 02/17/18 16:03 Intake and Output: 02/17/18 02/18/18 18:59 06:59 Intake Total 500 900 Output Total 300 Balance 500 600 - Medications Medications: Current Medications Acetaminophen (Tylenol 325mg Tab) 650 mg PO Q6 PRN PRN Reason: Fever >100.4 F Last Admin: 01/27/18 03:58 Dose: 650 mg Aspirin (Aspirin Chewable) 81 mg PO DAILY [facility] Last Admin: 02/17/18 10:27 Dose: 81 mg Famotidine (Pepcid) 20 mg PO DAILY [facility] Last Admin: 02/17/18 10:27 Dose: 20 mg Dextrose (Dextrose 5% In Water 1000 Ml) 1,000 mls @ 50 mls/hr IV .Q20H [facility] Last Admin: 02/17/18 21:30 Dose: 50 mls/hr Meropenem 500 mg/ Sodium (Chloride) 100 mls @ 100 mls/hr IVPB DAILY [facility]; Protocol Last Admin: 02/17/18 10:29 Dose: 100 mls/hr Daptomycin 400 mg/ Sodium (Chloride) 100 mls @ 100 mls/hr IV MWF [facility]; Protocol Stop: 02/23/18 09:01 Insulin Aspart (Novolog) 0 unit SC Q6 [facility]; Protocol Last Admin: 02/17/18 18:18 Dose: 4 units Insulin Detemir (Levemir) 10 unit SC HS [facility] Last Admin: 02/17/18 22:08 Dose: 10 units Metoprolol Succinate (Toprol Xl) 25 mg PO BID [facility] Last Admin: 02/17/18 17:08 Dose: 25 mg Tamsulosin HCl (Flomax) 0.4 mg PO DAILY [facility] Last Admin: 02/17/18 10:28 Dose: 0.4 mg - Labs Labs: 02/17/18 10:48 02/17/18 10:48 PT 14.1 SECONDS (9.7-12.2) H 01/31/18 08:01 INR 1.3 01/31/18 08:01 APTT 30 SECONDS (21-34) 01/13/18 17:42
--- NOTE | 2018-02-17 23:12 | CARD ---
APPROVED REPORT Date of service: 02/16/2018 EKG Measurement Heart [id number] P260 [id number] <Conclusion> Atrial flutter with 2:[address] abnormality, possible inferior subendocardial injury Abnormal ECG
--- NOTE | 2018-02-18 00:10 | CP.PCM.PN ---
Subjective - Date & Time of Evaluation Date of Evaluation: 02/17/18 Time of Evaluation: 13:05 - Subjective Subjective: Patient seen and evaluated Not in distress Physical Exam - Constitutional Appears: Well - Head Exam Head Exam: ATRAUMATIC - ENT Exam ENT Exam: Mucous Membranes Moist - Respiratory Exam Respiratory Exam: Clear to Auscultation Bilateral - Cardiovascular Exam Cardiovascular Exam: Irregular Rhythm, +S1, +S2. absent: Systolic Murmur - GI/Abdominal Exam GI & Abdominal Exam: Soft. absent: Tenderness - Psychiatric Exam Psychiatric exam: Flat Affect - Skin Skin Exam: Warm - Impressions Impression: EKG: atrial flutter versus 2:1 atrial tachycardia, NSST's Assessment & Plan - Assessment and Plan (Free Text) Assessment: EP consult appreciated 1. Persistent atrial flutter/atrial tachycardia with RVR -- Being driven by underlying MRSA sepsis 2. Severe LV dysfunction EF 20-25% 3. MRSA sepsis 4. JOY with hydronephrosis 5. Hyponatremia 6. Hyperkalemia Medical management Objective - Vital Signs/Intake and Output Vital Signs (last 24 hours): Temp Pulse Resp BP Pulse Ox 98.4 F 145 H 20 119/74 95 02/17/18 16:03 02/17/18 18:00 02/17/18 16:03 02/17/18 16:03 02/17/18 16:03 Intake and Output: 02/17/18 02/18/18 18:59 06:59 Intake Total 500 900 Output Total 300 Balance 500 600 - Medications Medications: Current Medications Acetaminophen (Tylenol 325mg Tab) 650 mg PO Q6 PRN PRN Reason: Fever >100.4 F Last Admin: 01/27/18 03:58 Dose: 650 mg Aspirin (Aspirin Chewable) 81 mg PO DAILY [facility] Last Admin: 02/17/18 10:27 Dose: 81 mg Famotidine (Pepcid) 20 mg PO DAILY [facility] Last Admin: 02/17/18 10:27 Dose: 20 mg Dextrose (Dextrose 5% In Water 1000 Ml) 1,000 mls @ 50 mls/hr IV .Q20H [facility] Last Admin: 02/17/18 21:30 Dose: 50 mls/hr Meropenem 500 mg/ Sodium (Chloride) 100 mls @ 100 mls/hr IVPB DAILY [facility]; Protocol Last Admin: 02/17/18 10:29 Dose: 100 mls/hr Daptomycin 400 mg/ Sodium (Chloride) 100 mls @ 100 mls/hr IV MWF [facility]; Protocol Stop: 02/23/18 09:01 Insulin Aspart (Novolog) 0 unit SC Q6 [facility]; Protocol Last Admin: 02/17/18 18:18 Dose: 4 units Insulin Detemir (Levemir) 10 unit SC HS [facility] Last Admin: 02/17/18 22:08 Dose: 10 units Metoprolol Succinate (Toprol Xl) 25 mg PO BID [facility] Last Admin: 02/17/18 17:08 Dose: 25 mg Tamsulosin HCl (Flomax) 0.4 mg PO DAILY [facility] Last Admin: 02/17/18 10:28 Dose: 0.4 mg - Labs Labs: 02/17/18 10:48 02/17/18 10:48 PT 14.1 SECONDS (9.7-12.2) H 01/31/18 08:01 INR 1.3 01/31/18 08:01 APTT 30 SECONDS (21-34) 01/13/18 17:42
--- NOTE | 2018-02-18 00:13 | PN ---
DATE: 02/17/2018 SUBJECTIVE: The patient was placed on meropenem as well as Cubicin. He still remains confused. He does not allow much of exam. He remains with tachycardia. I have not seen any problems. He does have discussed with DIE SIZER. He would be best to place ureteral stent or percutaneous nephrostomy for urinary obstruction. They are trying to get it placed by IR as he is still having Staph aureus in the blood, we are not able to clear it. Urology is not able to do any definitive procedure, and his blood culture now again is positive. He has had persistent bacteremia which we are not able to clear. He, however, has no fever right now but heart rate is 129, blood pressure 119/74, respirations are 20. OBJECTIVE: HEAD: Atraumatic, normocephalic. GENERAL: He is confused. Does not allow much of exam. NECK: Supple. LUNGS: However, clear. HEART: S1, S2 tachycardic. ABDOMEN: Remains with a colostomy bag. EXTREMITIES: Remain with dry skin and pressure decubiti on the lateral malleolus. CAT scan of the lower abdomen showed there is an exophytic cyst arising from the anterolateral cortex of the upper mid pole of left kidney, maybe that is carbuncle with Staph aureus in it, I am not sure. I am not able to go further only with antibiotics. He does need some definitive procedures to be done. I have done EMILIANO, bone scan, and he has persistent bacteremia. Blood cultures are now still positive with GBCs. We will continue with Cubicin and Merrem. Cannot give him gentamicin or aminoglycosides as creatinine is still elevated. Labs today shows white count is 12.1, hemoglobin 8.8, hematocrit 27.8, platelet count is 512, BUN is 106, creatinine 4.3, so he remains with persistent septicemia, unable to clear. I think the problem lies in the system, the kidneys, and we will follow. Teresa Barnett MD
[2018-02-18] MEDS: (Novolog) Insulin Aspart, Recombinant 100 u/ml 10 ml vial SC SCH ×4 (00:18→19:01)
[2018-02-18 07:45] LABS: HEMOGLOBIN 7.8 g/dL (12.0-18.0); MEAN CELL VOLUME 88.1 fL (80.0-94.0); MEAN CORPUSCULAR HEMOGLOBIN 28.6 pg (27.0-31.0); MEAN CORPUSCULAR HGB CONC 32.4 g/dL (33.0-37.0); MEAN PLATELET VOLUME 7.7 fL (7.2-11.7); RBC 2.73 Mil/uL (4.40-5.90); RED CELL DISTRIBUTION WIDTH 16.7 % (11.5-14.5); WHITE BLOOD COUNT 11.8 K/uL (4.8-10.8)
[2018-02-18 08:02] LABS: ALB/GLOB RATIO 0.7 (1.0-2.1); ALBUMIN 3.6 g/dL (3.5-5.0); CALCIUM 9.9 mg/dl (8.6-10.4)
[2018-02-18] MEDS: Meropenem 500 MG in Sodium Chloride 0.9% 100 ML IVPB SCH (10:55)
[2018-02-18] MEDS ORDERED: Sodium Chloride 0.9% 500 ML IV SCH (11:00)
[2018-02-18] MEDS: Metoprolol Succinate 25 mg XL Tab PO SCH ×2 (11:30→18:30)
--- NOTE | 2018-02-18 13:55 | CP.PCM.PN ---
Subjective - Date & Time of Evaluation Date of Evaluation: 02/18/18 Time of Evaluation: 07:45 - Subjective Subjective: clinically same Objective - Vital Signs/Intake and Output Vital Signs (last 24 hours): Temp Pulse Resp BP Pulse Ox 97.4 F L 139 H 20 96/62 L 95 02/18/18 07:00 02/18/18 07:40 02/18/18 07:00 02/18/18 07:00 02/18/18 07:00 Intake and Output: 02/18/18 02/18/18 06:59 18:59 Intake Total 1300 Output Total 1050 Balance 250 - Medications Medications: Current Medications Acetaminophen (Tylenol 325mg Tab) 650 mg PO Q6 PRN PRN Reason: Fever >100.4 F Last Admin: 01/27/18 03:58 Dose: 650 mg Aspirin (Aspirin Chewable) 81 mg PO DAILY [facility] Last Admin: 02/18/18 10:55 Dose: 81 mg Famotidine (Pepcid) 20 mg PO DAILY [facility] Last Admin: 02/18/18 10:55 Dose: 20 mg Dextrose (Dextrose 5% In Water 1000 Ml) 1,000 mls @ 50 mls/hr IV .Q20H [facility] Last Admin: 02/18/18 06:15 Dose: Not Given Meropenem 500 mg/ Sodium (Chloride) 100 mls @ 100 mls/hr IVPB DAILY [facility]; Protocol Last Admin: 02/18/18 10:55 Dose: 100 mls/hr Daptomycin 400 mg/ Sodium (Chloride) 100 mls @ 100 mls/hr IV MWF [facility]; Protocol Stop: 02/23/18 09:01 Last Admin: 02/18/18 09:30 Dose: 100 mls/hr Sodium Chloride (Sodium Chloride 0.9%) 500 mls @ 500 mls/hr IV .Q1H [facility] Last Admin: 02/18/18 11:00 Dose: 500 mls/hr Ferric Sodium Gluconate Complex 125 mg/ Sodium Chloride 110 mls @ 110 mls/hr IVPB DAILY [facility] Stop: 02/27/18 10:01 Ferric Sodium Gluconate Complex 125 mg/ Sodium Chloride 110 mls @ 105 mls/hr IVPB DAILY [facility] Stop: 02/23/18 11:03 Insulin Aspart (Novolog) 0 unit SC Q6 [facility]; Protocol Last Admin: 10/05/18 12:57 Dose: 3 units Insulin Detemir (Levemir) 10 unit SC [facility] Last Admin: 02/17/18 22:08 Dose: 10 units Metoprolol Succinate (Toprol Xl) 25 mg PO BID [facility] Last Admin: 02/18/18 11:30 Dose: Not Given Tamsulosin HCl (Flomax) 0.4 mg PO DAILY [facility] Last Admin: 02/18/18 10:55 Dose: 0.4 mg - Labs Labs: 02/18/18 07:20 02/18/18 07:20 PT 14.1 SECONDS (9.7-12.2) H 01/31/18 08:01 INR 1.3 01/31/18 08:01 APTT 30 SECONDS (21-34) 01/13/18 17:42 - Constitutional Appears: Well - Head Exam Head Exam: ATRAUMATIC, NORMAL INSPECTION, NORMOCEPHALIC - Eye Exam Eye Exam: EOMI, Normal appearance, PERRL Pupil Exam: NORMAL ACCOMODATION, PERRL - ENT Exam ENT Exam: Mucous Membranes Moist, Normal Exam - Neck Exam Neck Exam: Full ROM, Normal Inspection. absent: Lymphadenopathy - Respiratory Exam Respiratory Exam: Decreased Breath Sounds - Cardiovascular Exam Cardiovascular Exam: REGULAR RHYTHM, +S1, +S2 - GI/Abdominal Exam GI & Abdominal Exam: Soft, Diminished Bowel Sounds - Rectal Exam Rectal Exam: Deferred Assessment and Plan (1) JOY (acute kidney injury) Status: Acute (2) Change in mental status Status: Acute (3) Electrolyte imbalance Status: Acute (4) MRSA (methicillin resistant Staphylococcus aureus) septicemia Status: Acute (5) NSTEMI (non-ST elevated myocardial infarction) Status: Acute (6) Prophylactic measure Status: Acute (7) UTI (urinary tract infection) Status: Acute (8) CHF (congestive heart failure) Status: Chronic (9) CKD (chronic kidney disease) Status: Chronic (10) Diabetes mellitus Status: Chronic (11) Afib Status: Acute (12) Anemia Status: Acute (13) Bilateral hydronephrosis Status: Acute (14) CKD (chronic kidney disease) stage 4, GFR 15-29 ml/min Status: Acute (15) Metabolic acidosis Status: Acute (16) Dementia Status: Chronic
--- NOTE | 2018-02-18 14:16 | CP.PCM.PN ---
Subjective - Date & Time of Evaluation Date of Evaluation: 02/18/18 Time of Evaluation: 14:12 - Subjective Subjective: confused as before UO- 750ml BUN, creat elevated-increasing Consideration for PNT for urinary obstruction- on hold K also elevated Na levels improved on D5W fluids Objective - Vital Signs/Intake and Output Vital Signs (last 24 hours): Temp Pulse Resp BP Pulse Ox 97.4 F L 140 H 20 96/62 L 95 02/18/18 07:00 02/18/18 12:00 02/18/18 07:00 02/18/18 07:00 02/18/18 07:00 Intake and Output: 02/18/18 02/18/18 06:59 18:59 Intake Total 1300 Output Total 1050 Balance 250 - Medications Medications: Current Medications Acetaminophen (Tylenol 325mg Tab) 650 mg PO Q6 PRN PRN Reason: Fever >100.4 F Last Admin: 01/27/18 03:58 Dose: 650 mg Aspirin (Aspirin Chewable) 81 mg PO DAILY [facility] Last Admin: 02/18/18 10:55 Dose: 81 mg Famotidine (Pepcid) 20 mg PO DAILY [facility] Last Admin: 02/18/18 10:55 Dose: 20 mg Dextrose (Dextrose 5% In Water 1000 Ml) 1,000 mls @ 50 mls/hr IV .Q20H [facility] Last Admin: 02/18/18 06:15 Dose: Not Given Meropenem 500 mg/ Sodium (Chloride) 100 mls @ 100 mls/hr IVPB DAILY [facility]; Protocol Last Admin: 02/18/18 10:55 Dose: 100 mls/hr Daptomycin 400 mg/ Sodium (Chloride) 100 mls @ 100 mls/hr IV MWF [facility]; Protocol Stop: 02/23/18 09:01 Last Admin: 02/18/18 09:30 Dose: 100 mls/hr Sodium Chloride (Sodium Chloride 0.9%) 500 mls @ 500 mls/hr IV .Q1H [facility] Last Admin: 02/18/18 11:00 Dose: 500 mls/hr Ferric Sodium Gluconate Complex 125 mg/ Sodium Chloride 110 mls @ 110 mls/hr IVPB DAILY [facility] Stop: 02/27/18 10:01 Ferric Sodium Gluconate Complex 125 mg/ Sodium Chloride 110 mls @ 105 mls/hr IVPB DAILY [facility] Stop: 02/23/18 11:03 Insulin Aspart (Novolog) 0 unit SC Q6 [facility]; Protocol Last Admin: 02/18/18 12:57 Dose: 3 units Insulin Detemir (Levemir) 10 unit SC HS [facility] Last Admin: 02/17/18 22:08 Dose: 10 units Metoprolol Succinate (Toprol Xl) 25 mg PO BID [facility] Last Admin: 02/18/18 11:30 Dose: Not Given Tamsulosin HCl (Flomax) 0.4 mg PO DAILY [facility] Last Admin: 02/18/18 10:55 Dose: 0.4 mg - Labs Labs: 02/18/18 07:20 02/18/18 07:20 PT 14.1 SECONDS (9.7-12.2) H 01/31/18 08:01 INR 1.3 01/31/18 08:01 APTT 30 SECONDS (21-34) 01/13/18 17:42 - Constitutional Appears: No Acute Distress, Chronically Ill - Head Exam Head Exam: ATRAUMATIC, NORMAL INSPECTION - Eye Exam Eye Exam: EOMI, Normal appearance - Neck Exam Neck Exam: Normal Inspection. absent: Tenderness - Respiratory Exam Respiratory Exam: Clear to Ausculation Bilateral, NORMAL BREATHING PATTERN - Cardiovascular Exam Cardiovascular Exam: Tachycardia, Irregular Rhythm - GI/Abdominal Exam GI & Abdominal Exam: Soft. absent: Tenderness - Extremities Exam Extremities Exam: Normal Inspection. absent: Tenderness - Neurological Exam Neurological Exam: Altered - Skin Skin Exam: Dry, Warm Assessment and Plan (1) JOY (acute kidney injury) Status: Acute (2) Change in mental status Status: Acute (3) Diabetes mellitus Status: Chronic (4) Bilateral hydronephrosis Status: Acute - Assessment and Plan (Free Text) Plan: Change to 1/2NS fluids Treat hyperkalemia consideration of ureteral stent should be considered PNT next best option IV ABs Treastment of RVR as per cardio
[2018-02-18] MEDS: Sodium Chloride 0.45% 1,000 ML IV SCH (15:55)
[2018-02-18] MEDS: Sod Polystyrene Sulf 15 gm/60 ml Susp PO SCH (16:59)
--- NOTE | 2018-02-18 17:32 | CP.PCM.PN ---
Subjective - Date & Time of Evaluation Date of Evaluation: 02/18/18 Time of Evaluation: 16:00 - Subjective Subjective: dictated Objective - Vital Signs/Intake and Output Vital Signs (last 24 hours): Temp Pulse Resp BP Pulse Ox 97.9 F 119 H 22 102/59 L 95 02/18/18 15:00 02/18/18 15:00 02/18/18 15:00 02/18/18 15:00 02/18/18 15:00 Intake and Output: 02/18/18 02/18/18 06:59 18:59 Intake Total 1300 Output Total 1050 Balance 250 - Medications Medications: Current Medications Acetaminophen (Tylenol 325mg Tab) 650 mg PO Q6 PRN PRN Reason: Fever >100.4 F Last Admin: 01/27/18 03:58 Dose: 650 mg Aspirin (Aspirin Chewable) 81 mg PO DAILY [facility] Last Admin: 02/18/18 10:55 Dose: 81 mg Famotidine (Pepcid) 20 mg PO DAILY [facility] Last Admin: 02/18/18 10:55 Dose: 20 mg Meropenem 500 mg/ Sodium (Chloride) 100 mls @ 100 mls/hr IVPB DAILY [facility]; Protocol Last Admin: 02/18/18 10:55 Dose: 100 mls/hr Daptomycin 400 mg/ Sodium (Chloride) 100 mls @ 100 mls/hr IV MWF [facility]; Protocol Stop: 02/23/18 09:01 Last Admin: 02/18/18 09:30 Dose: 100 mls/hr Sodium Chloride (Sodium Chloride 0.9%) 500 mls @ 500 mls/hr IV .Q1H [facility] Last Admin: 02/18/18 11:00 Dose: 500 mls/hr Ferric Sodium Gluconate Complex 125 mg/ Sodium Chloride 110 mls @ 110 mls/hr IVPB DAILY [facility] Stop: 02/27/18 10:01 Ferric Sodium Gluconate Complex 125 mg/ Sodium Chloride 110 mls @ 105 mls/hr IVPB DAILY [facility] Stop: 02/23/18 11:03 Sodium Chloride (Sodium Chloride 0.45%) 1,000 mls @ 75 mls/hr IV .[id number] [facility] Insulin Aspart (Novolog) 0 unit SC Q6 [facility]; Protocol Last Admin: 02/18/18 12:57 Dose: 3 units Insulin Detemir (Levemir) 10 unit SC HS [facility] Last Admin: 02/17/18 22:08 Dose: 10 units Metoprolol Succinate (Toprol Xl) 25 mg PO BID [facility] Last Admin: 02/18/18 11:30 Dose: Not Given Sodium Polystyrene Sulfonate (Kayexalate Susp) 15 gm PO DAILY [facility] Last Admin: 02/18/18 16:59 Dose: 15 gm Tamsulosin HCl (Flomax) 0.4 mg PO DAILY [facility] Last Admin: 02/18/18 10:55 Dose: 0.4 mg - Labs Labs: 02/18/18 07:20 02/18/18 07:20 PT 14.1 SECONDS (9.7-12.2) H 01/31/18 08:01 INR 1.3 01/31/18 08:01 APTT 30 SECONDS (21-34) 01/13/18 17:42
[2018-02-18] MEDS: Insulin Detemir 100 units/ml Vial (Levemir) SC SCH (21:36)
--- NOTE | 2018-02-18 23:01 | PN ---
DATE: 02/18/2018 INFECTIOUS DISEASE FOLLOWUP SUBJECTIVE: The patient remains confused. He does not let us touch him. They want to get blood but unable to draw at this time. He lays confused but he is combative and has mittens on; and does not want any interference. PHYSICAL EXAMINATION: VITAL SIGNS: His heart rate is 119, blood pressure 102/59, respirations are 20. HEENT: Head is atraumatic, normocephalic. NECK: Supple. LUNGS: Clear. HEART: S1, S2 tachycardic. ABDOMEN: Has a colostomy bag. EXTREMITIES: Have dryness on the skin and pressure decubitus on lateral malleolus. The patient gives hard time and still methicillin-resistant Staphylococcus aureus came out. He has irregular tachycardia and irregularly irregular heart rate and has persistent Staphylococcus aureus. Dr. Jean wrote that nephrostomy tube can be placed by IR, best would be to have a ureteral stent of percutaneous nephrostomy for urinary obstruction. So all these things need to be taken care of because of his mental status and quality of life. He is made hospice. I approached to Dr. Leticia Hernandes, and he is going to find out from the POA for now, Telavancin on the days when I am not giving him Cubicin as it is alternate days, the patient remains with persistent bacteremia with methicillin-resistant Staphylococcus aureus and is in isolation. Infectious disease and sensitivity of the repeat cultures is pending but I safely think that it is the same bacteria which is not clearing. Probably needs a surgical intervention. Teresa Barnett MD
[2018-02-19] MEDS: (Novolog) Insulin Aspart, Recombinant 100 u/ml 10 ml vial SC SCH ×4 (00:19→20:41)
[2018-02-19] MEDS: Sodium Chloride 0.45% 1,000 ML IV SCH ×3 (07:39→17:10)
[2018-02-19 07:46] LABS: ALB/GLOB RATIO 0.7 (1.0-2.1); ALBUMIN 3.4 g/dL (3.5-5.0); CALCIUM 9.5 mg/dl (8.6-10.4)
--- NOTE | 2018-02-19 09:49 | CP.PCM.PN ---
Subjective - Date & Time of Evaluation Date of Evaluation: 02/19/18 Time of Evaluation: 09:46 - Subjective Subjective: in bed, no distress non verbal lethargic on iv fluids ROS- unable to obtain as non verbal Objective - Vital Signs/Intake and Output Vital Signs (last 24 hours): Temp Pulse Resp BP Pulse Ox 97.5 F L 137 H 20 96/65 L 95 02/19/18 08:17 02/19/18 08:17 02/19/18 08:17 02/19/18 08:17 02/19/18 08:17 Intake and Output: 02/19/18 02/19/18 06:59 18:59 Intake Total 325 Output Total 350 Balance -25 - Medications Medications: Current Medications Acetaminophen (Tylenol 325mg Tab) 650 mg PO Q6 PRN PRN Reason: Fever >100.4 F Last Admin: 01/27/18 03:58 Dose: 650 mg Aspirin (Aspirin Chewable) 81 mg PO DAILY [facility] Last Admin: 02/18/18 10:55 Dose: 81 mg Famotidine (Pepcid) 20 mg PO DAILY [facility] Last Admin: 02/18/18 10:55 Dose: 20 mg Meropenem 500 mg/ Sodium (Chloride) 100 mls @ 100 mls/hr IVPB DAILY [facility]; Protocol Last Admin: 02/18/18 10:55 Dose: 100 mls/hr Daptomycin 400 mg/ Sodium (Chloride) 100 mls @ 100 mls/hr IV MWF [facility]; Protocol Stop: 02/23/18 09:01 Last Admin: 02/18/18 09:30 Dose: 100 mls/hr Ferric Sodium Gluconate Complex 125 mg/ Sodium Chloride 110 mls @ 105 mls/hr IVPB DAILY [facility] Stop: 02/23/18 11:03 Sodium Chloride (Sodium Chloride 0.45%) 1,000 mls @ 75 mls/hr IV .[id number] [facility] Last Admin: 02/19/18 07:39 Dose: Not Given Telavancin 650 mg/ Dextrose 100 mls @ 100 mls/hr IVPB TTS [facility]; Protocol Insulin Aspart (Novolog) 0 unit SC Q6 [facility]; Protocol Last Admin: 02/19/18 07:40 Dose: Not Given Insulin Detemir (Levemir) 10 unit SC HS [facility] Last Admin: 02/18/18 21:36 Dose: Not Given Metoprolol Succinate (Toprol Xl) 25 mg PO BID [facility] Last Admin: 02/18/18 18:30 Dose: 25 mg Sodium Polystyrene Sulfonate (Kayexalate Susp) 15 gm PO DAILY [facility] Last Admin: 02/18/18 16:59 Dose: 15 gm Tamsulosin HCl (Flomax) 0.4 mg PO DAILY [facility] Last Admin: 02/18/18 10:55 Dose: 0.4 mg - Labs Labs: 02/18/18 07:20 02/19/18 06:44 PT 14.1 SECONDS (9.7-12.2) H 01/31/18 08:01 INR 1.3 01/31/18 08:01 APTT 30 SECONDS (21-34) 01/13/18 17:42 - Constitutional Appears: Confused, Chronically Ill - Head Exam Head Exam: ATRAUMATIC, NORMOCEPHALIC - Eye Exam Eye Exam: PERRL - ENT Exam ENT Exam: Mucous Membranes Dry - Neck Exam Neck Exam: absent: Lymphadenopathy - Respiratory Exam Respiratory Exam: Clear to Ausculation Bilateral. absent: Rhonchi, Wheezes - Cardiovascular Exam Cardiovascular Exam: REGULAR RHYTHM, +S1, +S2 - GI/Abdominal Exam GI & Abdominal Exam: Soft Additional comments: winces on supra pubic palpation - Extremities Exam Extremities Exam: absent: Pedal Edema - Neurological Exam Neurological Exam: absent: Alert, Awake, Oriented x3 - Skin Skin Exam: Dry, Warm Assessment and Plan (1) JOY (acute kidney injury) Status: Acute (2) UTI (urinary tract infection) Status: Acute (3) CKD (chronic kidney disease) Status: Chronic (4) Bilateral hydronephrosis Status: Acute - Assessment and Plan (Free Text) Plan: renal function slightly better continue with low rate fluids as poor po intake would benefit with nephrostomy tube await urology follow up
[2018-02-19] MEDS ORDERED: Ferric Sodium Gluconat Complex 62.5 mg/5 ml Vial IVPB SCH (10:00)
[2018-02-19] MEDS ORDERED: Ferric Sodium Gluconat Complex 125 MG in Sodium Chloride 0.9% 100 ML IVPB SCH (10:00)
[2018-02-19] MEDS: Ferric Sodium Gluconat Complex 125 MG in Sodium Chloride 0.9% 100 ML IVPB SCH (10:22)
[2018-02-19 10:25] LABS: HEMOGLOBIN 9.1 g/dL (12.0-18.0); MEAN CELL VOLUME 89.2 fL (80.0-94.0); MEAN CORPUSCULAR HEMOGLOBIN 28.5 pg (27.0-31.0); MEAN CORPUSCULAR HGB CONC 31.9 g/dL (33.0-37.0); MEAN PLATELET VOLUME 7.4 fL (7.2-11.7); RBC 3.19 Mil/uL (4.40-5.90); RED CELL DISTRIBUTION WIDTH 16.5 % (11.5-14.5)
[2018-02-19] MEDS: TELAVANCIN HYDROCHLORIDE IVPB SCH (10:51)
[2018-02-19] MEDS: WATER IVPB SCH (10:51)
[2018-02-19] MEDS: DEXTROSE 5% IVPB SCH (10:51)
[2018-02-19] MEDS: Sod Polystyrene Sulf 15 gm/60 ml Susp PO SCH (11:06)
[2018-02-19] MEDS: Metoprolol Succinate 25 mg XL Tab PO SCH ×2 (11:06→17:20)
[2018-02-19] MEDS: Meropenem 500 MG in Sodium Chloride 0.9% 100 ML IVPB SCH (11:12)
--- NOTE | 2018-02-19 15:17 | CP.PCM.PN ---
Subjective - Date & Time of Evaluation Date of Evaluation: 02/19/18 Time of Evaluation: 09:00 - Subjective Subjective: clinically same Objective - Vital Signs/Intake and Output Vital Signs (last 24 hours): Temp Pulse Resp BP Pulse Ox 97.5 F L 139 H 20 96/65 L 95 02/19/18 08:17 02/19/18 11:57 02/19/18 08:17 02/19/18 08:17 02/19/18 08:17 Intake and Output: 02/19/18 02/19/18 06:59 18:59 Intake Total 325 Output Total 350 Balance -25 - Medications Medications: Current Medications Acetaminophen (Tylenol 325mg Tab) 650 mg PO Q6 PRN PRN Reason: Fever >100.4 F Last Admin: 01/27/18 03:58 Dose: 650 mg Aspirin (Aspirin Chewable) 81 mg PO DAILY [facility] Last Admin: 02/19/18 10:51 Dose: 81 mg Famotidine (Pepcid) 20 mg PO DAILY [facility] Last Admin: 02/19/18 10:50 Dose: 20 mg Meropenem 500 mg/ Sodium (Chloride) 100 mls @ 100 mls/hr IVPB DAILY [facility]; Protocol Last Admin: 02/19/18 11:12 Dose: 100 mls/hr Daptomycin 400 mg/ Sodium (Chloride) 100 mls @ 100 mls/hr IV MWF [facility]; Protocol Stop: 02/23/18 09:01 Last Admin: 02/18/18 09:30 Dose: 100 mls/hr Ferric Sodium Gluconate Complex 125 mg/ Sodium Chloride 110 mls @ 105 mls/hr IVPB DAILY [facility] Stop: 02/23/18 11:03 Last Admin: 02/19/18 10:22 Dose: 105 mls/hr Sodium Chloride (Sodium Chloride 0.45%) 1,000 mls @ 75 mls/hr IV .[id number] [facility] Last Admin: 02/19/18 10:23 Dose: 75 mls/hr Telavancin 650 mg/ Dextrose 100 mls @ 100 mls/hr IVPB TTS [facility]; Protocol Last Admin: 02/19/18 10:51 Dose: 100 mls/hr Insulin Aspart (Novolog) 0 unit SC Q6 [facility]; Protocol Last Admin: 02/19/18 11:21 Dose: Not Given Insulin Detemir (Levemir) 10 unit SC HS [facility] Last Admin: 02/18/18 21:36 Dose: Not Given Metoprolol Succinate (Toprol Xl) 25 mg PO BID [facility] Last Admin: 02/19/18 11:06 Dose: Not Given Sodium Polystyrene Sulfonate (Kayexalate Susp) 15 gm PO DAILY [facility] Last Admin: 02/19/18 11:06 Dose: 15 gm Tamsulosin HCl (Flomax) 0.4 mg PO DAILY [facility] Last Admin: 02/19/18 10:50 Dose: 0.4 mg - Labs Labs: 02/19/18 10:17 02/19/18 06:44 PT 14.1 SECONDS (9.7-12.2) H 01/31/18 08:01 INR 1.3 01/31/18 08:01 APTT 30 SECONDS (21-34) 01/13/18 17:42 - Constitutional Appears: Well - Head Exam Head Exam: ATRAUMATIC, NORMAL INSPECTION, NORMOCEPHALIC - Eye Exam Eye Exam: EOMI, Normal appearance, PERRL Pupil Exam: NORMAL ACCOMODATION, PERRL - ENT Exam ENT Exam: Mucous Membranes Moist, Normal Exam - Neck Exam Neck Exam: Full ROM, Normal Inspection. absent: Lymphadenopathy - Respiratory Exam Respiratory Exam: Decreased Breath Sounds - Cardiovascular Exam Cardiovascular Exam: REGULAR RHYTHM, +S1, +S2 - GI/Abdominal Exam GI & Abdominal Exam: Soft, Diminished Bowel Sounds - Rectal Exam Rectal Exam: Deferred Assessment and Plan (1) JOY (acute kidney injury) Status: Acute (2) Change in mental status Status: Acute (3) Electrolyte imbalance Status: Acute (4) MRSA (methicillin resistant Staphylococcus aureus) septicemia Status: Acute (5) NSTEMI (non-ST elevated myocardial infarction) Status: Acute (6) Prophylactic measure Status: Acute (7) UTI (urinary tract infection) Status: Acute (8) CHF (congestive heart failure) Status: Chronic (9) CKD (chronic kidney disease) Status: Chronic (10) Diabetes mellitus Status: Chronic (11) Afib Status: Acute (12) Anemia Status: Acute (13) Bilateral hydronephrosis Status: Acute (14) CKD (chronic kidney disease) stage 4, GFR 15-29 ml/min Status: Acute (15) Metabolic acidosis Status: Acute (16) Dementia Status: Chronic
--- NOTE | 2018-02-19 17:03 | CP.PCM.PN ---
Subjective - Date & Time of Evaluation Date of Evaluation: 02/19/18 Time of Evaluation: 14:00 - Subjective Subjective: dictated Objective - Vital Signs/Intake and Output Vital Signs (last 24 hours): Temp Pulse Resp BP Pulse Ox 97.8 F 130 H 18 101/65 96 02/19/18 16:49 02/19/18 16:49 02/19/18 16:49 02/19/18 16:49 02/19/18 16:49 Intake and Output: 02/19/18 02/19/18 06:59 18:59 Intake Total 325 Output Total 350 Balance -25 - Medications Medications: Current Medications Acetaminophen (Tylenol 325mg Tab) 650 mg PO Q6 PRN PRN Reason: Fever >100.4 F Last Admin: 01/27/18 03:58 Dose: 650 mg Aspirin (Aspirin Chewable) 81 mg PO DAILY [facility] Last Admin: 02/19/18 10:51 Dose: 81 mg Famotidine (Pepcid) 20 mg PO DAILY [facility] Last Admin: 02/19/18 10:50 Dose: 20 mg Meropenem 500 mg/ Sodium (Chloride) 100 mls @ 100 mls/hr IVPB DAILY [facility]; Protocol Last Admin: 02/19/18 11:12 Dose: 100 mls/hr Daptomycin 400 mg/ Sodium (Chloride) 100 mls @ 100 mls/hr IV MWF [facility]; Protocol Stop: 02/23/18 09:01 Last Admin: 02/18/18 09:30 Dose: 100 mls/hr Ferric Sodium Gluconate Complex 125 mg/ Sodium Chloride 110 mls @ 105 mls/hr IVPB DAILY [facility] Stop: 02/23/18 11:03 Last Admin: 02/19/18 10:22 Dose: 105 mls/hr Sodium Chloride (Sodium Chloride 0.45%) 1,000 mls @ 75 mls/hr IV .[id number] [facility] Last Admin: 02/19/18 10:23 Dose: 75 mls/hr Telavancin 650 mg/ Dextrose 100 mls @ 100 mls/hr IVPB TTS [facility]; Protocol Last Admin: 02/19/18 10:51 Dose: 100 mls/hr Insulin Aspart (Novolog) 0 unit SC Q6 [facility]; Protocol Last Admin: 02/19/18 11:21 Dose: Not Given Insulin Detemir (Levemir) 10 unit SC HS [facility] Last Admin: 02/18/18 21:36 Dose: Not Given Metoprolol Succinate (Toprol Xl) 25 mg PO BID [facility] Last Admin: 02/19/18 11:06 Dose: Not Given Sodium Polystyrene Sulfonate (Kayexalate Susp) 15 gm PO DAILY [facility] Last Admin: 02/19/18 11:06 Dose: 15 gm Tamsulosin HCl (Flomax) 0.4 mg PO DAILY [facility] Last Admin: 02/19/18 10:50 Dose: 0.4 mg - Labs Labs: 02/19/18 10:17 02/19/18 06:44 PT 14.1 SECONDS (9.7-12.2) H 01/31/18 08:01 INR 1.3 01/31/18 08:01 APTT 30 SECONDS (21-34) 01/13/18 17:42
--- NOTE | 2018-02-19 20:30 | PN ---
DATE: 02/19/2018 SUBJECTIVE: The patient remains lethargic, unresponsive confused. He remains with his mittens. PHYSICAL EXAMINATION: VITAL SIGNS: T-max is 97.8, heart rate of 130, blood pressure 101/65, respirations are 18. HEENT: Head is atraumatic. NECK: Supple. LUNGS: Clear. HEART: Tachycardia. ABDOMEN: Has a colostomy bag. He wears diapers. EXTREMITIES: Have no edema. ASSESSMENT AND PLAN: Has had persistent Staphylococcus aureus and this is methicillin-resistant Staphylococcus aureus which has persisted. He does have bilateral hydronephrosis and he has cardiac issues, but he needs procedures to be done, otherwise, he is going to not make it through these persistent bacteremia. He is and probably we are looking for bilateral nephrostomy tubes or we need to make him hospice. This matter needs to be discussed with the POA. At this time, he is on Cubicin and Telavancin and remains with renal failure and dehydration and prognosis is very, very poor. Teresa Barnett MD
[2018-02-19] MEDS: Insulin Detemir 100 units/ml Vial (Levemir) SC SCH (21:55)
--- NOTE | 2018-02-19 22:56 | CP.PCM.PN ---
Subjective - Date & Time of Evaluation Date of Evaluation: 02/18/18 Time of Evaluation: 19:30 - Subjective Subjective: Patient seen and evaluated Not in distress Physical Exam - Constitutional Appears: Well - Head Exam Head Exam: ATRAUMATIC - ENT Exam ENT Exam: Mucous Membranes Moist - Respiratory Exam Respiratory Exam: Clear to Auscultation Bilateral - Cardiovascular Exam Cardiovascular Exam: Irregular Rhythm, +S1, +S2. absent: Systolic Murmur - GI/Abdominal Exam GI & Abdominal Exam: Soft. absent: Tenderness - Psychiatric Exam Psychiatric exam: Flat Affect - Skin Skin Exam: Warm - Impressions Impression: EKG: atrial flutter versus 2:1 atrial tachycardia, NSST's Assessment & Plan - Assessment and Plan (Free Text) Assessment: EP consult appreciated 1. Persistent atrial flutter/atrial tachycardia with RVR -- Being driven by underlying MRSA sepsis 2. Severe LV dysfunction EF 20-25% 3. MRSA sepsis 4. JOY with hydronephrosis 5. Hyponatremia 6. Hyperkalemia Medical management Objective - Vital Signs/Intake and Output Vital Signs (last 24 hours): Temp Pulse Resp BP Pulse Ox 97.8 F 130 H 18 101/65 96 02/19/18 16:49 02/19/18 16:49 02/19/18 16:49 02/19/18 16:49 02/19/18 16:49 - Medications Medications: Current Medications Acetaminophen (Tylenol 325mg Tab) 650 mg PO Q6 PRN PRN Reason: Fever >100.4 F Last Admin: 01/27/18 03:58 Dose: 650 mg Aspirin (Aspirin Chewable) 81 mg PO DAILY [facility] Last Admin: 02/19/18 10:51 Dose: 81 mg Famotidine (Pepcid) 20 mg PO DAILY [facility] Last Admin: 02/19/18 10:50 Dose: 20 mg Meropenem 500 mg/ Sodium (Chloride) 100 mls @ 100 mls/hr IVPB DAILY [facility]; Protocol Last Admin: 02/19/18 11:12 Dose: 100 mls/hr Daptomycin 400 mg/ Sodium (Chloride) 100 mls @ 100 mls/hr IV MWF [facility]; Protocol Stop: 02/23/18 09:01 Last Admin: 02/18/18 09:30 Dose: 100 mls/hr Ferric Sodium Gluconate Complex 125 mg/ Sodium Chloride 110 mls @ 105 mls/hr IVPB DAILY [facility] Stop: 02/23/18 11:03 Last Admin: 02/19/18 10:22 Dose: 105 mls/hr Sodium Chloride (Sodium Chloride 0.45%) 1,000 mls @ 75 mls/hr IV .[id number] [facility] Last Admin: 02/19/18 17:10 Dose: Not Given Telavancin 650 mg/ Dextrose 100 mls @ 100 mls/hr IVPB TTS [facility]; Protocol Last Admin: 02/19/18 10:51 Dose: 100 mls/hr Insulin Aspart (Novolog) 0 unit SC Q6 [facility]; Protocol Last Admin: 02/19/18 20:41 Dose: Not Given Insulin Detemir (Levemir) 10 unit SC HS [facility] Last Admin: 02/19/18 21:55 Dose: Not Given Metoprolol Succinate (Toprol Xl) 25 mg PO BID [facility] Last Admin: 02/19/18 17:20 Dose: Not Given Sodium Polystyrene Sulfonate (Kayexalate Susp) 15 gm PO DAILY [facility] Last Admin: 02/19/18 11:06 Dose: 15 gm Tamsulosin HCl (Flomax) 0.4 mg PO DAILY [facility] Last Admin: 02/19/18 10:50 Dose: 0.4 mg - Labs Labs: 02/19/18 10:17 02/19/18 06:44 PT 14.1 SECONDS (9.7-12.2) H 01/31/18 08:01 INR 1.3 01/31/18 08:01 APTT 30 SECONDS (21-34) 01/13/18 17:42
--- NOTE | 2018-02-19 22:57 | CP.PCM.PN ---
Subjective - Date & Time of Evaluation Date of Evaluation: 02/19/18 Time of Evaluation: 18:35 - Subjective Subjective: Patient seen and evaluated Not in distress Physical Exam - Constitutional Appears: Well - Head Exam Head Exam: ATRAUMATIC - ENT Exam ENT Exam: Mucous Membranes Moist - Respiratory Exam Respiratory Exam: Clear to Auscultation Bilateral - Cardiovascular Exam Cardiovascular Exam: Irregular Rhythm, +S1, +S2. absent: Systolic Murmur - GI/Abdominal Exam GI & Abdominal Exam: Soft. absent: Tenderness - Psychiatric Exam Psychiatric exam: Flat Affect - Skin Skin Exam: Warm - Impressions Impression: EKG: atrial flutter versus 2:1 atrial tachycardia, NSST's Assessment & Plan - Assessment and Plan (Free Text) Assessment: EP consult appreciated 1. Persistent atrial flutter/atrial tachycardia with RVR -- Being driven by underlying MRSA sepsis 2. Severe LV dysfunction EF 20-25% 3. MRSA sepsis 4. JOY with hydronephrosis 5. Hyponatremia 6. Hyperkalemia Medical management Objective - Vital Signs/Intake and Output Vital Signs (last 24 hours): Temp Pulse Resp BP Pulse Ox 97.8 F 130 H 18 101/65 96 02/19/18 16:49 02/19/18 16:49 02/19/18 16:49 02/19/18 16:49 02/19/18 16:49 - Medications Medications: Current Medications Acetaminophen (Tylenol 325mg Tab) 650 mg PO Q6 PRN PRN Reason: Fever >100.4 F Last Admin: 01/27/18 03:58 Dose: 650 mg Aspirin (Aspirin Chewable) 81 mg PO DAILY [facility] Last Admin: 02/19/18 10:51 Dose: 81 mg Famotidine (Pepcid) 20 mg PO DAILY [facility] Last Admin: 02/19/18 10:50 Dose: 20 mg Meropenem 500 mg/ Sodium (Chloride) 100 mls @ 100 mls/hr IVPB DAILY [facility]; Protocol Last Admin: 02/19/18 11:12 Dose: 100 mls/hr Daptomycin 400 mg/ Sodium (Chloride) 100 mls @ 100 mls/hr IV MWF [facility]; Protocol Stop: 02/23/18 09:01 Last Admin: 02/18/18 09:30 Dose: 100 mls/hr Ferric Sodium Gluconate Complex 125 mg/ Sodium Chloride 110 mls @ 105 mls/hr IVPB DAILY [facility] Stop: 02/23/18 11:03 Last Admin: 02/19/18 10:22 Dose: 105 mls/hr Sodium Chloride (Sodium Chloride 0.45%) 1,000 mls @ 75 mls/hr IV .[id number] [facility] Last Admin: 02/19/18 17:10 Dose: Not Given Telavancin 650 mg/ Dextrose 100 mls @ 100 mls/hr IVPB TTS [facility]; Protocol Last Admin: 02/19/18 10:51 Dose: 100 mls/hr Insulin Aspart (Novolog) 0 unit SC Q6 [facility]; Protocol Last Admin: 02/19/18 20:41 Dose: Not Given Insulin Detemir (Levemir) 10 unit SC HS [facility] Last Admin: 02/19/18 21:55 Dose: Not Given Metoprolol Succinate (Toprol Xl) 25 mg PO BID [facility] Last Admin: 02/19/18 17:20 Dose: Not Given Sodium Polystyrene Sulfonate (Kayexalate Susp) 15 gm PO DAILY [facility] Last Admin: 02/19/18 11:06 Dose: 15 gm Tamsulosin HCl (Flomax) 0.4 mg PO DAILY [facility] Last Admin: 02/19/18 10:50 Dose: 0.4 mg - Labs Labs: 02/19/18 10:17 02/19/18 06:44 PT 14.1 SECONDS (9.7-12.2) H 01/31/18 08:01 INR 1.3 01/31/18 08:01 APTT 30 SECONDS (21-34) 01/13/18 17:42
[2018-02-20] MEDS: (Novolog) Insulin Aspart, Recombinant 100 u/ml 10 ml vial SC SCH ×4 (00:41→21:26)
[2018-02-20] MEDS: Sodium Chloride 0.45% 1,000 ML IV SCH ×3 (03:11→21:27)
[2018-02-20 08:30] LABS: ALB/GLOB RATIO 0.7 (1.0-2.1); ALBUMIN 3.3 g/dL (3.5-5.0); CALCIUM 9.2 mg/dl (8.6-10.4)
[2018-02-20] MEDS: Sod Polystyrene Sulf 15 gm/60 ml Susp PO SCH (10:43)
[2018-02-20] MEDS: Meropenem 500 MG in Sodium Chloride 0.9% 100 ML IVPB SCH (10:44)
[2018-02-20] MEDS: Metoprolol Succinate 25 mg XL Tab PO SCH ×2 (10:44→17:17)
[2018-02-20] MEDS: Ferric Sodium Gluconat Complex 125 MG in Sodium Chloride 0.9% 100 ML IVPB SCH (13:00)
--- NOTE | 2018-02-20 14:29 | CP.PCM.PN ---
Subjective - Date & Time of Evaluation Date of Evaluation: 02/20/18 Time of Evaluation: 08:30 - Subjective Subjective: clinically same Objective - Vital Signs/Intake and Output Vital Signs (last 24 hours): Temp Pulse Resp BP Pulse Ox 96.3 F L 139 H 20 111/70 98 02/20/18 07:25 02/20/18 07:25 02/20/18 07:25 02/20/18 07:25 02/20/18 07:25 - Medications Medications: Current Medications Acetaminophen (Tylenol 325mg Tab) 650 mg PO Q6 PRN PRN Reason: Fever >100.4 F Last Admin: 01/27/18 03:58 Dose: 650 mg Aspirin (Aspirin Chewable) 81 mg PO DAILY [facility] Last Admin: 02/20/18 10:44 Dose: 81 mg Famotidine (Pepcid) 20 mg PO DAILY [facility] Last Admin: 02/20/18 10:44 Dose: 20 mg Meropenem 500 mg/ Sodium (Chloride) 100 mls @ 100 mls/hr IVPB DAILY [facility]; Protocol Last Admin: 02/20/18 10:44 Dose: 100 mls/hr Daptomycin 400 mg/ Sodium (Chloride) 100 mls @ 100 mls/hr IV MWF [facility]; Protocol Stop: 02/23/18 09:01 Last Admin: 02/18/18 09:30 Dose: 100 mls/hr Ferric Sodium Gluconate Complex 125 mg/ Sodium Chloride 110 mls @ 105 mls/hr IVPB DAILY [facility] Stop: 02/23/18 11:03 Last Admin: 02/20/18 13:00 Dose: 105 mls/hr Sodium Chloride (Sodium Chloride 0.45%) 1,000 mls @ 75 mls/hr IV .[id number] [facility] Last Admin: 02/20/18 06:53 Dose: Not Given Telavancin 650 mg/ Dextrose 100 mls @ 100 mls/hr IVPB TTS [facility]; Protocol Last Admin: 02/19/18 10:51 Dose: 100 mls/hr Insulin Aspart (Novolog) 0 unit SC Q6 [facility]; Protocol Last Admin: 02/20/18 13:00 Dose: 2 units Insulin Detemir (Levemir) 10 unit SC HS [facility] Last Admin: 02/19/18 21:55 Dose: Not Given Metoprolol Succinate (Toprol Xl) 25 mg PO BID [facility] Last Admin: 02/20/18 10:44 Dose: 25 mg Sodium Polystyrene Sulfonate (Kayexalate Susp) 15 gm PO DAILY [facility] Last Admin: 02/20/18 10:43 Dose: Not Given Tamsulosin HCl (Flomax) 0.4 mg PO DAILY [facility] Last Admin: 02/20/18 10:44 Dose: 0.4 mg - Labs Labs: 02/19/18 10:17 02/20/18 07:48 PT 14.1 SECONDS (9.7-12.2) H 01/31/18 08:01 INR 1.3 01/31/18 08:01 APTT 30 SECONDS (21-34) 01/13/18 17:42 - Constitutional Appears: Well - Head Exam Head Exam: ATRAUMATIC, NORMAL INSPECTION, NORMOCEPHALIC - Eye Exam Eye Exam: EOMI, Normal appearance, PERRL Pupil Exam: NORMAL ACCOMODATION, PERRL - ENT Exam ENT Exam: Mucous Membranes Moist, Normal Exam - Neck Exam Neck Exam: Full ROM, Normal Inspection. absent: Lymphadenopathy - Respiratory Exam Respiratory Exam: Decreased Breath Sounds - Cardiovascular Exam Cardiovascular Exam: REGULAR RHYTHM, +S1, +S2 - GI/Abdominal Exam GI & Abdominal Exam: Soft, Diminished Bowel Sounds - Rectal Exam Rectal Exam: Deferred Assessment and Plan (1) JOY (acute kidney injury) Status: Acute (2) Change in mental status Status: Acute (3) Electrolyte imbalance Status: Acute (4) MRSA (methicillin resistant Staphylococcus aureus) septicemia Status: Acute (5) NSTEMI (non-ST elevated myocardial infarction) Status: Acute (6) Prophylactic measure Status: Acute (7) UTI (urinary tract infection) Status: Acute (8) CHF (congestive heart failure) Status: Chronic (9) CKD (chronic kidney disease) Status: Chronic (10) Diabetes mellitus Status: Chronic (11) Afib Status: Acute (12) Anemia Status: Acute (13) Bilateral hydronephrosis Status: Acute (14) CKD (chronic kidney disease) stage 4, GFR 15-29 ml/min Status: Acute (15) Metabolic acidosis Status: Acute (16) Dementia Status: Chronic
[2018-02-20 17:00] LABS: URINE BACTERIA OCC (<OCC); URINE BILIRUBIN NEGATIVE (NEGATIVE); URINE BLOOD 3+ (NEGATIVE); URINE CLARITY Turbid (Clear); URINE COLOR Yellow (YELLOW); URINE GLUCOSE (UA) NORMAL (Normal); URINE LEUKOCYTE ESTERASE 3+ Leu/uL (Negative); URINE PROTEIN 2+ mg/dL (NEGATIVE); URINE UROBILINOGEN NORMAL mg/dL (0.2-1.0); WBC CLUMPS MANY /hpf
--- NOTE | 2018-02-20 19:04 | CP.PCM.PN ---
Subjective - Date & Time of Evaluation Date of Evaluation: 02/20/18 Time of Evaluation: 15:00 - Subjective Subjective: dictated Objective - Vital Signs/Intake and Output Vital Signs (last 24 hours): Temp Pulse Resp BP Pulse Ox 98.2 F 142 H 20 93/61 L 97 02/20/18 17:15 02/20/18 17:15 02/20/18 17:15 02/20/18 17:15 02/20/18 17:15 - Medications Medications: Current Medications Acetaminophen (Tylenol 325mg Tab) 650 mg PO Q6 PRN PRN Reason: Fever >100.4 F Last Admin: 01/27/18 03:58 Dose: 650 mg Aspirin (Aspirin Chewable) 81 mg PO DAILY [facility] Last Admin: 02/20/18 10:44 Dose: 81 mg Famotidine (Pepcid) 20 mg PO DAILY [facility] Last Admin: 02/20/18 10:44 Dose: 20 mg Meropenem 500 mg/ Sodium (Chloride) 100 mls @ 100 mls/hr IVPB DAILY [facility]; Protocol Last Admin: 02/20/18 10:44 Dose: 100 mls/hr Daptomycin 400 mg/ Sodium (Chloride) 100 mls @ 100 mls/hr IV MWF [facility]; Protocol Stop: 02/23/18 09:01 Last Admin: 02/18/18 09:30 Dose: 100 mls/hr Ferric Sodium Gluconate Complex 125 mg/ Sodium Chloride 110 mls @ 105 mls/hr IVPB DAILY [facility] Stop: 02/23/18 11:03 Last Admin: 02/20/18 13:00 Dose: 105 mls/hr Sodium Chloride (Sodium Chloride 0.45%) 1,000 mls @ 75 mls/hr IV .[id number] [facility] Last Admin: 02/20/18 06:53 Dose: Not Given Telavancin 650 mg/ Dextrose 100 mls @ 100 mls/hr IVPB [facility]; Protocol Last Admin: 02/19/18 10:51 Dose: 100 mls/hr Insulin Aspart (Novolog) 0 unit SC Q6 [facility]; Protocol Last Admin: 02/20/18 13:00 Dose: 2 units Insulin Detemir (Levemir) 10 unit SC HS [facility] Last Admin: 02/19/18 21:55 Dose: Not Given Metoprolol Succinate (Toprol Xl) 25 mg PO BID [facility] Last Admin: 02/20/18 17:17 Dose: Not Given Sodium Polystyrene Sulfonate (Kayexalate Susp) 15 gm PO DAILY [facility] Last Admin: 02/20/18 10:43 Dose: Not Given Tamsulosin HCl (Flomax) 0.4 mg PO DAILY [facility] Last Admin: 02/20/18 10:44 Dose: 0.4 mg - Labs Labs: 02/19/18 10:17 02/20/18 07:48 PT 14.1 SECONDS (9.7-12.2) H 01/31/18 08:01 INR 1.3 01/31/18 08:01 APTT 30 SECONDS (21-34) 01/13/18 17:42
--- NOTE | 2018-02-20 21:01 | CP.PCM.PN ---
Subjective - Date & Time of Evaluation Date of Evaluation: 02/20/18 Time of Evaluation: 10:10 - Subjective Subjective: Patient seen and evaluated Not in distress Physical Exam - Constitutional Appears: Well - Head Exam Head Exam: ATRAUMATIC - ENT Exam ENT Exam: Mucous Membranes Moist - Respiratory Exam Respiratory Exam: Clear to Auscultation Bilateral - Cardiovascular Exam Cardiovascular Exam: Irregular Rhythm, +S1, +S2. absent: Systolic Murmur - GI/Abdominal Exam GI & Abdominal Exam: Soft. absent: Tenderness - Psychiatric Exam Psychiatric exam: Flat Affect - Skin Skin Exam: Warm - Impressions Impression: EKG: atrial flutter versus 2:1 atrial tachycardia, NSST's Assessment & Plan - Assessment and Plan (Free Text) Assessment: EP consult appreciated 1. Persistent atrial flutter/atrial tachycardia with RVR -- Being driven by underlying MRSA sepsis 2. Severe LV dysfunction EF 20-25% 3. MRSA sepsis 4. JOY with hydronephrosis 5. Hyponatremia 6. Hyperkalemia Medical management Objective - Vital Signs/Intake and Output Vital Signs (last 24 hours): Temp Pulse Resp BP Pulse Ox 98.2 F 142 H 20 93/61 L 97 02/20/18 17:15 02/20/18 17:15 02/20/18 17:15 02/20/18 17:15 02/20/18 17:15 - Medications Medications: Current Medications Acetaminophen (Tylenol 325mg Tab) 650 mg PO Q6 PRN PRN Reason: Fever >100.4 F Last Admin: 01/27/18 03:58 Dose: 650 mg Aspirin (Aspirin Chewable) 81 mg PO DAILY [facility] Last Admin: 02/20/18 10:44 Dose: 81 mg Famotidine (Pepcid) 20 mg PO DAILY [facility] Last Admin: 02/20/18 10:44 Dose: 20 mg Meropenem 500 mg/ Sodium (Chloride) 100 mls @ 100 mls/hr IVPB DAILY [facility]; Protocol Last Admin: 02/20/18 10:44 Dose: 100 mls/hr Daptomycin 400 mg/ Sodium (Chloride) 100 mls @ 100 mls/hr IV MWF [facility]; Protocol Stop: 02/23/18 09:01 Last Admin: 02/18/18 09:30 Dose: 100 mls/hr Ferric Sodium Gluconate Complex 125 mg/ Sodium Chloride 110 mls @ 105 mls/hr IVPB DAILY [facility] Stop: 02/23/18 11:03 Last Admin: 02/20/18 13:00 Dose: 105 mls/hr Sodium Chloride (Sodium Chloride 0.45%) 1,000 mls @ 75 mls/hr IV .[id number] [facility] Last Admin: 02/20/18 06:53 Dose: Not Given Telavancin 650 mg/ Dextrose 100 mls @ 100 mls/hr IVPB TTS [facility]; Protocol Last Admin: 02/19/18 10:51 Dose: 100 mls/hr Insulin Aspart (Novolog) 0 unit SC Q6 [facility]; Protocol Last Admin: 02/20/18 13:00 Dose: 2 units Insulin Detemir (Levemir) 10 unit SC HS [facility] Last Admin: 02/19/18 21:55 Dose: Not Given Metoprolol Succinate (Toprol Xl) 25 mg PO BID [facility] Last Admin: 02/20/18 17:17 Dose: Not Given Sodium Polystyrene Sulfonate (Kayexalate Susp) 15 gm PO DAILY [facility] Last Admin: 02/20/18 10:43 Dose: Not Given Tamsulosin HCl (Flomax) 0.4 mg PO DAILY [facility] Last Admin: 02/20/18 10:44 Dose: 0.4 mg - Labs Labs: 02/19/18 10:17 02/20/18 07:48 PT 14.1 SECONDS (9.7-12.2) H 01/31/18 08:01 INR 1.3 01/31/18 08:01 APTT 30 SECONDS (21-34) 01/13/18 17:42
[2018-02-20] MEDS: Insulin Detemir 100 units/ml Vial (Levemir) SC SCH (21:39)
[2018-02-21] MEDS: (Novolog) Insulin Aspart, Recombinant 100 u/ml 10 ml vial SC SCH ×4 (00:16→19:21)
--- NOTE | 2018-02-21 00:49 | PN ---
DATE: 02/20/2018 SUBJECTIVE: He remains in a confused state. He is awake, but he does not communicate much. He was seen today, since I am following him for his MRSA bacteriemia, which is not improving. He needs nephrostomy tube for bilateral hydronephrosis. PHYSICAL EXAMINATION: VITAL SIGNS: T-max is 98.2, heart rate is 142, blood pressure 93/61, and respirations are 20. Remains tachycardic because of septicemia. LUNGS: Clear otherwise. HEART: Tachy, irregularly irregular. ABDOMEN: Soft. Colostomy present. EXTREMITIES: Have no edema. ASSESSMENT AND PLAN: He needs a power of tibco developer to give approval for further because he needs nephrostomy tube. Otherwise, he needs to be made hospice, as he does not have any good quality of life. He is confused, demented. Several weeks of antibiotics were given, no improvement. Teresa Barnett MD
[2018-02-21 06:51] LABS: ALB/GLOB RATIO 0.8 (1.0-2.1); ALBUMIN 3.3 g/dL (3.5-5.0); CALCIUM 9.1 mg/dl (8.6-10.4)
[2018-02-21] MEDS: Metoprolol Succinate 25 mg XL Tab PO SCH ×2 (09:35→19:21)
[2018-02-21] MEDS: Meropenem 500 MG in Sodium Chloride 0.9% 100 ML IVPB SCH (10:14)
--- NOTE | 2018-02-21 10:38 | CP.PCM.PN ---
Subjective - Date & Time of Evaluation Date of Evaluation: 02/21/18 Time of Evaluation: 10:36 - Subjective Subjective: seen and examined no change clinically unable to obtain ros labs noted imaging noted Objective - Vital Signs/Intake and Output Vital Signs (last 24 hours): Temp Pulse Resp BP Pulse Ox 97.5 F L 137 H 20 111/74 95 02/21/18 07:08 02/21/18 09:40 02/21/18 07:08 02/21/18 09:40 02/21/18 07:08 Intake and Output: 02/21/18 02/21/18 06:59 18:59 Intake Total 600 Output Total 200 Balance 400 - Medications Medications: Current Medications Acetaminophen (Tylenol 325mg Tab) 650 mg PO Q6 PRN PRN Reason: Fever >100.4 F Last Admin: 01/27/18 03:58 Dose: 650 mg Aspirin (Aspirin Chewable) 81 mg PO DAILY [facility] Last Admin: 02/21/18 09:35 Dose: 81 mg Famotidine (Pepcid) 20 mg PO DAILY [facility] Last Admin: 02/21/18 09:35 Dose: 20 mg Meropenem 500 mg/ Sodium (Chloride) 100 mls @ 100 mls/hr IVPB DAILY [facility]; Protocol Last Admin: 02/21/18 10:14 Dose: 100 mls/hr Daptomycin 400 mg/ Sodium (Chloride) 100 mls @ 100 mls/hr IV MWF [facility]; Protocol Stop: 02/23/18 09:01 Last Admin: 02/21/18 09:32 Dose: 100 mls/hr Ferric Sodium Gluconate Complex 125 mg/ Sodium Chloride 110 mls @ 105 mls/hr IVPB DAILY [facility] Stop: 02/23/18 11:03 Last Admin: 02/20/18 13:00 Dose: 105 mls/hr Telavancin 650 mg/ Dextrose 100 mls @ 100 mls/hr IVPB TTS [facility]; Protocol Last Admin: 02/19/18 10:51 Dose: 100 mls/hr Sodium Bicarbonate 50 meq/ (Sodium Chloride) 1,050 mls @ 60 mls/hr IV .[id number] [facility] Insulin Aspart (Novolog) 0 unit SC Q6 [facility]; Protocol Last Admin: 02/21/18 06:53 Dose: Not Given Insulin Detemir (Levemir) 10 unit SC HS [facility] Last Admin: 02/20/18 21:39 Dose: Not Given Metoprolol Succinate (Toprol Xl) 25 mg PO BID [facility] Last Admin: 02/21/18 09:35 Dose: 25 mg Sodium Polystyrene Sulfonate (Kayexalate Susp) 15 gm PO DAILY [facility] Last Admin: 02/20/18 10:43 Dose: Not Given Tamsulosin HCl (Flomax) 0.4 mg PO DAILY [facility] Last Admin: 02/21/18 09:35 Dose: 0.4 mg - Labs Labs: 02/19/18 10:17 02/21/18 06:25 PT 14.1 SECONDS (9.7-12.2) H 01/31/18 08:01 INR 1.3 01/31/18 08:01 APTT 30 SECONDS (21-34) 01/13/18 17:42 - Constitutional Appears: No Acute Distress, Confused (non verbal), Cachectic, Chronically Ill - Eye Exam Eye Exam: Normal appearance - ENT Exam ENT Exam: Mucous Membranes Moist, Normal Exam - Neck Exam Neck Exam: Normal Inspection - Respiratory Exam Respiratory Exam: Clear to Ausculation Bilateral, NORMAL BREATHING PATTERN - Cardiovascular Exam Cardiovascular Exam: REGULAR RHYTHM - GI/Abdominal Exam GI & Abdominal Exam: Distended, Soft - Extremities Exam Extremities Exam: Normal Inspection - Neurological Exam Neurological Exam: Awake. absent: Alert - Skin Skin Exam: Dry, Intact Assessment and Plan (1) JOY (acute kidney injury) Status: Acute (2) Electrolyte imbalance Status: Acute (3) MRSA (methicillin resistant Staphylococcus aureus) septicemia Status: Acute (4) CHF (congestive heart failure) Status: Chronic (5) Diabetes mellitus Status: Chronic (6) Afib Status: Acute (7) Anemia Status: Acute - Assessment and Plan (Free Text) Assessment: improving azotemia and renal function on several antibiotics including daptomycin, may cause nephrotoxicity last renal and bladder US noted, add bicarb to iv fluids for met acidosis persistent bacteremia, unclear source. consider repeat ct scan of abdomen/pelvis. recommend palliative care
[2018-02-21] MEDS: Sod Polystyrene Sulf 15 gm/60 ml Susp PO SCH (10:53)
[2018-02-21] MEDS: Ferric Sodium Gluconat Complex 125 MG in Sodium Chloride 0.9% 100 ML IVPB SCH (10:54)
--- NOTE | 2018-02-21 11:28 | CP.PCM.PN ---
Subjective - Date & Time of Evaluation Date of Evaluation: 02/21/18 Time of Evaluation: 11:15 - Subjective Subjective: dictated Objective - Vital Signs/Intake and Output Vital Signs (last 24 hours): Temp Pulse Resp BP Pulse Ox 97.5 F L 137 H 20 111/74 95 02/21/18 07:08 02/21/18 09:40 02/21/18 07:08 02/21/18 09:40 02/21/18 07:08 Intake and Output: 02/21/18 02/21/18 06:59 18:59 Intake Total 600 Output Total 200 Balance 400 - Medications Medications: Current Medications Acetaminophen (Tylenol 325mg Tab) 650 mg PO Q6 PRN PRN Reason: Fever >100.4 F Last Admin: 01/27/18 03:58 Dose: 650 mg Aspirin (Aspirin Chewable) 81 mg PO DAILY [facility] Last Admin: 02/21/18 09:35 Dose: 81 mg Famotidine (Pepcid) 20 mg PO DAILY [facility] Last Admin: 02/21/18 09:35 Dose: 20 mg Meropenem 500 mg/ Sodium (Chloride) 100 mls @ 100 mls/hr IVPB DAILY [facility]; Protocol Last Admin: 02/21/18 10:14 Dose: 100 mls/hr Daptomycin 400 mg/ Sodium (Chloride) 100 mls @ 100 mls/hr IV MWF [facility]; Protocol Stop: 02/23/18 09:01 Last Admin: 02/21/18 09:32 Dose: 100 mls/hr Ferric Sodium Gluconate Complex 125 mg/ Sodium Chloride 110 mls @ 105 mls/hr IVPB DAILY [facility] Stop: 02/23/18 11:03 Last Admin: 02/21/18 10:54 Dose: 105 mls/hr Telavancin 650 mg/ Dextrose 100 mls @ 100 mls/hr IVPB TTS [facility]; Protocol Last Admin: 02/19/18 10:51 Dose: 100 mls/hr Sodium Bicarbonate 50 meq/ (Sodium Chloride) 1,050 mls @ 60 mls/hr IV .[id number] [facility] Insulin Aspart (Novolog) 0 unit SC Q6 [facility]; Protocol Last Admin: 02/21/18 06:53 Dose: Not Given Insulin Detemir (Levemir) 10 unit SC HS [facility] Last Admin: 02/20/18 21:39 Dose: Not Given Metoprolol Succinate (Toprol Xl) 25 mg PO BID [facility] Last Admin: 02/21/18 09:35 Dose: 25 mg Sodium Polystyrene Sulfonate (Kayexalate Susp) 15 gm PO DAILY [facility] Last Admin: 02/21/18 10:53 Dose: Not Given Tamsulosin HCl (Flomax) 0.4 mg PO DAILY [facility] Last Admin: 02/21/18 09:35 Dose: 0.4 mg - Labs Labs: 02/19/18 10:17 02/21/18 06:25 PT 14.1 SECONDS (9.7-12.2) H 01/31/18 08:01 INR 1.3 01/31/18 08:01 APTT 30 SECONDS (21-34) 01/13/18 17:42
--- NOTE | 2018-02-21 18:20 | CP.PCM.PN ---
Subjective - Date & Time of Evaluation Date of Evaluation: 02/21/18 Time of Evaluation: 08:15 - Subjective Subjective: clinically same Objective - Vital Signs/Intake and Output Vital Signs (last 24 hours): Temp Pulse Resp BP Pulse Ox 97.7 F 100 H 20 106/73 99 02/21/18 16:00 02/21/18 16:00 02/21/18 16:00 02/21/18 16:00 02/21/18 16:00 Intake and Output: 02/21/18 02/21/18 06:59 18:59 Intake Total 600 580 Output Total 200 Balance 400 580 - Medications Medications: Current Medications Acetaminophen (Tylenol 325mg Tab) 650 mg PO Q6 PRN PRN Reason: Fever >100.4 F Last Admin: 01/27/18 03:58 Dose: 650 mg Aspirin (Aspirin Chewable) 81 mg PO DAILY [facility] Last Admin: 02/21/18 09:35 Dose: 81 mg Famotidine (Pepcid) 20 mg PO DAILY [facility] Last Admin: 02/21/18 09:35 Dose: 20 mg Meropenem 500 mg/ Sodium (Chloride) 100 mls @ 100 mls/hr IVPB DAILY [facility]; Protocol Last Admin: 02/21/18 10:14 Dose: 100 mls/hr Daptomycin 400 mg/ Sodium (Chloride) 100 mls @ 100 mls/hr IV MWF [facility]; Protocol Stop: 02/23/18 09:01 Last Admin: 02/21/18 09:32 Dose: 100 mls/hr Ferric Sodium Gluconate Complex 125 mg/ Sodium Chloride 110 mls @ 105 mls/hr IVPB DAILY [facility] Stop: 02/23/18 11:03 Last Admin: 02/21/18 10:54 Dose: 105 mls/hr Telavancin 650 mg/ Dextrose 100 mls @ 100 mls/hr IVPB TTS [facility]; Protocol Last Admin: 02/19/18 10:51 Dose: 100 mls/hr Sodium Bicarbonate 50 meq/ (Sodium Chloride) 1,050 mls @ 60 mls/hr IV .[id number] [facility] Last Admin: 02/21/18 11:30 Dose: 60 mls/hr Insulin Aspart (Novolog) 0 unit SC Q6 [facility]; Protocol Last Admin: 02/21/18 12:27 Dose: 3 units Insulin Detemir (Levemir) 10 unit SC HS [facility] Last Admin: 02/20/18 21:39 Dose: Not Given Metoprolol Succinate (Toprol Xl) 25 mg PO BID [facility] Last Admin: 02/21/18 09:35 Dose: 25 mg Sodium Polystyrene Sulfonate (Kayexalate Susp) 15 gm PO DAILY [facility] Last Admin: 02/21/18 10:53 Dose: Not Given Tamsulosin HCl (Flomax) 0.4 mg PO DAILY [facility] Last Admin: 02/21/18 09:35 Dose: 0.4 mg - Labs Labs: 02/19/18 10:17 02/21/18 06:25 PT 14.1 SECONDS (9.7-12.2) H 01/31/18 08:01 INR 1.3 01/31/18 08:01 APTT 30 SECONDS (21-34) 01/13/18 17:42 Assessment and Plan (1) JOY (acute kidney injury) Status: Acute (2) Change in mental status Status: Acute (3) Electrolyte imbalance Status: Acute (4) MRSA (methicillin resistant Staphylococcus aureus) septicemia Status: Acute (5) NSTEMI (non-ST elevated myocardial infarction) Status: Acute (6) Prophylactic measure Status: Acute (7) UTI (urinary tract infection) Status: Acute (8) CHF (congestive heart failure) Status: Chronic (9) CKD (chronic kidney disease) Status: Chronic (10) Diabetes mellitus Status: Chronic (11) Afib Status: Acute (12) Anemia Status: Acute (13) Bilateral hydronephrosis Status: Acute (14) CKD (chronic kidney disease) stage 4, GFR 15-29 ml/min Status: Acute (15) Metabolic acidosis Status: Acute (16) Dementia Status: Chronic
--- NOTE | 2018-02-21 20:38 | PN ---
DATE: 02/21/2018 PHYSICAL EXAMINATION: GENERAL: The patient remains awake, but he is tachycardic, confused, and he is in no respiratory distress. NECK: Supple. LUNGS: Clear. HEART: S1, S2 are tachycardic. ABDOMEN: Remains with a colostomy bag. EXTREMITIES: No edema. ASSESSMENT AND PLAN: He has a peripherally inserted central catheter line on his right arm which is new, was placed on Wednesday according to the nurse. The patient continues to have methicillin-resistant Staphylococcus aureus in the bladder, it came probably from the urine. He remains in dementia, uncooperative with renal failure. His renal failure is a little better. Discussed with Dr. Merino. The patient has no quality of life and has had positive bacteremia and unable to clear it. Probably needs cystoscope and nephrostomy tube per urologist. Otherwise, I think since he has persistent bacteriemia which is not clearing, should be made hospice as he is bed bound, diffuse dementia, and uncooperative at times and has already discussed this with Dr. Hernandes, who needs to discuss with . Teresa Barnett MD
[2018-02-21] MEDS: Insulin Detemir 100 units/ml Vial (Levemir) SC SCH (22:18)
[2018-02-22] MEDS: (Novolog) Insulin Aspart, Recombinant 100 u/ml 10 ml vial SC SCH ×4 (00:12→18:02)
--- NOTE | 2018-02-22 06:27 | CP.PCM.PN ---
Subjective - Date & Time of Evaluation Date of Evaluation: 02/21/18 Time of Evaluation: 18:15 - Subjective Subjective: Patient seen and evaluated Not in distress Physical Exam - Constitutional Appears: Well - Head Exam Head Exam: ATRAUMATIC - ENT Exam ENT Exam: Mucous Membranes Moist - Respiratory Exam Respiratory Exam: Clear to Auscultation Bilateral - Cardiovascular Exam Cardiovascular Exam: Irregular Rhythm, +S1, +S2. absent: Systolic Murmur - GI/Abdominal Exam GI & Abdominal Exam: Soft. absent: Tenderness - Psychiatric Exam Psychiatric exam: Flat Affect - Skin Skin Exam: Warm - Impressions Impression: EKG: atrial flutter versus 2:1 atrial tachycardia, NSST's Assessment & Plan - Assessment and Plan (Free Text) Assessment: EP consult appreciated 1. Persistent atrial flutter/atrial tachycardia with RVR -- Being driven by underlying MRSA sepsis 2. Severe LV dysfunction EF 20-25% 3. s/p MRSA sepsis 4. CKD Medical management Objective - Vital Signs/Intake and Output Vital Signs (last 24 hours): Temp Pulse Resp BP Pulse Ox 98.0 F 139 H 20 107/73 98 02/21/18 23:57 02/21/18 23:57 02/21/18 23:57 02/21/18 23:57 02/21/18 23:57 Intake and Output: 02/21/18 02/22/18 18:59 06:59 Intake Total 580 480 Output Total 600 Balance 580 -120 - Medications Medications: Current Medications Acetaminophen (Tylenol 325mg Tab) 650 mg PO Q6 PRN PRN Reason: Fever >100.4 F Last Admin: 01/27/18 03:58 Dose: 650 mg Aspirin (Aspirin Chewable) 81 mg PO DAILY [facility] Last Admin: 02/21/18 09:35 Dose: 81 mg Famotidine (Pepcid) 20 mg PO DAILY [facility] Last Admin: 02/21/18 09:35 Dose: 20 mg Meropenem 500 mg/ Sodium (Chloride) 100 mls @ 100 mls/hr IVPB DAILY [facility]; Protocol Last Admin: 02/21/18 10:14 Dose: 100 mls/hr Daptomycin 400 mg/ Sodium (Chloride) 100 mls @ 100 mls/hr IV MWF [facility]; Protocol Stop: 02/23/18 09:01 Last Admin: 02/21/18 09:32 Dose: 100 mls/hr Ferric Sodium Gluconate Complex 125 mg/ Sodium Chloride 110 mls @ 105 mls/hr IVPB DAILY [facility] Stop: 02/23/18 11:03 Last Admin: 02/21/18 10:54 Dose: 105 mls/hr Telavancin 650 mg/ Dextrose 100 mls @ 100 mls/hr IVPB TTS [facility]; Protocol Last Admin: 02/19/18 10:51 Dose: 100 mls/hr Sodium Bicarbonate 50 meq/ (Sodium Chloride) 1,050 mls @ 60 mls/hr IV .[id number] [facility] Last Admin: 02/22/18 04:08 Dose: Not Given Insulin Aspart (Novolog) 0 unit SC Q6 [facility]; Protocol Last Admin: 02/22/18 00:12 Dose: Not Given Insulin Detemir (Levemir) 10 unit SC HS [facility] Last Admin: 02/21/18 22:18 Dose: Not Given Metoprolol Succinate (Toprol Xl) 25 mg PO BID [facility] Last Admin: 02/21/18 19:21 Dose: 25 mg Sodium Polystyrene Sulfonate (Kayexalate Susp) 15 gm PO DAILY [facility] Last Admin: 02/21/18 10:53 Dose: Not Given Tamsulosin HCl (Flomax) 0.4 mg PO DAILY [facility] Last Admin: 02/21/18 09:35 Dose: 0.4 mg - Labs Labs: 02/19/18 10:17 02/21/18 06:25 PT 14.1 SECONDS (9.7-12.2) H 01/31/18 08:01 INR 1.3 01/31/18 08:01 APTT 30 SECONDS (21-34) 01/13/18 17:42
--- NOTE | 2018-02-22 08:17 | CP.PCM.PN ---
Subjective - Date & Time of Evaluation Date of Evaluation: 02/22/18 Time of Evaluation: 08:14 - Subjective Subjective: PGY-2 Progress Note: Dr. Leticia Hernandes's Service Patient seen and examined at bedside. Per nursing no acute events occurred. ROS unable to be obtained due to current clinical condition. History from chart, pt is non verbal Patient is a 72 yo man with history of dementia, DM, BPH, stage 4 CKD who is admitted for altered mental status and found to have leg ulcer, UTI, hydronephrosis and persistent MRSA bacteremia. Echo showed severe LV dysfunction with EF 20-25%. EMILIANO on 01/31/18 was negative for vegetations. He is now in a persistent atrial flutter/atrial tachycardia with HR in 150's. EP is consulted by Dr. Thompson. ROS: unable to obtain due to dementia PMX: dementia, DM, BPH, CKD4 Psurg hx: s/p colostomy meds: reviewed allergeis: NKDA Objective - Vital Signs/Intake and Output Vital Signs (last 24 hours): Temp Pulse Resp BP Pulse Ox 97.5 F L 130 H 20 107/74 97 02/22/18 08:03 02/22/18 08:03 02/22/18 08:03 02/22/18 08:03 02/22/18 08:03 Intake and Output: 02/22/18 02/22/18 06:59 18:59 Intake Total 480 Output Total 600 Balance -120 - Medications Medications: Current Medications Acetaminophen (Tylenol 325mg Tab) 650 mg PO Q6 PRN PRN Reason: Fever >100.4 F Last Admin: 01/27/18 03:58 Dose: 650 mg Aspirin (Aspirin Chewable) 81 mg PO DAILY [facility] Last Admin: 02/21/18 09:35 Dose: 81 mg Famotidine (Pepcid) 20 mg PO DAILY [facility] Last Admin: 02/21/18 09:35 Dose: 20 mg Meropenem 500 mg/ Sodium (Chloride) 100 mls @ 100 mls/hr IVPB DAILY [facility]; Protocol Last Admin: 02/21/18 10:14 Dose: 100 mls/hr Daptomycin 400 mg/ Sodium (Chloride) 100 mls @ 100 mls/hr IV MWF [facility]; Protocol Stop: 02/23/18 09:01 Last Admin: 02/21/18 09:32 Dose: 100 mls/hr Ferric Sodium Gluconate Complex 125 mg/ Sodium Chloride 110 mls @ 105 mls/hr IVPB DAILY [facility] Stop: 02/23/18 11:03 Last Admin: 02/21/18 10:54 Dose: 105 mls/hr Telavancin 650 mg/ Dextrose 100 mls @ 100 mls/hr IVPB TTS [facility]; Protocol Last Admin: 02/19/18 10:51 Dose: 100 mls/hr Sodium Bicarbonate 50 meq/ (Sodium Chloride) 1,050 mls @ 60 mls/hr IV .[id number] [facility] Last Admin: 02/22/18 07:59 Dose: 60 mls/hr Insulin Aspart (Novolog) 0 unit SC Q6 [facility]; Protocol Last Admin: 02/22/18 06:30 Dose: Not Given Insulin Detemir (Levemir) 10 unit SC HS [facility] Last Admin: 02/21/18 22:18 Dose: Not Given Metoprolol Succinate (Toprol Xl) 25 mg PO BID [facility] Last Admin: 02/21/18 19:21 Dose: 25 mg Sodium Polystyrene Sulfonate (Kayexalate Susp) 15 gm PO DAILY [facility] Last Admin: 02/21/18 10:53 Dose: Not Given Tamsulosin HCl (Flomax) 0.4 mg PO DAILY [facility] Last Admin: 02/21/18 09:35 Dose: 0.4 mg - Labs Labs: 02/19/18 10:17 02/21/18 06:25 PT 14.1 SECONDS (9.7-12.2) H 01/31/18 08:01 INR 1.3 01/31/18 08:01 APTT 30 SECONDS (21-34) 01/13/18 17:42 - Head Exam Head Exam: ATRAUMATIC, NORMAL INSPECTION - Eye Exam Eye Exam: EOMI, Normal appearance, PERRL. absent: Periorbital tenderness Pupil Exam: NORMAL ACCOMODATION, PERRL. absent: Irregular, Unequal - ENT Exam ENT Exam: Mucous Membranes Moist, Normal Oropharynx - Neck Exam Neck Exam: absent: Lymphadenopathy, Thyromegaly - Respiratory Exam Respiratory Exam: Clear to Ausculation Bilateral, NORMAL BREATHING PATTERN. absent: Respiratory Distress - Cardiovascular Exam Cardiovascular Exam: REGULAR RHYTHM, +S1, +S2 - GI/Abdominal Exam GI & Abdominal Exam: Soft, Normal Bowel Sounds. absent: Hyperactive Bowel Sounds - Extremities Exam Extremities Exam: Full ROM. absent: Pedal Edema - Back Exam Back Exam: NORMAL INSPECTION. absent: CVA tenderness (R), paraspinal tenderness - Neurological Exam Neurological Exam: Altered, Awake, CN II-XII Intact - Psychiatric Exam Psychiatric exam: Normal Affect, Normal Mood - Skin Skin Exam: Dry Assessment and Plan - Assessment and Plan (Free Text) Assessment: 72 yo man with history of dementia, DM, BPH, stage 4 CKD who is admitted for altered mental status Plan: UTI Blood cultures: :Positive for MRSA U/A positive for infection: Leukocyte esterase 3+ -Daptomycin 400mg IV MWF -Meropenem 500mg IVPB Daily -Telavancin 650mg IV TTS Hypertension -Metoprolol 25mg PO BID BPH -Tamsulosin .4mg PO Daily DM -ISS -Insulin Detemir 10unit SC HS Hyperkalemic -Sodium Polystyrene 15gm PO Daily Sacral ulcer -Wound care applied ESRD -Nephrology consulted. Help appreciated. PPX -Pepcid 20mg PO BID All management per Dr. Leticia Hernandes.
[2018-02-22] MEDS: Metoprolol Succinate 25 mg XL Tab PO SCH ×2 (09:24→18:07)
[2018-02-22] MEDS: Sod Polystyrene Sulf 15 gm/60 ml Susp PO SCH (09:25)
[2018-02-22] MEDS: TELAVANCIN HYDROCHLORIDE IVPB SCH (09:27)
[2018-02-22] MEDS: DEXTROSE 5% IVPB SCH (09:27)
[2018-02-22] MEDS: WATER IVPB SCH (09:27)
--- NOTE | 2018-02-22 09:54 | CP.PCM.PN ---
Subjective - Date & Time of Evaluation Date of Evaluation: 02/22/18 Time of Evaluation: 09:52 - Subjective Subjective: no change clinically remains afebrile hemodynamically stable unable to obtain ROS due to ams no labs today chart reviewed Objective - Vital Signs/Intake and Output Vital Signs (last 24 hours): Temp Pulse Resp BP Pulse Ox 97.5 F L 139 H 20 99/67 L 97 02/22/18 08:03 02/22/18 09:25 02/22/18 08:03 02/22/18 09:25 02/22/18 08:03 Intake and Output: 02/22/18 02/22/18 06:59 18:59 Intake Total 480 Output Total 600 Balance -120 - Medications Medications: Current Medications Acetaminophen (Tylenol 325mg Tab) 650 mg PO Q6 PRN PRN Reason: Fever >100.4 F Last Admin: 01/27/18 03:58 Dose: 650 mg Aspirin (Aspirin Chewable) 81 mg PO DAILY [facility] Last Admin: 02/22/18 09:24 Dose: 81 mg Famotidine (Pepcid) 20 mg PO DAILY [facility] Last Admin: 02/22/18 09:24 Dose: 20 mg Meropenem 500 mg/ Sodium (Chloride) 100 mls @ 100 mls/hr IVPB DAILY [facility]; Protocol Last Admin: 02/21/18 10:14 Dose: 100 mls/hr Daptomycin 400 mg/ Sodium (Chloride) 100 mls @ 100 mls/hr IV MWF [facility]; Protocol Stop: 02/23/18 09:01 Last Admin: 02/21/18 09:32 Dose: 100 mls/hr Ferric Sodium Gluconate Complex 125 mg/ Sodium Chloride 110 mls @ 105 mls/hr IVPB DAILY [facility] Stop: 02/23/18 11:03 Last Admin: 02/21/18 10:54 Dose: 105 mls/hr Telavancin 650 mg/ Dextrose 100 mls @ 100 mls/hr IVPB TTS [facility]; Protocol Last Admin: 02/22/18 09:27 Dose: 100 mls/hr Sodium Bicarbonate 50 meq/ (Sodium Chloride) 1,050 mls @ 60 mls/hr IV .[id number] [facility] Last Admin: 02/22/18 07:59 Dose: 60 mls/hr Insulin Aspart (Novolog) 0 unit SC Q6 [facility]; Protocol Last Admin: 02/22/18 06:30 Dose: Not Given Insulin Detemir (Levemir) 10 unit SC [facility] Last Admin: 02/21/18 22:18 Dose: Not Given Metoprolol Succinate (Toprol Xl) 25 mg PO BID [facility] Last Admin: 02/22/18 09:24 Dose: Not Given Sodium Polystyrene Sulfonate (Kayexalate Susp) 15 gm PO DAILY [facility] Last Admin: 02/21/18 10:53 Dose: Not Given Tamsulosin HCl (Flomax) 0.4 mg PO DAILY [facility] Last Admin: 02/22/18 09:24 Dose: 0.4 mg - Labs Labs: 02/19/18 10:17 02/21/18 06:25 PT 14.1 SECONDS (9.7-12.2) H 01/31/18 08:01 INR 1.3 01/31/18 08:01 APTT 30 SECONDS (21-34) 01/13/18 17:42 - Constitutional Appears: Non-toxic, No Acute Distress, Older Than Stated Age, Chronically Ill - Head Exam Head Exam: NORMAL INSPECTION, NORMOCEPHALIC - Eye Exam Eye Exam: Normal appearance, PERRL - ENT Exam ENT Exam: Mucous Membranes Moist - Neck Exam Neck Exam: Normal Inspection - Respiratory Exam Respiratory Exam: Clear to Ausculation Bilateral, NORMAL BREATHING PATTERN - Cardiovascular Exam Cardiovascular Exam: REGULAR RHYTHM, RRR - GI/Abdominal Exam GI & Abdominal Exam: Soft, Normal Bowel Sounds - Extremities Exam Extremities Exam: Normal Inspection - Neurological Exam Neurological Exam: Awake. absent: Alert - Skin Skin Exam: Dry, Intact Assessment and Plan (1) JOY (acute kidney injury) Status: Acute (2) Electrolyte imbalance Status: Acute (3) MRSA (methicillin resistant Staphylococcus aureus) septicemia Status: Acute (4) CHF (congestive heart failure) Status: Chronic (5) Diabetes mellitus Status: Chronic (6) Afib Status: Acute (7) Anemia Status: Acute - Assessment and Plan (Free Text) Assessment: bmp ordered for tomorrow, pt is a poor candidate for [employer] - recommend conservative management antibiotics per ID ? repeat imaging. source of bacteremia unclear recommend palliative care.
[2018-02-22] MEDS: Meropenem 500 MG in Sodium Chloride 0.9% 100 ML IVPB SCH (10:27)
[2018-02-22] MEDS: Ferric Sodium Gluconat Complex 125 MG in Sodium Chloride 0.9% 100 ML IVPB SCH (10:43)
[2018-02-22 14:22] LABS: BASO # 0.1 K/uL (0.0-0.2); EOS # 0.3 K/uL (0.0-0.7); HEMOGLOBIN 9.6 g/dL (12.0-18.0); LYMPH # 1.2 K/uL (1.0-4.3); LYMPH % 10.7 % (20.0-40.0); MEAN CELL VOLUME 88.1 fL (80.0-94.0); MEAN CORPUSCULAR HEMOGLOBIN 29.1 pg (27.0-31.0); MEAN PLATELET VOLUME 7.3 fL (7.2-11.7); MONO # 0.5 K/uL (0.0-0.8); MONO % 4.1 % (0.0-10.0); NEUT % 81.2 % (50.0-75.0); RBC 3.29 Mil/uL (4.40-5.90); RED CELL DISTRIBUTION WIDTH 16.8 % (11.5-14.5); WHITE BLOOD COUNT 11.1 K/uL (4.8-10.8)
--- NOTE | 2018-02-22 15:11 | CP.PCM.PN ---
Subjective - Date & Time of Evaluation Date of Evaluation: 02/22/18 Time of Evaluation: 08:30 - Subjective Subjective: clinically same Objective - Vital Signs/Intake and Output Vital Signs (last 24 hours): Temp Pulse Resp BP Pulse Ox 97.5 F L 139 H 20 99/67 L 97 02/22/18 08:03 02/22/18 09:25 02/22/18 08:03 02/22/18 09:25 02/22/18 08:03 Intake and Output: 02/22/18 02/22/18 06:59 18:59 Intake Total 480 720 Output Total 600 900 Balance -120 -180 - Medications Medications: Current Medications Acetaminophen (Tylenol 325mg Tab) 650 mg PO Q6 PRN PRN Reason: Fever >100.4 F Last Admin: 01/27/18 03:58 Dose: 650 mg Aspirin (Aspirin Chewable) 81 mg PO DAILY [facility] Last Admin: 02/22/18 09:24 Dose: 81 mg Famotidine (Pepcid) 20 mg PO DAILY [facility] Last Admin: 02/22/18 09:24 Dose: 20 mg Meropenem 500 mg/ Sodium (Chloride) 100 mls @ 100 mls/hr IVPB [facility]ILY [facility]; Protocol Last Admin: 02/22/18 10:27 Dose: 100 mls/hr Daptomycin 400 mg/ Sodium (Chloride) 100 mls @ 100 mls/hr IV MWF [facility]; Protocol Stop: 02/23/18 09:01 Last Admin: 02/21/18 09:32 Dose: 100 mls/hr Ferric Sodium Gluconate Complex 125 mg/ Sodium Chloride 110 mls @ 105 mls/hr IVPB DAILY [facility] Stop: 02/23/18 11:03 Last Admin: 02/22/18 10:43 Dose: 105 mls/hr Telavancin 650 mg/ Dextrose 100 mls @ 100 mls/hr IVPB TTS [facility]; Protocol Last Admin: 02/22/18 09:27 Dose: 100 mls/hr Sodium Bicarbonate 50 meq/ (Sodium Chloride) 1,050 mls @ 60 mls/hr IV .[id number] [facility] Last Admin: 02/22/18 07:59 Dose: 60 mls/hr Insulin Aspart (Novolog) 0 unit SC Q6 [facility]; Protocol Last Admin: 02/22/18 12:44 Dose: 3 units Insulin Detemir (Levemir) 10 unit SC [facility] Last Admin: 02/21/18 22:18 Dose: Not Given Metoprolol Succinate (Toprol Xl) 25 mg PO BID [facility] Last Admin: 02/22/18 09:24 Dose: Not Given Sodium Polystyrene Sulfonate (Kayexalate Susp) 15 gm PO DAILY [facility] Last Admin: 02/22/18 09:25 Dose: Not Given Tamsulosin HCl (Flomax) 0.4 mg PO DAILY [facility] Last Admin: 02/22/18 09:24 Dose: 0.4 mg - Labs Labs: 02/22/18 14:14 02/21/18 06:25 PT 14.1 SECONDS (9.7-12.2) H 01/31/18 08:01 INR 1.3 01/31/18 08:01 APTT 30 SECONDS (21-34) 01/13/18 17:42 - Constitutional Appears: Well - Head Exam Head Exam: ATRAUMATIC, NORMAL INSPECTION, NORMOCEPHALIC - Eye Exam Eye Exam: EOMI, Normal appearance, PERRL Pupil Exam: NORMAL ACCOMODATION, PERRL - ENT Exam ENT Exam: Mucous Membranes Moist, Normal Exam - Neck Exam Neck Exam: Full ROM, Normal Inspection. absent: Lymphadenopathy - Respiratory Exam Respiratory Exam: Decreased Breath Sounds - Cardiovascular Exam Cardiovascular Exam: REGULAR RHYTHM, +S1, +S2 - GI/Abdominal Exam GI & Abdominal Exam: Soft, Diminished Bowel Sounds - Rectal Exam Rectal Exam: Deferred Assessment and Plan (1) JOY (acute kidney injury) Status: Acute (2) Change in mental status Status: Acute (3) Electrolyte imbalance Status: Acute (4) MRSA (methicillin resistant Staphylococcus aureus) septicemia Status: Acute (5) NSTEMI (non-ST elevated myocardial infarction) Status: Acute (6) Prophylactic measure Status: Acute (7) UTI (urinary tract infection) Status: Acute (8) CHF (congestive heart failure) Status: Chronic (9) CKD (chronic kidney disease) Status: Chronic (10) Diabetes mellitus Status: Chronic (11) Afib Status: Acute (12) Anemia Status: Acute (13) Bilateral hydronephrosis Status: Acute (14) CKD (chronic kidney disease) stage 4, GFR 15-29 ml/min Status: Acute (15) Metabolic acidosis Status: Acute (16) Dementia Status: Chronic
[2018-02-22 15:13] LABS: ALB/GLOB RATIO 0.7 (1.0-2.1); ALBUMIN 3.3 g/dL (3.5-5.0); CALCIUM 9.4 mg/dl (8.6-10.4)
--- NOTE | 2018-02-22 21:53 | CP.PCM.PN ---
Subjective - Date & Time of Evaluation Date of Evaluation: 02/22/18 Time of Evaluation: 17:15 - Subjective Subjective: Patient seen and evaluated Not in distress Physical Exam - Constitutional Appears: Well - Head Exam Head Exam: ATRAUMATIC - ENT Exam ENT Exam: Mucous Membranes Moist - Respiratory Exam Respiratory Exam: Clear to Auscultation Bilateral - Cardiovascular Exam Cardiovascular Exam: Irregular Rhythm, +S1, +S2. absent: Systolic Murmur - GI/Abdominal Exam GI & Abdominal Exam: Soft. absent: Tenderness - Psychiatric Exam Psychiatric exam: Flat Affect - Skin Skin Exam: Warm - Impressions Impression: EKG: atrial flutter versus 2:1 atrial tachycardia, NSST's Assessment & Plan - Assessment and Plan (Free Text) Assessment: EP consult appreciated 1. Persistent atrial flutter/atrial tachycardia with RVR -- Being driven by underlying MRSA sepsis 2. Severe LV dysfunction EF 20-25% 3. s/p MRSA sepsis 4. CKD Objective - Vital Signs/Intake and Output Vital Signs (last 24 hours): Temp Pulse Resp BP Pulse Ox 98.2 F 105 H 20 161/71 H 95 02/22/18 16:00 02/22/18 16:00 02/22/18 16:00 02/22/18 16:00 02/22/18 16:00 Intake and Output: 02/22/18 02/23/18 18:59 06:59 Intake Total 720 Output Total 900 Balance -180 - Medications Medications: Current Medications Acetaminophen (Tylenol 325mg Tab) 650 mg PO Q6 PRN PRN Reason: Fever >100.4 F Last Admin: 01/27/18 03:58 Dose: 650 mg Aspirin (Aspirin Chewable) 81 mg PO DAILY [facility] Last Admin: 02/22/18 09:24 Dose: 81 mg Famotidine (Pepcid) 20 mg PO DAILY [facility] Last Admin: 02/22/18 09:24 Dose: 20 mg Meropenem 500 mg/ Sodium (Chloride) 100 mls @ 100 mls/hr IVPB DAILY [facility]; Protocol Last Admin: 02/22/18 10:27 Dose: 100 mls/hr Daptomycin 400 mg/ Sodium (Chloride) 100 mls @ 100 mls/hr IV MWF [facility]; Protocol Stop: 02/23/18 09:01 Last Admin: 02/21/18 09:32 Dose: 100 mls/hr Ferric Sodium Gluconate Complex 125 mg/ Sodium Chloride 110 mls @ 105 mls/hr IVPB DAILY [facility] Stop: 02/23/18 11:03 Last Admin: 02/22/18 10:43 Dose: 105 mls/hr Telavancin 650 mg/ Dextrose 100 mls @ 100 mls/hr IVPB TTS [facility]; Protocol Last Admin: 02/22/18 09:27 Dose: 100 mls/hr Sodium Bicarbonate 50 meq/ (Sodium Chloride) 1,050 mls @ 60 mls/hr IV .[id number] [facility] Last Admin: 02/22/18 07:59 Dose: 60 mls/hr Insulin Aspart (Novolog) 0 unit SC Q6 [facility]; Protocol Last Admin: 02/22/18 18:02 Dose: Not Given Insulin Detemir (Levemir) 10 unit SC HS [facility] Last Admin: 02/21/18 22:18 Dose: Not Given Metoprolol Succinate (Toprol Xl) 25 mg PO BID [facility] Last Admin: 02/22/18 18:07 Dose: 25 mg Sodium Polystyrene Sulfonate (Kayexalate Susp) 15 gm PO DAILY [facility] Last Admin: 02/22/18 09:25 Dose: Not Given Tamsulosin HCl (Flomax) 0.4 mg PO DAILY [facility] Last Admin: 02/22/18 09:24 Dose: 0.4 mg - Labs Labs: 02/22/18 14:14 02/22/18 14:16 PT 14.1 SECONDS (9.7-12.2) H 01/31/18 08:01 INR 1.3 01/31/18 08:01 APTT 30 SECONDS (21-34) 01/13/18 17:42
[2018-02-22] MEDS: Insulin Detemir 100 units/ml Vial (Levemir) SC SCH (21:59)
[2018-02-23] MEDS: (Novolog) Insulin Aspart, Recombinant 100 u/ml 10 ml vial SC SCH ×4 (00:20→18:34)
--- NOTE | 2018-02-23 07:00 | CP.PCM.PN ---
Subjective - Date & Time of Evaluation Date of Evaluation: 02/23/18 Time of Evaluation: 07:00 - Subjective Subjective: PGY-2 Progress Note: Dr. Leticia Hernandes's Service Patient seen and examined at bedside. Per nursing no acute events occurred. ROS unable to be obtained due to current clinical condition. Objective - Vital Signs/Intake and Output Vital Signs (last 24 hours): Temp Pulse Resp BP Pulse Ox 98.3 F 109 H 20 104/74 98 02/23/18 00:00 02/23/18 00:00 02/23/18 00:00 02/23/18 00:00 02/23/18 00:00 Intake and Output: 02/23/18 02/23/18 06:59 18:59 Intake Total 1070 Output Total 800 Balance 270 - Medications Medications: Current Medications Acetaminophen (Tylenol 325mg Tab) 650 mg PO Q6 PRN PRN Reason: Fever >100.4 F Last Admin: 01/27/18 03:58 Dose: 650 mg Aspirin (Aspirin Chewable) 81 mg PO DAILY [facility] Last Admin: 02/22/18 09:24 Dose: 81 mg Famotidine (Pepcid) 20 mg PO DAILY [facility] Last Admin: 02/22/18 09:24 Dose: 20 mg Meropenem 500 mg/ Sodium (Chloride) 100 mls @ 100 mls/hr IVPB DAILY [facility]; Protocol Last Admin: 02/22/18 10:27 Dose: 100 mls/hr Daptomycin 400 mg/ Sodium (Chloride) 100 mls @ 100 mls/hr IV MWF [facility]; Protocol Stop: 02/23/18 09:01 Last Admin: 02/21/18 09:32 Dose: 100 mls/hr Ferric Sodium Gluconate Complex 125 mg/ Sodium Chloride 110 mls @ 105 mls/hr IVPB DAILY [facility] Stop: 02/23/18 11:03 Last Admin: 02/22/18 10:43 Dose: 105 mls/hr Telavancin 650 mg/ Dextrose 100 mls @ 100 mls/hr IVPB TTS [facility]; Protocol Last Admin: 02/22/18 09:27 Dose: 100 mls/hr Sodium Bicarbonate 50 meq/ (Sodium Chloride) 1,050 mls @ 60 mls/hr IV .[id number] [facility] Last Admin: 02/23/18 05:04 Dose: 60 mls/hr Insulin Aspart (Novolog) 0 unit SC Q6 [facility]; Protocol Last Admin: 02/23/18 06:09 Dose: Not Given Insulin Detemir (Levemir) 10 unit SC [facility] Last Admin: 02/22/18 21:59 Dose: Not Given Metoprolol Succinate (Toprol Xl) 25 mg PO BID [facility] Last Admin: 02/22/18 18:07 Dose: 25 mg Sodium Polystyrene Sulfonate (Kayexalate Susp) 15 gm PO DAILY [facility] Last Admin: 02/22/18 09:25 Dose: Not Given Tamsulosin HCl (Flomax) 0.4 mg PO DAILY [facility] Last Admin: 02/22/18 09:24 Dose: 0.4 mg - Labs Labs: 02/22/18 14:14 02/22/18 14:16 PT 14.1 SECONDS (9.7-12.2) H 01/31/18 08:01 INR 1.3 01/31/18 08:01 APTT 30 SECONDS (21-34) 01/13/18 17:42 - Head Exam Head Exam: ATRAUMATIC, NORMAL INSPECTION - Eye Exam Eye Exam: EOMI, Normal appearance, PERRL Pupil Exam: NORMAL ACCOMODATION, PERRL - ENT Exam ENT Exam: Mucous Membranes Moist, Normal Oropharynx - Respiratory Exam Respiratory Exam: Clear to Ausculation Bilateral, NORMAL BREATHING PATTERN. absent: Prolonged Expiratory Phase, Respiratory Distress - Cardiovascular Exam Cardiovascular Exam: REGULAR RHYTHM, +S1, +S2 - GI/Abdominal Exam GI & Abdominal Exam: Soft, Normal Bowel Sounds - Extremities Exam Extremities Exam: Full ROM. absent: Pedal Edema - Back Exam Back Exam: NORMAL INSPECTION. absent: CVA tenderness (R), paraspinal tenderness - Neurological Exam Neurological Exam: Alert, Awake, CN II-XII Intact - Psychiatric Exam Psychiatric exam: Normal Affect, Normal Mood - Skin Skin Exam: Dry, Intact Assessment and Plan - Assessment and Plan (Free Text) Plan: Assessment: 72 yo man with history of dementia, DM, BPH, stage 4 CKD who is admitted for altered mental status Plan: UTI Blood cultures: :Positive for MRSA U/A positive for infection: Leukocyte esterase 3+ -Daptomycin 400mg IV MWF -Meropenem 500mg IVPB Daily -Telavancin 650mg IV TTS Hypertension -Metoprolol 25mg PO BID BPH -Tamsulosin .4mg PO Daily DM -ISS -Insulin Detemir 10unit SC HS Hyperkalemic -Sodium Polystyrene 15gm PO Daily Sacral ulcer -Wound care applied ESRD -Nephrology consulted. Help appreciated. PPX -Pepcid 20mg PO BID All management per Dr. Leticia Hernandes.
[2018-02-23 07:01] LABS: CALCIUM 9.2 mg/dl (8.6-10.4)
[2018-02-23] MEDS: Sod Polystyrene Sulf 15 gm/60 ml Susp PO SCH (10:07)
[2018-02-23] MEDS: Metoprolol Succinate 25 mg XL Tab PO SCH ×2 (10:31→18:11)
[2018-02-23] MEDS: Meropenem 500 MG in Sodium Chloride 0.9% 100 ML IVPB SCH (10:34)
[2018-02-23] MEDS: Ferric Sodium Gluconat Complex 125 MG in Sodium Chloride 0.9% 100 ML IVPB SCH (10:35)
--- NOTE | 2018-02-23 14:05 | CP.PCM.PN ---
Subjective - Date & Time of Evaluation Date of Evaluation: 02/23/18 Time of Evaluation: 14:15 - Subjective Subjective: dictated Objective - Vital Signs/Intake and Output Vital Signs (last 24 hours): Temp Pulse Resp BP Pulse Ox 98.0 F 112 H 20 119/79 97 02/23/18 07:50 02/23/18 07:50 02/23/18 07:50 02/23/18 07:50 02/23/18 07:50 Intake and Output: 02/23/18 02/23/18 06:59 18:59 Intake Total 1070 Output Total 800 Balance 270 - Medications Medications: Current Medications Acetaminophen (Tylenol 325mg Tab) 650 mg PO Q6 PRN PRN Reason: Fever >100.4 F Last Admin: 01/27/18 03:58 Dose: 650 mg Aspirin (Aspirin Chewable) 81 mg PO DAILY [facility] Last Admin: 02/23/18 10:31 Dose: 81 mg Famotidine (Pepcid) 20 mg PO DAILY [facility] Last Admin: 02/23/18 10:31 Dose: 20 mg Telavancin 650 mg/ Dextrose 100 mls @ 100 mls/hr IVPB TTS [facility]; Protocol Last Admin: 02/22/18 09:27 Dose: 100 mls/hr Sodium Bicarbonate 50 meq/ (Sodium Chloride) 1,050 mls @ 60 mls/hr IV .[id number] [facility] Last Admin: 02/23/18 05:04 Dose: 60 mls/hr Daptomycin 400 mg/ Sodium (Chloride) 100 mls @ 100 mls/hr IV MWF NEL; Protocol Stop: 03/02/18 09:01 Insulin Aspart (Novolog) 0 unit SC Q6 NEL; Protocol Last Admin: 02/23/18 12:07 Dose: Not Given Insulin Detemir (Levemir) 10 unit SC HS [facility] Last Admin: 02/22/18 21:59 Dose: Not Given Metoprolol Succinate (Toprol Xl) 25 mg PO BID NEL Last Admin: 02/23/18 10:31 Dose: 25 mg Sodium Polystyrene Sulfonate (Kayexalate Susp) 15 gm PO DAILY NEL Last Admin: 02/23/18 10:07 Dose: Not Given Tamsulosin HCl (Flomax) 0.4 mg PO DAILY NEL Last Admin: 02/23/18 10:31 Dose: 0.4 mg - Labs Labs: 02/22/18 14:14 02/23/18 06:33 PT 14.1 SECONDS (9.7-12.2) H 01/31/18 08:01 INR 1.3 01/31/18 08:01 APTT 30 SECONDS (21-34) 01/13/18 17:42
--- NOTE | 2018-02-23 14:15 | CP.PCM.PN ---
Subjective - Date & Time of Evaluation Date of Evaluation: 02/23/18 Time of Evaluation: 14:13 - Subjective Subjective: no new events unable to obtain ROS due to clinical condition [email or web address] in chart reviewed Objective - Vital Signs/Intake and Output Vital Signs (last 24 hours): Temp Pulse Resp BP Pulse Ox 98.0 F 112 H 20 119/79 97 02/23/18 07:50 02/23/18 07:50 02/23/18 07:50 02/23/18 07:50 02/23/18 07:50 Intake and Output: 02/23/18 02/23/18 06:59 18:59 Intake Total 1070 Output Total 800 Balance 270 - Medications Medications: Current Medications Acetaminophen (Tylenol 325mg Tab) 650 mg PO Q6 PRN PRN Reason: Fever >100.4 F Last Admin: 01/27/18 03:58 Dose: 650 mg Aspirin (Aspirin Chewable) 81 mg PO DAILY [facility] Last Admin: 02/23/18 10:31 Dose: 81 mg Famotidine (Pepcid) 20 mg PO DAILY [facility] Last Admin: 02/23/18 10:31 Dose: 20 mg Telavancin 650 mg/ Dextrose 100 mls @ 100 mls/hr IVPB TTS [facility]; Protocol Last Admin: 02/22/18 09:27 Dose: 100 mls/hr Sodium Bicarbonate 50 meq/ (Sodium Chloride) 1,050 mls @ 60 mls/hr IV .[id number] [facility] Last Admin: 02/23/18 05:04 Dose: 60 mls/hr Daptomycin 400 mg/ Sodium (Chloride) 100 mls @ 100 mls/hr IV MWF [facility]; Protocol Stop: 03/02/18 09:01 Insulin Aspart (Novolog) 0 unit SC Q6 [facility]; Protocol Last Admin: 02/23/18 12:07 Dose: Not Given Insulin Detemir (Levemir) 10 unit SC HS [facility] Last Admin: 02/22/18 21:59 Dose: Not Given Metoprolol Succinate (Toprol Xl) 25 mg PO BID [facility] Last Admin: 02/23/18 10:31 Dose: 25 mg Sodium Polystyrene Sulfonate (Kayexalate Susp) 15 gm PO DAILY [facility] Last Admin: 02/23/18 10:07 Dose: Not Given Tamsulosin HCl (Flomax) 0.4 mg PO DAILY [facility] Last Admin: 02/23/18 10:31 Dose: 0.4 mg - Labs Labs: 02/22/18 14:14 02/23/18 06:33 PT 14.1 SECONDS (9.7-12.2) H 01/31/18 08:01 INR 1.3 01/31/18 08:01 APTT 30 SECONDS (21-34) 01/13/18 17:42 - Constitutional Appears: Confused, Chronically Ill - Head Exam Head Exam: ATRAUMATIC - Eye Exam Eye Exam: EOMI, Normal appearance - ENT Exam ENT Exam: Mucous Membranes Moist - Neck Exam Neck Exam: absent: Lymphadenopathy - Respiratory Exam Respiratory Exam: Decreased Breath Sounds. absent: Wheezes - Cardiovascular Exam Cardiovascular Exam: REGULAR RHYTHM. absent: Rubs - GI/Abdominal Exam GI & Abdominal Exam: Distended. absent: Tenderness - Extremities Exam Extremities Exam: absent: Pedal Edema Assessment and Plan - Assessment and Plan (Free Text) Assessment: stable ckd bacteremia poor mental status continue AB therapy trend labs
[2018-02-23] MEDS ORDERED: Iohexol 240 (50 ml) PO ONE (14:45)
--- NOTE | 2018-02-23 18:13 | CP.PCM.PN ---
Subjective - Date & Time of Evaluation Date of Evaluation: 02/23/18 Time of Evaluation: 08:45 - Subjective Subjective: clinically same Objective - Vital Signs/Intake and Output Vital Signs (last 24 hours): Temp Pulse Resp BP Pulse Ox 98 F 120 H 20 97/60 L 96 02/23/18 16:00 02/23/18 16:00 02/23/18 16:00 02/23/18 16:00 02/23/18 16:00 Intake and Output: 02/23/18 02/23/18 06:59 18:59 Intake Total 1070 780 Output Total 800 1100 Balance 270 -320 - Medications Medications: Current Medications Acetaminophen (Tylenol 325mg Tab) 650 mg PO Q6 PRN PRN Reason: Fever >100.4 F Last Admin: 01/27/18 03:58 Dose: 650 mg Aspirin (Aspirin Chewable) 81 mg PO DAILY [facility] Last Admin: 02/23/18 10:31 Dose: 81 mg Famotidine (Pepcid) 20 mg PO DAILY [facility] Last Admin: 02/23/18 10:31 Dose: 20 mg Telavancin 650 mg/ Dextrose 100 mls @ 100 mls/hr IVPB [facility]; Protocol Last Admin: 02/22/18 09:27 Dose: 100 mls/hr Sodium Bicarbonate 50 meq/ (Sodium Chloride) 1,050 mls @ 60 mls/hr IV .[id number] [facility] Last Admin: 02/23/18 16:09 Dose: Not Given Daptomycin 400 mg/ Sodium (Chloride) 100 mls @ 100 mls/hr IV MWF [facility]; Protocol Stop: 03/02/18 09:01 Insulin Aspart (Novolog) 0 unit SC Q6 [facility]; Protocol Last Admin: 02/23/18 12:07 Dose: Not Given Insulin Detemir (Levemir) 10 unit SC HS [facility] Last Admin: 02/22/18 21:59 Dose: Not Given Metoprolol Succinate (Toprol Xl) 25 mg PO BID [facility] Last Admin: 02/23/18 18:11 Dose: Not Given Sodium Polystyrene Sulfonate (Kayexalate Susp) 15 gm PO DAILY [facility] Last Admin: 02/23/18 10:07 Dose: Not Given Tamsulosin HCl (Flomax) 0.4 mg PO DAILY [facility] Last Admin: 02/23/18 10:31 Dose: 0.4 mg - Labs Labs: 02/22/18 14:14 02/23/18 06:33 PT 14.1 SECONDS (9.7-12.2) H 01/31/18 08:01 INR 1.3 01/31/18 08:01 APTT 30 SECONDS (21-34) 01/13/18 17:42 - Constitutional Appears: Well - Head Exam Head Exam: ATRAUMATIC, NORMAL INSPECTION, NORMOCEPHALIC - Eye Exam Eye Exam: EOMI, Normal appearance, PERRL Pupil Exam: NORMAL ACCOMODATION, PERRL - ENT Exam ENT Exam: Mucous Membranes Moist, Normal Exam - Neck Exam Neck Exam: Full ROM, Normal Inspection. absent: Lymphadenopathy - Respiratory Exam Respiratory Exam: Decreased Breath Sounds - Cardiovascular Exam Cardiovascular Exam: REGULAR RHYTHM, +S1, +S2 - GI/Abdominal Exam GI & Abdominal Exam: Soft, Diminished Bowel Sounds - Rectal Exam Rectal Exam: Deferred Assessment and Plan (1) JOY (acute kidney injury) Status: Acute (2) Change in mental status Status: Acute (3) Electrolyte imbalance Status: Acute (4) MRSA (methicillin resistant Staphylococcus aureus) septicemia Status: Acute (5) NSTEMI (non-ST elevated myocardial infarction) Status: Acute (6) Prophylactic measure Status: Acute (7) UTI (urinary tract infection) Status: Acute (8) CHF (congestive heart failure) Status: Chronic (9) CKD (chronic kidney disease) Status: Chronic (10) Diabetes mellitus Status: Chronic (11) Afib Status: Acute (12) Anemia Status: Acute (13) Bilateral hydronephrosis Status: Acute (14) CKD (chronic kidney disease) stage 4, GFR 15-29 ml/min Status: Acute (15) Metabolic acidosis Status: Acute (16) Dementia Status: Chronic
--- NOTE | 2018-02-23 20:13 | CT ---
Date of service: 02/23/18 CT chest, abdomen, and pelvis without IV contrast Indication: MRSA septicemia not clearing Technique: Contiguous axial images of the chest, abdomen, and pelvis without oral or IV contrast. Coronal and Sagittal reformats generated and reviewed. This CT exam was performed using 1 or more of the following dose reduction techniques: Automated exposure control, adjustment of the MAA and/or kV according to patient size, and/or use of iterative reconstruction technique. Radiation dose: Total exam DLP = 1089.50 MGy-cm. Comparison: CT chest, abdomen, and pelvis without IV contrast performed 01/15/18 Findings: Visualized portions of the inferior thyroid gland appear unremarkable. The unenhanced mediastinal and hilar vascular structures appear grossly within normal limits. Cardiomegaly. Coronary artery and valvular calcifications. Mild dependent bibasilar atelectasis. No pleural effusion. No pneumothorax. Small hiatal hernia. Gastroesophageal reflux. Pancreatic atrophy. Bilateral probable renal cysts. 13 mm exophytic posterior left upper pole renal lesion measures higher than expected for a simple cyst. The noncontrast liver, spleen, adrenal glands, and gallbladder appear unremarkable. The stomach is nondistended. Lack of oral contrast limits evaluation for bowel pathology. Right lower quadrant ostomy. The bowel loops appear within normal limits of caliber without evidence of intestinal obstruction. There is no definite free air. Dense atherosclerotic calcifications of the abdominal aorta. Interval development of infrarenal abdominal aortic aneurysm measures approximately 3.9 cm x 4.1 cm x 5.3 cm (AP by transverse by cc). Associated periaortic stranding and sub cm lymph nodes noted. Suggestion of mildly displaced calcified plaques on the right. Under distended markedly thick-walled irregular urinary bladder with Mendes catheter present. Large amount of air within the urinary bladder, possibly related to instrumentation. The prostate gland is not visualized. Osseous demineralization. Degenerative changes. Interval development erosion/irregularities at L2-L3 at the level of abdominal aortic aneurysm. Erosive changes are also noted to a lesser extent at L4-L5. Surgical clips, presacral space. Bilateral gynecomastia. Impression: Interval development of abdominal aortic aneurysm with associated periaortic stranding and sub cm lymph nodes. Appearance highly suspicious for mycotic aneurysm. Recommend CTA of the chest for further evaluation. Interval development erosion/irregularities at L2-L3 at the level of abdominal aortic aneurysm. Worrisome for discitis. Erosive changes are noted to a lesser extent at L4-L5. Recommend MRI without and with IV contrast for further evaluation. Under distended markedly thick-walled irregular urinary bladder with Mendes catheter present. Large amount of air within the urinary bladder, possibly related to instrumentation. Correlate with urinalysis. UTI must be considered. Bilateral probable renal cysts. 13 mm exophytic posterior left upper pole renal lesion measures higher than expected for a simple cyst. Additional findings as above. Findings discussed with the patient's JHONATHAN Leon on 02/23/18 at 7:23 p.m. findings discussed with Dr. Wade Hernandes on 02/23/18 at 7:52 p.m.
--- NOTE | 2018-02-23 21:06 | CP.PCM.CON ---
History of Present Illness - History of Present Illness History of Present Illness: Vasc Sx: Dr Ceron Pt averbal. Info obtained from EMR and nursing staff Pt is a 72M from snf, history of CKD, DM, dementia, BPH. Pt was admitted nearly 40 days ago with AMS, refusing to take meds, found to have MRSA bacteremia which has not been alleviated by antibiotic therapy. Per staff there are communications moving towards hospice. Pt had recent CT scan which demonstrated a ~3x4x5 cm infra-renal AA, with [employer] concerning for a mycotic anuerysm. Review of Systems - Review of Systems Systems not reviewed;Unavailable: Altered Mental Status Past Patient History - Infectious Disease Hx of Infectious Diseases: None - Tetanus Immunizations Tetanus Immunization: Unknown - Past Medical History & Family History Past Medical History?: Yes - Past Social History Smoking Status: Unknown If Ever Smoked - CARDIAC Hx Cardiac Disorders: Yes Hx Hypertension: Yes - PULMONARY Hx Respiratory Disorders: Yes - NEUROLOGICAL Hx Dementia: Yes - HEENT Hx HEENT Problems: No - RENAL Hx Chronic Kidney Disease: No - ENDOCRINE/METABOLIC Hx Diabetes Mellitus Type 2: Yes - HEMATOLOGICAL/ONCOLOGICAL Hx Anemia: Yes - INTEGUMENTARY Hx Dermatological Problems: No - MUSCULOSKELETAL/RHEUMATOLOGICAL Hx Falls: No - GASTROINTESTINAL Hx Gastrointestinal Disorders: No Hx Colostomy: Yes - GENITOURINARY/GYNECOLOGICAL Hx Genitourinary Disorders: No - PSYCHIATRIC Hx Substance Use: No - SURGICAL HISTORY Hx Surgeries: No Other/Comment: unable to obtain informations - ANESTHESIA Hx Anesthesia: No Hx Anesthesia Reactions: No Meds Allergies/Adverse Reactions: Allergies Allergy/AdvReac Type Severity Reaction Status Date / Time No Known Allergies Allergy Verified 01/13/18 17:08 - Medications Medications: Current Medications Acetaminophen (Tylenol 325mg Tab) 650 mg PO Q6 PRN PRN Reason: Fever >100.4 F Last Admin: 01/27/18 03:58 Dose: 650 mg Aspirin (Aspirin Chewable) 81 mg PO DAILY [facility] Last Admin: 02/23/18 10:31 Dose: 81 mg Famotidine (Pepcid) 20 mg PO DAILY [facility] Last Admin: 02/23/18 10:31 Dose: 20 mg Telavancin 650 mg/ Dextrose 100 mls @ 100 mls/hr IVPB TTS [facility]; Protocol Last Admin: 02/22/18 09:27 Dose: 100 mls/hr Sodium Bicarbonate 50 meq/ (Sodium Chloride) 1,050 mls @ 60 mls/hr IV .[id number] [facility] Last Admin: 02/23/18 16:09 Dose: Not Given Daptomycin 400 mg/ Sodium (Chloride) 100 mls @ 100 mls/hr IV MWF [facility]; Protocol Stop: 03/02/18 09:01 Insulin Aspart (Novolog) 0 unit SC Q6 [facility]; Protocol Last Admin: 02/23/18 18:34 Dose: Not Given Insulin Detemir (Levemir) 10 unit SC HS [facility] Last Admin: 02/22/18 21:59 Dose: Not Given Metoprolol Succinate (Toprol Xl) 25 mg PO BID [facility] Last Admin: 02/23/18 18:11 Dose: Not Given Sodium Polystyrene Sulfonate (Kayexalate Susp) 15 gm PO DAILY [facility] Last Admin: 02/23/18 10:07 Dose: Not Given Tamsulosin HCl (Flomax) 0.4 mg PO DAILY [facility] Last Admin: 02/23/18 10:31 Dose: 0.4 mg Physical Exam - Constitutional Appears: Older Than Stated Age, Cachectic, Chronically Ill - ENT Exam ENT Exam: Mucous Membranes Dry - Respiratory Exam Respiratory Exam: absent: Respiratory Distress - Cardiovascular Exam Cardiovascular Exam: absent: Tachycardia - GI/Abdominal Exam GI & Abdominal Exam: Soft. absent: Distended, Pulsatile Mass - Rectal Exam Rectal Exam: Deferred - Extremities Exam Extremities exam: Negative for: pedal edema Results - Vital Signs Recent Vital Signs: Last Vital Signs Temp 98 F 02/23/18 16:00 Pulse 120 H 02/23/18 16:00 Resp 20 02/23/18 16:00 BP 97/60 L 02/23/18 16:00 Pulse Ox 96 02/23/18 16:00 - Labs Result Diagrams: 02/22/18 14:14 02/23/18 06:33 Labs: Laboratory Results - last 24 hr 02/22/18 02/23/18 02/23/18 21:14 00:18 05:58 Sodium Potassium Chloride Carbon Dioxide Anion Gap BUN Creatinine Est GFR ( Amer) Est GFR (Non-Af Amer) POC Glucose (mg/dL) 157 H 146 H 149 H Random Glucose Calcium 02/23/18 02/23/18 06:33 11:09 Sodium 146 Potassium 4.7 Chloride 113 H Carbon Dioxide 19 L Anion Gap 19 BUN 47 H Creatinine 2.0 H Est GFR ( Amer) 40 Est GFR (Non-Af Amer) 33 POC Glucose (mg/dL) 127 H Random Glucose 144 H Calcium 9.2 Assessment & Plan - Assessment and Plan (Free Text) Assessment: 72M with complicated medical history; new findings of infra-renal AA Plan: pt poor historian unclear on family goals of care at this time would be poor surgical candidate with high likely-benson of post-operative complications Dr Ceron to evaluate pt in AM Gavino Dawson, PGY4
--- NOTE | 2018-02-23 21:09 | PN ---
DATE: 02/23/2018 SUBJECTIVE: The patient remains confused. He is not in any acute respiratory distress. However, he does have tachycardia and continues to have bacteremia. I think there were only two choices that either we go in all or we leave him alone as he is in a vegetative state. No quality of life and not in any distress. PHYSICAL EXAMINATION: HEENT: Head is atraumatic. NECK: Supple. LUNGS: Clear. HEART: S1 is irregularly irregular, tachycardia present. ABDOMEN: Soft, nontender. No guarding. No rigidity present. EXTREMITIES: Have no edema. LABORATORY DATA: Labs are noted. Labs show white count is 11.1, hemoglobin is 9.6, hematocrit 29, platelet count is 386. BUN is 47, creatinine is 2. Blood cultures x3 were positive. ASSESSMENT AND PLAN: I renewed his Cubicin and Telavancin at this time and we will be following. However, need to do something definitive, otherwise I do not think I can clear this bacteremia with only intravenous antibiotics as it seems to be a deep seated infection, which the antibiotics are probably not able to reach, probably an endovascular. We did a transesophageal echocardiography, which was negative and we did bone scans and see if we can repeat the CAT scan again. Teresa Barnett MD
[2018-02-23] MEDS: Insulin Detemir 100 units/ml Vial (Levemir) SC SCH (21:45)
--- NOTE | 2018-02-24 00:10 | PN ---
DATE: 02/23/2018 SUBJECTIVE: The patient is afebrile. He remains confused. He was tachycardic. Vitals have been worsening and he still remains with persistent bacteremia, hence I ordered a CAT scan of chest, abdomen and pelvis today as it is frustrating to see him to have bacteremia not improving. He remains on antibiotics at this time when I am dictating the medical note. Earlier I saw him, he was confused and remained in no acute respiratory distress. PHYSICAL EXAMINATION: NECK: Supple. LUNGS: Clear. HEART: S1, S2 regular. ABDOMEN: Soft. Colostomy is present. EXTREMITIES: Have no edema. He did have some sores which are dry at this time. LABORATORY DATA: White count is 11.1 yesterday, hemoglobin 9.6, hematocrit 29, platelet count is 386. BUN is 47, creatinine is 2, so creatinine has improved, but his labs and blood cultures are still positive from 02/16/2018. I have not repeated it, but decided to order a CAT scan of abdomen and pelvis, and the result just was told to me when I am dictating, which I am going to look at right now. It says CT was performed, the visualized portion of the inferior thyroid gland appears unremarkable. The ____, mediastinum, and hilar ____ grossly normal, mild dependent bibasilar atelectasis, no pleural effusion, no pneumothorax, small hiatal hernia, gastroesophageal reflux, pancreatic atrophy, probable bilateral renal cysts, 13 mm exophytic posterior left upper pole renal lesion measures higher than expected for a simple cyst. We do not know if there is an abscess. A noncontrast liver, spleen, adrenal, and gallbladder appear unremarkable. Stomach is not distended. Right lower lobe quadrant colostomy. Bowel loops appear normal without evidence of intestinal obstruction. Dense atherosclerotic calcification of the abnormal aorta, interval development of infrarenal abdominal aortic aneurysm measuring 3.9 cm x 4.1 cm x 5.3 cm, associated periaortic stranding and subcentimeter lymph nodes noted, suggestion of mildly displaced calcified plaque on the right. He also has under-distention markedly, marked thick-walled irregular urinary bladder with Mendes catheter present. Large amount of air within the urinary bladder related to instrumentation. Prostate gland is not visualized. Degenerative interval development of erosive irregularities at L2 and L3 at the level of abdominal aortic aneurysm. Erosive changes are also noted to a lesser extent at L4 and L5, surgical clips, bilateral gynecomastia, and it says bladder possible related to instrumentation, there were additional findings. I do not know what he said. He was saying diskitis, I do not read that. So we will try to continue IV antibiotics at this time and see how far this patient is because they are not able to even do a cystoscopy, I do not know if he can undergo anything for this aortic aneurysm. We will follow. Teresa Barnett MD
[2018-02-24] MEDS: (Novolog) Insulin Aspart, Recombinant 100 u/ml 10 ml vial SC SCH ×5 (00:43→18:00)
[2018-02-24] MEDS: TELAVANCIN HYDROCHLORIDE IVPB SCH (12:47)
[2018-02-24] MEDS: WATER IVPB SCH (12:47)
[2018-02-24] MEDS: DEXTROSE 5% IVPB SCH (12:47)
[2018-02-24] MEDS: Metoprolol Succinate 25 mg XL Tab PO SCH ×2 (13:00→17:19)
[2018-02-24] MEDS: Sod Polystyrene Sulf 15 gm/60 ml Susp PO SCH (13:18)
[2018-02-24 14:03] LABS: CALCIUM 9.1 mg/dl (8.6-10.4)
--- NOTE | 2018-02-24 14:06 | CP.PCM.PN ---
Subjective - Date & Time of Evaluation Date of Evaluation: 02/24/18 Time of Evaluation: 14:04 - Subjective Subjective: seen and examined no change clinically ros cannot be obtained due to mental status Objective - Vital Signs/Intake and Output Vital Signs (last 24 hours): Temp Pulse Resp BP Pulse Ox 97.6 F 96 H 20 103/57 L 100 02/24/18 08:00 02/24/18 13:53 02/24/18 13:53 02/24/18 13:53 02/24/18 13:53 Intake and Output: 02/24/18 02/24/18 06:59 18:59 Intake Total 480 Output Total 700 Balance -220 - Medications Medications: Current Medications Acetaminophen (Tylenol 325mg Tab) 650 mg PO Q6 PRN PRN Reason: Fever >100.4 F Last Admin: 01/27/18 03:58 Dose: 650 mg Aspirin (Aspirin Chewable) 81 mg PO DAILY [facility] Last Admin: 02/24/18 12:48 Dose: 81 mg Famotidine (Pepcid) 20 mg PO DAILY [facility] Last Admin: 02/24/18 12:47 Dose: 20 mg Telavancin 650 mg/ Dextrose 100 mls @ 100 mls/hr IVPB [facility]; Protocol Last Admin: 02/24/18 12:47 Dose: 100 mls/hr Daptomycin 400 mg/ Sodium (Chloride) 100 mls @ 100 mls/hr IV MWF [facility]; Protocol Stop: 03/02/18 09:01 Insulin Aspart (Novolog) 0 unit SC Q6 [facility]; Protocol Last Admin: 02/24/18 13:18 Dose: Not Given Insulin Detemir (Levemir) 10 unit SC HS [facility] Last Admin: 02/23/18 21:45 Dose: Not Given Metoprolol Succinate (Toprol Xl) 25 mg PO BID [facility] Last Admin: 02/24/18 13:00 Dose: 25 mg Sodium Polystyrene Sulfonate (Kayexalate Susp) 15 gm PO DAILY [facility] Last Admin: 02/24/18 13:18 Dose: Not Given Tamsulosin HCl (Flomax) 0.4 mg PO DAILY [facility] Last Admin: 02/24/18 12:47 Dose: 0.4 mg - Labs Labs: 02/22/18 14:14 02/24/18 13:41 PT 14.1 SECONDS (9.7-12.2) H 01/31/18 08:01 INR 1.3 01/31/18 08:01 APTT 30 SECONDS (21-34) 01/13/18 17:42 - Constitutional Appears: No Acute Distress, Chronically Ill - Head Exam Head Exam: NORMAL INSPECTION, NORMOCEPHALIC - Eye Exam Eye Exam: Normal appearance, PERRL - ENT Exam ENT Exam: Mucous Membranes Moist, Normal Exam - Neck Exam Neck Exam: Full ROM - Respiratory Exam Respiratory Exam: Decreased Breath Sounds, NORMAL BREATHING PATTERN - Cardiovascular Exam Cardiovascular Exam: REGULAR RHYTHM, RRR - GI/Abdominal Exam GI & Abdominal Exam: Soft, Normal Bowel Sounds - Neurological Exam Neurological Exam: Awake. absent: Alert - Skin Skin Exam: Dry, Intact Assessment and Plan (1) JOY (acute kidney injury) Status: Acute (2) Electrolyte imbalance Status: Acute (3) MRSA (methicillin resistant Staphylococcus aureus) septicemia Status: Acute (4) CHF (congestive heart failure) Status: Chronic (5) Diabetes mellitus Status: Chronic (6) Afib Status: Acute (7) Anemia Status: Acute - Assessment and Plan (Free Text) Assessment: ct abdomen noted, concern for mycotic aneurysm persistent bacteremia joy improved ckd plan antibiotics daily chems
[2018-02-24 14:22] LABS: HEMOGLOBIN 9.3 g/dL (12.0-18.0); MEAN CELL VOLUME 88.2 fL (80.0-94.0); MEAN CORPUSCULAR HEMOGLOBIN 28.7 pg (27.0-31.0); MEAN CORPUSCULAR HGB CONC 32.5 g/dL (33.0-37.0); MEAN PLATELET VOLUME 7.4 fL (7.2-11.7); RBC 3.23 Mil/uL (4.40-5.90); RED CELL DISTRIBUTION WIDTH 16.9 % (11.5-14.5); WHITE BLOOD COUNT 9.3 K/uL (4.8-10.8)
--- NOTE | 2018-02-24 15:30 | CP.PCM.PN ---
Subjective - Date & Time of Evaluation Date of Evaluation: 02/24/18 Time of Evaluation: 07:10 - Subjective Subjective: Vascular Surgery Pt seen and examined. No issues overnight. Pt with dementia, not responding to questions at this time. Tachycardia continues. Objective - Vital Signs/Intake and Output Vital Signs (last 24 hours): Temp Pulse Resp BP Pulse Ox 97.6 F 96 H 20 103/57 L 100 02/24/18 08:00 02/24/18 13:53 02/24/18 13:53 02/24/18 13:53 02/24/18 13:53 Intake and Output: 02/24/18 02/24/18 06:59 18:59 Intake Total 480 240 Output Total 700 800 Balance -220 -560 - Medications Medications: Current Medications Acetaminophen (Tylenol 325mg Tab) 650 mg PO Q6 PRN PRN Reason: Fever >100.4 F Last Admin: 01/27/18 03:58 Dose: 650 mg Aspirin (Aspirin Chewable) 81 mg PO DAILY [facility] Last Admin: 02/24/18 12:48 Dose: 81 mg Famotidine (Pepcid) 20 mg PO DAILY [facility] Last Admin: 02/24/18 12:47 Dose: 20 mg Telavancin 650 mg/ Dextrose 100 mls @ 100 mls/hr IVPB [facility]; Protocol Last Admin: 02/24/18 12:47 Dose: 100 mls/hr Daptomycin 400 mg/ Sodium (Chloride) 100 mls @ 100 mls/hr IV MWF [facility]; Protocol Stop: 03/02/18 09:01 Insulin Aspart (Novolog) 0 unit SC Q6 [facility]; Protocol Last Admin: 02/24/18 13:18 Dose: Not Given Insulin Detemir (Levemir) 10 unit SC HS [facility] Last Admin: 02/23/18 21:45 Dose: Not Given Metoprolol Succinate (Toprol Xl) 25 mg PO BID [facility] Last Admin: 02/24/18 13:00 Dose: 25 mg Sodium Polystyrene Sulfonate (Kayexalate Susp) 15 gm PO DAILY [facility] Last Admin: 02/24/18 13:18 Dose: Not Given Tamsulosin HCl (Flomax) 0.4 mg PO DAILY [facility] Last Admin: 02/24/18 12:47 Dose: 0.4 mg - Labs Labs: 02/24/18 13:41 02/24/18 13:41 PT 14.1 SECONDS (9.7-12.2) H 01/31/18 08:01 INR 1.3 01/31/18 08:01 APTT 30 SECONDS (21-34) 01/13/18 17:42 - Constitutional Appears: Non-toxic, Chronically Ill - Head Exam Head Exam: ATRAUMATIC, NORMOCEPHALIC - Eye Exam Eye Exam: absent: Conjunctival injection, Scleral icterus - Respiratory Exam Respiratory Exam: NORMAL BREATHING PATTERN. absent: Respiratory Distress - Cardiovascular Exam Cardiovascular Exam: Tachycardia, +S1, +S2 - GI/Abdominal Exam GI & Abdominal Exam: Soft. absent: Distended, Tenderness Additional comments: ostomy functioning - Neurological Exam Neurological Exam: Altered - Skin Skin Exam: Dry, Warm Assessment and Plan - Assessment and Plan (Free Text) Assessment: 72M with infra-renal AA Plan: No plans for AAA repair in this pt Continue IV abx Recommend hospice care D/W Dr. Jie Marquez PGY4
--- NOTE | 2018-02-24 15:58 | CP.PCM.PN ---
Subjective - Date & Time of Evaluation Date of Evaluation: 02/24/18 Time of Evaluation: 14:00 - Subjective Subjective: dictated Objective - Vital Signs/Intake and Output Vital Signs (last 24 hours): Temp Pulse Resp BP Pulse Ox 97.6 F 96 H 20 103/57 L 100 02/24/18 08:00 02/24/18 13:53 02/24/18 13:53 02/24/18 13:53 02/24/18 13:53 Intake and Output: 02/24/18 02/24/18 06:59 18:59 Intake Total 480 240 Output Total 700 800 Balance -220 -560 - Medications Medications: Current Medications Acetaminophen (Tylenol 325mg Tab) 650 mg PO Q6 PRN PRN Reason: Fever >100.4 F Last Admin: 01/27/18 03:58 Dose: 650 mg Aspirin (Aspirin Chewable) 81 mg PO DAILY [facility] Last Admin: 02/24/18 12:48 Dose: 81 mg Famotidine (Pepcid) 20 mg PO DAILY [facility] Last Admin: 02/24/18 12:47 Dose: 20 mg Telavancin 650 mg/ Dextrose 100 mls @ 100 mls/hr IVPB TTS [facility]; Protocol Last Admin: 02/24/18 12:47 Dose: 100 mls/hr Daptomycin 400 mg/ Sodium (Chloride) 100 mls @ 100 mls/hr IV MWF [facility]; Protocol Stop: 03/02/18 09:01 Insulin Aspart (Novolog) 0 unit SC Q6 [facility]; Protocol Last Admin: 02/24/18 13:18 Dose: Not Given Insulin Detemir (Levemir) 10 unit SC HS [facility] Last Admin: 02/23/18 21:45 Dose: Not Given Metoprolol Succinate (Toprol Xl) 25 mg PO BID [facility] Last Admin: 02/24/18 13:00 Dose: 25 mg Sodium Polystyrene Sulfonate (Kayexalate Susp) 15 gm PO DAILY [facility] Last Admin: 02/24/18 13:18 Dose: Not Given Tamsulosin HCl (Flomax) 0.4 mg PO DAILY [facility] Last Admin: 02/24/18 12:47 Dose: 0.4 mg - Labs Labs: 02/24/18 13:41 02/24/18 13:41 PT 14.1 SECONDS (9.7-12.2) H 01/31/18 08:01 INR 1.3 09/17/18 08:01 APTT 30 SECONDS (21-34) 01/13/18 17:42
[2018-02-24] MEDS: Insulin Detemir 100 units/ml Vial (Levemir) SC SCH ×2 (21:05→21:54)
--- NOTE | 2018-02-24 22:06 | CP.PCM.PN ---
Subjective - Date & Time of Evaluation Date of Evaluation: 02/24/18 Time of Evaluation: 09:00 - Subjective Subjective: clinically same Objective - Vital Signs/Intake and Output Vital Signs (last 24 hours): Temp Pulse Resp BP Pulse Ox 97.8 F 138 H 20 94/60 L 98 02/24/18 15:32 02/24/18 15:32 02/24/18 15:32 02/24/18 15:32 02/24/18 15:32 Intake and Output: 02/24/18 02/25/18 18:59 06:59 Intake Total 240 Output Total 800 Balance -560 - Medications Medications: Current Medications Acetaminophen (Tylenol 325mg Tab) 650 mg PO Q6 PRN PRN Reason: Fever >100.4 F Last Admin: 01/27/18 03:58 Dose: 650 mg Aspirin (Aspirin Chewable) 81 mg PO DAILY [facility] Last Admin: 02/24/18 12:48 Dose: 81 mg Famotidine (Pepcid) 20 mg PO DAILY [facility] Last Admin: 02/24/18 12:47 Dose: 20 mg Telavancin 650 mg/ Dextrose 100 mls @ 100 mls/hr IVPB TTS [facility]; Protocol Last Admin: 02/24/18 12:47 Dose: 100 mls/hr Daptomycin 400 mg/ Sodium (Chloride) 100 mls @ 100 mls/hr IV MWF [facility]; Protocol Stop: 03/02/18 09:01 Insulin Aspart (Novolog) 0 unit SC Q6 [facility]; Protocol Last Admin: 02/24/18 18:00 Dose: 3 units Insulin Detemir (Levemir) 10 unit SC HS [facility] Last Admin: 02/24/18 21:54 Dose: Not Given Metoprolol Succinate (Toprol Xl) 25 mg PO BID [facility] Last Admin: 02/24/18 17:19 Dose: 25 mg Sodium Polystyrene Sulfonate (Kayexalate Susp) 15 gm PO DAILY [facility] Last Admin: 02/24/18 13:18 Dose: Not Given Tamsulosin HCl (Flomax) 0.4 mg PO DAILY [facility] Last Admin: 02/24/18 12:47 Dose: 0.4 mg - Labs Labs: 02/24/18 13:41 02/24/18 13:41 PT 14.1 SECONDS (9.7-12.2) H 01/31/18 08:01 INR 1.3 01/31/18 08:01 APTT 30 SECONDS (21-34) 01/13/18 17:42 Assessment and Plan (1) JOY (acute kidney injury) Status: Acute (2) Change in mental status Status: Acute (3) Electrolyte imbalance Status: Acute (4) MRSA (methicillin resistant Staphylococcus aureus) septicemia Status: Acute (5) NSTEMI (non-ST elevated myocardial infarction) Status: Acute (6) Prophylactic measure Status: Acute (7) UTI (urinary tract infection) Status: Acute (8) CHF (congestive heart failure) Status: Chronic (9) CKD (chronic kidney disease) Status: Chronic (10) Diabetes mellitus Status: Chronic (11) Afib Status: Acute (12) Anemia Status: Acute (13) Bilateral hydronephrosis Status: Acute (14) CKD (chronic kidney disease) stage 4, GFR 15-29 ml/min Status: Acute (15) Metabolic acidosis Status: Acute (16) Dementia Status: Chronic
[2018-02-25] MEDS: (Novolog) Insulin Aspart, Recombinant 100 u/ml 10 ml vial SC SCH ×4 (00:58→17:34)
--- NOTE | 2018-02-25 05:56 | CP.PCM.PN ---
Subjective - Date & Time of Evaluation Date of Evaluation: 02/23/18 Time of Evaluation: 09:30 - Subjective Subjective: Patient seen and evaluated No new events noted Physical Exam - Constitutional Appears: Well - Head Exam Head Exam: ATRAUMATIC - ENT Exam ENT Exam: Mucous Membranes Moist - Respiratory Exam Respiratory Exam: Clear to Auscultation Bilateral - Cardiovascular Exam Cardiovascular Exam: Irregular Rhythm, +S1, +S2. absent: Systolic Murmur - GI/Abdominal Exam GI & Abdominal Exam: Soft. absent: Tenderness - Psychiatric Exam Psychiatric exam: Flat Affect - Skin Skin Exam: Warm - Impressions Impression: EKG: atrial flutter versus 2:1 atrial tachycardia, NSST's Assessment & Plan - Assessment and Plan (Free Text) Assessment: 1. atrial tachycardia improving 2. Severe LV dysfunction EF 20-25% 3. s/p MRSA sepsis 4. CKD Objective - Vital Signs/Intake and Output Vital Signs (last 24 hours): Temp Pulse Resp BP Pulse Ox 98.3 F 130 H 20 99/64 L 98 02/24/18 23:54 02/24/18 23:54 02/24/18 23:54 02/24/18 23:54 02/24/18 23:54 Intake and Output: 02/24/18 02/25/18 18:59 06:59 Intake Total 240 Output Total 800 250 Balance -560 -250 - Medications Medications: Current Medications Acetaminophen (Tylenol 325mg Tab) 650 mg PO Q6 PRN PRN Reason: Fever >100.4 F Last Admin: 01/27/18 03:58 Dose: 650 mg Aspirin (Aspirin Chewable) 81 mg PO DAILY [facility] Last Admin: 02/24/18 12:48 Dose: 81 mg Famotidine (Pepcid) 20 mg PO DAILY [facility] Last Admin: 02/24/18 12:47 Dose: 20 mg Telavancin 650 mg/ Dextrose 100 mls @ 100 mls/hr IVPB TTS [facility]; Protocol Last Admin: 02/24/18 12:47 Dose: 100 mls/hr Daptomycin 400 mg/ Sodium (Chloride) 100 mls @ 100 mls/hr IV MWF [facility]; Protocol Stop: 03/02/18 09:01 Insulin Aspart (Novolog) 0 unit SC Q6 [facility]; Protocol Last Admin: 02/25/18 00:58 Dose: Not Given Insulin Detemir (Levemir) 10 unit SC HS [facility] Last Admin: 02/24/18 21:54 Dose: Not Given Metoprolol Succinate (Toprol Xl) 25 mg PO BID [facility] Last Admin: 02/24/18 17:19 Dose: 25 mg Sodium Polystyrene Sulfonate (Kayexalate Susp) 15 gm PO DAILY [facility] Last Admin: 02/24/18 13:18 Dose: Not Given Tamsulosin HCl (Flomax) 0.4 mg PO DAILY [facility] Last Admin: 02/24/18 12:47 Dose: 0.4 mg - Labs Labs: 02/24/18 13:41 02/24/18 13:41 PT 14.1 SECONDS (9.7-12.2) H 01/31/18 08:01 INR 1.3 01/31/18 08:01 APTT 30 SECONDS (21-34) 01/13/18 17:42
--- NOTE | 2018-02-25 05:57 | CP.PCM.PN ---
Subjective - Date & Time of Evaluation Date of Evaluation: 02/24/18 Time of Evaluation: 10:10 - Subjective Subjective: Patient seen and evaluated No new events noted Physical Exam - Constitutional Appears: Well - Head Exam Head Exam: ATRAUMATIC - ENT Exam ENT Exam: Mucous Membranes Moist - Respiratory Exam Respiratory Exam: Clear to Auscultation Bilateral - Cardiovascular Exam Cardiovascular Exam: Irregular Rhythm, +S1, +S2. absent: Systolic Murmur - GI/Abdominal Exam GI & Abdominal Exam: Soft. absent: Tenderness - Psychiatric Exam Psychiatric exam: Flat Affect - Skin Skin Exam: Warm - Impressions Impression: EKG: atrial flutter versus 2:1 atrial tachycardia, NSST's Assessment & Plan - Assessment and Plan (Free Text) Assessment: 1. atrial tachycardia improving 2. Severe LV dysfunction EF 20-25% 3. s/p MRSA sepsis 4. CKD Objective - Vital Signs/Intake and Output Vital Signs (last 24 hours): Temp Pulse Resp BP Pulse Ox 98.3 F 130 H 20 99/64 L 98 02/24/18 23:54 02/24/18 23:54 02/24/18 23:54 02/24/18 23:54 02/24/18 23:54 Intake and Output: 02/24/18 02/25/18 18:59 06:59 Intake Total 240 Output Total 800 250 Balance -560 -250 - Medications Medications: Current Medications Acetaminophen (Tylenol 325mg Tab) 650 mg PO Q6 PRN PRN Reason: Fever >100.4 F Last Admin: 01/27/18 03:58 Dose: 650 mg Aspirin (Aspirin Chewable) 81 mg PO DAILY [facility] Last Admin: 02/24/18 12:48 Dose: 81 mg Famotidine (Pepcid) 20 mg PO DAILY [facility] Last Admin: 02/24/18 12:47 Dose: 20 mg Telavancin 650 mg/ Dextrose 100 mls @ 100 mls/hr IVPB TTS [facility]; Protocol Last Admin: 02/24/18 12:47 Dose: 100 mls/hr Daptomycin 400 mg/ Sodium (Chloride) 100 mls @ 100 mls/hr IV MWF [facility]; Protocol Stop: 03/02/18 09:01 Insulin Aspart (Novolog) 0 unit SC Q6 [facility]; Protocol Last Admin: 02/25/18 00:58 Dose: Not Given Insulin Detemir (Levemir) 10 unit SC HS [facility] Last Admin: 02/24/18 21:54 Dose: Not Given Metoprolol Succinate (Toprol Xl) 25 mg PO BID [facility] Last Admin: 02/24/18 17:19 Dose: 25 mg Sodium Polystyrene Sulfonate (Kayexalate Susp) 15 gm PO DAILY [facility] Last Admin: 02/24/18 13:18 Dose: Not Given Tamsulosin HCl (Flomax) 0.4 mg PO DAILY [facility] Last Admin: 02/24/18 12:47 Dose: 0.4 mg - Labs Labs: 02/24/18 13:41 02/24/18 13:41 PT 14.1 SECONDS (9.7-12.2) H 01/31/18 08:01 INR 1.3 01/31/18 08:01 APTT 30 SECONDS (21-34) 01/13/18 17:42
--- NOTE | 2018-02-25 08:01 | CP.PCM.PN ---
Subjective - Date & Time of Evaluation Date of Evaluation: 02/25/18 Time of Evaluation: 08:00 - Subjective Subjective: as communicated to Dr juan gautam patient is not a candidate for any type of AAA repair Objective - Vital Signs/Intake and Output Vital Signs (last 24 hours): Temp Pulse Resp BP Pulse Ox 97.5 F L 142 H 20 107/73 95 02/25/18 07:57 02/25/18 07:57 02/25/18 07:57 02/25/18 07:57 02/25/18 07:57 Intake and Output: 02/25/18 02/25/18 06:59 18:59 Output Total 500 Balance -500 - Medications Medications: Current Medications Acetaminophen (Tylenol 325mg Tab) 650 mg PO Q6 PRN PRN Reason: Fever >100.4 F Last Admin: 01/27/18 03:58 Dose: 650 mg Aspirin (Aspirin Chewable) 81 mg PO DAILY [facility] Last Admin: 02/24/18 12:48 Dose: 81 mg Famotidine (Pepcid) 20 mg PO DAILY [facility] Last Admin: 02/24/18 12:47 Dose: 20 mg Telavancin 650 mg/ Dextrose 100 mls @ 100 mls/hr IVPB TTS [facility]; Protocol Last Admin: 02/24/18 12:47 Dose: 100 mls/hr Daptomycin 400 mg/ Sodium (Chloride) 100 mls @ 100 mls/hr IV MWF [facility]; Protocol Stop: 03/02/18 09:01 Insulin Aspart (Novolog) 0 unit SC Q6 [facility]; Protocol Last Admin: 02/25/18 07:27 Dose: Not Given Insulin Detemir (Levemir) 10 unit SC HS [facility] Last Admin: 02/24/18 21:54 Dose: Not Given Metoprolol Succinate (Toprol Xl) 25 mg PO BID [facility] Last Admin: 02/24/18 17:19 Dose: 25 mg Sodium Polystyrene Sulfonate (Kayexalate Susp) 15 gm PO DAILY [facility] Last Admin: 02/24/18 13:18 Dose: Not Given Tamsulosin HCl (Flomax) 0.4 mg PO DAILY [facility] Last Admin: 02/24/18 12:47 Dose: 0.4 mg - Labs Labs: 02/24/18 13:41 02/24/18 13:41 PT 14.1 SECONDS (9.7-12.2) H 01/31/18 08:01 INR 1.3 01/31/18 08:01 APTT 30 SECONDS (21-34) 01/13/18 17:42
[2018-02-25 08:28] LABS: BASO # 0.1 K/uL (0.0-0.2); BASO % 0.9 % (0.0-2.0); EOS # 0.3 K/uL (0.0-0.7); EOS % 3.6 % (0.0-4.0); HEMOGLOBIN 9.1 g/dL (12.0-18.0); LYMPH % 11.3 % (20.0-40.0); MEAN CELL VOLUME 88.2 fL (80.0-94.0); MEAN CORPUSCULAR HEMOGLOBIN 29.2 pg (27.0-31.0); MEAN CORPUSCULAR HGB CONC 33.1 g/dL (33.0-37.0); MEAN PLATELET VOLUME 7.2 fL (7.2-11.7); MONO # 0.5 K/uL (0.0-0.8); MONO % 5.7 % (0.0-10.0); NEUT # 7.2 K/uL (1.8-7.0); NEUT % 78.5 % (50.0-75.0); NRBC % 0.1 % (0.0-2.0); RBC 3.12 Mil/uL (4.40-5.90); RED CELL DISTRIBUTION WIDTH 16.7 % (11.5-14.5); WHITE BLOOD COUNT 9.2 K/uL (4.8-10.8)
[2018-02-25] MEDS: Sod Polystyrene Sulf 15 gm/60 ml Susp PO SCH (09:14)
[2018-02-25] MEDS: Metoprolol Succinate 25 mg XL Tab PO SCH ×2 (09:14→17:34)
[2018-02-25 09:27] LABS: CALCIUM 9.3 mg/dl (8.6-10.4)
--- NOTE | 2018-02-25 11:47 | CP.PCM.PN ---
Subjective - Date & Time of Evaluation Date of Evaluation: 02/25/18 Time of Evaluation: 11:47 - Subjective Subjective: PGY-2 Progress Note: Dr. Leticia Hernandes's Service Patient seen and examined at bedside. Per nursing no acute events occurred. ROS unable to be obtained due to current clinical condition. Objective - Vital Signs/Intake and Output Vital Signs (last 24 hours): Temp Pulse Resp BP Pulse Ox 97.5 F L 142 H 20 107/73 95 02/25/18 07:57 02/25/18 07:57 02/25/18 07:57 02/25/18 07:57 02/25/18 07:57 Intake and Output: 02/25/18 02/25/18 06:59 18:59 Output Total 500 Balance -500 - Medications Medications: Current Medications Acetaminophen (Tylenol 325mg Tab) 650 mg PO Q6 PRN PRN Reason: Fever >100.4 F Last Admin: 01/27/18 03:58 Dose: 650 mg Aspirin (Aspirin Chewable) 81 mg PO DAILY [facility] Last Admin: 02/25/18 09:14 Dose: 81 mg Famotidine (Pepcid) 20 mg PO DAILY [facility] Last Admin: 02/25/18 09:14 Dose: 20 mg Telavancin 650 mg/ Dextrose 100 mls @ 100 mls/hr IVPB TTS [facility]; Protocol Last Admin: 02/24/18 12:47 Dose: 100 mls/hr Daptomycin 400 mg/ Sodium (Chloride) 100 mls @ 100 mls/hr IV MWF [facility]; Protocol Stop: 03/02/18 09:01 Last Admin: 02/25/18 10:12 Dose: 100 mls/hr Insulin Aspart (Novolog) 0 unit SC Q6 [facility]; Protocol Last Admin: 02/25/18 07:27 Dose: Not Given Insulin Detemir (Levemir) 10 unit SC HS [facility] Last Admin: 02/24/18 21:54 Dose: Not Given Metoprolol Succinate (Toprol Xl) 25 mg PO BID [facility] Last Admin: 02/25/18 09:14 Dose: 25 mg Sodium Polystyrene Sulfonate (Kayexalate Susp) 15 gm PO DAILY [facility] Last Admin: 02/25/18 09:14 Dose: 15 gm Tamsulosin HCl (Flomax) 0.4 mg PO DAILY [facility] Last Admin: 02/25/18 09:14 Dose: 0.4 mg - Labs Labs: 02/25/18 08:16 02/25/18 08:16 PT 14.1 SECONDS (9.7-12.2) H 01/31/18 08:01 INR 1.3 01/31/18 08:01 APTT 30 SECONDS (21-34) 01/13/18 17:42 - Head Exam Head Exam: NORMAL INSPECTION - Eye Exam Eye Exam: EOMI, Normal appearance, PERRL Pupil Exam: NORMAL ACCOMODATION - ENT Exam ENT Exam: Mucous Membranes Moist, Normal Oropharynx - Respiratory Exam Respiratory Exam: Clear to Ausculation Bilateral, NORMAL BREATHING PATTERN. absent: Prolonged Expiratory Phase, Respiratory Distress - Cardiovascular Exam Cardiovascular Exam: REGULAR RHYTHM, +S1, +S2. absent: Rubs - GI/Abdominal Exam GI & Abdominal Exam: Normal Bowel Sounds - Neurological Exam Neurological Exam: Awake, CN II-XII Intact, Normal Gait, Oriented x3 - Psychiatric Exam Psychiatric exam: Normal Affect, Normal Mood - Skin Skin Exam: Dry, Intact Assessment and Plan - Assessment and Plan (Free Text) Assessment: 72 yo man with history of dementia, DM, BPH, stage 4 CKD who is admitted for altered mental status Plan: UTI Blood cultures: :Positive for MRSA U/A positive for infection: Leukocyte esterase 3+ -Daptomycin 400mg IV MWF -Meropenem 500mg IVPB Daily -Telavancin 650mg IV TTS -Tylenol 650mg PO Q6 PRN Hypertension -Metoprolol 25mg PO BID Tachycardia -Cardiology consulted. Help appreciated. BPH -Tamsulosin .4mg PO Daily DM -ISS -Insulin Detemir 10unit SC HS Hyperkalemic -Sodium Polystyrene 15gm PO Daily Sacral ulcer -Wound care applied ESRD -Nephrology consulted. Help appreciated. PPX -Pepcid 20mg PO BID All management per Dr. Leticia Hernandes.
--- NOTE | 2018-02-25 12:31 | CP.PCM.PN ---
Subjective - Date & Time of Evaluation Date of Evaluation: 02/25/18 Time of Evaluation: 08:30 - Subjective Subjective: clinically same Objective - Vital Signs/Intake and Output Vital Signs (last 24 hours): Temp Pulse Resp BP Pulse Ox 97.5 F L 142 H 20 107/73 95 02/25/18 07:57 02/25/18 07:57 02/25/18 07:57 02/25/18 07:57 02/25/18 07:57 Intake and Output: 02/25/18 02/25/18 06:59 18:59 Output Total 500 Balance -500 - Medications Medications: Current Medications Acetaminophen (Tylenol 325mg Tab) 650 mg PO Q6 PRN PRN Reason: Fever >100.4 F Last Admin: 01/27/18 03:58 Dose: 650 mg Aspirin (Aspirin Chewable) 81 mg PO DAILY [facility] Last Admin: 02/25/18 09:14 Dose: 81 mg Famotidine (Pepcid) 20 mg PO DAILY [facility] Last Admin: 02/25/18 09:14 Dose: 20 mg Heparin Sodium (Porcine) (Heparin) 5,000 units SC Q12H [facility] Telavancin 650 mg/ Dextrose 100 mls @ 100 mls/hr IVPB TTS [facility]; Protocol Last Admin: 02/24/18 12:47 Dose: 100 mls/hr Daptomycin 400 mg/ Sodium (Chloride) 100 mls @ 100 mls/hr IV MWF [facility]; Protocol Stop: 03/02/18 09:01 Last Admin: 02/25/18 10:12 Dose: 100 mls/hr Insulin Aspart (Novolog) 0 unit SC Q6 [facility]; Protocol Last Admin: 02/25/18 12:20 Dose: Not Given Insulin Detemir (Levemir) 10 unit SC HS [facility] Last Admin: 02/24/18 21:54 Dose: Not Given Metoprolol Succinate (Toprol Xl) 25 mg PO BID [facility] Last Admin: 02/25/18 09:14 Dose: 25 mg Sodium Polystyrene Sulfonate (Kayexalate Susp) 15 gm PO DAILY [facility] Last Admin: 02/25/18 09:14 Dose: 15 gm Tamsulosin HCl (Flomax) 0.4 mg PO DAILY [facility] Last Admin: 02/25/18 09:14 Dose: 0.4 mg - Labs Labs: 02/25/18 08:16 02/25/18 08:16 PT 14.1 SECONDS (9.7-12.2) H 01/31/18 08:01 INR 1.3 01/31/18 08:01 APTT 30 SECONDS (21-34) 01/13/18 17:42 Assessment and Plan (1) JOY (acute kidney injury) Status: Acute (2) Change in mental status Status: Acute (3) Electrolyte imbalance Status: Acute (4) MRSA (methicillin resistant Staphylococcus aureus) septicemia Status: Acute (5) NSTEMI (non-ST elevated myocardial infarction) Status: Acute (6) Prophylactic measure Status: Acute (7) UTI (urinary tract infection) Status: Acute (8) CHF (congestive heart failure) Status: Chronic (9) CKD (chronic kidney disease) Status: Chronic (10) Diabetes mellitus Status: Chronic (11) Afib Status: Acute (12) Anemia Status: Acute (13) Bilateral hydronephrosis Status: Acute (14) CKD (chronic kidney disease) stage 4, GFR 15-29 ml/min Status: Acute (15) Metabolic acidosis Status: Acute (16) Dementia Status: Chronic
--- NOTE | 2018-02-25 19:08 | CP.PCM.PN ---
Subjective - Date & Time of Evaluation Date of Evaluation: 02/25/18 Time of Evaluation: 15:15 - Subjective Subjective: dictated Objective - Vital Signs/Intake and Output Vital Signs (last 24 hours): Temp Pulse Resp BP Pulse Ox 98.6 F 138 H 20 98/68 L 95 02/25/18 16:00 02/25/18 16:00 02/25/18 16:00 02/25/18 16:00 02/25/18 16:00 Intake and Output: 02/25/18 02/26/18 18:59 06:59 Intake Total 100 Output Total 350 Balance -250 - Medications Medications: Current Medications Acetaminophen (Tylenol 325mg Tab) 650 mg PO Q6 PRN PRN Reason: Fever >100.4 F Last Admin: 01/27/18 03:58 Dose: 650 mg Aspirin (Aspirin Chewable) 81 mg PO DAILY [facility] Last Admin: 02/25/18 09:14 Dose: 81 mg Famotidine (Pepcid) 20 mg PO DAILY [facility] Last Admin: 02/25/18 09:14 Dose: 20 mg Heparin Sodium (Porcine) (Heparin) 5,000 units SC Q12H [facility] Telavancin 650 mg/ Dextrose 100 mls @ 100 mls/hr IVPB TTS [facility]; Protocol Last Admin: 02/24/18 12:47 Dose: 100 mls/hr Daptomycin 400 mg/ Sodium (Chloride) 100 mls @ 100 mls/hr IV MWF [facility]; Protocol Stop: 03/02/18 09:01 Last Admin: 02/25/18 10:12 Dose: 100 mls/hr Insulin Aspart (Novolog) 0 unit SC Q6 [facility]; Protocol Last Admin: 02/25/18 17:34 Dose: Not Given Insulin Detemir (Levemir) 10 unit SC HS [facility] Last Admin: 02/24/18 21:54 Dose: Not Given Metoprolol Succinate (Toprol Xl) 25 mg PO BID [facility] Last Admin: 02/25/18 17:34 Dose: Not Given Sodium Polystyrene Sulfonate (Kayexalate Susp) 15 gm PO DAILY [facility] Last Admin: 02/25/18 09:14 Dose: 15 gm Tamsulosin HCl (Flomax) 0.4 mg PO DAILY [facility] Last Admin: 02/25/18 09:14 Dose: 0.4 mg - Labs Labs: 02/25/18 08:16 02/25/18 08:16 PT 14.1 SECONDS (9.7-12.2) H 01/31/18 08:01 INR 1.3 01/31/18 08:01 APTT 30 SECONDS (21-34) 01/13/18 17:42
[2018-02-25] MEDS: Insulin Detemir 100 units/ml Vial (Levemir) SC SCH (21:14)
--- NOTE | 2018-02-25 21:33 | PN ---
DATE: 02/25/2018 SUBJECTIVE: The patient was seen today, and I read the note written, and consulted in by Dr. Ceron, and he raised that this patient is not a candidate for any kind of AAA, and he also has diskitis I think, but the source is probably in the AAA, and the patient is noncommunicative, functional quadriplegia. He is demented and not able to communicate much, has psych issues and has persistent MRSA which did not clear with antibiotics. So at this time, I would suggest him to be made hospice based on his condition and to withdraw antibiotics, but for now until I hear from Dr. Wade Hernandes and CARLOS, we will leave the antibiotics on. PHYSICAL EXAMINATION: VITAL SIGNS: However, he remains afebrile. T-max is 98.6, heart rate of 138 with irregularly irregular heart rate, blood pressure is 98/68, respirations are 20. GENERAL: He is confused, nonverbal. HEAD: Atraumatic. NECK: Supple. LUNGS: Clear. HEART: S1, S2 are irregularly irregular. ABDOMEN: Soft. Has a colostomy. EXTREMITIES: Have no edema. He is bed-bound mostly. LABORATORY DATA: His labs show white count is 9.2, hemoglobin 9.1, and platelets are 328. Creatinine is 1.8 now, BUN is 33. ASSESSMENT AND PLAN: He remains on telavancin as well as Cubicin at this time, which I am alternating every other day to cover for methicillin-resistant Staphylococcus aureus as he has renal insufficiency. I am told that the power of assistant city attorney only wants to speak to Dr. Hernandes, so we will wait for their recommendations. Teresa Barnett MD
[2018-02-26] MEDS: (Novolog) Insulin Aspart, Recombinant 100 u/ml 10 ml vial SC SCH ×4 (00:45→18:05)
--- NOTE | 2018-02-26 10:21 | CP.PCM.CON ---
History of Present Illness - History of Present Illness History of Present Illness: SPINE Pt's chart reviewed. Unable to obtain any history from pt secondary to dementia. Pt quadriplegic, long standing MRSA, prob mycotic abd aneurysm, renal disease, cardiac disease (ejection fraction 10%). Radiologist rec MRI based on findings of CT, but results would not change this man's condition nor quality of life at all. Do not see any indication for invasive procedures. Agree with recommendation of hospice care. Thanks. Past Patient History - Infectious Disease Hx of Infectious Diseases: None - Tetanus Immunizations Tetanus Immunization: Unknown - Past Medical History & Family History Past Medical History?: Yes - Past Social History Smoking Status: Unknown If Ever Smoked - CARDIAC Hx Cardiac Disorders: Yes Hx Hypertension: Yes - PULMONARY Hx Respiratory Disorders: Yes - NEUROLOGICAL Hx Dementia: Yes - HEENT Hx HEENT Problems: No - RENAL Hx Chronic Kidney Disease: No - ENDOCRINE/METABOLIC Hx Diabetes Mellitus Type 2: Yes - HEMATOLOGICAL/ONCOLOGICAL Hx Anemia: Yes - INTEGUMENTARY Hx Dermatological Problems: No - MUSCULOSKELETAL/RHEUMATOLOGICAL Hx Falls: No - GASTROINTESTINAL Hx Gastrointestinal Disorders: No Hx Colostomy: Yes - GENITOURINARY/GYNECOLOGICAL Hx Genitourinary Disorders: No - PSYCHIATRIC Hx Substance Use: No - SURGICAL HISTORY Hx Surgeries: No Other/Comment: unable to obtain informations - ANESTHESIA Hx Anesthesia: No Hx Anesthesia Reactions: No Meds Allergies/Adverse Reactions: Allergies Allergy/AdvReac Type Severity Reaction Status Date / Time No Known Allergies Allergy Verified 01/13/18 17:08 - Medications Medications: Current Medications Acetaminophen (Tylenol 325mg Tab) 650 mg PO Q6 PRN PRN Reason: Fever >100.4 F Last Admin: 01/27/18 03:58 Dose: 650 mg Aspirin (Aspirin Chewable) 81 mg PO DAILY [facility] Last Admin: 02/25/18 09:14 Dose: 81 mg Famotidine (Pepcid) 20 mg PO DAILY [facility] Last Admin: 02/25/18 09:14 Dose: 20 mg Heparin Sodium (Porcine) (Heparin) 5,000 units SC Q12H [facility] Last Admin: 02/26/18 00:39 Dose: 5,000 units Telavancin 650 mg/ Dextrose 100 mls @ 100 mls/hr IVPB TTS [facility]; Protocol Last Admin: 02/24/18 12:47 Dose: 100 mls/hr Daptomycin 400 mg/ Sodium (Chloride) 100 mls @ 100 mls/hr IV MWF [facility]; Protocol Stop: 03/02/18 09:01 Last Admin: 02/25/18 10:12 Dose: 100 mls/hr Insulin Aspart (Novolog) 0 unit SC Q6 [facility]; Protocol Last Admin: 02/26/18 06:45 Dose: Not Given Insulin Detemir (Levemir) 10 unit SC HS [facility] Last Admin: 02/25/18 21:14 Dose: 10 units Metoprolol Succinate (Toprol Xl) 25 mg PO BID [facility] Last Admin: 02/25/18 17:34 Dose: Not Given Sodium Polystyrene Sulfonate (Kayexalate Susp) 15 gm PO DAILY [facility] Last Admin: 02/25/18 09:14 Dose: 15 gm Tamsulosin HCl (Flomax) 0.4 mg PO DAILY [facility] Last Admin: 02/25/18 09:14 Dose: 0.4 mg Results - Vital Signs Recent Vital Signs: Last Vital Signs Temp 97.4 F L 02/26/18 07:57 Pulse 143 H 02/26/18 07:57 Resp 18 02/26/18 07:57 BP 87/58 L 02/26/18 07:57 Pulse Ox 99 02/26/18 07:57 - Labs Result Diagrams: 02/25/18 08:16 02/25/18 08:16 Labs: Laboratory Results - last 24 hr 02/25/18 02/25/18 02/25/18 11:12 15:56 20:54 POC Glucose (mg/dL) 147 H 126 H 268 H 02/26/18 02/26/18 00:40 06:26 POC Glucose (mg/dL) 133 H 90
[2018-02-26] MEDS: Metoprolol Succinate 25 mg XL Tab PO SCH ×2 (10:50→19:00)
[2018-02-26] MEDS: DEXTROSE 5% IVPB SCH (10:54)
[2018-02-26] MEDS: WATER IVPB SCH (10:54)
[2018-02-26] MEDS: TELAVANCIN HYDROCHLORIDE IVPB SCH (10:54)
[2018-02-26] MEDS: Sod Polystyrene Sulf 15 gm/60 ml Susp PO SCH (10:55)
--- NOTE | 2018-02-26 12:44 | CP.PCM.PN ---
Subjective - Date & Time of Evaluation Date of Evaluation: 02/26/18 Time of Evaluation: 09:00 - Subjective Subjective: clinically same Objective - Vital Signs/Intake and Output Vital Signs (last 24 hours): Temp Pulse Resp BP Pulse Ox 97.4 F L 143 H 18 87/58 L 99 02/26/18 07:57 02/26/18 07:57 02/26/18 07:57 02/26/18 07:57 02/26/18 07:57 Intake and Output: 02/26/18 02/26/18 06:59 18:59 Output Total 250 Balance -250 - Medications Medications: Current Medications Acetaminophen (Tylenol 325mg Tab) 650 mg PO Q6 PRN PRN Reason: Fever >100.4 F Last Admin: 01/27/18 03:58 Dose: 650 mg Aspirin (Aspirin Chewable) 81 mg PO DAILY [facility] Last Admin: 02/26/18 10:50 Dose: 81 mg Famotidine (Pepcid) 20 mg PO DAILY [facility] Last Admin: 02/26/18 10:49 Dose: 20 mg Heparin Sodium (Porcine) (Heparin) 5,000 units SC Q12H [facility] Last Admin: 02/26/18 12:31 Dose: 5,000 units Telavancin 650 mg/ Dextrose 100 mls @ 100 mls/hr IVPB TTS [facility]; Protocol Last Admin: 02/26/18 10:54 Dose: 100 mls/hr Daptomycin 400 mg/ Sodium (Chloride) 100 mls @ 100 mls/hr IV MWF [facility]; Protocol Stop: 03/02/18 09:01 Last Admin: 02/25/18 10:12 Dose: 100 mls/hr Insulin Aspart (Novolog) 0 unit SC Q6 [facility]; Protocol Last Admin: 02/26/18 12:08 Dose: Not Given Insulin Detemir (Levemir) 10 unit SC HS [facility] Last Admin: 02/25/18 21:14 Dose: 10 units Metoprolol Succinate (Toprol Xl) 25 mg PO BID [facility] Last Admin: 02/26/18 10:50 Dose: 25 mg Sodium Polystyrene Sulfonate (Kayexalate Susp) 15 gm PO DAILY [facility] Last Admin: 02/26/18 10:55 Dose: 15 gm Tamsulosin HCl (Flomax) 0.4 mg PO DAILY [facility] Last Admin: 02/26/18 10:49 Dose: 0.4 mg - Labs Labs: 02/25/18 08:16 02/25/18 08:16 PT 14.1 SECONDS (9.7-12.2) H 01/31/18 08:01 INR 1.3 01/31/18 08:01 APTT 30 SECONDS (21-34) 01/13/18 17:42 Assessment and Plan (1) JOY (acute kidney injury) Status: Acute (2) Change in mental status Status: Acute (3) Electrolyte imbalance Status: Acute (4) MRSA (methicillin resistant Staphylococcus aureus) septicemia Status: Acute (5) NSTEMI (non-ST elevated myocardial infarction) Status: Acute (6) Prophylactic measure Status: Acute (7) UTI (urinary tract infection) Status: Acute (8) CHF (congestive heart failure) Status: Chronic (9) CKD (chronic kidney disease) Status: Chronic (10) Diabetes mellitus Status: Chronic (11) Afib Status: Acute (12) Anemia Status: Acute (13) Bilateral hydronephrosis Status: Acute (14) CKD (chronic kidney disease) stage 4, GFR 15-29 ml/min Status: Acute (15) Metabolic acidosis Status: Acute (16) Dementia Status: Chronic
--- NOTE | 2018-02-26 19:00 | CP.PCM.PN ---
Subjective - Date & Time of Evaluation Date of Evaluation: 02/26/18 Time of Evaluation: 15:30 - Subjective Subjective: dictated Objective - Vital Signs/Intake and Output Vital Signs (last 24 hours): Temp Pulse Resp BP Pulse Ox 97.6 F 121 H 20 102/72 96 02/26/18 15:00 02/26/18 15:00 02/26/18 15:00 02/26/18 15:00 02/26/18 15:00 Intake and Output: 02/26/18 02/26/18 06:59 18:59 Output Total 250 350 Balance -250 -350 - Medications Medications: Current Medications Acetaminophen (Tylenol 325mg Tab) 650 mg PO Q6 PRN PRN Reason: Fever >100.4 F Last Admin: 01/27/18 03:58 Dose: 650 mg Aspirin (Aspirin Chewable) 81 mg PO DAILY [facility] Last Admin: 02/26/18 10:50 Dose: 81 mg Famotidine (Pepcid) 20 mg PO DAILY [facility] Last Admin: 02/26/18 10:49 Dose: 20 mg Heparin Sodium (Porcine) (Heparin) 5,000 units SC Q12H [facility] Last Admin: 02/26/18 12:31 Dose: 5,000 units Telavancin 650 mg/ Dextrose 100 mls @ 100 mls/hr IVPB TTS [facility]; Protocol Last Admin: 02/26/18 10:54 Dose: 100 mls/hr Daptomycin 400 mg/ Sodium (Chloride) 100 mls @ 100 mls/hr IV MWF [facility]; Protocol Stop: 03/02/18 09:01 Last Admin: 02/25/18 10:12 Dose: 100 mls/hr Insulin Aspart (Novolog) 0 unit SC Q6 [facility]; Protocol Last Admin: 02/26/18 12:08 Dose: Not Given Insulin Detemir (Levemir) 10 unit SC HS [facility] Last Admin: 02/25/18 21:14 Dose: 10 units Metoprolol Succinate (Toprol Xl) 25 mg PO BID [facility] Last Admin: 02/26/18 10:50 Dose: 25 mg Sodium Polystyrene Sulfonate (Kayexalate Susp) 15 gm PO DAILY [facility] Last Admin: 02/26/18 10:55 Dose: 15 gm Tamsulosin HCl (Flomax) 0.4 mg PO DAILY [facility] Last Admin: 02/26/18 10:49 Dose: 0.4 mg - Labs Labs: 02/25/18 08:16 02/25/18 08:16 PT 14.1 SECONDS (9.7-12.2) H 01/31/18 08:01 INR 1.3 01/31/18 08:01 APTT 30 SECONDS (21-34) 01/13/18 17:42
[2018-02-26] MEDS: Insulin Detemir 100 units/ml Vial (Levemir) SC SCH (22:24)
--- NOTE | 2018-02-26 22:49 | PN ---
DATE: 02/26/2018 SUBJECTIVE: The patient remains awake, confused, nonverbal. He is cardioplegic. He is in bed. PHYSICAL EXAMINATION: LUNGS: Clear. HEART: S1 and S2, tachycardic, irregularly irregular. ABDOMEN: Soft and nontender. Colostomy is present. EXTREMITIES: Have no edema. 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 and since his quality of life is poor as well as he is not able to consent himself and inspite of offering antibiotics and not able to clear it and surgeons all refused that this will not change his quality of life or make him better, and they are suggesting hospice care, so we will leave it on the primary to decide when we could come communicate with the power of employee benefits attorney about this plan, and the patient could be [facility] for now; however, I will continue antibiotics since his plan of care needs to be discussed with the power of employee benefits attorney. Teresa Barnett MD
[2018-02-27] MEDS: (Novolog) Insulin Aspart, Recombinant 100 u/ml 10 ml vial SC SCH ×3 (00:16→18:33)
[2018-02-27] MEDS: Metoprolol Succinate 25 mg XL Tab PO SCH ×2 (10:52→17:58)
--- NOTE | 2018-02-27 16:04 | CP.PCM.PN ---
Subjective - Date & Time of Evaluation Date of Evaluation: 02/27/18 Time of Evaluation: 09:15 - Subjective Subjective: clinically same Objective - Vital Signs/Intake and Output Vital Signs (last 24 hours): Temp Pulse Resp BP Pulse Ox 97.6 F 102 H 20 99/69 L 99 02/27/18 00:00 02/27/18 00:00 02/27/18 00:00 02/26/18 22:38 02/27/18 00:00 Intake and Output: 02/27/18 02/27/18 06:59 18:59 Intake Total 120 Output Total 300 Balance -180 - Medications Medications: Current Medications Acetaminophen (Tylenol 325mg Tab) 650 mg PO Q6 PRN PRN Reason: Fever >100.4 F Last Admin: 01/27/18 03:58 Dose: 650 mg Aspirin (Aspirin Chewable) 81 mg PO DAILY [facility] Last Admin: 02/27/18 10:52 Dose: 81 mg Famotidine (Pepcid) 20 mg PO DAILY [facility] Last Admin: 02/27/18 10:52 Dose: 20 mg Heparin Sodium (Porcine) (Heparin) 5,000 units SC Q12H [facility] Last Admin: 02/27/18 00:16 Dose: 5,000 units Telavancin 650 mg/ Dextrose 100 mls @ 100 mls/hr IVPB TTS [facility]; Protocol Last Admin: 02/26/18 10:54 Dose: 100 mls/hr Daptomycin 400 mg/ Sodium (Chloride) 100 mls @ 100 mls/hr IV MWF [facility]; Protocol Stop: 03/02/18 09:01 Last Admin: 02/25/18 10:12 Dose: 100 mls/hr Insulin Aspart (Novolog) 0 unit SC Q6 [facility]; Protocol Last Admin: 02/27/18 06:38 Dose: Not Given Insulin Detemir (Levemir) 10 unit SC HS [facility] Last Admin: 02/26/18 22:24 Dose: 10 units Metoprolol Succinate (Toprol Xl) 25 mg PO BID [facility] Last Admin: 02/27/18 10:52 Dose: 25 mg Sodium Polystyrene Sulfonate (Kayexalate Susp) 15 gm PO DAILY [facility] Last Admin: 02/26/18 10:55 Dose: 15 gm Tamsulosin HCl (Flomax) 0.4 mg PO DAILY [facility] Last Admin: 02/27/18 10:55 Dose: 0.4 mg - Labs Labs: 02/25/18 08:16 02/25/18 08:16 PT 14.1 SECONDS (9.7-12.2) H 01/31/18 08:01 INR 1.3 01/31/18 08:01 APTT 30 SECONDS (21-34) 01/13/18 17:42 - Constitutional Appears: Well - Head Exam Head Exam: ATRAUMATIC, NORMAL INSPECTION, NORMOCEPHALIC - Eye Exam Eye Exam: EOMI, Normal appearance, PERRL Pupil Exam: NORMAL ACCOMODATION, PERRL - ENT Exam ENT Exam: Mucous Membranes Moist, Normal Exam - Neck Exam Neck Exam: Full ROM, Normal Inspection. absent: Lymphadenopathy - Respiratory Exam Respiratory Exam: Decreased Breath Sounds - Cardiovascular Exam Cardiovascular Exam: REGULAR RHYTHM, +S1, +S2 - GI/Abdominal Exam GI & Abdominal Exam: Soft, Diminished Bowel Sounds - Rectal Exam Rectal Exam: Deferred Assessment and Plan (1) JOY (acute kidney injury) Status: Acute (2) Change in mental status Status: Acute (3) Electrolyte imbalance Status: Acute (4) MRSA (methicillin resistant Staphylococcus aureus) septicemia Status: Acute (5) NSTEMI (non-ST elevated myocardial infarction) Status: Acute (6) Prophylactic measure Status: Acute (7) UTI (urinary tract infection) Status: Acute (8) CHF (congestive heart failure) Status: Chronic (9) CKD (chronic kidney disease) Status: Chronic (10) Diabetes mellitus Status: Chronic (11) Afib Status: Acute (12) Anemia Status: Acute (13) Bilateral hydronephrosis Status: Acute (14) CKD (chronic kidney disease) stage 4, GFR 15-29 ml/min Status: Acute (15) Metabolic acidosis Status: Acute (16) Dementia Status: Chronic
[2018-02-27] MEDS: Insulin Detemir 100 units/ml Vial (Levemir) SC SCH (21:34)
[2018-02-28] MEDS: (Novolog) Insulin Aspart, Recombinant 100 u/ml 10 ml vial SC SCH ×4 (00:45→17:00)
[2018-02-28] MEDS ORDERED: Glucagon Recombinant 1 mg Inj IM PRN (06:52)
[2018-02-28] MEDS ORDERED: Dextrose 50% SYRINGE Inj (50 ml) IV PRN (06:52)
[2018-02-28 07:53] LABS: CALCIUM 9.8 mg/dl (8.6-10.4)
[2018-02-28] MEDS: Metoprolol Succinate 25 mg XL Tab PO SCH ×2 (10:17→18:07)
[2018-02-28] MEDS: Sod Polystyrene Sulf 15 gm/60 ml Susp PO SCH (10:19)
--- NOTE | 2018-02-28 16:48 | CP.PCM.PN ---
Subjective - Date & Time of Evaluation Date of Evaluation: 02/28/18 Time of Evaluation: 10:15 - Subjective Subjective: clinically same Objective - Vital Signs/Intake and Output Vital Signs (last 24 hours): Temp Pulse Resp BP Pulse Ox 98.2 F 136 H 20 106/73 100 02/28/18 08:00 02/28/18 08:00 02/28/18 08:00 02/28/18 08:00 02/28/18 08:00 Intake and Output: 02/28/18 02/28/18 06:59 18:59 Intake Total 400 Output Total 250 560 Balance -250 -160 - Medications Medications: Current Medications Acetaminophen (Tylenol 325mg Tab) 650 mg PO Q6 PRN PRN Reason: Fever >100.4 F Last Admin: 01/27/18 03:58 Dose: 650 mg Aspirin (Aspirin Chewable) 81 mg PO DAILY [facility] Last Admin: 02/28/18 10:17 Dose: 81 mg Dextrose (Dextrose 50% Inj) 0 ml IV STAT PRN; Protocol PRN Reason: Hypoglycemia Protocol Last Admin: 02/28/18 07:14 Dose: 50 ml Dextrose (Glutose 15) 0 gm PO ONCE PRN; Protocol PRN Reason: Hypoglycemia Protocol Famotidine (Pepcid) 20 mg PO DAILY [facility] Last Admin: 02/28/18 10:17 Dose: 20 mg Glucagon (Glucagen Diagnostic Kit) 0 mg IM STAT PRN; Protocol PRN Reason: Hypoglycemia Protocol Daptomycin 400 mg/ Sodium (Chloride) 100 mls @ 100 mls/hr IV MWF [facility]; Protocol Stop: 03/02/18 09:01 Last Admin: 02/28/18 10:18 Dose: 100 mls/hr Dextrose (Dextrose 5% In Water 1000 Ml) 1,000 mls @ 0 mls/hr IV .Q0M PRN; Protocol PRN Reason: Hypoglycemia Protocol Insulin Aspart (Novolog) 0 unit SC Q6 [facility]; Protocol Last Admin: 02/28/18 11:47 Dose: Not Given Insulin Detemir (Levemir) 10 unit SC HS [facility] Last Admin: 02/27/18 21:34 Dose: 10 units Metoprolol Succinate (Toprol Xl) 25 mg PO BID [facility] Last Admin: 02/28/18 10:17 Dose: 25 mg Tamsulosin HCl (Flomax) 0.4 mg PO DAILY [facility] Last Admin: 02/28/18 10:17 Dose: 0.4 mg - Labs Labs: 02/25/18 08:16 02/28/18 07:21 PT 14.1 SECONDS (9.7-12.2) H 01/31/18 08:01 INR 1.3 01/31/18 08:01 APTT 30 SECONDS (21-34) 01/13/18 17:42 - Constitutional Appears: Well - Head Exam Head Exam: ATRAUMATIC, NORMAL INSPECTION, NORMOCEPHALIC - Eye Exam Eye Exam: EOMI, Normal appearance, PERRL Pupil Exam: NORMAL ACCOMODATION, PERRL - ENT Exam ENT Exam: Mucous Membranes Moist, Normal Exam - Neck Exam Neck Exam: Full ROM, Normal Inspection. absent: Lymphadenopathy - Respiratory Exam Respiratory Exam: Decreased Breath Sounds - Cardiovascular Exam Cardiovascular Exam: REGULAR RHYTHM, +S1, +S2 - GI/Abdominal Exam GI & Abdominal Exam: Soft, Diminished Bowel Sounds - Rectal Exam Rectal Exam: Deferred Assessment and Plan (1) JOY (acute kidney injury) Status: Acute (2) Change in mental status Status: Acute (3) Electrolyte imbalance Status: Acute (4) MRSA (methicillin resistant Staphylococcus aureus) septicemia Status: Acute (5) NSTEMI (non-ST elevated myocardial infarction) Status: Acute (6) Prophylactic measure Status: Acute (7) UTI (urinary tract infection) Status: Acute (8) CHF (congestive heart failure) Status: Chronic (9) CKD (chronic kidney disease) Status: Chronic (10) Diabetes mellitus Status: Chronic (11) Afib Status: Acute (12) Anemia Status: Acute (13) Bilateral hydronephrosis Status: Acute (14) CKD (chronic kidney disease) stage 4, GFR 15-29 ml/min Status: Acute (15) Metabolic acidosis Status: Acute (16) Dementia Status: Chronic
--- NOTE | 2018-02-28 19:43 | CP.PCM.PN ---
Subjective - Date & Time of Evaluation Date of Evaluation: 02/28/18 Time of Evaluation: 13:35 - Subjective Subjective: dictated Objective - Vital Signs/Intake and Output Vital Signs (last 24 hours): Temp Pulse Resp BP Pulse Ox 97.6 F 70 20 101/71 98 02/28/18 17:05 02/28/18 17:05 02/28/18 17:05 02/28/18 17:05 02/28/18 17:05 Intake and Output: 02/28/18 03/01/18 18:59 06:59 Intake Total 400 Output Total 560 Balance -160 - Medications Medications: Current Medications Acetaminophen (Tylenol 325mg Tab) 650 mg PO Q6 PRN PRN Reason: Fever >100.4 F Last Admin: 01/27/18 03:58 Dose: 650 mg Aspirin (Aspirin Chewable) 81 mg PO DAILY [facility] Last Admin: 02/28/18 10:17 Dose: 81 mg Dextrose (Dextrose 50% Inj) 0 ml IV STAT PRN; Protocol PRN Reason: Hypoglycemia Protocol Last Admin: 02/28/18 07:14 Dose: 50 ml Dextrose (Glutose 15) 0 gm PO ONCE PRN; Protocol PRN Reason: Hypoglycemia Protocol Famotidine (Pepcid) 20 mg PO DAILY [facility] Last Admin: 02/28/18 10:17 Dose: 20 mg Glucagon (Glucagen Diagnostic Kit) 0 mg IM STAT PRN; Protocol PRN Reason: Hypoglycemia Protocol Daptomycin 400 mg/ Sodium (Chloride) 100 mls @ 100 mls/hr IV MWF [facility]; Protocol Stop: 03/02/18 09:01 Last Admin: 02/28/18 10:18 Dose: 100 mls/hr Dextrose (Dextrose 5% In Water 1000 Ml) 1,000 mls @ 0 mls/hr IV .Q0M PRN; Protocol PRN Reason: Hypoglycemia Protocol Insulin Aspart (Novolog) 0 unit SC Q6 [facility]; Protocol Last Admin: 02/28/18 17:00 Dose: Not Given Insulin Detemir (Levemir) 10 unit SC HS [facility] Last Admin: 02/27/18 21:34 Dose: 10 units Metoprolol Succinate (Toprol Xl) 25 mg PO BID [facility] Last Admin: 02/28/18 18:07 Dose: 25 mg Tamsulosin HCl (Flomax) 0.4 mg PO DAILY [facility] Last Admin: 02/28/18 10:17 Dose: 0.4 mg - Labs Labs: 02/25/18 08:16 02/28/18 07:21 PT 14.1 SECONDS (9.7-12.2) H 01/31/18 08:01 INR 1.3 01/31/18 08:01 APTT 30 SECONDS (21-34) 01/13/18 17:42
[2018-02-28] MEDS: TELAVANCIN HYDROCHLORIDE IVPB SCH (21:57)
[2018-02-28] MEDS: DEXTROSE 5% IVPB SCH (21:57)
[2018-02-28] MEDS: WATER IVPB SCH (21:57)
[2018-02-28] MEDS: Insulin Detemir 100 units/ml Vial (Levemir) SC SCH (22:00)
[2018-03-01] MEDS: (Novolog) Insulin Aspart, Recombinant 100 u/ml 10 ml vial SC SCH ×4 (00:46→18:07)
--- NOTE | 2018-03-01 00:47 | PN ---
DATE: 02/28/2018 SUBJECTIVE: The patient remains awake, but confused, aphasic. PHYSICAL EXAMINATION: VITAL SIGNS: Heart rate varies from 136 to 70, respirations are 20, blood pressure 101/71. GENERAL: He is noncommunicative. NECK: Supple. LUNGS: Occasional rhonchi. HEART: S1 and S2 are irregularly irregular. ABDOMEN: Soft and nontender. Colostomy is present. EXTREMITIES: Have pressure decubiti. LABORATORY DATA: Labs are noted. Today sodium is 148, potassium 4.8, BUN is 33, creatinine remains 2.3. There is no white count done recently. ASSESSMENT AND PLAN: Medication shows he is on Daptomycin, I think I have to put back the telavancin as that . So, we will put that back and the patient's power of deputy commonwealth's attorney has to decide for the hospice on this patient. 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 Teresa Barnett MD
[2018-03-01] MEDS: Metoprolol Succinate 25 mg XL Tab PO SCH ×2 (10:34→17:57)
--- NOTE | 2018-03-01 15:00 | CP.PCM.PN ---
Subjective - Date & Time of Evaluation Date of Evaluation: 03/01/18 Time of Evaluation: 15:00 - Subjective Subjective: dictated Objective - Vital Signs/Intake and Output Vital Signs (last 24 hours): Temp Pulse Resp BP Pulse Ox 98.2 F 129 H 20 107/73 96 03/01/18 08:00 03/01/18 08:00 03/01/18 08:00 03/01/18 08:00 03/01/18 08:00 Intake and Output: 03/01/18 03/01/18 06:59 18:59 Intake Total 600 Output Total 250 200 Balance -250 400 - Medications Medications: Current Medications Acetaminophen (Tylenol 325mg Tab) 650 mg PO Q6 PRN PRN Reason: Fever >100.4 F Last Admin: 01/27/18 03:58 Dose: 650 mg Aspirin (Aspirin Chewable) 81 mg PO DAILY [facility] Last Admin: 03/01/18 10:34 Dose: 81 mg Dextrose (Dextrose 50% Inj) 0 ml IV STAT PRN; Protocol PRN Reason: Hypoglycemia Protocol Last Admin: 02/28/18 07:14 Dose: 50 ml Dextrose (Glutose 15) 0 gm PO ONCE PRN; Protocol PRN Reason: Hypoglycemia Protocol Famotidine (Pepcid) 20 mg PO DAILY [facility] Last Admin: 03/01/18 10:34 Dose: 20 mg Glucagon (Glucagen Diagnostic Kit) 0 mg IM STAT PRN; Protocol PRN Reason: Hypoglycemia Protocol Daptomycin 400 mg/ Sodium (Chloride) 100 mls @ 100 mls/hr [place] [facility] [place] Protocol Stop: 03/02/18 09:01 Last Admin: 02/28/18 10:18 Dose: 100 mls/hr Dextrose (Dextrose 5% In Water 1000 Ml) 1,000 mls @ 0 mls/hr IV .Q0M PRN; Protocol PRN Reason: Hypoglycemia Protocol Telavancin 650 mg/ Dextrose 100 mls @ 100 mls/hr [place]PB [facility] [place] [facility] [place] Protocol Last Admin: 02/28/18 21:57 Dose: 100 mls/hr Insulin Aspart (Novolog) 0 unit SC Q6 [facility]; Protocol Last Admin: 03/01/18 11:13 Dose: Not Given Insulin Detemir (Levemir) 10 unit SC [facility] Last Admin: 02/28/18 22:00 Dose: Not Given Metoprolol Succinate (Toprol Xl) 25 mg PO BID [facility] Last Admin: 03/01/18 10:34 Dose: 25 mg Tamsulosin HCl (Flomax) 0.4 mg PO DAILY [facility] Last Admin: 03/01/18 10:34 Dose: 0.4 mg - Labs Labs: 02/25/18 08:16 02/28/18 07:21 PT 14.1 SECONDS (9.7-12.2) H 01/31/18 08:01 INR 1.3 01/31/18 08:01 APTT 30 SECONDS (21-34) 01/13/18 17:42
--- NOTE | 2018-03-01 18:20 | CP.PCM.PN ---
Subjective - Date & Time of Evaluation Date of Evaluation: 03/01/18 Time of Evaluation: 09:15 - Subjective Subjective: clinically same Objective - Vital Signs/Intake and Output Vital Signs (last 24 hours): Temp Pulse Resp BP Pulse Ox 98.2 F 136 H 20 114/77 100 03/01/18 16:00 03/01/18 16:00 03/01/18 16:00 03/01/18 16:00 03/01/18 16:00 Intake and Output: 03/01/18 03/01/18 06:59 18:59 Intake Total 600 Output Total 250 200 Balance -250 400 - Medications Medications: Current Medications Acetaminophen (Tylenol 325mg Tab) 650 mg PO Q6 PRN PRN Reason: Fever >100.4 F Last Admin: 01/27/18 03:58 Dose: 650 mg Aspirin (Aspirin Chewable) 81 mg PO DAILY [facility] Last Admin: 03/01/18 10:34 Dose: 81 mg Dextrose (Dextrose 50% Inj) 0 ml IV STAT PRN; Protocol PRN Reason: Hypoglycemia Protocol Last Admin: 02/28/18 07:14 Dose: 50 ml Dextrose (Glutose 15) 0 gm PO ONCE PRN; Protocol PRN Reason: Hypoglycemia Protocol Famotidine (Pepcid) 20 mg PO DAILY [facility] Last Admin: 03/01/18 10:34 Dose: 20 mg Glucagon (Glucagen Diagnostic Kit) 0 mg IM STAT PRN; Protocol PRN Reason: Hypoglycemia Protocol Daptomycin 400 mg/ Sodium (Chloride) 100 mls @ 100 mls/hr [place] [facility] Protocol Stop: 03/02/18 09:01 Last Admin: 02/28/18 10:18 Dose: 100 mls/hr Dextrose (Dextrose 5% In Water 1000 Ml) 1,000 mls @ 0 mls/hr IV .Q0M PRN; Protocol PRN Reason: Hypoglycemia Protocol Telavancin 650 mg/ Dextrose 100 mls @ 100 mls/hr [place] [facility] Protocol Last Admin: 02/28/18 21:57 Dose: 100 mls/hr Insulin Aspart (Novolog) 0 unit SC Q6 [facility]; Protocol Last Admin: 03/01/18 18:07 Dose: Not Given Insulin Detemir (Levemir) 10 unit SC [facility] Last Admin: 02/28/18 22:00 Dose: Not Given Metoprolol Succinate (Toprol Xl) 25 mg PO BID [facility] Last Admin: 03/01/18 17:57 Dose: 25 mg Tamsulosin HCl (Flomax) 0.4 mg PO DAILY [facility] Last Admin: 03/01/18 10:34 Dose: 0.4 mg - Labs Labs: 02/25/18 08:16 02/28/18 07:21 PT 14.1 SECONDS (9.7-12.2) H 01/31/18 08:01 INR 1.3 01/31/18 08:01 APTT 30 SECONDS (21-34) 01/13/18 17:42 - Constitutional Appears: Well - Head Exam Head Exam: ATRAUMATIC, NORMAL INSPECTION, NORMOCEPHALIC - Eye Exam Eye Exam: EOMI, Normal appearance, PERRL Pupil Exam: NORMAL ACCOMODATION, PERRL - ENT Exam ENT Exam: Mucous Membranes Moist, Normal Exam - Neck Exam Neck Exam: Full ROM, Normal Inspection. absent: Lymphadenopathy - Respiratory Exam Respiratory Exam: Decreased Breath Sounds - Cardiovascular Exam Cardiovascular Exam: REGULAR RHYTHM, +S1, +S2 - GI/Abdominal Exam GI & Abdominal Exam: Soft, Diminished Bowel Sounds - Rectal Exam Rectal Exam: Deferred Assessment and Plan (1) JOY (acute kidney injury) Status: Acute (2) Change in mental status Status: Acute (3) Electrolyte imbalance Status: Acute (4) MRSA (methicillin resistant Staphylococcus aureus) septicemia Status: Acute (5) NSTEMI (non-ST elevated myocardial infarction) Status: Acute (6) Prophylactic measure Status: Acute (7) UTI (urinary tract infection) Status: Acute (8) CHF (congestive heart failure) Status: Chronic (9) CKD (chronic kidney disease) Status: Chronic (10) Diabetes mellitus Status: Chronic (11) Afib Status: Acute (12) Anemia Status: Acute (13) Bilateral hydronephrosis Status: Acute (14) CKD (chronic kidney disease) stage 4, GFR 15-29 ml/min Status: Acute (15) Metabolic acidosis Status: Acute (16) Dementia Status: Chronic
--- NOTE | 2018-03-01 20:21 | PN ---
DATE: 03/01/2018 SUBJECTIVE: The patient remains afebrile, still tachycardic. PHYSICAL EXAMINATION: VITAL SIGNS: Blood pressure is 107/73, respirations are 20. ASSESSMENT AND PLAN: He has dementia and is confused, aphasic. He has this Methicillin-resistant Staphylococcus aureus infection and he was getting IV antibiotics. His blood cultures have all been positive and he is not a candidate for any kind of surgery and has a poor quality of life. The SKI TOPPER was asking me, I suggested that he can probably go back on Zyvox 600 mg p.o. b.i.d. for 10 to 14 days. We know that this Methicillin-resistant Staphylococcus aureus is not going to improve no matter what we give him and he is not a surgical candidate and probably this is going to be downhill from here on. Teresa Barnett MD
[2018-03-01] MEDS: Insulin Detemir 100 units/ml Vial (Levemir) SC SCH (21:43)
[2018-03-02] MEDS: (Novolog) Insulin Aspart, Recombinant 100 u/ml 10 ml vial SC SCH ×4 (06:38→18:07)
[2018-03-02] MEDS: TELAVANCIN HYDROCHLORIDE IVPB SCH (08:49)
[2018-03-02] MEDS: WATER IVPB SCH (08:49)
[2018-03-02] MEDS: DEXTROSE 5% IVPB SCH (08:49)
[2018-03-02] MEDS: Metoprolol Succinate 25 mg XL Tab PO SCH ×2 (09:44→18:07)
--- NOTE | 2018-03-02 20:43 | CP.PCM.PN ---
Subjective - Date & Time of Evaluation Date of Evaluation: 03/02/18 Time of Evaluation: 09:15 - Subjective Subjective: clinically same Objective - Vital Signs/Intake and Output Vital Signs (last 24 hours): Temp Pulse Resp BP Pulse Ox 98.1 F 138 H 22 99/66 L 100 03/02/18 16:00 03/02/18 16:00 03/02/18 16:00 03/02/18 16:00 03/02/18 16:00 Intake and Output: 03/02/18 03/03/18 18:59 06:59 Output Total 300 Balance -300 - Medications Medications: Current Medications Acetaminophen (Tylenol 325mg Tab) 650 mg PO Q6 PRN PRN Reason: Fever >100.4 F Last Admin: 01/27/18 03:58 Dose: 650 mg Aspirin (Aspirin Chewable) 81 mg PO DAILY [facility] Last Admin: 03/02/18 09:44 Dose: 81 mg Dextrose (Dextrose 50% Inj) 0 ml IV STAT PRN; Protocol PRN Reason: Hypoglycemia Protocol Last Admin: 02/28/18 07:14 Dose: 50 ml Dextrose (Glutose 15) 0 gm PO ONCE PRN; Protocol PRN Reason: Hypoglycemia Protocol Famotidine (Pepcid) 20 mg PO DAILY [facility] Last Admin: 03/02/18 09:44 Dose: 20 mg Glucagon (Glucagen Diagnostic Kit) 0 mg IM STAT PRN; Protocol PRN Reason: Hypoglycemia Protocol Dextrose (Dextrose 5% In Water 1000 Ml) 1,000 mls @ 0 mls/hr IV .Q0M PRN; Protocol PRN Reason: Hypoglycemia Protocol Telavancin 650 mg/ Dextrose 100 mls @ 100 mls/hr IVPB [facility]; Protocol Last Admin: 03/02/18 08:49 Dose: 100 mls/hr Daptomycin 400 mg/ Sodium (Chloride) 100 mls @ 100 mls/hr IV [facility]; Protocol Stop: 03/09/18 09:01 Insulin Aspart (Novolog) 0 unit SC Q6 [facility]; Protocol Last Admin: 03/02/18 18:07 Dose: Not Given Insulin Detemir (Levemir) 10 unit SC HS [facility] Last Admin: 03/01/18 21:43 Dose: Not Given Metoprolol Succinate (Toprol Xl) 25 mg PO BID [facility] Last Admin: 03/02/18 18:07 Dose: Not Given Tamsulosin HCl (Flomax) 0.4 mg PO DAILY [facility] Last Admin: 03/02/18 09:44 Dose: 0.4 mg - Labs Labs: 02/25/18 08:16 02/28/18 07:21 PT 14.1 SECONDS (9.7-12.2) H 01/31/18 08:01 INR 1.3 01/31/18 08:01 APTT 30 SECONDS (21-34) 01/13/18 17:42 Assessment and Plan (1) JOY (acute kidney injury) Status: Acute (2) Change in mental status Status: Acute (3) Electrolyte imbalance Status: Acute (4) MRSA (methicillin resistant Staphylococcus aureus) septicemia Status: Acute (5) NSTEMI (non-ST elevated myocardial infarction) Status: Acute (6) Prophylactic measure Status: Acute (7) UTI (urinary tract infection) Status: Acute (8) CHF (congestive heart failure) Status: Chronic (9) CKD (chronic kidney disease) Status: Chronic (10) Diabetes mellitus Status: Chronic (11) Afib Status: Acute (12) Anemia Status: Acute (13) Bilateral hydronephrosis Status: Acute (14) CKD (chronic kidney disease) stage 4, GFR 15-29 ml/min Status: Acute (15) Metabolic acidosis Status: Acute (16) Dementia Status: Chronic
--- NOTE | 2018-03-02 21:16 | CP.PCM.PN ---
Subjective - Date & Time of Evaluation Date of Evaluation: 03/02/18 Time of Evaluation: 15:00 - Subjective Subjective: dictated Objective - Vital Signs/Intake and Output Vital Signs (last 24 hours): Temp Pulse Resp BP Pulse Ox 98.1 F 138 H 22 99/66 L 100 03/02/18 16:00 03/02/18 16:00 03/02/18 16:00 03/02/18 16:00 03/02/18 16:00 Intake and Output: 03/02/18 03/03/18 18:59 06:59 Output Total 300 Balance -300 - Medications Medications: Current Medications Acetaminophen (Tylenol 325mg Tab) 650 mg PO Q6 PRN PRN Reason: Fever >100.4 F Last Admin: 01/27/18 03:58 Dose: 650 mg Aspirin (Aspirin Chewable) 81 mg PO DAILY [facility] Last Admin: 03/02/18 09:44 Dose: 81 mg Dextrose (Dextrose 50% Inj) 0 ml IV STAT PRN; Protocol PRN Reason: Hypoglycemia Protocol Last Admin: 02/28/18 07:14 Dose: 50 ml Dextrose (Glutose 15) 0 gm PO ONCE PRN; Protocol PRN Reason: Hypoglycemia Protocol Famotidine (Pepcid) 20 mg PO DAILY [facility] Last Admin: 03/02/18 09:44 Dose: 20 mg Glucagon (Glucagen Diagnostic Kit) 0 mg IM STAT PRN; Protocol PRN Reason: Hypoglycemia Protocol Dextrose (Dextrose 5% In Water 1000 Ml) 1,000 mls @ 0 mls/hr IV .Q0M PRN; Protocol PRN Reason: Hypoglycemia Protocol Telavancin 650 mg/ Dextrose 100 mls @ 100 mls/hr IVPB [facility] [place]; Protocol Last Admin: 03/02/18 08:49 Dose: 100 mls/hr Daptomycin 400 mg/ Sodium (Chloride) 100 mls @ 100 mls/hr IV [facility]; Protocol Stop: 03/09/18 09:01 Insulin Aspart (Novolog) 0 unit SC Q6 [facility]; Protocol Last Admin: 03/02/18 18:07 Dose: Not Given Insulin Detemir (Levemir) 10 unit SC HS [facility] Last Admin: 03/01/18 21:43 Dose: Not Given Metoprolol Succinate (Toprol Xl) 25 mg PO BID [facility] Last Admin: 03/02/18 18:07 Dose: Not Given Tamsulosin HCl (Flomax) 0.4 mg PO DAILY [facility] Last Admin: 03/02/18 09:44 Dose: 0.4 mg - Labs Labs: 02/25/18 08:16 02/28/18 07:21 PT 14.1 SECONDS (9.7-12.2) H 01/31/18 08:01 INR 1.3 01/31/18 08:01 APTT 30 SECONDS (21-34) 01/13/18 17:42
[2018-03-02] MEDS: Insulin Detemir 100 units/ml Vial (Levemir) SC SCH (21:18)
[2018-03-03] MEDS: (Novolog) Insulin Aspart, Recombinant 100 u/ml 10 ml vial SC SCH ×4 (01:00→17:12)
--- NOTE | 2018-03-03 01:12 | PN ---
DATE: 03/02/2018 SUBJECTIVE: The patient is opening his eyes. He remains aphasic, but he has no respiratory issues. PHYSICAL EXAMINATION: VITAL SIGNS: Blood pressure is 99/66, heart rate of 138, respirations remained 20. GENERAL: His hands are still with mittens. HEENT: Head is atraumatic. NECK: Supple. LUNGS: Clear. HEART: S1 and S2, tachycardiac. ABDOMEN: Soft. EXTREMITIES: Remain with no edema. He does have pressure decubitus and sacral decubitus. LABORATORY DATA: Labs are noted. I ordered some labs. There is no new lab. Blood culture so far is negative from 03/01/2018, to say as it is only a day old. We will follow. Since we are not able to clear this bacteremia, I think the power of environmental attorney should be informed, and he should be switched over to oral antibiotics if possible. Teresa Barnett MD
[2018-03-03] MEDS: Metoprolol Succinate 25 mg XL Tab PO SCH ×2 (09:31→17:13)
--- NOTE | 2018-03-03 17:40 | CP.PCM.PN ---
Subjective - Date & Time of Evaluation Date of Evaluation: 03/03/18 Time of Evaluation: 09:15 - Subjective Subjective: clinically same Objective - Vital Signs/Intake and Output Vital Signs (last 24 hours): Temp Pulse Resp BP Pulse Ox 97.6 F 68 18 112/72 93 L 03/03/18 16:00 03/03/18 16:00 03/03/18 16:00 03/03/18 16:00 03/03/18 16:00 Intake and Output: 03/03/18 03/03/18 06:59 18:59 Intake Total 200 Output Total 200 125 Balance -200 75 - Medications Medications: Current Medications Acetaminophen (Tylenol 325mg Tab) 650 mg PO Q6 PRN PRN Reason: Fever >100.4 F Last Admin: 01/27/18 03:58 Dose: 650 mg Aspirin (Aspirin Chewable) 81 mg PO DAILY [facility] Last Admin: 03/03/18 09:46 Dose: 81 mg Dextrose (Dextrose 50% Inj) 0 ml IV STAT PRN; Protocol PRN Reason: Hypoglycemia Protocol Last Admin: 02/28/18 07:14 Dose: 50 ml Dextrose (Glutose 15) 0 gm PO ONCE PRN; Protocol PRN Reason: Hypoglycemia Protocol Famotidine (Pepcid) 20 mg PO DAILY [facility] Last Admin: 03/03/18 09:46 Dose: 20 mg Glucagon (Glucagen Diagnostic Kit) 0 mg IM STAT PRN; Protocol PRN Reason: Hypoglycemia Protocol Telavancin 650 mg/ Dextrose 100 mls @ 100 mls/hr IVPB [facility] [place]; Protocol Last Admin: 03/02/18 08:49 Dose: 100 mls/hr Daptomycin 400 mg/ Sodium (Chloride) 100 mls @ 100 mls/hr IV [facility] [place]; Protocol Stop: 03/09/18 09:01 Insulin Aspart (Novolog) 0 unit SC Q6 [facility]; Protocol Last Admin: 03/03/18 17:12 Dose: Not Given Insulin Detemir (Levemir) 10 unit SC HS [facility] Last Admin: 03/02/18 21:18 Dose: Not Given Metoprolol Succinate (Toprol Xl) 25 mg PO BID [facility] Last Admin: 03/03/18 17:13 Dose: 25 mg Tamsulosin HCl (Flomax) 0.4 mg PO DAILY [facility] Last Admin: 03/03/18 09:46 Dose: 0.4 mg - Labs Labs: 02/25/18 08:16 02/28/18 07:21 PT 14.1 SECONDS (9.7-12.2) H 01/31/18 08:01 INR 1.3 01/31/18 08:01 APTT 30 SECONDS (21-34) 01/13/18 17:42 Assessment and Plan (1) JOY (acute kidney injury) Status: Acute (2) Change in mental status Status: Acute (3) Electrolyte imbalance Status: Acute (4) MRSA (methicillin resistant Staphylococcus aureus) septicemia Status: Acute (5) NSTEMI (non-ST elevated myocardial infarction) Status: Acute (6) Prophylactic measure Status: Acute (7) UTI (urinary tract infection) Status: Acute (8) CHF (congestive heart failure) Status: Chronic (9) CKD (chronic kidney disease) Status: Chronic (10) Diabetes mellitus Status: Chronic (11) Afib Status: Acute (12) Anemia Status: Acute (13) Bilateral hydronephrosis Status: Acute (14) CKD (chronic kidney disease) stage 4, GFR 15-29 ml/min Status: Acute (15) Metabolic acidosis Status: Acute (16) Dementia Status: Chronic
--- NOTE | 2018-03-03 22:00 | CP.PCM.PN ---
Subjective - Date & Time of Evaluation Date of Evaluation: 03/03/18 Time of Evaluation: 16:00 - Subjective Subjective: dictated Objective - Vital Signs/Intake and Output Vital Signs (last 24 hours): Temp Pulse Resp BP Pulse Ox 97.6 F 68 18 112/72 93 L 03/03/18 16:00 03/03/18 16:00 03/03/18 16:00 03/03/18 16:00 03/03/18 16:00 Intake and Output: 03/03/18 03/04/18 18:59 06:59 Intake Total 200 Output Total 125 Balance 75 - Medications Medications: Current Medications Acetaminophen (Tylenol 325mg Tab) 650 mg PO Q6 PRN PRN Reason: Fever >100.4 F Last Admin: 01/27/18 03:58 Dose: 650 mg Aspirin (Aspirin Chewable) 81 mg PO DAILY [facility] Last Admin: 03/03/18 09:46 Dose: 81 mg Dextrose (Dextrose 50% Inj) 0 ml IV STAT PRN; Protocol PRN Reason: Hypoglycemia Protocol Last Admin: 02/28/18 07:14 Dose: 50 ml Dextrose (Glutose 15) 0 gm PO ONCE PRN; Protocol PRN Reason: Hypoglycemia Protocol Famotidine (Pepcid) 20 mg PO DAILY [facility] Last Admin: 03/03/18 09:46 Dose: 20 mg Glucagon (Glucagen Diagnostic Kit) 0 mg IM STAT PRN; Protocol PRN Reason: Hypoglycemia Protocol Telavancin 650 mg/ Dextrose 100 mls @ 100 mls/hr [place] [facility] Protocol Last Admin: 03/02/18 08:49 Dose: 100 mls/hr Daptomycin 400 mg/ Sodium (Chloride) 100 mls @ 100 mls/hr IV [facility]; Protocol Stop: 03/09/18 09:01 Insulin Aspart (Novolog) 0 unit SC Q6 [facility]; Protocol Last Admin: 03/03/18 17:12 Dose: Not Given Insulin Detemir (Levemir) 10 unit SC HS [facility] Last Admin: 03/02/18 21:18 Dose: Not Given Metoprolol Succinate (Toprol Xl) 25 mg PO BID [facility] Last Admin: 03/03/18 17:13 Dose: 25 mg Tamsulosin HCl (Flomax) 0.4 mg PO DAILY [facility] Last Admin: 03/03/18 09:46 Dose: 0.4 mg - Labs Labs: 02/25/18 08:16 02/28/18 07:21 PT 14.1 SECONDS (9.7-12.2) H 01/31/18 08:01 INR 1.3 01/31/18 08:01 APTT 30 SECONDS (21-34) 01/13/18 17:42
[2018-03-03] MEDS: Insulin Detemir 100 units/ml Vial (Levemir) SC SCH (22:08)
[2018-03-04 00:01] VITALS: RESP 20
--- NOTE | 2018-03-04 02:08 | PN ---
DATE: 03/03/2018 SUBJECTIVE: The patient remains confused with no and no respiratory issues. He is afebrile. We are still waiting to discuss the plan with the POA. PHYSICAL EXAMINATION: VITAL SIGNS: T max is 97.6, pulse 68, blood pressure 112/72, respirations are 93. HEENT: Head is atraumatic. NECK: Supple. LUNGS: Regular. HEART: S1, S2 irregularly irregular. ABDOMEN: Soft, nontender. EXTREMITIES: Have no edema. He has mittens on sometimes he does not let us examine carefully. MEDICATIONS: He remains on telavancin and daptomycin at this time. ASSESSMENT AND PLAN: Culture this time, micro culture is negative 48 hours and so we will continue present treatment. He has been on these antibiotics since he came, which is 01/13/2018. He is almost completing six weeks, may need six to eight weeks, but he is not a candidate for surgery. 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 Teresa Barnett MD
[2018-03-04 07:41] LABS: CALCIUM 9.7 mg/dl (8.6-10.4)
[2018-03-04] MEDS: (Novolog) Insulin Aspart, Recombinant 100 u/ml 10 ml vial SC SCH ×4 (08:13→17:11)
[2018-03-04] MEDS ORDERED: Sodium Chloride 0.9% 1,000 ML IV SCH (09:30)
[2018-03-04] MEDS: WATER IVPB SCH (10:48)
[2018-03-04] MEDS: DEXTROSE 5% IVPB SCH (10:48)
[2018-03-04] MEDS: TELAVANCIN HYDROCHLORIDE IVPB SCH (10:48)
[2018-03-04] MEDS: Metoprolol Succinate 25 mg XL Tab PO SCH (10:54)
[2018-03-04 11:38] LABS: BASO # 0.1 K/uL (0.0-0.2); BASO % 2.3 % (0.0-2.0); EOS # 0.2 K/uL (0.0-0.7); EOS % 3.3 % (0.0-4.0); HEMOGLOBIN 8.8 g/dL (12.0-18.0); LYMPH # 0.9 K/uL (1.0-4.3); LYMPH % 14.7 % (20.0-40.0); MEAN CORPUSCULAR HEMOGLOBIN 29.5 pg (27.0-31.0); MEAN CORPUSCULAR HGB CONC 32.6 g/dL (33.0-37.0); MEAN PLATELET VOLUME 7.8 fL (7.2-11.7); MONO # 0.4 K/uL (0.0-0.8); MONO % 6.6 % (0.0-10.0); NEUT # 4.4 K/uL (1.8-7.0); NEUT % 73.1 % (50.0-75.0); NRBC % 0.1 % (0.0-2.0); RBC 2.97 Mil/uL (4.40-5.90); RED CELL DISTRIBUTION WIDTH 16.8 % (11.5-14.5); WHITE BLOOD COUNT 6.1 K/uL (4.8-10.8)
[2018-03-04 11:40] LABS: MEAN CELL VOLUME 90.4 fL (80.0-94.0)
[2018-03-04 13:16] VITALS: O2SAT 100
[2018-03-04] MEDS ORDERED: Metoprolol 1 mg/ml Inj IVP ONE (14:51)
--- NOTE | 2018-03-04 15:57 | CP.PCM.PN ---
Subjective - Date & Time of Evaluation Date of Evaluation: 03/04/18 Time of Evaluation: 15:57 Objective - Vital Signs/Intake and Output Vital Signs (last 24 hours): Temp Pulse Resp BP Pulse Ox 97.3 F L 131 H 20 103/71 100 03/04/18 07:00 03/04/18 14:56 03/04/18 07:00 03/04/18 14:56 03/04/18 10:33 Intake and Output: 03/04/18 03/04/18 06:59 18:59 Intake Total 100 400 Output Total 300 200 Balance -200 200 - Medications Medications: Current Medications Acetaminophen (Tylenol 325mg Tab) 650 mg PO Q6 PRN PRN Reason: Fever >100.4 F Last Admin: 01/27/18 03:58 Dose: 650 mg Aspirin (Aspirin Chewable) 81 mg PO DAILY [facility] Last Admin: 03/04/18 10:54 Dose: 81 mg Dextrose (Dextrose 50% Inj) 0 ml IV STAT PRN; Protocol PRN Reason: Hypoglycemia Protocol Last Admin: 02/28/18 07:14 Dose: 50 ml Dextrose (Glutose 15) 0 gm PO ONCE PRN; Protocol PRN Reason: Hypoglycemia Protocol Famotidine (Pepcid) 20 mg PO DAILY [facility] Last Admin: 03/04/18 10:54 Dose: 20 mg Glucagon (Glucagen Diagnostic Kit) 0 mg IM STAT PRN; Protocol PRN Reason: Hypoglycemia Protocol Telavancin 650 mg/ Dextrose 100 mls @ 100 mls/hr IVPB [facility] [place]; Protocol Last Admin: 03/04/18 10:48 Dose: 100 mls/hr Daptomycin 400 mg/ Sodium (Chloride) 100 mls @ 100 mls/hr IV F [facility]; Protocol Stop: 03/09/18 09:01 Last Admin: 03/04/18 08:34 Dose: 100 mls/hr Sodium Chloride (Sodium Chloride 0.9%) 1,000 mls @ 70 mls/hr IV .[id number] [facility] Last Admin: 03/04/18 10:00 Dose: 70 mls/hr Insulin Aspart (Novolog) 0 unit SC Q6 [facility]; Protocol Last Admin: 03/04/18 13:07 Dose: Not Given Insulin Detemir (Levemir) 10 unit SC [facility] Last Admin: 03/03/18 22:08 Dose: Not Given Metoprolol Succinate (Toprol Xl) 25 mg PO BID [facility] Tamsulosin HCl (Flomax) 0.4 mg PO DAILY [facility] Last Admin: 03/04/18 10:54 Dose: 0.4 mg - Labs Labs: 03/04/18 11:19 03/04/18 07:12 PT 14.1 SECONDS (9.7-12.2) H 01/31/18 08:01 INR 1.3 01/31/18 08:01 APTT 30 SECONDS (21-34) 01/13/18 17:42 Assessment and Plan - Assessment and Plan (Free Text) Assessment: DR Wade HORTA CALL [facility] AND UPDATE WITH THE PLAN AND SHE AGREE WITH THE DISCHARGE PLANING PLACE UNDER THE SERVICE OF DR Wade OSULLIVAN AT [facility] ----CALL FOR ADMITTING ORDER CONTINUE HOME MEDICATION PER MED REC NEW PRESCRIPTIN GIVEN ZYVOX 600 MG PO Q12H FOR 2 WEEK ACTIVITY TOLERATED AND FACILITY PROTOCOL WOUND CARE APPLIED ight heel unstagable pressure ulcer and sacral unstagable pressure ulcer. Left heel and Left lateral malleolus continue with DTI's; Recommending treatment to continue using skin prep daily, as well as for right heel Unstagable pressure ulcer. Recommending for sacral unstagable, packing with medihoney, then covering with dry dressing to be done daily. CALL DR Wade OSULLIVAN FOR FURTHER ORDER
[2018-03-04 16:18] VITALS: BP 104/72; PULSE 72; TEMP 98
[2018-03-04] MEDS ORDERED: Metoprolol Succinate 25 mg XL Tab PO SCH (18:00)
== END 2018-03-04 17:19 | DRG 871 ==
LOC: C.ER 16:58 → C.9I 20:37 → C.3T 01-25 17:35 → C.5S 01-28 00:44
PROVIDERS: ADMIT Internal Medicine Nephrology; ATTEND Internal Medicine Nephrology
PROC: 30233N1 Transfusion of Nonautologous Red Blood Cells into Peripheral Vein, Percutaneous Approach (ICD-10-PCS; 2018-01-16)
PROC: B24BZZ4 Ultrasonography of Heart with Aorta, Transesophageal (ICD-10-PCS; principal; 2018-01-31)
PROC: 05HY33Z Insertion of Infusion Device into Upper Vein, Percutaneous Approach (ICD-10-PCS; 2018-02-17)
DX: A41.02 Sepsis due to Methicillin resistant Staphylococcus aureus (principal); R65.21 Severe sepsis with septic shock; I50.23 Acute on chronic systolic (congestive) heart failure; J18.9 Pneumonia, unspecified organism; E87.0 Hyperosmolality and hypernatremia; I13.0 Hypertensive heart and chronic kidney disease with heart failure and stage 1 through stage 4 chronic kidney disease, or unspecified chronic kidney disease; I48.92 Unspecified atrial flutter; K92.2 Gastrointestinal hemorrhage, unspecified; N17.9 Acute kidney failure, unspecified; N18.4 Chronic kidney disease, stage 4 (severe); L97.909 Non-pressure chronic ulcer of unspecified part of unspecified lower leg with unspecified severity; N39.0 Urinary tract infection, site not specified; I48.91 Unspecified atrial fibrillation; Z79.4 Long term (current) use of insulin; Z93.3 Colostomy status; F03.90 Unspecified dementia, unspecified severity, without behavioral disturbance, psychotic disturbance, mood disturbance, and anxiety; E87.5 Hyperkalemia; E86.0 Dehydration; D64.9 Anemia, unspecified; E11.622 Type 2 diabetes mellitus with other skin ulcer; L89.159 Pressure ulcer of sacral region, unspecified stage; L89.509 Pressure ulcer of unspecified ankle, unspecified stage

== ENCOUNTER 2018-03-14 15:24 | Inpatient (IN) | payer MEDICARE, OTHER ==
[2018-03-14 15:28] VITALS: BMI 25.0
[2018-03-14] MEDS ORDERED: Calcium Gluconate 4.65 mEq/10 ml Inj IVP ONE (15:48)
[2018-03-14] MEDS ORDERED: Sodium Bicarbonate (8.4%) 50 Meq Syringe IVP ONE ×2 (15:48→17:00)
[2018-03-14] MEDS ORDERED: Sodium Bicarbonate (8.4%) 50 Meq Syringe ONE (15:51)
[2018-03-14] MEDS ORDERED: Calcium Gluconate 4.65 mEq/10 ml Inj ONE (15:51)
[2018-03-14 15:52] LABS: BASO % 0.3 % (0.0-2.0); EOS % 0.1 % (0.0-4.0); HEMOGLOBIN 11.4 g/dL (12.0-18.0); LYMPH % 8.4 % (20.0-40.0); MEAN CELL VOLUME 92.5 fL (80.0-94.0); MEAN CORPUSCULAR HEMOGLOBIN 28.5 pg (27.0-31.0); MEAN CORPUSCULAR HGB CONC 30.8 g/dL (33.0-37.0); MEAN PLATELET VOLUME 7.2 fL (7.2-11.7); MONO # 0.7 K/uL (0.0-0.8); MONO % 5.9 % (0.0-10.0); NEUT # 10.6 K/uL (1.8-7.0); NEUT % 85.3 % (50.0-75.0); NRBC % 0.5 % (0.0-2.0); PLATELET COUNT 421 K/uL (130-400); RBC 4.02 Mil/uL (4.40-5.90); RED CELL DISTRIBUTION WIDTH 17.7 % (11.5-14.5); WHITE BLOOD COUNT 12.5 K/uL (4.8-10.8)
[2018-03-14 16:08] LABS: VENOUS BLOOD GAS BASE EXCESS -19.4 mmol/L (0.0-2.0); VENOUS BLOOD GAS PCO2 43 mmHg (40-60); VENOUS BLOOD GAS PO2 22 mm/Hg (30-55); VENOUS BLOOD PH 7.02 (7.32-7.43)
[2018-03-14] MEDS ORDERED: Insulin Human Regular 100 UNIT in Sodium Chloride 0.9% 99 ML IV SCH (16:15)
[2018-03-14] MEDS ORDERED: Piperacillin/Tazobact 3.375 GM in Sodium Chloride 100 ML IVPB STA (16:15)
[2018-03-14 16:19] LABS: TROPONIN I 0.114 ng/mL (0.00-0.120)
[2018-03-14 16:30] LABS: ALB/GLOB RATIO 0.8 (1.0-2.1); ALBUMIN 4.4 g/dL (3.5-5.0); CALCIUM 12.7 mg/dl (8.6-10.4)
[2018-03-14 16:44] LABS: ARTERIAL BLOOD GAS HCO3 15.1 mmol/L (21-28); ARTERIAL BLOOD GAS O2 SAT 98.7 % (95-98); ARTERIAL BLOOD GAS PCO2 20 mm/Hg (35-45); ARTERIAL BLOOD GAS PH 7.34 (7.35-7.45); ARTERIAL BLOOD GAS PO2 227 mm/Hg (80-100); ARTERIAL BLOOD GAS TCO2 11.4 mmol/L (22-28)
[2018-03-14 16:47] LABS: INR 1.2; PROTHROMBIN TIME 13.4 SECONDS (9.7-12.2)
[2018-03-14] MEDS ORDERED: Sodium Chloride 0.9% 1,000 ML IV ONE (16:54)
[2018-03-14] MEDS: Albuterol 0.083% Inhal Sol (2.5 mg/3 mL) UD INH SCH ×2 (17:11→18:12)
[2018-03-14] MEDS ORDERED: Piperacillin/Tazobact 3.375 gm 100 ML IVPB ONE (17:24)
--- NOTE | 2018-03-14 17:24 | C.PDOC ---
History Of Present Illness 72 y/o male sent to ED from [facility] for changed mental status. At ED patient is minimally responsive and no fever is reported as per [facility]. No further complaints at this time. Time Seen by Provider: 03/14/18 15:39 Chief Complaint (Nursing): Shortness Of Breath History Per: EMS, Other (jail) History/Exam Limitations: clinical condition Onset/Duration Of Symptoms: Days Current Symptoms Are (Timing): Still Present Past Medical History Reviewed: Historical Data, Nursing Documentation, Vital Signs Vital Signs: Last Vital Signs Temp 98.6 F 03/14/18 15:29 Pulse 97 H 03/14/18 17:12 Resp 29 H 03/14/18 17:12 BP 136/56 L 03/14/18 17:12 Pulse Ox 100 03/14/18 17:12 - Medical History PMH: Alzheimer's Disease, Anemia, Anxiety, Benign Prostatic Hyperplasia, Dementia, HTN, Chronic Kidney Disease, Schizophrenia Surgical History: No Surg Hx - [facility] Procedures INSERTION OF INFUSION DEVICE INTO UPPER VEIN, PERC APPROACH (01/13/18) TRANSFUSE NONAUT RED BLOOD CELLS IN PERIPH VEIN, PERC (01/13/18) ULTRASONOGRAPHY OF HEART WITH AORTA, TRANSESOPHAGEAL (01/13/18) Family History: States: No Known Family Hx - Social History Hx Alcohol Use: No Hx Substance Use: No - Immunization History Hx Tetanus Toxoid Vaccination: No Hx Influenza Vaccination: No Hx Pneumococcal Vaccination: No Review Of Systems Review Of Systems: ROS cannot be obtained secondary to pt's inabilty to answer questions. Physical Exam - Physical Exam Appears: Non-toxic, Other (obtunded) Skin: Warm, Dry, No Rash Head: Atraumatic, Normacephalic Eye(s): bilateral: Normal Inspection Oral Mucosa: Dry Neck: Supple Cardiovascular: Rhythm Regular Respiratory: Rales (bilaterally), No Rhonchi, No Wheezing Gastrointestinal/Abdominal: Soft, No Tenderness, No Guarding, No Rebound, Other (Colostomy Bag on right side. No erythema or signs of infection) Back: Other (sacral decubitus ulcer) Neurological/Psych: Other (Minimal response to painful stimuli.) ED Course And Treatment - Laboratory Results Result Diagrams: 03/14/18 15:49 03/14/18 15:49 ECG: Interpreted By Me, Viewed By Me ECG Rhythm: Sinus Rhythm, L BBB Interpretation Of ECG: Wide QRS/QT, LBBB Rate From EC (BPM) O2 Sat by Pulse Oximetry: 100 (RA) Pulse Ox Interpretation: Normal Progress Note: Code sepsis called secondary to Elevated Lactate. Dr. Silvestre Hernandes, Dr. Ceron and Dr. Greenfield on consult. At ED Patient received therapy for Hypokalemia with +change to front desk monitor. Patient admitted to ICU, subject to receive Emergent Dialysis Critical Care Time - Critical Care Note Total Time (in mins): 90 Documented critical care: time excludes all time spent performing seperately billable procedures. Disposition - Disposition Disposition: HOSPITALIZED Disposition Time: 16:50 Condition: CRITICAL - Clinical Impression Clinical Impression: Sepsis due to urinary tract infection, DKA, type 1, Renal failure, Acute hyperkalemia - Scribe Statement The provider has reviewed the documentation as recorded by the Juanibraza Salinas All medical record entries made by the Scribe were at my direction and personally dictated by me. I have reviewed the chart and agree that the record accurately reflects my personal performance of the history, physical exam, medical decision making, and the department course for this patient. I have also personally directed, reviewed, and agree with the discharge instructions and disposition.
[2018-03-14 18:16] LABS: URINE BACTERIA MANY (<OCC); URINE BILIRUBIN NEGATIVE (NEGATIVE); URINE BLOOD 3+ (NEGATIVE); URINE CLARITY Turbid (Clear); URINE COLOR Yellow (YELLOW); URINE GLUCOSE (UA) 1+ mg/dL (Normal); URINE LEUKOCYTE ESTERASE 2+ Leu/uL (Negative); URINE PROTEIN 2+ mg/dL (NEGATIVE); URINE UROBILINOGEN NORMAL mg/dL (0.2-1.0); WBC CLUMPS MANY /hpf
--- NOTE | 2018-03-14 18:18 | CP.PCM.CON ---
<Tony Carrillo - Last Filed: 03/14/18 18:45> History of Present Illness - History of Present Illness History of Present Illness: PGY1 Critical Care Consult Note for Dr. Greenfield This is a 72-year-old male with PMH obtained from previous records which include, but is not limited to: Anemia, Dementia, Atrial Fibrillation, CKD stage 4, CHF, Diabetes Mellitus, who was brought to the ED from Longterm for altered mental status. Full history could not be obtained at the time of the exam due to patient being minimally responsive. While in the ED: CODE SEPSIS was called 2/2 elevated lactic acid. Vascular Surgery was consulted (Dr. Ceron.) Patient was found to be hyperkalemic with positive EKG changes and was treated in ED. ICU team consulted for need for emergent dialysis. Please Note, ROS could not be obtained due to clinical condition. Review of Systems - Review of Systems Systems not reviewed;Unavailable: Acuity of Condition Past Patient History - Infectious Disease Hx of Infectious Diseases: None - Tetanus Immunizations Tetanus Immunization: Unknown - Past Medical History & Family History Past Medical History?: Yes - Past Social History Smoking Status: Unknown If Ever Smoked - CARDIAC Hx Hypertension: Yes - PULMONARY Hx Respiratory Disorders: Yes - NEUROLOGICAL Hx Alzheimer's Disease: Yes Hx Dementia: Yes - HEENT Hx HEENT Problems: No - RENAL Hx Chronic Kidney Disease: Yes - ENDOCRINE/METABOLIC Hx Endocrine Disorders: Yes Hx Diabetes Mellitus Type 2: Yes - HEMATOLOGICAL/ONCOLOGICAL Hx Anemia: Yes - INTEGUMENTARY Hx Dermatological Problems: Yes Other/Comment: sacral wound, multiple wound/ ulcers - MUSCULOSKELETAL/RHEUMATOLOGICAL Hx Falls: No - GASTROINTESTINAL Hx Gastrointestinal Disorders: Yes Hx Colostomy: Yes (right side) Hx Gastroesophageal Reflux: Yes - GENITOURINARY/GYNECOLOGICAL Hx Genitourinary Disorders: Yes - PSYCHIATRIC Hx Anxiety: Yes Hx Schizophrenia: Yes Hx Substance Use: No - SURGICAL HISTORY Hx Surgeries: No - ANESTHESIA Hx Anesthesia: No Hx Anesthesia Reactions: No Meds Allergies/Adverse Reactions: Allergies Allergy/AdvReac Type Severity Reaction Status Date / Time No Known Allergies Allergy Verified 03/14/18 15:28 - Medications Medications: Current Medications Albuterol Sulfate (Albuterol 0.083% Inhal Padmini (2.5 Mg/3 Ml) Ud) 2.5 mg INH Q1H NEL Albuterol/Ipratropium (Duoneb 3 Mg/0.5 Mg (3 Ml) Ud) 3 ml INH RQ6 NEL Heparin Sodium (Porcine) (Heparin) 5,000 units SC Q8 NEL Insulin Human Regular 100 unit (/ Sodium Chloride) 100 mls @ 2 mls/hr IV .Q24H NEL; Protocol Last Admin: 03/14/18 17:57 Dose: 2 mls/hr Piperacillin Sod/Tazobactam (Sod 2.25 gm/ Sodium Chloride) 100 mls @ 200 mls/hr IVPB Q8H [facility]; Protocol Sodium Chloride (Sodium Chloride 0.9%) 1,000 mls @ 250 mls/hr IV .Q4H ONE Stop: 03/14/18 20:53 Pantoprazole Sodium (Protonix Inj) 40 mg IVP DAILY [facility] Physical Exam - Constitutional Appears: Toxic, Cachectic, Chronically Ill - Head Exam Head Exam: ATRAUMATIC, NORMAL INSPECTION, NORMOCEPHALIC - Eye Exam Eye Exam: EOMI, Normal appearance Pupil Exam: NORMAL ACCOMODATION - ENT Exam ENT Exam: Mucous Membranes Dry - Neck Exam Neck exam: Positive for: Normal Inspection - Respiratory Exam Respiratory Exam: absent: Clear to Auscultation Bilateral Additional comments: scattered rales bilaterally - Cardiovascular Exam Cardiovascular Exam: REGULAR RHYTHM, +S1, +S2 - GI/Abdominal Exam GI & Abdominal Exam: Normal Bowel Sounds, Soft. absent: Distended, Firm, Guarding, Tenderness Additional comments: colostomy bag on right side in tact and without oozing and/or erythema - Extremities Exam Extremities exam: Positive for: normal inspection - Neurological Exam Neurological exam: Alert Additional comments: minimal responsiveness to painful stimuli arousable - Skin Skin Exam: Dry, Intact, Normal Color, Warm Additional comments: sacral decubitus ulcer Results - Vital Signs Recent Vital Signs: Last Vital Signs Temp 98.6 F 03/14/18 15:29 Pulse 99 H 03/14/18 17:31 Resp 30 H 03/14/18 17:31 BP 130/44 L 03/14/18 17:31 Pulse Ox 100 03/14/18 17:31 - Labs Result Diagrams: 03/14/18 15:49 03/14/18 15:49 Labs: Laboratory Results - last 24 hr 03/14/18 03/14/18 03/14/18 15:43 15:49 15:49 WBC 12.5 H D RBC 4.02 L Hgb 11.4 L D Hct 37.2 MCV 92.5 D MCH 28.5 MCHC 30.8 L RDW 17.7 H Plt Count 421 H D MPV 7.2 Neut % (Auto) 85.3 H Lymph % (Auto) 8.4 L [place] % (Auto) 5.9 Eos % (Auto) 0.1 Baso % (Auto) 0.3 Neut # (Auto) 10.6 H Lymph # (Auto) 1.0 [place] # (Auto) 0.7 Eos # (Auto) 0.0 Baso # (Auto) 0.0 PT 13.4 H INR 1.2 APTT 21 Puncture Site pCO2 pO2 HCO3 ABG pH ABG Total CO2 ABG O2 Saturation ABG Base Excess Lionel Test ABG Potassium VBG pH VBG pCO2 VBG HCO3 VBG Total CO2 VBG O2 Sat (Calc) VBG Base Excess VBG Potassium Glucose Lactate Crit Value Called To Crit Value Called By Crit Value Read Back Blood Gas Notified Time Sodium Potassium Chloride Carbon Dioxide Anion Gap BUN Creatinine Est GFR ( Amer) Est GFR (Non-Af Amer) POC Glucose (mg/dL) 397 H Random Glucose Calcium Phosphorus Magnesium Total Bilirubin AST ALT Alkaline Phosphatase Troponin I NT-Pro-B Natriuret Pep Total Protein Albumin Globulin Albumin/Globulin Ratio Arterial Blood Potassium Venous Blood Potassium 03/14/18 03/14/18 03/14/18 15:49 16:01 16:36 WBC RBC Hgb Hct MCV MCH MCHC RDW Plt Count MPV Neut % (Auto) Lymph % (Auto) [place] % (Auto) Eos % (Auto) Baso % (Auto) Neut # (Auto) Lymph # (Auto) [place] # (Auto) Eos # (Auto) Baso # (Auto) PT INR APTT Puncture Site Rba pCO2 20 L pO2 22 L 227 H HCO3 15.1 L ABG pH 7.34 L ABG Total CO2 11.4 L ABG O2 Saturation 98.7 H ABG Base Excess -12.7 L Lionel Test Na ABG Potassium 6.3 H* VBG pH 7.02 L* VBG pCO2 43 VBG HCO3 7.6 VBG Total CO2 12.4 L VBG O2 Sat (Calc) 33.4 L VBG Base Excess -19.4 L VBG Potassium 10.6 H* Glucose 427 H* D 272 H Lactate 7.7 H* 3.5 H Crit Value Called To do Eddie Morgan m Crit Value Called By Catrina Fritz Crit Value Read Back Y Y Blood Gas Notified Time 1607 1643 Sodium 144 140.0 147.0 Potassium 10.1 H* D Chloride 103 108.0 H 124.0 H Carbon Dioxide 9 L* D Anion Gap 42 H BUN 128 H* D Creatinine 12.4 H* D Est GFR ( Amer) 5 Est GFR (Non-Af Amer) 4 POC Glucose (mg/dL) Random Glucose 439 H* D Calcium 12.7 H Phosphorus 11.5 H Magnesium 3.7 H Total Bilirubin 0.8 AST 42 ALT 28 Alkaline Phosphatase 301 H D Troponin I 0.1140 NT-Pro-B Natriuret Pep 81820 H Total Protein 9.6 H Albumin 4.4 Globulin 5.3 H Albumin/Globulin Ratio 0.8 L Arterial Blood Potassium 6.3 H* Venous Blood Potassium 10.6 H* 03/14/18 17:51 WBC RBC Hgb Hct MCV MCH MCHC RDW Plt Count MPV Neut % (Auto) Lymph % (Auto) [place] % (Auto) Eos % (Auto) Baso % (Auto) Neut # (Auto) Lymph # (Auto) [place] # (Auto) Eos # (Auto) Baso # (Auto) PT INR APTT Puncture Site pCO2 pO2 HCO3 ABG pH ABG Total CO2 ABG O2 Saturation ABG Base Excess Lionel Test ABG Potassium VBG pH VBG pCO2 VBG HCO3 VBG Total CO2 VBG O2 Sat (Calc) VBG Base Excess VBG Potassium Glucose Lactate Crit Value Called To Crit Value Called By Crit Value Read Back Blood Gas Notified Time Sodium Potassium Chloride Carbon Dioxide Anion Gap BUN Creatinine Est GFR ( Amer) Est GFR (Non-Af Amer) POC Glucose (mg/dL) 339 H Random Glucose Calcium Phosphorus Magnesium Total Bilirubin AST ALT Alkaline Phosphatase Troponin I NT-Pro-B Natriuret Pep Total Protein Albumin Globulin Albumin/Globulin Ratio Arterial Blood Potassium Venous Blood Potassium Assessment & Plan - Assessment and Plan (Free Text) Assessment: This is a 72-year-old male with PMH obtained from previous records which include, but is not limited to: Anemia, Dementia, Atrial Fibrillation, CKD stage 4, CHF, Diabetes Mellitus, who was brought to the ED from Longterm for altered mental status. Full history could not be obtained at the time of the exam due to patient being minimally responsive. While in the ED: CODE SEPSIS was called 2/2 elevated lactic acid. Vascular Surgery was consulted (Dr. Ceron.) Patient was found to be hyperkalemic with positive EKG changes and was treated in ED. ICU team consulted for need for emergent dialysis. Please Note, ROS could not be obtained due to clinical condition. Renal: - Stage 4 CKD; patient will likely need emergent dialysis - Hyperkalemia (6.3 on ABG @16:36) - Metabolic acidosis (ABG) - CBC, CMP, Mg, Phos repeat at 22:00 - Acute Renal Failure - Nephrology consulted for emergent dialysis (Dr. Jean,) recommendations appreciated CV: - CXR obtained - EKG obtained Pulm: - No intubation at this time - 100% O2 via NC - Monitor GI/: - Colostomy bag on right in tact - NPO except meds - Monitor I&O Neuro: - Patient is able to be aroused but minimally responsive on exam - Monitor neurochecks ID: - Leukocytosis on admission - Lactate =7.7 on admission (repeat=3.5) - Start Vanco - Start Zosyn Patient seen and case discussed with Dr. Gin Carrillo PGY1 <Joaquin Greenfield - Last Filed: 03/21/18 13:47> Meds - Medications Medications: Current Medications Albuterol/Ipratropium (Duoneb 3 Mg/0.5 Mg (3 Ml) Ud) 3 ml INH RQ6 NEL Last Admin: 03/21/18 08:13 Dose: 3 ml Heparin Sodium (Porcine) (Heparin) 5,000 units SC Q8 NEL Last Admin: 03/21/18 05:09 Dose: 5,000 units Piperacillin Sod/Tazobactam (Sod 2.25 gm/ Sodium Chloride) 100 mls @ 200 mls/hr IVPB Q8H NEL; Protocol Last Admin: 03/21/18 10:48 Dose: 200 mls/hr Daptomycin 400 mg/ Sodium (Chloride) 100 mls @ 100 mls/hr IV MWF NEL; Protocol Stop: 03/26/18 09:01 Last Admin: 03/21/18 09:18 Dose: 100 mls/hr Insulin Human Regular (Novolin R) 0 unit SC Q6 [facility]; Protocol Last Admin: 03/21/18 12:48 Dose: Not Given Nystatin (Nystop Topical Powder) 1 applic TOP BID [facility] Last Admin: 03/21/18 09:25 Dose: 1 applic Pantoprazole Sodium (Protonix Susp) 40 mg GT DAILY [facility] Last Admin: 03/21/18 09:24 Dose: 40 mg Valproate Sodium (Depakene Oral Soln) 250 mg PO BID [facility] Last Admin: 03/21/18 09:24 Dose: 250 mg Results - Vital Signs Recent Vital Signs: Last Vital Signs Temp 97.4 F L 03/21/18 08:00 Pulse 59 L 03/21/18 13:00 Resp 21 03/21/18 13:00 BP 119/49 L 03/21/18 12:37 Pulse Ox 100 03/21/18 13:00 - Labs Result Diagrams: 03/21/18 06:26 03/21/18 06:27 Labs: Laboratory Results - last 24 hr 03/20/18 03/20/18 03/21/18 11:43 18:25 00:03 WBC RBC Hgb Hct MCV MCH MCHC RDW Plt Count MPV Neut % (Auto) Lymph % (Auto) [place] % (Auto) Eos % (Auto) Baso % (Auto) Neut # (Auto) Lymph # (Auto) [place] # (Auto) Eos # (Auto) Baso # (Auto) Neutrophils % (Manual) Lymphocytes % (Manual) Monocytes % (Manual) Eosinophils % (Manual) Platelet Estimate Polychromasia Hypochromasia (manual) Anisocytosis (manual) Sodium Potassium Chloride Carbon Dioxide Anion Gap BUN Creatinine Est GFR ( Amer) Est GFR (Non-Af Amer) POC Glucose (mg/dL) 128 H 91 89 Random Glucose Calcium Phosphorus Magnesium Total Bilirubin AST ALT Alkaline Phosphatase Total Protein Albumin Globulin Albumin/Globulin Ratio 03/21/18 03/21/18 03/21/18 05:21 06:26 06:27 WBC 11.1 H RBC 2.94 L Hgb 8.9 L Hct 26.8 L MCV 91.1 MCH 30.4 MCHC 33.4 RDW 16.0 H Plt Count 197 MPV 8.1 Neut % (Auto) 86.9 H Lymph % (Auto) 6.8 L [place] % (Auto) 4.5 Eos % (Auto) 1.4 Baso % (Auto) 0.4 Neut # (Auto) 9.6 H Lymph # (Auto) 0.8 L [place] # (Auto) 0.5 Eos # (Auto) 0.2 Baso # (Auto) 0.0 Neutrophils % (Manual) 88 H Lymphocytes % (Manual) 8 L Monocytes % (Manual) 2 Eosinophils % (Manual) 2 Platelet Estimate Normal Polychromasia Slight Hypochromasia (manual) Slight Anisocytosis (manual) Slight Sodium 149 H Potassium 3.5 L Chloride 113 H Carbon Dioxide 28 Anion Gap 12 BUN 38 H Creatinine 2.9 H Est GFR ( Amer) 26 Est GFR (Non-Af Amer) 21 POC Glucose (mg/dL) 82 Random Glucose 81 Calcium 7.2 L Phosphorus 2.9 Magnesium 1.9 Total Bilirubin 0.5 AST 42 ALT 44 Alkaline Phosphatase 148 H Total Protein 5.8 L Albumin 2.6 L Globulin 3.2 Albumin/Globulin Ratio 0.8 L Assessment & Plan - Assessment and Plan (Free Text) Assessment: Patient was seen by me in the emergency room. Patient admitted initially with the severe dehydration, hyperkalemia and respi ratory failure. Initially treated aggressively in the emergency room. Will admit the patient to the intensive care unit. Possible hemodialysis today. Agree with the current plan and assessment and will follow the patient
--- NOTE | 2018-03-14 18:38 | PCM.PROC ---
Procedures Attestation:: I certify that I have explained the specified Operation(s) or Procedure(s), risks, benefits and reasonable alternatives to the Patient and/or other person responsible. The opportunity was given to ask questions and all questions answered - Central Line Placement Left Femoral Hemodialysis Access Aseptic technique was employed throughout the procedure: Hand Hygiene done prior to procedure, Full sterile barriers (mask, hair cover, sterile gown, sterile gloves), Full body sterile drape, Chloraprep Antiseptic: 2 minute prep for Femoral CVP Time Out Performed: Yes Pt. Placed on Pulse Ox Monitor: Yes Central Line Prep: Chlorhexidine-Alcohol Combination Local Anesthesia Used: Lidocaine 1% Amount of Anesthesia Used (mls): 3 Ultrasound Used for Placement: Yes Central Line Lumen Inserted: double Central Line Length: 16 cm Post Procedure: Sutured in Place, Good Blood Return, All Ports Aspirated, Flushed, Capped (flushed with heparin saline solution), Sterile Dressing Applied Secured by: Suture Post procedure dressing: Gauze, Chlorhexidine disc (Biopatch) Post Procedure X-Ray: No Patient Tolerated Procedure: Well Immediate Complications: Other (Wire bent during initial puncture--New puncture with a completely new, sterile kit was performed successfully)
[2018-03-14 18:43] LABS: ANISOCYTOSIS SLIGHT; BANDS 4 % (0-2); LYMPHOCYTE 10 % (20-40); MONOCYTE 5 % (0-10); NEUTROPHIL 81 % (50-75); PLATELET ESTIMATE SLIGHTLY INCREASED (NORMAL); TOTAL CELLS COUNTED 100
[2018-03-14] MEDS: (Novolin R) Insulin Human Regular 100 units/ml vial SC SCH ×3 (18:45→21:03)
--- NOTE | 2018-03-14 19:41 | CP.PCM.HP ---
Past Patient History - Infectious Disease Hx of Infectious Diseases: None - Tetanus Immunizations Tetanus Immunization: Unknown - Past Medical History & Family History Past Medical History?: Yes - Past Social History Smoking Status: Unknown If Ever Smoked - CARDIAC Hx Hypertension: Yes - PULMONARY Hx Respiratory Disorders: Yes - NEUROLOGICAL Hx Alzheimer's Disease: Yes Hx Dementia: Yes - HEENT Hx HEENT Problems: No - RENAL Hx Chronic Kidney Disease: Yes - ENDOCRINE/METABOLIC Hx Endocrine Disorders: Yes Hx Diabetes Mellitus Type 2: Yes - HEMATOLOGICAL/ONCOLOGICAL Hx Anemia: Yes - INTEGUMENTARY Hx Dermatological Problems: Yes Other/Comment: sacral wound, multiple wound/ ulcers - MUSCULOSKELETAL/RHEUMATOLOGICAL Hx Falls: No - GASTROINTESTINAL Hx Gastrointestinal Disorders: Yes Hx Colostomy: Yes (right side) Hx Gastroesophageal Reflux: Yes - GENITOURINARY/GYNECOLOGICAL Hx Genitourinary Disorders: Yes - PSYCHIATRIC Hx Anxiety: Yes Hx Schizophrenia: Yes Hx Substance Use: No - SURGICAL HISTORY Hx Surgeries: No - ANESTHESIA Hx Anesthesia: No Hx Anesthesia Reactions: No Meds Allergies/Adverse Reactions: Allergies Allergy/AdvReac Type Severity Reaction Status Date / Time No Known Allergies Allergy Verified 03/14/18 15:28 Physical Exam - Constitutional Appears: Well - Head Exam Head Exam: ATRAUMATIC, NORMAL INSPECTION, NORMOCEPHALIC - Eye Exam Eye Exam: EOMI, Normal appearance, PERRL Pupil Exam: NORMAL ACCOMODATION, PERRL - ENT Exam ENT Exam: Mucous Membranes Moist, Normal Exam - Neck Exam Neck exam: Positive for: Normal Inspection - Respiratory Exam Respiratory Exam: Decreased Breath Sounds - Cardiovascular Exam Cardiovascular Exam: REGULAR RHYTHM, +S1, +S2 - GI/Abdominal Exam GI & Abdominal Exam: Diminished Bowel Sounds, Soft - Rectal Exam Rectal Exam: Deferred Results - Vital Signs Recent Vital Signs: Last Vital Signs Temp 97.2 F L 03/14/18 18:01 Pulse 97 H 03/14/18 18:01 Resp 26 H 03/14/18 18:01 BP 138/54 L 03/14/18 18:01 Pulse Ox 100 03/14/18 18:53 - Labs Result Diagrams: 03/14/18 15:49 03/14/18 15:49 Labs: Laboratory Results - last 24 hr 03/14/18 03/14/18 03/14/18 15:43 15:49 15:49 WBC 12.5 H D RBC 4.02 L Hgb 11.4 L D Hct 37.2 MCV 92.5 D MCH 28.5 MCHC 30.8 L RDW 17.7 H Plt Count 421 H D MPV 7.2 Neut % (Auto) 85.3 H Lymph % (Auto) 8.4 L [place] % (Auto) 5.9 Eos % (Auto) 0.1 Baso % (Auto) 0.3 Neut # (Auto) 10.6 H Lymph # (Auto) 1.0 [place] # (Auto) 0.7 Eos # (Auto) 0.0 Baso # (Auto) 0.0 Neutrophils % (Manual) 81 H Band Neutrophils % 4 H Lymphocytes % (Manual) 10 L Monocytes % (Manual) 5 Platelet Estimate Slightly increased H Anisocytosis (manual) Slight PT 13.4 H INR 1.2 APTT 21 Puncture Site pCO2 pO2 HCO3 ABG pH ABG Total CO2 ABG O2 Saturation ABG Base Excess Lionel Test ABG Potassium VBG pH VBG pCO2 VBG HCO3 VBG Total CO2 VBG O2 Sat (Calc) VBG Base Excess VBG Potassium Glucose Lactate Crit Value Called To Crit Value Called By Crit Value Read Back Blood Gas Notified Time Sodium Potassium Chloride Carbon Dioxide Anion Gap BUN Creatinine Est GFR ( Amer) Est GFR (Non-Af Amer) POC Glucose (mg/dL) 397 H Random Glucose Calcium Phosphorus Magnesium Total Bilirubin AST ALT Alkaline Phosphatase Troponin I NT-Pro-B Natriuret Pep Total Protein Albumin Globulin Albumin/Globulin Ratio Arterial Blood Potassium Venous Blood Potassium Urine Color Urine Clarity Urine pH Ur Specific [place] Urine Protein Urine Glucose (UA) Urine Ketones Urine Blood Urine Nitrate Urine Bilirubin Urine Urobilinogen Ur Leukocyte Esterase Urine WBC (Auto) Urine RBC (Auto) Urine WBC Clumps (Auto) Urine Bacteria 03/14/18 03/14/18 03/14/18 15:49 16:01 16:36 WBC RBC Hgb Hct MCV MCH MCHC RDW Plt Count MPV Neut % (Auto) Lymph % (Auto) [place] % (Auto) Eos % (Auto) Baso % (Auto) Neut # (Auto) Lymph # (Auto) [place] # (Auto) Eos # (Auto) Baso # (Auto) Neutrophils % (Manual) Band Neutrophils % Lymphocytes % (Manual) Monocytes % (Manual) Platelet Estimate Anisocytosis (manual) PT INR APTT Puncture Site Rba pCO2 20 L pO2 22 L 227 H HCO3 15.1 L ABG pH 7.34 L ABG Total CO2 11.4 L ABG O2 Saturation 98.7 H ABG Base Excess -12.7 L Lionel Test Na ABG Potassium 6.3 H* VBG pH 7.02 L* VBG pCO2 43 VBG HCO3 7.6 VBG Total CO2 12.4 L VBG O2 Sat (Calc) 33.4 L VBG Base Excess -19.4 L VBG Potassium 10.6 H* Glucose 427 H* D 272 H Lactate 7.7 H* 3.5 H Crit Value Called To do Eddie Morgan m Crit Value Called By Catrina Fritz Crit Value Read Back Y Y Blood Gas Notified Time 1607 1643 Sodium 144 140.0 147.0 Potassium 10.1 H* D Chloride 103 108.0 H 124.0 H Carbon Dioxide 9 L* D Anion Gap 42 H BUN 128 H* D Creatinine 12.4 H* D Est GFR ( Amer) 5 Est GFR (Non-Af Amer) 4 POC Glucose (mg/dL) Random Glucose 439 H* D Calcium 12.7 H Phosphorus 11.5 H Magnesium 3.7 H Total Bilirubin 0.8 AST 42 ALT 28 Alkaline Phosphatase 301 H D Troponin I 0.1140 NT-Pro-B Natriuret Pep 24769 H Total Protein 9.6 H Albumin 4.4 Globulin 5.3 H Albumin/Globulin Ratio 0.8 L Arterial Blood Potassium 6.3 H* Venous Blood Potassium 10.6 H* Urine Color Urine Clarity Urine pH Ur Specific [place] Urine Protein Urine Glucose (UA) Urine Ketones Urine Blood Urine Nitrate Urine Bilirubin Urine Urobilinogen Ur Leukocyte Esterase Urine WBC (Auto) Urine RBC (Auto) Urine WBC Clumps (Auto) Urine Bacteria 03/14/18 03/14/18 03/14/18 17:51 18:05 18:41 WBC RBC Hgb Hct MCV MCH MCHC RDW Plt Count MPV Neut % (Auto) Lymph % (Auto) [place] % (Auto) Eos % (Auto) Baso % (Auto) Neut # (Auto) Lymph # (Auto) [place] # (Auto) Eos # (Auto) Baso # (Auto) Neutrophils % (Manual) Band Neutrophils % Lymphocytes % (Manual) Monocytes % (Manual) Platelet Estimate Anisocytosis (manual) PT INR APTT Puncture Site pCO2 pO2 HCO3 ABG pH ABG Total CO2 ABG O2 Saturation ABG Base Excess Lionel Test ABG Potassium VBG pH VBG pCO2 VBG HCO3 VBG Total CO2 VBG O2 Sat (Calc) VBG Base Excess VBG Potassium Glucose Lactate Crit Value Called To Crit Value Called By Crit Value Read Back Blood Gas Notified Time Sodium Potassium Chloride Carbon Dioxide Anion Gap BUN Creatinine Est GFR ( Amer) Est GFR (Non-Af Amer) POC Glucose (mg/dL) 339 H 249 H Random Glucose Calcium Phosphorus Magnesium Total Bilirubin AST ALT Alkaline Phosphatase Troponin I NT-Pro-B Natriuret Pep Total Protein Albumin Globulin Albumin/Globulin Ratio Arterial Blood Potassium Venous Blood Potassium Urine Color Yellow Urine Clarity Turbid Urine pH 5.0 Ur Specific [place] 1.014 Urine Protein 2+ H Urine Glucose (UA) 1+ H Urine Ketones Negative Urine Blood 3+ H Urine Nitrate Negative Urine Bilirubin Negative Urine Urobilinogen Normal Ur Leukocyte Esterase 2+ H Urine WBC (Auto) 54802 H Urine RBC (Auto) 207 H Urine WBC Clumps (Auto) Many H Urine Bacteria Many H
[2018-03-14] MEDS: Albuterol-Ipratrop 3 mg / 0.5 (3 ml) UD INH SCH (20:14)
[2018-03-14 20:41] LABS: HEPATITIS B SURFACE AG Negative (NEGATIVE)
[2018-03-14 20:48] LABS: ALB/GLOB RATIO 0.8 (1.0-2.1); ALBUMIN 2.8 g/dL (3.5-5.0); ALT/SGPT 71 U/L (21-72); AST/SGOT 57 U/L (17-59); BLOOD UREA NITROGEN 113 mg/dL (9-20); CALCIUM 13.4 mg/dl (8.6-10.4); GFR NON-AFRICAN AMERICAN 6
[2018-03-14 21:16] LABS: BASO % 0.3 % (0.0-2.0); EOS % 0.1 % (0.0-4.0); HEMOGLOBIN 9.1 g/dL (12.0-18.0); LYMPH # 1.1 K/uL (1.0-4.3); LYMPH % 8.6 % (20.0-40.0); MEAN CORPUSCULAR HEMOGLOBIN 28.8 pg (27.0-31.0); MEAN PLATELET VOLUME 6.9 fL (7.2-11.7); MONO # 0.8 K/uL (0.0-0.8); MONO % 6.7 % (0.0-10.0); NEUT # 10.6 K/uL (1.8-7.0); NEUT % 84.3 % (50.0-75.0); NRBC % 0.2 % (0.0-2.0); PLATELET COUNT 286 K/uL (130-400); RBC 3.15 Mil/uL (4.40-5.90); RED CELL DISTRIBUTION WIDTH 17.2 % (11.5-14.5); WHITE BLOOD COUNT 12.6 K/uL (4.8-10.8)
[2018-03-14] MEDS ORDERED: Albumin Human 25% (12.5 gm/50 ml) IV ONE (21:45)
[2018-03-14 22:11] LABS: HEPATITIS B CORE AB NEGATIVE (NEGATIVE)
[2018-03-14 22:23] LABS: HEPATITIS C ANTIBODY NEGATIVE (NEGATIVE)
[2018-03-14 23:18] LABS: BANDS 26 % (0-2); LYMPHOCYTE 7 % (20-40); METAMYELOCYTE 2 % (0-0); MONOCYTE 3 % (0-10); NEUTROPHIL 62 % (50-75); TOTAL CELLS COUNTED 100
[2018-03-14 23:19] LABS: ANISOCYTOSIS SLIGHT; PLATELET CLUMPS PRESENT; PLATELET ESTIMATE NORMAL (NORMAL)
[2018-03-15] MEDS: Sodium Chloride 0.9% 1,000 ML IV SCH ×2 (00:30→21:28)
[2018-03-15] MEDS: (Novolin R) Insulin Human Regular 100 units/ml vial SC SCH ×6 (00:44→20:30)
[2018-03-15] MEDS: Albuterol-Ipratrop 3 mg / 0.5 (3 ml) UD INH SCH ×4 (01:37→19:30)
[2018-03-15] MEDS: Piperacillin/Tazobact 2.25 GM in Sodium Chloride 100 ML IVPB SCH ×3 (02:12→19:00)
[2018-03-15 04:42] LABS: BASO # 0.1 K/uL (0.0-0.2); BASO % 0.7 % (0.0-2.0); EOS % 0.4 % (0.0-4.0); HEMOGLOBIN 8.2 g/dL (12.0-18.0); LYMPH # 1.1 K/uL (1.0-4.3); LYMPH % 9.7 % (20.0-40.0); MEAN CELL VOLUME 88.5 fL (80.0-94.0); MEAN CORPUSCULAR HEMOGLOBIN 28.8 pg (27.0-31.0); MEAN CORPUSCULAR HGB CONC 32.5 g/dL (33.0-37.0); MEAN PLATELET VOLUME 6.8 fL (7.2-11.7); MONO # 0.8 K/uL (0.0-0.8); NEUT % 82.2 % (50.0-75.0); NRBC % 0.4 % (0.0-2.0); PLATELET COUNT 233 K/uL (130-400); RBC 2.85 Mil/uL (4.40-5.90); RED CELL DISTRIBUTION WIDTH 16.8 % (11.5-14.5)
[2018-03-15 05:15] LABS: ALB/GLOB RATIO 0.8 (1.0-2.1); ALBUMIN 3.2 g/dL (3.5-5.0); CALCIUM 9.1 mg/dl (8.6-10.4)
--- NOTE | 2018-03-15 06:41 | PCM.SEPTIC ---
Sepsis Progress Note - Reassessment Type Date of Evaluation: 03/15/18 Reassessment Type: Non-invasive reassessment - Non Invasive Reassessment Were the most recent vital sign reviewed: Yes Vital Sign (Latest): Temp Pulse Resp BP Pulse Ox 97.8 F 100 H 16 111/52 L 100 03/15/18 04:00 03/15/18 02:01 03/15/18 02:01 03/15/18 02:01 03/15/18 02:01 Cardiovascular: Yes: Regular Rate, Rhythm Respiratory: Yes: Normal Breath Sounds Capillary Refill: Normal (Less than 2 sec) Pulses: Normal Radial, Normal Dorsalis Pedis, Normal Posterior Tibialis Skin: Normal Color Was a passive leg raise performed or was a fluid challenge performed within 6 hrs of the initial fluid bolus: Yes Passive Leg Raise Result: Not Applicable Fluid Challenge performed: Yes
[2018-03-15 06:48] LABS: LYMPHOCYTE 11 % (20-40); MONOCYTE 5 % (0-10); NEUTROPHIL 62 % (50-75); TOTAL CELLS COUNTED 100
--- NOTE | 2018-03-15 09:30 | RAD ---
Date of service: 03/14/2018 HISTORY: Sepsis Patient COMPARISON: Chest radiograph dated 02/16/2018. FINDINGS: LUNGS: Stable chronic prominence of the bilateral interstitial markings. No focal consolidation. PLEURA: No significant pleural effusion identified, no pneumothorax apparent. CARDIOVASCULAR: Aortic atherosclerotic calcifications. Cardiomediastinal silhouette stably enlarged OSSEOUS STRUCTURES: Unchanged. VISUALIZED UPPER ABDOMEN: Normal. OTHER FINDINGS: None. IMPRESSION: No active disease.
--- NOTE | 2018-03-15 10:32 | CP.CCUPN ---
<Tony Carrillo - Last Filed: 03/15/18 18:08> CCU Subjective - Physician Review Events Since Last Encounter (Free Text): 03/15/18 18:09 No acute events overnight Subjective (Free Text): 03/15/18 18:09 PGY1 Critical Care Progress Note for Dr. Stern Patient was seen at bedside this morning. No acute events overnight. Patient minimally responsive. ROS could not be obtained due to clinical condition. Critical Care Time Spent (in minutes): 35 CCU Objective - Vital Signs / Intake & Output Vital Signs (Last 4 hours): Vital Signs Temp Pulse Resp BP Pulse Ox 03/15/18 08:06 90 32 H 108/60 100 03/15/18 08:00 97.4 F L 100 03/15/18 07:06 98/62 L 03/15/18 07:00 86 15 100 Intake and Output (Last 8hrs): Intake & Output 03/14/18 03/15/18 03/15/18 22:59 06:59 14:59 Intake Total 875 975 200 Output Total 525 940 30 Balance 350 35 170 Weight 119 lb 0.794 oz 110 lb 6.4 oz Intake: Intake, IV Amount 875 975 200 RFA #22 350 Right Forearm 875 625 200 Output: Urine 25 90 30 Urethral (Mendes) 25 90 30 Stool 500 850 Other: Voiding Method Indwelling Catheter - Physical Exam Head: Positive for: Atraumatic, Normocephalic Pupils: Positive for: PERRL Extroacular Muscles: Positive for: EOMI Mouth: Positive for: Dry Neck: Positive for: Normal Range of Motion. Negative for: JVD Respiratory/Chest: Positive for: Clear to Auscultation. Negative for: Respiratory Distress, Decreased Breath Sounds Cardiovascular: Positive for: Regular Rate and Rhythm, Normal S1, S2 Abdomen: Positive for: Ostomy Tubes (iliostomy bag clean and dry). Negative for: Tenderness, Distention Upper Extremity: Positive for: Normal Inspection, Capillary Refill < 2s. Negative for: Edema Lower Extremity: Negative for: Normal Inspection, Edema, CALF TENDERNESS, NORMAL PULSES (Left lower extremity is cool to touch compared to the right. No pulses palpable on left lower extremity for pedal and/or popliteal pulses. ) Psychiatric: Positive for: Alert. Negative for: Oriented x 3 - Medications Active Medications: Active Medications Generic Name Dose Route Start Last Admin Trade Name Freq PRN Reason Stop Dose Admin Albuterol/Ipratropium 3 ml 03/14/18 20:00 03/15/18 09:09 Duoneb 3 Mg/0.5 Mg (3 Ml) Ud INH 3 ml RQ6 NEL Administration Heparin Sodium (Porcine) 5,000 units 03/14/18 22:00 03/15/18 05:37 Heparin SC 5,000 units Q8 NEL Administration Piperacillin Sod/Tazobactam 100 mls @ 200 mls/hr 03/15/18 02:00 03/15/18 02:12 Sod 2.25 gm/ Sodium Chloride IVPB 200 mls/hr Q8H NEL Administration Protocol Sodium Chloride 1,000 mls @ 100 mls/hr 03/15/18 00:15 03/15/18 00:30 Sodium Chloride 0.9% IV 100 mls/hr .Q10H NEL Administration Insulin Human Regular 0 unit 03/14/18 20:36 03/15/18 08:25 Novolin R SC Not Given Q4 NEL Protocol Pantoprazole Sodium 40 mg 03/15/18 10:00 Protonix Inj IVP DAILY NEL Pneumococcal Polyvalent Vaccine 0.5 ml 03/16/18 10:00 Pneumovax 23 Vaccine IM 03/16/18 10:01 .ONCE ONE - Patient Studies Lab Studies: Lab Studies 03/15/18 03/15/18 03/15/18 Range/Units 07:26 04:31 04:31 WBC (4.8-10.8) K/uL RBC (4.40-5.90) Mil/uL Hgb (12.0-18.0) g/dL Hct (35.0-51.0) % MCV (80.0-94.0) fL MCH (27.0-31.0) pg MCHC (33.0-37.0) g/dL RDW (11.5-14.5) % Plt Count (130-400) K/uL MPV (7.2-11.7) fL Neut % (Auto) (50.0-75.0) % Lymph % (Auto) (20.0-40.0) % [place] % (Auto) (0.0-10.0) % Eos % (Auto) (0.0-4.0) % Baso % (Auto) (0.0-2.0) % Neut # (Auto) (1.8-7.0) K/uL Lymph # (Auto) (1.0-4.3) K/uL [place] # (Auto) (0.0-0.8) K/uL Eos # (Auto) (0.0-0.7) K/uL Baso # (Auto) (0.0-0.2) K/uL Neutrophils % (Manual) (50-75) % Band Neutrophils % (0-2) % Lymphocytes % (Manual) (20-40) % Monocytes % (Manual) (0-10) % Metamyelocytes % (0-0) % Platelet Estimate (NORMAL) Plt Clumps, EDTA Anisocytosis (manual) PT (9.7-12.2) SECONDS INR APTT (21-34) SECONDS Puncture Site pCO2 (35-45) mm/Hg pO2 (30-55) mm/Hg HCO3 (21-28) mmol/L ABG pH (7.35-7.45) ABG Total CO2 (22-28) mmol/L ABG O2 Saturation (95-98) % ABG Base Excess (-2.0-3.0) mmol/L Lionel Test ABG Potassium (3.6-5.2) mmol/L VBG pH (7.32-7.43) VBG pCO2 (40-60) mmHg VBG HCO3 mmol/L VBG Total CO2 (22-28) mmol/L VBG O2 Sat (Calc) (40-65) % VBG Base Excess (0.0-2.0) mmol/L VBG Potassium (3.6-5.2) mmol/L Glucose (75-110) mg/dl Lactate (0.7-2.1) mmol/L Crit Value Called To Crit Value Called By Crit Value Read Back Blood Gas Notified Time Sodium 147 (132-148) mmol/L Potassium 5.6 H (3.6-5.2) mmol/L Chloride 114 H (98-107) mmol/L Carbon Dioxide 17 L (22-30) mmol/L Anion Gap 22 H (10-20) BUN 83 H (9-20) mg/dL Creatinine 7.5 H* (0.8-1.5) mg/dL Est GFR ( Amer) 9 Est GFR (Non-Af Amer) 7 POC Glucose (mg/dL) 112 H (65-110) mg/dL Random Glucose 114 H (75-110) mg/dL Lactic Acid 1.8 (0.7-2.1) mmol/L Calcium 9.1 (8.6-10.4) mg/dl Phosphorus 4.1 (2.5-4.5) mg/dL Magnesium 2.4 H (1.6-2.3) mg/dL Total Bilirubin 0.9 (0.2-1.3) mg/dL AST 55 (17-59) U/L ALT 39 (21-72) U/L Alkaline Phosphatase 183 H (38-126) U/L Troponin I (0.00-0.120) ng/mL NT-Pro-B Natriuret Pep (0-900) pg/mL Total Protein 7.0 (6.3-8.3) g/dL Albumin 3.2 L (3.5-5.0) g/dL Globulin 3.8 (2.2-3.9) gm/dL Albumin/Globulin Ratio 0.8 L (1.0-2.1) Arterial Blood Potassium (3.6-5.2) mmol/L Venous Blood Potassium (3.6-5.2) mmol/L Urine Color (YELLOW) Urine Clarity (Clear) Urine pH (5.0-8.0) Ur Specific [place] (1.003-1.030) Urine Protein (NEGATIVE) mg/dL Urine Glucose (UA) (Normal) mg/dL Urine Ketones (NEGATIVE) mg/dL Urine Blood (NEGATIVE) Urine Nitrate (NEGATIVE) Urine Bilirubin (NEGATIVE) Urine Urobilinogen (0.2-1.0) mg/dL Ur Leukocyte Esterase (Negative) Shazia/uL Urine WBC (Auto) (0-5) /hpf Urine RBC (Auto) (0-3) /hpf Urine WBC Clumps (Auto) (NONE) /hpf Urine Bacteria (<OCC) Hep Bs Antigen (NEGATIVE) Hep Bs Antibody (NEGATIVE) Hep B Core IgM Ab (NEGATIVE) Hepatitis C Antibody (NEGATIVE) 03/15/18 03/15/18 03/15/18 Range/Units 04:31 04:16 00:42 WBC 11.0 H (4.8-10.8) K/uL RBC 2.85 L (4.40-5.90) Mil/uL Hgb 8.2 L (12.0-18.0) g/dL Hct 25.2 L (35.0-51.0) % MCV 88.5 (80.0-94.0) fL MCH 28.8 (27.0-31.0) pg MCHC 32.5 L (33.0-37.0) g/dL RDW 16.8 H (11.5-14.5) % Plt Count 233 (130-400) K/uL MPV 6.8 L (7.2-11.7) fL Neut % (Auto) 82.2 H (50.0-75.0) % Lymph % (Auto) 9.7 L (20.0-40.0) % [place] % (Auto) 7.0 (0.0-10.0) % Eos % (Auto) 0.4 (0.0-4.0) % Baso % (Auto) 0.7 (0.0-2.0) % Neut # (Auto) 9.0 H (1.8-7.0) K/uL Lymph # (Auto) 1.1 (1.0-4.3) K/uL [place] # (Auto) 0.8 (0.0-0.8) K/uL Eos # (Auto) 0.0 (0.0-0.7) K/uL Baso # (Auto) 0.1 (0.0-0.2) K/uL Neutrophils % (Manual) 62 (50-75) % Band Neutrophils % 22 H* (0-2) % Lymphocytes % (Manual) 11 L (20-40) % Monocytes % (Manual) 5 (0-10) % Metamyelocytes % (0-0) % Platelet Estimate (NORMAL) Plt Clumps, EDTA Anisocytosis (manual) PT (9.7-12.2) SECONDS INR APTT (21-34) SECONDS Puncture Site pCO2 (35-45) mm/Hg pO2 (30-55) mm/Hg HCO3 (21-28) mmol/L ABG pH (7.35-7.45) ABG Total CO2 (22-28) mmol/L ABG O2 Saturation (95-98) % ABG Base Excess (-2.0-3.0) mmol/L Lionel Test ABG Potassium (3.6-5.2) mmol/L VBG pH (7.32-7.43) VBG pCO2 (40-60) mmHg VBG HCO3 mmol/L VBG Total CO2 (22-28) mmol/L VBG O2 Sat (Calc) (40-65) % VBG Base Excess (0.0-2.0) mmol/L VBG Potassium (3.6-5.2) mmol/L Glucose (75-110) mg/dl Lactate (0.7-2.1) mmol/L Crit Value Called To Crit Value Called By Crit Value Read Back Blood Gas Notified Time Sodium (132-148) mmol/L Potassium (3.6-5.2) mmol/L Chloride (98-107) mmol/L Carbon Dioxide (22-30) mmol/L Anion Gap (10-20) BUN (9-20) mg/dL Creatinine (0.8-1.5) mg/dL Est GFR ( Amer) Est GFR (Non-Af Amer) POC Glucose (mg/dL) 101 116 H (65-110) mg/dL Random Glucose (75-110) mg/dL Lactic Acid (0.7-2.1) mmol/L Calcium (8.6-10.4) mg/dl Phosphorus (2.5-4.5) mg/dL Magnesium (1.6-2.3) mg/dL Total Bilirubin (0.2-1.3) mg/dL AST (17-59) U/L ALT (21-72) U/L Alkaline Phosphatase (38-126) U/L Troponin I (0.00-0.120) ng/mL NT-Pro-B Natriuret Pep (0-900) pg/mL Total Protein (6.3-8.3) g/dL Albumin (3.5-5.0) g/dL Globulin (2.2-3.9) gm/dL Albumin/Globulin Ratio (1.0-2.1) Arterial Blood Potassium (3.6-5.2) mmol/L Venous Blood Potassium (3.6-5.2) mmol/L Urine Color (YELLOW) Urine Clarity (Clear) Urine pH (5.0-8.0) Ur Specific [place] (1.003-1.030) Urine Protein (NEGATIVE) mg/dL Urine Glucose (UA) (Normal) mg/dL Urine Ketones (NEGATIVE) mg/dL Urine Blood (NEGATIVE) Urine Nitrate (NEGATIVE) Urine Bilirubin (NEGATIVE) Urine Urobilinogen (0.2-1.0) mg/dL Ur Leukocyte Esterase (Negative) Shazia/uL Urine WBC (Auto) (0-5) /hpf Urine RBC (Auto) (0-3) /hpf Urine WBC Clumps (Auto) (NONE) /hpf Urine Bacteria (<OCC) Hep Bs Antigen (NEGATIVE) Hep Bs Antibody (NEGATIVE) Hep B Core IgM Ab (NEGATIVE) Hepatitis C Antibody (NEGATIVE) 03/14/18 03/14/18 03/14/18 Range/Units 21:10 21:08 21:08 WBC 12.6 H (4.8-10.8) K/uL RBC 3.15 L (4.40-5.90) Mil/uL Hgb 9.1 L D (12.0-18.0) g/dL Hct 28.3 L (35.0-51.0) % MCV 90.0 D (80.0-94.0) fL MCH 28.8 (27.0-31.0) pg MCHC 32.0 L (33.0-37.0) g/dL RDW 17.2 H (11.5-14.5) % Plt Count 286 D (130-400) K/uL MPV 6.9 L (7.2-11.7) fL Neut % (Auto) 84.3 H (50.0-75.0) % Lymph % (Auto) 8.6 L (20.0-40.0) % [place] % (Auto) 6.7 (0.0-10.0) % Eos % (Auto) 0.1 (0.0-4.0) % Baso % (Auto) 0.3 (0.0-2.0) % Neut # (Auto) 10.6 H (1.8-7.0) K/uL Lymph # (Auto) 1.1 (1.0-4.3) K/uL [place] # (Auto) 0.8 (0.0-0.8) K/uL Eos # (Auto) 0.0 (0.0-0.7) K/uL Baso # (Auto) 0.0 (0.0-0.2) K/uL Neutrophils % (Manual) 62 (50-75) % Band Neutrophils % 26 H* (0-2) % Lymphocytes % (Manual) 7 L (20-40) % Monocytes % (Manual) 3 (0-10) % Metamyelocytes % 2 H (0-0) % Platelet Estimate Normal (NORMAL) Plt Clumps, EDTA Present Anisocytosis (manual) Slight PT (9.7-12.2) SECONDS INR APTT (21-34) SECONDS Puncture Site pCO2 (35-45) mm/Hg pO2 (30-55) mm/Hg HCO3 (21-28) mmol/L ABG pH (7.35-7.45) ABG Total CO2 (22-28) mmol/L ABG O2 Saturation (95-98) % ABG Base Excess (-2.0-3.0) mmol/L Lionel Test ABG Potassium (3.6-5.2) mmol/L VBG pH (7.32-7.43) VBG pCO2 (40-60) mmHg VBG HCO3 mmol/L VBG Total CO2 (22-28) mmol/L VBG O2 Sat (Calc) (40-65) % VBG Base Excess (0.0-2.0) mmol/L VBG Potassium (3.6-5.2) mmol/L Glucose (75-110) mg/dl Lactate (0.7-2.1) mmol/L Crit Value Called To Crit Value Called By Crit Value Read Back Blood Gas Notified Time Sodium (132-148) mmol/L Potassium (3.6-5.2) mmol/L Chloride (98-107) mmol/L Carbon Dioxide (22-30) mmol/L Anion Gap (10-20) BUN (9-20) mg/dL Creatinine (0.8-1.5) mg/dL Est GFR ( Amer) Est GFR (Non-Af Amer) POC Glucose (mg/dL) (65-110) mg/dL Random Glucose (75-110) mg/dL Lactic Acid 4.1 H* (0.7-2.1) mmol/L Calcium (8.6-10.4) mg/dl Phosphorus (2.5-4.5) mg/dL Magnesium (1.6-2.3) mg/dL Total Bilirubin (0.2-1.3) mg/dL AST (17-59) U/L ALT (21-72) U/L Alkaline Phosphatase (38-126) U/L Troponin I (0.00-0.120) ng/mL NT-Pro-B Natriuret Pep (0-900) pg/mL Total Protein (6.3-8.3) g/dL Albumin (3.5-5.0) g/dL Globulin (2.2-3.9) gm/dL Albumin/Globulin Ratio (1.0-2.1) Arterial Blood Potassium (3.6-5.2) mmol/L Venous Blood Potassium (3.6-5.2) mmol/L Urine Color (YELLOW) Urine Clarity (Clear) Urine pH (5.0-8.0) Ur Specific [place] (1.003-1.030) Urine Protein (NEGATIVE) mg/dL Urine Glucose (UA) (Normal) mg/dL Urine Ketones (NEGATIVE) mg/dL Urine Blood (NEGATIVE) Urine Nitrate (NEGATIVE) Urine Bilirubin (NEGATIVE) Urine Urobilinogen (0.2-1.0) mg/dL Ur Leukocyte Esterase (Negative) Shazia/uL Urine WBC (Auto) (0-5) /hpf Urine RBC (Auto) (0-3) /hpf Urine WBC Clumps (Auto) (NONE) /hpf Urine Bacteria (<OCC) Hep Bs Antigen (NEGATIVE) Hep Bs Antibody Negative (NEGATIVE) Hep B Core IgM Ab (NEGATIVE) Hepatitis C Antibody (NEGATIVE) 03/14/18 03/14/18 03/14/18 Range/Units 21:08 20:13 19:42 WBC (4.8-10.8) K/uL RBC (4.40-5.90) Mil/uL Hgb (12.0-18.0) g/dL Hct (35.0-51.0) % MCV (80.0-94.0) fL MCH (27.0-31.0) pg MCHC (33.0-37.0) g/dL RDW (11.5-14.5) % Plt Count (130-400) K/uL MPV (7.2-11.7) fL Neut % (Auto) (50.0-75.0) % Lymph % (Auto) (20.0-40.0) % [place] % (Auto) (0.0-10.0) % Eos % (Auto) (0.0-4.0) % Baso % (Auto) (0.0-2.0) % Neut # (Auto) (1.8-7.0) K/uL Lymph # (Auto) (1.0-4.3) K/uL [place] # (Auto) (0.0-0.8) K/uL Eos # (Auto) (0.0-0.7) K/uL Baso # (Auto) (0.0-0.2) K/uL Neutrophils % (Manual) (50-75) % Band Neutrophils % (0-2) % Lymphocytes % (Manual) (20-40) % Monocytes % (Manual) (0-10) % Metamyelocytes % (0-0) % Platelet Estimate (NORMAL) Plt Clumps, EDTA Anisocytosis (manual) PT (9.7-12.2) SECONDS INR APTT (21-34) SECONDS Puncture Site pCO2 (35-45) mm/Hg pO2 (30-55) mm/Hg HCO3 (21-28) mmol/L ABG pH (7.35-7.45) ABG Total CO2 (22-28) mmol/L ABG O2 Saturation (95-98) % ABG Base Excess (-2.0-3.0) mmol/L Lionel Test ABG Potassium (3.6-5.2) mmol/L VBG pH (7.32-7.43) VBG pCO2 (40-60) mmHg VBG HCO3 mmol/L VBG Total CO2 (22-28) mmol/L VBG O2 Sat (Calc) (40-65) % VBG Base Excess (0.0-2.0) mmol/L VBG Potassium (3.6-5.2) mmol/L Glucose (75-110) mg/dl Lactate (0.7-2.1) mmol/L Crit Value Called To Crit Value Called By Crit Value Read Back Blood Gas Notified Time Sodium 152 H (132-148) mmol/L Potassium 7.9 H* D (3.6-5.2) mmol/L Chloride 116 H (98-107) mmol/L Carbon Dioxide 18 L (22-30) mmol/L Anion Gap 26 H (10-20) BUN 113 H* (9-20) mg/dL Creatinine 9.2 H* D (0.8-1.5) mg/dL Est GFR ( Amer) 7 Est GFR (Non-Af Amer) 6 POC Glucose (mg/dL) 215 H (65-110) mg/dL Random Glucose 183 H (75-110) mg/dL Lactic Acid (0.7-2.1) mmol/L Calcium 13.4 H* (8.6-10.4) mg/dl Phosphorus 6.3 H (2.5-4.5) mg/dL Magnesium 2.7 H (1.6-2.3) mg/dL Total Bilirubin 0.8 (0.2-1.3) mg/dL AST 57 (17-59) U/L ALT 71 (21-72) U/L Alkaline Phosphatase 211 H D (38-126) U/L Troponin I (0.00-0.120) ng/mL NT-Pro-B Natriuret Pep (0-900) pg/mL Total Protein 6.5 (6.3-8.3) g/dL Albumin 2.8 L D (3.5-5.0) g/dL Globulin 3.7 (2.2-3.9) gm/dL Albumin/Globulin Ratio 0.8 L (1.0-2.1) Arterial Blood Potassium (3.6-5.2) mmol/L Venous Blood Potassium (3.6-5.2) mmol/L Urine Color (YELLOW) Urine Clarity (Clear) Urine pH (5.0-8.0) Ur Specific [place] (1.003-1.030) Urine Protein (NEGATIVE) mg/dL Urine Glucose (UA) (Normal) mg/dL Urine Ketones (NEGATIVE) mg/dL Urine Blood (NEGATIVE) Urine Nitrate (NEGATIVE) Urine Bilirubin (NEGATIVE) Urine Urobilinogen (0.2-1.0) mg/dL Ur Leukocyte Esterase (Negative) Shazia/uL Urine WBC (Auto) (0-5) /hpf Urine RBC (Auto) (0-3) /hpf Urine WBC Clumps (Auto) (NONE) /hpf Urine Bacteria (<OCC) Hep Bs Antigen Negative (NEGATIVE) Hep Bs Antibody (NEGATIVE) Hep B Core IgM Ab Negative (NEGATIVE) Hepatitis C Antibody Negative (NEGATIVE) 03/14/18 03/14/18 03/14/18 Range/Units 18:41 18:05 17:51 WBC (4.8-10.8) K/uL RBC (4.40-5.90) Mil/uL Hgb (12.0-18.0) g/dL Hct (35.0-51.0) % MCV (80.0-94.0) fL MCH (27.0-31.0) pg MCHC (33.0-37.0) g/dL RDW (11.5-14.5) % Plt Count (130-400) K/uL MPV (7.2-11.7) fL Neut % (Auto) (50.0-75.0) % Lymph % (Auto) (20.0-40.0) % [place] % (Auto) (0.0-10.0) % Eos % (Auto) (0.0-4.0) % Baso % (Auto) (0.0-2.0) % Neut # (Auto) (1.8-7.0) K/uL Lymph # (Auto) (1.0-4.3) K/uL [place] # (Auto) (0.0-0.8) K/uL Eos # (Auto) (0.0-0.7) K/uL Baso # (Auto) (0.0-0.2) K/uL Neutrophils % (Manual) (50-75) % Band Neutrophils % (0-2) % Lymphocytes % (Manual) (20-40) % Monocytes % (Manual) (0-10) % Metamyelocytes % (0-0) % Platelet Estimate (NORMAL) Plt Clumps, EDTA Anisocytosis (manual) PT (9.7-12.2) SECONDS INR APTT (21-34) SECONDS Puncture Site pCO2 (35-45) mm/Hg pO2 (30-55) mm/Hg HCO3 (21-28) mmol/L ABG pH (7.35-7.45) ABG Total CO2 (22-28) mmol/L ABG O2 Saturation (95-98) % ABG Base Excess (-2.0-3.0) mmol/L Lionel Test ABG Potassium (3.6-5.2) mmol/L VBG pH (7.32-7.43) VBG pCO2 (40-60) mmHg VBG HCO3 mmol/L VBG Total CO2 (22-28) mmol/L VBG O2 Sat (Calc) (40-65) % VBG Base Excess (0.0-2.0) mmol/L VBG Potassium (3.6-5.2) mmol/L Glucose (75-110) mg/dl Lactate (0.7-2.1) mmol/L Crit Value Called To Crit Value Called By Crit Value Read Back Blood Gas Notified Time Sodium (132-148) mmol/L Potassium (3.6-5.2) mmol/L Chloride (98-107) mmol/L Carbon Dioxide (22-30) mmol/L Anion Gap (10-20) BUN (9-20) mg/dL Creatinine (0.8-1.5) mg/dL Est GFR ( Amer) Est GFR (Non-Af Amer) POC Glucose (mg/dL) 249 H 339 H (65-110) mg/dL Random Glucose (75-110) mg/dL Lactic Acid (0.7-2.1) mmol/L Calcium (8.6-10.4) mg/dl Phosphorus (2.5-4.5) mg/dL Magnesium (1.6-2.3) mg/dL Total Bilirubin (0.2-1.3) mg/dL AST (17-59) U/L ALT (21-72) U/L Alkaline Phosphatase (38-126) U/L Troponin I (0.00-0.120) ng/mL NT-Pro-B Natriuret Pep (0-900) pg/mL Total Protein (6.3-8.3) g/dL Albumin (3.5-5.0) g/dL Globulin (2.2-3.9) gm/dL Albumin/Globulin Ratio (1.0-2.1) Arterial Blood Potassium (3.6-5.2) mmol/L Venous Blood Potassium (3.6-5.2) mmol/L Urine Color Yellow (YELLOW) Urine Clarity Turbid (Clear) Urine pH 5.0 (5.0-8.0) Ur Specific [place] 1.014 (1.003-1.030) Urine Protein 2+ H (NEGATIVE) mg/dL Urine Glucose (UA) 1+ H (Normal) mg/dL Urine Ketones Negative (NEGATIVE) mg/dL Urine Blood 3+ H (NEGATIVE) Urine Nitrate Negative (NEGATIVE) Urine Bilirubin Negative (NEGATIVE) Urine Urobilinogen Normal (0.2-1.0) mg/dL Ur Leukocyte Esterase 2+ H (Negative) Shazia/uL Urine WBC (Auto) 12130 H (0-5) /hpf Urine RBC (Auto) 207 H (0-3) /hpf Urine WBC Clumps (Auto) Many H (NONE) /hpf Urine Bacteria Many H (<OCC) Hep Bs Antigen (NEGATIVE) Hep Bs Antibody (NEGATIVE) Hep B Core IgM Ab (NEGATIVE) Hepatitis C Antibody (NEGATIVE) 03/14/18 03/14/18 03/14/18 Range/Units 16:36 16:01 15:49 WBC (4.8-10.8) K/uL RBC (4.40-5.90) Mil/uL Hgb (12.0-18.0) g/dL Hct (35.0-51.0) % MCV (80.0-94.0) fL MCH (27.0-31.0) pg MCHC (33.0-37.0) g/dL RDW (11.5-14.5) % Plt Count (130-400) K/uL MPV (7.2-11.7) fL Neut % (Auto) (50.0-75.0) % Lymph % (Auto) (20.0-40.0) % [place] % (Auto) (0.0-10.0) % Eos % (Auto) (0.0-4.0) % Baso % (Auto) (0.0-2.0) % Neut # (Auto) (1.8-7.0) K/uL Lymph # (Auto) (1.0-4.3) K/uL [place] # (Auto) (0.0-0.8) K/uL Eos # (Auto) (0.0-0.7) K/uL Baso # (Auto) (0.0-0.2) K/uL Neutrophils % (Manual) (50-75) % Band Neutrophils % (0-2) % Lymphocytes % (Manual) (20-40) % Monocytes % (Manual) (0-10) % Metamyelocytes % (0-0) % Platelet Estimate (NORMAL) Plt Clumps, EDTA Anisocytosis (manual) PT (9.7-12.2) SECONDS INR APTT (21-34) SECONDS Puncture Site Rba pCO2 20 L (35-45) mm/Hg pO2 227 H 22 L (30-55) mm/Hg HCO3 15.1 L (21-28) mmol/L ABG pH 7.34 L (7.35-7.45) ABG Total CO2 11.4 L (22-28) mmol/L ABG O2 Saturation 98.7 H (95-98) % ABG Base Excess -12.7 L (-2.0-3.0) mmol/L Lionel Test Na ABG Potassium 6.3 H* (3.6-5.2) mmol/L VBG pH 7.02 L* (7.32-7.43) VBG pCO2 43 (40-60) mmHg VBG HCO3 7.6 mmol/L VBG Total CO2 12.4 L (22-28) mmol/L VBG O2 Sat (Calc) 33.4 L (40-65) % VBG Base Excess -19.4 L (0.0-2.0) mmol/L VBG Potassium 10.6 H* (3.6-5.2) mmol/L Glucose 272 H 427 H* D (75-110) mg/dl Lactate 3.5 H 7.7 H* (0.7-2.1) mmol/L Crit Value Called To yasmeen Morgan do Crit Value Called By Catrina Fritz Crit Value Read Back Y Y Blood Gas Notified Time 1643 1607 Sodium 147.0 140.0 144 (132-148) mmol/L Potassium 10.1 H* D (3.6-5.2) mmol/L Chloride 124.0 H 108.0 H 103 (98-107) mmol/L Carbon Dioxide 9 L* D (22-30) mmol/L Anion Gap 42 H (10-20) BUN 128 H* D (9-20) mg/dL Creatinine 12.4 H* D (0.8-1.5) mg/dL Est GFR ( Amer) 5 Est GFR (Non-Af Amer) 4 POC Glucose (mg/dL) (65-110) mg/dL Random Glucose 439 H* D (75-110) mg/dL Lactic Acid (0.7-2.1) mmol/L Calcium 12.7 H (8.6-10.4) mg/dl Phosphorus 11.5 H (2.5-4.5) mg/dL Magnesium 3.7 H (1.6-2.3) mg/dL Total Bilirubin 0.8 (0.2-1.3) mg/dL AST 42 (17-59) U/L ALT 28 (21-72) U/L Alkaline Phosphatase 301 H D (38-126) U/L Troponin I 0.1140 (0.00-0.120) ng/mL NT-Pro-B Natriuret Pep 47275 H (0-900) pg/mL Total Protein 9.6 H (6.3-8.3) g/dL Albumin 4.4 (3.5-5.0) g/dL Globulin 5.3 H (2.2-3.9) gm/dL Albumin/Globulin Ratio 0.8 L (1.0-2.1) Arterial Blood Potassium 6.3 H* (3.6-5.2) mmol/L Venous Blood Potassium 10.6 H* (3.6-5.2) mmol/L Urine Color (YELLOW) Urine Clarity (Clear) Urine pH (5.0-8.0) Ur Specific [place] (1.003-1.030) Urine Protein (NEGATIVE) mg/dL Urine Glucose (UA) (Normal) mg/dL Urine Ketones (NEGATIVE) mg/dL Urine Blood (NEGATIVE) Urine Nitrate (NEGATIVE) Urine Bilirubin (NEGATIVE) Urine Urobilinogen (0.2-1.0) mg/dL Ur Leukocyte Esterase (Negative) Shazia/uL Urine WBC (Auto) (0-5) /hpf Urine RBC (Auto) (0-3) /hpf Urine WBC Clumps (Auto) (NONE) /hpf Urine Bacteria (<OCC) Hep Bs Antigen (NEGATIVE) Hep Bs Antibody (NEGATIVE) Hep B Core IgM Ab (NEGATIVE) Hepatitis C Antibody (NEGATIVE) 03/14/18 03/14/18 03/14/18 Range/Units 15:49 15:49 15:43 WBC 12.5 H D (4.8-10.8) K/uL RBC 4.02 L (4.40-5.90) Mil/uL Hgb 11.4 L D (12.0-18.0) g/dL Hct 37.2 (35.0-51.0) % MCV 92.5 D (80.0-94.0) fL MCH 28.5 (27.0-31.0) pg MCHC 30.8 L (33.0-37.0) g/dL RDW 17.7 H (11.5-14.5) % Plt Count 421 H D (130-400) K/uL MPV 7.2 (7.2-11.7) fL Neut % (Auto) 85.3 H (50.0-75.0) % Lymph % (Auto) 8.4 L (20.0-40.0) % [place] % (Auto) 5.9 (0.0-10.0) % Eos % (Auto) 0.1 (0.0-4.0) % Baso % (Auto) 0.3 (0.0-2.0) % Neut # (Auto) 10.6 H (1.8-7.0) K/uL Lymph # (Auto) 1.0 (1.0-4.3) K/uL [place] # (Auto) 0.7 (0.0-0.8) K/uL Eos # (Auto) 0.0 (0.0-0.7) K/uL Baso # (Auto) 0.0 (0.0-0.2) K/uL Neutrophils % (Manual) 81 H (50-75) % Band Neutrophils % 4 H (0-2) % Lymphocytes % (Manual) 10 L (20-40) % Monocytes % (Manual) 5 (0-10) % Metamyelocytes % (0-0) % Platelet Estimate Slightly increased H (NORMAL) Plt Clumps, EDTA Anisocytosis (manual) Slight PT 13.4 H (9.7-12.2) SECONDS INR 1.2 APTT 21 (21-34) SECONDS Puncture Site pCO2 (35-45) mm/Hg pO2 (30-55) mm/Hg HCO3 (21-28) mmol/L ABG pH (7.35-7.45) ABG Total CO2 (22-28) mmol/L ABG O2 Saturation (95-98) % ABG Base Excess (-2.0-3.0) mmol/L Lionel Test ABG Potassium (3.6-5.2) mmol/L VBG pH (7.32-7.43) VBG pCO2 (40-60) mmHg VBG HCO3 mmol/L VBG Total CO2 (22-28) mmol/L VBG O2 Sat (Calc) (40-65) % VBG Base Excess (0.0-2.0) mmol/L VBG Potassium (3.6-5.2) mmol/L Glucose (75-110) mg/dl Lactate (0.7-2.1) mmol/L Crit Value Called To Crit Value Called By Crit Value Read Back Blood Gas Notified Time Sodium (132-148) mmol/L Potassium (3.6-5.2) mmol/L Chloride (98-107) mmol/L Carbon Dioxide (22-30) mmol/L Anion Gap (10-20) BUN (9-20) mg/dL Creatinine (0.8-1.5) mg/dL Est GFR ( Amer) Est GFR (Non-Af Amer) POC Glucose (mg/dL) 397 H (65-110) mg/dL Random Glucose (75-110) mg/dL Lactic Acid (0.7-2.1) mmol/L Calcium (8.6-10.4) mg/dl Phosphorus (2.5-4.5) mg/dL Magnesium (1.6-2.3) mg/dL Total Bilirubin (0.2-1.3) mg/dL AST (17-59) U/L ALT (21-72) U/L Alkaline Phosphatase (38-126) U/L Troponin I (0.00-0.120) ng/mL NT-Pro-B Natriuret Pep (0-900) pg/mL Total Protein (6.3-8.3) g/dL Albumin (3.5-5.0) g/dL Globulin (2.2-3.9) gm/dL Albumin/Globulin Ratio (1.0-2.1) Arterial Blood Potassium (3.6-5.2) mmol/L Venous Blood Potassium (3.6-5.2) mmol/L Urine Color (YELLOW) Urine Clarity (Clear) Urine pH (5.0-8.0) Ur Specific [place] (1.003-1.030) Urine Protein (NEGATIVE) mg/dL Urine Glucose (UA) (Normal) mg/dL Urine Ketones (NEGATIVE) mg/dL Urine Blood (NEGATIVE) Urine Nitrate (NEGATIVE) Urine Bilirubin (NEGATIVE) Urine Urobilinogen (0.2-1.0) mg/dL Ur Leukocyte Esterase (Negative) Shazia/uL Urine WBC (Auto) (0-5) /hpf Urine RBC (Auto) (0-3) /hpf Urine WBC Clumps (Auto) (NONE) /hpf Urine Bacteria (<OCC) Hep Bs Antigen (NEGATIVE) Hep Bs Antibody (NEGATIVE) Hep B Core IgM Ab (NEGATIVE) Hepatitis C Antibody (NEGATIVE) Laboratory Results - last 24 hr 03/14/18 03/14/18 03/14/18 15:43 15:49 15:49 WBC 12.5 H D RBC 4.02 L Hgb 11.4 L D Hct 37.2 MCV 92.5 D MCH 28.5 MCHC 30.8 L RDW 17.7 H Plt Count 421 H D MPV 7.2 Neut % (Auto) 85.3 H Lymph % (Auto) 8.4 L [place] % (Auto) 5.9 Eos % (Auto) 0.1 Baso % (Auto) 0.3 Neut # (Auto) 10.6 H Lymph # (Auto) 1.0 [place] # (Auto) 0.7 Eos # (Auto) 0.0 Baso # (Auto) 0.0 Neutrophils % (Manual) 81 H Band Neutrophils % 4 H Lymphocytes % (Manual) 10 L Monocytes % (Manual) 5 Metamyelocytes % Platelet Estimate Slightly increased H Plt Clumps, EDTA Anisocytosis (manual) Slight PT 13.4 H INR 1.2 APTT 21 Puncture Site pCO2 pO2 HCO3 ABG pH ABG Total CO2 ABG O2 Saturation ABG Base Excess Lionel Test ABG Potassium VBG pH VBG pCO2 VBG HCO3 VBG Total CO2 VBG O2 Sat (Calc) VBG Base Excess VBG Potassium Glucose Lactate Crit Value Called To Crit Value Called By Crit Value Read Back Blood Gas Notified Time Sodium Potassium Chloride Carbon Dioxide Anion Gap BUN Creatinine Est GFR ( Amer) Est GFR (Non-Af Amer) POC Glucose (mg/dL) 397 H Random Glucose Lactic Acid Calcium Phosphorus Magnesium Total Bilirubin AST ALT Alkaline Phosphatase Troponin I NT-Pro-B Natriuret Pep Total Protein Albumin Globulin Albumin/Globulin Ratio Arterial Blood Potassium Venous Blood Potassium Urine Color Urine Clarity Urine pH Ur Specific [place] Urine Protein Urine Glucose (UA) Urine Ketones Urine Blood Urine Nitrate Urine Bilirubin Urine Urobilinogen Ur Leukocyte Esterase Urine WBC (Auto) Urine RBC (Auto) Urine WBC Clumps (Auto) Urine Bacteria Hep Bs Antigen Hep Bs Antibody Hep B Core IgM Ab Hepatitis C Antibody 03/14/18 03/14/18 03/14/18 15:49 16:01 16:36 WBC RBC Hgb Hct MCV MCH MCHC RDW Plt Count MPV Neut % (Auto) Lymph % (Auto) [place] % (Auto) Eos % (Auto) Baso % (Auto) Neut # (Auto) Lymph # (Auto) [place] # (Auto) Eos # (Auto) Baso # (Auto) Neutrophils % (Manual) Band Neutrophils % Lymphocytes % (Manual) Monocytes % (Manual) Metamyelocytes % Platelet Estimate Plt Clumps, EDTA Anisocytosis (manual) PT INR APTT Puncture Site Rba pCO2 20 L pO2 22 L 227 H HCO3 15.1 L ABG pH 7.34 L ABG Total CO2 11.4 L ABG O2 Saturation 98.7 H ABG Base Excess -12.7 L Lionel Test Na ABG Potassium 6.3 H* VBG pH 7.02 L* VBG pCO2 43 VBG HCO3 7.6 VBG Total CO2 12.4 L VBG O2 Sat (Calc) 33.4 L VBG Base Excess -19.4 L VBG Potassium 10.6 H* Glucose 427 H* D 272 H Lactate 7.7 H* 3.5 H Crit Value Called To do Eddie Morgan m Crit Value Called By Catrina Fritz Crit Value Read Back Y Y Blood Gas Notified Time 1607 1643 Sodium 144 140.0 147.0 Potassium 10.1 H* D Chloride 103 108.0 H 124.0 H Carbon Dioxide 9 L* D Anion Gap 42 H BUN 128 H* D Creatinine 12.4 H* D Est GFR ( Amer) 5 Est GFR (Non-Af Amer) 4 POC Glucose (mg/dL) Random Glucose 439 H* D Lactic Acid Calcium 12.7 H Phosphorus 11.5 H Magnesium 3.7 H Total Bilirubin 0.8 AST 42 ALT 28 Alkaline Phosphatase 301 H D Troponin I 0.1140 NT-Pro-B Natriuret Pep 74024 H Total Protein 9.6 H Albumin 4.4 Globulin 5.3 H Albumin/Globulin Ratio 0.8 L Arterial Blood Potassium 6.3 H* Venous Blood Potassium 10.6 H* Urine Color Urine Clarity Urine pH Ur Specific [place] Urine Protein Urine Glucose (UA) Urine Ketones Urine Blood Urine Nitrate Urine Bilirubin Urine Urobilinogen Ur Leukocyte Esterase Urine WBC (Auto) Urine RBC (Auto) Urine WBC Clumps (Auto) Urine Bacteria Hep Bs Antigen Hep Bs Antibody Hep B Core IgM Ab Hepatitis C Antibody 03/14/18 03/14/18 03/14/18 17:51 18:05 18:41 WBC RBC Hgb Hct MCV MCH MCHC RDW Plt Count MPV Neut % (Auto) Lymph % (Auto) [place] % (Auto) Eos % (Auto) Baso % (Auto) Neut # (Auto) Lymph # (Auto) [place] # (Auto) Eos # (Auto) Baso # (Auto) Neutrophils % (Manual) Band Neutrophils % Lymphocytes % (Manual) Monocytes % (Manual) Metamyelocytes % Platelet Estimate Plt Clumps, EDTA Anisocytosis (manual) PT INR APTT Puncture Site pCO2 pO2 HCO3 ABG pH ABG Total CO2 ABG O2 Saturation ABG Base Excess Lionel Test ABG Potassium VBG pH VBG pCO2 VBG HCO3 VBG Total CO2 VBG O2 Sat (Calc) VBG Base Excess VBG Potassium Glucose Lactate Crit Value Called To Crit Value Called By Crit Value Read Back Blood Gas Notified Time Sodium Potassium Chloride Carbon Dioxide Anion Gap BUN Creatinine Est GFR ( Amer) Est GFR (Non-Af Amer) POC Glucose (mg/dL) 339 H 249 H Random Glucose Lactic Acid Calcium Phosphorus Magnesium Total Bilirubin AST ALT Alkaline Phosphatase Troponin I NT-Pro-B Natriuret Pep Total Protein Albumin Globulin Albumin/Globulin Ratio Arterial Blood Potassium Venous Blood Potassium Urine Color Yellow Urine Clarity Turbid Urine pH 5.0 Ur Specific [place] 1.014 Urine Protein 2+ H Urine Glucose (UA) 1+ H Urine Ketones Negative Urine Blood 3+ H Urine Nitrate Negative Urine Bilirubin Negative Urine Urobilinogen Normal Ur Leukocyte Esterase 2+ H Urine WBC (Auto) 87952 H Urine RBC (Auto) 207 H Urine WBC Clumps (Auto) Many H Urine Bacteria Many H Hep Bs Antigen Hep Bs Antibody Hep B Core IgM Ab Hepatitis C Antibody 03/14/18 03/14/18 03/14/18 19:42 20:13 21:08 WBC RBC Hgb Hct MCV MCH MCHC RDW Plt Count MPV Neut % (Auto) Lymph % (Auto) [place] % (Auto) Eos % (Auto) Baso % (Auto) Neut # (Auto) Lymph # (Auto) [place] # (Auto) Eos # (Auto) Baso # (Auto) Neutrophils % (Manual) Band Neutrophils % Lymphocytes % (Manual) Monocytes % (Manual) Metamyelocytes % Platelet Estimate Plt Clumps, EDTA Anisocytosis (manual) PT INR APTT Puncture Site pCO2 pO2 HCO3 ABG pH ABG Total CO2 ABG O2 Saturation ABG Base Excess Lionel Test ABG Potassium VBG pH VBG pCO2 VBG HCO3 VBG Total CO2 VBG O2 Sat (Calc) VBG Base Excess VBG Potassium Glucose Lactate Crit Value Called To Crit Value Called By Crit Value Read Back Blood Gas Notified Time Sodium 152 H Potassium 7.9 H* D Chloride 116 H Carbon Dioxide 18 L Anion Gap 26 H BUN 113 H* Creatinine 9.2 H* D Est GFR ( Amer) 7 Est GFR (Non-Af Amer) 6 POC Glucose (mg/dL) 215 H Random Glucose 183 H Lactic Acid Calcium 13.4 H* Phosphorus 6.3 H Magnesium 2.7 H Total Bilirubin 0.8 AST 57 ALT 71 Alkaline Phosphatase 211 H D Troponin I NT-Pro-B Natriuret Pep Total Protein 6.5 Albumin 2.8 L D Globulin 3.7 Albumin/Globulin Ratio 0.8 L Arterial Blood Potassium Venous Blood Potassium Urine Color Urine Clarity Urine pH Ur Specific [place] Urine Protein Urine Glucose (UA) Urine Ketones Urine Blood Urine Nitrate Urine Bilirubin Urine Urobilinogen Ur Leukocyte Esterase Urine WBC (Auto) Urine RBC (Auto) Urine WBC Clumps (Auto) Urine Bacteria Hep Bs Antigen Negative Hep Bs Antibody Hep B Core IgM Ab Negative Hepatitis C Antibody Negative 03/14/18 03/14/18 03/14/18 21:08 21:08 21:10 WBC 12.6 H RBC 3.15 L Hgb 9.1 L D Hct 28.3 L MCV 90.0 D MCH 28.8 MCHC 32.0 L RDW 17.2 H Plt Count 286 D MPV 6.9 L Neut % (Auto) 84.3 H Lymph % (Auto) 8.6 L [place] % (Auto) 6.7 Eos % (Auto) 0.1 Baso % (Auto) 0.3 Neut # (Auto) 10.6 H Lymph # (Auto) 1.1 [place] # (Auto) 0.8 Eos # (Auto) 0.0 Baso # (Auto) 0.0 Neutrophils % (Manual) 62 Band Neutrophils % 26 H* Lymphocytes % (Manual) 7 L Monocytes % (Manual) 3 Metamyelocytes % 2 H Platelet Estimate Normal Plt Clumps, EDTA Present Anisocytosis (manual) Slight PT INR APTT Puncture Site pCO2 pO2 HCO3 ABG pH ABG Total CO2 ABG O2 Saturation ABG Base Excess Lionel Test ABG Potassium VBG pH VBG pCO2 VBG HCO3 VBG Total CO2 VBG O2 Sat (Calc) VBG Base Excess VBG Potassium Glucose Lactate Crit Value Called To Crit Value Called By Crit Value Read Back Blood Gas Notified Time Sodium Potassium Chloride Carbon Dioxide Anion Gap BUN Creatinine Est GFR ( Amer) Est GFR (Non-Af Amer) POC Glucose (mg/dL) Random Glucose Lactic Acid 4.1 H* Calcium Phosphorus Magnesium Total Bilirubin AST ALT Alkaline Phosphatase Troponin I NT-Pro-B Natriuret Pep Total Protein Albumin Globulin Albumin/Globulin Ratio Arterial Blood Potassium Venous Blood Potassium Urine Color Urine Clarity Urine pH Ur Specific [place] Urine Protein Urine Glucose (UA) Urine Ketones Urine Blood Urine Nitrate Urine Bilirubin Urine Urobilinogen Ur Leukocyte Esterase Urine WBC (Auto) Urine RBC (Auto) Urine WBC Clumps (Auto) Urine Bacteria Hep Bs Antigen Hep Bs Antibody Negative Hep B Core IgM Ab Hepatitis C Antibody 03/15/18 03/15/18 03/15/18 00:42 04:16 04:31 WBC 11.0 H RBC 2.85 L Hgb 8.2 L Hct 25.2 L MCV 88.5 MCH 28.8 MCHC 32.5 L RDW 16.8 H Plt Count 233 MPV 6.8 L Neut % (Auto) 82.2 H Lymph % (Auto) 9.7 L [place] % (Auto) 7.0 Eos % (Auto) 0.4 Baso % (Auto) 0.7 Neut # (Auto) 9.0 H Lymph # (Auto) 1.1 [place] # (Auto) 0.8 Eos # (Auto) 0.0 Baso # (Auto) 0.1 Neutrophils % (Manual) 62 Band Neutrophils % 22 H* Lymphocytes % (Manual) 11 L Monocytes % (Manual) 5 Metamyelocytes % Platelet Estimate Plt Clumps, EDTA Anisocytosis (manual) PT INR APTT Puncture Site pCO2 pO2 HCO3 ABG pH ABG Total CO2 ABG O2 Saturation ABG Base Excess Lionel Test ABG Potassium VBG pH VBG pCO2 VBG HCO3 VBG Total CO2 VBG O2 Sat (Calc) VBG Base Excess VBG Potassium Glucose Lactate Crit Value Called To Crit Value Called By Crit Value Read Back Blood Gas Notified Time Sodium Potassium Chloride Carbon Dioxide Anion Gap BUN Creatinine Est GFR ( Amer) Est GFR (Non-Af Amer) POC Glucose (mg/dL) 116 H 101 Random Glucose Lactic Acid Calcium Phosphorus Magnesium Total Bilirubin AST ALT Alkaline Phosphatase Troponin I NT-Pro-B Natriuret Pep Total Protein Albumin Globulin Albumin/Globulin Ratio Arterial Blood Potassium Venous Blood Potassium Urine Color Urine Clarity Urine pH Ur Specific [place] Urine Protein Urine Glucose (UA) Urine Ketones Urine Blood Urine Nitrate Urine Bilirubin Urine Urobilinogen Ur Leukocyte Esterase Urine WBC (Auto) Urine RBC (Auto) Urine WBC Clumps (Auto) Urine Bacteria Hep Bs Antigen Hep Bs Antibody Hep B Core IgM Ab Hepatitis C Antibody 03/15/18 03/15/18 03/15/18 04:31 04:31 07:26 WBC RBC Hgb Hct MCV MCH MCHC RDW Plt Count MPV Neut % (Auto) Lymph % (Auto) [place] % (Auto) Eos % (Auto) Baso % (Auto) Neut # (Auto) Lymph # (Auto) [place] # (Auto) Eos # (Auto) Baso # (Auto) Neutrophils % (Manual) Band Neutrophils % Lymphocytes % (Manual) Monocytes % (Manual) Metamyelocytes % Platelet Estimate Plt Clumps, EDTA Anisocytosis (manual) PT INR APTT Puncture Site pCO2 pO2 HCO3 ABG pH ABG Total CO2 ABG O2 Saturation ABG Base Excess Lionel Test ABG Potassium VBG pH VBG pCO2 VBG HCO3 VBG Total CO2 VBG O2 Sat (Calc) VBG Base Excess VBG Potassium Glucose Lactate Crit Value Called To Crit Value Called By Crit Value Read Back Blood Gas Notified Time Sodium 147 Potassium 5.6 H Chloride 114 H Carbon Dioxide 17 L Anion Gap 22 H BUN 83 H Creatinine 7.5 H* Est GFR ( Amer) 9 Est GFR (Non-Af Amer) 7 POC Glucose (mg/dL) 112 H Random Glucose 114 H Lactic Acid 1.8 Calcium 9.1 Phosphorus 4.1 Magnesium 2.4 H Total Bilirubin 0.9 AST 55 ALT 39 Alkaline Phosphatase 183 H Troponin I NT-Pro-B Natriuret Pep Total Protein 7.0 Albumin 3.2 L Globulin 3.8 Albumin/Globulin Ratio 0.8 L Arterial Blood Potassium Venous Blood Potassium Urine Color Urine Clarity Urine pH Ur Specific [place] Urine Protein Urine Glucose (UA) Urine Ketones Urine Blood Urine Nitrate Urine Bilirubin Urine Urobilinogen Ur Leukocyte Esterase Urine WBC (Auto) Urine RBC (Auto) Urine WBC Clumps (Auto) Urine Bacteria Hep Bs Antigen Hep Bs Antibody Hep B Core IgM Ab Hepatitis C Antibody EKG/Cardiology Studies: Cardiology / EKG Studies 03/14/18 15:26 ELECTROCARDIOGRAM Stat Comment: Mode Of Transportation: Reason For Exam: Sepsis Patient 03/14/18 15:42 ELECTROCARDIOGRAM Stat Comment: Mode Of Transportation: Reason For Exam: Sepsis Patient Fingerstick Blood Sugar Results: 112 Review of Systems - Review of Systems Systems not reviewed;Unavailable: Acuity of Condition Critical Care Progress Note - Nutrition Nutrition: Nutrition Category Date Time Status NPO Diet [DIET] Diets 03/14/18 Breakfast Active Assessment/Plan - Assessment and Plan (Free Text) Assessment: This is a 72-year-old male with PMH obtained from previous records which include, but is not limited to: Anemia, Dementia, Atrial Fibrillation, CKD stage 4, CHF, Diabetes Mellitus, who was brought to the ED from [facility] for altered mental status. Full history could not be obtained at the time of the exam due to patient being minimally responsive. While in the ED: CODE SEPSIS was called 2/2 elevated lactic acid. Vascular Surgery was consulted (Dr. Ceron.) Patient was found to be hyperkalemic with positive EKG changes and was treated in ED. ICU team consulted for need for emergent dialysis. Please Note, ROS could not be obtained due to clinical condition. Patient ultimately underwent dialysis through left shil Renal: Stage 4 CKD; patient will likely need emergent dialysis Hyperkalemia, improved = 5.1 Metabolic acidosis (ABG) - CBC, CMP, Mg, Phos Acute Renal Failure - Nephrology consulted for emergent dialysis (Dr. Jean,) recommendations appreciated CV: - CXR obtained - EKG obtained Critical Limb Ischemia (left) - Heparin 25,000 Units @12units/kg/hr - Surgery consulted (Dr. Ceron) * Patient taken for embolectomy * Permacath placed on right subclavian Pulm: - No intubation at this time - 100% O2 via NC - Monitor GI/: - Colostomy bag on right in tact - NPO except meds - Tube Feedings with Glucerna - Monitor I&O - Protonix 40mg IVP daily Neuro: - Patient is able to be aroused but minimally responsive on exam - Monitor neuro checks ID: - Leukocytosis on admission - Lactate elevated; resolved (=1.4 on 03/15) - Continue Zosyn - Discontinue Vanco Patient seen and case discussed with Dr. Jarred Carrillo PGY1 <Elder Stern S - Last Filed: 03/15/18 18:55> CCU Subjective - Physician Review Critical Care Time Spent (in minutes): 45 CCU Objective - Vital Signs / Intake & Output Vital Signs (Last 4 hours): Vital Signs Temp Pulse Resp BP Pulse Ox 03/15/18 16:00 97.8 F 03/15/18 15:06 102 H 27 H 98/44 L 100 Intake and Output (Last 8hrs): Intake & Output 03/15/18 03/15/18 03/15/18 06:59 14:59 22:59 Intake Total 882 562 7783 Output Total 940 440 25 Balance 35 400 1300 Weight 110 lb 6.4 oz Intake: IV 900 Intake, IV Amount 975 800 100 RFA #22 350 Right Forearm 625 800 100 Tube Feeding 40 Blood Product 325 Output: Urine 90 165 25 Urethral ([place]end[place]) 90 165 25 Stool 850 275 - Medications Active Medications: Active Medications Generic Name Dose Route Start Last Admin Trade Name Freq PRN Reason Stop Dose Admin Albuterol/Ipratropium 3 ml 03/14/18 20:00 03/15/18 13:20 Duoneb 3 Mg/0.5 Mg (3 Ml) Ud INH 3 ml RQ6 NEL Administration Piperacillin Sod/Tazobactam 100 mls @ 200 mls/hr 03/15/18 02:00 03/15/18 10:36 Sod 2.25 gm/ Sodium Chloride IVPB 200 mls/hr Q8H NEL Administration Protocol Sodium Chloride 1,000 mls @ 100 mls/hr 03/15/18 00:15 03/15/18 00:30 Sodium Chloride 0.9% IV 100 mls/hr .Q10H NEL Administration Heparin Sodium/Sodium Chloride 25,000 units in 250 mls @ 6.009 mls/hr 03/15/18 14:23 Heparin 59707 Units/250ml 1/2 Normal Saline IV .Q24H PRN ADJUST RATE PER PROTOCOL Protocol 12 UNITS/KG/HR Insulin Human Regular 0 unit 03/14/18 20:36 03/15/18 13:05 Novolin R SC 1 units Q4 NEL Administration Protocol Pantoprazole Sodium 40 mg 03/15/18 10:00 03/15/18 10:36 Protonix Inj IVP 40 mg DAILY NEL Administration Pneumococcal Polyvalent Vaccine 0.5 ml 03/16/18 10:00 Pneumovax 23 Vaccine IM 03/16/18 10:01 .ONCE ONE - Patient Studies Lab Studies: Microbiology Studies 03/14/18 17:56 Blood Culture - Preliminary Blood NO GROWTH AFTER 24 HOURS 03/14/18 15:50 Blood Culture - Preliminary Blood NO GROWTH AFTER 24 HOURS 03/14/18 18:05 Urine Culture - Preliminary Urine,Catheterized Gram Negative J[place] Lab Studies 03/15/18 03/15/18 03/15/18 Range/Units 17:55 17:15 15:13 WBC (4.8-10.8) K/uL RBC (4.40-5.90) Mil/uL Hgb (12.0-18.0) g/dL Hct (35.0-51.0) % MCV (80.0-94.0) fL MCH (27.0-31.0) pg MCHC (33.0-37.0) g/dL RDW (11.5-14.5) % Plt Count (130-400) K/uL MPV (7.2-11.7) fL Neut % (Auto) (50.0-75.0) % Lymph % (Auto) (20.0-40.0) % [place] % (Auto) (0.0-10.0) % Eos % (Auto) (0.0-4.0) % Baso % (Auto) (0.0-2.0) % Neut # (Auto) (1.8-7.0) K/uL Lymph # (Auto) (1.0-4.3) K/uL [place] # (Auto) (0.0-0.8) K/uL Eos # (Auto) (0.0-0.7) K/uL Baso # (Auto) (0.0-0.2) K/uL Neutrophils % (Manual) (50-75) % Band Neutrophils % (0-2) % Lymphocytes % (Manual) (20-40) % Monocytes % (Manual) (0-10) % Metamyelocytes % (0-0) % Platelet Estimate (NORMAL) Plt Clumps, EDTA Anisocytosis (manual) Puncture Site Na pCO2 37 (35-45) mm/Hg pO2 413 H (80-100) mm/Hg HCO3 18.7 L (21-28) mmol/L ABG pH 7.29 L (7.35-7.45) ABG Total CO2 18.9 L (22-28) mmol/L ABG O2 Saturation 100.7 H (95-98) % ABG Base Excess -8.1 L (-2.0-3.0) mmol/L Lionel Test N ABG Potassium 5.1 (3.6-5.2) mmol/L Glucose 162 H (75-110) mg/dl Lactate 1.4 (0.7-2.1) mmol/L Sodium 146.0 (132-148) mmol/L Potassium (3.6-5.2) mmol/L Chloride 123.0 H (98-107) mmol/L Carbon Dioxide (22-30) mmol/L Anion Gap (10-20) BUN (9-20) mg/dL Creatinine (0.8-1.5) mg/dL Est GFR ( Amer) Est GFR (Non-Af Amer) POC Glucose (mg/dL) 158 H (65-110) mg/dL Random Glucose (75-110) mg/dL Lactic Acid (0.7-2.1) mmol/L Calcium (8.6-10.4) mg/dl Phosphorus (2.5-4.5) mg/dL Magnesium (1.6-2.3) mg/dL Total Bilirubin (0.2-1.3) mg/dL AST (17-59) U/L ALT (21-72) U/L Alkaline Phosphatase (38-126) U/L Total Protein (6.3-8.3) g/dL Albumin (3.5-5.0) g/dL Globulin (2.2-3.9) gm/dL Albumin/Globulin Ratio (1.0-2.1) Arterial Blood Potassium 5.1 (3.6-5.2) mmol/L C. difficile Ag & Toxin (NEGATIVE) Hep Bs Antigen (NEGATIVE) Hep Bs Antibody (NEGATIVE) Hep B Core IgM Ab (NEGATIVE) Hepatitis C Antibody (NEGATIVE) Blood Type O POSITIVE Antibody Screen Negative 03/15/18 03/15/18 03/15/18 Range/Units 11:19 07:26 06:00 WBC (4.8-10.8) K/uL RBC (4.40-5.90) Mil/uL Hgb (12.0-18.0) g/dL Hct (35.0-51.0) % MCV (80.0-94.0) fL MCH (27.0-31.0) pg MCHC (33.0-37.0) g/dL RDW (11.5-14.5) % Plt Count (130-400) K/uL MPV (7.2-11.7) fL Neut % (Auto) (50.0-75.0) % Lymph % (Auto) (20.0-40.0) % [place] % (Auto) (0.0-10.0) % Eos % (Auto) (0.0-4.0) % Baso % (Auto) (0.0-2.0) % Neut # (Auto) (1.8-7.0) K/uL Lymph # (Auto) (1.0-4.3) K/uL [place] # (Auto) (0.0-0.8) K/uL Eos # (Auto) (0.0-0.7) K/uL Baso # (Auto) (0.0-0.2) K/uL Neutrophils % (Manual) (50-75) % Band Neutrophils % (0-2) % Lymphocytes % (Manual) (20-40) % Monocytes % (Manual) (0-10) % Metamyelocytes % (0-0) % Platelet Estimate (NORMAL) Plt Clumps, EDTA Anisocytosis (manual) Puncture Site pCO2 (35-45) mm/Hg pO2 (80-100) mm/Hg HCO3 (21-28) mmol/L ABG pH (7.35-7.45) ABG Total CO2 (22-28) mmol/L ABG O2 Saturation (95-98) % ABG Base Excess (-2.0-3.0) mmol/L Lionel Test ABG Potassium (3.6-5.2) mmol/L Glucose (75-110) mg/dl Lactate (0.7-2.1) mmol/L Sodium (132-148) mmol/L Potassium (3.6-5.2) mmol/L Chloride (98-107) mmol/L Carbon Dioxide (22-30) mmol/L Anion Gap (10-20) BUN (9-20) mg/dL Creatinine (0.8-1.5) mg/dL Est GFR ( Amer) Est GFR (Non-Af Amer) POC Glucose (mg/dL) 157 H 112 H (65-110) mg/dL Random Glucose (75-110) mg/dL Lactic Acid (0.7-2.1) mmol/L Calcium (8.6-10.4) mg/dl Phosphorus (2.5-4.5) mg/dL Magnesium (1.6-2.3) mg/dL Total Bilirubin (0.2-1.3) mg/dL AST (17-59) U/L ALT (21-72) U/L Alkaline Phosphatase (38-126) U/L Total Protein (6.3-8.3) g/dL Albumin (3.5-5.0) g/dL Globulin (2.2-3.9) gm/dL Albumin/Globulin Ratio (1.0-2.1) Arterial Blood Potassium (3.6-5.2) mmol/L C. difficile Ag & Toxin Negative (NEGATIVE) Hep Bs Antigen (NEGATIVE) Hep Bs Antibody (NEGATIVE) Hep B Core IgM Ab (NEGATIVE) Hepatitis C Antibody (NEGATIVE) Blood Type Antibody Screen 03/15/18 03/15/18 03/15/18 Range/Units 04:31 04:31 04:31 WBC 11.0 H (4.8-10.8) K/uL RBC 2.85 L (4.40-5.90) Mil/uL Hgb 8.2 L (12.0-18.0) g/dL Hct 25.2 L (35.0-51.0) % MCV 88.5 (80.0-94.0) fL MCH 28.8 (27.0-31.0) pg MCHC 32.5 L (33.0-37.0) g/dL RDW 16.8 H (11.5-14.5) % Plt Count 233 (130-400) K/uL MPV 6.8 L (7.2-11.7) fL Neut % (Auto) 82.2 H (50.0-75.0) % Lymph % (Auto) 9.7 L (20.0-40.0) % [place] % (Auto) 7.0 (0.0-10.0) % Eos % (Auto) 0.4 (0.0-4.0) % Baso % (Auto) 0.7 (0.0-2.0) % Neut # (Auto) 9.0 H (1.8-7.0) K/uL Lymph # (Auto) 1.1 (1.0-4.3) K/uL [place] # (Auto) 0.8 (0.0-0.8) K/uL Eos # (Auto) 0.0 (0.0-0.7) K/uL Baso # (Auto) 0.1 (0.0-0.2) K/uL Neutrophils % (Manual) 62 (50-75) % Band Neutrophils % 22 H* (0-2) % Lymphocytes % (Manual) 11 L (20-40) % Monocytes % (Manual) 5 (0-10) % Metamyelocytes % (0-0) % Platelet Estimate (NORMAL) Plt Clumps, EDTA Anisocytosis (manual) Puncture Site pCO2 (35-45) mm/Hg pO2 (80-100) mm/Hg HCO3 (21-28) mmol/L ABG pH (7.35-7.45) ABG Total CO2 (22-28) mmol/L ABG O2 Saturation (95-98) % ABG Base Excess (-2.0-3.0) mmol/L Lionel Test ABG Potassium (3.6-5.2) mmol/L Glucose (75-110) mg/dl Lactate (0.7-2.1) mmol/L Sodium 147 (132-148) mmol/L Potassium 5.6 H (3.6-5.2) mmol/L Chloride 114 H (98-107) mmol/L Carbon Dioxide 17 L (22-30) mmol/L Anion Gap 22 H (10-20) BUN 83 H (9-20) mg/dL Creatinine 7.5 H* (0.8-1.5) mg/dL Est GFR ( Amer) 9 Est GFR (Non-Af Amer) 7 POC Glucose (mg/dL) (65-110) mg/dL Random Glucose 114 H (75-110) mg/dL Lactic Acid 1.8 (0.7-2.1) mmol/L Calcium 9.1 (8.6-10.4) mg/dl Phosphorus 4.1 (2.5-4.5) mg/dL Magnesium 2.4 H (1.6-2.3) mg/dL Total Bilirubin 0.9 (0.2-1.3) mg/dL AST 55 (17-59) U/L ALT 39 (21-72) U/L Alkaline Phosphatase 183 H (38-126) U/L Total Protein 7.0 (6.3-8.3) g/dL Albumin 3.2 L (3.5-5.0) g/dL Globulin 3.8 (2.2-3.9) gm/dL Albumin/Globulin Ratio 0.8 L (1.0-2.1) Arterial Blood Potassium (3.6-5.2) mmol/L C. difficile Ag & Toxin (NEGATIVE) Hep Bs Antigen (NEGATIVE) Hep Bs Antibody (NEGATIVE) Hep B Core IgM Ab (NEGATIVE) Hepatitis C Antibody (NEGATIVE) Blood Type Antibody Screen 03/15/18 03/15/18 03/14/18 Range/Units 04:16 00:42 21:10 WBC (4.8-10.8) K/uL RBC (4.40-5.90) Mil/uL Hgb (12.0-18.0) g/dL Hct (35.0-51.0) % MCV (80.0-94.0) fL MCH (27.0-31.0) pg MCHC (33.0-37.0) g/dL RDW (11.5-14.5) % Plt Count (130-400) K/uL MPV (7.2-11.7) fL Neut % (Auto) (50.0-75.0) % Lymph % (Auto) (20.0-40.0) % [place] % (Auto) (0.0-10.0) % Eos % (Auto) (0.0-4.0) % Baso % (Auto) (0.0-2.0) % Neut # (Auto) (1.8-7.0) K/uL Lymph # (Auto) (1.0-4.3) K/uL [place] # (Auto) (0.0-0.8) K/uL Eos # (Auto) (0.0-0.7) K/uL Baso # (Auto) (0.0-0.2) K/uL Neutrophils % (Manual) (50-75) % Band Neutrophils % (0-2) % Lymphocytes % (Manual) (20-40) % Monocytes % (Manual) (0-10) % Metamyelocytes % (0-0) % Platelet Estimate (NORMAL) Plt Clumps, EDTA Anisocytosis (manual) Puncture Site pCO2 (35-45) mm/Hg pO2 (80-100) mm/Hg HCO3 (21-28) mmol/L ABG pH (7.35-7.45) ABG Total CO2 (22-28) mmol/L ABG O2 Saturation (95-98) % ABG Base Excess (-2.0-3.0) mmol/L Lionel Test ABG Potassium (3.6-5.2) mmol/L Glucose (75-110) mg/dl Lactate (0.7-2.1) mmol/L Sodium (132-148) mmol/L Potassium (3.6-5.2) mmol/L Chloride (98-107) mmol/L Carbon Dioxide (22-30) mmol/L Anion Gap (10-20) BUN (9-20) mg/dL Creatinine (0.8-1.5) mg/dL Est GFR ( Amer) Est GFR (Non-Af Amer) POC Glucose (mg/dL) 101 116 H (65-110) mg/dL Random Glucose (75-110) mg/dL Lactic Acid 4.1 H* (0.7-2.1) mmol/L Calcium (8.6-10.4) mg/dl Phosphorus (2.5-4.5) mg/dL Magnesium (1.6-2.3) mg/dL Total Bilirubin (0.2-1.3) mg/dL AST (17-59) U/L ALT (21-72) U/L Alkaline Phosphatase (38-126) U/L Total Protein (6.3-8.3) g/dL Albumin (3.5-5.0) g/dL Globulin (2.2-3.9) gm/dL Albumin/Globulin Ratio (1.0-2.1) Arterial Blood Potassium (3.6-5.2) mmol/L C. difficile Ag & Toxin (NEGATIVE) Hep Bs Antigen (NEGATIVE) Hep Bs Antibody (NEGATIVE) Hep B Core IgM Ab (NEGATIVE) Hepatitis C Antibody (NEGATIVE) Blood Type Antibody Screen 03/14/18 03/14/18 03/14/18 Range/Units 21:08 21:08 21:08 WBC 12.6 H (4.8-10.8) K/uL RBC 3.15 L (4.40-5.90) Mil/uL Hgb 9.1 L D (12.0-18.0) g/dL Hct 28.3 L (35.0-51.0) % MCV 90.0 D (80.0-94.0) fL MCH 28.8 (27.0-31.0) pg MCHC 32.0 L (33.0-37.0) g/dL RDW 17.2 H (11.5-14.5) % Plt Count 286 D (130-400) K/uL MPV 6.9 L (7.2-11.7) fL Neut % (Auto) 84.3 H (50.0-75.0) % Lymph % (Auto) 8.6 L (20.0-40.0) % [place] % (Auto) 6.7 (0.0-10.0) % Eos % (Auto) 0.1 (0.0-4.0) % Baso % (Auto) 0.3 (0.0-2.0) % Neut # (Auto) 10.6 H (1.8-7.0) K/uL Lymph # (Auto) 1.1 (1.0-4.3) K/uL [place] # (Auto) 0.8 (0.0-0.8) K/uL Eos # (Auto) 0.0 (0.0-0.7) K/uL Baso # (Auto) 0.0 (0.0-0.2) K/uL Neutrophils % (Manual) 62 (50-75) % Band Neutrophils % 26 H* (0-2) % Lymphocytes % (Manual) 7 L (20-40) % Monocytes % (Manual) 3 (0-10) % Metamyelocytes % 2 H (0-0) % Platelet Estimate Normal (NORMAL) Plt Clumps, EDTA Present Anisocytosis (manual) Slight Puncture Site pCO2 (35-45) mm/Hg pO2 (80-100) mm/Hg HCO3 (21-28) mmol/L ABG pH (7.35-7.45) ABG Total CO2 (22-28) mmol/L ABG O2 Saturation (95-98) % ABG Base Excess (-2.0-3.0) mmol/L Lionel Test ABG Potassium (3.6-5.2) mmol/L Glucose (75-110) mg/dl Lactate (0.7-2.1) mmol/L Sodium (132-148) mmol/L Potassium (3.6-5.2) mmol/L Chloride (98-107) mmol/L Carbon Dioxide (22-30) mmol/L Anion Gap (10-20) BUN (9-20) mg/dL Creatinine (0.8-1.5) mg/dL Est GFR ( Amer) Est GFR (Non-Af Amer) POC Glucose (mg/dL) (65-110) mg/dL Random Glucose (75-110) mg/dL Lactic Acid (0.7-2.1) mmol/L Calcium (8.6-10.4) mg/dl Phosphorus (2.5-4.5) mg/dL Magnesium (1.6-2.3) mg/dL Total Bilirubin (0.2-1.3) mg/dL AST (17-59) U/L ALT (21-72) U/L Alkaline Phosphatase (38-126) U/L Total Protein (6.3-8.3) g/dL Albumin (3.5-5.0) g/dL Globulin (2.2-3.9) gm/dL Albumin/Globulin Ratio (1.0-2.1) Arterial Blood Potassium (3.6-5.2) mmol/L C. difficile Ag & Toxin (NEGATIVE) Hep Bs Antigen (NEGATIVE) Hep Bs Antibody Negative (NEGATIVE) Hep B Core IgM Ab Negative (NEGATIVE) Hepatitis C Antibody Negative (NEGATIVE) Blood Type Antibody Screen 03/14/18 03/14/18 Range/Units 20:13 19:42 WBC (4.8-10.8) K/uL RBC (4.40-5.90) Mil/uL Hgb (12.0-18.0) g/dL Hct (35.0-51.0) % MCV (80.0-94.0) fL MCH (27.0-31.0) pg MCHC (33.0-37.0) g/dL RDW (11.5-14.5) % Plt Count (130-400) K/uL MPV (7.2-11.7) fL Neut % (Auto) (50.0-75.0) % Lymph % (Auto) (20.0-40.0) % [place] % (Auto) (0.0-10.0) % Eos % (Auto) (0.0-4.0) % Baso % (Auto) (0.0-2.0) % Neut # (Auto) (1.8-7.0) K/uL Lymph # (Auto) (1.0-4.3) K/uL [place] # (Auto) (0.0-0.8) K/uL Eos # (Auto) (0.0-0.7) K/uL Baso # (Auto) (0.0-0.2) K/uL Neutrophils % (Manual) (50-75) % Band Neutrophils % (0-2) % Lymphocytes % (Manual) (20-40) % Monocytes % (Manual) (0-10) % Metamyelocytes % (0-0) % Platelet Estimate (NORMAL) Plt Clumps, EDTA Anisocytosis (manual) Puncture Site pCO2 (35-45) mm/Hg pO2 (80-100) mm/Hg HCO3 (21-28) mmol/L ABG pH (7.35-7.45) ABG Total CO2 (22-28) mmol/L ABG O2 Saturation (95-98) % ABG Base Excess (-2.0-3.0) mmol/L Lionel Test ABG Potassium (3.6-5.2) mmol/L Glucose (75-110) mg/dl Lactate (0.7-2.1) mmol/L Sodium 152 H (132-148) mmol/L Potassium 7.9 H* D (3.6-5.2) mmol/L Chloride 116 H (98-107) mmol/L Carbon Dioxide 18 L (22-30) mmol/L Anion Gap 26 H (10-20) BUN 113 H* (9-20) mg/dL Creatinine 9.2 H* D (0.8-1.5) mg/dL Est GFR ( Amer) 7 Est GFR (Non-Af Amer) 6 POC Glucose (mg/dL) 215 H (65-110) mg/dL Random Glucose 183 H (75-110) mg/dL Lactic Acid (0.7-2.1) mmol/L Calcium 13.4 H* (8.6-10.4) mg/dl Phosphorus 6.3 H (2.5-4.5) mg/dL Magnesium 2.7 H (1.6-2.3) mg/dL Total Bilirubin 0.8 (0.2-1.3) mg/dL AST 57 (17-59) U/L ALT 71 (21-72) U/L Alkaline Phosphatase 211 H D (38-126) U/L Total Protein 6.5 (6.3-8.3) g/dL Albumin 2.8 L D (3.5-5.0) g/dL Globulin 3.7 (2.2-3.9) gm/dL Albumin/Globulin Ratio 0.8 L (1.0-2.1) Arterial Blood Potassium (3.6-5.2) mmol/L C. difficile Ag & Toxin (NEGATIVE) Hep Bs Antigen Negative (NEGATIVE) Hep Bs Antibody (NEGATIVE) Hep B Core IgM Ab (NEGATIVE) Hepatitis C Antibody (NEGATIVE) Blood Type Antibody Screen Laboratory Results - last 24 hr 03/14/18 03/14/18 03/14/18 19:42 20:13 21:08 WBC RBC Hgb Hct MCV MCH MCHC RDW Plt Count MPV Neut % (Auto) Lymph % (Auto) [place] % (Auto) Eos % (Auto) Baso % (Auto) Neut # (Auto) Lymph # (Auto) [place] # (Auto) Eos # (Auto) Baso # (Auto) Neutrophils % (Manual) Band Neutrophils % Lymphocytes % (Manual) Monocytes % (Manual) Metamyelocytes % Platelet Estimate Plt Clumps, EDTA Anisocytosis (manual) Puncture Site pCO2 pO2 HCO3 ABG pH ABG Total CO2 ABG O2 Saturation ABG Base Excess Lionel Test ABG Potassium Glucose Lactate Sodium 152 H Potassium 7.9 H* D Chloride 116 H Carbon Dioxide 18 L Anion Gap 26 H BUN 113 H* Creatinine 9.2 H* D Est GFR ( Amer) 7 Est GFR (Non-Af Amer) 6 POC Glucose (mg/dL) 215 H Random Glucose 183 H Lactic Acid Calcium 13.4 H* Phosphorus 6.3 H Magnesium 2.7 H Total Bilirubin 0.8 AST 57 ALT 71 Alkaline Phosphatase 211 H D Total Protein 6.5 Albumin 2.8 L D Globulin 3.7 Albumin/Globulin Ratio 0.8 L Arterial Blood Potassium C. difficile Ag & Toxin Hep Bs Antigen Negative Hep Bs Antibody Hep B Core IgM Ab Negative Hepatitis C Antibody Negative Blood Type Antibody Screen 03/14/18 03/14/18 03/14/18 21:08 21:08 21:10 WBC 12.6 H RBC 3.15 L Hgb 9.1 L D Hct 28.3 L MCV 90.0 D MCH 28.8 MCHC 32.0 L RDW 17.2 H Plt Count 286 D MPV 6.9 L Neut % (Auto) 84.3 H Lymph % (Auto) 8.6 L [place] % (Auto) 6.7 Eos % (Auto) 0.1 Baso % (Auto) 0.3 Neut # (Auto) 10.6 H Lymph # (Auto) 1.1 [place] # (Auto) 0.8 Eos # (Auto) 0.0 Baso # (Auto) 0.0 Neutrophils % (Manual) 62 Band Neutrophils % 26 H* Lymphocytes % (Manual) 7 L Monocytes % (Manual) 3 Metamyelocytes % 2 H Platelet Estimate Normal Plt Clumps, EDTA Present Anisocytosis (manual) Slight Puncture Site pCO2 pO2 HCO3 ABG pH ABG Total CO2 ABG O2 Saturation ABG Base Excess Lionel Test ABG Potassium Glucose Lactate Sodium Potassium Chloride Carbon Dioxide Anion Gap BUN Creatinine Est GFR ( Amer) Est GFR (Non-Af Amer) POC Glucose (mg/dL) Random Glucose Lactic Acid 4.1 H* Calcium Phosphorus Magnesium Total Bilirubin AST ALT Alkaline Phosphatase Total Protein Albumin Globulin Albumin/Globulin Ratio Arterial Blood Potassium C. difficile Ag & Toxin Hep Bs Antigen Hep Bs Antibody Negative Hep B Core IgM Ab Hepatitis C Antibody Blood Type Antibody Screen 03/15/18 03/15/18 03/15/18 00:42 04:16 04:31 WBC 11.0 H RBC 2.85 L Hgb 8.2 L Hct 25.2 L MCV 88.5 MCH 28.8 MCHC 32.5 L RDW 16.8 H Plt Count 233 MPV 6.8 L Neut % (Auto) 82.2 H Lymph % (Auto) 9.7 L [place] % (Auto) 7.0 Eos % (Auto) 0.4 Baso % (Auto) 0.7 Neut # (Auto) 9.0 H Lymph # (Auto) 1.1 [place] # (Auto) 0.8 Eos # (Auto) 0.0 Baso # (Auto) 0.1 Neutrophils % (Manual) 62 Band Neutrophils % 22 H* Lymphocytes % (Manual) 11 L Monocytes % (Manual) 5 Metamyelocytes % Platelet Estimate Plt Clumps, EDTA Anisocytosis (manual) Puncture Site pCO2 pO2 HCO3 ABG pH ABG Total CO2 ABG O2 Saturation ABG Base Excess Lionel Test ABG Potassium Glucose Lactate Sodium Potassium Chloride Carbon Dioxide Anion Gap BUN Creatinine Est GFR ( Amer) Est GFR (Non-Af Amer) POC Glucose (mg/dL) 116 H 101 Random Glucose Lactic Acid Calcium Phosphorus Magnesium Total Bilirubin AST ALT Alkaline Phosphatase Total Protein Albumin Globulin Albumin/Globulin Ratio Arterial Blood Potassium C. difficile Ag & Toxin Hep Bs Antigen Hep Bs Antibody Hep B Core IgM Ab Hepatitis C Antibody Blood Type Antibody Screen 03/15/18 03/15/18 03/15/18 04:31 04:31 06:00 WBC RBC Hgb Hct MCV MCH MCHC RDW Plt Count MPV Neut % (Auto) Lymph % (Auto) [place] % (Auto) Eos % (Auto) Baso % (Auto) Neut # (Auto) Lymph # (Auto) [place] # (Auto) Eos # (Auto) Baso # (Auto) Neutrophils % (Manual) Band Neutrophils % Lymphocytes % (Manual) Monocytes % (Manual) Metamyelocytes % Platelet Estimate Plt Clumps, EDTA Anisocytosis (manual) Puncture Site pCO2 pO2 HCO3 ABG pH ABG Total CO2 ABG O2 Saturation ABG Base Excess Lionel Test ABG Potassium Glucose Lactate Sodium 147 Potassium 5.6 H Chloride 114 H Carbon Dioxide 17 L Anion Gap 22 H BUN 83 H Creatinine 7.5 H* Est GFR ( Amer) 9 Est GFR (Non-Af Amer) 7 POC Glucose (mg/dL) Random Glucose 114 H Lactic Acid 1.8 Calcium 9.1 Phosphorus 4.1 Magnesium 2.4 H Total Bilirubin 0.9 AST 55 ALT 39 Alkaline Phosphatase 183 H Total Protein 7.0 Albumin 3.2 L Globulin 3.8 Albumin/Globulin Ratio 0.8 L Arterial Blood Potassium C. difficile Ag & Toxin Negative Hep Bs Antigen Hep Bs Antibody Hep B Core IgM Ab Hepatitis C Antibody Blood Type Antibody Screen 03/15/18 03/15/18 03/15/18 07:26 11:19 15:13 WBC RBC Hgb Hct MCV MCH MCHC RDW Plt Count MPV Neut % (Auto) Lymph % (Auto) [place] % (Auto) Eos % (Auto) Baso % (Auto) Neut # (Auto) Lymph # (Auto) [place] # (Auto) Eos # (Auto) Baso # (Auto) Neutrophils % (Manual) Band Neutrophils % Lymphocytes % (Manual) Monocytes % (Manual) Metamyelocytes % Platelet Estimate Plt Clumps, EDTA Anisocytosis (manual) Puncture Site pCO2 pO2 HCO3 ABG pH ABG Total CO2 ABG O2 Saturation ABG Base Excess Lionel Test ABG Potassium Glucose Lactate Sodium Potassium Chloride Carbon Dioxide Anion Gap BUN Creatinine Est GFR ( Amer) Est GFR (Non-Af Amer) POC Glucose (mg/dL) 112 H 157 H Random Glucose Lactic Acid Calcium Phosphorus Magnesium Total Bilirubin AST ALT Alkaline Phosphatase Total Protein Albumin Globulin Albumin/Globulin Ratio Arterial Blood Potassium C. difficile Ag & Toxin Hep Bs Antigen Hep Bs Antibody Hep B Core IgM Ab Hepatitis C Antibody Blood Type O POSITIVE Antibody Screen Negative 03/15/18 03/15/18 17:15 17:55 WBC RBC Hgb Hct MCV MCH MCHC RDW Plt Count MPV Neut % (Auto) Lymph % (Auto) [place] % (Auto) Eos % (Auto) Baso % (Auto) Neut # (Auto) Lymph # (Auto) [place] # (Auto) Eos # (Auto) Baso # (Auto) Neutrophils % (Manual) Band Neutrophils % Lymphocytes % (Manual) Monocytes % (Manual) Metamyelocytes % Platelet Estimate Plt Clumps, EDTA Anisocytosis (manual) Puncture Site Na pCO2 37 pO2 413 H HCO3 18.7 L ABG pH 7.29 L ABG Total CO2 18.9 L ABG O2 Saturation 100.7 H ABG Base Excess -8.1 L Lionel Test N ABG Potassium 5.1 Glucose 162 H Lactate 1.4 Sodium 146.0 Potassium Chloride 123.0 H Carbon Dioxide Anion Gap BUN Creatinine Est GFR ( Amer) Est GFR (Non-Af Amer) POC Glucose (mg/dL) 158 H Random Glucose Lactic Acid Calcium Phosphorus Magnesium Total Bilirubin AST ALT Alkaline Phosphatase Total Protein Albumin Globulin Albumin/Globulin Ratio Arterial Blood Potassium 5.1 C. difficile Ag & Toxin Hep Bs Antigen Hep Bs Antibody Hep B Core IgM Ab Hepatitis C Antibody Blood Type Antibody Screen Critical Care Progress Note - Nutrition Nutrition: Nutrition Category Date Time Status NPO Diet [DIET] Diets 03/14/18 Breakfast Active Attending/Attestation - Attestation I have personally seen and examined this patient.: Yes I have fully participated in the care of the patient.: Yes I have reviewed all pertinent clinical information: Yes Notes (Text): 03/15/18 18:53 patient seen and examinedin the intensive care unit. Status post left femoral thrombectomy. left femoral venogram. left femoral arteriogram on ventilatory support Follow-up ABG Continue present treatment
--- NOTE | 2018-03-15 10:56 | CP.PCM.CON ---
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 Brought in from [place] for AMS. Found to have elevated k 10, emergently dialyzed last night for hyperkalemia Baseline creatinine unclear, but likely ckd 4 hx of cmp, EF 15-20% on recent echo. PMX: dementia, DM, BPH, CKD4 Psurg hx: s/p colostomy allergeis: NKDA Review of Systems - Review of Systems Systems not reviewed;Unavailable: Altered Mental Status Past Patient History - Infectious Disease Hx of Infectious Diseases: None - Tetanus Immunizations Tetanus Immunization: Unknown - Past Medical History & Family History Past Medical History?: Yes - Past Social History Smoking Status: Unknown If Ever Smoked - CARDIAC Hx Hypertension: Yes - PULMONARY Hx Respiratory Disorders: Yes - NEUROLOGICAL Hx Alzheimer's Disease: Yes Hx Dementia: Yes - HEENT Hx HEENT Problems: No - RENAL Hx Chronic Kidney Disease: Yes - ENDOCRINE/METABOLIC Hx Endocrine Disorders: Yes Hx Diabetes Mellitus Type 2: Yes - HEMATOLOGICAL/ONCOLOGICAL Hx Anemia: Yes - INTEGUMENTARY Hx Dermatological Problems: Yes Other/Comment: sacral wound, multiple wound/ ulcers - MUSCULOSKELETAL/RHEUMATOLOGICAL Hx Falls: No - GASTROINTESTINAL Hx Gastrointestinal Disorders: Yes Hx Colostomy: Yes (right side) Hx Gastroesophageal Reflux: Yes - GENITOURINARY/GYNECOLOGICAL Hx Genitourinary Disorders: Yes - PSYCHIATRIC Hx Anxiety: Yes Hx Schizophrenia: Yes Hx Substance Use: No - SURGICAL HISTORY Hx Surgeries: No - ANESTHESIA Hx Anesthesia: No Hx Anesthesia Reactions: No Meds Allergies/Adverse Reactions: Allergies Allergy/AdvReac Type Severity Reaction Status Date / Time No Known Allergies Allergy Verified 03/14/18 15:28 - Medications Medications: Current Medications Albuterol/Ipratropium (Duoneb 3 Mg/0.5 Mg (3 Ml) Ud) 3 ml INH RQ6 NEL Last Admin: 03/15/18 09:09 Dose: 3 ml Heparin Sodium (Porcine) (Heparin) 5,000 units SC Q8 NEL Last Admin: 03/15/18 05:37 Dose: 5,000 units Piperacillin Sod/Tazobactam (Sod 2.25 gm/ Sodium Chloride) 100 mls @ 200 mls/hr IVPB Q8H NEL; Protocol Last Admin: 03/15/18 10:36 Dose: 200 mls/hr Sodium Chloride (Sodium Chloride 0.9%) 1,000 mls @ 100 mls/hr IV .Q10H NEL Last Admin: 03/15/18 00:30 Dose: 100 mls/hr Insulin Human Regular (Novolin R) 0 unit SC Q4 NEL; Protocol Last Admin: 03/15/18 08:25 Dose: Not Given Pantoprazole Sodium (Protonix Inj) 40 mg IVP DAILY [facility] Last Admin: 03/15/18 10:36 Dose: 40 mg Pneumococcal Polyvalent Vaccine (Pneumovax 23 Vaccine) 0.5 ml IM .ONCE ONE Stop: 03/16/18 10:01 Physical Exam - Constitutional Appears: No Acute Distress, Cachectic, Chronically Ill - Head Exam Head Exam: NORMAL INSPECTION, NORMOCEPHALIC - Eye Exam Eye Exam: Normal appearance, PERRL - ENT Exam ENT Exam: Mucous Membranes Dry, Normal Exam - Neck Exam Neck exam: Positive for: Normal Inspection - Respiratory Exam Respiratory Exam: Clear to Auscultation Bilateral, NORMAL BREATHING PATTERN - Cardiovascular Exam Cardiovascular Exam: Irregular Rhythm - GI/Abdominal Exam GI & Abdominal Exam: Normal Bowel Sounds, Soft - Extremities Exam Extremities exam: Positive for: normal inspection - Skin Skin Exam: Dry, Warm Results - Vital Signs Recent Vital Signs: Last Vital Signs Temp 97.4 F L 03/15/18 08:00 Pulse 90 03/15/18 08:06 Resp 32 H 03/15/18 08:06 BP 108/60 03/15/18 08:06 Pulse Ox 100 03/15/18 08:06 - Labs Result Diagrams: 03/15/18 04:31 03/15/18 04:31 Labs: Laboratory Results - last 24 hr 03/14/18 03/14/18 03/14/18 15:43 15:49 15:49 WBC 12.5 H D RBC 4.02 L Hgb 11.4 L D Hct 37.2 MCV 92.5 D MCH 28.5 MCHC 30.8 L RDW 17.7 H Plt Count 421 H D MPV 7.2 Neut % (Auto) 85.3 H Lymph % (Auto) 8.4 L [place] % (Auto) 5.9 Eos % (Auto) 0.1 Baso % (Auto) 0.3 Neut # (Auto) 10.6 H Lymph # (Auto) 1.0 [place] # (Auto) 0.7 Eos # (Auto) 0.0 Baso # (Auto) 0.0 Neutrophils % (Manual) 81 H Band Neutrophils % 4 H Lymphocytes % (Manual) 10 L Monocytes % (Manual) 5 Metamyelocytes % Platelet Estimate Slightly increased H Plt Clumps, EDTA Anisocytosis (manual) Slight PT 13.4 H INR 1.2 APTT 21 Puncture Site pCO2 pO2 HCO3 ABG pH ABG Total CO2 ABG O2 Saturation ABG Base Excess Lionel Test ABG Potassium VBG pH VBG pCO2 VBG HCO3 VBG Total CO2 VBG O2 Sat (Calc) VBG Base Excess VBG Potassium Glucose Lactate Crit Value Called To Crit Value Called By Crit Value Read Back Blood Gas Notified Time Sodium Potassium Chloride Carbon Dioxide Anion Gap BUN Creatinine Est GFR ( Amer) Est GFR (Non-Af Amer) POC Glucose (mg/dL) 397 H Random Glucose Lactic Acid Calcium Phosphorus Magnesium Total Bilirubin AST ALT Alkaline Phosphatase Troponin I NT-Pro-B Natriuret Pep Total Protein Albumin Globulin Albumin/Globulin Ratio Arterial Blood Potassium Venous Blood Potassium Urine Color Urine Clarity Urine pH Ur Specific [place] Urine Protein Urine Glucose (UA) Urine Ketones Urine Blood Urine Nitrate Urine Bilirubin Urine Urobilinogen Ur Leukocyte Esterase Urine WBC (Auto) Urine RBC (Auto) Urine WBC Clumps (Auto) Urine Bacteria Hep Bs Antigen Hep Bs Antibody Hep B Core IgM Ab Hepatitis C Antibody 03/14/18 03/14/18 03/14/18 15:49 16:01 16:36 WBC RBC Hgb Hct MCV MCH MCHC RDW Plt Count MPV Neut % (Auto) Lymph % (Auto) [place] % (Auto) Eos % (Auto) Baso % (Auto) Neut # (Auto) Lymph # (Auto) [place] # (Auto) Eos # (Auto) Baso # (Auto) Neutrophils % (Manual) Band Neutrophils % Lymphocytes % (Manual) Monocytes % (Manual) Metamyelocytes % Platelet Estimate Plt Clumps, EDTA Anisocytosis (manual) PT INR APTT Puncture Site Rba pCO2 20 L pO2 22 L 227 H HCO3 15.1 L ABG pH 7.34 L ABG Total CO2 11.4 L ABG O2 Saturation 98.7 H ABG Base Excess -12.7 L Lionel Test Na ABG Potassium 6.3 H* VBG pH 7.02 L* VBG pCO2 43 VBG HCO3 7.6 VBG Total CO2 12.4 L VBG O2 Sat (Calc) 33.4 L VBG Base Excess -19.4 L VBG Potassium 10.6 H* Glucose 427 H* D 272 H Lactate 7.7 H* 3.5 H Crit Value Called To do Eddie Morgan m Crit Value Called By Catrina Fritz Crit Value Read Back Y Y Blood Gas Notified Time 1607 1643 Sodium 144 140.0 147.0 Potassium 10.1 H* D Chloride 103 108.0 H 124.0 H Carbon Dioxide 9 L* D Anion Gap 42 H BUN 128 H* D Creatinine 12.4 H* D Est GFR ( Amer) 5 Est GFR (Non-Af Amer) 4 POC Glucose (mg/dL) Random Glucose 439 H* D Lactic Acid Calcium 12.7 H Phosphorus 11.5 H Magnesium 3.7 H Total Bilirubin 0.8 AST 42 ALT 28 Alkaline Phosphatase 301 H D Troponin I 0.1140 NT-Pro-B Natriuret Pep 19959 H Total Protein 9.6 H Albumin 4.4 Globulin 5.3 H Albumin/Globulin Ratio 0.8 L Arterial Blood Potassium 6.3 H* Venous Blood Potassium 10.6 H* Urine Color Urine Clarity Urine pH Ur Specific [place] Urine Protein Urine Glucose (UA) Urine Ketones Urine Blood Urine Nitrate Urine Bilirubin Urine Urobilinogen Ur Leukocyte Esterase Urine WBC (Auto) Urine RBC (Auto) Urine WBC Clumps (Auto) Urine Bacteria Hep Bs Antigen Hep Bs Antibody Hep B Core IgM Ab Hepatitis C Antibody 03/14/18 03/14/18 03/14/18 17:51 18:05 18:41 WBC RBC Hgb Hct MCV MCH MCHC RDW Plt Count MPV Neut % (Auto) Lymph % (Auto) [place] % (Auto) Eos % (Auto) Baso % (Auto) Neut # (Auto) Lymph # (Auto) [place] # (Auto) Eos # (Auto) Baso # (Auto) Neutrophils % (Manual) Band Neutrophils % Lymphocytes % (Manual) Monocytes % (Manual) Metamyelocytes % Platelet Estimate Plt Clumps, EDTA Anisocytosis (manual) PT INR APTT Puncture Site pCO2 pO2 HCO3 ABG pH ABG Total CO2 ABG O2 Saturation ABG Base Excess Lionel Test ABG Potassium VBG pH VBG pCO2 VBG HCO3 VBG Total CO2 VBG O2 Sat (Calc) VBG Base Excess VBG Potassium Glucose Lactate Crit Value Called To Crit Value Called By Crit Value Read Back Blood Gas Notified Time Sodium Potassium Chloride Carbon Dioxide Anion Gap BUN Creatinine Est GFR ( Amer) Est GFR (Non-Af Amer) POC Glucose (mg/dL) 339 H 249 H Random Glucose Lactic Acid Calcium Phosphorus Magnesium Total Bilirubin AST ALT Alkaline Phosphatase Troponin I NT-Pro-B Natriuret Pep Total Protein Albumin Globulin Albumin/Globulin Ratio Arterial Blood Potassium Venous Blood Potassium Urine Color Yellow Urine Clarity Turbid Urine pH 5.0 Ur Specific [place] 1.014 Urine Protein 2+ H Urine Glucose (UA) 1+ H Urine Ketones Negative Urine Blood 3+ H Urine Nitrate Negative Urine Bilirubin Negative Urine Urobilinogen Normal Ur Leukocyte Esterase 2+ H Urine WBC (Auto) 20374 H Urine RBC (Auto) 207 H Urine WBC Clumps (Auto) Many H Urine Bacteria Many H Hep Bs Antigen Hep Bs Antibody Hep B Core IgM Ab Hepatitis C Antibody 03/14/18 03/14/18 03/14/18 19:42 20:13 21:08 WBC RBC Hgb Hct MCV MCH MCHC RDW Plt Count MPV Neut % (Auto) Lymph % (Auto) [place] % (Auto) Eos % (Auto) Baso % (Auto) Neut # (Auto) Lymph # (Auto) [place] # (Auto) Eos # (Auto) Baso # (Auto) Neutrophils % (Manual) Band Neutrophils % Lymphocytes % (Manual) Monocytes % (Manual) Metamyelocytes % Platelet Estimate Plt Clumps, EDTA Anisocytosis (manual) PT INR APTT Puncture Site pCO2 pO2 HCO3 ABG pH ABG Total CO2 ABG O2 Saturation ABG Base Excess Lionel Test ABG Potassium VBG pH VBG pCO2 VBG HCO3 VBG Total CO2 VBG O2 Sat (Calc) VBG Base Excess VBG Potassium Glucose Lactate Crit Value Called To Crit Value Called By Crit Value Read Back Blood Gas Notified Time Sodium 152 H Potassium 7.9 H* D Chloride 116 H Carbon Dioxide 18 L Anion Gap 26 H BUN 113 H* Creatinine 9.2 H* D Est GFR ( Amer) 7 Est GFR (Non-Af Amer) 6 POC Glucose (mg/dL) 215 H Random Glucose 183 H Lactic Acid Calcium 13.4 H* Phosphorus 6.3 H Magnesium 2.7 H Total Bilirubin 0.8 AST 57 ALT 71 Alkaline Phosphatase 211 H D Troponin I NT-Pro-B Natriuret Pep Total Protein 6.5 Albumin 2.8 L D Globulin 3.7 Albumin/Globulin Ratio 0.8 L Arterial Blood Potassium Venous Blood Potassium Urine Color Urine Clarity Urine pH Ur Specific [place] Urine Protein Urine Glucose (UA) Urine Ketones Urine Blood Urine Nitrate Urine Bilirubin Urine Urobilinogen Ur Leukocyte Esterase Urine WBC (Auto) Urine RBC (Auto) Urine WBC Clumps (Auto) Urine Bacteria Hep Bs Antigen Negative Hep Bs Antibody Hep B Core IgM Ab Negative Hepatitis C Antibody Negative 03/14/18 03/14/18 03/14/18 21:08 21:08 21:10 WBC 12.6 H RBC 3.15 L Hgb 9.1 L D Hct 28.3 L MCV 90.0 D MCH 28.8 MCHC 32.0 L RDW 17.2 H Plt Count 286 D MPV 6.9 L Neut % (Auto) 84.3 H Lymph % (Auto) 8.6 L [place] % (Auto) 6.7 Eos % (Auto) 0.1 Baso % (Auto) 0.3 Neut # (Auto) 10.6 H Lymph # (Auto) 1.1 [place] # (Auto) 0.8 Eos # (Auto) 0.0 Baso # (Auto) 0.0 Neutrophils % (Manual) 62 Band Neutrophils % 26 H* Lymphocytes % (Manual) 7 L Monocytes % (Manual) 3 Metamyelocytes % 2 H Platelet Estimate Normal Plt Clumps, EDTA Present Anisocytosis (manual) Slight PT INR APTT Puncture Site pCO2 pO2 HCO3 ABG pH ABG Total CO2 ABG O2 Saturation ABG Base Excess Lionel Test ABG Potassium VBG pH VBG pCO2 VBG HCO3 VBG Total CO2 VBG O2 Sat (Calc) VBG Base Excess VBG Potassium Glucose Lactate Crit Value Called To Crit Value Called By Crit Value Read Back Blood Gas Notified Time Sodium Potassium Chloride Carbon Dioxide Anion Gap BUN Creatinine Est GFR ( Amer) Est GFR (Non-Af Amer) POC Glucose (mg/dL) Random Glucose Lactic Acid 4.1 H* Calcium Phosphorus Magnesium Total Bilirubin AST ALT Alkaline Phosphatase Troponin I NT-Pro-B Natriuret Pep Total Protein Albumin Globulin Albumin/Globulin Ratio Arterial Blood Potassium Venous Blood Potassium Urine Color Urine Clarity Urine pH Ur Specific [place] Urine Protein Urine Glucose (UA) Urine Ketones Urine Blood Urine Nitrate Urine Bilirubin Urine Urobilinogen Ur Leukocyte Esterase Urine WBC (Auto) Urine RBC (Auto) Urine WBC Clumps (Auto) Urine Bacteria Hep Bs Antigen Hep Bs Antibody Negative Hep B Core IgM Ab Hepatitis C Antibody 03/15/18 03/15/18 03/15/18 00:42 04:16 04:31 WBC 11.0 H RBC 2.85 L Hgb 8.2 L Hct 25.2 L MCV 88.5 MCH 28.8 MCHC 32.5 L RDW 16.8 H Plt Count 233 MPV 6.8 L Neut % (Auto) 82.2 H Lymph % (Auto) 9.7 L [place] % (Auto) 7.0 Eos % (Auto) 0.4 Baso % (Auto) 0.7 Neut # (Auto) 9.0 H Lymph # (Auto) 1.1 [place] # (Auto) 0.8 Eos # (Auto) 0.0 Baso # (Auto) 0.1 Neutrophils % (Manual) 62 Band Neutrophils % 22 H* Lymphocytes % (Manual) 11 L Monocytes % (Manual) 5 Metamyelocytes % Platelet Estimate Plt Clumps, EDTA Anisocytosis (manual) PT INR APTT Puncture Site pCO2 pO2 HCO3 ABG pH ABG Total CO2 ABG O2 Saturation ABG Base Excess Lionel Test ABG Potassium VBG pH VBG pCO2 VBG HCO3 VBG Total CO2 VBG O2 Sat (Calc) VBG Base Excess VBG Potassium Glucose Lactate Crit Value Called To Crit Value Called By Crit Value Read Back Blood Gas Notified Time Sodium Potassium Chloride Carbon Dioxide Anion Gap BUN Creatinine Est GFR ( Amer) Est GFR (Non-Af Amer) POC Glucose (mg/dL) 116 H 101 Random Glucose Lactic Acid Calcium Phosphorus Magnesium Total Bilirubin AST ALT Alkaline Phosphatase Troponin I NT-Pro-B Natriuret Pep Total Protein Albumin Globulin Albumin/Globulin Ratio Arterial Blood Potassium Venous Blood Potassium Urine Color Urine Clarity Urine pH Ur Specific [place] Urine Protein Urine Glucose (UA) Urine Ketones Urine Blood Urine Nitrate Urine Bilirubin Urine Urobilinogen Ur Leukocyte Esterase Urine WBC (Auto) Urine RBC (Auto) Urine WBC Clumps (Auto) Urine Bacteria Hep Bs Antigen Hep Bs Antibody Hep B Core IgM Ab Hepatitis C Antibody 03/15/18 03/15/18 03/15/18 04:31 04:31 07:26 WBC RBC Hgb Hct MCV MCH MCHC RDW Plt Count MPV Neut % (Auto) Lymph % (Auto) [place] % (Auto) Eos % (Auto) Baso % (Auto) Neut # (Auto) Lymph # (Auto) [place] # (Auto) Eos # (Auto) Baso # (Auto) Neutrophils % (Manual) Band Neutrophils % Lymphocytes % (Manual) Monocytes % (Manual) Metamyelocytes % Platelet Estimate Plt Clumps, EDTA Anisocytosis (manual) PT INR APTT Puncture Site pCO2 pO2 HCO3 ABG pH ABG Total CO2 ABG O2 Saturation ABG Base Excess Lionel Test ABG Potassium VBG pH VBG pCO2 VBG HCO3 VBG Total CO2 VBG O2 Sat (Calc) VBG Base Excess VBG Potassium Glucose Lactate Crit Value Called To Crit Value Called By Crit Value Read Back Blood Gas Notified Time Sodium 147 Potassium 5.6 H Chloride 114 H Carbon Dioxide 17 L Anion Gap 22 H BUN 83 H Creatinine 7.5 H* Est GFR ( Amer) 9 Est GFR (Non-Af Amer) 7 POC Glucose (mg/dL) 112 H Random Glucose 114 H Lactic Acid 1.8 Calcium 9.1 Phosphorus 4.1 Magnesium 2.4 H Total Bilirubin 0.9 AST 55 ALT 39 Alkaline Phosphatase 183 H Troponin I NT-Pro-B Natriuret Pep Total Protein 7.0 Albumin 3.2 L Globulin 3.8 Albumin/Globulin Ratio 0.8 L Arterial Blood Potassium Venous Blood Potassium Urine Color Urine Clarity Urine pH Ur Specific [place] Urine Protein Urine Glucose (UA) Urine Ketones Urine Blood Urine Nitrate Urine Bilirubin Urine Urobilinogen Ur Leukocyte Esterase Urine WBC (Auto) Urine RBC (Auto) Urine WBC Clumps (Auto) Urine Bacteria Hep Bs Antigen Hep Bs Antibody Hep B Core IgM Ab Hepatitis C Antibody Assessment & Plan (1) JOY (acute kidney injury) Status: Acute (2) Afib Status: Acute (3) Anemia Status: Acute (4) CKD (chronic kidney disease) stage 4, GFR 15-29 ml/min Status: Acute (5) Change in mental status Status: Acute (6) Electrolyte imbalance Status: Acute (7) MRSA (methicillin resistant Staphylococcus aureus) septicemia Status: Acute (8) Metabolic acidosis Status: Acute - Assessment and Plan (Free Text) Assessment: recommend ID evaluation, antibiotics per ID HD today for hyperkalemia maintain iv fluids geronimo catheter follow blood cultures discussed w/ legal guardian, plan for hospice care once paperwork completed
--- NOTE | 2018-03-15 12:28 | CARD ---
APPROVED REPORT Date of service: 03/14/2018 EKG Measurement Heart [id number] <Conclusion> Wide QRS rhythm Left bundle branch block Abnormal ECG electrical alternans
[2018-03-15] MEDS ORDERED: Heparin25000 units/250ml 1/2NS 25,000 UNITS/250 ML BAG IV PRN (14:23)
--- NOTE | 2018-03-15 15:11 | CP.PCM.PN ---
Subjective - Date & Time of Evaluation Date of Evaluation: 03/15/18 Time of Evaluation: 15:10 - Subjective Subjective: requires emergency permacath removal of left( in artery) femoral catheter groin thrombectomy Objective - Vital Signs/Intake and Output Vital Signs (last 24 hours): Temp Pulse Resp BP Pulse Ox 97.4 F L 95 H 11 L 106/68 100 03/15/18 08:00 03/15/18 12:06 03/15/18 12:06 03/15/18 12:06 03/15/18 12:06 Intake and Output: 03/15/18 03/15/18 06:59 18:59 Intake Total 1850 400 Output Total 1465 350 Balance 385 50 - Medications Medications: Current Medications Albuterol/Ipratropium (Duoneb 3 Mg/0.5 Mg (3 Ml) Ud) 3 ml INH RQ6 NEL Last Admin: 03/15/18 13:20 Dose: 3 ml Piperacillin Sod/Tazobactam (Sod 2.25 gm/ Sodium Chloride) 100 mls @ 200 mls/hr IVPB Q8H NEL; Protocol Last Admin: 03/15/18 10:36 Dose: 200 mls/hr Sodium Chloride (Sodium Chloride 0.9%) 1,000 mls @ 100 mls/hr IV .Q10H NEL Last Admin: 03/15/18 00:30 Dose: 100 mls/hr Heparin Sodium/Sodium Chloride (Heparin 06757 Units/250ml 1/2 Normal Saline) 25,000 units in 250 mls @ 6.009 mls/hr IV .Q24H PRN; Protocol PRN Reason: ADJUST RATE PER PROTOCOL Insulin Human Regular (Novolin R) 0 unit SC Q4 NEL; Protocol Last Admin: 03/15/18 13:05 Dose: 1 units Pantoprazole Sodium (Protonix Inj) 40 mg IVP DAILY NEL Last Admin: 03/15/18 10:36 Dose: 40 mg Pneumococcal Polyvalent Vaccine (Pneumovax 23 Vaccine) 0.5 ml IM .ONCE ONE Stop: 03/16/18 10:01 - Labs Labs: 03/15/18 04:31 03/15/18 04:31 PT 13.4 SECONDS (9.7-12.2) H 03/14/18 15:49 INR 1.2 03/14/18 15:49 APTT 21 SECONDS (21-34) 03/14/18 15:49
[2018-03-15] MEDS ORDERED: HEPARIN-NS 5,000 UNITS/500 ML 5,000 UNIT/500 ML BAG IV ONE ×2 (15:22→17:12)
[2018-03-15] MEDS ORDERED: Etomidate 20 mg/10ml Inj IV ONE (15:36)
[2018-03-15] MEDS: Iohexol 240 200 ML ONE ×2 (16:42→16:43)
[2018-03-15] MEDS ORDERED: Rocuronium 10 mg/ml (10 ml) ONE ×2 (17:07→17:09)
[2018-03-15 17:22] LABS: ABG ALLEN TEST N; ARTERIAL BLOOD GAS HCO3 18.7 mmol/L (21-28); ARTERIAL BLOOD GAS O2 SAT 100.7 % (95-98); ARTERIAL BLOOD GAS PCO2 37 mm/Hg (35-45); ARTERIAL BLOOD GAS PH 7.29 (7.35-7.45); ARTERIAL BLOOD GAS PO2 413 mm/Hg (80-100); ARTERIAL BLOOD GAS TCO2 18.9 mmol/L (22-28)
--- NOTE | 2018-03-15 17:57 | PCM.SURG1 ---
Surgeon's Initial Post Op Note - Surgeon's Notes Surgeon: Dr Ceron Curb Hop: Dr Dawson PGY4 Type of Anesthesia: General Endo Pre-Operative Diagnosis: Acute left leg ischemia Operative Findings: shiley catheter in left femoral vein. thrombus in left common iliac Post-Operative Diagnosis: as above Operation Performed: left femoral thrombectomy. left femoral venogram. left femoral arteriogram Specimen/Specimens Removed: thrombus from left iliac Estimated Blood Loss: EBL {In ML}: 300 Blood Products Given: N/A Drains Used: No Drains Date of Surgery/Procedure: 03/15/18 Time of Surgery/Procedure: 17:59
[2018-03-15] MEDS ORDERED: Albumin Human 25% (12.5 gm/50 ml) IV ONE (19:30)
[2018-03-15 20:00] LABS: ARTERIAL BLOOD GAS HCO3 25.8 mmol/L (21-28); ARTERIAL BLOOD GAS HEMOGLOBIN 8.4 g/dL (11.7-17.4); ARTERIAL BLOOD GAS O2 SAT 99.9 % (95-98); ARTERIAL BLOOD GAS PCO2 24 mm/Hg (35-45); ARTERIAL BLOOD GAS PH 7.58 (7.35-7.45); ARTERIAL BLOOD GAS PO2 341 mm/Hg (80-100); ARTERIAL BLOOD GAS TCO2 23.2 mmol/L (22-28)
--- NOTE | 2018-03-15 20:15 | CP.PCM.PN ---
Subjective - Date & Time of Evaluation Date of Evaluation: 03/15/18 Time of Evaluation: 09:45 - Subjective Subjective: clinically same Objective - Vital Signs/Intake and Output Vital Signs (last 24 hours): Temp Pulse Resp BP Pulse Ox 97.8 F 100 H 17 113/43 L 100 03/15/18 19:00 03/15/18 19:03 03/15/18 19:55 03/15/18 19:55 03/15/18 19:55 Intake and Output: 03/15/18 03/16/18 18:59 06:59 Intake Total 2165 100 Output Total 615 Balance 1550 100 - Medications Medications: Current Medications Albuterol/Ipratropium (Duoneb 3 Mg/0.5 Mg (3 Ml) Ud) 3 ml INH RQ6 NEL Last Admin: 03/15/18 19:30 Dose: 3 ml Piperacillin Sod/Tazobactam (Sod 2.25 gm/ Sodium Chloride) 100 mls @ 200 mls/hr IVPB Q8H NEL; Protocol Last Admin: 03/15/18 19:00 Dose: Not Given Sodium Chloride (Sodium Chloride 0.9%) 1,000 mls @ 100 mls/hr IV .Q10H NEL Last Admin: 03/15/18 00:30 Dose: 100 mls/hr Heparin Sodium/Sodium Chloride (Heparin 10563 Units/250ml 1/2 Normal Saline) 25,000 units in 250 mls @ 6.009 mls/hr IV .Q24H PRN; Protocol PRN Reason: ADJUST RATE PER PROTOCOL Insulin Human Regular (Novolin R) 0 unit SC Q4 NEL; Protocol Last Admin: 03/15/18 16:00 Dose: Not Given Pantoprazole Sodium (Protonix Inj) 40 mg IVP DAILY NEL Last Admin: 03/15/18 10:36 Dose: 40 mg Pneumococcal Polyvalent Vaccine (Pneumovax 23 Vaccine) 0.5 ml IM .ONCE ONE Stop: 03/16/18 10:01 - Labs Labs: 03/15/18 04:31 03/15/18 04:31 PT 13.4 SECONDS (9.7-12.2) H 03/14/18 15:49 INR 1.2 03/14/18 15:49 APTT 21 SECONDS (21-34) 03/14/18 15:49
[2018-03-15] MEDS ORDERED: Digoxin 500 mcg/2ml (0.5 mg/2ml) Inj ONE (20:22)
[2018-03-15] MEDS ORDERED: Digoxin 500 mcg/2ml (0.5 mg/2ml) Inj IVP ONE ×2 (20:25→20:35)
[2018-03-16] MEDS: (Novolin R) Insulin Human Regular 100 units/ml vial SC SCH ×6 (00:30→20:16)
[2018-03-16] MEDS: Albuterol-Ipratrop 3 mg / 0.5 (3 ml) UD INH SCH ×4 (01:12→19:33)
[2018-03-16] MEDS: Piperacillin/Tazobact 2.25 GM in Sodium Chloride 100 ML IVPB SCH ×3 (01:12→18:15)
[2018-03-16] MEDS ORDERED: Sodium Chloride 0.9% 500 ML IV ONE (02:45)
[2018-03-16 03:23] LABS: BASO # 0.1 K/uL (0.0-0.2); BASO % 0.5 % (0.0-2.0); EOS # 0.1 K/uL (0.0-0.7); EOS % 0.8 % (0.0-4.0); HEMOGLOBIN 6.9 g/dL (12.0-18.0); LYMPH % 9.3 % (20.0-40.0); MEAN CELL VOLUME 89.1 fL (80.0-94.0); MEAN CORPUSCULAR HEMOGLOBIN 29.4 pg (27.0-31.0); MEAN PLATELET VOLUME 6.6 fL (7.2-11.7); MONO # 0.6 K/uL (0.0-0.8); MONO % 5.6 % (0.0-10.0); NEUT # 8.8 K/uL (1.8-7.0); NEUT % 83.8 % (50.0-75.0); NRBC % 0.2 % (0.0-2.0); PLATELET COUNT 155 K/uL (130-400); RBC 2.33 Mil/uL (4.40-5.90); RED CELL DISTRIBUTION WIDTH 15.8 % (11.5-14.5); WHITE BLOOD COUNT 10.5 K/uL (4.8-10.8)
[2018-03-16 03:36] LABS: ALB/GLOB RATIO 0.8 (1.0-2.1); ALBUMIN 2.5 g/dL (3.5-5.0)
[2018-03-16] MEDS ORDERED: Heparin25000 units/250ml 1/2NS 25,000 UNITS/250 ML BAG IV PRN (04:30)
[2018-03-16 04:40] LABS: ANISOCYTOSIS SLIGHT; LYMPHOCYTE 8 % (20-40); MONOCYTE 4 % (0-10); NEUTROPHIL 88 % (50-75); PLATELET ESTIMATE NORMAL (NORMAL); TOTAL CELLS COUNTED 100
[2018-03-16] MEDS: Sodium Chloride 0.9% 1,000 ML IV SCH ×4 (05:25→20:41)
[2018-03-16 05:42] LABS: ARTERIAL BLOOD GAS HEMOGLOBIN 10.5 g/dL (11.7-17.4); ARTERIAL BLOOD GAS O2 SAT 99.6 % (95-98); ARTERIAL BLOOD GAS PCO2 28 mm/Hg (35-45); ARTERIAL BLOOD GAS PH 7.49 (7.35-7.45); ARTERIAL BLOOD GAS PO2 168 mm/Hg (80-100); ARTERIAL BLOOD GAS TCO2 22.2 mmol/L (22-28)
--- NOTE | 2018-03-16 05:48 | OP ---
PROCEDURE DATE: 03/15/2018 PREOPERATIVE DIAGNOSIS: Ischemic left leg. POSTOPERATIVE DIAGNOSIS: Ischemic left leg. PROCEDURES CARRIED OUT: 1. Venogram, left leg. 2. Arteriogram, left leg. 3. Left transfemoral thrombectomy. In addition, the previously placed dialysis catheter which was placed in the femoral vein was removed. 4. Placement of a right jugular Perm-A-Cath. SURGEON: Jon Ceron Jr., MD SOLE STITCHER HAND: Dr. Dawson. ANESTHESIOLOGIST: Dr. Munoz. INDICATIONS: The patient is an elderly man, demented with large abdominal aortic aneurysm and a variety of other problems including acute renal failure, who today less than 25 hours after placement of left femoral vein catheter, had an ischemic left leg. Concern was raised that this may be in the artery, and because of this and because of the condition of the leg, the patient was taken to the operating room for exploration. OPERATIVE FINDINGS: Initially, we placed a Perm-A-Cath in the right jugular vein via the catheter which was positioned in the right chest wall, went through the jugular vein and terminated in superior vena cave. This was flushed with heparinized saline with good return, secured to the skin, and the procedure part of this went uneventfully. We then turned our attention to the left groin. First thing, we do is carry out a venogram which showed that the catheter previously placed was indeed in the femoral vein and not in the femoral artery. After this being done, we then carried out a cutdown on the vessel and dissected out the artery. Removed the previously placed femoral vein catheter, dissected out the artery. We then carried out an arteriogram by retrograde injection and then eventually by placing a catheter at the level of the renal arteries and taking hand injections down. This showed that there was a complete occlusion of left iliac artery. Reconstitution of the groin was run off below this. Runoff was seen down to the area of the knee. It was satisfactory via the superficial femoral artery. Subsequently, we attempted to carry out thrombectomy and removed great deal of clot, but in as much as partially involved the aneurysm, partially to complete thrombosed iliac artery. We were unable to remove all the clots successfully because of the patient's general condition. We then terminated the procedure and closed the arteriotomy in the groin. ESTIMATED BLOOD LOSS: Blood loss for procedure is 300 mL. OPERATION CARRIED OUT: 1. Perm-A-Cath, right jugular vein with C-arm fluoroscopy, ultrasound-guided puncture, and micropuncture technique. 2. Left femoral venogram, left femoral arteriogram, and left femoral thrombectomy. PROGNOSIS: The overall prognosis of the patient's survival is quite poor. Adequate flow was not reestablished into the left leg, but the patient was not a candidate for additional procedures. Jon Ceron Jr., MD MTDD
[2018-03-16 05:59] LABS: BASO % 0.4 % (0.0-2.0); EOS # 0.1 K/uL (0.0-0.7); EOS % 0.7 % (0.0-4.0); LYMPH # 1.3 K/uL (1.0-4.3); MEAN CELL VOLUME 89.6 fL (80.0-94.0); MEAN CORPUSCULAR HEMOGLOBIN 29.7 pg (27.0-31.0); MEAN CORPUSCULAR HGB CONC 33.2 g/dL (33.0-37.0); MEAN PLATELET VOLUME 6.8 fL (7.2-11.7); MONO # 0.6 K/uL (0.0-0.8); NEUT # 9.5 K/uL (1.8-7.0); NEUT % 82.9 % (50.0-75.0); NRBC % 0.2 % (0.0-2.0); RBC 2.36 Mil/uL (4.40-5.90); RED CELL DISTRIBUTION WIDTH 15.8 % (11.5-14.5); WHITE BLOOD COUNT 11.5 K/uL (4.8-10.8)
--- NOTE | 2018-03-16 08:32 | RAD ---
Date of service: 03/16/2018 HISTORY: intubated/ff-up COMPARISON: Portable chest 03/15/2018. FINDINGS: LUNGS: Endotracheal and nasogastric tubes are not significantly changed in position as well as right central venous dialysis catheter. External pacemaker apparently removed. No acute airspace disease identified bilaterally. PLEURA: No significant pleural effusion identified, no pneumothorax apparent. CARDIOVASCULAR: No aortic atherosclerotic calcification present OSSEOUS STRUCTURES: No significant abnormalities. VISUALIZED UPPER ABDOMEN: Normal. OTHER FINDINGS: None. IMPRESSION: No interval acute cardiopulmonary disease appreciated.
--- NOTE | 2018-03-16 08:41 | RAD ---
Date of service: 03/15/2018 HISTORY: s/p permacath/intubated COMPARISON: Portable chest 03/14/2018. FINDINGS: LUNGS: Right center venous dialysis catheter is been in placed the tip turning at the superior vena cava and cavoatrial junction. Endotracheal tube is in position terminating 5.5 cm above the yoselin and a nasogastric tube is identified is has been placed extending into left upper quadrant abdomen. External pacer also in position at the left chest. No airspace disease appreciated bilaterally. PLEURA: No significant pleural effusion identified, no pneumothorax apparent. CARDIOVASCULAR: No aortic atherosclerotic calcification present. Normal cardiac size. No pulmonary vascular congestion. OSSEOUS STRUCTURES: No significant abnormalities. VISUALIZED UPPER ABDOMEN: Normal. OTHER FINDINGS: None. IMPRESSION: No interval acute cardiopulmonary disease. Tubes and catheters in position as discussed above as well as external pacer.
--- NOTE | 2018-03-16 09:34 | RAD ---
Date of service: 03/15/2018 PROCEDURE: Intraoperative Fluoroscopy. HISTORY: LEFT LOWER ISCHEMIA FINDINGS: Fluoroscopic assistance was provided. Fluoroscopy time = 137.7 sec. Radiation dose = 31.62 mGy. Please refer to the operative report from LESL[facility] Flores.
--- NOTE | 2018-03-16 09:35 | RAD ---
Date of service: 03/15/2018 PROCEDURE: Intraoperative Fluoroscopy. HISTORY: RENAL FAILURE FINDINGS: Fluoroscopic assistance was provided. Fluoroscopy time = 9.8 sec. Radiation dose = 0.84 mGy. Please refer to the operative report from LESLIE Flores.
[2018-03-16] MEDS ORDERED: Metoprolol 1 mg/ml Inj IVP STA (09:44)
[2018-03-16] MEDS ORDERED: Pneumococcal 23-Valent Vaccine IM ONE (10:00)
--- NOTE | 2018-03-16 12:53 | CP.PCM.PN ---
Subjective - Date & Time of Evaluation Date of Evaluation: 03/16/18 Time of Evaluation: 12:50 - Subjective Subjective: Events noted s/p emergent dialysis 03/15 s/p left LE thrombectomy remains unresponsive, on vent on amiodarone gtt, IV fluids on treatment for UTI with sepsis oliguric hospice being decided Objective - Vital Signs/Intake and Output Vital Signs (last 24 hours): Temp Pulse Resp BP Pulse Ox 98.5 F 137 H 24 118/50 L 100 03/16/18 12:00 03/16/18 12:06 03/16/18 12:06 03/16/18 12:06 03/16/18 12:06 Intake and Output: 03/16/18 03/16/18 06:59 18:59 Intake Total 1962.5 1105 Output Total 1250 370 Balance 712.5 735 - Medications Medications: Current Medications Albuterol/Ipratropium (Duoneb 3 Mg/0.5 Mg (3 Ml) Ud) 3 ml INH RQ6 NEL Last Admin: 03/16/18 08:08 Dose: 3 ml Piperacillin Sod/Tazobactam (Sod 2.25 gm/ Sodium Chloride) 100 mls @ 200 mls/hr IVPB Q8H NEL; Protocol Last Admin: 03/16/18 09:59 Dose: 200 mls/hr Sodium Chloride (Sodium Chloride 0.9%) 1,000 mls @ 100 mls/hr IV .Q10H NEL Last Admin: 03/16/18 07:22 Dose: Not Given Heparin Sodium/Sodium Chloride (Heparin 64173 Units/250ml 1/2 Normal Saline) 25,000 units in 250 mls @ 7.011 mls/hr IV .Q24H PRN; Protocol PRN Reason: ADJUST RATE PER PROTOCOL Last Titration: 03/16/18 11:15 Dose: 0 units/kg/hr, 0 mls/hr Amiodarone HCl 900 mg/ (Dextrose) 500 mls @ 33.33 mls/hr IV .Q15H1M ONE; Protocol Stop: 03/17/18 02:40 Last Admin: 03/16/18 12:06 Dose: 33.33 mls/hr Insulin Human Regular (Novolin R) 0 unit SC Q4 NEL; Protocol Last Admin: 03/16/18 12:20 Dose: Not Given Pantoprazole Sodium (Protonix Inj) 40 mg IVP DAILY NEL Last Admin: 03/16/18 09:59 Dose: 40 mg - Labs Labs: 03/16/18 05:50 03/16/18 03:14 PT 13.4 SECONDS (9.7-12.2) H 03/14/18 15:49 INR 1.2 03/14/18 15:49 APTT 59 SECONDS (21-34) H D 03/16/18 10:48 - Constitutional Appears: In Acute Distress, Chronically Ill - Head Exam Head Exam: ATRAUMATIC, NORMAL INSPECTION - Neck Exam Neck Exam: Normal Inspection. absent: Tenderness - Respiratory Exam Respiratory Exam: Rhonchi, Respiratory Distress - Cardiovascular Exam Cardiovascular Exam: Tachycardia, +S1 - GI/Abdominal Exam GI & Abdominal Exam: Soft. absent: Tenderness - Extremities Exam Extremities Exam: Normal Inspection. absent: Tenderness - Neurological Exam Neurological Exam: Altered - Skin Skin Exam: Dry, Warm Assessment and Plan (1) Sepsis Status: Acute (2) JOY (acute kidney injury) Status: Acute (3) CKD (chronic kidney disease) stage 4, GFR 15-29 ml/min Status: Acute (4) UTI (urinary tract infection) Status: Acute (5) Dementia Status: Chronic - Assessment and Plan (Free Text) Plan: Likely to be placed in hospice IV ABs, IV fluids for sepsis If hospice will withhold dialysis Patient doing poorly, lkely will tolerate much more dialysis- will monitor
--- NOTE | 2018-03-16 13:22 | CP.PCM.CON ---
History of Present Illness - History of Present Illness History of Present Illness: Palliative consult requested by Doctor Carrillo, the medical lab assistant, for goals of care discussion Patient is a 72 yo male admitted from [place] with AMS . Patient found unresponsive in ED. Diagnosed with Sepsis, UTI with Gram - rods and gangrene of left foot. patient intubated in acute respiratory distress and placed on MV support. P atient taken to OR for angiogram with Doctor Sparks , but blood flow to left foot was not restored. Prognosis is seen as very poor. Doctor Alexandre Calderon does not suggest further interventions due to overall patient's poor condition. Patient is under Legal Guardian services. Hospice care seems appropriate level of care for this patient and Palliative care was called to assist with process PMH: Alzheimer's, anemia, anxiety, dementia, HTN, Schizophrenia, S/P colostomy Soc. Hx: [place] resident, under the care of legal guardian Fam. Hx: Unknown Review of Systems - Review of Systems All systems: reviewed and no additional remarkable complaints except Review of Systems: ROS unobtainable from patient due to intubation. ROS obtained from nursing. per nursing patient remains on MV support and is fallowed by Doctor Sparks re left foot gangrene Past Patient History - Infectious Disease Hx of Infectious Diseases: None - Tetanus Immunizations Tetanus Immunization: Unknown - Past Medical History & Family History Past Medical History?: Yes - Past Social History Smoking Status: Unknown If Ever Smoked - CARDIAC Hx Hypertension: Yes - PULMONARY Hx Respiratory Disorders: Yes - NEUROLOGICAL Hx Alzheimer's Disease: Yes Hx Dementia: Yes - HEENT Hx HEENT Problems: No - RENAL Hx Chronic Kidney Disease: Yes - ENDOCRINE/METABOLIC Hx Endocrine Disorders: Yes Hx Diabetes Mellitus Type 2: Yes - HEMATOLOGICAL/ONCOLOGICAL Hx Anemia: Yes - INTEGUMENTARY Hx Dermatological Problems: Yes Other/Comment: sacral wound, multiple wound/ ulcers - MUSCULOSKELETAL/RHEUMATOLOGICAL Hx Falls: No - GASTROINTESTINAL Hx Gastrointestinal Disorders: Yes Hx Colostomy: Yes (right side) Hx Gastroesophageal Reflux: Yes - GENITOURINARY/GYNECOLOGICAL Hx Genitourinary Disorders: Yes - PSYCHIATRIC Hx Anxiety: Yes Hx Schizophrenia: Yes Hx Substance Use: No - SURGICAL HISTORY Hx Surgeries: No - ANESTHESIA Hx Anesthesia: No Hx Anesthesia Reactions: No Meds Allergies/Adverse Reactions: Allergies Allergy/AdvReac Type Severity Reaction Status Date / Time No Known Allergies Allergy Verified 03/14/18 15:28 - Medications Medications: Current Medications Albuterol/Ipratropium (Duoneb 3 Mg/0.5 Mg (3 Ml) Ud) 3 ml INH RQ6 NEL Last Admin: 03/16/18 08:08 Dose: 3 ml Piperacillin Sod/Tazobactam (Sod 2.25 gm/ Sodium Chloride) 100 mls @ 200 mls/hr IVPB Q8H NEL; Protocol Last Admin: 03/16/18 09:59 Dose: 200 mls/hr Sodium Chloride (Sodium Chloride 0.9%) 1,000 mls @ 100 mls/hr IV .Q10H NEL Last Admin: 03/16/18 07:22 Dose: Not Given Heparin Sodium/Sodium Chloride (Heparin 96730 Units/250ml 1/2 Normal Saline) 25,000 units in 250 mls @ 7.011 mls/hr IV .Q24H PRN; Protocol PRN Reason: ADJUST RATE PER PROTOCOL Last Titration: 03/16/18 11:15 Dose: 0 units/kg/hr, 0 mls/hr Amiodarone HCl 900 mg/ (Dextrose) 500 mls @ 33.33 mls/hr IV .Q15H1M ONE; Protocol Stop: 03/17/18 02:40 Last Admin: 03/16/18 12:06 Dose: 33.33 mls/hr Insulin Human Regular (Novolin R) 0 unit SC Q4 NEL; Protocol Last Admin: 03/16/18 12:20 Dose: Not Given Pantoprazole Sodium (Protonix Inj) 40 mg IVP DAILY [facility] Last Admin: 03/16/18 09:59 Dose: 40 mg Physical Exam - Constitutional Appears: In Acute Distress, Chronically Ill - Head Exam Head Exam: ATRAUMATIC, NORMAL INSPECTION, NORMOCEPHALIC - Eye Exam Eye Exam: EOMI, Normal appearance, PERRL Pupil Exam: NORMAL ACCOMODATION, PERRL - ENT Exam Additional comments: ETT - Neck Exam Neck exam: Positive for: Normal Inspection - Respiratory Exam Additional comments: On MV support - Cardiovascular Exam Cardiovascular Exam: Tachycardia - GI/Abdominal Exam Additional comments: Colostomy status - Rectal Exam Rectal Exam: Deferred - Extremities Exam Additional comments: left foot gngrene, poor pedal pulses, cool to touch - Back Exam Back exam: NORMAL INSPECTION - Neurological Exam Neurological exam: Motor Sensory Deficit - Psychiatric Exam Psychiatric exam: Flat Affect - Skin Skin Exam: Pallor Results - Vital Signs Recent Vital Signs: Last Vital Signs Temp 98.5 F 03/16/18 12:00 Pulse 137 H 03/16/18 12:06 Resp 24 03/16/18 12:06 BP 118/50 L 03/16/18 12:06 Pulse Ox 100 03/16/18 12:06 - Labs Result Diagrams: 03/16/18 05:50 03/16/18 03:14 Labs: Laboratory Results - last 24 hr 03/15/18 03/15/18 03/15/18 06:00 15:13 17:15 WBC RBC Hgb Hct MCV MCH MCHC RDW Plt Count MPV Neut % (Auto) Lymph % (Auto) Smith % (Auto) Eos % (Auto) Baso % (Auto) Neut # (Auto) Lymph # (Auto) Smith # (Auto) Eos # (Auto) Baso # (Auto) Neutrophils % (Manual) Lymphocytes % (Manual) Monocytes % (Manual) Platelet Estimate Anisocytosis (manual) APTT Puncture Site Na pCO2 37 pO2 413 H HCO3 18.7 L ABG pH 7.29 L ABG Total CO2 18.9 L ABG O2 Saturation 100.7 H ABG Base Excess -8.1 L ABG Hemoglobin ABG Carboxyhemoglobin POC ABG HHb (Measured) ABG Methemoglobin Lionel Test N ABG Potassium 5.1 A-a O2 Difference Respiratory Index Hgb O2 Saturation Sodium 146.0 Chloride 123.0 H Glucose 162 H Lactate 1.4 Vent Mode Mechanical Rate FiO2 Tidal Volume PEEP Potassium Carbon Dioxide Anion Gap BUN Creatinine Est GFR ( Amer) Est GFR (Non-Af Amer) POC Glucose (mg/dL) Random Glucose Calcium Phosphorus Magnesium Total Bilirubin AST ALT Alkaline Phosphatase Total Protein Albumin Globulin Albumin/Globulin Ratio Arterial Blood Potassium 5.1 C. difficile Ag & Toxin Negative Blood Type O POSITIVE Antibody Screen Negative 03/15/18 03/15/18 03/15/18 17:55 19:50 20:30 WBC RBC Hgb Hct MCV MCH MCHC RDW Plt Count MPV Neut % (Auto) Lymph % (Auto) Smith % (Auto) Eos % (Auto) Baso % (Auto) Neut # (Auto) Lymph # (Auto) Smith # (Auto) Eos # (Auto) Baso # (Auto) Neutrophils % (Manual) Lymphocytes % (Manual) Monocytes % (Manual) Platelet Estimate Anisocytosis (manual) APTT Puncture Site Howard pCO2 24 L pO2 341 H HCO3 25.8 ABG pH 7.58 H ABG Total CO2 23.2 ABG O2 Saturation 99.9 H ABG Base Excess 1.1 ABG Hemoglobin 8.4 L ABG Carboxyhemoglobin 1.3 POC ABG HHb (Measured) 0.1 ABG Methemoglobin 0.6 Lionel Test Na ABG Potassium A-a O2 Difference 57.0 Respiratory Index 0.2 Hgb O2 Saturation 97.9 Sodium Chloride Glucose Lactate Vent Mode Prvc Mechanical Rate 20 FiO2 60.0 Tidal Volume 500 PEEP 5 Potassium Carbon Dioxide Anion Gap BUN Creatinine Est GFR ( Amer) Est GFR (Non-Af Amer) POC Glucose (mg/dL) 158 H 114 H Random Glucose Calcium Phosphorus Magnesium Total Bilirubin AST ALT Alkaline Phosphatase Total Protein Albumin Globulin Albumin/Globulin Ratio Arterial Blood Potassium C. difficile Ag & Toxin Blood Type Antibody Screen 03/15/18 03/16/18 03/16/18 23:29 03:14 03:14 WBC 10.5 RBC 2.33 L Hgb 6.9 L Hct 20.8 L MCV 89.1 MCH 29.4 MCHC 33.0 RDW 15.8 H Plt Count 155 MPV 6.6 L Neut % (Auto) 83.8 H Lymph % (Auto) 9.3 L Smith % (Auto) 5.6 Eos % (Auto) 0.8 Baso % (Auto) 0.5 Neut # (Auto) 8.8 H Lymph # (Auto) 1.0 Smith # (Auto) 0.6 Eos # (Auto) 0.1 Baso # (Auto) 0.1 Neutrophils % (Manual) 88 H Lymphocytes % (Manual) 8 L Monocytes % (Manual) 4 Platelet Estimate Normal Anisocytosis (manual) Slight APTT Puncture Site pCO2 pO2 HCO3 ABG pH ABG Total CO2 ABG O2 Saturation ABG Base Excess ABG Hemoglobin ABG Carboxyhemoglobin POC ABG HHb (Measured) ABG Methemoglobin Lionel Test ABG Potassium A-a O2 Difference Respiratory Index Hgb O2 Saturation Sodium 146 Chloride 116 H Glucose Lactate Vent Mode Mechanical Rate FiO2 Tidal Volume PEEP Potassium 4.3 Carbon Dioxide 19 L Anion Gap 15 BUN 50 H Creatinine 4.4 H Est GFR ( Amer) 16 Est GFR (Non-Af Amer) 13 POC Glucose (mg/dL) 128 H Random Glucose 121 H Calcium 7.0 L Phosphorus 3.0 Magnesium 1.9 Total Bilirubin 0.7 AST 76 H D ALT 51 Alkaline Phosphatase 117 Total Protein 5.5 L Albumin 2.5 L D Globulin 3.0 Albumin/Globulin Ratio 0.8 L Arterial Blood Potassium C. difficile Ag & Toxin Blood Type Antibody Screen 03/16/18 03/16/18 03/16/18 03:14 03:43 05:35 WBC RBC Hgb Hct MCV MCH MCHC RDW Plt Count MPV Neut % (Auto) Lymph % (Auto) Smith % (Auto) Eos % (Auto) Baso % (Auto) Neut # (Auto) Lymph # (Auto) Smith # (Auto) Eos # (Auto) Baso # (Auto) Neutrophils % (Manual) Lymphocytes % (Manual) Monocytes % (Manual) Platelet Estimate Anisocytosis (manual) APTT 42 H D Puncture Site Howard pCO2 28 L pO2 168 H HCO3 24.0 ABG pH 7.49 H ABG Total CO2 22.2 ABG O2 Saturation 99.6 H ABG Base Excess -1.2 ABG Hemoglobin 10.5 L ABG Carboxyhemoglobin 1.6 H POC ABG HHb (Measured) 0.4 ABG Methemoglobin 0.5 Lionel Test Na ABG Potassium A-a O2 Difference 82.0 Respiratory Index 0.5 Hgb O2 Saturation 97.5 Sodium Chloride Glucose Lactate Vent Mode Prvc Mechanical Rate 14 FiO2 40.0 Tidal Volume 400 PEEP 5 Potassium Carbon Dioxide Anion Gap BUN Creatinine Est GFR ( Amer) Est GFR (Non-Af Amer) POC Glucose (mg/dL) 107 Random Glucose Calcium Phosphorus Magnesium Total Bilirubin AST ALT Alkaline Phosphatase Total Protein Albumin Globulin Albumin/Globulin Ratio Arterial Blood Potassium C. difficile Ag & Toxin Blood Type Antibody Screen 03/16/18 03/16/18 03/16/18 05:50 07:29 10:48 WBC 11.5 H RBC 2.36 L Hgb 7.0 L Hct 21.1 L MCV 89.6 MCH 29.7 MCHC 33.2 RDW 15.8 H Plt Count 149 MPV 6.8 L Neut % (Auto) 82.9 H Lymph % (Auto) 11.0 L Smith % (Auto) 5.0 Eos % (Auto) 0.7 Baso % (Auto) 0.4 Neut # (Auto) 9.5 H Lymph # (Auto) 1.3 Smith # (Auto) 0.6 Eos # (Auto) 0.1 Baso # (Auto) 0.0 Neutrophils % (Manual) Lymphocytes % (Manual) Monocytes % (Manual) Platelet Estimate Anisocytosis (manual) APTT 59 H D Puncture Site pCO2 pO2 HCO3 ABG pH ABG Total CO2 ABG O2 Saturation ABG Base Excess ABG Hemoglobin ABG Carboxyhemoglobin POC ABG HHb (Measured) ABG Methemoglobin Lionel Test ABG Potassium A-a O2 Difference Respiratory Index Hgb O2 Saturation Sodium Chloride Glucose Lactate Vent Mode Mechanical Rate FiO2 Tidal Volume PEEP Potassium Carbon Dioxide Anion Gap BUN Creatinine Est GFR ( Amer) Est GFR (Non-Af Amer) POC Glucose (mg/dL) 99 Random Glucose Calcium Phosphorus Magnesium Total Bilirubin AST ALT Alkaline Phosphatase Total Protein Albumin Globulin Albumin/Globulin Ratio Arterial Blood Potassium C. difficile Ag & Toxin Blood Type Antibody Screen 03/16/18 11:22 WBC RBC Hgb Hct MCV MCH MCHC RDW Plt Count MPV Neut % (Auto) Lymph % (Auto) Smith % (Auto) Eos % (Auto) Baso % (Auto) Neut # (Auto) Lymph # (Auto) Smith # (Auto) Eos # (Auto) Baso # (Auto) Neutrophils % (Manual) Lymphocytes % (Manual) Monocytes % (Manual) Platelet Estimate Anisocytosis (manual) APTT Puncture Site pCO2 pO2 HCO3 ABG pH ABG Total CO2 ABG O2 Saturation ABG Base Excess ABG Hemoglobin ABG Carboxyhemoglobin POC ABG HHb (Measured) ABG Methemoglobin Lionel Test ABG Potassium A-a O2 Difference Respiratory Index Hgb O2 Saturation Sodium Chloride Glucose Lactate Vent Mode Mechanical Rate FiO2 Tidal Volume PEEP Potassium Carbon Dioxide Anion Gap BUN Creatinine Est GFR ( Amer) Est GFR (Non-Af Amer) POC Glucose (mg/dL) 109 Random Glucose Calcium Phosphorus Magnesium Total Bilirubin AST ALT Alkaline Phosphatase Total Protein Albumin Globulin Albumin/Globulin Ratio Arterial Blood Potassium C. difficile Ag & Toxin Blood Type Antibody Screen Assessment & Plan - Assessment and Plan (Free Text) Assessment: Palliative consult Full Code, there is no Advance directive on chart, PPS 10% I reviewed Medical records, all diagnostic studies and examined patient in bed. Patient is unresponsive, on MV support, looking very ill. Skin is pale and dry. Oral mucousa dry. Colostomy bag to right side, stool soft, yellow. There is no voluntary movement of extremities. left foot cool to touch. Doctor Adelina yeows, no further interventions advised as of now, due to poor overall health. BP 118/50, HR 137 WBC 11.5, Hb 7 Legal Guardian was present and I was called by the compensation vice president to discuss goals of care for this patient. I reviewed patient's clinical presentation and offered my concerns about very poor clinical presentation. I shared the impression of ICU team suggesting Hospice care and DNR/DNI status.The Legal Guardian informed me on the protocol needed to be fallowed and the form which had to be completed by Doctor gloria Hernandes the PMD. The compensation vice president was to call Doctor Gloria Hernandes and have form signed. Impression * This is a chronically ill male in acute respiratory distress on life support * Colostomy status * Left foot gangrene * Very poor quality of life * Prognosis looks poor. I do not feel this patient will achieve meaningful recovery * Patient is unable to advocate for himself and his wishes for end of life care are not known * Patient is under the care of legal Guardian Suggestions * Symptoms management * Skin care * Aspiration precautions * DNR/DNI would be appropriate Code status * Fallow protocol requested by The Legal Guardian to achieve DNR/DNI status * Hospice care Advance Care planing 35 min
--- NOTE | 2018-03-16 13:27 | CP.PCM.PN ---
Subjective - Date & Time of Evaluation Date of Evaluation: 03/16/18 Time of Evaluation: 13:23 - Subjective Subjective: 72 y/o male is POD #1 s/p emergent left femoral embolization and right IJ permacath placement. Patient seen and examined at bedside today. Patient remains intubated. Left lower extremity remains mottled and cold to touch. No palpable or doppler DP or PT pulses on left extremity. Right IJ permacath dressing clean, dry and intact. Left groin dressing clean, dry, intact. ROS unobtainable due to intubation. Objective - Vital Signs/Intake and Output Vital Signs (last 24 hours): Temp Pulse Resp BP Pulse Ox 98.5 F 137 H 24 118/50 L 100 03/16/18 12:00 03/16/18 12:06 03/16/18 12:06 03/16/18 12:06 03/16/18 12:06 Intake and Output: 03/16/18 03/16/18 06:59 18:59 Intake Total 1962.5 1105 Output Total 1250 370 Balance 712.5 735 - Medications Medications: Current Medications Albuterol/Ipratropium (Duoneb 3 Mg/0.5 Mg (3 Ml) Ud) 3 ml INH RQ6 NEL Last Admin: 03/16/18 08:08 Dose: 3 ml Piperacillin Sod/Tazobactam (Sod 2.25 gm/ Sodium Chloride) 100 mls @ 200 mls/hr IVPB Q8H NEL; Protocol Last Admin: 03/16/18 09:59 Dose: 200 mls/hr Sodium Chloride (Sodium Chloride 0.9%) 1,000 mls @ 100 mls/hr IV .Q10H NEL Last Admin: 03/16/18 07:22 Dose: Not Given Heparin Sodium/Sodium Chloride (Heparin 88102 Units/250ml 1/2 Normal Saline) 25,000 units in 250 mls @ 7.011 mls/hr IV .Q24H PRN; Protocol PRN Reason: ADJUST RATE PER PROTOCOL Last Titration: 03/16/18 11:15 Dose: 0 units/kg/hr, 0 mls/hr Amiodarone HCl 900 mg/ (Dextrose) 500 mls @ 33.33 mls/hr IV .Q15H1M ONE; Protocol Stop: 03/17/18 02:40 Last Admin: 03/16/18 12:06 Dose: 33.33 mls/hr Insulin Human Regular (Novolin R) 0 unit SC Q4 [facility]; Protocol Last Admin: 03/16/18 12:20 Dose: Not Given Pantoprazole Sodium (Protonix Inj) 40 mg IVP DAILY [facility] Last Admin: 03/16/18 09:59 Dose: 40 mg - Labs Labs: 03/16/18 05:50 03/16/18 03:14 PT 13.4 SECONDS (9.7-12.2) H 03/14/18 15:49 INR 1.2 03/14/18 15:49 APTT 59 SECONDS (21-34) H D 03/16/18 10:48 - Constitutional Appears: No Acute Distress - Head Exam Head Exam: NORMAL INSPECTION - Eye Exam Eye Exam: Normal appearance Pupil Exam: NORMAL ACCOMODATION - ENT Exam ENT Exam: Mucous Membranes Dry, Normal Exam Additional comments: ET tube in place. - Neck Exam Neck Exam: Normal Inspection Additional comments: Right IJ permacath in place. - Respiratory Exam Respiratory Exam: Clear to Ausculation Bilateral, NORMAL BREATHING PATTERN - Cardiovascular Exam Cardiovascular Exam: Tachycardia, +S1, +S2 - GI/Abdominal Exam GI & Abdominal Exam: Bruit, Soft. absent: Guarding, Rigid, Tenderness - Rectal Exam Rectal Exam: Deferred - Extremities Exam Additional comments: Left groin incision clean, dry, intact. Left popliteal artery pulse obtained by doppler. Left DP and PT pulse not palpable or dopplerable. Right DP and PT pulses dopplerable. - Back Exam Back Exam: NORMAL INSPECTION - Neurological Exam Neurological Exam: absent: Alert, Altered, Awake - Psychiatric Exam Additional comments: Unobtainable. - Skin Skin Exam: Dry, Warm Assessment and Plan - Assessment and Plan (Free Text) Assessment: 72 y/o male POD #1 s/p right IJ permacath insertion and left iliac thromboembolectomy . - Continue ICU management - Recommend spontaneous breathing trial. - anticoagulation DVT ppx - GI ppx - Dialysis treatment through right IJ permacath - Keep groin dressing clean, dry, intact - Prognosis guarded discussed with Dr. Jie Malone, PGY-3
--- NOTE | 2018-03-16 16:59 | CP.CCUPN ---
<Tony Carrillo - Last Filed: 03/16/18 16:50> CCU Subjective - Physician Review Events Since Last Encounter (Free Text): 03/16/18 16:51 No acute events overnight Subjective (Free Text): 03/16/18 16:51 PGY1 Critical Care Progress Note for Dr. Stern Patient was seen at bedside this morning. No acute events overnight. Patient minimally responsive. ROS could not be obtained due to clinical condition. Critical Care Time Spent (in minutes): 35 CCU Objective - Vital Signs / Intake & Output Vital Signs (Last 4 hours): Vital Signs Temp Pulse Resp BP BP Pulse Ox 03/16/18 16:38 122 H 21 58/30 L 100 03/16/18 16:30 121 H 25 H 77 L 03/16/18 16:29 135 H 26 H 59/29 L 92 L 03/16/18 16:24 98.1 F 24 L 128 H 58/30 L 03/16/18 16:09 98.0 F 141 H 23 67/40 L 100 03/16/18 16:08 127 H 22 71/45 L 86 L 03/16/18 16:00 97.9 F 124 H 26 H 67/40 L 100 03/16/18 15:54 97.8 F 23 L 131 H 93/49 L 03/16/18 15:30 131 H 27 H 100 03/16/18 15:28 136 H 27 H 83/43 L 100 03/16/18 15:00 137 H 26 H 100/58 L 100 03/16/18 14:59 140 H 25 H 82/47 L 100 03/16/18 14:57 145 H 25 H 79/53 L 100 03/16/18 14:41 125 H 23 82/47 L 100 03/16/18 14:30 130 H 22 100 03/16/18 14:27 125 H 19 78/42 L 03/16/18 14:22 139 H 27 H 71/47 L 100 03/16/18 14:00 133 H 20 92/47 L 100 03/16/18 13:58 132 H 23 82/46 L 100 03/16/18 13:30 118 H 19 100 03/16/18 13:27 143 H 20 95/56 L 100 03/16/18 13:00 139 H 23 115/49 L 100 03/16/18 12:57 134 H 24 81/47 L 100 Intake and Output (Last 8hrs): Intake & Output 03/16/18 03/16/18 03/16/18 06:59 14:59 22:59 Intake Total 1450.5 1431.6 256.6 Output Total 1150 695 270 Balance 300.5 736.6 -13.4 Weight 106 lb 9.6 oz Intake: IV 100 Intake, IV Amount 1300.5 1001.6 166.6 L Thumb 50.5 35 Right Antecubital 750 900 100 Right Hand 66.6 66.6 Rt AC #18 500 Oral 60 30 Tube Feeding 150 270 60 Blood Product 0 Red Blood Cells Cpd As1 0 Lr Unit [id number] Output: Urine 200 95 20 Urethral ([place]) 200 95 20 Stool 950 600 250 - Physical Exam Head: Positive for: Atraumatic, Normocephalic Pupils: Positive for: PERRL Extroacular Muscles: Positive for: EOMI Mouth: Positive for: Dry Neck: Positive for: Normal Range of Motion. Negative for: JVD Respiratory/Chest: Positive for: Clear to Auscultation. Negative for: Respiratory Distress, Decreased Breath Sounds Cardiovascular: Positive for: Regular Rate and Rhythm, Normal S1, S2 Abdomen: Positive for: Ostomy Tubes (iliostomy bag clean and dry). Negative for: Tenderness, Distention Upper Extremity: Positive for: Normal Inspection, Capillary Refill < 2s. Negative for: Edema Lower Extremity: Negative for: Normal Inspection, Edema, CALF TENDERNESS, NORMAL PULSES (Left lower extremity is cool to touch compared to the right. No pulses palpable on left lower extremity for pedal and/or popliteal pulses. ) Psychiatric: Positive for: Alert. Negative for: Oriented x 3 - Medications Active Medications: Active Medications Generic Name Dose Route Start Last Admin Trade Name Freq PRN Reason Stop Dose Admin Albuterol/Ipratropium 3 ml 03/14/18 20:00 03/16/18 14:34 Duoneb 3 Mg/0.5 Mg (3 Ml) Ud INH 3 ml RQ6 NEL Administration Piperacillin Sod/Tazobactam 100 mls @ 200 mls/hr 03/15/18 02:00 03/16/18 09:59 Sod 2.25 gm/ Sodium Chloride IVPB 200 mls/hr Q8H NEL Administration Protocol Sodium Chloride 1,000 mls @ 100 mls/hr 03/15/18 00:15 03/16/18 16:39 Sodium Chloride 0.9% IV Not Given .Q10H NEL Heparin Sodium/Sodium Chloride 25,000 units in 250 mls @ 7.011 mls/hr 03/16/18 04:30 03/16/18 11:15 Heparin 37458 Units/250ml 1/2 Normal Saline IV 0 units/kg/hr .Q24H PRN 0 mls/hr ADJUST RATE PER PROTOCOL Titration Protocol 14 UNITS/KG/HR Amiodarone HCl 900 mg/ 500 mls @ 33.33 mls/hr 03/16/18 11:40 03/16/18 12:06 Dextrose IV 03/17/18 02:40 33.33 mls/hr .Q15H1M ONE Administration Protocol 1 MG/MIN Phenylephrine HCl 30 mg/ 253 mls @ 10.12 mls/hr 03/16/18 16:12 Sodium Chloride IV .Q24H PRN TITRATE PER MD ORDER Protocol 20 MCG/MIN Amiodarone HCl 900 mg/ 500 mls @ 16.67 mls/hr 03/16/18 18:05 Dextrose IV 03/17/18 18:04 .Q24H ONE Protocol 0.5 MG/MIN Insulin Human Regular 0 unit 03/14/18 20:36 03/16/18 16:05 Novolin R SC 1 units Q4 NEL Administration Protocol Pantoprazole Sodium 40 mg 03/15/18 10:00 03/16/18 09:59 Protonix Inj IVP 40 mg DAILY NEL Administration Pneumococcal Polyvalent Vaccine 0.5 ml 03/19/18 10:00 Pneumovax 23 Vaccine IM 03/19/18 10:01 .ONCE ONE - Patient Studies Lab Studies: Microbiology Studies 03/14/18 15:50 Blood Culture - Preliminary Blood NO GROWTH AFTER 48 HOURS 03/14/18 18:05 Urine Culture - Preliminary Urine,Catheterized Gram Negative Jerson Gram Negative Jerson#2 03/14/18 19:26 MRSA Culture (Admit) - Final Nose MRSA NOT DETECTED 03/14/18 17:56 Blood Culture - Preliminary Blood NO GROWTH AFTER 24 HOURS Lab Studies 03/16/18 03/16/18 03/16/18 Range/Units 11:22 10:48 07:29 WBC (4.8-10.8) K/uL RBC (4.40-5.90) Mil/uL Hgb (12.0-18.0) g/dL Hct (35.0-51.0) % MCV (80.0-94.0) fL MCH (27.0-31.0) pg MCHC (33.0-37.0) g/dL RDW (11.5-14.5) % Plt Count (130-400) K/uL MPV (7.2-11.7) fL Neut % (Auto) (50.0-75.0) % Lymph % (Auto) (20.0-40.0) % Frontier % (Auto) (0.0-10.0) % Eos % (Auto) (0.0-4.0) % Baso % (Auto) (0.0-2.0) % Neut # (Auto) (1.8-7.0) K/uL Lymph # (Auto) (1.0-4.3) K/uL Frontier # (Auto) (0.0-0.8) K/uL Eos # (Auto) (0.0-0.7) K/uL Baso # (Auto) (0.0-0.2) K/uL Neutrophils % (Manual) (50-75) % Lymphocytes % (Manual) (20-40) % Monocytes % (Manual) (0-10) % Platelet Estimate (NORMAL) Anisocytosis (manual) APTT 59 H D (21-34) SECONDS Puncture Site pCO2 (35-45) mm/Hg pO2 (80-100) mm/Hg HCO3 (21-28) mmol/L ABG pH (7.35-7.45) ABG Total CO2 (22-28) mmol/L ABG O2 Saturation (95-98) % ABG Base Excess (-2.0-3.0) mmol/L ABG Hemoglobin (11.7-17.4) g/dL ABG Carboxyhemoglobin (0.5-1.5) % POC ABG HHb (Measured) (0.0-5.0) % ABG Methemoglobin (0.0-3.0) % Lionel Test ABG Potassium (3.6-5.2) mmol/L A-a O2 Difference mm/Hg Respiratory Index Hgb O2 Saturation (95.0-98.0) % Sodium (132-148) mmol/l Chloride (98-107) mmol/L Glucose (75-110) mg/dl Lactate (0.7-2.1) mmol/L Vent Mode Mechanical Rate FiO2 % Tidal Volume PEEP Potassium (3.6-5.2) mmol/L Carbon Dioxide (22-30) mmol/L Anion Gap (10-20) BUN (9-20) mg/dL Creatinine (0.8-1.5) mg/dL Est GFR ( Amer) Est GFR (Non-Af Amer) POC Glucose (mg/dL) 109 99 (65-110) mg/dL Random Glucose (75-110) mg/dL Calcium (8.6-10.4) mg/dl Phosphorus (2.5-4.5) mg/dL Magnesium (1.6-2.3) mg/dL Total Bilirubin (0.2-1.3) mg/dL AST (17-59) U/L ALT (21-72) U/L Alkaline Phosphatase (38-126) U/L Total Protein (6.3-8.3) g/dL Albumin (3.5-5.0) g/dL Globulin (2.2-3.9) gm/dL Albumin/Globulin Ratio (1.0-2.1) Arterial Blood Potassium (3.6-5.2) mmol/L C. difficile Ag & Toxin (NEGATIVE) Blood Type Antibody Screen 03/16/18 03/16/18 03/16/18 Range/Units 05:50 05:35 03:43 WBC 11.5 H (4.8-10.8) K/uL RBC 2.36 L (4.40-5.90) Mil/uL Hgb 7.0 L (12.0-18.0) g/dL Hct 21.1 L (35.0-51.0) % MCV 89.6 (80.0-94.0) fL MCH 29.7 (27.0-31.0) pg MCHC 33.2 (33.0-37.0) g/dL RDW 15.8 H (11.5-14.5) % Plt Count 149 (130-400) K/uL MPV 6.8 L (7.2-11.7) fL Neut % (Auto) 82.9 H (50.0-75.0) % Lymph % (Auto) 11.0 L (20.0-40.0) % Frontier % (Auto) 5.0 (0.0-10.0) % Eos % (Auto) 0.7 (0.0-4.0) % Baso % (Auto) 0.4 (0.0-2.0) % Neut # (Auto) 9.5 H (1.8-7.0) K/uL Lymph # (Auto) 1.3 (1.0-4.3) K/uL Frontier # (Auto) 0.6 (0.0-0.8) K/uL Eos # (Auto) 0.1 (0.0-0.7) K/uL Baso # (Auto) 0.0 (0.0-0.2) K/uL Neutrophils % (Manual) (50-75) % Lymphocytes % (Manual) (20-40) % Monocytes % (Manual) (0-10) % Platelet Estimate (NORMAL) Anisocytosis (manual) APTT (21-34) SECONDS Puncture Site [place] pCO2 28 L (35-45) mm/Hg pO2 168 H (80-100) mm/Hg HCO3 24.0 (21-28) mmol/L ABG pH 7.49 H (7.35-7.45) ABG Total CO2 22.2 (22-28) mmol/L ABG O2 Saturation 99.6 H (95-98) % ABG Base Excess -1.2 (-2.0-3.0) mmol/L ABG Hemoglobin 10.5 L (11.7-17.4) g/dL ABG Carboxyhemoglobin 1.6 H (0.5-1.5) % POC ABG HHb (Measured) 0.4 (0.0-5.0) % ABG Methemoglobin 0.5 (0.0-3.0) % Lionel Test Na ABG Potassium (3.6-5.2) mmol/L A-a O2 Difference 82.0 mm/Hg Respiratory Index 0.5 Hgb O2 Saturation 97.5 (95.0-98.0) % Sodium (132-148) mmol/l Chloride (98-107) mmol/L Glucose (75-110) mg/dl Lactate (0.7-2.1) mmol/L Vent Mode Prvc Mechanical Rate 14 FiO2 40.0 % Tidal Volume 400 PEEP 5 Potassium (3.6-5.2) mmol/L Carbon Dioxide (22-30) mmol/L Anion Gap (10-20) BUN (9-20) mg/dL Creatinine (0.8-1.5) mg/dL Est GFR ( Amer) Est GFR (Non-Af Amer) POC Glucose (mg/dL) 107 (65-110) mg/dL Random Glucose (75-110) mg/dL Calcium (8.6-10.4) mg/dl Phosphorus (2.5-4.5) mg/dL Magnesium (1.6-2.3) mg/dL Total Bilirubin (0.2-1.3) mg/dL AST (17-59) U/L ALT (21-72) U/L Alkaline Phosphatase (38-126) U/L Total Protein (6.3-8.3) g/dL Albumin (3.5-5.0) g/dL Globulin (2.2-3.9) gm/dL Albumin/Globulin Ratio (1.0-2.1) Arterial Blood Potassium (3.6-5.2) mmol/L C. difficile Ag & Toxin (NEGATIVE) Blood Type Antibody Screen 03/16/18 03/16/18 03/16/18 Range/Units 03:14 03:14 03:14 WBC 10.5 (4.8-10.8) K/uL RBC 2.33 L (4.40-5.90) Mil/uL Hgb 6.9 L (12.0-18.0) g/dL Hct 20.8 L (35.0-51.0) % MCV 89.1 (80.0-94.0) fL MCH 29.4 (27.0-31.0) pg MCHC 33.0 (33.0-37.0) g/dL RDW 15.8 H (11.5-14.5) % Plt Count 155 (130-400) K/uL MPV 6.6 L (7.2-11.7) fL Neut % (Auto) 83.8 H (50.0-75.0) % Lymph % (Auto) 9.3 L (20.0-40.0) % Frontier % (Auto) 5.6 (0.0-10.0) % Eos % (Auto) 0.8 (0.0-4.0) % Baso % (Auto) 0.5 (0.0-2.0) % Neut # (Auto) 8.8 H (1.8-7.0) K/uL Lymph # (Auto) 1.0 (1.0-4.3) K/uL Frontier # (Auto) 0.6 (0.0-0.8) K/uL Eos # (Auto) 0.1 (0.0-0.7) K/uL Baso # (Auto) 0.1 (0.0-0.2) K/uL Neutrophils % (Manual) 88 H (50-75) % Lymphocytes % (Manual) 8 L (20-40) % Monocytes % (Manual) 4 (0-10) % Platelet Estimate Normal (NORMAL) Anisocytosis (manual) Slight APTT 42 H D (21-34) SECONDS Puncture Site pCO2 (35-45) mm/Hg pO2 (80-100) mm/Hg HCO3 (21-28) mmol/L ABG pH (7.35-7.45) ABG Total CO2 (22-28) mmol/L ABG O2 Saturation (95-98) % ABG Base Excess (-2.0-3.0) mmol/L ABG Hemoglobin (11.7-17.4) g/dL ABG Carboxyhemoglobin (0.5-1.5) % POC ABG HHb (Measured) (0.0-5.0) % ABG Methemoglobin (0.0-3.0) % Lionel Test ABG Potassium (3.6-5.2) mmol/L A-a O2 Difference mm/Hg Respiratory Index Hgb O2 Saturation (95.0-98.0) % Sodium 146 (132-148) mmol/l Chloride 116 H (98-107) mmol/L Glucose (75-110) mg/dl Lactate (0.7-2.1) mmol/L Vent Mode Mechanical Rate FiO2 % Tidal Volume PEEP Potassium 4.3 (3.6-5.2) mmol/L Carbon Dioxide 19 L (22-30) mmol/L Anion Gap 15 (10-20) BUN 50 H (9-20) mg/dL Creatinine 4.4 H (0.8-1.5) mg/dL Est GFR ( Amer) 16 Est GFR (Non-Af Amer) 13 POC Glucose (mg/dL) (65-110) mg/dL Random Glucose 121 H (75-110) mg/dL Calcium 7.0 L (8.6-10.4) mg/dl Phosphorus 3.0 (2.5-4.5) mg/dL Magnesium 1.9 (1.6-2.3) mg/dL Total Bilirubin 0.7 (0.2-1.3) mg/dL AST 76 H D (17-59) U/L ALT 51 (21-72) U/L Alkaline Phosphatase 117 (38-126) U/L Total Protein 5.5 L (6.3-8.3) g/dL Albumin 2.5 L D (3.5-5.0) g/dL Globulin 3.0 (2.2-3.9) gm/dL Albumin/Globulin Ratio 0.8 L (1.0-2.1) Arterial Blood Potassium (3.6-5.2) mmol/L C. difficile Ag & Toxin (NEGATIVE) Blood Type Antibody Screen 03/15/18 03/15/18 03/15/18 Range/Units 23:29 20:30 19:50 WBC (4.8-10.8) K/uL RBC (4.40-5.90) Mil/uL Hgb (12.0-18.0) g/dL Hct (35.0-51.0) % MCV (80.0-94.0) fL MCH (27.0-31.0) pg MCHC (33.0-37.0) g/dL RDW (11.5-14.5) % Plt Count (130-400) K/uL MPV (7.2-11.7) fL Neut % (Auto) (50.0-75.0) % Lymph % (Auto) (20.0-40.0) % Frontier % (Auto) (0.0-10.0) % Eos % (Auto) (0.0-4.0) % Baso % (Auto) (0.0-2.0) % Neut # (Auto) (1.8-7.0) K/uL Lymph # (Auto) (1.0-4.3) K/uL Frontier # (Auto) (0.0-0.8) K/uL Eos # (Auto) (0.0-0.7) K/uL Baso # (Auto) (0.0-0.2) K/uL Neutrophils % (Manual) (50-75) % Lymphocytes % (Manual) (20-40) % Monocytes % (Manual) (0-10) % Platelet Estimate (NORMAL) Anisocytosis (manual) APTT (21-34) SECONDS Puncture Site [place] pCO2 24 L (35-45) mm/Hg pO2 341 H (80-100) mm/Hg HCO3 25.8 (21-28) mmol/L ABG pH 7.58 H (7.35-7.45) ABG Total CO2 23.2 (22-28) mmol/L ABG O2 Saturation 99.9 H (95-98) % ABG Base Excess 1.1 (-2.0-3.0) mmol/L ABG Hemoglobin 8.4 L (11.7-17.4) g/dL ABG Carboxyhemoglobin 1.3 (0.5-1.5) % POC ABG HHb (Measured) 0.1 (0.0-5.0) % ABG Methemoglobin 0.6 (0.0-3.0) % Lionel Test Na ABG Potassium (3.6-5.2) mmol/L A-a O2 Difference 57.0 mm/Hg Respiratory Index 0.2 Hgb O2 Saturation 97.9 (95.0-98.0) % Sodium (132-148) mmol/l Chloride (98-107) mmol/L Glucose (75-110) mg/dl Lactate (0.7-2.1) mmol/L Vent Mode Prvc Mechanical Rate 20 FiO2 60.0 % Tidal Volume 500 PEEP 5 Potassium (3.6-5.2) mmol/L Carbon Dioxide (22-30) mmol/L Anion Gap (10-20) BUN (9-20) mg/dL Creatinine (0.8-1.5) mg/dL Est GFR ( Amer) Est GFR (Non-Af Amer) POC Glucose (mg/dL) 128 H 114 H (65-110) mg/dL Random Glucose (75-110) mg/dL Calcium (8.6-10.4) mg/dl Phosphorus (2.5-4.5) mg/dL Magnesium (1.6-2.3) mg/dL Total Bilirubin (0.2-1.3) mg/dL AST (17-59) U/L ALT (21-72) U/L Alkaline Phosphatase (38-126) U/L Total Protein (6.3-8.3) g/dL Albumin (3.5-5.0) g/dL Globulin (2.2-3.9) gm/dL Albumin/Globulin Ratio (1.0-2.1) Arterial Blood Potassium (3.6-5.2) mmol/L C. difficile Ag & Toxin (NEGATIVE) Blood Type Antibody Screen 03/15/18 03/15/18 03/15/18 Range/Units 17:55 17:15 15:13 WBC (4.8-10.8) K/uL RBC (4.40-5.90) Mil/uL Hgb (12.0-18.0) g/dL Hct (35.0-51.0) % MCV (80.0-94.0) fL MCH (27.0-31.0) pg MCHC (33.0-37.0) g/dL RDW (11.5-14.5) % Plt Count (130-400) K/uL MPV (7.2-11.7) fL Neut % (Auto) (50.0-75.0) % Lymph % (Auto) (20.0-40.0) % Frontier % (Auto) (0.0-10.0) % Eos % (Auto) (0.0-4.0) % Baso % (Auto) (0.0-2.0) % Neut # (Auto) (1.8-7.0) K/uL Lymph # (Auto) (1.0-4.3) K/uL [place] # (Auto) (0.0-0.8) K/uL Eos # (Auto) (0.0-0.7) K/uL Baso # (Auto) (0.0-0.2) K/uL Neutrophils % (Manual) (50-75) % Lymphocytes % (Manual) (20-40) % Monocytes % (Manual) (0-10) % Platelet Estimate (NORMAL) Anisocytosis (manual) APTT (21-34) SECONDS Puncture Site Na pCO2 37 (35-45) mm/Hg pO2 413 H (80-100) mm/Hg HCO3 18.7 L (21-28) mmol/L ABG pH 7.29 L (7.35-7.45) ABG Total CO2 18.9 L (22-28) mmol/L ABG O2 Saturation 100.7 H (95-98) % ABG Base Excess -8.1 L (-2.0-3.0) mmol/L ABG Hemoglobin (11.7-17.4) g/dL ABG Carboxyhemoglobin (0.5-1.5) % POC ABG HHb (Measured) (0.0-5.0) % ABG Methemoglobin (0.0-3.0) % Lionel Test N ABG Potassium 5.1 (3.6-5.2) mmol/L A-a O2 Difference mm/Hg Respiratory Index Hgb O2 Saturation (95.0-98.0) % Sodium 146.0 (132-148) mmol/l Chloride 123.0 H (98-107) mmol/L Glucose 162 H (75-110) mg/dl Lactate 1.4 (0.7-2.1) mmol/L Vent Mode Mechanical Rate FiO2 % Tidal Volume PEEP Potassium (3.6-5.2) mmol/L Carbon Dioxide (22-30) mmol/L Anion Gap (10-20) BUN (9-20) mg/dL Creatinine (0.8-1.5) mg/dL Est GFR ( Amer) Est GFR (Non-Af Amer) POC Glucose (mg/dL) 158 H (65-110) mg/dL Random Glucose (75-110) mg/dL Calcium (8.6-10.4) mg/dl Phosphorus (2.5-4.5) mg/dL Magnesium (1.6-2.3) mg/dL Total Bilirubin (0.2-1.3) mg/dL AST (17-59) U/L ALT (21-72) U/L Alkaline Phosphatase (38-126) U/L Total Protein (6.3-8.3) g/dL Albumin (3.5-5.0) g/dL Globulin (2.2-3.9) gm/dL Albumin/Globulin Ratio (1.0-2.1) Arterial Blood Potassium 5.1 (3.6-5.2) mmol/L C. difficile Ag & Toxin (NEGATIVE) Blood Type O POSITIVE Antibody Screen Negative 03/15/18 Range/Units 06:00 WBC (4.8-10.8) K/uL RBC (4.40-5.90) Mil/uL Hgb (12.0-18.0) g/dL Hct (35.0-51.0) % MCV (80.0-94.0) fL MCH (27.0-31.0) pg MCHC (33.0-37.0) g/dL RDW (11.5-14.5) % Plt Count (130-400) K/uL MPV (7.2-11.7) fL Neut % (Auto) (50.0-75.0) % Lymph % (Auto) (20.0-40.0) % Frontier % (Auto) (0.0-10.0) % Eos % (Auto) (0.0-4.0) % Baso % (Auto) (0.0-2.0) % Neut # (Auto) (1.8-7.0) K/uL Lymph # (Auto) (1.0-4.3) K/uL [place] # (Auto) (0.0-0.8) K/uL Eos # (Auto) (0.0-0.7) K/uL Baso # (Auto) (0.0-0.2) K/uL Neutrophils % (Manual) (50-75) % Lymphocytes % (Manual) (20-40) % Monocytes % (Manual) (0-10) % Platelet Estimate (NORMAL) Anisocytosis (manual) APTT (21-34) SECONDS Puncture Site pCO2 (35-45) mm/Hg pO2 (80-100) mm/Hg HCO3 (21-28) mmol/L ABG pH (7.35-7.45) ABG Total CO2 (22-28) mmol/L ABG O2 Saturation (95-98) % ABG Base Excess (-2.0-3.0) mmol/L ABG Hemoglobin (11.7-17.4) g/dL ABG Carboxyhemoglobin (0.5-1.5) % POC ABG HHb (Measured) (0.0-5.0) % ABG Methemoglobin (0.0-3.0) % Lionel Test ABG Potassium (3.6-5.2) mmol/L A-a O2 Difference mm/Hg Respiratory Index Hgb O2 Saturation (95.0-98.0) % Sodium (132-148) mmol/l Chloride (98-107) mmol/L Glucose (75-110) mg/dl Lactate (0.7-2.1) mmol/L Vent Mode Mechanical Rate FiO2 % Tidal Volume PEEP Potassium (3.6-5.2) mmol/L Carbon Dioxide (22-30) mmol/L Anion Gap (10-20) BUN (9-20) mg/dL Creatinine (0.8-1.5) mg/dL Est GFR ( Amer) Est GFR (Non-Af Amer) POC Glucose (mg/dL) (65-110) mg/dL Random Glucose (75-110) mg/dL Calcium (8.6-10.4) mg/dl Phosphorus (2.5-4.5) mg/dL Magnesium (1.6-2.3) mg/dL Total Bilirubin (0.2-1.3) mg/dL AST (17-59) U/L ALT (21-72) U/L Alkaline Phosphatase (38-126) U/L Total Protein (6.3-8.3) g/dL Albumin (3.5-5.0) g/dL Globulin (2.2-3.9) gm/dL Albumin/Globulin Ratio (1.0-2.1) Arterial Blood Potassium (3.6-5.2) mmol/L C. difficile Ag & Toxin Negative (NEGATIVE) Blood Type Antibody Screen Laboratory Results - last 24 hr 03/15/18 03/15/18 03/15/18 06:00 15:13 17:15 WBC RBC Hgb Hct MCV MCH MCHC RDW Plt Count MPV Neut % (Auto) Lymph % (Auto) [place] % (Auto) Eos % (Auto) Baso % (Auto) Neut # (Auto) Lymph # (Auto) [place] # (Auto) Eos # (Auto) Baso # (Auto) Neutrophils % (Manual) Lymphocytes % (Manual) Monocytes % (Manual) Platelet Estimate Anisocytosis (manual) APTT Puncture Site Na pCO2 37 pO2 413 H HCO3 18.7 L ABG pH 7.29 L ABG Total CO2 18.9 L ABG O2 Saturation 100.7 H ABG Base Excess -8.1 L ABG Hemoglobin ABG Carboxyhemoglobin POC ABG HHb (Measured) ABG Methemoglobin Lionel Test N ABG Potassium 5.1 A-a O2 Difference Respiratory Index Hgb O2 Saturation Sodium 146.0 Chloride 123.0 H Glucose 162 H Lactate 1.4 Vent Mode Mechanical Rate FiO2 Tidal Volume PEEP Potassium Carbon Dioxide Anion Gap BUN Creatinine Est GFR ( Amer) Est GFR (Non-Af Amer) POC Glucose (mg/dL) Random Glucose Calcium Phosphorus Magnesium Total Bilirubin AST ALT Alkaline Phosphatase Total Protein Albumin Globulin Albumin/Globulin Ratio Arterial Blood Potassium 5.1 C. difficile Ag & Toxin Negative Blood Type O POSITIVE Antibody Screen Negative 03/15/18 03/15/18 03/15/18 17:55 19:50 20:30 WBC RBC Hgb Hct MCV MCH MCHC RDW Plt Count MPV Neut % (Auto) Lymph % (Auto) Frontier % (Auto) Eos % (Auto) Baso % (Auto) Neut # (Auto) Lymph # (Auto) Frontier # (Auto) Eos # (Auto) Baso # (Auto) Neutrophils % (Manual) Lymphocytes % (Manual) Monocytes % (Manual) Platelet Estimate Anisocytosis (manual) APTT Puncture Site Glendy pCO2 24 L pO2 341 H HCO3 25.8 ABG pH 7.58 H ABG Total CO2 23.2 ABG O2 Saturation 99.9 H ABG Base Excess 1.1 ABG Hemoglobin 8.4 L ABG Carboxyhemoglobin 1.3 POC ABG HHb (Measured) 0.1 ABG Methemoglobin 0.6 Lionel Test Na ABG Potassium A-a O2 Difference 57.0 Respiratory Index 0.2 Hgb O2 Saturation 97.9 Sodium Chloride Glucose Lactate Vent Mode Prvc Mechanical Rate 20 FiO2 60.0 Tidal Volume 500 PEEP 5 Potassium Carbon Dioxide Anion Gap BUN Creatinine Est GFR ( Amer) Est GFR (Non-Af Amer) POC Glucose (mg/dL) 158 H 114 H Random Glucose Calcium Phosphorus Magnesium Total Bilirubin AST ALT Alkaline Phosphatase Total Protein Albumin Globulin Albumin/Globulin Ratio Arterial Blood Potassium C. difficile Ag & Toxin Blood Type Antibody Screen 03/15/18 03/16/18 03/16/18 23:29 03:14 03:14 WBC 10.5 RBC 2.33 L Hgb 6.9 L Hct 20.8 L MCV 89.1 MCH 29.4 MCHC 33.0 RDW 15.8 H Plt Count 155 MPV 6.6 L Neut % (Auto) 83.8 H Lymph % (Auto) 9.3 L Frontier % (Auto) 5.6 Eos % (Auto) 0.8 Baso % (Auto) 0.5 Neut # (Auto) 8.8 H Lymph # (Auto) 1.0 Frontier # (Auto) 0.6 Eos # (Auto) 0.1 Baso # (Auto) 0.1 Neutrophils % (Manual) 88 H Lymphocytes % (Manual) 8 L Monocytes % (Manual) 4 Platelet Estimate Normal Anisocytosis (manual) Slight APTT Puncture Site pCO2 pO2 HCO3 ABG pH ABG Total CO2 ABG O2 Saturation ABG Base Excess ABG Hemoglobin ABG Carboxyhemoglobin POC ABG HHb (Measured) ABG Methemoglobin Lionel Test ABG Potassium A-a O2 Difference Respiratory Index Hgb O2 Saturation Sodium 146 Chloride 116 H Glucose Lactate Vent Mode Mechanical Rate FiO2 Tidal Volume PEEP Potassium 4.3 Carbon Dioxide 19 L Anion Gap 15 BUN 50 H Creatinine 4.4 H Est GFR ( Amer) 16 Est GFR (Non-Af Amer) 13 POC Glucose (mg/dL) 128 H Random Glucose 121 H Calcium 7.0 L Phosphorus 3.0 Magnesium 1.9 Total Bilirubin 0.7 AST 76 H D ALT 51 Alkaline Phosphatase 117 Total Protein 5.5 L Albumin 2.5 L D Globulin 3.0 Albumin/Globulin Ratio 0.8 L Arterial Blood Potassium C. difficile Ag & Toxin Blood Type Antibody Screen 03/16/18 03/16/18 03/16/18 03:14 03:43 05:35 WBC RBC Hgb Hct MCV MCH MCHC RDW Plt Count MPV Neut % (Auto) Lymph % (Auto) Frontier % (Auto) Eos % (Auto) Baso % (Auto) Neut # (Auto) Lymph # (Auto) Frontier # (Auto) Eos # (Auto) Baso # (Auto) Neutrophils % (Manual) Lymphocytes % (Manual) Monocytes % (Manual) Platelet Estimate Anisocytosis (manual) APTT 42 H D Puncture Site Glendy pCO2 28 L pO2 168 H HCO3 24.0 ABG pH 7.49 H ABG Total CO2 22.2 ABG O2 Saturation 99.6 H ABG Base Excess -1.2 ABG Hemoglobin 10.5 L ABG Carboxyhemoglobin 1.6 H POC ABG HHb (Measured) 0.4 ABG Methemoglobin 0.5 Lionel Test Na ABG Potassium A-a O2 Difference 82.0 Respiratory Index 0.5 Hgb O2 Saturation 97.5 Sodium Chloride Glucose Lactate Vent Mode Prvc Mechanical Rate 14 FiO2 40.0 Tidal Volume 400 PEEP 5 Potassium Carbon Dioxide Anion Gap BUN Creatinine Est GFR ( Amer) Est GFR (Non-Af Amer) POC Glucose (mg/dL) 107 Random Glucose Calcium Phosphorus Magnesium Total Bilirubin AST ALT Alkaline Phosphatase Total Protein Albumin Globulin Albumin/Globulin Ratio Arterial Blood Potassium C. difficile Ag & Toxin Blood Type Antibody Screen 03/16/18 03/16/18 03/16/18 05:50 07:29 10:48 WBC 11.5 H RBC 2.36 L Hgb 7.0 L Hct 21.1 L MCV 89.6 MCH 29.7 MCHC 33.2 RDW 15.8 H Plt Count 149 MPV 6.8 L Neut % (Auto) 82.9 H Lymph % (Auto) 11.0 L Frontier % (Auto) 5.0 Eos % (Auto) 0.7 Baso % (Auto) 0.4 Neut # (Auto) 9.5 H Lymph # (Auto) 1.3 Frontier # (Auto) 0.6 Eos # (Auto) 0.1 Baso # (Auto) 0.0 Neutrophils % (Manual) Lymphocytes % (Manual) Monocytes % (Manual) Platelet Estimate Anisocytosis (manual) APTT 59 H D Puncture Site pCO2 pO2 HCO3 ABG pH ABG Total CO2 ABG O2 Saturation ABG Base Excess ABG Hemoglobin ABG Carboxyhemoglobin POC ABG HHb (Measured) ABG Methemoglobin Lionel Test ABG Potassium A-a O2 Difference Respiratory Index Hgb O2 Saturation Sodium Chloride Glucose Lactate Vent Mode Mechanical Rate FiO2 Tidal Volume PEEP Potassium Carbon Dioxide Anion Gap BUN Creatinine Est GFR ( Amer) Est GFR (Non-Af Amer) POC Glucose (mg/dL) 99 Random Glucose Calcium Phosphorus Magnesium Total Bilirubin AST ALT Alkaline Phosphatase Total Protein Albumin Globulin Albumin/Globulin Ratio Arterial Blood Potassium C. difficile Ag & Toxin Blood Type Antibody Screen 03/16/18 11:22 WBC RBC Hgb Hct MCV MCH MCHC RDW Plt Count MPV Neut % (Auto) Lymph % (Auto) Frontier % (Auto) Eos % (Auto) Baso % (Auto) Neut # (Auto) Lymph # (Auto) Frontier # (Auto) Eos # (Auto) Baso # (Auto) Neutrophils % (Manual) Lymphocytes % (Manual) Monocytes % (Manual) Platelet Estimate Anisocytosis (manual) APTT Puncture Site pCO2 pO2 HCO3 ABG pH ABG Total CO2 ABG O2 Saturation ABG Base Excess ABG Hemoglobin ABG Carboxyhemoglobin POC ABG HHb (Measured) ABG Methemoglobin Lionel Test ABG Potassium A-a O2 Difference Respiratory Index Hgb O2 Saturation Sodium Chloride Glucose Lactate Vent Mode Mechanical Rate FiO2 Tidal Volume PEEP Potassium Carbon Dioxide Anion Gap BUN Creatinine Est GFR ( Amer) Est GFR (Non-Af Amer) POC Glucose (mg/dL) 109 Random Glucose Calcium Phosphorus Magnesium Total Bilirubin AST ALT Alkaline Phosphatase Total Protein Albumin Globulin Albumin/Globulin Ratio Arterial Blood Potassium C. difficile Ag & Toxin Blood Type Antibody Screen Fingerstick Blood Sugar Results: 162 Review of Systems - Review of Systems Systems not reviewed;Unavailable: Acuity of Condition Critical Care Progress Note - Nutrition Nutrition: Nutrition Category Date Time Status NPO Diet [DIET] Diets 03/14/18 Breakfast Active Assessment/Plan - Assessment and Plan (Free Text) Assessment: This is a 72-year-old male with PMH obtained from previous records which include, but is not limited to: Anemia, Dementia, Atrial Fibrillation, CKD stage 4, CHF, Diabetes Mellitus, who [facility] for altered mental status. Full history could not be obtained at the time of the exam due to patient being minimally responsive. While in the ED: CODE SEPSIS was called 2/2 elevated lactic acid. Vascular Surgery was consulted (Dr. Ceron.) Patient was found to be hyperkalemic with positive EKG changes and was treated in ED. ICU team consulted for need for emergent dialysis. Please Note, ROS could not be obtained due to clinical condition. Patient underwent emergent dialysis via left femoral shiley. Since 03/15, shiley removed. Permacath placed by Dr. Ceron. Patient remains on vent since 03/15. Patient is currently DNR. Hospice being decided. Renal: Stage 4 CKD; emergent dialysis on 03/14 Hyperkalemia, improved = 4.3 Metabolic acidosis (ABG) - CBC, CMP, Mg, Phos Acute Renal Failure - Nephrology consulted for emergent dialysis (Dr. Jean,) recommendations appreciated * on amiodarone gtt, IV fluids * oliguric CV: - CXR obtained - EKG obtained Critical Limb Ischemia (left) - Heparin 25,000 Units @12units/kg/hr - Surgery consulted (Dr. Ceron) * Patient s/p embolectomy 03/15 * Permacath placed on right subclavian 03/15 Pulm: - Patient intubated as of 03/15 - Monitor GI/: - Colostomy bag on right in tact - NPO except meds - Tube Feedings with Glucerna - Monitor I&O - Protonix 40mg IVP daily Neuro: - Patient is able to be aroused but minimally responsive on exam - Monitor neuro checks ID: - Leukocytosis on admission - Lactate elevated; resolved (=1.4 on 03/15) - Continue Zosyn - Discontinue Vanco Patient seen and case discussed with Dr. Jarred Carrillo PGY1 <Elder Stern S - Last Filed: 03/16/18 17:32> CCU Subjective - Physician Review Critical Care Time Spent (in minutes): 45 CCU Objective - Vital Signs / Intake & Output Vital Signs (Last 4 hours): Vital Signs Temp Pulse Resp BP BP Pulse Ox 03/16/18 17:08 118 H 27 H 78/45 L 100 03/16/18 17:03 124 H 20 72/44 L 100 03/16/18 17:02 121 H 22 72/44 L 100 03/16/18 17:00 124 H 25 H 67/38 L 78/42 L 100 03/16/18 16:54 98.0 F 128 H 22 67/38 L 03/16/18 16:53 133 H 25 H 67/38 L 100 03/16/18 16:38 122 H 21 58/30 L 100 03/16/18 16:30 121 H 25 H 77 L 03/16/18 16:29 135 H 26 H 59/29 L 92 L 03/16/18 16:24 98.1 F 24 L 128 H 58/30 L 03/16/18 16:09 98.0 F 141 H 23 67/40 L 100 03/16/18 16:08 127 H 22 71/45 L 86 L 03/16/18 16:00 97.9 F 124 H 26 H 67/40 L 100 03/16/18 15:54 97.8 F 23 L 131 H 93/49 L 03/16/18 15:30 131 H 27 H 100 03/16/18 15:28 136 H 27 H 83/43 L 100 03/16/18 15:00 137 H 26 H 100/58 L 100 03/16/18 14:59 140 H 25 H 82/47 L 100 03/16/18 14:57 145 H 25 H 79/53 L 100 03/16/18 14:41 125 H 23 82/47 L 100 03/16/18 14:30 130 H 22 100 03/16/18 14:27 125 H 19 78/42 L 03/16/18 14:22 139 H 27 H 71/47 L 100 03/16/18 14:00 133 H 20 92/47 L 100 03/16/18 13:58 132 H 23 82/46 L 100 Intake and Output (Last 8hrs): Intake & Output 03/16/18 03/16/18 03/16/18 06:59 14:59 22:59 Intake Total 1450.5 1431.6 332.9 Output Total 1150 695 280 Balance 300.5 736.6 52.9 Weight 106 lb 9.6 oz Intake: IV 100 13 Intake, IV Amount 1300.5 1001.6 199.9 L Thumb 50.5 35 Right Antecubital 750 900 100 Right Hand 66.6 99.9 Rt AC #18 500 Oral 60 30 Tube Feeding 150 270 90 Blood Product 0 Red Blood Cells Cpd As1 0 Lr Unit [id number] Output: Urine 200 95 30 Urethral ([place]) 200 95 30 Stool 950 600 250 - Medications Active Medications: Active Medications Generic Name Dose Route Start Last Admin Trade Name Freq PRN Reason Stop Dose Admin Albuterol/Ipratropium 3 ml 03/14/18 20:00 03/16/18 14:34 Duoneb 3 Mg/0.5 Mg (3 Ml) Ud INH 3 ml RQ6 NEL Administration Piperacillin Sod/Tazobactam 100 mls @ 200 mls/hr 03/15/18 02:00 03/16/18 09:59 Sod 2.25 gm/ Sodium Chloride IVPB 200 mls/hr Q8H NEL Administration Protocol Sodium Chloride 1,000 mls @ 100 mls/hr 03/15/18 00:15 03/16/18 16:39 Sodium Chloride 0.9% IV Not Given .Q10H NEL Amiodarone HCl 900 mg/ 500 mls @ 33.33 mls/hr 03/16/18 11:40 03/16/18 12:06 Dextrose IV 03/17/18 02:40 33.33 mls/hr .Q15H1M ONE Administration Protocol 1 MG/MIN Phenylephrine HCl 30 mg/ 253 mls @ 10.12 mls/hr 03/16/18 16:12 03/16/18 17:09 Sodium Chloride IV 40 mcg/min .Q24H PRN 20.24 mls/hr TITRATE PER MD ORDER Titration Protocol 20 MCG/MIN Amiodarone HCl 900 mg/ 500 mls @ 16.67 mls/hr 03/16/18 18:05 Dextrose IV 03/17/18 18:04 .Q24H ONE Protocol 0.5 MG/MIN Insulin Human Regular 0 unit 03/14/18 20:36 03/16/18 16:05 Novolin R SC 1 units Q4 NEL Administration Protocol Pantoprazole Sodium 40 mg 03/15/18 10:00 03/16/18 09:59 Protonix Inj IVP 40 mg DAILY NEL Administration Pneumococcal Polyvalent Vaccine 0.5 ml 03/19/18 10:00 Pneumovax 23 Vaccine IM 03/19/18 10:01 .ONCE ONE - Patient Studies Lab Studies: Microbiology Studies 03/14/18 15:50 Blood Culture - Preliminary Blood NO GROWTH AFTER 48 HOURS 03/14/18 18:05 Urine Culture - Preliminary Urine,Catheterized Gram Negative Jerson Gram Negative Jerson#2 03/14/18 19:26 MRSA Culture (Admit) - Final Nose MRSA NOT DETECTED 03/14/18 17:56 Blood Culture - Preliminary Blood NO GROWTH AFTER 24 HOURS Lab Studies 03/16/18 03/16/18 03/16/18 Range/Units 11:22 10:48 07:29 WBC (4.8-10.8) K/uL RBC (4.40-5.90) Mil/uL Hgb (12.0-18.0) g/dL Hct (35.0-51.0) % MCV (80.0-94.0) fL MCH (27.0-31.0) pg MCHC (33.0-37.0) g/dL RDW (11.5-14.5) % Plt Count (130-400) K/uL MPV (7.2-11.7) fL Neut % (Auto) (50.0-75.0) % Lymph % (Auto) (20.0-40.0) % Frontier % (Auto) (0.0-10.0) % Eos % (Auto) (0.0-4.0) % Baso % (Auto) (0.0-2.0) % Neut # (Auto) (1.8-7.0) K/uL Lymph # (Auto) (1.0-4.3) K/uL [place] # (Auto) (0.0-0.8) K/uL Eos # (Auto) (0.0-0.7) K/uL Baso # (Auto) (0.0-0.2) K/uL Neutrophils % (Manual) (50-75) % Lymphocytes % (Manual) (20-40) % Monocytes % (Manual) (0-10) % Platelet Estimate (NORMAL) Anisocytosis (manual) APTT 59 H D (21-34) SECONDS Puncture Site pCO2 (35-45) mm/Hg pO2 (80-100) mm/Hg HCO3 (21-28) mmol/L ABG pH (7.35-7.45) ABG Total CO2 (22-28) mmol/L ABG O2 Saturation (95-98) % ABG Base Excess (-2.0-3.0) mmol/L ABG Hemoglobin (11.7-17.4) g/dL ABG Carboxyhemoglobin (0.5-1.5) % POC ABG HHb (Measured) (0.0-5.0) % ABG Methemoglobin (0.0-3.0) % Lionel Test A-a O2 Difference mm/Hg Respiratory Index Hgb O2 Saturation (95.0-98.0) % Vent Mode Mechanical Rate FiO2 % Tidal Volume PEEP Sodium (132-148) mmol/L Potassium (3.6-5.2) mmol/L Chloride (98-107) mmol/L Carbon Dioxide (22-30) mmol/L Anion Gap (10-20) BUN (9-20) mg/dL Creatinine (0.8-1.5) mg/dL Est GFR ( Amer) Est GFR (Non-Af Amer) POC Glucose (mg/dL) 109 99 (65-110) mg/dL Random Glucose (75-110) mg/dL Calcium (8.6-10.4) mg/dl Phosphorus (2.5-4.5) mg/dL Magnesium (1.6-2.3) mg/dL Total Bilirubin (0.2-1.3) mg/dL AST (17-59) U/L ALT (21-72) U/L Alkaline Phosphatase (38-126) U/L Total Protein (6.3-8.3) g/dL Albumin (3.5-5.0) g/dL Globulin (2.2-3.9) gm/dL Albumin/Globulin Ratio (1.0-2.1) C. difficile Ag & Toxin (NEGATIVE) Blood Type Antibody Screen 03/16/18 03/16/18 03/16/18 Range/Units 05:50 05:35 03:43 WBC 11.5 H (4.8-10.8) K/uL RBC 2.36 L (4.40-5.90) Mil/uL Hgb 7.0 L (12.0-18.0) g/dL Hct 21.1 L (35.0-51.0) % MCV 89.6 (80.0-94.0) fL MCH 29.7 (27.0-31.0) pg MCHC 33.2 (33.0-37.0) g/dL RDW 15.8 H (11.5-14.5) % Plt Count 149 (130-400) K/uL MPV 6.8 L (7.2-11.7) fL Neut % (Auto) 82.9 H (50.0-75.0) % Lymph % (Auto) 11.0 L (20.0-40.0) % Frontier % (Auto) 5.0 (0.0-10.0) % Eos % (Auto) 0.7 (0.0-4.0) % Baso % (Auto) 0.4 (0.0-2.0) % Neut # (Auto) 9.5 H (1.8-7.0) K/uL Lymph # (Auto) 1.3 (1.0-4.3) K/uL Frontier # (Auto) 0.6 (0.0-0.8) K/uL Eos # (Auto) 0.1 (0.0-0.7) K/uL Baso # (Auto) 0.0 (0.0-0.2) K/uL Neutrophils % (Manual) (50-75) % Lymphocytes % (Manual) (20-40) % Monocytes % (Manual) (0-10) % Platelet Estimate (NORMAL) Anisocytosis (manual) APTT (21-34) SECONDS Puncture Site [place] pCO2 28 L (35-45) mm/Hg pO2 168 H (80-100) mm/Hg HCO3 24.0 (21-28) mmol/L ABG pH 7.49 H (7.35-7.45) ABG Total CO2 22.2 (22-28) mmol/L ABG O2 Saturation 99.6 H (95-98) % ABG Base Excess -1.2 (-2.0-3.0) mmol/L ABG Hemoglobin 10.5 L (11.7-17.4) g/dL ABG Carboxyhemoglobin 1.6 H (0.5-1.5) % POC ABG HHb (Measured) 0.4 (0.0-5.0) % ABG Methemoglobin 0.5 (0.0-3.0) % Lionel Test Na A-a O2 Difference 82.0 mm/Hg Respiratory Index 0.5 Hgb O2 Saturation 97.5 (95.0-98.0) % Vent Mode Prvc Mechanical Rate 14 FiO2 40.0 % Tidal Volume 400 PEEP 5 Sodium (132-148) mmol/L Potassium (3.6-5.2) mmol/L Chloride (98-107) mmol/L Carbon Dioxide (22-30) mmol/L Anion Gap (10-20) BUN (9-20) mg/dL Creatinine (0.8-1.5) mg/dL Est GFR ( Amer) Est GFR (Non-Af Amer) POC Glucose (mg/dL) 107 (65-110) mg/dL Random Glucose (75-110) mg/dL Calcium (8.6-10.4) mg/dl Phosphorus (2.5-4.5) mg/dL Magnesium (1.6-2.3) mg/dL Total Bilirubin (0.2-1.3) mg/dL AST (17-59) U/L ALT (21-72) U/L Alkaline Phosphatase (38-126) U/L Total Protein (6.3-8.3) g/dL Albumin (3.5-5.0) g/dL Globulin (2.2-3.9) gm/dL Albumin/Globulin Ratio (1.0-2.1) C. difficile Ag & Toxin (NEGATIVE) Blood Type Antibody Screen 03/16/18 03/16/18 03/16/18 Range/Units 03:14 03:14 03:14 WBC 10.5 (4.8-10.8) K/uL RBC 2.33 L (4.40-5.90) Mil/uL Hgb 6.9 L (12.0-18.0) g/dL Hct 20.8 L (35.0-51.0) % MCV 89.1 (80.0-94.0) fL MCH 29.4 (27.0-31.0) pg MCHC 33.0 (33.0-37.0) g/dL RDW 15.8 H (11.5-14.5) % Plt Count 155 (130-400) K/uL MPV 6.6 L (7.2-11.7) fL Neut % (Auto) 83.8 H (50.0-75.0) % Lymph % (Auto) 9.3 L (20.0-40.0) % Frontier % (Auto) 5.6 (0.0-10.0) % Eos % (Auto) 0.8 (0.0-4.0) % Baso % (Auto) 0.5 (0.0-2.0) % Neut # (Auto) 8.8 H (1.8-7.0) K/uL Lymph # (Auto) 1.0 (1.0-4.3) K/uL [place] # (Auto) 0.6 (0.0-0.8) K/uL Eos # (Auto) 0.1 (0.0-0.7) K/uL Baso # (Auto) 0.1 (0.0-0.2) K/uL Neutrophils % (Manual) 88 H (50-75) % Lymphocytes % (Manual) 8 L (20-40) % Monocytes % (Manual) 4 (0-10) % Platelet Estimate Normal (NORMAL) Anisocytosis (manual) Slight APTT 42 H D (21-34) SECONDS Puncture Site pCO2 (35-45) mm/Hg pO2 (80-100) mm/Hg HCO3 (21-28) mmol/L ABG pH (7.35-7.45) ABG Total CO2 (22-28) mmol/L ABG O2 Saturation (95-98) % ABG Base Excess (-2.0-3.0) mmol/L ABG Hemoglobin (11.7-17.4) g/dL ABG Carboxyhemoglobin (0.5-1.5) % POC ABG HHb (Measured) (0.0-5.0) % ABG Methemoglobin (0.0-3.0) % Lionel Test A-a O2 Difference mm/Hg Respiratory Index Hgb O2 Saturation (95.0-98.0) % Vent Mode Mechanical Rate FiO2 % Tidal Volume PEEP Sodium 146 (132-148) mmol/L Potassium 4.3 (3.6-5.2) mmol/L Chloride 116 H (98-107) mmol/L Carbon Dioxide 19 L (22-30) mmol/L Anion Gap 15 (10-20) BUN 50 H (9-20) mg/dL Creatinine 4.4 H (0.8-1.5) mg/dL Est GFR ( Amer) 16 Est GFR (Non-Af Amer) 13 POC Glucose (mg/dL) (65-110) mg/dL Random Glucose 121 H (75-110) mg/dL Calcium 7.0 L (8.6-10.4) mg/dl Phosphorus 3.0 (2.5-4.5) mg/dL Magnesium 1.9 (1.6-2.3) mg/dL Total Bilirubin 0.7 (0.2-1.3) mg/dL AST 76 H D (17-59) U/L ALT 51 (21-72) U/L Alkaline Phosphatase 117 (38-126) U/L Total Protein 5.5 L (6.3-8.3) g/dL Albumin 2.5 L D (3.5-5.0) g/dL Globulin 3.0 (2.2-3.9) gm/dL Albumin/Globulin Ratio 0.8 L (1.0-2.1) C. difficile Ag & Toxin (NEGATIVE) Blood Type Antibody Screen 03/15/18 03/15/18 03/15/18 Range/Units 23:29 20:30 19:50 WBC (4.8-10.8) K/uL RBC (4.40-5.90) Mil/uL Hgb (12.0-18.0) g/dL Hct (35.0-51.0) % MCV (80.0-94.0) fL MCH (27.0-31.0) pg MCHC (33.0-37.0) g/dL RDW (11.5-14.5) % Plt Count (130-400) K/uL MPV (7.2-11.7) fL Neut % (Auto) (50.0-75.0) % Lymph % (Auto) (20.0-40.0) % [place] % (Auto) (0.0-10.0) % Eos % (Auto) (0.0-4.0) % Baso % (Auto) (0.0-2.0) % Neut # (Auto) (1.8-7.0) K/uL Lymph # (Auto) (1.0-4.3) K/uL [place] # (Auto) (0.0-0.8) K/uL Eos # (Auto) (0.0-0.7) K/uL Baso # (Auto) (0.0-0.2) K/uL Neutrophils % (Manual) (50-75) % Lymphocytes % (Manual) (20-40) % Monocytes % (Manual) (0-10) % Platelet Estimate (NORMAL) Anisocytosis (manual) APTT (21-34) SECONDS Puncture Site [place] pCO2 24 L (35-45) mm/Hg pO2 341 H (80-100) mm/Hg HCO3 25.8 (21-28) mmol/L ABG pH 7.58 H (7.35-7.45) ABG Total CO2 23.2 (22-28) mmol/L ABG O2 Saturation 99.9 H (95-98) % ABG Base Excess 1.1 (-2.0-3.0) mmol/L ABG Hemoglobin 8.4 L (11.7-17.4) g/dL ABG Carboxyhemoglobin 1.3 (0.5-1.5) % POC ABG HHb (Measured) 0.1 (0.0-5.0) % ABG Methemoglobin 0.6 (0.0-3.0) % Lionel Test Na A-a O2 Difference 57.0 mm/Hg Respiratory Index 0.2 Hgb O2 Saturation 97.9 (95.0-98.0) % Vent Mode Prvc Mechanical Rate 20 FiO2 60.0 % Tidal Volume 500 PEEP 5 Sodium (132-148) mmol/L Potassium (3.6-5.2) mmol/L Chloride (98-107) mmol/L Carbon Dioxide (22-30) mmol/L Anion Gap (10-20) BUN (9-20) mg/dL Creatinine (0.8-1.5) mg/dL Est GFR ( Amer) Est GFR (Non-Af Amer) POC Glucose (mg/dL) 128 H 114 H (65-110) mg/dL Random Glucose (75-110) mg/dL Calcium (8.6-10.4) mg/dl Phosphorus (2.5-4.5) mg/dL Magnesium (1.6-2.3) mg/dL Total Bilirubin (0.2-1.3) mg/dL AST (17-59) U/L ALT (21-72) U/L Alkaline Phosphatase (38-126) U/L Total Protein (6.3-8.3) g/dL Albumin (3.5-5.0) g/dL Globulin (2.2-3.9) gm/dL Albumin/Globulin Ratio (1.0-2.1) C. difficile Ag & Toxin (NEGATIVE) Blood Type Antibody Screen 03/15/18 03/15/18 03/15/18 Range/Units 17:55 15:13 06:00 WBC (4.8-10.8) K/uL RBC (4.40-5.90) Mil/uL Hgb (12.0-18.0) g/dL Hct (35.0-51.0) % MCV (80.0-94.0) fL MCH (27.0-31.0) pg MCHC (33.0-37.0) g/dL RDW (11.5-14.5) % Plt Count (130-400) K/uL MPV (7.2-11.7) fL Neut % (Auto) (50.0-75.0) % Lymph % (Auto) (20.0-40.0) % [place] % (Auto) (0.0-10.0) % Eos % (Auto) (0.0-4.0) % Baso % (Auto) (0.0-2.0) % Neut # (Auto) (1.8-7.0) K/uL Lymph # (Auto) (1.0-4.3) K/uL [place] # (Auto) (0.0-0.8) K/uL Eos # (Auto) (0.0-0.7) K/uL Baso # (Auto) (0.0-0.2) K/uL Neutrophils % (Manual) (50-75) % Lymphocytes % (Manual) (20-40) % Monocytes % (Manual) (0-10) % Platelet Estimate (NORMAL) Anisocytosis (manual) APTT (21-34) SECONDS Puncture Site pCO2 (35-45) mm/Hg pO2 (80-100) mm/Hg HCO3 (21-28) mmol/L ABG pH (7.35-7.45) ABG Total CO2 (22-28) mmol/L ABG O2 Saturation (95-98) % ABG Base Excess (-2.0-3.0) mmol/L ABG Hemoglobin (11.7-17.4) g/dL ABG Carboxyhemoglobin (0.5-1.5) % POC ABG HHb (Measured) (0.0-5.0) % ABG Methemoglobin (0.0-3.0) % Lionel Test A-a O2 Difference mm/Hg Respiratory Index Hgb O2 Saturation (95.0-98.0) % Vent Mode Mechanical Rate FiO2 % Tidal Volume PEEP Sodium (132-148) mmol/L Potassium (3.6-5.2) mmol/L Chloride (98-107) mmol/L Carbon Dioxide (22-30) mmol/L Anion Gap (10-20) BUN (9-20) mg/dL Creatinine (0.8-1.5) mg/dL Est GFR ( Amer) Est GFR (Non-Af Amer) POC Glucose (mg/dL) 158 H (65-110) mg/dL Random Glucose (75-110) mg/dL Calcium (8.6-10.4) mg/dl Phosphorus (2.5-4.5) mg/dL Magnesium (1.6-2.3) mg/dL Total Bilirubin (0.2-1.3) mg/dL AST (17-59) U/L ALT (21-72) U/L Alkaline Phosphatase (38-126) U/L Total Protein (6.3-8.3) g/dL Albumin (3.5-5.0) g/dL Globulin (2.2-3.9) gm/dL Albumin/Globulin Ratio (1.0-2.1) C. difficile Ag & Toxin Negative (NEGATIVE) Blood Type O POSITIVE Antibody Screen Negative Laboratory Results - last 24 hr 03/15/18 03/15/18 03/15/18 06:00 15:13 17:55 WBC RBC Hgb Hct MCV MCH MCHC RDW Plt Count MPV Neut % (Auto) Lymph % (Auto) [place] % (Auto) Eos % (Auto) Baso % (Auto) Neut # (Auto) Lymph # (Auto) [place] # (Auto) Eos # (Auto) Baso # (Auto) Neutrophils % (Manual) Lymphocytes % (Manual) Monocytes % (Manual) Platelet Estimate Anisocytosis (manual) APTT Puncture Site pCO2 pO2 HCO3 ABG pH ABG Total CO2 ABG O2 Saturation ABG Base Excess ABG Hemoglobin ABG Carboxyhemoglobin POC ABG HHb (Measured) ABG Methemoglobin Lionel Test A-a O2 Difference Respiratory Index Hgb O2 Saturation Vent Mode Mechanical Rate FiO2 Tidal Volume PEEP Sodium Potassium Chloride Carbon Dioxide Anion Gap BUN Creatinine Est GFR ( Amer) Est GFR (Non-Af Amer) POC Glucose (mg/dL) 158 H Random Glucose Calcium Phosphorus Magnesium Total Bilirubin AST ALT Alkaline Phosphatase Total Protein Albumin Globulin Albumin/Globulin Ratio C. difficile Ag & Toxin Negative Blood Type O POSITIVE Antibody Screen Negative 03/15/18 03/15/18 03/15/18 19:50 20:30 23:29 WBC RBC Hgb Hct MCV MCH MCHC RDW Plt Count MPV Neut % (Auto) Lymph % (Auto) [place] % (Auto) Eos % (Auto) Baso % (Auto) Neut # (Auto) Lymph # (Auto) [place] # (Auto) Eos # (Auto) Baso # (Auto) Neutrophils % (Manual) Lymphocytes % (Manual) Monocytes % (Manual) Platelet Estimate Anisocytosis (manual) APTT Puncture Site [place] pCO2 24 L pO2 341 H HCO3 25.8 ABG pH 7.58 H ABG Total CO2 23.2 ABG O2 Saturation 99.9 H ABG Base Excess 1.1 ABG Hemoglobin 8.4 L ABG Carboxyhemoglobin 1.3 POC ABG HHb (Measured) 0.1 ABG Methemoglobin 0.6 Lionel Test Na A-a O2 Difference 57.0 Respiratory Index 0.2 Hgb O2 Saturation 97.9 Vent Mode Prvc Mechanical Rate 20 FiO2 60.0 Tidal Volume 500 PEEP 5 Sodium Potassium Chloride Carbon Dioxide Anion Gap BUN Creatinine Est GFR ( Amer) Est GFR (Non-Af Amer) POC Glucose (mg/dL) 114 H 128 H Random Glucose Calcium Phosphorus Magnesium Total Bilirubin AST ALT Alkaline Phosphatase Total Protein Albumin Globulin Albumin/Globulin Ratio C. difficile Ag & Toxin Blood Type Antibody Screen 03/16/18 03/16/18 03/16/18 03:14 03:14 03:14 WBC 10.5 RBC 2.33 L Hgb 6.9 L Hct 20.8 L MCV 89.1 MCH 29.4 MCHC 33.0 RDW 15.8 H Plt Count 155 MPV 6.6 L Neut % (Auto) 83.8 H Lymph % (Auto) 9.3 L [place] % (Auto) 5.6 Eos % (Auto) 0.8 Baso % (Auto) 0.5 Neut # (Auto) 8.8 H Lymph # (Auto) 1.0 [place] # (Auto) 0.6 Eos # (Auto) 0.1 Baso # (Auto) 0.1 Neutrophils % (Manual) 88 H Lymphocytes % (Manual) 8 L Monocytes % (Manual) 4 Platelet Estimate Normal Anisocytosis (manual) Slight APTT 42 H D Puncture Site pCO2 pO2 HCO3 ABG pH ABG Total CO2 ABG O2 Saturation ABG Base Excess ABG Hemoglobin ABG Carboxyhemoglobin POC ABG HHb (Measured) ABG Methemoglobin Lionel Test A-a O2 Difference Respiratory Index Hgb O2 Saturation Vent Mode Mechanical Rate FiO2 Tidal Volume PEEP Sodium 146 Potassium 4.3 Chloride 116 H Carbon Dioxide 19 L Anion Gap 15 BUN 50 H Creatinine 4.4 H Est GFR ( Amer) 16 Est GFR (Non-Af Amer) 13 POC Glucose (mg/dL) Random Glucose 121 H Calcium 7.0 L Phosphorus 3.0 Magnesium 1.9 Total Bilirubin 0.7 AST 76 H D ALT 51 Alkaline Phosphatase 117 Total Protein 5.5 L Albumin 2.5 L D Globulin 3.0 Albumin/Globulin Ratio 0.8 L C. difficile Ag & Toxin Blood Type Antibody Screen 03/16/18 03/16/18 03/16/18 03:43 05:35 05:50 WBC 11.5 H RBC 2.36 L Hgb 7.0 L Hct 21.1 L MCV 89.6 MCH 29.7 MCHC 33.2 RDW 15.8 H Plt Count 149 MPV 6.8 L Neut % (Auto) 82.9 H Lymph % (Auto) 11.0 L [place] % (Auto) 5.0 Eos % (Auto) 0.7 Baso % (Auto) 0.4 Neut # (Auto) 9.5 H Lymph # (Auto) 1.3 [place] # (Auto) 0.6 Eos # (Auto) 0.1 Baso # (Auto) 0.0 Neutrophils % (Manual) Lymphocytes % (Manual) Monocytes % (Manual) Platelet Estimate Anisocytosis (manual) APTT Puncture Site [place] pCO2 28 L pO2 168 H HCO3 24.0 ABG pH 7.49 H ABG Total CO2 22.2 ABG O2 Saturation 99.6 H ABG Base Excess -1.2 ABG Hemoglobin 10.5 L ABG Carboxyhemoglobin 1.6 H POC ABG HHb (Measured) 0.4 ABG Methemoglobin 0.5 Lionel Test Na A-a O2 Difference 82.0 Respiratory Index 0.5 Hgb O2 Saturation 97.5 Vent Mode Prvc Mechanical Rate 14 FiO2 40.0 Tidal Volume 400 PEEP 5 Sodium Potassium Chloride Carbon Dioxide Anion Gap BUN Creatinine Est GFR ( Amer) Est GFR (Non-Af Amer) POC Glucose (mg/dL) 107 Random Glucose Calcium Phosphorus Magnesium Total Bilirubin AST ALT Alkaline Phosphatase Total Protein Albumin Globulin Albumin/Globulin Ratio C. difficile Ag & Toxin Blood Type Antibody Screen 03/16/18 03/16/18 03/16/18 07:29 10:48 11:22 WBC RBC Hgb Hct MCV MCH MCHC RDW Plt Count MPV Neut % (Auto) Lymph % (Auto) Frontier % (Auto) Eos % (Auto) Baso % (Auto) Neut # (Auto) Lymph # (Auto) Frontier # (Auto) Eos # (Auto) Baso # (Auto) Neutrophils % (Manual) Lymphocytes % (Manual) Monocytes % (Manual) Platelet Estimate Anisocytosis (manual) APTT 59 H D Puncture Site pCO2 pO2 HCO3 ABG pH ABG Total CO2 ABG O2 Saturation ABG Base Excess ABG Hemoglobin ABG Carboxyhemoglobin POC ABG HHb (Measured) ABG Methemoglobin Lionel Test A-a O2 Difference Respiratory Index Hgb O2 Saturation Vent Mode Mechanical Rate FiO2 Tidal Volume PEEP Sodium Potassium Chloride Carbon Dioxide Anion Gap BUN Creatinine Est GFR ( Amer) Est GFR (Non-Af Amer) POC Glucose (mg/dL) 99 109 Random Glucose Calcium Phosphorus Magnesium Total Bilirubin AST ALT Alkaline Phosphatase Total Protein Albumin Globulin Albumin/Globulin Ratio C. difficile Ag & Toxin Blood Type Antibody Screen Critical Care Progress Note - Nutrition Nutrition: Nutrition Category Date Time Status NPO Diet [DIET] Diets 03/14/18 Breakfast Active Attending/Attestation - Attestation I have personally seen and examined this patient.: Yes I have fully participated in the care of the patient.: Yes I have reviewed all pertinent clinical information: Yes Notes (Text): 03/16/18 17:31 patient seen and examined in the intensive care unit. Patient remained intubated on ventilatory support Transfuse packed RBCs Patient started on amiodarone drip for A. fib with rapid rate after he did not respond to Cardizem and beta lety Hemodialysis Continue antibiotics Stage IV decubiti and wound care
[2018-03-16] MEDS: Phenylephrine 30 MG in Sodium Chloride 0.9% 250 ML IV PRN (17:02)
--- NOTE | 2018-03-16 18:37 | CP.PCM.PN ---
Subjective - Date & Time of Evaluation Date of Evaluation: 03/16/18 Time of Evaluation: 10:00 - Subjective Subjective: clinically same Objective - Vital Signs/Intake and Output Vital Signs (last 24 hours): Temp Pulse Resp BP Pulse Ox 98.0 F 116 H 28 H 103/48 L 100 03/16/18 16:54 03/16/18 18:05 03/16/18 18:05 03/16/18 18:05 03/16/18 18:05 Intake and Output: 03/16/18 03/16/18 06:59 18:59 Intake Total 1962.5 1764.5 Output Total 1250 975 Balance 712.5 789.5 - Medications Medications: Current Medications Albuterol/Ipratropium (Duoneb 3 Mg/0.5 Mg (3 Ml) Ud) 3 ml INH RQ6 NEL Last Admin: 03/16/18 14:34 Dose: 3 ml Piperacillin Sod/Tazobactam (Sod 2.25 gm/ Sodium Chloride) 100 mls @ 200 mls/hr IVPB Q8H NEL; Protocol Last Admin: 03/16/18 18:15 Dose: 200 mls/hr Sodium Chloride (Sodium Chloride 0.9%) 1,000 mls @ 100 mls/hr IV .Q10H NEL Last Admin: 03/16/18 16:39 Dose: Not Given Phenylephrine HCl 30 mg/ (Sodium Chloride) 253 mls @ 10.12 mls/hr IV .Q24H PRN; Protocol PRN Reason: TITRATE PER MD ORDER Last Titration: 03/16/18 17:09 Dose: 40 mcg/min, 20.24 mls/hr Amiodarone HCl 900 mg/ (Dextrose) 500 mls @ 16.67 mls/hr IV .Q24H ONE; Protocol Stop: 03/17/18 18:04 Last Admin: 03/16/18 18:05 Dose: 16.67 mls/hr Insulin Human Regular (Novolin R) 0 unit SC Q4 NEL; Protocol Last Admin: 03/16/18 16:05 Dose: 1 units Pantoprazole Sodium (Protonix Inj) 40 mg IVP DAILY NEL Last Admin: 03/16/18 09:59 Dose: 40 mg Pneumococcal Polyvalent Vaccine (Pneumovax 23 Vaccine) 0.5 ml IM .ONCE ONE Stop: 03/19/18 10:01 - Labs Labs: 03/16/18 05:50 03/16/18 03:14 PT 13.4 SECONDS (9.7-12.2) H 03/14/18 15:49 INR 1.2 03/14/18 15:49 APTT 59 SECONDS (21-34) H D 03/16/18 10:48
[2018-03-16 21:21] LABS: HEMOGLOBIN 8.6 g/dL (12.0-18.0); MEAN CELL VOLUME 91.1 fL (80.0-94.0); MEAN CORPUSCULAR HEMOGLOBIN 29.9 pg (27.0-31.0); MEAN CORPUSCULAR HGB CONC 32.9 g/dL (33.0-37.0); MEAN PLATELET VOLUME 6.8 fL (7.2-11.7); RBC 2.88 Mil/uL (4.40-5.90); RED CELL DISTRIBUTION WIDTH 15.2 % (11.5-14.5)
[2018-03-16 21:27] LABS: WHITE BLOOD COUNT 17.7 K/uL (4.8-10.8)
[2018-03-17 00:13] LABS: BANDS 22 % (0-2)
[2018-03-17] MEDS: (Novolin R) Insulin Human Regular 100 units/ml vial SC SCH ×6 (00:38→20:43)
[2018-03-17] MEDS: Albuterol-Ipratrop 3 mg / 0.5 (3 ml) UD INH SCH ×4 (01:22→19:25)
[2018-03-17] MEDS: Piperacillin/Tazobact 2.25 GM in Sodium Chloride 100 ML IVPB SCH ×3 (02:39→17:02)
[2018-03-17] MEDS: Phenylephrine 30 MG in Sodium Chloride 0.9% 250 ML IV PRN (02:41)
[2018-03-17] MEDS: Sodium Chloride 0.9% 1,000 ML IV SCH ×2 (03:50→07:27)
[2018-03-17 05:52] LABS: ARTERIAL BLOOD GAS HCO3 18.2 mmol/L (21-28); ARTERIAL BLOOD GAS HEMOGLOBIN 8.2 g/dL (11.7-17.4); ARTERIAL BLOOD GAS O2 SAT 99.4 % (95-98); ARTERIAL BLOOD GAS PCO2 28 mm/Hg (35-45); ARTERIAL BLOOD GAS PH 7.36 (7.35-7.45); ARTERIAL BLOOD GAS PO2 97 mm/Hg (80-100); ARTERIAL BLOOD GAS TCO2 16.7 mmol/L (22-28)
[2018-03-17 06:44] LABS: BASO % 0.3 % (0.0-2.0); EOS # 0.1 K/uL (0.0-0.7); EOS % 0.4 % (0.0-4.0); HEMOGLOBIN 7.9 g/dL (12.0-18.0); LYMPH # 1.3 K/uL (1.0-4.3); LYMPH % 7.7 % (20.0-40.0); MEAN CELL VOLUME 91.5 fL (80.0-94.0); MEAN CORPUSCULAR HEMOGLOBIN 30.3 pg (27.0-31.0); MEAN CORPUSCULAR HGB CONC 33.1 g/dL (33.0-37.0); MEAN PLATELET VOLUME 6.9 fL (7.2-11.7); MONO # 0.6 K/uL (0.0-0.8); MONO % 3.5 % (0.0-10.0); NEUT # 14.7 K/uL (1.8-7.0); NEUT % 88.1 % (50.0-75.0); NRBC % 0.3 % (0.0-2.0); PLATELET COUNT 142 K/uL (130-400); RBC 2.61 Mil/uL (4.40-5.90); RED CELL DISTRIBUTION WIDTH 15.9 % (11.5-14.5); WHITE BLOOD COUNT 16.6 K/uL (4.8-10.8)
[2018-03-17 06:55] LABS: ALB/GLOB RATIO 0.8 (1.0-2.1); ALBUMIN 2.6 g/dL (3.5-5.0)
[2018-03-17 08:31] LABS: BANDS 8 % (0-2); LYMPHOCYTE 10 % (20-40); MONOCYTE 2 % (0-10); NEUTROPHIL 78 % (50-75); PLATELET ESTIMATE NORMAL (NORMAL); REACTIVE LYMPHOCYTES 2 % (0-0); TOTAL CELLS COUNTED 100
[2018-03-17 08:32] LABS: ANISOCYTOSIS SLIGHT; TOXIC GRANULATION PRESENT
--- NOTE | 2018-03-17 08:56 | CP.PCM.PN ---
Subjective - Date & Time of Evaluation Date of Evaluation: 03/17/18 Time of Evaluation: 08:54 - Subjective Subjective: Remains on vent, not responsive Oliguric Increased metabolic acidosis as well Made DNR Prognosis poor- not a dialysis candidate Objective - Vital Signs/Intake and Output Vital Signs (last 24 hours): Temp Pulse Resp BP Pulse Ox 99.1 F 137 H 18 109/53 L 100 03/17/18 08:00 03/17/18 08:00 03/17/18 08:00 03/17/18 08:00 03/17/18 08:00 Intake and Output: 03/17/18 03/17/18 06:59 18:59 Intake Total 2091.6 293.4 Output Total 1090 70 Balance 1001.6 223.4 - Medications Medications: Current Medications Albuterol/Ipratropium (Duoneb 3 Mg/0.5 Mg (3 Ml) Ud) 3 ml INH RQ6 NEL Last Admin: 03/17/18 07:33 Dose: 3 ml Piperacillin Sod/Tazobactam (Sod 2.25 gm/ Sodium Chloride) 100 mls @ 200 mls/hr IVPB Q8H NEL; Protocol Last Admin: 03/17/18 02:39 Dose: 200 mls/hr Sodium Chloride (Sodium Chloride 0.9%) 1,000 mls @ 100 mls/hr IV .Q10H NEL Last Admin: 03/17/18 07:27 Dose: 100 mls/hr Phenylephrine HCl 30 mg/ (Sodium Chloride) 253 mls @ 10.12 mls/hr IV .Q24H PRN; Protocol PRN Reason: TITRATE PER MD ORDER Last Titration: 03/17/18 03:48 Dose: 29.64 mcg/min, 15 mls/hr Amiodarone HCl 900 mg/ (Dextrose) 500 mls @ 16.67 mls/hr IV .Q24H ONE; Protocol Stop: 03/17/18 18:04 Last Admin: 03/16/18 18:05 Dose: 16.67 mls/hr Insulin Human Regular (Novolin R) 0 unit SC Q4 NEL; Protocol Last Admin: 03/17/18 08:17 Dose: 1 units Lorazepam (Ativan) 2 mg IVP Q4H PRN PRN Reason: Anxiety Last Admin: 03/16/18 23:02 Dose: 2 mg Morphine Sulfate (Morphine) 2 mg IV Q6 PRN PRN Reason: Pain, moderate (4-7) Last Admin: 03/16/18 21:31 Dose: 2 mg Pantoprazole Sodium (Protonix Inj) 40 mg IVP DAILY NEL Last Admin: 03/16/18 09:59 Dose: 40 mg Pneumococcal Polyvalent Vaccine (Pneumovax 23 Vaccine) 0.5 ml IM .ONCE ONE Stop: 03/19/18 10:01 - Labs Labs: 03/17/18 06:32 03/17/18 06:32 PT 13.4 SECONDS (9.7-12.2) H 03/14/18 15:49 INR 1.2 03/14/18 15:49 APTT 59 SECONDS (21-34) H D 03/16/18 10:48 - Constitutional Appears: In Acute Distress, Chronically Ill - Head Exam Head Exam: ATRAUMATIC, NORMAL INSPECTION - Neck Exam Neck Exam: Normal Inspection. absent: Tenderness - Respiratory Exam Respiratory Exam: Rhonchi, Respiratory Distress - Cardiovascular Exam Cardiovascular Exam: Tachycardia, +S1 - GI/Abdominal Exam GI & Abdominal Exam: Soft. absent: Tenderness - Extremities Exam Extremities Exam: Normal Inspection. absent: Tenderness - Neurological Exam Neurological Exam: Altered - Skin Skin Exam: Dry, Warm Assessment and Plan (1) Sepsis Status: Acute (2) JOY (acute kidney injury) Status: Acute (3) CKD (chronic kidney disease) stage 4, GFR 15-29 ml/min Status: Acute (4) UTI (urinary tract infection) Status: Acute (5) Dementia Status: Chronic - Assessment and Plan (Free Text) Plan: Supportive care Not a dialysis candidate
[2018-03-17] MEDS ORDERED: Digoxin 500 mcg/2ml (0.5 mg/2ml) Inj IVP ONE (10:18)
[2018-03-17] MEDS ORDERED: Metoprolol 1 mg/ml Inj IVP ONE (10:30)
[2018-03-17 10:46] VITALS: PULSE 116
[2018-03-17] MEDS: Valproic Acid 250 mg/5 ml UD Cup PO SCH ×2 (10:58→17:03)
[2018-03-17] MEDS: Sodium Bicarbonate 8.4% 150 MEQ in Dextrose 5% In Water 1,000 ML IV SCH ×2 (11:00→23:35)
--- NOTE | 2018-03-17 11:27 | CP.CCUPN ---
<Tony Carrillo - Last Filed: 03/17/18 17:56> CCU Subjective - Physician Review Events Since Last Encounter (Free Text): 03/17/18 11:26 No acute events overnight Subjective (Free Text): 03/17/18 11:25 PGY1 Critical Care Progress Note for Dr. Hernandes Patient was seen at bedside this morning. No acute events overnight. Patient minimally responsive. ROS could not be obtained due to clinical condition. 1== Critical Care Time Spent (in minutes): 35 CCU Objective - Vital Signs / Intake & Output Vital Signs (Last 4 hours): Vital Signs Temp Pulse Resp BP Pulse Ox 03/17/18 09:00 133 H 18 100 03/17/18 08:49 143 H 15 93/64 L 100 03/17/18 08:00 99.1 F 137 H 18 109/53 L 100 03/17/18 07:49 92/60 L Intake and Output (Last 8hrs): Intake & Output 03/16/18 03/17/18 03/17/18 22:59 06:59 14:59 Intake Total 1463.9 1398.9 440.1 Output Total 670 860 90 Balance 793.9 538.9 350.1 Weight 115 lb 6.4 oz Intake: IV 134 142 Intake, IV Amount 684.9 1046.9 350.1 R subcl PermCAth 50.1 116.9 50.1 Right Antecubital 400 800 300 Right Hand 149.8 Y tubing R PermaC 85 130 Oral 30 Tube Feeding 240 210 90 Blood Product 325 Red Blood Cells Cpd As1 325 Lr Unit [id number] Other 50 Red Blood Cells Cpd As1 50 Lr Unit [id number] Output: Urine 120 260 90 Urethral (Mendes) 120 260 90 Stool 550 600 - Physical Exam Head: Positive for: Atraumatic, Normocephalic Pupils: Positive for: PERRL Extroacular Muscles: Positive for: EOMI Mouth: Positive for: Dry Neck: Positive for: Normal Range of Motion. Negative for: JVD Respiratory/Chest: Positive for: Clear to Auscultation. Negative for: Respiratory Distress, Decreased Breath Sounds Cardiovascular: Positive for: Regular Rate and Rhythm, Normal S1, S2 Abdomen: Positive for: Ostomy Tubes (iliostomy bag clean and dry). Negative for: Tenderness, Distention Upper Extremity: Positive for: Normal Inspection, Capillary Refill < 2s. Negative for: Edema Lower Extremity: Negative for: Normal Inspection, Edema, CALF TENDERNESS, NORMAL PULSES (Left lower extremity is cool to touch compared to the right. No pulses palpable on left lower extremity for pedal and/or popliteal pulses. ) Skin: Positive for: Other (Left Foot: Cold, mottled, dark purple/black in color) Psychiatric: Positive for: Alert. Negative for: Oriented x 3 - Medications Active Medications: Active Medications Generic Name Dose Route Start Last Admin Trade Name Freq PRN Reason Stop Dose Admin Albuterol/Ipratropium 3 ml 03/14/18 20:00 03/17/18 07:33 Duoneb 3 Mg/0.5 Mg (3 Ml) Ud INH 3 ml RQ6 NEL Administration Piperacillin Sod/Tazobactam 100 mls @ 200 mls/hr 03/15/18 02:00 03/17/18 09:07 Sod 2.25 gm/ Sodium Chloride IVPB 200 mls/hr Q8H NEL Administration Protocol Phenylephrine HCl 30 mg/ 253 mls @ 10.12 mls/hr 03/16/18 16:12 03/17/18 03:48 Sodium Chloride IV 29.64 mcg/min .Q24H PRN 15 mls/hr TITRATE PER MD ORDER Titration Protocol 20 MCG/MIN Amiodarone HCl 900 mg/ 500 mls @ 16.67 mls/hr 03/16/18 18:05 03/16/18 18:05 Dextrose IV 03/17/18 18:04 16.67 mls/hr .Q24H ONE Administration Protocol 0.5 MG/MIN Sodium Bicarbonate 150 meq/ 1,150 mls @ 100 mls/hr 03/17/18 11:00 03/17/18 11:00 Dextrose IV 100 mls/hr .[id number] NEL Administration Insulin Human Regular 0 unit 03/14/18 20:36 03/17/18 08:17 Novolin R SC 1 units Q4 NEL Administration Protocol Lorazepam 2 mg 03/16/18 22:55 03/16/18 23:02 Ativan IVP 2 mg Q4H PRN Administration Anxiety Morphine Sulfate 2 mg 03/16/18 22:00 03/16/18 21:31 Morphine IV 2 mg Q6 PRN Administration Pain, moderate (4-7) Pantoprazole Sodium 40 mg 03/15/18 10:00 03/17/18 09:06 Protonix Inj IVP 40 mg DAILY NEL Administration Pneumococcal Polyvalent Vaccine 0.5 ml 03/19/18 10:00 Pneumovax 23 Vaccine IM 03/19/18 10:01 .ONCE ONE Valproate Sodium 250 mg 03/17/18 10:30 03/17/18 10:58 Depakene Oral Soln PO 250 mg BID NEL Administration - Patient Studies Lab Studies: Microbiology Studies 03/14/18 18:05 Urine Culture - Preliminary Urine,Catheterized Escherichia Coli 03/14/18 17:56 Blood Culture - Preliminary Blood NO GROWTH AFTER 48 HOURS 03/14/18 15:50 Blood Culture - Preliminary Blood NO GROWTH AFTER 48 HOURS Lab Studies 03/17/18 03/17/18 03/17/18 Range/Units 08:09 06:32 06:32 WBC 16.6 H (4.8-10.8) K/uL RBC 2.61 L (4.40-5.90) Mil/uL Hgb 7.9 L (12.0-18.0) g/dL Hct 23.9 L (35.0-51.0) % MCV 91.5 (80.0-94.0) fL MCH 30.3 (27.0-31.0) pg MCHC 33.1 (33.0-37.0) g/dL RDW 15.9 H (11.5-14.5) % Plt Count 142 (130-400) K/uL MPV 6.9 L (7.2-11.7) fL Neut % (Auto) 88.1 H (50.0-75.0) % Lymph % (Auto) 7.7 L (20.0-40.0) % [place] % (Auto) 3.5 (0.0-10.0) % Eos % (Auto) 0.4 (0.0-4.0) % Baso % (Auto) 0.3 (0.0-2.0) % Neut # (Auto) 14.7 H (1.8-7.0) K/uL Lymph # (Auto) 1.3 (1.0-4.3) K/uL [place] # (Auto) 0.6 (0.0-0.8) K/uL Eos # (Auto) 0.1 (0.0-0.7) K/uL Baso # (Auto) 0.0 (0.0-0.2) K/uL Neutrophils % (Manual) 78 H (50-75) % Band Neutrophils % 8 H (0-2) % Lymphocytes % (Manual) 10 L (20-40) % Reactive Lymphs % 2 H (0-0) % Monocytes % (Manual) 2 (0-10) % Toxic Granulation Present Platelet Estimate Normal (NORMAL) Anisocytosis (manual) Slight Puncture Site pCO2 (35-45) mm/Hg pO2 (80-100) mm/Hg HCO3 (21-28) mmol/L ABG pH (7.35-7.45) ABG Total CO2 (22-28) mmol/L ABG O2 Saturation (95-98) % ABG Base Excess (-2.0-3.0) mmol/L ABG Hemoglobin (11.7-17.4) g/dL ABG Carboxyhemoglobin (0.5-1.5) % POC ABG HHb (Measured) (0.0-5.0) % ABG Methemoglobin (0.0-3.0) % Lionel Test A-a O2 Difference mm/Hg Respiratory Index Hgb O2 Saturation (95.0-98.0) % Vent Mode Mechanical Rate FiO2 % Tidal Volume PEEP Sodium 146 (132-148) mmol/L Potassium 4.5 (3.6-5.2) mmol/L Chloride 120 H (98-107) mmol/L Carbon Dioxide 15 L (22-30) mmol/L Anion Gap 15 (10-20) BUN 53 H (9-20) mg/dL Creatinine 4.3 H (0.8-1.5) mg/dL Est GFR ( Amer) 17 Est GFR (Non-Af Amer) 14 POC Glucose (mg/dL) 175 H (65-110) mg/dL Random Glucose 151 H (75-110) mg/dL Calcium 7.0 L (8.6-10.4) mg/dl Phosphorus 2.4 L (2.5-4.5) mg/dL Magnesium 2.0 (1.6-2.3) mg/dL Total Bilirubin 0.5 (0.2-1.3) mg/dL AST 110 H D (17-59) U/L ALT 56 (21-72) U/L Alkaline Phosphatase 152 H D (38-126) U/L Total Protein 5.8 L (6.3-8.3) g/dL Albumin 2.6 L (3.5-5.0) g/dL Globulin 3.2 (2.2-3.9) gm/dL Albumin/Globulin Ratio 0.8 L (1.0-2.1) Blood Type Antibody Screen 03/17/18 03/17/18 03/16/18 Range/Units 05:22 00:29 21:11 WBC 17.7 H D (4.8-10.8) K/uL RBC 2.88 L (4.40-5.90) Mil/uL Hgb 8.6 L (12.0-18.0) g/dL Hct 26.2 L (35.0-51.0) % MCV 91.1 (80.0-94.0) fL MCH 29.9 (27.0-31.0) pg MCHC 32.9 L (33.0-37.0) g/dL RDW 15.2 H (11.5-14.5) % Plt Count 175 (130-400) K/uL MPV 6.8 L (7.2-11.7) fL Neut % (Auto) (50.0-75.0) % Lymph % (Auto) (20.0-40.0) % [place] % (Auto) (0.0-10.0) % Eos % (Auto) (0.0-4.0) % Baso % (Auto) (0.0-2.0) % Neut # (Auto) (1.8-7.0) K/uL Lymph # (Auto) (1.0-4.3) K/uL [place] # (Auto) (0.0-0.8) K/uL Eos # (Auto) (0.0-0.7) K/uL Baso # (Auto) (0.0-0.2) K/uL Neutrophils % (Manual) (50-75) % Band Neutrophils % (0-2) % Lymphocytes % (Manual) (20-40) % Reactive Lymphs % (0-0) % Monocytes % (Manual) (0-10) % Toxic Granulation Platelet Estimate (NORMAL) Anisocytosis (manual) Puncture Site A-line pCO2 28 L (35-45) mm/Hg pO2 97 (80-100) mm/Hg HCO3 18.2 L (21-28) mmol/L ABG pH 7.36 (7.35-7.45) ABG Total CO2 16.7 L (22-28) mmol/L ABG O2 Saturation 99.4 H (95-98) % ABG Base Excess -8.7 L (-2.0-3.0) mmol/L ABG Hemoglobin 8.2 L (11.7-17.4) g/dL ABG Carboxyhemoglobin 1.8 H (0.5-1.5) % POC ABG HHb (Measured) 0.6 (0.0-5.0) % ABG Methemoglobin 0.9 (0.0-3.0) % Lionel Test Na A-a O2 Difference 153.0 mm/Hg Respiratory Index 1.6 Hgb O2 Saturation 96.7 (95.0-98.0) % Vent Mode Prvc Mechanical Rate 10 FiO2 40.0 % Tidal Volume 400 PEEP 5 Sodium (132-148) mmol/L Potassium (3.6-5.2) mmol/L Chloride (98-107) mmol/L Carbon Dioxide (22-30) mmol/L Anion Gap (10-20) BUN (9-20) mg/dL Creatinine (0.8-1.5) mg/dL Est GFR ( Amer) Est GFR (Non-Af Amer) POC Glucose (mg/dL) 140 H (65-110) mg/dL Random Glucose (75-110) mg/dL Calcium (8.6-10.4) mg/dl Phosphorus (2.5-4.5) mg/dL Magnesium (1.6-2.3) mg/dL Total Bilirubin (0.2-1.3) mg/dL AST (17-59) U/L ALT (21-72) U/L Alkaline Phosphatase (38-126) U/L Total Protein (6.3-8.3) g/dL Albumin (3.5-5.0) g/dL Globulin (2.2-3.9) gm/dL Albumin/Globulin Ratio (1.0-2.1) Blood Type Antibody Screen 03/16/18 03/16/18 03/16/18 Range/Units 20:08 16:01 11:22 WBC (4.8-10.8) K/uL RBC (4.40-5.90) Mil/uL Hgb (12.0-18.0) g/dL Hct (35.0-51.0) % MCV (80.0-94.0) fL MCH (27.0-31.0) pg MCHC (33.0-37.0) g/dL RDW (11.5-14.5) % Plt Count (130-400) K/uL MPV (7.2-11.7) fL Neut % (Auto) (50.0-75.0) % Lymph % (Auto) (20.0-40.0) % [place] % (Auto) (0.0-10.0) % Eos % (Auto) (0.0-4.0) % Baso % (Auto) (0.0-2.0) % Neut # (Auto) (1.8-7.0) K/uL Lymph # (Auto) (1.0-4.3) K/uL [place] # (Auto) (0.0-0.8) K/uL Eos # (Auto) (0.0-0.7) K/uL Baso # (Auto) (0.0-0.2) K/uL Neutrophils % (Manual) (50-75) % Band Neutrophils % (0-2) % Lymphocytes % (Manual) (20-40) % Reactive Lymphs % (0-0) % Monocytes % (Manual) (0-10) % Toxic Granulation Platelet Estimate (NORMAL) Anisocytosis (manual) Puncture Site pCO2 (35-45) mm/Hg pO2 (80-100) mm/Hg HCO3 (21-28) mmol/L ABG pH (7.35-7.45) ABG Total CO2 (22-28) mmol/L ABG O2 Saturation (95-98) % ABG Base Excess (-2.0-3.0) mmol/L ABG Hemoglobin (11.7-17.4) g/dL ABG Carboxyhemoglobin (0.5-1.5) % POC ABG HHb (Measured) (0.0-5.0) % ABG Methemoglobin (0.0-3.0) % Lionel Test A-a O2 Difference mm/Hg Respiratory Index Hgb O2 Saturation (95.0-98.0) % Vent Mode Mechanical Rate FiO2 % Tidal Volume PEEP Sodium (132-148) mmol/L Potassium (3.6-5.2) mmol/L Chloride (98-107) mmol/L Carbon Dioxide (22-30) mmol/L Anion Gap (10-20) BUN (9-20) mg/dL Creatinine (0.8-1.5) mg/dL Est GFR ( Amer) Est GFR (Non-Af Amer) POC Glucose (mg/dL) 127 H 162 H 109 (65-110) mg/dL Random Glucose (75-110) mg/dL Calcium (8.6-10.4) mg/dl Phosphorus (2.5-4.5) mg/dL Magnesium (1.6-2.3) mg/dL Total Bilirubin (0.2-1.3) mg/dL AST (17-59) U/L ALT (21-72) U/L Alkaline Phosphatase (38-126) U/L Total Protein (6.3-8.3) g/dL Albumin (3.5-5.0) g/dL Globulin (2.2-3.9) gm/dL Albumin/Globulin Ratio (1.0-2.1) Blood Type Antibody Screen 03/15/18 03/15/18 Range/Units 15:13 04:31 WBC (4.8-10.8) K/uL RBC (4.40-5.90) Mil/uL Hgb (12.0-18.0) g/dL Hct (35.0-51.0) % MCV (80.0-94.0) fL MCH (27.0-31.0) pg MCHC (33.0-37.0) g/dL RDW (11.5-14.5) % Plt Count (130-400) K/uL MPV (7.2-11.7) fL Neut % (Auto) (50.0-75.0) % Lymph % (Auto) (20.0-40.0) % [place] % (Auto) (0.0-10.0) % Eos % (Auto) (0.0-4.0) % Baso % (Auto) (0.0-2.0) % Neut # (Auto) (1.8-7.0) K/uL Lymph # (Auto) (1.0-4.3) K/uL [place] # (Auto) (0.0-0.8) K/uL Eos # (Auto) (0.0-0.7) K/uL Baso # (Auto) (0.0-0.2) K/uL Neutrophils % (Manual) (50-75) % Band Neutrophils % 22 H* (0-2) % Lymphocytes % (Manual) (20-40) % Reactive Lymphs % (0-0) % Monocytes % (Manual) (0-10) % Toxic Granulation Platelet Estimate (NORMAL) Anisocytosis (manual) Puncture Site pCO2 (35-45) mm/Hg pO2 (80-100) mm/Hg HCO3 (21-28) mmol/L ABG pH (7.35-7.45) ABG Total CO2 (22-28) mmol/L ABG O2 Saturation (95-98) % ABG Base Excess (-2.0-3.0) mmol/L ABG Hemoglobin (11.7-17.4) g/dL ABG Carboxyhemoglobin (0.5-1.5) % POC ABG HHb (Measured) (0.0-5.0) % ABG Methemoglobin (0.0-3.0) % Lionel Test A-a O2 Difference mm/Hg Respiratory Index Hgb O2 Saturation (95.0-98.0) % Vent Mode Mechanical Rate FiO2 % Tidal Volume PEEP Sodium (132-148) mmol/L Potassium (3.6-5.2) mmol/L Chloride (98-107) mmol/L Carbon Dioxide (22-30) mmol/L Anion Gap (10-20) BUN (9-20) mg/dL Creatinine (0.8-1.5) mg/dL Est GFR ( Amer) Est GFR (Non-Af Amer) POC Glucose (mg/dL) (65-110) mg/dL Random Glucose (75-110) mg/dL Calcium (8.6-10.4) mg/dl Phosphorus (2.5-4.5) mg/dL Magnesium (1.6-2.3) mg/dL Total Bilirubin (0.2-1.3) mg/dL AST (17-59) U/L ALT (21-72) U/L Alkaline Phosphatase (38-126) U/L Total Protein (6.3-8.3) g/dL Albumin (3.5-5.0) g/dL Globulin (2.2-3.9) gm/dL Albumin/Globulin Ratio (1.0-2.1) Blood Type O POSITIVE Antibody Screen Negative Laboratory Results - last 24 hr 03/15/18 03/15/18 03/16/18 04:31 15:13 11:22 WBC RBC Hgb Hct MCV MCH MCHC RDW Plt Count MPV Neut % (Auto) Lymph % (Auto) [place] % (Auto) Eos % (Auto) Baso % (Auto) Neut # (Auto) Lymph # (Auto) [place] # (Auto) Eos # (Auto) Baso # (Auto) Neutrophils % (Manual) Band Neutrophils % 22 H* Lymphocytes % (Manual) Reactive Lymphs % Monocytes % (Manual) Toxic Granulation Platelet Estimate Anisocytosis (manual) Puncture Site pCO2 pO2 HCO3 ABG pH ABG Total CO2 ABG O2 Saturation ABG Base Excess ABG Hemoglobin ABG Carboxyhemoglobin POC ABG HHb (Measured) ABG Methemoglobin Lionel Test A-a O2 Difference Respiratory Index Hgb O2 Saturation Vent Mode Mechanical Rate FiO2 Tidal Volume PEEP Sodium Potassium Chloride Carbon Dioxide Anion Gap BUN Creatinine Est GFR ( Amer) Est GFR (Non-Af Amer) POC Glucose (mg/dL) 109 Random Glucose Calcium Phosphorus Magnesium Total Bilirubin AST ALT Alkaline Phosphatase Total Protein Albumin Globulin Albumin/Globulin Ratio Blood Type O POSITIVE Antibody Screen Negative 03/16/18 03/16/18 03/16/18 16:01 20:08 21:11 WBC 17.7 H D RBC 2.88 L Hgb 8.6 L Hct 26.2 L MCV 91.1 MCH 29.9 MCHC 32.9 L RDW 15.2 H Plt Count 175 MPV 6.8 L Neut % (Auto) Lymph % (Auto) [place] % (Auto) Eos % (Auto) Baso % (Auto) Neut # (Auto) Lymph # (Auto) [place] # (Auto) Eos # (Auto) Baso # (Auto) Neutrophils % (Manual) Band Neutrophils % Lymphocytes % (Manual) Reactive Lymphs % Monocytes % (Manual) Toxic Granulation Platelet Estimate Anisocytosis (manual) Puncture Site pCO2 pO2 HCO3 ABG pH ABG Total CO2 ABG O2 Saturation ABG Base Excess ABG Hemoglobin ABG Carboxyhemoglobin POC ABG HHb (Measured) ABG Methemoglobin Lionel Test A-a O2 Difference Respiratory Index Hgb O2 Saturation Vent Mode Mechanical Rate FiO2 Tidal Volume PEEP Sodium Potassium Chloride Carbon Dioxide Anion Gap BUN Creatinine Est GFR ( Amer) Est GFR (Non-Af Amer) POC Glucose (mg/dL) 162 H 127 H Random Glucose Calcium Phosphorus Magnesium Total Bilirubin AST ALT Alkaline Phosphatase Total Protein Albumin Globulin Albumin/Globulin Ratio Blood Type Antibody Screen 03/17/18 03/17/18 03/17/18 00:29 05:22 06:32 WBC 16.6 H RBC 2.61 L Hgb 7.9 L Hct 23.9 L MCV 91.5 MCH 30.3 MCHC 33.1 RDW 15.9 H Plt Count 142 MPV 6.9 L Neut % (Auto) 88.1 H Lymph % (Auto) 7.7 L [place] % (Auto) 3.5 Eos % (Auto) 0.4 Baso % (Auto) 0.3 Neut # (Auto) 14.7 H Lymph # (Auto) 1.3 [place] # (Auto) 0.6 Eos # (Auto) 0.1 Baso # (Auto) 0.0 Neutrophils % (Manual) 78 H Band Neutrophils % 8 H Lymphocytes % (Manual) 10 L Reactive Lymphs % 2 H Monocytes % (Manual) 2 Toxic Granulation Present Platelet Estimate Normal Anisocytosis (manual) Slight Puncture Site A-line pCO2 28 L pO2 97 HCO3 18.2 L ABG pH 7.36 ABG Total CO2 16.7 L ABG O2 Saturation 99.4 H ABG Base Excess -8.7 L ABG Hemoglobin 8.2 L ABG Carboxyhemoglobin 1.8 H POC ABG HHb (Measured) 0.6 ABG Methemoglobin 0.9 Lionel Test Na A-a O2 Difference 153.0 Respiratory Index 1.6 Hgb O2 Saturation 96.7 Vent Mode Prvc Mechanical Rate 10 FiO2 40.0 Tidal Volume 400 PEEP 5 Sodium Potassium Chloride Carbon Dioxide Anion Gap BUN Creatinine Est GFR ( Amer) Est GFR (Non-Af Amer) POC Glucose (mg/dL) 140 H Random Glucose Calcium Phosphorus Magnesium Total Bilirubin AST ALT Alkaline Phosphatase Total Protein Albumin Globulin Albumin/Globulin Ratio Blood Type Antibody Screen 03/17/18 03/17/18 06:32 08:09 WBC RBC Hgb Hct MCV MCH MCHC RDW Plt Count MPV Neut % (Auto) Lymph % (Auto) [place] % (Auto) Eos % (Auto) Baso % (Auto) Neut # (Auto) Lymph # (Auto) [place] # (Auto) Eos # (Auto) Baso # (Auto) Neutrophils % (Manual) Band Neutrophils % Lymphocytes % (Manual) Reactive Lymphs % Monocytes % (Manual) Toxic Granulation Platelet Estimate Anisocytosis (manual) Puncture Site pCO2 pO2 HCO3 ABG pH ABG Total CO2 ABG O2 Saturation ABG Base Excess ABG Hemoglobin ABG Carboxyhemoglobin POC ABG HHb (Measured) ABG Methemoglobin Lionel Test A-a O2 Difference Respiratory Index Hgb O2 Saturation Vent Mode Mechanical Rate FiO2 Tidal Volume PEEP Sodium 146 Potassium 4.5 Chloride 120 H Carbon Dioxide 15 L Anion Gap 15 BUN 53 H Creatinine 4.3 H Est GFR ( Amer) 17 Est GFR (Non-Af Amer) 14 POC Glucose (mg/dL) 175 H Random Glucose 151 H Calcium 7.0 L Phosphorus 2.4 L Magnesium 2.0 Total Bilirubin 0.5 AST 110 H D ALT 56 Alkaline Phosphatase 152 H D Total Protein 5.8 L Albumin 2.6 L Globulin 3.2 Albumin/Globulin Ratio 0.8 L Blood Type Antibody Screen Fingerstick Blood Sugar Results: 175 Review of Systems - Review of Systems Systems not reviewed;Unavailable: Acuity of Condition Critical Care Progress Note - Nutrition Nutrition: Nutrition Category Date Time Status NPO Diet [DIET] Diets 03/14/18 Breakfast Active Assessment/Plan - Assessment and Plan (Free Text) Assessment: This is a 72-year-old male with PMH obtained from previous records which include, but is not limited to: Anemia, Dementia, Atrial Fibrillation, CKD stage 4, CHF, Diabetes Mellitus, who [facility] for altered mental status. Full history could not be obtained at the time of the exam due to patient being minimally responsive. While in the ED: CODE SEPSIS was called 2/2 elevated lactic acid. Vascular Surgery was consulted (Dr. Ceron.) Patient was found to be hyperkalemic with positive EKG changes and was treated in ED. ICU team consulted for need for emergent dialysis. Please Note, ROS could not be obtained due to clinical condition. Patient underwent emergent dialysis via left femoral shiley. Since 03/15, shiley removed. Permacath placed by Dr. Ceron. Patient remains on vent since 03/15. Patient is currently DNR. Hospice being decided. Renal: Stage 4 CKD; emergent dialysis on 03/14 Hyperkalemia, improved = 4.5 Metabolic acidosis (ABG) - CBC, CMP, Mg, Phos Acute Renal Failure - Nephrology consulted (Dr. Jean,) recommendations appreciated * Oliguric * Monitor I&O * Increased metabolic acidosis as well * Made DNR * Prognosis poor- not a dialysis candidate CV: No acute issues - Monitor Critical Limb Ischemia (left) - Heparin 25,000 Units @12units/kg/hr - Surgery consulted (Dr. Ceron) * Patient s/p embolectomy 03/15 * Permacath placed on right subclavian 03/15 Pulm: - Patient intubated as of 03/15 - Monitor GI/: - Colostomy bag on right in tact - NPO except meds - Tube Feedings with Glucerna - Monitor I&O - Protonix 40mg IVP daily Neuro: - Patient is able to be aroused but minimally responsive on exam - Monitor neuro checks ID: - Leukocytosis - Lactate elevated; resolved (=1.4 on 03/15) - Continue Zosyn - ID Consulted (Dr. Barnett); recommendations appreciated * Continue current ABXs * Patient seen and case discussed with Dr. Cecilio Carrillo PGY1 <Nevaeh Hernandes - Last Filed: 03/19/18 12:13> CCU Objective - Vital Signs / Intake & Output Vital Signs (Last 4 hours): Vital Signs Temp Pulse Resp BP BP Pulse Ox 03/18/18 11:15 99.9 F H 03/18/18 11:00 75 28 H 135/35 L 100 03/18/18 10:49 74 28 H 125/35 L 100 03/18/18 10:37 72 27 H 113/34 L 100 03/18/18 10:15 101.3 F H 03/18/18 10:01 73 88 L 03/18/18 10:00 113/34 L Intake and Output (Last 8hrs): Intake & Output 03/17/18 03/18/18 03/18/18 22:59 06:59 14:59 Intake Total 1340 1140 1890 Output Total 470 380 200 Balance 097 457 0455 Weight 115 lb 12.8 oz Intake: Intake, IV Amount 370 041 7164 Left Thumb 20 R subcl PermCAth 700 800 500 Right Antecubital 100 100 300 Right Antecubital Y 1000 Right Hand 100 10 Tube Feeding 240 240 60 Other 200 Output: Urine 195 380 200 Urethral ([place]) 195 380 200 Stool 275 - Medications Active Medications: Active Medications Generic Name Dose Route Start Last Admin Trade Name Freq PRN Reason Stop Dose Admin Albuterol/Ipratropium 3 ml 03/14/18 20:00 03/18/18 13:51 Duoneb 3 Mg/0.5 Mg (3 Ml) Ud INH 3 ml RQ6 NEL Administration Piperacillin Sod/Tazobactam 100 mls @ 200 mls/hr 03/15/18 02:00 03/18/18 10:39 Sod 2.25 gm/ Sodium Chloride IVPB 200 mls/hr Q8H NEL Administration Protocol Sodium Bicarbonate 150 meq/ 1,150 mls @ 100 mls/hr 03/17/18 11:00 03/18/18 11:34 Dextrose IV 100 mls/hr .[id number] NEL Administration Insulin Human Regular 0 unit 03/14/18 20:36 03/18/18 12:36 Novolin R SC 1 units Q4 NEL Administration Protocol Lorazepam 2 mg 03/16/18 22:55 03/16/18 23:02 Ativan IVP 2 mg Q4H PRN Administration Anxiety Morphine Sulfate 2 mg 03/16/18 22:00 03/16/18 21:31 Morphine IV 2 mg Q6 PRN Administration Pain, moderate (4-7) Nystatin 1 applic 03/18/18 11:00 03/18/18 11:35 Nystop Topical Powder TOP 1 applic BID NEL Administration Pantoprazole Sodium 40 mg 03/15/18 10:00 03/18/18 10:15 Protonix Inj IVP 40 mg DAILY NEL Administration Pneumococcal Polyvalent Vaccine 0.5 ml 03/19/18 10:00 Pneumovax 23 Vaccine IM 03/19/18 10:01 .ONCE ONE Valproate Sodium 250 mg 03/17/18 10:30 03/18/18 10:15 Depakene Oral Soln PO 250 mg BID NEL Administration - Patient Studies Lab Studies: Microbiology Studies 03/14/18 17:56 Blood Culture - Preliminary Blood NO GROWTH AFTER 3 DAYS 03/14/18 15:50 Blood Culture - Preliminary Blood NO GROWTH AFTER 3 DAYS Lab Studies 03/18/18 03/18/18 03/18/18 Range/Units 12:04 09:52 07:51 WBC (4.8-10.8) K/uL RBC (4.40-5.90) Mil/uL Hgb (12.0-18.0) g/dL Hct (35.0-51.0) % MCV (80.0-94.0) fL MCH (27.0-31.0) pg MCHC (33.0-37.0) g/dL RDW (11.5-14.5) % Plt Count (130-400) K/uL MPV (7.2-11.7) fL Neut % (Auto) (50.0-75.0) % Lymph % (Auto) (20.0-40.0) % [place] % (Auto) (0.0-10.0) % Eos % (Auto) (0.0-4.0) % Baso % (Auto) (0.0-2.0) % Neut # (Auto) (1.8-7.0) K/uL Lymph # (Auto) (1.0-4.3) K/uL [place] # (Auto) (0.0-0.8) K/uL Eos # (Auto) (0.0-0.7) K/uL Baso # (Auto) (0.0-0.2) K/uL Neutrophils % (Manual) (50-75) % Band Neutrophils % (0-2) % Lymphocytes % (Manual) (20-40) % Monocytes % (Manual) (0-10) % Eosinophils % (Manual) (0-4) % Platelet Estimate (NORMAL) Hypochromasia (manual) Anisocytosis (manual) Fibrinogen 564 H (200-400) mg/dL Fibrin Degrad Products Positive H (NEGATIVE) Fibrin Degrad Prod, Qt >40 H (<10) ug/mL Puncture Site pCO2 (35-45) mm/Hg pO2 (80-100) mm/Hg HCO3 (21-28) mmol/L ABG pH (7.35-7.45) ABG Total CO2 (22-28) mmol/L ABG O2 Saturation (95-98) % ABG Base Excess (-2.0-3.0) mmol/L ABG Hemoglobin (11.7-17.4) g/dL ABG Carboxyhemoglobin (0.5-1.5) % POC ABG HHb (Measured) (0.0-5.0) % ABG Methemoglobin (0.0-3.0) % Lionel Test A-a O2 Difference mm/Hg Respiratory Index Hgb O2 Saturation (95.0-98.0) % Vent Mode Mechanical Rate FiO2 % Tidal Volume PEEP Sodium (132-148) mmol/L Potassium (3.6-5.2) mmol/L Chloride (98-107) mmol/L Carbon Dioxide (22-30) mmol/L Anion Gap (10-20) BUN (9-20) mg/dL Creatinine (0.8-1.5) mg/dL Est GFR ( Amer) Est GFR (Non-Af Amer) POC Glucose (mg/dL) 193 H 167 H (65-110) mg/dL Random Glucose (75-110) mg/dL Calcium (8.6-10.4) mg/dl Phosphorus (2.5-4.5) mg/dL Magnesium (1.6-2.3) mg/dL Total Bilirubin (0.2-1.3) mg/dL AST (17-59) U/L ALT (21-72) U/L Alkaline Phosphatase (38-126) U/L Total Protein (6.3-8.3) g/dL Albumin (3.5-5.0) g/dL Globulin (2.2-3.9) gm/dL Albumin/Globulin Ratio (1.0-2.1) 03/18/18 03/18/18 03/18/18 Range/Units 06:14 06:14 05:39 WBC 20.1 H (4.8-10.8) K/uL RBC 2.58 L (4.40-5.90) Mil/uL Hgb 7.9 L (12.0-18.0) g/dL Hct 23.7 L (35.0-51.0) % MCV 91.9 (80.0-94.0) fL MCH 30.7 (27.0-31.0) pg MCHC 33.5 (33.0-37.0) g/dL RDW 15.5 H (11.5-14.5) % Plt Count 100 L D (130-400) K/uL MPV 7.5 (7.2-11.7) fL Neut % (Auto) 91.8 H (50.0-75.0) % Lymph % (Auto) 4.7 L (20.0-40.0) % [place] % (Auto) 2.6 (0.0-10.0) % Eos % (Auto) 0.8 (0.0-4.0) % Baso % (Auto) 0.1 (0.0-2.0) % Neut # (Auto) 18.5 H (1.8-7.0) K/uL Lymph # (Auto) 0.9 L (1.0-4.3) K/uL [place] # (Auto) 0.5 (0.0-0.8) K/uL Eos # (Auto) 0.2 (0.0-0.7) K/uL Baso # (Auto) 0.0 (0.0-0.2) K/uL Neutrophils % (Manual) 83 H (50-75) % Band Neutrophils % 7 H (0-2) % Lymphocytes % (Manual) 6 L (20-40) % Monocytes % (Manual) 3 (0-10) % Eosinophils % (Manual) 1 (0-4) % Platelet Estimate Decreased L (NORMAL) Hypochromasia (manual) Slight Anisocytosis (manual) Slight Fibrinogen (200-400) mg/dL Fibrin Degrad Products (NEGATIVE) Fibrin Degrad Prod, Qt (<10) ug/mL Puncture Site L brac pCO2 32 L (35-45) mm/Hg pO2 77 L (80-100) mm/Hg HCO3 24.8 (21-28) mmol/L ABG pH 7.47 H (7.35-7.45) ABG Total CO2 24.3 (22-28) mmol/L ABG O2 Saturation 98.7 H (95-98) % ABG Base Excess -0.1 (-2.0-3.0) mmol/L ABG Hemoglobin 8.2 L (11.7-17.4) g/dL ABG Carboxyhemoglobin 1.8 H (0.5-1.5) % POC ABG HHb (Measured) 1.3 (0.0-5.0) % ABG Methemoglobin 1.3 (0.0-3.0) % Lionel Test Na A-a O2 Difference 168.0 mm/Hg Respiratory Index 2.2 Hgb O2 Saturation 95.6 (95.0-98.0) % Vent Mode Prvc Mechanical Rate 10 FiO2 40.0 % Tidal Volume 400 PEEP 5 Sodium 145 (132-148) mmol/L Potassium 4.1 (3.6-5.2) mmol/L Chloride 115 H (98-107) mmol/L Carbon Dioxide 24 (22-30) mmol/L Anion Gap 11 (10-20) BUN 52 H (9-20) mg/dL Creatinine 3.9 H (0.8-1.5) mg/dL Est GFR ( Amer) 18 Est GFR (Non-Af Amer) 15 POC Glucose (mg/dL) (65-110) mg/dL Random Glucose 149 H (75-110) mg/dL Calcium 6.8 L (8.6-10.4) mg/dl Phosphorus 1.9 L (2.5-4.5) mg/dL Magnesium 1.9 (1.6-2.3) mg/dL Total Bilirubin 0.5 (0.2-1.3) mg/dL AST 84 H D (17-59) U/L ALT 49 (21-72) U/L Alkaline Phosphatase 161 H (38-126) U/L Total Protein 5.5 L (6.3-8.3) g/dL Albumin 2.4 L (3.5-5.0) g/dL Globulin 3.1 (2.2-3.9) gm/dL Albumin/Globulin Ratio 0.8 L (1.0-2.1) 03/18/18 03/17/18 03/17/18 Range/Units 04:05 23:42 20:08 WBC (4.8-10.8) K/uL RBC (4.40-5.90) Mil/uL Hgb (12.0-18.0) g/dL Hct (35.0-51.0) % MCV (80.0-94.0) fL MCH (27.0-31.0) pg MCHC (33.0-37.0) g/dL RDW (11.5-14.5) % Plt Count (130-400) K/uL MPV (7.2-11.7) fL Neut % (Auto) (50.0-75.0) % Lymph % (Auto) (20.0-40.0) % [place] % (Auto) (0.0-10.0) % Eos % (Auto) (0.0-4.0) % Baso % (Auto) (0.0-2.0) % Neut # (Auto) (1.8-7.0) K/uL Lymph # (Auto) (1.0-4.3) K/uL [place] # (Auto) (0.0-0.8) K/uL Eos # (Auto) (0.0-0.7) K/uL Baso # (Auto) (0.0-0.2) K/uL Neutrophils % (Manual) (50-75) % Band Neutrophils % (0-2) % Lymphocytes % (Manual) (20-40) % Monocytes % (Manual) (0-10) % Eosinophils % (Manual) (0-4) % Platelet Estimate (NORMAL) Hypochromasia (manual) Anisocytosis (manual) Fibrinogen (200-400) mg/dL Fibrin Degrad Products (NEGATIVE) Fibrin Degrad Prod, Qt (<10) ug/mL Puncture Site pCO2 (35-45) mm/Hg pO2 (80-100) mm/Hg HCO3 (21-28) mmol/L ABG pH (7.35-7.45) ABG Total CO2 (22-28) mmol/L ABG O2 Saturation (95-98) % ABG Base Excess (-2.0-3.0) mmol/L ABG Hemoglobin (11.7-17.4) g/dL ABG Carboxyhemoglobin (0.5-1.5) % POC ABG HHb (Measured) (0.0-5.0) % ABG Methemoglobin (0.0-3.0) % Lionel Test A-a O2 Difference mm/Hg Respiratory Index Hgb O2 Saturation (95.0-98.0) % Vent Mode Mechanical Rate FiO2 % Tidal Volume PEEP Sodium (132-148) mmol/L Potassium (3.6-5.2) mmol/L Chloride (98-107) mmol/L Carbon Dioxide (22-30) mmol/L Anion Gap (10-20) BUN (9-20) mg/dL Creatinine (0.8-1.5) mg/dL Est GFR ( Amer) Est GFR (Non-Af Amer) POC Glucose (mg/dL) 157 H 101 154 H (65-110) mg/dL Random Glucose (75-110) mg/dL Calcium (8.6-10.4) mg/dl Phosphorus (2.5-4.5) mg/dL Magnesium (1.6-2.3) mg/dL Total Bilirubin (0.2-1.3) mg/dL AST (17-59) U/L ALT (21-72) U/L Alkaline Phosphatase (38-126) U/L Total Protein (6.3-8.3) g/dL Albumin (3.5-5.0) g/dL Globulin (2.2-3.9) gm/dL Albumin/Globulin Ratio (1.0-2.1) 03/17/18 03/17/18 Range/Units 15:44 05:50 WBC (4.8-10.8) K/uL RBC (4.40-5.90) Mil/uL Hgb (12.0-18.0) g/dL Hct (35.0-51.0) % MCV (80.0-94.0) fL MCH (27.0-31.0) pg MCHC (33.0-37.0) g/dL RDW (11.5-14.5) % Plt Count (130-400) K/uL MPV (7.2-11.7) fL Neut % (Auto) (50.0-75.0) % Lymph % (Auto) (20.0-40.0) % [place] % (Auto) (0.0-10.0) % Eos % (Auto) (0.0-4.0) % Baso % (Auto) (0.0-2.0) % Neut # (Auto) (1.8-7.0) K/uL Lymph # (Auto) (1.0-4.3) K/uL [place] # (Auto) (0.0-0.8) K/uL Eos # (Auto) (0.0-0.7) K/uL Baso # (Auto) (0.0-0.2) K/uL Neutrophils % (Manual) (50-75) % Band Neutrophils % (0-2) % Lymphocytes % (Manual) (20-40) % Monocytes % (Manual) (0-10) % Eosinophils % (Manual) (0-4) % Platelet Estimate (NORMAL) Hypochromasia (manual) Anisocytosis (manual) Fibrinogen (200-400) mg/dL Fibrin Degrad Products (NEGATIVE) Fibrin Degrad Prod, Qt (<10) ug/mL Puncture Site pCO2 (35-45) mm/Hg pO2 (80-100) mm/Hg HCO3 (21-28) mmol/L ABG pH (7.35-7.45) ABG Total CO2 (22-28) mmol/L ABG O2 Saturation (95-98) % ABG Base Excess (-2.0-3.0) mmol/L ABG Hemoglobin (11.7-17.4) g/dL ABG Carboxyhemoglobin (0.5-1.5) % POC ABG HHb (Measured) (0.0-5.0) % ABG Methemoglobin (0.0-3.0) % Lionel Test A-a O2 Difference mm/Hg Respiratory Index Hgb O2 Saturation (95.0-98.0) % Vent Mode Mechanical Rate FiO2 % Tidal Volume PEEP Sodium (132-148) mmol/L Potassium (3.6-5.2) mmol/L Chloride (98-107) mmol/L Carbon Dioxide (22-30) mmol/L Anion Gap (10-20) BUN (9-20) mg/dL Creatinine (0.8-1.5) mg/dL Est GFR ( Amer) Est GFR (Non-Af Amer) POC Glucose (mg/dL) 189 H 151 H (65-110) mg/dL Random Glucose (75-110) mg/dL Calcium (8.6-10.4) mg/dl Phosphorus (2.5-4.5) mg/dL Magnesium (1.6-2.3) mg/dL Total Bilirubin (0.2-1.3) mg/dL AST (17-59) U/L ALT (21-72) U/L Alkaline Phosphatase (38-126) U/L Total Protein (6.3-8.3) g/dL Albumin (3.5-5.0) g/dL Globulin (2.2-3.9) gm/dL Albumin/Globulin Ratio (1.0-2.1) Laboratory Results - last 24 hr 03/17/18 03/17/18 03/17/18 05:50 15:44 20:08 WBC RBC Hgb Hct MCV MCH MCHC RDW Plt Count MPV Neut % (Auto) Lymph % (Auto) [place] % (Auto) Eos % (Auto) Baso % (Auto) Neut # (Auto) Lymph # (Auto) [place] # (Auto) Eos # (Auto) Baso # (Auto) Neutrophils % (Manual) Band Neutrophils % Lymphocytes % (Manual) Monocytes % (Manual) Eosinophils % (Manual) Platelet Estimate Hypochromasia (manual) Anisocytosis (manual) Fibrinogen Fibrin Degrad Products Fibrin Degrad Prod, Qt Puncture Site pCO2 pO2 HCO3 ABG pH ABG Total CO2 ABG O2 Saturation ABG Base Excess ABG Hemoglobin ABG Carboxyhemoglobin POC ABG HHb (Measured) ABG Methemoglobin Lionel Test A-a O2 Difference Respiratory Index Hgb O2 Saturation Vent Mode Mechanical Rate FiO2 Tidal Volume PEEP Sodium Potassium Chloride Carbon Dioxide Anion Gap BUN Creatinine Est GFR ( Amer) Est GFR (Non-Af Amer) POC Glucose (mg/dL) 151 H 189 H 154 H Random Glucose Calcium Phosphorus Magnesium Total Bilirubin AST ALT Alkaline Phosphatase Total Protein Albumin Globulin Albumin/Globulin Ratio 03/17/18 03/18/18 03/18/18 23:42 04:05 05:39 WBC RBC Hgb Hct MCV MCH MCHC RDW Plt Count MPV Neut % (Auto) Lymph % (Auto) [place] % (Auto) Eos % (Auto) Baso % (Auto) Neut # (Auto) Lymph # (Auto) [place] # (Auto) Eos # (Auto) Baso # (Auto) Neutrophils % (Manual) Band Neutrophils % Lymphocytes % (Manual) Monocytes % (Manual) Eosinophils % (Manual) Platelet Estimate Hypochromasia (manual) Anisocytosis (manual) Fibrinogen Fibrin Degrad Products Fibrin Degrad Prod, Qt Puncture Site L brac pCO2 32 L pO2 77 L HCO3 24.8 ABG pH 7.47 H ABG Total CO2 24.3 ABG O2 Saturation 98.7 H ABG Base Excess -0.1 ABG Hemoglobin 8.2 L ABG Carboxyhemoglobin 1.8 H POC ABG HHb (Measured) 1.3 ABG Methemoglobin 1.3 Lionel Test Na A-a O2 Difference 168.0 Respiratory Index 2.2 Hgb O2 Saturation 95.6 Vent Mode Prvc Mechanical Rate 10 FiO2 40.0 Tidal Volume 400 PEEP 5 Sodium Potassium Chloride Carbon Dioxide Anion Gap BUN Creatinine Est GFR ( Amer) Est GFR (Non-Af Amer) POC Glucose (mg/dL) 101 157 H Random Glucose Calcium Phosphorus Magnesium Total Bilirubin AST ALT Alkaline Phosphatase Total Protein Albumin Globulin Albumin/Globulin Ratio 03/18/18 03/18/18 03/18/18 06:14 06:14 07:51 WBC 20.1 H RBC 2.58 L Hgb 7.9 L Hct 23.7 L MCV 91.9 MCH 30.7 MCHC 33.5 RDW 15.5 H Plt Count 100 L D MPV 7.5 Neut % (Auto) 91.8 H Lymph % (Auto) 4.7 L [place] % (Auto) 2.6 Eos % (Auto) 0.8 Baso % (Auto) 0.1 Neut # (Auto) 18.5 H Lymph # (Auto) 0.9 L [place] # (Auto) 0.5 Eos # (Auto) 0.2 Baso # (Auto) 0.0 Neutrophils % (Manual) 83 H Band Neutrophils % 7 H Lymphocytes % (Manual) 6 L Monocytes % (Manual) 3 Eosinophils % (Manual) 1 Platelet Estimate Decreased L Hypochromasia (manual) Slight Anisocytosis (manual) Slight Fibrinogen Fibrin Degrad Products Fibrin Degrad Prod, Qt Puncture Site pCO2 pO2 HCO3 ABG pH ABG Total CO2 ABG O2 Saturation ABG Base Excess ABG Hemoglobin ABG Carboxyhemoglobin POC ABG HHb (Measured) ABG Methemoglobin Lionel Test A-a O2 Difference Respiratory Index Hgb O2 Saturation Vent Mode Mechanical Rate FiO2 Tidal Volume PEEP Sodium 145 Potassium 4.1 Chloride 115 H Carbon Dioxide 24 Anion Gap 11 BUN 52 H Creatinine 3.9 H Est GFR ( Amer) 18 Est GFR (Non-Af Amer) 15 POC Glucose (mg/dL) 167 H Random Glucose 149 H Calcium 6.8 L Phosphorus 1.9 L Magnesium 1.9 Total Bilirubin 0.5 AST 84 H D ALT 49 Alkaline Phosphatase 161 H Total Protein 5.5 L Albumin 2.4 L Globulin 3.1 Albumin/Globulin Ratio 0.8 L 03/18/18 03/18/18 09:52 12:04 WBC RBC Hgb Hct MCV MCH MCHC RDW Plt Count MPV Neut % (Auto) Lymph % (Auto) [place] % (Auto) Eos % (Auto) Baso % (Auto) Neut # (Auto) Lymph # (Auto) [place] # (Auto) Eos # (Auto) Baso # (Auto) Neutrophils % (Manual) Band Neutrophils % Lymphocytes % (Manual) Monocytes % (Manual) Eosinophils % (Manual) Platelet Estimate Hypochromasia (manual) Anisocytosis (manual) Fibrinogen 564 H Fibrin Degrad Products Positive H Fibrin Degrad Prod, Qt >40 H Puncture Site pCO2 pO2 HCO3 ABG pH ABG Total CO2 ABG O2 Saturation ABG Base Excess ABG Hemoglobin ABG Carboxyhemoglobin POC ABG HHb (Measured) ABG Methemoglobin Lionel Test A-a O2 Difference Respiratory Index Hgb O2 Saturation Vent Mode Mechanical Rate FiO2 Tidal Volume PEEP Sodium Potassium Chloride Carbon Dioxide Anion Gap BUN Creatinine Est GFR ( Amer) Est GFR (Non-Af Amer) POC Glucose (mg/dL) 193 H Random Glucose Calcium Phosphorus Magnesium Total Bilirubin AST ALT Alkaline Phosphatase Total Protein Albumin Globulin Albumin/Globulin Ratio Critical Care Progress Note - Nutrition Nutrition: Nutrition Category Date Time Status NPO Diet [DIET] Diets 03/14/18 Breakfast Active Assessment/Plan - Assessment and Plan (Free Text) Plan: above patient seen and examined at bedside. Above resident documents my clinical management and physical exam - Date & Time Date: 03/19/18 Time: 12:13
[2018-03-17] MEDS ORDERED: Acetaminophen 650mg/20.3ml solution UD PO ONE (11:30)
--- NOTE | 2018-03-17 16:33 | CT ---
Date of service: 03/17/2018 PROCEDURE: CT HEAD WITHOUT CONTRAST. HISTORY: AMS COMPARISON: CT head dated 01/13/2018 TECHNIQUE: Axial computed tomography images were obtained through the head/brain without intravenous contrast. Radiation dose: Total exam DLP = 1180.57 mGy-cm. This CT exam was performed using one or more of the following dose reduction techniques: Automated exposure control, adjustment of the mA and/or kV according to patient size, and/or use of iterative reconstruction technique. FINDINGS: HEMORRHAGE: No intracranial hemorrhage. BRAIN: No mass effect or edema. Atrophy. Chronic microvascular ischemic changes. Bilateral basal ganglia and left cerebellar lacunar infarctions redemonstrated. Focus of encephalomalacia redemonstrated in the left occipital lobe. VENTRICLES: Unremarkable. No hydrocephalus. CALVARIUM: Unremarkable. PARANASAL SINUSES: Unremarkable as visualized. No significant inflammatory changes. MASTOID AIR CELLS: Unremarkable as visualized. No inflammatory changes. OTHER FINDINGS: Partially imaged nasogastric and endotracheal tubes. IMPRESSION: No acute intracranial pathology. Age-related changes. No significant interval change.
--- NOTE | 2018-03-17 18:06 | CP.PCM.PN ---
Subjective - Date & Time of Evaluation Date of Evaluation: 03/17/18 Time of Evaluation: 08:15 - Subjective Subjective: clinically same Objective - Vital Signs/Intake and Output Vital Signs (last 24 hours): Temp Pulse Resp BP Pulse Ox 98.1 F 70 14 133/46 L 100 03/17/18 16:00 03/17/18 17:00 03/17/18 17:00 03/17/18 16:49 03/17/18 17:00 Intake and Output: 03/17/18 03/17/18 06:59 18:59 Intake Total 2091.6 2091.0 Output Total 1090 655 Balance 1001.6 1436.0 - Medications Medications: Current Medications Albuterol/Ipratropium (Duoneb 3 Mg/0.5 Mg (3 Ml) Ud) 3 ml INH RQ6 NEL Last Admin: 03/17/18 13:07 Dose: 3 ml Piperacillin Sod/Tazobactam (Sod 2.25 gm/ Sodium Chloride) 100 mls @ 200 mls/hr IVPB Q8H NEL; Protocol Last Admin: 03/17/18 17:02 Dose: 200 mls/hr Sodium Bicarbonate 150 meq/ (Dextrose) 1,150 mls @ 100 mls/hr IV .[id number] NEL Last Admin: 03/17/18 11:00 Dose: 100 mls/hr Insulin Human Regular (Novolin R) 0 unit SC Q4 NEL; Protocol Last Admin: 03/17/18 16:24 Dose: 1 units Lorazepam (Ativan) 2 mg IVP Q4H PRN PRN Reason: Anxiety Last Admin: 03/16/18 23:02 Dose: 2 mg Morphine Sulfate (Morphine) 2 mg IV Q6 PRN PRN Reason: Pain, moderate (4-7) Last Admin: 03/16/18 21:31 Dose: 2 mg Pantoprazole Sodium (Protonix Inj) 40 mg IVP DAILY [facility] Last Admin: 03/17/18 09:06 Dose: 40 mg Pneumococcal Polyvalent Vaccine (Pneumovax 23 Vaccine) 0.5 ml IM .ONCE ONE Stop: 03/19/18 10:01 Valproate Sodium (Depakene Oral Soln) 250 mg PO BID NEL Last Admin: 03/17/18 17:03 Dose: 250 mg - Labs Labs: 03/17/18 06:32 03/17/18 06:32 PT 13.4 SECONDS (9.7-12.2) H 03/14/18 15:49 INR 1.2 03/14/18 15:49 APTT 59 SECONDS (21-34) H D 03/16/18 10:48
--- NOTE | 2018-03-17 23:00 | CP.PCM.CON ---
History of Present Illness - History of Present Illness History of Present Illness: dictated Past Patient History - Infectious Disease Hx of Infectious Diseases: None - Tetanus Immunizations Tetanus Immunization: Unknown - Past Medical History & Family History Past Medical History?: Yes - Past Social History Smoking Status: Unknown If Ever Smoked - CARDIAC Hx Hypertension: Yes - PULMONARY Hx Respiratory Disorders: Yes - NEUROLOGICAL Hx Alzheimer's Disease: Yes Hx Dementia: Yes - HEENT Hx HEENT Problems: No - RENAL Hx Chronic Kidney Disease: Yes - ENDOCRINE/METABOLIC Hx Endocrine Disorders: Yes Hx Diabetes Mellitus Type 2: Yes - HEMATOLOGICAL/ONCOLOGICAL Hx Anemia: Yes - INTEGUMENTARY Hx Dermatological Problems: Yes Other/Comment: sacral wound, multiple wound/ ulcers - MUSCULOSKELETAL/RHEUMATOLOGICAL Hx Falls: No - GASTROINTESTINAL Hx Gastrointestinal Disorders: Yes Hx Colostomy: Yes (right side) Hx Gastroesophageal Reflux: Yes - GENITOURINARY/GYNECOLOGICAL Hx Genitourinary Disorders: Yes - PSYCHIATRIC Hx Anxiety: Yes Hx Schizophrenia: Yes Hx Substance Use: No - SURGICAL HISTORY Hx Surgeries: No - ANESTHESIA Hx Anesthesia: No Hx Anesthesia Reactions: No Meds Allergies/Adverse Reactions: Allergies Allergy/AdvReac Type Severity Reaction Status Date / Time No Known Allergies Allergy Verified 03/14/18 15:28 - Medications Medications: Current Medications Albuterol/Ipratropium (Duoneb 3 Mg/0.5 Mg (3 Ml) Ud) 3 ml INH RQ6 NEL Last Admin: 03/17/18 19:25 Dose: 3 ml Piperacillin Sod/Tazobactam (Sod 2.25 gm/ Sodium Chloride) 100 mls @ 200 mls/hr IVPB Q8H NEL; Protocol Last Admin: 03/17/18 17:02 Dose: 200 mls/hr Sodium Bicarbonate 150 meq/ (Dextrose) 1,150 mls @ 100 mls/hr IV .[id number] NEL Last Admin: 03/17/18 11:00 Dose: 100 mls/hr Insulin Human Regular (Novolin R) 0 unit SC Q4 NEL; Protocol Last Admin: 03/17/18 20:43 Dose: 1 units Lorazepam (Ativan) 2 mg IVP Q4H PRN PRN Reason: Anxiety Last Admin: 03/16/18 23:02 Dose: 2 mg Morphine Sulfate (Morphine) 2 mg IV Q6 PRN PRN Reason: Pain, moderate (4-7) Last Admin: 03/16/18 21:31 Dose: 2 mg Pantoprazole Sodium (Protonix Inj) 40 mg IVP DAILY [facility] Last Admin: 03/17/18 09:06 Dose: 40 mg Pneumococcal Polyvalent Vaccine (Pneumovax 23 Vaccine) 0.5 ml IM .ONCE ONE Stop: 03/19/18 10:01 Valproate Sodium (Depakene Oral Soln) 250 mg PO BID [facility] Last Admin: 03/17/18 17:03 Dose: 250 mg Results - Vital Signs Recent Vital Signs: Last Vital Signs Temp 98.3 F 03/17/18 20:00 Pulse 71 03/17/18 22:00 Resp 19 03/17/18 22:00 BP 144/44 L 03/17/18 22:00 Pulse Ox 100 03/17/18 22:00 - Labs Result Diagrams: 03/17/18 06:32 03/17/18 06:32 Labs: Laboratory Results - last 24 hr 03/15/18 03/15/18 03/17/18 04:31 15:13 00:29 WBC RBC Hgb Hct MCV MCH MCHC RDW Plt Count MPV Neut % (Auto) Lymph % (Auto) [place] % (Auto) Eos % (Auto) Baso % (Auto) Neut # (Auto) Lymph # (Auto) [place] # (Auto) Eos # (Auto) Baso # (Auto) Neutrophils % (Manual) Band Neutrophils % 22 H* Lymphocytes % (Manual) Reactive Lymphs % Monocytes % (Manual) Toxic Granulation Platelet Estimate Anisocytosis (manual) Puncture Site pCO2 pO2 HCO3 ABG pH ABG Total CO2 ABG O2 Saturation ABG Base Excess ABG Hemoglobin ABG Carboxyhemoglobin POC ABG HHb (Measured) ABG Methemoglobin Lionel Test A-a O2 Difference Respiratory Index Hgb O2 Saturation Vent Mode Mechanical Rate FiO2 Tidal Volume PEEP Sodium Potassium Chloride Carbon Dioxide Anion Gap BUN Creatinine Est GFR ( Amer) Est GFR (Non-Af Amer) POC Glucose (mg/dL) 140 H Random Glucose Calcium Phosphorus Magnesium Total Bilirubin AST ALT Alkaline Phosphatase Total Protein Albumin Globulin Albumin/Globulin Ratio Blood Type O POSITIVE Antibody Screen Negative 03/17/18 03/17/18 03/17/18 05:22 06:32 06:32 WBC 16.6 H RBC 2.61 L Hgb 7.9 L Hct 23.9 L MCV 91.5 MCH 30.3 MCHC 33.1 RDW 15.9 H Plt Count 142 MPV 6.9 L Neut % (Auto) 88.1 H Lymph % (Auto) 7.7 L [place] % (Auto) 3.5 Eos % (Auto) 0.4 Baso % (Auto) 0.3 Neut # (Auto) 14.7 H Lymph # (Auto) 1.3 [place] # (Auto) 0.6 Eos # (Auto) 0.1 Baso # (Auto) 0.0 Neutrophils % (Manual) 78 H Band Neutrophils % 8 H Lymphocytes % (Manual) 10 L Reactive Lymphs % 2 H Monocytes % (Manual) 2 Toxic Granulation Present Platelet Estimate Normal Anisocytosis (manual) Slight Puncture Site A-line pCO2 28 L pO2 97 HCO3 18.2 L ABG pH 7.36 ABG Total CO2 16.7 L ABG O2 Saturation 99.4 H ABG Base Excess -8.7 L ABG Hemoglobin 8.2 L ABG Carboxyhemoglobin 1.8 H POC ABG HHb (Measured) 0.6 ABG Methemoglobin 0.9 Lionel Test Na A-a O2 Difference 153.0 Respiratory Index 1.6 Hgb O2 Saturation 96.7 Vent Mode Prvc Mechanical Rate 10 FiO2 40.0 Tidal Volume 400 PEEP 5 Sodium 146 Potassium 4.5 Chloride 120 H Carbon Dioxide 15 L Anion Gap 15 BUN 53 H Creatinine 4.3 H Est GFR ( Amer) 17 Est GFR (Non-Af Amer) 14 POC Glucose (mg/dL) Random Glucose 151 H Calcium 7.0 L Phosphorus 2.4 L Magnesium 2.0 Total Bilirubin 0.5 AST 110 H D ALT 56 Alkaline Phosphatase 152 H D Total Protein 5.8 L Albumin 2.6 L Globulin 3.2 Albumin/Globulin Ratio 0.8 L Blood Type Antibody Screen 03/17/18 03/17/18 03/17/18 08:09 11:19 15:44 WBC RBC Hgb Hct MCV MCH MCHC RDW Plt Count MPV Neut % (Auto) Lymph % (Auto) [place] % (Auto) Eos % (Auto) Baso % (Auto) Neut # (Auto) Lymph # (Auto) [place] # (Auto) Eos # (Auto) Baso # (Auto) Neutrophils % (Manual) Band Neutrophils % Lymphocytes % (Manual) Reactive Lymphs % Monocytes % (Manual) Toxic Granulation Platelet Estimate Anisocytosis (manual) Puncture Site pCO2 pO2 HCO3 ABG pH ABG Total CO2 ABG O2 Saturation ABG Base Excess ABG Hemoglobin ABG Carboxyhemoglobin POC ABG HHb (Measured) ABG Methemoglobin Lionel Test A-a O2 Difference Respiratory Index Hgb O2 Saturation Vent Mode Mechanical Rate FiO2 Tidal Volume PEEP Sodium Potassium Chloride Carbon Dioxide Anion Gap BUN Creatinine Est GFR ( Amer) Est GFR (Non-Af Amer) POC Glucose (mg/dL) 175 H 189 H 189 H Random Glucose Calcium Phosphorus Magnesium Total Bilirubin AST ALT Alkaline Phosphatase Total Protein Albumin Globulin Albumin/Globulin Ratio Blood Type Antibody Screen 03/17/18 20:08 WBC RBC Hgb Hct MCV MCH MCHC RDW Plt Count MPV Neut % (Auto) Lymph % (Auto) [place] % (Auto) Eos % (Auto) Baso % (Auto) Neut # (Auto) Lymph # (Auto) [place] # (Auto) Eos # (Auto) Baso # (Auto) Neutrophils % (Manual) Band Neutrophils % Lymphocytes % (Manual) Reactive Lymphs % Monocytes % (Manual) Toxic Granulation Platelet Estimate Anisocytosis (manual) Puncture Site pCO2 pO2 HCO3 ABG pH ABG Total CO2 ABG O2 Saturation ABG Base Excess ABG Hemoglobin ABG Carboxyhemoglobin POC ABG HHb (Measured) ABG Methemoglobin Lionel Test A-a O2 Difference Respiratory Index Hgb O2 Saturation Vent Mode Mechanical Rate FiO2 Tidal Volume PEEP Sodium Potassium Chloride Carbon Dioxide Anion Gap BUN Creatinine Est GFR ( Amer) Est GFR (Non-Af Amer) POC Glucose (mg/dL) 154 H Random Glucose Calcium Phosphorus Magnesium Total Bilirubin AST ALT Alkaline Phosphatase Total Protein Albumin Globulin Albumin/Globulin Ratio Blood Type Antibody Screen
[2018-03-18] MEDS: Piperacillin/Tazobact 2.25 GM in Sodium Chloride 100 ML IVPB SCH ×3 (01:00→17:37)
[2018-03-18] MEDS: Albuterol-Ipratrop 3 mg / 0.5 (3 ml) UD INH SCH ×4 (02:00→20:23)
[2018-03-18] MEDS: (Novolin R) Insulin Human Regular 100 units/ml vial SC SCH ×6 (04:27→20:50)
[2018-03-18 06:21] LABS: BASO % 0.1 % (0.0-2.0); EOS # 0.2 K/uL (0.0-0.7); EOS % 0.8 % (0.0-4.0); HEMOGLOBIN 7.9 g/dL (12.0-18.0); LYMPH # 0.9 K/uL (1.0-4.3); LYMPH % 4.7 % (20.0-40.0); MEAN CELL VOLUME 91.9 fL (80.0-94.0); MEAN CORPUSCULAR HEMOGLOBIN 30.7 pg (27.0-31.0); MEAN CORPUSCULAR HGB CONC 33.5 g/dL (33.0-37.0); MEAN PLATELET VOLUME 7.5 fL (7.2-11.7); MONO # 0.5 K/uL (0.0-0.8); MONO % 2.6 % (0.0-10.0); NEUT # 18.5 K/uL (1.8-7.0); NEUT % 91.8 % (50.0-75.0); NRBC % 0.1 % (0.0-2.0); PLATELET COUNT 100 K/uL (130-400); RBC 2.58 Mil/uL (4.40-5.90); RED CELL DISTRIBUTION WIDTH 15.5 % (11.5-14.5); WHITE BLOOD COUNT 20.1 K/uL (4.8-10.8)
[2018-03-18 06:38] LABS: ARTERIAL BLOOD GAS HCO3 24.8 mmol/L (21-28); ARTERIAL BLOOD GAS HEMOGLOBIN 8.2 g/dL (11.7-17.4); ARTERIAL BLOOD GAS O2 SAT 98.7 % (95-98); ARTERIAL BLOOD GAS PCO2 32 mm/Hg (35-45); ARTERIAL BLOOD GAS PH 7.47 (7.35-7.45); ARTERIAL BLOOD GAS PO2 77 mm/Hg (80-100); ARTERIAL BLOOD GAS TCO2 24.3 mmol/L (22-28)
[2018-03-18 06:57] LABS: ALB/GLOB RATIO 0.8 (1.0-2.1); ALBUMIN 2.4 g/dL (3.5-5.0); CALCIUM 6.8 mg/dl (8.6-10.4)
[2018-03-18 08:19] LABS: BANDS 7 % (0-2); EOSINOPHIL 1 % (0-4); LYMPHOCYTE 6 % (20-40); MONOCYTE 3 % (0-10); NEUTROPHIL 83 % (50-75); TOTAL CELLS COUNTED 100
[2018-03-18 08:20] LABS: ANISOCYTOSIS SLIGHT; HYPOCHROMIC SLIGHT; PLATELET ESTIMATE DECREASED (NORMAL)
[2018-03-18] MEDS ORDERED: Vancomycin 1 gm/NS 200 ml 1 GM/200 ML BAG IVPB ONE (09:15)
[2018-03-18] MEDS ORDERED: Sodium Chloride 0.9% 1,000 ML IV ONE (09:37)
[2018-03-18] MEDS: Valproic Acid 250 mg/5 ml UD Cup PO SCH ×2 (10:15→17:37)
[2018-03-18] MEDS: Sodium Bicarbonate 8.4% 150 MEQ in Dextrose 5% In Water 1,000 ML IV SCH ×3 (10:17→23:05)
[2018-03-18 10:18] LABS: FDP INTERPRETATION POSITIVE (NEGATIVE); FDP QUANTITY >40 ug/mL (<10); FIBRINOGEN 564 mg/dL (200-400)
--- NOTE | 2018-03-18 12:28 | CP.PCM.PN ---
Subjective - Date & Time of Evaluation Date of Evaluation: 03/18/18 Time of Evaluation: 12:26 - Subjective Subjective: Vascular Surgery Consult Note for Dr. Ceron This 72M was seen and examined this AM. He is currently hypotensive systolic in the 70's. RLE is warm down to the ankle with necrotic RLE digits. Mendes also noted noted to have copious precipitates. Objective - Vital Signs/Intake and Output Vital Signs (last 24 hours): Temp Pulse Resp BP Pulse Ox 99.9 F H 75 28 H 135/35 L 100 03/18/18 11:15 03/18/18 11:00 03/18/18 11:00 03/18/18 11:00 03/18/18 11:00 Intake and Output: 03/18/18 03/18/18 06:59 18:59 Intake Total 1660 1890 Output Total 490 200 Balance 1170 1690 - Medications Medications: Current Medications Albuterol/Ipratropium (Duoneb 3 Mg/0.5 Mg (3 Ml) Ud) 3 ml INH RQ6 NEL Last Admin: 03/18/18 08:01 Dose: 3 ml Piperacillin Sod/Tazobactam (Sod 2.25 gm/ Sodium Chloride) 100 mls @ 200 mls/hr IVPB Q8H NEL; Protocol Last Admin: 03/18/18 10:39 Dose: 200 mls/hr Sodium Bicarbonate 150 meq/ (Dextrose) 1,150 mls @ 100 mls/hr IV .[id number] NEL Last Admin: 03/18/18 11:34 Dose: 100 mls/hr Insulin Human Regular (Novolin R) 0 unit SC Q4 NEL; Protocol Last Admin: 03/18/18 08:28 Dose: 1 units Lorazepam (Ativan) 2 mg IVP Q4H PRN PRN Reason: Anxiety Last Admin: 03/16/18 23:02 Dose: 2 mg Morphine Sulfate (Morphine) 2 mg IV Q6 PRN PRN Reason: Pain, moderate (4-7) Last Admin: 03/16/18 21:31 Dose: 2 mg Nystatin (Nystop Topical Powder) 1 applic TOP BID NEL Last Admin: 03/18/18 11:35 Dose: 1 applic Pantoprazole Sodium (Protonix Inj) 40 mg IVP DAILY [facility] Last Admin: 11/02/18 10:15 Dose: 40 mg Pneumococcal Polyvalent Vaccine (Pneumovax 23 Vaccine) 0.5 ml IM .ONCE ONE Stop: 03/19/18 10:01 Valproate Sodium (Depakene Oral Soln) 250 mg PO BID NEL Last Admin: 03/18/18 10:15 Dose: 250 mg - Labs Labs: 03/18/18 06:14 03/18/18 06:14 PT 13.4 SECONDS (9.7-12.2) H 03/14/18 15:49 INR 1.2 03/14/18 15:49 APTT 59 SECONDS (21-34) H D 03/16/18 10:48 - Constitutional Appears: Toxic - Eye Exam Eye Exam: EOMI - Respiratory Exam Additional comments: Ventilated - Cardiovascular Exam Cardiovascular Exam: +S1, +S2 - GI/Abdominal Exam GI & Abdominal Exam: Soft - Extremities Exam Additional comments: Distal RLE ischemic. - Neurological Exam Neurological Exam: Alert, Awake Assessment and Plan - Assessment and Plan (Free Text) Assessment: 72M with septic shock secondary to limb vs UTI ACS operative mortality calculated 83.3% Prognosis critical Not a surgical candidate at this time D/W Dr. Jie Madsen PGY3
--- NOTE | 2018-03-18 13:14 | CP.PCM.PN ---
Subjective - Date & Time of Evaluation Date of Evaluation: 03/18/18 Time of Evaluation: 13:12 - Subjective Subjective: remains unresponive, nented UO sl better still with advanced renal failure Feet appear more ischemic Objective - Vital Signs/Intake and Output Vital Signs (last 24 hours): Temp Pulse Resp BP Pulse Ox 99.9 F H 75 28 H 135/35 L 100 03/18/18 11:15 03/18/18 11:00 03/18/18 11:00 03/18/18 11:00 03/18/18 11:00 Intake and Output: 03/18/18 03/18/18 06:59 18:59 Intake Total 1660 1890 Output Total 490 200 Balance 1170 1690 - Medications Medications: Current Medications Albuterol/Ipratropium (Duoneb 3 Mg/0.5 Mg (3 Ml) Ud) 3 ml INH RQ6 [facility] Last Admin: 03/18/18 08:01 Dose: 3 ml Piperacillin Sod/Tazobactam (Sod 2.25 gm/ Sodium Chloride) 100 mls @ 200 mls/hr IVPB Q8H [facility]; Protocol Last Admin: 03/18/18 10:39 Dose: 200 mls/hr Sodium Bicarbonate 150 meq/ (Dextrose) 1,150 mls @ 100 mls/hr IV .[id number] [facility] Last Admin: 03/18/18 11:34 Dose: 100 mls/hr Insulin Human Regular (Novolin R) 0 unit SC Q4 [facility]; Protocol Last Admin: 03/18/18 12:36 Dose: 1 units Lorazepam (Ativan) 2 mg IVP Q4H PRN PRN Reason: Anxiety Last Admin: 03/16/18 23:02 Dose: 2 mg Morphine Sulfate (Morphine) 2 mg IV Q6 PRN PRN Reason: Pain, moderate (4-7) Last Admin: 03/16/18 21:31 Dose: 2 mg Nystatin (Nystop Topical Powder) 1 applic TOP BID [facility] Last Admin: 03/18/18 11:35 Dose: 1 applic Pantoprazole Sodium (Protonix Inj) 40 mg IVP DAILY [facility] Last Admin: 03/18/18 10:15 Dose: 40 mg Pneumococcal Polyvalent Vaccine (Pneumovax 23 Vaccine) 0.5 ml IM .ONCE ONE Stop: 03/19/18 10:01 Valproate Sodium (Depakene Oral Soln) 250 mg PO BID NEL Last Admin: 03/18/18 10:15 Dose: 250 mg - Labs Labs: 03/18/18 06:14 03/18/18 06:14 PT 13.4 SECONDS (9.7-12.2) H 03/14/18 15:49 INR 1.2 03/14/18 15:49 APTT 59 SECONDS (21-34) H D 03/16/18 10:48 - Constitutional Appears: In Acute Distress, Cachectic, Chronically Ill - Head Exam Head Exam: ATRAUMATIC, NORMAL INSPECTION - Neck Exam Neck Exam: Normal Inspection. absent: Tenderness - Respiratory Exam Respiratory Exam: Clear to Ausculation Bilateral, NORMAL BREATHING PATTERN - Cardiovascular Exam Cardiovascular Exam: Tachycardia, +S1 - GI/Abdominal Exam GI & Abdominal Exam: Soft. absent: Tenderness - Extremities Exam Extremities Exam: Normal Inspection. absent: Tenderness - Neurological Exam Neurological Exam: Altered - Skin Skin Exam: Dry, Warm Assessment and Plan (1) Sepsis Status: Acute (2) JOY (acute kidney injury) Status: Acute (3) CKD (chronic kidney disease) stage 4, GFR 15-29 ml/min Status: Acute (4) UTI (urinary tract infection) Status: Acute (5) Dementia Status: Chronic - Assessment and Plan (Free Text) Plan: IV fluids Supportive care
--- NOTE | 2018-03-18 14:13 | CP.CCUPN ---
<Tony Carrillo - Last Filed: 03/18/18 17:45> CCU Subjective - Physician Review Events Since Last Encounter (Free Text): 03/18/18 17:44 No acute events overnight Subjective (Free Text): 03/18/18 17:43 PGY1 Critical Care Progress Note for Dr. Hernandes Patient was seen at bedside this morning. No acute events overnight. Patient minimally responsive. Patient intubated. ROS could not be obtained due to clinical condition. Critical Care Time Spent (in minutes): 35 CCU Objective - Vital Signs / Intake & Output Vital Signs (Last 4 hours): Vital Signs Temp Pulse Resp BP BP Pulse Ox 03/18/18 11:15 99.9 F H 03/18/18 11:00 75 28 H 135/35 L 100 03/18/18 10:49 74 28 H 125/35 L 100 03/18/18 10:37 72 27 H 113/34 L 100 03/18/18 10:15 101.3 F H 03/18/18 10:01 73 88 L 03/18/18 10:00 113/34 L 03/18/18 09:49 74 107/27 L 90 L Intake and Output (Last 8hrs): Intake & Output 03/17/18 03/18/18 03/18/18 22:59 06:59 14:59 Intake Total 1340 1140 1890 Output Total 470 380 200 Balance 240 625 0558 Weight 115 lb 12.8 oz Intake: Intake, IV Amount 871 431 7949 Left Thumb 20 R subcl PermCAth 700 800 500 Right Antecubital 100 100 300 Right Antecubital Y 1000 Right Hand 100 10 Tube Feeding 240 240 60 Other 200 Output: Urine 195 380 200 Urethral (Mendes) 195 380 200 Stool 275 - Physical Exam Head: Positive for: Atraumatic, Normocephalic Pupils: Positive for: PERRL Extroacular Muscles: Positive for: EOMI Mouth: Positive for: Dry Neck: Positive for: Normal Range of Motion. Negative for: JVD Respiratory/Chest: Positive for: Clear to Auscultation. Negative for: Respiratory Distress, Decreased Breath Sounds Cardiovascular: Positive for: Regular Rate and Rhythm, Normal S1, S2 Abdomen: Positive for: Ostomy Tubes (iliostomy bag clean and dry). Negative for: Tenderness, Distention Upper Extremity: Positive for: Normal Inspection, Capillary Refill < 2s. Negative for: Edema Lower Extremity: Negative for: Normal Inspection, Edema, CALF TENDERNESS, NORMAL PULSES (Left lower extremity is cool to touch compared to the right. No pulses palpable on left lower extremity for pedal and/or popliteal pulses. ) Skin: Positive for: Other (Left Foot: Cold, mottled, dark purple/black in color) Psychiatric: Positive for: Alert. Negative for: Oriented x 3 - Medications Active Medications: Active Medications Generic Name Dose Route Start Last Admin Trade Name Freq PRN Reason Stop Dose Admin Albuterol/Ipratropium 3 ml 03/14/18 20:00 03/18/18 08:01 Duoneb 3 Mg/0.5 Mg (3 Ml) Ud INH 3 ml RQ6 NEL Administration Piperacillin Sod/Tazobactam 100 mls @ 200 mls/hr 03/15/18 02:00 03/18/18 10:39 Sod 2.25 gm/ Sodium Chloride IVPB 200 mls/hr Q8H NEL Administration Protocol Sodium Bicarbonate 150 meq/ 1,150 mls @ 100 mls/hr 03/17/18 11:00 03/18/18 11:34 Dextrose IV 100 mls/hr .[id number] NEL Administration Insulin Human Regular 0 unit 03/14/18 20:36 03/18/18 12:36 Novolin R SC 1 units Q4 NEL Administration Protocol Lorazepam 2 mg 03/16/18 22:55 03/16/18 23:02 Ativan IVP 2 mg Q4H PRN Administration Anxiety Morphine Sulfate 2 mg 03/16/18 22:00 03/16/18 21:31 Morphine IV 2 mg Q6 PRN Administration Pain, moderate (4-7) Nystatin 1 applic 03/18/18 11:00 03/18/18 11:35 Nystop Topical Powder TOP 1 applic BID NEL Administration Pantoprazole Sodium 40 mg 03/15/18 10:00 03/18/18 10:15 Protonix Inj IVP 40 mg DAILY NEL Administration Pneumococcal Polyvalent Vaccine 0.5 ml 03/19/18 10:00 Pneumovax 23 Vaccine IM 03/19/18 10:01 .ONCE ONE Valproate Sodium 250 mg 03/17/18 10:30 03/18/18 10:15 Depakene Oral Soln PO 250 mg BID NEL Administration - Patient Studies Lab Studies: Microbiology Studies 03/14/18 17:56 Blood Culture - Preliminary Blood NO GROWTH AFTER 3 DAYS 03/14/18 15:50 Blood Culture - Preliminary Blood NO GROWTH AFTER 3 DAYS Lab Studies 03/18/18 03/18/18 03/18/18 Range/Units 12:04 09:52 07:51 WBC (4.8-10.8) K/uL RBC (4.40-5.90) Mil/uL Hgb (12.0-18.0) g/dL Hct (35.0-51.0) % MCV (80.0-94.0) fL MCH (27.0-31.0) pg MCHC (33.0-37.0) g/dL RDW (11.5-14.5) % Plt Count (130-400) K/uL MPV (7.2-11.7) fL Neut % (Auto) (50.0-75.0) % Lymph % (Auto) (20.0-40.0) % Boyle % (Auto) (0.0-10.0) % Eos % (Auto) (0.0-4.0) % Baso % (Auto) (0.0-2.0) % Neut # (Auto) (1.8-7.0) K/uL Lymph # (Auto) (1.0-4.3) K/uL Boyle # (Auto) (0.0-0.8) K/uL Eos # (Auto) (0.0-0.7) K/uL Baso # (Auto) (0.0-0.2) K/uL Neutrophils % (Manual) (50-75) % Band Neutrophils % (0-2) % Lymphocytes % (Manual) (20-40) % Monocytes % (Manual) (0-10) % Eosinophils % (Manual) (0-4) % Platelet Estimate (NORMAL) Hypochromasia (manual) Anisocytosis (manual) Fibrinogen 564 H (200-400) mg/dL Fibrin Degrad Products Positive H (NEGATIVE) Fibrin Degrad Prod, Qt >40 H (<10) ug/mL Puncture Site pCO2 (35-45) mm/Hg pO2 (80-100) mm/Hg HCO3 (21-28) mmol/L ABG pH (7.35-7.45) ABG Total CO2 (22-28) mmol/L ABG O2 Saturation (95-98) % ABG Base Excess (-2.0-3.0) mmol/L ABG Hemoglobin (11.7-17.4) g/dL ABG Carboxyhemoglobin (0.5-1.5) % POC ABG HHb (Measured) (0.0-5.0) % ABG Methemoglobin (0.0-3.0) % Lionel Test A-a O2 Difference mm/Hg Respiratory Index Hgb O2 Saturation (95.0-98.0) % Vent Mode Mechanical Rate FiO2 % Tidal Volume PEEP Sodium (132-148) mmol/L Potassium (3.6-5.2) mmol/L Chloride (98-107) mmol/L Carbon Dioxide (22-30) mmol/L Anion Gap (10-20) BUN (9-20) mg/dL Creatinine (0.8-1.5) mg/dL Est GFR ( Amer) Est GFR (Non-Af Amer) POC Glucose (mg/dL) 193 H 167 H (65-110) mg/dL Random Glucose (75-110) mg/dL Calcium (8.6-10.4) mg/dl Phosphorus (2.5-4.5) mg/dL Magnesium (1.6-2.3) mg/dL Total Bilirubin (0.2-1.3) mg/dL AST (17-59) U/L ALT (21-72) U/L Alkaline Phosphatase (38-126) U/L Total Protein (6.3-8.3) g/dL Albumin (3.5-5.0) g/dL Globulin (2.2-3.9) gm/dL Albumin/Globulin Ratio (1.0-2.1) 03/18/18 03/18/18 03/18/18 Range/Units 06:14 06:14 05:39 WBC 20.1 H (4.8-10.8) K/uL RBC 2.58 L (4.40-5.90) Mil/uL Hgb 7.9 L (12.0-18.0) g/dL Hct 23.7 L (35.0-51.0) % MCV 91.9 (80.0-94.0) fL MCH 30.7 (27.0-31.0) pg MCHC 33.5 (33.0-37.0) g/dL RDW 15.5 H (11.5-14.5) % Plt Count 100 L D (130-400) K/uL MPV 7.5 (7.2-11.7) fL Neut % (Auto) 91.8 H (50.0-75.0) % Lymph % (Auto) 4.7 L (20.0-40.0) % Boyle % (Auto) 2.6 (0.0-10.0) % Eos % (Auto) 0.8 (0.0-4.0) % Baso % (Auto) 0.1 (0.0-2.0) % Neut # (Auto) 18.5 H (1.8-7.0) K/uL Lymph # (Auto) 0.9 L (1.0-4.3) K/uL Boyle # (Auto) 0.5 (0.0-0.8) K/uL Eos # (Auto) 0.2 (0.0-0.7) K/uL Baso # (Auto) 0.0 (0.0-0.2) K/uL Neutrophils % (Manual) 83 H (50-75) % Band Neutrophils % 7 H (0-2) % Lymphocytes % (Manual) 6 L (20-40) % Monocytes % (Manual) 3 (0-10) % Eosinophils % (Manual) 1 (0-4) % Platelet Estimate Decreased L (NORMAL) Hypochromasia (manual) Slight Anisocytosis (manual) Slight Fibrinogen (200-400) mg/dL Fibrin Degrad Products (NEGATIVE) Fibrin Degrad Prod, Qt (<10) ug/mL Puncture Site L brac pCO2 32 L (35-45) mm/Hg pO2 77 L (80-100) mm/Hg HCO3 24.8 (21-28) mmol/L ABG pH 7.47 H (7.35-7.45) ABG Total CO2 24.3 (22-28) mmol/L ABG O2 Saturation 98.7 H (95-98) % ABG Base Excess -0.1 (-2.0-3.0) mmol/L ABG Hemoglobin 8.2 L (11.7-17.4) g/dL ABG Carboxyhemoglobin 1.8 H (0.5-1.5) % POC ABG HHb (Measured) 1.3 (0.0-5.0) % ABG Methemoglobin 1.3 (0.0-3.0) % Lionel Test Na A-a O2 Difference 168.0 mm/Hg Respiratory Index 2.2 Hgb O2 Saturation 95.6 (95.0-98.0) % Vent Mode Prvc Mechanical Rate 10 FiO2 40.0 % Tidal Volume 400 PEEP 5 Sodium 145 (132-148) mmol/L Potassium 4.1 (3.6-5.2) mmol/L Chloride 115 H (98-107) mmol/L Carbon Dioxide 24 (22-30) mmol/L Anion Gap 11 (10-20) BUN 52 H (9-20) mg/dL Creatinine 3.9 H (0.8-1.5) mg/dL Est GFR ( Amer) 18 Est GFR (Non-Af Amer) 15 POC Glucose (mg/dL) (65-110) mg/dL Random Glucose 149 H (75-110) mg/dL Calcium 6.8 L (8.6-10.4) mg/dl Phosphorus 1.9 L (2.5-4.5) mg/dL Magnesium 1.9 (1.6-2.3) mg/dL Total Bilirubin 0.5 (0.2-1.3) mg/dL AST 84 H D (17-59) U/L ALT 49 (21-72) U/L Alkaline Phosphatase 161 H (38-126) U/L Total Protein 5.5 L (6.3-8.3) g/dL Albumin 2.4 L (3.5-5.0) g/dL Globulin 3.1 (2.2-3.9) gm/dL Albumin/Globulin Ratio 0.8 L (1.0-2.1) 03/18/18 03/17/18 03/17/18 Range/Units 04:05 23:42 20:08 WBC (4.8-10.8) K/uL RBC (4.40-5.90) Mil/uL Hgb (12.0-18.0) g/dL Hct (35.0-51.0) % MCV (80.0-94.0) fL MCH (27.0-31.0) pg MCHC (33.0-37.0) g/dL RDW (11.5-14.5) % Plt Count (130-400) K/uL MPV (7.2-11.7) fL Neut % (Auto) (50.0-75.0) % Lymph % (Auto) (20.0-40.0) % Boyle % (Auto) (0.0-10.0) % Eos % (Auto) (0.0-4.0) % Baso % (Auto) (0.0-2.0) % Neut # (Auto) (1.8-7.0) K/uL Lymph # (Auto) (1.0-4.3) K/uL Boyle # (Auto) (0.0-0.8) K/uL Eos # (Auto) (0.0-0.7) K/uL Baso # (Auto) (0.0-0.2) K/uL Neutrophils % (Manual) (50-75) % Band Neutrophils % (0-2) % Lymphocytes % (Manual) (20-40) % Monocytes % (Manual) (0-10) % Eosinophils % (Manual) (0-4) % Platelet Estimate (NORMAL) Hypochromasia (manual) Anisocytosis (manual) Fibrinogen (200-400) mg/dL Fibrin Degrad Products (NEGATIVE) Fibrin Degrad Prod, Qt (<10) ug/mL Puncture Site pCO2 (35-45) mm/Hg pO2 (80-100) mm/Hg HCO3 (21-28) mmol/L ABG pH (7.35-7.45) ABG Total CO2 (22-28) mmol/L ABG O2 Saturation (95-98) % ABG Base Excess (-2.0-3.0) mmol/L ABG Hemoglobin (11.7-17.4) g/dL ABG Carboxyhemoglobin (0.5-1.5) % POC ABG HHb (Measured) (0.0-5.0) % ABG Methemoglobin (0.0-3.0) % Lionel Test A-a O2 Difference mm/Hg Respiratory Index Hgb O2 Saturation (95.0-98.0) % Vent Mode Mechanical Rate FiO2 % Tidal Volume PEEP Sodium (132-148) mmol/L Potassium (3.6-5.2) mmol/L Chloride (98-107) mmol/L Carbon Dioxide (22-30) mmol/L Anion Gap (10-20) BUN (9-20) mg/dL Creatinine (0.8-1.5) mg/dL Est GFR ( Amer) Est GFR (Non-Af Amer) POC Glucose (mg/dL) 157 H 101 154 H (65-110) mg/dL Random Glucose (75-110) mg/dL Calcium (8.6-10.4) mg/dl Phosphorus (2.5-4.5) mg/dL Magnesium (1.6-2.3) mg/dL Total Bilirubin (0.2-1.3) mg/dL AST (17-59) U/L ALT (21-72) U/L Alkaline Phosphatase (38-126) U/L Total Protein (6.3-8.3) g/dL Albumin (3.5-5.0) g/dL Globulin (2.2-3.9) gm/dL Albumin/Globulin Ratio (1.0-2.1) 03/17/18 03/17/18 Range/Units 15:44 05:50 WBC (4.8-10.8) K/uL RBC (4.40-5.90) Mil/uL Hgb (12.0-18.0) g/dL Hct (35.0-51.0) % MCV (80.0-94.0) fL MCH (27.0-31.0) pg MCHC (33.0-37.0) g/dL RDW (11.5-14.5) % Plt Count (130-400) K/uL MPV (7.2-11.7) fL Neut % (Auto) (50.0-75.0) % Lymph % (Auto) (20.0-40.0) % Boyle % (Auto) (0.0-10.0) % Eos % (Auto) (0.0-4.0) % Baso % (Auto) (0.0-2.0) % Neut # (Auto) (1.8-7.0) K/uL Lymph # (Auto) (1.0-4.3) K/uL Boyle # (Auto) (0.0-0.8) K/uL Eos # (Auto) (0.0-0.7) K/uL Baso # (Auto) (0.0-0.2) K/uL Neutrophils % (Manual) (50-75) % Band Neutrophils % (0-2) % Lymphocytes % (Manual) (20-40) % Monocytes % (Manual) (0-10) % Eosinophils % (Manual) (0-4) % Platelet Estimate (NORMAL) Hypochromasia (manual) Anisocytosis (manual) Fibrinogen (200-400) mg/dL Fibrin Degrad Products (NEGATIVE) Fibrin Degrad Prod, Qt (<10) ug/mL Puncture Site pCO2 (35-45) mm/Hg pO2 (80-100) mm/Hg HCO3 (21-28) mmol/L ABG pH (7.35-7.45) ABG Total CO2 (22-28) mmol/L ABG O2 Saturation (95-98) % ABG Base Excess (-2.0-3.0) mmol/L ABG Hemoglobin (11.7-17.4) g/dL ABG Carboxyhemoglobin (0.5-1.5) % POC ABG HHb (Measured) (0.0-5.0) % ABG Methemoglobin (0.0-3.0) % Lionel Test A-a O2 Difference mm/Hg Respiratory Index Hgb O2 Saturation (95.0-98.0) % Vent Mode Mechanical Rate FiO2 % Tidal Volume PEEP Sodium (132-148) mmol/L Potassium (3.6-5.2) mmol/L Chloride (98-107) mmol/L Carbon Dioxide (22-30) mmol/L Anion Gap (10-20) BUN (9-20) mg/dL Creatinine (0.8-1.5) mg/dL Est GFR ( Amer) Est GFR (Non-Af Amer) POC Glucose (mg/dL) 189 H 151 H (65-110) mg/dL Random Glucose (75-110) mg/dL Calcium (8.6-10.4) mg/dl Phosphorus (2.5-4.5) mg/dL Magnesium (1.6-2.3) mg/dL Total Bilirubin (0.2-1.3) mg/dL AST (17-59) U/L ALT (21-72) U/L Alkaline Phosphatase (38-126) U/L Total Protein (6.3-8.3) g/dL Albumin (3.5-5.0) g/dL Globulin (2.2-3.9) gm/dL Albumin/Globulin Ratio (1.0-2.1) Laboratory Results - last 24 hr 03/17/18 03/17/18 03/17/18 05:50 15:44 20:08 WBC RBC Hgb Hct MCV MCH MCHC RDW Plt Count MPV Neut % (Auto) Lymph % (Auto) Boyle % (Auto) Eos % (Auto) Baso % (Auto) Neut # (Auto) Lymph # (Auto) Boyle # (Auto) Eos # (Auto) Baso # (Auto) Neutrophils % (Manual) Band Neutrophils % Lymphocytes % (Manual) Monocytes % (Manual) Eosinophils % (Manual) Platelet Estimate Hypochromasia (manual) Anisocytosis (manual) Fibrinogen Fibrin Degrad Products Fibrin Degrad Prod, Qt Puncture Site pCO2 pO2 HCO3 ABG pH ABG Total CO2 ABG O2 Saturation ABG Base Excess ABG Hemoglobin ABG Carboxyhemoglobin POC ABG HHb (Measured) ABG Methemoglobin Lionel Test A-a O2 Difference Respiratory Index Hgb O2 Saturation Vent Mode Mechanical Rate FiO2 Tidal Volume PEEP Sodium Potassium Chloride Carbon Dioxide Anion Gap BUN Creatinine Est GFR ( Amer) Est GFR (Non-Af Amer) POC Glucose (mg/dL) 151 H 189 H 154 H Random Glucose Calcium Phosphorus Magnesium Total Bilirubin AST ALT Alkaline Phosphatase Total Protein Albumin Globulin Albumin/Globulin Ratio 03/17/18 03/18/18 03/18/18 23:42 04:05 05:39 WBC RBC Hgb Hct MCV MCH MCHC RDW Plt Count MPV Neut % (Auto) Lymph % (Auto) Boyle % (Auto) Eos % (Auto) Baso % (Auto) Neut # (Auto) Lymph # (Auto) Boyle # (Auto) Eos # (Auto) Baso # (Auto) Neutrophils % (Manual) Band Neutrophils % Lymphocytes % (Manual) Monocytes % (Manual) Eosinophils % (Manual) Platelet Estimate Hypochromasia (manual) Anisocytosis (manual) Fibrinogen Fibrin Degrad Products Fibrin Degrad Prod, Qt Puncture Site L brac pCO2 32 L pO2 77 L HCO3 24.8 ABG pH 7.47 H ABG Total CO2 24.3 ABG O2 Saturation 98.7 H ABG Base Excess -0.1 ABG Hemoglobin 8.2 L ABG Carboxyhemoglobin 1.8 H POC ABG HHb (Measured) 1.3 ABG Methemoglobin 1.3 Lionel Test Na A-a O2 Difference 168.0 Respiratory Index 2.2 Hgb O2 Saturation 95.6 Vent Mode Prvc Mechanical Rate 10 FiO2 40.0 Tidal Volume 400 PEEP 5 Sodium Potassium Chloride Carbon Dioxide Anion Gap BUN Creatinine Est GFR ( Amer) Est GFR (Non-Af Amer) POC Glucose (mg/dL) 101 157 H Random Glucose Calcium Phosphorus Magnesium Total Bilirubin AST ALT Alkaline Phosphatase Total Protein Albumin Globulin Albumin/Globulin Ratio 03/18/18 03/18/18 03/18/18 06:14 06:14 07:51 WBC 20.1 H RBC 2.58 L Hgb 7.9 L Hct 23.7 L MCV 91.9 MCH 30.7 MCHC 33.5 RDW 15.5 H Plt Count 100 L D MPV 7.5 Neut % (Auto) 91.8 H Lymph % (Auto) 4.7 L Boyle % (Auto) 2.6 Eos % (Auto) 0.8 Baso % (Auto) 0.1 Neut # (Auto) 18.5 H Lymph # (Auto) 0.9 L Boyle # (Auto) 0.5 Eos # (Auto) 0.2 Baso # (Auto) 0.0 Neutrophils % (Manual) 83 H Band Neutrophils % 7 H Lymphocytes % (Manual) 6 L Monocytes % (Manual) 3 Eosinophils % (Manual) 1 Platelet Estimate Decreased L Hypochromasia (manual) Slight Anisocytosis (manual) Slight Fibrinogen Fibrin Degrad Products Fibrin Degrad Prod, Qt Puncture Site pCO2 pO2 HCO3 ABG pH ABG Total CO2 ABG O2 Saturation ABG Base Excess ABG Hemoglobin ABG Carboxyhemoglobin POC ABG HHb (Measured) ABG Methemoglobin Lionel Test A-a O2 Difference Respiratory Index Hgb O2 Saturation Vent Mode Mechanical Rate FiO2 Tidal Volume PEEP Sodium 145 Potassium 4.1 Chloride 115 H Carbon Dioxide 24 Anion Gap 11 BUN 52 H Creatinine 3.9 H Est GFR ( Amer) 18 Est GFR (Non-Af Amer) 15 POC Glucose (mg/dL) 167 H Random Glucose 149 H Calcium 6.8 L Phosphorus 1.9 L Magnesium 1.9 Total Bilirubin 0.5 AST 84 H D ALT 49 Alkaline Phosphatase 161 H Total Protein 5.5 L Albumin 2.4 L Globulin 3.1 Albumin/Globulin Ratio 0.8 L 03/18/18 03/18/18 09:52 12:04 WBC RBC Hgb Hct MCV MCH MCHC RDW Plt Count MPV Neut % (Auto) Lymph % (Auto) Boyle % (Auto) Eos % (Auto) Baso % (Auto) Neut # (Auto) Lymph # (Auto) Boyle # (Auto) Eos # (Auto) Baso # (Auto) Neutrophils % (Manual) Band Neutrophils % Lymphocytes % (Manual) Monocytes % (Manual) Eosinophils % (Manual) Platelet Estimate Hypochromasia (manual) Anisocytosis (manual) Fibrinogen 564 H Fibrin Degrad Products Positive H Fibrin Degrad Prod, Qt >40 H Puncture Site pCO2 pO2 HCO3 ABG pH ABG Total CO2 ABG O2 Saturation ABG Base Excess ABG Hemoglobin ABG Carboxyhemoglobin POC ABG HHb (Measured) ABG Methemoglobin Lionel Test A-a O2 Difference Respiratory Index Hgb O2 Saturation Vent Mode Mechanical Rate FiO2 Tidal Volume PEEP Sodium Potassium Chloride Carbon Dioxide Anion Gap BUN Creatinine Est GFR ( Amer) Est GFR (Non-Af Amer) POC Glucose (mg/dL) 193 H Random Glucose Calcium Phosphorus Magnesium Total Bilirubin AST ALT Alkaline Phosphatase Total Protein Albumin Globulin Albumin/Globulin Ratio Fingerstick Blood Sugar Results: 193 Review of Systems - Review of Systems Systems not reviewed;Unavailable: Acuity of Condition Critical Care Progress Note - Nutrition Nutrition: Nutrition Category Date Time Status NPO Diet [DIET] Diets 03/14/18 Breakfast Active Assessment/Plan - Assessment and Plan (Free Text) Assessment: This is a 72-year-old male with PMH obtained from previous records which include, but is not limited to: Anemia, Dementia, Atrial Fibrillation, CKD stage 4, CHF, Diabetes Mellitus, who was brought to the ED from Skilled Nursing for altered mental status. Full history could not be obtained at the time of the exam due to patient being minimally responsive. While in the ED: CODE SEPSIS was called 2/2 elevated lactic acid. Vascular Surgery was consulted (Dr. Ceron.) Patient was found to be hyperkalemic with positive EKG changes and was treated in ED. ICU team consulted for need for emergent dialysis. Please Note, ROS could not be obtained due to clinical condition. Patient underwent emergent dialysis via left femoral shiley. Since 03/15, shiley removed. Permacath placed by Dr. Ceron. Patient remains on vent since 03/15. Patient is currently DNR. Hospice being decided. Renal: Stage 4 CKD Hyperkalemia, improved = 4.5 - Emergent dialysis on 03/14 Metabolic acidosis likely secondary to renal insufficiency - CBC, CMP, Mg, Phos Acute Renal Failure - Nephrology consulted (Dr. Jean,) recommendations appreciated * Oliguric * Monitor I&O * Increased metabolic acidosis as well * Made DNR * Prognosis poor- not a dialysis candidate Anemia of chronic disease - Transfused 1 PRBCs - Repeat H/H ID: Sepsis likely secondary to UTI vs gangrenous limb 2/2 Critical Limb Ischemia - Leukocytosis worsening WBC=20.1 - Patient was febrile today Gjdg=217. - ABG and Lactate ordered - [id number]=287 - Fibrinogen degradation product=Positive (> 40) - ID Consulted (Dr. Barnett); recommendations appreciated * Continue current ABXs (Zosyn) - General Surgery consulted regarding left lower extremity; Dr. Ceron; Recommendations appreciated * Not surgical candidate at this time Neuro: - Patient is able to be aroused but minimally responsive on exam - Monitor neuro checks CV: No acute issues - Monitor Critical Limb Ischemia (left) - Heparin 25,000 Units @12units/kg/hr - Surgery consulted (Dr. Ceron) * Patient s/p embolectomy 03/15 * Permacath placed on right subclavian 03/15 Pulm: - Patient intubated as of 03/15 - Monitor GI/: - Colostomy bag on right in tact - NPO except meds - Tube Feedings with Glucerna - Monitor I&O - Protonix 40mg IVP daily Patient seen and case discussed with Dr. Cecilio Carrillo PGY1 <Nevaeh Hernandes - Last Filed: 03/19/18 09:26> CCU Objective - Vital Signs / Intake & Output Vital Signs (Last 4 hours): Vital Signs Temp Pulse Resp BP Pulse Ox 03/19/18 08:00 98.6 F 57 L 10 L 100 03/19/18 07:45 62 20 102/36 L 100 03/19/18 07:00 55 L 18 100 03/19/18 06:45 59 L 18 130/43 L 100 03/19/18 06:00 76 14 94 L 03/19/18 05:45 120/41 L Intake and Output (Last 8hrs): Intake & Output 03/18/18 03/19/18 03/19/18 22:59 06:59 14:59 Intake Total 1315 1270 160 Output Total 750 290 20 Balance 565 980 140 Weight 116 lb Intake: Intake, IV Amount 1100 1000 100 Left External Jugular 100 0 R subcl PermCAth 800 900 100 Right Internal Jugular 200 Y tubing R PermaC 100 0 Oral 30 Tube Feeding 90 270 30 Blood Product 125 Red Blood Cells Cpd As1 0 Lr Unit [id number] Output: Urine 350 290 20 Urethral (Mendes) 350 290 20 Stool 400 - Medications Active Medications: Active Medications Generic Name Dose Route Start Last Admin Trade Name Freq PRN Reason Stop Dose Admin Albuterol/Ipratropium 3 ml 03/14/18 20:00 03/19/18 08:00 Duoneb 3 Mg/0.5 Mg (3 Ml) Ud INH 3 ml RQ6 NEL Administration Piperacillin Sod/Tazobactam 100 mls @ 200 mls/hr 03/15/18 02:00 03/19/18 09:12 Sod 2.25 gm/ Sodium Chloride IVPB 200 mls/hr Q8H NEL Administration Protocol Daptomycin 400 mg/ Sodium 100 mls @ 100 mls/hr 03/21/18 09:00 Chloride IV 03/26/18 09:01 MWF NEL Protocol Sodium Chloride 1,000 mls @ 75 mls/hr 03/19/18 09:30 Sodium Chloride 0.45% IV .[id number] [facility] Potassium Phosphate 15 mmole/ 255 mls @ 63 mls/hr 03/19/18 09:17 Sodium Chloride IV 03/19/18 13:15 ONCE ONE Insulin Human Regular 0 unit 03/19/18 09:30 Novolin R SC Q6H [facility] Protocol Nystatin 1 applic 03/18/18 11:00 03/19/18 09:10 Nystop Topical Powder TOP 1 applic BID NEL Administration Pantoprazole Sodium 40 mg 03/19/18 10:00 03/19/18 09:09 Protonix Susp GT 40 mg DAILY NEL Administration Pneumococcal Polyvalent Vaccine 0.5 ml 03/19/18 10:00 03/19/18 09:10 Pneumovax 23 Vaccine IM 03/19/18 10:01 0.5 ml .ONCE ONE Administration Valproate Sodium 250 mg 03/17/18 10:30 03/19/18 09:09 Depakene Oral Soln PO 250 mg BID NEL Administration - Patient Studies Lab Studies: Microbiology Studies 03/14/18 17:56 Blood Culture - Preliminary Blood NO GROWTH AFTER 4 DAYS 03/14/18 15:50 Blood Culture - Preliminary Blood NO GROWTH AFTER 4 DAYS 03/14/18 18:05 Urine Culture - Final Urine,Catheterized Escherichia Coli Lab Studies 03/19/18 03/19/18 03/19/18 Range/Units 07:18 05:48 05:48 WBC 16.6 H (4.8-10.8) K/uL RBC 2.76 L (4.40-5.90) Mil/uL Hgb 8.3 L (12.0-18.0) g/dL Hct 25.0 L (35.0-51.0) % MCV 90.8 (80.0-94.0) fL MCH 30.3 (27.0-31.0) pg MCHC 33.4 (33.0-37.0) g/dL RDW 15.4 H (11.5-14.5) % Plt Count 94 L (130-400) K/uL MPV 7.7 (7.2-11.7) fL Neut % (Auto) 89.6 H (50.0-75.0) % Lymph % (Auto) 5.6 L (20.0-40.0) % Boyle % (Auto) 3.4 (0.0-10.0) % Eos % (Auto) 1.1 (0.0-4.0) % Baso % (Auto) 0.3 (0.0-2.0) % Neut # (Auto) 14.8 H (1.8-7.0) K/uL Lymph # (Auto) 0.9 L (1.0-4.3) K/uL Boyle # (Auto) 0.6 (0.0-0.8) K/uL Eos # (Auto) 0.2 (0.0-0.7) K/uL Baso # (Auto) 0.0 (0.0-0.2) K/uL Neutrophils % (Manual) 88 H (50-75) % Band Neutrophils % 3 H (0-2) % Lymphocytes % (Manual) 6 L (20-40) % Monocytes % (Manual) 2 (0-10) % Eosinophils % (Manual) 1 (0-4) % Toxic Granulation Present Platelet Estimate Decreased L (NORMAL) Polychromasia Slight Hypochromasia (manual) Slight Anisocytosis (manual) Slight Fibrinogen (200-400) mg/dL Fibrin Degrad Products (NEGATIVE) Fibrin Degrad Prod, Qt (<10) ug/mL Puncture Site pCO2 (35-45) mm/Hg pO2 (80-100) mm/Hg HCO3 (21-28) mmol/L ABG pH (7.35-7.45) ABG Total CO2 (22-28) mmol/L ABG O2 Saturation (95-98) % ABG Base Excess (-2.0-3.0) mmol/L ABG Hemoglobin (11.7-17.4) g/dL ABG Carboxyhemoglobin (0.5-1.5) % POC ABG HHb (Measured) (0.0-5.0) % ABG Methemoglobin (0.0-3.0) % Lionel Test A-a O2 Difference mm/Hg Respiratory Index Hgb O2 Saturation (95.0-98.0) % Vent Mode Mechanical Rate FiO2 % Tidal Volume PEEP Sodium 147 (132-148) mmol/L Potassium 3.6 (3.6-5.2) mmol/L Chloride 109 H (98-107) mmol/L Carbon Dioxide 30 (22-30) mmol/L Anion Gap 12 (10-20) BUN 46 H (9-20) mg/dL Creatinine 3.2 H (0.8-1.5) mg/dL Est GFR ( Amer) 23 Est GFR (Non-Af Amer) 19 POC Glucose (mg/dL) 111 H (65-110) mg/dL Random Glucose 106 (75-110) mg/dL Calcium 6.4 L (8.6-10.4) mg/dl Phosphorus 2.0 L (2.5-4.5) mg/dL Magnesium 1.8 (1.6-2.3) mg/dL Total Bilirubin 0.5 (0.2-1.3) mg/dL AST 58 (17-59) U/L ALT 50 (21-72) U/L Alkaline Phosphatase 142 H (38-126) U/L Total Protein 5.3 L (6.3-8.3) g/dL Albumin 2.4 L (3.5-5.0) g/dL Globulin 3.0 (2.2-3.9) gm/dL Albumin/Globulin Ratio 0.8 L (1.0-2.1) Blood Type Antibody Screen 03/19/18 03/19/18 03/19/18 Range/Units 05:18 03:50 00:12 WBC (4.8-10.8) K/uL RBC (4.40-5.90) Mil/uL Hgb (12.0-18.0) g/dL Hct (35.0-51.0) % MCV (80.0-94.0) fL MCH (27.0-31.0) pg MCHC (33.0-37.0) g/dL RDW (11.5-14.5) % Plt Count (130-400) K/uL MPV (7.2-11.7) fL Neut % (Auto) (50.0-75.0) % Lymph % (Auto) (20.0-40.0) % Boyle % (Auto) (0.0-10.0) % Eos % (Auto) (0.0-4.0) % Baso % (Auto) (0.0-2.0) % Neut # (Auto) (1.8-7.0) K/uL Lymph # (Auto) (1.0-4.3) K/uL Boyle # (Auto) (0.0-0.8) K/uL Eos # (Auto) (0.0-0.7) K/uL Baso # (Auto) (0.0-0.2) K/uL Neutrophils % (Manual) (50-75) % Band Neutrophils % (0-2) % Lymphocytes % (Manual) (20-40) % Monocytes % (Manual) (0-10) % Eosinophils % (Manual) (0-4) % Toxic Granulation Platelet Estimate (NORMAL) Polychromasia Hypochromasia (manual) Anisocytosis (manual) Fibrinogen (200-400) mg/dL Fibrin Degrad Products (NEGATIVE) Fibrin Degrad Prod, Qt (<10) ug/mL Puncture Site L brac pCO2 41 (35-45) mm/Hg pO2 81 (80-100) mm/Hg HCO3 31.9 H (21-28) mmol/L ABG pH 7.51 H (7.35-7.45) ABG Total CO2 34.0 H (22-28) mmol/L ABG O2 Saturation 98.7 H (95-98) % ABG Base Excess 8.9 H (-2.0-3.0) mmol/L ABG Hemoglobin 8.5 L (11.7-17.4) g/dL ABG Carboxyhemoglobin 1.7 H (0.5-1.5) % POC ABG HHb (Measured) 1.3 (0.0-5.0) % ABG Methemoglobin 1.3 (0.0-3.0) % Lionel Test Na A-a O2 Difference 153.0 mm/Hg Respiratory Index 1.9 Hgb O2 Saturation 95.7 (95.0-98.0) % Vent Mode Prvc Mechanical Rate 10 FiO2 40.0 % Tidal Volume 400 PEEP 5 Sodium (132-148) mmol/L Potassium (3.6-5.2) mmol/L Chloride (98-107) mmol/L Carbon Dioxide (22-30) mmol/L Anion Gap (10-20) BUN (9-20) mg/dL Creatinine (0.8-1.5) mg/dL Est GFR ( Amer) Est GFR (Non-Af Amer) POC Glucose (mg/dL) 120 H 128 H (65-110) mg/dL Random Glucose (75-110) mg/dL Calcium (8.6-10.4) mg/dl Phosphorus (2.5-4.5) mg/dL Magnesium (1.6-2.3) mg/dL Total Bilirubin (0.2-1.3) mg/dL AST (17-59) U/L ALT (21-72) U/L Alkaline Phosphatase (38-126) U/L Total Protein (6.3-8.3) g/dL Albumin (3.5-5.0) g/dL Globulin (2.2-3.9) gm/dL Albumin/Globulin Ratio (1.0-2.1) Blood Type Antibody Screen 03/18/18 03/18/18 03/18/18 Range/Units 20:11 16:09 13:39 WBC (4.8-10.8) K/uL RBC (4.40-5.90) Mil/uL Hgb (12.0-18.0) g/dL Hct (35.0-51.0) % MCV (80.0-94.0) fL MCH (27.0-31.0) pg MCHC (33.0-37.0) g/dL RDW (11.5-14.5) % Plt Count (130-400) K/uL MPV (7.2-11.7) fL Neut % (Auto) (50.0-75.0) % Lymph % (Auto) (20.0-40.0) % Boyle % (Auto) (0.0-10.0) % Eos % (Auto) (0.0-4.0) % Baso % (Auto) (0.0-2.0) % Neut # (Auto) (1.8-7.0) K/uL Lymph # (Auto) (1.0-4.3) K/uL Boyle # (Auto) (0.0-0.8) K/uL Eos # (Auto) (0.0-0.7) K/uL Baso # (Auto) (0.0-0.2) K/uL Neutrophils % (Manual) (50-75) % Band Neutrophils % (0-2) % Lymphocytes % (Manual) (20-40) % Monocytes % (Manual) (0-10) % Eosinophils % (Manual) (0-4) % Toxic Granulation Platelet Estimate (NORMAL) Polychromasia Hypochromasia (manual) Anisocytosis (manual) Fibrinogen (200-400) mg/dL Fibrin Degrad Products (NEGATIVE) Fibrin Degrad Prod, Qt (<10) ug/mL Puncture Site pCO2 (35-45) mm/Hg pO2 (80-100) mm/Hg HCO3 (21-28) mmol/L ABG pH (7.35-7.45) ABG Total CO2 (22-28) mmol/L ABG O2 Saturation (95-98) % ABG Base Excess (-2.0-3.0) mmol/L ABG Hemoglobin (11.7-17.4) g/dL ABG Carboxyhemoglobin (0.5-1.5) % POC ABG HHb (Measured) (0.0-5.0) % ABG Methemoglobin (0.0-3.0) % Lionel Test A-a O2 Difference mm/Hg Respiratory Index Hgb O2 Saturation (95.0-98.0) % Vent Mode Mechanical Rate FiO2 % Tidal Volume PEEP Sodium (132-148) mmol/L Potassium (3.6-5.2) mmol/L Chloride (98-107) mmol/L Carbon Dioxide (22-30) mmol/L Anion Gap (10-20) BUN (9-20) mg/dL Creatinine (0.8-1.5) mg/dL Est GFR ( Amer) Est GFR (Non-Af Amer) POC Glucose (mg/dL) 167 H 180 H (65-110) mg/dL Random Glucose (75-110) mg/dL Calcium (8.6-10.4) mg/dl Phosphorus (2.5-4.5) mg/dL Magnesium (1.6-2.3) mg/dL Total Bilirubin (0.2-1.3) mg/dL AST (17-59) U/L ALT (21-72) U/L Alkaline Phosphatase (38-126) U/L Total Protein (6.3-8.3) g/dL Albumin (3.5-5.0) g/dL Globulin (2.2-3.9) gm/dL Albumin/Globulin Ratio (1.0-2.1) Blood Type O POSITIVE Antibody Screen Negative 03/18/18 03/18/18 03/17/18 Range/Units 12:04 09:52 05:50 WBC (4.8-10.8) K/uL RBC (4.40-5.90) Mil/uL Hgb (12.0-18.0) g/dL Hct (35.0-51.0) % MCV (80.0-94.0) fL MCH (27.0-31.0) pg MCHC (33.0-37.0) g/dL RDW (11.5-14.5) % Plt Count (130-400) K/uL MPV (7.2-11.7) fL Neut % (Auto) (50.0-75.0) % Lymph % (Auto) (20.0-40.0) % Boyle % (Auto) (0.0-10.0) % Eos % (Auto) (0.0-4.0) % Baso % (Auto) (0.0-2.0) % Neut # (Auto) (1.8-7.0) K/uL Lymph # (Auto) (1.0-4.3) K/uL Boyle # (Auto) (0.0-0.8) K/uL Eos # (Auto) (0.0-0.7) K/uL Baso # (Auto) (0.0-0.2) K/uL Neutrophils % (Manual) (50-75) % Band Neutrophils % (0-2) % Lymphocytes % (Manual) (20-40) % Monocytes % (Manual) (0-10) % Eosinophils % (Manual) (0-4) % Toxic Granulation Platelet Estimate (NORMAL) Polychromasia Hypochromasia (manual) Anisocytosis (manual) Fibrinogen 564 H (200-400) mg/dL Fibrin Degrad Products Positive H (NEGATIVE) Fibrin Degrad Prod, Qt >40 H (<10) ug/mL Puncture Site pCO2 (35-45) mm/Hg pO2 (80-100) mm/Hg HCO3 (21-28) mmol/L ABG pH (7.35-7.45) ABG Total CO2 (22-28) mmol/L ABG O2 Saturation (95-98) % ABG Base Excess (-2.0-3.0) mmol/L ABG Hemoglobin (11.7-17.4) g/dL ABG Carboxyhemoglobin (0.5-1.5) % POC ABG HHb (Measured) (0.0-5.0) % ABG Methemoglobin (0.0-3.0) % Lionel Test A-a O2 Difference mm/Hg Respiratory Index Hgb O2 Saturation (95.0-98.0) % Vent Mode Mechanical Rate FiO2 % Tidal Volume PEEP Sodium (132-148) mmol/L Potassium (3.6-5.2) mmol/L Chloride (98-107) mmol/L Carbon Dioxide (22-30) mmol/L Anion Gap (10-20) BUN (9-20) mg/dL Creatinine (0.8-1.5) mg/dL Est GFR ( Amer) Est GFR (Non-Af Amer) POC Glucose (mg/dL) 193 H 151 H (65-110) mg/dL Random Glucose (75-110) mg/dL Calcium (8.6-10.4) mg/dl Phosphorus (2.5-4.5) mg/dL Magnesium (1.6-2.3) mg/dL Total Bilirubin (0.2-1.3) mg/dL AST (17-59) U/L ALT (21-72) U/L Alkaline Phosphatase (38-126) U/L Total Protein (6.3-8.3) g/dL Albumin (3.5-5.0) g/dL Globulin (2.2-3.9) gm/dL Albumin/Globulin Ratio (1.0-2.1) Blood Type Antibody Screen Laboratory Results - last 24 hr 03/17/18 03/18/18 03/18/18 05:50 09:52 12:04 WBC RBC Hgb Hct MCV MCH MCHC RDW Plt Count MPV Neut % (Auto) Lymph % (Auto) Boyle % (Auto) Eos % (Auto) Baso % (Auto) Neut # (Auto) Lymph # (Auto) Boyle # (Auto) Eos # (Auto) Baso # (Auto) Neutrophils % (Manual) Band Neutrophils % Lymphocytes % (Manual) Monocytes % (Manual) Eosinophils % (Manual) Toxic Granulation Platelet Estimate Polychromasia Hypochromasia (manual) Anisocytosis (manual) Fibrinogen 564 H Fibrin Degrad Products Positive H Fibrin Degrad Prod, Qt >40 H Puncture Site pCO2 pO2 HCO3 ABG pH ABG Total CO2 ABG O2 Saturation ABG Base Excess ABG Hemoglobin ABG Carboxyhemoglobin POC ABG HHb (Measured) ABG Methemoglobin Lionel Test A-a O2 Difference Respiratory Index Hgb O2 Saturation Vent Mode Mechanical Rate FiO2 Tidal Volume PEEP Sodium Potassium Chloride Carbon Dioxide Anion Gap BUN Creatinine Est GFR ( Amer) Est GFR (Non-Af Amer) POC Glucose (mg/dL) 151 H 193 H Random Glucose Calcium Phosphorus Magnesium Total Bilirubin AST ALT Alkaline Phosphatase Total Protein Albumin Globulin Albumin/Globulin Ratio Blood Type Antibody Screen 03/18/18 03/18/18 03/18/18 13:39 16:09 20:11 WBC RBC Hgb Hct MCV MCH MCHC RDW Plt Count MPV Neut % (Auto) Lymph % (Auto) Boyle % (Auto) Eos % (Auto) Baso % (Auto) Neut # (Auto) Lymph # (Auto) Boyle # (Auto) Eos # (Auto) Baso # (Auto) Neutrophils % (Manual) Band Neutrophils % Lymphocytes % (Manual) Monocytes % (Manual) Eosinophils % (Manual) Toxic Granulation Platelet Estimate Polychromasia Hypochromasia (manual) Anisocytosis (manual) Fibrinogen Fibrin Degrad Products Fibrin Degrad Prod, Qt Puncture Site pCO2 pO2 HCO3 ABG pH ABG Total CO2 ABG O2 Saturation ABG Base Excess ABG Hemoglobin ABG Carboxyhemoglobin POC ABG HHb (Measured) ABG Methemoglobin Lionel Test A-a O2 Difference Respiratory Index Hgb O2 Saturation Vent Mode Mechanical Rate FiO2 Tidal Volume PEEP Sodium Potassium Chloride Carbon Dioxide Anion Gap BUN Creatinine Est GFR ( Amer) Est GFR (Non-Af Amer) POC Glucose (mg/dL) 180 H 167 H Random Glucose Calcium Phosphorus Magnesium Total Bilirubin AST ALT Alkaline Phosphatase Total Protein Albumin Globulin Albumin/Globulin Ratio Blood Type O POSITIVE Antibody Screen Negative 03/19/18 03/19/18 03/19/18 00:12 03:50 05:18 WBC RBC Hgb Hct MCV MCH MCHC RDW Plt Count MPV Neut % (Auto) Lymph % (Auto) Boyle % (Auto) Eos % (Auto) Baso % (Auto) Neut # (Auto) Lymph # (Auto) Boyle # (Auto) Eos # (Auto) Baso # (Auto) Neutrophils % (Manual) Band Neutrophils % Lymphocytes % (Manual) Monocytes % (Manual) Eosinophils % (Manual) Toxic Granulation Platelet Estimate Polychromasia Hypochromasia (manual) Anisocytosis (manual) Fibrinogen Fibrin Degrad Products Fibrin Degrad Prod, Qt Puncture Site L brac pCO2 41 pO2 81 HCO3 31.9 H ABG pH 7.51 H ABG Total CO2 34.0 H ABG O2 Saturation 98.7 H ABG Base Excess 8.9 H ABG Hemoglobin 8.5 L ABG Carboxyhemoglobin 1.7 H POC ABG HHb (Measured) 1.3 ABG Methemoglobin 1.3 Lionel Test Na A-a O2 Difference 153.0 Respiratory Index 1.9 Hgb O2 Saturation 95.7 Vent Mode Prvc Mechanical Rate 10 FiO2 40.0 Tidal Volume 400 PEEP 5 Sodium Potassium Chloride Carbon Dioxide Anion Gap BUN Creatinine Est GFR ( Amer) Est GFR (Non-Af Amer) POC Glucose (mg/dL) 128 H 120 H Random Glucose Calcium Phosphorus Magnesium Total Bilirubin AST ALT Alkaline Phosphatase Total Protein Albumin Globulin Albumin/Globulin Ratio Blood Type Antibody Screen 03/19/18 03/19/18 03/19/18 05:48 05:48 07:18 WBC 16.6 H RBC 2.76 L Hgb 8.3 L Hct 25.0 L MCV 90.8 MCH 30.3 MCHC 33.4 RDW 15.4 H Plt Count 94 L MPV 7.7 Neut % (Auto) 89.6 H Lymph % (Auto) 5.6 L Boyle % (Auto) 3.4 Eos % (Auto) 1.1 Baso % (Auto) 0.3 Neut # (Auto) 14.8 H Lymph # (Auto) 0.9 L Boyle # (Auto) 0.6 Eos # (Auto) 0.2 Baso # (Auto) 0.0 Neutrophils % (Manual) 88 H Band Neutrophils % 3 H Lymphocytes % (Manual) 6 L Monocytes % (Manual) 2 Eosinophils % (Manual) 1 Toxic Granulation Present Platelet Estimate Decreased L Polychromasia Slight Hypochromasia (manual) Slight Anisocytosis (manual) Slight Fibrinogen Fibrin Degrad Products Fibrin Degrad Prod, Qt Puncture Site pCO2 pO2 HCO3 ABG pH ABG Total CO2 ABG O2 Saturation ABG Base Excess ABG Hemoglobin ABG Carboxyhemoglobin POC ABG HHb (Measured) ABG Methemoglobin Lionel Test A-a O2 Difference Respiratory Index Hgb O2 Saturation Vent Mode Mechanical Rate FiO2 Tidal Volume PEEP Sodium 147 Potassium 3.6 Chloride 109 H Carbon Dioxide 30 Anion Gap 12 BUN 46 H Creatinine 3.2 H Est GFR ( Amer) 23 Est GFR (Non-Af Amer) 19 POC Glucose (mg/dL) 111 H Random Glucose 106 Calcium 6.4 L Phosphorus 2.0 L Magnesium 1.8 Total Bilirubin 0.5 AST 58 ALT 50 Alkaline Phosphatase 142 H Total Protein 5.3 L Albumin 2.4 L Globulin 3.0 Albumin/Globulin Ratio 0.8 L Blood Type Antibody Screen Critical Care Progress Note - Nutrition Nutrition: Nutrition Category Date Time Status NPO Diet [DIET] Diets 03/14/18 Breakfast Active Assessment/Plan - Assessment and Plan (Free Text) Plan: Patient seen and examined at bedside. Patient with left lower leg cyanosis and onset of gangrene. -Febrile, suspect bacteremia from left lower leg -Called Public Guardian Fernanda Sumner (not availble), was transferred to manager social work who advised that she does not have a medical bacground and will request nurse on case to call back. -Patient's left lower leg is becomming gangrene and will benfit from below knee amputation. -obtain surgery eval for below knoee amputation -Prognosis poor as patient has no perfusion to left lower leg and will likely turn into a gangrene which will enventually cause sepsis and . -Risks, benefits and alternatives explained to public guardian office. -continue broad spectrum abx -above resident documents my clinical management and physical exam findings cc time 55 minutes - Date & Time Date: 03/18/18 Time: 19:00
--- NOTE | 2018-03-18 15:30 | CP.PCM.PN ---
Subjective - Date & Time of Evaluation Date of Evaluation: 03/18/18 Time of Evaluation: 09:30 - Subjective Subjective: clinically same Objective - Vital Signs/Intake and Output Vital Signs (last 24 hours): Temp Pulse Resp BP Pulse Ox 99.8 F H 66 22 120/33 L 100 03/18/18 12:00 03/18/18 15:00 03/18/18 15:00 03/18/18 14:49 03/18/18 15:00 Intake and Output: 03/18/18 03/18/18 06:59 18:59 Intake Total 1660 2340 Output Total 490 700 Balance 1170 1640 - Medications Medications: Current Medications Albuterol/Ipratropium (Duoneb 3 Mg/0.5 Mg (3 Ml) Ud) 3 ml INH RQ6 [facility] Last Admin: 03/18/18 13:51 Dose: 3 ml Piperacillin Sod/Tazobactam (Sod 2.25 gm/ Sodium Chloride) 100 mls @ 200 mls/hr IVPB Q8H [facility]; Protocol Last Admin: 03/18/18 10:39 Dose: 200 mls/hr Sodium Bicarbonate 150 meq/ (Dextrose) 1,150 mls @ 100 mls/hr IV .[id number] [facility] Last Admin: 03/18/18 11:34 Dose: 100 mls/hr Insulin Human Regular (Novolin R) 0 unit SC Q4 [facility]; Protocol Last Admin: 03/18/18 12:36 Dose: 1 units Lorazepam (Ativan) 2 mg IVP Q4H PRN PRN Reason: Anxiety Last Admin: 03/16/18 23:02 Dose: 2 mg Morphine Sulfate (Morphine) 2 mg IV Q6 PRN PRN Reason: Pain, moderate (4-7) Last Admin: 03/16/18 21:31 Dose: 2 mg Nystatin (Nystop Topical Powder) 1 applic TOP BID [facility] Last Admin: 03/18/18 11:35 Dose: 1 applic Pantoprazole Sodium (Protonix Inj) 40 mg IVP DAILY [facility] Last Admin: 03/18/18 10:15 Dose: 40 mg Pneumococcal Polyvalent Vaccine (Pneumovax 23 Vaccine) 0.5 ml IM .ONCE ONE Stop: 03/19/18 10:01 Valproate Sodium (Depakene Oral Soln) 250 mg PO BID [facility] Last Admin: 03/18/18 10:15 Dose: 250 mg - Labs Labs: 03/18/18 06:14 03/18/18 06:14 PT 13.4 SECONDS (9.7-12.2) H 03/14/18 15:49 INR 1.2 03/14/18 15:49 APTT 59 SECONDS (21-34) H D 03/16/18 10:48
--- NOTE | 2018-03-18 16:28 | CP.PCM.PN ---
Subjective - Date & Time of Evaluation Date of Evaluation: 03/18/18 Time of Evaluation: 16:00 - Subjective Subjective: dictated Objective - Vital Signs/Intake and Output Vital Signs (last 24 hours): Temp Pulse Resp BP Pulse Ox 98.4 F 65 18 122/40 L 100 03/18/18 16:00 03/18/18 16:00 03/18/18 16:00 03/18/18 15:49 03/18/18 16:00 Intake and Output: 03/18/18 03/18/18 06:59 18:59 Intake Total 1660 2440 Output Total 490 800 Balance 1170 1640 - Medications Medications: Current Medications Albuterol/Ipratropium (Duoneb 3 Mg/0.5 Mg (3 Ml) Ud) 3 ml INH RQ6 [facility] Last Admin: 03/18/18 13:51 Dose: 3 ml Piperacillin Sod/Tazobactam (Sod 2.25 gm/ Sodium Chloride) 100 mls @ 200 mls/hr IVPB Q8H [facility]; Protocol Last Admin: 03/18/18 10:39 Dose: 200 mls/hr Sodium Bicarbonate 150 meq/ (Dextrose) 1,150 mls @ 100 mls/hr IV .[id number] [facility] Last Admin: 03/18/18 11:34 Dose: 100 mls/hr Insulin Human Regular (Novolin R) 0 unit SC Q4 [facility]; Protocol Last Admin: 03/18/18 12:36 Dose: 1 units Lorazepam (Ativan) 2 mg IVP Q4H PRN PRN Reason: Anxiety Last Admin: 03/16/18 23:02 Dose: 2 mg Morphine Sulfate (Morphine) 2 mg IV Q6 PRN PRN Reason: Pain, moderate (4-7) Last Admin: 03/16/18 21:31 Dose: 2 mg Nystatin (Nystop Topical Powder) 1 applic TOP BID [facility] Last Admin: 03/18/18 11:35 Dose: 1 applic Pantoprazole Sodium (Protonix Inj) 40 mg IVP DAILY [facility] Last Admin: 03/18/18 10:15 Dose: 40 mg Pneumococcal Polyvalent Vaccine (Pneumovax 23 Vaccine) 0.5 ml IM .ONCE ONE Stop: 03/19/18 10:01 Valproate Sodium (Depakene Oral Soln) 250 mg PO BID [facility] Last Admin: 03/18/18 10:15 Dose: 250 mg - Labs Labs: 03/18/18 06:14 03/18/18 06:14 PT 13.4 SECONDS (9.7-12.2) H 03/14/18 15:49 INR 1.2 03/14/18 15:49 APTT 59 SECONDS (21-34) H D 03/16/18 10:48
[2018-03-19] MEDS: (Novolin R) Insulin Human Regular 100 units/ml vial SC SCH ×5 (00:40→18:27)
[2018-03-19] MEDS: Albuterol-Ipratrop 3 mg / 0.5 (3 ml) UD INH SCH ×3 (01:21→19:41)
[2018-03-19] MEDS: Piperacillin/Tazobact 2.25 GM in Sodium Chloride 100 ML IVPB SCH ×3 (03:09→17:28)
[2018-03-19 05:45] LABS: ARTERIAL BLOOD GAS HCO3 31.9 mmol/L (21-28); ARTERIAL BLOOD GAS HEMOGLOBIN 8.5 g/dL (11.7-17.4); ARTERIAL BLOOD GAS O2 SAT 98.7 % (95-98); ARTERIAL BLOOD GAS PCO2 41 mm/Hg (35-45); ARTERIAL BLOOD GAS PH 7.51 (7.35-7.45); ARTERIAL BLOOD GAS PO2 81 mm/Hg (80-100)
[2018-03-19 05:55] LABS: BASO % 0.3 % (0.0-2.0); EOS # 0.2 K/uL (0.0-0.7); EOS % 1.1 % (0.0-4.0); HEMOGLOBIN 8.3 g/dL (12.0-18.0); LYMPH # 0.9 K/uL (1.0-4.3); LYMPH % 5.6 % (20.0-40.0); MEAN CELL VOLUME 90.8 fL (80.0-94.0); MEAN CORPUSCULAR HEMOGLOBIN 30.3 pg (27.0-31.0); MEAN CORPUSCULAR HGB CONC 33.4 g/dL (33.0-37.0); MEAN PLATELET VOLUME 7.7 fL (7.2-11.7); MONO # 0.6 K/uL (0.0-0.8); MONO % 3.4 % (0.0-10.0); NEUT # 14.8 K/uL (1.8-7.0); NEUT % 89.6 % (50.0-75.0); PLATELET COUNT 94 K/uL (130-400); RBC 2.76 Mil/uL (4.40-5.90); RED CELL DISTRIBUTION WIDTH 15.4 % (11.5-14.5); WHITE BLOOD COUNT 16.6 K/uL (4.8-10.8)
[2018-03-19 06:28] LABS: ALB/GLOB RATIO 0.8 (1.0-2.1); ALBUMIN 2.4 g/dL (3.5-5.0); CALCIUM 6.4 mg/dl (8.6-10.4)
--- NOTE | 2018-03-19 08:31 | PN ---
DATE: 03/18/2018 SUBJECTIVE: The patient is intubated, sedated and he has mittens on his hand, and remains on the ventilator with PEEP and 40% oxygen. His white count is going up. PHYSICAL EXAMINATION: VITAL SIGNS: T-max is 98.5, heart rate of 60, blood pressure 121/38, respirations are 20. HEENT: Head is atraumatic and normocephalic. NECK: Supple. LUNGS: Clear. HEART: S1 and S2 regular. ABDOMEN: Soft. Nontender. EXTREMITIES: Left foot shows gangrenous toes, and the right one is unremarkable. Labs are noted. White count is 20.1, hemoglobin 7.9, hematocrit 23.7, platelets are 100. He is still is in DIC, looks like fibrin degradation products are positive . I have added Cubicin for now as he has renal insufficiency. IMPRESSION: This patient has urine culture which is Escherichia coli, and he was on Zosyn for it, and we will continue that. Though, he is on two antibiotics right now, Cubicin but white count is increasing as he has no perfusion to his left leg. Teresa Barnett MD
--- NOTE | 2018-03-19 08:37 | CON ---
DATE: 03/17/2018 HISTORY OF PRESENT ILLNESS: The patient is a 72-year-old male. 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 He is mostly bed-bound and has psych issues and has been having renal failure, dementia, atrial fibrillation, CHF, diabetes mellitus, anemia. [facility] at [facility] time with altered mental status. He is not able to give any history. He is poorly responsive, and when I saw today, he was intubated, and he had code sepsis with elevated lactic acid. However, I was called in today to see him. He also had hyperkalemia requiring renal dialysis, and they put in a catheter in the left groin. However, he had a bad DVT, and he has now gangrene of the toes because they tried to do embolectomy but were not successful, and his groin catheter was removed finally, and he has now other catheter in the chest wall and remains intubated, and is acutely ill, and he also has a urine which showed E. coli. However at this time, blood cultures came out negative which I was happy to see but he has more issues. He has, however, been functionally quadriplegic requiring extreme medical help, for caring also, and comes from the prison. MEDICATIONS: At this time, medications he is on, albuterol, insulin, lorazepam, morphine, pantoprazole. He is on Zosyn, and he is on sodium bicarb drip and is on valproic acid 5 b.i.d. REVIEW OF SYSTEM: I am unable to obtain. He remains intubated, sedated. PHYSICAL EXAMINATION: VITAL SIGNS: His temperature was 98.3 axillary, heart rate of 73. He has history of atrial fibrillation. Blood pressure is 144/44, and respirations are on the vent. HEENT: Head is atraumatic, normocephalic. Eyes are closed. NECK: Supple. JVP is flat. LUNGS: Have occasional rhonchi, otherwise, clear. HEART: S1, S2 irregularly irregular. ABDOMEN: Soft. He does have a colostomy from past. He also has a sacral decubitus which is in the sacral area, hard to evaluate at this time as he is acutely ill. EXTREMITIES: He had cyanotic toes on the left foot, and they were not able to get pulses. According to the bilingual customer service specialist, this leg is going to be getting as there are no pulses there, and thrombectomy was unsuccessful. White count is 16.6 today, hemoglobin 7.9, hematocrit is 23.9, platelet count is 142, and neutrophils were 78, bands are 8, lymphocytes are 10. He had a chronic kidney disease. Lactate level, his ABG was done through the [facility] which shows pO2 of 97, pH is 7.36, CO2 is 16.7, saturations 99.4, and his creatinine is 4.3, BUN is 53. His glucose is 154. My impression is that this patient is in acute respiratory failure. 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 He is on a broad-spectrum antibiotic, Zosyn. However, Merrem was more sensitive but Merrem would increase his hyperkalemia. I was told when he came, his potassium was 10.2 which I would like to see on the labs, and we will follow. Teresa Barnett MD
[2018-03-19 08:39] LABS: BANDS 3 % (0-2); EOSINOPHIL 1 % (0-4); LYMPHOCYTE 6 % (20-40); MONOCYTE 2 % (0-10); NEUTROPHIL 88 % (50-75); PLATELET ESTIMATE DECREASED (NORMAL); TOTAL CELLS COUNTED 100
[2018-03-19 08:40] LABS: TOXIC GRANULATION PRESENT
[2018-03-19 08:42] LABS: ANISOCYTOSIS SLIGHT; HYPOCHROMIC SLIGHT; POLYCHROMIC SLIGHT
[2018-03-19] MEDS: Pantoprazole 40 mg Susp UD GT SCH (09:09)
[2018-03-19] MEDS: Sodium Bicarbonate 8.4% 150 MEQ in Dextrose 5% In Water 1,000 ML IV SCH (09:09)
[2018-03-19] MEDS: Valproic Acid 250 mg/5 ml UD Cup PO SCH ×2 (09:09→17:27)
--- NOTE | 2018-03-19 09:29 | CP.PCM.PN ---
Subjective - Date & Time of Evaluation Date of Evaluation: 03/19/18 Time of Evaluation: 09:26 - Subjective Subjective: patient on ventilator, not responsive Objective - Vital Signs/Intake and Output Vital Signs (last 24 hours): Temp Pulse Resp BP Pulse Ox 98.6 F 57 L 10 L 102/36 L 100 03/19/18 08:00 03/19/18 08:00 03/19/18 08:00 03/19/18 07:45 03/19/18 08:00 Intake and Output: 03/19/18 03/19/18 06:59 18:59 Intake Total 1860 160 Output Total 390 20 Balance 1470 140 - Medications Medications: Current Medications Albuterol/Ipratropium (Duoneb 3 Mg/0.5 Mg (3 Ml) Ud) 3 ml INH RQ6 [facility] Last Admin: 03/19/18 08:00 Dose: 3 ml Piperacillin Sod/Tazobactam (Sod 2.25 gm/ Sodium Chloride) 100 mls @ 200 mls/hr IVPB Q8H [facility]; Protocol Last Admin: 03/19/18 09:12 Dose: 200 mls/hr Daptomycin 400 mg/ Sodium (Chloride) 100 mls @ 100 mls/hr IV MWF [facility]; Protocol Stop: 03/26/18 09:01 Sodium Chloride (Sodium Chloride 0.45%) 1,000 mls @ 75 mls/hr IV .[id number] [facility] Potassium Phosphate 15 mmole/ (Sodium Chloride) 255 mls @ 63 mls/hr IV ONCE ONE Stop: 03/19/18 14:02 Insulin Human Regular (Novolin R) 0 unit SC Q6H [facility]; Protocol Nystatin (Nystop Topical Powder) 1 applic TOP BID [facility] Last Admin: 03/19/18 09:10 Dose: 1 applic Pantoprazole Sodium (Protonix Susp) 40 mg GT DAILY [facility] Last Admin: 03/19/18 09:09 Dose: 40 mg Pneumococcal Polyvalent Vaccine (Pneumovax 23 Vaccine) 0.5 ml IM .ONCE ONE Stop: 03/19/18 10:01 Last Admin: 03/19/18 09:10 Dose: 0.5 ml Valproate Sodium (Depakene Oral Soln) 250 mg PO BID [facility] Last Admin: 03/19/18 09:09 Dose: 250 mg - Labs Labs: 03/19/18 05:48 03/19/18 05:48 PT 13.4 SECONDS (9.7-12.2) H 03/14/18 15:49 INR 1.2 03/14/18 15:49 APTT 59 SECONDS (21-34) H D 03/16/18 10:48 - Constitutional Appears: Well - Head Exam Head Exam: ATRAUMATIC - Eye Exam Eye Exam: Normal appearance Pupil Exam: PERRL - ENT Exam ENT Exam: Mucous Membranes Moist - Respiratory Exam Respiratory Exam: Clear to Ausculation Bilateral, NORMAL BREATHING PATTERN. absent: Prolonged Expiratory Phase, Stridor - Cardiovascular Exam Cardiovascular Exam: REGULAR RHYTHM, +S1, +S2 - GI/Abdominal Exam GI & Abdominal Exam: Normal Bowel Sounds - Extremities Exam Additional comments: left lower foot necrosis with no pulses palapable, cool to touch and bluish, no necrotic ulcers - Back Exam Back Exam: NORMAL INSPECTION - Neurological Exam Neurological Exam: Alert Assessment and Plan - Assessment and Plan (Free Text) Assessment: Hypoxic respiratory failure -JOY -Sepsis/bacteremia not on pressors -necrotic left fllot -continue bronchodilators -continue ng tube feeds -metabolic and respiratory alkalosis: d/c bicarb ggt, continue 0.45 NS -JOY:avoid nephrotoxic drugs -continue dvt/pud ppx prognosis poor awaiting public guardian input regarding goals of care possible below knee amputation (surgical mortality high) or continue with abx with high risk of with gangrene of left lower leg on abx. Both management options has high risk of
[2018-03-19] MEDS: Sodium Chloride 0.45% 1,000 ML IV SCH ×2 (09:33→22:07)
[2018-03-19] MEDS ORDERED: (Novolin R) Insulin Human Regular 100 units/ml vial SC SCH (10:00)
[2018-03-19] MEDS ORDERED: Potassium Phosphate 15 MMOLE in Sodium Chloride 0.9% 250 ML IV ONE (10:00)
[2018-03-19] MEDS ORDERED: Pneumococcal 23-Valent Vaccine IM ONE (10:00)
--- NOTE | 2018-03-19 10:17 | CP.PCM.PN ---
Subjective - Date & Time of Evaluation Date of Evaluation: 03/19/18 Time of Evaluation: 10:14 - Subjective Subjective: Notes reviewed Condition unchanged Unresponsive Unable to provide history or ros due to ams Not a candidate for surgery noted Plan for contact guardian noted Objective - Vital Signs/Intake and Output Vital Signs (last 24 hours): Temp Pulse Resp BP Pulse Ox 98.6 F 63 11 L 113/35 L 100 03/19/18 08:00 03/19/18 09:00 03/19/18 09:00 03/19/18 08:45 03/19/18 09:00 Intake and Output: 03/19/18 03/19/18 06:59 18:59 Intake Total 1860 290 Output Total 390 450 Balance 1470 -160 - Medications Medications: Current Medications Albuterol/Ipratropium (Duoneb 3 Mg/0.5 Mg (3 Ml) Ud) 3 ml INH RQ6 [facility] Last Admin: 03/19/18 08:00 Dose: 3 ml Piperacillin Sod/Tazobactam (Sod 2.25 gm/ Sodium Chloride) 100 mls @ 200 mls/hr IVPB Q8H [facility]; Protocol Last Admin: 03/19/18 09:12 Dose: 200 mls/hr Daptomycin 400 mg/ Sodium (Chloride) 100 mls @ 100 mls/hr IV MWF [facility]; Protocol Stop: 03/26/18 09:01 Sodium Chloride (Sodium Chloride 0.45%) 1,000 mls @ 75 mls/hr IV .[id number] [facility] Last Admin: 03/19/18 09:33 Dose: 75 mls/hr Potassium Phosphate 15 mmole/ (Sodium Chloride) 255 mls @ 63 mls/hr IV ONCE ONE Stop: 03/19/18 14:02 Last Admin: 03/19/18 10:05 Dose: 63 mls/hr Insulin Human Regular (Novolin R) 0 unit SC Q6 [facility]; Protocol Nystatin (Nystop Topical Powder) 1 applic TOP BID [facility] Last Admin: 03/19/18 09:10 Dose: 1 applic Pantoprazole Sodium (Protonix Susp) 40 mg GT DAILY [facility] Last Admin: 03/19/18 09:09 Dose: 40 mg Valproate Sodium (Depakene Oral Soln) 250 mg PO BID [facility] Last Admin: 03/19/18 09:09 Dose: 250 mg - Labs Labs: 03/19/18 05:48 03/19/18 05:48 PT 13.4 SECONDS (9.7-12.2) H 03/14/18 15:49 INR 1.2 03/14/18 15:49 APTT 59 SECONDS (21-34) H D 03/16/18 10:48 - Constitutional Appears: Toxic, Chronically Ill - Eye Exam Eye Exam: absent: Conjunctival injection, Scleral icterus - ENT Exam ENT Exam: Mucous Membranes Moist - Respiratory Exam Respiratory Exam: Rales, Rhonchi - Cardiovascular Exam Cardiovascular Exam: +S1, +S2. absent: Rubs - GI/Abdominal Exam GI & Abdominal Exam: Soft, Normal Bowel Sounds - Extremities Exam Extremities Exam: absent: Joint Swelling, Pedal Edema - Neurological Exam Neurological Exam: absent: Alert, Awake - Skin Skin Exam: Dry, Intact Assessment and Plan (1) Sepsis Status: Acute (2) JOY (acute kidney injury) Status: Acute (3) Anemia Status: Acute (4) Change in mental status Status: Acute - Assessment and Plan (Free Text) Assessment: Agree with conservative treatment High mortality risk with any aggressive intervention Not a dialysis candidate given overall care plan Continue supportive care
--- NOTE | 2018-03-19 12:57 | CP.PCM.PN ---
Subjective - Date & Time of Evaluation Date of Evaluation: 03/19/18 Time of Evaluation: 09:00 - Subjective Subjective: clinically same Objective - Vital Signs/Intake and Output Vital Signs (last 24 hours): Temp Pulse Resp BP Pulse Ox 97.5 F L 54 L 11 L 119/37 L 100 03/19/18 12:00 03/19/18 12:00 03/19/18 12:00 03/19/18 11:47 03/19/18 12:00 Intake and Output: 03/19/18 03/19/18 06:59 18:59 Intake Total 1860 926 Output Total 390 1055 Balance 1470 -129 - Medications Medications: Current Medications Albuterol/Ipratropium (Duoneb 3 Mg/0.5 Mg (3 Ml) Ud) 3 ml INH RQ6 [facility] Last Admin: 03/19/18 08:00 Dose: 3 ml Heparin Sodium (Porcine) (Heparin) 5,000 units SC Q8 [facility] Piperacillin Sod/Tazobactam (Sod 2.25 gm/ Sodium Chloride) 100 mls @ 200 mls/hr IVPB Q8H [facility]; Protocol Last Admin: 03/19/18 09:12 Dose: 200 mls/hr Daptomycin 400 mg/ Sodium (Chloride) 100 mls @ 100 mls/hr IV MWF [facility]; Protocol Stop: 03/26/18 09:01 Sodium Chloride (Sodium Chloride 0.45%) 1,000 mls @ 75 mls/hr IV .[id number] [facility] Last Admin: 03/19/18 09:33 Dose: 75 mls/hr Potassium Phosphate 15 mmole/ (Sodium Chloride) 255 mls @ 63 mls/hr IV ONCE ONE Stop: 03/19/18 14:02 Last Admin: 03/19/18 10:05 Dose: 63 mls/hr Insulin Human Regular (Novolin R) 0 unit SC Q6 [facility]; Protocol Last Admin: 03/19/18 12:12 Dose: Not Given Nystatin (Nystop Topical Powder) 1 applic TOP BID [facility] Last Admin: 03/19/18 09:10 Dose: 1 applic Pantoprazole Sodium (Protonix Susp) 40 mg GT DAILY [facility] Last Admin: 03/19/18 09:09 Dose: 40 mg Valproate Sodium (Depakene Oral Soln) 250 mg PO BID [facility] Last Admin: 03/19/18 09:09 Dose: 250 mg - Labs Labs: 03/19/18 05:48 03/19/18 05:48 PT 13.4 SECONDS (9.7-12.2) H 03/14/18 15:49 INR 1.2 03/14/18 15:49 APTT 59 SECONDS (21-34) H D 03/16/18 10:48 - Constitutional Appears: Well - Head Exam Head Exam: ATRAUMATIC, NORMAL INSPECTION, NORMOCEPHALIC - Eye Exam Eye Exam: EOMI, Normal appearance, PERRL Pupil Exam: NORMAL ACCOMODATION, PERRL - ENT Exam ENT Exam: Mucous Membranes Moist, Normal Exam - Neck Exam Neck Exam: Full ROM, Normal Inspection. absent: Lymphadenopathy - Respiratory Exam Respiratory Exam: Decreased Breath Sounds - Cardiovascular Exam Cardiovascular Exam: REGULAR RHYTHM, +S1, +S2 - GI/Abdominal Exam GI & Abdominal Exam: Soft, Diminished Bowel Sounds - Rectal Exam Rectal Exam: Deferred
--- NOTE | 2018-03-19 21:07 | CP.PCM.PN ---
Subjective - Date & Time of Evaluation Date of Evaluation: 03/19/18 Time of Evaluation: 19:30 - Subjective Subjective: dictated Objective - Vital Signs/Intake and Output Vital Signs (last 24 hours): Temp Pulse Resp BP Pulse Ox 99 F 66 21 115/36 L 100 03/19/18 20:00 03/19/18 20:00 03/19/18 20:00 03/19/18 19:45 03/19/18 20:00 Intake and Output: 03/19/18 03/20/18 18:59 05:59 Intake Total 1907 120 Output Total 1535 Balance 372 120 - Medications Medications: Current Medications Albuterol/Ipratropium (Duoneb 3 Mg/0.5 Mg (3 Ml) Ud) 3 ml INH RQ6 [facility] Last Admin: 03/19/18 19:41 Dose: 3 ml Heparin Sodium (Porcine) (Heparin) 5,000 units SC Q8 [facility] Last Admin: 03/19/18 21:02 Dose: 5,000 units Piperacillin Sod/Tazobactam (Sod 2.25 gm/ Sodium Chloride) 100 mls @ 200 mls/hr IVPB Q8H [facility]; Protocol Last Admin: 03/19/18 17:28 Dose: 200 mls/hr Daptomycin 400 mg/ Sodium (Chloride) 100 mls @ 100 mls/hr IV MWF [facility]; Protocol Stop: 03/26/18 09:01 Sodium Chloride (Sodium Chloride 0.45%) 1,000 mls @ 75 mls/hr IV .[id number] [facility] Last Admin: 03/19/18 09:33 Dose: 75 mls/hr Insulin Human Regular (Novolin R) 0 unit SC Q6 [facility]; Protocol Last Admin: 03/19/18 18:27 Dose: Not Given Nystatin (Nystop Topical Powder) 1 applic TOP BID [facility] Last Admin: 03/19/18 17:30 Dose: 1 applic Pantoprazole Sodium (Protonix Susp) 40 mg GT DAILY [facility] Last Admin: 03/19/18 09:09 Dose: 40 mg Valproate Sodium (Depakene Oral Soln) 250 mg PO BID [facility] Last Admin: 03/19/18 17:27 Dose: 250 mg - Labs Labs: 03/19/18 05:48 03/19/18 05:48 PT 13.4 SECONDS (9.7-12.2) H 03/14/18 15:49 INR 1.2 03/14/18 15:49 APTT 59 SECONDS (21-34) H D 03/16/18 10:48
[2018-03-20] MEDS: Albuterol-Ipratrop 3 mg / 0.5 (3 ml) UD INH SCH ×4 (00:53→19:32)
[2018-03-20] MEDS: (Novolin R) Insulin Human Regular 100 units/ml vial SC SCH ×4 (01:00→18:52)
[2018-03-20] MEDS: Piperacillin/Tazobact 2.25 GM in Sodium Chloride 100 ML IVPB SCH ×3 (01:03→17:09)
[2018-03-20 06:04] LABS: ABG ALLEN TEST POS; ARTERIAL BLOOD GAS HCO3 26.4 mmol/L (21-28); ARTERIAL BLOOD GAS HEMOGLOBIN 17.7 g/dL (11.7-17.4); ARTERIAL BLOOD GAS O2 SAT 99.8 % (95-98); ARTERIAL BLOOD GAS PCO2 41 mm/Hg (35-45); ARTERIAL BLOOD GAS PH 7.42 (7.35-7.45); ARTERIAL BLOOD GAS PO2 187 mm/Hg (80-100); ARTERIAL BLOOD GAS TCO2 27.9 mmol/L (22-28)
[2018-03-20 06:24] LABS: BASO % 0.3 % (0.0-2.0); EOS # 0.2 K/uL (0.0-0.7); EOS % 1.3 % (0.0-4.0); HEMOGLOBIN 8.7 g/dL (12.0-18.0); LYMPH # 0.7 K/uL (1.0-4.3); LYMPH % 4.8 % (20.0-40.0); MEAN CORPUSCULAR HEMOGLOBIN 30.7 pg (27.0-31.0); MEAN CORPUSCULAR HGB CONC 33.3 g/dL (33.0-37.0); MEAN PLATELET VOLUME 8.5 fL (7.2-11.7); MONO # 0.5 K/uL (0.0-0.8); MONO % 3.5 % (0.0-10.0); NEUT # 13.4 K/uL (1.8-7.0); NEUT % 90.1 % (50.0-75.0); PLATELET COUNT 127 K/uL (130-400); RBC 2.85 Mil/uL (4.40-5.90); RED CELL DISTRIBUTION WIDTH 15.8 % (11.5-14.5); WHITE BLOOD COUNT 14.9 K/uL (4.8-10.8)
[2018-03-20 06:50] LABS: ALB/GLOB RATIO 0.8 (1.0-2.1); ALBUMIN 2.6 g/dL (3.5-5.0); CALCIUM 6.9 mg/dl (8.6-10.4)
--- NOTE | 2018-03-20 08:58 | RAD ---
Date of service: 03/20/2018 HISTORY: effusion COMPARISON: Portable chest 03/16/2018. FINDINGS: LUNGS: Endotracheal and nasogastric tubes do not appear simply changed in position as well as right center venous dialysis catheter. Limited patchy density is developing at the medial right base without silhouetting right hemidiaphragm or right heart border. Borderline retrocardiac patchy density developing as well. PLEURA: No significant pleural effusion identified, no pneumothorax apparent. CARDIOVASCULAR: No aortic atherosclerotic calcification present. Stable cardiomediastinal silhouette. No pulmonary vascular congestion. OSSEOUS STRUCTURES: No significant abnormalities. VISUALIZED UPPER ABDOMEN: Normal. OTHER FINDINGS: None. IMPRESSION: Developing airspace disease is noted at the bilateral medial bases though mild. Exam otherwise unchanged in the interval.
[2018-03-20 09:04] LABS: BANDS 2 % (0-2); EOSINOPHIL 3 % (0-4); LYMPHOCYTE 5 % (20-40); MONOCYTE 2 % (0-10); NEUTROPHIL 88 % (50-75); PLATELET ESTIMATE NORMAL (NORMAL); TOTAL CELLS COUNTED 100
[2018-03-20 09:05] LABS: ANISOCYTOSIS SLIGHT
[2018-03-20 09:16] LABS: HYPOCHROMIC SLIGHT; POLYCHROMIC SLIGHT
[2018-03-20 09:17] LABS: TOXIC GRANULATION PRESENT
[2018-03-20] MEDS: Pantoprazole 40 mg Susp UD GT SCH (09:31)
[2018-03-20] MEDS: Valproic Acid 250 mg/5 ml UD Cup PO SCH ×2 (09:31→17:09)
--- NOTE | 2018-03-20 11:58 | CP.PCM.PN ---
Subjective - Date & Time of Evaluation Date of Evaluation: 03/20/18 Time of Evaluation: 11:57 - Subjective Subjective: Patient more awake, alert tolerating CPAP Objective - Vital Signs/Intake and Output Vital Signs (last 24 hours): Temp Pulse Resp BP Pulse Ox 97.8 F 62 18 123/39 L 100 03/20/18 08:00 03/20/18 10:00 03/20/18 10:00 03/20/18 09:46 03/20/18 10:00 Intake and Output: 03/20/18 03/20/18 06:59 18:59 Intake Total 420 Output Total 860 Balance -440 - Medications Medications: Current Medications Albuterol/Ipratropium (Duoneb 3 Mg/0.5 Mg (3 Ml) Ud) 3 ml INH RQ6 [facility] Last Admin: 03/20/18 08:10 Dose: 3 ml Heparin Sodium (Porcine) (Heparin) 5,000 units SC Q8 [facility] Last Admin: 03/20/18 05:32 Dose: 5,000 units Piperacillin Sod/Tazobactam (Sod 2.25 gm/ Sodium Chloride) 100 mls @ 200 mls/hr IVPB Q8H [facility]; Protocol Last Admin: 03/20/18 09:31 Dose: 200 mls/hr Daptomycin 400 mg/ Sodium (Chloride) 100 mls @ 100 mls/hr IV MWF [facility]; Protocol Stop: 03/26/18 09:01 Insulin Human Regular (Novolin R) 0 unit SC Q6 [facility]; Protocol Last Admin: 03/20/18 05:32 Dose: Not Given Nystatin (Nystop Topical Powder) 1 applic TOP BID [facility] Last Admin: 03/20/18 09:32 Dose: 1 applic Pantoprazole Sodium (Protonix Susp) 40 mg GT DAILY [facility] Last Admin: 03/20/18 09:31 Dose: 40 mg Valproate Sodium (Depakene Oral Soln) 250 mg PO BID [facility] Last Admin: 03/20/18 09:31 Dose: 250 mg - Labs Labs: 03/20/18 06:18 03/20/18 06:18 PT 13.4 SECONDS (9.7-12.2) H 03/14/18 15:49 INR 1.2 03/14/18 15:49 APTT 59 SECONDS (21-34) H D 10/31/18 10:48 - Constitutional Appears: Well, Non-toxic - Head Exam Head Exam: ATRAUMATIC, NORMAL INSPECTION - Eye Exam Eye Exam: EOMI Pupil Exam: PERRL - ENT Exam ENT Exam: Mucous Membranes Moist - Respiratory Exam Respiratory Exam: Clear to Ausculation Bilateral, NORMAL BREATHING PATTERN. absent: Accessory Muscle Use, Chest Wall Tenderness, Rales, Respiratory Distress - Cardiovascular Exam Cardiovascular Exam: REGULAR RHYTHM, +S1, +S2 - GI/Abdominal Exam GI & Abdominal Exam: Normal Bowel Sounds - Extremities Exam Additional comments: left foot warm with cyanosis - Neurological Exam Neurological Exam: Alert, Awake Assessment and Plan - Assessment and Plan (Free Text) Assessment: Hypoxic respiratory failure -JOY -Sepsis/bacteremia not on pressors -necrotic left foot tolerating CPAP extubate -continue bronchodilators -ng to suction -metabolic and respiratory alkalosis: d/c bicarb ggt, continue 0.45 NS -JOY:avoid nephrotoxic drugs -continue dvt/pud ppx prognosis poor awaiting public guardian input regarding goals of care possible below knee amputation (surgical mortality high) or continue with abx with high risk of with gangrene of left lower leg on abx. Both management options has high risk of Addednum: patient tolerated CPAP and is extubated -d/c IVF
[2018-03-20 12:17] LABS: ARTERIAL BLOOD GAS O2 SAT 98.6 % (95-98); ARTERIAL BLOOD GAS PCO2 34 mm/Hg (35-45); ARTERIAL BLOOD GAS PH 7.45 (7.35-7.45); ARTERIAL BLOOD GAS PO2 75 mm/Hg (80-100); ARTERIAL BLOOD GAS TCO2 24.6 mmol/L (22-28)
--- NOTE | 2018-03-20 13:06 | CP.PCM.PN ---
Subjective - Date & Time of Evaluation Date of Evaluation: 03/20/18 Time of Evaluation: 11:15 - Subjective Subjective: clinically same Objective - Vital Signs/Intake and Output Vital Signs (last 24 hours): Temp Pulse Resp BP Pulse Ox 98.2 F 57 L 20 123/77 100 03/20/18 12:00 03/20/18 12:00 03/20/18 12:00 03/20/18 11:45 03/20/18 12:00 Intake and Output: 03/20/18 03/20/18 06:59 18:59 Intake Total 420 Output Total 995 Balance -575 - Medications Medications: Current Medications Albuterol/Ipratropium (Duoneb 3 Mg/0.5 Mg (3 Ml) Ud) 3 ml INH RQ6 [facility] Last Admin: 03/20/18 08:10 Dose: 3 ml Heparin Sodium (Porcine) (Heparin) 5,000 units SC Q8 [facility] Last Admin: 03/20/18 05:32 Dose: 5,000 units Piperacillin Sod/Tazobactam (Sod 2.25 gm/ Sodium Chloride) 100 mls @ 200 mls/hr IVPB Q8H [facility]; Protocol Last Admin: 03/20/18 09:31 Dose: 200 mls/hr Daptomycin 400 mg/ Sodium (Chloride) 100 mls @ 100 mls/hr IV MWF [facility]; Protocol Stop: 03/26/18 09:01 Insulin Human Regular (Novolin R) 0 unit SC Q6 [facility]; Protocol Last Admin: 03/20/18 12:18 Dose: Not Given Nystatin (Nystop Topical Powder) 1 applic TOP BID [facility] Last Admin: 03/20/18 09:32 Dose: 1 applic Pantoprazole Sodium (Protonix Susp) 40 mg GT DAILY [facility] Last Admin: 03/20/18 09:31 Dose: 40 mg Valproate Sodium (Depakene Oral Soln) 250 mg PO BID [facility] Last Admin: 03/20/18 09:31 Dose: 250 mg - Labs Labs: 03/20/18 06:18 03/20/18 06:18 PT 13.4 SECONDS (9.7-12.2) H 03/14/18 15:49 INR 1.2 03/14/18 15:49 APTT 59 SECONDS (21-34) H D 03/16/18 10:48 - Constitutional Appears: Well - Head Exam Head Exam: ATRAUMATIC, NORMAL INSPECTION, NORMOCEPHALIC - Eye Exam Eye Exam: EOMI, Normal appearance, PERRL Pupil Exam: NORMAL ACCOMODATION, PERRL - ENT Exam ENT Exam: Mucous Membranes Moist, Normal Exam - Neck Exam Neck Exam: Full ROM, Normal Inspection. absent: Lymphadenopathy - Respiratory Exam Respiratory Exam: Decreased Breath Sounds - Cardiovascular Exam Cardiovascular Exam: REGULAR RHYTHM, +S1, +S2 - GI/Abdominal Exam GI & Abdominal Exam: Soft, Diminished Bowel Sounds - Rectal Exam Rectal Exam: Deferred
[2018-03-21] MEDS: (Novolin R) Insulin Human Regular 100 units/ml vial SC SCH ×5 (00:17→23:47)
[2018-03-21] MEDS: Piperacillin/Tazobact 2.25 GM in Sodium Chloride 100 ML IVPB SCH ×3 (01:07→17:07)
[2018-03-21] MEDS: Albuterol-Ipratrop 3 mg / 0.5 (3 ml) UD INH SCH ×5 (01:49→19:22)
[2018-03-21 06:40] LABS: BASO % 0.4 % (0.0-2.0); EOS # 0.2 K/uL (0.0-0.7); EOS % 1.4 % (0.0-4.0); HEMOGLOBIN 8.9 g/dL (12.0-18.0); LYMPH # 0.8 K/uL (1.0-4.3); LYMPH % 6.8 % (20.0-40.0); MEAN CELL VOLUME 91.1 fL (80.0-94.0); MEAN CORPUSCULAR HEMOGLOBIN 30.4 pg (27.0-31.0); MEAN CORPUSCULAR HGB CONC 33.4 g/dL (33.0-37.0); MEAN PLATELET VOLUME 8.1 fL (7.2-11.7); MONO # 0.5 K/uL (0.0-0.8); MONO % 4.5 % (0.0-10.0); NEUT # 9.6 K/uL (1.8-7.0); NEUT % 86.9 % (50.0-75.0); PLATELET COUNT 197 K/uL (130-400); RBC 2.94 Mil/uL (4.40-5.90); WHITE BLOOD COUNT 11.1 K/uL (4.8-10.8)
[2018-03-21 06:54] LABS: ALB/GLOB RATIO 0.8 (1.0-2.1); ALBUMIN 2.6 g/dL (3.5-5.0); CALCIUM 7.2 mg/dl (8.6-10.4)
[2018-03-21] MEDS ORDERED: Potassium Chloride 20 mEq/15 ml LIQ UD PO ONE (08:00)
[2018-03-21 08:24] LABS: ANISOCYTOSIS SLIGHT; EOSINOPHIL 2 % (0-4); LYMPHOCYTE 8 % (20-40); MONOCYTE 2 % (0-10); NEUTROPHIL 88 % (50-75); PLATELET ESTIMATE NORMAL (NORMAL); TOTAL CELLS COUNTED 100
[2018-03-21 08:25] LABS: HYPOCHROMIC SLIGHT; POLYCHROMIC SLIGHT
--- NOTE | 2018-03-21 08:26 | PN ---
DATE: 03/19/2018 SUBJECTIVE: The patient is seen today. The patient remains intubated and sedated. He is on the ventilator. He is admitted with altered mental status and has a gangrene of the left foot and has been on dialysis on this admission. He has a dialysis catheter on the right chest wall. I cannot get any history as he is intubated. His vitals are noted. PHYSICAL EXAMINATION: VITAL SIGNS: Show T-max is 99, blood pressure is 115/36, respirations are 21, and saturations 100%. HEENT: Head is atraumatic, normocephalic. NECK: Supple. LUNGS: Decreased breath sounds. HEART: S1 and S2 are irregularly irregular. Actually, it was sinus at this time. ABDOMEN: Soft. He has a colostomy. Also has a sacral decubitus. EXTREMITIES: Left leg, left foot is gangrenous totally. The nurse was trying to get Dopplers, but he was unable to get any on the foot and the dorsalis pedis or the posterior tibial. LABORATORY DATA: His lab showed white count is 16.6, slightly better than yesterday. Hemoglobin remained 8.3. His lactic acid and ABG are noted. His creatinine is 3.2, is elevated. ASSESSMENT AND PLAN: The patient is with acute respiratory failure. He did come in with hyperkalemia and has gangrene of the left foot. We will follow. Prognosis remains guarded. Teresa Barnett MD
[2018-03-21] MEDS: Valproic Acid 250 mg/5 ml UD Cup PO SCH ×2 (09:24→17:11)
[2018-03-21] MEDS: Pantoprazole 40 mg Susp UD GT SCH (09:24)
--- NOTE | 2018-03-21 11:21 | CP.PCM.PN ---
Subjective - Date & Time of Evaluation Date of Evaluation: 03/21/18 Time of Evaluation: 11:19 - Subjective Subjective: extubated 03/20 more respponsive DO=939 ml azotemia about same K being repleted Objective - Vital Signs/Intake and Output Vital Signs (last 24 hours): Temp Pulse Resp BP Pulse Ox 97.4 F L 78 18 138/53 L 100 03/21/18 08:00 03/21/18 11:16 03/21/18 11:16 03/21/18 11:16 03/21/18 11:16 Intake and Output: 03/21/18 03/21/18 06:59 18:59 Intake Total 145 525 Output Total 390 360 Balance -245 165 - Medications Medications: Current Medications Albuterol/Ipratropium (Duoneb 3 Mg/0.5 Mg (3 Ml) Ud) 3 ml INH RQ6 [facility] Last Admin: 03/21/18 08:13 Dose: 3 ml Heparin Sodium (Porcine) (Heparin) 5,000 units SC Q8 [facility] Last Admin: 03/21/18 05:09 Dose: 5,000 units Piperacillin Sod/Tazobactam (Sod 2.25 gm/ Sodium Chloride) 100 mls @ 200 mls/hr IVPB Q8H [facility]; Protocol Last Admin: 03/21/18 10:48 Dose: 200 mls/hr Daptomycin 400 mg/ Sodium (Chloride) 100 mls @ 100 mls/hr IV MWF [facility]; Protocol Stop: 03/26/18 09:01 Last Admin: 03/21/18 09:18 Dose: 100 mls/hr Insulin Human Regular (Novolin R) 0 unit SC Q6 [facility]; Protocol Last Admin: 03/21/18 06:09 Dose: Not Given Nystatin (Nystop Topical Powder) 1 applic TOP BID [facility] Last Admin: 03/21/18 09:25 Dose: 1 applic Pantoprazole Sodium (Protonix Susp) 40 mg GT DAILY [facility] Last Admin: 03/21/18 09:24 Dose: 40 mg Valproate Sodium (Depakene Oral Soln) 250 mg PO BID [facility] Last Admin: 03/21/18 09:24 Dose: 250 mg - Labs Labs: 03/21/18 06:26 03/21/18 06:27 PT 13.4 SECONDS (9.7-12.2) H 03/14/18 15:49 INR 1.2 03/14/18 15:49 APTT 59 SECONDS (21-34) H D 03/16/18 10:48 - Constitutional Appears: In Acute Distress, Confused, Chronically Ill - Head Exam Head Exam: ATRAUMATIC, NORMAL INSPECTION - Eye Exam Eye Exam: EOMI, Normal appearance - Neck Exam Neck Exam: Normal Inspection. absent: Tenderness - Respiratory Exam Respiratory Exam: Rhonchi, Respiratory Distress - Cardiovascular Exam Cardiovascular Exam: REGULAR RHYTHM, +S1 - GI/Abdominal Exam GI & Abdominal Exam: Soft. absent: Tenderness - Extremities Exam Extremities Exam: Normal Inspection. absent: Tenderness - Neurological Exam Neurological Exam: Altered - Skin Skin Exam: Dry, Warm Assessment and Plan (1) Sepsis Status: Acute (2) JOY (acute kidney injury) Status: Acute (3) CKD (chronic kidney disease) stage 4, GFR 15-29 ml/min Status: Acute (4) UTI (urinary tract infection) Status: Acute (5) Dementia Status: Chronic - Assessment and Plan (Free Text) Plan: Continue to monitor lytes, renal function ICU care as before
--- NOTE | 2018-03-21 13:41 | CP.CCUPN ---
<Tony Carrillo - Last Filed: 03/21/18 18:09> CCU Subjective - Physician Review Events Since Last Encounter (Free Text): 03/21/18 13:39 No acute events overnight Subjective (Free Text): 03/21/18 13:38 PGY1 Critical Care Progress Note for Dr. Greenfield Patient was seen at bedside this morning. No acute events overnight. Patient minimally responsive. Patient extubated 03/20. Feeding through NG tube. ROS could not be obtained due to clinical condition. Critical Care Time Spent (in minutes): 35 CCU Objective - Vital Signs / Intake & Output Vital Signs (Last 4 hours): Vital Signs Pulse Resp BP Pulse Ox 03/21/18 13:00 59 L 21 100 03/21/18 12:37 59 L 22 119/49 L 100 03/21/18 12:34 62 22 117/51 L 100 03/21/18 12:09 86 119/51 L 100 03/21/18 12:01 82 15 115/78 100 03/21/18 12:00 77 21 98 03/21/18 11:58 80 19 132/90 100 03/21/18 11:56 88 18 94/53 L 100 03/21/18 11:49 79 16 108/82 100 03/21/18 11:40 78 12 147/54 L 100 03/21/18 11:34 89 20 128/53 L 100 03/21/18 11:31 79 14 121/64 100 03/21/18 11:22 77 14 108/67 99 03/21/18 11:20 77 13 103/52 L 98 03/21/18 11:16 78 18 138/53 L 100 03/21/18 11:08 64 11 L 149/61 100 03/21/18 10:00 58 L 17 100 03/21/18 09:45 61 15 136/62 100 Intake and Output (Last 8hrs): Intake & Output 03/20/18 03/21/18 03/21/18 22:59 06:59 14:59 Intake Total 150 145 570 Output Total 225 330 610 Balance -75 -185 -40 Weight 116 lb Intake: Intake, IV Amount 100 100 200 Left External Jugular 0 Right Wrist 100 100 200 Oral 50 Tube Feeding 0 45 270 Other 100 Output: Urine 225 330 210 Urethral (Mendes) 225 330 210 Urine, Voided 0 Stool 400 - Physical Exam Head: Positive for: Atraumatic, Normocephalic Pupils: Positive for: PERRL Extroacular Muscles: Positive for: EOMI Mouth: Positive for: Dry Neck: Positive for: Normal Range of Motion. Negative for: JVD Respiratory/Chest: Positive for: Clear to Auscultation. Negative for: Respiratory Distress, Decreased Breath Sounds Cardiovascular: Positive for: Regular Rate and Rhythm, Normal S1, S2 Abdomen: Positive for: Ostomy Tubes (iliostomy bag clean and dry). Negative for: Tenderness, Distention Upper Extremity: Positive for: Normal Inspection, Capillary Refill < 2s. Negative for: Edema Lower Extremity: Negative for: Normal Inspection, Edema, CALF TENDERNESS, NORMAL PULSES (Left lower extremity is cool to touch compared to the right and black in color. No pulses palpable on left lower extremity for pedal and/or popliteal pulses. ) Skin: Positive for: Other (Left Foot: Cold, dry, color is black throughout left foot plantar and dorsal/plantar toes. ) Psychiatric: Positive for: Alert. Negative for: Oriented x 3 - Medications Active Medications: Active Medications Generic Name Dose Route Start Last Admin Trade Name Freq PRN Reason Stop Dose Admin Albuterol/Ipratropium 3 ml 03/14/18 20:00 03/21/18 08:13 Duoneb 3 Mg/0.5 Mg (3 Ml) Ud INH 3 ml RQ6 NEL Administration Heparin Sodium (Porcine) 5,000 units 03/19/18 14:00 03/21/18 05:09 Heparin SC 5,000 units Q8 NEL Administration Piperacillin Sod/Tazobactam 100 mls @ 200 mls/hr 03/15/18 02:00 03/21/18 10:48 Sod 2.25 gm/ Sodium Chloride IVPB 200 mls/hr Q8H NEL Administration Protocol Daptomycin 400 mg/ Sodium 100 mls @ 100 mls/hr 03/21/18 09:00 03/21/18 09:18 Chloride IV 03/26/18 09:01 100 mls/hr MWF NEL Administration Protocol Insulin Human Regular 0 unit 03/19/18 12:00 03/21/18 12:48 Novolin R SC Not Given Q6 NEL Protocol Nystatin 1 applic 03/18/18 11:00 03/21/18 09:25 Nystop Topical Powder TOP 1 applic BID NEL Administration Pantoprazole Sodium 40 mg 03/19/18 10:00 03/21/18 09:24 Protonix Susp GT 40 mg DAILY NEL Administration Valproate Sodium 250 mg 03/17/18 10:30 03/21/18 09:24 Depakene Oral Soln PO 250 mg BID NEL Administration - Patient Studies Lab Studies: Microbiology Studies 03/18/18 10:44 Blood Culture - Preliminary Blood-Venous NO GROWTH AFTER 3 DAYS 03/18/18 09:15 Blood Culture - Preliminary Blood-Venous NO GROWTH AFTER 3 DAYS 03/18/18 13:59 Urine Culture - Final Urine,Catheterized Pseudomonas Aeruginosa Yeast Species Lab Studies 03/21/18 03/21/18 03/21/18 Range/Units 06:27 06:26 05:21 WBC 11.1 H (4.8-10.8) K/uL RBC 2.94 L (4.40-5.90) Mil/uL Hgb 8.9 L (12.0-18.0) g/dL Hct 26.8 L (35.0-51.0) % MCV 91.1 (80.0-94.0) fL MCH 30.4 (27.0-31.0) pg MCHC 33.4 (33.0-37.0) g/dL RDW 16.0 H (11.5-14.5) % Plt Count 197 (130-400) K/uL MPV 8.1 (7.2-11.7) fL Neut % (Auto) 86.9 H (50.0-75.0) % Lymph % (Auto) 6.8 L (20.0-40.0) % [facility] % (Auto) 4.5 (0.0-10.0) % Eos % (Auto) 1.4 (0.0-4.0) % Baso % (Auto) 0.4 (0.0-2.0) % Neut # (Auto) 9.6 H (1.8-7.0) K/uL Lymph # (Auto) 0.8 L (1.0-4.3) K/uL [facility] # (Auto) 0.5 (0.0-0.8) K/uL Eos # (Auto) 0.2 (0.0-0.7) K/uL Baso # (Auto) 0.0 (0.0-0.2) K/uL Neutrophils % (Manual) 88 H (50-75) % Lymphocytes % (Manual) 8 L (20-40) % Monocytes % (Manual) 2 (0-10) % Eosinophils % (Manual) 2 (0-4) % Platelet Estimate Normal (NORMAL) Polychromasia Slight Hypochromasia (manual) Slight Anisocytosis (manual) Slight Sodium 149 H (132-148) mmol/L Potassium 3.5 L (3.6-5.2) mmol/L Chloride 113 H (98-107) mmol/L Carbon Dioxide 28 (22-30) mmol/L Anion Gap 12 (10-20) BUN 38 H (9-20) mg/dL Creatinine 2.9 H (0.8-1.5) mg/dL Est GFR ( Amer) 26 Est GFR (Non-Af Amer) 21 POC Glucose (mg/dL) 82 (65-110) mg/dL Random Glucose 81 (75-110) mg/dL Calcium 7.2 L (8.6-10.4) mg/dl Phosphorus 2.9 (2.5-4.5) mg/dL Magnesium 1.9 (1.6-2.3) mg/dL Total Bilirubin 0.5 (0.2-1.3) mg/dL AST 42 (17-59) U/L ALT 44 (21-72) U/L Alkaline Phosphatase 148 H (38-126) U/L Total Protein 5.8 L (6.3-8.3) g/dL Albumin 2.6 L (3.5-5.0) g/dL Globulin 3.2 (2.2-3.9) gm/dL Albumin/Globulin Ratio 0.8 L (1.0-2.1) 03/21/18 03/20/18 03/20/18 Range/Units 00:03 18:25 11:43 WBC (4.8-10.8) K/uL RBC (4.40-5.90) Mil/uL Hgb (12.0-18.0) g/dL Hct (35.0-51.0) % MCV (80.0-94.0) fL MCH (27.0-31.0) pg MCHC (33.0-37.0) g/dL RDW (11.5-14.5) % Plt Count (130-400) K/uL MPV (7.2-11.7) fL Neut % (Auto) (50.0-75.0) % Lymph % (Auto) (20.0-40.0) % [facility] % (Auto) (0.0-10.0) % Eos % (Auto) (0.0-4.0) % Baso % (Auto) (0.0-2.0) % Neut # (Auto) (1.8-7.0) K/uL Lymph # (Auto) (1.0-4.3) K/uL [facility] # (Auto) (0.0-0.8) K/uL Eos # (Auto) (0.0-0.7) K/uL Baso # (Auto) (0.0-0.2) K/uL Neutrophils % (Manual) (50-75) % Lymphocytes % (Manual) (20-40) % Monocytes % (Manual) (0-10) % Eosinophils % (Manual) (0-4) % Platelet Estimate (NORMAL) Polychromasia Hypochromasia (manual) Anisocytosis (manual) Sodium (132-148) mmol/L Potassium (3.6-5.2) mmol/L Chloride (98-107) mmol/L Carbon Dioxide (22-30) mmol/L Anion Gap (10-20) BUN (9-20) mg/dL Creatinine (0.8-1.5) mg/dL Est GFR ( Amer) Est GFR (Non-Af Amer) POC Glucose (mg/dL) 89 91 128 H (65-110) mg/dL Random Glucose (75-110) mg/dL Calcium (8.6-10.4) mg/dl Phosphorus (2.5-4.5) mg/dL Magnesium (1.6-2.3) mg/dL Total Bilirubin (0.2-1.3) mg/dL AST (17-59) U/L ALT (21-72) U/L Alkaline Phosphatase (38-126) U/L Total Protein (6.3-8.3) g/dL Albumin (3.5-5.0) g/dL Globulin (2.2-3.9) gm/dL Albumin/Globulin Ratio (1.0-2.1) Laboratory Results - last 24 hr 03/20/18 03/20/18 03/21/18 11:43 18:25 00:03 WBC RBC Hgb Hct MCV MCH MCHC RDW Plt Count MPV Neut % (Auto) Lymph % (Auto) [facility] % (Auto) Eos % (Auto) Baso % (Auto) Neut # (Auto) Lymph # (Auto) [facility] # (Auto) Eos # (Auto) Baso # (Auto) Neutrophils % (Manual) Lymphocytes % (Manual) Monocytes % (Manual) Eosinophils % (Manual) Platelet Estimate Polychromasia Hypochromasia (manual) Anisocytosis (manual) Sodium Potassium Chloride Carbon Dioxide Anion Gap BUN Creatinine Est GFR ( Amer) Est GFR (Non-Af Amer) POC Glucose (mg/dL) 128 H 91 89 Random Glucose Calcium Phosphorus Magnesium Total Bilirubin AST ALT Alkaline Phosphatase Total Protein Albumin Globulin Albumin/Globulin Ratio 03/21/18 03/21/18 03/21/18 05:21 06:26 06:27 WBC 11.1 H RBC 2.94 L Hgb 8.9 L Hct 26.8 L MCV 91.1 MCH 30.4 MCHC 33.4 RDW 16.0 H Plt Count 197 MPV 8.1 Neut % (Auto) 86.9 H Lymph % (Auto) 6.[address] [facility] % (Auto) 4.5 Eos % (Auto) 1.4 Baso % (Auto) 0.4 Neut # (Auto) 9.6 H Lymph # (Auto) 0.[address] [facility] # (Auto) 0.5 Eos # (Auto) 0.2 Baso # (Auto) 0.0 Neutrophils % (Manual) 88 H Lymphocytes % (Manual) 8 L Monocytes % (Manual) 2 Eosinophils % (Manual) 2 Platelet Estimate Normal Polychromasia Slight Hypochromasia (manual) Slight Anisocytosis (manual) Slight Sodium 149 H Potassium 3.5 L Chloride 113 H Carbon Dioxide 28 Anion Gap 12 BUN 38 H Creatinine 2.9 H Est GFR ( Amer) 26 Est GFR (Non-Af Amer) 21 POC Glucose (mg/dL) 82 Random Glucose 81 Calcium 7.2 L Phosphorus 2.9 Magnesium 1.9 Total Bilirubin 0.5 AST 42 ALT 44 Alkaline Phosphatase 148 H Total Protein 5.8 L Albumin 2.6 L Globulin 3.2 Albumin/Globulin Ratio 0.8 L Fingerstick Blood Sugar Results: 130 Review of Systems - Review of Systems Systems not reviewed;Unavailable: Acuity of Condition Critical Care Progress Note - Nutrition Nutrition: Nutrition Category Date Time Status NPO Diet [DIET] Diets 03/14/18 Breakfast Active Assessment/Plan - Assessment and Plan (Free Text) Assessment: This is a 72-year-old male with PMH obtained from previous records which include, but is not limited to: Anemia, Dementia, Atrial Fibrillation, CKD stage 4, CHF, Diabetes Mellitus, who [facility] status. Full history could not be obtained at the time of the exam due to patient being minimally responsive. While in the ED: CODE SEPSIS was called 2/2 elevated lactic acid. Vascular Surgery was consulted (Dr. Ceron.) Patient was found to be hyperkalemic with positive EKG changes and was treated in ED. ICU team consulted for need for emergent dialysis. Please Note, ROS could not be obtained due to clinical condition. Patient underwent emergent dialysis via left femoral shiley. Since 03/15, shiley removed. Permacath placed by Dr. Ceron. Patient remains on vent since 03/15. Patient is currently DNR. Hospice being decided. Renal: Stage 4 CKD Hyperkalemia, improved - Hypokalemic today K+=3.5; repleted - Emergent dialysis on 03/14 Metabolic acidosis likely secondary to renal insufficiency - CBC, CMP, Mg, Phos Acute Renal Failure - Nephrology consulted (Dr. Jean,) recommendations appreciated * Oliguric * Monitor I&O * Increased metabolic acidosis as well * Made DNR * Prognosis poor- not a dialysis candidate Anemia of chronic disease - Transfused 1 PRBCs - Repeat H/H ID: Sepsis likely secondary to UTI vs gangrenous limb 2/2 Critical Limb Ischemia - Leukocytosis improved WBC=11.1 - Patient was afebrile today - ID Consulted (Dr. Barnett); recommendations appreciated * Continue current ABXs (Zosyn) - General Surgery consulted regarding left lower extremity; Dr. Ceron; Recommendations appreciated * Not surgical candidate at this time Neuro: - Patient is able to be aroused but minimally responsive on exam - Monitor neuro checks CV: No acute issues - Monitor Critical Limb Ischemia (left) - Heparin 25,000 Units @12units/kg/hr - Surgery consulted (Dr. Ceron) * Patient s/p embolectomy 03/15 * Permacath placed on right subclavian 03/15 Pulm: - Patient intubated as of 03/15 - Monitor GI/: - Colostomy bag on right in tact - NPO except meds - Tube Feedings with Glucerna - Monitor I&O - Protonix 40mg IVP daily Patient seen and case discussed with Dr. Gin Carrillo PGY1 <Joaquin Greenfield - Last Filed: 03/21/18 19:33> CCU Objective - Vital Signs / Intake & Output Vital Signs (Last 4 hours): Vital Signs Temp Pulse Resp BP Pulse Ox 03/21/18 18:00 58 L 20 100 03/21/18 17:49 66 20 130/58 L 100 03/21/18 17:00 70 19 100 03/21/18 16:49 60 20 125/57 L 100 03/21/18 16:00 97.6 F 54 L 20 100 03/21/18 15:49 55 L 17 137/61 100 Intake and Output (Last 8hrs): Intake & Output 03/21/18 03/21/18 03/21/18 06:59 14:59 22:59 Intake Total 145 660 380 Output Total 330 810 600 Balance -185 -150 -220 Weight 116 lb Intake: Intake, IV Amount 100 200 100 Left Upper arm 100 Right Wrist 100 200 Tube Feeding 45 360 180 Other 100 100 Output: Urine 330 210 0 Urethral (Mendes) 330 210 Urine, Voided 0 0 Stool 600 600 - Medications Active Medications: Active Medications Generic Name Dose Route Start Last Admin Trade Name Freq PRN Reason Stop Dose Admin Albuterol/Ipratropium 3 ml 03/14/18 20:00 03/21/18 19:22 Duoneb 3 Mg/0.5 Mg (3 Ml) Ud INH 3 ml RQ6 NEL Administration Heparin Sodium (Porcine) 5,000 units 03/19/18 14:00 03/21/18 14:31 Heparin SC 5,000 units Q8 NEL Administration Piperacillin Sod/Tazobactam 100 mls @ 200 mls/hr 03/15/18 02:00 03/21/18 17:07 Sod 2.25 gm/ Sodium Chloride IVPB 200 mls/hr Q8H NEL Administration Protocol Daptomycin 400 mg/ Sodium 100 mls @ 100 mls/hr 03/21/18 09:00 03/21/18 09:18 Chloride IV 03/26/18 09:01 100 mls/hr [facility] NEL Administration Protocol Insulin Human Regular 0 unit 03/19/18 12:00 03/21/18 17:36 Novolin R SC 1 units Q6 NEL Administration Protocol Nystatin 1 applic 03/18/18 11:00 03/21/18 17:08 Nystop Topical Powder TOP 1 applic BID NEL Administration Pantoprazole Sodium 40 mg 03/19/18 10:00 03/21/18 09:24 Protonix Susp GT 40 mg DAILY NEL Administration Valproate Sodium 250 mg 03/17/18 10:30 03/21/18 17:11 Depakene Oral Soln PO 250 mg BID NEL Administration - Patient Studies Lab Studies: Microbiology Studies 03/18/18 10:44 Blood Culture - Preliminary Blood-Venous NO GROWTH AFTER 3 DAYS 03/18/18 09:15 Blood Culture - Preliminary Blood-Venous NO GROWTH AFTER 3 DAYS Lab Studies 03/21/18 03/21/18 03/21/18 Range/Units 17:29 11:24 06:27 WBC (4.8-10.8) K/uL RBC (4.40-5.90) Mil/uL Hgb (12.0-18.0) g/dL Hct (35.0-51.0) % MCV (80.0-94.0) fL MCH (27.0-31.0) pg MCHC (33.0-37.0) g/dL RDW (11.5-14.5) % Plt Count (130-400) K/uL MPV (7.2-11.7) fL Neut % (Auto) (50.0-75.0) % Lymph % (Auto) (20.0-40.0) % [facility] % (Auto) (0.0-10.0) % Eos % (Auto) (0.0-4.0) % Baso % (Auto) (0.0-2.0) % Neut # (Auto) (1.8-7.0) K/uL Lymph # (Auto) (1.0-4.3) K/uL [facility] # (Auto) (0.0-0.8) K/uL Eos # (Auto) (0.0-0.7) K/uL Baso # (Auto) (0.0-0.2) K/uL Neutrophils % (Manual) (50-75) % Lymphocytes % (Manual) (20-40) % Monocytes % (Manual) (0-10) % Eosinophils % (Manual) (0-4) % Platelet Estimate (NORMAL) Polychromasia Hypochromasia (manual) Anisocytosis (manual) Sodium 149 H (132-148) mmol/L Potassium 3.5 L (3.6-5.2) mmol/L Chloride 113 H (98-107) mmol/L Carbon Dioxide 28 (22-30) mmol/L Anion Gap 12 (10-20) BUN 38 H (9-20) mg/dL Creatinine 2.9 H (0.8-1.5) mg/dL Est GFR ( Amer) 26 Est GFR (Non-Af Amer) 21 POC Glucose (mg/dL) 162 H 130 H (65-110) mg/dL Random Glucose 81 (75-110) mg/dL Calcium 7.2 L (8.6-10.4) mg/dl Phosphorus 2.9 (2.5-4.5) mg/dL Magnesium 1.9 (1.6-2.3) mg/dL Total Bilirubin 0.5 (0.2-1.3) mg/dL AST 42 (17-59) U/L ALT 44 (21-72) U/L Alkaline Phosphatase 148 H (38-126) U/L Total Protein 5.8 L (6.3-8.3) g/dL Albumin 2.6 L (3.5-5.0) g/dL Globulin 3.2 (2.2-3.9) gm/dL Albumin/Globulin Ratio 0.8 L (1.0-2.1) 03/21/18 03/21/18 03/21/18 Range/Units 06:26 05:21 00:03 WBC 11.1 H (4.8-10.8) K/uL RBC 2.94 L (4.40-5.90) Mil/uL Hgb 8.9 L (12.0-18.0) g/dL Hct 26.8 L (35.0-51.0) % MCV 91.1 (80.0-94.0) fL MCH 30.4 (27.0-31.0) pg MCHC 33.4 (33.0-37.0) g/dL RDW 16.0 H (11.5-14.5) % Plt Count 197 (130-400) K/uL MPV 8.1 (7.2-11.7) fL Neut % (Auto) 86.9 H (50.0-75.0) % Lymph % (Auto) 6.8 L (20.0-40.0) % [facility] % (Auto) 4.5 (0.0-10.0) % Eos % (Auto) 1.4 (0.0-4.0) % Baso % (Auto) 0.4 (0.0-2.0) % Neut # (Auto) 9.6 H (1.8-7.0) K/uL Lymph # (Auto) 0.8 L (1.0-4.3) K/uL [facility] # (Auto) 0.5 (0.0-0.8) K/uL Eos # (Auto) 0.2 (0.0-0.7) K/uL Baso # (Auto) 0.0 (0.0-0.2) K/uL Neutrophils % (Manual) 88 H (50-75) % Lymphocytes % (Manual) 8 L (20-40) % Monocytes % (Manual) 2 (0-10) % Eosinophils % (Manual) 2 (0-4) % Platelet Estimate Normal (NORMAL) Polychromasia Slight Hypochromasia (manual) Slight Anisocytosis (manual) Slight Sodium (132-148) mmol/L Potassium (3.6-5.2) mmol/L Chloride (98-107) mmol/L Carbon Dioxide (22-30) mmol/L Anion Gap (10-20) BUN (9-20) mg/dL Creatinine (0.8-1.5) mg/dL Est GFR ( Amer) Est GFR (Non-Af Amer) POC Glucose (mg/dL) 82 89 (65-110) mg/dL Random Glucose (75-110) mg/dL Calcium (8.6-10.4) mg/dl Phosphorus (2.5-4.5) mg/dL Magnesium (1.6-2.3) mg/dL Total Bilirubin (0.2-1.3) mg/dL AST (17-59) U/L ALT (21-72) U/L Alkaline Phosphatase (38-126) U/L Total Protein (6.3-8.3) g/dL Albumin (3.5-5.0) g/dL Globulin (2.2-3.9) gm/dL Albumin/Globulin Ratio (1.0-2.1) 03/20/18 03/20/18 Range/Units 18:25 11:43 WBC (4.8-10.8) K/uL RBC (4.40-5.90) Mil/uL Hgb (12.0-18.0) g/dL Hct (35.0-51.0) % MCV (80.0-94.0) fL MCH (27.0-31.0) pg MCHC (33.0-37.0) g/dL RDW (11.5-14.5) % Plt Count (130-400) K/uL MPV (7.2-11.7) fL Neut % (Auto) (50.0-75.0) % Lymph % (Auto) (20.0-40.0) % [facility] % (Auto) (0.0-10.0) % Eos % (Auto) (0.0-4.0) % Baso % (Auto) (0.0-2.0) % Neut # (Auto) (1.8-7.0) K/uL Lymph # (Auto) (1.0-4.3) K/uL [facility] # (Auto) (0.0-0.8) K/uL Eos # (Auto) (0.0-0.7) K/uL Baso # (Auto) (0.0-0.2) K/uL Neutrophils % (Manual) (50-75) % Lymphocytes % (Manual) (20-40) % Monocytes % (Manual) (0-10) % Eosinophils % (Manual) (0-4) % Platelet Estimate (NORMAL) Polychromasia Hypochromasia (manual) Anisocytosis (manual) Sodium (132-148) mmol/L Potassium (3.6-5.2) mmol/L Chloride (98-107) mmol/L Carbon Dioxide (22-30) mmol/L Anion Gap (10-20) BUN (9-20) mg/dL Creatinine (0.8-1.5) mg/dL Est GFR ( Amer) Est GFR (Non-Af Amer) POC Glucose (mg/dL) 91 128 H (65-110) mg/dL Random Glucose (75-110) mg/dL Calcium (8.6-10.4) mg/dl Phosphorus (2.5-4.5) mg/dL Magnesium (1.6-2.3) mg/dL Total Bilirubin (0.2-1.3) mg/dL AST (17-59) U/L ALT (21-72) U/L Alkaline Phosphatase (38-126) U/L Total Protein (6.3-8.3) g/dL Albumin (3.5-5.0) g/dL Globulin (2.2-3.9) gm/dL Albumin/Globulin Ratio (1.0-2.1) Laboratory Results - last 24 hr 03/20/18 03/20/18 03/21/18 11:43 18:25 00:03 WBC RBC Hgb Hct MCV MCH MCHC RDW Plt Count MPV Neut % (Auto) Lymph % (Auto) [facility] % (Auto) Eos % (Auto) Baso % (Auto) Neut # (Auto) Lymph # (Auto) [facility] # (Auto) Eos # (Auto) Baso # (Auto) Neutrophils % (Manual) Lymphocytes % (Manual) Monocytes % (Manual) Eosinophils % (Manual) Platelet Estimate Polychromasia Hypochromasia (manual) Anisocytosis (manual) Sodium Potassium Chloride Carbon Dioxide Anion Gap BUN Creatinine Est GFR ( Amer) Est GFR (Non-Af Amer) POC Glucose (mg/dL) 128 H 91 89 Random Glucose Calcium Phosphorus Magnesium Total Bilirubin AST ALT Alkaline Phosphatase Total Protein Albumin Globulin Albumin/Globulin Ratio 03/21/18 03/21/18 03/21/18 05:21 06:26 06:27 WBC 11.1 H RBC 2.94 L Hgb 8.9 L Hct 26.8 L MCV 91.1 MCH 30.4 MCHC 33.4 RDW 16.0 H Plt Count 197 MPV 8.1 Neut % (Auto) 86.9 H Lymph % (Auto) 6.[address] % (Auto) 4.5 Eos % (Auto) 1.4 Baso % (Auto) 0.4 Neut # (Auto) 9.6 H Lymph # (Auto) 0.[address] # (Auto) 0.5 Eos # (Auto) 0.2 Baso # (Auto) 0.0 Neutrophils % (Manual) 88 H Lymphocytes % (Manual) 8 L Monocytes % (Manual) 2 Eosinophils % (Manual) 2 Platelet Estimate Normal Polychromasia Slight Hypochromasia (manual) Slight Anisocytosis (manual) Slight Sodium 149 H Potassium 3.5 L Chloride 113 H Carbon Dioxide 28 Anion Gap 12 BUN 38 H Creatinine 2.9 H Est GFR ( Amer) 26 Est GFR (Non-Af Amer) 21 POC Glucose (mg/dL) 82 Random Glucose 81 Calcium 7.2 L Phosphorus 2.9 Magnesium 1.9 Total Bilirubin 0.5 AST 42 ALT 44 Alkaline Phosphatase 148 H Total Protein 5.8 L Albumin 2.6 L Globulin 3.2 Albumin/Globulin Ratio 0.8 L 03/21/18 03/21/18 11:24 17:29 WBC RBC Hgb Hct MCV MCH MCHC RDW Plt Count MPV Neut % (Auto) Lymph % (Auto) [facility] % (Auto) Eos % (Auto) Baso % (Auto) Neut # (Auto) Lymph # (Auto) [facility] # (Auto) Eos # (Auto) Baso # (Auto) Neutrophils % (Manual) Lymphocytes % (Manual) Monocytes % (Manual) Eosinophils % (Manual) Platelet Estimate Polychromasia Hypochromasia (manual) Anisocytosis (manual) Sodium Potassium Chloride Carbon Dioxide Anion Gap BUN Creatinine Est GFR ( Amer) Est GFR (Non-Af Amer) POC Glucose (mg/dL) 130 H 162 H Random Glucose Calcium Phosphorus Magnesium Total Bilirubin AST ALT Alkaline Phosphatase Total Protein Albumin Globulin Albumin/Globulin Ratio Critical Care Progress Note - Nutrition Nutrition: Nutrition Category Date Time Status NPO Diet [DIET] Diets 03/14/18 Breakfast Active Attending/Attestation - Attestation I have personally seen and examined this patient.: Yes I have fully participated in the care of the patient.: Yes I have reviewed all pertinent clinical information: Yes Notes (Text): 03/21/18 19:32 for possible hospice
--- NOTE | 2018-03-21 14:42 | CP.PCM.PN ---
Subjective - Date & Time of Evaluation Date of Evaluation: 03/21/18 Time of Evaluation: 10:45 - Subjective Subjective: clinically samee Objective - Vital Signs/Intake and Output Vital Signs (last 24 hours): Temp Pulse Resp BP Pulse Ox 97.4 F L 58 L 18 119/49 L 100 03/21/18 08:00 03/21/18 14:00 03/21/18 14:00 03/21/18 12:37 03/21/18 14:00 Intake and Output: 03/21/18 03/21/18 06:59 18:59 Intake Total 145 570 Output Total 390 610 Balance -245 -40 - Medications Medications: Current Medications Albuterol/Ipratropium (Duoneb 3 Mg/0.5 Mg (3 Ml) Ud) 3 ml INH RQ6 NEL Last Admin: 03/21/18 13:59 Dose: 3 ml Heparin Sodium (Porcine) (Heparin) 5,000 units SC Q8 NEL Last Admin: 03/21/18 14:31 Dose: 5,000 units Piperacillin Sod/Tazobactam (Sod 2.25 gm/ Sodium Chloride) 100 mls @ 200 mls/hr IVPB Q8H NEL; Protocol Last Admin: 03/21/18 10:48 Dose: 200 mls/hr Daptomycin 400 mg/ Sodium (Chloride) 100 mls @ 100 mls/hr IV MWF NEL; Protocol Stop: 03/26/18 09:01 Last Admin: 03/21/18 09:18 Dose: 100 mls/hr Insulin Human Regular (Novolin R) 0 unit SC Q6 NEL; Protocol Last Admin: 03/21/18 12:48 Dose: Not Given Nystatin (Nystop Topical Powder) 1 applic TOP BID NEL Last Admin: 03/21/18 09:25 Dose: 1 applic Pantoprazole Sodium (Protonix Susp) 40 mg GT DAILY [facility] Last Admin: 03/21/18 09:24 Dose: 40 mg Valproate Sodium (Depakene Oral Soln) 250 mg PO BID NEL Last Admin: 03/21/18 09:24 Dose: 250 mg - Labs Labs: 03/21/18 06:26 03/21/18 06:27 PT 13.4 SECONDS (9.7-12.2) H 03/14/18 15:49 INR 1.2 03/14/18 15:49 APTT 59 SECONDS (21-34) H D 03/16/18 10:48
--- NOTE | 2018-03-21 16:04 | CP.PCM.PN ---
Subjective - Date & Time of Evaluation Date of Evaluation: 03/21/18 Time of Evaluation: 16:00 - Subjective Subjective: dictated Objective - Vital Signs/Intake and Output Vital Signs (last 24 hours): Temp Pulse Resp BP Pulse Ox 97.6 F 57 L 21 135/57 L 100 03/21/18 12:00 03/21/18 15:00 03/21/18 15:00 03/21/18 14:49 03/21/18 15:00 Intake and Output: 03/21/18 03/21/18 06:59 18:59 Intake Total 145 705 Output Total 390 810 Balance -245 -105 - Medications Medications: Current Medications Albuterol/Ipratropium (Duoneb 3 Mg/0.5 Mg (3 Ml) Ud) 3 ml INH RQ6 NEL Last Admin: 03/21/18 13:59 Dose: 3 ml Heparin Sodium (Porcine) (Heparin) 5,000 units SC Q8 NEL Last Admin: 03/21/18 14:31 Dose: 5,000 units Piperacillin Sod/Tazobactam (Sod 2.25 gm/ Sodium Chloride) 100 mls @ 200 mls/hr IVPB Q8H NEL; Protocol Last Admin: 03/21/18 10:48 Dose: 200 mls/hr Daptomycin 400 mg/ Sodium (Chloride) 100 mls @ 100 mls/hr IV MWF NEL; Protocol Stop: 03/26/18 09:01 Last Admin: 03/21/18 09:18 Dose: 100 mls/hr Insulin Human Regular (Novolin R) 0 unit SC Q6 NEL; Protocol Last Admin: 03/21/18 12:48 Dose: Not Given Nystatin (Nystop Topical Powder) 1 applic TOP BID NEL Last Admin: 03/21/18 09:25 Dose: 1 applic Pantoprazole Sodium (Protonix Susp) 40 mg GT DAILY NEL Last Admin: 03/21/18 09:24 Dose: 40 mg Valproate Sodium (Depakene Oral Soln) 250 mg PO BID NEL Last Admin: 03/21/18 09:24 Dose: 250 mg - Labs Labs: 03/21/18 06:26 03/21/18 06:27 PT 13.4 SECONDS (9.7-12.2) H 03/14/18 15:49 INR 1.2 03/14/18 15:49 APTT 59 SECONDS (21-34) H D 03/16/18 10:48
--- NOTE | 2018-03-21 19:17 | PN ---
DATE: 03/21/2018 SUBJECTIVE: The patient is with altered mental status. He is with psych issues. He is with a Venti mask at this time, has a triple lumen on the left neck. Right chest wall has a dialysis catheter. PHYSICAL EXAMINATION NECK: Supple. LUNGS: Clear. Occasional rhonchi. HEART: S1, S2 is alex at this time with a heart rate of 54. ABDOMEN: Soft, nontender. No guarding, no rigidity present. He has a colostomy. EXTREMITIES: His left foot toes are swollen and has gangrene going on. The right leg is unremarkable. LABORATORY DATA: Labs are noted. White count is 11.1, hemoglobin 8.9, hematocrit 26.8, platelet count . MEDICATIONS: He is on Cubicin and Zosyn at this time; we will continue those. The patient has a state-appointed POA. We are awaiting to see what their further plans are as per the POA and other consultants. The patient has gangrene of the leg and is awaiting for it to be demarcated. Teresa Barnett MD
[2018-03-22] MEDS: Piperacillin/Tazobact 2.25 GM in Sodium Chloride 100 ML IVPB SCH ×3 (01:02→17:24)
[2018-03-22] MEDS: Albuterol-Ipratrop 3 mg / 0.5 (3 ml) UD INH SCH ×3 (01:31→19:37)
[2018-03-22] MEDS: (Novolin R) Insulin Human Regular 100 units/ml vial SC SCH ×3 (06:00→18:10)
[2018-03-22 06:16] LABS: BASO % 0.4 % (0.0-2.0); EOS # 0.1 K/uL (0.0-0.7); EOS % 1.2 % (0.0-4.0); HEMOGLOBIN 9.9 g/dL (12.0-18.0); LYMPH # 0.8 K/uL (1.0-4.3); LYMPH % 7.3 % (20.0-40.0); MEAN CELL VOLUME 92.2 fL (80.0-94.0); MEAN CORPUSCULAR HEMOGLOBIN 30.8 pg (27.0-31.0); MEAN CORPUSCULAR HGB CONC 33.4 g/dL (33.0-37.0); MEAN PLATELET VOLUME 8.1 fL (7.2-11.7); MONO # 0.5 K/uL (0.0-0.8); MONO % 4.1 % (0.0-10.0); NEUT # 9.8 K/uL (1.8-7.0); PLATELET COUNT 258 K/uL (130-400); RBC 3.21 Mil/uL (4.40-5.90); WHITE BLOOD COUNT 11.3 K/uL (4.8-10.8)
[2018-03-22 06:55] LABS: ALB/GLOB RATIO 0.9 (1.0-2.1); ALBUMIN 2.9 g/dL (3.5-5.0); CALCIUM 8.1 mg/dl (8.6-10.4)
[2018-03-22 08:55] LABS: BASOPHIL 1 % (0-2); EOSINOPHIL 2 % (0-4); LYMPHOCYTE 8 % (20-40); MONOCYTE 4 % (0-10); NEUTROPHIL 85 % (50-75); PLATELET ESTIMATE NORMAL (NORMAL); TOTAL CELLS COUNTED 100
[2018-03-22 08:56] LABS: ANISOCYTOSIS SLIGHT
[2018-03-22 08:57] LABS: HYPOCHROMIC SLIGHT; POIKILOCYTOSIS SLIGHT
[2018-03-22] MEDS: Valproic Acid 250 mg/5 ml UD Cup PO SCH ×2 (10:11→17:24)
[2018-03-22] MEDS: Pantoprazole 40 mg Susp UD GT SCH (10:11)
--- NOTE | 2018-03-22 11:42 | CP.CCUPN ---
<Tony Carrillo - Last Filed: 03/22/18 16:20> CCU Subjective - Physician Review Events Since Last Encounter (Free Text): 03/22/18 11:41 No acute events overnight Subjective (Free Text): 03/22/18 11:41 PGY1 Critical Care Progress Note for Dr. Stern Patient was seen at bedside this morning. No acute events overnight. Patient minimally responsive. Patient extubated 03/20. Feeding through NG tube. ROS could not be obtained due to clinical condition. Critical Care Time Spent (in minutes): 35 CCU Objective - Vital Signs / Intake & Output Vital Signs (Last 4 hours): Vital Signs Temp Pulse Resp BP Pulse Ox 03/22/18 08:00 97.5 F L 61 11 L 100 03/22/18 07:49 61 15 120/47 L 100 Intake and Output (Last 8hrs): Intake & Output 03/21/18 03/22/18 03/22/18 22:59 06:59 14:59 Intake Total 560 460 90 Output Total 600 575 Balance -40 460 -485 Weight 115 lb 8 oz Intake: Intake, IV Amount 100 100 Left Upper arm 100 100 Tube Feeding 360 360 90 Other 100 Output: Urine 0 Urine, Voided 0 Stool 600 575 - Physical Exam Head: Positive for: Atraumatic, Normocephalic Pupils: Positive for: PERRL Extroacular Muscles: Positive for: EOMI Mouth: Positive for: Dry Neck: Positive for: Normal Range of Motion. Negative for: JVD Respiratory/Chest: Positive for: Clear to Auscultation. Negative for: Respiratory Distress, Decreased Breath Sounds Cardiovascular: Positive for: Regular Rate and Rhythm, Normal S1, S2 Abdomen: Positive for: Ostomy Tubes (iliostomy bag clean and dry). Negative for: Tenderness, Distention Upper Extremity: Positive for: Normal Inspection, Capillary Refill < 2s. Negative for: Edema Lower Extremity: Negative for: Normal Inspection, Edema, CALF TENDERNESS, NORMAL PULSES (Left lower extremity is cool to touch compared to the right and black in color. No pulses palpable on left lower extremity for pedal and/or popliteal pulses. ) Skin: Positive for: Other (Left Foot: Cold, dry, color is black throughout left foot plantar and dorsal/plantar toes. ) Psychiatric: Positive for: Alert. Negative for: Oriented x 3 - Medications Active Medications: Active Medications Generic Name Dose Route Start Last Admin Trade Name Joseq PRN Reason Stop Dose Admin Albuterol/Ipratropium 3 ml 03/14/18 20:00 03/22/18 01:31 Duoneb 3 Mg/0.5 Mg (3 Ml) Ud INH 3 ml RQ6 NEL Administration Heparin Sodium (Porcine) 5,000 units 03/19/18 14:00 03/22/18 05:27 Heparin SC 5,000 units Q8 NEL Administration Piperacillin Sod/Tazobactam 100 mls @ 200 mls/hr 03/15/18 02:00 03/22/18 10:11 Sod 2.25 gm/ Sodium Chloride IVPB 200 mls/hr Q8H NEL Administration Protocol Daptomycin 400 mg/ Sodium 100 mls @ 100 mls/hr 03/21/18 09:00 03/21/18 09:18 Chloride IV 03/26/18 09:01 100 mls/hr MWF NEL Administration Protocol Insulin Human Regular 0 unit 03/19/18 12:00 03/22/18 06:00 Novolin R SC Not Given Q6 NEL Protocol Nystatin 1 applic 03/18/18 11:00 03/22/18 10:12 Nystop Topical Powder TOP 1 applic BID NEL Administration Pantoprazole Sodium 40 mg 03/19/18 10:00 03/22/18 10:11 Protonix Susp GT 40 mg DAILY NEL Administration Valproate Sodium 250 mg 03/17/18 10:30 03/22/18 10:11 Depakene Oral Soln PO 250 mg BID NEL Administration - Patient Studies Lab Studies: Microbiology Studies 03/18/18 10:44 Blood Culture - Preliminary Blood-Venous NO GROWTH AFTER 4 DAYS 03/18/18 09:15 Blood Culture - Preliminary Blood-Venous NO GROWTH AFTER 4 DAYS Lab Studies 03/22/18 03/22/18 03/22/18 Range/Units 06:08 06:08 04:45 WBC 11.3 H (4.8-10.8) K/uL RBC 3.21 L (4.40-5.90) Mil/uL Hgb 9.9 L (12.0-18.0) g/dL Hct 29.6 L (35.0-51.0) % MCV 92.2 (80.0-94.0) fL MCH 30.8 (27.0-31.0) pg MCHC 33.4 (33.0-37.0) g/dL RDW 16.0 H (11.5-14.5) % Plt Count 258 (130-400) K/uL MPV 8.1 (7.2-11.7) fL Neut % (Auto) 87.0 H (50.0-75.0) % Lymph % (Auto) 7.3 L (20.0-40.0) % [place] % (Auto) 4.1 (0.0-10.0) % Eos % (Auto) 1.2 (0.0-4.0) % Baso % (Auto) 0.4 (0.0-2.0) % Neut # (Auto) 9.8 H (1.8-7.0) K/uL Lymph # (Auto) 0.8 L (1.0-4.3) K/uL [place] # (Auto) 0.5 (0.0-0.8) K/uL Eos # (Auto) 0.1 (0.0-0.7) K/uL Baso # (Auto) 0.0 (0.0-0.2) K/uL Neutrophils % (Manual) 85 H (50-75) % Lymphocytes % (Manual) 8 L (20-40) % Monocytes % (Manual) 4 (0-10) % Eosinophils % (Manual) 2 (0-4) % Basophils % (Manual) 1 (0-2) % Platelet Estimate Normal (NORMAL) Hypochromasia (manual) Slight Poikilocytosis (manual Slight Anisocytosis (manual) Slight Sodium 151 H (132-148) mmol/L Potassium 3.8 (3.6-5.2) mmol/L Chloride 115 H (98-107) mmol/L Carbon Dioxide 26 (22-30) mmol/L Anion Gap 14 (10-20) BUN 43 H (9-20) mg/dL Creatinine 2.7 H (0.8-1.5) mg/dL Est GFR ( Amer) 28 Est GFR (Non-Af Amer) 23 POC Glucose (mg/dL) 135 H (65-110) mg/dL Random Glucose 102 (75-110) mg/dL Calcium 8.1 L (8.6-10.4) mg/dl Phosphorus 2.9 (2.5-4.5) mg/dL Magnesium 2.0 (1.6-2.3) mg/dL Total Bilirubin 0.4 (0.2-1.3) mg/dL AST 33 (17-59) U/L ALT 36 (21-72) U/L Alkaline Phosphatase 170 H (38-126) U/L Total Protein 6.1 L (6.3-8.3) g/dL Albumin 2.9 L (3.5-5.0) g/dL Globulin 3.3 (2.2-3.9) gm/dL Albumin/Globulin Ratio 0.9 L (1.0-2.1) 03/21/18 03/21/18 03/21/18 Range/Units 23:41 17:29 11:24 WBC (4.8-10.8) K/uL RBC (4.40-5.90) Mil/uL Hgb (12.0-18.0) g/dL Hct (35.0-51.0) % MCV (80.0-94.0) fL MCH (27.0-31.0) pg MCHC (33.0-37.0) g/dL RDW (11.5-14.5) % Plt Count (130-400) K/uL MPV (7.2-11.7) fL Neut % (Auto) (50.0-75.0) % Lymph % (Auto) (20.0-40.0) % [place] % (Auto) (0.0-10.0) % Eos % (Auto) (0.0-4.0) % Baso % (Auto) (0.0-2.0) % Neut # (Auto) (1.8-7.0) K/uL Lymph # (Auto) (1.0-4.3) K/uL [place] # (Auto) (0.0-0.8) K/uL Eos # (Auto) (0.0-0.7) K/uL Baso # (Auto) (0.0-0.2) K/uL Neutrophils % (Manual) (50-75) % Lymphocytes % (Manual) (20-40) % Monocytes % (Manual) (0-10) % Eosinophils % (Manual) (0-4) % Basophils % (Manual) (0-2) % Platelet Estimate (NORMAL) Hypochromasia (manual) Poikilocytosis (manual Anisocytosis (manual) Sodium (132-148) mmol/L Potassium (3.6-5.2) mmol/L Chloride (98-107) mmol/L Carbon Dioxide (22-30) mmol/L Anion Gap (10-20) BUN (9-20) mg/dL Creatinine (0.8-1.5) mg/dL Est GFR ( Amer) Est GFR (Non-Af Amer) POC Glucose (mg/dL) 156 H 162 H 130 H (65-110) mg/dL Random Glucose (75-110) mg/dL Calcium (8.6-10.4) mg/dl Phosphorus (2.5-4.5) mg/dL Magnesium (1.6-2.3) mg/dL Total Bilirubin (0.2-1.3) mg/dL AST (17-59) U/L ALT (21-72) U/L Alkaline Phosphatase (38-126) U/L Total Protein (6.3-8.3) g/dL Albumin (3.5-5.0) g/dL Globulin (2.2-3.9) gm/dL Albumin/Globulin Ratio (1.0-2.1) Laboratory Results - last 24 hr 03/21/18 03/21/18 03/21/18 11:24 17:29 23:41 WBC RBC Hgb Hct MCV MCH MCHC RDW Plt Count MPV Neut % (Auto) Lymph % (Auto) [place] % (Auto) Eos % (Auto) Baso % (Auto) Neut # (Auto) Lymph # (Auto) [place] # (Auto) Eos # (Auto) Baso # (Auto) Neutrophils % (Manual) Lymphocytes % (Manual) Monocytes % (Manual) Eosinophils % (Manual) Basophils % (Manual) Platelet Estimate Hypochromasia (manual) Poikilocytosis (manual Anisocytosis (manual) Sodium Potassium Chloride Carbon Dioxide Anion Gap BUN Creatinine Est GFR ( Amer) Est GFR (Non-Af Amer) POC Glucose (mg/dL) 130 H 162 H 156 H Random Glucose Calcium Phosphorus Magnesium Total Bilirubin AST ALT Alkaline Phosphatase Total Protein Albumin Globulin Albumin/Globulin Ratio 03/22/18 03/22/18 03/22/18 04:45 06:08 06:08 WBC 11.3 H RBC 3.21 L Hgb 9.9 L Hct 29.6 L MCV 92.2 MCH 30.8 MCHC 33.4 RDW 16.0 H Plt Count 258 MPV 8.1 Neut % (Auto) 87.0 H Lymph % (Auto) 7.3 L [place] % (Auto) 4.1 Eos % (Auto) 1.2 Baso % (Auto) 0.4 Neut # (Auto) 9.8 H Lymph # (Auto) 0.8 L [place] # (Auto) 0.5 Eos # (Auto) 0.1 Baso # (Auto) 0.0 Neutrophils % (Manual) 85 H Lymphocytes % (Manual) 8 L Monocytes % (Manual) 4 Eosinophils % (Manual) 2 Basophils % (Manual) 1 Platelet Estimate Normal Hypochromasia (manual) Slight Poikilocytosis (manual Slight Anisocytosis (manual) Slight Sodium 151 H Potassium 3.8 Chloride 115 H Carbon Dioxide 26 Anion Gap 14 BUN 43 H Creatinine 2.7 H Est GFR ( Amer) 28 Est GFR (Non-Af Amer) 23 POC Glucose (mg/dL) 135 H Random Glucose 102 Calcium 8.1 L Phosphorus 2.9 Magnesium 2.0 Total Bilirubin 0.4 AST 33 ALT 36 Alkaline Phosphatase 170 H Total Protein 6.1 L Albumin 2.9 L Globulin 3.3 Albumin/Globulin Ratio 0.9 L Fingerstick Blood Sugar Results: 130 Review of Systems - Review of Systems Systems not reviewed;Unavailable: Acuity of Condition Critical Care Progress Note - Nutrition Nutrition: Nutrition Category Date Time Status NPO Diet [DIET] Diets 03/14/18 Breakfast Active Assessment/Plan - Assessment and Plan (Free Text) Assessment: This is a 72-year-old male with PMH obtained from previous records which include, but is not limited to: Anemia, Dementia, Atrial Fibrillation, CKD stage 4, CHF, Diabetes Mellitus, who [facility] for altered mental status. Full history could not be obtained at the time of the exam due to patient being minimally responsive. While in the ED: CODE SEPSIS was called 2/2 elevated lactic acid. Vascular Surgery was consulted (Dr. Ceron.) Patient was found to be hyperkalemic with positive EKG changes and was treated in ED. ICU team consulted for need for emergent dialysis. Please Note, ROS could not be obtained due to clinical condition. Patient underwent emergent dialysis via left femoral shiley. Since 03/15, shiley removed. Permacath placed by Dr. Ceron. Patient extubated as of 03/20/. Patient is currently DNR. Hospice being decided. Renal: Stage 4 CKD Hyperkalemia, improved - Hypokalemic today K+=3.5; repleted - Emergent dialysis on 03/14 Metabolic acidosis likely secondary to renal insufficiency - CBC, CMP, Mg, Phos Acute Renal Failure - Nephrology consulted (Dr. Jean,) recommendations appreciated * Oliguric * Monitor I&O * Increased metabolic acidosis as well * Made DNR * Prognosis poor Anemia of chronic disease - Transfused 1 PRBCs - Repeat H/H ID: Sepsis likely secondary to UTI vs gangrenous limb 2/2 Critical Limb Ischemia - Leukocytosis improved WBC=11.1 - Patient was afebrile today - ID Consulted (Dr. Barnett); recommendations appreciated * Continue current ABXs (Zosyn) - General Surgery consulted regarding left lower extremity; Dr. Ceron; Recommendations appreciated * Plan is for AK[facility] tomorrow Neuro: - Patient is able to be aroused but minimally responsive on exam - Monitor neuro checks CV: No acute issues - Monitor Critical Limb Ischemia (left) - Heparin 25,000 Units @12units/kg/hr - Surgery consulted (Dr. Ceron) * Patient s/p embolectomy 03/15 * Permacath placed on right subclavian 03/15 Pulm: - Patient intubated as of 03/15 - Extubated 03/20 - Monitor GI/: - Colostomy bag on right in tact - NPO except meds - Tube Feedings with Glucerna - Monitor I&O - Protonix 40mg IVP daily Patient seen and case discussed with Dr. Jarred Carrillo PGY1 <Elder Stern S - Last Filed: 03/22/18 17:17> CCU Objective - Vital Signs / Intake & Output Vital Signs (Last 4 hours): Vital Signs Temp Pulse Resp BP Pulse Ox 03/22/18 16:09 64 20 96/35 L 96 03/22/18 16:00 97.4 F L 70 23 95 03/22/18 15:08 70 124/86 98 03/22/18 15:00 82 21 03/22/18 14:00 71 16 100 03/22/18 13:53 68 16 124/59 L 100 Intake and Output (Last 8hrs): Intake & Output 03/22/18 03/22/18 03/22/18 06:59 14:59 22:59 Intake Total 460 360 90 Output Total 575 Balance 460 -215 90 Weight 115 lb 8 oz Intake: Intake, IV Amount 100 Left Upper arm 100 Tube Feeding 360 360 90 Output: Stool 575 - Medications Active Medications: Active Medications Generic Name Dose Route Start Last Admin Trade Name Freq PRN Reason Stop Dose Admin Albuterol/Ipratropium 3 ml 03/14/18 20:00 03/22/18 08:45 Duoneb 3 Mg/0.5 Mg (3 Ml) Ud INH 3 ml RQ6 NEL Administration Heparin Sodium (Porcine) 5,000 units 03/19/18 14:00 03/22/18 14:18 Heparin SC 5,000 units Q8 NEL Administration Piperacillin Sod/Tazobactam 100 mls @ 200 mls/hr 03/15/18 02:00 03/22/18 10:11 Sod 2.25 gm/ Sodium Chloride IVPB 200 mls/hr Q8H NEL Administration Protocol Daptomycin 400 mg/ Sodium 100 mls @ 100 mls/hr 03/21/18 09:00 03/21/18 09:18 Chloride IV 03/26/18 09:01 100 mls/hr MWF NEL Administration Protocol Insulin Human Regular 0 unit 03/19/18 12:00 03/22/18 12:44 Novolin R SC 1 units Q6 NEL Administration Protocol Nystatin 1 applic 03/18/18 11:00 03/22/18 10:12 Nystop Topical Powder TOP 1 applic BID NEL Administration Pantoprazole Sodium 40 mg 03/19/18 10:00 03/22/18 10:11 Protonix Susp GT 40 mg DAILY NEL Administration Valproate Sodium 250 mg 03/17/18 10:30 03/22/18 10:11 Depakene Oral Soln PO 250 mg BID NEL Administration - Patient Studies Lab Studies: Microbiology Studies 03/18/18 10:44 Blood Culture - Preliminary Blood-Venous NO GROWTH AFTER 4 DAYS 03/18/18 09:15 Blood Culture - Preliminary Blood-Venous NO GROWTH AFTER 4 DAYS Lab Studies 03/22/18 03/22/18 03/22/18 Range/Units 11:51 06:08 06:08 WBC 11.3 H (4.8-10.8) K/uL RBC 3.21 L (4.40-5.90) Mil/uL Hgb 9.9 L (12.0-18.0) g/dL Hct 29.6 L (35.0-51.0) % MCV 92.2 (80.0-94.0) fL MCH 30.8 (27.0-31.0) pg MCHC 33.4 (33.0-37.0) g/dL RDW 16.0 H (11.5-14.5) % Plt Count 258 (130-400) K/uL MPV 8.1 (7.2-11.7) fL Neut % (Auto) 87.0 H (50.0-75.0) % Lymph % (Auto) 7.3 L (20.0-40.0) % [place] % (Auto) 4.1 (0.0-10.0) % Eos % (Auto) 1.2 (0.0-4.0) % Baso % (Auto) 0.4 (0.0-2.0) % Neut # (Auto) 9.8 H (1.8-7.0) K/uL Lymph # (Auto) 0.8 L (1.0-4.3) K/uL [place] # (Auto) 0.5 (0.0-0.8) K/uL Eos # (Auto) 0.1 (0.0-0.7) K/uL Baso # (Auto) 0.0 (0.0-0.2) K/uL Neutrophils % (Manual) 85 H (50-75) % Lymphocytes % (Manual) 8 L (20-40) % Monocytes % (Manual) 4 (0-10) % Eosinophils % (Manual) 2 (0-4) % Basophils % (Manual) 1 (0-2) % Platelet Estimate Normal (NORMAL) Hypochromasia (manual) Slight Poikilocytosis (manual Slight Anisocytosis (manual) Slight Sodium 151 H (132-148) mmol/L Potassium 3.8 (3.6-5.2) mmol/L Chloride 115 H (98-107) mmol/L Carbon Dioxide 26 (22-30) mmol/L Anion Gap 14 (10-20) BUN 43 H (9-20) mg/dL Creatinine 2.7 H (0.8-1.5) mg/dL Est GFR ( Amer) 28 Est GFR (Non-Af Amer) 23 POC Glucose (mg/dL) 179 H (65-110) mg/dL Random Glucose 102 (75-110) mg/dL Calcium 8.1 L (8.6-10.4) mg/dl Phosphorus 2.9 (2.5-4.5) mg/dL Magnesium 2.0 (1.6-2.3) mg/dL Total Bilirubin 0.4 (0.2-1.3) mg/dL AST 33 (17-59) U/L ALT 36 (21-72) U/L Alkaline Phosphatase 170 H (38-126) U/L Total Protein 6.1 L (6.3-8.3) g/dL Albumin 2.9 L (3.5-5.0) g/dL Globulin 3.3 (2.2-3.9) gm/dL Albumin/Globulin Ratio 0.9 L (1.0-2.1) 03/22/18 03/21/18 03/21/18 Range/Units 04:45 23:41 17:29 WBC (4.8-10.8) K/uL RBC (4.40-5.90) Mil/uL Hgb (12.0-18.0) g/dL Hct (35.0-51.0) % MCV (80.0-94.0) fL MCH (27.0-31.0) pg MCHC (33.0-37.0) g/dL RDW (11.5-14.5) % Plt Count (130-400) K/uL MPV (7.2-11.7) fL Neut % (Auto) (50.0-75.0) % Lymph % (Auto) (20.0-40.0) % [place] % (Auto) (0.0-10.0) % Eos % (Auto) (0.0-4.0) % Baso % (Auto) (0.0-2.0) % Neut # (Auto) (1.8-7.0) K/uL Lymph # (Auto) (1.0-4.3) K/uL [place] # (Auto) (0.0-0.8) K/uL Eos # (Auto) (0.0-0.7) K/uL Baso # (Auto) (0.0-0.2) K/uL Neutrophils % (Manual) (50-75) % Lymphocytes % (Manual) (20-40) % Monocytes % (Manual) (0-10) % Eosinophils % (Manual) (0-4) % Basophils % (Manual) (0-2) % Platelet Estimate (NORMAL) Hypochromasia (manual) Poikilocytosis (manual Anisocytosis (manual) Sodium (132-148) mmol/L Potassium (3.6-5.2) mmol/L Chloride (98-107) mmol/L Carbon Dioxide (22-30) mmol/L Anion Gap (10-20) BUN (9-20) mg/dL Creatinine (0.8-1.5) mg/dL Est GFR ( Amer) Est GFR (Non-Af Amer) POC Glucose (mg/dL) 135 H 156 H 162 H (65-110) mg/dL Random Glucose (75-110) mg/dL Calcium (8.6-10.4) mg/dl Phosphorus (2.5-4.5) mg/dL Magnesium (1.6-2.3) mg/dL Total Bilirubin (0.2-1.3) mg/dL AST (17-59) U/L ALT (21-72) U/L Alkaline Phosphatase (38-126) U/L Total Protein (6.3-8.3) g/dL Albumin (3.5-5.0) g/dL Globulin (2.2-3.9) gm/dL Albumin/Globulin Ratio (1.0-2.1) Laboratory Results - last 24 hr 03/21/18 03/21/18 03/22/18 17:29 23:41 04:45 WBC RBC Hgb Hct MCV MCH MCHC RDW Plt Count MPV Neut % (Auto) Lymph % (Auto) [place] % (Auto) Eos % (Auto) Baso % (Auto) Neut # (Auto) Lymph # (Auto) [place] # (Auto) Eos # (Auto) Baso # (Auto) Neutrophils % (Manual) Lymphocytes % (Manual) Monocytes % (Manual) Eosinophils % (Manual) Basophils % (Manual) Platelet Estimate Hypochromasia (manual) Poikilocytosis (manual Anisocytosis (manual) Sodium Potassium Chloride Carbon Dioxide Anion Gap BUN Creatinine Est GFR ( Amer) Est GFR (Non-Af Amer) POC Glucose (mg/dL) 162 H 156 H 135 H Random Glucose Calcium Phosphorus Magnesium Total Bilirubin AST ALT Alkaline Phosphatase Total Protein Albumin Globulin Albumin/Globulin Ratio 03/22/18 03/22/18 03/22/18 06:08 06:08 11:51 WBC 11.3 H RBC 3.21 L Hgb 9.9 L Hct 29.6 L MCV 92.2 MCH 30.8 MCHC 33.4 RDW 16.0 H Plt Count 258 MPV 8.1 Neut % (Auto) 87.0 H Lymph % (Auto) 7.3 L [place] % (Auto) 4.1 Eos % (Auto) 1.2 Baso % (Auto) 0.4 Neut # (Auto) 9.8 H Lymph # (Auto) 0.8 L [place] # (Auto) 0.5 Eos # (Auto) 0.1 Baso # (Auto) 0.0 Neutrophils % (Manual) 85 H Lymphocytes % (Manual) 8 L Monocytes % (Manual) 4 Eosinophils % (Manual) 2 Basophils % (Manual) 1 Platelet Estimate Normal Hypochromasia (manual) Slight Poikilocytosis (manual Slight Anisocytosis (manual) Slight Sodium 151 H Potassium 3.8 Chloride 115 H Carbon Dioxide 26 Anion Gap 14 BUN 43 H Creatinine 2.7 H Est GFR ( Amer) 28 Est GFR (Non-Af Amer) 23 POC Glucose (mg/dL) 179 H Random Glucose 102 Calcium 8.1 L Phosphorus 2.9 Magnesium 2.0 Total Bilirubin 0.4 AST 33 ALT 36 Alkaline Phosphatase 170 H Total Protein 6.1 L Albumin 2.9 L Globulin 3.3 Albumin/Globulin Ratio 0.9 L Critical Care Progress Note - Nutrition Nutrition: Nutrition Category Date Time Status NPO Diet [DIET] Diets 03/14/18 Breakfast Active Attending/Attestation - Attestation I have personally seen and examined this patient.: Yes I have fully participated in the care of the patient.: Yes I have reviewed all pertinent clinical information: Yes Notes (Text): 03/22/18 17:13 Patient seen and examined in the intensive care unit. Patient extubated and in no respiratory distress Continue IV antibiotics Vascular consulted for above-knee amputation
--- NOTE | 2018-03-22 12:28 | CP.PCM.PN ---
Subjective - Date & Time of Evaluation Date of Evaluation: 03/22/18 Time of Evaluation: 12:27 - Subjective Subjective: seen and examined in chair confused, moving all extremities ongoing tube feeds cannot obtain ros Objective - Vital Signs/Intake and Output Vital Signs (last 24 hours): Temp Pulse Resp BP Pulse Ox 97.5 F L 88 15 135/103 H 100 03/22/18 08:00 03/22/18 11:50 03/22/18 11:50 03/22/18 11:51 03/22/18 11:50 Intake and Output: 03/22/18 03/22/18 06:59 18:59 Intake Total 640 225 Output Total 575 Balance 640 -350 - Medications Medications: Current Medications Albuterol/Ipratropium (Duoneb 3 Mg/0.5 Mg (3 Ml) Ud) 3 ml INH RQ6 NEL Last Admin: 03/22/18 08:45 Dose: 3 ml Heparin Sodium (Porcine) (Heparin) 5,000 units SC Q8 NEL Last Admin: 03/22/18 05:27 Dose: 5,000 units Piperacillin Sod/Tazobactam (Sod 2.25 gm/ Sodium Chloride) 100 mls @ 200 mls/hr IVPB Q8H NEL; Protocol Last Admin: 03/22/18 10:11 Dose: 200 mls/hr Daptomycin 400 mg/ Sodium (Chloride) 100 mls @ 100 mls/hr IV MWF NEL; Protocol Stop: 03/26/18 09:01 Last Admin: 03/21/18 09:18 Dose: 100 mls/hr Insulin Human Regular (Novolin R) 0 unit SC Q6 NEL; Protocol Last Admin: 03/22/18 06:00 Dose: Not Given Nystatin (Nystop Topical Powder) 1 applic TOP BID NEL Last Admin: 03/22/18 10:12 Dose: 1 applic Pantoprazole Sodium (Protonix Susp) 40 mg GT DAILY NEL Last Admin: 03/22/18 10:11 Dose: 40 mg Valproate Sodium (Depakene Oral Soln) 250 mg PO BID [facility] Last Admin: 03/22/18 10:11 Dose: 250 mg - Labs Labs: 03/22/18 06:08 03/22/18 06:08 PT 13.4 SECONDS (9.7-12.2) H 03/14/18 15:49 INR 1.2 03/14/18 15:49 APTT 59 SECONDS (21-34) H D 03/16/18 10:48 - Constitutional Appears: Non-toxic, No Acute Distress, Cachectic, Chronically Ill - Head Exam Head Exam: NORMAL INSPECTION, NORMOCEPHALIC - Eye Exam Eye Exam: Normal appearance, PERRL - ENT Exam ENT Exam: Mucous Membranes Dry (ng tube) - Neck Exam Neck Exam: Full ROM, Normal Inspection - Respiratory Exam Respiratory Exam: Decreased Breath Sounds, NORMAL BREATHING PATTERN - Cardiovascular Exam Cardiovascular Exam: REGULAR RHYTHM, RRR - GI/Abdominal Exam GI & Abdominal Exam: Distended, Soft - Extremities Exam Extremities Exam: Normal Inspection - Neurological Exam Neurological Exam: Awake. absent: Alert, Oriented x3 - Skin Skin Exam: Dry, Intact Assessment and Plan (1) JOY (acute kidney injury) Status: Acute (2) Afib Status: Acute (3) Anemia Status: Acute (4) CKD (chronic kidney disease) stage 4, GFR 15-29 ml/min Status: Acute (5) Change in mental status Status: Acute (6) Electrolyte imbalance Status: Acute (7) MRSA (methicillin resistant Staphylococcus aureus) septicemia Status: Acute (8) Metabolic acidosis Status: Acute - Assessment and Plan (Free Text) Assessment: off hd, watch renal function supplement lytes as needed free water w/ tube feeds consider hospice care
--- NOTE | 2018-03-22 15:26 | CP.PCM.PN ---
Subjective - Date & Time of Evaluation Date of Evaluation: 03/22/18 Time of Evaluation: 15:00 - Subjective Subjective: DICTATED Objective - Vital Signs/Intake and Output Vital Signs (last 24 hours): Temp Pulse Resp BP Pulse Ox 97.4 F L 71 16 124/59 L 100 03/22/18 12:00 03/22/18 14:00 03/22/18 14:00 03/22/18 13:53 03/22/18 14:00 Intake and Output: 03/22/18 03/22/18 06:59 18:59 Intake Total 640 360 Output Total 575 Balance 640 -215 - Medications Medications: Current Medications Albuterol/Ipratropium (Duoneb 3 Mg/0.5 Mg (3 Ml) Ud) 3 ml INH RQ6 NEL Last Admin: 03/22/18 08:45 Dose: 3 ml Heparin Sodium (Porcine) (Heparin) 5,000 units SC Q8 NEL Last Admin: 03/22/18 14:18 Dose: 5,000 units Piperacillin Sod/Tazobactam (Sod 2.25 gm/ Sodium Chloride) 100 mls @ 200 mls/hr IVPB Q8H NEL; Protocol Last Admin: 03/22/18 10:11 Dose: 200 mls/hr Daptomycin 400 mg/ Sodium (Chloride) 100 mls @ 100 mls/hr IV MWF NEL; Protocol Stop: 03/26/18 09:01 Last Admin: 03/21/18 09:18 Dose: 100 mls/hr Insulin Human Regular (Novolin R) 0 unit SC Q6 NEL; Protocol Last Admin: 03/22/18 12:44 Dose: 1 units Nystatin (Nystop Topical Powder) 1 applic TOP BID NEL Last Admin: 03/22/18 10:12 Dose: 1 applic Pantoprazole Sodium (Protonix Susp) [address] [facility] Last Admin: 03/22/18 10:11 Dose: 40 mg Valproate Sodium (Depakene Oral Soln) 250 mg PO BID NEL Last Admin: 03/22/18 10:11 Dose: 250 mg - Labs Labs: 03/22/18 06:08 03/22/18 06:08 PT 13.4 SECONDS (9.7-12.2) H 03/14/18 15:49 INR 1.2 03/14/18 15:49 APTT 59 SECONDS (21-34) H D 03/16/18 10:48
--- NOTE | 2018-03-22 21:22 | CP.PCM.PN ---
Subjective - Date & Time of Evaluation Date of Evaluation: 03/22/18 Time of Evaluation: 10:00 - Subjective Subjective: clinically same Objective - Vital Signs/Intake and Output Vital Signs (last 24 hours): Temp Pulse Resp BP Pulse Ox 97.3 F L 69 14 132/45 L 98 03/22/18 20:00 03/22/18 21:00 03/22/18 21:00 03/22/18 20:09 03/22/18 21:00 Intake and Output: 03/22/18 03/23/18 18:59 06:59 Intake Total 890 135 Output Total 1325 Balance -435 135 - Medications Medications: Current Medications Albuterol/Ipratropium (Duoneb 3 Mg/0.5 Mg (3 Ml) Ud) 3 ml INH RQ6 NEL Last Admin: 03/22/18 19:37 Dose: 3 ml Heparin Sodium (Porcine) (Heparin) 5,000 units SC Q8 NEL Last Admin: 03/22/18 14:18 Dose: 5,000 units Piperacillin Sod/Tazobactam (Sod 2.25 gm/ Sodium Chloride) 100 mls @ 200 mls/hr IVPB Q8H NEL; Protocol Last Admin: 03/22/18 17:24 Dose: 200 mls/hr Daptomycin 400 mg/ Sodium (Chloride) 100 mls @ 100 mls/hr IV MWF NEL; Protocol Stop: 03/26/18 09:01 Last Admin: 03/21/18 09:18 Dose: 100 mls/hr Insulin Human Regular (Novolin R) 0 unit SC Q6 NEL; Protocol Last Admin: 03/22/18 18:10 Dose: 1 units Nystatin (Nystop Topical Powder) 1 applic TOP BID NEL Last Admin: 03/22/18 17:24 Dose: 1 applic Pantoprazole Sodium (Protonix Susp) 40 mg GT DAILY NEL Last Admin: 03/22/18 10:11 Dose: 40 mg Valproate Sodium (Depakene Oral Soln) 250 mg PO BID NEL Last Admin: 03/22/18 17:24 Dose: 250 mg - Labs Labs: 03/22/18 06:08 03/22/18 06:08 PT 13.4 SECONDS (9.7-12.2) H 03/14/18 15:49 INR 1.2 03/14/18 15:49 APTT 59 SECONDS (21-34) H D 03/16/18 10:48
[2018-03-23] MEDS: (Novolin R) Insulin Human Regular 100 units/ml vial SC SCH ×4 (00:21→18:03)
[2018-03-23] MEDS: Albuterol-Ipratrop 3 mg / 0.5 (3 ml) UD INH SCH ×4 (01:37→19:40)
--- NOTE | 2018-03-23 04:26 | PN ---
DATE: 03/22/2018 SUBJECTIVE: The patient remains afebrile. PHYSICAL EXAMINATION VITAL SIGNS: Temperature is 97.3, blood pressure is 116/38, pulse is 58, respirations are 20. GENERAL: He remains on oxygen. He is lethargic. HEENT: Head is atraumatic and normocephalic. NECK: Supple. LUNGS: Clear. HEART: S1 and S2, bradycardic. ABDOMEN: Soft, nontender. There is a colostomy present. 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 Right foot is unremarkable. He is on daptomycin and Zosyn which need to be continued. Urine culture now came out back to Pseudomonas aeruginosa and yeast. I am not sure if he has a Taxus catheter or a Mendes catheter at this time, and it seems to be more resistant to Zosyn than the meropenem, and cefepime is supposed to be working better. So instead of Zosyn, we will make it cefepime at this time and continue the Cubicin. WBC is 11.3, hemoglobin 9.9, hematocrit 29.6, platelet count is 258. Sodium is 151, potassium 3.8, chloride 115, CO2 is 26, BUN is 43, creatinine is 2.7 and still elevated, so we will change to a new medicine called Maxipime and keep it for 1 g a day as his renal functions are still poor. We will follow. The patient has gangrene of the foot at this time and came with hyperkalemia and had recent MRSA, renal insufficiency and has altered mental status which is chronic. Teresa Barnett MD
[2018-03-23 06:14] LABS: BASO # 0.1 K/uL (0.0-0.2); BASO % 0.6 % (0.0-2.0); EOS # 0.2 K/uL (0.0-0.7); EOS % 1.6 % (0.0-4.0); HEMOGLOBIN 10.1 g/dL (12.0-18.0); LYMPH % 9.8 % (20.0-40.0); MEAN CELL VOLUME 93.1 fL (80.0-94.0); MEAN CORPUSCULAR HEMOGLOBIN 31.6 pg (27.0-31.0); MEAN CORPUSCULAR HGB CONC 33.9 g/dL (33.0-37.0); MEAN PLATELET VOLUME 7.9 fL (7.2-11.7); MONO # 0.5 K/uL (0.0-0.8); NEUT # 8.1 K/uL (1.8-7.0); PLATELET COUNT 315 K/uL (130-400); RED CELL DISTRIBUTION WIDTH 16.4 % (11.5-14.5); WHITE BLOOD COUNT 9.8 K/uL (4.8-10.8)
[2018-03-23 06:17] LABS: INR 1.1; PROTHROMBIN TIME 12.2 SECONDS (9.7-12.2)
[2018-03-23 06:39] LABS: ALB/GLOB RATIO 0.8 (1.0-2.1); CALCIUM 8.7 mg/dl (8.6-10.4)
[2018-03-23 08:16] LABS: EOSINOPHIL 2 % (0-4); LYMPHOCYTE 11 % (20-40); MONOCYTE 4 % (0-10); NEUTROPHIL 83 % (50-75); PLATELET ESTIMATE NORMAL (NORMAL); TOTAL CELLS COUNTED 100
[2018-03-23 08:17] LABS: ANISOCYTOSIS SLIGHT; HYPOCHROMIC SLIGHT; OVALOCYTES SLIGHT; POIKILOCYTOSIS SLIGHT; TARGET CELLS SLIGHT
[2018-03-23] MEDS: Valproic Acid 250 mg/5 ml UD Cup PO SCH ×2 (09:00→18:03)
[2018-03-23] MEDS: Pantoprazole 40 mg Susp UD GT SCH (10:00)
--- NOTE | 2018-03-23 13:38 | CP.PCM.PN ---
Subjective - Date & Time of Evaluation Date of Evaluation: 03/23/18 Time of Evaluation: 13:35 - Subjective Subjective: not verbal no acute events chart reviewed unable to obtain ROS due to clinical status Objective - Vital Signs/Intake and Output Vital Signs (last 24 hours): Temp Pulse Resp BP Pulse Ox 97.3 F L 68 17 109/64 100 03/23/18 12:00 03/23/18 13:00 03/23/18 13:00 03/23/18 12:55 03/23/18 13:00 Intake and Output: 03/23/18 03/23/18 06:59 18:59 Intake Total 320 300 Output Total 350 Balance -30 300 - Medications Medications: Current Medications Albuterol/Ipratropium (Duoneb 3 Mg/0.5 Mg (3 Ml) Ud) 3 ml INH RQ6 [facility] Last Admin: 03/23/18 13:09 Dose: Not Given Heparin Sodium (Porcine) (Heparin) 5,000 units SC Q8 [facility] Last Admin: 03/22/18 14:18 Dose: 5,000 units Daptomycin 400 mg/ Sodium (Chloride) 100 mls @ 100 mls/hr IV MWF NEL; Protocol Stop: 03/26/18 09:01 Last Admin: 03/23/18 08:51 Dose: 100 mls/hr Cefepime HCl 1 gm/ Dextrose 50 mls @ 100 mls/hr IVPB Q24H NEL; Protocol Last Admin: 03/23/18 00:20 Dose: 100 mls/hr Dextrose (Dextrose 5% In Water 1000 Ml) 1,000 mls @ 75 mls/hr IV .[id number] [facility] Last Admin: 03/23/18 09:16 Dose: 75 mls/hr Insulin Human Regular (Novolin R) 0 unit SC Q6 NEL; Protocol Last Admin: 03/23/18 12:08 Dose: Not Given Nystatin (Nystop Topical Powder) 1 applic TOP BID [facility] Last Admin: 03/23/18 09:00 Dose: 1 applic Pantoprazole Sodium (Protonix Susp) 40 mg GT DAILY [facility] Last Admin: 03/23/18 10:00 Dose: Not Given Valproate Sodium (Depakene Oral Soln) 250 mg PO BID [facility] Last Admin: 03/23/18 09:00 Dose: Not Given - Labs Labs: 03/23/18 06:01 03/23/18 06:01 PT 12.2 SECONDS (9.7-12.2) 03/23/18 06:01 INR 1.1 03/23/18 06:01 APTT 35 SECONDS (21-34) H 03/23/18 06:01 - Constitutional Appears: Non-toxic, Confused, Chronically Ill - ENT Exam ENT Exam: Mucous Membranes Dry - Neck Exam Neck Exam: absent: Lymphadenopathy - Respiratory Exam Respiratory Exam: Decreased Breath Sounds. absent: Respiratory Distress - Cardiovascular Exam Cardiovascular Exam: Irregular Rhythm. absent: Rubs - GI/Abdominal Exam GI & Abdominal Exam: Distended. absent: Guarding - Extremities Exam Extremities Exam: absent: Pedal Edema - Neurological Exam Neurological Exam: absent: Alert, Oriented x3 Assessment and Plan - Assessment and Plan (Free Text) Assessment: ckd hypernatremia dementia feeding disorder arrhythmia increase hypotonic fluid for hypernatremia not a dialysis candidate
--- NOTE | 2018-03-23 15:16 | CP.PCM.PN ---
Subjective - Date & Time of Evaluation Date of Evaluation: 03/23/18 Time of Evaluation: 10:10 - Subjective Subjective: Surgery progress note for Dr. Robles Pt seen and examined at bedside this AM. Pt is awake, but not oriented. Attempted to get consent from the state appointed guardian for CHRISTI but contact officer had to speak to her superior for official OR consent. Will continue to attempt to get consent Objective - Vital Signs/Intake and Output Vital Signs (last 24 hours): Temp Pulse Resp BP Pulse Ox 97.3 F L 68 17 109/64 100 03/23/18 12:00 03/23/18 13:00 03/23/18 13:00 03/23/18 12:55 03/23/18 13:00 Intake and Output: 03/23/18 03/23/18 06:59 18:59 Intake Total 320 300 Output Total 350 Balance -30 300 - Medications Medications: Current Medications Albuterol/Ipratropium (Duoneb 3 Mg/0.5 Mg (3 Ml) Ud) 3 ml INH RQ6 [facility] Last Admin: 03/23/18 13:09 Dose: Not Given Heparin Sodium (Porcine) (Heparin) 5,000 units SC Q8 [facility] Last Admin: 03/22/18 14:18 Dose: 5,000 units Daptomycin 400 mg/ Sodium (Chloride) 100 mls @ 100 mls/hr IV MWF NEL; Protocol Stop: 03/26/18 09:01 Last Admin: 03/23/18 08:51 Dose: 100 mls/hr Cefepime HCl 1 gm/ Dextrose 50 mls @ 100 mls/hr IVPB Q24H NEL; Protocol Last Admin: 03/23/18 00:20 Dose: 100 mls/hr Dextrose (Dextrose 5% In Water 1000 Ml) 1,000 mls @ 75 mls/hr IV .[id number] NEL Last Admin: 03/23/18 09:16 Dose: 75 mls/hr Insulin Human Regular (Novolin R) 0 unit SC Q6 NEL; Protocol Last Admin: 03/23/18 12:08 Dose: Not Given Nystatin (Nystop Topical Powder) 1 applic TOP BID NEL Last Admin: 03/23/18 09:00 Dose: 1 applic Pantoprazole Sodium (Protonix Susp) 40 mg GT DAILY NEL Last Admin: 11/07/18 10:00 Dose: Not Given Valproate Sodium (Depakene Oral Soln) 250 mg PO BID NEL Last Admin: 03/23/18 09:00 Dose: Not Given - Labs Labs: 03/23/18 06:01 03/23/18 06:01 PT 12.2 SECONDS (9.7-12.2) 03/23/18 06:01 INR 1.1 03/23/18 06:01 APTT 35 SECONDS (21-34) H 03/23/18 06:01 - Constitutional Appears: Non-toxic, No Acute Distress, Confused, Chronically Ill - Head Exam Head Exam: ATRAUMATIC, NORMOCEPHALIC - Eye Exam Eye Exam: Normal appearance. absent: Conjunctival injection, Scleral icterus - ENT Exam ENT Exam: Mucous Membranes Moist, Normal Oropharynx - Respiratory Exam Respiratory Exam: NORMAL BREATHING PATTERN. absent: Accessory Muscle Use, Respiratory Distress - Cardiovascular Exam Cardiovascular Exam: RRR - GI/Abdominal Exam GI & Abdominal Exam: Soft. 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 Robles, who agreed with above Candiec Oliveira, PGY2
--- NOTE | 2018-03-23 16:23 | CP.CCUPN ---
<Tony Carrillo - Last Filed: 03/23/18 16:20> CCU Subjective - Physician Review Events Since Last Encounter (Free Text): 03/23/18 16:21 No acute events Subjective (Free Text): 03/23/18 16:20 PGY1 Critical Care Progress Note for Dr. Stern Patient was seen at bedside this morning. No acute events overnight. Patient minimally responsive. Patient extubated 03/20. Feeding through NG tube. ROS could not be obtained due to clinical condition. Patient currently pending AKA with Dr. Ceron; pending consent from POA, as patient is nonverbal. Critical Care Time Spent (in minutes): 35 CCU Objective - Vital Signs / Intake & Output Vital Signs (Last 4 hours): Vital Signs Temp Pulse Resp BP Pulse Ox 03/23/18 16:00 97.4 F L 68 13 100 03/23/18 15:54 67 16 114/55 L 98 03/23/18 15:00 70 16 100 03/23/18 14:00 71 14 99 03/23/18 13:52 70 15 125/71 100 03/23/18 13:00 68 17 100 03/23/18 12:55 75 15 109/64 100 Intake and Output (Last 8hrs): Intake & Output 03/23/18 03/23/18 03/23/18 06:59 14:59 22:59 Intake Total 140 375 150 Output Total 350 Balance -210 375 150 Weight 116 lb Intake: Intake, IV Amount 50 375 150 Left Upper arm 50 Right Wrist 375 150 Tube Feeding 90 Output: Stool 350 - Physical Exam Head: Positive for: Atraumatic, Normocephalic Pupils: Positive for: PERRL Extroacular Muscles: Positive for: EOMI Mouth: Positive for: Dry Neck: Positive for: Normal Range of Motion. Negative for: JVD Respiratory/Chest: Positive for: Clear to Auscultation. Negative for: Respiratory Distress, Decreased Breath Sounds Cardiovascular: Positive for: Regular Rate and Rhythm, Normal S1, S2 Abdomen: Positive for: Ostomy Tubes (iliostomy bag clean and dry). Negative for: Tenderness, Distention Upper Extremity: Positive for: Normal Inspection, Capillary Refill < 2s. Negative for: Edema Lower Extremity: Negative for: Normal Inspection, Edema, CALF TENDERNESS, NORMAL PULSES (Left lower extremity is cool to touch compared to the right and black in color. No pulses palpable on left lower extremity for pedal and/or popliteal pulses. ) Skin: Positive for: Other (Left Foot: Cold, dry, color is black throughout left foot plantar and dorsal/plantar toes. ) Psychiatric: Positive for: Alert. Negative for: Oriented x 3 - Medications Active Medications: Active Medications Generic Name Dose Route Start Last Admin Trade Name Freq PRN Reason Stop Dose Admin Albuterol/Ipratropium 3 ml 03/14/18 20:00 03/23/18 13:09 Duoneb 3 Mg/0.5 Mg (3 Ml) Ud INH Not Given RQ6 NEL Heparin Sodium (Porcine) 5,000 units 03/19/18 14:00 03/22/18 14:18 Heparin SC 5,000 units Q8 NEL Administration Daptomycin 400 mg/ Sodium 100 mls @ 100 mls/hr 03/21/18 09:00 03/23/18 08:51 Chloride IV 03/26/18 09:01 100 mls/hr MWF NEL Administration Protocol Cefepime HCl 1 gm/ Dextrose 50 mls @ 100 mls/hr 03/22/18 23:00 03/23/18 00:20 IVPB 100 mls/hr Q24H NEL Administration Protocol Dextrose 1,000 mls @ 75 mls/hr 03/23/18 09:15 03/23/18 09:16 Dextrose 5% In Water 1000 Ml IV 75 mls/hr .[id number] NEL Administration Insulin Human Regular 0 unit 03/19/18 12:00 03/23/18 12:08 Novolin R SC Not Given Q6 [facility] Protocol Nystatin 1 applic 03/18/18 11:00 03/23/18 09:00 Nystop Topical Powder TOP 1 applic BID NEL Administration Pantoprazole Sodium 40 mg 03/19/18 10:00 03/23/18 10:00 Protonix Susp GT Not Given DAILY NEL Valproate Sodium 250 mg 03/17/18 10:30 03/23/18 09:00 Depakene Oral Soln PO Not Given BID NEL - Patient Studies Lab Studies: Microbiology Studies 03/18/18 10:44 Blood Culture - Final Blood-Venous NO GROWTH AFTER 5 DAYS Gram Stain - Final TEST NOT PERFORMED 03/18/18 09:15 Blood Culture - Final Blood-Venous NO GROWTH AFTER 5 DAYS Gram Stain - Final TEST NOT PERFORMED Lab Studies 03/23/18 03/23/18 03/23/18 Range/Units 11:44 06:10 06:01 WBC (4.8-10.8) K/uL RBC (4.40-5.90) Mil/uL Hgb (12.0-18.0) g/dL Hct (35.0-51.0) % MCV (80.0-94.0) fL MCH (27.0-31.0) pg MCHC (33.0-37.0) g/dL RDW (11.5-14.5) % Plt Count (130-400) K/uL MPV (7.2-11.7) fL Neut % (Auto) (50.0-75.0) % Lymph % (Auto) (20.0-40.0) % [place] % (Auto) (0.0-10.0) % Eos % (Auto) (0.0-4.0) % Baso % (Auto) (0.0-2.0) % Neut # (Auto) (1.8-7.0) K/uL Lymph # (Auto) (1.0-4.3) K/uL [place] # (Auto) (0.0-0.8) K/uL Eos # (Auto) (0.0-0.7) K/uL Baso # (Auto) (0.0-0.2) K/uL Neutrophils % (Manual) (50-75) % Lymphocytes % (Manual) (20-40) % Monocytes % (Manual) (0-10) % Eosinophils % (Manual) (0-4) % Platelet Estimate (NORMAL) Hypochromasia (manual) Poikilocytosis (manual Anisocytosis (manual) Target Cells Ovalocytes PT 12.2 (9.7-12.2) SECONDS INR 1.1 APTT 35 H (21-34) SECONDS Sodium (132-148) mmol/L Potassium (3.6-5.2) mmol/L Chloride (98-107) mmol/L Carbon Dioxide (22-30) mmol/L Anion Gap (10-20) BUN (9-20) mg/dL Creatinine (0.8-1.5) mg/dL Est GFR ( Amer) Est GFR (Non-Af Amer) POC Glucose (mg/dL) 131 H (65-110) mg/dL Random Glucose (75-110) mg/dL Calcium (8.6-10.4) mg/dl Phosphorus (2.5-4.5) mg/dL Magnesium (1.6-2.3) mg/dL Total Bilirubin (0.2-1.3) mg/dL AST (17-59) U/L ALT (21-72) U/L Alkaline Phosphatase (38-126) U/L Total Protein (6.3-8.3) g/dL Albumin (3.5-5.0) g/dL Globulin (2.2-3.9) gm/dL Albumin/Globulin Ratio (1.0-2.1) Blood Type O POSITIVE Antibody Screen Negative 03/23/18 03/23/18 03/23/18 Range/Units 06:01 06:01 05:09 WBC 9.8 (4.8-10.8) K/uL RBC 3.20 L (4.40-5.90) Mil/uL Hgb 10.1 L (12.0-18.0) g/dL Hct 29.8 L (35.0-51.0) % MCV 93.1 (80.0-94.0) fL MCH 31.6 H (27.0-31.0) pg MCHC 33.9 (33.0-37.0) g/dL RDW 16.4 H (11.5-14.5) % Plt Count 315 (130-400) K/uL MPV 7.9 (7.2-11.7) fL Neut % (Auto) 83.0 H (50.0-75.0) % Lymph % (Auto) 9.8 L (20.0-40.0) % [place] % (Auto) 5.0 (0.0-10.0) % Eos % (Auto) 1.6 (0.0-4.0) % Baso % (Auto) 0.6 (0.0-2.0) % Neut # (Auto) 8.1 H (1.8-7.0) K/uL Lymph # (Auto) 1.0 (1.0-4.3) K/uL [place] # (Auto) 0.5 (0.0-0.8) K/uL Eos # (Auto) 0.2 (0.0-0.7) K/uL Baso # (Auto) 0.1 (0.0-0.2) K/uL Neutrophils % (Manual) 83 H (50-75) % Lymphocytes % (Manual) 11 L (20-40) % Monocytes % (Manual) 4 (0-10) % Eosinophils % (Manual) 2 (0-4) % Platelet Estimate Normal (NORMAL) Hypochromasia (manual) Slight Poikilocytosis (manual Slight Anisocytosis (manual) Slight Target Cells Slight Ovalocytes Slight PT (9.7-12.2) SECONDS INR APTT (21-34) SECONDS Sodium 154 H (132-148) mmol/L Potassium 4.1 (3.6-5.2) mmol/L Chloride 117 H (98-107) mmol/L Carbon Dioxide 27 (22-30) mmol/L Anion Gap 13 (10-20) BUN 50 H (9-20) mg/dL Creatinine 2.9 H (0.8-1.5) mg/dL Est GFR ( Amer) 26 Est GFR (Non-Af Amer) 21 POC Glucose (mg/dL) 153 H (65-110) mg/dL Random Glucose 134 H (75-110) mg/dL Calcium 8.7 (8.6-10.4) mg/dl Phosphorus 2.9 (2.5-4.5) mg/dL Magnesium 2.2 (1.6-2.3) mg/dL Total Bilirubin 0.4 (0.2-1.3) mg/dL AST 47 (17-59) U/L ALT 42 (21-72) U/L Alkaline Phosphatase 156 H (38-126) U/L Total Protein 6.7 (6.3-8.3) g/dL Albumin 3.0 L (3.5-5.0) g/dL Globulin 3.8 (2.2-3.9) gm/dL Albumin/Globulin Ratio 0.8 L (1.0-2.1) Blood Type Antibody Screen 03/23/18 03/22/18 Range/Units 00:00 17:59 WBC (4.8-10.8) K/uL RBC (4.40-5.90) Mil/uL Hgb (12.0-18.0) g/dL Hct (35.0-51.0) % MCV (80.0-94.0) fL MCH (27.0-31.0) pg MCHC (33.0-37.0) g/dL RDW (11.5-14.5) % Plt Count (130-400) K/uL MPV (7.2-11.7) fL Neut % (Auto) (50.0-75.0) % Lymph % (Auto) (20.0-40.0) % [place] % (Auto) (0.0-10.0) % Eos % (Auto) (0.0-4.0) % Baso % (Auto) (0.0-2.0) % Neut # (Auto) (1.8-7.0) K/uL Lymph # (Auto) (1.0-4.3) K/uL [place] # (Auto) (0.0-0.8) K/uL Eos # (Auto) (0.0-0.7) K/uL Baso # (Auto) (0.0-0.2) K/uL Neutrophils % (Manual) (50-75) % Lymphocytes % (Manual) (20-40) % Monocytes % (Manual) (0-10) % Eosinophils % (Manual) (0-4) % Platelet Estimate (NORMAL) Hypochromasia (manual) Poikilocytosis (manual Anisocytosis (manual) Target Cells Ovalocytes PT (9.7-12.2) SECONDS INR APTT (21-34) SECONDS Sodium (132-148) mmol/L Potassium (3.6-5.2) mmol/L Chloride (98-107) mmol/L Carbon Dioxide (22-30) mmol/L Anion Gap (10-20) BUN (9-20) mg/dL Creatinine (0.8-1.5) mg/dL Est GFR ( Amer) Est GFR (Non-Af Amer) POC Glucose (mg/dL) 139 H 170 H (65-110) mg/dL Random Glucose (75-110) mg/dL Calcium (8.6-10.4) mg/dl Phosphorus (2.5-4.5) mg/dL Magnesium (1.6-2.3) mg/dL Total Bilirubin (0.2-1.3) mg/dL AST (17-59) U/L ALT (21-72) U/L Alkaline Phosphatase (38-126) U/L Total Protein (6.3-8.3) g/dL Albumin (3.5-5.0) g/dL Globulin (2.2-3.9) gm/dL Albumin/Globulin Ratio (1.0-2.1) Blood Type Antibody Screen Laboratory Results - last 24 hr 03/22/18 03/23/18 03/23/18 17:59 00:00 05:09 WBC RBC Hgb Hct MCV MCH MCHC RDW Plt Count MPV Neut % (Auto) Lymph % (Auto) [place] % (Auto) Eos % (Auto) Baso % (Auto) Neut # (Auto) Lymph # (Auto) [place] # (Auto) Eos # (Auto) Baso # (Auto) Neutrophils % (Manual) Lymphocytes % (Manual) Monocytes % (Manual) Eosinophils % (Manual) Platelet Estimate Hypochromasia (manual) Poikilocytosis (manual Anisocytosis (manual) Target Cells Ovalocytes PT INR APTT Sodium Potassium Chloride Carbon Dioxide Anion Gap BUN Creatinine Est GFR ( Amer) Est GFR (Non-Af Amer) POC Glucose (mg/dL) 170 H 139 H 153 H Random Glucose Calcium Phosphorus Magnesium Total Bilirubin AST ALT Alkaline Phosphatase Total Protein Albumin Globulin Albumin/Globulin Ratio Blood Type Antibody Screen 03/23/18 03/23/18 03/23/18 06:01 06:01 06:01 WBC 9.8 RBC 3.20 L Hgb 10.1 L Hct 29.8 L MCV 93.1 MCH 31.6 H MCHC 33.9 RDW 16.4 H Plt Count 315 MPV 7.9 Neut % (Auto) 83.0 H Lymph % (Auto) 9.8 L [place] % (Auto) 5.0 Eos % (Auto) 1.6 Baso % (Auto) 0.6 Neut # (Auto) 8.1 H Lymph # (Auto) 1.0 [place] # (Auto) 0.5 Eos # (Auto) 0.2 Baso # (Auto) 0.1 Neutrophils % (Manual) 83 H Lymphocytes % (Manual) 11 L Monocytes % (Manual) 4 Eosinophils % (Manual) 2 Platelet Estimate Normal Hypochromasia (manual) Slight Poikilocytosis (manual Slight Anisocytosis (manual) Slight Target Cells Slight Ovalocytes Slight PT 12.2 INR 1.1 APTT 35 H Sodium 154 H Potassium 4.1 Chloride 117 H Carbon Dioxide 27 Anion Gap 13 BUN 50 H Creatinine 2.9 H Est GFR ( Amer) 26 Est GFR (Non-Af Amer) 21 POC Glucose (mg/dL) Random Glucose 134 H Calcium 8.7 Phosphorus 2.9 Magnesium 2.2 Total Bilirubin 0.4 AST 47 ALT 42 Alkaline Phosphatase 156 H Total Protein 6.7 Albumin 3.0 L Globulin 3.8 Albumin/Globulin Ratio 0.8 L Blood Type Antibody Screen 03/23/18 03/23/18 06:10 11:44 WBC RBC Hgb Hct MCV MCH MCHC RDW Plt Count MPV Neut % (Auto) Lymph % (Auto) [place] % (Auto) Eos % (Auto) Baso % (Auto) Neut # (Auto) Lymph # (Auto) [place] # (Auto) Eos # (Auto) Baso # (Auto) Neutrophils % (Manual) Lymphocytes % (Manual) Monocytes % (Manual) Eosinophils % (Manual) Platelet Estimate Hypochromasia (manual) Poikilocytosis (manual Anisocytosis (manual) Target Cells Ovalocytes PT INR APTT Sodium Potassium Chloride Carbon Dioxide Anion Gap BUN Creatinine Est GFR ( Amer) Est GFR (Non-Af Amer) POC Glucose (mg/dL) 131 H Random Glucose Calcium Phosphorus Magnesium Total Bilirubin AST ALT Alkaline Phosphatase Total Protein Albumin Globulin Albumin/Globulin Ratio Blood Type O POSITIVE Antibody Screen Negative Fingerstick Blood Sugar Results: 153 Review of Systems - Review of Systems Systems not reviewed;Unavailable: Acuity of Condition Critical Care Progress Note - Nutrition Nutrition: Nutrition Category Date Time Status NPO Diet [DIET] Diets 03/22/18 Breakfast Active Assessment/Plan - Assessment and Plan (Free Text) Assessment: This is a 72-year-old male with PMH obtained from previous records which include, but is not limited to: Anemia, Dementia, Atrial Fibrillation, CKD stage 4, CHF, Diabetes Mellitus, who was brought to the ED from [facility] for altered mental status. Full history could not be obtained at the time of the exam due to patient being minimally responsive. While in the ED: CODE SEPSIS was called 2/2 elevated lactic acid. Vascular Surgery was consulted (Dr. Ceron.) Patient was found to be hyperkalemic with positive EKG changes and was treated in ED. ICU team consulted for need for emergent dialysis. Please Note, ROS could not be obtained due to clinical condition. Patient underwent emergent dialysis via left femoral shiley. Since 03/15, shiley removed. Permacath placed by Dr. Ceron. Patient extubated as of . Patient is currently DNR. Hospice being decided. Patient is pending AKA with Dr. Ceron, however this is pending obtaining consent from POA. Renal: Stage 4 CKD Hyperkalemia, resolved - Hypokalemia, resolved: K+=4.1 - Replete as needed - Hypernatremia Bf=109 - Start Free water - Emergent dialysis on 03/14 Metabolic acidosis likely secondary to renal insufficiency - CBC, CMP, Mg, Phos Acute Renal Failure - Nephrology consulted (Dr. Jean,) recommendations appreciated * Oliguric * Monitor I&O * Increased metabolic acidosis as well * Made DNR * Prognosis poor Anemia of chronic disease - Transfused 1 PRBCs - Repeat H/H ID: Sepsis likely secondary to UTI vs gangrenous limb 2/2 Critical Limb Ischemia - Leukocytosis resolved; WBC=9.8 - Patient was afebrile today - ID Consulted (Dr. Barnett); recommendations appreciated * Continue current ABXs (Zosyn) - General Surgery consulted regarding left lower extremity; Dr. Ceron; Recommendations appreciated * Plan is for AKA tomorrow Neuro: - Patient is able to be aroused but minimally responsive on exam - Monitor neuro checks CV: No acute issues - Monitor Critical Limb Ischemia (left) - Heparin 25,000 Units @12units/kg/hr - Surgery consulted (Dr. Ceron) * Patient s/p embolectomy 03/15 * Permacath placed on right subclavian 03/15 Pulm: - Patient intubated as of 03/15 - Extubated 03/20 - Monitor GI/: - Colostomy bag on right in tact - NPO except meds - Tube Feedings with Glucerna - Monitor I&O - Protonix 40mg IVP daily Patient seen and case discussed with Dr. Jarerd Carrillo PGY1 <Elder Stern - Last Filed: 03/23/18 17:07> CCU Objective - Vital Signs / Intake & Output Vital Signs (Last 4 hours): Vital Signs Temp Pulse Resp BP Pulse Ox 03/23/18 16:00 97.4 F L 68 13 100 03/23/18 15:54 67 16 114/55 L 98 03/23/18 15:00 70 16 100 03/23/18 14:00 71 14 99 03/23/18 13:52 70 15 125/71 100 03/23/18 13:00 68 17 100 Intake and Output (Last 8hrs): Intake & Output 03/23/18 03/23/18 03/23/18 06:59 14:59 22:59 Intake Total 140 375 150 Output Total 350 Balance -210 375 150 Weight 116 lb Intake: Intake, IV Amount 50 375 150 Left Upper arm 50 Right Wrist 375 150 Tube Feeding 90 Output: Stool 350 - Medications Active Medications: Active Medications Generic Name Dose Route Start Last Admin Trade Name Freq PRN Reason Stop Dose Admin Albuterol/Ipratropium 3 ml 03/14/18 20:00 03/23/18 13:09 Duoneb 3 Mg/0.5 Mg (3 Ml) Ud INH Not Given RQ6 NEL Heparin Sodium (Porcine) 5,000 units 03/19/18 14:00 03/22/18 14:18 Heparin SC 5,000 units Q8 NEL Administration Daptomycin 400 mg/ Sodium 100 mls @ 100 mls/hr 03/21/18 09:00 03/23/18 08:51 Chloride IV 03/26/18 09:01 100 mls/hr MWF NEL Administration Protocol Cefepime HCl 1 gm/ Dextrose 50 mls @ 100 mls/hr 03/22/18 23:00 03/23/18 00:20 IVPB 100 mls/hr Q24H NEL Administration Protocol Dextrose 1,000 mls @ 75 mls/hr 03/23/18 09:15 03/23/18 09:16 Dextrose 5% In Water 1000 Ml IV 75 mls/hr .[id number] NEL Administration Insulin Human Regular 0 unit 03/19/18 12:00 03/23/18 12:08 Novolin R SC Not Given Q6 NEL Protocol Nystatin 1 applic 03/18/18 11:00 03/23/18 09:00 Nystop Topical Powder TOP 1 applic BID NEL Administration Pantoprazole Sodium 40 mg 03/19/18 10:00 03/23/18 10:00 Protonix Susp GT Not Given DAILY [facility] Valproate Sodium 250 mg 03/17/18 10:30 03/23/18 09:00 Depakene Oral Soln PO Not Given BID NEL - Patient Studies Lab Studies: Microbiology Studies 03/18/18 10:44 Blood Culture - Final Blood-Venous NO GROWTH AFTER 5 DAYS Gram Stain - Final TEST NOT PERFORMED 03/18/18 09:15 Blood Culture - Final Blood-Venous NO GROWTH AFTER 5 DAYS Gram Stain - Final TEST NOT PERFORMED Lab Studies 03/23/18 03/23/18 03/23/18 Range/Units 11:44 06:10 06:01 WBC (4.8-10.8) K/uL RBC (4.40-5.90) Mil/uL Hgb (12.0-18.0) g/dL Hct (35.0-51.0) % MCV (80.0-94.0) fL MCH (27.0-31.0) pg MCHC (33.0-37.0) g/dL RDW (11.5-14.5) % Plt Count (130-400) K/uL MPV (7.2-11.7) fL Neut % (Auto) (50.0-75.0) % Lymph % (Auto) (20.0-40.0) % [place] % (Auto) (0.0-10.0) % Eos % (Auto) (0.0-4.0) % Baso % (Auto) (0.0-2.0) % Neut # (Auto) (1.8-7.0) K/uL Lymph # (Auto) (1.0-4.3) K/uL [place] # (Auto) (0.0-0.8) K/uL Eos # (Auto) (0.0-0.7) K/uL Baso # (Auto) (0.0-0.2) K/uL Neutrophils % (Manual) (50-75) % Lymphocytes % (Manual) (20-40) % Monocytes % (Manual) (0-10) % Eosinophils % (Manual) (0-4) % Platelet Estimate (NORMAL) Hypochromasia (manual) Poikilocytosis (manual Anisocytosis (manual) Target Cells Ovalocytes PT 12.2 (9.7-12.2) SECONDS INR 1.1 APTT 35 H (21-34) SECONDS Sodium (132-148) mmol/L Potassium (3.6-5.2) mmol/L Chloride (98-107) mmol/L Carbon Dioxide (22-30) mmol/L Anion Gap (10-20) BUN (9-20) mg/dL Creatinine (0.8-1.5) mg/dL Est GFR ( Amer) Est GFR (Non-Af Amer) POC Glucose (mg/dL) 131 H (65-110) mg/dL Random Glucose (75-110) mg/dL Calcium (8.6-10.4) mg/dl Phosphorus (2.5-4.5) mg/dL Magnesium (1.6-2.3) mg/dL Total Bilirubin (0.2-1.3) mg/dL AST (17-59) U/L ALT (21-72) U/L Alkaline Phosphatase (38-126) U/L Total Protein (6.3-8.3) g/dL Albumin (3.5-5.0) g/dL Globulin (2.2-3.9) gm/dL Albumin/Globulin Ratio (1.0-2.1) Blood Type O POSITIVE Antibody Screen Negative 03/23/18 03/23/18 03/23/18 Range/Units 06:01 06:01 05:09 WBC 9.8 (4.8-10.8) K/uL RBC 3.20 L (4.40-5.90) Mil/uL Hgb 10.1 L (12.0-18.0) g/dL Hct 29.8 L (35.0-51.0) % MCV 93.1 (80.0-94.0) fL MCH 31.6 H (27.0-31.0) pg MCHC 33.9 (33.0-37.0) g/dL RDW 16.4 H (11.5-14.5) % Plt Count 315 (130-400) K/uL MPV 7.9 (7.2-11.7) fL Neut % (Auto) 83.0 H (50.0-75.0) % Lymph % (Auto) 9.8 L (20.0-40.0) % [place] % (Auto) 5.0 (0.0-10.0) % Eos % (Auto) 1.6 (0.0-4.0) % Baso % (Auto) 0.6 (0.0-2.0) % Neut # (Auto) 8.1 H (1.8-7.0) K/uL Lymph # (Auto) 1.0 (1.0-4.3) K/uL [place] # (Auto) 0.5 (0.0-0.8) K/uL Eos # (Auto) 0.2 (0.0-0.7) K/uL Baso # (Auto) 0.1 (0.0-0.2) K/uL Neutrophils % (Manual) 83 H (50-75) % Lymphocytes % (Manual) 11 L (20-40) % Monocytes % (Manual) 4 (0-10) % Eosinophils % (Manual) 2 (0-4) % Platelet Estimate Normal (NORMAL) Hypochromasia (manual) Slight Poikilocytosis (manual Slight Anisocytosis (manual) Slight Target Cells Slight Ovalocytes Slight PT (9.7-12.2) SECONDS INR APTT (21-34) SECONDS Sodium 154 H (132-148) mmol/L Potassium 4.1 (3.6-5.2) mmol/L Chloride 117 H (98-107) mmol/L Carbon Dioxide 27 (22-30) mmol/L Anion Gap 13 (10-20) BUN 50 H (9-20) mg/dL Creatinine 2.9 H (0.8-1.5) mg/dL Est GFR ( Amer) 26 Est GFR (Non-Af Amer) 21 POC Glucose (mg/dL) 153 H (65-110) mg/dL Random Glucose 134 H (75-110) mg/dL Calcium 8.7 (8.6-10.4) mg/dl Phosphorus 2.9 (2.5-4.5) mg/dL Magnesium 2.2 (1.6-2.3) mg/dL Total Bilirubin 0.4 (0.2-1.3) mg/dL AST 47 (17-59) U/L ALT 42 (21-72) U/L Alkaline Phosphatase 156 H (38-126) U/L Total Protein 6.7 (6.3-8.3) g/dL Albumin 3.0 L (3.5-5.0) g/dL Globulin 3.8 (2.2-3.9) gm/dL Albumin/Globulin Ratio 0.8 L (1.0-2.1) Blood Type Antibody Screen 03/23/18 03/22/18 Range/Units 00:00 17:59 WBC (4.8-10.8) K/uL RBC (4.40-5.90) Mil/uL Hgb (12.0-18.0) g/dL Hct (35.0-51.0) % MCV (80.0-94.0) fL MCH (27.0-31.0) pg MCHC (33.0-37.0) g/dL RDW (11.5-14.5) % Plt Count (130-400) K/uL MPV (7.2-11.7) fL Neut % (Auto) (50.0-75.0) % Lymph % (Auto) (20.0-40.0) % [place] % (Auto) (0.0-10.0) % Eos % (Auto) (0.0-4.0) % Baso % (Auto) (0.0-2.0) % Neut # (Auto) (1.8-7.0) K/uL Lymph # (Auto) (1.0-4.3) K/uL [place] # (Auto) (0.0-0.8) K/uL Eos # (Auto) (0.0-0.7) K/uL Baso # (Auto) (0.0-0.2) K/uL Neutrophils % (Manual) (50-75) % Lymphocytes % (Manual) (20-40) % Monocytes % (Manual) (0-10) % Eosinophils % (Manual) (0-4) % Platelet Estimate (NORMAL) Hypochromasia (manual) Poikilocytosis (manual Anisocytosis (manual) Target Cells Ovalocytes PT (9.7-12.2) SECONDS INR APTT (21-34) SECONDS Sodium (132-148) mmol/L Potassium (3.6-5.2) mmol/L Chloride (98-107) mmol/L Carbon Dioxide (22-30) mmol/L Anion Gap (10-20) BUN (9-20) mg/dL Creatinine (0.8-1.5) mg/dL Est GFR ( Amer) Est GFR (Non-Af Amer) POC Glucose (mg/dL) 139 H 170 H (65-110) mg/dL Random Glucose (75-110) mg/dL Calcium (8.6-10.4) mg/dl Phosphorus (2.5-4.5) mg/dL Magnesium (1.6-2.3) mg/dL Total Bilirubin (0.2-1.3) mg/dL AST (17-59) U/L ALT (21-72) U/L Alkaline Phosphatase (38-126) U/L Total Protein (6.3-8.3) g/dL Albumin (3.5-5.0) g/dL Globulin (2.2-3.9) gm/dL Albumin/Globulin Ratio (1.0-2.1) Blood Type Antibody Screen Laboratory Results - last 24 hr 03/22/18 03/23/18 03/23/18 17:59 00:00 05:09 WBC RBC Hgb Hct MCV MCH MCHC RDW Plt Count MPV Neut % (Auto) Lymph % (Auto) [place] % (Auto) Eos % (Auto) Baso % (Auto) Neut # (Auto) Lymph # (Auto) [place] # (Auto) Eos # (Auto) Baso # (Auto) Neutrophils % (Manual) Lymphocytes % (Manual) Monocytes % (Manual) Eosinophils % (Manual) Platelet Estimate Hypochromasia (manual) Poikilocytosis (manual Anisocytosis (manual) Target Cells Ovalocytes PT INR APTT Sodium Potassium Chloride Carbon Dioxide Anion Gap BUN Creatinine Est GFR ( Amer) Est GFR (Non-Af Amer) POC Glucose (mg/dL) 170 H 139 H 153 H Random Glucose Calcium Phosphorus Magnesium Total Bilirubin AST ALT Alkaline Phosphatase Total Protein Albumin Globulin Albumin/Globulin Ratio Blood Type Antibody Screen 03/23/18 03/23/18 03/23/18 06:01 06:01 06:01 WBC 9.8 RBC 3.20 L Hgb 10.1 L Hct 29.8 L MCV 93.1 MCH 31.6 H MCHC 33.9 RDW 16.4 H Plt Count 315 MPV 7.9 Neut % (Auto) 83.0 H Lymph % (Auto) 9.8 L [place] % (Auto) 5.0 Eos % (Auto) 1.6 Baso % (Auto) 0.6 Neut # (Auto) 8.1 H Lymph # (Auto) 1.0 [place] # (Auto) 0.5 Eos # (Auto) 0.2 Baso # (Auto) 0.1 Neutrophils % (Manual) 83 H Lymphocytes % (Manual) 11 L Monocytes % (Manual) 4 Eosinophils % (Manual) 2 Platelet Estimate Normal Hypochromasia (manual) Slight Poikilocytosis (manual Slight Anisocytosis (manual) Slight Target Cells Slight Ovalocytes Slight PT 12.2 INR 1.1 APTT 35 H Sodium 154 H Potassium 4.1 Chloride 117 H Carbon Dioxide 27 Anion Gap 13 BUN 50 H Creatinine 2.9 H Est GFR ( Amer) 26 Est GFR (Non-Af Amer) 21 POC Glucose (mg/dL) Random Glucose 134 H Calcium 8.7 Phosphorus 2.9 Magnesium 2.2 Total Bilirubin 0.4 AST 47 ALT 42 Alkaline Phosphatase 156 H Total Protein 6.7 Albumin 3.0 L Globulin 3.8 Albumin/Globulin Ratio 0.8 L Blood Type Antibody Screen 03/23/18 03/23/18 06:10 11:44 WBC RBC Hgb Hct MCV MCH MCHC RDW Plt Count MPV Neut % (Auto) Lymph % (Auto) [place] % (Auto) Eos % (Auto) Baso % (Auto) Neut # (Auto) Lymph # (Auto) [place] # (Auto) Eos # (Auto) Baso # (Auto) Neutrophils % (Manual) Lymphocytes % (Manual) Monocytes % (Manual) Eosinophils % (Manual) Platelet Estimate Hypochromasia (manual) Poikilocytosis (manual Anisocytosis (manual) Target Cells Ovalocytes PT INR APTT Sodium Potassium Chloride Carbon Dioxide Anion Gap BUN Creatinine Est GFR ( Amer) Est GFR (Non-Af Amer) POC Glucose (mg/dL) 131 H Random Glucose Calcium Phosphorus Magnesium Total Bilirubin AST ALT Alkaline Phosphatase Total Protein Albumin Globulin Albumin/Globulin Ratio Blood Type O POSITIVE Antibody Screen Negative Critical Care Progress Note - Nutrition Nutrition: Nutrition Category Date Time Status NPO Diet [DIET] Diets 03/22/18 Breakfast Active Attending/Attestation - Attestation I have personally seen and examined this patient.: Yes I have fully participated in the care of the patient.: Yes I have reviewed all pertinent clinical information: Yes Notes (Text): 11/07/18 16:58 patient seen and examined in the intensive care unit. amputation was cancelled As unable to obtain consent Continue present treatment for now
--- NOTE | 2018-03-23 16:59 | CP.PCM.PN ---
Subjective - Date & Time of Evaluation Date of Evaluation: 03/23/18 Time of Evaluation: 10:15 - Subjective Subjective: clinically same Objective - Vital Signs/Intake and Output Vital Signs (last 24 hours): Temp Pulse Resp BP Pulse Ox 97.4 F L 68 13 114/55 L 100 03/23/18 16:00 03/23/18 16:00 03/23/18 16:00 03/23/18 15:54 03/23/18 16:00 Intake and Output: 03/23/18 03/23/18 06:59 18:59 Intake Total 320 525 Output Total 350 Balance -30 525 - Medications Medications: Current Medications Albuterol/Ipratropium (Duoneb 3 Mg/0.5 Mg (3 Ml) Ud) 3 ml INH RQ6 [facility] Last Admin: 03/23/18 13:09 Dose: Not Given Heparin Sodium (Porcine) (Heparin) 5,000 units SC Q8 [facility] Last Admin: 03/22/18 14:18 Dose: 5,000 units Daptomycin 400 mg/ Sodium (Chloride) 100 mls @ 100 mls/hr IV MWF [facility]; Protocol Stop: 03/26/18 09:01 Last Admin: 03/23/18 08:51 Dose: 100 mls/hr Cefepime HCl 1 gm/ Dextrose 50 mls @ 100 mls/hr IVPB Q24H [facility]; Protocol Last Admin: 03/23/18 00:20 Dose: 100 mls/hr Dextrose (Dextrose 5% In Water 1000 Ml) 1,000 mls @ 75 mls/hr IV .[id number] [facility] Last Admin: 03/23/18 09:16 Dose: 75 mls/hr Insulin Human Regular (Novolin R) 0 unit SC Q6 [facility]; Protocol Last Admin: 03/23/18 12:08 Dose: Not Given Nystatin (Nystop Topical Powder) 1 applic TOP BID [facility] Last Admin: 03/23/18 09:00 Dose: 1 applic Pantoprazole Sodium (Protonix Susp) 40 mg GT DAILY [facility] Last Admin: 03/23/18 10:00 Dose: Not Given Valproate Sodium (Depakene Oral Soln) 250 mg PO BID [facility] Last Admin: 03/23/18 09:00 Dose: Not Given - Labs Labs: 03/23/18 06:01 03/23/18 06:01 PT 12.2 SECONDS (9.7-12.2) 03/23/18 06:01 INR 1.1 03/23/18 06:01 APTT 35 SECONDS (21-34) H 03/23/18 06:01 - Constitutional Appears: Well - Head Exam Head Exam: ATRAUMATIC, NORMAL INSPECTION, NORMOCEPHALIC - Eye Exam Eye Exam: EOMI, Normal appearance, PERRL Pupil Exam: NORMAL ACCOMODATION, PERRL - ENT Exam ENT Exam: Mucous Membranes Moist, Normal Exam - Neck Exam Neck Exam: Full ROM, Normal Inspection. absent: Lymphadenopathy - Respiratory Exam Respiratory Exam: Decreased Breath Sounds - Cardiovascular Exam Cardiovascular Exam: REGULAR RHYTHM, +S1, +S2 - GI/Abdominal Exam GI & Abdominal Exam: Soft, Diminished Bowel Sounds - Rectal Exam Rectal Exam: Deferred
--- NOTE | 2018-03-23 22:55 | CP.PCM.PN ---
Subjective - Date & Time of Evaluation Date of Evaluation: 03/23/18 Time of Evaluation: 15:00 - Subjective Subjective: dictated Objective - Vital Signs/Intake and Output Vital Signs (last 24 hours): Temp Pulse Resp BP Pulse Ox 97.8 F 69 15 121/46 L 100 03/23/18 20:00 03/23/18 22:00 03/23/18 22:00 03/23/18 21:53 03/23/18 22:00 Intake and Output: 03/23/18 03/24/18 18:59 06:59 Intake Total 925 480 Output Total 0 Balance 925 480 - Medications Medications: Current Medications Albuterol/Ipratropium (Duoneb 3 Mg/0.5 Mg (3 Ml) Ud) 3 ml INH RQ6 [facility] Last Admin: 03/23/18 19:40 Dose: 3 ml Heparin Sodium (Porcine) (Heparin) 5,000 units SC Q8 [facility] Last Admin: 03/22/18 14:18 Dose: 5,000 units Daptomycin 400 mg/ Sodium (Chloride) 100 mls @ 100 mls/hr IV MWF [facility]; Protocol Stop: 03/26/18 09:01 Last Admin: 03/23/18 08:51 Dose: 100 mls/hr Cefepime HCl 1 gm/ Dextrose 50 mls @ 100 mls/hr IVPB Q24H [facility]; Protocol Last Admin: 03/23/18 22:23 Dose: 100 mls/hr Dextrose (Dextrose 5% In Water 1000 Ml) 1,000 mls @ 75 mls/hr IV .[id number] [facility] Last Admin: 03/23/18 22:24 Dose: 75 mls/hr Insulin Human Regular (Novolin R) 0 unit SC Q6 [facility]; Protocol Last Admin: 03/23/18 18:03 Dose: Not Given Nystatin (Nystop Topical Powder) 1 applic TOP BID [facility] Last Admin: 03/23/18 18:04 Dose: 1 applic Pantoprazole Sodium (Protonix Susp) 40 mg GT DAILY [facility] Last Admin: 03/23/18 10:00 Dose: Not Given Valproate Sodium (Depakene Oral Soln) 250 mg PO BID [facility] Last Admin: 03/23/18 18:03 Dose: 250 mg - Labs Labs: 03/23/18 06:01 03/23/18 06:01 PT 12.2 SECONDS (9.7-12.2) 03/23/18 06:01 INR 1.1 03/23/18 06:01 APTT 35 SECONDS (21-34) H 03/23/18 06:01
[2018-03-24] MEDS: (Novolin R) Insulin Human Regular 100 units/ml vial SC SCH ×4 (00:22→17:41)
[2018-03-24] MEDS: Albuterol-Ipratrop 3 mg / 0.5 (3 ml) UD INH SCH ×4 (01:02→19:31)
--- NOTE | 2018-03-24 01:26 | PN ---
DATE: 03/23/2018 SUBJECTIVE: The patient remains unresponsive, altered mental status. OBJECTIVE: VITAL SIGNS: Afebrile. T-max is 97.8, pulse 71, blood pressure 118/47, respirations are 20. HEENT: Head is atraumatic. NECK: Supple. LUNGS: Clear. HEART: S1, S2 regular. ABDOMEN: Soft, nontender. Colostomy is present. EXTREMITIES: He has this left foot ischemic necrotic toes. Right leg is unremarkable. He is noncommunicative. White count is 9.8, hemoglobin 10.1, hematocrit 29.8, platelet count is 315. His labs show BUN is 50, creatinine is 2.9. It is decreasing little bit, and micro bear, his cultures revealed Pseudomonas and yeast, it is sensitive to cefepime, and it is a moderately resistant to most of the drugs. We will continue with the treatment. He has had cystitis in the past and he also has gangrene. He remains with altered mental status. Prognosis is poor, they are trying to get hospice on this patient. Teresa Barnett MD
[2018-03-24 06:05] LABS: BASO # 0.1 K/uL (0.0-0.2); BASO % 0.5 % (0.0-2.0); EOS # 0.2 K/uL (0.0-0.7); EOS % 1.7 % (0.0-4.0); HEMOGLOBIN 9.8 g/dL (12.0-18.0); LYMPH # 0.8 K/uL (1.0-4.3); LYMPH % 7.8 % (20.0-40.0); MEAN CELL VOLUME 92.4 fL (80.0-94.0); MEAN CORPUSCULAR HEMOGLOBIN 30.5 pg (27.0-31.0); MEAN PLATELET VOLUME 7.8 fL (7.2-11.7); MONO # 0.6 K/uL (0.0-0.8); MONO % 5.3 % (0.0-10.0); NEUT # 8.7 K/uL (1.8-7.0); NEUT % 84.7 % (50.0-75.0); NRBC % 0.1 % (0.0-2.0); PLATELET COUNT 332 K/uL (130-400); RBC 3.22 Mil/uL (4.40-5.90); RED CELL DISTRIBUTION WIDTH 16.2 % (11.5-14.5); WHITE BLOOD COUNT 10.3 K/uL (4.8-10.8)
[2018-03-24 06:33] LABS: ALB/GLOB RATIO 0.8 (1.0-2.1); ALBUMIN 2.9 g/dL (3.5-5.0); CALCIUM 8.6 mg/dl (8.6-10.4)
[2018-03-24 08:24] LABS: ANISOCYTOSIS SLIGHT; BANDS 1 % (0-2); LYMPHOCYTE 6 % (20-40); MONOCYTE 1 % (0-10); NEUTROPHIL 92 % (50-75); PLATELET ESTIMATE NORMAL (NORMAL); TOTAL CELLS COUNTED 100
--- NOTE | 2018-03-24 08:35 | CP.PCM.PN ---
Subjective - Date & Time of Evaluation Date of Evaluation: 03/24/18 Time of Evaluation: 08:33 - Subjective Subjective: Awake, same confusion Family refusing AKA Renal function about same lytes acceptable Objective - Vital Signs/Intake and Output Vital Signs (last 24 hours): Temp Pulse Resp BP Pulse Ox 97.9 F 68 13 107/55 L 100 03/24/18 08:00 03/24/18 08:00 03/24/18 08:00 03/24/18 07:53 03/24/18 08:00 Intake and Output: 03/24/18 03/24/18 06:59 18:59 Intake Total 1175 75 Output Total 650 Balance 525 75 - Medications Medications: Current Medications Albuterol/Ipratropium (Duoneb 3 Mg/0.5 Mg (3 Ml) Ud) 3 ml INH RQ6 [facility] Last Admin: 03/24/18 07:40 Dose: 3 ml Heparin Sodium (Porcine) (Heparin) 5,000 units SC Q8 [facility] Last Admin: 03/22/18 14:18 Dose: 5,000 units Daptomycin 400 mg/ Sodium (Chloride) 100 mls @ 100 mls/hr IV MWF [facility]; Protocol Stop: 03/26/18 09:01 Last Admin: 03/23/18 08:51 Dose: 100 mls/hr Cefepime HCl 1 gm/ Dextrose 50 mls @ 100 mls/hr IVPB Q24H [facility]; Protocol Last Admin: 03/23/18 22:23 Dose: 100 mls/hr Dextrose (Dextrose 5% In Water 1000 Ml) 1,000 mls @ 75 mls/hr IV .[id number] [facility] Last Admin: 03/23/18 22:24 Dose: 75 mls/hr Insulin Human Regular (Novolin R) 0 unit SC Q6 [facility]; Protocol Last Admin: 03/24/18 05:56 Dose: Not Given Nystatin (Nystop Topical Powder) 1 applic TOP BID [facility] Last Admin: 03/23/18 18:04 Dose: 1 applic Pantoprazole Sodium (Protonix Susp) 40 mg GT DAILY [facility] Last Admin: 03/23/18 10:00 Dose: Not Given Valproate Sodium (Depakene Oral Soln) 250 mg PO BID [facility] Last Admin: 03/23/18 18:03 Dose: 250 mg - Labs Labs: 03/24/18 05:56 03/24/18 05:56 PT 12.2 SECONDS (9.7-12.2) 03/23/18 06:01 INR 1.1 03/23/18 06:01 APTT 35 SECONDS (21-34) H 03/23/18 06:01 - Constitutional Appears: No Acute Distress, Confused, Chronically Ill - Head Exam Head Exam: ATRAUMATIC, NORMAL INSPECTION - Eye Exam Eye Exam: EOMI, Normal appearance - Neck Exam Neck Exam: Normal Inspection. absent: Tenderness - Respiratory Exam Respiratory Exam: Clear to Ausculation Bilateral, NORMAL BREATHING PATTERN - Cardiovascular Exam Cardiovascular Exam: REGULAR RHYTHM, +S1 - GI/Abdominal Exam GI & Abdominal Exam: Soft. absent: Tenderness - Extremities Exam Extremities Exam: Normal Inspection. absent: Tenderness - Neurological Exam Neurological Exam: Awake, CN II-XII Intact - Skin Skin Exam: Dry, Warm Assessment and Plan (1) Sepsis Status: Acute (2) JOY (acute kidney injury) Status: Acute (3) CKD (chronic kidney disease) stage 4, GFR 15-29 ml/min Status: Acute (4) UTI (urinary tract infection) Status: Acute (5) Dementia Status: Chronic - Assessment and Plan (Free Text) Plan: Continue to monitor renal function, lytes
[2018-03-24] MEDS: Pantoprazole 40 mg Susp UD GT SCH (09:02)
[2018-03-24] MEDS: Valproic Acid 250 mg/5 ml UD Cup PO SCH ×2 (09:02→17:42)
--- NOTE | 2018-03-24 11:44 | CP.CCUPN ---
<Tony Carrillo - Last Filed: 03/24/18 13:23> CCU Subjective - Physician Review Events Since Last Encounter (Free Text): 03/24/18 11:45 No acute events overnight Subjective (Free Text): 03/24/18 11:33 PGY1 Critical Care Progress Note for Dr. Hernandes Patient was seen at bedside this morning. No acute events overnight. Patient minimally responsive. Feeding through NG tube. ROS could not be obtained due to clinical condition. Patient currently pending AKA with Dr. Ceron; pending consent from Guardian. Guardian office has been contacted a few times daily in the last few days, and still no response regarding consent from guardian office. Critical Care Time Spent (in minutes): 35 CCU Objective - Vital Signs / Intake & Output Vital Signs (Last 4 hours): Vital Signs Temp Pulse Resp BP Pulse Ox 03/24/18 11:00 65 13 98 03/24/18 10:53 55 L 19 96/37 L 99 03/24/18 10:00 67 14 100 03/24/18 09:53 65 11 L 130/57 L 100 03/24/18 09:01 71 13 115/52 L 98 03/24/18 09:00 71 14 98 03/24/18 08:00 97.9 F 68 13 100 03/24/18 07:53 69 14 107/55 L 100 Intake and Output (Last 8hrs): Intake & Output 03/23/18 03/24/18 03/24/18 22:59 06:59 14:59 Intake Total 1030 695 400 Output Total 0 650 Balance 1030 45 400 Weight 116 lb 8 oz Intake: Intake, IV Amount 600 650 300 Left External Jugular 0 Left Upper arm 300 650 300 Right Wrist 300 0 Oral 100 Tube Feeding 430 45 Output: Stool 0 650 Other: # Voids Urine, Voided 0 - Physical Exam Head: Positive for: Atraumatic, Normocephalic Pupils: Positive for: PERRL Extroacular Muscles: Positive for: EOMI Mouth: Positive for: Dry Neck: Positive for: Normal Range of Motion. Negative for: JVD Respiratory/Chest: Positive for: Clear to Auscultation. Negative for: Respiratory Distress, Decreased Breath Sounds Cardiovascular: Positive for: Regular Rate and Rhythm, Normal S1, S2 Abdomen: Positive for: Ostomy Tubes (iliostomy bag clean and dry). Negative for: Tenderness, Distention Upper Extremity: Positive for: Normal Inspection, Capillary Refill < 2s. Negative for: Edema Lower Extremity: Negative for: Normal Inspection, Edema, CALF TENDERNESS, NORMAL PULSES (Left lower extremity is cool to touch compared to the right and black in color. No pulses palpable on left lower extremity for pedal and/or popliteal pulses. ) Skin: Positive for: Other (Left Foot: Cold, dry, color is black throughout left foot plantar and dorsal/plantar toes. ) Psychiatric: Positive for: Alert. Negative for: Oriented x 3 - Medications Active Medications: Active Medications Generic Name Dose Route Start Last Admin Trade Name Freq PRN Reason Stop Dose Admin Albuterol/Ipratropium 3 ml 03/14/18 20:00 03/24/18 07:40 Duoneb 3 Mg/0.5 Mg (3 Ml) Ud INH 3 ml RQ6 NEL Administration Heparin Sodium (Porcine) 5,000 units 03/19/18 14:00 03/22/18 14:18 Heparin SC 5,000 units Q8 NEL Administration Daptomycin 400 mg/ Sodium 100 mls @ 100 mls/hr 03/21/18 09:00 03/23/18 08:51 Chloride IV 03/26/18 09:01 100 mls/hr MWF NEL Administration Protocol Cefepime HCl 1 gm/ Dextrose 50 mls @ 100 mls/hr 03/22/18 23:00 03/23/18 22:23 IVPB 100 mls/hr Q24H NEL Administration Protocol Dextrose 1,000 mls @ 75 mls/hr 03/23/18 09:15 03/23/18 22:24 Dextrose 5% In Water 1000 Ml IV 75 mls/hr .[id number] NEL Administration Insulin Human Regular 0 unit 03/19/18 12:00 03/24/18 11:20 Novolin R SC Not Given Q6 NEL Protocol Nystatin 1 applic 03/18/18 11:00 03/24/18 09:02 Nystop Topical Powder TOP 1 applic BID NEL Administration Pantoprazole Sodium 40 mg 03/19/18 10:00 03/24/18 09:02 Protonix Susp GT 40 mg DAILY NEL Administration Valproate Sodium 250 mg 03/17/18 10:30 03/24/18 09:02 Depakene Oral Soln PO 250 mg BID NEL Administration - Patient Studies Lab Studies: Microbiology Studies 03/18/18 10:44 Blood Culture - Final Blood-Venous NO GROWTH AFTER 5 DAYS Gram Stain - Final TEST NOT PERFORMED 03/18/18 09:15 Blood Culture - Final Blood-Venous NO GROWTH AFTER 5 DAYS Gram Stain - Final TEST NOT PERFORMED Lab Studies 03/24/18 03/24/18 03/24/18 Range/Units : 05:56 05:56 WBC 10.3 (4.8-10.8) K/uL RBC 3.22 L (4.40-5.90) Mil/uL Hgb 9.8 L (12.0-18.0) g/dL Hct 29.8 L (35.0-51.0) % MCV 92.4 (80.0-94.0) fL MCH 30.5 (27.0-31.0) pg MCHC 33.0 (33.0-37.0) g/dL RDW 16.2 H (11.5-14.5) % Plt Count 332 (130-400) K/uL MPV 7.8 (7.2-11.7) fL Neut % (Auto) 84.7 H (50.0-75.0) % Lymph % (Auto) 7.8 L (20.0-40.0) % Barron % (Auto) 5.3 (0.0-10.0) % Eos % (Auto) 1.7 (0.0-4.0) % Baso % (Auto) 0.5 (0.0-2.0) % Neut # (Auto) 8.7 H (1.8-7.0) K/uL Lymph # (Auto) 0.8 L (1.0-4.3) K/uL Barron # (Auto) 0.6 (0.0-0.8) K/uL Eos # (Auto) 0.2 (0.0-0.7) K/uL Baso # (Auto) 0.1 (0.0-0.2) K/uL Neutrophils % (Manual) 92 H (50-75) % Band Neutrophils % 1 (0-2) % Lymphocytes % (Manual) 6 L (20-40) % Monocytes % (Manual) 1 (0-10) % Platelet Estimate Normal (NORMAL) Anisocytosis (manual) Slight Sodium 148 (132-148) mmol/L Potassium 4.0 (3.6-5.2) mmol/L Chloride 114 H (98-107) mmol/L Carbon Dioxide 24 (22-30) mmol/L Anion Gap 15 (10-20) BUN 49 H (9-20) mg/dL Creatinine 2.7 H (0.8-1.5) mg/dL Est GFR ( Amer) 28 Est GFR (Non-Af Amer) 23 POC Glucose (mg/dL) 161 H (65-110) mg/dL Random Glucose 165 H (75-110) mg/dL Calcium 8.6 (8.6-10.4) mg/dl Phosphorus 2.7 (2.5-4.5) mg/dL Magnesium 2.1 (1.6-2.3) mg/dL Total Bilirubin 0.4 (0.2-1.3) mg/dL AST 32 (17-59) U/L ALT 39 (21-72) U/L Alkaline Phosphatase 142 H (38-126) U/L Total Protein 6.7 (6.3-8.3) g/dL Albumin 2.9 L (3.5-5.0) g/dL Globulin 3.8 (2.2-3.9) gm/dL Albumin/Globulin Ratio 0.8 L (1.0-2.1) 03/24/18 03/24/18 03/23/18 Range/Units 05:00 00:17 17:38 WBC (4.8-10.8) K/uL RBC (4.40-5.90) Mil/uL Hgb (12.0-18.0) g/dL Hct (35.0-51.0) % MCV (80.0-94.0) fL MCH (27.0-31.0) pg MCHC (33.0-37.0) g/dL RDW (11.5-14.5) % Plt Count (130-400) K/uL MPV (7.2-11.7) fL Neut % (Auto) (50.0-75.0) % Lymph % (Auto) (20.0-40.0) % Barron % (Auto) (0.0-10.0) % Eos % (Auto) (0.0-4.0) % Baso % (Auto) (0.0-2.0) % Neut # (Auto) (1.8-7.0) K/uL Lymph # (Auto) (1.0-4.3) K/uL Barron # (Auto) (0.0-0.8) K/uL Eos # (Auto) (0.0-0.7) K/uL Baso # (Auto) (0.0-0.2) K/uL Neutrophils % (Manual) (50-75) % Band Neutrophils % (0-2) % Lymphocytes % (Manual) (20-40) % Monocytes % (Manual) (0-10) % Platelet Estimate (NORMAL) Anisocytosis (manual) Sodium (132-148) mmol/L Potassium (3.6-5.2) mmol/L Chloride (98-107) mmol/L Carbon Dioxide (22-30) mmol/L Anion Gap (10-20) BUN (9-20) mg/dL Creatinine (0.8-1.5) mg/dL Est GFR ( Amer) Est GFR (Non-Af Amer) POC Glucose (mg/dL) 166 H 157 H 148 H (65-110) mg/dL Random Glucose (75-110) mg/dL Calcium (8.6-10.4) mg/dl Phosphorus (2.5-4.5) mg/dL Magnesium (1.6-2.3) mg/dL Total Bilirubin (0.2-1.3) mg/dL AST (17-59) U/L ALT (21-72) U/L Alkaline Phosphatase (38-126) U/L Total Protein (6.3-8.3) g/dL Albumin (3.5-5.0) g/dL Globulin (2.2-3.9) gm/dL Albumin/Globulin Ratio (1.0-2.1) 03/23/18 Range/Units 11:44 WBC (4.8-10.8) K/uL RBC (4.40-5.90) Mil/uL Hgb (12.0-18.0) g/dL Hct (35.0-51.0) % MCV (80.0-94.0) fL MCH (27.0-31.0) pg MCHC (33.0-37.0) g/dL RDW (11.5-14.5) % Plt Count (130-400) K/uL MPV (7.2-11.7) fL Neut % (Auto) (50.0-75.0) % Lymph % (Auto) (20.0-40.0) % Barron % (Auto) (0.0-10.0) % Eos % (Auto) (0.0-4.0) % Baso % (Auto) (0.0-2.0) % Neut # (Auto) (1.8-7.0) K/uL Lymph # (Auto) (1.0-4.3) K/uL Barron # (Auto) (0.0-0.8) K/uL Eos # (Auto) (0.0-0.7) K/uL Baso # (Auto) (0.0-0.2) K/uL Neutrophils % (Manual) (50-75) % Band Neutrophils % (0-2) % Lymphocytes % (Manual) (20-40) % Monocytes % (Manual) (0-10) % Platelet Estimate (NORMAL) Anisocytosis (manual) Sodium (132-148) mmol/L Potassium (3.6-5.2) mmol/L Chloride (98-107) mmol/L Carbon Dioxide (22-30) mmol/L Anion Gap (10-20) BUN (9-20) mg/dL Creatinine (0.8-1.5) mg/dL Est GFR ( Amer) Est GFR (Non-Af Amer) POC Glucose (mg/dL) 131 H (65-110) mg/dL Random Glucose (75-110) mg/dL Calcium (8.6-10.4) mg/dl Phosphorus (2.5-4.5) mg/dL Magnesium (1.6-2.3) mg/dL Total Bilirubin (0.2-1.3) mg/dL AST (17-59) U/L ALT (21-72) U/L Alkaline Phosphatase (38-126) U/L Total Protein (6.3-8.3) g/dL Albumin (3.5-5.0) g/dL Globulin (2.2-3.9) gm/dL Albumin/Globulin Ratio (1.0-2.1) Laboratory Results - last 24 hr 03/23/18 03/23/18 03/24/18 11:44 17:38 00:17 WBC RBC Hgb Hct MCV MCH MCHC RDW Plt Count MPV Neut % (Auto) Lymph % (Auto) Barron % (Auto) Eos % (Auto) Baso % (Auto) Neut # (Auto) Lymph # (Auto) Barron # (Auto) Eos # (Auto) Baso # (Auto) Neutrophils % (Manual) Band Neutrophils % Lymphocytes % (Manual) Monocytes % (Manual) Platelet Estimate Anisocytosis (manual) Sodium Potassium Chloride Carbon Dioxide Anion Gap BUN Creatinine Est GFR ( Amer) Est GFR (Non-Af Amer) POC Glucose (mg/dL) 131 H 148 H 157 H Random Glucose Calcium Phosphorus Magnesium Total Bilirubin AST ALT Alkaline Phosphatase Total Protein Albumin Globulin Albumin/Globulin Ratio 03/24/18 03/24/18 03/24/18 05:00 05:56 05:56 WBC 10.3 RBC 3.22 L Hgb 9.8 L Hct 29.8 L MCV 92.4 MCH 30.5 MCHC 33.0 RDW 16.2 H Plt Count 332 MPV 7.8 Neut % (Auto) 84.7 H Lymph % (Auto) 7.8 L Barron % (Auto) 5.3 Eos % (Auto) 1.7 Baso % (Auto) 0.5 Neut # (Auto) 8.7 H Lymph # (Auto) 0.8 L Barron # (Auto) 0.6 Eos # (Auto) 0.2 Baso # (Auto) 0.1 Neutrophils % (Manual) 92 H Band Neutrophils % 1 Lymphocytes % (Manual) 6 L Monocytes % (Manual) 1 Platelet Estimate Normal Anisocytosis (manual) Slight Sodium 148 Potassium 4.0 Chloride 114 H Carbon Dioxide 24 Anion Gap 15 BUN 49 H Creatinine 2.7 H Est GFR ( Amer) 28 Est GFR (Non-Af Amer) 23 POC Glucose (mg/dL) 166 H Random Glucose 165 H Calcium 8.6 Phosphorus 2.7 Magnesium 2.1 Total Bilirubin 0.4 AST 32 ALT 39 Alkaline Phosphatase 142 H Total Protein 6.7 Albumin 2.9 L Globulin 3.8 Albumin/Globulin Ratio 0.8 L 03/24/18 11:18 WBC RBC Hgb Hct MCV MCH MCHC RDW Plt Count MPV Neut % (Auto) Lymph % (Auto) Barron % (Auto) Eos % (Auto) Baso % (Auto) Neut # (Auto) Lymph # (Auto) Barron # (Auto) Eos # (Auto) Baso # (Auto) Neutrophils % (Manual) Band Neutrophils % Lymphocytes % (Manual) Monocytes % (Manual) Platelet Estimate Anisocytosis (manual) Sodium Potassium Chloride Carbon Dioxide Anion Gap BUN Creatinine Est GFR ( Amer) Est GFR (Non-Af Amer) POC Glucose (mg/dL) 161 H Random Glucose Calcium Phosphorus Magnesium Total Bilirubin AST ALT Alkaline Phosphatase Total Protein Albumin Globulin Albumin/Globulin Ratio Fingerstick Blood Sugar Results: 161 Review of Systems - Review of Systems Systems not reviewed;Unavailable: Acuity of Condition Critical Care Progress Note - Nutrition Nutrition: Nutrition Category Date Time Status NPO Diet [DIET] Diets 03/22/18 Breakfast Active Assessment/Plan - Assessment and Plan (Free Text) Assessment: This is a 72-year-old male with PMH obtained from previous records which include, but is not limited to: Anemia, Dementia, Atrial Fibrillation, CKD stage 4, CHF, Diabetes Mellitus, who was brought to the ED from Shelter for altered mental status. Full history could not be obtained at the time of the exam due to patient being minimally responsive. While in the ED: CODE SEPSIS was called 2/2 elevated lactic acid. Vascular Surgery was consulted (Dr. Ceron.) Patient was found to be hyperkalemic with positive EKG changes and was treated in ED. ICU team consulted for need for emergent dialysis. Please Note, ROS could not be obtained due to clinical condition. Patient underwent emergent dialysis via left femoral shiley. Since 03/15, shiley removed. Permacath placed by Dr. Ceron. Patient extubated as of . Patient is currently DNR. Hospice being decided. Patient is pending AKA with Dr. Ceron, however this is pending obtaining consent from POA. Renal: Stage 4 CKD Hyperkalemia, resolved - Hypokalemia, resolved: K+=4.1 - Replete as needed - Hypernatremia Im=325 - Start Free water - Emergent dialysis on 03/14 Metabolic acidosis likely secondary to renal insufficiency - CBC, CMP, Mg, Phos Acute Renal Failure - Nephrology consulted (Dr. Jean,) recommendations appreciated * Oliguric * Monitor I&O * Increased metabolic acidosis as well * Made DNR * Prognosis poor Anemia of chronic disease - Transfused 1 PRBCs - Repeat H/H ID: Sepsis likely secondary to UTI vs gangrenous limb 2/2 Critical Limb Ischemia - Leukocytosis resolved; WBC=9.8 - Patient was afebrile today - ID Consulted (Dr. Barnett); recommendations appreciated * Continue current ABXs (Zosyn) - General Surgery consulted regarding left lower extremity; Dr. Ceron; Recommendations appreciated * Plan is for AKA tomorrow Neuro: - Patient is able to be aroused but minimally responsive on exam - Monitor neuro checks CV: No acute issues - Monitor Critical Limb Ischemia (left) - Heparin 25,000 Units @12units/kg/hr - Surgery consulted (Dr. Ceron) * Patient s/p embolectomy 03/15 * Permacath placed on right subclavian 03/15 Pulm: - Patient intubated as of 03/15 - Extubated 03/20 - Monitor GI/: - Colostomy bag on right in tact - NPO except meds - Tube Feedings with Glucerna - Monitor I&O - Protonix 40mg IVP daily Patient seen and case discussed with Dr. Cecilio Carrillo PGY1 <Nevaeh Hernandes - Last Filed: 03/25/18 14:52> CCU Objective - Vital Signs / Intake & Output Vital Signs (Last 4 hours): Vital Signs Temp Pulse Resp BP Pulse Ox 03/25/18 14:00 70 20 100 03/25/18 13:54 68 20 97/43 L 100 03/25/18 13:00 65 19 100 03/25/18 12:53 70 15 136/37 L 100 03/25/18 12:00 97.8 F 75 19 99 03/25/18 11:52 75 10 L 145/52 L 100 03/25/18 11:00 69 18 97 03/25/18 10:53 76 17 119/31 L 98 Intake and Output (Last 8hrs): Intake & Output 03/24/18 03/25/18 03/25/18 22:59 06:59 14:59 Intake Total 900 740 350 Output Total 50 700 Balance 850 40 350 Weight 115 lb Intake: Intake, IV Amount 600 650 250 Left External Jugular 0 0 Left Upper arm 600 650 250 Right Wrist 0 Oral 30 100 Tube Feeding 270 90 Output: Stool 50 700 Other: # Voids Urine, Voided 0 0 - Medications Active Medications: Active Medications Generic Name Dose Route Start Last Admin Trade Name Heriberto PRN Reason Stop Dose Admin Albuterol/Ipratropium 3 ml 03/14/18 20:00 03/25/18 14:08 Duoneb 3 Mg/0.5 Mg (3 Ml) Ud INH 3 ml RQ6 NEL Administration Heparin Sodium (Porcine) 5,000 units 03/19/18 14:00 03/22/18 14:18 Heparin SC 5,000 units Q8 NEL Administration Daptomycin 400 mg/ Sodium 100 mls @ 100 mls/hr 03/21/18 09:00 03/25/18 08:30 Chloride IV 03/26/18 09:01 100 mls/hr MWF NEL Administration Protocol Cefepime HCl 1 gm/ Dextrose 50 mls @ 100 mls/hr 03/22/18 23:00 03/24/18 23:08 IVPB 100 mls/hr Q24H NEL Administration Protocol Insulin Human Regular 0 unit 03/19/18 12:00 03/25/18 12:30 Novolin R SC Not Given Q6 NEL Protocol Nystatin 1 applic 03/18/18 11:00 03/25/18 10:38 Nystop Topical Powder TOP 1 applic BID NEL Administration Pantoprazole Sodium 40 mg 03/19/18 10:00 03/25/18 10:38 Protonix Susp GT 40 mg DAILY NEL Administration Valproate Sodium 250 mg 03/17/18 10:30 03/25/18 10:38 Depakene Oral Soln PO 250 mg BID NEL Administration - Patient Studies Lab Studies: Lab Studies 03/25/18 03/25/18 03/25/18 Range/Units 11:40 06:09 06:09 WBC 9.6 (4.8-10.8) K/uL RBC 3.09 L (4.40-5.90) Mil/uL Hgb 9.6 L (12.0-18.0) g/dL Hct 28.6 L (35.0-51.0) % MCV 92.7 (80.0-94.0) fL MCH 31.3 H (27.0-31.0) pg MCHC 33.7 (33.0-37.0) g/dL RDW 15.9 H (11.5-14.5) % Plt Count 340 (130-400) K/uL MPV 7.6 (7.2-11.7) fL Neut % (Auto) 81.1 H (50.0-75.0) % Lymph % (Auto) 10.8 L (20.0-40.0) % Barron % (Auto) 5.9 (0.0-10.0) % Eos % (Auto) 1.6 (0.0-4.0) % Baso % (Auto) 0.6 (0.0-2.0) % Neut # (Auto) 7.8 H (1.8-7.0) K/uL Lymph # (Auto) 1.0 (1.0-4.3) K/uL Barron # (Auto) 0.6 (0.0-0.8) K/uL Eos # (Auto) 0.2 (0.0-0.7) K/uL Baso # (Auto) 0.1 (0.0-0.2) K/uL Sodium 141 (132-148) mmol/L Potassium 4.4 (3.6-5.2) mmol/L Chloride 110 H (98-107) mmol/L Carbon Dioxide 23 (22-30) mmol/L Anion Gap 13 (10-20) BUN 45 H (9-20) mg/dL Creatinine 2.2 H (0.8-1.5) mg/dL Est GFR ( Amer) 36 Est GFR (Non-Af Amer) 30 POC Glucose (mg/dL) 116 H (65-110) mg/dL Random Glucose 141 H (75-110) mg/dL Calcium 8.6 (8.6-10.4) mg/dl Phosphorus 2.1 L (2.5-4.5) mg/dL Magnesium 1.9 (1.6-2.3) mg/dL Total Bilirubin 0.4 (0.2-1.3) mg/dL AST 25 (17-59) U/L ALT 32 (21-72) U/L Alkaline Phosphatase 158 H (38-126) U/L Total Protein 6.5 (6.3-8.3) g/dL Albumin 3.0 L (3.5-5.0) g/dL Globulin 3.5 (2.2-3.9) gm/dL Albumin/Globulin Ratio 0.8 L (1.0-2.1) 03/25/18 03/24/18 03/24/18 Range/Units 05:34 23:57 17:39 WBC (4.8-10.8) K/uL RBC (4.40-5.90) Mil/uL Hgb (12.0-18.0) g/dL Hct (35.0-51.0) % MCV (80.0-94.0) fL MCH (27.0-31.0) pg MCHC (33.0-37.0) g/dL RDW (11.5-14.5) % Plt Count (130-400) K/uL MPV (7.2-11.7) fL Neut % (Auto) (50.0-75.0) % Lymph % (Auto) (20.0-40.0) % Barron % (Auto) (0.0-10.0) % Eos % (Auto) (0.0-4.0) % Baso % (Auto) (0.0-2.0) % Neut # (Auto) (1.8-7.0) K/uL Lymph # (Auto) (1.0-4.3) K/uL Barron # (Auto) (0.0-0.8) K/uL Eos # (Auto) (0.0-0.7) K/uL Baso # (Auto) (0.0-0.2) K/uL Sodium (132-148) mmol/L Potassium (3.6-5.2) mmol/L Chloride (98-107) mmol/L Carbon Dioxide (22-30) mmol/L Anion Gap (10-20) BUN (9-20) mg/dL Creatinine (0.8-1.5) mg/dL Est GFR ( Amer) Est GFR (Non-Af Amer) POC Glucose (mg/dL) 162 H 152 H 140 H (65-110) mg/dL Random Glucose (75-110) mg/dL Calcium (8.6-10.4) mg/dl Phosphorus (2.5-4.5) mg/dL Magnesium (1.6-2.3) mg/dL Total Bilirubin (0.2-1.3) mg/dL AST (17-59) U/L ALT (21-72) U/L Alkaline Phosphatase (38-126) U/L Total Protein (6.3-8.3) g/dL Albumin (3.5-5.0) g/dL Globulin (2.2-3.9) gm/dL Albumin/Globulin Ratio (1.0-2.1) Laboratory Results - last 24 hr 03/24/18 03/24/18 03/25/18 17:39 23:57 05:34 WBC RBC Hgb Hct MCV MCH MCHC RDW Plt Count MPV Neut % (Auto) Lymph % (Auto) Barron % (Auto) Eos % (Auto) Baso % (Auto) Neut # (Auto) Lymph # (Auto) Barron # (Auto) Eos # (Auto) Baso # (Auto) Sodium Potassium Chloride Carbon Dioxide Anion Gap BUN Creatinine Est GFR ( Amer) Est GFR (Non-Af Amer) POC Glucose (mg/dL) 140 H 152 H 162 H Random Glucose Calcium Phosphorus Magnesium Total Bilirubin AST ALT Alkaline Phosphatase Total Protein Albumin Globulin Albumin/Globulin Ratio 03/25/18 03/25/18 03/25/18 06:09 06:09 11:40 WBC 9.6 RBC 3.09 L Hgb 9.6 L Hct 28.6 L MCV 92.7 MCH 31.3 H MCHC 33.7 RDW 15.9 H Plt Count 340 MPV 7.6 Neut % (Auto) 81.1 H Lymph % (Auto) 10.8 L Barron % (Auto) 5.9 Eos % (Auto) 1.6 Baso % (Auto) 0.6 Neut # (Auto) 7.8 H Lymph # (Auto) 1.0 Barron # (Auto) 0.6 Eos # (Auto) 0.2 Baso # (Auto) 0.1 Sodium 141 Potassium 4.4 Chloride 110 H Carbon Dioxide 23 Anion Gap 13 BUN 45 H Creatinine 2.2 H Est GFR ( Amer) 36 Est GFR (Non-Af Amer) 30 POC Glucose (mg/dL) 116 H Random Glucose 141 H Calcium 8.6 Phosphorus 2.1 L Magnesium 1.9 Total Bilirubin 0.4 AST 25 ALT 32 Alkaline Phosphatase 158 H Total Protein 6.5 Albumin 3.0 L Globulin 3.5 Albumin/Globulin Ratio 0.8 L Critical Care Progress Note - Nutrition Nutrition: Nutrition Category Date Time Status NPO Diet [DIET] Diets 03/25/18 Breakfast Active Assessment/Plan - Assessment and Plan (Free Text) Plan: PAtient seen and examined at bedside. Patient extubated -sepsis: continue abx as per ID -awaiting AKA by veelia -co-ordinate care to obtain consent from Legal guardian -patient remains hemodynamically stable -continue to monitor Above resident documents my clinical management and phyicial exam - Date & Time Date: 03/24/18 Time: 20:00
--- NOTE | 2018-03-24 16:12 | CP.PCM.PN ---
Subjective - Date & Time of Evaluation Date of Evaluation: 03/24/18 Time of Evaluation: 11:15 - Subjective Subjective: clinically same Objective - Vital Signs/Intake and Output Vital Signs (last 24 hours): Temp Pulse Resp BP Pulse Ox 98.1 F 69 18 121/57 L 98 03/24/18 12:00 03/24/18 15:00 03/24/18 15:00 03/24/18 14:54 03/24/18 15:00 Intake and Output: 03/24/18 03/24/18 06:59 18:59 Intake Total 1175 700 Output Total 650 Balance 525 700 - Medications Medications: Current Medications Albuterol/Ipratropium (Duoneb 3 Mg/0.5 Mg (3 Ml) Ud) 3 ml INH RQ6 [facility] [place] Last Admin: 03/24/18 14:17 Dose: 3 ml Heparin Sodium (Porcine) (Heparin) 5,000 units SC Q8 [facility] [place] Last Admin: 03/22/18 14:18 Dose: 5,000 units Daptomycin 400 mg/ Sodium (Chloride) 100 mls @ 100 mls/hr IV MWF NEL; Protocol Stop: 03/26/18 09:01 Last Admin: 03/23/18 08:51 Dose: 100 mls/hr Cefepime HCl 1 gm/ Dextrose 50 mls @ 100 mls/hr IVPB Q24H NEL; Protocol Last Admin: 03/23/18 22:23 Dose: 100 mls/hr Dextrose (Dextrose 5% In Water 1000 Ml) 1,000 mls @ 75 mls/hr IV .[id number] [facility] [place] Last Admin: 03/24/18 11:41 Dose: 75 mls/hr Insulin Human Regular (Novolin R) 0 unit SC Q6 NEL; Protocol Last Admin: 03/24/18 11:20 Dose: Not Given Nystatin (Nystop Topical Powder) 1 applic TOP BID [facility] [place] Last Admin: 03/24/18 09:02 Dose: 1 applic Pantoprazole Sodium (Protonix Susp) 40 mg GT DAILY [facility] [place] Last Admin: 03/24/18 09:02 Dose: 40 mg Valproate Sodium (Depakene Oral Soln) 250 mg PO BID [facility] [place] Last Admin: 03/24/18 09:02 Dose: 250 mg - Labs Labs: 03/24/18 05:56 03/24/18 05:56 PT 12.2 SECONDS (9.7-12.2) 03/23/18 06:01 INR 1.1 03/23/18 06:01 APTT 35 SECONDS (21-34) H 03/23/18 06:01 - Constitutional Appears: Well - Head Exam Head Exam: ATRAUMATIC, NORMAL INSPECTION, NORMOCEPHALIC - Eye Exam Eye Exam: EOMI, Normal appearance, PERRL Pupil Exam: NORMAL ACCOMODATION, PERRL - ENT Exam ENT Exam: Mucous Membranes Moist, Normal Exam - Neck Exam Neck Exam: Full ROM, Normal Inspection. absent: Lymphadenopathy - Respiratory Exam Respiratory Exam: Decreased Breath Sounds - Cardiovascular Exam Cardiovascular Exam: REGULAR RHYTHM, +S1, +S2 - GI/Abdominal Exam GI & Abdominal Exam: Soft, Diminished Bowel Sounds - Rectal Exam Rectal Exam: Deferred
--- NOTE | 2018-03-24 17:12 | CP.PCM.PN ---
Subjective - Date & Time of Evaluation Date of Evaluation: 03/24/18 Time of Evaluation: 17:09 - Subjective Subjective: General Surgery Not for Dr. Ceron No acute events overnight. Patient did not go to the OR today because we were unable to obtain consent. However in the afternoon we were able to contact medical proxy and consent was obtained to go to the OR for a AKA> Objective - Vital Signs/Intake and Output Vital Signs (last 24 hours): Temp Pulse Resp BP Pulse Ox 97.8 F 65 18 105/45 L 98 03/24/18 16:00 03/24/18 16:07 03/24/18 16:07 03/24/18 16:07 03/24/18 16:07 Intake and Output: 03/24/18 03/24/18 06:59 18:59 Intake Total 1175 805 Output Total 650 Balance 525 805 - Medications Medications: Current Medications Albuterol/Ipratropium (Duoneb 3 Mg/0.5 Mg (3 Ml) Ud) 3 ml INH RQ6 NEL Last Admin: 03/24/18 14:17 Dose: 3 ml Heparin Sodium (Porcine) (Heparin) 5,000 units SC Q8 NEL Last Admin: 03/22/18 14:18 Dose: 5,000 units Daptomycin 400 mg/ Sodium (Chloride) 100 mls @ 100 mls/hr IV MWF NEL; Protocol Stop: 03/26/18 09:01 Last Admin: 03/23/18 08:51 Dose: 100 mls/hr Cefepime HCl 1 gm/ Dextrose 50 mls @ 100 mls/hr IVPB Q24H NEL; Protocol Last Admin: 03/23/18 22:23 Dose: 100 mls/hr Dextrose (Dextrose 5% In Water 1000 Ml) 1,000 mls @ 75 mls/hr IV .[id number] NEL Last Admin: 03/24/18 11:41 Dose: 75 mls/hr Insulin Human Regular (Novolin R) 0 unit SC Q6 NEL; Protocol Last Admin: 03/24/18 11:20 Dose: Not Given Nystatin (Nystop Topical Powder) 1 applic TOP BID NEL Last Admin: 03/24/18 09:02 Dose: 1 applic Pantoprazole Sodium (Protonix Susp) 40 mg GT DAILY NEL Last Admin: 03/24/18 09:02 Dose: 40 mg Valproate Sodium (Depakene Oral Soln) 250 mg PO BID NEL Last Admin: 03/24/18 09:02 Dose: 250 mg - Labs Labs: 03/24/18 05:56 03/24/18 05:56 PT 12.2 SECONDS (9.7-12.2) 03/23/18 06:01 INR 1.1 03/23/18 06:01 APTT 35 SECONDS (21-34) H 03/23/18 06:01 - Constitutional Appears: Non-toxic, No Acute Distress, Confused, Chronically Ill - Head Exam Head Exam: ATRAUMATIC, NORMOCEPHALIC - Eye Exam Eye Exam: Normal appearance. absent: Conjunctival injection, Scleral icterus - ENT Exam ENT Exam: Mucous Membranes Moist, Normal Oropharynx - Respiratory Exam Respiratory Exam: NORMAL BREATHING PATTERN. absent: Accessory Muscle Use, Respiratory Distress - Cardiovascular Exam Cardiovascular Exam: RRR - GI/Abdominal Exam GI & Abdominal Exam: Soft. 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 Jie Madsen PGY3
--- NOTE | 2018-03-24 22:22 | CP.PCM.PN ---
Subjective - Date & Time of Evaluation Date of Evaluation: 03/24/18 Time of Evaluation: 17:00 - Subjective Subjective: dictated Objective - Vital Signs/Intake and Output Vital Signs (last 24 hours): Temp Pulse Resp BP Pulse Ox 97.8 F 66 18 126/47 L 100 03/24/18 20:00 03/24/18 21:07 03/24/18 21:07 03/24/18 21:07 03/24/18 21:07 Intake and Output: 03/24/18 03/25/18 18:59 06:59 Intake Total 1045 360 Output Total 50 Balance 995 360 - Medications Medications: Current Medications Albuterol/Ipratropium (Duoneb 3 Mg/0.5 Mg (3 Ml) Ud) 3 ml INH RQ6 [facility] Last Admin: 03/24/18 19:31 Dose: 3 ml Heparin Sodium (Porcine) (Heparin) 5,000 units SC Q8 [facility] Last Admin: 03/22/18 14:18 Dose: 5,000 units Daptomycin 400 mg/ Sodium (Chloride) 100 mls @ 100 mls/hr IV MWF NEL; Protocol Stop: 03/26/18 09:01 Last Admin: 03/23/18 08:51 Dose: 100 mls/hr Cefepime HCl 1 gm/ Dextrose 50 mls @ 100 mls/hr IVPB Q24H NEL; Protocol Last Admin: 03/23/18 22:23 Dose: 100 mls/hr Dextrose (Dextrose 5% In Water 1000 Ml) 1,000 mls @ 75 mls/hr IV .[id number] [facility] Last Admin: 03/24/18 11:41 Dose: 75 mls/hr Insulin Human Regular (Novolin R) 0 unit SC Q6 NEL; Protocol Last Admin: 03/24/18 17:41 Dose: Not Given Nystatin (Nystop Topical Powder) 1 applic TOP BID [facility] Last Admin: 03/24/18 17:42 Dose: 1 applic Pantoprazole Sodium (Protonix Susp) 40 mg GT DAILY [facility] Last Admin: 03/24/18 09:02 Dose: 40 mg Valproate Sodium (Depakene Oral Soln) 250 mg PO BID [facility] Last Admin: 03/24/18 17:42 Dose: 250 mg - Labs Labs: 03/24/18 05:56 03/24/18 05:56 PT 12.2 SECONDS (9.7-12.2) 03/23/18 06:01 INR 1.1 03/23/18 06:01 APTT 35 SECONDS (21-34) H 03/23/18 06:01
[2018-03-25] MEDS: Albuterol-Ipratrop 3 mg / 0.5 (3 ml) UD INH SCH ×4 (01:18→19:20)
[2018-03-25] MEDS: (Novolin R) Insulin Human Regular 100 units/ml vial SC SCH ×4 (04:00→18:04)
--- NOTE | 2018-03-25 04:17 | PN ---
DATE: 03/24/2018 SUBJECTIVE: The patient remains confused, unable to give consent, and he is waiting for a consent to get a left foot surgery done. PHYSICAL EXAMINATION: VITAL SIGNS: He remains with afebrile. T-max is 97.8, pulse 65, blood pressure 105/45, respirations are 18, and his saturations 98. HEENT: Head is atraumatic, normocephalic. NECK: Supple. LUNGS: Clear. HEART: S1, S2 are regular. ABDOMEN: Soft, nontender. No guarding, no rigidity present, and has a colostomy bag. EXTREMITIES: Left foot is cyanotic and gangrenous. He is on daptomycin and cefepime 1 g daily. LABORATORY DATA: His white count is 10.3, and his creatinine is 2.7. ASSESSMENT AND PLAN: He has acute on chronic renal insufficiency, came in with hyperkalemia, and has this gangrene of the left foot and needs surgery, and consent is pending. We will suggest to continue these medications. Teresa Barnett MD
[2018-03-25 06:15] LABS: BASO # 0.1 K/uL (0.0-0.2); BASO % 0.6 % (0.0-2.0); EOS # 0.2 K/uL (0.0-0.7); EOS % 1.6 % (0.0-4.0); HEMOGLOBIN 9.6 g/dL (12.0-18.0); LYMPH % 10.8 % (20.0-40.0); MEAN CELL VOLUME 92.7 fL (80.0-94.0); MEAN CORPUSCULAR HEMOGLOBIN 31.3 pg (27.0-31.0); MEAN CORPUSCULAR HGB CONC 33.7 g/dL (33.0-37.0); MEAN PLATELET VOLUME 7.6 fL (7.2-11.7); MONO # 0.6 K/uL (0.0-0.8); MONO % 5.9 % (0.0-10.0); NEUT # 7.8 K/uL (1.8-7.0); NEUT % 81.1 % (50.0-75.0); NRBC % 0.1 % (0.0-2.0); RBC 3.09 Mil/uL (4.40-5.90); RED CELL DISTRIBUTION WIDTH 15.9 % (11.5-14.5); WHITE BLOOD COUNT 9.6 K/uL (4.8-10.8)
[2018-03-25 06:36] LABS: ALB/GLOB RATIO 0.8 (1.0-2.1); CALCIUM 8.6 mg/dl (8.6-10.4)
[2018-03-25] MEDS: Pantoprazole 40 mg Susp UD GT SCH (10:38)
[2018-03-25] MEDS: Valproic Acid 250 mg/5 ml UD Cup PO SCH ×2 (10:38→18:20)
--- NOTE | 2018-03-25 11:12 | CP.CCUPN ---
<Tony Carrillo - Last Filed: 03/25/18 10:45> CCU Subjective - Physician Review Events Since Last Encounter (Free Text): 03/25/18 10:46 No acute events overnight Subjective (Free Text): 03/25/18 10:45 PGY1 Critical Care Progress Note for Dr. Hernandes Patient was seen at bedside this morning. No acute events overnight. Patient minimally responsive. Patient kept NPO overnight for AKA planned for today at 14:[address] Ceron. ROS could not be obtained due to clinical condition. Critical Care Time Spent (in minutes): 35 CCU Objective - Vital Signs / Intake & Output Vital Signs (Last 4 hours): Vital Signs Temp Pulse Resp BP Pulse Ox 03/25/18 09:00 64 17 100 03/25/18 08:00 97.7 F 71 20 98 03/25/18 07:55 70 17 138/61 96 03/25/18 07:00 60 21 100 03/25/18 06:53 63 20 103/40 L 100 Intake and Output (Last 8hrs): Intake & Output 03/24/18 03/25/18 03/25/18 22:59 06:59 14:59 Intake Total 900 740 150 Output Total 50 700 Balance 850 40 150 Weight 115 lb Intake: Intake, IV Amount 600 650 150 Left External Jugular 0 0 Left Upper arm 600 650 150 Right Wrist 0 Oral 30 0 Tube Feeding 270 90 Output: Stool 50 700 Other: # Voids Urine, Voided 0 0 - Physical Exam Head: Positive for: Atraumatic, Normocephalic Pupils: Positive for: PERRL Extroacular Muscles: Positive for: EOMI Mouth: Positive for: Dry Neck: Positive for: Normal Range of Motion. Negative for: JVD Respiratory/Chest: Positive for: Clear to Auscultation. Negative for: Respiratory Distress, Decreased Breath Sounds Cardiovascular: Positive for: Regular Rate and Rhythm, Normal S1, S2 Abdomen: Positive for: Ostomy Tubes (iliostomy bag clean and dry). Negative for: Tenderness, Distention Upper Extremity: Positive for: Normal Inspection, Capillary Refill < 2s. Negative for: Edema Lower Extremity: Negative for: Normal Inspection, Edema, CALF TENDERNESS, NORMAL PULSES (Left lower extremity is cool to touch compared to the right and black in color. No pulses palpable on left lower extremity for pedal and/or popliteal pulses. ) Skin: Positive for: Other (Left Foot: Cold, dry, color is black throughout left foot plantar and dorsal/plantar toes. ) Psychiatric: Positive for: Alert. Negative for: Oriented x 3 - Medications Active Medications: Active Medications Generic Name Dose Route Start Last Admin Trade Name Freq PRN Reason Stop Dose Admin Albuterol/Ipratropium 3 ml 03/14/18 20:00 03/25/18 08:55 Duoneb 3 Mg/0.5 Mg (3 Ml) Ud INH 3 ml RQ6 NEL Administration Heparin Sodium (Porcine) 5,000 units 03/19/18 14:00 03/22/18 14:18 Heparin SC 5,000 units Q8 NEL Administration Daptomycin 400 mg/ Sodium 100 mls @ 100 mls/hr 03/21/18 09:00 03/25/18 08:30 Chloride IV 03/26/18 09:01 100 mls/hr MWF NEL Administration Protocol Cefepime HCl 1 gm/ Dextrose 50 mls @ 100 mls/hr 03/22/18 23:00 03/24/18 23:08 IVPB 100 mls/hr Q24H NEL Administration Protocol Insulin Human Regular 0 unit 03/19/18 12:00 03/24/18 17:41 Novolin R SC Not Given Q6 NEL Protocol Nystatin 1 applic 03/18/18 11:00 03/25/18 10:38 Nystop Topical Powder TOP 1 applic BID NEL Administration Pantoprazole Sodium 40 mg 03/19/18 10:00 03/25/18 10:38 Protonix Susp GT 40 mg DAILY NEL Administration Valproate Sodium 250 mg 03/17/18 10:30 03/25/18 10:38 Depakene Oral Soln PO 250 mg BID NEL Administration - Patient Studies Lab Studies: Lab Studies 03/25/18 03/25/18 03/25/18 Range/Units 06:09 06:09 05:34 WBC 9.6 (4.8-10.8) K/uL RBC 3.09 L (4.40-5.90) Mil/uL Hgb 9.6 L (12.0-18.0) g/dL Hct 28.6 L (35.0-51.0) % MCV 92.7 (80.0-94.0) fL MCH 31.3 H (27.0-31.0) pg MCHC 33.7 (33.0-37.0) g/dL RDW 15.9 H (11.5-14.5) % Plt Count 340 (130-400) K/uL MPV 7.6 (7.2-11.7) fL Neut % (Auto) 81.1 H (50.0-75.0) % Lymph % (Auto) 10.8 L (20.0-40.0) % Dundy % (Auto) 5.9 (0.0-10.0) % Eos % (Auto) 1.6 (0.0-4.0) % Baso % (Auto) 0.6 (0.0-2.0) % Neut # (Auto) 7.8 H (1.8-7.0) K/uL Lymph # (Auto) 1.0 (1.0-4.3) K/uL Dundy # (Auto) 0.6 (0.0-0.8) K/uL Eos # (Auto) 0.2 (0.0-0.7) K/uL Baso # (Auto) 0.1 (0.0-0.2) K/uL Sodium 141 (132-148) mmol/L Potassium 4.4 (3.6-5.2) mmol/L Chloride 110 H (98-107) mmol/L Carbon Dioxide 23 (22-30) mmol/L Anion Gap 13 (10-20) BUN 45 H (9-20) mg/dL Creatinine 2.2 H (0.8-1.5) mg/dL Est GFR ( Amer) 36 Est GFR (Non-Af Amer) 30 POC Glucose (mg/dL) 162 H (65-110) mg/dL Random Glucose 141 H (75-110) mg/dL Calcium 8.6 (8.6-10.4) mg/dl Phosphorus 2.1 L (2.5-4.5) mg/dL Magnesium 1.9 (1.6-2.3) mg/dL Total Bilirubin 0.4 (0.2-1.3) mg/dL AST 25 (17-59) U/L ALT 32 (21-72) U/L Alkaline Phosphatase 158 H (38-126) U/L Total Protein 6.5 (6.3-8.3) g/dL Albumin 3.0 L (3.5-5.0) g/dL Globulin 3.5 (2.2-3.9) gm/dL Albumin/Globulin Ratio 0.8 L (1.0-2.1) 03/24/18 03/24/18 03/24/18 Range/Units 23:57 17:39 11:18 WBC (4.8-10.8) K/uL RBC (4.40-5.90) Mil/uL Hgb (12.0-18.0) g/dL Hct (35.0-51.0) % MCV (80.0-94.0) fL MCH (27.0-31.0) pg MCHC (33.0-37.0) g/dL RDW (11.5-14.5) % Plt Count (130-400) K/uL MPV (7.2-11.7) fL Neut % (Auto) (50.0-75.0) % Lymph % (Auto) (20.0-40.0) % Dundy % (Auto) (0.0-10.0) % Eos % (Auto) (0.0-4.0) % Baso % (Auto) (0.0-2.0) % Neut # (Auto) (1.8-7.0) K/uL Lymph # (Auto) (1.0-4.3) K/uL Dundy # (Auto) (0.0-0.8) K/uL Eos # (Auto) (0.0-0.7) K/uL Baso # (Auto) (0.0-0.2) K/uL Sodium (132-148) mmol/L Potassium (3.6-5.2) mmol/L Chloride (98-107) mmol/L Carbon Dioxide (22-30) mmol/L Anion Gap (10-20) BUN (9-20) mg/dL Creatinine (0.8-1.5) mg/dL Est GFR ( Amer) Est GFR (Non-Af Amer) POC Glucose (mg/dL) 152 H 140 H 161 H (65-110) mg/dL Random Glucose (75-110) mg/dL Calcium (8.6-10.4) mg/dl Phosphorus (2.5-4.5) mg/dL Magnesium (1.6-2.3) mg/dL Total Bilirubin (0.2-1.3) mg/dL AST (17-59) U/L ALT (21-72) U/L Alkaline Phosphatase (38-126) U/L Total Protein (6.3-8.3) g/dL Albumin (3.5-5.0) g/dL Globulin (2.2-3.9) gm/dL Albumin/Globulin Ratio (1.0-2.1) Laboratory Results - last 24 hr 03/24/18 03/24/18 03/24/18 11:18 17:39 23:57 WBC RBC Hgb Hct MCV MCH MCHC RDW Plt Count MPV Neut % (Auto) Lymph % (Auto) Dundy % (Auto) Eos % (Auto) Baso % (Auto) Neut # (Auto) Lymph # (Auto) Dundy # (Auto) Eos # (Auto) Baso # (Auto) Sodium Potassium Chloride Carbon Dioxide Anion Gap BUN Creatinine Est GFR ( Amer) Est GFR (Non-Af Amer) POC Glucose (mg/dL) 161 H 140 H 152 H Random Glucose Calcium Phosphorus Magnesium Total Bilirubin AST ALT Alkaline Phosphatase Total Protein Albumin Globulin Albumin/Globulin Ratio 03/25/18 03/25/18 03/25/18 05:34 06:09 06:09 WBC 9.6 RBC 3.09 L Hgb 9.6 L Hct 28.6 L MCV 92.7 MCH 31.3 H MCHC 33.7 RDW 15.9 H Plt Count 340 MPV 7.6 Neut % (Auto) 81.1 H Lymph % (Auto) 10.8 L Dundy % (Auto) 5.9 Eos % (Auto) 1.6 Baso % (Auto) 0.6 Neut # (Auto) 7.8 H Lymph # (Auto) 1.0 Dundy # (Auto) 0.6 Eos # (Auto) 0.2 Baso # (Auto) 0.1 Sodium 141 Potassium 4.4 Chloride 110 H Carbon Dioxide 23 Anion Gap 13 BUN 45 H Creatinine 2.2 H Est GFR ( Amer) 36 Est GFR (Non-Af Amer) 30 POC Glucose (mg/dL) 162 H Random Glucose 141 H Calcium 8.6 Phosphorus 2.1 L Magnesium 1.9 Total Bilirubin 0.4 AST 25 ALT 32 Alkaline Phosphatase 158 H Total Protein 6.5 Albumin 3.0 L Globulin 3.5 Albumin/Globulin Ratio 0.8 L Fingerstick Blood Sugar Results: 153 Critical Care Progress Note - Nutrition Nutrition: Nutrition Category Date Time Status NPO Diet [DIET] Diets 03/25/18 Breakfast Active Assessment/Plan - Assessment and Plan (Free Text) Assessment: This is a 72-year-old male with PMH obtained from previous records which include, but is not limited to: Anemia, Dementia, Atrial Fibrillation, CKD stage 4, CHF, Diabetes Mellitus, who was brought to the ED from Longterm for altered mental status. Full history could not be obtained at the time of the exam due to patient being minimally responsive. While in the ED: CODE SEPSIS was called 2/2 elevated lactic acid. Vascular Surgery was consulted (Dr. Ceron.) Patient was found to be hyperkalemic with positive EKG changes and was treated in ED. ICU team consulted for need for emergent dialysis. Please Note, ROS could not be obtained due to clinical condition. Patient underwent emergent dialysis via left femoral shiley. Since 03/15, shiley removed. Permacath placed by Dr. Ceron. Patient extubated as of . Patient is currently DNR. Hospice being decided. Plan is for AKA with Dr. Ceron today at 14:00. Renal: Stage 4 CKD Hyperkalemia, resolved - Hypokalemia, resolved: K+=4.4 - Replete as needed - Hypernatremia; resolved Qs=183 - Emergent dialysis on 03/14 Metabolic acidosis likely secondary to renal insufficiency - CBC, CMP, Mg, Phos Acute Renal Failure - Nephrology consulted (Dr. Jean,) recommendations appreciated * Oliguric * Monitor I&O * Increased metabolic acidosis as well * Made DNR * Prognosis poor Anemia of chronic disease - Transfused 1 PRBCs - Repeat H/H ID: Sepsis likely secondary to UTI vs gangrenous limb 2/2 Critical Limb Ischemia - Leukocytosis resolved - Patient was afebrile today - ID Consulted (Dr. Barnett); recommendations appreciated * Continue current ABXs (Zosyn) - General Surgery consulted regarding left lower extremity; Dr. Ceron; Recommendations appreciated * Plan is for AKA tomorrow Neuro: - Patient is able to be aroused but minimally responsive on exam - Monitor neuro checks CV: No acute issues - Monitor Critical Limb Ischemia (left) - Heparin 25,000 Units @12units/kg/hr - Surgery consulted (Dr. Ceron) * Patient s/p embolectomy 03/15 * Permacath placed on right subclavian 03/15 Pulm: - Patient intubated as of 03/15 - Extubated 03/20 - Monitor GI/: - Colostomy bag on right in tact - NPO except meds - Tube Feedings with Glucerna - Monitor I&O - Protonix 40mg IVP daily Patient seen and case discussed with Dr. Cecilio Carrillo PGY1 <Nevaeh Hernnades - Last Filed: 03/25/18 14:54> CCU Objective - Vital Signs / Intake & Output Vital Signs (Last 4 hours): Vital Signs Temp Pulse Resp BP Pulse Ox 03/25/18 14:00 70 20 100 03/25/18 13:54 68 20 97/43 L 100 03/25/18 13:00 65 19 100 03/25/18 12:53 70 15 136/37 L 100 03/25/18 12:00 97.8 F 75 19 99 03/25/18 11:52 75 10 L 145/52 L 100 03/25/18 11:00 69 18 97 Intake and Output (Last 8hrs): Intake & Output 03/24/18 03/25/18 03/25/18 22:59 06:59 14:59 Intake Total 900 740 350 Output Total 50 700 Balance 850 40 350 Weight 115 lb Intake: Intake, IV Amount 600 650 250 Left External Jugular 0 0 Left Upper arm 600 650 250 Right Wrist 0 Oral 30 100 Tube Feeding 270 90 Output: Stool 50 700 Other: # Voids Urine, Voided 0 0 - Medications Active Medications: Active Medications Generic Name Dose Route Start Last Admin Trade Name Freq PRN Reason Stop Dose Admin Albuterol/Ipratropium 3 ml 03/14/18 20:00 03/25/18 14:08 Duoneb 3 Mg/0.5 Mg (3 Ml) Ud INH 3 ml RQ6 NEL Administration Heparin Sodium (Porcine) 5,000 units 03/19/18 14:00 03/22/18 14:18 Heparin SC 5,000 units Q8 NEL Administration Daptomycin 400 mg/ Sodium 100 mls @ 100 mls/hr 11/05/18 09:00 03/25/18 08:30 Chloride IV 03/26/18 09:01 100 mls/hr MWF NEL Administration Protocol Cefepime HCl 1 gm/ Dextrose 50 mls @ 100 mls/hr 03/22/18 23:00 03/24/18 23:08 IVPB 100 mls/hr Q24H NEL Administration Protocol Insulin Human Regular 0 unit 03/19/18 12:00 03/25/18 12:30 Novolin R SC Not Given Q6 NEL Protocol Nystatin 1 applic 03/18/18 11:00 03/25/18 10:38 Nystop Topical Powder TOP 1 applic BID NEL Administration Pantoprazole Sodium 40 mg 03/19/18 10:00 03/25/18 10:38 Protonix Susp GT 40 mg DAILY NEL Administration Valproate Sodium 250 mg 03/17/18 10:30 03/25/18 10:38 Depakene Oral Soln PO 250 mg BID NEL Administration - Patient Studies Lab Studies: Lab Studies 03/25/18 03/25/18 03/25/18 Range/Units 11:40 06:09 06:09 WBC 9.6 (4.8-10.8) K/uL RBC 3.09 L (4.40-5.90) Mil/uL Hgb 9.6 L (12.0-18.0) g/dL Hct 28.6 L (35.0-51.0) % MCV 92.7 (80.0-94.0) fL MCH 31.3 H (27.0-31.0) pg MCHC 33.7 (33.0-37.0) g/dL RDW 15.9 H (11.5-14.5) % Plt Count 340 (130-400) K/uL MPV 7.6 (7.2-11.7) fL Neut % (Auto) 81.1 H (50.0-75.0) % Lymph % (Auto) 10.8 L (20.0-40.0) % Dundy % (Auto) 5.9 (0.0-10.0) % Eos % (Auto) 1.6 (0.0-4.0) % Baso % (Auto) 0.6 (0.0-2.0) % Neut # (Auto) 7.8 H (1.8-7.0) K/uL Lymph # (Auto) 1.0 (1.0-4.3) K/uL Dundy # (Auto) 0.6 (0.0-0.8) K/uL Eos # (Auto) 0.2 (0.0-0.7) K/uL Baso # (Auto) 0.1 (0.0-0.2) K/uL Sodium 141 (132-148) mmol/L Potassium 4.4 (3.6-5.2) mmol/L Chloride 110 H (98-107) mmol/L Carbon Dioxide 23 (22-30) mmol/L Anion Gap 13 (10-20) BUN 45 H (9-20) mg/dL Creatinine 2.2 H (0.8-1.5) mg/dL Est GFR ( Amer) 36 Est GFR (Non-Af Amer) 30 POC Glucose (mg/dL) 116 H (65-110) mg/dL Random Glucose 141 H (75-110) mg/dL Calcium 8.6 (8.6-10.4) mg/dl Phosphorus 2.1 L (2.5-4.5) mg/dL Magnesium 1.9 (1.6-2.3) mg/dL Total Bilirubin 0.4 (0.2-1.3) mg/dL AST 25 (17-59) U/L ALT 32 (21-72) U/L Alkaline Phosphatase 158 H (38-126) U/L Total Protein 6.5 (6.3-8.3) g/dL Albumin 3.0 L (3.5-5.0) g/dL Globulin 3.5 (2.2-3.9) gm/dL Albumin/Globulin Ratio 0.8 L (1.0-2.1) 03/25/18 03/24/18 03/24/18 Range/Units 05:34 23:57 17:39 WBC (4.8-10.8) K/uL RBC (4.40-5.90) Mil/uL Hgb (12.0-18.0) g/dL Hct (35.0-51.0) % MCV (80.0-94.0) fL MCH (27.0-31.0) pg MCHC (33.0-37.0) g/dL RDW (11.5-14.5) % Plt Count (130-400) K/uL MPV (7.2-11.7) fL Neut % (Auto) (50.0-75.0) % Lymph % (Auto) (20.0-40.0) % Dundy % (Auto) (0.0-10.0) % Eos % (Auto) (0.0-4.0) % Baso % (Auto) (0.0-2.0) % Neut # (Auto) (1.8-7.0) K/uL Lymph # (Auto) (1.0-4.3) K/uL Dundy # (Auto) (0.0-0.8) K/uL Eos # (Auto) (0.0-0.7) K/uL Baso # (Auto) (0.0-0.2) K/uL Sodium (132-148) mmol/L Potassium (3.6-5.2) mmol/L Chloride (98-107) mmol/L Carbon Dioxide (22-30) mmol/L Anion Gap (10-20) BUN (9-20) mg/dL Creatinine (0.8-1.5) mg/dL Est GFR ( Amer) Est GFR (Non-Af Amer) POC Glucose (mg/dL) 162 H 152 H 140 H (65-110) mg/dL Random Glucose (75-110) mg/dL Calcium (8.6-10.4) mg/dl Phosphorus (2.5-4.5) mg/dL Magnesium (1.6-2.3) mg/dL Total Bilirubin (0.2-1.3) mg/dL AST (17-59) U/L ALT (21-72) U/L Alkaline Phosphatase (38-126) U/L Total Protein (6.3-8.3) g/dL Albumin (3.5-5.0) g/dL Globulin (2.2-3.9) gm/dL Albumin/Globulin Ratio (1.0-2.1) Laboratory Results - last 24 hr 03/24/18 03/24/18 03/25/18 17:39 23:57 05:34 WBC RBC Hgb Hct MCV MCH MCHC RDW Plt Count MPV Neut % (Auto) Lymph % (Auto) Dundy % (Auto) Eos % (Auto) Baso % (Auto) Neut # (Auto) Lymph # (Auto) Dundy # (Auto) Eos # (Auto) Baso # (Auto) Sodium Potassium Chloride Carbon Dioxide Anion Gap BUN Creatinine Est GFR ( Amer) Est GFR (Non-Af Amer) POC Glucose (mg/dL) 140 H 152 H 162 H Random Glucose Calcium Phosphorus Magnesium Total Bilirubin AST ALT Alkaline Phosphatase Total Protein Albumin Globulin Albumin/Globulin Ratio 03/25/18 03/25/18 03/25/18 06:09 06:09 11:40 WBC 9.6 RBC 3.09 L Hgb 9.6 L Hct 28.6 L MCV 92.7 MCH 31.3 H MCHC 33.7 RDW 15.9 H Plt Count 340 MPV 7.6 Neut % (Auto) 81.1 H Lymph % (Auto) 10.8 L Dundy % (Auto) 5.9 Eos % (Auto) 1.6 Baso % (Auto) 0.6 Neut # (Auto) 7.8 H Lymph # (Auto) 1.0 Dundy # (Auto) 0.6 Eos # (Auto) 0.2 Baso # (Auto) 0.1 Sodium 141 Potassium 4.4 Chloride 110 H Carbon Dioxide 23 Anion Gap 13 BUN 45 H Creatinine 2.2 H Est GFR ( Amer) 36 Est GFR (Non-Af Amer) 30 POC Glucose (mg/dL) 116 H Random Glucose 141 H Calcium 8.6 Phosphorus 2.1 L Magnesium 1.9 Total Bilirubin 0.4 AST 25 ALT 32 Alkaline Phosphatase 158 H Total Protein 6.5 Albumin 3.0 L Globulin 3.5 Albumin/Globulin Ratio 0.8 L Critical Care Progress Note - Nutrition Nutrition: Nutrition Category Date Time Status NPO Diet [DIET] Diets 03/25/18 Breakfast Active Assessment/Plan - Assessment and Plan (Free Text) Plan: PAtient seen and examined at bedside. Patient remains extubated -sepsis: continue abx as per ID -awaiting AKA by vascular -patient remains hemodynamically stable -continue to monitor Above resident documents my clinical management and physical exam - Date & Time Date: 03/25/18 Time: 14:54
--- NOTE | 2018-03-25 12:50 | CP.PCM.PN ---
Subjective - Date & Time of Evaluation Date of Evaluation: 03/25/18 Time of Evaluation: 12:48 - Subjective Subjective: More awake creat stable at 2.2 possible AKA pending lytes stable except low phos Objective - Vital Signs/Intake and Output Vital Signs (last 24 hours): Temp Pulse Resp BP Pulse Ox 97.7 F 69 18 119/31 L 97 03/25/18 08:00 03/25/18 11:00 03/25/18 11:00 03/25/18 10:53 03/25/18 11:00 Intake and Output: 03/25/18 03/25/18 06:59 18:59 Intake Total 1100 350 Output Total 700 Balance 400 350 - Medications Medications: Current Medications Albuterol/Ipratropium (Duoneb 3 Mg/0.5 Mg (3 Ml) Ud) 3 ml INH RQ6 NEL Last Admin: 03/25/18 08:55 Dose: 3 ml Heparin Sodium (Porcine) (Heparin) 5,000 units SC Q8 NEL Last Admin: 03/22/18 14:18 Dose: 5,000 units Daptomycin 400 mg/ Sodium (Chloride) 100 mls @ 100 mls/hr IV MWF NEL; Protocol Stop: 03/26/18 09:01 Last Admin: 03/25/18 08:30 Dose: 100 mls/hr Cefepime HCl 1 gm/ Dextrose 50 mls @ 100 mls/hr IVPB Q24H NEL; Protocol Last Admin: 03/24/18 23:08 Dose: 100 mls/hr Insulin Human Regular (Novolin R) 0 unit SC Q6 NEL; Protocol Last Admin: 03/24/18 17:41 Dose: Not Given Nystatin (Nystop Topical Powder) 1 applic TOP BID [facility] Last Admin: 03/25/18 10:38 Dose: 1 applic Pantoprazole Sodium (Protonix Susp) 40 mg GT DAILY NEL Last Admin: 03/25/18 10:38 Dose: 40 mg Valproate Sodium (Depakene Oral Soln) 250 mg PO BID NEL Last Admin: 03/25/18 10:38 Dose: 250 mg - Labs Labs: 03/25/18 06:09 03/25/18 06:09 PT 12.2 SECONDS (9.7-12.2) 03/23/18 06:01 INR 1.1 03/23/18 06:01 APTT 35 SECONDS (21-34) H 03/23/18 06:01 - Constitutional Appears: No Acute Distress, Chronically Ill - Head Exam Head Exam: ATRAUMATIC, NORMAL INSPECTION - Eye Exam Eye Exam: EOMI, Normal appearance - Neck Exam Neck Exam: Normal Inspection. absent: Tenderness - Respiratory Exam Respiratory Exam: Rhonchi, NORMAL BREATHING PATTERN - Cardiovascular Exam Cardiovascular Exam: REGULAR RHYTHM, +S1 - GI/Abdominal Exam GI & Abdominal Exam: Soft. absent: Tenderness - Extremities Exam Extremities Exam: Normal Inspection. absent: Tenderness - Neurological Exam Neurological Exam: Altered - Skin Skin Exam: Dry, Warm Assessment and Plan (1) Sepsis Status: Acute (2) JOY (acute kidney injury) Status: Acute (3) CKD (chronic kidney disease) stage 4, GFR 15-29 ml/min Status: Acute (4) UTI (urinary tract infection) Status: Acute (5) Dementia Status: Chronic - Assessment and Plan (Free Text) Plan: replete phos post AKA Monitor renal function
--- NOTE | 2018-03-25 13:21 | CP.PCM.PN ---
Subjective - Date & Time of Evaluation Date of Evaluation: 03/25/18 Time of Evaluation: 13:10 - Subjective Subjective: dictated Objective - Vital Signs/Intake and Output Vital Signs (last 24 hours): Temp Pulse Resp BP Pulse Ox 97.7 F 69 18 119/31 L 97 03/25/18 08:00 03/25/18 11:00 03/25/18 11:00 03/25/18 10:53 03/25/18 11:00 Intake and Output: 03/25/18 03/25/18 06:59 18:59 Intake Total 1100 350 Output Total 700 Balance 400 350 - Medications Medications: Current Medications Albuterol/Ipratropium (Duoneb 3 Mg/0.5 Mg (3 Ml) Ud) 3 ml INH RQ6 NEL Last Admin: 03/25/18 08:55 Dose: 3 ml Heparin Sodium (Porcine) (Heparin) 5,000 units SC Q8 NEL Last Admin: 03/22/18 14:18 Dose: 5,000 units Daptomycin 400 mg/ Sodium (Chloride) 100 mls @ 100 mls/hr IV MWF NEL; Protocol Stop: 03/26/18 09:01 Last Admin: 03/25/18 08:30 Dose: 100 mls/hr Cefepime HCl 1 gm/ Dextrose 50 mls @ 100 mls/hr IVPB Q24H NEL; Protocol Last Admin: 03/24/18 23:08 Dose: 100 mls/hr Insulin Human Regular (Novolin R) 0 unit SC Q6 NEL; Protocol Last Admin: 03/25/18 12:30 Dose: Not Given Nystatin (Nystop Topical Powder) 1 applic TOP BID NEL Last Admin: 03/25/18 10:38 Dose: 1 applic Pantoprazole Sodium (Protonix Susp) 40 mg GT DAILY NEL Last Admin: 03/25/18 10:38 Dose: 40 mg Valproate Sodium (Depakene Oral Soln) 250 mg PO BID NEL Last Admin: 03/25/18 10:38 Dose: 250 mg - Labs Labs: 03/25/18 06:09 03/25/18 06:09 PT 12.2 SECONDS (9.7-12.2) 03/23/18 06:01 INR 1.1 03/23/18 06:01 APTT 35 SECONDS (21-34) H 03/23/18 06:01
[2018-03-25] MEDS ORDERED: Etomidate 20 mg/10ml Inj IV ONE (15:39)
[2018-03-25] MEDS ORDERED: Rocuronium 10 mg/ml (5 ml) ONE (15:45)
--- NOTE | 2018-03-25 15:50 | PCM.SURG1 ---
Surgeon's Initial Post Op Note - Surgeon's Notes Surgeon: Dr. Ceron Clerical Grader: Dr. Christian PGY-3 Type of Anesthesia: IV Sedation Pre-Operative Diagnosis: End Stage Renal Disease Operative Findings: See operative report Post-Operative Diagnosis: Same Operation Performed: Attempted R IJ/Subclavian permacath, Placement of Left femoral permacath Specimen/Specimens Removed: none Estimated Blood Loss: EBL {In ML}: 25 Blood Products Given: N/A Drains Used: No Drains Post-Op Condition: Good Date of Surgery/Procedure: 03/25/18 Time of Surgery/Procedure: 15:50
[2018-03-25] MEDS ORDERED: ePHEDrine 50 mg/ml Inj ONE ×2 (15:57→16:29)
[2018-03-25] MEDS ORDERED: Neostigmine Methylsulfate 3mg/3ml Syringe IV ONE (16:36)
[2018-03-25] MEDS ORDERED: HYDROmorphone 0.5 mg/0.5 ml ISec IVP PRN (16:56)
--- NOTE | 2018-03-25 17:08 | PCM.SURG1 ---
Surgeon's Initial Post Op Note - Surgeon's Notes Surgeon: Dr. Ceron Registered Nurse Bone Marrow Transplant: Dr. Christian PGY-3 Type of Anesthesia: General Endo Anesthesia Administered By: Dr. Fenton Pre-Operative Diagnosis: L foot gangrene, PAD Operative Findings: See operative report Post-Operative Diagnosis: Same Operation Performed: Left above knee amputation Specimen/Specimens Removed: Left leg Estimated Blood Loss: EBL {In ML}: 50 Blood Products Given: N/A Drains Used: No Drains Post-Op Condition: Good Date of Surgery/Procedure: 03/25/18 Time of Surgery/Procedure: 17:08
[2018-03-25 17:59] LABS: ARTERIAL BLOOD GAS HCO3 22.1 mmol/L (21-28); ARTERIAL BLOOD GAS O2 SAT 99.6 % (95-98); ARTERIAL BLOOD GAS PCO2 33 mm/Hg (35-45); ARTERIAL BLOOD GAS PO2 106 mm/Hg (80-100); ARTERIAL BLOOD GAS TCO2 21.4 mmol/L (22-28)
[2018-03-25 18:10] LABS: BASO # 0.1 K/uL (0.0-0.2); BASO % 0.8 % (0.0-2.0); EOS # 0.1 K/uL (0.0-0.7); EOS % 1.2 % (0.0-4.0); HEMOGLOBIN 10.2 g/dL (12.0-18.0); LYMPH # 1.3 K/uL (1.0-4.3); LYMPH % 11.4 % (20.0-40.0); MEAN CELL VOLUME 92.6 fL (80.0-94.0); MEAN CORPUSCULAR HGB CONC 32.4 g/dL (33.0-37.0); MEAN PLATELET VOLUME 7.3 fL (7.2-11.7); MONO # 0.8 K/uL (0.0-0.8); MONO % 6.7 % (0.0-10.0); NEUT % 79.9 % (50.0-75.0); NRBC % 0.1 % (0.0-2.0); RBC 3.39 Mil/uL (4.40-5.90); RED CELL DISTRIBUTION WIDTH 16.3 % (11.5-14.5); WHITE BLOOD COUNT 11.2 K/uL (4.8-10.8)
--- NOTE | 2018-03-25 18:58 | CP.PCM.PN ---
Subjective - Date & Time of Evaluation Date of Evaluation: 03/25/18 Time of Evaluation: 11:45 - Subjective Subjective: clinically same Objective - Vital Signs/Intake and Output Vital Signs (last 24 hours): Temp Pulse Resp BP Pulse Ox 96.5 F L 84 21 106/58 L 100 03/25/18 18:25 03/25/18 18:24 03/25/18 18:24 03/25/18 18:24 03/25/18 18:25 Intake and Output: 03/25/18 03/25/18 06:59 18:59 Intake Total 1100 600 Output Total 700 150 Balance 400 450 - Medications Medications: Current Medications Albuterol/Ipratropium (Duoneb 3 Mg/0.5 Mg (3 Ml) Ud) 3 ml INH RQ6 [facility] Last Admin: 03/25/18 14:08 Dose: 3 ml Heparin Sodium (Porcine) (Heparin) 5,000 units SC Q8 NEL Last Admin: 03/22/18 14:18 Dose: 5,000 units Hydromorphone HCl (Dilaudid) 0.5 mg IVP Q4H PRN PRN Reason: Pain, severe (8-10) Daptomycin 400 mg/ Sodium (Chloride) 100 mls @ 100 mls/hr IV MWF NEL; Protocol Stop: 03/26/18 09:01 Last Admin: 03/25/18 08:30 Dose: 100 mls/hr Cefepime HCl 1 gm/ Dextrose 50 mls @ 100 mls/hr IVPB Q24H NEL; Protocol Last Admin: 03/24/18 23:08 Dose: 100 mls/hr Insulin Human Regular (Novolin R) 0 unit SC Q6 NEL; Protocol Last Admin: 03/25/18 18:04 Dose: Not Given Morphine Sulfate (Morphine) 2 mg IVP Q4 PRN PRN Reason: Pain, moderate (4-7) Nystatin (Nystop Topical Powder) 1 applic TOP BID [facility] Last Admin: 03/25/18 18:20 Dose: 1 applic Pantoprazole Sodium (Protonix Susp) 40 mg GT DAILY [facility] Last Admin: 03/25/18 10:38 Dose: 40 mg Valproate Sodium (Depakene Oral Soln) 250 mg PO BID [facility] Last Admin: 03/25/18 18:20 Dose: 250 mg - Labs Labs: 03/25/18 18:02 03/25/18 06:09 PT 12.2 SECONDS (9.7-12.2) 03/23/18 06:01 INR 1.1 03/23/18 06:01 APTT 35 SECONDS (21-34) H 03/23/18 06:01 - Constitutional Appears: Well - Head Exam Head Exam: ATRAUMATIC, NORMAL INSPECTION, NORMOCEPHALIC - Eye Exam Eye Exam: EOMI, Normal appearance, PERRL Pupil Exam: NORMAL ACCOMODATION, PERRL - ENT Exam ENT Exam: Mucous Membranes Moist, Normal Exam - Neck Exam Neck Exam: Full ROM, Normal Inspection. absent: Lymphadenopathy - Respiratory Exam Respiratory Exam: Decreased Breath Sounds - Cardiovascular Exam Cardiovascular Exam: REGULAR RHYTHM, +S1, +S2 - GI/Abdominal Exam GI & Abdominal Exam: Soft, Diminished Bowel Sounds - Rectal Exam Rectal Exam: Deferred
--- NOTE | 2018-03-25 19:20 | PN ---
DATE: 03/25/2018 SUBJECTIVE: The patient is afebrile. He is confused, lethargic, however, in no respiratory distress, remains in ICU. PHYSICAL EXAMINATION: VITAL SIGNS: T-max is 97.8, pulse 65, blood pressure 136/37, respirations are 19. HEENT: Head is atraumatic, normocephalic. NECK: Supple. LUNGS: Occasional rhonchi. HEART: S1, S2 are regular. ABDOMEN: Soft, nontender. No guarding, no rigidity present. Enterocolostomy. Also has a sacral decubitus. EXTREMITIES: The left foot is cyanotic and he is waiting amputation, waiting for the consent as he is not able to consent for himself. LABORATORY DATA: White count is 9.6 today, hemoglobin is 9.6, hematocrit is 28.6. MEDICATIONS: He is presently on Cubicin as he had MRSA in the recent past and he is on cefepime 1 g daily as he has renal insufficiency. These medicines should be continued further until he is postoperative and I will be away and I will endorse this patient to Dr. Conner as the patient needs further ID and current followup. IMPRESSION: He has gangrene. He came in with hyperkalemia. He had methicillin-resistant Staphylococcus aureus, septicemia, with mycotic aneurysm, and diskitis. The patient has psychiatric issues with behavior and is on antibiotics at this time. Teresa Barnett MD
[2018-03-26] MEDS: (Novolin R) Insulin Human Regular 100 units/ml vial SC SCH ×4 (00:50→18:33)
[2018-03-26] MEDS: Albuterol-Ipratrop 3 mg / 0.5 (3 ml) UD INH SCH ×3 (01:15→13:38)
--- NOTE | 2018-03-26 03:40 | OP ---
PROCEDURE DATE: 03/25/2018 PREOPERATIVE DIAGNOSIS: Gangrene, left foot. POSTOPERATIVE DIAGNOSIS: Gangrene, left foot. PROCEDURE CARRIED OUT: Left above-knee amputation. SURGEON: Jon Ceron Jr., MD NURSE REVIEWER: Aretha Christian DO ANESTHESIOLOGIST: Dr. Fenton ESTIMATED BLOOD LOSS: 300 mL. INDICATIONS: Elderly male with dementia, has ischemic leg, previously had embolectomy, reperfusion, etc. Nonetheless, the leg is ischemic. He is nonambulatory. A standard above-knee amputation was carried out with consent being applied by the public guardian. OPERATIVE FINDINGS: 1. There is excellent vascularity at the amputation site. 2. The femoral artery had a pulse. DESCRIPTION OF PROCEDURE: The patient was given general anesthesia and intravenous antibiotics. A standard left above-knee amputation was carried out. After completion of this, we obtained hemostasis. We closed the wound in layers and closed the skin with skin clips and nylon sutures. Blood loss was 300 mL. The operation was left above-knee amputation. Jon Ceron Jr., MD
[2018-03-26 06:11] LABS: BASO # 0.1 K/uL (0.0-0.2); BASO % 0.6 % (0.0-2.0); EOS # 0.1 K/uL (0.0-0.7); EOS % 0.9 % (0.0-4.0); HEMOGLOBIN 8.8 g/dL (12.0-18.0); LYMPH # 1.1 K/uL (1.0-4.3); LYMPH % 8.1 % (20.0-40.0); MEAN CELL VOLUME 92.1 fL (80.0-94.0); MEAN CORPUSCULAR HEMOGLOBIN 30.7 pg (27.0-31.0); MEAN CORPUSCULAR HGB CONC 33.4 g/dL (33.0-37.0); MEAN PLATELET VOLUME 7.6 fL (7.2-11.7); MONO # 0.9 K/uL (0.0-0.8); MONO % 6.7 % (0.0-10.0); NEUT # 11.1 K/uL (1.8-7.0); NEUT % 83.7 % (50.0-75.0); NRBC % 0.1 % (0.0-2.0); PLATELET COUNT 404 K/uL (130-400); RBC 2.86 Mil/uL (4.40-5.90); RED CELL DISTRIBUTION WIDTH 16.1 % (11.5-14.5); WHITE BLOOD COUNT 13.3 K/uL (4.8-10.8)
[2018-03-26 06:36] LABS: ALB/GLOB RATIO 0.7 (1.0-2.1); ALBUMIN 2.7 g/dL (3.5-5.0); CALCIUM 8.6 mg/dl (8.6-10.4)
[2018-03-26 09:09] LABS: BANDS 5 % (0-2); EOSINOPHIL 1 % (0-4); LYMPHOCYTE 8 % (20-40); MONOCYTE 6 % (0-10); NEUTROPHIL 79 % (50-75); REACTIVE LYMPHOCYTES 1 % (0-0); TOTAL CELLS COUNTED 100
[2018-03-26 09:10] LABS: ANISOCYTOSIS SLIGHT; GIANT PLATELETS PRESENT; HYPOCHROMIC SLIGHT; LARGE PLATELETS PRESENT; PLATELET ESTIMATE SLIGHTLY INCREASED (NORMAL); POLYCHROMIC SLIGHT
[2018-03-26 09:11] LABS: TOXIC GRANULATION PRESENT
--- NOTE | 2018-03-26 09:24 | CP.PCM.PN ---
Subjective - Date & Time of Evaluation Date of Evaluation: 03/26/18 Time of Evaluation: 09:22 - Subjective Subjective: Surgery: Dr. Ceron Pt seen and examined. No acute overnight events. s/p L AKA; POD#1. Continues to be at baseline dementia with no purposeful movements. No fevers recorded overnight. Objective - Vital Signs/Intake and Output Vital Signs (last 24 hours): Temp Pulse Resp BP Pulse Ox 98 F 86 29 H 95/46 L 98 03/26/18 04:00 03/26/18 06:00 03/26/18 06:00 03/26/18 05:57 03/26/18 06:00 Intake and Output: 03/26/18 03/26/18 06:59 18:59 Intake Total 500 Output Total 50 Balance 450 - Medications Medications: Current Medications Acetaminophen (Tylenol 325mg Tab) 650 mg PO Q6 PRN PRN Reason: Pain, moderate (4-7) Albuterol/Ipratropium (Duoneb 3 Mg/0.5 Mg (3 Ml) Ud) 3 ml INH RQ6 NEL Last Admin: 03/26/18 08:15 Dose: 3 ml Heparin Sodium (Porcine) (Heparin) 5,000 units SC Q8 NEL Last Admin: 03/22/18 14:18 Dose: 5,000 units Cefepime HCl 1 gm/ Dextrose 50 mls @ 100 mls/hr IVPB Q24H NEL; Protocol Last Admin: 03/25/18 23:15 Dose: 100 mls/hr Insulin Human Regular (Novolin R) 0 unit SC Q6 NEL; Protocol Last Admin: 03/26/18 05:35 Dose: Not Given Nystatin (Nystop Topical Powder) 1 applic TOP BID NEL Last Admin: 03/25/18 18:20 Dose: 1 applic Pantoprazole Sodium (Protonix Susp) 40 mg GT DAILY NEL Last Admin: 03/25/18 10:38 Dose: 40 mg Valproate Sodium (Depakene Oral Soln) 250 mg PO BID NEL Last Admin: 03/25/18 18:20 Dose: 250 mg - Labs Labs: 03/26/18 05:59 03/26/18 05:59 PT 12.2 SECONDS (9.7-12.2) 03/23/18 06:01 INR 1.1 03/23/18 06:01 APTT 35 SECONDS (21-34) H 03/23/18 06:01 - Constitutional Appears: No Acute Distress - ENT Exam ENT Exam: Mucous Membranes Moist - Respiratory Exam Respiratory Exam: NORMAL BREATHING PATTERN - Cardiovascular Exam Cardiovascular Exam: RRR - GI/Abdominal Exam GI & Abdominal Exam: Soft - Extremities Exam Additional comments: L AKA stump with dressing C/D/I - Neurological Exam Neurological Exam: Awake - Skin Skin Exam: Dry, Warm Assessment and Plan - Assessment and Plan (Free Text) Assessment: 72M s/p L AKA; POD#1 Plan: - keep dressing clean/dry; do not remove unless saturated - sutures/denisha in the stump will be removed in 4-6 weeks - cont current management per ICU/primary teams - d/w Dr. Jie Christian
--- NOTE | 2018-03-26 09:39 | CP.CCUPN ---
CCU Subjective - Physician Review Events Since Last Encounter (Free Text): 03/26/18 09:39 Patient is a 72-year-old male with a history of dementia, anemia, atrial fibrillation, renal insufficiency, heart failure, diabetes admitted with acute respiratory failure. Acute renal insufficiency. Intubated. Patient underwent left AKA. Patient now DNR. His comfortable. Patient clinic is stable, he can be transferred to floor. Supportive treatment. Repeat blood glucose, hemoglobin level. He will follow up by medical team in the floor CCU Objective - Vital Signs / Intake & Output Vital Signs (Last 4 hours): Vital Signs Pulse Resp BP Pulse Ox 03/26/18 06:00 86 29 H 98 03/26/18 05:57 95/46 L Intake and Output (Last 8hrs): Intake & Output 03/25/18 03/26/18 03/26/18 22:59 06:59 14:59 Intake Total 340 410 Output Total 150 50 Balance 190 360 Weight 116 lb Intake: IV 200 Intake, IV Amount 0 50 Left Upper arm 0 50 Oral 50 Tube Feeding 90 360 Output: Stool 150 50 Other: # Voids Urine, Voided 0 - Physical Exam Head: Positive for: Atraumatic, Normocephalic Pupils: Positive for: PERRL Extroacular Muscles: Positive for: EOMI Mouth: Positive for: Dry Neck: Positive for: Normal Range of Motion. Negative for: JVD Respiratory/Chest: Positive for: Clear to Auscultation. Negative for: Respiratory Distress, Decreased Breath Sounds Cardiovascular: Positive for: Regular Rate and Rhythm, Normal S1, S2 Abdomen: Positive for: Ostomy Tubes (iliostomy bag clean and dry). Negative for: Tenderness, Distention Upper Extremity: Positive for: Normal Inspection, Capillary Refill < 2s. Negative for: Edema Lower Extremity: Negative for: Normal Inspection, Edema, CALF TENDERNESS, NORMAL PULSES (Left lower extremity is cool to touch compared to the right and black in color. No pulses palpable on left lower extremity for pedal and/or popliteal pulses. ) Skin: Positive for: Other (Left Foot: Cold, dry, color is black throughout left foot plantar and dorsal/plantar toes. ) Psychiatric: Positive for: Alert. Negative for: Oriented x 3 - Medications Active Medications: Active Medications Generic Name Dose Route Start Last Admin Trade Name Freq PRN Reason Stop Dose Admin Acetaminophen 650 mg 03/26/18 08:07 Tylenol 325mg Tab PO Q6 PRN Pain, moderate (4-7) Albuterol/Ipratropium 3 ml 03/14/18 20:00 03/26/18 08:15 Duoneb 3 Mg/0.5 Mg (3 Ml) Ud INH 3 ml RQ6 NEL Administration Heparin Sodium (Porcine) 5,000 units 03/19/18 14:00 03/22/18 14:18 Heparin SC 5,000 units Q8 NEL Administration Cefepime HCl 1 gm/ Dextrose 50 mls @ 100 mls/hr 03/22/18 23:00 03/25/18 23:15 IVPB 100 mls/hr Q24H NEL Administration Protocol Insulin Human Regular 0 unit 03/19/18 12:00 03/26/18 05:35 Novolin R SC Not Given Q6 NEL Protocol Nystatin 1 applic 03/18/18 11:00 03/25/18 18:20 Nystop Topical Powder TOP 1 applic BID NEL Administration Pantoprazole Sodium 40 mg 03/19/18 10:00 03/25/18 10:38 Protonix Susp GT 40 mg DAILY ENL Administration Valproate Sodium 250 mg 03/17/18 10:30 03/25/18 18:20 Depakene Oral Soln PO 250 mg BID NEL Administration - Patient Studies Lab Studies: Lab Studies 03/26/18 03/26/18 03/26/18 Range/Units 05:59 05:59 04:59 WBC 13.3 H (4.8-10.8) K/uL RBC 2.86 L (4.40-5.90) Mil/uL Hgb 8.8 L (12.0-18.0) g/dL Hct 26.4 L (35.0-51.0) % MCV 92.1 (80.0-94.0) fL MCH 30.7 (27.0-31.0) pg MCHC 33.4 (33.0-37.0) g/dL RDW 16.1 H (11.5-14.5) % Plt Count 404 H (130-400) K/uL MPV 7.6 (7.2-11.7) fL Neut % (Auto) 83.7 H (50.0-75.0) % Lymph % (Auto) 8.1 L (20.0-40.0) % Smith % (Auto) 6.7 (0.0-10.0) % Eos % (Auto) 0.9 (0.0-4.0) % Baso % (Auto) 0.6 (0.0-2.0) % Neut # (Auto) 11.1 H (1.8-7.0) K/uL Lymph # (Auto) 1.1 (1.0-4.3) K/uL Smith # (Auto) 0.9 H (0.0-0.8) K/uL Eos # (Auto) 0.1 (0.0-0.7) K/uL Baso # (Auto) 0.1 (0.0-0.2) K/uL Neutrophils % (Manual) 79 H (50-75) % Band Neutrophils % 5 H (0-2) % Lymphocytes % (Manual) 8 L (20-40) % Reactive Lymphs % 1 H (0-0) % Monocytes % (Manual) 6 (0-10) % Eosinophils % (Manual) 1 (0-4) % Toxic Granulation Present Platelet Estimate Slightly increased H (NORMAL) Large Platelets Present Giant Platelets Present Polychromasia Slight Hypochromasia (manual) Slight Anisocytosis (manual) Slight Puncture Site pCO2 (35-45) mm/Hg pO2 (80-100) mm/Hg HCO3 (21-28) mmol/L ABG pH (7.35-7.45) ABG Total CO2 (22-28) mmol/L ABG O2 Saturation (95-98) % ABG Base Excess (-2.0-3.0) mmol/L Lionel Test ABG Potassium (3.6-5.2) mmol/L A-a O2 Difference mm/Hg Respiratory Index Sodium 142 (132-148) mmol/l Chloride 111 H (98-107) mmol/L Glucose (75-110) mg/dl Lactate (0.7-2.1) mmol/L FiO2 % Potassium 4.1 (3.6-5.2) mmol/L Carbon Dioxide 23 (22-30) mmol/L Anion Gap 12 (10-20) BUN 48 H (9-20) mg/dL Creatinine 2.9 H (0.8-1.5) mg/dL Est GFR ( Amer) 26 Est GFR (Non-Af Amer) 21 POC Glucose (mg/dL) 126 H (65-110) mg/dL Random Glucose 127 H (75-110) mg/dL Lactic Acid (0.7-2.1) mmol/L Calcium 8.6 (8.6-10.4) mg/dl Phosphorus 3.5 (2.5-4.5) mg/dL Magnesium 1.9 (1.6-2.3) mg/dL Total Bilirubin 0.4 (0.2-1.3) mg/dL AST 25 (17-59) U/L ALT 31 (21-72) U/L Alkaline Phosphatase 126 D (38-126) U/L Troponin I (0.00-0.120) ng/mL Total Protein 6.5 (6.3-8.3) g/dL Albumin 2.7 L (3.5-5.0) g/dL Globulin 3.8 (2.2-3.9) gm/dL Albumin/Globulin Ratio 0.7 L (1.0-2.1) Arterial Blood Potassium (3.6-5.2) mmol/L 03/26/18 03/25/18 03/25/18 Range/Units 00:42 18:02 18:02 WBC (4.8-10.8) K/uL RBC (4.40-5.90) Mil/uL Hgb (12.0-18.0) g/dL Hct (35.0-51.0) % MCV (80.0-94.0) fL MCH (27.0-31.0) pg MCHC (33.0-37.0) g/dL RDW (11.5-14.5) % Plt Count (130-400) K/uL MPV (7.2-11.7) fL Neut % (Auto) (50.0-75.0) % Lymph % (Auto) (20.0-40.0) % Smith % (Auto) (0.0-10.0) % Eos % (Auto) (0.0-4.0) % Baso % (Auto) (0.0-2.0) % Neut # (Auto) (1.8-7.0) K/uL Lymph # (Auto) (1.0-4.3) K/uL Smith # (Auto) (0.0-0.8) K/uL Eos # (Auto) (0.0-0.7) K/uL Baso # (Auto) (0.0-0.2) K/uL Neutrophils % (Manual) (50-75) % Band Neutrophils % (0-2) % Lymphocytes % (Manual) (20-40) % Reactive Lymphs % (0-0) % Monocytes % (Manual) (0-10) % Eosinophils % (Manual) (0-4) % Toxic Granulation Platelet Estimate (NORMAL) Large Platelets Giant Platelets Polychromasia Hypochromasia (manual) Anisocytosis (manual) Puncture Site pCO2 (35-45) mm/Hg pO2 (80-100) mm/Hg HCO3 (21-28) mmol/L ABG pH (7.35-7.45) ABG Total CO2 (22-28) mmol/L ABG O2 Saturation (95-98) % ABG Base Excess (-2.0-3.0) mmol/L Lionel Test ABG Potassium (3.6-5.2) mmol/L A-a O2 Difference mm/Hg Respiratory Index Sodium (132-148) mmol/l Chloride (98-107) mmol/L Glucose (75-110) mg/dl Lactate (0.7-2.1) mmol/L FiO2 % Potassium (3.6-5.2) mmol/L Carbon Dioxide (22-30) mmol/L Anion Gap (10-20) BUN (9-20) mg/dL Creatinine (0.8-1.5) mg/dL Est GFR ( Amer) Est GFR (Non-Af Amer) POC Glucose (mg/dL) 121 H (65-110) mg/dL Random Glucose (75-110) mg/dL Lactic Acid 1.5 (0.7-2.1) mmol/L Calcium (8.6-10.4) mg/dl Phosphorus (2.5-4.5) mg/dL Magnesium (1.6-2.3) mg/dL Total Bilirubin (0.2-1.3) mg/dL AST (17-59) U/L ALT (21-72) U/L Alkaline Phosphatase (38-126) U/L Troponin I 0.0190 (0.00-0.120) ng/mL Total Protein (6.3-8.3) g/dL Albumin (3.5-5.0) g/dL Globulin (2.2-3.9) gm/dL Albumin/Globulin Ratio (1.0-2.1) Arterial Blood Potassium (3.6-5.2) mmol/L 03/25/18 03/25/18 03/25/18 Range/Units 18:02 17:56 17:49 WBC 11.2 H (4.8-10.8) K/uL RBC 3.39 L (4.40-5.90) Mil/uL Hgb 10.2 L (12.0-18.0) g/dL Hct 31.4 L (35.0-51.0) % MCV 92.6 (80.0-94.0) fL MCH 30.0 (27.0-31.0) pg MCHC 32.4 L (33.0-37.0) g/dL RDW 16.3 H (11.5-14.5) % Plt Count 381 (130-400) K/uL MPV 7.3 (7.2-11.7) fL Neut % (Auto) 79.9 H (50.0-75.0) % Lymph % (Auto) 11.4 L (20.0-40.0) % Smith % (Auto) 6.7 (0.0-10.0) % Eos % (Auto) 1.2 (0.0-4.0) % Baso % (Auto) 0.8 (0.0-2.0) % Neut # (Auto) 9.0 H (1.8-7.0) K/uL Lymph # (Auto) 1.3 (1.0-4.3) K/uL Smith # (Auto) 0.8 (0.0-0.8) K/uL Eos # (Auto) 0.1 (0.0-0.7) K/uL Baso # (Auto) 0.1 (0.0-0.2) K/uL Neutrophils % (Manual) (50-75) % Band Neutrophils % (0-2) % Lymphocytes % (Manual) (20-40) % Reactive Lymphs % (0-0) % Monocytes % (Manual) (0-10) % Eosinophils % (Manual) (0-4) % Toxic Granulation Platelet Estimate (NORMAL) Large Platelets Giant Platelets Polychromasia Hypochromasia (manual) Anisocytosis (manual) Puncture Site Rb pCO2 33 L (35-45) mm/Hg pO2 106 H (80-100) mm/Hg HCO3 22.1 (21-28) mmol/L ABG pH 7.40 (7.35-7.45) ABG Total CO2 21.4 L (22-28) mmol/L ABG O2 Saturation 99.6 H (95-98) % ABG Base Excess -3.6 L (-2.0-3.0) mmol/L Lionel Test Na ABG Potassium 4.1 (3.6-5.2) mmol/L A-a O2 Difference 138.0 mm/Hg Respiratory Index 1.3 Sodium 143.0 (132-148) mmol/l Chloride 116.0 H (98-107) mmol/L Glucose 130 H (75-110) mg/dl Lactate 1.0 (0.7-2.1) mmol/L FiO2 40.0 % Potassium (3.6-5.2) mmol/L Carbon Dioxide (22-30) mmol/L Anion Gap (10-20) BUN (9-20) mg/dL Creatinine (0.8-1.5) mg/dL Est GFR ( Amer) Est GFR (Non-Af Amer) POC Glucose (mg/dL) 121 H (65-110) mg/dL Random Glucose (75-110) mg/dL Lactic Acid (0.7-2.1) mmol/L Calcium (8.6-10.4) mg/dl Phosphorus (2.5-4.5) mg/dL Magnesium (1.6-2.3) mg/dL Total Bilirubin (0.2-1.3) mg/dL AST (17-59) U/L ALT (21-72) U/L Alkaline Phosphatase (38-126) U/L Troponin I (0.00-0.120) ng/mL Total Protein (6.3-8.3) g/dL Albumin (3.5-5.0) g/dL Globulin (2.2-3.9) gm/dL Albumin/Globulin Ratio (1.0-2.1) Arterial Blood Potassium 4.1 (3.6-5.2) mmol/L 03/25/18 Range/Units 11:40 WBC (4.8-10.8) K/uL RBC (4.40-5.90) Mil/uL Hgb (12.0-18.0) g/dL Hct (35.0-51.0) % MCV (80.0-94.0) fL MCH (27.0-31.0) pg MCHC (33.0-37.0) g/dL RDW (11.5-14.5) % Plt Count (130-400) K/uL MPV (7.2-11.7) fL Neut % (Auto) (50.0-75.0) % Lymph % (Auto) (20.0-40.0) % Smith % (Auto) (0.0-10.0) % Eos % (Auto) (0.0-4.0) % Baso % (Auto) (0.0-2.0) % Neut # (Auto) (1.8-7.0) K/uL Lymph # (Auto) (1.0-4.3) K/uL Smith # (Auto) (0.0-0.8) K/uL Eos # (Auto) (0.0-0.7) K/uL Baso # (Auto) (0.0-0.2) K/uL Neutrophils % (Manual) (50-75) % Band Neutrophils % (0-2) % Lymphocytes % (Manual) (20-40) % Reactive Lymphs % (0-0) % Monocytes % (Manual) (0-10) % Eosinophils % (Manual) (0-4) % Toxic Granulation Platelet Estimate (NORMAL) Large Platelets Giant Platelets Polychromasia Hypochromasia (manual) Anisocytosis (manual) Puncture Site pCO2 (35-45) mm/Hg pO2 (80-100) mm/Hg HCO3 (21-28) mmol/L ABG pH (7.35-7.45) ABG Total CO2 (22-28) mmol/L ABG O2 Saturation (95-98) % ABG Base Excess (-2.0-3.0) mmol/L Lionel Test ABG Potassium (3.6-5.2) mmol/L A-a O2 Difference mm/Hg Respiratory Index Sodium (132-148) mmol/l Chloride (98-107) mmol/L Glucose (75-110) mg/dl Lactate (0.7-2.1) mmol/L FiO2 % Potassium (3.6-5.2) mmol/L Carbon Dioxide (22-30) mmol/L Anion Gap (10-20) BUN (9-20) mg/dL Creatinine (0.8-1.5) mg/dL Est GFR ( Amer) Est GFR (Non-Af Amer) POC Glucose (mg/dL) 116 H (65-110) mg/dL Random Glucose (75-110) mg/dL Lactic Acid (0.7-2.1) mmol/L Calcium (8.6-10.4) mg/dl Phosphorus (2.5-4.5) mg/dL Magnesium (1.6-2.3) mg/dL Total Bilirubin (0.2-1.3) mg/dL AST (17-59) U/L ALT (21-72) U/L Alkaline Phosphatase (38-126) U/L Troponin I (0.00-0.120) ng/mL Total Protein (6.3-8.3) g/dL Albumin (3.5-5.0) g/dL Globulin (2.2-3.9) gm/dL Albumin/Globulin Ratio (1.0-2.1) Arterial Blood Potassium (3.6-5.2) mmol/L Laboratory Results - last 24 hr 03/25/18 03/25/18 03/25/18 11:40 17:49 17:56 WBC RBC Hgb Hct MCV MCH MCHC RDW Plt Count MPV Neut % (Auto) Lymph % (Auto) Smith % (Auto) Eos % (Auto) Baso % (Auto) Neut # (Auto) Lymph # (Auto) Smith # (Auto) Eos # (Auto) Baso # (Auto) Neutrophils % (Manual) Band Neutrophils % Lymphocytes % (Manual) Reactive Lymphs % Monocytes % (Manual) Eosinophils % (Manual) Toxic Granulation Platelet Estimate Large Platelets Giant Platelets Polychromasia Hypochromasia (manual) Anisocytosis (manual) Puncture Site Rb pCO2 33 L pO2 106 H HCO3 22.1 ABG pH 7.40 ABG Total CO2 21.4 L ABG O2 Saturation 99.6 H ABG Base Excess -3.6 L Lionel Test Na ABG Potassium 4.1 A-a O2 Difference 138.0 Respiratory Index 1.3 Sodium 143.0 Chloride 116.0 H Glucose 130 H Lactate 1.0 FiO2 40.0 Potassium Carbon Dioxide Anion Gap BUN Creatinine Est GFR ( Amer) Est GFR (Non-Af Amer) POC Glucose (mg/dL) 116 H 121 H Random Glucose Lactic Acid Calcium Phosphorus Magnesium Total Bilirubin AST ALT Alkaline Phosphatase Troponin I Total Protein Albumin Globulin Albumin/Globulin Ratio Arterial Blood Potassium 4.1 03/25/18 03/25/18 03/25/18 18:02 18:02 18:02 WBC 11.2 H RBC 3.39 L Hgb 10.2 L Hct 31.4 L MCV 92.6 MCH 30.0 MCHC 32.4 L RDW 16.3 H Plt Count 381 MPV 7.3 Neut % (Auto) 79.9 H Lymph % (Auto) 11.4 L Smith % (Auto) 6.7 Eos % (Auto) 1.2 Baso % (Auto) 0.8 Neut # (Auto) 9.0 H Lymph # (Auto) 1.3 Smith # (Auto) 0.8 Eos # (Auto) 0.1 Baso # (Auto) 0.1 Neutrophils % (Manual) Band Neutrophils % Lymphocytes % (Manual) Reactive Lymphs % Monocytes % (Manual) Eosinophils % (Manual) Toxic Granulation Platelet Estimate Large Platelets Giant Platelets Polychromasia Hypochromasia (manual) Anisocytosis (manual) Puncture Site pCO2 pO2 HCO3 ABG pH ABG Total CO2 ABG O2 Saturation ABG Base Excess Lionel Test ABG Potassium A-a O2 Difference Respiratory Index Sodium Chloride Glucose Lactate FiO2 Potassium Carbon Dioxide Anion Gap BUN Creatinine Est GFR ( Amer) Est GFR (Non-Af Amer) POC Glucose (mg/dL) Random Glucose Lactic Acid 1.5 Calcium Phosphorus Magnesium Total Bilirubin AST ALT Alkaline Phosphatase Troponin I 0.0190 Total Protein Albumin Globulin Albumin/Globulin Ratio Arterial Blood Potassium 03/26/18 03/26/18 03/26/18 00:42 04:59 05:59 WBC 13.3 H RBC 2.86 L Hgb 8.8 L Hct 26.4 L MCV 92.1 MCH 30.7 MCHC 33.4 RDW 16.1 H Plt Count 404 H MPV 7.6 Neut % (Auto) 83.7 H Lymph % (Auto) 8.1 L Smith % (Auto) 6.7 Eos % (Auto) 0.9 Baso % (Auto) 0.6 Neut # (Auto) 11.1 H Lymph # (Auto) 1.1 Smith # (Auto) 0.9 H Eos # (Auto) 0.1 Baso # (Auto) 0.1 Neutrophils % (Manual) 79 H Band Neutrophils % 5 H Lymphocytes % (Manual) 8 L Reactive Lymphs % 1 H Monocytes % (Manual) 6 Eosinophils % (Manual) 1 Toxic Granulation Present Platelet Estimate Slightly increased H Large Platelets Present Giant Platelets Present Polychromasia Slight Hypochromasia (manual) Slight Anisocytosis (manual) Slight Puncture Site pCO2 pO2 HCO3 ABG pH ABG Total CO2 ABG O2 Saturation ABG Base Excess Lionel Test ABG Potassium A-a O2 Difference Respiratory Index Sodium Chloride Glucose Lactate FiO2 Potassium Carbon Dioxide Anion Gap BUN Creatinine Est GFR ( Amer) Est GFR (Non-Af Amer) POC Glucose (mg/dL) 121 H 126 H Random Glucose Lactic Acid Calcium Phosphorus Magnesium Total Bilirubin AST ALT Alkaline Phosphatase Troponin I Total Protein Albumin Globulin Albumin/Globulin Ratio Arterial Blood Potassium 03/26/18 05:59 WBC RBC Hgb Hct MCV MCH MCHC RDW Plt Count MPV Neut % (Auto) Lymph % (Auto) Smith % (Auto) Eos % (Auto) Baso % (Auto) Neut # (Auto) Lymph # (Auto) Smith # (Auto) Eos # (Auto) Baso # (Auto) Neutrophils % (Manual) Band Neutrophils % Lymphocytes % (Manual) Reactive Lymphs % Monocytes % (Manual) Eosinophils % (Manual) Toxic Granulation Platelet Estimate Large Platelets Giant Platelets Polychromasia Hypochromasia (manual) Anisocytosis (manual) Puncture Site pCO2 pO2 HCO3 ABG pH ABG Total CO2 ABG O2 Saturation ABG Base Excess Lionel Test ABG Potassium A-a O2 Difference Respiratory Index Sodium 142 Chloride 111 H Glucose Lactate FiO2 Potassium 4.1 Carbon Dioxide 23 Anion Gap 12 BUN 48 H Creatinine 2.9 H Est GFR ( Amer) 26 Est GFR (Non-Af Amer) 21 POC Glucose (mg/dL) Random Glucose 127 H Lactic Acid Calcium 8.6 Phosphorus 3.5 Magnesium 1.9 Total Bilirubin 0.4 AST 25 ALT 31 Alkaline Phosphatase 126 D Troponin I Total Protein 6.5 Albumin 2.7 L Globulin 3.8 Albumin/Globulin Ratio 0.7 L Arterial Blood Potassium Fingerstick Blood Sugar Results: 121
--- NOTE | 2018-03-26 09:43 | CP.PCM.PN ---
Subjective - Date & Time of Evaluation Date of Evaluation: 03/26/18 Time of Evaluation: 09:39 - Subjective Subjective: pt seen and examined on vent non verbal lethargic no overnight events ROS- unable to obtain due to clinical condition Objective - Vital Signs/Intake and Output Vital Signs (last 24 hours): Temp Pulse Resp BP Pulse Ox 98 F 86 29 H 95/46 L 98 03/26/18 04:00 03/26/18 06:00 03/26/18 06:00 03/26/18 05:57 03/26/18 06:00 Intake and Output: 03/26/18 03/26/18 06:59 18:59 Intake Total 500 Output Total 50 Balance 450 - Medications Medications: Current Medications Acetaminophen (Tylenol 325mg Tab) 650 mg PO Q6 PRN PRN Reason: Pain, moderate (4-7) Albuterol/Ipratropium (Duoneb 3 Mg/0.5 Mg (3 Ml) Ud) 3 ml INH RQ6 NEL Last Admin: 03/26/18 08:15 Dose: 3 ml Heparin Sodium (Porcine) (Heparin) 5,000 units SC Q8 NEL Last Admin: 03/22/18 14:18 Dose: 5,000 units Cefepime HCl 1 gm/ Dextrose 50 mls @ 100 mls/hr IVPB Q24H NEL; Protocol Last Admin: 03/25/18 23:15 Dose: 100 mls/hr Insulin Human Regular (Novolin R) 0 unit SC Q6 NEL; Protocol Last Admin: 03/26/18 05:35 Dose: Not Given Nystatin (Nystop Topical Powder) 1 applic TOP BID [facility] Last Admin: 03/25/18 18:20 Dose: 1 applic Pantoprazole Sodium (Protonix Susp) 40 mg GT DAILY [facility] Last Admin: 03/25/18 10:38 Dose: 40 mg Valproate Sodium (Depakene Oral Soln) 250 mg PO BID NEL Last Admin: 03/25/18 18:20 Dose: 250 mg - Labs Labs: 03/26/18 05:59 03/26/18 05:59 PT 12.2 SECONDS (9.7-12.2) 03/23/18 06:01 INR 1.1 03/23/18 06:01 APTT 35 SECONDS (21-34) H 03/23/18 06:01 - Constitutional Appears: Cachectic, Chronically Ill - Head Exam Head Exam: ATRAUMATIC, NORMOCEPHALIC - Eye Exam Eye Exam: EOMI, PERRL - ENT Exam ENT Exam: Mucous Membranes Moist - Respiratory Exam Respiratory Exam: Clear to Ausculation Bilateral. absent: Rhonchi, Wheezes - Cardiovascular Exam Cardiovascular Exam: REGULAR RHYTHM, +S1, +S2 - GI/Abdominal Exam GI & Abdominal Exam: Soft. absent: Tenderness Additional comments: ileostomy - Extremities Exam Extremities Exam: absent: Pedal Edema Additional comments: left AKA - Neurological Exam Neurological Exam: absent: Alert, Awake, Oriented x3 - Skin Skin Exam: Normal Color, Warm Assessment and Plan - Assessment and Plan (Free Text) Assessment: JOY on CKD stage 3- requiring HD now off HD vent dependent resp failure sepsis AKA ? urinary retention off HD cr slightly elevated today- bladder scan done- > 500 [address] cath pt monitor UOP electrolytes acceptable supportive care
[2018-03-26] MEDS: Valproic Acid 250 mg/5 ml UD Cup PO SCH ×2 (10:06→18:33)
[2018-03-26] MEDS: Pantoprazole 40 mg Susp UD GT SCH (10:06)
--- NOTE | 2018-03-26 19:46 | CP.PCM.PN ---
Subjective - Date & Time of Evaluation Date of Evaluation: 03/26/18 Time of Evaluation: 09:45 - Subjective Subjective: clinically same Objective - Vital Signs/Intake and Output Vital Signs (last 24 hours): Temp Pulse Resp BP Pulse Ox 98.3 F 91 H 18 98/57 L 94 L 03/26/18 15:15 03/26/18 15:15 03/26/18 15:15 03/26/18 15:15 03/26/18 15:15 Intake and Output: 03/26/18 03/27/18 18:59 06:59 Intake Total 420 Output Total 500 Balance -80 - Medications Medications: Current Medications Acetaminophen (Tylenol 325mg Tab) 650 mg PO Q6 PRN PRN Reason: Pain, moderate (4-7) Albuterol/Ipratropium (Duoneb 3 Mg/0.5 Mg (3 Ml) Ud) 3 ml INH RQ6 NEL Last Admin: 03/26/18 13:38 Dose: 3 ml Heparin Sodium (Porcine) (Heparin) 5,000 units SC Q8 NEL Last Admin: 03/22/18 14:18 Dose: 5,000 units Cefepime HCl 1 gm/ Dextrose 50 mls @ 100 mls/hr IVPB Q24H NEL; Protocol Last Admin: 03/25/18 23:15 Dose: 100 mls/hr Insulin Human Regular (Novolin R) 0 unit SC Q6 NEL; Protocol Last Admin: 03/26/18 18:33 Dose: 2 units Nystatin (Nystop Topical Powder) 1 applic TOP BID [facility] Last Admin: 03/26/18 18:34 Dose: 1 applic Pantoprazole Sodium (Protonix Susp) 40 mg GT DAILY NEL Last Admin: 03/26/18 10:06 Dose: 40 mg Valproate Sodium (Depakene Oral Soln) 250 mg PO BID NEL Last Admin: 03/26/18 18:33 Dose: 250 mg - Labs Labs: 03/26/18 05:59 03/26/18 05:59 PT 12.2 SECONDS (9.7-12.2) 03/23/18 06:01 INR 1.1 03/23/18 06:01 APTT 35 SECONDS (21-34) H 03/23/18 06:01 - Constitutional Appears: Well - Head Exam Head Exam: ATRAUMATIC, NORMAL INSPECTION, NORMOCEPHALIC - Eye Exam Eye Exam: EOMI, Normal appearance, PERRL Pupil Exam: NORMAL ACCOMODATION, PERRL - ENT Exam ENT Exam: Mucous Membranes Moist, Normal Exam - Neck Exam Neck Exam: Full ROM, Normal Inspection. absent: Lymphadenopathy - Respiratory Exam Respiratory Exam: Decreased Breath Sounds - Cardiovascular Exam Cardiovascular Exam: REGULAR RHYTHM, +S1, +S2 - GI/Abdominal Exam GI & Abdominal Exam: Soft, Diminished Bowel Sounds - Rectal Exam Rectal Exam: Deferred
[2018-03-27] MEDS: (Novolin R) Insulin Human Regular 100 units/ml vial SC SCH ×4 (01:00→18:11)
[2018-03-27] MEDS: Albuterol-Ipratrop 3 mg / 0.5 (3 ml) UD INH SCH ×4 (02:30→19:33)
[2018-03-27 09:43] LABS: BASO # 0.1 K/uL (0.0-0.2); EOS # 0.1 K/uL (0.0-0.7); EOS % 1.3 % (0.0-4.0); HEMOGLOBIN 9.4 g/dL (12.0-18.0); LYMPH # 1.1 K/uL (1.0-4.3); LYMPH % 10.2 % (20.0-40.0); MEAN CELL VOLUME 93.3 fL (80.0-94.0); MEAN CORPUSCULAR HEMOGLOBIN 30.3 pg (27.0-31.0); MEAN CORPUSCULAR HGB CONC 32.5 g/dL (33.0-37.0); MEAN PLATELET VOLUME 7.4 fL (7.2-11.7); MONO # 0.9 K/uL (0.0-0.8); NEUT # 8.9 K/uL (1.8-7.0); NEUT % 79.5 % (50.0-75.0); NRBC % 0.1 % (0.0-2.0); RBC 3.08 Mil/uL (4.40-5.90); RED CELL DISTRIBUTION WIDTH 16.3 % (11.5-14.5); WHITE BLOOD COUNT 11.2 K/uL (4.8-10.8)
[2018-03-27 10:05] LABS: ALB/GLOB RATIO 0.8 (1.0-2.1); ALBUMIN 3.3 g/dL (3.5-5.0); CALCIUM 9.4 mg/dl (8.6-10.4)
[2018-03-27] MEDS: Valproic Acid 250 mg/5 ml UD Cup PO SCH ×2 (11:02→20:37)
[2018-03-27] MEDS: Pantoprazole 40 mg Susp UD GT SCH (11:02)
--- NOTE | 2018-03-27 14:11 | CP.PCM.PN ---
Subjective - Date & Time of Evaluation Date of Evaluation: 03/27/18 Time of Evaluation: 09:45 - Subjective Subjective: clinically same Objective - Vital Signs/Intake and Output Vital Signs (last 24 hours): Temp Pulse Resp BP Pulse Ox 97.8 F 96 H 20 96/51 L 95 03/27/18 08:27 03/27/18 08:27 03/27/18 08:27 03/27/18 08:27 03/27/18 08:27 Intake and Output: 03/27/18 03/27/18 06:59 18:59 Output Total 400 Balance -400 - Medications Medications: Current Medications Acetaminophen (Tylenol 325mg Tab) 650 mg PO Q6 PRN PRN Reason: Pain, moderate (4-7) Albuterol/Ipratropium (Duoneb 3 Mg/0.5 Mg (3 Ml) Ud) 3 ml INH RQ6 NEL Last Admin: 03/27/18 08:00 Dose: 3 ml Heparin Sodium (Porcine) (Heparin) 5,000 units SC Q8 NEL Last Admin: 03/22/18 14:18 Dose: 5,000 units Cefepime HCl 1 gm/ Dextrose 50 mls @ 100 mls/hr IVPB Q24H NEL; Protocol Last Admin: 03/26/18 22:37 Dose: 100 mls/hr Insulin Human Regular (Novolin R) 0 unit SC Q6 NEL; Protocol Last Admin: 03/27/18 13:47 Dose: Not Given Nystatin (Nystop Topical Powder) 1 applic TOP BID [facility] Last Admin: 03/27/18 11:02 Dose: 1 applic Pantoprazole Sodium (Protonix Susp) 40 mg GT DAILY [facility] Last Admin: 03/27/18 11:02 Dose: 40 mg Valproate Sodium (Depakene Oral Soln) 250 mg PO BID [facility] Last Admin: 03/27/18 11:02 Dose: 250 mg - Labs Labs: 03/27/18 09:33 03/27/18 09:33 PT 12.2 SECONDS (9.7-12.2) 03/23/18 06:01 INR 1.1 03/23/18 06:01 APTT 35 SECONDS (21-34) H 03/23/18 06:01 - Constitutional Appears: Well - Head Exam Head Exam: ATRAUMATIC, NORMAL INSPECTION, NORMOCEPHALIC - Eye Exam Eye Exam: EOMI, Normal appearance, PERRL Pupil Exam: NORMAL ACCOMODATION, PERRL - ENT Exam ENT Exam: Mucous Membranes Moist, Normal Exam - Neck Exam Neck Exam: Full ROM, Normal Inspection. absent: Lymphadenopathy - Respiratory Exam Respiratory Exam: Decreased Breath Sounds - Cardiovascular Exam Cardiovascular Exam: REGULAR RHYTHM, +S1, +S2 - GI/Abdominal Exam GI & Abdominal Exam: Soft, Diminished Bowel Sounds - Rectal Exam Rectal Exam: Deferred
[2018-03-27] MEDS ORDERED: Sod Polystyrene Sulf 15 gm/60 ml Susp PO ONE (14:45)
[2018-03-28] MEDS: Albuterol-Ipratrop 3 mg / 0.5 (3 ml) UD INH SCH ×2 (01:14→07:57)
[2018-03-28] MEDS: (Novolin R) Insulin Human Regular 100 units/ml vial SC SCH ×4 (06:25→17:43)
[2018-03-28] MEDS ORDERED: Sod Polystyrene Sulf 15 gm/60 ml Susp PO ONE (10:45)
--- NOTE | 2018-03-28 10:48 | CP.PCM.PN ---
Subjective - Date & Time of Evaluation Date of Evaluation: 03/28/18 Time of Evaluation: 10:47 - Subjective Subjective: pt w/ urinary retention based on bladder scan high k noted. unable to obtain ros Objective - Vital Signs/Intake and Output Vital Signs (last 24 hours): Temp Pulse Resp BP Pulse Ox 98.4 F 102 H 18 118/64 98 03/28/18 08:48 03/28/18 08:48 03/28/18 08:48 03/28/18 08:48 03/28/18 08:48 - Medications Medications: Current Medications Acetaminophen (Tylenol 325mg Tab) 650 mg PO Q6 PRN PRN Reason: Pain, moderate (4-7) Albuterol/Ipratropium (Duoneb 3 Mg/0.5 Mg (3 Ml) Ud) 3 ml INH RQ6 [facility] Last Admin: 03/28/18 07:57 Dose: 3 ml Heparin Sodium (Porcine) (Heparin) 5,000 units SC Q8 [facility] Last Admin: 03/22/18 14:18 Dose: 5,000 units Insulin Human Regular (Novolin R) 0 unit SC Q6 [facility]; Protocol Last Admin: 03/28/18 08:06 Dose: 1 units Nystatin (Nystop Topical Powder) 1 applic TOP BID [facility] Last Admin: 03/27/18 20:38 Dose: 1 applic Pantoprazole Sodium (Protonix Susp) 40 mg GT DAILY [facility] Last Admin: 03/27/18 11:02 Dose: 40 mg Sodium Polystyrene Sulfonate (Kayexalate Susp) 15 gm PO ONCE ONE Stop: 03/28/18 10:46 Valproate Sodium (Depakene Oral Soln) 250 mg PO BID [facility] Last Admin: 03/27/18 20:37 Dose: 250 mg - Labs Labs: 03/27/18 09:33 03/27/18 09:33 PT 12.2 SECONDS (9.7-12.2) 03/23/18 06:01 INR 1.1 03/23/18 06:01 APTT 35 SECONDS (21-34) H 03/23/18 06:01 - Constitutional Appears: No Acute Distress, Cachectic, Chronically Ill - Head Exam Head Exam: NORMAL INSPECTION, NORMOCEPHALIC - Eye Exam Eye Exam: Normal appearance, PERRL - ENT Exam ENT Exam: Mucous Membranes Dry (ng tube) - Neck Exam Neck Exam: Normal Inspection (tracheostomy) - Respiratory Exam Respiratory Exam: Decreased Breath Sounds, NORMAL BREATHING PATTERN - Cardiovascular Exam Cardiovascular Exam: REGULAR RHYTHM, RRR - GI/Abdominal Exam GI & Abdominal Exam: Distended, Soft - Extremities Exam Extremities Exam: Normal Inspection - Neurological Exam Neurological Exam: absent: Alert, Awake - Skin Skin Exam: Dry, Intact Assessment and Plan (1) JOY (acute kidney injury) Status: Acute (2) Afib Status: Acute (3) Anemia Status: Acute (4) CKD (chronic kidney disease) stage 4, GFR 15-29 ml/min Status: Acute (5) Change in mental status Status: Acute (6) Electrolyte imbalance Status: Acute (7) MRSA (methicillin resistant Staphylococcus aureus) septicemia Status: Acute (8) Metabolic acidosis Status: Acute - Assessment and Plan (Free Text) Assessment: poor prognosis, recommend hospice care renal tube feeds geronimo
[2018-03-28] MEDS: Pantoprazole 40 mg Susp UD GT SCH (10:58)
[2018-03-28] MEDS: Valproic Acid 250 mg/5 ml UD Cup PO SCH ×2 (10:59→17:44)
[2018-03-28 12:44] LABS: CALCIUM 9.6 mg/dl (8.6-10.4)
[2018-03-28] MEDS ORDERED: Sod Polystyrene Sulf 15 gm/60 ml Susp NG ONE (13:45)
--- NOTE | 2018-03-28 17:57 | CP.PCM.PN ---
Subjective - Date & Time of Evaluation Date of Evaluation: 03/28/18 Time of Evaluation: 10:30 - Subjective Subjective: clinically same Objective - Vital Signs/Intake and Output Vital Signs (last 24 hours): Temp Pulse Resp BP Pulse Ox 98.4 F 102 H 18 118/64 98 03/28/18 08:48 03/28/18 08:48 03/28/18 08:48 03/28/18 08:48 03/28/18 08:48 - Medications Medications: Current Medications Acetaminophen (Tylenol 325mg Tab) 650 mg PO Q6 PRN PRN Reason: Pain, moderate (4-7) Heparin Sodium (Porcine) (Heparin) 5,000 units SC Q8 [facility] Last Admin: 03/22/18 14:18 Dose: 5,000 units Insulin Human Regular (Novolin R) 0 unit SC Q6 [facility]; Protocol Last Admin: 03/28/18 17:43 Dose: Not Given Nystatin (Nystop Topical Powder) 1 applic TOP BID [facility] Last Admin: 03/28/18 10:58 Dose: 1 applic Pantoprazole Sodium (Protonix Susp) 40 mg GT DAILY [facility] Last Admin: 03/28/18 10:58 Dose: 40 mg Valproate Sodium (Depakene Oral Soln) 250 mg PO BID [facility] Last Admin: 03/28/18 17:44 Dose: 250 mg - Labs Labs: 03/27/18 09:33 03/28/18 11:56 PT 12.2 SECONDS (9.7-12.2) 03/23/18 06:01 INR 1.1 03/23/18 06:01 APTT 35 SECONDS (21-34) H 03/23/18 06:01 - Constitutional Appears: Well - Head Exam Head Exam: ATRAUMATIC, NORMAL INSPECTION, NORMOCEPHALIC - Eye Exam Eye Exam: EOMI, Normal appearance, PERRL Pupil Exam: NORMAL ACCOMODATION, PERRL - ENT Exam ENT Exam: Mucous Membranes Moist, Normal Exam - Neck Exam Neck Exam: Full ROM, Normal Inspection. absent: Lymphadenopathy - Respiratory Exam Respiratory Exam: Decreased Breath Sounds - Cardiovascular Exam Cardiovascular Exam: REGULAR RHYTHM, +S1, +S2 - GI/Abdominal Exam GI & Abdominal Exam: Soft, Diminished Bowel Sounds - Rectal Exam Rectal Exam: Deferred Assessment and Plan (1) Sepsis Status: Acute (2) JOY (acute kidney injury) Status: Acute (3) Afib Status: Acute (4) Anemia Status: Acute (5) Bilateral hydronephrosis Status: Acute (6) CKD (chronic kidney disease) stage 4, GFR 15-29 ml/min Status: Acute (7) Change in mental status Status: Acute (8) Electrolyte imbalance Status: Acute (9) MRSA (methicillin resistant Staphylococcus aureus) septicemia Status: Acute (10) Metabolic acidosis Status: Acute (11) NSTEMI (non-ST elevated myocardial infarction) Status: Acute (12) Prophylactic measure Status: Acute (13) UTI (urinary tract infection) Status: Acute (14) CHF (congestive heart failure) Status: Chronic (15) CKD (chronic kidney disease) Status: Chronic (16) Dementia Status: Chronic (17) Diabetes mellitus Status: Chronic - Assessment and Plan (Free Text) Plan: high k seen by renal hospice pt is dnr dni poor orgnosis discussed [place] public guardian castillo consultation followup med reivweed
[2018-03-29] MEDS: (Novolin R) Insulin Human Regular 100 units/ml vial SC SCH ×4 (00:49→17:29)
[2018-03-29 00:51] VITALS: RESP 20
--- NOTE | 2018-03-29 08:47 | RAD ---
Date of service: 03/29/2018 HISTORY: NG tube placement COMPARISON: 03/20/2018 FINDINGS: LUNGS: Lines and tubes in stable position. Hyperinflation suggestive for COPD and or emphysematous changes. Diffuse increased interstitial lung markings. Few scattered upper lobe granulomatous changes. PLEURA: No significant pleural effusion identified, no pneumothorax apparent. CARDIOVASCULAR: Aortic atherosclerotic calcification present. Normal cardiac size. OSSEOUS STRUCTURES: No significant abnormalities. VISUALIZED UPPER ABDOMEN: Normal. OTHER FINDINGS: None. IMPRESSION: Lines and tubes in stable position. Hyperinflation suggestive for COPD and or emphysematous changes. Diffuse increased interstitial lung markings.
[2018-03-29] MEDS: Valproic Acid 250 mg/5 ml UD Cup PO SCH ×2 (10:39→17:28)
[2018-03-29] MEDS: Pantoprazole 40 mg Susp UD GT SCH (10:39)
[2018-03-29] MEDS ORDERED: Sod Polystyrene Sulf 15 gm/60 ml Susp PO ONE ×2 (11:00→12:15)
--- NOTE | 2018-03-29 11:02 | CP.PCM.PN ---
Subjective - Date & Time of Evaluation Date of Evaluation: 03/29/18 Time of Evaluation: 11:00 - Subjective Subjective: seen and examined labs noted unable to provide ros Objective - Vital Signs/Intake and Output Vital Signs (last 24 hours): Temp Pulse Resp BP Pulse Ox 99.9 F H 110 H 20 110/61 95 03/29/18 07:00 03/29/18 07:00 03/29/18 07:00 03/29/18 07:00 03/29/18 07:00 Intake and Output: 03/29/18 03/29/18 06:59 18:59 Intake Total 280 Output Total 650 Balance -370 - Medications Medications: Current Medications Acetaminophen (Tylenol 325mg Tab) 650 mg PO Q6 PRN PRN Reason: Pain, moderate (4-7) Heparin Sodium (Porcine) (Heparin) 5,000 units SC Q8 [facility] Last Admin: 03/22/18 14:18 Dose: 5,000 units Insulin Human Regular (Novolin R) 0 unit SC Q6 [facility]; Protocol Last Admin: 03/29/18 06:07 Dose: 1 unit Nystatin (Nystop Topical Powder) 1 applic TOP BID [facility] Last Admin: 03/29/18 10:40 Dose: 1 applic Pantoprazole Sodium (Protonix Susp) 40 mg GT DAILY [facility] Last Admin: 03/29/18 10:39 Dose: 40 mg Sodium Polystyrene Sulfonate (Kayexalate Susp) 30 gm PO ONCE ONE Stop: 03/29/18 11:01 Valproate Sodium (Depakene Oral Soln) 250 mg PO BID [facility] Last Admin: 03/29/18 10:39 Dose: 250 mg - Labs Labs: 03/27/18 09:33 03/28/18 11:56 PT 12.2 SECONDS (9.7-12.2) 03/23/18 06:01 INR 1.1 03/23/18 06:01 APTT 35 SECONDS (21-34) H 03/23/18 06:01 - Constitutional Appears: No Acute Distress, Older Than Stated Age, Cachectic, Chronically Ill - Head Exam Head Exam: NORMAL INSPECTION, NORMOCEPHALIC - Eye Exam Eye Exam: Normal appearance - ENT Exam ENT Exam: Mucous Membranes Dry - Neck Exam Neck Exam: Normal Inspection (tracheostomy) - Respiratory Exam Respiratory Exam: Decreased Breath Sounds, NORMAL BREATHING PATTERN - Cardiovascular Exam Cardiovascular Exam: REGULAR RHYTHM, RRR - GI/Abdominal Exam GI & Abdominal Exam: Distended, Soft - Extremities Exam Extremities Exam: Normal Inspection - Neurological Exam Neurological Exam: absent: Alert, Awake - Skin Skin Exam: Dry, Intact Assessment and Plan (1) JOY (acute kidney injury) Status: Acute (2) Afib Status: Acute (3) Anemia Status: Acute (4) CKD (chronic kidney disease) stage 4, GFR 15-29 ml/min Status: Acute (5) Change in mental status Status: Acute (6) Electrolyte imbalance Status: Acute (7) MRSA (methicillin resistant Staphylococcus aureus) septicemia Status: Acute (8) Metabolic acidosis Status: Acute - Assessment and Plan (Free Text) Assessment: kayexelate ordered not a candidate for hd, medical management advised recommend palliative / hospice care
--- NOTE | 2018-03-29 16:14 | CP.PCM.PN ---
Subjective - Date & Time of Evaluation Date of Evaluation: 03/29/18 Time of Evaluation: 10:00 - Subjective Subjective: clinically same Objective - Vital Signs/Intake and Output Vital Signs (last 24 hours): Temp Pulse Resp BP Pulse Ox 100.2 F H 113 H 20 125/64 94 L 03/29/18 15:30 03/29/18 15:30 03/29/18 15:30 03/29/18 15:30 03/29/18 15:30 Intake and Output: 03/29/18 03/29/18 06:59 18:59 Intake Total 280 360 Output Total 650 310 Balance -370 50 - Medications Medications: Current Medications Acetaminophen (Tylenol 325mg Tab) 650 mg PO Q6 PRN PRN Reason: Pain, moderate (4-7) Heparin Sodium (Porcine) (Heparin) 5,000 units SC Q8 [facility] Last Admin: 03/22/18 14:18 Dose: 5,000 units Insulin Human Regular (Novolin R) 0 unit SC Q6 [facility]; Protocol Last Admin: 03/29/18 12:32 Dose: 1 unit Nystatin (Nystop Topical Powder) 1 applic TOP BID [facility] Last Admin: 03/29/18 10:40 Dose: 1 applic Pantoprazole Sodium (Protonix Susp) 40 mg GT DAILY [facility] Last Admin: 03/29/18 10:39 Dose: 40 mg Valproate Sodium (Depakene Oral Soln) 250 mg PO BID [facility] Last Admin: 03/29/18 10:39 Dose: 250 mg - Labs Labs: 03/27/18 09:33 03/28/18 11:56 PT 12.2 SECONDS (9.7-12.2) 03/23/18 06:01 INR 1.1 03/23/18 06:01 APTT 35 SECONDS (21-34) H 03/23/18 06:01 - Constitutional Appears: Well - Head Exam Head Exam: ATRAUMATIC, NORMAL INSPECTION, NORMOCEPHALIC - Eye Exam Eye Exam: EOMI, Normal appearance, PERRL Pupil Exam: NORMAL ACCOMODATION, PERRL - ENT Exam ENT Exam: Mucous Membranes Moist, Normal Exam - Neck Exam Neck Exam: Full ROM, Normal Inspection. absent: Lymphadenopathy - Respiratory Exam Respiratory Exam: Decreased Breath Sounds - Cardiovascular Exam Cardiovascular Exam: REGULAR RHYTHM, +S1, +S2 - GI/Abdominal Exam GI & Abdominal Exam: Soft, Diminished Bowel Sounds - Rectal Exam Rectal Exam: Deferred Assessment and Plan (1) Sepsis Status: Acute (2) JOY (acute kidney injury) Status: Acute (3) Afib Status: Acute (4) Anemia Status: Acute (5) Bilateral hydronephrosis Status: Acute (6) CKD (chronic kidney disease) stage 4, GFR 15-29 ml/min Status: Acute (7) Change in mental status Status: Acute (8) Electrolyte imbalance Status: Acute (9) MRSA (methicillin resistant Staphylococcus aureus) septicemia Status: Acute (10) Metabolic acidosis Status: Acute (11) NSTEMI (non-ST elevated myocardial infarction) Status: Acute (12) Prophylactic measure Status: Acute (13) UTI (urinary tract infection) Status: Acute (14) CHF (congestive heart failure) Status: Chronic (15) CKD (chronic kidney disease) Status: Chronic (16) Dementia Status: Chronic (17) Diabetes mellitus Status: Chronic - Assessment and Plan (Free Text) Plan: Patient is very sickand discussed with the public guardian before discussed with the surgical doctor today Also discussed with the kidney and other consultations patient on Zyvox With the poor prognosis patient is DNR/DNI Follow-up with the multiple consultation As ordered
[2018-03-29] MEDS ORDERED: Acetaminophen 650mg/20.3ml solution UD NG STA (16:33)
[2018-03-30] MEDS: (Novolin R) Insulin Human Regular 100 units/ml vial SC SCH ×2 (00:47→06:08)
[2018-03-30] MEDS ORDERED: Acetaminophen 650mg/20.3ml solution UD PO ONE (00:57)
[2018-03-30 01:51] LABS: URINE BACTERIA MOD (<OCC); URINE BILIRUBIN NEGATIVE (NEGATIVE); URINE BLOOD 3+ (NEGATIVE); URINE CLARITY Turbid (Clear); URINE COLOR Red (YELLOW); URINE GLUCOSE (UA) NORMAL (Normal); URINE LEUKOCYTE ESTERASE 2+ Leu/uL (Negative); URINE PROTEIN 2+ mg/dL (NEGATIVE); URINE UROBILINOGEN NORMAL mg/dL (0.2-1.0); WBC CLUMPS MANY /hpf
[2018-03-30] MEDS ORDERED: Piperacill/Tazo 2.25gm in Dex 2.25 GM/50 ML BAG IVPB STA (05:36)
[2018-03-30] MEDS ORDERED: Acetaminophen 650mg/20.3ml solution UD GT PRN (06:25)
--- NOTE | 2018-03-30 07:39 | RAD ---
Date of service: 03/30/2018 HISTORY: fever COMPARISON: Portable chest 03/29/2018. FINDINGS: LUNGS: Prior right central venous dialysis catheter unchanged in position as well as nasogastric tube. Left hemidiaphragm appears slightly elevated with limited atelectasis or patchy airspace disease developing in the left base. Remaining lung sam are clear otherwise. PLEURA: No significant pleural effusion identified, no pneumothorax apparent. CARDIOVASCULAR: Calcific atherosclerotic changes are seen related to the thoracic aorta. Normal cardiac size. No pulmonary vascular congestion. OSSEOUS STRUCTURES: No significant abnormalities. VISUALIZED UPPER ABDOMEN: Normal. OTHER FINDINGS: None. IMPRESSION: Left hemidiaphragm is mildly elevated with patchy atelectasis or infiltrate developing at the left base. Remaining lung sam clear.
[2018-03-30 08:22] VITALS: BP 94/52; PULSE 131; TEMP 99.1; O2SAT 99
== END 2018-03-30 10:31 | DRG 853 ==
LOC: C.ER 15:24 → C.9E 16:49 → C.9I 17:13 → C.6T 03-26 14:26
PROVIDERS: ADMIT Internal Medicine Nephrology; ATTEND Internal Medicine Nephrology
PROC: 02HV33Z Insertion of Infusion Device into Superior Vena Cava, Percutaneous Approach (ICD-10-PCS; 2018-03-14)
PROC: 02HV33Z Insertion of Infusion Device into Superior Vena Cava, Percutaneous Approach (ICD-10-PCS; 2018-03-15)
PROC: 0BH17EZ Insertion of Endotracheal Airway into Trachea, Via Natural or Artificial Opening (ICD-10-PCS; 2018-03-15)
PROC: 5A1955Z Respiratory Ventilation, Greater than 96 Consecutive Hours (ICD-10-PCS; 2018-03-15)
PROC: 5A1D70Z Performance of Urinary Filtration, Intermittent, Less than 6 Hours Per Day (ICD-10-PCS; 2018-03-15)
PROC: 04CL3ZZ Extirpation of Matter from Left Femoral Artery, Percutaneous Approach (ICD-10-PCS; principal; 2018-03-15 15:00)
PROC: 30233N1 Transfusion of Nonautologous Red Blood Cells into Peripheral Vein, Percutaneous Approach (ICD-10-PCS; 2018-03-18)
PROC: 0Y6D0Z1 Detachment at Left Upper Leg, High, Open Approach (ICD-10-PCS; 2018-03-25)
DX: A41.9 Sepsis, unspecified organism (principal); L89.154 Pressure ulcer of sacral region, stage 4; E10.10 Type 1 diabetes mellitus with ketoacidosis without coma; R65.21 Severe sepsis with septic shock; J96.01 Acute respiratory failure with hypoxia; N39.0 Urinary tract infection, site not specified; I13.0 Hypertensive heart and chronic kidney disease with heart failure and stage 1 through stage 4 chronic kidney disease, or unspecified chronic kidney disease; N17.9 Acute kidney failure, unspecified; N18.4 Chronic kidney disease, stage 4 (severe); E11.52 Type 2 diabetes mellitus with diabetic peripheral angiopathy with gangrene; I74.5 Embolism and thrombosis of iliac artery; E87.2 Acidosis; E87.5 Hyperkalemia; F02.80 Dementia in other diseases classified elsewhere, unspecified severity, without behavioral disturbance, psychotic disturbance, mood disturbance, and anxiety; G30.9 Alzheimer's disease, unspecified; F20.9 Schizophrenia, unspecified; F41.9 Anxiety disorder, unspecified; I71.4 Abdominal aortic aneurysm, without rupture; Z79.4 Long term (current) use of insulin; I50.9 Heart failure, unspecified; I48.91 Unspecified atrial fibrillation; Z66 Do not resuscitate; D63.1 Anemia in chronic kidney disease